=== PATIENT | male | born 1965 | race Caucasian/White ===

== ENCOUNTER → 2019-08-01 08:44 | Outpatient (CLI) | payer BC, OTHER, SELFPAY ==
--- NOTE | ~2019-08-01 | MR_ITS ---
EXAMINATION: MR thoracic spine wo con DATE: 08/01/2019 09:21 INDICATION: Thoracic back pain. TECHNIQUE: Magnetic resonance imaging (MRI) of the thoracic spine was performed without intravenous c ontrast. Sagittal localizer T1-weighted FSE of the cervical spine was obtained. Thoracic spine sequen brittney included sagittal T2-weighted FSE, sagittal T1-weighted FSE, sagittal T2-weighted FS FSE, and axi al T2-weighted FSE. COMPARISON: None FINDINGS: Bone alignment is normal. There are Schmorl's nodes from T7-T8 through T11-T12. There is mi ld chronic anterior wedging of T11 vertebral body. There is mildly decreased disc height at T5-T6 and T11-T12. At T2-T3, there is a right central protrusion with mild central canal stenosis. At T3-T4, t here is a left central protrusion with mild central canal stenosis. At T4-T5, there is a left central protrusion with mild central canal stenosis. At T5-T6, the disc is bulging with mild central canal s tenosis. At T6-T7, there is a left central protrusion with mild central canal stenosis. At T8-T9, the re is a left central extrusion with mild central canal stenosis. At T9-T10, there is a right central protrusion with mild central canal stenosis. There is multilevel facet joint osteoarthritis, moderate on the left from T2-T3 through T4-T5. There is multilevel mild neural foraminal stenosis bilaterally . The spinal cord signal intensity is normal. IMPRESSION: 1. Mild thoracic spondylosis. Reviewed, dictated and finalized at location A. CONDITIONING SPECIALIST
== END ==
PROVIDERS: PCP Internal Medicine
DX: M47.894 Other spondylosis, thoracic region (principal)
CPT/HCPCS: 72146

== ENCOUNTER 2023-02-27 13:03 | Outpatient (CLI) | payer OTHER, SELFPAY ==
--- NOTE | ~2023-02-27 | CT_ITS ---
EXAMINATION:CT diagnostic chest wo con DATE: 02/27/2023 13:37 INDICATION: Asbestosis exposure. TECHNIQUE: Computed tomography (CT) of the chest was performed without intravenous contrast. Automate d exposure control and iterative reconstruction technique were employed. The dose-length product (DLP ) was 223.72 mGy-cm. COMPARISON: None. FINDINGS: There is mild scarring at the lung apices. No pleural effusion. The heart size is normal. N o pericardial effusion. There is severe cervical spondylosis and mild thoracic spondylosis. IMPRESSION: 1. Mild scarring at the lung apices. Reviewed, dictated and finalized at location A.
== END 2023-02-27 13:04 | disposition home or self-care (01) ==
PROVIDERS: PCP Internal Medicine; Visit Provider Internal Medicine
DX: Z77.090 Contact with and (suspected) exposure to asbestos (principal)
CPT/HCPCS: 71250

== ENCOUNTER 2024-06-21 23:24 | Emergency (ER) | payer MEDICARE, OTHER, SELFPAY ==
[2024-06-21 23:28] VITALS: BP 172/96; PULSE 74; RESP 18; TEMP 36.3; O2SAT 99
--- NOTE | 2024-06-22 00:08 | ED.FALL ---
HPI - Fall General Chief Complaint: Fall Stated Complaint: fall Time Seen by Provider: 06/21/24 23:55 Source: patient Mode of arrival: ambulatory Limitations: no limitations History of Present Illness HPI Narrative: This is a 58-year-old male who presents to the ED for chief complaint of a fall that occurred this evening when leaving a wedding. Patient reports history of MS and has chronic gait instability with this. States that he stumbled on the gravel and fell face 1st. Reports laceration and swelling to the left superior eyebrow region but no LOC. Denies numbness, weakness, vision change, dizziness or any further sites of pain or injury. Does not take blood thinners. States tetanus is up-to-date Review of Systems Review of Systems: All systems as dictated in [facility] Social History Social History Smoking status: Never smoker Alcohol intake: never Exam Narrative: GENERAL: Well-appearing, well-nourished, and in no acute distress. HEAD: Normocephalic, atraumatic. EYES: PERRLA and EOMI. ENT: Nares clear, no rhinorrhea or epistaxis. Mucous membranes moist. Oropharynx without tonsillar hypertrophy exudate or other lesions. NECK: Supple. No adenopathy or masses. CHEST: No respiratory distress. Clear to auscultation. No wheezes rales or rhonchi HEART: Regular rate and rhythm. No murmur heard. Normal peripheral pulses. ABDOMEN: Soft, nontender, nondistended, normal active bowel sounds. MSK: Normal range of motion. No edema. SKIN: 1.5 cm laceration to the left superior eyebrow region. Bleeding controlled on arrival. NEURO: Alert and oriented x4. No focal deficits. PSYCH: Normal mood and affect. Course Vital Signs Vital signs: Vital Signs Temperature 97.3 F L 06/21/24 23:28 Pulse Rate 74 06/21/24 23:28 Respiratory Rate 18 06/21/24 23:28 Blood Pressure 172/96 H 06/21/24 23:28 Pulse Oximetry 99 06/21/24 23:28 Oxygen Delivery Room Air 06/21/24 23:28 Temperature 97.3 F L 06/21/24 23:28 Pulse Rate 74 06/21/24 23:28 Respiratory Rate 18 06/21/24 23:28 Blood Pressure 172/96 H 12/28/24 23:28 Pulse Oximetry 99 06/21/24 23:28 Oxygen Delivery Room Air 06/21/24 23:28 Procedures Laceration Laceration 1: Date: 06/22/24 Time: 00:23 Site: face Side (If applicable): left Size (cm): 1.5 Description: linear Depth: simple, single layer Local Anesthetic: none Pre-repair: wound explored, irrigated extensively and deep structures intact ====== Skin Level ====== Skin layer closed with: dermabond and steri strips Number of sutures: 2 ====== Subcutaneous Layer ====== ====== Muscle Layer ====== ====== Tendon Layer ====== MDM - Fall MDM Narrative Medical decision making narrative: This is a 58-year-old male who presents to the ED for chief complaint of laceration to the head with head injury today. Vitals show mildly elevated blood pressure but otherwise normal. Patient is requesting to avoid sutures today. The wound was well cleansed and irrigated here. His tetanus is up-to-date. Closed primarily with Steri-Strips and Dermabond. Patient will be discharged in stable condition. Supportive measures discussed and return precautions given. Patient is understanding and agreeable with plan for discharge with PCP follow-up. Discharge Plan Discharge Clinical Impression: Laceration of head Patient Disposition: Home, Self-Care Condition: Stable Instructions: Antibiotic Form, Laceration (ED) Additional Instructions: Keep wound clean and dry. Do not soak, take baths, or swim until wound is completely healed. If any signs of infection such as redness, swelling, increasing pain, drainage of purulent discharge, streaks up your extremity develop, seek medical attention immediately. Patient Language: Colombian Follow-up/Referrals: Kristie,Mick Camargo MD [Primary Care Provider] - Time of Disposition: 00:12
[2024-06-22 01:04] VITALS: BP 167/84; PULSE 71; RESP 16; TEMP 36.7; O2SAT 99
--- OUTSIDE RECORDS SUMMARY | 2024-06-29 00:10 | XMS_ITS | Encounter Summary ---
Author Organization [facility] Address [address] [place] [address]. [place], [place] [id number] [place] [id number] Care Team Providers Care Shearer Screen Measurer And Trimmer Name Role Phone Mick Flowers MD Primary Care Provider [phone] Reason for Referral * Imaging (Routine) - Closed Specialty Diagnoses / Procedures Referred By Christy elizabeth Referred To Contact RADIOLOGY Diagnoses Benign essential hypertension Mixed hyperlipidemia Procedures USV CAROTID DUPLEX JEFFERY USV CAROTID DUPLEX JEFFERY USV CAROTID DUPLEX JEFFERY Mick Flowers MD [address] [place] [id number] Phone: tel: fax: Referral ID Status Reason Start Date Expiration Date Visits Re quested Visits Authorized [id number] Closed 09/04/2023 09/03/2024 1 1 Reason for Visit * Imaging (Routine) - Closed Specialty Diagnoses / Procedures Referred By Contac glenn Referred To Contact RADIOLOGY Diagnoses Benign essential hypertension Mixed hyperlipidemia Procedures USV CAROTID DUPLEX JEFFERY USV CAROTID DUPLEX JEFFERY USV CAROTID DUPLEX JEFFERY Mick Flowers MD [address] [place] [id number] Phone: tel: fax: Referral ID Status Reason Start Date Expiration Date Visits Re quested Visits Authorized [id number] Closed 09/04/2023 09/03/2024 1 1 Encounter Details Date Type Department Care Team (Latest Contact Info) Description 09/18/2023 3:25 PM CDT - 09/18/2023 11:59 PM CDT Hospital Encounter [facility] [address] Mick Flowers MD [address] [place] [address] Discharge Disposition: Home or Self Care (Routine Discharge) Social History Tobacco Use Types Packs/Day Years Used Date Smoking Tobacco: Never Smokeless Tobacco: Never Alcohol Use Standard Drinks/Week Comments Yes 0 (1 standard drink = 0.6 oz pur e alcohol) couple drinks on the weeknd AUDIT-C Answer Date Recorded Frequency of Alcohol Consumption 4 or more times a week 10/07/2018 Average Number of Drinks 3 or 4 019 Frequency of Binge Drinking Weekly 09/23 PHQ-2 Answer Date Recorded Patient Health Questionnaire-2 Score 0 09/04/2023 Sex and Gender Information Value Date Recorded Sex Assigned at Male 10/07/2018 11:33 AM CDT Legal Sex Male 9:27 PM CDT Gender Identity Male 10/07/2018 11:33 AM CDT Sexual Orientation Straight 10/07/2018 11 :33 AM CDT documented as of this encounter Medications at Time of Discharge Alprostadil, Vasodilator, (EDEX) 20 MCG KitIndications:Erec tile dysfunction, unspecified erectile dysfunction type 1 mL by Intracavernosal route as needed. 10-30 minutes prior to intercourse 30 kit 1 3 famotidine (PEPCID) 20 MG tabletIndications:G astroesophageal reflux disease, unspecified whether esophagitis present Take 1 tablet (20 mg total) by mouth 2 (two) times daily. 180 tablet 3 3 hydroCHLOROthiazide (HYDRODIURIL) 25 MG tabletIndications:B enign essential hypertension take 1 tablet every morning 90 tablet 3 4 hyoscyamine 0.125 MG SL tablet DISSOLVE 1 TABLET UNDER THE TONGUE EVERY 6 HOURS NEEDED 1 Insulin Syringe-Needle U-100 (INSULIN SYRINGE .5CC/28G) 28G X 1/2 0.5 ML MiscIndications:Ere ctile dysfunction, unspecified erectile dysfunction type 1 Units by Other route as needed. 100 each 3 OnabotulinumtoxinA (BOTOX IJ)Indications:Over active Bladder Inject as directed every 6 (six) months. Indications: Overactive Bladder urea (CARMOL) 40 % CreamIndications:Ec zema APPLY AND RUB IN A THIN FILM TO AFFECTED AREA(S) DAILY. 198.4 g 5 3 ALPRAZolam (XANAX) 0.5 MG tabletIndications:A nxiety TAKE 1 TABLET THREE TIMES A DAY NEEDED 60 tablet 4 10/05/19 24 amitriptyline (ELAVIL) 25 MG tabletIndications:T horacic spondylosis Take 1 tablet (25 mg total) by mouth 2 (two) times a day. 180 tablet 3 3 11/12/19 24 atorvastatin (LIPITOR) 40 MG tabletIndications:M ixed hyperlipidemia Take 1 tablet (40 mg total) by mouth nightly at bedtime. 90 tablet 3 3 10/15/19 24 felodipine ER (PLENDIL) 5 MG 24 hr tabletIndications:B enign essential hypertension Take 2 tablets (10 mg total) by mouth daily. 180 tablet 3 3 11/05/19 24 potassium chloride CR (K-TAB) 20 MEQ tabletIndications:E susan Take 1 tablet (20 mEq total) by mouth daily. 90 tablet 3 3 10/05/19 24 valsartan (DIOVAN) 320 MG tabletIndications:B enign essential hypertension TAKE 1 TABLET(320 MG) BY MOUTH DAILY 90 tablet 3 3 11/12/19 24 documented as of this encounter Progress Notes * Mick Flowers MD - 09/18/2023 4:00 PM CDT Minimal narrowing, not clinically significant. No further testing necessary. documented in this encounter Plan of Treatment Upcoming Encounters Date Type Department Care Team (Late st Contact Info) Description 09/09/2024 10:00 AM CDT Office Visit [facility] [address] [phone] Mick Flowers MD [address] [place] [address] documented as of this encounter Procedures Procedure Name Priority Date/Time Associated Diagnosis Comments USV CAROTID DUPLEX JEFFERY Routine 09/18/2023 3:47 PM CDT Benign essential hypertension Mixed hyperlipidemia documented in this encounter Results * USV CAROTID DUPLEX JEFFERY (09/18/2023 3:47 PM CDT) Anatomical Region Laterality Modality Neck Vascular Ultraso und 09/18/2023 3:32 PM CDT Narrative 09/18/2023 4:06 PM CDT ?CAROTID ARTERY DUPLEX IMAGING ? VASCULAR LAB Pat.Name: ??MARITA EMERY ?Pat.ID: ?[id number] ? St.Date: ?? 09/18/2023 ? Exam Time: 3:32:00 PM ? Study Type:KAMAR VS Duplex Carotid BIDOB ??Age: ??1965,57Y ? Sex: ? M ? Sonogrphr: KADE Aponte ? Pat. Stat.:Outpatient ? History / Clinical:HTN; PMH- colon CA, HLD, no prior Procedures: Vega scale, Color Doppler imaging, Doppler Spectral Analysis Race: ?W ? ++++++++++++++++++++++++++++++++++++ SUMMARY: ++++++++++++++++++++++++++++++++++++ Lovely ICA Stenosis Criteria: ?? >50% = PSV >160 and/or Ratio 2.0-4.0; ? >70% = PSV >325 and/or Ratio >4.0; ? >80% = PSV >325 with EDV >140 ? (for CCA, ECA, Subc: ?? >50% = PSV >200, Ratio >2.0; ?? for Vert: ??>50% = PSV >150, Ratio >2.2) ? STENT Criteria: ??>50% = PSV >220 and/or Ratio >2.7; ? >80% = PSV >340 and/or Ratio >4.1 Brachial waveforms are symmetrical bilaterally, with triphasic flow. The right subclavian artery is not assessed. ??The left subclavian artery is not assessed. Right side: ??The right bifurcation-internal carotid artery has minor, heterogeneous plaque. ??Internal carotid maximum velocity is 84 cm/s, with a ratio of 0.988 . ??The common carotid artery has no plaque present. ??The external carotid artery has no plaque proximally. Vertebral artery flow is antegrade. ??No defined ulceration noted. Left side: ??The left bifurcation-internal carotid artery has mild, heterogeneous plaque. ??Internal carotid maximum velocity is 72 cm/s , with a ratio of 0.935 . ??The common carotid artery has no plaque present. ??The external carotid artery has minor plaque proximally. Vertebral artery flow is antegrade. ??No defined ulceration noted. CONCLUSION: The right internal carotid shows 1-49% stenosis. ??Right vertebral artery is antegrade. ?? No evidence of ulceration. The left internal carotid shows 1-49% stenosis. ??Left vertebral artery is antegrade. ?? No evidence of ulceration. Recommend follow up PRN, at physician discretion.. ?? ++++++++++++++++++++++++++++++++++++ MEASUREMENTS: ++++++++++++++++++++++++++++++++++++ ?DOPPLER Right Prox CCA ?? Prox CCA PSV ? 101 cm/s ? Right Dist CCA ?? Dist CCA PSV ?85 cm/s ? Right Prox ICA ?? Prox ICA PSV ?84 cm/s ? Right Mid ICA ?? Mid ICA PSV ? 76 cm/s ? Right Dist ICA ?? Dist ICA PSV ?62 cm/s ? Right Prox ECA ?? Prox ECA PSV ?71 cm/s ? Right Vertebral ?? Vertebral PSV ? 34 cm/s ? Right ICA/CCA RATIO ?? ICA/CCA RATIO P 0.988 ? Left Prox CCA ?? Prox CCA PSV ? 114 cm/s ? Left Dist CCA ?? Dist CCA PSV ?77 cm/s ? Left Prox ICA ?? Prox ICA PSV ?51 cm/s ? Left Mid ICA ?? Mid ICA PSV ? 72 cm/s ? Left Dist ICA ?? Dist ICA PSV ?56 cm/s ? Left Prox ECA ?? Prox ECA PSV ?52 cm/s ? Left Vertebral ?? Vertebral PSV ? 52 cm/s ? Left ICA/CCA RATIO ?? ICA/CCA RATIO P 0.935 ? <Electronic Signature> 09/18/2023 04:06 PM Cole Panda M.D. Procedure Note Cole Panda MD - 09/18/2023 CAROTID ARTERY DUPLEX IMAGING VASCULAR LAB Pat.Name: MARITA EMERY Pat.ID: [id number] .Date: 09/18/2023 Exam Time: 3:32:00 PM Study Type:KAMAR VS Duplex Carotid BIDOB Age: 3 1965,57Y Sex: M Sonogrphr: KADE Aponte Pat. Stat.:Outpatient History / Clinical:HTN; PMH- colon CA, HLD, no prior Procedures: Vega scale, Color Doppler imaging, Doppler Spectral Analysis Race: W ++++++++++++++++++++++++++++++++++++ SUMMARY: ++++++++++++++++++++++++++++++++++++ Lovely ICA Stenosis Criteria: >50% = PSV >160 and/or Ratio 2.0-4.0; >70% = PSV >325 and/or Ratio >4.0; >80% = PSV >325 with EDV >140 (for CCA, ECA, Subc: >50% = PSV >200, Ratio >2.0; for Vert: >50% = PSV >150, Ratio >2.2) STENT Criteria: >50% = PSV >220 and/or Ratio >2.7; >80% = PSV >340 and/or Ratio >4.1 Brachial waveforms are symmetrical bilaterally, with triphasic flow. The right subclavian artery is not assessed. The left subclavian artery is not assessed. Right side: The right bifurcation-internal carotid artery has minor, heterogeneous plaque. Internal carotid maximum velocity is 84 cm/s, with a ratio of 0.988 . The common carotid artery has no plaque present. The external carotid artery has no plaque proximally. Vertebral artery flow is antegrade. No defined ulceration noted. Left side: The left bifurcation-internal carotid artery has mild, heterogeneous plaque. Internal carotid maximum velocity is 72 cm/s , with a ratio of 0.935 . The common carotid artery has no plaque present. The external carotid artery has minor plaque proximally. Vertebral artery flow is antegrade. No defined ulceration noted. CONCLUSION: The right internal carotid shows 1-49% stenosis. Right vertebral artery is antegrade. No evidence of ulceration. The left internal carotid shows 1-49% stenosis. Left vertebral artery is antegrade. No evidence of ulceration. Recommend follow up PRN, at physician discretion.. ++++++++++++++++++++++++++++++++++++ MEASUREMENTS: ++++++++++++++++++++++++++++++++++++ DOPPLER Right Prox CCA Prox CCA PSV 101 cm/s Right Dist CCA Dist CCA PSV 85 cm/s Right Prox ICA Prox ICA PSV 84 cm/s Right Mid ICA Mid ICA PSV 76 cm/s Right Dist ICA Dist ICA PSV 62 cm/s Right Prox ECA Prox ECA PSV 71 cm/s Right Vertebral Vertebral PSV 34 cm/s Right ICA/CCA RATIO ICA/CCA RATIO P 0.988 Left Prox CCA Prox CCA PSV 114 cm/s Left Dist CCA Dist CCA PSV 77 cm/s Left Prox ICA Prox ICA PSV 51 cm/s Left Mid ICA Mid ICA PSV 72 cm/s Left Dist ICA Dist ICA PSV 56 cm/s Left Prox ECA Prox ECA PSV 52 cm/s Left Vertebral Vertebral PSV 52 cm/s Left ICA/CCA RATIO ICA/CCA RATIO P 0.935 <Electronic Signature> 09/18/2023 04:06 PM Cole Panda, M.D. Mick Flowers MD VAS Final Result documented in this encounter Visit Diagnoses Diagnosis Benign essential hypertension Essential hypertension, benign Mixed hyperlipidemia documented in this encounter Additional Health Concerns Assessment Noted Time PHQ-9 Depression Total Score: 0 04/28/20 21 11:07 AM CDT documented as of this encounter Care Teams Shearer Screen Measurer And Trimmer Relationship Specialty Start Date End Date Mick Flowers MD [address] [place] [address] PCP - General 10/15/14 documented as of this encounter
--- OUTSIDE RECORDS SUMMARY | 2024-06-29 00:10 | XMS_ITS | Encounter Summary ---
Author Organization [facility] Address [address] [place] [address]. [place], [place] [address] [place] [address] Care Team Providers Care Paid Search Specialist Name Role Phone Mick Flowers MD Primary Care Provider [phone] Reason for Referral * Imaging (Routine) - Closed Specialty Diagnoses / Procedures Referred By Contac t Referred To Contact RADIOLOGY Diagnoses Healthcare maintenance Procedures CT HEART DIAG CALCIUM SCORE Mick Flowers MD [address] [place] [address] Phone: tel: fax: Referral ID Status Reason Start Date Expiration Date Visits Re quested Visits Authorized [id number] Closed 04/25/2023 05/25/2024 1 1 R FOAM RUBBER Reason for Visit * Imaging (Routine) - Closed Specialty Diagnoses / Procedures Referred By Contac t Referred To Contact RADIOLOGY Diagnoses Healthcare maintenance Procedures CT HEART DIAG CALCIUM SCORE Mick Flowers MD [address] [place] [address] Phone: tel: fax: Referral ID Status Reason Start Date Expiration Date Visits Re quested Visits Authorized [id number] Closed 04/25/2023 05/25/2024 1 1 Encounter Details Date Type Department Care Team (Latest Contact Info) Description 05/30/2023 9:57 AM CURER FOAM RUBBER - 05/30/2023 11:59 PM CURER FOAM RUBBER Hospital Encounter [place] [address] [place] [address] Mick Flowers MD [address] [place] [address] Discharge Disposition: Home or Self Care (Routine [...] Date Recorded Patient Health Questionnaire-2 Score 0 08/29/2022 Sex and Gender Information Value Date Recorded [...] (two) times daily. 180 tablet 3 3 hyoscyamine 0.125 MG SL tablet DISSOLVE 1 [...] THREE TIMES A DAY NEEDED 60 tablet 3 06/11/20 23 amitriptyline (ELAVIL) 25 MG tabletIndications:T horacic spondylosis [...] daily. 180 tablet 3 3 11/05/19 24 hydroCHLOROthiazide (HYDRODIURIL) 25 MG tabletIndications:B enign essential hypertension Take 1 tablet (25 mg total) by mouth every morning. 90 tablet 3 3 09/13/19 24 potassium chloride CR (K-TAB) 20 MEQ tabletIndications:E susan Take 1 tablet (20 mEq total) by mouth daily. 90 tablet 3 3 10/05/19 24 valsartan (DIOVAN) 320 MG tabletIndications:B enign essential hypertension TAKE 1 TABLET(320 MG) BY MOUTH DAILY 90 tablet 3 3 11/12/19 24 documented as of this encounter Progress Notes * Mick Flowers MD - 05/30/2023 10:[address] shows minimal coronary calcifications. Recommend low fat diet and regular exercise. R FOAM RUBBER documented in this encounter Plan of Treatment Upcoming Encounters Date Type Department Care Team (Late st Contact Info) Description 09/09/2024 10:00 AM CDT Office Visit [facility] Medical Group Family & Internal Medicine - [address] [address] Mick Flowers MD [address] [place] [address] documented as of this encounter Procedures Procedure Name Priority Date/Time Associated Diagnosis Comments CT HEART DIAG CALCIUM SCORE Routine 05/30/2023 10:09 AM CURER FOAM RUBBER Healthcare maintenance documented in this encounter Results * CT HEART DIAG CALCIUM SCORE (05/30/2023 10:09 AM CURER FOAM RUBBER) Anatomical Region Laterality Modality Computed Tomogra phy 05/30/2023 3:39 PM CURER FOAM RUBBER Impressions 05/30/2023 3:40 PM CURER FOAM RUBBER =====IMPRESSION:===== Total Score: 7.5 Minimal plaque, low risk, unlikely probability of significant CAD. Ordered By: MICK FLOWERS Interpreted By: Alex Kirby MD, 05/30/2023 3:39 PM Narrative 05/30/2023 3:40 PM CURER FOAM RUBBER EXAMINATION: Multislice Helical CT Coronary Calcium Scoring EXAM DATE/TIME: 05/30/2023 3:20 PM REASON FOR EXAM: ??Screening for heart disease ?? COMPARISON: None TECHNIQUE: ??Multislice helical CT images of the proximal coronary arteries with a computer generated calcification score. A dose lowering technique was used for this procedure, which may include, but is not limited to, dose reduction technique, automated exposure control, iterative reconstruction, ALARA (As Low As Reasonably Achievable), or Image Gently techniques. Results: Left main: 0 ?LAD: 2.9 Circumflex: 0 ? Right coronary: 4.6 ?? Total Score: 7.5 ? Comments: There is no mediastinal adenopathy, and there are no pulmonary nodules in the visualized portions of the chest. Calcium score guidelines: Total Score* Calcium Plaque [place] ??*Risk ?*Probability of significant CAD 0 ?No Plaque ?Very Low ? Very unlikely 1-10 ?Minimal Plaque ? Low ?Unlikely 11-100 ?Mild Plaque ?Moderate ? Low likelihood of significant ? stenosis <50% ? 101-400 ? Moderate Plaque ?Moderately High ?Moderate likelihood of ? significant stenosis (>50%) Over 400 ?Extensive Plaque ? High ?High likelihood of ?significant stenosis (>50%) The amount of coronary artery calcification correlates with the severity of coronary atherosclerosis and the probability of future significant event. Calcification is not site specific for stenosis and does not identify non-calcified atherosclerotic plaque, but rather indicates the extent of atherosclerosis in the coronary arteries overall. The score may be used as an indicator for risk factor modification or additional cardiac testing. Significant change in calcium score over time may be indicative of subsequent disease development or useful as a benchmark to assess preventative programs. Procedure Note Alex Kirby MD - 05/30/2023 EXAMINATION: Multislice Helical CT Coronary Calcium Scoring EXAM DATE/TIME: 05/30/2023 3:20 PM REASON FOR EXAM: Screening for heart disease COMPARISON: None TECHNIQUE: Multislice helical CT images of the proximal coronary arterieswith a computer generated calcification score. A dose lowering techniquewas used for this procedure, which may include, but is not limited to,dose reduction technique, automated exposure control, iterativereconstruction, ALARA (As Low As Reasonably Achievable), or Image Gentlytechniques. Results: Left main: 0 LAD: 2.9 Circumflex: 0 Right coronary: 4.6 Total Score: 7.5 Comments: There is no mediastinal adenopathy, and there are no pulmonarynodules in the visualized portions of the chest. Calcium score guidelines: Total Score* Calcium Plaque [place] *Risk *Probability ofsignificant CAD 0 No Plaque Very LowVery unlikely 1-10 Minimal Plaque LowUnlikely 11-100 Mild Plaque ModerateLow likelihood of significant stenosis <50% 101-400 Moderate Plaque Moderately HighModerate likelihood of significant stenosis (>50%) Over 400 Extensive Plaque HighHigh likelihood of significant stenosis (>50%) The amount of coronary artery calcification correlates with the severityof coronary atherosclerosis and the probability of future significantevent. Calcification is not site specific for stenosis and does not identify non- calcifiedatherosclerotic plaque, but rather indicates the extent of atherosclerosisin the coronary arteries overall. The score may be used as an indicator for risk factor modification oradditional cardiac testing. Significant change in calcium score over timemay be indicative of subsequent disease development or useful as a benchmark to assess preventativeprograms. =====IMPRESSION:===== Total Score: 7.5 Minimal plaque, low risk, unlikely probability ofsignificant CAD. Ordered By: MICK FLOWERS Interpreted By: Alex Kirby MD, 05/30/2023 3:39 PM us Mick Flowers MD CT Final Result documented in this encounter Visit Diagnoses Diagnosis Healthcare maintenance Routine general medical examination at a health care facility documented in this encounter Additional Health Concerns Assessment Noted Time PHQ-9 Depression Total Score: 0 04/28/20 21 11:07 AM CDT documented as of this encounter Care Teams Paid Search Specialist Relationship Specialty Start Date End Date Mick Flowers MD [address] [place] [address] PCP - General 10/15/14 documented as of this encounter
--- OUTSIDE RECORDS SUMMARY | 2024-06-29 00:10 | XMS_ITS | Encounter Summary ---
Author Organization [facility] Address [address] [place] [address]. [place], [place] [address] [place] [address] Care Team Providers Care Online Activist Name Role Phone Mick Flowers MD Primary Care Provider [phone] Encounter Details Date Type Department Care Team (Latest Contact Info) Description 09/04/2023 Travel Social History Tobacco Use Types Packs/Day Years [...] AM CDT documented as of this encounter Plan of Treatment Upcoming Encounters Date Type Department Care Team (Late st Contact Info) Description 09/09/2024 10:00 AM CDT Office Visit [facility] Medical Group Family & Internal Medicine - [address] [phone] Mick Flowers MD [address] [place] [address] [phone] documented as of this encounter Visit Diagnoses Not on filedocumented in this encounter Additional Health Concerns Assessment Noted Time PHQ-9 Depression Total Score: 0 04/28/20 21 11:07 AM CDT documented as of this encounter Care Teams Online Activist Relationship Specialty Start Date End Date Mick Flowers MD [address] [place] [address] PCP - General 10/15/14 documented as of this encounter
--- OUTSIDE RECORDS SUMMARY | 2024-06-29 00:10 | XMS_ITS | Encounter Summary ---
Author Organization [facility] Address [address] [place] [address]. [place], [place] [address] [place] [address] Care Team Providers Care Community Development Specialist Name Role Phone Mick Flowers MD Primary Care Provider [phone] Reason for Visit * Reason Onset Date Comments Radiology Results 03/16/2023 Encounter Details Date Type Department Care Team (Late st Contact Info) Description 03/16/2023 Telephone [facility] Medical Group Family & Internal Medicine [facility] [address] [place] [address] Mick Flowers MD [address] [place] [address] [phone] Radiology Results Social History Tobacco Use Types Packs/Day Years [...] AM CDT documented as of this encounter Progress Notes * Gela Solo MA - 03/21/2023 8:52 AM CDT Patient informed and v/u of information. * Mick Flowers MD - 03/16/2023 10:15 AM CDT Uncertain as to the etiology of the lung scarring. Asbestos typically will cause scarring in the bases of the lungs, this is in the apices (top). Asbestos also causes pleural plaques, which is not inthe lungs. * Gela Solo MA - 03/16/2023 8:34 AM CDT Patient informed and v/u of information. He saw the report and is wondering what would be the causeof the scarring in his lungs. He has never been a smoker. * Gela Solo MA - 03/16/2023 8:31 AM CDT Date of Service: 02/27/2023 Location: [facility] Procedure: CT diagnostic chest wo con Indication: Asbestosis exposure Impression: 1. Mild scarring at the lung apices. Provider recommendation: No evidence of asbestosis. documented in this encounter Plan of Treatment Upcoming Encounters Date Type Department Care Team (Late st Contact Info) Description 09/09/2024 10:00 AM CDT Office Visit [facility] Medical Group Family & Internal Medicine - [place] [address] [place] [phone] Mick Flowers MD [facility] [place] [address] documented as of this encounter Visit Diagnoses Not on filedocumented in this encounter Additional Health Concerns Assessment Noted Time PHQ-9 Depression Total Score: 0 04/28/20 21 11:07 AM CDT documented as of this encounter Care Teams Community Development Specialist Relationship Specialty Start Date End Date Mick Flowers MD [address] [place] [address] PCP - General 10/15/14 documented as of this encounter
--- OUTSIDE RECORDS SUMMARY | 2024-06-29 00:10 | XMS_ITS | Encounter Summary ---
Author Organization [facility] Address [address] [place] [address]. [place], [place] [address] [place] [address] Care Team Providers Care Bee Breeder Name Role Phone Mick Flowers MD Primary Care Provider [phone] Reason for Visit * Reason Onset Date Comments Results 06/06/2023 Encounter Details Date Type Department Care Team (Late st Contact Info) Description 06/06/2023 Telephone [facility] Medical Group Family & Internal Medicine [place] [phone] [place] [address] Mick Flowers MD [address] [place] [address] [phone] Results Social History Tobacco Use Types Packs/Day [...] as of this encounter Progress Notes * Josi Hassan MA - 06/06/2023 9:09 AM CST Patient informed and voiced understanding tn ER WORKER * Josi Hassan MA - 06/06/2023 9:08 AM CST ----- Message from Mick Flowers MD sent at 06/04/2023 9:47 PM FILTER WORKER ----- CT shows minimal coronary calcifications. Recommend low fat diet and regular exercise. ER WORKER documented in this encounter Plan of Treatment Upcoming Encounters Date Type Department Care Team (Late st Contact Info) Description 09/09/2024 10:00 AM CDT Office Visit [facility] Medical Group Family & Internal Medicine [address] [address] Mick Flowers MD [address] [place] [address] documented as of this encounter Visit Diagnoses Not on filedocumented in this encounter Additional Health Concerns Assessment Noted Time PHQ-9 Depression Total Score: 0 04/28/20 21 11:07 AM CDT documented as of this encounter Care Teams Bee Breeder Relationship Specialty Start Date End Date Mick Flowers MD [address] [place] [address] PCP - General 10/15/14 documented as of this encounter
--- OUTSIDE RECORDS SUMMARY | 2024-06-29 00:10 | XMS_ITS | Encounter Summary ---
Author Organization [facility] Address [address] [place] [address]. [place], [place] [address] [place] [address] Care Team Providers Care Distance Education Coordinator Name Role Phone Mick Flowers MD Primary Care Provider [phone] Reason for Visit * Reason Onset Date Comments Other 11/06/2022 Encounter Details Date Type Department Care Team (Late st Contact Info) Description 11/06/2022 Telephone [facility] Medical Group Family & Internal Medicine [place] [phone] [place] [address] Mick Flowers MD [address] [place] [address] [phone] Other Social History Tobacco Use Types Packs/Day Years [...] Progress Notes * Gela Solo MA - 11/24/2022 9:37 AM CDT LM informing patient Dr. Flowers protion is complete. * Mick Flowers MD - 11/23/2022 5:29 PM CDT My portion is now done. * Susan Muhammad - 11/23/2022 10:52 AM CDT Pt. Called about paperwork needs at ETA. Please call * Gela Solo MA - 11/13/2022 1:29 PM CDT Patient informed and v/u of information. Patient is concerned that he is now out of his medication,this MA recommended patient continue to by from dispensary until his paperwork is finalized. Patient asking that he be called when this is done. * Gela Solo MA - 11/13/2022 12:34 PM CDT This MA left voicemail for patient to return call to office 11/13/[address] Flowers already, this will need to wait until he come back because no other providers can approve this. * Zenia Meyers - 11/13/2022 8:49 AM CDT He is calling again about his paperwork for the marijuana, he needs this sent in. It expires today.Please give him a call and let him know. * Salina Menchaca - 11/06/2022 11:45 AM CDT Patient is needing to renew his medical marijuana. Asking if we can send over a renewal to the state so that he can renew his. documented in this encounter Plan of Treatment Upcoming Encounters Date Type Department Care Team (Late st Contact Info) Description 09/09/2024 10:00 AM CDT Office Visit [facility] Medical Group Family & Internal Medicine - [address] [phone] Mick Flowers MD [address] [place] [address] documented as of this encounter Visit Diagnoses Not on filedocumented in this encounter Additional Health Concerns Assessment Noted Time PHQ-9 Depression Total Score: 0 04/28/20 21 11:07 AM CDT documented as of this encounter Care Teams Distance Education Coordinator Relationship Specialty Start Date End Date Mick Flowers MD [address] [place] [address] PCP - General 10/15/14 documented as of this encounter
--- OUTSIDE RECORDS SUMMARY | 2024-06-29 00:10 | XMS_ITS | Encounter Summary ---
Author Organization [facility] Address [address] [place] [address]. [place], [place] [address] [place] [address] Care Team Providers Care Commercial Instructor Supervisor Name Role Phone Mick Flowers MD Primary Care Provider [phone] Encounter Details Date Type Department Care Team (Latest Contact Info) Description 08/29/2022 Travel Social History Tobacco Use Types Packs/Day [...] Orientation Straight 10/07/2018 11 :33 AM CDT COVID-19 Exposure Response Date Recorded In the last 10 days, have yo u been in contact with someone who was confirmed or suspected to have Coronavirus/COVID-19? No / Unsure 08/29/2022 10:21 AM SALES APPRENTICE documented as of this encounter Plan of Treatment Upcoming Encounters Date Type Department Care Team (Late st Contact Info) Description 09/09/2024 10:00 AM CDT Office Visit [facility] Medical Group Family & Internal Medicine [address] [phone] Mick Flowers MD [address] [place] [address] documented as of this encounter Visit Diagnoses Not on filedocumented in this encounter Additional Health Concerns Assessment Noted Time PHQ-9 Depression Total Score: 0 04/28/20 21 11:07 AM CDT documented as of this encounter Care Teams Commercial Instructor Supervisor Relationship Specialty Start Date End Date Mick Flowers MD [address] [place] [address] PCP - General 10/15/14 documented as of this encounter
--- OUTSIDE RECORDS SUMMARY | 2024-06-29 00:10 | XMS_ITS | Encounter Summary ---
Author Organization [facility] Address [address] [place] [address]. [place], [place] [address] [place] [address] Care Team Providers Care Car Hostler Name Role Phone Mick Flowers MD Primary Care Provider [phone] Reason for Visit * Reason Onset Date Comments Radiology Results 09/19/2023 Carotid artery duplex Encounter Details Date Type Department Care Team (Late st Contact Info) Description 09/19/2023 Telephone [facility] Medical Group Family & Internal Medicine [place] [phone] [place] [address] Mick Flowers MD [facility] [place], [place] [phone] Radiology Results (Carotid artery duplex) Social History Tobacco Use Types Packs/Day Years [...] Progress Notes * Gela Solo MA - 09/19/2023 3:14 PM CDT Patient informed and v/u of results. Patient has no questions or concerns at this time. * Gela Solo MA - 09/19/2023 3:13 PM CDT ----- Message from Mick Flowers MD sent at 09/18/2023 10:05 PM CDT ----- Minimal narrowing, not clinically significant. No further testing necessary. documented in this encounter Plan of Treatment Upcoming Encounters Date Type Department Care Team (Late st Contact Info) Description 09/09/2024 10:00 AM CDT Office Visit [facility] Medical Group Family & Internal Medicine [address] [address] Mick Flowers MD [address] [place] [address] documented as of this encounter Visit Diagnoses Not on filedocumented in this encounter Additional Health Concerns Assessment Noted Time PHQ-9 Depression Total Score: 0 04/28/20 21 11:07 AM CDT documented as of this encounter Care Teams Car Hostler Relationship Specialty Start Date End Date Mick Flowers MD [address] [place] [address] PCP - General 10/15/14 documented as of this encounter
--- OUTSIDE RECORDS SUMMARY | 2024-06-29 00:10 | XMS_ITS | Encounter Summary ---
Author Organization [facility] Address [address] [place] [address]. [place], [place] [address] [place] [address] Care Team Providers Care Hedge Fund Accountant Name Role Phone Mick Flowers MD Primary Care Provider [phone] Encounter Details Date Type Department Care Team (Latest Contact Info) Description 03/28/2022 Travel Social History Tobacco Use Types Packs/Day Years Used Date Smoking Tobacco: Never Smokeless Tobacco: Never Alcohol Use Standard Drinks/Week Comments Yes 0 (1 standard drink = 0.6 oz pur e alcohol) [place] 4 oz every night AUDIT-C Answer Date Recorded Frequency of Alcohol Consumption 4 or more times a week 10/07/2018 Average Number of Drinks 3 or 4 019 Frequency of Binge Drinking Weekly 09/23 PHQ-2 Answer Date Recorded PHQ-2 Score - If the patient scores above 3, please move on to questions 3-9 0 10/06/2021 Sex and Gender Information Value Date Recorded [...] suspected to have Coronavirus/COVID-19? No / Unsure 03/28/2022 9:51 AM CDT documented as of this encounter Plan of Treatment Upcoming Encounters Date Type Department Care Team (Late st Contact Info) Description 09/09/2024 10:00 AM CDT Office Visit [facility] Medical Group Family & Internal Medicine [address] [address] Mick Flowers MD [address] [place] [address] documented as of this encounter Visit Diagnoses Not on filedocumented in this encounter Additional Health Concerns Assessment Noted Time PHQ-9 Depression Total Score: 0 04/28/20 21 11:07 AM CDT documented as of this encounter Care Teams Hedge Fund Accountant Relationship Specialty Start Date End Date Mick Flowers MD [address] [place] [address] PCP - General 10/15/14 documented as of this encounter
--- OUTSIDE RECORDS SUMMARY | 2024-06-29 00:10 | XMS_ITS | Encounter Summary ---
Author Organization [facility] Address [address] [place] [address]. [place], [place] [address] [place] [address] Care Team Providers Care Insurance Loss Control Surveyor Name Role Phone Mick Flowers MD Primary Care Provider [phone] Reason for Visit * Reason Onset Date Comments Blood Pressure 07/19/2022 Encounter Details Date Type Department Care Team (Late st Contact Info) Description 07/19/2022 Telephone [facility] Medical Group Family & Internal Medicine [facility] [address] [place] [address] Mick Flowers MD [facility] [place], [place] [phone] Blood Pressure Social History Tobacco Use Types Packs/Day Years Used Date Smoking Tobacco: Never Smokeless Tobacco: Never Alcohol Use Standard Drinks/Week Comments Yes 0 (1 standard drink = 0.6 oz pur e alcohol) [place] 4 oz every night AUDIT-C Answer Date [...] Progress Notes * Gela Solo MA - 07/19/2022 3:37 PM CST Received a note from patient c/o elevated BP. Per Dr. Flowers, increase Valsartan to 320mg daily.Make F/u appt in 1 month. Patient f/u of instruction. New rx sent to pharmacy. ORT SERVICES REP documented in this encounter Plan of Treatment Upcoming Encounters Date Type Department Care Team (Late st Contact Info) Description 09/09/2024 10:00 AM CDT Office Visit [facility] Medical Group Family & Internal Medicine [address] [phone] Mick Flowers MD [address] [place] [address] documented as of this encounter Visit Diagnoses Diagnosis Benign essential hypertension- Primary Essential hypertension, benign documented in this encounter Additional Health Concerns Assessment Noted Time PHQ-9 Depression Total Score: 0 04/28/20 21 11:07 AM CDT documented as of this encounter Care Teams Insurance Loss Control Surveyor Relationship Specialty Start Date End Date Mick Flowers MD [address] [place] [address] PCP - General 10/15/14 documented as of this encounter
--- OUTSIDE RECORDS SUMMARY | 2024-06-29 00:10 | XMS_ITS | Encounter Summary ---
Author Organization [facility] Address [address] [place] [address]. [place], [place] [address] [place] [address] Care Team Providers Care Ranch Hand Livestock Name Role Phone Mick Flowers MD Primary Care Provider [phone] Reason for Visit * Reason Comments CT (SCAN) Encounter Details Date Type Department Care Team (Latest Contact Info) Description 02/27/2023 Scan [facility] HEALTH INFO SRVCS Scanned, Doc Med Group CT (SCAN) Social History Tobacco Use Types Packs/Day Years [...] Description 09/09/2024 10:00 AM CDT Office Visit [facility] Medical Group Family & Internal Medicine [address] [phone] Mick Flowers MD [address] [place] [address] documented as of this encounter Procedures Procedure Name Priority Date/Time Associated Diagnosis Comments CT GENERIC 02/27/2023 documented in this encounter Results * CT GENERIC (02/27/2023) Anatomical Region Laterality Modality Other 02/27/2023 us Doc Med Group Scanned SCANNING Final Resu lt documented in this encounter Visit Diagnoses Not on filedocumented in this encounter Additional Health Concerns Assessment Noted Time PHQ-9 Depression Total Score: 0 04/28/20 21 11:07 AM CDT documented as of this encounter Care Teams Ranch Hand Livestock Relationship Specialty Start Date End Date Mick Flowers MD [address] [place] [address] PCP - General 10/15/14 documented as of this encounter
--- OUTSIDE RECORDS SUMMARY | 2024-06-29 00:10 | XMS_ITS | Encounter Summary ---
Author Organization [facility] Address [address] [place] [address]. [place], [place] [address] [place] [address] Care Team Providers Care Banquet Prep Cook Name Role Phone Mick Flowers MD Primary Care Provider [phone] Encounter Details Date Type Department Care Team (Latest Contact Info) Description 06/11/2024 Scan HEALTH INFO SRVCS Scanned, Doc Med Group Social History Tobacco Use Types Packs/Day Years [...] 09/09/2024 10:00 AM CDT Office Visit [facility] Medical Group Family & Internal Medicine [address] [phone] Mick Flowers MD [address] [place] [address] [phone] documented as of this encounter Visit Diagnoses Not on filedocumented in this encounter Additional Health Concerns Assessment Noted Time PHQ-9 Depression Total Score: 0 04/28/20 21 11:07 AM CDT documented as of this encounter Care Teams Banquet Prep Cook Relationship Specialty Start Date End Date Mick Flowers MD [address] [place] [address] PCP - General 10/15/14 documented as of this encounter
--- OUTSIDE RECORDS SUMMARY | 2024-06-29 00:10 | XMS_ITS | Encounter Summary ---
Author Organization [facility] Address [address] [place] [address]. [place], [place] [address] [place] [address] Care Team Providers Care Nuclear Logging Engineer Name Role Phone Mick Flowers MD Primary Care Provider [phone] Reason for Visit * Reason Onset Date Comments Results 05/23/2023 Encounter Details Date Type Department Care Team (Late st Contact Info) Description 05/23/2023 Telephone [facility] Medical Group Family & Internal Medicine [phone] [place] [address] Mick Flowers MD [address] [place] [address] [phone] Results Social History Tobacco Use Types Packs/Day [...] as of this encounter Progress Notes * Kanchan Zuñiga MA - 05/23/2023 10:47 AM CST Autospritet message sent 05/23/23 WEB USER INTERFACE DEVELOPER * Kanchan Zuñiga MA - 05/23/2023 10:46 AM CST ----- Message from Mick Flowers MD sent at 05/23/2023 7:18 AM JAVA WEB USER INTERFACE DEVELOPER ----- Labs are good. WEB USER INTERFACE DEVELOPER documented in this encounter Plan of Treatment Upcoming Encounters Date Type Department Care Team (Late st Contact Info) Description 09/09/2024 10:00 AM CDT Office Visit [facility] Medical Group Family & Internal Medicine [address] [phone] Mick Flowers MD [address] [place] [address] documented as of this encounter Visit Diagnoses Not on filedocumented in this encounter Additional Health Concerns Assessment Noted Time PHQ-9 Depression Total Score: 0 04/28/20 21 11:07 AM CDT documented as of this encounter Care Teams Nuclear Logging Engineer Relationship Specialty Start Date End Date Mick Flowers MD [address] [place] [address] PCP - General 10/15/14 documented as of this encounter
--- OUTSIDE RECORDS SUMMARY | 2024-06-29 00:10 | XMS_ITS | Encounter Summary ---
Author Organization [facility] Address [address] [place] [address]. [place], [place] [address] [place] [address] Care Team Providers Care Maintenance Scheduler Name Role Phone Mick Flowers MD Primary Care Provider [phone] Encounter Details Date Type Department Care Team (Latest Contact Info) Description 05/30/2023 Travel Social History Tobacco Use Types Packs/Day [...] Description 09/09/2024 10:00 AM CDT Office Visit [facility] Medical Group Family & Internal Medicine - [address] [phone] Mick Flowers MD [address] [place] [address] [phone] documented as of this encounter Visit Diagnoses Not on filedocumented in this encounter Additional Health Concerns Assessment Noted Time PHQ-9 Depression Total Score: 0 04/28/20 21 11:07 AM CDT documented as of this encounter Care Teams Maintenance Scheduler Relationship Specialty Start Date End Date Mick Flowers MD [address] [place] [address] PCP - General 10/15/14 documented as of this encounter
--- OUTSIDE RECORDS SUMMARY | 2024-06-29 00:10 | XMS_ITS | Encounter Summary ---
Author Organization [facility] Address [address] [place] [address]. [place], [place] [address] [place] [address] Care Team Providers Care Director Integrated Name Role Phone Mick Flowers MD Primary Care Provider [phone] Reason for Visit * Reason Onset Date Comments Blood Pressure 03/27/2022 Encounter Details Date Type Department Care Team (Late st Contact Info) Description 03/27/2022 Telephone [facility] Medical Group Family & Internal Medicine [facility] [address] [place] [address] Mick Flowers MD [address] [place] [address] [phone] Blood Pressure Social History Tobacco Use Types Packs/Day Years Used Date Smoking Tobacco: Never Smokeless Tobacco: Never Alcohol Use Standard Drinks/Week Comments Yes 0 (1 standard drink = 0.6 oz pur e alcohol) [place] 4 oz every night AUDIT-C Answer Date [...] as of this encounter Progress Notes * Lexii Parikh RN - 03/27/2022 2:58 PM CDT Patient notified and agreeable. Patient will monitor BP daily. He will call the office if BP does not improve. Patient is also wondering if he should go back on Atorvastatin? Patient has noticed his cholesterolgradually going back up since changing to Simvastatin 6 months ago. Please advise LL-03/27/22 * Mick Flowers MD - 03/27/2022 1:51 PM CDT Increase Felodipine ER to 10mg daily * Lexii Parikh RN - 03/27/2022 8:44 AM CDT Patient called in stating that his BP has been in the 165/102 for the past few days. Patient statedhe also has noticed increased swelling in his feet and ankles. Patient denies any SOB, chest pain, or headaches. Patient is currently on Losartan 100 mg HCTZ 25 mg, and Felodipine ER 5 mg. Patient is wonder if he needs to increase his medication or change medication? Please advise DOMITILA03/27/22 documented in this encounter Plan of Treatment Upcoming Encounters Date Type Department Care Team (Late st Contact Info) Description 09/09/2024 10:00 AM CDT Office Visit [facility] Medical Group Family & Internal Medicine - [address] [phone] Mick Flowers MD [address] [place] [address] [phone] documented as of this encounter Visit Diagnoses Diagnosis Benign essential hypertension- Primary Essential hypertension, benign documented in this encounter Additional Health Concerns Assessment Noted Time PHQ-9 Depression Total Score: 0 04/28/20 21 11:07 AM CDT documented as of this encounter Care Teams Director Integrated Relationship Specialty Start Date End Date Mick Flowers MD [address] [place] [address] PCP - General 10/15/14 documented as of this encounter
--- OUTSIDE RECORDS SUMMARY | 2024-06-29 00:10 | XMS_ITS | Encounter Summary ---
Author Name [facility] Organization [facility] Address [address] [place] [address] Support Name Relationship Address Phone JESSICAAMELIA WEBER Veronica Next of Kin [address] [place] [address] AMELIA BORRERO Emergency Contact [address] [place] [address] Selected Encounter This section includes the information on record at [place] for the Encounter. Date/Time Encounter Type Encounter Description Reason Pro vider Source Dec 31, 2023 05:28 PM Outpatient Encounter ADMIN PAT ACTIVTIES (MASNONCT) [facility] Encounter Template Text not used by [facility] Encounter Notes: All associated encounter notes This section contains the clinical notes associated to the Encounter. Date/Time Encounter Note(s) Provider Source Dec 31, 2023 05:28 PM ADMINISTRATIVE NOT E: LOCAL TITLE: SCHEDULING NOTE [facility] STANDARD TITLE: ADMINISTRATIVE NOTE DATE OF NOTE: DEC 31, 2023@17:28 ENTRY DATE: DEC 31, 2023@17:28:11 AUTHOR: [facility] COSIGNER: URGENCY: STATUS: COMPLETED ADDITIONAL RESULTS FROM SCHEDULING ATTEMPTS: declined/refused-going to private provider outside [place] [facility] /rashard/ [facility] AMSA Signed: 12/31/2023 17:28 [facility]
--- OUTSIDE RECORDS SUMMARY | 2024-06-29 00:10 | XMS_ITS | Clinical Summary ---
Author Organization [facility] Address [address] [place] [address]. [place] [address] [place] [address] Care Team Providers Care Chemist Enzymes Name Role Phone Mick Flowers MD Primary Care Provider [phone] Allergies No known active allergies Medications Onabotulinumtoxi nA (BOTOX IJ)Indications:O veractive Bladder Inject as directed every 6 (six) months. Indications: Overactive Bladder Active hyoscyamine 0.125 MG SL tablet DISSOLVE 1 TABLET UNDER THE TONGUE EVERY 6 HOURS NEEDED 021 Active Alprostadil, Vasodilator, (EDEX) 20 MCG KitIndications:E rectile dysfunction, unspecified erectile dysfunction type 1 mL by Intracavernosal route as needed. 10-30 minutes prior to intercourse 30 kit 1 023 Active Insulin Syringe-Needle U-100 (INSULIN SYRINGE .5CC/28G) 28G X 1/2 0.5 ML MiscIndications: Erectile dysfunction, unspecified erectile dysfunction type 1 Units by Other route as needed. 100 each 023 Active famotidine (PEPCID) 20 MG tabletIndication s:Gastroesophage al reflux disease, unspecified whether esophagitis present Take 1 tablet (20 mg total) by mouth 2 (two) times daily. 180 tablet 3 023 Active Additional Information Patient taking differently:20 mg Oral2 times daily PRN, Reported on 09/04/2023 urea (CARMOL) 40 % CreamIndications :Eczema APPLY AND RUB IN A THIN FILM TO AFFECTED AREA(S) DAILY. 198.4 g 5 023 Active hydroCHLOROthiaz martha (HYDRODIURIL) 25 MG tabletIndication s:Benign essential hypertension take 1 tablet every morning 90 tablet 3 024 Active potassium chloride CR (K-TAB) 20 MEQ tabletIndication s:Edema take 1 tablet daily 90 tablet 3 024 Active atorvastatin (LIPITOR) 40 MG tabletIndication s:Mixed hyperlipidemia TAKE 1 TABLET NIGHTLY AT BEDTIME 90 tablet 3 024 Active felodipine ER (PLENDIL) 5 MG 24 hr tabletIndication s:Benign essential hypertension TAKE 2 TABLETS DAILY 180 tablet 3 024 Active valsartan (DIOVAN) 320 MG tabletIndication s:Benign essential hypertension take 1 tablet daily 90 tablet 3 024 Active amitriptyline (ELAVIL) 25 MG tabletIndication s:Thoracic spondylosis take 1 tablet twice a day 180 tablet 3 024 Active ALPRAZolam (XANAX) 0.25 MG tabletIndication s:Anxiety TAKE 1 TABLET THREE TIMES A DAY NEEDED 90 tablet 024 Active ALPRAZolam (XANAX) 0.25 MG tabletIndication s:Anxiety TAKE 1 TABLET THREE TIMES A DAY NEEDED 90 tablet 024 2023 Discontinued Active Problems Problem Noted Date Diagnosed Date Vitamin D deficiency 02/16/2021 Gastroesophageal reflux dise ase, unspecified whether esophagitis present 10/04/2020 Overview (10/04/2020): Added automatically from request for surgery [id number] Lower abdominal pain 10/04/2020 Overview (10/04/2020): Added automatically from request for surgery [id number] Change in bowel habit 10/04/2020 Overview (10/04/2020): Added automatically from request for surgery [id number] Diarrhea 10/04/2020 Overview (10/04/2020): Added automatically from request for surgery [id number] Thoracic spondylosis 08/15/2019 OAB (overactive bladder) 07/31/2018 Overview (10/07/2018): Overview: Added automatically from request for surgery [id number] Neurogenic bladder 02/13/2018 Overview (10/07/2018): Overview: Added automatically from request for surgery [id number] Edema 01/14/2018 Erectile dysfunction 09/08/2016 Malignant tumor of colon ([facility]) 09/07 Primary insomnia 08/24/2015 Eczema 08/05/2015 Urethral stricture 01/26/2014 Self-catheterizes urinary bladder 12/12/2013 Abnormal gait 12/16/2012 Multiple sclerosis ([facility]) 12/16/2012 Anxiety 10/03/2012 Benign essential hypertension 10/03/2012 Hyperlipidemia 06/26/2012 Encounters Date Type Department Care Team Description 06/20/2024 Telephone [facility] [address] [address] Mick Flowers MD Referral Request 06/17/[address] [address] Mick Flowers MD Lab Order 06/11/2024 Scan Art Loft INFO SRVCS Scanned, Doc Med Group from Last 3 Months Immunizations Name Administration Dates Next Due Afluria 36 MONTHS+ (Prefille d Syringe IIV4) 04/02/2019 Flucelvax 6 Months+ (Prefill ed Syringe) 03/26/2020 Influenza (Generic) 06/01/2017,04/16/2013 Influenza Adult (Generic) 03/12/2023,,04/04/2021, 018,04/02/2018,05/31/2017,03/26/2016,12/2014,03/31/2015 PFIZER COVID-19 (12+) MRNA, LNP-S, PF, BOGDAN-SUCROSE, 30 MCG/0.3 ML (COMIRNATY) 03/12/2023 PFIZER COVID-19 (HEART CAP), MRNA, LNP-S, PF, 30 MCG/0.3 ML BOGDAN-SUCROSE, IM 01/17/2022 PFIZER COVID-19 (ORIGINAL FORMULATION, PURPLE CAP) mRNA, LNP-S, PF, 30 MCG/0.3 ML DOSE 04/04/2021,09/27/2020,09/06/2020 PFIZER COVID-19 BIVALENT (12 +) mRNA, LNP-S, PF, 30 MCG/0.3 ML DOSE 08/31/2022 Shingrix 10/31/2022,08/31/2022 Tdap (Adacel) 08/29/2022 Zoster (Zostavax) 71006 Unt/0.65Ml 07/11/2017 Family History Medical History Relation Comments Cancer Father Hypertension Father Cancer Mother Relation Status Comments Father Mother Social History Tobacco Use Types Packs/Day Years Used Date Smoking Tobacco: Never Smokeless Tobacco: Never Tobacco Cessation:Counseling Given: Not Answered Alcohol Use Standard Drinks/Week Comments Yes 0 [...] Orientation Straight 10/07/2018 11 :33 AM CDT Last Filed Vital Signs Vital Sign Reading Time Taken Comments Blood Pressure 156/94 09/04/2023 10:45 AM CDT Pulse 64 09/04/2023 10:45 AM CDT Temperature 36.6 ??C (97.9 ??F) 09/04/2023 10:45 AM C DT Respiratory Rate 12 09/04/2023 10:45 AM CDT Oxygen Saturation 98% 09/04/2023 10:45 AM CDT Inhaled Oxygen Concentration - - Weight 80.7 kg (178 lb) 09/04/2023 10:45 AM CDT Height 177.8 cm (5' 10 ) 09/04/2023 10:45 AM CDT Body Mass Index 25.54 09/04/2023 10:45 AM CDT Plan of Treatment Upcoming Encounters Date Type Department Care Team (Late st Contact Info) Description 09/09/2024 10:00 AM CDT Office Visit [facility] Medical Group Family & Internal Medicine - [address] [phone] Mick Flowers MD [address] [place] [address] Health Maintenance Due Date Last Done Comments Hepatitis C 1983 Annual Physical 08/30/2023 08/29/2022, 09/23, 04/28/2021 COVID-19 Vaccine ( season) 2024 03/12/2023, 08/31/2022, 01/17/2022, Additional history exists Influenza Adult (#1) 2024 03/12/2023, 04/10/2022, 04/04/2021, Additional history exists DTaP, Tdap and Td Vaccines (2 - Td or Tdap) 08/29/2032 08/29/2022 Colorectal Cancer Screening Colonoscopy (10 Years) Discontinued 11/08/2020, 11/08/2020, 09/19/2011 Zoster Vaccines Completed 10/31/2022, 02/2023, 07/11/2017 Meningococcal Vaccine Aged Out No maribel dilma eligible based on patient's age to complete this topic Pneumococcal Vaccine: Pediatrics (0 to 5 Years) and At-Risk Patients (6 to 64 Years) Aged Out No longer eligible based on patient's age to complete this topic RSV Immunizations Under 20 Months Aged Out No longer eligible based on patient's age to complete this topic Procedures Procedure Name Priority Date/Time Associated Diagnosis Comments COLONOSCOPY Routine 11/08/2020 10:16 AM CDT from Last 3 Months or Most Recently Relevant to Health Maintenance Results * Colonoscopy (09/19/2011 12:00 AM CDT) 09/19/2011 09/19/2011 Narrative [facility] TO EPIC CONVERSION - 09/19/2011 12:00 AM CDT Documented hx of procedure Procedure Note Melanie Riddle MD - 04/28/2018 Documented hx of procedure Generic Conversion Md [facility] PROCEDURE ORDERABLES Final Result [facility] TO EPIC CONVERSION from Last 3 Months or Most Recently Relevant to Health Maintenance Insurance [employer] MEDICARE Advance Directives Documents on File Type Date Recorded Patient Stunner Expl anation Legal Documents 10/17/2018 Care Teams Chemist Enzymes Relationship Specialty Start Date End Date Mick Flowers MD [address] [place] [address] PCP - General 10/15/14
--- OUTSIDE RECORDS SUMMARY | 2024-06-29 00:10 | XMS_ITS | Encounter Summary ---
Author Organization [facility] Address [address] [place] [address]. [place], [place] [phone] [place] [address] Care Team Providers Care Preparation Plant Supervisor Name Role Phone Mick Flowers MD Primary Care Provider [phone] Reason for Visit * Reason Onset Date Comments Refill Request 10/04/2022 Encounter Details Date Type Department Care Team (Late st Contact Info) Description 10/04/2022 Telephone [facility] Medical Group Family & Internal Medicine [facility] [address] [place] [address] Mick Flowers MD [facility] [place] [address] Refill Request Social History Tobacco Use Types Packs/Day Years [...] of this encounter Progress Notes * Gela Ashley MA - 10/04/2022 3:15 PM CDTAddended by: GELA ASHLEY on: 10/04/2022 03:15 PM Modules accepted: Orders * Gela Ashley MA - 10/04/2022 2:38 PM CDT Refill request received from Pharmacy Last visit with MICK FLOWERS in [facility]ILY [facility] was on: 08/29/2022 in [facility] Future Appointments Date Time Provider Department Center 09/04/2023 10:00 AM Mick Flowers MD [id number] documented in this encounter Plan of Treatment Upcoming Encounters Date Type Department Care Team (Late st Contact Info) Description 09/09/2024 10:00 AM CDT Office Visit [facility] Medical Group Family & Internal Medicine [address] [address] Mick Flowers MD [address] [place] [address] documented as of this encounter Visit Diagnoses Diagnosis Benign essential hypertension Essential hypertension, benign Mixed hyperlipidemia Edema Thoracic spondylosis Thoracic spondylosis without myelopathy Gastroesophageal reflux disease, unspecified whether esophagitis present documented in this encounter Additional Health Concerns Assessment Noted Time PHQ-9 Depression Total Score: 0 04/28/20 21 11:07 AM CDT documented as of this encounter Care Teams Preparation Plant Supervisor Relationship Specialty Start Date End Date Mick Flowers MD [address] [place] [address] PCP - General 10/15/14 documented as of this encounter
--- OUTSIDE RECORDS SUMMARY | 2024-06-29 00:10 | XMS_ITS | Encounter Summary ---
Author Organization [facility] Address [address] [place] [address]. [place], [place] [address] [place] [address] Care Team Providers Care Water Quality Control Engineer Name Role Phone Mick Flowers MD Primary Care Provider [phone] Reason for Visit * Reason Onset Date Comments Results 04/03/2022 Encounter Details Date Type Department Care Team (Late st Contact Info) Description 04/03/2022 Telephone [facility] Medical Group Family & Internal Medicine [phone] [place] [address] Mick Flowers MD [address] [place] [address] [phone] Results Social History Tobacco Use Types Packs/Day Years Used Date Smoking Tobacco: Never Smokeless Tobacco: Never Alcohol Use Standard Drinks/Week Comments Yes 0 (1 standard drink = 0.6 oz pur e alcohol) [place] 4 oz every night AUDIT-C Answer Date [...] Progress Notes * Gela Solo MA - 04/05/2022 12:28 PM CDT Patient informed and v/u. He is agreeable to switch, new rx sent to pharmacy for previous dose. Patient notes he had no issues with this medication last time he had taken it. * Mick Flowers MD - 04/04/2022 5:28 PM CDT His cholesterol seemed to be under better control when he was taking atorvastatin, would likely be better to switch back. * Kanchan Zuñiga MA - 04/03/2022 2:07 PM CDT Patient is on simvastatin and is asking if he should go back on atorvastatin? * Kanchan Zuñiga MA - 04/03/2022 2:07 PM CDT ----- Message from Mick Flowers MD sent at 04/02/2022 7:52 PM CDT ----- Cholesterol is slightly elevated, diet and exercise Rx. Other labs are good. documented in this encounter Plan of Treatment Upcoming Encounters Date Type Department Care Team (Late st Contact Info) Description 09/09/2024 10:00 AM CDT Office Visit [facility] Medical Group Family & Internal Medicine - [phone] [place] [phone] Mick Flowers MD [facility] [place] [place] [address] documented as of this encounter Visit Diagnoses Diagnosis Mixed hyperlipidemia documented in this encounter Additional Health Concerns Assessment Noted Time PHQ-9 Depression Total Score: 0 04/28/20 21 11:07 AM CDT documented as of this encounter Care Teams Water Quality Control Engineer Relationship Specialty Start Date End Date Mick Flowers MD [address] [place] [address] PCP - General 10/15/14 documented as of this encounter
--- OUTSIDE RECORDS SUMMARY | 2024-06-29 00:10 | XMS_ITS | Encounter Summary ---
Author Organization [facility] Address [address] [place] [address]. [place], [place] [address] [place] [address] Care Team Providers Care Spring Salvage Worker Name Role Phone Mick Flowers MD Primary Care Provider [phone] Reason for Visit * Reason Onset Date Comments Med Change Request 01/25/2024 Encounter Details Date Type Department Care Team (Late st Contact Info) Description 01/25/2024 Telephone [facility] Family & Internal Medicine [facility] [address] [place] [address] Mick Flowers MD [address] [place], [place] [phone] Med Change Request Social History Tobacco Use Types Packs/Day [...] Progress Notes * Lexii Parikh RN - 01/28/2024 4:56 PM CDT RX pend back to PCP to fill. LL-01/28/24 * Mick Flowers MD - 01/28/2024 12:56 PM CDT Okay to change alprazolam to 0.25mg tid prn * Gela Solo MA - 01/25/2024 1:05 PM CDT Patient dropped off a letter that states the following: Timolo, I am prescribed Alprazolam 0.5mg tablets for sleep, and have been at this dosage for several years.I have been experimenting with an increase of dosage for better quality of sleep. Can I please havea new prescription , 0.25mg tablets, 3 times daily, totaling 0.75mg daily. I can then space out during my sleep cycle, taking each pill 3 hours apart. It can be sent to [facility] in [place] [address]. Thanks, Doc Emery [phone] 01/25/2024 1:08 PM documented in this encounter Plan of Treatment Upcoming Encounters Date Type Department Care Team (Late st Contact Info) Description 09/09/2024 10:00 AM CDT Office Visit [facility] Family & Internal Medicine - [address] [address] Mick Flowers MD [address] [place] [address] documented as of this encounter Visit Diagnoses Diagnosis Anxiety Anxiety state, unspecified documented in this encounter Additional Health Concerns Assessment Noted Time PHQ-9 Depression Total Score: 0 04/28/20 21 11:07 AM CDT documented as of this encounter Care Teams Spring Salvage Worker Relationship Specialty Start Date End Date Mick Flowers MD [address] [place] [id number] PCP - General 10/15/14 documented as of this encounter
--- OUTSIDE RECORDS SUMMARY | 2024-06-29 00:10 | XMS_ITS | Encounter Summary ---
Author Organization [facility] Address [address] [place] [address]. [place], [place] [address] [place] [address] Care Team Providers Care Pure Culture Operator Name Role Phone Mick Flowers MD Primary Care Provider [phone] Reason for Visit * Reason Onset Date Comments Record Request 11/14/2023 Encounter Details Date Type Department Care Team (Late st Contact Info) Description 11/14/2023 Telephone [facility] Family & Internal Medicine [facility] [address] [place] [address] Mick Flowers MD [facility] [place], [place] [phone] Record Request Social History Tobacco Use Types Packs/Day [...] Progress Notes * Gela Solo MA - 11/14/2023 8:31 AM CDT Lab results faxed, no EKG available on file. * Gela Solo MA - 11/14/2023 7:48 AM CDT [facility]or: [facility] Date of request: 11/06/2023 Requested records: EKG and most recent labs Reason for request: continuation of care documented in this encounter Plan of Treatment Upcoming Encounters Date Type Department Care Team (Late st Contact Info) Description 09/09/2024 10:00 AM CDT Office Visit [facility] Family & Internal Medicine [address] [address] Mick Flowers MD [address] [place] [address] documented as of this encounter Visit Diagnoses Not on filedocumented in this encounter Additional Health Concerns Assessment Noted Time PHQ-9 Depression Total Score: 0 04/28/20 21 11:07 AM CDT documented as of this encounter Care Teams Pure Culture Operator Relationship Specialty Start Date End Date Mick Flowers MD [address] [place] [address] PCP - General 10/15/14 documented as of this encounter
--- OUTSIDE RECORDS SUMMARY | 2024-06-29 00:10 | XMS_ITS | Encounter Summary ---
Author Organization [facility] Address [address] [place] [address]. [place], [place] [address] [place] [address] Care Team Providers Care Mailroom Supervisor Name Role Phone Mick Flowers MD Primary Care Provider Reason for Visit * Reason Onset Date Comments Orders 04/13/2023 Encounter Details Date Type Department Care Team (Late st Contact Info) Description 04/13/2023 Telephone [facility] Family & Internal Medicine [place] [address] [place] [phone] Mick Flowers MD [address] [place] [phone] Orders Social History Tobacco Use Types Packs/Day Years [...] Progress Notes * Gela Solo MA - 04/19/2023 12:17 PM CDT This NIM[facility] left voicemail for patient informing him scan is ordered. Can be scheduled at [facility]. * Di Dent - 04/16/2023 11:55 AM CDT Doc returned your call. * Gela Solo MA - 04/16/2023 11:41 AM CDT This NIMCO left voicemail for patient to return call to office 04/16/23 * Mick Flowers MD - 04/16/2023 8:41 [address] CDT Okay for CT cardiac calcium score * Di Dent - 04/13/2023 12:03 PM CDT Doc called in, his Becka just had a calcium score test done and it was $99. He is wanting to have the same test ordered. documented in this encounter Plan of Treatment Upcoming Encounters Date Type Department Care Team (Late st Contact Info) Description 09/09/2024 10:00 AM CDT Office Visit [facility] Family & Internal Medicine - [place] [address] [place] [address] Mick Flowers MD [facility] [place] [address] documented as of this encounter Visit Diagnoses Not on filedocumented in this encounter Additional Health Concerns Assessment Noted Time PHQ-9 Depression Total Score: 0 04/28/20 21 11:07 AM CDT documented as of this encounter Care Teams Mailroom Supervisor Relationship Specialty Start Date End Date Mick Flowers MD [address] [place] [address] PCP - General 10/15/14 documented as of this encounter
--- OUTSIDE RECORDS SUMMARY | 2024-06-29 00:10 | XMS_ITS | Encounter Summary ---
Author Organization [facility] Address [address] [place] [address]. [place], [place] [address] [place] [address] Care Team Providers Care Gold Letterer Name Role Phone Mick Flowers MD Primary Care Provider Reason for Visit * Reason Onset Date Comments Refill Request 05/16/2022 Encounter Details Date Type Department Care Team (Late st Contact Info) Description 05/16/2022 Telephone [facility] Family & Internal Medicine [facility] [address] [place] [address] Mick Flowers MD [facility] [place], [place] [phone] Refill Request Social History Tobacco Use Types Packs/Day Years Used Date Smoking Tobacco: Never Smokeless Tobacco: Never Alcohol Use Standard Drinks/Week Comments Yes 0 (1 standard drink = 0.6 oz pur e alcohol) [place] 4 oz every night AUDIT-C Answer Date [...] Progress Notes * Kanchan Zuñiga MA - 05/16/2022 2:09 PM CST Refill request received from Pharmacy , patient is asking if PCP will take over rx . He takes this for IBS Last visit with MICK FLOWERS in [facility] was on: 10/06/2021 in [facility] Future Appointments Date Time Provider Department Center 10/09/2022 10:00 AM Mick Flowers MD [id number] - [place], [place] - [address] [facility] [address] [facility]IV[facility] - [place], [place] - [address] [place] [address] [facility] [address] [address] [facility] - [place], [place] - [address] [facility] [address] Current Outpatient Medications: ??? ALPRAZolam (XANAX) 0.5 MG tablet, TAKE 1 TABLET(0.5 MG) BY MOUTH THREE TIMES DAILY NEEDED, Disp: 60 tablet, Rfl: 0 ??? Alprostadil, Vasodilator, (EDEX) 20 MCG Kit, 1 mL by Intracavernosal route as needed. 10-30 minutes prior to intercourse, Disp: 30 kit, Rfl: 1 ??? atorvastatin (LIPITOR) 40 MG tablet, Take 1 tablet (40 mg total) by mouth nightly at bedtime., Disp: 90 tablet, Rfl: 3 ??? baclofen 10 MG tablet, Take 10 mg by mouth 3 (three) times daily. Indications: Multiple Sclerosis, Disp: , Rfl: ??? famotidine (PEPCID) 20 MG tablet, Take 1 tablet (20 mg total) by mouth 2 (two) times daily., Disp: 180 tablet, Rfl: 1 ??? felodipine ER (PLENDIL) 5 MG 24 hr tablet, Take 2 tablets (10 mg total) by mouth daily., Disp: 30 tablet, Rfl: 3 ??? HYDROCHLOROTHIAZIDE 25 MG tablet, TAKE 1 TABLET(25 MG) BY MOUTH EVERY MORNING, Disp: 90 tablet,Rfl: 3 ??? hyoscyamine 0.125 MG SL tablet, DISSOLVE 1 TABLET UNDER THE TONGUE EVERY 6 HOURS NEEDED, Disp: , Rfl: ??? INSULIN SYRINGE .5CC/28G (B-D INS SYR MICROFINE .5CC/28G) 28G X 1/2 0.5 ML Misc, , Disp: , Rfl: ??? LOSARTAN 100 MG tablet, TAKE 1 TABLET(100 MG) BY MOUTH DAILY, Disp: 90 tablet, Rfl: 3 ??? MILK THISTLE OR, , Disp: , Rfl: ??? omeprazole EC 20 MG tablet, Take 1 tablet (20 mg total) by mouth daily., Disp: 30 tablet, Rfl: 1 ??? OnabotulinumtoxinA (BOTOX IJ), Inject as directed every 6 (six) months. Indications: OveractiveBladder, Disp: , Rfl: ??? POTASSIUM CHLORIDE CR 20 MEQ Tab CR tablet, TAKE 1 TABLET BY MOUTH DAILY, Disp: 90 tablet, Rfl:3 ??? probiotic capsule, Take 1 capsule by mouth daily., Disp: , Rfl: ??? urea 40 % Cream, APPLY AND RUB IN A THIN FILM TO AFFECTED AREA(S) DAILY., Disp: 198.4 g, Rfl: 5 ??? vitamin D3, cholecalciferol, (VITAMIN D-3) 10 MCG (400 UNIT) tablet, Take 400 Units by mouth daily., Disp: , Rfl: GER FRONT documented in this encounter Plan of Treatment Upcoming Encounters Date Type Department Care Team (Late st Contact Info) Description 09/09/2024 10:00 AM CDT Office Visit [facility] Family & Internal Medicine [address] [address] Mick Flowers MD [address] [place] [address] [phone] documented as of this encounter Visit Diagnoses Diagnosis Thoracic spondylosis- Primary Thoracic spondylosis without myelopathy documented in this encounter Additional Health Concerns Assessment Noted Time PHQ-9 Depression Total Score: 0 04/28/20 21 11:07 AM CDT documented as of this encounter Care Teams Gold Letterer Relationship Specialty Start Date End Date Mick Flowers MD [address] [place] [address] PCP - General 10/15/14 documented as of this encounter
--- OUTSIDE RECORDS SUMMARY | 2024-06-29 00:10 | XMS_ITS | Encounter Summary ---
Author Organization [facility] Address [address] [place] [address]. [place], [place] [address] [place] [address] Care Team Providers Care Admitting Clerk Name Role Phone Mick Flowers MD Primary Care Provider Encounter Details Date Type Department Care Team (Latest Contact Info) Description 01/22/2024 Scan HEALTH INFO SRVCS Scanned, Doc Med [...] Description 09/09/2024 10:00 AM CDT Office Visit [facility] Family & Internal Medicine [address] [address] Mick Flowers MD [address] [place] [address] [phone] documented as of this encounter Visit Diagnoses Not on filedocumented in this encounter Additional Health Concerns Assessment Noted Time PHQ-9 Depression Total Score: 0 04/28/20 21 11:07 AM CDT documented as of this encounter Care Teams Admitting Clerk Relationship Specialty Start Date End Date Mick Flowers MD [address] [place] [address] PCP - General 10/15/14 documented as of this encounter
--- OUTSIDE RECORDS SUMMARY | 2024-06-29 00:10 | XMS_ITS | Encounter Summary ---
Author Organization [facility] Address [address] [place] [address]. [place], [place] [address] [place] [address] Care Team Providers Care Muffler Hand Name Role Phone Mick Flowers MD Primary Care Provider [phone] Reason for Visit * Reason Onset Date Comments Refill Request 08/30/2022 Encounter Details Date Type Department Care Team (Late st Contact Info) Description 08/30/2022 Telephone [facility] Family & Internal Medicine [facility] [address] [place] [address] Mick Flowers MD [facility] [place] [place] [address] Refill Request Social History Tobacco Use Types [...] Coronavirus/COVID-19? No / Unsure 08/29/2022 10:21 AM WAITER/WAITRESS COUNTER documented as of this encounter Progress Notes * Salina Menchaca - 08/30/2022 10:59 AM CST These were originally sent over to [facility] pt states that it is to be sent to [facility]. Please call pt when these are sent over so he can activate it. ER/WAITRESS COUNTER documented in this encounter Plan of Treatment Upcoming Encounters Date Type Department Care Team (Late st Contact Info) Description 09/09/2024 10:00 AM CDT Office Visit [facility] Family & Internal Medicine - [address] [address] Mick Flowers MD [address] [place] [address] documented as of this encounter Visit Diagnoses Diagnosis Erectile dysfunction, unspecified erectile dysfunction type documented in this encounter Additional Health Concerns Assessment Noted Time PHQ-9 Depression Total Score: 0 04/28/20 21 11:07 AM CDT documented as of this encounter Care Teams Muffler Hand Relationship Specialty Start Date End Date Mick Flowers MD [address] [place] [address] PCP - General 10/15/14 documented as of this encounter
--- OUTSIDE RECORDS SUMMARY | 2024-06-29 00:10 | XMS_ITS | Encounter Summary ---
Author Organization [facility] Address [address] [place] [address]. [place], [place] [address] [place] [address] Care Team Providers Care Clinical Laboratory Aides Teacher Name Role Phone Mick Flowers MD Primary Care Provider [phone] Reason for Visit * Reason Onset Date Comments Orders 07/31/2022 Encounter Details Date Type Department Care Team (Late st Contact Info) Description 07/31/2022 Telephone [facility] Family & Internal Medicine [facility] [address] [place] [address] Mick Flowers MD [facility] [place], [place] [phone] Orders Social History Tobacco Use Types Packs/Day Years Used Date Smoking Tobacco: Never Smokeless Tobacco: Never Alcohol Use Standard Drinks/Week Comments Yes 0 (1 standard drink = 0.6 oz pur e alcohol) [place] 4 oz every night AUDIT-C Answer Date [...] Progress Notes * Mick Flowers MD - 08/24/2022 12:04 PM CST Labs review, will review with the patient at his next appointment. Future Appointments 08/29/2022 10:40 AM Mick Flowers MD [facility] STANT UNIT FORESTER * Kanchan Zuñiga MA - 08/04/2022 2:19 PM CST Orders placed and faxed as requested STANT UNIT FORESTER * Mick Flowesr MD - 07/31/2022 12:52 PM CST 6 month lipid labs. STANT UNIT FORESTER * Kanchan Zuñiga MA - 07/31/2022 11:18 AM CST Patient is asking for labs to be ordered prior to 08/29/22 appointment No labs in chart as of yet, most labs were done 02/2022. Patient would like sent to [facility] in [place]. Cb#[phone] STANT UNIT FORESTER documented in this encounter Plan of Treatment Upcoming Encounters Date Type Department Care Team (Late st Contact Info) Description 09/09/2024 10:00 AM CDT Office Visit [facility] Family & Internal Medicine - [place] [address] [place] [address] Mick Flowers MD [address] [place] [address] documented as of this encounter Procedures Procedure Name Priority Date/Time Associated Diagnosis Comments COMPREHENSIVE METABOLIC PANEL Routine 08/23/2022 9:19 AM ASSISTANT UNIT FORESTER Mixed hyperlipidemia LIPID PANEL Routine 08/23/2022 9:19 AM ASSISTANT UNIT FORESTER Mixed hyperlipidemia CK (CPK) Routine 08/23/2022 9:19 AM ASSISTANT UNIT FORESTER Mixed hyperlipidemia documented in this encounter Results * (ABNORMAL) LIPID PANEL (08/23/2022 9:19 AM ASSISTANT UNIT FORESTER) CHOLESTEROL 201(H) <200 mg/dL [facility] HDL 94 > OR = 40 mg/dL [facility] TRIGLYCERIDES 79 <150 mg/dL [facility] LDL (CALCULATED) 90 mg/dL (calc) [facility] Comment: Reference range: <100 Desirable range <100 mg/dL for primary prevention; ?? <70 mg/dL for patients with CHD or diabetic patients with > or = 2 CHD risk factors. LDL-C is now calculated using the Mary Kay calculation, which is a validated novel method providing better accuracy than the Friedewald equation in the estimation of LDL-C. Sergey SOTO et al. MAKENZIE. 2013;310(19): 3431-3874 (http://education.Giggzo/faq/YNB740) CHOL/HDL RATIO 2.1 <5.0 (calc) [facility] NON HDL CHOLESTEROL 107 <130 mg/dL (calc) [facility] Comment: For patients with diabetes plus 1 major ASCVD risk factor, treating to a non-HDL-C goal of <100 mg/dL (LDL-C of <70 mg/dL) is considered a therapeutic option. 08/23/2022 9:19 AM ASSISTANT UNIT FORESTER 08/23/2022 9:19 AM ASSISTANT UNIT FORESTER Narrative [facility]DERS - 08/24/2022 1:45 AM ASSISTANT UNIT FORESTER FASTING:YES FASTING: YES Resulting Agency Comment Performing Organization Information: ?Site ID: [id number] ?Name: Israel Denney ?Address: [address] [phone] ?Director: Vianney Arciniega MD us Mick Flowers MD LABORATORY Final Result [facility] ORDERS [facility] [address] [address] [id number], * CK (CPK) (08/23/2022 9:19 AM ASSISTANT UNIT FORESTER) TOTAL CK 128 44 - 196 U/L [facility] 08/23/2022 9:19 AM ASSISTANT UNIT FORESTER 08/23/2022 9:19 AM ASSISTANT UNIT FORESTER Narrative [facility] - 08/24/2022 1:45 AM ASSISTANT UNIT FORESTER FASTING:YES FASTING: YES Resulting Agency Comment Performing Organization Information: ?Site ID: [place] ?Name: Israel Denney ?Address: [address] [place] [address] ?Director: Vianney Arciniega MD Mick Flowers MD LABORATORY Final Result [facility] [address] [place] [address], * COMPREHENSIVE METABOLIC PANEL (08/23/2022 9:19 AM ASSISTANT UNIT FORESTER) Pathologist [facility] GLUCOSE 94 65 - 99 mg/dL [facility] Comment: ? Fasting reference interval BUN 10 7 - 25 mg/dL [facility] CREATININE S/P/B 0.80 0.70 - 1.30 mg/dL [facility] GFR ESTIMATE 103 > OR = 60 mL/min/1 .73m2 [facility] Comment: The eGFR is based on the CKD-EPI 2020 equation. To calculate the new eGFR from a previous Creatinine or Cystatin C result, go to https://www.kidney.org/professionals/ kdoqi/gfr%5Fcalculator BUN CREATININE RATIO NOT APPLICABLE 6 - 22 (calc) [facility] SODIUM S/P/B 137 135 - 146 mmol/L [facility] POTASSIUM S/P/B 4.5 3.5 - 5.3 mmol/L [facility] CHLORIDE S/P/B 101 98 - 110 mmol/L [facility] CO2 30 20 - 32 mmol/L [facility] CALCIUM S/P/B 9.9 8.6 - 10.3 mg/dL [facility] TOTAL PROTEIN S/P/B 6.9 6.1 - 8.1 g/dL [facility] ALBUMIN S/P/B 4.6 3.6 - 5.1 g/dL [facility] GLOBULIN 2.3 1.9 - 3.7 g/dL (calc) [facility] ALBUMIN/GLOBULI N RATIO 2.0 1.0 - 2.5 (calc) [facility] BILIRUBIN TOTAL S/P/B 0.6 0.2 - 1.2 mg/dL [facility] ALKALINE PHOSPHATASE S/P/B 106 35 - 144 U/L [facility] AST 21 10 - 35 U/L [employer] [facility] ALT 24 9 - 46 U/L [employer] [facility] 08/23/2022 9:19 AM ASSISTANT UNIT FORESTER 08/23/2022 9:19 AM ASSISTANT UNIT FORESTER Narrative [facility] - [facility] ORDERS - 08/24/2022 1:45 AM ASSISTANT UNIT FORESTER FASTING:YES FASTING: YES Resulting Agency Comment Performing Organization Information: ?Site ID: [place] ?Name: [facility] ?Address: [address] [place] [phone] ?Director: Vianney Arciniega MD us Mick Flowers MD LABORATORY Final Result [facility] [id number] [place] [address] documented in this encounter Visit Diagnoses Diagnosis Mixed hyperlipidemia- Primary documented in this encounter Additional Health Concerns Assessment Noted Time PHQ-9 Depression Total Score: 0 04/28/20 21 11:07 AM CDT documented as of this encounter Care Teams Clinical Laboratory Aides Teacher Relationship Specialty Start Date End Date Mick Flowers MD [address] [place] [address] PCP - General 10/15/14 documented as of this encounter
--- OUTSIDE RECORDS SUMMARY | 2024-06-29 00:10 | XMS_ITS | Encounter Summary ---
Author Organization [facility] Address [address] [place] [address]. [place], [place] [address] [place] [address] Care Team Providers Care Railroad Signal Operator Name Role Phone Mick Flowers MD Primary Care Provider [phone] Reason for Referral * Consultation (Routine) - Closed Specialty Diagnoses / Procedures Referred By Contac t Referred To Contact NEUROLOGY Diagnoses Multiple sclerosis ([facility]/HCC [facility]) Procedures OFFICE/OUTPATIENT NEW LOW MDM 30-44 MINUTES OFFICE/OUTPT VISIT,NEW,LEVL IV OFFICE/OUTPT VISIT,NEW,LEVL V OFFICE/OUTPT VISIT,EST,LEVL III OFFICE/OUTPT VISIT,EST,LEVL IV OFFICE/OUTPT VISIT,EST,LEVL V Mick Flowers MD [address] [place] [address] Phone: tel: fax: Cherry Minor MD [address] [facility]ULT[facility]LE SCLEROSIS, [address] [address] Phone: tel: fax: Referral ID Status Reason Start Date Expiration Date V isits Requested Visits Authorized [id number] Closed Specialty Services 05/24/2023 05/24/[address] HAMMER OPERATOR Reason for Visit * Reason Onset Date Comments Referral 05/24/2023 Encounter Details Date Type Department Care Team (Late st Contact Info) Description 05/24/[address] [facility] Family & Internal Medicine [address] [phone] Mick Flowers MD [address] [place] [address] Referral Social History Tobacco Use Types Packs/Day Years [...] Progress Notes * Kanchan Zuñiga MA - 05/24/2023 1:05 PM CST Referral placed 05/24/23 CT HAMMER OPERATOR * Anjana Saucedo - 05/24/2023 12:34 PM CST [facility] requesting a referral. Is this a new consult:Yes. Dr's name: Dr. Cherry Minor Specialty: Neurology Reason for referral (diagnosis): Diagnosis code unknown Appointment: 06/05/23 Last office visit at this office: Last visit with MICK FLOWERS in FAMILY PRACTICE was on: 08/29/2022 in [facility] Future appointment scheduled: Future Appointments Date Time Provider Department Center 05/30/2023 10:[address] [facility] 09/04/2023 10:00 AM Mick Flowers MD [id number] HAMMER OPERATOR documented in this encounter Plan of Treatment Upcoming Encounters Date Type Department Care Team (Late st Contact Info) Description 09/09/2024 10:00 AM CDT Office Visit [facility] Family & Internal Medicine [address] [phone] Mick Flowers MD [facility] [place] [address] Scheduled Referrals Name Type Priority Associated Diagnoses Orde r Schedule Ambulatory referral to Neurology (OTHER) Referral Routine Multiple sclerosis ([facility]) Ordered: 05/24/2023 documented as of this encounter Visit Diagnoses Diagnosis Multiple sclerosis ([facility])- Primary Multiple sclerosis documented in this encounter Additional Health Concerns Assessment Noted Time PHQ-9 Depression Total Score: 0 04/28/20 21 11:07 AM CDT documented as of this encounter Care Teams Railroad Signal Operator Relationship Specialty Start Date End Date Mick Flowers MD [address] [place] [address] PCP - General 10/15/14 documented as of this encounter
--- OUTSIDE RECORDS SUMMARY | 2024-06-29 00:10 | XMS_ITS | Encounter Summary ---
Author Organization [facility] Address [address] [place] [address]. [place], [place] [address] [place] [address] Care Team Providers Care Ui Developer Designer Name Role Phone Mick Flowers MD Primary Care Provider [phone] Encounter Details Date Type Department Care Team (Latest Contact Info) Description 08/31/2022 Scan HEALTH INFO SRVCS Scanned, Doc Med [...] Coronavirus/COVID-19? No / Unsure 08/29/2022 10:21 AM INSECTICIDE MAKER documented as of this encounter Plan of Treatment Upcoming Encounters Date Type Department Care Team (Late st Contact Info) Description 09/09/2024 10:00 AM CDT Office Visit [facility] Family & Internal Medicine [address] [phone] Mick Flowers MD [address] [place] [address] documented as of this encounter Visit Diagnoses Not on filedocumented in this encounter Additional Health Concerns Assessment Noted Time PHQ-9 Depression Total Score: 0 04/28/20 21 11:07 AM CDT documented as of this encounter Care Teams Ui Developer Designer Relationship Specialty Start Date End Date Mick Flowers MD [address] [place] [address] PCP - General 10/15/14 documented as of this encounter
--- OUTSIDE RECORDS SUMMARY | 2024-06-29 00:10 | XMS_ITS | Encounter Summary ---
Author Organization [facility] Address [address] [place] [address]. [place] [address] [place] [address] Care Team Providers Care Boot Repairer Name Role Phone Mick Flowers MD Primary Care Provider [phone] Reason for Referral * Imaging (Routine) - Closed Specialty Diagnoses / Procedures Referred By Contac t Referred To Contact RADIOLOGY Diagnoses Benign essential hypertension Mixed hyperlipidemia Procedures USV CAROTID DUPLEX JEFFERY USV CAROTID DUPLEX JEFFERY USV CAROTID DUPLEX JEFFERY Mick Flowers MD [address] [place] [address] Phone: tel: fax: Referral ID Status Reason Start Date Expiration Date Visits Re quested Visits Authorized [id number] Closed 09/04/2023 09/03/2024 1 1 Reason for Visit * Reason Comments Follow Up Anxiety Prescribed alprazola m Hypertension Hyperlipidemia Multiple Sclerosis Insomnia NOS Lab Order Patient requesting a lab order for routine blood work to go to [email or web address] Encounter Details Date Type Department Care Team (Late st Contact Info) Description 09/04/2023 10:00 AM CDT Office Visit [facility] Family & Internal Medicine [facility] [address] [place] [phone] Mick Flowers MD [address] [place], [place] [phone] Follow Up; Anxiety (Prescribed alprazolam); Hypertension; Hyperlipidemia; Multiple Sclerosis; Insomnia NOS; Lab Order (Patient requesting a lab order for routine blood work to go to [email or web address]) Social History Tobacco Use Types Packs/Day Years [...] AM CDT documented as of this encounter Last Filed Vital Signs Vital Sign Reading [...] Mass Index 25.54 09/04/2023 10:45 AM CDT documented in this encounter Progress Notes * Mick Flowers MD - 09/04/2023 10:00 AM CDT Images from the original note were not included. Office Progress Note Reason for Visit: Follow Up, Anxiety (Prescribed alprazolam), Hypertension, Hyperlipidemia, Multiple Sclerosis, Insomnia NOS, and Lab Order (Patient requesting a lab order for routine blood work to go to [email or web address]) History of Present Illness: He is here today for routine follow-up. Hypertension: Well-controlled on current medications. He does check his blood pressure at home andtypically runs 130s over 80s most of the time he will occasionally have a diastolic blood pressure in the 90s. He denies chest pain, shortness of breath, headaches, lightheadedness or dizziness. Hyperlipidemia: Doing well with current medication. Compliant with medication without medication side effects. Denies muscle aches or joint pains from medications Multiple sclerosis: Patient is following with neurology on a regular basis. They are trying to switch him over to Biolog[employer] but he is resistant to do this due to the decrease in immunity and increased cancer risk. He has a strong family history of multiple different cancers and wants to avoid this if possible. GERD: Well-controlled on current medications. Patient is compliant with his medication without medication side effects. He denies dysphagia. Vitamin D deficiency: He is compliant with vitamin D supplementation without medication side effects. He denies signs or symptoms of vitamin D deficiency. Anxiety: Doing well with as needed issues of medications. No recent panic attacks. No sleep disturbance ROS: Review of Systems All other systems reviewed and are negative. Medications: Current Outpatient Medications on File Prior to Visit Medication Sig ALPRAZolam (XANAX) 0.5 MG tablet TAKE 1 TABLET THREE TIMES A DAY NEEDED Alprostadil, Vasodilator, (EDEX) 20 MCG Kit 1 mL by Intracavernosal route as needed. 10-30 minutes prior to intercourse amitriptyline (ELAVIL) 25 MG tablet Take 1 tablet (25 mg total) by mouth 2 (two) times a day. atorvastatin (LIPITOR) 40 MG tablet Take 1 tablet (40 mg total) by mouth nightly at bedtime. famotidine (PEPCID) 20 MG tablet Take 1 tablet (20 mg total) by mouth 2 (two) times daily. (Patienttaking differently: Take 1 tablet (20 mg total) by mouth 2 (two) times daily as needed.) felodipine ER (PLENDIL) 5 MG 24 hr tablet Take 2 tablets (10 mg total) by mouth daily. hydroCHLOROthiazide (HYDRODIURIL) 25 MG tablet Take 1 tablet (25 mg total) by mouth every morning. hyoscyamine 0.125 MG SL tablet DISSOLVE 1 TABLET UNDER THE TONGUE EVERY 6 HOURS NEEDED OnabotulinumtoxinA (BOTOX IJ) Inject as directed every 6 (six) months. Indications: Overactive Bladder potassium chloride CR (K-TAB) 20 MEQ tablet Take 1 tablet (20 mEq total) by mouth daily. urea (CARMOL) 40 % Cream APPLY AND RUB IN A THIN FILM TO AFFECTED AREA(S) DAILY. valsartan (DIOVAN) 320 MG tablet TAKE 1 TABLET(320 MG) BY MOUTH DAILY Insulin Syringe-Needle U-100 (INSULIN SYRINGE .5CC/28G) 28G X 1/2 0.5 ML Misc 1 Units by Other route as needed. No current facility-administered medications on file prior to visit. Allergies: No Known Allergies Medical History: Past Medical History: Diagnosis Date Anxiety Erectile dysfunction Herpes zoster Hyperlipidemia Hypertension Multiple sclerosis (CMS/HCC HHS/HCC) S/P Botox injection in bladder every 6 months Surgical History: Past Surgical History: Procedure Laterality Date BLADDER SURGERY COLONOSCOPY 2010 normal per pt COLONOSCOPY N/A 11/08/2020 COLONOSCOPY WITH descending colon polypectomy via cold snare performed by Kilo Myers MD at [facility] Social History: Social History Socioeconomic History Marital status: Tobacco Use Smoking status: Never Smokeless tobacco: Never Vaping Use Vaping Use: Never used Substance and Sexual Activity Alcohol use: Yes Comment: couple drinks on the weeknd Drug use: Yes Frequency: 7.0 times per week Types: Marijuana Comment: marijuana edibles for sleep; medical marijuana Sexual activity: Yes Partners: Female Family History: Family History Problem Relation Name Age of Onset Cancer Mother Hypertension Father Cancer Father PE: Physical Exam Vitals and nursing note reviewed. Constitutional: Appearance: Normal appearance. He is well-developed. HENT: Head: Normocephalic and atraumatic. Eyes: Extraocular Movements: Extraocular movements intact. Conjunctiva/sclera: Conjunctivae normal. Pupils: Pupils are equal, round, and reactive to light. Neck: Vascular: Normal carotid pulses. No carotid bruit. Cardiovascular: Rate and Rhythm: Normal rate and regular rhythm. Heart sounds: Normal heart sounds. No murmur heard. No friction rub. No gallop. Pulmonary: Effort: Pulmonary effort is normal. No respiratory distress. Breath sounds: Normal breath sounds. No wheezing. Skin: General: Skin is warm and dry. Neurological: Mental Status: He is alert and oriented to person, place, and time. Psychiatric: Behavior: Behavior normal. Judgment: Judgment normal. Filed Vitals: 09/04/23 1045 BP: (!) 156/94 Pulse: 64 Resp: 12 Temp: 97.9 ??F (36.6 ??C) TempSrc: Skin SpO2: 98% Weight: 80.7 kg (178 lb) Height: 1.778 m (5' 10 ) Diagnoses/Impression: 1. Benign essential hypertension Chronic LIPID PANEL COMPREHENSIVE METABOLIC PANEL CK (CPK) USV CAROTID DUPLEX JEFFERY CANCELED: USV CAROTID DUPLEX JEFFERY 2. Mixed hyperlipidemia Chronic LIPID PANEL COMPREHENSIVE METABOLIC PANEL CK (CPK) USV CAROTID DUPLEX JEFFERY CANCELED: USV CAROTID DUPLEX JEFFERY 3. Multiple sclerosis (CMS/HCC HHS/HCC) Chronic 4. Gastroesophageal reflux disease, unspecified whether esophagitis present 5. Vitamin D deficiency 6. Anxiety Chronic Recommendations and Plan: 1. Benign essential hypertension Well controlled, continue with present management. - LIPID PANEL; Future - COMPREHENSIVE METABOLIC PANEL; Future - CK (CPK); Future - LIPID PANEL - COMPREHENSIVE METABOLIC PANEL - CK (CPK) - USV CAROTID DUPLEX JEFFERY; Future - USV CAROTID DUPLEX JEFFERY 2. Mixed hyperlipidemia Doing well, continue with current medications. - LIPID PANEL; Future - COMPREHENSIVE METABOLIC PANEL; Future - CK (CPK); Future - LIPID PANEL - COMPREHENSIVE METABOLIC PANEL - CK (CPK) - USV CAROTID DUPLEX JEFFERY; Future - USV CAROTID DUPLEX JEFFERY 3. Multiple sclerosis (CMS/HCC HHS/HCC) Management as per neurology. 4. Gastroesophageal reflux disease, unspecified whether esophagitis present Well controlled, continue with present management. 5. Vitamin D deficiency Doing well, continue with Vitamin D supplementation. 6. Anxiety Doing well, continue with current treatment. Follow up in 6 months. Orders Placed This Encounter LIPID PANEL COMPREHENSIVE METABOLIC PANEL CK (CPK) USV CAROTID DUPLEX JEFFERY PCP: MICK FLOWERS MD 09/04/2023 * Mick Flowers MD - 09/04/2023 10:00 AM CDT Labs are good. documented in this encounter Plan of Treatment Upcoming Encounters Date Type Department Care Team (Late st Contact Info) Description 09/09/2024 10:00 AM CDT Office Visit [facility] Family & Internal Medicine [address] [phone] Mick Flowers MD [address] [place] [phone] documented as of this encounter Procedures Procedure Name Priority Date/Time Associated Diagnosis Comments COMPREHENSIVE METABOLIC PANEL Routine 12/18/2023 8:59 AM CDT Benign essential hypertension Mixed hyperlipidemia LIPID PANEL Routine 12/18/2023 8:59 AM CDT Benign essential hypertension Mixed hyperlipidemia CK (CPK) Routine 12/18/2023 8:59 AM CDT Benign essential hypertension Mixed hyperlipidemia documented in this encounter Results * CK (CPK) (12/18/2023 8:59 AM CDT) TOTAL CK 127 44 - 196 U/L [facility] 12/18/2023 8:59 AM CDT 12/18/2023 8:59 AM CDT Narrative [facility] - 12/19/2023 6:20 AM CDT FASTING:YES FASTING: YES Resulting Agency Comment Performing Organization Information: ?Site ID: [id number] ?Name: Israel Denney ?Address: [address] [place] [address] ?Director: Vianney Arciniega MD us Mick Flowers MD LABORATORY Final Result [facility] [address] [place], [place] [address]RUST * COMPREHENSIVE METABOLIC PANEL (12/18/2023 8:59 AM CDT) GLUCOSE 87 65 - 99 mg/dL [facility] Comment: ? Fasting reference interval BUN 14 7 - 25 mg/dL [facility] CREATININE S/P/B 0.72 0.70 - 1.30 mg/dL [facility] GFR ESTIMATE 105 > OR = 60 mL/min/1. 73m2 [facility] BUN CREATININE RATIO SEE NOTE: (calc) [facility] Comment: ?? Not Reported: BUN and Creatinine are within ?? reference range. ? SODIUM S/P/B 136 135 - 146 mmol/L [facility] POTASSIUM S/P/B 4.2 3.5 - 5.3 mmol/L [facility] CHLORIDE S/P/B 102 98 - 110 mmol/L [facility] CO2 23 20 - 32 mmol/L [facility] CALCIUM S/P/B 9.4 8.6 - 10.3 mg/dL [facility] TOTAL PROTEIN S/P/B 6.3 6.1 - 8.1 g/dL [facility] ALBUMIN S/P/B 4.1 3.6 - 5.1 g/dL [facility] GLOBULIN 2.2 1.9 - 3.7 g/dL (calc) [facility] ALBUMIN/GLOBULI N RATIO 1.9 1.0 - 2.5 (calc) [facility] BILIRUBIN TOTAL S/P/B 0.6 0.2 - 1.2 mg/dL [facility] ALKALINE PHOSPHATASE S/P/B 103 35 - 144 U/L [facility] AST 25 10 - 35 U/L [facility] ALT 32 9 - 46 U/L [facility] 12/18/2023 8:59 AM CDT 12/18/2023 8:59 AM CDT Narrative [facility] - 12/19/2023 6:20 AM CDT FASTING:YES FASTING: YES Resulting Agency Comment Performing Organization Information: ?Site ID: [id number] ?Name: [employer] ?Address: [address] [facility] [place] [address] ?Director: Vianney Arciniega MD us Mick Flowers MD LABORATORY Final Result [facility] [address] [place] [address], * LIPID PANEL (12/18/2023 8:59 AM CDT) CHOLESTEROL 185 <200 mg/dL [facility] HDL 77 > OR = 40 mg/dL [facility] TRIGLYCERIDES 99 <150 mg/dL [facility] LDL (CALCULATED) 89 mg/dL (calc) [facility] Comment: Reference range: <100 Desirable range <100 mg/dL for primary prevention; ?? <70 mg/dL for patients with CHD or diabetic patients with > or = 2 CHD risk factors. LDL-C is now calculated using the [employer] calculation, which is a validated novel method providing better accuracy than the Friedewald equation in the estimation of LDL-C. Sergey SS et al. MAKENZIE. 2013;310(19): 9276-9967 (http://education.InfoHubble/faq/FYR876) CHOL/HDL RATIO 2.4 <5.0 (calc) [facility] NON HDL CHOLESTEROL 108 <130 mg/dL (calc) [facility] Comment: For patients with diabetes plus 1 major ASCVD risk factor, treating to a non-HDL-C goal of <100 mg/dL (LDL-C of <70 mg/dL) is considered a therapeutic option. 12/18/2023 8:59 AM CDT 12/18/2023 8:59 AM CDT Narrative [facility] - 12/19/2023 6:20 AM CDT FASTING:YES FASTING: YES Resulting Agency Comment Performing Organization Information: ?Site ID: [place] ?Name: [email or web address] ?Address: [address] [address] ?Director: Vianney Arciniega MD Mick Flowers MD LABORATORY Final Result [facility] [address] [address], * USV CAROTID DUPLEX JEFFERY (09/18/2023 3:47 PM CDT) Anatomical Region Laterality Modality Neck Vascular Ultraso und 09/18/2023 3:32 PM CDT Narrative 09/18/2023 4:06 PM CDT ?CAROTID ARTERY DUPLEX IMAGING ? VASCULAR LAB Pat.Name: ??MARITA EMERY ?Pat.ID: ?[id number] ? St.Date: ?? 09/18/2023 ? Exam Time: 3:32:00 PM ? Study Type:KAMAR VS Duplex Carotid BIDOB ??Age: ??1965,57Y ? Sex: ? M ? Sonogrphr: Shin Mckeon, RVS ? Pat. Stat.:Outpatient ? History / Clinical:HTN; [...] IMAGING VASCULAR LAB Pat.Name: MARITA EMERY Pat.ID: [id number] .Date: 09/18/2023 Exam Time: 3:32:00 PM Study [...] 0.935 <Electronic Signature> 09/18/2023 04:06 PM Cole Panda M.D. Mick Flowers MD VAS Final Result documented in this encounter Visit Diagnoses Diagnosis Benign essential hypertension- Primary Essential hypertension, benign Mixed hyperlipidemia Multiple sclerosis (CMS/HCC [facility]/HCC) Multiple sclerosis Gastroesophageal reflux disease, unspecified whether esophagitis present Vitamin D deficiency Unspecified vitamin D deficiency Anxiety Anxiety state, unspecified Benign essential hypertension Essential hypertension, benign Mixed hyperlipidemia documented in this encounter Additional Health Concerns Assessment Noted Time PHQ-9 Depression Total Score: 0 04/28/20 21 11:07 AM CDT documented as of this encounter Care Teams Boot Repairer Relationship Specialty Start Date End Date Mick Flowers MD [address] [place] [address] PCP - General 10/15/14 documented as of this encounter
--- OUTSIDE RECORDS SUMMARY | 2024-06-29 00:10 | XMS_ITS | Encounter Summary ---
Author Organization [facility] Address [address] [place] [address]. [place], [place] [address] [place] [address] Care Team Providers Care Hand Spinner Name Role Phone Mick Flowers MD Primary Care Provider [phone] Reason for Visit * Reason Onset Date Comments Referral Request 06/20/2024 Encounter Details Date Type Department Care Team (Late st Contact Info) Description 06/20/2024 Telephone [facility] Family & Internal Medicine [facility] [address] [place] [address] Mick Flowers MD [address] [place], [place] [phone] Referral Request Social History Tobacco Use Types Packs/Day [...] Progress Notes * Mick Flowers MD - 06/20/2024 11:08 AM CST He needs to start with our office and start workup. If needed we can refer to pulmonary. CH THERAPIST EARLY INTERVENTION * Gela Solo MA - 06/20/2024 10:40 AM CST Okay for referral to collection development librarian? Received fax from patient stating the following: Hello, I have been having some phlegm develop in my lungs over the last year, requiring me to attempt to clear more than ever before. I just want to get checked out. I am looking to go to [facility]. Thanks, Doc Emery [phone] CH THERAPIST EARLY INTERVENTION documented in this encounter Plan of Treatment Upcoming Encounters Date Type Department Care Team (Late st Contact Info) Description 09/09/2024 10:00 AM CDT Office Visit [facility] Family & Internal Medicine [address] [phone] Mick Flowers MD [address] [place] [address] documented as of this encounter Visit Diagnoses Not on filedocumented in this encounter Additional Health Concerns Assessment Noted Time PHQ-9 Depression Total Score: 0 04/28/20 21 11:07 AM CDT documented as of this encounter Care Teams Hand Spinner Relationship Specialty Start Date End Date Mick Flowers MD [address] [place] [address] PCP - General 10/15/14 documented as of this encounter
--- OUTSIDE RECORDS SUMMARY | 2024-06-29 00:10 | XMS_ITS | Encounter Summary ---
Author Organization [facility] Address [address] [place] [address]. [place], [place] [id number] [place] [address] Care Team Providers Care Talent Acquisition Director Name Role Phone Mick Flowers MD Primary Care Provider [phone] Reason for Visit * Reason Onset Date Comments Lab Order 05/08/2023 Patient is reque sting routine lab work to be done that he does every 6 months. Wanting to go to [facility] on [address] PETERSON#: [phone] Encounter Details Date Type Department Care Team (Late st Contact Info) Description 05/08/2023 Telephone [facility] Family & Internal Medicine [address] [phone] Mick Flowers MD [address] [place] [address] Lab Order (Patient is requesting routine lab work to be done that he does every 6 months. Wanting to go to [facility] on [address] PETERSON#: [phone]) Social History Tobacco Use Types Packs/Day Years [...] Progress Notes * Mick Flowers MD - 05/23/2023 7:18 AM CST Labs are good. COLOR TESTER * Romulo Kang MA - 05/14/2023 9:59 AM CSTAddended by: ROMULO KANG on: 05/14/2023 09:59 AM Modules accepted: Orders COLOR TESTER * Romulo Kang MA - 05/14/2023 9:59 AM CST Orders placed, patient notified and v/u COLOR TESTER * Mick Flowers MD - 05/10/2023 1:41 PM CST Yearly lipid labs with PSA COLOR TESTER * RT FranklinR - 05/08/2023 8:48 AM CST Patient is requesting routine lab work to be done that he does every 6 months. Wanting to go to [facility] on [address] CB#: [phone] COLOR TESTER documented in this encounter Plan of Treatment Upcoming Encounters Date Type Department Care Team (Late st Contact Info) Description 09/09/2024 10:00 AM CDT Office Visit [facility] Family & Internal Medicine - [address] [phone] Mick Flowers MD [address] [place] [address] Scheduled Orders Name Type Priority Associated Diagnoses Orde r Schedule URINALYSIS WI REFLEX TO CULTURE Lab Routine Vitamin D deficiency Mixed hyperlipidemia Benign essential hypertension Self-catheterizes urinary bladder Multiple sclerosis (CMS/HCC HHS/HCC) Expected: 05/14/2023, Expires: 05/14/2024 documented as of this encounter Procedures Procedure Name Priority Date/Time Associated Diagnosis Comments CBC W/AUTO DIFF Routine 05/21/2023 9:37 AM DRY COLOR TESTER Vitamin D deficiency Mixed hyperlipidemia Benign essential hypertension Self-catheterizes urinary bladder Multiple sclerosis (CMS/HCC HHS/HCC) VITAMIN D, 25 OH TOTAL Routine 9:37 AM DRY COLOR TESTER Vitamin D deficiency Mixed hyperlipidemia Benign essential hypertension Self-catheterizes urinary bladder Multiple sclerosis (CMS/HCC HHS/HCC) PROSTATE SPECIFIC ANTIGEN,SCREENING Routine 05/21/2023 9:37 AM DRY COLOR TESTER Encounter for prostate cancer screening COMPREHENSIVE METABOLIC PANEL Routine 05/21/2023 9:37 AM DRY COLOR TESTER Vitamin D deficiency Mixed hyperlipidemia Benign essential hypertension Self-catheterizes urinary bladder Multiple sclerosis (CMS/HCC HHS/HCC) LIPID PANEL Routine 05/21/2023 9:37 AM DRY COLOR TESTER Vitamin D deficiency Mixed hyperlipidemia Benign essential hypertension Self-catheterizes urinary bladder Multiple sclerosis (CMS/HCC HHS/HCC) CK (CPK) Routine 05/21/2023 9:37 AM DRY COLOR TESTER Vitamin D deficiency Mixed hyperlipidemia Benign essential hypertension Self-catheterizes urinary bladder Multiple sclerosis (CMS/HCC HHS/HCC) documented in this encounter Results * LIPID PANEL (05/21/2023 9:37 AM DRY COLOR TESTER) CHOLESTEROL 179 <200 mg/dL [facility] HDL 69 > OR = 40 mg/dL [facility] TRIGLYCERIDES 107 <150 mg/dL [facility] LDL (CALCULATED) 90 mg/dL (calc) [facility] Comment: Reference range: <100 Desirable range <100 mg/dL for primary prevention; ?? <70 mg/dL for patients with CHD or diabetic patients with > or = 2 CHD risk factors. LDL-C is now calculated using the [employer] calculation, which is a validated novel method providing better accuracy than the Friedewald equation in the estimation of LDL-C. Sergey SOTO et al. MAKENZIE. 2013;310(19): 0979-6835 (http://education.MyTrade/faq/GTF940) CHOL/HDL RATIO 2.6 <5.0 (calc) [facility] [employer] [facility] NON HDL CHOLESTEROL 110 <130 mg/dL (calc) [facility] Comment: For patients with diabetes plus 1 major ASCVD risk factor, treating to a non-HDL-C goal of <100 mg/dL (LDL-C of <70 mg/dL) is considered a therapeutic option. 05/21/2023 9:37 AM DRY COLOR TESTER 05/21/2023 9:37 AM DRY COLOR TESTER Narrative [facility] - [facility] - 05/22/2023 8:00 AM DRY COLOR TESTER FASTING:YES FASTING: YES Resulting Agency Comment Performing Organization Information: ?Site ID: [place] ?Name: [facility] ?Address: [address] [place] [address] ?Director: Vianney Arciniega MD Mick Flowers MD LABORATORY Final Result [facility] [address] [facility] [place] [address], * PROSTATE SPECIFIC ANTIGEN,SCREENING (05/21/2023 9:37 AM DRY COLOR TESTER) Pathologist [facility] [place] PSA TOTAL 1.28 < OR = 2.50 ng/mL [employer] [facility] Comment: The total PSA value from this assay system is standardized against the WHO standard. The test result will be approximately 20% lower when compared to the equimolar-standardized total PSA ([place]). Comparison of serial PSA results should be interpreted with this fact in mind. This test was performed using the Siemens chemiluminescent method. Values obtained from different assay methods cannot be used interchangeably. PSA levels, regardless of value, should not be interpreted as absolute evidence of the presence or absence of disease. 05/21/2023 9:37 AM DRY COLOR TESTER 05/21/2023 9:37 AM DRY COLOR TESTER Narrative [facility] - 05/22/2023 8:00 AM DRY COLOR TESTER FASTING:YES FASTING: YES Resulting Agency Comment Performing Organization Information: ?Site ID: [place] ?Name: [facility] ?Address: [address] [place] [address] ?Director: Vianney Arciniega MD us Mick Flowers MD LABORATORY Final Result [facility] [employer] [facility] [address] [place] [address], * VITAMIN D, 25 OH ([facility] ONLY) (05/21/2023 9:37 AM DRY COLOR TESTER) VITAMIN D 25 HYDROXY TOTAL S/P/B 34 30 - 100 ng/mL [facility] Comment: Vitamin D Status ? 25-OH Vitamin D: Deficiency: ?<20 ng/mL Insufficiency: ? 20 - 29 ng/mL Optimal: ? > or = 30 ng/mL For 25-OH Vitamin D testing on patients on D2-supplementation and patients for whom quantitation of D2 and D3 fractions is required, the [facility]() 25-OH VIT D, (D2,D3), LC/MS/MS is recommended: order code 22898 (patients >2yrs). See Note 1 Note 1 For additional information, please refer to http://education.DecisionDesk.ChannelEyes/faq/GDQ746 (This link is being provided for informational/ educational purposes only.) 05/21/2023 9:37 AM DRY COLOR TESTER 05/21/2023 9:37 AM DRY COLOR TESTER Narrative [facility] - 05/22/2023 8:00 AM DRY COLOR TESTER FASTING:YES FASTING: YES Resulting Agency Comment Performing Organization Information: ?Site ID: [place] ?Name: [facility] ?Address: [facility] [place] [address] ?Director: Vianney Arciniega MD Mick Flowers MD LABORATORY Final Result Performing Organization Address City/[facility]/ZIP Co de Phone Number [facility] [address] [place] [address], [place] * CK (CPK) (05/21/2023 9:37 AM DRY COLOR TESTER) TOTAL CK 104 44 - 196 U/L [facility] [employer] [facility] 05/21/2023 9:37 AM DRY COLOR TESTER 05/21/2023 9:37 AM DRY COLOR TESTER Narrative [facility] - 05/22/2023 8:00 AM DRY COLOR TESTER FASTING:YES FASTING: YES Resulting Agency Comment Performing Organization Information: ?Site ID: [place] ?Name: [employer] [facility] [place] ?Address: [facility] [place] [address] ?Director: Vianney Arciniega MD Mick Flowers MD LABORATORY Final Result Performing Organization Address City/[facility]/ZIP Co de Phone Number [facility] [employer] [facility] [address] [place], [place] [address] [place] [address] * COMPREHENSIVE METABOLIC PANEL (05/21/2023 9:37 AM DRY COLOR TESTER) GLUCOSE 93 65 - 99 mg/dL [facility] Comment: ? Fasting reference interval BUN 14 7 - 25 mg/dL [facility] CREATININE S/P/B 0.81 0.70 - 1.30 mg/dL [facility] GFR ESTIMATE 102 > OR = 60 mL/min/1. 73m2 [facility] BUN CREATININE RATIO SEE NOTE: (calc) [facility] Comment: ?? Not Reported: BUN and Creatinine are within ?? reference range. ? SODIUM S/P/B 138 135 - 146 mmol/L [facility] POTASSIUM S/P/B 4.4 3.5 - 5.3 mmol/L [facility] CHLORIDE S/P/B 103 98 - 110 mmol/L [facility] [employer] [facility] CO2 27 20 - 32 mmol/L [facility] [employer] ASYA CALCIUM S/P/B 9.4 8.6 - 10.3 mg/dL [facility] TOTAL PROTEIN S/P/B 6.4 6.1 - 8.1 g/dL [facility] ALBUMIN S/P/B 4.3 3.6 - 5.1 g/dL [facility] GLOBULIN 2.1 1.9 - 3.7 g/dL (calc) [facility] ALBUMIN/GLOBULI N RATIO 2.0 1.0 - 2.5 (calc) [facility] [employer] [facility] BILIRUBIN TOTAL S/P/B 0.5 0.2 - 1.2 mg/dL [facility] [employer] [facility] ALKALINE PHOSPHATASE S/P/B 98 35 - 144 U/L [facility] AST 19 10 - 35 U/L [facility] [employer] ALT 21 9 - 46 U/L [facility] [facility] 05/21/2023 9:37 AM DRY COLOR TESTER 05/21/2023 9:37 AM DRY COLOR TESTER Narrative [facility] - [facility] - 05/22/2023 8:00 AM DRY COLOR TESTER FASTING:YES FASTING: YES Resulting Agency Comment Performing Organization Information: ?Site ID: [place] ?Name: [employer] [place] ?Address: [address] [place] [address] ?Director: Vianney Arciniega MD us Mick Flowers MD LABORATORY Final Result [facility] [address] [place] [address], * CBC W/AUTO DIFF (05/21/2023 9:37 AM DRY COLOR TESTER) WBC 3.9 3.8 - 10.8 Thousand/u L [facility] RBC 4.72 4.20 - 5.80 Million/uL [facility] HGB 14.7 13.2 - 17.1 g/dL [facility] [facility] HCT 42.1 38.5 - 50.0 % [facility] ASYA MCV 89.2 80.0 - 100.0 fL [facility] MCH 31.1 27.0 - 33.0 pg [facility] MCHC 34.9 32.0 - 36.0 g/dL [facility] RDW 12.0 11.0 - 15.0 % [facility] ASYA PLT 178 140 - 400 Thousand/u L [facility] [facility] MPV 11.2 7.5 - 12.5 fL [facility] [facility]YA ABS. NEUTROPHILS 1,841 1,500 - 7,800 cells/uL [facility] [facility] ABS. LYMPHOCYTES 1,279 850 - 3,900 cells/uL [facility] [facility] ABS. MONOCYTES 390 200 - 950 cells/uL [facility] [employer] [facility] ABS. EOSINOPHILS 359 15 - 500 cells/uL [facility] [employer] [facility] ABS. BASOPHILS 31 0 - 200 cells/uL [facility] SEG NEUTROPHILS 47.2 % [facility] LYMPHOCYTES 32.8 % [facility] [facility] MONOCYTES 10.0 % [facility] [facility] EOSINOPHILS 9.2 % [facility] [facility] BASOPHILS 0.8 % [employer] [facility] 05/21/2023 9:37 AM DRY COLOR TESTER 05/21/2023 9:37 AM DRY COLOR TESTER Narrative [facility] - 05/22/2023 8:00 AM DRY COLOR TESTER FASTING:YES FASTING: YES Resulting Agency Comment Performing Organization Information: ?Site ID: [place] ?Name: [employer] ?Address: [address] [place] [address] ?Director: Vianney Arciniega MD us Mick Flowers MD LABORATORY Final Result [facility] [address] [place], [place] [address] documented in this encounter Visit Diagnoses Diagnosis Vitamin D deficiency- Primary Unspecified vitamin D deficiency Mixed hyperlipidemia Benign essential hypertension Essential hypertension, benign Self-catheterizes urinary bladder Other specified conditions influencing health status Multiple sclerosis (CMS/HCC HHS/HCC) Multiple sclerosis Encounter for prostate cancer screening Special screening for malignant neoplasm of prostate documented in this encounter Additional Health Concerns Assessment Noted Time PHQ-9 Depression Total Score: 0 04/28/20 21 11:07 AM CDT documented as of this encounter Care Teams Talent Acquisition Director Relationship Specialty Start Date End Date Mick Flowers MD [address] [place] [address] PCP - General 10/15/14 documented as of this encounter
--- OUTSIDE RECORDS SUMMARY | 2024-06-29 00:10 | XMS_ITS | Encounter Summary ---
Author Organization [facility] Address [address] [place] [address]. [place], [place] [address] [place] [address] Care Team Providers Care Healthcare Facility Administrator Name Role Phone Mick Flowers MD Primary Care Provider [phone] Reason for Visit * Reason Onset Date Comments Question 06/01/2022 Encounter Details Date Type Department Care Team (Late st Contact Info) Description 06/01/2022 Telephone [facility] Family & Internal Medicine [facility] [address] [place] [address] [facility] [place], [place] [id number] Question Social History Tobacco Use Types Packs/Day Years Used Date Smoking Tobacco: Never Smokeless Tobacco: Never Alcohol Use Standard Drinks/Week Comments Yes 0 (1 standard drink = 0.6 oz pur e alcohol) [employer] 4 oz every night AUDIT-C Answer Date [...] Progress Notes * Lexii Parikh RN - 06/05/2022 4:34 PM CST Patient notified and RX sent over. Patient verbalized understanding. Opportunity given for all questions to be answered, no further needs voiced at this time. LL-06/05/22 RVISOR DRYING * Mick Flowers MD - 06/05/2022 2:52 PM CST Change losartan to Valsartan 160mg daily, continue to monitor blood pressure. RVISOR DRYING * Salina Menchaca - 06/01/2022 1:33 PM CST Patient states that he had dropped off a paper last week with his BP medications and is wanting to know if you are wanting to change any of it. RVISOR DRYING documented in this encounter Plan of Treatment Upcoming Encounters Date Type Department Care Team (Late st Contact Info) Description 09/09/2024 10:00 AM CDT Office Visit [facility] Group Family & Internal Medicine - [address] [phone] Mick Flowers MD [address] [place] [address] documented as of this encounter Visit Diagnoses Diagnosis Benign essential hypertension- Primary Essential hypertension, benign documented in this encounter Additional Health Concerns Assessment Noted Time PHQ-9 Depression Total Score: 0 04/28/20 21 11:07 AM CDT documented as of this encounter Care Teams Healthcare Facility Administrator Relationship Specialty Start Date End Date Mick Flowers MD [address] [place] [address] PCP - General 10/15/14 documented as of this encounter
--- OUTSIDE RECORDS SUMMARY | 2024-06-29 00:10 | XMS_ITS | Encounter Summary ---
Author Organization [facility] Address [address] [place] [address]. [place], [place] [address] [place] [address] Care Team Providers Care Key Operator Name Role Phone Mick Flowers MD Primary Care Provider [phone] Encounter Details Date Type Department Care Team (Latest Contact Info) Description 07/19/2022 Scan HEALTH INFO SRVCS Scanned, Doc Med Group Social History Tobacco Use Types Packs/Day Years Used Date Smoking Tobacco: Never Smokeless Tobacco: Never Alcohol Use Standard Drinks/Week Comments Yes 0 (1 standard drink = 0.6 oz pur e alcohol) [place] 4 oz every night AUDIT-C Answer Date [...] H[facility]PITAL Medical [facility] Family & Internal Medicine [address] [phone] Mick Flowers MD [address] [place] [address] documented as of this encounter Visit Diagnoses Not on filedocumented in this encounter Additional Health Concerns Assessment Noted Time PHQ-9 Depression Total Score: 0 04/28/20 21 11:07 AM CDT documented as of this encounter Care Teams Key Operator Relationship Specialty Start Date End Date Mick Flowers MD [address] [place] [address] PCP - General 10/15/14 documented as of this encounter
--- OUTSIDE RECORDS SUMMARY | 2024-06-29 00:10 | XMS_ITS | Continuity of Care Document ---
Author Name [facility] Organization [facility] Care Team Providers Care Roto Gravure Press Operator Name Role Phone [facility] Unavailable Unavailable Problems Combined list of problems from Department of Defense and Veterans Affairs facilities. It does not include entries that were removed or entered in error. Problem Status Onset Date Problem Type Date of Resolution Comme nts Source Need For Vaccination Against Influenza Active Condition [facility] Medications Combined list of outpatient medications from Department of Defense and Veterans Affairs facilities.Medications provided include 1) outpatient medications from the last 15 months, and 2) patient-reported medications. Medication Details Route Status Patient Instructions Prescription Expires Prescription Number Last Dispense Date Ordering Provider Order Date Order Qty Source ALPRAZOLAM (ALPRAZOLAM ), 0.5MG, TABLET, ORAL, SANDOZ, 100 ea. BOTTLE Active [id number] 2023 60 Pharmac y Data Transac tion Service Facilit y ALPRAZOLAM (ALPRAZOLAM ), 0.5MG, TABLET, ORAL, SANDOZ, 100 ea. BOTTLE Active [id number] 4 2023 60 Pharmac y Data Transac tion Service Facilit y ALPRAZOLAM (ALPRAZOLAM ), 0.5MG, TABLET, ORAL, SANDOZ, 100 ea. BOTTLE Active [id number] 4 2023 60 Pharmac y Data Transac tion Service Facilit y ALPRAZOLAM (ALPRAZOLAM ), 0.5MG, TABLET, ORAL, SANDOZ, 100 ea. BOTTLE Active [id number] 3 2023 60 Pharmac y Data Transac tion Service Facilit y alprostadil 20 mcg injectable kit INJECT 20MCG INTO THE INTRACAV ERNOSAL SPACE 10 TO 30 MINUTES PRIOR TO INTERCOU RSE NEEDED, # 3 EA, 2 total refill(s ), Acute Complet ed 08/29/2023 3.0 Ambulat ory Pharmac y AMITRIPTYLI NE HCL (amitriptyl ine HCl), 25 MG, TABLET, ORAL, [employer] 1000 ea. BOTTLE Active [id number] 2023 180 Pharmac y Data Transac tion Service Facilit y ATORVASTATI N CALCIUM (atorvastat in calcium), 40 MG, TABLET, ORAL, [employer], 1000 ea. BOTTLE Active [id number] 4 2023 90 Pharmac y Data Transac tion Service Facilit y FELODIPINE ER (felodipine ), 5 MG, TAB ER 24H, ORAL, [employer] 500 ea. BOTTLE Active [id number] 4 2023 180 Pharmac y Data Transac tion Service Facilit y HYDROCHLORO THIAZIDE (hydrochlor othiazide), 25 MG, TABLET, ORAL, [employer] 1000 ea. BOTTLE Active [id number] 4 2023 90 Pharmac y Data Transac tion Service Facilit y HYDROCHLORO THIAZIDE (hydrochlor othiazide), 25 MG, TABLET, ORAL, [employer] 1000 ea. BOTTLE Active [id number] 4 2023 90 Pharmac y Data Transac tion Service Facilit y POTASSIUM CHLORIDE (potassium chloride), 20 MEQ, TABLET ER, ORAL, ADVAGEN PHARMA, 500 ea. BOTTLE Active [id number] 2023 90 Pharmac y Data Transac tion Service Facilit y SULFAMETHOX AZOLE-TRIME THOPRIM (SULFAMETHO XAZOLE/TRIM ETHOPRIM), 800-160MG, TABLET, ORAL, [employer], 500 ea. BOTTLE Active [id number] 2023 6 Pharmac y Data Transac tion Service Facilit y VALSARTAN (valsartan) , 320 MG, TABLET, ORAL, AVKARE, 90 ea. BOTTLE Active [id number] 2023 90 Pharmac y Data Transac tion Service Facilit y Immunizations Combined list of available immunizations from the Department of Defense and Veterans Affairs facilities. Immunization Series Date Given Administered By Site Reaction Lot Number CVX Code Drug Mine Car Repairer Status Comments Source influenza, injectable, quadrivalent- pf 2020 150 sanofi pasteur complet ed influenza , injectabl e, quadrival ent-pf 04/04/21 Given Ambulat ory Pharmac y influenza, injectable, quadrivalent, preservative free 2020 ZORAIDA, () Not Given influenza , injectabl e, quadrival ent, preservat godfrey free DoD influenza, injectable, quadrivalent- pf 2017 150 Seqirus complet ed influenza , injectabl e, quadrival ent-pf 04/03/18 Given Ambulat ory Pharmac y zoster vaccine live 2017 121 Merck & Company Inc complet ed zoster vaccine live 07/12/17 Given Ambulat ory Pharmac y influenza, seasonal, injectable-pf 2013 140 CSL Behring complet ed influenza , seasonal, injectabl e-pf 03/25/14 Given Ambulat ory Pharmac y influenza, seasonal, injectable 2011 141 Novartis Pharmaceutica ls complet ed influenza , seasonal, injectabl e 04/18/12 Given Ambulat ory Pharmac y influenza virus vaccine,split 2004 zzLef t Arm [id number] 15 sanofi pasteur complet ed influenza virus vaccine,s plit 05/30/05 Given Ambulat ory Pharmac y influenza virus vaccine,split 2004 [id number] 15 sanofi pasteur complet ed influenza virus vaccine,s plit 05/30/05 Given Ambulat ory Pharmac y influenza virus vaccine, split virus (incl. purified surface antigen)-reti red CODE 1 2004 Unknown, Provider [id number] 15 Sanofi Pasteur ([facility]) complet ed influenza virus vaccine, split virus (incl. purified surface antigen)- retired CODE DoD influenza virus vaccine,split 2003 zzLef t Arm [id number] 15 sanofi pasteur complet ed influenza virus vaccine,s plit 06/01/04 Given Ambulat ory Pharmac y influenza virus vaccine,split 2003 [id number] 15 sanofi pasteur complet ed influenza virus vaccine,s plit 06/01/04 Given Ambulat ory Pharmac y influenza virus vaccine, split virus (incl. purified surface antigen)-reti red CODE 1 2003 Unknown, Provider [id number] 15 Sanofi Pasteur ([facility]) complet ed influenza virus vaccine, split virus (incl. purified surface antigen)- retired CODE DoD influenza virus vaccine, whole virus 2002 TRANSCR IBED 16 complet ed influenza virus vaccine, whole virus 04/09/03 Given Ambulat ory Pharmac y influenza virus vaccine, whole virus 1 2002 Unknown, Provider 16 Transcribed (TRS) complet ed influenza virus vaccine, whole virus DoD influenza virus vaccine, whole virus 2001 TRANSCR IBED 16 complet ed influenza virus vaccine, whole virus 04/16/02 Given Ambulat ory Pharmac y influenza virus vaccine, whole virus 1 2001 Unknown, Provider 16 Transcribed (TRS) complet ed influenza virus vaccine, whole virus DoD influenza virus vaccine, whole virus 1998 [id number] 16 [employer] complet ed influenza virus vaccine, whole virus 05/09/99 Given Ambulat ory Pharmac y influenza virus vaccine, whole virus 1998 [id number] 16 [employer] complet ed influenza virus vaccine, whole virus 05/09/99 Given Ambulat ory Pharmac y influenza virus vaccine, whole virus 1 1998 Unknown, Provider [id number] 16 [employer] (CON) complet ed influenza virus vaccine, whole virus DoD Vital Signs Combined list of inpatient and outpatient Vital Signs from Department of Defense and Veterans Affairs, ranging from 12 months to all on record, depending upon the facility. Vital Sign Value Date Comments Source No data available for this section Ambulatory Pharmacy Encounters Combined list of: 1) Encounters from Department of Veterans Affairs facilities going back up to thelast 18 months. 2) Encounters from the Department of Defense facilities going back up to 280 months. Location Location Details Encounter Type Encounter Number Reason For Visit Attending Provider ADM Date DC Date Status Disposition Source [address] [place] [address] [place] [facility]Fam tanya Practice Non-GME I1) OUTPATIENT [id number] flu shot HECTOR HONG 05/30 Released w/o Limitations [address] [place] [address] [place] [facility])(F amily Practic e Non-GME FHI1) [facility] Outpatient Encounter [id number] 1 12/30 [facility] Procedures Combined list of: 1) Procedures from Department of Veterans Affairs facilities going back up to thelast 18 months, not all VA non-surgical procedures are included; 2) All procedures from the Department of Defense facilities. Procedure Procedure Type Code Date Perfomer Comments Sourc e Influenza Split Virus Vaccine 0.5mL Dosage Intramuscular [address] [facility] No data available for this section Ambulato ry Pharmacy Social History Combined list of available smoking, tobacco, and other social history from Department of Defense and Veterans Affairs facilities. Social History Type Response Date Comment [facility] isabel This section is an empty social history section. DoD Assessment and Plan Combined list of future care activities from Department of Defense and Veterans Affairs facilities (e.g., assessment and plan notes, appointments, orders, and referrals). Additional future care activities may be listed in the Plan of Care section. Result Assessment and Plan Date Source Assessment and Plan No data available for this section 06/29/2024 Ambulatory Pharmacy Functional Status Combined list of recent functional and cognitive assessments recorded at Department of Defense and Veterans Affairs ([place]VA Functional [place] Measurement (FIM) Scale: 1 = Total Assistance (Subject = 0% +), 2 = Maximal Assistance (Subject = 25% +), 3 = Moderate Assistance (Subject = 50% +), 4 = Minimal Assistance (Subject = 75% +), 5 = Supervision, 6 = Modified [place] (Device), 7 = Complete [place] (Timely, Safely). Assessment Date/Time Source Assessment Type Assessment Skill Assessment Score Assessment Details No data available for this section
--- OUTSIDE RECORDS SUMMARY | 2024-06-29 00:10 | XMS_ITS | Encounter Summary ---
Author Organization [facility] Address [address] [place] [address]. [place], [place] [address] [place] [id number] Care Team Providers Care Hog Feeder Name Role Phone Mick Flowers MD Primary Care Provider [phone] Encounter Details Date Type Department Care Team (Latest Contact Info) Description 09/18/2023 Travel Social History Tobacco Use Types Packs/Day [...] 10:00 AM CDT Office Visit [facility] Family & Internal Medicine - [address] [phone] Mick Flowers MD [address] [place] [address] [phone] documented as of this encounter Visit Diagnoses Not on filedocumented in this encounter Additional Health Concerns Assessment Noted Time PHQ-9 Depression Total Score: 0 04/28/20 21 11:07 AM CDT documented as of this encounter Care Teams Hog Feeder Relationship Specialty Start Date End Date Mick Flowers MD [address] [place] [address] PCP - General 10/15/14 documented as of this encounter
--- OUTSIDE RECORDS SUMMARY | 2024-06-29 00:10 | XMS_ITS | Encounter Summary ---
Author Organization [facility] Address [address] [place] [address]. [place], [place] [id number] [place] [address] Care Team Providers Care Stonework Supervisor Name Role Phone Mick Flowers MD Primary Care Provider [phone] Reason for Visit * Reason Comments Physical Encounter Details Date Type Department Care Team ([facility] st Contact Info) Description 08/29/2022 10:40 AM NEWSPAPER DISTRIBUTOR SUPERVISOR Office Visit [facility] Family & Internal Medicine [address] [phone] Mick Flowers MD [address] [place] [phone] Physical Social History Tobacco Use Types Packs/Day Years [...] Coronavirus/COVID-19? No / Unsure 08/29/2022 10:21 AM NEWSPAPER DISTRIBUTOR SUPERVISOR documented as of this encounter Last Filed Vital Signs Vital Sign Reading Time Taken Comments Blood Pressure 110/78 08/29/2022 11:10 AM NEWSPAPER DISTRIBUTOR SUPERVISOR Pulse 68 08/29/2022 11:10 AM NEWSPAPER DISTRIBUTOR SUPERVISOR Temperature 35.9 ??C (96.7 ??F) 08/29/2022 11:[address] Respiratory Rate 18 08/29/2022 11:10 AM NEWSPAPER DISTRIBUTOR SUPERVISOR Oxygen Saturation 98% 08/29/2022 11:10 AM NEWSPAPER DISTRIBUTOR SUPERVISOR Inhaled Oxygen Concentration - - Weight 81.2 kg (179 lb 1.6 oz) 08/29/2022 11:10 AM NEWSPAPER DISTRIBUTOR SUPERVISOR Height 177.8 cm (5' 10 ) 08/29/2022 11:10 AM NEWSPAPER DISTRIBUTOR SUPERVISOR Body Mass Index 25.7 08/29/2022 11:10 AM NEWSPAPER DISTRIBUTOR SUPERVISOR documented in this encounter Progress Notes * Mick Flowers MD - 08/29/2022 10:40 AM CST The patient is being seen for a health maintenance evaluation. The last health maintenance exam wasone year ago. General Health: fair Dental Health: Sees dentist regularly, Brushes regularly and Flosses regularly Vision Health: Wears glasses and Last eye exam < 1 year ago Hearing Health: No hearing problems Immunizations Needed: Tdap and Shingrix Weight: Normal BMI Physical Activity: Excersises regularly Sexual Activity: Social History Substance and Sexual Activity Sexual Activity Yes ??? Partners: Female Prostate Cancer Screening: No family history of prostate cancer Testicular Cancer Screening: Monthly self testicular exam Colorectal Cancer Screening: Colonoscopy last done: 11/08/2021 and Colonoscopy every 10 years Metabolic Screening: Glucose screen: Last done: 08/23/2022, Lipid Profile: Last done: 08/23/2022 and Thyroid Function Test: Last done: 03/17/2022 Health Risks Cardiovascular Risk Factors: None General Health Risks: none Safety Elements Used: Seat belts, Safe driving habits, Sunscreen, Smoke detector, Carbon monoxide detector, Bathroom grab bars and Fall prevention measures Review of Systems Constitutional: Negative for malaise/fatigue and weight loss. HENT: Negative for congestion, ear pain, hearing loss and tinnitus. Eyes: Negative for blurred vision. Respiratory: Negative for cough, shortness of breath and wheezing. Cardiovascular: Negative for chest pain, palpitations, claudication, leg swelling and PND. Gastrointestinal: Negative for abdominal pain, heartburn and vomiting. Genitourinary: Negative for dysuria and frequency. Musculoskeletal: Negative for back pain, joint pain and myalgias. Skin: Negative for itching and rash. Neurological: Positive for focal weakness. Negative for weakness and headaches. Psychiatric/Behavioral: Negative for depression. The patient does not have insomnia. Patient Active Problem List Diagnosis ??? Abnormal gait ??? Anxiety ??? Benign essential hypertension ??? Eczema ??? Edema ??? Erectile dysfunction ??? Hyperlipidemia ??? Malignant tumor of colon (CMS/HCC) ??? Multiple sclerosis (CMS/HCC) ??? Neurogenic bladder ??? OAB (overactive bladder) ??? Primary insomnia ??? Self-catheterizes urinary bladder ??? Urethral stricture ??? Thoracic spondylosis ??? Gastroesophageal reflux disease, unspecified whether esophagitis present ??? Lower abdominal pain ??? Change in bowel habit ??? Diarrhea ??? Vitamin D deficiency Past Medical History: Diagnosis Date ??? Anxiety ??? Erectile dysfunction ??? Herpes zoster ??? Hyperlipidemia ??? Hypertension ??? Multiple sclerosis (CMS/HCC) ??? S/P Botox injection in bladder every 6 months Past Surgical History: Procedure Laterality Date ??? BLADDER SURGERY ??? COLONOSCOPY 2010 normal per pt ??? COLONOSCOPY N/A 11/08/2020 COLONOSCOPY WITH descending colon polypectomy via cold snare performed by Kilo Myers MD at [facility] Family History Problem Relation Name Age of Onset ??? Cancer Mother ??? Hypertension Father ??? Cancer Father Social History Socioeconomic History ??? Marital status: Spouse name: Not on file ??? Number of children: Not on file ??? Years of education: Not on file ??? Highest education level: Not on file Occupational History ??? Not on file Tobacco Use ??? Smoking status: Never ??? Smokeless tobacco: Never Vaping Use ??? Vaping Use: Never used Substance and Sexual Activity ??? Alcohol use: Yes Comment: couple drinks on the weeknd ??? Drug use: Yes Frequency: 4.0 times per week Types: Marijuana Comment: marijuana edibles for sleep ??? Sexual activity: Yes Partners: Female Other Topics Concern ??? Not on file Social History Narrative ??? Not on file Social Determinants of Health Financial Resource Strain: Not on file Food Insecurity: Not on file Transportation Needs: Not on file Physical Activity: Not on file Stress: Not on file Social Connections: Not on file Intimate Partner Violence: Not on file Housing Stability: Not on file Immunization History Administered Date(s) Administered ??? Afluria 36 MONTHS+ (Prefilled Syringe IIV4) 04/02/2019 ??? Flucelvax 6 Months+ (Prefilled Syringe) 03/26/2020 ??? Influenza 04/16/2013, 06/01/2017 ??? Influenza Adult (Generic) 03/31/2015, 03/31/2015, 03/26/2016, 05/31/2017, 04/02/2018, 04/03/2018, 04/04/2021, 04/10/2022 ??? PFIZER COVID-19 (HEART CAP), MRNA, LNP-S, PF, 30 MCG/0.3 ML BOGDAN-SUCROSE, IM 01/17/2022 ??? PFIZER COVID-19 (ORIGINAL FORMULATION, PURPLE CAP), MRNA, LNP-S, PF, 30 MCG/0.3 ML DOSE 09/06/2020, 09/27/2020, 04/04/2021 ??? Zoster (Zostavax) [address]2238 Unt/0.65Ml 07/11/2017 Current Outpatient Medications Medication Sig Dispense Refill ??? ALPRAZolam (XANAX) 0.5 MG tablet TAKE 1 TABLET(0.5 MG) BY MOUTH THREE TIMES DAILY NEEDED 60 tablet 0 ??? Alprostadil, Vasodilator, (EDEX) 20 MCG Kit 1 mL by Intracavernosal route as needed. 10-30 minutes prior to intercourse 30 kit 1 ??? amitriptyline (ELAVIL) 25 MG tablet Take 1 tablet (25 mg total) by mouth 2 (two) times a day. 180 tablet 1 ??? atorvastatin (LIPITOR) 40 MG tablet Take 1 tablet (40 mg total) by mouth nightly at bedtime. 90tablet 3 ??? famotidine (PEPCID) 20 MG tablet Take 1 tablet (20 mg total) by mouth 2 (two) times daily. 180 tablet 1 ??? felodipine ER (PLENDIL) 5 MG 24 hr tablet Take 2 tablets (10 mg total) by mouth daily. 60 tablet 3 ??? HYDROCHLOROTHIAZIDE 25 MG tablet TAKE 1 TABLET(25 MG) BY MOUTH EVERY MORNING 90 tablet 3 ??? hyoscyamine 0.125 MG SL tablet DISSOLVE 1 TABLET UNDER THE TONGUE EVERY 6 HOURS NEEDED ??? Insulin Syringe-Needle U-100 (INSULIN SYRINGE .5CC/28G) 28G X 1/2 0.5 ML Misc ??? OnabotulinumtoxinA (BOTOX IJ) Inject as directed every 6 (six) months. Indications: Overactive Bladder ??? potassium chloride CR 20 MEQ Tab CR tablet TAKE 1 TABLET BY MOUTH DAILY 90 tablet 3 ??? valsartan (DIOVAN) 320 MG tablet TAKE 1 TABLET(320 MG) BY MOUTH DAILY 90 tablet 0 ??? urea 40 % Cream APPLY AND RUB IN A THIN FILM TO AFFECTED AREA(S) DAILY. 198.4 g 5 No current facility-administered medications for this visit. Current Outpatient Medications on File Prior to Visit Medication Sig ??? ALPRAZolam (XANAX) 0.5 MG tablet TAKE 1 TABLET(0.5 MG) BY MOUTH THREE TIMES DAILY NEEDED ??? Alprostadil, Vasodilator, (EDEX) 20 MCG Kit 1 mL by Intracavernosal route as needed. 10-30 minutes prior to intercourse ??? amitriptyline (ELAVIL) 25 MG tablet Take 1 tablet (25 mg total) by mouth 2 (two) times a day. ??? atorvastatin (LIPITOR) 40 MG tablet Take 1 tablet (40 mg total) by mouth nightly at bedtime. ??? famotidine (PEPCID) 20 MG tablet Take 1 tablet (20 mg total) by mouth 2 (two) times daily. ??? felodipine ER (PLENDIL) 5 MG 24 hr tablet Take 2 tablets (10 mg total) by mouth daily. ??? HYDROCHLOROTHIAZIDE 25 MG tablet TAKE 1 TABLET(25 MG) BY MOUTH EVERY MORNING ??? hyoscyamine 0.125 MG SL tablet DISSOLVE 1 TABLET UNDER THE TONGUE EVERY 6 HOURS NEEDED ??? Insulin Syringe-Needle U-100 (INSULIN SYRINGE .5CC/28G) 28G X 1/2 0.5 ML Misc ??? OnabotulinumtoxinA (BOTOX IJ) Inject as directed every 6 (six) months. Indications: Overactive Bladder ??? potassium chloride CR 20 MEQ Tab CR tablet TAKE 1 TABLET BY MOUTH DAILY ??? valsartan (DIOVAN) 320 MG tablet TAKE 1 TABLET(320 MG) BY MOUTH DAILY ??? urea 40 % Cream APPLY AND RUB IN A THIN FILM TO AFFECTED AREA(S) DAILY. No current facility-administered medications on file prior to visit. No Known Allergies Objective: Vitals: 08/29/22 1110 BP: 110/78 Pulse: 68 Resp: 18 Temp: 96.7 ??F (35.9 ??C) SpO2: 98% Physical Exam Procedures Assessment: Patient Active Problem List Diagnosis ??? Abnormal gait ??? Anxiety ??? Benign essential hypertension ??? Eczema ??? Edema ??? Erectile dysfunction ??? Hyperlipidemia ??? Malignant tumor of colon (CMS/HCC) ??? Multiple sclerosis (CMS/HCC) ??? Neurogenic bladder ??? OAB (overactive bladder) ??? Primary insomnia ??? Self-catheterizes urinary bladder ??? Urethral stricture ??? Thoracic spondylosis ??? Gastroesophageal reflux disease, unspecified whether esophagitis present ??? Lower abdominal pain ??? Change in bowel habit ??? Diarrhea ??? Vitamin D deficiency Plan: Doc was seen today for physical. Diagnoses and all orders for this visit: Erectile dysfunction, unspecified erectile dysfunction type The following orders have not been finalized: - Alprostadil, Vasodilator, (EDEX) 20 MCG Kit Other orders The following orders have not been finalized: - Insulin Syringe-Needle U-100 (INSULIN SYRINGE .5CC/28G) 28G X 1/2 0.5 ML Misc Discussion/Summary: MICK FLOWERS MD PAPER DISTRIBUTOR SUPERVISOR documented in this encounter Plan of Treatment Upcoming Encounters Date Type Department Care Team (Late st Contact Info) Description 09/09/2024 10:00 AM CDT Office Visit [facility] Family & Internal Medicine [address] [phone] Mick Flowers MD [address] [place] [address] documented as of this encounter Visit Diagnoses Diagnosis Need for grraurafmp-ffgasho-hegylwdzh (Tdap) vaccine- Primary Need for prophylactic vaccination with combined tcmdijywxm-zicsbbr-wbhbhlckb (DTP) vaccine Erectile dysfunction, unspecified erectile dysfunction type documented in this encounter Additional Health Concerns Assessment Noted Time PHQ-9 Depression Total Score: 0 04/28/20 21 11:07 AM CDT documented as of this encounter Care Teams Stonework Supervisor Relationship Specialty Start Date End Date Mick Flowers MD [address] [place] [address] PCP - General 10/15/14 documented as of this encounter
--- OUTSIDE RECORDS SUMMARY | 2024-06-29 00:10 | XMS_ITS | Encounter Summary ---
Author Organization [facility] Address [address] [place] [address]. [place], [place] [address] [place] [phone] Care Team Providers Care Food And Beverage Controller Name Role Phone Mick Flowers MD Primary Care Provider [phone] Reason for Visit * Reason Onset Date Comments Lab Results 01/08/2024 Encounter Details Date Type Department Care Team (Late st Contact Info) Description 01/08/2024 Telephone [facility] Family & Internal Medicine [facility] [address] [place] [address] Mick Flowers MD [address] [place] [address] [phone] Lab Results Social History Tobacco Use Types Packs/Day [...] Progress Notes * Josi Hassan MA - 01/08/2024 8:27 AM CDT Patient informed tn * Josi Hassan MA - 01/08/2024 8:26 AM CDT ----- Message from Dr. Mick Flowers sent at 01/06/2024 3:49 PM CDT ----- Labs are good. documented in this encounter Plan of Treatment Upcoming Encounters Date Type Department Care Team (Late st Contact Info) Description 09/09/2024 10:00 AM CDT Office Visit [facility] Family & Internal Medicine [address] [phone] Mick Flowers MD [address] [place] [phone] documented as of this encounter Visit Diagnoses Not on filedocumented in this encounter Additional Health Concerns Assessment Noted Time PHQ-9 Depression Total Score: 0 04/28/20 21 11:07 AM CDT documented as of this encounter Care Teams Food And Beverage Controller Relationship Specialty Start Date End Date Mick Flowers MD [address] [place] [address] PCP - General 10/15/14 documented as of this encounter
--- OUTSIDE RECORDS SUMMARY | 2024-06-29 00:10 | XMS_ITS | Encounter Summary ---
Author Organization [facility] Address [address] [place] [address]. [place], [place] [address] [place] [address] Care Team Providers Care Cutting Department Supervisor Name Role Phone Mick Flowers MD Primary Care Provider [phone] Reason for Visit * Reason Comments Allied Health Visit BP check Encounter Details Date Type Department Care Team (Latest Contact Info) Description 03/28/2022 10:20 AM CDT Allied Health/Nurse Visit [facility] Family & Internal Medicine [address] [address] Mick Flowers MD [address] [place] [address] [phone] Allied Health Visit (BP check) Social History Tobacco Use Types Packs/Day Years Used Date Smoking Tobacco: Never Smokeless Tobacco: Never Alcohol Use Standard Drinks/Week Comments Yes 0 (1 standard drink = 0.6 oz pur e alcohol) [place] 4 oz every night AUDIT-C Answer Date [...] Progress Notes * Gela Solo MA - 03/28/2022 10:20 AM CDT Patient presented to office to check the accuracy of his at home BP monitor. Home Monitor BP 151/108 Manual BP 142/94 Patient reports monitor is old, he received this monitor after his father . Patient was recommended to buy a new monitor. documented in this encounter Plan of Treatment Upcoming Encounters Date Type Department Care Team (Late st Contact Info) Description 09/09/2024 10:00 AM CDT Office Visit [facility] Family & Internal Medicine [address] [address] Mick Flowers MD [address] [place] [address] documented as of this encounter Visit Diagnoses Diagnosis Hypertension- Primary Unspecified essential hypertension documented in this encounter Additional Health Concerns Assessment Noted Time PHQ-9 Depression Total Score: 0 04/28/20 21 11:07 AM CDT documented as of this encounter Care Teams Cutting Department Supervisor Relationship Specialty Start Date End Date Mick Flowers MD [address] [place] [address] PCP - General 10/15/14 documented as of this encounter
--- OUTSIDE RECORDS SUMMARY | 2024-06-29 00:10 | XMS_ITS | Encounter Summary ---
Author Organization [facility] Address [address] [place] [address]. [place], [place] [address] [place] [address] Care Team Providers Care Vp Analytics Name Role Phone Mick Flowers MD Primary Care Provider [phone] Reason for Referral * Consultation (Routine) - Authorized Specialty Diagnoses / Procedures Referred By Contac t Referred To Contact HEART & VASCULAR CARE Diagnoses Benign essential hypertension Procedures OFFICE/OUTPATIENT NEW LOW MDM 30-44 MINUTES OFFICE/OUTPT VISIT,NEW,LEVL IV OFFICE/OUTPT VISIT,NEW,LEVL V OFFICE/OUTPT VISIT,EST,LEVL III OFFICE/OUTPT VISIT,EST,LEVL IV OFFICE/OUTPT VISIT,EST,LEVL V Mick Flowers MD [address] [place] [address] Phone: tel: fax: Georgia Yee MD [address] [facility] [address] [place] [address] Phone: tel: fax: Referral ID Status Reason Start Date Expiration Date Visits Requested Visits Authorized [id number] Authorized Specialty Services 02/28/2024 02/26/2025 99 99 Reason for Visit * Reason Onset Date Comments Referral Request 02/22/2024 Encounter Details Date Type Department Care Team (Late st Contact Info) Description 02/22/2024 Telephone [facility] Family & Internal Medicine [facility] [address] [place] [address] Mick Flowers MD [address] [place] [address] Referral Request Social History Tobacco Use Types [...] Progress Notes * Gela Solo MA - 02/27/2024 2:09 PM CDT Referral ordered. 02/27/2024 2:09 PM * Mick Flowers MD - 02/24/2024 10:59 PM CDT Okay for referral. * Gela Solo MA - 02/22/2024 12:09 PM CDT The patient called for a referral to the following physician: Is this a new consult:Yes. 's name: Georgia SCHROEDER [id number] Specialty: Cardiology Reason for referral (diagnosis): I10 Appointment: 03/05/2024 Last office visit at this office: Last visit with MICK FLOWERS in FAMILY PRACTICE was on: 09/04/2023 in [facility] Future appointment scheduled: Future Appointments Date Time Provider Department Center 09/09/2024 10:00 AM Mick Flowers MD [id number] documented in this encounter Plan of Treatment Upcoming Encounters Date Type Department Care Team (Late st Contact Info) Description 09/09/2024 10:00 AM CDT Office Visit [facility] Medical Group Family & Internal Medicine [address] [address] Mick Flowers MD [address] [place] [address] Scheduled Referrals Name Type Priority Associated Diagnoses Orde r Schedule Ambulatory referral to Cardiology, Adult (OTHER) Referral Routine Benign essential hypertension Ordered: 02/27/2024 documented as of this encounter Visit Diagnoses Diagnosis Benign essential hypertension- Primary Essential hypertension, benign documented in this encounter Additional Health Concerns Assessment Noted Time PHQ-9 Depression Total Score: 0 04/28/20 21 11:07 AM CDT documented as of this encounter Care Teams Vp Analytics Relationship Specialty Start Date End Date Mick Flowers MD [address] [place] [address] PCP - General 10/15/14 documented as of this encounter
--- OUTSIDE RECORDS SUMMARY | 2024-06-29 00:10 | XMS_ITS | Encounter Summary ---
Author Organization [facility] Address [address] [place] [address]. [place], [place] [address] [place] [address] Care Team Providers Care Mineralogy Teacher Name Role Phone Mick Flowers MD Primary Care Provider [phone] Encounter Details Date Type Department Care Team (Latest Contact Info) Description 10/31/2022 Scan HEALTH INFO SRVCS Scanned, Doc Med [...] Description 09/09/2024 10:00 AM CDT Office Visit [facility] Family & Internal Medicine [address] [phone] Mick Flowers MD [address] [place] [address] [phone] documented as of this encounter Visit Diagnoses Not on filedocumented in this encounter Additional Health Concerns Assessment Noted Time PHQ-9 Depression Total Score: 0 04/28/20 21 11:07 AM CDT documented as of this encounter Care Teams Mineralogy Teacher Relationship Specialty Start Date End Date Mick Flowers MD [address] [place] [address] PCP - General 10/15/14 documented as of this encounter
--- OUTSIDE RECORDS SUMMARY | 2024-06-29 00:10 | XMS_ITS | Encounter Summary ---
Author Organization [facility] Address [address] [place] [address]. [place], [place] [address] [place] [address] Care Team Providers Care Inhalation Therapist Name Role Phone Mick Flowers MD Primary Care Provider [phone] Encounter Details Date Type Department Care Team (Latest Contact Info) Description 05/22/2022 Scan HEALTH INFO SRVCS Scanned, Doc Med Group Social History Tobacco Use Types Packs/Day Years Used Date Smoking Tobacco: Never Smokeless Tobacco: Never Alcohol Use Standard Drinks/Week Comments Yes 0 (1 standard drink = 0.6 oz pur e alcohol) [place] 4 oz every night AUDIT-C Answer Date [...] Office Visit [facility] Medical [facility] Family & Internal Medicine [address] [address] Mick Flowers MD [address] [place] [address] documented as of this encounter Visit Diagnoses Not on filedocumented in this encounter Additional Health Concerns Assessment Noted Time PHQ-9 Depression Total Score: 0 04/28/20 21 11:07 AM CDT documented as of this encounter Care Teams Inhalation Therapist Relationship Specialty Start Date End Date Mick Flowers MD [address] [place] [address] PCP - General 10/15/14 documented as of this encounter
--- OUTSIDE RECORDS SUMMARY | 2024-06-29 00:10 | XMS_ITS | Encounter Summary ---
Author Organization [facility] Address [address] [place] [address]. [place], [place] [address] [place] [address] Care Team Providers Care Location And Measurement Technician Name Role Phone Mick Flowers MD Primary Care Provider [phone] Reason for Visit * Reason Onset Date Comments Lab Order 06/17/2024 Encounter Details Date Type Department Care Team (Late st Contact Info) Description 06/17/2024 Telephone [facility] Family & Internal Medicine [facility] [address] [place] [address] Mick Flowers MD [address] [place] [address] [phone] Lab Order Social History Tobacco Use Types Packs/Day Years [...] Progress Notes * Gela Solo MA - 06/19/2024 1:53 PM CST Left detailed message that lab order was faxed to [email or web address] [place]. UCT ENGINEER * Mick Flowers MD - 06/19/2024 12:30 PM CST Annual lipid labs with psa UCT ENGINEER * Valentine Saez - 06/17/2024 8:55 AM CST Patient is requesting a full panel of labs to be sent to [email or web address] [place] . Please call patient once these are sent. UCT ENGINEER documented in this encounter Plan of Treatment Upcoming Encounters Date Type Department Care Team (Late st Contact Info) Description 09/09/2024 10:00 AM CDT Office Visit [facility] Group Family & Internal Medicine - [place] [address] [place] [address] Mick Flowers MD [address] [place] [address] Scheduled Orders Name Type Priority Associated Diagnoses Orde r Schedule CBC W/DIFF AUTOMATED Lab Routine Benign essential hypertension Mixed hyperlipidemia Expected: 06/19/2024, Expires: 06/19/2025 LIPID PANEL Lab Routine Benign essential hypertension Mixed hyperlipidemia Expected: 06/19/2024, Expires: 06/19/2025 TSH W/REFLEX Lab Routine Benign essential hypertension Mixed hyperlipidemia Expected: 06/19/2024, Expires: 06/19/2025 PROSTATE SPECIFIC ANTIGEN,SCREENING Lab Routine Screening PSA (prostate specific antigen) Expected: 06/19/2024, Expires: 06/19/2025 VITAMIN D, 25 OH Lab Routine Vitamin D deficiency Expected: 06/19/2024, Expires: 06/19/2025 URIC ACID BLOOD Lab Routine Benign essential hypertension Mixed hyperlipidemia Expected: 06/19/2024, Expires: 06/19/2025 COMPREHENSIVE METABOLIC PANEL Lab Routine Benign essential hypertension Mixed hyperlipidemia Expected: 06/19/2024, Expires: 06/19/2025 URINALYSIS Lab Routine Benign essential hypertension Self-catheterizes urinary bladder Expected: 06/19/2024, Expires: 06/19/2025 documented as of this encounter Visit Diagnoses Diagnosis Screening PSA (prostate specific antigen)- Primary Special screening for malignant neoplasm of prostate Benign essential hypertension Essential hypertension, benign Mixed hyperlipidemia Vitamin D deficiency Unspecified vitamin D deficiency Self-catheterizes urinary bladder Other specified conditions influencing health status documented in this encounter Additional Health Concerns Assessment Noted Time PHQ-9 Depression Total Score: 0 04/28/20 21 11:07 AM CDT documented as of this encounter Care Teams Location And Measurement Technician Relationship Specialty Start Date End Date Mick Flowers MD [address] [place] [address] PCP - General 10/15/14 documented as of this encounter
--- OUTSIDE RECORDS SUMMARY | 2024-06-29 00:10 | XMS_ITS | Encounter Summary ---
Author Organization [facility] Address [address] [place] [address]. [place], [place] [address] [place] [address] Care Team Providers Care Exhauster Name Role Phone Mick Flowers MD Primary Care Provider [phone] Reason for Referral * Imaging (Routine) - Closed Specialty Diagnoses / Procedures Referred By Contac t Referred To Contact RADIOLOGY Diagnoses Asbestos exposure Procedures CT CHEST WO CON Mick Flowers MD [address] [place] [address] Phone: tel: fax: [address] [address] Phone: tel: fax: Referral ID Status Reason Start Date Expiration Date Visits Re quested Visits Authorized [id number] Closed 01/30/2023 01/31/2024 1 1 Reason for Visit * Reason Onset Date Comments Referral 01/09/2023 Encounter Details Date Type Department Care Team (Late st Contact Info) Description 01/09/2023 Telephone [facility] Medical Group Family & Internal Medicine - [place] [address] [place] [address] Mick Flowers MD [address] [place] [address] Referral Social History Tobacco Use Types Packs/Day [...] Progress Notes * Gela Ashley MA - 01/30/2023 3:12 PM CDTAddended by: GELA ASHLEY on: 01/30/2023 03:12 PM Modules accepted: Orders * Gela Ashley MA - 01/30/2023 3:12 PM CDT Order faxed to [facility] at [phone]. Patient informed and v/u, he will call to schedule if not contacted by [facility]. * Anjana Saucedo - 01/30/2023 9:15 AM CDT Pt called back and stated okay to leave detailed message if not available. Also stated he would like referral sent to [facility] * Kanchan Zuñiga MA - 01/26/2023 4:16 PM CDT Lmtc 01/26/23 * Mick Flowers MD - 01/25/2023 2:32 PM CDT We can order a CT of his lungs without contrast OR [facility]. * Anjana Saucedo - 01/23/2023 8:43 AM CDT Pt called in and stated that he is retired and cannot contact old employer to get taken care of. 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 Please advise. * Valentine Saez - 01/09/2023 9:46 AM CDT Patient brought in an Asbestos notification of exposure from the and was requesting a screening test. I scanned his paperwork in . [phone] documented in this encounter Plan of Treatment Upcoming Encounters Date Type Department Care Team (Late st Contact Info) Description 09/09/2024 10:00 AM CDT Office Visit [facility] Medical Group Family & Internal Medicine [address] [phone] Mick Flowers MD [address] [place] [address] Scheduled Orders Name Type Priority Associated Diagnoses Orde r Schedule CT CHEST WO CON CT Routine Asbestos exposure Expected: 01/30/2023, Expires: 01/31/2024 documented as of this encounter Visit Diagnoses Diagnosis Asbestos exposure- Primary Personal history of contact with and (suspected) exposure to asbestos documented in this encounter Additional Health Concerns Assessment Noted Time PHQ-9 Depression Total Score: 0 04/28/20 21 11:07 AM CDT documented as of this encounter Care Teams Exhauster Relationship Specialty Start Date End Date Mick Flowers MD [address] [place] [address] PCP - General 10/15/14 documented as of this encounter
--- OUTSIDE RECORDS SUMMARY | 2024-06-29 00:10 | XMS_ITS | Encounter Summary ---
Author Organization [facility] Address [address] [place] [address]. [place], [place] [address] [place] [address] Care Team Providers Care Preschool Assistant Teacher Name Role Phone Mick Flowers MD Primary Care Provider [phone] Reason for Visit * Reason Onset Date Comments Medication 06/13/2022 Encounter Details Date Type Department Care Team (Late st Contact Info) Description 06/13/[address] [facility] Family & Internal Medicine [place] [address] [place] [address] Mick Flowers MD [address] [place] [address] [phone] Medication Social History Tobacco Use Types Packs/Day Years Used Date Smoking Tobacco: Never Smokeless Tobacco: Never Alcohol Use Standard Drinks/Week Comments Yes 0 (1 standard drink = 0.6 oz pur e alcohol) [place] 4 oz every night AUDIT-C Answer Date [...] Progress Notes * Gela Solo MA - 06/13/2022 2:15 PM CST Rx sent to pharmacy GER CLINICAL APPLICATIONS * Mick Flowers MD - 06/13/2022 1:24 PM CST Okay to change. GER CLINICAL APPLICATIONS * Salina Menchaca - 06/13/2022 10:05 AM CST Patient states on his Feldipine 10 Mg, he is wanting to go back to the 5MG twice a day. He states that when he takes the 1 10 MG his ankles swell up. Patient is asking for a 3 month supply. He did not bean picker the 10 Mg script that we just sent in. GER CLINICAL APPLICATIONS documented in this encounter Plan of Treatment Upcoming Encounters Date Type Department Care Team (Late st Contact Info) Description 09/09/2024 10:00 AM CDT Office Visit [facility] Family & Internal Medicine [address] [phone] Mick Flowers MD [address] [place] [address] documented as of this encounter Visit Diagnoses Diagnosis Benign essential hypertension Essential hypertension, benign documented in this encounter Additional Health Concerns Assessment Noted Time PHQ-9 Depression Total Score: 0 04/28/20 21 11:07 AM CDT documented as of this encounter Care Teams Preschool Assistant Teacher Relationship Specialty Start Date End Date Mick Flowers MD [address] [place] [address] PCP - General 10/15/14 documented as of this encounter
--- OUTSIDE RECORDS SUMMARY | 2024-06-29 00:10 | XMS_ITS | Encounter Summary ---
Author Organization [facility] Address [address] [place] [address]. [place], [place] [address] [place] [address] Care Team Providers Care Cloth Dyeing Range Tender Name Role Phone Mick Flowers MD Primary Care Provider [phone] Encounter Details Date Type Department Care Team (Latest Contact Info) Description 03/12/2023 Scan HEALTH INFO SRVCS Scanned, Doc Med [...] Description 09/09/2024 10:00 AM CDT Office Visit [facility] Medical Group Family & Internal Medicine [address] [address] Mick Flowers MD [address] [place] [address] [phone] documented as of this encounter Visit Diagnoses Not on filedocumented in this encounter Additional Health Concerns Assessment Noted Time PHQ-9 Depression Total Score: 0 04/28/20 21 11:07 AM CDT documented as of this encounter Care Teams Cloth Dyeing Range Tender Relationship Specialty Start Date End Date Mick Flowers MD [address] [place] [address] PCP - General 10/15/14 documented as of this encounter
--- OUTSIDE RECORDS SUMMARY | 2024-06-29 00:11 | XMS_ITS | Encounter Summary ---
Author Organization [facility] Address [address] [place] [address]. [place], [place] [address] [place] [address] Care Team Providers Care Interventional Radiology Technologist Name Role Phone Mick Flowers MD Primary Care Provider [phone] Reason for Visit * Reason Onset Date Comments Pre Appt Labs 04/11/2021 Encounter Details Date Type Department Care Team (Late st Contact Info) Description 04/11/2021 Telephone [facility] Family & Internal Medicine [facility] [address] [place] [address] Mick Flowers MD [facility] [place], [place] [id number] Pre Appt Labs Social History Tobacco Use Types Packs/Day Years Used Date Smoking Tobacco: Never Smokeless Tobacco: Never Alcohol Use Standard Drinks/Week Comments Yes 0 (1 standard drink = 0.6 oz pur e alcohol) [place] 4 oz every night AUDIT-C Answer Date Recorded Frequency of Alcohol Consumption 4 or more times a week 10/07/2018 Average Number of Drinks 3 or 4 019 Frequency of Binge Drinking Weekly 09/23 PHQ-2 Answer Date Recorded PHQ-2 Score 0 10/13/2019 Sex and Gender Information Value Date Recorded Sex Assigned at Male 10/07/2018 11:33 AM CDT Legal Sex Male 9:27 PM CDT Gender Identity Male 10/07/2018 11:33 AM CDT Sexual Orientation Straight 10/07/2018 11 :33 AM CDT documented as of this encounter Progress Notes * Gela Solo MA - 04/15/2021 1:56 PM CDT Lab order faxed. Patient informed and v/u. * Mick Flowers MD - 04/11/2021 11:28 AM CDT 6 month lipid labs. * Adeola Ascencio - 04/11/2021 9:14 AM CDT Patient called in asking for lab orders before his upcoming appointment. He would like a call back whenever we fax them to [facility] [place]. documented in this encounter Plan of Treatment Upcoming Encounters Date Type Department Care Team (Late st Contact Info) Description 09/09/2024 10:00 AM CDT Office Visit [facility] Family & Internal Medicine - [address] [address] Mick Flowers MD [address] [place] [address] documented as of this encounter Procedures Procedure Name Priority Date/Time Associated Diagnosis Comments COMPREHENSIVE METABOLIC PANEL Routine 04/18/2021 9:11 AM CDT Benign essential hypertension Mixed hyperlipidemia LIPID PANEL Routine 04/18/2021 9:11 AM CDT Benign essential hypertension Mixed hyperlipidemia CK (CPK) Routine 04/18/2021 9:11 AM CDT Benign essential hypertension Mixed hyperlipidemia documented in this encounter Results * CK (CPK) (04/18/2021 9:11 AM CDT) TOTAL CK 125 44 - 196 U/L [facility] 04/18/2021 9:11 AM CDT 04/18/2021 9:11 AM CDT Narrative [facility] - 04/19/2021 3:23 AM CDT FASTING:YES FASTING: YES us Mick Flowers MD LABORATORY Final Result [facility] [address] [place], [place] [address] * COMPREHENSIVE METABOLIC PANEL (04/18/2021 9:11 AM CDT) [facility] GLUCOSE 94 65 - 99 mg/dL [facility] Comment: ? Fasting reference interval BUN 14 7 - 25 mg/dL [facility] CREATININE S/P/B 0.94 0.70 - 1.33 mg/dL [facility] Comment: For patients >49 years of age, the reference limit for Creatinine is approximately 13% higher for people identified as -Burmese. EGFR NON-AFR. AMER. 90 > OR = 60 mL/min/1 .73m2 [facility] EGFR AFR. AMER. 105 > OR = 60 mL/min/1 .73m2 [facility] BUN CREATININE RATIO NOT APPLICABLE 6 - 22 (calc) [facility] SODIUM S/P/B 140 135 - 146 mmol/L [facility] POTASSIUM S/P/B 4.3 3.5 - 5.3 mmol/L [facility] CHLORIDE S/P/B 104 98 - 110 mmol/L [facility] CO2 28 20 - 32 mmol/L [facility] CALCIUM S/P/B 10.0 8.6 - 10.3 mg/dL [facility] TOTAL PROTEIN S/P/B 6.6 6.1 - 8.1 g/dL [facility] ALBUMIN S/P/B 4.5 3.6 - 5.1 g/dL [facility] GLOBULIN 2.1 1.9 - 3.7 g/dL (calc) [facility] ALBUMIN/GLOBULIN RATIO 2.1 1.0 - 2.5 (calc) [facility] BILIRUBIN TOTAL S/P/B 0.6 0.2 - 1.2 mg/dL [facility] ALKALINE PHOSPHATASE S/P/B 113 35 - 144 U/L [facility] AST 20 10 - 35 U/L [facility] ALT 30 9 - 46 U/L [facility] 04/18/2021 9:11 AM CDT 04/18/2021 9:11 AM CDT Narrative [facility] - 04/19/2021 3:23 AM CDT FASTING:YES FASTING: YES us Mick Flowers MD LABORATORY Final Result [facility] [address] [facility] [place] [address] * LIPID PANEL (04/18/2021 9:11 AM CDT) CHOLESTEROL 187 <200 mg/dL [facility] HDL 75 > OR = 40 mg/dL [facility] TRIGLYCERIDES 88 <150 mg/dL [facility] LDL (CALCULATED) 94 mg/dL (calc) [facility] Comment: Reference range: <100 Desirable range <100 mg/dL for primary prevention; ?? <70 mg/dL for patients with CHD or diabetic patients with > or = 2 CHD risk factors. LDL-C is now calculated using the Sergey-Noemi calculation, which is a validated novel method providing better accuracy than the Friedewald equation in the estimation of LDL-C. Sergey SOTO et al. MAKENZIE. 2013;310(19): 3218-9569 (http://education.Air Intelligence/faq/WZW465) CHOL/HDL RATIO 2.5 <5.0 (calc) [facility] NON HDL CHOLESTEROL 112 <130 mg/dL (calc) [facility] Comment: For patients with diabetes plus 1 major ASCVD risk factor, treating to a non-HDL-C goal of <100 mg/dL (LDL-C of <70 mg/dL) is considered a therapeutic option. 04/18/2021 9:11 AM CDT 04/18/2021 9:11 AM CDT Narrative [facility] - 04/19/2021 3:23 AM CDT FASTING:YES FASTING: YES us Mick Flowers MD LABORATORY Final Result [facility] [address] [place] [address] documented in this encounter Visit Diagnoses Diagnosis Benign essential hypertension- Primary Essential hypertension, benign Mixed hyperlipidemia documented in this encounter Care Teams Interventional Radiology Technologist Relationship Specialty Start Date End Date Mick Flowers MD [address] [place] [address] PCP - General 10/15/14 documented as of this encounter
--- OUTSIDE RECORDS SUMMARY | 2024-06-29 00:11 | XMS_ITS | Encounter Summary ---
Author Organization [facility] Address [address] [place] [address]. [place], [place] [address] [place] [address] Care Team Providers Care Social Worker School Name Role Phone Mick Flowers MD Primary Care Provider [phone] Reason for Visit * Reason Onset Date Comments Lab Results 09/09/2020 Encounter Details Date Type Department Care Team (Late st Contact Info) Description 09/09/2020 Telephone [facility] Family & Internal Medicine [facility] [address] [place] [address] Mick Flowers MD [address] [place] [id number] Lab Results Social History Tobacco Use Types Packs/Day Years Used Date Smoking Tobacco: Never Smokeless Tobacco: Never Alcohol Use Standard Drinks/Week Comments Yes 0 (1 standard drink = 0.6 oz pur e alcohol) AUDIT-C Answer Date Recorded Frequency of Alcohol [...] Progress Notes * Josi Hassan MA - 09/09/2020 12:13 PM CDT Patient contacted and informed of results tn * Josi Hassan MA - 09/09/2020 12:13 PM CDT ----- Message from Mick Flowers MD sent at 09/09/2020 9:51 AM CDT ----- Cholesterol improved will follow documented in this encounter Plan of Treatment Upcoming Encounters Date Type Department Care Team (Late st Contact Info) Description 09/09/2024 10:00 AM CDT Office Visit [facility] Family & Internal Medicine [address] [address] Mick Flowers MD [address] [place] [address] documented as of this encounter Visit Diagnoses Not on filedocumented in this encounter Care Teams Social Worker School Relationship Specialty Start Date End Date Mick Flowers MD [address] [place] [address] PCP - General 10/15/14 documented as of this encounter
--- OUTSIDE RECORDS SUMMARY | 2024-06-29 00:11 | XMS_ITS | Encounter Summary ---
Author Organization [facility] Address [address] [place] [address]. [place], [place] [address] [place] [address] Care Team Providers Care Health Officer Name Role Phone Mick Flowers MD Primary Care Provider [phone] Reason for Visit * Reason Onset Date Comments Forms 09/12/2021 Encounter Details Date Type Department Care Team (Late st Contact Info) Description 09/12/2021 Telephone [facility] Family & Internal Medicine [place] [address] [place] [address] Mick Flowers MD [facility] [place], [place] [phone] Forms Social History Tobacco Use Types Packs/Day Years Used Date Smoking Tobacco: Never Smokeless Tobacco: Never Alcohol Use Standard Drinks/Week Comments Yes 0 (1 standard drink = 0.6 oz pur e alcohol) [place] 4 oz every night AUDIT-C Answer Date Recorded Frequency of Alcohol Consumption 4 or more times a week 10/07/2018 Average Number of Drinks 3 or 4 019 Frequency of Binge Drinking Weekly 09/23 PHQ-2 Answer Date Recorded PHQ-2 Score - If the patient scores above 3, please move on to questions 3-9 0 04/28/2021 Sex and Gender Information Value Date Recorded Sex Assigned at Male 10/07/2018 11:33 AM CDT Legal Sex Male 9:27 PM CDT Gender Identity Male 10/07/2018 11:33 AM CDT Sexual Orientation Straight 10/07/2018 11 :33 AM CDT documented as of this encounter Progress Notes * Josi Hassan MA - 09/13/2021 3:39 PM CDT Patient informed and appt scheduled. tn * Mick Flowers MD - 09/13/2021 2:09 PM CDT Will need to have an appointment to do this, required by the state * Veronica Joiner - 09/12/2021 11:12 AM CDT Patient needing medical marijuana form updated. He has had it for 3 years and it needs renewed. Do we do that online? Or is there a physical form still documented in this encounter Plan of Treatment Upcoming Encounters Date Type Department Care Team (Late st Contact Info) Description 09/09/2024 10:00 AM CDT Office Visit [facility] Family & Internal Medicine [address] [address] Mick Flowers MD [address] [place] [address] documented as of this encounter Visit Diagnoses Not on filedocumented in this encounter Additional Health Concerns Assessment Noted Time PHQ-9 Depression Total Score: 0 04/28/20 21 11:07 AM CDT documented as of this encounter Care Teams Health Officer Relationship Specialty Start Date End Date Mick Flowers MD [address] [place] [address] PCP - General 10/15/14 documented as of this encounter
--- OUTSIDE RECORDS SUMMARY | 2024-06-29 00:11 | XMS_ITS | Encounter Summary ---
Author Organization [facility] Address [address] [place] [address]. [place], [place] [address] [place] [address] Care Team Providers Care Spreader Name Role Phone Mick Flowers MD Primary Care Provider [phone] Encounter Details Date Type Department Care Team (Latest Contact Info) Description 10/06/2021 Travel Social History Tobacco Use Types Packs/Day Years Used Date Smoking Tobacco: Never Smokeless Tobacco: Never Alcohol Use Standard Drinks/Week Comments Yes 0 (1 standard drink = 0.6 oz pur e alcohol) [place] 4 oz every night AUDIT-C Answer Date [...] suspected to have Coronavirus/COVID-19? No / Unsure 10/06/2021 1:47 PM CDT documented as of this encounter Plan of Treatment Upcoming Encounters Date Type Department Care Team (Late st Contact Info) Description 09/09/2024 10:00 AM CDT Office Visit [facility] Group Family & Internal Medicine [address] [address] Mick Flowers MD [address] [place] [address] documented as of this encounter Visit Diagnoses Not on filedocumented in this encounter Additional Health Concerns Assessment Noted Time PHQ-9 Depression Total Score: 0 04/28/20 21 11:07 AM CDT documented as of this encounter Care Teams Spreader Relationship Specialty Start Date End Date Mick Flowers MD [address] [place] [address] PCP - General 10/15/14 documented as of this encounter
--- OUTSIDE RECORDS SUMMARY | 2024-06-29 00:11 | XMS_ITS | Encounter Summary ---
Author Organization [facility] Address [address] [place] [address]. [place], [place] [address] [place] [address] Care Team Providers Care Coordinate Measuring Equipment Operator Name Role Phone Mick Flowers MD Primary Care Provider [phone] Encounter Details Date Type Department Care Team (Latest Contact Info) Description 04/04/2021 Scan HEALTH INFO SRV[facility] Scanned, Documents Social History Tobacco Use Types Packs/Day Years Used Date Smoking Tobacco: Never Smokeless Tobacco: Never Alcohol Use Standard Drinks/Week Comments Yes 0 (1 standard drink = 0.6 oz pur e alcohol) [place] 4 oz every night AUDIT-C Answer [...] Description 09/09/2024 10:00 AM CDT Office Visit [facility] Family & Internal Medicine - [address] [address] Mick Flowers MD [address] [place] [address] documented as of this encounter Visit Diagnoses Not on filedocumented in this encounter Care Teams Coordinate Measuring Equipment Operator Relationship Specialty Start Date End Date Mick Flowers MD [address] [place] [address] PCP - General 10/15/14 documented as of this encounter
--- OUTSIDE RECORDS SUMMARY | 2024-06-29 00:11 | XMS_ITS | Encounter Summary ---
Author Organization [facility] Address [address] [place] [address]. [place], [place] [address] [place] [address] Care Team Providers Care Automotive Instructor Name Role Phone Mick Flowers MD Primary Care Provider [phone] Encounter Details Date Type Department Care Team (Latest Contact Info) Description 11/02/2020 Travel Social History Tobacco Use Types Packs/Day Years Used Date Smoking Tobacco: Never Smokeless Tobacco: Never Alcohol Use Standard Drinks/Week Comments Yes 0 (1 standard drink = 0.6 oz pur e alcohol) [place] 4 oz every night AUDIT-C Answer Date [...] Exposure Response Date Recorded In the last month, have you been in contact with someone who was confirmed or suspected to have Coronavirus / COVID-19? No / Unsure 11/02/2020 8:40 AM CDT documented as of this encounter Plan of Treatment Upcoming Encounters Date Type Department Care Team (Late st Contact Info) Description 09/09/2024 10:00 AM CDT Office Visit [facility] Group Family & Internal Medicine - [address] [address] Mick Flowers MD [address] [place] [address] documented as of this encounter Visit Diagnoses Not on filedocumented in this encounter Care Teams Automotive Instructor Relationship Specialty Start Date End Date Mick Flowers MD [address] [place] [address] PCP - General 10/15/14 documented as of this encounter
--- OUTSIDE RECORDS SUMMARY | 2024-06-29 00:11 | XMS_ITS | Encounter Summary ---
Author Organization [facility] Address [address] [place] [address]. [place], [place] [address] [place] [address] Care Team Providers Care Diesel Engine Mechanic Apprentice Name Role Phone Mick Flowers MD Primary Care Provider [phone] Reason for Referral * Surgical (Routine) - Closed Specialty Diagnoses / Procedures Referred By Contac t Referred To Contact Diagnoses Gastroesophageal reflux disease, unspecified whether esophagitis present Lower abdominal pain Change in bowel habit Diarrhea Procedures Case request operating room: EGD, COLONOSCOPY Kilo Myers MD [address] [place] [address] Phone: tel: fax: Referral ID Status Reason Start Date Expiration Date Visits Re quested Visits Authorized [id number] Closed 10/04/2020 11/03/2021 1 1 Encounter Details Date Type Department Care Team (Late st Contact Info) Description 10/04/2020 Orders Only [facility] Group Multispecialty Care - [address] [place] [address] Kilo Myers MD [address] [place] [address] [place] [address] Social History Tobacco Use Types Packs/Day Years [...] have Coronavirus / COVID-19? No / Unsure 09/29/2020 8:26 AM CDT documented as of this encounter Plan of Treatment Upcoming Encounters Date Type Department Care Team (Late st Contact Info) Description 09/09/2024 10:00 AM CDT Office Visit [facility] Group Family & Internal Medicine [address] [address] Mick Flowers MD [address] [place] [address] Scheduled Orders Name Type Priority Associated Diagnoses Orde r Schedule Case request operating room: EGD, COLONOSCOPY Case Request Routine Gastroesophageal reflux disease, unspecified whether esophagitis present Lower abdominal pain Change in bowel habit Diarrhea Ordered: 10/04/2020 documented as of this encounter Visit Diagnoses Diagnosis Gastroesophageal reflux disease, unspecified whether esophagitis present- Primary Lower abdominal pain Abdominal pain, other specified site Change in bowel habit Diarrhea documented in this encounter Care Teams Diesel Engine Mechanic Apprentice Relationship Specialty Start Date End Date Mick Flowers MD [address] [place] [address] PCP - General 10/15/14 documented as of this encounter
--- OUTSIDE RECORDS SUMMARY | 2024-06-29 00:11 | XMS_ITS | Encounter Summary ---
Author Organization [facility] Address [address] [place] [address]. [id number] [place] [address] Care Team Providers Care Trading Assistant Name Role Phone Mick Flowers MD Primary Care Provider [phone] Encounter Details Date Type Department Care Team (Latest Contact Info) Description 11/05/2020 11:15 AM CDT - 11/05/2020 11:59 PM CDT Hospital Encounter [facility] [place] [address] Kilo Myers MD [address] [address] Discharge Disposition: Home or Self Care (Routine Discharge) Social History Tobacco Use Types Packs/Day Years Used Date Smoking Tobacco: Never Smokeless Tobacco: Never Alcohol Use Standard Drinks/Week Comments Yes 0 (1 standard drink = 0.6 oz pur e alcohol) [place] 4 oz every night AUDIT-C Answer Date [...] this encounter Medications at Time of Discharge OnabotulinumtoxinA (BOTOX IJ)Indications:Over active Bladder Inject as directed every 6 (six) months. Indications: Overactive Bladder ALPRAZolam 0.5 MG tabletIndications:A nxiety TAKE 1 TABLET(0.5 MG) BY MOUTH THREE TIMES DAILY NEEDED 60 tablet 3 0 12/16/19 21 Alprostadil, Vasodilator, (EDEX) 20 MCG KitIndications:Erec tile dysfunction, unspecified erectile dysfunction type 1 mL by Intracavernosal route as needed. 10-30 minutes prior to intercourse 30 kit 1 07/19/19 22 atorvastatin 40 MG tabletIndications:M ixed hyperlipidemia Take 1 tablet (40 mg total) by mouth nightly at bedtime. 90 tablet 3 1 06/20/20 21 baclofen 10 MG tabletIndications:M ultiple Sclerosis Take 10 mg by mouth 3 (three) times daily. Indications: Multiple Sclerosis 08/30/19 23 felodipine ER 5 MG 24 hr tabletIndications:H ypertension Take 1 tablet (5 mg total) by mouth daily. 90 tablet 3 0 04/20/20 21 HYDROCHLOROTHIAZIDE 25 MG tabletIndications:B enign essential hypertension TAKE 1 TABLET(25 MG) BY MOUTH EVERY MORNING 90 tablet 3 0 11/25/19 21 Insulin Syringe-Needle U-100 (INSULIN SYRINGE .5CC/28G) 28G X 1/2 0.5 ML Misc 5 08/30/19 23 LOSARTAN 100 MG tabletIndications:B enign essential hypertension TAKE 1 TABLET(100 MG) BY MOUTH DAILY 90 tablet 3 0 03/24/20 21 MILK THISTLE OR 08/30/19 23 Na sulfate-K sulfate-Mg sulfate (SUPREP BOWEL PREP KIT) 17.5-3.13-1.6 GM/177ML SolutionIndications :Lower abdominal pain,Change in bowel habit Take 177 mLs by mouth every 12 (twelve) hours. Take as directed by instruction sheet. 354 mL 1 11/24/19 21 omeprazole EC 20 MG tabletIndications:G astroesophageal reflux disease, unspecified whether esophagitis present Take 1 tablet (20 mg total) by mouth daily. 30 tablet 1 1 11/24/19 21 potassium chloride CR 20 MEQ Tab CR tabletIndications:E susan Take 1 tablet by mouth daily. 90 tablet 3 1 06/22/20 21 probiotic capsule Take 1 capsule by mouth daily. 08/30/19 23 urea 40 % CreamIndications:Ec zema APPLY AND RUB IN A THIN FILM TO AFFECTED AREA(S) DAILY. 198.4 g 5 1 05/04/20 23 vitamin D3, cholecalciferol, 10 MCG (400 UNIT) tablet Take 400 Units by mouth daily. 08/30/19 23 documented as of this encounter Plan of Treatment Upcoming Encounters Date Type Department Care Team (Late st Contact Info) Description 09/09/2024 10:00 AM CDT Office Visit [facility] Family & Internal Medicine [address] [address] Mick Flowers MD [address] [place] [address] documented as of this encounter Procedures Procedure Name Priority Date/Time Associated Diagnosis Comments CORONAVIRUS (COVID 19) Routine 11/05/2020 9:20 AM CDT GERD (gastroesophageal reflux disease) Diarrhea documented in this encounter Results * PRE-SURGICAL/PRE-PROCEDURE CORONAVIRUS (COVID 19) (11/05/2020 9:20 AM CDT) CORONAVIRUS SARS COV 2 PCR (RESP) NOT DETECTED NOT DETECTED 11/06/2020 5:30 PM CDT [facility] [employer] [facility] Comment: A Not Detected (negative) test result for this test means that SARS-CoV-2 RNA was not present in the specimen above the limit of detection. A negative result does not rule out the possibility of COVID-19 and should not be used as the sole basis for treatment or patient management decisions. ??If COVID-19 is still suspected, based on exposure history together with other clinical findings, re-testing should be considered in consultation with public health authorities. Laboratory test results should always be considered in the context of clinical observations and epidemiological data in making a final diagnosis and patient management decisions. This patient specimen was tested using an FDA EUA pooling method. Patient specimens with low viral loads may not be detected in sample pools due to the decreased sensitivity of pooled testing. ?? Please review the Fact Sheets and FDA authorized labeling available for health care providers and patients using the following websites: [email or web address]/home/Covid-19/HCP/NAAT/fact-sheet2 [email or web address]://[email or web address]/home/Covid-19/Patients/NAAT/ fact-sheet2 This test has been authorized by the FDA under an Emergency Use Authorization (EUA) for use by authorized laboratories. Due to the current public health emergency, [facility] is receiving a high volume of samples from a wide variety of swabs and media for COVID-19 testing. In order to serve patients during this public health crisis, samples from appropriate clinical sources are being tested. Negative test results derived from specimens received in non-commercially manufactured viral collection and transport media, or in media and sample collection kits not yet authorized by FDA for COVID-19 testing should be cautiously evaluated and the patient potentially subjected to extra precautions such as additional clinical monitoring, including collection of an additional specimen. Methodology: ??Nucleic Acid Amplification Test (NAAT) includes RT-PCR or TMA Additional information about COVID-19 can be found at the [facility] website: [email or web address]. Test performed at [facility] [address] ??[id number] Director: JELLY MAYERS DO,MPH FIRST TEST NO 11/05/2020 11:28 AM T [facility] EMPLOYED IN HEALTHCARE NO 11/05/2020 11:28 AM T [facility] SYMPTOMATIC DEFINED BY CDC NO 11/05/2020 11:28 AM T [facility] DATE OF SYMPTOM ONSET =FASTING UNKNOWN 11/05/2020 12:31 PM T [facility] HOSPITALIZATION STATUS NO 11/05/2020 11:28 AM CDT [facility] PATIENT IN ICU NO 11/05/2020 11:28 AM CDT [facility] RESIDENT OF CONGREGATE CARE NO 11/05/2020 11:28 AM CDT [facility] NO 11/05/2020 12:31 PM CDT [facility] PATIENT'S RACE WHITE OR 11/05/2020 11:28 AM CDT [facility] ETHNICITY NONHISPANIC 11/05/2020 11:28 AM CDT [facility] SOURCE (QST) NASOPHARYNGEAL SWAB 11/05/2020 11:28 AM CDT [facility] NASOPHARYNGEAL SWAB / Unknown 11/05/2020 9:20 AM CDT us Kilo Myers MD MICROBIOLOGY - GENERAL ORDERABLE S Final Result Performing Organization Address [facility] Co de Phone Number [facility] [address] [place] [address], [employer] [address] documented in this encounter Visit Diagnoses Diagnosis GERD (gastroesophageal reflux disease) Esophageal reflux Diarrhea documented in this encounter Additional Health Concerns Infection Onset Date Last Indicated Resolved Time COVID-19 Rule Out 11/05/2020 11/05/2020 11/06/2020 5:30 PM CDT documented as of this encounter Care Teams Trading Assistant Relationship Specialty Start Date End Date Mick Flowers MD [address] [place] [address] PCP - General 10/15/14 documented as of this encounter
--- OUTSIDE RECORDS SUMMARY | 2024-06-29 00:11 | XMS_ITS | Encounter Summary ---
Author Organization [facility] Address [address] [place] [address]. [place], [place] [address] [place] [address] Care Team Providers Care Water Treatment Plant Engineer Name Role Phone Mick Flowers MD Primary Care Provider [phone] Encounter Details Date Type Department Care Team (Latest Contact Info) Description 11/03/2021 Scan HEALTH INFO SRVCS Scanned, Documents Social History Tobacco Use Types Packs/Day Years Used Date Smoking Tobacco: Never Smokeless Tobacco: Never Alcohol Use Standard Drinks/Week Comments Yes 0 (1 standard drink = 0.6 oz pur e alcohol) [place] 4 oz every night AUDIT-C Answer Date [...] Description 09/09/2024 10:00 AM CDT Office Visit [facility] Family & Internal Medicine [address] [address] Mick Flowers MD [address] [place] [address] documented as of this encounter Visit Diagnoses Not on filedocumented in this encounter Additional Health Concerns Assessment Noted Time PHQ-9 Depression Total Score: 0 04/28/20 21 11:07 AM CDT documented as of this encounter Care Teams Water Treatment Plant Engineer Relationship Specialty Start Date End Date Mick Flowers MD [address] [place] [address] PCP - General 10/15/14 documented as of this encounter
--- OUTSIDE RECORDS SUMMARY | 2024-06-29 00:11 | XMS_ITS | Encounter Summary ---
Author Organization [facility] Address [address] [place] [address]. [place], [place] [id number] [place] [address] Care Team Providers Care Procurement Manager Name Role Phone Mick Flowers MD Primary Care Provider [phone] Reason for Visit * Reason Onset Date Comments Question 10/18/2020 Encounter Details Date Type Department Care Team (Late st Contact Info) Description 10/18/2020 Telephone [facility] Multispecialty Care - [facility] [address] [facility], [address] [place] [address] Lindsay Bess NP [address] [facility] [address] [place] [address] Question Social History Tobacco Use Types Packs/Day [...] as of this encounter Progress Notes * Estela Mcgill - 10/19/2020 3:58 PM CDT Spoke with patient message given. * Lindsay Bess NP - 10/18/2020 9:58 AM CDT That will be fine to use in combination if he is going to be out. Please let him know to contact clinic for any questions. Thanks. * Estela Mcgill - 10/18/2020 8:55 AM CDT Spoke with patient to reschedule his phone visit he said he doesn't need to reschedule it. Prilosecseems to be working, he just want to know if he can incorporate taking with the Prilosec Imodium onthe days that he know that he's going to be out? documented in this encounter Plan of Treatment Upcoming Encounters Date Type Department Care Team (Late st Contact Info) Description 09/09/2024 10:00 AM CDT Office Visit [facility] Family & Internal Medicine - [place] [address] [place] [address] Mick Flowers MD [facility] [place] [address] documented as of this encounter Visit Diagnoses Not on filedocumented in this encounter Care Teams Procurement Manager Relationship Specialty Start Date End Date Mick Flowers MD [address] [place] [address] PCP - General 10/15/14 documented as of this encounter
--- OUTSIDE RECORDS SUMMARY | 2024-06-29 00:11 | XMS_ITS | Encounter Summary ---
Author Organization [facility] Address [address] [place] [address]. [place] [address] [place] [address] Care Team Providers Care Supervisor Bleach Plant Name Role Phone Mick Flowers MD Primary Care Provider [phone] Encounter Details Date Type Department Care Team (Late st Contact Info) Description 11/23/2020 Orders Only [facility] Multispecialty Care - [facility] [address] [facility], [address] [place] [id number] Lindsay Bess NP 3 [facility] [address] [place], [place] [id number] Social History Tobacco Use Types Packs/Day Years Used Date Smoking Tobacco: Never Smokeless Tobacco: Never Alcohol Use Standard Drinks/Week Comments Yes 0 (1 standard drink = 0.6 oz pur e alcohol) [place] 4 oz every night AUDIT-C Answer Date [...] have Coronavirus / COVID-19? No / Unsure 11/08/2020 10:12 AM CDT documented as of this encounter Plan of Treatment Upcoming Encounters Date Type Department Care Team (Late st Contact Info) Description 09/09/2024 10:00 AM CDT Office Visit [facility] Family & Internal Medicine [address] [address] Mick Flowers MD [address] [place] [address] documented as of this encounter Visit Diagnoses Diagnosis Gastroesophageal reflux disease, unspecified whether esophagitis present documented in this encounter Care Teams Supervisor Bleach Plant Relationship Specialty Start Date End Date Mick Flowers MD [address] [place] [address] PCP - General 10/15/14 documented as of this encounter
--- OUTSIDE RECORDS SUMMARY | 2024-06-29 00:11 | XMS_ITS | Encounter Summary ---
Author Organization [facility] Address [address] [place] [address]. [place], [place] [address] [place] [id number] Care Team Providers Care Contact Manager Name Role Phone Mick Flowers MD Primary Care Provider [phone] Reason for Visit * Reason Comments Physical Encounter Details Date Type Department Care Team (Late st Contact Info) Description 10/06/2021 2:00 PM CDT Office Visit [facility] Family & Internal Medicine [address] [phone] Mick Flowers MD [address] [place] [phone] Physical Social History Tobacco Use Types Packs/Day Years Used Date Smoking Tobacco: Never Smokeless Tobacco: Never Tobacco Cessation:Counseling Given: No Alcohol Use Standard Drinks/Week Comments Yes 0 (1 standard drink = 0.6 oz pur e alcohol) [place] 4 oz every night AUDIT-C Answer Date [...] PM CDT documented as of this encounter Last Filed Vital Signs Vital Sign Reading Time Taken Comments Blood Pressure 122/80 10/06/2021 1:57 PM CDT Pulse 74 10/06/2021 1:57 PM CDT Temperature 36.8 ??C (98.3 ??F) 10/06/2021 1:57 PM CD T Respiratory Rate 16 10/06/2021 1:57 PM CDT Oxygen Saturation 97% 10/06/2021 1:57 PM CDT Inhaled Oxygen Concentration - - Weight 83 kg (183 lb) 10/06/2021 1:57 PM CDT Height 177.8 cm (5' 10 ) 10/06/2021 1:57 PM CDT Body Mass Index 26.26 10/06/2021 1:57 PM CDT documented in this encounter Progress Notes * Mick Flowers MD - 10/06/2021 2:00 PM CDT The patient is being seen for a health maintenance evaluation. The last health maintenance exam was1 year ago. General Health: fair Dental Health: Sees dentist regularly, Brushes regularly and Flosses regularly Vision Health: Wears glasses and Last eye exam < 1 year ago Hearing Health: No hearing problems Immunizations Needed: up to date Weight: Normal BMI Physical Activity: Excersises regularly Sexual Activity: Social History Substance and Sexual Activity Sexual Activity Yes ??? Partners: Female Prostate Cancer Screening: No family history of prostate cancer Testicular Cancer Screening: Monthly self testicular exam Colorectal Cancer Screening: Colonoscopy last done: 11/08/20 Metabolic Screening: Glucose screen: Last done: 08/31/21, Lipid Profile: Last done: 08/31/21 and Thyroid Function Test: Last done: 08/31/21 Health Risks Cardiovascular Risk Factors: None General Health Risks: none Safety Elements Used: Seat belts, Safe driving habits, Sunscreen, Smoke detector and Carbon monoxide detector Review of Systems Constitutional: Negative for malaise/fatigue [...] Skin: Negative for itching and rash. Neurological: Negative for weakness and headaches. Psychiatric/Behavioral: Negative [...] snare performed by Kilo Myers MD at [facility] Family History Problem Relation Name Age of Onset ??? Cancer Mother ??? Hypertension Father ??? Cancer Father Social History Socioeconomic History ??? Marital status: Spouse name: Not on file ??? Number of children: Not on file ??? Years of education: Not on file ??? Highest education level: Not on file Occupational History ??? Not on file Tobacco Use ??? Smoking status: Never Smoker ??? Smokeless tobacco: Never Used Vaping Use ??? Vaping Use: Never used Substance and Sexual Activity ??? Alcohol use: Yes Comment: [place] 4 oz every night ??? Drug use: Yes Frequency: 4.0 times per week Types: Marijuana Comment: marijuana edibles ??? Sexual activity: Yes Partners: Female Other Topics Concern ??? Not on file Social History Narrative ??? Not on file Social Determinants of Health Financial Resource Strain: Not on file Food Insecurity: Not on file Transportation Needs: Not on file Physical Activity: Not on file Stress: Not on file Social Connections: Not on file Intimate Partner Violence: Not on file Immunization History Administered Date(s) Administered ??? Afluria 36 MONTHS+ (Prefilled Syringe IIV4) 04/02/2019 ? ? Flucelvax Adult - >Age4 (Prefilled Syringe) 03/26/2020 ??? Influenza 04/16/2013, 06/01/2017 ??? Influenza Adult (Generic) 03/31/2015, 03/31/2015, 03/26/2016, 05/31/2017, 04/02/2018, 04/03/2018, 04/04/2021 ??? PFIZER COVID-19 (ORIGINAL FORMULATION, PURPLE CAP), MRNA, LNP-S, PF, 30 MCG/0.3 ML DOSE 09/06/2020, 09/27/2020, 04/04/2021 ??? Zoster (Zostavax) 68416 Unt/0.65Ml 07/11/2017 Current Outpatient Medications Medication Sig Dispense Refill ??? ALPRAZOLAM 0.5 MG tablet TAKE 1 TABLET(0.5 MG) BY MOUTH THREE TIMES DAILY NEEDED 60 tablet 0 ??? Alprostadil, Vasodilator, (EDEX) 20 MCG Kit 1 mL by Intracavernosal route as needed. 10-30 minutes prior to intercourse 30 kit 1 ??? ATORVASTATIN 40 MG tablet TAKE 1 TABLET(40 MG) BY MOUTH EVERY NIGHT AT BEDTIME 90 tablet 3 ??? FAMOTIDINE 20 MG tablet TAKE 1 TABLET(20 MG) BY MOUTH TWICE DAILY 60 tablet 1 ??? FELODIPINE ER 5 MG 24 hr tablet TAKE 1 TABLET(5 MG) BY MOUTH DAILY 90 tablet 3 ??? HYDROCHLOROTHIAZIDE 25 MG tablet TAKE 1 TABLET(25 MG) BY MOUTH EVERY MORNING 90 tablet 3 ??? LOSARTAN 100 MG tablet TAKE 1 TABLET(100 MG) BY MOUTH DAILY 90 tablet 3 ??? omeprazole EC 20 MG tablet Take 1 tablet (20 mg total) by mouth daily. 30 tablet 1 ??? OnabotulinumtoxinA (BOTOX IJ) Inject as directed every 6 (six) months. Indications: Overactive Bladder ??? POTASSIUM CHLORIDE CR 20 MEQ Tab CR tablet TAKE 1 TABLET BY MOUTH DAILY 90 tablet 3 ??? baclofen 10 MG tablet Take 10 mg by mouth 3 (three) times daily. Indications: Multiple Sclerosis ??? hyoscyamine 0.125 MG SL tablet DISSOLVE 1 TABLET UNDER THE TONGUE EVERY 6 HOURS NEEDED ??? INSULIN SYRINGE .5CC/28G (B-D INS SYR MICROFINE .5CC/28G) 28G X 1/2 0.5 ML Misc ??? MILK THISTLE OR ??? probiotic capsule Take 1 capsule by mouth daily. ??? simvastatin 40 MG tablet ??? urea 40 % Cream APPLY AND RUB IN A THIN FILM TO AFFECTED AREA(S) DAILY. 198.4 g 5 ??? vitamin D3, cholecalciferol, (VITAMIN D-3) 10 MCG (400 UNIT) tablet Take 400 Units by mouth daily. No current facility-administered medications for this visit. Current Outpatient Medications on File Prior to Visit Medication Sig ??? ALPRAZOLAM 0.5 MG tablet TAKE 1 TABLET(0.5 MG) BY MOUTH THREE TIMES DAILY NEEDED ??? Alprostadil, Vasodilator, (EDEX) 20 MCG Kit 1 mL by Intracavernosal route as needed. 10-30 minutes prior to intercourse ??? ATORVASTATIN 40 MG tablet TAKE 1 TABLET(40 MG) BY MOUTH EVERY NIGHT AT BEDTIME ??? FAMOTIDINE 20 MG tablet TAKE 1 TABLET(20 MG) BY MOUTH TWICE DAILY ??? FELODIPINE ER 5 MG 24 hr tablet TAKE 1 TABLET(5 MG) BY MOUTH DAILY ??? HYDROCHLOROTHIAZIDE 25 MG tablet TAKE 1 TABLET(25 MG) BY MOUTH EVERY MORNING ??? LOSARTAN 100 MG tablet TAKE 1 TABLET(100 MG) BY MOUTH DAILY ??? omeprazole EC 20 MG tablet Take 1 tablet (20 mg total) by mouth daily. ??? OnabotulinumtoxinA (BOTOX IJ) Inject as directed every 6 (six) months. Indications: Overactive Bladder ??? POTASSIUM CHLORIDE CR 20 MEQ Tab CR tablet TAKE 1 TABLET BY MOUTH DAILY ??? baclofen 10 MG tablet Take 10 mg by mouth 3 (three) times daily. Indications: Multiple Sclerosis ??? hyoscyamine 0.125 MG SL tablet DISSOLVE 1 TABLET UNDER THE TONGUE EVERY 6 HOURS NEEDED ??? INSULIN SYRINGE .5CC/28G (B-D INS SYR MICROFINE .5CC/28G) 28G X 1/2 0.5 ML Misc ??? MILK THISTLE OR ??? probiotic capsule Take 1 capsule by mouth daily. ??? simvastatin 40 MG tablet ??? urea 40 % Cream APPLY AND RUB IN A THIN FILM TO AFFECTED AREA(S) DAILY. ??? vitamin D3, cholecalciferol, (VITAMIN D-3) 10 MCG (400 UNIT) tablet Take 400 Units by mouth daily. No current facility-administered medications on file prior to visit. No Known Allergies Objective: Vitals: 10/06/21 1357 BP: 122/80 Pulse: 74 Resp: 16 Temp: 98.3 ??F (36.8 ??C) SpO2: 97% Physical Exam HENT: Head: Normocephalic and atraumatic. Right Ear: External ear normal. Left Ear: External ear normal. Nose: Nose normal. Eyes: Conjunctiva/sclera: Conjunctivae normal. Pupils: Pupils are equal, round, and reactive to light. Cardiovascular: Rate and Rhythm: Normal rate and regular rhythm. Heart sounds: Normal heart sounds. Pulmonary: Effort: Pulmonary effort is normal. Breath sounds: Normal breath sounds. Abdominal: General: Bowel sounds are normal. Palpations: Abdomen is soft. Musculoskeletal: General: Normal range of motion. Cervical back: Normal range of motion and neck supple. Skin: General: Skin is warm and dry. Neurological: Mental Status: He is alert and oriented to person, place, and time. Cranial Nerves: Cranial nerves are intact. Sensory: Sensation is intact. Gait: Gait abnormal. Psychiatric: Mood and Affect: Mood and affect normal. No visits with results within 1 Month(s) from this visit. Latest known visit with results is: Office Visit on 04/28/2021 Component Date Value Ref Range Status ??? WBC 08/31/2021 3.9 3.8 - 10.8 Thousand/uL Final ??? RBC 08/31/2021 4.96 4.20 - 5.80 Million/uL Final ??? HGB 08/31/2021 15.1 13.2 - 17.1 g/dL Final ??? HCT 08/31/2021 44.6 38.5 - 50.0 % Final ??? MCV 08/31/2021 89.9 80.0 - 100.0 fL Final ??? MCH 08/31/2021 30.4 27.0 - 33.0 pg Final ??? MCHC 08/31/2021 33.9 32.0 - 36.0 g/dL Final ??? RDW 08/31/2021 12.6 11.0 - 15.0 % Final ??? PLT 08/31/2021 220 140 - 400 Thousand/uL Final ??? MPV 08/31/2021 10.9 7.5 - 12.5 fL Final ??? ABS. NEUTROPHILS 08/31/2021 2,040 1,500 - 7,800 cells/uL Final ??? ABS. LYMPHOCYTES 08/31/2021 1,205 850 - 3,900 cells/uL Final ??? ABS. MONOCYTES 08/31/2021 394 200 - 950 cells/uL Final ??? ABS. EOSINOPHILS 08/31/2021 242 15 - 500 cells/uL Final ??? ABS. BASOPHILS 08/31/2021 20 0 - 200 cells/uL Final ??? SEG NEUTROPHILS 08/31/2021 52.3 % Final ??? LYMPHOCYTES 08/31/2021 30.9 % Final ??? MONOCYTES 08/31/2021 10.1 % Final ??? EOSINOPHILS 08/31/2021 6.2 % Final ??? BASOPHILS 08/31/2021 0.5 % Final ? ? CHOLESTEROL 08/31/2021 199 <200 mg/dL Final ? ? HDL 08/31/2021 66 > OR = 40 mg/dL Final ? ? TRIGLYCERIDE 08/31/2021 134 <150 mg/dL Final ??? LDL (CALCULATED) 08/31/2021 108* mg/dL (calc) Final Comment: Reference range: <100 Desirable range <100 mg/dL for primary prevention; <70 mg/dL for patients with CHD or diabetic patients with > or = 2 CHD risk factors. LDL-C is now calculated using the [employer] calculation, which is a validated novel method providing better accuracy than the Friedewald equation in the estimation of LDL-C. Sergey SOTO et al. MAKENZIE. 2013;310(19): 2123-0155 (http://education.Captual/faq/AMO556) ? ? CHOL/HDL RATIO 08/31/2021 3.0 <5.0 (calc) Final ? ? NON HDL CHOLESTEROL 08/31/2021 133* <130 mg/dL (calc) Final Comment: For patients with diabetes plus 1 major ASCVD risk factor, treating to a non-HDL-C goal of <100 mg/dL (LDL-C of <70 mg/dL) is considered a therapeutic option. ??? GLUCOSE 08/31/2021 95 65 - 99 mg/dL Final Comment: Fasting reference interval ??? BUN 08/31/2021 13 7 - 25 mg/dL Final ??? CREATININE S/P/B 08/31/2021 0.85 0.70 - 1.33 mg/dL Final Comment: For patients >49 years of age, the reference limit for Creatinine is approximately 13% higher for people identified as -Syrian. ? ? eGFR Non-Afr. Amer. 08/31/2021 97 > OR = 60 mL/min/1.73m2 Final ? ? eGFR Afr. Amer. 08/31/2021 113 > OR = 60 mL/min/1.73m2 Final ??? BUN CREATININE RATIO 08/31/2021 NOT APPLICABLE 6 - 22 (calc) Final ??? SODIUM 08/31/2021 137 135 - 146 mmol/L Final ??? POTASSIUM 08/31/2021 4.9 3.5 - 5.3 mmol/L Final ??? CHLORIDE S/P/B 08/31/2021 101 98 - 110 mmol/L Final ??? CO2 08/31/2021 32 20 - 32 mmol/L Final ??? CALCIUM 08/31/2021 10.2 8.6 - 10.3 mg/dL Final ??? TOTAL PROTEIN S/P/B 08/31/2021 7.0 6.1 - 8.1 g/dL Final ??? ALBUMIN S/P/B 08/31/2021 4.6 3.6 - 5.1 g/dL Final ??? GLOBULIN 08/31/2021 2.4 1.9 - 3.7 g/dL (calc) Final ??? ALBUMIN GLOBULIN RATIO 08/31/2021 1.9 1.0 - 2.5 (calc) Final ??? BILIRUBIN TOTAL S/P/B 08/31/2021 0.7 0.2 - 1.2 mg/dL Final ??? ALKALINE PHOSPHATASE S/P/B 08/31/2021 103 35 - 144 U/L Final ??? AST 08/31/2021 19 10 - 35 U/L Final ??? ALT 08/31/2021 30 9 - 46 U/L Final ??? CK,TOTAL 08/31/2021 100 44 - 196 U/L Final ? ? PSA Total 08/31/2021 1.53 < OR = 2.50 ng/mL Final Comment: The total PSA value from this assay system is standardized against the WHO standard. The test result will be approximately 20% lower when compared to the equimolar-standardized total PSA (Penny Megan). Comparison of serial PSA results should be interpreted with this fact in mind. This test was performed using the Siemens chemiluminescent method. Values obtained from different assay methods cannot be used interchangeably. PSA levels, regardless of value, should not be interpreted as absolute evidence of the presence or absence of disease. ??? COLOR (U) 08/31/2021 YELLOW YELLOW Final ??? APPEARANCE 08/31/2021 CLEAR CLEAR Final ??? Specific [place] (U) 08/31/2021 1.008 1.001 - 1.035 Final ??? PH, (U) 08/31/2021 7.0 5.0 - 8.0 Final ??? URINE GLUCOSE 08/31/2021 NEGATIVE NEGATIVE Final ??? BILIRUBIN (U) 08/31/2021 NEGATIVE NEGATIVE Final ??? KETONE 08/31/2021 NEGATIVE NEGATIVE Final ??? BLOOD 08/31/2021 TRACE* NEGATIVE Final ??? PROTEIN (U) 08/31/2021 NEGATIVE NEGATIVE Final ??? NITRITES 08/31/2021 NEGATIVE NEGATIVE Final ??? LEUKOCYTE ESTERASE 08/31/2021 1+* NEGATIVE Final ? ? WBC/HPF 08/31/2021 10-20* < OR = 5 /HPF Final ? ? RBC/HPF 08/31/2021 NONE SEEN < OR = 2 /HPF Final ? ? SQUAMOUS EPITHELIAL CELLS, URINE 08/31/2021 NONE SEEN < OR = 5 /HPF Final ??? BACTERIA (URINE) 08/31/2021 NONE SEEN NONE SEEN /HPF Final ??? HYALINE CASTS 08/31/2021 NONE SEEN NONE SEEN /LPF Final ??? REFLEX URINE CULTURE: 08/31/2021 Final CULTURE INDICATED - RESULTS TO FOLLOW ??? Culture Result: 08/31/2021 Final Comment: CULTURE, URINE, ROUTINE Micro Number: [id number] Test Status: Final Specimen Source: Urine Specimen Quality: Adequate Result: Mixed genital padmini isolated. These superficial bacteria are not indicative of a urinary tract infection. No further organism identification is warranted on this specimen. If clinically indicated, recollect clean-catch, mid-stream urine and transfer immediately to Urine Culture Transport Tube. ? ? VITAMIN D 25 HYDROXY TOTAL S/P/B 08/31/2021 43.0 >29.9 ng/mL Final Comment: Vitamin D, 25-Hydroxy reports concentrations of two common forms, 25-OHD2 and 25-OHD3. 25-OHD3 indicates both endogenous production and supplementation. 25-OHD2 is an indicator of exogenous sources, such as diet or supplementation. Therapy is based on measurement of Total 25-OHD, with levels <20 ng/mL indicative of Vitamin D deficiency, while levels between 20 ng/mL and 30 ng/mL suggest insufficiency. Optimal levels are >=30 ng/mL. Vitamin-D is fat-soluble and therefore inadvertent or intentional ingestion of excessively high amounts could be toxic. Studies in children and adults suggest blood levels would need to exceed 150 ng/mL before there is any concern. Harleen MF, Bessy NC, Magaly INGRAM, et al. Evaluation, treatment, and prevention of vitamin D deficiency: an Endocrine Society clinical practice guideline. J Clin Endocrinol Metab. 2011;96(7):1911-30.This test is performed by a Liquid Chromatography-Tandem Mass Spectrometry (LC-MS/MS) method. This test was de veloped and its performance characteristics determined by the [employer] It has not been cleared or approved by the U.S. FDA. The [employer] is regulated under Clinical Laboratory Improvement Amendments (CLIA) as qualified to perform high-complexity testing. This test is used for clinical purposes. It should not be regarded as investigational or for research. Vitamin D, 25-Hydroxy reports concentrations of two common forms, 25-OHD2 and 25-OHD3. 25-OHD3 indicates both endogenous production and supplementation. 25-OHD2 is an indicator of exogenous sources, such as diet or supplementation. Therapy is based on measurement of Total 25-OHD, with levels <20 ng/mL indicative of Vitamin D deficiency, while levels between 20 ng/mL and 30 ng/mL suggest insufficiency. Optimal levels are > or = 30 ng/mL. Vitamin D is fat-soluble and therefore inadvertent or intentional ingestion of excessively high amounts could be toxic. Studies in children and a dults suggest blood levels would need to exceed 150 ng/mL before there is any concern. Harleen MF, Bessy NC, Magaly INGRAM, et al., Evaluation, treatment, and prevention of vitamin D deficiency: an Endocrine Society clinical practice guideline. J Clin. Endocrinol. Metab. 2011;96(7):1911-30. ??? VITAMIN D 25 HYDROXY D3 S/P/B 08/31/2021 41.8 ng/mL Final Comment: This test was developed and its analytical performance characteristics have been determined by [employer]. It has not been cleared or approved by the FDA. This assay has been validated pursuant to the CLIA regulations and is used for clinical purposes. ??? VITAMIN D 25 HYDROXY D2 S/P/B 08/31/2021 1.2 ng/mL Final Comment: This test was developed and its analytical performance characteristics have been determined by [employer]. It has not been cleared or approved by the FDA. This assay has been validated pursuant to the CLIA regulations and is used for clinical purposes. ] Assessment: Patient Active Problem List Diagnosis ??? [...] Diagnoses and all orders for this visit: Routine general medical examination at a health care facility Discussion/Summary: Reviewed labs with patient. Changed from atorvastatin to simvastatin by neurology due to MS - scheduled for labs in a few weeks. Medical Marijuana card renewed online Follow up for yearly physical exam. MICK FLOWERS MD documented in this encounter Plan of Treatment Upcoming Encounters Date Type Department Care Team (Late st Contact Info) Description 09/09/2024 10:00 AM CDT Office Visit [facility] Family & Internal Medicine - [place] [id number] [place] [phone] Mick Flowers MD [address] [place] [id number] documented as of this encounter Visit Diagnoses Diagnosis Routine general medical examination at a health care facility- Primary documented in this encounter Additional Health Concerns Assessment Noted Time PHQ-9 Depression Total Score: 0 04/28/20 21 11:07 AM CDT documented as of this encounter Care Teams Contact Manager Relationship Specialty Start Date End Date Mick Flowers MD [address] [place] [address] PCP - General 10/15/14 documented as of this encounter
--- OUTSIDE RECORDS SUMMARY | 2024-06-29 00:11 | XMS_ITS | Encounter Summary ---
Author Organization [facility] Address [address] [place] [address]. [place], [place] [address] [place] [address] Care Team Providers Care Beef Breaker Name Role Phone Mick Flowers MD Primary Care Provider [phone] Reason for Visit * Reason Onset Date Comments Orders 03/06/2022 Encounter Details Date Type Department Care Team (Late st Contact Info) Description 03/06/[address] [facility] Family & Internal Medicine [facility] [address] [place] [phone] Mick Flowers MD [facility] [place], [place] [phone] Orders Social History Tobacco Use Types Packs/Day Years Used Date Smoking Tobacco: Never Smokeless Tobacco: Never Alcohol Use Standard Drinks/Week Comments Yes 0 (1 standard drink = 0.6 oz pur e alcohol) [place] 4 oz every night AUDIT-C Answer Date [...] Progress Notes * Mick Flowers MD - 04/02/2022 7:52 PM CDT Cholesterol is slightly elevated, diet and exercise Rx. Other labs are good. * Gela Ashley MA - 03/06/2022 3:04 PM CDTAddended by: GELA ASHLEY on: 03/06/2022 03:04 PM Modules accepted: Orders * Gela Ashley MA - 03/06/2022 3:03 PM CDT Left message informing patient lab order mailed to patient's residents. 03/06/22 * Mick Flowers MD - 03/06/2022 12:25 PM CDT Annual lipid labs with PSA * Kanchan Zuñiga MA - 03/06/2022 8:54 AM CDT Patient would like yearly labs to be done [facility] [place] Cb# [phone] documented in this encounter Plan of Treatment Upcoming Encounters Date Type Department Care Team (Late st Contact Info) Description 09/09/2024 10:00 AM CDT Office Visit [facility] - [place] [address] [place] [phone] Mick Flowers MD [facility] [place] [address] documented as of this encounter Procedures Procedure Name Priority Date/Time Associated Diagnosis Comments URINALYSIS WI REFLEX TO CULTURE Routine 03/17/2022 8:58 AM CDT TSH W/REFLEX Routine 03/17/2022 8:58 AM CDT Benign essential hypertension PROSTATE SPECIFIC ANTIGEN,SCREENING Routine 03/17/2022 8:58 AM CDT Encounter for prostate cancer screening COMPREHENSIVE METABOLIC PANEL Routine 03/17/2022 8:58 AM CDT Benign essential hypertension Mixed hyperlipidemia Multiple sclerosis (CMS/HCC HHS/HCC) LIPID PANEL Routine 03/17/2022 8:58 AM CDT Mixed hyperlipidemia CBC W/DIFF AUTOMATED Routine 03/17/2022 8:58 AM CDT Benign essential hypertension Anxiety Multiple sclerosis (CMS/HCC HHS/HCC) VITAMIN D, 25 OH Routine 03/17/2022 8:58 AM CDT URIC ACID BLOOD Routine 03/17/2022 8:58 AM CDT Benign essential hypertension Mixed hyperlipidemia documented in this encounter Results * VITAMIN D, 25 OH (03/17/2022 8:58 AM CDT) VITAMIN D 25 HYDROXY TOTAL S/P/B 51.0 >29.9 ng/mL [facility] Comment: Vitamin D, 25-Hydroxy reports concentrations of [...] there is any concern. Harleen MF, Bessy DUNBAR, Magaly INGRAM et al. Evaluation, treatment, and prevention of vitamin D deficiency: an Endocrine Society clinical practice guideline. J Clin Endocrinol Metab. 2011;96(7):1911-30.This test is performed by a Liquid Chromatography-Tandem Mass Spectrometry (LC-MS/MS) method. This test was developed and its performance characteristics determined by the [employer]. It has not been cleared or approved by the U.S. FDA. The [employer]. is regulated under Clinical Laboratory Improvement Amendments [...] ng/mL before there is any concern. Harleen GUERRA, Bessy DUNBAR, Magaly INGRAM, et al., Evaluation, treatment, and prevention of vitamin D deficiency: an Endocrine Society clinical practice guideline. J Clin. Endocrinol. Metab. 2011;96(7):1911-30. VITAMIN D 25 HYDROXY D3 S/P/B 49.8 ng/mL [employer]. Comment: This test was developed and its analytical performance characteristics have been determined by [employer]. It has not been cleared or approved by the FDA. This assay has been validated pursuant to the CLIA regulations and is used for clinical purposes. VITAMIN D 25 HYDROXY D2 S/P/B 1.2 ng/mL [employer]. Comment: This test was developed and its analytical performance characteristics have been determined by [employer]. It has not been cleared or approved by the FDA. This assay has been validated pursuant to the CLIA regulations and is used for clinical purposes. 03/17/2022 8:58 AM CDT 03/17/2022 9:00 AM CDT Narrative [facility] - 03/24/2022 8:13 AM CDT FASTING:YES FASTING: YES Mick Flowers MD LABORATORY Final Result [facility] [employer] [address] [place] [address] * (ABNORMAL) URINALYSIS WI REFLEX TO CULTURE (03/17/2022 8:58 AM CDT) COLOR (U) YELLOW YELLOW [facility] APPEARANCE SEMEN CLEAR CLEAR [facility] SPECIFIC GRAVITY (U) 1.017 1.001 - 1.035 [facility] PH (U) 6.5 5.0 - 8.0 [facility] URINE GLUCOSE NEGATIVE NEGATIVE [facility] BILIRUBIN (U) NEGATIVE NEGATIVE [facility] KETONE (U) NEGATIVE NEGATIVE [facility] BLOOD (U) TRACE(A) NEGATIVE [facility] PROTEIN (U) NEGATIVE NEGATIVE [facility] NITRITES NEGATIVE NEGATIVE [facility] LEUKOCYTES (U) TRACE(A) NEGATIVE [facility] WBC/HPF 0-5 < OR = 5 /HPF [facility] RBC/HPF NONE SEEN < OR = 2 /HPF [facility] SQUAMOUS EPITHELIAL (U) 0-5 < OR = 5 /HPF [facility] BACTERIA (U) NONE SEEN NONE SEEN /HPF [facility] HYALINE CASTS NONE SEEN NONE SEEN /LPF [facility] REFLEX URINE CULTURE: [facility] Comment:CULTURE INDICATED - RESULTS TO FOLLOW CULTURE RESULT [facility] Comment: ??CULTURE, URINE, ROUTINE ?Micro Number: ?[id number] ??Test Status: ? Final ??Specimen Source: ?? Urine ??Specimen Quality: ??Adequate ??Result: ?Mixed genital padmini isolated. These superficial ? bacteria are not indicative of a urinary tract ? infection. No further organism identification is ? warranted on this specimen. If clinically ? indicated, recollect clean-catch, mid-stream ? urine and transfer immediately to Urine Culture ? Transport Tube. 03/17/2022 8:58 AM CDT 03/17/2022 9:00 AM CDT Narrative [facility] - 03/24/2022 8:13 AM CDT FASTING:YES FASTING: YES Mick Flowers MD URINE ORDERABLES Final Result Performing Organization Address City/State/[facility] Co de Phone Number [facility] [address] [place] [address] * COMPREHENSIVE METABOLIC PANEL (03/17/2022 8:58 AM CDT) GLUCOSE 81 65 - 99 mg/dL [facility] Comment: ? Fasting reference interval BUN 17 7 - 25 mg/dL [facility] CREATININE S/P/B 0.81 0.70 - 1.30 mg/dL [facility] GFR ESTIMATE 103 > OR = 60 mL/min/1. 73m2 [facility] Comment: The eGFR is based on the CKD-EPI 2020 equation. To calculate the new eGFR from a previous Creatinine or Cystatin C result, go to https://www.kidney.org/professionals/ kdoqi/gfr%5Fcalculator BUN CREATININE RATIO NOT APPLICABLE 6 - 22 (calc) [facility] SODIUM S/P/B 139 135 - 146 mmol/L [facility] POTASSIUM S/P/B 4.2 3.5 - 5.3 mmol/L [facility] CHLORIDE S/P/B 102 98 - 110 mmol/L [facility] CO2 30 20 - 32 mmol/L [facility] CALCIUM S/P/B 10.0 8.6 - 10.3 mg/dL [facility] TOTAL PROTEIN S/P/B 7.1 6.1 - 8.1 g/dL [facility] ALBUMIN S/P/B 4.6 3.6 - 5.1 g/dL [facility] GLOBULIN 2.5 1.9 - 3.7 g/dL (calc) [facility] ALBUMIN/GLOBULI N RATIO 1.8 1.0 - 2.5 (calc) [facility] BILIRUBIN TOTAL S/P/B 0.6 0.2 - 1.2 mg/dL [facility] ALKALINE PHOSPHATASE S/P/B 103 35 - 144 U/L [facility] AST 22 10 - 35 U/L [facility] ALT 21 9 - 46 U/L [facility] 03/17/2022 8:58 AM CDT 03/17/2022 9:00 AM CDT Narrative [facility] - 03/24/2022 8:13 AM CDT FASTING:YES FASTING: YES Mick Flowers MD LABORATORY Final Result [facility] [place] [address] [place] [address] * URIC ACID BLOOD (03/17/2022 8:58 AM CDT) URIC ACID 5.9 4.0 - 8.0 mg/dL [facility] Comment: Therapeutic target for gout patients: <6.0 mg/dL ?? 03/17/2022 8:58 AM CDT 03/17/2022 9:00 AM CDT Narrative [facility] - 03/24/2022 8:13 AM CDT FASTING:YES FASTING: YES Mick Flowers MD LABORATORY Final Result [facility] [address] [facility] [place] [address] * PROSTATE SPECIFIC ANTIGEN,SCREENING (03/17/2022 8:58 AM CDT) PSA TOTAL 1.27 < OR = 2.50 ng/mL [facility] Comment: The total PSA value from this [...] of the presence or absence of disease. 03/17/2022 8:58 AM CDT 03/17/2022 9:00 AM CDT Narrative [facility] - 03/24/2022 8:13 AM CDT FASTING:YES FASTING: YES Mick Flowers MD LABORATORY Final Result Performing Organization Address [facility] Co de Phone Number [facility] [address] [place] [address] * TSH W/REFLEX (03/17/2022 8:58 AM CDT) TSH 3.29 0.40 - 4.50 mIU/L [facility] 03/17/2022 8:5 8 AM CDT 03/17/2022 9:00 AM CDT Narrative [facility] - 03/24/2022 8:13 AM CDT FASTING:YES FASTING: YES Mick Flowers MD LABORATORY Final Result Performing Organization Address City/[facility]/ZIP Co de Phone Number [facility] [address] [place] [address] * (ABNORMAL) LIPID PANEL (03/17/2022 8:58 AM CDT) CHOLESTEROL 206(H) <200 mg/dL [facility] HDL 78 > OR = 40 mg/dL [facility] TRIGLYCERIDES 110 <150 mg/dL [facility] LDL (CALCULATED) 107(H) mg/dL (calc) [facility] Comment: Reference [...] LDL-C. Sergey SOTO et al. MAKENZIE. 2013;310(19): 0543-2109 (http://education.[employer] Records/faq/EBA570) CHOL/HDL RATIO 2.6 <5.0 (calc) [facility] NON HDL CHOLESTEROL 128 <130 mg/dL (calc) [facility] Comment: For patients with diabetes plus 1 major ASCVD risk factor, treating to a non-HDL-C goal of <100 mg/dL (LDL-C of <70 mg/dL) is considered a therapeutic option. 03/17/2022 8:58 AM CDT 03/17/2022 9:00 AM CDT Narrative [facility] - 03/24/2022 8:13 AM CDT FASTING:YES FASTING: YES us Mick Flowers MD LABORATORY Final Result [facility] [address] [address] [phone] * CBC W/DIFF AUTOMATED (03/17/2022 8:58 AM CDT) WBC 3.9 3.8 - 10.8 Thousand/u L [facility] RBC 4.72 4.20 - 5.80 Million/uL [facility] HGB 15.0 13.2 - 17.1 g/dL [facility] HCT 44.2 38.5 - 50.0 % [facility] MCV 93.6 80.0 - 100.0 fL [facility] MCH 31.8 27.0 - 33.0 pg [facility] MCHC 33.9 32.0 - 36.0 g/dL [facility] RDW 12.3 11.0 - 15.0 % [facility] PLT 205 140 - 400 Thousand/u L [facility] MPV 11.0 7.5 - 12.5 fL [facility] ABS. NEUTROPHILS 1,884 1,500 - 7,800 cells/uL [facility] ABS. LYMPHOCYTES 1,303 850 - 3,900 cells/uL [facility] ABS. MONOCYTES 452 200 - 950 cells/uL [facility] ABS. EOSINOPHILS 230 15 - 500 cells/uL [facility] ABS. BASOPHILS 31 0 - 200 cells/uL [facility] SEG NEUTROPHILS 48.3 % [facility] LYMPHOCYTES 33.4 % [facility] MONOCYTES 11.6 % [facility] EOSINOPHILS 5.9 % [facility] BASOPHILS 0.8 % [facility] 03/17/2022 8:58 AM CDT 03/17/2022 9:00 AM CDT Narrative [facility] - 03/24/2022 8:13 AM CDT FASTING:YES FASTING: YES Mick Flowers MD LABORATORY Final Result [facility] [address] [address] [phone] documented in this encounter Visit Diagnoses Diagnosis Screening cholesterol level- Primary Screening for lipoid disorders Encounter for prostate cancer screening Special screening for malignant neoplasm of prostate Benign essential hypertension Essential hypertension, benign Anxiety Anxiety state, unspecified Mixed hyperlipidemia Multiple sclerosis (CMS/HCC HHS/HCC) Multiple sclerosis Vitamin D deficiency Unspecified vitamin D deficiency documented in this encounter Additional Health Concerns Assessment Noted Time PHQ-9 Depression Total Score: 0 04/28/20 21 11:07 AM CDT documented as of this encounter Care Teams Beef Breaker Relationship Specialty Start Date End Date Mick Flowers MD [address] [place] [address] PCP - General 10/15/14 documented as of this encounter
--- OUTSIDE RECORDS SUMMARY | 2024-06-29 00:11 | XMS_ITS | Encounter Summary ---
Author Organization [facility] Address [address] [place] [address]. [place], [place] [address] [place] [address] Care Team Providers Care Furniture Delivery Driver Name Role Phone Mick Flowers MD Primary Care Provider Encounter Details Date Type Department Care Team (Latest Contact Info) Description 09/29/2020 Travel Social History Tobacco Use Types Packs/Day [...] [facility] Family & Internal Medicine [address] [phone] Mick Flowers MD [address] [place] [address] documented as of this encounter Visit Diagnoses Not on filedocumented in this encounter Care Teams Furniture Delivery Driver Relationship Specialty Start Date End Date Mick Flowers MD [address] [place] [address] PCP - General 10/15/14 documented as of this encounter
--- OUTSIDE RECORDS SUMMARY | 2024-06-29 00:11 | XMS_ITS | Encounter Summary ---
Author Organization [facility] Address [address] [place] [address]. [place], [place] [id number] [place] [id number] Care Team Providers Care Analysis Or Research Safety Inspector Name Role Phone Mick Flowers MD Primary Care Provider [phone] Reason for Visit * Auth/Cert Specialty Diagnoses / Procedures Referred By Contac t Referred To Contact Diagnoses Gastroesophageal reflux disease, unspecified whether esophagitis present Lower abdominal pain Change in bowel habit Diarrhea GERD, change in bowel habits, diarrhea abdominal pain Procedures UPPER GI ENDOSCOPY,DIAGNOSIS COLONOSCOPY,DIAGNOSTIC EGD COLONOSCOPY Referral ID Status Reason Start Date Expiration Date Visits Re quested Visits Authorized [id number] 1 1 Encounter Details Date Type Department Care Team (Late st Contact Info) Description 11/08/2020 10:40 AM CDT - 11/08/2020 11:00 AM CDT Surgery [facility] [address] Patricia Myers MD [address] [address] EGD WITH gastric polypectomies via cold snare Surgery Details Date/Time Status Location OR Service Patient Class Case Class Case Type Trauma Case? 11/08/2020 10:40 AM Posted [facility] - Elective No Panel 1 Procedure LRB Anes Op Region Wound Class Comments EGD WITH gastric polypectomies via cold snare N/A General Clean Contaminated gastric polyps COLONOSCOPY WITH descending colon polypectomy via cold snare N/A General Clean Contaminated descending colon polyp Surgeon Surgeon Role Service Panel Patricia Myers MD Primary Gastroenterology 1 Special Needs Self caths due to MS documented in this encounter Social History Tobacco Use Types Packs/Day Years Used Date Smoking Tobacco: Never Smokeless Tobacco: Never Alcohol Use Standard Drinks/Week Comments Yes 0 (1 standard drink = 0.6 oz pur e alcohol) Edgar 4 oz every night AUDIT-C Answer Date [...] Sign Reading Time Taken Comments Blood Pressure - - Pulse - - Temperature - - Respiratory Rate - - Oxygen Saturation - - Inhaled Oxygen Concentration - - Weight 81.6 kg (180 lb) 11/02/2020 8:39 AM CDT Height - - Body Mass Index 25.83 09/29/2020 8:51 AM CDT documented in this encounter Discharge Instructions * Discharge Instructions* Nikky Lott RN - 11/08/2020 2:16 PM CDT Images from the original note were not included. Patient Education General Anesthesia Discharge Instructions About this topic You may need general anesthesia if you need to be asleep during a procedure. Your doctor will use drugs to block the signals that go from your nerves to your brain. Doctors give general anesthesia during a surgery or procedure to: ?? Allow you to sleep ?? Help your body be still ?? Relax your muscles ?? Help you to relax and be pain free ?? Keep you from remembering the surgery ?? Let the doctor manage your airway, breathing, and blood flow The doctor or nurse political consultant gives general anesthesia by a shot into your vein. Sometimes, you may breathe in a gas through a mask placed over your face. What care is needed at home? ?? Ask your doctor what you need to do when you go home. Make sure you ask questions if you do not understand what the doctor says. ?? Your doctor may give you drugs to prevent or treat an upset stomach from the anesthetic. Take them as ordered. ?? If your throat is sore, suck on ice chips or popsicles to ease throat pain. ?? Put 2 to 3 pillows under your head and back when you lie down to help you breathe easier. ?? For the first 24 to 48 hours: ? Do not operate heavy or dangerous machinery. ? Do not make major decisions or sign important papers. You may not be able to think clearly. ? Avoid beer, wine, or mixed drinks. ?? You are at a higher risk of falling for at least 24 hours after general anesthesia. ? Take extra care when you get up. ? Do not change positions quickly. ? Do not hardy when you need to go to the bathroom or to answer the phone. ? Ask for help if you feel unsteady when you try to walk. ? Wear shoes with non-slip soles and low heels. What follow-up care is needed? ?? Your doctor may ask you to come back to the office to check on your progress. Be sure to keep these visits. ?? If you have stitches that do not dissolve or ranjit, you will need to have them removed. Your doctor will want to do this in 1 to 2 weeks. If the doctor used skin glue, the glue will fall off on its own. What drugs may be needed? The doctor may order drugs to: ?? Help with pain ?? Treat an upset stomach or throwing up Will physical activity be limited? ?? You will not be allowed to drive right away after the procedure. Ask a family member or a friendto drive you home. ?? Avoid trying to get out of bed without help until you are sure of your balance. ?? You may have to limit your activity. Talk to your doctor about if you need to limit how much youlift or limit exercise after your procedure. What changes to diet are needed? Start with a light diet when you are fully awake. This includes things that are easy to swallow like soups, pudding, jello, toast, and eggs. Slowly progress to your normal diet. What problems could happen? ?? Low blood pressure ?? Breathing problems ?? Upset stomach or throwing up ?? Dizziness ?? Blood clots ?? Infection When do I need to call the doctor? ?? Trouble breathing ?? Upset stomach or throwing up more than 3 times in the next 2 days ?? Dizziness Teach Back: Helping You Understand The Teach Back Method helps you understand the information we are giving you. After you talk with the staff, tell them in your own words what you learned. This helps to make sure the staff has described each thing clearly. It also helps to explain things that may have been confusing. Before going home, make sure you can do these: ?? I can tell you about my procedure. ?? I can tell you if I need to follow up with my doctor. ?? I can tell you what is good for me to eat and drink the next day. ?? I can tell you what I would do if I have trouble breathing, an upset stomach, or dizziness. Where can I learn more? [employer] [place] [employer] https://www.nigms.nih.gov/education/pages/factsheet_Anesthesia.aspx NHS Choices http://www.nhs.uk/conditions/Anaesthetic-general/Pages/Definition.aspx Last Reviewed Date 2019-10-15 Consumer Information Use and Disclaimer This information is not specific medical advice and does not replace information you receive from your health care provider. This is only a brief summary of general information. It does NOT include all information about conditions, illnesses, injuries, tests, procedures, treatments, therapies, discharge instructions or life-style choices that may apply to you. You must talk with your health care provider for complete information about your health and treatment options. This information should not be used to decide whether or not to accept your health care provider???s advice, instructions or recommendations. Only your health care provider has the knowledge and training to provide advice that is right for you. Copyright Copyright ?? 2020 [employer]. and its affiliates and/or licensors. All rights reserved. Patient Education Upper GI Endoscopy Discharge Instructions About this topic This procedure is done to view your upper gastrointestinal (GI) tract. This includes your throat and food pipe (esophagus). It also includes your stomach and the first part of the small bowel. Some people have this test for problems like coughing or throwing up blood. Other people may be having badbelly pain or blood in their stool. You may be having trouble swallowing or problems with acid reflux. Doctors often use this test to look for problems like: ?? Ulcers ?? Cancer or tumor growths ?? Internal bleeding ?? Swelling ?? Inflammation ?? Bryant's esophagus ?? Gastroesophageal reflux disease or GERD ?? Swallowing problems What care is needed at home? ?? Ask your doctor what you need to do when you go home. Make sure you ask questions if you do not understand what the doctor says. This way you will know what you need to do. ?? Your throat may feel sore. Your belly may also feel bloated. Your doctor may give you drugs to help with pain. ?? Talk to your doctor about when it is safe for you to go back to eating your normal diet and taking your drugs. You can drink fluid once the numbing drugs in your throat wear off. What follow-up care is needed? ?? Your doctor may ask you to make visits to the office to check on your progress. Be sure to keep these visits. ?? The results of this test may help your doctor understand what kind of problem you have with yourupper GI tract. Together you can make a plan for more care. What drugs may be needed? The doctor may order drugs to: ?? Help with pain ?? Decrease the acid in your stomach Will physical activity be limited? You may need to limit your activity for the rest of the day. After that, you will likely be able togo back to your normal activities. What changes to diet are needed? Soft foods like pudding or soups may be easier to eat at first. Ask your doctor if you need to makeany changes to your diet. What problems could happen? ?? Painful swallowing ?? Upset stomach ?? Injury to food pipe ?? Throwing up ?? Tear in the esophagus When do I need to call the doctor? ?? Signs of infection. These include a fever of 100.4??F (38??C) or higher, chills. ?? Very bad belly pain ?? Throwing up blood ?? Your belly is hard and swollen ?? Trouble swallowing or breathing ?? Upset stomach and throwing up ?? Bloody or black tarry stools ?? Cough, shortness of breath, or chest pain ?? A crunching feeling under the skin in your neck ?? You are not feeling better in 2 to 3 days or you are feeling worse Teach Back: Helping You Understand The Teach Back Method helps you understand the information we are giving you. After you talk with the staff, tell them in your own words what you learned. This helps to make sure the staff has described each thing clearly. It also helps to explain things that may have been confusing. Before going home, make sure you can do these: ?? I can tell you about my procedure. ?? I can tell you what changes I need to make with my diet or drugs. ?? I can tell you what I will do if I have very bad belly pain, throwing up blood, or my belly is hard and swollen. Where can I learn more? [place] [employer] https://www.gastro.org/practice-guidance/ho-iyxauwq-ufohux/topic/elqqq-qo-frulqd [facility] International Foundation for Gastrointestinal Disorders https://www.iffgd.org/tests-diagnosis/gnwxu-xa-jjozxklgq.html National [place] of Diabetes and Digestive and Kidney Diseases https://www.niddk.nih.gov/health-information/diagnostic-tests/lkesn-tr-xzyydddwl Last Reviewed Date 2019-04-28 Consumer Information Use and Disclaimer This information is not specific medical advice and does not replace information you receive from your health care provider. This is only a brief summary of general information. It does NOT include all information about conditions, illnesses, injuries, tests, procedures, treatments, therapies, discharge instructions or life-style choices that may apply to you. You must talk with your health care provider for complete information about your health and treatment options. This information should not be used to decide whether or not to accept your health care provider???s advice, instructions or recommendations. Only your health care provider has the knowledge and training to provide advice that is right for you. Copyright Copyright ?? 2020 [employer]. and its affiliates and/or licensors. All rights reserved. Patient Education Colonoscopy Discharge Instructions About this topic Colonoscopy is done so your doctor can see the inside of your large intestines, also called your colon, and your rectum. It uses a lighted tube called a scope, which has a tiny camera that can be moved through the large intestine. This may be done to: ?? Screen for colon cancer or polyps ?? Look for the source of rectal bleeding ?? Find the cause of changes in your bowel movement ?? Find the cause of belly or rectal pain ?? Check results from other tests ?? Check your response to treatment for other diseases What care is needed at home? ?? Ask your doctor what you need to do when you go home. Make sure you ask questions if you do not understand what the doctor says. This way you will know what you need to do. ?? Rest. Do not drive the rest of the day. Do not sign any important papers or make any important decisions for the next 24 hours. ?? You may feel groggy. Take extra care when moving about. ?? You may have gas or mild cramping. This is normal. ?? A small amount of bleeding may happen during the first few days after your procedure. ?? Start back on your normal diet unless you need some changes in your diet. What follow-up care is needed? ?? Your doctor will talk to you about your test results. Your doctor may ask you to make visits to the office to check on your progress. Be sure to keep these visits. ?? Ask your doctor when you need to have another colonoscopy. The amount of time between tests is based on what was found during this test. People with no polyps may be able to wait 10 years to have another colonoscopy. Other people may need to have this test repeated in 1 year because of the kind of polyps that were found in their colon. Ask your doctor when you need to come back. What drugs may be needed? Ask your doctor what drugs you will need to take. Take your drugs as told by your doctor. Will physical activity be limited? Physical activities may be limited for a short time. Rest after the procedure. You may go back to your normal activities within a day or so. What changes to diet are needed? ?? Drink 6 to 8 glasses of water each day. ?? Eat food rich in fiber like fresh fruits and vegetables. What problems could happen? ?? Tear inside your colon ?? Bleeding can happen up to a few days afterwards When do I need to call the doctor? ?? Fever of 100.4??F (38??C) or higher, chills ?? Bleeding during bowel movements (1 teaspoon (5 mL) or more) or maroon stool ?? Throwing up more than 3 times in the next 48 hours ?? Feeling dizzy ?? Feeling weak ?? Belly pain that is getting worse ?? Not able to have a bowel movement for more than 2 days ?? Hard swollen belly Teach Back: Helping You Understand The Teach Back Method helps you understand the information we are giving you. The idea is simple. After talking with the staff, tell them in your own words what you were just told. This helps to makesure the staff has covered each thing clearly. It also helps to explain things that may have been abit confusing. Before going home, make sure you are able to do these: ?? I can tell you about my procedure. ?? I can tell you what signs are normal after my procedure. ?? I can tell you what I will do if I throw up more than 3 times in the next 48 hours or I have more belly pain. Where can I learn more? [place] [employer] https://www.cancer.org/cancer/eudcq-cajuwp-badekw/tvtlzusej-tmfoovevf-fkgfneg/sc djullzj-zzrau-ctch.html [place] [employer] Clinical Oncology https://www.cancer.net/lmddigbpfy-auvbfm-farl/diagnosing-cancer/msmjd-kth-zgqbsu ures/colonoscopy National Digestive Diseases Information Clearinghouse http://digestive.niddk.nih.gov/ddiseases/pubs/colonoscopy/ Last Reviewed Date 2018-09-03 Consumer Information Use and Disclaimer This information is not specific medical advice and does not replace information you receive from your health care provider. This is only a brief summary of general information. It does NOT include all information about conditions, illnesses, injuries, tests, procedures, treatments, therapies, discharge instructions or life-style choices that may apply to you. You must talk with your health care provider for complete information about your health and treatment options. This information should not be used to decide whether or not to accept your health care provider???s advice, instructions or recommendations. Only your health care provider has the knowledge and training to provide advice that is right for you. Copyright Copyright ?? 2020 [employer]. and its affiliates and/or licensors. All rights reserved. documented in this encounter Medications at Time of Discharge [...] MORNING 90 tablet 3 0 11/25/19 21 hyoscyamine (LEVSIN/SL) 0.125 MG SL TabIndications:Irri table bowel syndrome with diarrhea Place 1 tablet (0.125 mg total) under the tongue every 6 (six) hours as needed. 120 tablet 6 1 01/08/20 21 Insulin Syringe-Needle U-100 (INSULIN SYRINGE .5CC/28G) [...] 08/30/19 23 documented as of this encounter Progress Notes * Patricia Myers MD - 11/08/2020 2:44 PM CDT Your gastric polyps are benign. Colon polyp is benign. Repeat EGD and colon in 5 years documented in this encounter H&P Notes * Patricia Myers MD - 11/08/2020 1:04 PM CDT GASTROENTEROLOGY H&P 11/08/2020 1:04 PM Reason for Consult: GERD, pain, change in bowel habits History of Present Illness: Marita Emery is a 55-year-old GERD, pain, change in bowel habits. Patient Active Problem List Diagnosis ??? Abnormal [...] ??? Change in bowel habit ??? Diarrhea Past Medical History: Diagnosis Date ??? Anxiety ??? Erectile dysfunction ??? Herpes zoster ??? Hyperlipidemia ??? Hypertension ??? Multiple sclerosis (CMS/HCC) ??? S/P Botox injection in bladder every 6 months Past Surgical History: Procedure Laterality Date ??? BLADDER SURGERY ??? COLONOSCOPY 2011 normal per pt Family History Problem Relation Name Age of [...] Never Smoker ??? Smokeless tobacco: Never Used Substance and Sexual Activity ??? Alcohol use: Yes Comment: Edgar 4 oz every night ??? Drug use: Yes Frequency: 4.0 times per week Types: Marijuana ??? Sexual activity: Yes Partners: Female Other Topics Concern ??? Not on file Social History Narrative ??? Not on file Social Determinants of Health Financial Resource Strain: ??? Difficulty of Paying Living Expenses: Food Insecurity: ??? Worried About Running Out of Food in the Last Year: ??? Ran Out of Food in the Last Year: Transportation Needs: ??? Lack of Transportation (Medical): ??? Lack of Transportation (Non-Medical): Physical Activity: ??? Days of Exercise per Week: ??? Minutes of Exercise per Session: Stress: ??? Feeling of Stress : Social Connections: ??? Frequency of Communication with Friends and Family: ??? Frequency of Social Gatherings with Friends and Family: ??? Attends [employer] Services: ??? Active Member of Clubs or Organizations: ??? Attends Club or Organization Meetings: ??? Marital Status: Intimate Partner Violence: ??? Fear of Current or Ex-Partner: ??? Emotionally Abused: ??? Physically Abused: ??? Sexually Abused: No Known Allergies PHYSICAL EXAM: Filed Vitals: 11/02/20 0839 11/08/20 1123 BP: (!) 179/94 Pulse: 60 Resp: 16 Temp: 97.4 ??F (36.3 ??C) TempSrc: Temporal SpO2: 98% Weight: 81.6 kg (180 lb) Wt Readings from Last 3 Encounters: 11/02/20 81.6 kg (180 lb) 09/29/20 83.3 kg (183 lb 9.6 oz) 04/12/20 82.1 kg (181 lb) General: pleasant, no distress Lungs: clear to auscultation bilaterally Heart: regular rate and rhythm, normal s1-s2 Abdomen: soft, non-tender, non-distended, bowel sounds normal, no palpable masses Neuro: Alert, oriented, cooperative Labs: No results for input(s): WBC, HGB, MCV, PLT, INR in the last 168 hours. No results for input(s): NA, K, CL, CO2, BUN in the last 168 hours. Invalid input(s): CREATININE No results for input(s): AST, ALT, ALB in the last 168 hours. Invalid input(s): ALKPHOS, TBILI ? Assessment and Plan: GERD, pain, change in bowel habits. Plan, EGD and colonoscopy The procedural risks, benefits, alternatives were discussed fully with the patient, including the risks of complications of bleeding, infection, bowel injury or perforation, anesthesia related risks but not limited to the above. Post complication remedies could include hospitalization, antibiotics,surgery or even the remote possibility of . The patient verbalized understanding of the risks and wishes to proceed. Thank you for this consult. Please do not hesitate to contact us with further questions. PATRICIA MYERS MD Voice recognition software utilized documented in this encounter Nursing Notes * Alcira Monsivais RN - 11/08/2020 10:15 AM CDT Patient has been able to isolate post Covid nasal swab. Per instructions * Gisele Ochoa RN - 11/02/2020 8:48 AM CDT Discussed details of COVID testing with patient. Verbal consent given for testing. documented in this encounter OR Notes * Op Note - Patricia Myers MD - 11/08/2020 1:48 PM CDT [facility] OpNote EGD WITH gastric polypectomies via cold snare, COLONOSCOPY WITH descending colon polypectomy via cold snare Procedure Note Marita Emery 11/08/2020 1040 Procedure(s) (LRB): EGD WITH gastric polypectomies via cold snare (N/A) COLONOSCOPY WITH descending colon polypectomy via cold snare (N/A) Surgeon(s): Patricia Myers MD Staff: Pre / Post-Op Nurse: Kanchan Harper RN traffic safety administrator: Denise Farris CNA Anesthesia: General Anesthesiologist: Meek Kilpatrick MD HIGH SCHOOL MUSIC TEACHER: Candice Gotti CRNA Pre-Op Diagnosis: GERD, change in bowel habits, diarrhea abdominal pain Post-Op Diagnosis: Small gastric polyps removed. Descending colon polyp removed. Procedure Description: Informed consent was obtained earlier. Patient was brought to the OR and placed in supine lateral decubitus position and sedated under MAC anesthesia. EGD with a snare. GIF 190 gastroscope was lubricated inserted into the hypopharynx and advanced by direct technique. Upper middle distal esophagus looked normal. Stomach distended well. Retroflexed views of the cardia fundus angularis revealed several small polyps. Using cold snare multiple small polyps were removed and retrieved. Antrum looked normal. First second part of duodenum looked normal.Scope withdrawn. Colonoscopy was snare. PCF 190 colonoscope was lubricated inserted into the rectum and advanced to the cecum. Bowel prep was excellent. Cecum identified by the ileocecal valve and the appendiceal orifice. Terminal ileum is intubated found to be normal. Cecum normal ascending colon transverse colon looked normal. In the descending colon there was a 6 mm polyp that was cold snared and removed completely. Descending colon sigmoid colon rectum looked normal. Retroflexion at the anal verge revealed mild hemorrhoids. Findings: Multiple gastric polyps removed. Descending colon polyp removed by snare. Rest examination was negative. Plan: Check the pathology. Continue PPI medication for now. Complications: None Estimated Blood Loss: * No values recorded between 11/08/2020 1:12 PM and 11/08/2020 1:48 PM * Specimens: Order Name Source Comment Collection Info Order Time PATHOLOGY GASTRIC BIOPSY Collected By: Patricia Myers MD 11/08/2020 1:47 PM Release to patient System release Voice recognition software utilized. PATRICIA MYERS MD Date: 11/08/2020 Time: 1:48 PM Voice recognition software utilized. documented in this encounter Plan of Treatment Upcoming Encounters Date Type Department Care Team (Late st Contact Info) Description 09/09/2024 10:00 AM CDT Office Visit [facility] [address] [phone] Mick Flowers MD [address] [place] [phone] documented as of this encounter Procedures Procedure Name Priority Date/Time Associated Diagnosis Comments COLSC FLX W/RMVL OF TUMOR POLYP LESION SNARE TQ 11/08/2020 1:05 PM CDT Gastroesophageal reflux disease, unspecified whether esophagitis present Lower abdominal pain Change in bowel habit Diarrhea Special Needs Self caths due to MS UP GI ENDOSCOPY,REMV TUMOR,SNARE 11/08/2020 1:05 PM CDT Gastroesophageal reflux disease, unspecified whether esophagitis present Lower abdominal pain Change in bowel habit Diarrhea Special Needs Self caths due to MS COLONOSCOPY Routine 11/08/2020 10:16 AM CDT EGD Routine 11/08/2020 10:16 AM CDT PATHOLOGY Routine 11/08/2020 12:00 AM CDT documented in this encounter Results * Pathology (11/08/2020 12:00 AM CDT) COPATH REPORT ?[facility] [facility] ? [facility]. ? [place], [place] ??[address] ? [id number] ? Department of Pathology ? Pathology Report ? SURGICAL FINAL REPORT Patient Name: MARITA EMERY ? : 1965 (Age: 55) ?Location: [facility] Gender: M ?Collected Date: 11/08/2020 Med Rec #: [id number] ?Date Received: 11/08/2020 Date Reported: 11/09/2020 Provider: PATRICIA MYERS MD ?MICK FLOWERS MD Specimen(s) A: Polyps, gastric B: Polyp, descending colon Final Pathologic Diagnosis A. ??GASTRIC POLYPS, BIOPSY: ? - FUNDIC GLAND POLYPS ? - NO H. PYLORI ORGANISMS (IHC) B. ??DESCENDING COLON POLYP, BIOPSY: ? - TUBULAR ADENOMA, NO HIGH GRADE DYSPLASIA Electronically Signed Out ? PATRICK HOLGUIN Pathologist [facility]: Microscopic Description: Sections of the gastric polyps (A) show oxyntic mucosa with focally dilated glands compatible with fundic gland polyps. Immunostain for H. pylori is negative. ?? Sections of the descending colon polyp (B) show fragments of colonic mucosa with focally crowded glands lined by pseudostratified columnar epithelium with increased mitoses and decreased mucin production. ??There is no high grade dysplasia. Immunohistochemical stain (IHC) controls perform as expected. These tests were developed and the performance characteristics determined by [place], [place], [place], [employer] [place], [place] and/or [employer], [place], [place]. ??They have not been cleared or approved by the US Food and Drug Administration (FDA). ??The FDA has determined that such clearance or approval is not necessary. ??These tests are used for clinical purposes. ??Prognostic and predictive testing should be interpreted in the context of additional and/or histopathological findings. ?? Clinical History GERD, change in bowel habits, diarrhea abdominal pain Gross Description Received are two formalin-filled container labeled with the patient's name (Marita Emery), (1965). A. ??Additionally labeled gastric polyp , collection time 11/08/2020 at 1321. The specimen consists of multiple pink-price soft tissues admixed with hemorrhage, ranging from 0.2 cm up to 0.4 cm. ??The specimen is submitted in toto in cassette A1. B. ??Additionally labeled descending colon polyp , collection time 11/08/2020 at 1341. ??The specimen consists of a single yellow-price soft tissue admixed with probable vegetative material, up to 0.3 cm in greatest dimension. ??The specimen is submitted in toto in cassette B1. ?? : Billing Fee Code(s): 79969(2), [address] [facility] Tissue specimen (specimen) GASTRIC BIOPSY SPECIMEN / Unknown 11/08/2020 1:21 PM CDT Tissue specimen (specimen) COLON STRUCTURE / Unknown 11/08/2020 1:41 PM CDT us Patricia Myers MD PATHOLOGY/CYTOLOGY ORDERABLES Fi nal Result [facility] [address] [place] [address], [place] [phone] documented in this encounter Visit Diagnoses Diagnosis Gastroesophageal reflux disease, unspecified whether esophagitis present Lower abdominal pain Abdominal pain, other specified site Change in bowel habit Diarrhea Gastroesophageal reflux disease, unspecified whether esophagitis present Lower abdominal pain Abdominal pain, other specified site Change in bowel habit Diarrhea documented in this encounter Admitting Diagnoses Diagnosis Gastroesophageal reflux disease, unspecified whether esophagitis present Lower abdominal pain Abdominal pain, other specified site Change in bowel habit Diarrhea documented in this encounter Administered Medications Inactive Administered Medications - up to 3 most recent administrations Medication Order MAR Action Action Date Dose Rate Site lactated ringers infusion at 10 mL/hr, Intravenous, Continuous, Starting on Sun11/08/20 at 1115, Until Sun11/08/20 at 1644, Infuse at TKO rate, Pre-Op Rate/Dose Change 11/08/2020 1:50 PM CDT 800 mL/hr New Bag 11/08/2020 11:29 AM CDT 10 mL/hr documented in this encounter Active and Recently Administered Medications Times are shown in CDT. Continuous Medication Order 11/06/2020 11/07/2020 11/08/2020 lactated ringers infusion at 10 mL/hr, Intravenous, Continuous, Starting on Sun11/08/20 at 1115, Until Sun11/08/20 at 1644, Infuse at TKO rate, Pre-Op 1129 (New Bag - Prov ider: Alcira Monsivais RN)1350 (Rate/Dose Change - Provider: Candice Gotti CRNA) documented in this encounter Care Teams Analysis Or Research Safety Inspector Relationship Specialty Start Date End Date Mick Flowers MD [address] [place] [address] PCP - General 10/15/14 documented as of this encounter
--- OUTSIDE RECORDS SUMMARY | 2024-06-29 00:11 | XMS_ITS | Encounter Summary ---
Author Organization [facility] Address [address] [place] [address]. [place] [address] [place] [address] Care Team Providers Care Parole Officer Name Role Phone Mick Flowers MD Primary Care Provider [phone] Reason for Visit * Auth/Cert Specialty Diagnoses / Procedures Referred By Contac t Referred To Contact Diagnoses Gastroesophageal reflux disease, unspecified whether esophagitis present Lower abdominal pain Change in bowel habit Diarrhea GERD, change in bowel habits, diarrhea abdominal pain Procedures UPPER GI ENDOSCOPY,DIAGNOSIS COLONOSCOPY,DIAGNOSTIC EGD COLONOSCOPY Referral ID Status Reason Start Date Expiration Date Visits Re quested Visits Authorized [id number] 1 1 Encounter Details Date Type Department Care Team (Late st Contact Info) Description 11/08/2020 1:12 PM CDT Anesthesia Event [facility] Endo/[place] [address] Meek Kilpatrick MD [address] [place] [id number] Anesthesia Record Procedure Summary Procedure Name Responsible Anesthesiologist Anesthesia Start Time Anesthesia Stop Time EGD WITH gastric polypectomies via cold snare Meek Kilpatrick MD 11/08/20 1312 11/08/20 1352 Events Date Time Event Comment 11/08/2020 1149 1149 AN Anesthesia Prepped 1259 AN PATIENT INTAKE REPRESENTATIVE Prepped 1309 An Start Data 1309 Nasal Cannula Applied 1312 An Start Patient ID and consent checked and patient reassessed. 1316 An Induction The patient was reevaluated immediately before moderate or deep sedation use and before anesthesia induction. 1318 Anesthesia Ready 1345 An Emergence 1347 Nasal Cannula Removed 1351 an stop data 1352 Post Anesthetic Care Handoff I completed my handoff to the receiving nurse during which we: 1. Identified the patient 2. Identified the responsible provider 3. Reviewed the pertinent medical history 4. Discussed the surgical course 5. Reviewed intra-op anesthesia management and issues during anesthesia 6. Set expectations for post-procedure period 7. Allowed opportunity for questions and acknowledgement of understanding. 1352 An Stop Meds Name Total propofol (DIPRIVAN) 200 mg/20 mL injecti on 450 mg lactated ringers infusion 0 mL * Agents Name O2 N2O Air Ancillary O2 * Blood No blood administrations on file. Lines, Drains, and Airways Type Details Placement Removal Peripheral IV Placement Date: 10/23 01/12; Placement Time: 1128; Placed Outside of This Facility?: No; Size: 20 G; Orientation: Right; Location: Hand; Site Prep: Chlorhexidine; Local Anesthetic: None; Inserted By: Wilma RODRIGUES; Insertion attempts: 1; Ultrasound-guided Placement?: No; Patient Tolerance: Tolerated well; Removal Date: 11/08/20; Removal Time: 1413 11/08/20 1128 by Alcira Monsivais RN 11/08/20 1413 by Nikky Lott RN documented in this encounter Social History Tobacco Use Types Packs/Day Years Used Date Smoking Tobacco: Never Smokeless Tobacco: Never Alcohol Use Standard Drinks/Week Comments Yes 0 (1 standard drink = 0.6 oz pur e alcohol) [place] 4 oz every night AUDIT-C Answer Date [...] AM CDT documented as of this encounter OR Notes * Anesthesia Postprocedure Evaluation - Meek Kilpatrick MD - 11/08/2020 2:33 PM CDT Anesthesia Post-op Note Doc A Holten Procedure(s): EGD WITH gastric polypectomies via cold snare (N/A ) COLONOSCOPY WITH descending colon polypectomy via cold snare (N/A ) Anesthesia type: general Vitals: 11/08/20 1428 BP: 139/83 Vitals: 11/08/20 1428 Pulse: 55 Vitals: 11/08/20 1428 Resp: 18 Vitals: 11/08/20 1357 Temp: 35.6 ??C Vitals: 11/08/20 1428 SpO2: 100% Patient Location: Phase II/Outpatient Level of Consciousness: awake Pain Management: adequate analgesia Airway Patency: patent Respiratory Status: acceptable Cardiovascular Status: acceptable Post-Op Nausea: none Postoperative Hydration: euvolemic No complications documented. * Anesthesia Postprocedure Evaluation - Meek Kilpatrick MD - 11/08/2020 2:00 PM CDT Anesthesia Post-op Note Doc A Holten Procedure(s): EGD WITH gastric polypectomies via cold snare (N/A ) COLONOSCOPY WITH descending colon polypectomy via cold snare (N/A ) Anesthesia type: general Vitals: 11/08/20 1428 BP: 139/83 Vitals: 11/08/20 1428 Pulse: 55 Vitals: 11/08/20 1428 Resp: 18 Vitals: 11/08/20 1357 Temp: 35.6 ??C Vitals: 11/08/20 1428 SpO2: 100% Patient Location: Other (Endoscopy) Level of Consciousness: awake Pain Management: adequate analgesia Airway Patency: patent Respiratory Status: acceptable Cardiovascular Status: acceptable Post-Op Nausea: none Postoperative Hydration: euvolemic No complications documented. * Anesthesia Preprocedure Evaluation - Meek Kilpatrick MD - 11/08/2020 10:54 AM CDT Anesthesia ROS/MED History Reviewed: Patient summary , ECG, Family history anesthesia, Anesthesia history , Medications , Labs , Images/Studies , Unchecked boxes are not applicable Pre-Anesthetic State: alert, awake and responds appropriately no history of anesthetic complications Pulmonary Cardiovascular (+) hypertension, hyperlipidemia Neuro/Psych Comments: MS GI/Hepatic/Renal (+) GERD Endo/Other GENERAL COMMENTS No Known Allergies Past Medical History: No date: Anxiety No date: Erectile dysfunction No date: Herpes zoster No date: Hyperlipidemia No date: Hypertension No date: Multiple sclerosis (CMS/HCC) No date: S/P Botox injection Comment: in bladder every 6 months Past Surgical History: No date: BLADDER SURGERY 2011: COLONOSCOPY Comment: normal per pt Physical Evaluation Airway Mallampati: II TM Distance: >3 FB Neck ROM: normal Dental No notable dental history Pulmonary Pulmonary exam normal Breath sounds clear to auscultation Cardiovascular Rhythm: regular Rate: normal Cardiovascular exam normal Other findings: Blood pressure (!) 179/94, pulse 60, temperature 36.3 ??C, temperature source Temporal, resp. rate 16, weight 81.6 kg (180 lb), SpO2 98 %. No results for input(s): WBC, RBC, HGB, HCT, PLT, NA, K, CL, CO2, AGAP, BUN, CR, BUNCREATININ, GFRNON, GFR, GLU, CA in the last 72 hours. Anesthesia Plan ASA 2 Intravenous Induction Anesthesia type: general Discussed potential risks of General Anesthesia including but not limited to corneal abrasion, visual impairment or visual loss, mouth injury, dental damage, sore throat, hoarseness, esophageal injury, awareness under anesthesia, nerve injury due to positioning, aspiration, pneumonia, stroke, cardiac event, adverse drug reactions and . Tiva anesthetic planned and discussed. Possible GA as needed. Informed Consent Anesthetic plan and risks discussed with patient of whom consent was obtained. . documented in this encounter Plan of Treatment Upcoming Encounters Date Type Department Care Team (Late st Contact Info) Description 09/09/2024 10:00 AM CDT Office Visit [facility] Medical [facility] Family & Internal Medicine [address] [address] Mick Flowers MD [address] [place] [address] documented as of this encounter Visit Diagnoses Not on filedocumented in this encounter Administered Medications Inactive Administered Medications - up to 3 most recent administrations Medication Order MAR Action Action Date Dose Rate Site lactated ringers infusion at 10 mL/hr, Intravenous, Continuous, Starting on Sun11/08/20 at 1115, Until Sun11/08/20 at 1644, Infuse at TKO rate, Pre-Op Rate/Dose Change 11/08/2020 1:50 PM CDT 800 mL/hr New Bag 11/08/2020 11:29 AM CDT 10 mL/hr propofol (DIPRIVAN) IV bolus Intravenous, PRN, Starting on Sun11/08/20 at 1315, Until Sun11/08/20 at 1352, Anesthesia Intra-Op Given 11/08/2020 1:39 PM CDT 50 mg Given 11/08/2020 1:36 PM CDT 50 mg Given 11/08/2020 1:31 PM CDT 50 mg documented in this encounter Care Teams Parole Officer Relationship Specialty Start Date End Date Mick Flowers MD [address] [place] [address] PCP - General 10/15/14 documented as of this encounter
--- OUTSIDE RECORDS SUMMARY | 2024-06-29 00:11 | XMS_ITS | Encounter Summary ---
Author Organization [facility] Address [address] [place] [address]. [place], [place] [address] [place] [address] Care Team Providers Care Health Support Specialist Name Role Phone Mick Flowers MD Primary Care Provider [phone] Reason for Visit * Reason Comments Follow Up procedure follow up/ GERD * Consultation/Treatment (Routine) - Closed Specialty Diagnoses / Procedures Referred By Contac t Referred To Contact GASTROENTEROLOGY Diagnoses stomach issues Procedures Mick Flowers MD [address] [place] [address] Phone: tel: fax: [facility] [address] [facility], [address] [place] [address] Phone: tel: fax: Referral ID Status Reason Start Date Expiration Date Visits Re quested Visits Authorized [id number] Closed 09/29/2020 12/26/2021 100 100 Encounter Details Date Type Department Care Team (Latest Contact Info) Description 11/24/2020 9:40 AM CDT [facility]ult [facility] [address] [facility] [place] [address] Lindsay Bess NP [address] [facility] [address] [place] [address] Follow Up (procedure follow up/GERD) Social History Tobacco Use Types Packs/Day Years Used Date Smoking Tobacco: Never Smokeless Tobacco: Never Alcohol Use Standard Drinks/Week Comments Yes 0 (1 standard drink = 0.6 oz pur e alcohol) [place] 4 oz every night AUDIT-C Answer Date [...] as of this encounter Progress Notes * Lindsay Bess NP - 11/24/2020 9:40 AM CDT I had a brief patient communication by Telephone for procedure follow up. I responded to the patient by Telephone with the following recommendations repeat EGD and colonoscopy in 5 years due polyps in stomach and descending colon. Dr. Myers would like pt to remain on PPI therapy for now. Patient is doing very well with his acid reflux symptoms and has not had ability 1/month while using the omeprazole. We will continue using omeprazole approximately 4 more weeks I have also added famotidine 20 mgtwice daily that he can transition over to and hopefully eventually just use on an as-needed basis.I did talk extensively to patient about the medication. Renewed script for 2 more months on 11/23/2020. Prior to communication, I educated patient on insurance cost-sharing and obtained verbal consent.Total Time Spent in Minutes: 15 from [phone] 11/08/2020 EGD and colonoscopy per Dr. Kilo Myers Findings: Multiple gastric polyps removed. Descending colon 6mm polyp removed by snare. Mild internal hemorrhoids Rest examination was negative. ? Plan: Check the pathology. Continue PPI medication for now. Final Pathologic Diagnosis A. ??GASTRIC POLYPS, BIOPSY: ?- FUNDIC GLAND POLYPS ?- NO H. PYLORI ORGANISMS (IHC) B. ??DESCENDING COLON POLYP, BIOPSY: ?- TUBULAR ADENOMA, NO HIGH GRADE DYSPLASIA Notes less than once every 3 weeks he has acid reflux. About once a week he has diarrhea, using levsin when in public and has been helpful. Patient does stress the desire to get off the acid reducingmedication if possible. We did talk about how to safely transition and to watch for symptom return.Patient declines any follow-up visit at this time but will call for any ongoing questions or concern s. documented in this encounter Plan of Treatment Upcoming Encounters Date Type Department Care Team (Late st Contact Info) Description 09/09/2024 10:00 AM CDT Office Visit [facility] Family & Internal Medicine - [address] [address] Mick Flowers MD [address] [place] [address] documented as of this encounter Visit Diagnoses Diagnosis Gastroesophageal reflux disease, unspecified whether esophagitis present- Primary documented in this encounter Care Teams Health Support Specialist Relationship Specialty Start Date End Date Mick Flowers MD [address] [place] [address] PCP - General 10/15/14 documented as of this encounter
--- OUTSIDE RECORDS SUMMARY | 2024-06-29 00:11 | XMS_ITS | Encounter Summary ---
Author Organization [facility] Address [address] [place] [address]. [place] [address] [place] [address] Care Team Providers Care Manager Air Name Role Phone Mick Flowers MD Primary Care Provider [phone] Encounter Details Date Type Department Care Team (Late st Contact Info) Description 11/08/2020 Medication Management [facility] Medical [facility] Multispecialty Care - [facility] [address] [facility] [address] [place] [phone] Kilo Myers MD 3 [facility] [place] [address] [place], [place] [phone] Social History Tobacco Use Types Packs/Day Years Used Date Smoking Tobacco: Never Smokeless Tobacco: Never Alcohol Use Standard Drinks/Week Comments Yes 0 (1 standard drink = 0.6 oz pur e alcohol) [place] 4 oz every night AUDIT-C Answer Date [...] CENTER Medical [facility] Family & Internal Medicine [address] [address] Mick Flowers MD [address] [place] [address] documented as of this encounter Visit Diagnoses Diagnosis Irritable bowel syndrome with diarrhea- Primary Irritable bowel syndrome documented in this encounter Care Teams Manager Air Relationship Specialty Start Date End Date Mick Flowers MD [address] [place] [address] PCP - General 10/15/14 documented as of this encounter
--- OUTSIDE RECORDS SUMMARY | 2024-06-29 00:11 | XMS_ITS | Encounter Summary ---
Author Organization [facility] Address [address] [place] [address]. [place], [place] [phone] [place] [address] Care Team Providers Care Fibrous Plasterer Name Role Phone Mick Flowers MD Primary Care Provider [phone] Encounter Details Date Type Department Care Team (Late st Contact Info) Description 11/02/2020 Prep for Procedure [facility] [place], [place] [phone] Kilo Myers MD [address] [phone] Social History Tobacco Use Types Packs/Day Years Used Date Smoking Tobacco: Never Smokeless Tobacco: Never Alcohol Use Standard Drinks/Week Comments Yes 0 (1 standard drink = 0.6 oz pur e alcohol) [place] 4 oz every night AUDIT-C Answer Date [...] CENTER Medical Group Family & Internal Medicine [address] [address] Mick Flowers MD [address] [place] [address] documented as of this encounter Results * PRE-SURGICAL/PRE-PROCEDURE CORONAVIRUS (COVID 19) (11/05/2020 9:20 AM CDT) CORONAVIRUS SARS COV 2 PCR (RESP) NOT DETECTED NOT DETECTED 11/06/2020 5:30 PM CDT [facility] Comment: A Not Detected (negative) test result [...] providers and patients using the following websites: https://www.[employer].com/home/Covid-19/HCP/NAAT/fact-sheet2 https://www.[employer]/home/Covid-19/Patients/NAAT/ fact-sheet2 This test has been authorized by the FDA under an Emergency Use Authorization (EUA) for use by authorized laboratories. Due to the current public health emergency, [facility] is receiving a high volume of samples [...] about COVID-19 can be found at the [facility] website: www.[employer]/Covid19. Test performed at [facility] [address] ??[phone] Director: JELLY MAYERS DO,MPH FIRST TEST NO 11/05/2020 11:28 AM CDT [facility] EMPLOYED IN HEALTHCARE NO 11/05/2020 11:28 AM CDT [facility] SYMPTOMATIC DEFINED BY CDC NO 11/05/2020 11:28 AM CDT [facility] DATE OF SYMPTOM ONSET =FASTING UNKNOWN 11/05/2020 12:31 PM CDT [facility] HOSPITALIZATION STATUS NO 11/05/2020 11:28 AM CDT [facility] PATIENT IN ICU NO 11/05/2020 11:28 AM CDT [facility] RESIDENT OF [facility] NO 11/05/2020 11:28 AM CDT [facility] NO 11/05/2020 12:31 PM CDT [facility] PATIENT'S RACE WHITE OR 11/05/2020 11:28 AM CDT [facility] ETHNICITY NONHISPANIC 11/05/2020 11:28 AM CDT [facility] SOURCE (QST) NASOPHARYNGEAL SWAB 11/05/2020 11:28 AM CDT [facility] NASOPHARYNGEAL SWAB / Unknown 11/05/2020 9:20 AM CDT us Kilo Myers MD MICROBIOLOGY - GENERAL ORDERABLE S Final Result [facility] [address] [place] [address], [facility] [address] [place] [address], documented in this encounter Visit Diagnoses Diagnosis GERD (gastroesophageal reflux disease)- Primary Esophageal reflux Diarrhea documented in this encounter Additional Health Concerns Infection Onset Date Last Indicated Resolved Time COVID-19 Rule Out 11/05/2020 11/05/2020 11/06/2020 5:30 PM CDT documented as of this encounter Care Teams Fibrous Plasterer Relationship Specialty Start Date End Date Mick Flowers MD [address] [place] [address] PCP - General 10/15/14 documented as of this encounter
--- OUTSIDE RECORDS SUMMARY | 2024-06-29 00:11 | XMS_ITS | Encounter Summary ---
Author Organization [facility] Address [address] [place] [address]. [place], [place] [address] [place] [address] Care Team Providers Care Teacher Cclc Name Role Phone Mick Flowers MD Primary Care Provider [phone] Encounter Details Date Type Department Care Team (Latest Contact Info) Description 04/28/2021 Travel Social History Tobacco Use Types Packs/Day Years Used Date Smoking Tobacco: Never Smokeless Tobacco: Never Alcohol Use Standard Drinks/Week Comments Yes 0 (1 standard drink = 0.6 oz pur e alcohol) [place] 4 oz every night AUDIT-C Answer Date [...] have Coronavirus / COVID-19? No / Unsure 04/28/2021 10:20 AM CDT documented as of this encounter Plan of Treatment Upcoming Encounters Date Type Department Care Team (Late st Contact Info) Description 09/09/2024 10:00 AM CDT Office Visit [facility] Medical Group Family & Internal Medicine [address] [address] Mick Flowers MD [address] [place] [address] documented as of this encounter Visit Diagnoses Not on filedocumented in this encounter Additional Health Concerns Assessment Noted Time PHQ-9 Depression Total Score: 0 04/28/20 21 11:07 AM CDT documented as of this encounter Care Teams Teacher Cclc Relationship Specialty Start Date End Date Mick Flowers MD [address] [place] [address] PCP - General 10/15/14 documented as of this encounter
--- OUTSIDE RECORDS SUMMARY | 2024-06-29 00:11 | XMS_ITS | Encounter Summary ---
Author Organization [facility] Address [address] [place] [address]. [place], [place] [address] [place] [address] Care Team Providers Care Automotive Teacher Name Role Phone Mick Flowers MD Primary Care Provider [phone] Reason for Visit * Reason Onset Date Comments Appointment Request 10/19/2020 Encounter Details Date Type Department Care Team (Late st Contact Info) Description 10/19/2020 Telephone [facility] - [facility] [address] [facility], [address] [place] [address] Lindsay Bess NP [address] [facility] [address] [place] [address] Appointment Request Social History Tobacco Use Types Packs/Day [...] Progress Notes * Estela Mcgill - 10/19/2020 3:59 PM CDT Spoke with patient message given. * Rafia Walker - 10/19/2020 3:49 PM CDT Patient had his appointment with Lindsay cancelled on 10/18/20. He is wanting to speak with the officeabout rescheduling. I saw where he has an appt. in November however he is requesting to speak with the office. Patient call back number [phone]. documented in this encounter Plan of Treatment Upcoming Encounters Date Type Department Care Team (Late st Contact Info) Description 09/09/2024 10:00 AM CDT Office Visit [facility] Family & Internal Medicine - [address] [phone] Mick Flowers MD [address] [place] [address] documented as of this encounter Visit Diagnoses Not on filedocumented in this encounter Care Teams Automotive Teacher Relationship Specialty Start Date End Date Mick Flowers MD [address] [place] [address] PCP - General 10/15/14 documented as of this encounter
--- OUTSIDE RECORDS SUMMARY | 2024-06-29 00:11 | XMS_ITS | Encounter Summary ---
Author Organization [facility] Address [address] [place] [address]. [place], [place] [address] [place] [address] Care Team Providers Care Laborer Landscape Name Role Phone Mick Flowers MD Primary Care Provider [phone] Reason for Visit * Reason Onset Date Comments Results 09/08/2021 Encounter Details Date Type Department Care Team (Late st Contact Info) Description 09/08/[address] [facility] Family & Internal Medicine [place] [id number] [place] [address] Mick Flowers MD [facility] [place], [place] [id number] Results Social History Tobacco Use Types Packs/Day Years Used Date Smoking Tobacco: Never Smokeless Tobacco: Never Alcohol Use Standard Drinks/Week Comments Yes 0 (1 standard drink = 0.6 oz pur e alcohol) [place] 4 oz every night AUDIT-C Answer Date [...] as of this encounter Progress Notes * Maddi Mackenzie MA - 09/08/2021 2:40 PM CDT Pt notified and v/u to this. BB 09/08/2021 * Maddi Mackenzie MA - 09/08/2021 2:39 PM CDT ----- Message from Mick Flowers MD sent at 09/08/2021 1:14 PM CDT ----- LDL is slightly elevated, diet and exercise Rx. Other labs are good. documented in this encounter Plan of Treatment Upcoming Encounters Date Type Department Care Team (Late st Contact Info) Description 09/09/2024 10:00 AM CDT Office Visit [facility] Family & Internal Medicine - [address] [address] Mick Flowers MD [address] [place] [address] documented as of this encounter Visit Diagnoses Not on filedocumented in this encounter Additional Health Concerns Assessment Noted Time PHQ-9 Depression Total Score: 0 04/28/20 21 11:07 AM CDT documented as of this encounter Care Teams Laborer Landscape Relationship Specialty Start Date End Date Mick Flowers MD [address] [place] [address] PCP - General 10/15/14 documented as of this encounter
--- OUTSIDE RECORDS SUMMARY | 2024-06-29 00:11 | XMS_ITS | Encounter Summary ---
Author Organization [facility] Address [address] [place] [address]. [place], [place] [address] [place] [address] Care Team Providers Care Remelt Operator Name Role Phone Mick Flowers MD Primary Care Provider [phone] Encounter Details Date Type Department Care Team (Latest Contact Info) Description 02/17/2021 Scan HEALTH INFO SRVCS Scanned, Documents Social History Tobacco Use Types Packs/Day Years Used Date Smoking Tobacco: Never Smokeless Tobacco: Never Alcohol Use Standard Drinks/Week Comments Yes 0 (1 standard drink = 0.6 oz pur e alcohol) [place] 4 oz every night AUDIT-C Answer Date [...] Description 09/09/2024 10:00 AM CDT Office Visit [facility] Family & Internal Medicine - [address] [phone] Mick Flowers MD [address] [place] [address] documented as of this encounter Visit Diagnoses Not on filedocumented in this encounter Care Teams Remelt Operator Relationship Specialty Start Date End Date Mick Flowers MD [address] [place] [address] PCP - General 10/15/14 documented as of this encounter
--- OUTSIDE RECORDS SUMMARY | 2024-06-29 00:11 | XMS_ITS | Encounter Summary ---
Author Organization [facility] Address [address] [place] [address]. [place], [place] [address] [place] [address] Care Team Providers Care Chassis Inspector Name Role Phone Mick Flowers MD Primary Care Provider [phone] Reason for Visit * Reason Onset Date Comments Reschedule 10/18/2020 Encounter Details Date Type Department Care Team (Late st Contact Info) Description 10/18/2020 Telephone [facility] Family & Internal Medicine [facility] [address] [place] [address] Mick Flowers MD [facility] [place], [place] [id number] Reschedule Social History Tobacco Use Types Packs/Day Years [...] as of this encounter Progress Notes * Rosina Yu MA - 10/18/2020 8:40 AM CDT Telephoned pt. To rescheduled appointment, do to provider emergency and had to leave. Pt. States doesn't want to be rescheduled would like for a nurse to contact him to discuss medication. documented in this encounter Plan of Treatment Upcoming Encounters Date Type Department Care Team (Late st Contact Info) Description 09/09/2024 10:00 AM CDT Office Visit [facility] Family & Internal Medicine - [address] [phone] Mick Flowers MD [address] [place] [address] documented as of this encounter Visit Diagnoses Not on filedocumented in this encounter Care Teams Chassis Inspector Relationship Specialty Start Date End Date Mick Flowers MD [address] [place] [address] PCP - General 10/15/14 documented as of this encounter
--- OUTSIDE RECORDS SUMMARY | 2024-06-29 00:11 | XMS_ITS | Encounter Summary ---
Author Organization [facility] Address [address] [place] [address]. [place], [place] [address] [place] [address] Care Team Providers Care Director Pharmacy Services Name Role Phone Mick Flowers MD Primary Care Provider [phone] Encounter Details Date Type Department Care Team (Latest Contact Info) Description 11/04/2020 Scan HEALTH INFO SRVCS Scanned, Documents Social History Tobacco Use Types Packs/Day Years Used Date Smoking Tobacco: Never Smokeless Tobacco: Never Alcohol Use Standard Drinks/Week Comments Yes 0 (1 standard drink = 0.6 oz pur e alcohol) [place] 4 oz every night AUDIT-C Answer Date [...] Description 09/09/2024 10:00 AM CDT Office Visit [facility] Family & Internal Medicine [address] [phone] Mick Flowers MD [address] [place] [address] documented as of this encounter Visit Diagnoses Not on filedocumented in this encounter Additional Health Concerns Infection Onset Date Last Indicated Resolved Time COVID-19 Rule Out 11/05/2020 11/05/2020 11/06/2020 5:30 PM CDT documented as of this encounter Care Teams Director Pharmacy Services Relationship Specialty Start Date End Date Mick Flowers MD [address] [place] [address] PCP - General 10/15/14 documented as of this encounter
--- OUTSIDE RECORDS SUMMARY | 2024-06-29 00:11 | XMS_ITS | Encounter Summary ---
Author Organization [facility] Address [address] [place] [address]. [place], [place] [address] [place] [address] Care Team Providers Care Research Chief Engineer Name Role Phone Mick Flowers MD Primary Care Provider [phone] Reason for Visit * Reason Onset Date Comments Results 11/11/2020 Encounter Details Date Type Department Care Team (Late st Contact Info) Description 11/11/2020 Telephone [facility] Multispecialty Care - [facility] [address] [facility], [address] [place] [address] Kilo Myers MD 3 [facility] [address] [place] [address] Results Social History Tobacco Use Types Packs/Day Years Used Date Smoking Tobacco: Never Smokeless Tobacco: Never Alcohol Use Standard Drinks/Week Comments Yes 0 (1 standard drink = 0.6 oz pur e alcohol) [place] 4 oz every night AUDIT-C Answer Date [...] as of this encounter Progress Notes * Wilma Kim - 11/11/2020 10:06 AM CDT Pt returned call, transferred to Rosalee * Rosalee Valadez MA - 11/11/2020 9:48 AM CDT LVM for patient to relay ----- Message from Kilo Myers MD sent at 11/11/2020 9:07 AM CDT ----- Your gastric polyps are benign. Colon polyp is benign. Repeat EGD and colon in 5 years documented in this encounter Plan of Treatment Upcoming Encounters Date Type Department Care Team (Late st Contact Info) Description 09/09/2024 10:00 AM CDT Office Visit [facility] Family & Internal Medicine [address] [phone] Mick Flowers MD [address] [place] [address] documented as of this encounter Visit Diagnoses Not on filedocumented in this encounter Care Teams Research Chief Engineer Relationship Specialty Start Date End Date Mick Flowers MD [address] [place] [address] PCP - General 10/15/14 documented as of this encounter
--- OUTSIDE RECORDS SUMMARY | 2024-06-29 00:11 | XMS_ITS | Encounter Summary ---
Author Organization [facility] Address [address] [place] [address]. [place], [place] [id number] [place] [id number] Care Team Providers Care Front End Software Developer Name Role Phone Mick Flowers MD Primary Care Provider Reason for Visit * Reason Comments Physical Encounter Details Date Type Department Care Team (Late st Contact Info) Description 04/28/2021 10:40 AM CDT Office Visit [facility] Family & Internal Medicine [address] [phone] Mick Flowers MD [address] [place] [phone] Physical Social History Tobacco Use Types Packs/Day Years Used Date Smoking Tobacco: Never Smokeless Tobacco: Never Alcohol Use Standard Drinks/Week Comments Yes 0 (1 standard drink = 0.6 oz pur e alcohol) Waldo 4 oz every night AUDIT-C Answer Date [...] Sign Reading Time Taken Comments Blood Pressure 120/88 04/28/2021 11:07 AM CDT Pulse 60 04/28/2021 11:07 AM CDT Temperature 36.3 ??C (97.4 ??F) 04/28/2021 11:07 AM C DT Respiratory Rate 16 04/28/2021 11:07 AM CDT Oxygen Saturation 98% 04/28/2021 11:07 AM CDT Inhaled Oxygen Concentration - - Weight 83.7 kg (184 lb 9.6 oz) 04/28/2021 11:07 AM CDT Height 177.8 cm (5' 10 ) 04/28/2021 11:07 AM CDT Body Mass Index 26.49 04/28/2021 11:07 AM CDT documented in this encounter Progress Notes * Mick Flowers MD - 04/28/2021 10:40 AM CDT The patient is being seen for a health maintenance evaluation. The last health maintenance exam was1 year ago. General Health: good Dental Health: Sees dentist regularly, Brushes regularly and Flosses regularly Vision Health: Wears glasses and Last eye exam > 1 year ago Hearing Health: No hearing problems Immunizations Needed: up to date Weight: Normal BMI Physical Activity: Excersises regularly Sexual Activity: Social History Substance and Sexual Activity Sexual Activity Yes ??? Partners: Female Prostate Cancer Screening: No family history of prostate cancer Testicular Cancer Screening: Monthly self testicular exam Colorectal Cancer Screening: Colonoscopy last done: 11/08/20 Metabolic Screening: Glucose screen: Last done: , Lipid Profile: Last done: 04/18/21 and Thyroid Function Test: Last done: 04/18/21 HCV Screening: Health Risks Cardiovascular Risk Factors: Hypertension General Health Risks: none Safety Elements Used: [...] SURGERY ??? COLONOSCOPY 2011 normal per pt ??? COLONOSCOPY N/A 11/08/2020 COLONOSCOPY WITH descending colon polypectomy via cold snare performed by Kilo Myers MD at [facility] Family History Problem Relation Name Age of [...] Sexual Activity ??? Alcohol use: Yes Comment: Waldo 4 oz every night ??? Drug use: [...] Gatherings with Friends and Family: ??? Attends Anabaptist Services: ??? Active Member of Clubs or Organizations: ??? Attends Club or Organization Meetings: ??? Marital Status: Intimate Partner Violence: ??? Fear of Current or Ex-Partner: ??? Emotionally Abused: ??? Physically Abused: ??? Sexually Abused: Immunization History Administered Date(s) Administered ??? Afluria 36 MONTHS+ (Prefilled Syringe IIV4) 04/02/2019 ? ? Flucelvax Adult - >Age4 (Prefilled Syringe) 03/26/2020 ??? Influenza 04/16/2013, 06/01/2017 ??? Influenza Adult (Generic) 03/31/2015, 03/31/2015, 03/26/2016, 05/31/2017, 04/02/2018, 04/03/2018, 04/04/2021 ??? PFIZER COVID-19, MRNA, LNP-S, PF, 30 MCG/0.3 ML DOSE 09/06/2020, 09/27/2020, 04/04/2021 ??? Zoster (Zostavax) 23229 Unt/0.65Ml 07/11/2017 Current Outpatient Medications Medication Sig Dispense Refill ??? ALPRAZOLAM 0.5 MG tablet TAKE 1 TABLET(0.5 MG) BY MOUTH THREE TIMES DAILY NEEDED 60 tablet 0 ??? Alprostadil, Vasodilator, (EDEX) 20 MCG Kit 1 mL by Intracavernosal route as needed. 10-30 minutes prior to intercourse 30 kit 0 ??? atorvastatin 40 MG tablet Take 1 tablet (40 mg total) by mouth nightly at bedtime. 90 tablet 3 ??? baclofen 10 MG tablet Take 10 mg by mouth 3 (three) times daily. Indications: Multiple Sclerosis ??? FAMOTIDINE 20 MG tablet TAKE 1 [...] 28G X 1/2 0.5 ML Misc ??? LOSARTAN 100 MG tablet TAKE 1 TABLET(100 MG) BY MOUTH DAILY 90 tablet 0 ??? MILK THISTLE OR ??? omeprazole EC 20 MG tablet Take 1 tablet (20 mg total) by mouth daily. 30 tablet 1 ??? OnabotulinumtoxinA (BOTOX IJ) Inject as directed every 6 (six) months. Indications: Overactive Bladder ??? potassium chloride CR 20 MEQ Tab CR tablet Take 1 tablet by mouth daily. 90 tablet 3 ??? probiotic capsule Take 1 capsule by mouth daily. ??? urea 40 % Cream APPLY AND [...] needed. 10-30 minutes prior to intercourse ??? atorvastatin 40 MG tablet Take 1 tablet (40 mg total) by mouth nightly at bedtime. ??? baclofen 10 MG tablet Take 10 mg by mouth 3 (three) times daily. Indications: Multiple Sclerosis ??? FAMOTIDINE 20 MG tablet TAKE 1 [...] 28G X 1/2 0.5 ML Misc ??? LOSARTAN 100 MG tablet TAKE 1 TABLET(100 MG) BY MOUTH DAILY ??? MILK THISTLE OR ??? omeprazole EC 20 MG tablet Take 1 tablet (20 mg total) by mouth daily. ??? OnabotulinumtoxinA (BOTOX IJ) Inject as directed every 6 (six) months. Indications: Overactive Bladder ??? potassium chloride CR 20 MEQ Tab CR tablet Take 1 tablet by mouth daily. ??? probiotic capsule Take 1 capsule by mouth daily. ??? urea 40 % Cream APPLY AND RUB IN A THIN FILM TO AFFECTED AREA(S) DAILY. ??? vitamin D3, cholecalciferol, (VITAMIN D-3) 10 MCG (400 UNIT) tablet Take 400 Units by mouth daily. No current facility-administered medications on file prior to visit. No Known Allergies Objective: Vitals: 04/28/21 1107 BP: 120/88 Pulse: 60 Resp: 16 Temp: 97.4 ??F (36.3 ??C) SpO2: 98% Physical Exam Constitutional: He is oriented to person, place, and time and well-developed, well-nourished, and in no distress. HENT: Head: Normocephalic and atraumatic. Right Ear: External ear normal. Left Ear: External ear normal. Nose: Nose normal. Mouth/Throat: Oropharynx is clear and moist. Eyes: Pupils are equal, round, and reactive to light. Conjunctivae and EOM are normal. Cardiovascular: Normal rate, regular rhythm, normal heart sounds and intact distal pulses. Pulmonary/Chest: Effort normal and breath sounds normal. Abdominal: Soft. Bowel sounds are normal. Musculoskeletal: General: Normal range of motion. Cervical back: Normal range of motion and neck supple. Neurological: He is alert and oriented to person, place, and time. Gait normal. Skin: Skin is warm and dry. Psychiatric: Mood and affect normal. Assessment: Patient Active Problem List Diagnosis ??? [...] visit: Routine [facility] at a [facility] Benign essential hypertension - Cancel: CBC W/DIFF AUTOMATED; Future - Cancel: LIPID PANEL; Future - Cancel: TSH W/REFLEX; Future - Cancel: URINALYSIS WI REFLEX TO CULTURE; Future - Cancel: URIC ACID BLOOD; Future - Cancel: COMPREHENSIVE METABOLIC PANEL; Future - CBC W/DIFF AUTOMATED - LIPID PANEL - TSH W/REFLEX - URINALYSIS WI REFLEX TO CULTURE - URIC ACID BLOOD - COMPREHENSIVE METABOLIC PANEL - CBC W/DIFF AUTOMATED; Future - LIPID PANEL; Future - VITAMIN D, 25 OH; Future - URINALYSIS WI REFLEX TO CULTURE; Future - COMPREHENSIVE METABOLIC PANEL; Future - CK (CPK); Future - CBC W/DIFF AUTOMATED - LIPID PANEL - VITAMIN D, 25 OH - URINALYSIS WI REFLEX TO CULTURE - COMPREHENSIVE METABOLIC PANEL - CK (CPK) Mixed hyperlipidemia - Cancel: CBC W/DIFF AUTOMATED; Future - Cancel: LIPID PANEL; Future - Cancel: TSH W/REFLEX; Future - Cancel: URINALYSIS WI REFLEX TO CULTURE; Future - Cancel: URIC ACID BLOOD; Future - Cancel: COMPREHENSIVE METABOLIC PANEL; Future - CBC W/DIFF AUTOMATED - LIPID PANEL - TSH W/REFLEX - URINALYSIS WI REFLEX TO CULTURE - URIC ACID BLOOD - COMPREHENSIVE METABOLIC PANEL - CBC W/DIFF AUTOMATED; Future - LIPID PANEL; Future - VITAMIN D, 25 OH; Future - URINALYSIS WI REFLEX TO CULTURE; Future - COMPREHENSIVE METABOLIC PANEL; Future - CK (CPK); Future - CBC W/DIFF AUTOMATED - LIPID PANEL - VITAMIN D, 25 OH - URINALYSIS WI REFLEX TO CULTURE - COMPREHENSIVE METABOLIC PANEL - CK (CPK) Vitamin D deficiency - Cancel: VITAMIN D, 25 OH; Future - VITAMIN D, 25 OH - VITAMIN D, 25 OH; Future - VITAMIN D, 25 OH Screening for prostate cancer - Cancel: PROSTATE SPECIFIC ANTIGEN,SCREENING; Future - Cancel: PROSTATE SPECIFIC ANTIGEN,SCREENING - PROSTATE SPECIFIC ANTIGEN,SCREENING; Future - PROSTATE SPECIFIC ANTIGEN,SCREENING Discussion/Summary: Doing well overall Limiti alcohol intake to 1-2 drinks/day Continue with regular exercise Follow up in 6 months. MICK FLOWERS MD * Mick Flowers MD - 04/28/2021 10:40 AM CDT LDL is slightly elevated, diet and exercise Rx. Other labs are good. documented in this encounter Plan of Treatment Upcoming Encounters Date Type Department Care Team (Late st Contact Info) Description 09/09/2024 10:00 AM CDT Office Visit [facility] Family & Internal Medicine - [address] [phone] Mick Flowers MD [address] [place] [phone] documented as of this encounter Procedures Procedure Name Priority Date/Time Associated Diagnosis Comments URINALYSIS WI REFLEX TO CULTURE Routine 08/31/2021 9:25 AM WHOLESALE BUYER PROSTATE SPECIFIC ANTIGEN,SCREENING Routine 08/31/2021 9:25 AM WHOLESALE BUYER Screening for prostate cancer COMPREHENSIVE METABOLIC PANEL Routine 08/31/2021 9:25 AM WHOLESALE BUYER Benign essential hypertension Mixed hyperlipidemia LIPID PANEL Routine 08/31/2021 9:25 AM WHOLESALE BUYER Benign essential hypertension Mixed hyperlipidemia CBC W/DIFF AUTOMATED Routine 08/31/2021 9:25 AM WHOLESALE BUYER Benign essential hypertension Mixed hyperlipidemia VITAMIN D, 25 OH Routine 08/31/2021 9:25 AM WHOLESALE BUYER CK (CPK) Routine 08/31/2021 9:25 AM WHOLESALE BUYER Benign essential hypertension Mixed hyperlipidemia documented in this encounter Results * VITAMIN D, 25 OH (08/31/2021 9:25 AM WHOLESALE BUYER) VITAMIN D 25 HYDROXY TOTAL S/P/B 43.0 >29.9 ng/mL [facility]. Comment: Vitamin D, 25-Hydroxy reports concentrations of [...] any concern. Harleen MF, Bessy DUNBAR, Magaly INRGAM, et al. Evaluation, treatment, and prevention of vitamin D deficiency: an Endocrine Society clinical practice guideline. J Clin Endocrinol Metab. 2011;96(7):1911-30.This test is performed by a Liquid Chromatography-Tandem Mass Spectrometry (LC-MS/MS) method. This test was developed and its performance characteristics determined by the [id number]. It has not been cleared or approved by the U.S. FDA. The [facility] [id number]. is regulated under Clinical Laboratory Improvement Amendments [...] any concern. Harleen MF, Bessy DUNBAR, Magaly INGRAM, et al., Evaluation, treatment, and prevention of vitamin D deficiency: an Endocrine Society clinical practice guideline. J Clin. Endocrinol. Metab. 2011;96(7):1911-30. VITAMIN D 25 HYDROXY D3 S/P/B 41.8 ng/mL [facility]. Comment: This test was developed and its analytical performance characteristics have been determined by [facility]. It has not been cleared or approved by the FDA. This assay has been validated pursuant to the CLIA regulations and is used for clinical purposes. VITAMIN D 25 HYDROXY D2 S/P/B 1.2 ng/mL [facility]. Comment: This test was developed and its analytical performance characteristics have been determined by [facility]. It has not been cleared or approved by the FDA. This assay has been validated pursuant to the CLIA regulations and is used for clinical purposes. 08/31/2021 9:25 AM WHOLESALE BUYER 08/31/2021 9:27 AM WHOLESALE BUYER Narrative [facility] - 09/04/2021 12:38 PM CDT FASTING:YES FASTING: YES Mick Flowers MD LABORATORY Final Result [facility] [address] [facility] [address] [place] [address] * (ABNORMAL) URINALYSIS WI REFLEX TO CULTURE (08/31/2021 9:25 AM WHOLESALE BUYER) COLOR (U) YELLOW YELLOW [facility] APPEARANCE SEMEN CLEAR CLEAR [facility] SPECIFIC GRAVITY (U) 1.008 1.001 - 1.035 [facility] PH (U) 7.0 5.0 - 8.0 [facility] URINE GLUCOSE NEGATIVE NEGATIVE [facility] BILIRUBIN (U) NEGATIVE NEGATIVE [facility] KETONE (U) NEGATIVE NEGATIVE [facility] BLOOD (U) TRACE(A) NEGATIVE [facility] PROTEIN (U) NEGATIVE NEGATIVE [facility] NITRITES NEGATIVE NEGATIVE [facility] LEUKOCYTES (U) 1+(A) NEGATIVE [facility] WBC/HPF 10-20(A) < OR = 5 /HPF [facility] RBC/HPF NONE SEEN < OR = 2 /HPF [facility] SQUAMOUS EPITHELIAL (U) NONE SEEN < OR = 5 /HPF [facility] BACTERIA (U) NONE SEEN NONE SEEN /HPF [facility] HYALINE CASTS NONE SEEN NONE SEEN /LPF [facility] REFLEX URINE CULTURE: [facility] Comment:CULTURE INDICATED - RESULTS TO FOLLOW CULTURE RESULT [facility] Comment: ??CULTURE, URINE, ROUTINE ?Micro Number: ?[id number] ??Test Status: ? Final ??Specimen Source: ?? Urine ??Specimen Quality: ??Adequate ??Result: ?Mixed genital padmini isolated. These superficial ? bacteria are not indicative of a urinary tract ? infection. No further organism identification is ? warranted on this specimen. If clinically ? indicated, recollect clean-catch, mid-stream ? urine and transfer immediately to Urine Culture ? Transport Tube. 08/31/2021 9:25 AM WHOLESALE BUYER 08/31/2021 9:27 AM WHOLESALE BUYER Narrative [facility] - 09/04/2021 12:38 PM CDT FASTING:YES FASTING: YES us Mick Flowers MD URINE ORDERABLES Final Result [facility] [address] [place] [address] * PROSTATE SPECIFIC ANTIGEN,SCREENING (08/31/2021 9:25 AM WHOLESALE BUYER) PSA TOTAL 1.53 < OR = 2.50 ng/mL [facility] Comment: The total PSA value from this assay system is standardized against the WHO standard. The test result will be approximately 20% lower when compared to the equimolar-standardized total PSA ([place]). Comparison of serial PSA results should be interpreted with this fact in mind. This test was performed using the Siemens chemiluminescent method. Values obtained from different assay methods cannot be used interchangeably. PSA levels, regardless of value, should not be interpreted as absolute evidence of the presence or absence of disease. 08/31/2021 9:25 AM WHOLESALE BUYER 08/31/2021 9:27 AM WHOLESALE BUYER Narrative [facility] - 09/04/2021 12:38 PM CDT FASTING:YES FASTING: YES Mick Flowers MD LABORATORY Final Result Performing Organization Address [facility] Co de Phone Number [facility] [address] [place] [address] * CK (CPK) (08/31/2021 9:25 AM WHOLESALE BUYER) Pathologist [facility] TOTAL CK 100 44 - 196 U/L [facility] 08/31/2021 9:25 AM WHOLESALE BUYER 08/31/2021 9:27 AM WHOLESALE BUYER Narrative [facility] - 09/04/2021 12:38 PM CDT FASTING:YES FASTING: YES Mick Flowers MD LABORATORY Final Result Performing Organization Address [facility] Co de Phone Number [facility] [address] [place] [address] * COMPREHENSIVE METABOLIC PANEL (08/31/2021 9:25 AM WHOLESALE BUYER) GLUCOSE 95 65 - 99 mg/dL [facility] [place] Comment: ? Fasting reference interval BUN 13 7 - 25 mg/dL [facility] [place] CREATININE S/P/B 0.85 0.70 - 1.33 mg/dL [facility] [place] Comment: For patients >49 years of age, the reference limit for Creatinine is approximately 13% higher for people identified as -Prydeinig. EGFR NON-AFR. AMER. 97 > OR = 60 mL/min/1 .73m2 [facility] [place] EGFR AFR. AMER. 113 > OR = 60 mL/min/1 .73m2 [facility] [place] BUN CREATININE RATIO NOT APPLICABLE 6 - 22 (calc) [facility] [place] SODIUM S/P/B 137 135 - 146 mmol/L [facility] [place] POTASSIUM S/P/B 4.9 3.5 - 5.3 mmol/L [facility] [place] CHLORIDE S/P/B 101 98 - 110 mmol/L [facility] [place] CO2 32 20 - 32 mmol/L [facility] [place] CALCIUM S/P/B 10.2 8.6 - 10.3 mg/dL [facility] [place] TOTAL PROTEIN S/P/B 7.0 6.1 - 8.1 g/dL [facility] [place] ALBUMIN S/P/B 4.6 3.6 - 5.1 g/dL [facility] [place] GLOBULIN 2.4 1.9 - 3.7 g/dL (calc) [facility] [place] ALBUMIN/GLOBULIN RATIO 1.9 1.0 - 2.5 (calc) [facility] [place] BILIRUBIN TOTAL S/P/B 0.7 0.2 - 1.2 mg/dL [facility] [place] ALKALINE PHOSPHATASE S/P/B 103 35 - 144 U/L [facility] [place] AST 19 10 - 35 U/L [facility] [place] ALT 30 9 - 46 U/L [facility] [place] 08/31/2021 9:25 AM WHOLESALE BUYER 08/31/2021 9:27 AM WHOLESALE BUYER Narrative [facility] - 09/04/2021 12:38 PM CDT FASTING:YES FASTING: YES Mick Flowers MD LABORATORY Final Result [facility] [facility] [address] [address] [phone] * (ABNORMAL) LIPID PANEL (08/31/2021 9:25 AM WHOLESALE BUYER) CHOLESTEROL 199 <200 mg/dL [facility] HDL 66 > OR = 40 mg/dL [facility] TRIGLYCERIDES 134 <150 mg/dL [facility] LDL (CALCULATED) 108(H) mg/dL (calc) [facility] Comment: Reference [...] LDL-C. Sergey SOTO et al. MAKENZIE. 2013;310(19): 7462-4870 (http://education.Tech Cocktail/faq/OJZ501) CHOL/HDL RATIO 3.0 <5.0 (calc) [facility] NON HDL CHOLESTEROL 133(H) <130 mg/dL (calc) [facility] Comment: For patients with diabetes plus 1 major ASCVD risk factor, treating to a non-HDL-C goal of <100 mg/dL (LDL-C of <70 mg/dL) is considered a therapeutic option. 08/31/2021 9:25 AM WHOLESALE BUYER 08/31/2021 9:27 AM WHOLESALE BUYER Narrative [facility] - 09/04/2021 12:38 PM CDT FASTING:YES FASTING: YES Mick Flowers MD LABORATORY Final Result [facility] [facility] [address] [address] [phone] * CBC W/DIFF AUTOMATED (08/31/2021 9:25 AM WHOLESALE BUYER) Pathologist [facility] WBC 3.9 3.8 - 10.8 Thousand/u L [facility] RBC 4.96 4.20 - 5.80 Million/uL [facility] HGB 15.1 13.2 - 17.1 g/dL [facility] HCT 44.6 38.5 - 50.0 % [facility] MCV 89.9 80.0 - 100.0 fL [facility] MCH 30.4 27.0 - 33.0 pg [facility] MCHC 33.9 32.0 - 36.0 g/dL [facility] RDW 12.6 11.0 - 15.0 % [facility] PLT 220 140 - 400 Thousand/u L [facility] MPV 10.9 7.5 - 12.5 fL [facility] ABS. NEUTROPHILS 2,040 1,500 - 7,800 cells/uL [facility] ABS. LYMPHOCYTES 1,205 850 - 3,900 cells/uL [facility] ABS. MONOCYTES 394 200 - 950 cells/uL [facility] ABS. EOSINOPHILS 242 15 - 500 cells/uL [facility] ABS. BASOPHILS 20 0 - 200 cells/uL [facility] SEG NEUTROPHILS 52.3 % [facility] LYMPHOCYTES 30.9 % [facility] MONOCYTES 10.1 % [facility] EOSINOPHILS 6.2 % [facility] BASOPHILS 0.5 % [facility] 08/31/2021 9:25 AM WHOLESALE BUYER 08/31/2021 9:27 AM WHOLESALE BUYER Narrative [facility] - 09/04/2021 12:38 PM CDT FASTING:YES FASTING: YES Mick Flowers MD LABORATORY Final Result [facility] [facility] [address] [place] [phone] documented in this encounter Visit Diagnoses Diagnosis Routine general medical examination at a health care facility- Primary Benign essential hypertension Essential hypertension, benign Mixed hyperlipidemia Vitamin D deficiency Unspecified vitamin D deficiency Screening for prostate cancer Special screening for malignant neoplasm of prostate documented in this encounter Additional Health Concerns Assessment Noted Time PHQ-9 Depression Total Score: 0 04/28/20 21 11:07 AM CDT documented as of this encounter Care Teams Front End Software Developer Relationship Specialty Start Date End Date Mick Flowers MD [address] [place] [address] PCP - General 10/15/14 documented as of this encounter
--- OUTSIDE RECORDS SUMMARY | 2024-06-29 00:11 | XMS_ITS | Encounter Summary ---
Author Organization [facility] System Address [address] [place] [address]. [place], [place] [id number] [place] [address] Care Team Providers Care Compensation Coordinator Name Role Phone Jose Flowers MD Primary Care Provider Reason for Visit * Reason Comments Abdominal Pain pt is here for stoma ch pain/bloating, last colonoscopy about 10 years ago-normal per pt and had a negative cologuard 2016 GERD pt takes prilosec wh en needed Constipation and diarrhea on and off * Consultation/Treatment (Routine) - Closed Specialty Diagnoses / Procedures Referred By Contac t Referred To Contact GASTROENTEROLOGY Diagnoses stomach issues Procedures Jose Flowers MD [address] [place] [address] Phone: tel: fax: [facility] - [address], [address] [place] [address] Phone: tel: fax: Referral ID Status Reason Start Date Expiration Date Visits Re quested Visits Authorized [id number] Closed 09/29/2020 12/26/2021 100 100 Encounter Details Date Type Department Care Team (Latest Contact Info) Description 09/29/2020 9:00 AM CDT [facility] [address], [address] [place] [address] Lindsay Bess NP [address] [place] [address] [address] [place] [address] Abdominal Pain (pt is here for stomach pain/bloating, last colonoscopy about 10 years ago-normal per pt and had a negative cologuard 2016); GERD (pt takes prilosec when needed); Constipation (and diarrhea on and off) Social History Tobacco Use Types Packs/Day Years [...] Sign Reading Time Taken Comments Blood Pressure 134/78 09/29/2020 8:51 AM CDT Pulse 74 09/29/2020 8:51 AM CDT Temperature 36.7 ??C (98 ??F) 09/29/2020 8:51 AM CDT Respiratory Rate 18 09/29/2020 8:51 AM CDT Oxygen Saturation 97% 09/29/2020 8:51 AM CDT Inhaled Oxygen Concentration - - Weight 83.3 kg (183 lb 9.6 oz) 09/29/2020 8:51 A M CDT Height 177.8 cm (5' 10 ) 09/29/2020 8:51 AM CDT Body Mass Index 26.34 09/29/2020 8:51 AM CDT documented in this encounter Progress Notes * Lindsay Bess NP - 09/29/2020 9:00 AM CDT Images from the original note were not included. Gastroenterology Initial Visit Reason for Visit: Abdominal Pain (pt is here for stomach pain/bloating, last colonoscopy about 10 years ago-normal per pt and had a negative cologuard 2016), GERD (pt takes prilosec when needed), and Constipation (anddiarrhea on and off) History of Present Illness: Doc Emery is a 55-year-old male being seen in clinic for referral by JOSE FLOWERS MD for stomach issues. Notes MS diagnosed 31 years ago and take no medication for this and has been stable except slight increase in his noted lesions in brain. He does on demand self cath every day. History of constipation but has changed in past few months. Soreness in intestine area especiallyin lower abdomen. Tried IBgard and made it worse. Started probiotics a month ago and unsure if it helps. Severe gut pain with diarrhea which relieves pain following first meal of day. Some gut pain daily. No diarrhea in 1 week however. Now impacting travel. Explosive diarrhea once a week on averagelately. Alternates between constipation or diarrhea, no hematochezia or melena. No weight loss. Prilosec 10 mg PRN using 1-2 times per week for dyspepsia. No nausea, vomiting, dysphagia, + lower abdominal pain, random heart burn or acid reflux. Appropriate appetite. No pain or symptoms at night. Prior abdominal surgeries: none. No EGDs in the past. Cologuard more than 3 years ago and negative.Colonoscopy more than 10 yrs ago and was normal per pt recall. No prior h/o hepatitis, no prior tattoos, no prior blood transfusions, no drug use, + 7 bourbons drinks per week ETOH use, and + marijuana gummies 10mg nightly a week smoking for spasticity from MS and sleep x 6 mos. No family history of GI/Colon Cancer. NSAID/Blood thinner use: None ROS: Review of Systems Constitutional: Negative for chills, fever and malaise/fatigue. Negative for decreased appetite HENT: Negative for sore throat. Eyes: Glasses and contacts Respiratory: Negative for shortness of breath. Cardiovascular: Negative for chest pain and leg swelling. Gastrointestinal: Refer to HPI. Musculoskeletal: Negative for joint pain. Neurological: Positive for focal weakness (Rt leg drag due to MS). Multiple sclerosis x 31 yrs and does not take medication at this time. Symptoms stable for 31 year.Lesions in brain increased. Last MRI 2 yrs ago. Endo/Heme/Allergies: Does not bruise/bleed easily. Psychiatric/Behavioral: Negative for depression. The patient is not nervous/anxious. Medications: Current Outpatient Medications: ??? ALPRAZolam 0.5 MG tablet, TAKE 1 TABLET(0.5 MG) BY MOUTH THREE TIMES DAILY NEEDED, Disp: 60 tablet, Rfl: 3 ??? Alprostadil, Vasodilator, (EDEX) 20 MCG Kit, 1 mL by Intracavernosal route as needed. 10-30 minutes prior to intercourse, Disp: 30 kit, Rfl: 0 ??? atorvastatin 40 MG tablet, Take 1 tablet (40 mg total) by mouth nightly at bedtime., Disp: 90 tablet, Rfl: 3 ??? baclofen 10 MG tablet, Take 10 mg by mouth 3 (three) times daily. Indications: Multiple Sclerosis, Disp: , Rfl: ??? felodipine ER 5 MG 24 hr tablet, Take 1 tablet (5 mg total) by mouth daily., Disp: 90 tablet, Rfl: 3 ??? HYDROCHLOROTHIAZIDE 25 MG tablet, TAKE 1 TABLET(25 MG) BY MOUTH EVERY MORNING, Disp: 90 tablet,Rfl: 3 ??? INSULIN SYRINGE .5CC/28G (B-D INS SYR MICROFINE .5CC/28G) 28G X 1/2 0.5 ML Misc, , Disp: , Rfl: ??? LOSARTAN 100 MG tablet, TAKE 1 TABLET(100 MG) BY MOUTH DAILY, Disp: 90 tablet, Rfl: 3 ??? MILK THISTLE OR, , Disp: , Rfl: ??? Na sulfate-K sulfate-Mg sulfate (SUPREP BOWEL PREP KIT) 17.5-3.13-1.6 GM/177ML Solution, Take 177 mLs by mouth every 12 (twelve) hours. Take as directed by instruction sheet., Disp: 354 mL, Rfl: 0 ??? OnabotulinumtoxinA (BOTOX IJ), Inject as directed every 6 (six) months. Indications: OveractiveBladder, Disp: , Rfl: ??? potassium chloride CR 20 MEQ Tab CR tablet, Take 1 tablet by mouth daily., Disp: 90 tablet, Rfl: 3 ??? probiotic capsule, Take 1 capsule by mouth daily., Disp: , Rfl: ??? urea 40 % Cream, APPLY AND RUB IN A THIN FILM TO AFFECTED AREA(S) DAILY., Disp: 198.4 g, Rfl: 5 ??? vitamin D3, cholecalciferol, (VITAMIN D-3) 10 MCG (400 UNIT) tablet, Take 400 Units by mouth daily., Disp: , Rfl: ??? omeprazole EC 20 MG tablet, Take 1 tablet (20 mg total) by mouth daily., Disp: 30 tablet, Rfl: 1 Allergies: No Known Allergies Medical History: Past Medical History: Diagnosis Date ??? Anxiety ??? Erectile dysfunction ??? Herpes zoster ??? Hyperlipidemia ??? Hypertension ??? Multiple sclerosis (CMS/HCC) ??? S/P Botox injection in bladder every 6 months Surgical History: Past Surgical History: Procedure Laterality Date ??? BLADDER SURGERY ??? COLONOSCOPY 2011 normal per pt Social History: Social History Tobacco Use ??? Smoking status: Never Smoker ??? Smokeless tobacco: Never Used Substance Use Topics ??? Alcohol use: Yes Frequency: 4 or more times a week Drinks per session: 3 or 4 Binge frequency: Weekly ??? Drug use: Yes Frequency: 4.0 times per week Types: Marijuana Family History: Family History Problem Relation Name Age of Onset ??? Cancer Mother ??? Hypertension Father ??? Cancer Father PE: Filed Vitals: 09/29/20 0851 BP: 134/78 Pulse: 74 Resp: 18 Temp: 98 ??F (36.7 ??C) TempSrc: Temporal SpO2: 97% Weight: 83.3 kg (183 lb 9.6 oz) Height: 5' 10 (1.778 m) Physical Exam Constitutional: General: He is not in acute distress. Appearance: Normal appearance. He is well-developed. He is not ill-appearing. Eyes: Comments: Wears glasses Cardiovascular: Rate and Rhythm: Normal rate and regular rhythm. Pulmonary: Effort: Pulmonary effort is normal. Breath sounds: Normal breath sounds. Abdominal: General: Abdomen is flat. Bowel sounds are normal. There is no distension. Palpations: Abdomen is soft. There is no mass. Tenderness: There is abdominal tenderness (LLQ pain with deep palpation). There is no guarding or rebound. Hernia: No hernia is present. Musculoskeletal: Right lower leg: No edema. Left lower leg: No edema. Skin: General: Skin is warm and dry. Neurological: General: No focal deficit present. Mental Status: He is alert and oriented to person, place, and time. Psychiatric: Mood and Affect: Mood normal. Behavior: Behavior normal. Labs Reviewed: Lab Results Component Value Date WBC 3.9 08/23/2020 RBC 4.88 08/23/2020 HGB 15.6 08/23/2020 HCT 44.5 08/23/2020 RDW 13.0 08/23/2020 PLT 216 08/23/2020 NA 138 08/23/2020 K 4.1 08/23/2020 CL 103 08/23/2020 AGAP 13 08/07/2013 GLU 88 08/23/2020 BUN 8 08/23/2020 CR 0.79 08/23/2020 GFRNON 101 08/23/2020 GFR 117 08/23/2020 CA 9.8 08/23/2020 ALB 4.8 08/23/2020 ALT 33 08/23/2020 AST 21 08/23/2020 ALKP 95 08/23/2020 Endoscopic Results Reviewed: Colonoscopy about 10 plus years ago and pt recalls negative Diagnoses/Impression: Gastroesophageal reflux disease, unspecified whether esophagitis present (primary encounter diagnosis) Lower abdominal pain Change in bowel habit 1. GERD: with heartburn, dyspepsia, pt has used prilosec 20 mg PRN 2 times a week and did help withdyspepsia. Will have pt use daily for 1-2 mos and see if this will relieve upper and fecal urgency if acid triggering event. If no improvement may consider famotidine at night as most of symptoms arein morning. 2. Change in bowel habit: pt notes he has been having more diarrhea explosive post prandially with first meal of day in the last few mos. Lower abdominal pain prior to defecation then is resolved. Possible IBS or acid induced urgency and pain. History of constipation prior to this for many years. Discussed dicyclomine as an option for urgency but will wait and see the prilosec is beneficial first. May continue probiotics if pt feels is helpful. 3. Comorbid Conditions: Multiple sclerosis, hyperlipidemia, hypertension, anxiety, erectile dysfunction, insomni Recommendations and Plan: ?? Schedule diagnostic EGD and colonoscopy due to change in bowel habits, lower abdominal pain, GERD ?? Self caths due to MS ?? It is recommended to consume 20-35 grams of fiber per day and at least 64 ounces/2 liters of water per day. ?? All questions answered ?? Telephone follow up in 2 weeks to see how prilosec is doing for GERD and fecal urgency. If no improvement may add famotidine at HS and/or dicyclomine PRN. ?? More recommendations to follow endoscopic evaluation ?? 1 week post EGD and Colonoscopy result follow up visit. Orders placed this encounter: Orders Placed This Encounter ??? MILK THISTLE OR ??? vitamin D3, cholecalciferol, (VITAMIN D-3) 10 MCG (400 UNIT) tablet ??? probiotic capsule ??? DISCONTD: omeprazole EC 20 MG tablet ??? omeprazole EC 20 MG tablet ??? Na sulfate-K sulfate-Mg sulfate (SUPREP BOWEL PREP KIT) 17.5-3.13-1.6 GM/177ML Solution Risks/Benefits/Options: Patient presented with risks (can include but are not limited to: discomfort, missing lesions, allergic or adverse reaction to the sedation, perforation of the bowel or upper GI tract which may require hospitalization and surgery, bleeding, infection, aspiration), benefits, and alternatives to the procedure(s) and are in agreement to proceed as planned. Lindsay Bess NP 09/29/2020 documented in this encounter Plan of Treatment Upcoming Encounters Date Type Department Care Team (Late st Contact Info) Description 09/09/2024 10:00 AM CDT Office Visit [facility] Family & Internal Medicine - [place] [address] [place] [phone] Jose Flowers MD [address] [place] [address] documented as of this encounter Visit Diagnoses Diagnosis Gastroesophageal reflux disease, unspecified whether esophagitis present- Primary Lower abdominal pain Abdominal pain, other specified site Change in bowel habit documented in this encounter Care Teams Compensation Coordinator Relationship Specialty Start Date End Date Jose Flowers MD [address] [place] [address] PCP - General 10/15/14 documented as of this encounter
--- OUTSIDE RECORDS SUMMARY | 2024-06-29 00:11 | XMS_ITS | Encounter Summary ---
Author Organization [facility] Address [address] [place] [address]. [place], [place] [address] [place] [address] Care Team Providers Care Director Compensation Name Role Phone Mick Flowers MD Primary Care Provider [phone] Encounter Details Date Type Department Care Team (Latest Contact Info) Description 11/08/2020 Travel Social History Tobacco Use Types Packs/Day Years Used Date Smoking Tobacco: Never Smokeless Tobacco: Never Alcohol Use Standard Drinks/Week Comments Yes 0 (1 standard drink = 0.6 oz pur e alcohol) [place] 4 oz every night AUDIT-C Answer Date [...] Description 09/09/2024 10:00 AM CDT Office Visit [facility] Family & Internal Medicine - [address] [address] Mick Flowers MD [address] [place] [address] documented as of this encounter Visit Diagnoses Not on filedocumented in this encounter Care Teams Director Compensation Relationship Specialty Start Date End Date Mick Flowers MD [address] [place] [address] PCP - General 10/15/14 documented as of this encounter
--- OUTSIDE RECORDS SUMMARY | 2024-06-29 00:11 | XMS_ITS | Encounter Summary ---
Author Organization [facility] Address [address] [place] [address]. [place], [place] [address] [place] [address] Care Team Providers Care Photographic Technician Name Role Phone Mick Flowers MD Primary Care Provider [phone] Encounter Details Date Type Department Care Team (Latest Contact Info) Description 04/04/2021 Scan HEALTH INFO SRVCS Scanned, Documents Social History Tobacco Use Types Packs/Day Years Used Date Smoking Tobacco: Never Smokeless Tobacco: Never Alcohol Use Standard Drinks/Week Comments Yes 0 (1 standard drink = 0.6 oz pur e alcohol) [place] 4 oz every night AUDIT-C Answer Date [...] [facility] - [address] [address] Mick Flowers MD [address] [place] [address] documented as of this encounter Visit Diagnoses Not on filedocumented in this encounter Care Teams Photographic Technician Relationship Specialty Start Date End Date Mick Flowers MD [address] [place] [address] PCP - General 10/15/14 documented as of this encounter
--- OUTSIDE RECORDS SUMMARY | 2024-06-29 00:11 | XMS_ITS | Encounter Summary ---
Author Organization [facility] Address [address] [place] [address]. [place], [place] [address] [place] [address] Care Team Providers Care Primary Care Md Name Role Phone Mick Flowers MD Primary Care Provider [phone] Reason for Visit * Auth/Cert Specialty Diagnoses / Procedures Referred By Christy t Referred To Contact Diagnoses Gastroesophageal reflux disease, unspecified whether esophagitis present Lower abdominal pain Change in bowel habit Diarrhea GERD, change in bowel habits, diarrhea abdominal pain Procedures UPPER GI ENDOSCOPY,DIAGNOSIS COLONOSCOPY,DIAGNOSTIC EGD COLONOSCOPY Referral ID Status Reason Start Date Expiration Date Visits Re quested Visits Authorized [id number] 1 1 Encounter Details Date Type Department Care Team (Latest Contact Info) Description 11/08/2020 9:24 AM CDT - 11/08/2020 2:44 PM [facility] Hospital Encounter [facility] [place] [address] Patricia Myers MD [address] [address] Discharge Disposition: Home or Self Care (Routine Discharge) Social History Tobacco Use Types Packs/Day Years Used Date Smoking Tobacco: Never Smokeless Tobacco: Never Alcohol Use Standard Drinks/Week Comments Yes 0 (1 standard drink = 0.6 oz pur e alcohol) [place] 4 oz every night AUDIT-C Answer Date [...] Sign Reading Time Taken Comments Blood Pressure 139/83 11/08/2020 2:28 PM CDT Pulse 55 11/08/2020 2:28 PM CDT Temperature 35.6 ??C (96.1 ??F) 11/08/2020 1:57 PM CD T Respiratory Rate 18 11/08/2020 2:28 PM CDT Oxygen Saturation 100% 11/08/2020 2:28 PM CDT Inhaled Oxygen Concentration - - Weight 81.6 [...] and blood flow The doctor or nurse ground support agent gives general anesthesia by a shot into [...] dizziness. Where can I learn more? National [employer] of General Medical Sciences https://www.nigms.nih.gov/education/pages/factsheet_Anesthesia.aspx NHS Choices [...] right for you. Copyright Copyright ?? 2020 [employer]. and its affiliates and/or licensors. All rights [...] and swollen. Where can I learn more? [place] [employer] Association https://www.gastro.org/practice-guidance/sw-evgzuuf-ejqydb/topic/tfeic-du-yudgzq op International Foundation for Gastrointestinal Disorders https://www.iffgd.org/tests-diagnosis/suoiv-wg-rmyjcrrva.html National [place] of Diabetes and Digestive and Kidney Diseases https://www.niddk.nih.gov/health-information/diagnostic-tests/nyhbw-rq-lewrhiaxn Last Reviewed Date 2019-04-28 Consumer Information Use [...] right for you. Copyright Copyright ?? 2020 [employer]. and its affiliates and/or licensors. All rights [...] belly pain. Where can I learn more? [place] [employer] Society https://www.cancer.org/cancer/wcmht-abpyvz-lxmnzy/ixokpxcwv-azhuqbzyb-bxdykis/sc hfvgkpd-rbkzx-lhmx.html [place] Society of Clinical Oncology https://www.cancer.net/vlzcnfgjlu-jusytm-jwhm/diagnosing-cancer/xnkwu-sim-jvmmvm ures/colonoscopy National Digestive Diseases Information Clearinghouse http://digestive.niddk.nih.gov/ddiseases/pubs/colonoscopy/ [...] right for you. Copyright Copyright ?? 2020 [employer]. and its affiliates and/or licensors. All rights [...] SYRINGE .5CC/28G) 28G X 1/2 0.5 ML [facility] 5 08/30/19 23 LOSARTAN 100 MG tabletIndications:B [...] Sexual Activity ??? Alcohol use: Yes Comment: [place] 4 oz every night ??? Drug use: [...] Gatherings with Friends and Family: ??? Attends Druze Services: ??? Active Member of Clubs or [...] Pre / Post-Op Nurse: Kanchan Harper RN assembler hydraulic backhoe: Denise Farris CNA Anesthesia: General Anesthesiologist: Meek Kilpatrick MD MANAGER OF PROGRAM: Candice Gotti CRNA Pre-Op Diagnosis: GERD, change [...] 10:00 AM CDT Office Visit [facility] Family & Internal Medicine [facility] [address] [place] [address] Mick Flowers MD [address] [place] [address] documented as of this encounter Procedures Procedure [...] Pathology (11/08/2020 12:00 AM CDT) COPATH REPORT ?[facility] ? [address] [facility]. ? [place], [place] ??[address] ? [phone] ? Department of Pathology ? Pathology Report ? SURGICAL FINAL REPORT Patient Name: MARITA EMERY ? : 1965 (Age: 55) ?Location: [facility] Gender: M ?Collected Date: 11/08/2020 Med Rec #: [id number] ?Date Received: 11/08/2020 Date Reported: 11/09/2020 Provider: PATRICIA MYERS MD ?MICK FLOWERS MD Specimen(s) A: Polyps, gastric B: Polyp, descending colon Final Pathologic Diagnosis A. ??GASTRIC POLYPS, BIOPSY: ? - FUNDIC GLAND POLYPS ? - NO H. PYLORI ORGANISMS (IHC) B. ??DESCENDING COLON POLYP, BIOPSY: ? - TUBULAR ADENOMA, NO HIGH GRADE DYSPLASIA Electronically Signed Out ? PATRICK HOLGUIN Pathologist [facility]: Microscopic Description: Sections of the gastric polyps [...] developed and the performance characteristics determined by [employer], [place], [place], [place], [employer] [place], [place] and/or [employer], [place], [place]. ??They have not been cleared [...] cassette B1. ?? : Billing Fee Code(s): 14952(2), 17574 [facility] Tissue specimen (specimen) GASTRIC BIOPSY SPECIMEN / Unknown 11/08/2020 1:21 PM CDT Tissue specimen (specimen) COLON STRUCTURE / Unknown 11/08/2020 1:41 PM CDT us Patricia Myers MD PATHOLOGY/CYTOLOGY ORDERABLES Fi nal Result [facility] [address] [place] [address], documented in this encounter Visit Diagnoses Diagnosis [...] CRNA) documented in this encounter Care Teams Primary Care Md Relationship Specialty Start Date End Date Mick Flowers MD [address] [place] [address] PCP - General 10/15/14 documented as of this encounter
--- OUTSIDE RECORDS SUMMARY | 2024-06-29 00:12 | XMS_ITS | Encounter Summary ---
Author Organization [facility] Address [address] [place] [address]. [place], [place] [phone] [place] [address] Care Team Providers Care Chemistry Teacher Name Role Phone Mick Flowers MD Primary Care Provider [phone] Reason for Visit * Reason Onset Date Comments Lab Order 08/26/2018 Encounter Details Date Type Department Care Team (Late st Contact Info) Description 08/26/2018 Telephone [facility] Family & Internal Medicine [facility] [address] [place] [address] Mick Flowers MD [address] [place], [place] [id number] Lab Order Social History Tobacco Use Types Packs/Day Years Used Date Smoking Tobacco: Never Sex and Gender Information Value Date Recorded Sex Assigned at Male 10/07/2018 11:33 AM CDT Legal Sex Male 9:27 PM CDT Gender Identity Male 10/07/2018 11:33 AM CDT Sexual Orientation Straight 10/07/2018 11 :33 AM CDT documented as of this encounter Progress Notes * Belia Quijano RN - 08/27/2018 10:27 AM CST Labs printed [employer] * Mick Flowers MD - 08/26/2018 4:43 PM CST Yearly male PE labs with PSA [employer] * Kanchan Zuñiga MA - 08/26/2018 1:48 PM CST What would you like ordered? [employer] [facility] * Veronica Joiner - 08/26/2018 12:44 PM CST Pt would like routine labs ordered for his appt on 10/07. He would like them mailed to him so he cango to quest [facility] documented in this encounter Plan of Treatment Upcoming Encounters Date Type Department Care Team (Late st Contact Info) Description 09/09/2024 10:00 AM CDT Office Visit [facility] Family & Internal Medicine - [address] [phone] Mick Flowers MD [address] [place] [address] documented as of this encounter Visit Diagnoses Diagnosis Healthcare maintenance- Primary Routine general medical examination at a health care facility documented in this encounter Care Teams Chemistry Teacher Relationship Specialty Start Date End Date Mick Flowers MD [address] [place] [address] PCP - General 10/15/14 documented as of this encounter
--- OUTSIDE RECORDS SUMMARY | 2024-06-29 00:12 | XMS_ITS | Encounter Summary ---
Author Organization [facility] Address [address] [place] [address]. [place], [place] [address] [place] [address] Care Team Providers Care Events Traffic Controller Name Role Phone Mick Flowers MD Primary Care Provider [phone] Reason for Visit * Reason Onset Date Comments Lab Results 08/30/2020 Encounter Details Date Type Department Care Team (Late st Contact Info) Description 08/30/2020 Telephone [facility] Family & Internal Medicine [facility] [address] [place] [address] Mick Flowers MD [address] [place], [place] [id number] Lab Results Social History Tobacco Use Types [...] Progress Notes * Mick Flowers MD - 09/09/2020 9:51 AM CDT Cholesterol improved will follow * Josi Hassan MA - 09/01/2020 3:02 PM CST Patient contacted and states he spoke with his insurance company and they said to code as routine preventative. Order done and faxed to [facility] [place] RN * Mick Flowers MD - 09/01/2020 1:27 PM CST Okay to recheck lipids fasting RN * Gela Solo MA - 08/30/2020 8:25 AM CST Patient was calling into office, he saw lab results on [place]. He notes that cholesterol is elevated, patient reports being up late celebrating the night before past midnight and also forgot he needed to fast for labs and drank coffee with creamer and sugar. Patient is wondering if he can repeat the labs and prep properly for them and disregard these level. # [phone] (Patient aware Dr. Flowers out of office until Sunday) RN documented in this encounter Plan of Treatment Upcoming Encounters Date Type Department Care Team (Late st Contact Info) Description 09/09/2024 10:00 AM CDT Office Visit [facility] Family & Internal Medicine - [place] [address] [place] [address] Mick Flowers MD [address] [place] [address] documented as of this encounter Procedures Procedure Name Priority Date/Time Associated Diagnosis Comments LIPID PANEL Routine 09/08/2020 8:37 AM CDT Screening cholesterol level documented in this encounter Results * (ABNORMAL) LIPID PANEL (09/08/2020 8:37 AM CDT) CHOLESTEROL 185 <200 mg/dL [facility] HDL 61 > OR = 40 mg/dL [facility] TRIGLYCERIDES 127 <150 mg/dL [facility] LDL (CALCULATED) 102(H) mg/dL (calc) [facility] Comment: Reference [...] LDL-C. Sergey SS et al. MAKENZIE. 2013;310(19): 4615-6040 (http://education.[employer]/faq/ZTO899) CHOL/HDL RATIO 3.0 <5.0 (calc) [facility] NON HDL CHOLESTEROL 124 <130 mg/dL (calc) [facility] Comment: For patients with diabetes plus 1 major ASCVD risk factor, treating to a non-HDL-C goal of <100 mg/dL (LDL-C of <70 mg/dL) is considered a therapeutic option. 09/08/2020 8:37 AM CDT 09/08/2020 8:38 AM CDT Narrative [facility] - 09/09/2020 2:23 AM CDT FASTING:YES FASTING: YES us Mick Flowers MD LABORATORY Final Result [facility] [address] [place] [id number] documented in this encounter Visit Diagnoses Diagnosis Screening cholesterol level- Primary Screening for lipoid disorders documented in this encounter Care Teams Events Traffic Controller Relationship Specialty Start Date End Date Mick Flowers MD [address] [place] [address] PCP - General 10/15/14 documented as of this encounter
--- OUTSIDE RECORDS SUMMARY | 2024-06-29 00:12 | XMS_ITS | Encounter Summary ---
Author Organization [facility] Address [address] [address]. [place], [place] [address] [place] [address] Care Team Providers Care Clinical Services Assistant Name Role Phone Mick Flowers MD Primary Care Provider [phone] Encounter Details Date Type Department Care Team (Latest Contact Info) Description 11/26/2017 Abstract [facility] , Generic ConversionMD Social History Tobacco Use Types Packs/Day Years Used Date Smoking Tobacco: Never Sex and Gender Information Value Date Recorded Sex Assigned at Male 10/07/2018 11:33 AM CDT Legal Sex Male 9:27 PM CDT Gender Identity Male 10/07/2018 11:33 AM CDT Sexual Orientation Straight 10/07/2018 11 :33 AM CDT documented as of this encounter Progress Notes * Generic Conversion MD Denise - 11/26/2017 9:18 AM CDT Message Recorded as Task Date: 11/23/2017 03:44 PM, Created By: System Task Name: Rx Renew Request Assigned To: [facility] Team Kristie Regarding Patient: Marita Emery, Status: In Progress Comment: System - 23 Nov 2017 3:44 PM PHARMACY: [facility] PATIENT: MARITA EMERY MEDICATION: ALPRAZOLAM 0.5MG TABLETS Simona Gutierres - 25 Nov 2017 1:36 PM TASK REASSIGNED: Previously Assigned To Simona Gutierres Jenee - 26 Nov 2017 9:17 AM TASK IN PROGRESS Abbie Medina - 26 Nov 2017 9:20 AM TASK EDITED rx called to pharmacy Plan 1. ALPRAZolam 0.5 MG Oral Tablet; TAKE 1 TABLET BY MOUTH THREE TIMES DAILY NEEDED Rx By: Mick Flowers; Dispense: 10 Days ; #:30 Tablet; Refill: 0; For: Anxiety; KYLE = N; Call Rx;Msg to Pharmacy: [phone]; Last Updated By: Abbie Medina; 11/26/2017 9:20:19 AM Signatures Electronically signed by : Abbie Medina, ; Nov 26 2017 9:20AM SAFETY MANAGER (Author) documented in this encounter Plan of Treatment Upcoming Encounters Date Type Department Care Team (Late st Contact Info) Description 09/09/2024 10:00 AM CDT Office Visit [facility] Family & Internal Medicine [address] [phone] Mick Flowers MD [address] [place] [address] documented as of this encounter Visit Diagnoses Not on filedocumented in this encounter Care Teams Clinical Services Assistant Relationship Specialty Start Date End Date Mick Flowers MD [address] [place] [address] PCP - General 10/15/14 documented as of this encounter
--- OUTSIDE RECORDS SUMMARY | 2024-06-29 00:12 | XMS_ITS | Encounter Summary ---
Author Organization [facility] Address [address] [place] [address]. [place], [place] [address] [place] [address] Care Team Providers Care Copy Reader Name Role Phone Mick Flowers MD Primary Care Provider [phone] Reason for Visit * Reason Comments Lab (SCAN) Encounter Details Date Type Department Care Team (Latest Contact Info) Description 03/15/2020 Scan [facility] Scanned, Documents Lab (SCAN) Social History Tobacco Use Types Packs/Day [...] have Coronavirus / COVID-19? No / Unsure 04/12/2020 11:01 AM CDT documented as of this encounter Plan of Treatment Upcoming Encounters Date Type Department Care Team ( Contact Info) Description 09/09/2024 10:00 AM CDT Office Visit [facility] Family & Internal Medicine [address] [address] Mick Flowers MD [address] [place] [address] documented as of this encounter Procedures Procedure Name Priority Date/Time Associated Diagnosis Comments OUTSIDE LAB (SCAN ORDER) 03/15/2020 OUTSIDE LAB (SCAN ORDER) 03/15/2020 documented in this encounter Results * OUTSIDE LAB (SCAN) (03/15/2020) 03/15/2020 Narrative 03/15/2020 Ordered by an unspecified provider. us Documents Scanned SCANNING Final Result * OUTSIDE LAB (SCAN) (03/15/2020) 03/15/2020 Narrative 03/15/2020 Ordered by an unspecified provider. us Documents Scanned SCANNING Final Result documented in this encounter Visit Diagnoses Not on filedocumented in this encounter Care Teams Copy Reader Relationship Specialty Start Date End Date Mick Flowers MD [address] [place] [address] PCP - General 10/15/14 documented as of this encounter
--- OUTSIDE RECORDS SUMMARY | 2024-06-29 00:12 | XMS_ITS | Encounter Summary ---
Author Organization [facility] Address [address] [place] [address]. [place], [place] [address] [place] [address] Care Team Providers Care Plant And Equipment Worker Name Role Phone Mick Flowers MD Primary Care Provider [phone] Reason for Visit * Reason Onset Date Comments Results 09/11/2018 Encounter Details Date Type Department Care Team (Late st Contact Info) Description 09/11/2018 Telephone [facility] Family & Internal Medicine [facility] [address] [place] [address] Mick Flowers MD [address] [place], [place] [phone] Results Social History Tobacco Use Types Packs/Day Years Used Date Smoking Tobacco: Never Sex and Gender Information Value Date Recorded Sex Assigned at Male 10/07/2018 11:33 AM CDT Legal Sex Male 9:27 PM CDT Gender Identity Male 10/07/2018 11:33 AM CDT Sexual Orientation Straight 10/07/2018 11 :33 AM CDT documented as of this encounter Progress Notes * Kanchan Zuñiga MA - 09/11/2018 8:43 AM CDT Patient notified -sjs * Kanchan Zuñiga MA - 09/11/2018 8:43 AM CDT ----- Message from Mick Flowers MD sent at 09/10/2018 8:52 PM CDT ----- PSA is good. documented in this encounter Plan of Treatment Upcoming Encounters Date Type Department Care Team (Late st Contact Info) Description 09/09/2024 10:00 AM CDT Office Visit [facility] Family & Internal Medicine - [address] [phone] Mick Flowers MD [address] [place] [address] documented as of this encounter Visit Diagnoses Not on filedocumented in this encounter Care Teams Plant And Equipment Worker Relationship Specialty Start Date End Date Mick Flowers MD [address] [place] [address] PCP - General 10/15/14 documented as of this encounter
--- OUTSIDE RECORDS SUMMARY | 2024-06-29 00:12 | XMS_ITS | Encounter Summary ---
Author Organization [facility] Address [address] [place] [address]. [place], [place] [address] [place] [address] Care Team Providers Care Chart Clerk Name Role Phone Mick Flowers MD Primary Care Provider [phone] Encounter Details Date Type Department Care Team (Latest Contact Info) Description 04/23/2018 Abstract [facility] , Generic ConversionMD Social History [...] Notes * Generic Conversion MD Denise - 04/23/2018 1:17 PM CDT Message Recorded as Task Date: 04/23/2018 10:39 AM, Created By: Abbie Medina Task Name: Medical Complaint Callback Assigned To: [facility] Team Kristie Regarding Patient: Doc Emery, Status: In Progress Comment: Abbie Medina 23 Apr 2018 10:39 AM TASK CREATED Talia requesting refill of alprazolam 0.5mg. Ok to refill^2 See RX request Mick Flowers - 23 Apr 2018 11:53 AM TASK REASSIGNED: Previously Assigned To Mick Flowers for refill. Abbie Medina 23 Apr 2018 12:32 PM TASK IN PROGRESS Abbie Medina 23 Apr 2018 1:19 PM TASK EDITED rx called into pharmacy Plan 1. ALPRAZolam 0.5 MG Oral Tablet; TAKE 1 TABLET BY MOUTH THREE TIMES DAILY NEEDED Rx By: Mick Flowers; Dispense: 10 Days ; #:30 Tablet; Refill: 0; For: Anxiety; KYLE = N; Call Rx;Msg to Pharmacy: [phone]; Last Updated By: Abbie Medina; 04/23/2018 1:19:19 PM Signatures Electronically signed by : Abbie Medina, ; Apr 23 2018 1:19PM CHICK SEXER (Author) K SEXER documented in this encounter Plan of Treatment Upcoming Encounters Date Type Department Care Team (Late st Contact Info) Description 09/09/2024 10:00 AM CDT Office Visit [facility] Family & Internal Medicine - [address] [phone] Mick Flowers MD [address] [place] [address] documented as of this encounter Visit Diagnoses Not on filedocumented in this encounter Care Teams Chart Clerk Relationship Specialty Start Date End Date Mick Flowers MD [address] [place] [address] PCP - General 10/15/14 documented as of this encounter
--- OUTSIDE RECORDS SUMMARY | 2024-06-29 00:12 | XMS_ITS | Encounter Summary ---
Author Organization [facility] Address [address] [place] [address]. [place], [place] [address] [place] [address] Care Team Providers Care Vial Gauger Name Role Phone Mick Flowers MD Primary Care Provider [phone] Reason for Visit * Reason Comments Follow Up Anxiety Hypertension Hyperlipidemia Multiple Sclerosis Encounter Details Date Type Department Care Team (Late st Contact Info) Description 04/12/2020 11:20 AM CDT Office Visit [facility] Family & Internal Medicine [address] [address] Mick Flowers MD [address] [place] [phone] Follow Up; Anxiety; Hypertension; Hyperlipidemia; Multiple Sclerosis Social History Tobacco Use Types Packs/Day Years [...] Sign Reading Time Taken Comments Blood Pressure 134/88 04/12/2020 12:10 PM CDT Pulse 61 04/12/2020 12:10 PM CDT Temperature 36.6 ??C (97.9 ??F) 04/12/2020 12:10 PM C DT Respiratory Rate 16 04/12/2020 12:10 PM CDT Oxygen Saturation 98% 04/12/2020 12:10 PM CDT Inhaled Oxygen Concentration - - Weight 82.1 kg (181 lb) 04/12/2020 12:10 PM CDT Height 177.8 cm (5' 10 ) 04/12/2020 12:10 PM CDT Body Mass Index 25.97 04/12/2020 12:10 PM CDT documented in this encounter Progress Notes * Mick Flowers MD - 04/12/2020 11:20 AM CDT Images from the original note were not included. Office Progress Note Reason for Visit: Follow Up, Anxiety, Hypertension, Hyperlipidemia, and Multiple Sclerosis History of Present Illness: He is here today for routine follow-up. Hypertension: Well-controlled on current medications. He is compliant his medication medication side effects. He denies chest pain, shortness of breath, headaches, lightheadedness or dizziness. Hyperlipidemia: Well-controlled on current medications. He is compliant with medication applicationand side effects. He denies muscle aches or joint pains from his medications. Anxiety: Doing well with as needed usage of alprazolam. He denies recent panic attacks. He denies sleep disturbance from anxiety. Insomnia: Doing well with as needed usage of alprazolam at night. He has had some episodes of diarrhea that occur maybe once every few weeks. He states that this usually occurs 15 to 20 minutes after eating a meal and he will have the sudden urge to have a bowel movement will go and have loose stools fairly violently. He states that afterwards he feels back to normal and does not have diarrhea throughout the whole day. He has tried to relate this to a certain type of food but has not been able to relate to this. He denies blood in his stool he denies mucus inhis stool. He is having right ear pain. He states that a few weeks ago it was painful to use a Q-tip in his ear since then he has has decreased significantly but he still has some pain in the ear canal. He has not noticed any decrease in hearing. No drainage from the ear is not noted. ROS: Review of Systems Constitutional: Negative for malaise/fatigue [...] depression. The patient does not have insomnia. Medications: Current Outpatient Medications on File Prior [...] (three) times daily. Indications: Multiple Sclerosis ??? felodipine ER 5 MG 24 hr tablet Take 1 tablet (5 mg total) by mouth daily. ??? HYDROCHLOROTHIAZIDE 25 MG tablet TAKE 1 TABLET(25 MG) BY MOUTH EVERY MORNING ??? LOSARTAN 100 MG tablet TAKE 1 TABLET(100 MG) BY MOUTH DAILY ??? OnabotulinumtoxinA (BOTOX IJ) Inject as directed every 6 (six) months. Indications: Overactive Bladder ??? POTASSIUM CHLORIDE CR 20 MEQ Tab CR tablet TAKE 1 TABLET BY MOUTH DAILY ??? urea 40 % Cream Apply daily as directed to areas of eczema ??? INSULIN SYRINGE .5CC/28G (B-D INS SYR MICROFINE .5CC/28G) 28G X 1/2 0.5 ML Misc No current facility-administered medications on file prior to visit. Allergies: No Known Allergies Medical History: Past Medical History: Diagnosis Date ??? Herpes zoster ??? S/P Botox injection in bladder every 6 months Surgical History: Past Surgical History: Procedure Laterality Date ??? BLADDER SURGERY ??? COLONOSCOPY Social History: Social History Socioeconomic History ??? Marital status: Spouse name: Not on file ??? Number of children: Not on file ??? Years of education: Not on file ??? Highest education level: Not on file Occupational History ??? Not on file Social Needs ??? Financial resource strain: Not on file ??? Food insecurity Worry: Not on file Inability: Not on file ??? Transportation needs Medical: Not on file Non-medical: Not on file Tobacco Use ??? Smoking status: Never Smoker ??? Smokeless tobacco: Never Used Substance and Sexual Activity ??? Alcohol use: Yes Frequency: 4 or more times a week Drinks per session: 3 or 4 Binge frequency: Weekly ??? Drug use: Yes Frequency: 4.0 times per week Types: Marijuana ??? Sexual activity: Yes Partners: Female Lifestyle ??? Physical activity Days per week: Not on file Minutes per session: Not on file ??? Stress: Not on file Relationships ??? Social connections Talks on phone: Not on file Gets together: Not on file Attends uatsdin service: Not on file Active member of club or organization: Not on file Attends meetings of clubs or organizations: Not on file Relationship status: Not on file ??? Intimate partner violence Fear of current or ex partner: Not on file Emotionally abused: Not on file Physically abused: Not on file Forced sexual activity: Not on file Other Topics Concern ??? Not on file Social History Narrative ??? Not on file Family History: Family History Problem Relation Name Age of Onset ??? Cancer Mother ??? Hypertension Father ??? Cancer Father PE: Physical Exam Constitutional: He is oriented to person, place, and time. He appears well- developed and well-nourished. HENT: Head: Normocephalic and atraumatic. Right Ear: Hearing, tympanic membrane, external ear and ear canal normal. Left Ear: Hearing, tympanic membrane, external ear and ear canal normal. Mouth/Throat: Oropharynx is clear and moist. Eyes: Pupils are equal, round, and reactive to light. Conjunctivae and EOM are normal. Neck: Normal range of motion. Neck supple. No thyromegaly present. Cardiovascular: Normal rate, regular rhythm and normal heart sounds. Exam reveals no gallop and no friction rub. No murmur heard. Pulmonary/Chest: Effort normal and breath sounds normal. No respiratory distress. He has no wheezes. He has no rales. Abdominal: Soft. Bowel sounds are normal. He exhibits no distension and no mass. There is no abdominal tenderness. There is no rebound and no guarding. Musculoskeletal: Normal range of motion. General: No deformity or edema. Lymphadenopathy: He has no cervical adenopathy. Neurological: He is alert and oriented to person, place, and time. He has normal reflexes. No cranial nerve deficit. He exhibits normal muscle tone. Coordination and gait normal. Skin: Skin is warm and dry. No rash noted. Psychiatric: He has a normal mood and affect. His behavior is normal. Judgment normal. Nursing note and vitals reviewed. Filed Vitals: 04/12/20 1210 BP: 134/88 Pulse: 61 Resp: 16 Temp: 97.9 ??F (36.6 ??C) TempSrc: Skin SpO2: 98% Weight: 82.1 kg (181 lb) Height: 5' 10 (1.778 m) Diagnoses/Impression: 1. Benign essential hypertension Chronic 2. Mixed hyperlipidemia Chronic 3. Multiple sclerosis (CMS/HCC) Chronic 4. Primary insomnia 5. Anxiety Chronic Recommendations and Plan: 1. Benign essential hypertension Well-controlled on current medications we will continue with same. 2. Mixed hyperlipidemia Labs reviewed and doing well with current medications. 3. Multiple sclerosis (CMS/HCC) Doing well at this time. Patient does follow with neurology on a regular basis. 4. Primary insomnia Stable. 5. Anxiety Well-controlled with as needed usage of alprazolam. Orders Placed This Encounter ??? baclofen 10 MG tablet ??? OnabotulinumtoxinA (BOTOX IJ) Cannot display discharge medications since this is not an admission. PCP: MICK FLOWERS MD 04/12/2020 documented in this encounter Plan of Treatment Upcoming Encounters Date Type Department Care Team (Late st Contact Info) Description 09/09/2024 10:00 AM CDT Office Visit [facility] Family & Internal Medicine [address] [place] [address] Mick Flowers MD [address] [place] [address] documented as of this encounter Visit Diagnoses Diagnosis Benign essential hypertension- Primary Essential hypertension, benign Mixed hyperlipidemia Multiple sclerosis (CMS/HCC HHS/HCC) Multiple sclerosis Primary insomnia Persistent disorder of initiating or maintaining sleep Anxiety Anxiety state, unspecified documented in this encounter Care Teams Vial Gauger Relationship Specialty Start Date End Date Mick Flowers MD [address] [place] [address] PCP - General 10/15/14 documented as of this encounter
--- OUTSIDE RECORDS SUMMARY | 2024-06-29 00:12 | XMS_ITS | Encounter Summary ---
Author Organization [facility] Address [address] [place] [address]. [place], [place] [address] [place] [address] Care Team Providers Care Health Center Associate Name Role Phone Mick Flowers MD Primary Care Provider [phone] Encounter Details Date Type Department Care Team (Latest Contact Info) Description 08/29/2019 Scan HEALTH INFO SRVCS Scanned, Documents Social [...] PHQ-2 Answer Date Recorded PHQ-2 Score 0 10/07/2018 Sex and Gender Information Value Date Recorded Sex Assigned at Male 10/07/2018 11:33 AM CDT Legal Sex Male 9:27 PM CDT Gender Identity Male 10/07/2018 11:33 AM CDT Sexual Orientation Straight 10/07/2018 11 :33 AM CDT documented as of this encounter Plan of Treatment Upcoming Encounters Date Type Department Care Team (Late st Contact Info) Description 09/09/2024 10:00 AM CDT Office Visit [facility] Family & Internal Medicine - [address] [phone] Mick Flowers MD [address] [place] [address] documented as of this encounter Visit Diagnoses Not on filedocumented in this encounter Care Teams Health Center Associate Relationship Specialty Start Date End Date Mick Flowers MD [address] [place] [address] PCP - General 10/15/14 documented as of this encounter
--- OUTSIDE RECORDS SUMMARY | 2024-06-29 00:12 | XMS_ITS | Encounter Summary ---
Author Organization [facility] Address [address] [place] [address]. [place], [place] [address] [place] [address] Care Team Providers Care Ham Passer Name Role Phone Mick Flowers MD Primary Care Provider [phone] Encounter Details Date Type Department Care Team (Latest Contact Info) Description 10/30/2017 Abstract [facility] Medical [facility] Social History Tobacco Use Types Packs/Day Years Used Date Smoking Tobacco: Never Sex and Gender Information Value Date Recorded Sex Assigned at Male 10/07/2018 11:33 AM CDT Legal Sex Male 9:27 PM CDT Gender Identity Male 10/07/2018 11:33 AM CDT Sexual Orientation Straight 10/07/2018 11 :33 AM CDT documented as of this encounter Progress Notes * Mick Flowers MD - 10/30/2017 10:15 AM CDT Message Recorded as Task Date: 10/29/2017 05:02 PM, Created By: Layla Carrillo Task Name: Follow Up Assigned To: [facility] Team Kristie Regarding Patient: Doc Emery, Status: In Progress Comment: Layla aCrrillo - 29 Oct 2017 5:02 PM TASK CREATED Urea cream is a restricted item that [facility] not order okay for alternative? If not will have to be sent to different pharmacy. Mick Flowers - 30 Oct 2017 9:42 AM TASK REASSIGNED: Previously Assigned To Mick Flowers We can try eucrissa and see if that helps, I believe that he uses it for eczema. Abbie Medina - 30 Oct 2017 10:13 AM TASK IN PROGRESS Abbie Medina - 30 Oct 2017 10:17 AM TASK EDITED rx sent to [place] [facility]. pt informed Plan 1. Urea 40 % External Cream; APPLY AND RUB IN A THIN FILM TO AFFECTED AREA(S) DAILY Rx By: Mick Flowers; Dispense: 30 Days ; #:170 Gram; Refill: 5; For: Eczema; KYLE = N; Sent To: [facility]; Last Updated By: Abbie Medina; 10/30/2017 10:17:05 AM Signatures Electronically signed by : Abbie Medina, ; Oct 30 2017 10:17AM DEPUTY SHERIFF BUILDING GUARD (Author) documented in this encounter Plan of Treatment Upcoming Encounters Date Type Department Care Team (Late st Contact Info) Description 09/09/2024 10:00 AM CDT Office Visit [facility] Medical Group Family & Internal Medicine - [address] [address] Mick Flowers MD [address] [place] [address] documented as of this encounter Visit Diagnoses Not on filedocumented in this encounter Care Teams Ham Passer Relationship Specialty Start Date End Date Mick Flowers MD [address] [place] [address] PCP - General 10/15/14 documented as of this encounter
--- OUTSIDE RECORDS SUMMARY | 2024-06-29 00:12 | XMS_ITS | Encounter Summary ---
Author Organization [facility] Address [address] [place] [address]. [place], [place] [address] [place] [address] Care Team Providers Care District Scout Executive Name Role Phone Mick Flowers MD Primary Care Provider [phone] Encounter Details Date Type Department Care Team (Latest Contact Info) Description 04/12/2020 Travel Social History Tobacco Use Types Packs/Day [...] [facility] Family [facility] Internal Medicine [address] [address] Mick Flowers MD [address] [place] [address] documented as of this encounter Visit Diagnoses Not on filedocumented in this encounter Care Teams District Scout Executive Relationship Specialty Start Date End Date Mick Flowers MD [address] [place] [address] PCP - General 10/15/14 documented as of this encounter
--- OUTSIDE RECORDS SUMMARY | 2024-06-29 00:12 | XMS_ITS | Encounter Summary ---
Author Organization [facility] Address [address] [place] [address]. [place], [place] [address] [place] [address] Care Team Providers Care Lapper Name Role Phone Mick Flowers MD Primary Care Provider [phone] Reason for Visit * Reason Onset Date Comments Blood Pressure 10/18/2018 BP reading f/u Encounter Details Date Type Department Care Team (Late st Contact Info) Description 10/18/2018 Telephone [facility] Medical Group Family & Internal Medicine [address] [place] [address] Mick Flowers MD [address] [place], [place] [phone] Blood Pressure (BP reading f/u) Social History Tobacco Use Types Packs/Day Years [...] Progress Notes * Gela Solo MA - 10/18/2018 10:[address] flowers received patient BP log. Patient informed to continue checking BP, dr. flowers noted that it might take 4 weeks to get the full effect of HCTZ. He also noted that AM is when BP is thehighest and nothing to be alarmed about. Patient V/U and he did note that he takes his evening pills a little earlier than 12 hours from first dose and is going to try to take it closer to 12 hours hopefully to help with the morning readings. documented in this encounter Plan of Treatment Upcoming Encounters Date Type Department Care Team (Late st Contact Info) Description 09/09/2024 10:00 AM CDT Office Visit [facility] Medical Group Family & Internal Medicine [address] [address] Mick Flowers MD [address] [place] [address] documented as of this encounter Visit Diagnoses Not on filedocumented in this encounter Care Teams Lapper Relationship Specialty Start Date End Date Mick Flowers MD [address] [place] [address] PCP - General 10/15/14 documented as of this encounter
--- OUTSIDE RECORDS SUMMARY | 2024-06-29 00:12 | XMS_ITS | Encounter Summary ---
Author Organization [facility] Address [address] [place] [address]. [place], [place] [address] [place] [address] Care Team Providers Care Photocomposing Keyboard Operator Name Role Phone Mikc Flowers MD Primary Care Provider [phone] Encounter Details Date Type Department Care Team (Latest Contact Info) Description 10/13/2019 Travel Social History Tobacco Use Types Packs/Day [...] have Coronavirus / COVID-19? No / Unsure 10/13/2019 10:33 AM CDT documented as of this encounter Plan of Treatment Upcoming Encounters Date Type Department Care Team (Late st Contact Info) Description 09/09/2024 10:00 AM CDT Office Visit [facility] Medical Group Family & Internal Medicine [address] [phone] Mick Flowers MD [address] [place] [address] documented as of this encounter Visit Diagnoses Not on filedocumented in this encounter Care Teams Photocomposing Keyboard Operator Relationship Specialty Start Date End Date Mick Flowers MD [address] [place] [address] PCP - General 10/15/14 documented as of this encounter
--- OUTSIDE RECORDS SUMMARY | 2024-06-29 00:12 | XMS_ITS | Encounter Summary ---
Author Organization [facility] Address [address] [place] [address]. [place], [place] [address] [place] [address] Care Team Providers Care Carbon Sequestration Plant Manager Name Role Phone Mick Flowers MD Primary Care Provider [phone] Encounter Details Date Type Department Care Team (Latest Contact Info) Description 01/25/2018 Abstract [facility] Social History Tobacco Use Types [...] [facility] Family [facility] Internal Medicine [address] [address] Mick Flowers MD [address] [place] [address] documented as of this encounter Visit Diagnoses Not on filedocumented in this encounter Care Teams Carbon Sequestration Plant Manager Relationship Specialty Start Date End Date Mick Flowers MD [address] [place] [address] PCP - General 10/15/14 documented as of this encounter
--- OUTSIDE RECORDS SUMMARY | 2024-06-29 00:12 | XMS_ITS | Encounter Summary ---
Author Organization [facility] Address [address] [place] [address]. [place], [place] [address] [place] [address] Care Team Providers Care Infant Toddler Lead Teacher Name Role Phone Mick Flowers MD Primary Care Provider [phone] Reason for Visit * Reason Onset Date Comments Results 09/09/2018 Encounter Details Date Type Department Care Team (Late st Contact Info) Description 09/09/2018 Telephone [facility] Family & Internal Medicine [facility] [address] [place] [address] Mick Flowers MD [address] [place], [place] [phone] Results Social History Tobacco Use Types Packs/Day Years Used Date Smoking Tobacco: Never Sex and Gender Information Value Date Recorded Sex Assigned at Male 10/07/2018 11:33 AM CDT Legal Sex Male 9:27 PM CDT Gender Identity Male 10/07/2018 11:33 AM CDT Sexual Orientation Straight 10/07/2018 11 :33 AM CDT documented as of this encounter Progress Notes * Kanchan Zuñiga MA - 09/09/2018 5:08 PM CDT Patient notified-sjs * Kanchan Zuñiga MA - 09/09/2018 5:08 PM CDT ----- Message from Mick Flowers MD sent at 09/09/2018 2:30 PM CDT ----- Labs are reviewed and are normal. PSA is normal also, it is in a separate report for some reason. documented in this encounter Plan of Treatment Upcoming Encounters Date Type Department Care Team (Late st Contact Info) Description 09/09/2024 10:00 AM CDT Office Visit [facility] Family & Internal Medicine - [address] [address] Mick Flowers MD [address] [place] [address] documented as of this encounter Visit Diagnoses Not on filedocumented in this encounter Care Teams Infant Toddler Lead Teacher Relationship Specialty Start Date End Date Mick Flowers MD [address] [place] [address] PCP - General 10/15/14 documented as of this encounter
--- OUTSIDE RECORDS SUMMARY | 2024-06-29 00:12 | XMS_ITS | Encounter Summary ---
Author Organization [facility] Address [address] [place] [address]. [place], [place] [address] [place] [address] Care Team Providers Care Warp Dresser Name Role Phone Mick Flowers MD Primary Care Provider [phone] Reason for Visit * Reason Comments MRI (SCAN) Encounter Details Date Type Department Care Team (Latest Contact Info) Description 08/01/2019 Scan [facility] Scanned, Documents MRI (SCAN) Social History Tobacco Use Types Packs/Day [...] [facility] Family & Internal Medicine [address] [address] Mick Flowers MD [address] [place] [address] documented as of this encounter Procedures Procedure Name Priority Date/Time Associated Diagnosis Comments MRI GENERIC Routine 08/01/2019 documented in this encounter Results * MRI (08/01/2019) Anatomical Region Laterality Modality Other us Documents Scanned SCANNING Edited Result - Final documented in this encounter Visit Diagnoses Not on filedocumented in this encounter Care Teams Warp Dresser Relationship Specialty Start Date End Date Mick Flowers MD [address] [place] [address] PCP - General 10/15/14 documented as of this encounter
--- OUTSIDE RECORDS SUMMARY | 2024-06-29 00:12 | XMS_ITS | Encounter Summary ---
Author Organization [facility] Address [address] [place] [address]. [place], [place] [address] [place] [address] Care Team Providers Care Optical Design Engineer Name Role Phone Mick Flowers MD Primary Care Provider [phone] Reason for Visit * Reason Onset Date Comments Lab Results 05/23/2019 From 05/16/2019 Encounter Details Date Type Department Care Team (Late st Contact Info) Description 05/23/2019 Telephone [facility] Medical Group Family & Internal Medicine [address] [place] [address] Mick Flowers MD [facility] [place], [place] [phone] Lab Results (From 05/16/2019) Social History Tobacco Use Types Packs/Day Years [...] Progress Notes * Belia Quijano RN - 05/26/2019 2:22 PM CSTAddended by: BELIA QUIJANO on: 05/26/2019 02:22 PM Modules accepted: Orders AULIC ROCK DRILL OPERATOR * Belia Quijano RN - 05/26/2019 2:22 PM CST Spoke to patient; verbalized understanding. rx sent. AULIC ROCK DRILL OPERATOR * Mick Flowers MD - 05/26/2019 9:32 AM CST Appreciate the honesty! Would increase atorvastatin to 40mg daily AULIC ROCK DRILL OPERATOR * Gela Solo MA - 05/23/2019 10:35 AM CST Patient called back in, he does work out 4 times a week, but does not plan to change his diet. He is wondering you would be interested in increasing his atorvastatin dose AULIC ROCK DRILL OPERATOR * Gela Solo MA - 05/23/2019 8:45 AM CST Patient informed, and v/u AULIC ROCK DRILL OPERATOR * Gela Solo MA - 05/23/2019 8:36 AM CST ----- Message from Mick Flowers MD sent at 05/21/2019 3:53 PM HYDRAULIC ROCK DRILL OPERATOR ----- Cholesterol is slightly elevated, diet and exercise Rx. Other labs are good. AULIC ROCK DRILL OPERATOR documented in this encounter Plan of Treatment Upcoming Encounters Date Type Department Care Team (Late st Contact Info) Description 09/09/2024 10:00 AM CDT Office Visit [facility] Group Family & Internal Medicine - [address] [address] Mick Flowers MD [address] [place] [address] documented as of this encounter Visit Diagnoses Diagnosis Mixed hyperlipidemia- Primary Erectile dysfunction, unspecified erectile dysfunction type documented in this encounter Care Teams Optical Design Engineer Relationship Specialty Start Date End Date Mick Flowers MD [address] [place] [address] PCP - General 10/15/14 documented as of this encounter
--- OUTSIDE RECORDS SUMMARY | 2024-06-29 00:12 | XMS_ITS | Encounter Summary ---
Author Organization [facility] Address [address] [place] [address]. [place], [place] [address] [place] [address] Care Team Providers Care Director Public Policy Name Role Phone Mick Flowers MD Primary Care Provider [phone] Encounter Details Date Type Department Care Team (Late st Contact Info) Description 09/03/2018 Orders Only [facility] Family & Internal [address] [phone] Mick Flowers MD [address] [place] [address] [phone] Social History Tobacco Use Types Packs/Day Years Used Date Smoking Tobacco: Never Sex and Gender Information Value Date Recorded Sex Assigned at Male 10/07/2018 11:33 AM CDT Legal Sex Male 9:27 PM CDT Gender Identity Male 10/07/2018 11:33 AM CDT Sexual Orientation Straight 10/07/2018 11 :33 AM CDT documented as of this encounter Progress Notes * Mick Flowers MD - 09/10/2018 8:52 PM CDT PSA is good. documented in this encounter Plan of Treatment Upcoming Encounters Date Type Department Care Team (Late st Contact Info) Description 09/09/2024 10:00 AM CDT Office Visit [facility] Family & Internal [address] [address] Mick Flowers MD [address] [place] [address] documented as of this encounter Procedures Procedure Name Priority Date/Time Associated Diagnosis Comments PSA, TOTAL AND FREE Routine 09/03/2018 7 :43 AM CDT documented in this encounter Results * (ABNORMAL) PSA, TOTAL AND FREE (09/03/2018 7:43 AM CDT) PSA TOTAL 1.1 < OR = 4.0 ng/mL [facility] PSA Free 0.2 ng/mL [facility] PSA % Free 18(L) >25 % (calc) [facility] Comment: PSA(ng/mL) ?Free PSA(%) ? Estimated(x) Probability ? of Cancer(as%) 0-2.5 ?(*) ? Approx. 1 2.6-4.0(1) ? 0-27(2) ? 24(3) 4.1-10(4) ?0-10 ?56 ? 11-15 ? 28 ? 16-20 ? 20 ? 21-25 ? 16 ? >or =26 ? 8 >10(+) ? N/A ?>50 References:(1)Stella belcher al.:Urology 60: 469-474 (2002) ? (2)Stella belcher al.:J.Urol 168: 922-925 (2002) ?Free PSA(%) ?? Sensitivity(%) ??Specificity(%) ?< or = 25 ?85 ?19 ?< or = 30 ?93 ? 9 ? (3)Stella et al.:MAKENZIE 277: 9737-2458 (1996) ? (4)Vivianona et al.:MAKENZIE 279: 0359-0676 (1997) (x)These estimates vary with age, ethnicity, family ?? history and YOUSIF results. (*)The diagnostic usefulness of % Free PSA has not been ?? established in patients with total PSA below 2.6 ng/mL (+)In men with PSA above 10 ng/mL, prostate cancer risk is ?? determined by total PSA alone. The Total PSA value from this assay system is standardized against the equimolar PSA standard. The test result will be approximately 20% higher when compared to the WHO-standardized Total PSA (Siemens assay). Comparison of serial PSA results should be interpreted with this fact in mind. PSA was performed using the Penny Megan Immunoassay method. Values obtained from different assay methods cannot be used interchangeably. PSA levels, regardless of value, should not be interpreted as absolute evidence of the presence or absence of disease. 09/03/2018 7:43 AM CDT 09/05/2018 1:19 AM CDT Narrative [facility] - 09/05/2018 4:38 PM CDT FASTING:YES FASTING: YES Resulting Agency Comment Performing Organization Information: ?Site ID: [id number] ?Name: [facility] ?Address: [address] [address] ?Director: Momo Bates D.O., MPH Mick Flowers MD LABORATORY Final Result [facility] documented in this encounter Visit Diagnoses Not on filedocumented in this encounter Care Teams Director Public Policy Relationship Specialty Start Date End Date Mick Flowers MD [address] [place] [address] PCP - General 10/15/14 documented as of this encounter
--- OUTSIDE RECORDS SUMMARY | 2024-06-29 00:12 | XMS_ITS | Encounter Summary ---
Author Organization [facility] Address [address] [place] [address]. [place], [place] [address] [place] [address] Care Team Providers Care Revenue Cycle Consultant Name Role Phone Mick Flowers MD Primary Care Provider [phone] Reason for Visit * Reason Onset Date Comments Appointment Request 08/16/2020 Encounter Details Date Type Department Care Team (Late st Contact Info) Description 08/16/2020 Telephone [facility] Medical Group Multispecialty Care - [facility] [address] [facility], [address] [place] [address] Lindsay Bess NP [address] [facility] [place] [address] [place] [address] Appointment Request Social History Tobacco Use Types [...] as of this encounter Progress Notes * Nighat Rivers - 08/16/2020 9:24 AM CST Pt called in as a self referral. Pt stated that he has had stomach issues for over a year. Pt stated that he has not had any test or labs except for annual physical labs. Pt have BCBS PPO and tricarefor life. Pt's appt is 09/21 ETICS COUNTER MANAGER documented in this encounter Plan of Treatment Upcoming Encounters Date Type Department Care Team (Late st Contact Info) Description 09/09/2024 10:00 AM CDT Office Visit [facility] Medical Group Family & Internal Medicine - [address] [phone] Mick Flowers MD [address] [place] [address] documented as of this encounter Visit Diagnoses Not on filedocumented in this encounter Care Teams Revenue Cycle Consultant Relationship Specialty Start Date End Date Mick Flowers MD [address] [place] [address] PCP - General 10/15/14 documented as of this encounter
--- OUTSIDE RECORDS SUMMARY | 2024-06-29 00:12 | XMS_ITS | Encounter Summary ---
Author Organization [facility] Address [address] [place] [address]. [place], [place] [address] [place] [address] Care Team Providers Care Power Systems Engineer Name Role Phone Mick Flowers MD Primary Care Provider [phone] Encounter Details Date Type Department Care Team (Latest Contact Info) Description 02/14/2018 Abstract [facility] Mick Flowers MD [address] [place] [address] Social History Tobacco Use Types Packs/Day Years Used Date Smoking Tobacco: Never Sex and Gender Information Value Date Recorded Sex Assigned at Male 10/07/2018 11:33 AM CDT Legal Sex Male 9:27 PM CDT Gender Identity Male 10/07/2018 11:33 AM CDT Sexual Orientation Straight 10/07/2018 11 :33 AM CDT documented as of this encounter Progress Notes * Generic Conversion MD Denise - 02/14/2018 1:44 PM CDT Message Recorded as Task Date: 02/14/2018 10:44 AM, Created By: Umu Marcano Task Name: Medical Complaint Callback Assigned To: [facility] Team Kristie Regarding Patient: Doc Emery, Status: In Progress Comment: Umu Marcano - 14 Feb 2018 10:44 AM TASK CREATED Medicine Refill Request: Said these medications seem to be working well for him. Requesting 90 day with refills. Furosemide 20 mg Potassium Chloride ER 20 MEQ Pharmacy: [facility]# [phone] Simona Gutierres - 14 Feb 2018 11:41 AM TASK REASSIGNED: Previously Assigned To Mick Flowers Can refill for 90 days Abbie Medina - 14 Feb 2018 1:44 PM TASK IN PROGRESS Abbie Medina - 14 Feb 2018 1:45 PM TASK EDITED rx sent to pharmacy Plan 1. Furosemide 20 MG Oral Tablet; TAKE 1 TABLET EVERY MORNING Rx By: Mick Flowers; Dispense: 90 Days ; #:90 Tablet; Refill: 0; For: Edema; KYLE = N; Sent To: [facility] [id number]; Last Updated By: Abbie Medina; 02/14/2018 1:45:43 PM 2. Potassium Chloride ER 20 MEQ Oral Tablet Extended Release; TAKE ONE TABLET BY MOUTH DAILY Rx By: Mick Flowers; Dispense: 90 Days ; #:90 Tablet; Refill: 0; For: Edema; KYLE = N; Sent To: [facility]; Last Updated By: Abbie Medina; 02/14/2018 1:45:44 PM Signatures Electronically signed by : Abbie Medina, ; Feb 14 2018 1:46PM BOILER SHOP SUPERVISOR (Author) documented in this encounter Plan of Treatment Upcoming Encounters Date Type Department Care Team (Late st Contact Info) Description 09/09/2024 10:00 AM CDT Office Visit [facility] Medical Group Family & Internal Medicine [address] [address] Mick Flowers MD [address] [place] [address] documented as of this encounter Visit Diagnoses Not on filedocumented in this encounter Care Teams Power Systems Engineer Relationship Specialty Start Date End Date Mick Flowers MD [address] [place] [address] PCP - General 10/15/14 documented as of this encounter
--- OUTSIDE RECORDS SUMMARY | 2024-06-29 00:12 | XMS_ITS | Encounter Summary ---
Author Organization [facility] Address [address] [place] [address]. [place], [place] [phone] [place] [address] Care Team Providers Care Chart Picker Name Role Phone Mick Flowers MD Primary Care Provider [phone] Encounter Details Date Type Department Care Team (Latest Contact Info) Description 11/11/2017 Abstract [facility] Medical Group Social History Tobacco Use Types Packs/Day Years Used Date Smoking Tobacco: Never Sex and Gender Information Value Date Recorded Sex Assigned at Male 10/07/2018 11:33 AM CDT Legal Sex Male 9:27 PM CDT Gender Identity Male 10/07/2018 11:33 AM CDT Sexual Orientation Straight 10/07/2018 11 :33 AM CDT documented as of this encounter Progress Notes * Mick Flowers MD - 11/11/2017 9:32 PM CDT Message HgA1C is normal. I spoke to pt about his results and he v/u --osman Verified Results QU-HEMOGLOBIN A1C 496 [id number] 09:58AM Mick Flowers Test Name Result Flag Reference HEMOGLOBIN A1c 5.3 <5.7 UNITS: % of total Hgb For the purpose of screening for the presence of diabetes: <5.7% Consistent with the absence of diabetes 5.7-6.4% Consistent with increased risk for diabetes (prediabetes) > or =6.5% Consistent with diabetes This assay result is consistent with a decreased risk of diabetes. Currently, no consensus exists regarding use of hemoglobin A1c for diagnosis of diabetes in children. According to [place] [employer] (ADA) guidelines, hemoglobin A1c <7.0% represents optimal control in non- diabetic patients. Different metrics may apply to specific patient populations. Standards of Medical Care in Diabetes(ADA). Test Performed at: [facility] [address] [place] [address] JELLY MAYERS DO,MPH Signatures Electronically signed by : Osman Solis MA; Nov 12 2017 10:41AM BUOY TENDER (Author) documented in this encounter Plan of Treatment Upcoming Encounters Date Type Department Care Team (Late st Contact Info) Description 09/09/2024 10:00 AM CDT Office Visit [facility] Medical Group Family & Internal Medicine - [address] [phone] Mick Flowers MD [address] [place] [place] [address] documented as of this encounter Visit Diagnoses Not on filedocumented in this encounter Care Teams Chart Picker Relationship Specialty Start Date End Date Mick Flowers MD [address] [place] [address] PCP - General 10/15/14 documented as of this encounter
--- OUTSIDE RECORDS SUMMARY | 2024-06-29 00:12 | XMS_ITS | Encounter Summary ---
Author Organization [facility] Address [address] [place] [address]. [place], [place] [phone] [place] [address] Care Team Providers Care Hospice Home Care Coordinator Name Role Phone Mick Flowers MD Primary Care Provider [phone] Encounter Details Date Type Department Care Team (Latest Contact Info) Description 07/04/2019 Scan [facility] Scanned, Documents Social [...] Medical Group Family & Internal Medicine - [address] [phone] Mick Flowers MD [address] [place] [phone] documented as of this encounter Visit Diagnoses Not on filedocumented in this encounter Care Teams Hospice Home Care Coordinator Relationship Specialty Start Date End Date Mick Flowers MD [address] [place] [address] PCP - General 10/15/14 documented as of this encounter
--- OUTSIDE RECORDS SUMMARY | 2024-06-29 00:12 | XMS_ITS | Encounter Summary ---
Author Organization [facility] Address [address] [place] [address]. [place], [place] [phone] [place] [address] Care Team Providers Care Ball Rolling Machine Operator Name Role Phone Mick Flowers MD Primary Care Provider [phone] Encounter Details Date Type Department Care Team (Late st Contact Info) Description 01/14/2018 Abstract [facility] Medical Group Family & Internal Medicine [address] [phone] Mick Flowers MD [address] [place] [address] Social History Tobacco Use Types Packs/Day Years [...] Sign Reading Time Taken Comments Blood Pressure 124/79 01/14/2018 12:11 PM CDT Pulse 68 01/14/2018 12:11 PM CDT Temperature - - Respiratory Rate - - Oxygen Saturation - - Inhaled Oxygen Concentration - - Weight 81.6 kg (180 lb) 01/14/2018 12:11 PM CDT Height 180.3 cm (5' 11 ) 01/14/2018 12:11 PM CDT Body Mass Index 25.1 01/14/2018 12:11 PM CDT documented in this encounter Progress Notes * Mick Flowers MD - 01/14/2018 11:40 AM CDT Reason For Visit Acute Visit Chief Complaint Patient c/o B/L ankle swelling for 1-2- months History of Present Illness He has noticed that over the last 2 months, he has had some swelling in his ankles in the afternoonand evening. He prior to this did not have any problems. He has not had any changes in his medications. His and his daughter, who is a nurse, are concerned about and had him come in to be checked. He denies any dyspnea on exertion, chest pain. He does work out on a regular basis and does cardio for half an hour to an hour most days and has not noticed any change in his stamina or breathing. He does say that the swelling in his legs goes by the morning or if he sits down in the evening and props his feet up, the swelling decreases. PHQ-9 Depression Questionnaire: Over the past 2 weeks, how often have you been bothered by the following problems? 1.) Little interest or pleasure in doing things? Not at all. 2.) Feeling down, depressed or hopeless? Not at all. 3.) Trouble falling asleep or sleeping too much? Not at all. 4.) Feeling tired or having little energy? Not at all. 5.) Poor appetite or overeating? Not at all. 6.) Feeling bad about yourself, or that you are a failure, or have let yourself or your family down? Not at all. 7.) Trouble concentrating on things, such as reading a newspaper or watching television? Not at all. 8.) Moving or speaking so slowly that other people could have noticed, or the opposite, moving or speaking faster than usual? Not at all. 9.) Thoughts that you would be off or of hurting yourself in some way? Not at all. TOTAL SCORE: 0. Review of Systems Constitutional: Normal. ENT: normal. Cardiovascular: Normal. Respiratory: Normal. Gastrointestinal: Normal. Genitourinary: Normal. Integumentary: Normal. Musculoskeletal: Normal. Neurological: Normal. Psychiatric: Normal.. Active Problems 1. Anxiety (300.00) (F41.9) 2. Benign essential hypertension (401.1) (I10) 3. Colon cancer (153.9) (C18.9) 4. Eczema (692.9) (L30.9) 5. Elevated fasting glucose (790.21) (R73.01) 6. Erectile dysfunction (607.84) (N52.9) 7. Hyperlipidemia (272.4) (E78.5) 8. Multiple sclerosis (340) (G35) 9. Screening for prostate cancer (V76.44) (Z12.5) 10. Self-catheterizes urinary bladder (V49.89) (Z78.9) Past Medical History 1. History of herpes zoster (V12.09) (Z86.19) Surgical History 1. History of Bladder Surgery 2. History of Colonoscopy Family History Mother 1. Family history of Cancer Father 2. Family history of Benign Essential Hypertension 3. Family history of Cancer Family History 4. Family history of Cancer Social History ?? Never a smoker Current Meds 1. ALPRAZolam 0.5 MG Oral Tablet; TAKE 1 TABLET BY MOUTH THREE TIMES DAILY NEEDED; Therapy: 03Oct2012 to (Evaluate:78Ghs3403) Requested for: 20Dec2017; Last Rx:20Dec2017 Ordered 2. Ampyra 10 MG Oral Tablet Extended Release 12 Hour; Therapy: 73Jnz1012 to Recorded 3. Atorvastatin Calcium 20 MG Oral Tablet; TAKE 1 TABLET DAILY (NEED APPOINTMENT); Therapy: 26Jun2012 to (Last Rx:17Sep2017) Requested for: 17Sep2017 Ordered 4. BD Insulin Syringe MicroFine 28G X 1/2 0.5 ML; USE DIRECTED; Therapy: 22Apr2015 to (Evaluate:19Pfx1201) Requested for: 22Apr2015; Last Rx:22Apr2015 Ordered 5. Edex 20 MCG Intracavernosal Kit; INJECT 1 ML CAVERNOSAL 10-30 MINUTES PRIOR TO INTERCOURSE; Therapy: 87Kzk8171 to (Last Rx:13Sep2017) Requested for: 13Sep2017 Ordered 6. Felodipine ER 5 MG Oral Tablet Extended Release 24 Hour; Take 1 tablet daily; Therapy: 28Liy2114 to (Last Rx:06Sep2017) Requested for: 06Sep2017 Ordered 7. HydroCHLOROthiazide 25 MG Oral Tablet; TAKE 1 TABLET BY MOUTH DAILY DIRECTED; Therapy: 28Jun2015 to (Evaluate:99Kzg6024) Requested for: 13Sep2017; Last Rx:13Sep2017 Ordered 8. Losartan Potassium 100 MG Oral Tablet; TAKE 1 TABLET EVERY DAY (NEED APPOINTMENT FOR REFILLS); Therapy: 79Jvx3728 to (Last Rx:26Nov2017) Requested for: 26Nov2017 Ordered 9. Urea 40 % External Cream; APPLY AND RUB IN A THIN FILM TO AFFECTED AREA(S) DAILY; Therapy: 08Sdb9446 to (Evaluate:28Apr2018) Requested for: 43Joa1638; Last Rx:81Lrq0826 Ordered Allergies 1. No Known Drug Allergies Immunizations Influenza --- Series1: 16-Apr-2013; Series2: 31-Mar-2015; Series3: 01-Jun-2017 Zoster --- Series1: 12-Jul-2017 Vitals Recorded: 14Jan2018 12:11PM Heart Rate 68 Respiration 16 Systolic 124 Diastolic 79 O2 Saturation 98 Height 5 ft 11 in Weight 180 lb BMI Calculated 25.11 BSA Calculated 2.02 Physical Exam Constitutional General appearance: No acute distress, well appearing and well nourished. Pulmonary Auscultation of lungs: Clear to auscultation. Lungs are clear.. Cardiovascular Palpation of heart: Normal PMI, no thrills. Auscultation of heart: Normal rate and rhythm, normal S1 and S2, without murmurs. Examination of extremities for edema and/or varicosities: Normal. No edema.. Assessment 1. Benign essential hypertension (401.1) (I10) 2. Edema (782.3) (R60.9) Plan Benign essential hypertension, Edema 1. QU-CBC ( INCLUDES DIFF/PLT ) ( REFL ) [id number]; Status:Hold For - Manual Activation; Requested for:14Jan2018; Perform:[facility]; Due:13Feb2018;Ordered; For:Benign essential hypertension, Edema; Ordered By:Mick Flowers; 2. QU-COMPREHENSIVE METABOLIC PANEL [id number]; Status:Hold For - Manual Activation; Requested for:14Jan2018; Perform:[facility]; Due:69Rpo2560;Ordered; For:Benign essential hypertension, Edema; Ordered By:Mick Flowers; 3. US ECHO 2D W/ M-MODE COMPLETE; Status:Active; Requested for:14Jan2018; Perform:[facility]; Due:13Feb2018; Last Updated By:Terri Young; 01/14/2018 2:42:17 PM;Ordered; For:Benign essential hypertension, Edema; Ordered By:Mick Flowers; see referral flowsheet sent to [facility] because [facility] does not do Echo's there Or [facility] if not available there please [facility] please We discussed that swelling can be from multiple factors. One of his medications, felodipine, may cause this. Also if he is taking in more sodium than normal and he states that his diet is poor and also not drinking enough fluids. I have asked him to watch his sodium intake and increase his oral fluids to see if this has any bearing on his symptoms. Signatures Electronically signed by : Mick Flowers M.D.; Jan 17 2018 1:01AM HOUSEKEEPING/LAUNDRY (Author) documented in this encounter Plan of Treatment Upcoming Encounters Date Type Department Care Team (Late st Contact Info) Description 09/09/2024 10:00 AM CDT Office Visit [facility] Medical Group Family & Internal Medicine - [address] [phone] Mick Flowers MD [facility] [place] [address] documented as of this encounter Visit Diagnoses Not on filedocumented in this encounter Care Teams Ball Rolling Machine Operator Relationship Specialty Start Date End Date Mick Flowers MD [address] [place] [address] PCP - General 10/15/14 documented as of this encounter
--- OUTSIDE RECORDS SUMMARY | 2024-06-29 00:12 | XMS_ITS | Encounter Summary ---
Author Organization [facility] Address [address] [place] [address]. [place], [place] [phone] [place] [address] Care Team Providers Care Colorist Name Role Phone Mick Flowers MD Primary Care Provider [phone] Encounter Details Date Type Department Care Team (Latest Contact Info) Description 11/09/2017 Abstract [facility] Mick Flowers MD [facility] [place] [address] Social History Tobacco Use Types Packs/Day Years [...] Description 09/09/2024 10:00 AM CDT Office Visit [facility] Family & Internal Medicine [address] [place] [phone] Mick Flowers MD [address] [place] [address] documented as of this encounter Procedures Procedure Name Priority Date/Time Associated Diagnosis Comments HEMOGLOBIN, GLYCOSYLATED Routine 11/09/2017 9:58 AM CDT documented in this encounter Results * HEMOGLOBIN, GLYCOSYLATED (11/09/2017 9:58 AM CDT) HGB A1C 5.3 <5.7 [facility] T O EPIC CONVERSION Comment: Result Comment: UNITS: % of total Hgb For the purpose of screening for the presence of diabetes: <5.7% ? Consistent with the absence of diabetes 5.7-6.4% ?Consistent with increased risk for diabetes ?(prediabetes) > or =6.5% ??Consistent with diabetes This assay result is consistent with a decreased risk of diabetes. Currently, no consensus exists regarding use of hemoglobin A1c for diagnosis of diabetes in children. According to [place] [employer] (ADA) guidelines, hemoglobin A1c <7.0% represents optimal control in non- diabetic patients. Different metrics may apply to specific patient populations. Standards of Medical Care in Diabetes(ADA). ?? Test Performed at: [facility] [address] [place], [place] ??[address] ? JELLY MAYERS DO,MPH 11/09/2017 9:58 AM CDT 11/09/2017 9:58 AM CDT Narrative [facility] TO EPIC CONVERSION - 11/10/2017 12:00 AM CDT Result Communication: Call patient with results Mick Flowers MD LABORATORY Final Result [facility] TO EPIC CONVERSION documented in this encounter Visit Diagnoses Not on filedocumented in this encounter Care Teams Colorist Relationship Specialty Start Date End Date Mick Flowers MD [address] [place] [address] PCP - General 10/15/14 documented as of this encounter
--- OUTSIDE RECORDS SUMMARY | 2024-06-29 00:12 | XMS_ITS | Encounter Summary ---
Author Organization [facility] Address [address] [place] [address]. [place], [place] [address] [place] [address] Care Team Providers Care Manager Creative Name Role Phone Mick Flowers MD Primary Care Provider [phone] Encounter Details Date Type Department Care Team (Latest Contact Info) Description 04/30/2018 Scan [facility] Medical Group , Melanie Carroll MD Social History Tobacco Use Types Packs/Day Years [...] HOSPITAL Medical Group Family & Internal Medicine [address] [phone] Mick Flowers MD [address] [place] [address] documented as of this encounter Visit Diagnoses Not on filedocumented in this encounter Care Teams Manager Creative Relationship Specialty Start Date End Date Mick Flowers MD [address] [place] [address] PCP - General 10/15/14 documented as of this encounter
--- OUTSIDE RECORDS SUMMARY | 2024-06-29 00:12 | XMS_ITS | Encounter Summary ---
Author Organization [facility] Address [address] [place] [address]. [place], [place] [phone] [place] [address] Care Team Providers Care Tip Finisher Name Role Phone Mick Flowers MD Primary Care Provider [phone] Encounter Details Date Type Department Care Team (Latest Contact Info) Description 12/04/2017 Abstract [facility] Medical Group Social History Tobacco [...] Description 09/09/2024 10:00 AM CDT Office Visit [facility] Medical Group Family & Internal Medicine [address] [phone] Mick Flowers MD [address] [place] [address] documented as of this encounter Visit Diagnoses Not on filedocumented in this encounter Care Teams Tip Finisher Relationship Specialty Start Date End Date Mick Flowers MD [address] [place] [address] PCP - General 10/15/14 documented as of this encounter
--- OUTSIDE RECORDS SUMMARY | 2024-06-29 00:12 | XMS_ITS | Encounter Summary ---
Author Organization [facility] Address [address] [place] [address]. [place], [place] [address] [place] [address] Care Team Providers Care Cut Off Man Name Role Phone Mick Flowers MD Primary Care Provider [phone] Reason for Visit * Reason Onset Date Comments Pre Appt Labs 08/10/2020 Encounter Details Date Type Department Care Team (Late st Contact Info) Description 08/10/2020 Telephone [facility] Family & Internal Medicine [facility] [address] [place] [address] Mick Flowers MD [address] [place], [place] [phone] Pre Appt Labs Social History Tobacco Use [...] Progress Notes * Mick Flowers MD - 09/01/2020 1:29 PM CST Cholesterol slightly elevated, repeat fasting. Other labs are good. OUTFITTING SUPERVISOR * Kanchan Zuñiga MA - 08/10/2020 12:58 PM CST Orders entered and mailed 08/10/20 OUTFITTING SUPERVISOR * Mick Flowers MD - 08/10/2020 11:09 AM CST Annual lipid labs with PSA OUTFITTING SUPERVISOR * Adeola Ascencio - 08/10/2020 10:47 AM CST Patient is asking if he needs to have labs before his annual physical in March. He goes to [facility],but would like his lab orders mailed to him. He would also like to make sure his liver is checked out on these labs. OUTFITTING SUPERVISOR documented in this encounter Plan of Treatment Upcoming Encounters Date Type Department Care Team (Late st Contact Info) Description 09/09/2024 10:00 AM CDT Office Visit [facility] Family & Internal Medicine [address] [phone] Mick Flowers MD [address] [place] [address] documented as of this encounter Procedures Procedure Name Priority Date/Time Associated Diagnosis Comments URINALYSIS, AUTO, COMPLETE Routine 09/08/2020 8:39 AM CDT Encounter for prostate cancer screening Multiple sclerosis (CMS/HCC HHS/HCC) Benign essential hypertension Mixed hyperlipidemia Malignant tumor of colon (CMS/HCC HHS/HCC) Anxiety LIPID PANEL WITH DIRECT LDL Routine 08/23/2020 10:19 AM BOAT OUTFITTING SUPERVISOR Encounter for prostate cancer screening Multiple sclerosis (CMS/HCC HHS/HCC) Benign essential hypertension Mixed hyperlipidemia Malignant tumor of colon (CMS/HCC HHS/HCC) Anxiety TSH W/REFLEX Routine 08/23/2020 10:19 AM BOAT OUTFITTING SUPERVISOR Encounter for prostate cancer screening Multiple sclerosis (CMS/HCC HHS/HCC) Benign essential hypertension Mixed hyperlipidemia Malignant tumor of colon (CMS/HCC HHS/HCC) Anxiety CBC W/AUTO DIFF Routine 08/23/2020 10:19 AM BOAT OUTFITTING SUPERVISOR Encounter for prostate cancer screening Multiple sclerosis (CMS/HCC HHS/HCC) Benign essential hypertension Mixed hyperlipidemia Malignant tumor of colon (CMS/HCC HHS/HCC) Anxiety PROSTATE SPECIFIC ANTIGEN,SCREENING Routine 08/23/2020 10:19 AM BOAT OUTFITTING SUPERVISOR Encounter for prostate cancer screening COMPREHENSIVE METABOLIC PANEL Routine 08/23/2020 10:19 AM BOAT OUTFITTING SUPERVISOR Encounter for prostate cancer screening Multiple sclerosis (CMS/HCC HHS/HCC) Benign essential hypertension Mixed hyperlipidemia Malignant tumor of colon (CMS/HCC HHS/HCC) Anxiety VITAMIN D 1,25 DIHYDROXY Routine 08/23/2020 10:19 AM BOAT OUTFITTING SUPERVISOR Encounter for prostate cancer screening Multiple sclerosis (CMS/HCC HHS/HCC) Benign essential hypertension Mixed hyperlipidemia Malignant tumor of colon (CMS/HCC HHS/HCC) Anxiety documented in this encounter Results * URINALYSIS, AUTO, COMPLETE (09/08/2020 8:39 AM CDT) COLOR (U) YELLOW YELLOW [facility] APPEARANCE SEMEN CLEAR CLEAR [facility] SPECIFIC GRAVITY (U) 1.011 1.001 - 1.035 [facility] PH (U) 6.5 5.0 - 8.0 [facility] URINE GLUCOSE NEGATIVE NEGATIVE [facility] BILIRUBIN (U) NEGATIVE NEGATIVE [facility] KETONE (U) NEGATIVE NEGATIVE [facility] BLOOD (U) NEGATIVE NEGATIVE [facility] PROTEIN (U) NEGATIVE NEGATIVE [facility] NITRITES NEGATIVE NEGATIVE [facility] LEUKOCYTES (U) NEGATIVE NEGATIVE [facility] WBC/HPF 0-5 < OR = 5 /HPF [facility] RBC/HPF NONE SEEN < OR = 2 /HPF [facility] SQUAMOUS EPITHELIAL (U) NONE SEEN < OR = 5 /HPF [facility] BACTERIA (U) NONE SEEN NONE SEEN /HPF [facility] HYALINE CASTS NONE SEEN NONE SEEN /LPF [facility] URINE SPECIMEN OBTAINED BY CLEAN CATCH PROCEDURE / Unknown 09/08/2020 8:39 AM CDT 09/08/2020 8:40 AM CDT Narrative [facility] - 09/09/2020 2:25 AM CDT SPLIT 08/23/2020 FROM [id number] Mick Flowers MD URINE ORDERABLES Final Result Performing Organization Address City/[facility]/ZIP Co de Phone Number [facility] [address] [place] [address] * PROSTATE SPECIFIC ANTIGEN,SCREENING (08/23/2020 10:19 AM BOAT OUTFITTING SUPERVISOR) PSA TOTAL 1.0 < OR = 2.5 ng/mL [facility] Comment: The total PSA value from this assay system is standardized against the WHO standard. The test result will be approximately 20% lower when compared to the equimolar-standardized total PSA (Penny [place]on). Comparison of serial PSA results should be interpreted with this fact in mind. This test was performed using the Siemens chemiluminescent method. Values obtained from different assay methods cannot be used interchangeably. PSA levels, regardless of value, should not be interpreted as absolute evidence of the presence or absence of disease. 08/23/2020 10:1 9 AM BOAT OUTFITTING SUPERVISOR 08/23/2020 10:20 AM BOAT OUTFITTING SUPERVISOR Narrative [facility] - 08/27/2020 2:36 PM BOAT OUTFITTING SUPERVISOR FASTING:YES PATIENT UNABLE TO VOID; ADVISED TO RETURN FOR COLLECTION. FASTING: YES Mick Flowers MD LABORATORY Final Result Performing Organization Address City/[facility]/ZIP Co de Phone Number [facility] [address] [place] [address] * TSH W/REFLEX (08/23/2020 10:19 AM BOAT OUTFITTING SUPERVISOR) TSH 2.33 0.40 - 4.50 mIU/L [facility] 08/23/2020 10:1 9 AM BOAT OUTFITTING SUPERVISOR 08/23/2020 10:20 AM BOAT OUTFITTING SUPERVISOR Narrative [facility] - 08/27/2020 2:36 PM BOAT OUTFITTING SUPERVISOR FASTING:YES PATIENT UNABLE TO VOID; ADVISED TO RETURN FOR COLLECTION. FASTING: YES Mick Flowers MD LABORATORY Final Result [facility] YOL[facility] [address] [place] [phone] * VITAMIN D 1,25 DIHYDROXY (08/23/2020 10:19 AM BOAT OUTFITTING SUPERVISOR) VITAMIN D 1 25 DIHYDROXY S/P/B 55 18 - 72 pg/mL [facility] Comment:See Note 1 VITAMIN D3 1 25 DIHYDROXY S/P/B 55 pg/mL [facility] Comment:See Note 1 VITAMIN D2 1 25 DIHYDROXY S/P/B <8 pg/mL [facility] Comment: Vitamin D3, 1,25(OH)2 indicates both endogenous production and supplementation. Vitamin D2, 1,25(OH)2 is an indicator of exogenous sources, such as diet or supplementation. Interpretation and therapy are based on measurement of Vitamin D, 1,25 (OH)2, Total. See Note 1 See Note 2 Note 1 This test was developed and its analytical performance characteristics have been determined by [facility]. It has not been cleared or approved by the FDA. This assay has been validated pursuant to the CLIA regulations and is used for clinical purposes. Note 2 For additional information, please refer to http://education.Upshot/faq/XTE312 (This link is being provided for informational/ educational purposes only.) 08/23/2020 10:1 9 AM BOAT OUTFITTING SUPERVISOR 08/23/2020 10:20 AM BOAT OUTFITTING SUPERVISOR Narrative [facility] - 08/27/2020 2:36 PM BOAT OUTFITTING SUPERVISOR FASTING:YES PATIENT UNABLE TO VOID; ADVISED TO RETURN FOR COLLECTION. FASTING: YES Mick Flowers MD LABORATORY Final Result [facility] [address] [place] [address] * (ABNORMAL) LIPID PANEL WITH DIRECT LDL (08/23/2020 10:19 AM BOAT OUTFITTING SUPERVISOR) CHOLESTEROL 213(H) <200 mg/dL [facility] HDL 73 > OR = 40 mg/dL [facility] TRIGLYCERIDES 161(H) <150 mg/dL [facility] LDL (CALCULATED) 112(H) mg/dL (calc) [facility] Comment: Reference [...] LDL-C. Sergey SS et al. MAKENZIE. 2013;310(19): 5558-6173 (http://education.Upshot/faq/WQE926) CHOL/HDL RATIO 2.9 <5.0 (calc) [facility] NON HDL CHOLESTEROL 140(H) <130 mg/dL (calc) [facility] Comment: For patients with diabetes plus 1 major ASCVD risk factor, treating to a non-HDL-C goal of <100 mg/dL (LDL-C of <70 mg/dL) is considered a therapeutic option. 08/23/2020 10:1 9 AM BOAT OUTFITTING SUPERVISOR 08/23/2020 10:20 AM BOAT OUTFITTING SUPERVISOR Narrative [facility] - 08/27/2020 2:36 PM BOAT OUTFITTING SUPERVISOR FASTING:YES PATIENT UNABLE TO VOID; ADVISED TO RETURN FOR COLLECTION. FASTING: YES Mick Flowers MD LABORATORY Final Result [facility] [address] [facility] [place], [place] [address] * COMPREHENSIVE METABOLIC PANEL (08/23/2020 10:19 AM BOAT OUTFITTING SUPERVISOR) [facility] GLUCOSE 88 65 - 99 mg/dL [facility] Comment: ? Fasting reference interval BUN 8 7 - 25 mg/dL [facility] CREATININE S/P/B 0.79 0.70 - 1.33 mg/dL [facility] Comment: For patients >49 years of age, the reference limit for Creatinine is approximately 13% higher for people identified as -Vietnamese. EGFR NON-AFR. AMER. 101 > OR = 60 mL/min/1 .73m2 [facility] EGFR AFR. AMER. 117 > OR = 60 mL/min/1 .73m2 [facility] BUN CREATININE RATIO NOT APPLICABLE 6 - 22 (calc) [facility] SODIUM S/P/B 138 135 - 146 mmol/L [facility] POTASSIUM S/P/B 4.1 3.5 - 5.3 mmol/L [facility] CHLORIDE S/P/B 103 98 - 110 mmol/L [facility] CO2 23 20 - 32 mmol/L [facility] CALCIUM S/P/B 9.8 8.6 - 10.3 mg/dL [facility] TOTAL PROTEIN S/P/B 7.0 6.1 - 8.1 g/dL [facility] ALBUMIN S/P/B 4.8 3.6 - 5.1 g/dL [facility] GLOBULIN 2.2 1.9 - 3.7 g/dL (calc) [facility] ALBUMIN/GLOBULIN RATIO 2.2 1.0 - 2.5 (calc) [facility] BILIRUBIN TOTAL S/P/B 0.5 0.2 - 1.2 mg/dL [facility] ALKALINE PHOSPHATASE S/P/B 95 35 - 144 U/L [facility] AST 21 10 - 35 U/L [facility] ALT 33 9 - 46 U/L [facility] 08/23/2020 10:1 9 AM BOAT OUTFITTING SUPERVISOR 08/23/2020 10:20 AM BOAT OUTFITTING SUPERVISOR Narrative [facility] - 08/27/2020 2:36 PM BOAT OUTFITTING SUPERVISOR FASTING:YES PATIENT UNABLE TO VOID; ADVISED TO RETURN FOR COLLECTION. FASTING: YES us Mick Flowers MD LABORATORY Final Result [facility] [address] [place] [phone] * CBC W/AUTO DIFF (08/23/2020 10:19 AM BOAT OUTFITTING SUPERVISOR) WBC 3.9 3.8 - 10.8 Thousand/u L [facility] RBC 4.88 4.20 - 5.80 Million/uL [facility] HGB 15.6 13.2 - 17.1 g/dL [facility] HCT 44.5 38.5 - 50.0 % [facility] MCV 91.2 80.0 - 100.0 fL [facility] MCH 32.0 27.0 - 33.0 pg [facility] MCHC 35.1 32.0 - 36.0 g/dL [facility] RDW 13.0 11.0 - 15.0 % [facility] PLT 216 140 - 400 Thousand/u L [facility] MPV 10.9 7.5 - 12.5 fL [facility] ABS. NEUTROPHILS 2,223 1,500 - 7,800 cells/uL [facility] ABS. LYMPHOCYTES 1,100 850 - 3,900 cells/uL [facility] ABS. MONOCYTES 394 200 - 950 cells/uL [facility] ABS. EOSINOPHILS 152 15 - 500 cells/uL [facility] ABS. BASOPHILS 31 0 - 200 cells/uL [facility] SEG NEUTROPHILS 57 % [facility] LYMPHOCYTES 28.2 % [facility] MONOCYTES 10.1 % [facility] EOSINOPHILS 3.9 % [facility] BASOPHILS 0.8 % [facility] 08/23/2020 10:1 9 AM BOAT OUTFITTING SUPERVISOR 08/23/2020 10:20 AM BOAT OUTFITTING SUPERVISOR Narrative [facility] - 08/27/2020 2:36 PM BOAT OUTFITTING SUPERVISOR FASTING:YES PATIENT UNABLE TO VOID; ADVISED TO RETURN FOR COLLECTION. FASTING: YES Mick Flowers MD LABORATORY Final Result [facility] [address] [place] [address] documented in this encounter Visit Diagnoses Diagnosis Encounter for prostate cancer screening- Primary Special screening for malignant neoplasm of prostate Multiple sclerosis (CMS/HCC HHS/HCC) Multiple sclerosis Benign essential hypertension Essential hypertension, benign Mixed hyperlipidemia Malignant tumor of colon (CMS/HCC HHS/HCC) Malignant neoplasm of colon, unspecified site Anxiety Anxiety state, unspecified documented in this encounter Care Teams Cut Off Man Relationship Specialty Start Date End Date Mick Flowers MD [address] [place] [address] PCP - General 10/15/14 documented as of this encounter
--- OUTSIDE RECORDS SUMMARY | 2024-06-29 00:12 | XMS_ITS | Encounter Summary ---
Author Organization [facility] Address [address] [place] [address]. [place], [place] [address] [place] [address] Care Team Providers Care Monorail Helper Name Role Phone Mick Flowers MD Primary Care Provider [phone] Reason for Visit * Reason Onset Date Comments Refill Request 04/09/2019 Encounter Details Date Type Department Care Team (Late st Contact Info) Description 04/09/2019 Telephone [facility] Family & Internal Medicine [facility] [address] [place] [address] Mick Flowers MD [facility] [place] [address] Refill Request Social History Tobacco Use Types [...] Progress Notes * Kanchan Zuñiga MA - 04/09/2019 11:40 AM CDT The patient is calling for a refill on:losartan and atorvastatin Last visit with MICK FLOWERS in FAMILY PRACTICE was on: 10/07/2018 in [facility] No future appointments. [id number] - [place], [place] - [address] [facility] [phone] [facility] - [place], [place] - [address] [place], [place] [address] [facility] [address] Current Outpatient Medications: ??? ALPRAZOLAM 0.5 MG tablet, TAKE 1 TABLET(0.5 MG) BY MOUTH THREE TIMES DAILY NEEDED, Disp: 60 tablet, Rfl: 0 ??? Alprostadil, Vasodilator, (EDEX) 20 MCG Kit, 1 mL by Intracavernosal route. 10-30 minutes priorto intercourse, Disp: , Rfl: ??? atorvastatin 20 MG tablet, Take 1 tablet (20 mg total) by mouth nightly at bedtime., Disp: 90 tablet, Rfl: 3 ??? Dalfampridine (AMPYRA) 10 MG TABLET SR 12 HR, Take 10 mg by mouth 2 (two) times daily., Disp: ,Rfl: ??? felodipine ER 5 MG 24 hr tablet, Take 1 tablet (5 mg total) by mouth daily., Disp: 90 tablet, Rfl: 3 ??? hydrochlorothiazide 25 MG tablet, Take 1 tablet (25 mg total) by mouth every morning., Disp: 90tablet, Rfl: 3 ??? INSULIN SYRINGE .5CC/28G (B-D INS SYR MICROFINE .5CC/28G) 28G X 1/2 0.5 ML Misc, , Disp: , Rfl: ??? losartan 100 MG tablet, Take 1 tablet (100 mg total) by mouth daily., Disp: 90 tablet, Rfl: 3 ??? potassium chloride CR 20 MEQ Tab CR tablet, Take 1 tablet by mouth daily., Disp: 90 tablet, Rfl: 1 ??? urea 40 % Cream, Apply topically daily., Disp: , Rfl: documented in this encounter Plan of Treatment Upcoming Encounters Date Type Department Care Team (Late st Contact Info) Description 09/09/2024 10:00 AM CDT Office Visit [facility] Family & Internal Medicine - [address] [address] Mick Flowers MD [address] [place] [address] documented as of this encounter Visit Diagnoses Diagnosis Benign essential hypertension Essential hypertension, benign Hyperlipidemia Other and unspecified hyperlipidemia documented in this encounter Care Teams Monorail Helper Relationship Specialty Start Date End Date Mick Flowers MD [address] [place] [address] PCP - General 10/15/14 documented as of this encounter
--- OUTSIDE RECORDS SUMMARY | 2024-06-29 00:12 | XMS_ITS | Encounter Summary ---
Author Organization [facility] Address [address] [place] [address]. [place], [place] [address] [place] [address] Care Team Providers Care Multimedia Production Assistant Name Role Phone Mick Flowers MD Primary Care Provider [phone] Encounter Details Date Type Department Care Team (Latest Contact Info) Description 01/17/2018 Abstract [facility] Mick Flowers MD [facility] [place] [address] Social History Tobacco Use Types Packs/Day Years [...] Description 09/09/2024 10:00 AM CDT Office Visit [facility] Family & Internal Medicine [facility] [address] [place] [address] Mick Flowers MD [facility] [place] [address] documented as of this encounter Procedures Procedure Name Priority Date/Time Associated Diagnosis Comments COMPREHENSIVE METABOLIC PANEL Routine 01/17/2018 8:31 AM CDT CBC W/DIFF AUTOMATED Routine 01/17/2018 8:31 AM CDT documented in this encounter Results * CBC W/DIFF AUTOMATED (01/17/2018 8:31 AM CDT) Pathologist [facility] WBC 4.3 3.8 - 10.8 [facility] Comment:Result Comment: UNIT S: Thousand/uL Red Blood Cell Count 4.80 4.20 - 5.80 Million/uL [facility] HGB 15.1 13.2 - 17.1 g/dL [facility] HCT 43.5 38.5 - 50.0 % [facility] MCV 90.6 80.0 - 100.0 fL [facility] MCH (QHPE) 31.5 27.0 - 33.0 pg [facility] MCHC 34.7 32.0 - 36.0 g/dL [facility] RDW (QHPE) 12.9 11.0 - 15.0 % [facility] PLT 213 140 - 400 [facility] CONVERSION Comment:Result Comment: UNIT S: Thousand/uL MPV 10.8 7.5 - 12.5 fL [facility] ABS. NEUTROPHILS 2120 1500 - 7800 cells/uL [facility] ABS. LYMPHOCYTES 1376 850 - 3900 cells/uL [facility] ABS. MONOCYTES 378 200 - 950 cells/uL [facility] ABS. EOSINOPHILS 387 15 - 500 cells/uL [facility] ABS. BASOPHILS 39 0 - 200 cells/uL [facility] SEG NEUTROPHILS 49.3 % [facility] LYMPHOCYTES 32.0 % [facility] MONOCYTES 8.8 % [facility] EP[facility] CONVERSION EOSINOPHILS 9.0 % [facility] BASOPHILS 0.9 % [facility] CON[facility] Comment: Result Comment: Test Performed at: [facility] [address] [place], [place] ??[phone] ? JELLY MAYERS DO,MPH 01/17/2018 8:31 AM CDT 01/17/2018 8:31 AM CDT Narrative [facility] - 01/18/2018 3:00 AM CDT Result Communication: Call patient with results Simona H Nenita APNP LABORATORY Final Resul t [facility] * (ABNORMAL) COMPREHENSIVE METABOLIC PANEL (01/17/2018 8:31 AM CDT) [facility] GLUCOSE 127(H) 65 - 99 mg/dL [facility] Comment: Result Comment: ? Fasting reference interval For someone without known diabetes, a glucose value >125 mg/dL indicates that they may have diabetes and this should be confirmed with a follow-up test. BUN 15 7 - 25 mg/dL [facility] CREATININE S/P/B 0.82 0.70 - 1.33 mg/dL [facility] Comment: Result Comment: For patients >49 years of age, the reference limit for Creatinine is approximately 13% higher for people identified as -Nicaraguan. EGFR NON-AFR. AMER. 101 > OR = 60 [facility] Comment:Result Comment: UNIT S: mL/min/1.73m2 EGFR AFR. AMER. 117 > OR = 60 [facility] Comment:Result Comment: UNIT S: mL/min/1.73m2 BUN CREATININE RATIO NOT APPLICABLE 6 - 22 (calc) [facility] SODIUM S/P/B 137 135 - 146 mmol/L [facility] POTASSIUM S/P/B 4.2 3.5 - 5.3 mmol/L [facility] CHLORIDE S/P/B 101 98 - 110 mmol/L [facility] CO2 26 20 - 31 mmol/L [facility] CALCIUM S/P/B 9.7 8.6 - 10.3 mg/dL [facility] PROTEIN 6.7 6.1 - 8.1 g/dL [facility] ALBUMIN S/P/B 4.5 3.6 - 5.1 g/dL [facility] GLOBULIN 2.2 1.9 - 3.7 [facility] Comment:Result Comment: UNIT S: g/dL (calc) ALBUMIN/GLOBULIN RATIO 2.0 1.0 - 2.5 (calc) [facility] BILIRUBIN TOTAL (FLUID) 0.6 0.2 - 1.2 mg/dL [facility] ALK PHOS 96 40 - 115 U/L [facility] AST 25 10 - 35 U/L [facility] ALT 29 9 - 46 U/L [facility] Comment: Result Comment: Test Performed at: [facility] [address] ??[phone] ? JELLY MAYERS DO,MPH 01/17/2018 8:31 AM CDT 01/17/2018 8:31 AM CDT Narrative [facility] - 01/18/2018 3:00 AM CDT Result Communication: Call patient with results us [facility]AT[facility] Final Resul t [facility] documented in this encounter Visit Diagnoses Not on filedocumented in this encounter Care Teams Multimedia Production Assistant Relationship Specialty Start Date End Date Mick Flowers MD [address] [place] [address] PCP - General 10/15/14 documented as of this encounter
--- OUTSIDE RECORDS SUMMARY | 2024-06-29 00:12 | XMS_ITS | Encounter Summary ---
Author Organization [facility] Address [address] [place] [address]. [place], [place] [address] [place] [address] Care Team Providers Care Education Instructor Name Role Phone Mick Flowers MD Primary Care Provider [phone] Encounter Details Date Type Department Care Team (Latest Contact Info) Description 10/18/2018 Scan HEALTH INFO SRVCS Scanned, Documents Social [...] Group Family & Internal Medicine - [address] [phone] Mick Flowers MD [address] [place] [phone] documented as of this encounter Visit Diagnoses Not on filedocumented in this encounter Care Teams Education Instructor Relationship Specialty Start Date End Date Mick Flowers MD [address] [place] [address] PCP - General 10/15/14 documented as of this encounter
--- OUTSIDE RECORDS SUMMARY | 2024-06-29 00:12 | XMS_ITS | Encounter Summary ---
Author Organization [facility] Address [address] [place] [address]. [place], [place] [address] [place] [address] Care Team Providers Care Dipper And Baker Name Role Phone Mick Flowers MD Primary Care Provider [phone] Reason for Visit * Reason Comments Report (SCAN) Encounter Details Date Type Department Care Team (Latest Contact Info) Description 10/08/2018 Scan HEALTH INFO SRVCS Scanned, Documents Report (SCAN) Social History Tobacco Use Types Packs/Day [...] Medical Group Family & Internal Medicine [address] [phone] Mick Flowers MD [address] [place] [address] documented as of this encounter Visit Diagnoses Not on filedocumented in this encounter Care Teams Dipper And Baker Relationship Specialty Start Date End Date Mick Flowers MD [address] [place] [address] PCP - General 10/15/14 documented as of this encounter
--- OUTSIDE RECORDS SUMMARY | 2024-06-29 00:12 | XMS_ITS | Encounter Summary ---
Author Organization [facility] Address [address] [place] [address]. [place], [place] [address] [place] [address] Care Team Providers Care Window Trimmer Apprentice Name Role Phone Mick Flowers MD Primary Care Provider [phone] Reason for Visit * Reason Onset Date Comments Orders 05/01/2019 Encounter Details Date Type Department Care Team (Late st Contact Info) Description 05/01/2019 Telephone [facility] Family & Internal Medicine [facility] [address] [place] [address] Mick Flowers MD [address] [place] [address] Orders Social History Tobacco Use Types Packs/Day [...] Progress Notes * Mick Flowers MD - 05/21/2019 3:53 PM CST Cholesterol is slightly elevated, diet and exercise Rx. Other labs are good. MATIC BUFFING WHEEL FORMER * Josi Hassan MA - 05/01/2019 4:23 PM CST Orders done and mailed to patient. MATIC BUFFING WHEEL FORMER * Mick Flowers MD - 05/01/2019 4:19 PM CST 6 month lipids. MATIC BUFFING WHEEL FORMER * Kanchan Zuñiga MA - 05/01/2019 9:10 AM CST Patient is requesting labs to be ordered , what would you like ordered? Please mail orders to patients address on file. MATIC BUFFING WHEEL FORMER documented in this encounter Plan of Treatment Upcoming Encounters Date Type Department Care Team (Late st Contact Info) Description 09/09/2024 10:00 AM CDT Office Visit [facility] Medical [facility] Family & Internal Medicine - [place] [address] [place] [phone] Mick Flowers MD [address] [place] [address] documented as of this encounter Procedures Procedure Name Priority Date/Time Associated Diagnosis Comments COMPREHENSIVE METABOLIC PANEL Routine 05/16/2019 8:33 AM AUTOMATIC BUFFING WHEEL FORMER Benign essential hypertension Mixed hyperlipidemia LIPID PANEL Routine 05/16/2019 8:33 AM AUTOMATIC BU[employer]ING WHE[employer] FORMER Benign essential hypertension Mixed hyperlipidemia CK (CPK) Routine 05/16/2019 8:33 AM AUTOMATIC BU[employer]ING WHE[employer] FORMER Benign essential hypertension Mixed hyperlipidemia documented in this encounter Results * CK (CPK) (05/16/2019 8:33 AM AUTOMATIC BUFFING WHEEL FORMER) TOTAL CK 178 44 - 196 U/L [facility] 05/16/2019 8:33 AM AUTOMATIC BU[employer]ING WHEEL FORMER 05/16/2019 8:34 AM AUTOMATIC BU[employer]ING WHEEL FORMER Narrative [facility] - 05/17/2019 5:45 AM AUTOMATIC BUFFING WHEEL FORMER FASTING:YES FASTING: YES Resulting Agency Comment Performing Organization Information: ?Site ID: [id number] ?Name: Bharathi Denney ?Address: [facility] [place] [address] ?Director: Momo Bates D.O., MPH Mick Flowers MD LABORATORY Final Result [facility] * COMPREHENSIVE METABOLIC PANEL (05/16/2019 8:33 AM AUTOMATIC BUFFING WHEEL FORMER) [facility] GLUCOSE 92 65 - 99 mg/dL [facility] Comment: ? Fasting reference interval BUN 13 7 - 25 mg/dL [facility] CREATININE S/P/B 0.89 0.70 - 1.33 mg/dL [facility] Comment: For patients >49 years of age, the reference limit for Creatinine is approximately 13% higher for people identified as -[place]. EGFR NON-AFR. AMER. 97 > OR = 60 mL/min/1 .73m2 [facility] EGFR AFR. AMER. 112 > OR = 60 mL/min/1 .73m2 [facility] BUN CREATININE RATIO NOT APPLICABLE (calc) [facility] SODIUM S/P/B 138 135 - 146 mmol/L [facility] POTASSIUM S/P/B 4.3 3.5 - 5.3 mmol/L [facility] CHLORIDE S/P/B 101 98 - 110 mmol/L [facility] CO2 28 20 - 32 mmol/L [facility] CALCIUM S/P/B 9.7 8.6 - 10.3 mg/dL [facility] TOTAL PROTEIN S/P/B 6.7 6.1 - 8.1 g/dL [facility] ALBUMIN S/P/B 4.4 3.6 - 5.1 g/dL [facility] GLOBULIN 2.3 1.9 - 3.7 g/dL (calc) [facility] ALBUMIN/GLOBULIN RATIO 1.9 1.0 - 2.5 (calc) [facility] BILIRUBIN TOTAL (FLUID) 0.6 0.2 - 1.2 mg/dL [facility] ALK PHOS 99 40 - 115 U/L [facility] AST 25 10 - 35 U/L [facility] ALT 32 9 - 46 U/L [facility] 05/16/2019 8:33 AM AUTOMAT[employer] BU[employer] WHE[employer] FORMER 05/16/2019 8:34 AM AUTOMATIC BUFFING WHEEL FORMER Narrative [facility] - 05/17/2019 5:45 AM AUTOMATIC BU[employer]ING WHEEL FORMER FASTING:YES FASTING: YES Resulting Agency Comment Performing Organization Information: ?Site ID: [place] ?Name: Bharathi Denney ?Address: [address] [place] [address] ?Director: Momo Bates D.O., MPH Mick Flowers MD LABORATORY Final Result [facility] * (ABNORMAL) LIPID PANEL (05/16/2019 8:33 AM AUTOMATIC BUFFING WHEEL FORMER) CHOLESTEROL 210(H) <200 mg/dL [facility] HDL 63 >40 mg/dL [facility] TRIGLYCERIDES 74 <150 mg/dL [facility] LDL (CALCULATED) 130(H) mg/dL (calc) [facility] Comment: Reference range: <100 Desirable range <100 mg/dL for primary prevention; ?? <70 mg/dL for patients with CHD or diabetic patients with > or = 2 CHD risk factors. LDL-C is now calculated using the [employer] calculation, which is a validated novel method providing better accuracy than the Friedewald equation in the estimation of LDL-C. Sergey SS et al. MAKENZIE. 2013;310(19): 6670-8773 (http://education.[employer] Edge/faq/YWQ521) CHOL/HDL RATIO 3.3 <5.0 (calc) [facility] NON HDL CHOLESTEROL 147(H) <130 mg/dL (calc) [facility] Comment: For patients with diabetes plus 1 major ASCVD risk factor, treating to a non-HDL-C goal of <100 mg/dL (LDL-C of <70 mg/dL) is considered a therapeutic option. 05/16/2019 8:33 AM AUTOMATIC BUFFING WHEEL FORMER 05/16/2019 8:34 AM AUTOMATIC BUFFING WHEEL FORMER Narrative [facility] - 05/17/2019 5:45 AM AUTOMATIC BU[employer]ING WHEEL FORMER FASTING:YES FASTING: YES Resulting Agency Comment Performing Organization Information: ?Site ID: [place] ?Name: Bharathi Denney ?Address: [address] [place] [address] ?Director: Momo Bates D.O., MPH us Mick Flowers MD LABORATORY Final Result [facility] documented in this encounter Visit Diagnoses Diagnosis Benign essential hypertension- Primary Essential hypertension, benign Mixed hyperlipidemia documented in this encounter Care Teams Window Trimmer Apprentice Relationship Specialty Start Date End Date Mick Flowers MD [address] [place] [address] PCP - General 10/15/14 documented as of this encounter
--- OUTSIDE RECORDS SUMMARY | 2024-06-29 00:12 | XMS_ITS | Encounter Summary ---
Author Organization [facility] Address [facility]. [place], [place] [address] [place] [address] Care Team Providers Care Typing Section Chief Name Role Phone Mick Flowers MD Primary Care Provider [phone] Reason for Visit * Reason Comments Acid Reflux burning feeling in c hest after eating, increased recently within the last few weeks Follow Up Multiple Sclerosis Hypertension BP does seem to be f luctuating at home. Patient also notes medication was changed d/t swelling in anles and the change in meds don't seem to control his BP as well as before Erectile Dysfunction Eczema Hyperlipidemia Anxiety Edema Encounter Details Date Type Department Care Team (Late st Contact Info) Description 10/07/2018 10:40 AM CDT Office Visit [facility] Family & Internal Medicine - [address] [phone] Mick Flowers MD [address] [place] [address] Acid Reflux (burning feeling in chest after eating, increased recently within the last few weeks); Follow Up; Multiple Sclerosis; Hypertension (BP does seem to be fluctuating at home. Patient also notes medication was changed d/t swelling in anles and the change in meds don't seem to control his BP as well as before); Erectile Dysfunction; Eczema; Hyperlipidemia; Anxiety; Edema Social History Tobacco Use Types Packs/Day Years [...] Sign Reading Time Taken Comments Blood Pressure 133/97 10/07/2018 11:34 AM CDT Pulse 60 10/07/2018 11:34 AM CDT Temperature - - Respiratory Rate 12 10/07/2018 11:34 AM CDT Oxygen Saturation 99% 10/07/2018 11:34 AM CDT Inhaled Oxygen Concentration - - Weight 81.9 kg (180 lb 9.6 oz) 10/07/2018 11:34 AM CDT Height 180.3 cm (5' 11 ) 10/07/2018 11:34 AM CDT Body Mass Index 25.19 10/07/2018 11:34 AM CDT documented in this encounter Patient Instructions * Patient Instructions* Mick Flowers MD - 10/07/2018 10:40 AM CDT Stop FUROSEMIDE and start on Hydrochlorothiazide 25mg daily. Check blood pressure daily for 3-4 weeks to make sure blood pressure is getting controlled. Call if BP is >130/>90. documented in this encounter Progress Notes * Mick Flowers MD - 10/07/2018 10:40 AM CDT Images from the original note were not included. Office Progress Note Reason for Visit: Acid Reflux (burning feeling in chest after eating, increased recently within the last few weeks); Follow Up; Multiple Sclerosis; Hypertension (BP does seem to be fluctuating at home. Patient also notes medication was changed d/t swelling in anles and the change in meds don't seem to control his BPas well as before); Erectile Dysfunction; Eczema; Hyperlipidemia; Anxiety; and Edema History of Present Illness: He is here today for routine follow-up. Hypertension: Patient is compliant with his medications without medication side effects. He has been checking his blood pressure regularly and has noticed that his blood pressure has been high. He stopped hydrochlorothiazide and change Lasix due to increased lower extremity edema but he feels that this has not done much for his edema which he has only when he stands for long periods of time and his blood pressure has met. He is wondering if we should switch back to the other diuretic or maybe switch to a different medication. He denies chest pain, shortness of breath or headaches. Denies lightheadedness or dizziness. Upper lipidemia: Well-controlled on current medications. Patient is compliant with his medications without medication side effects. He denies muscle aches or joint pains. Anxiety: Well-controlled with current as needed medications. Patient denies panic attacks. Erectile dysfunction: Patient uses 80 medications on a as needed basis and is well controlled with this. Multiple sclerosis: Patient is doing well has not had any flares. He is following with neurology willy regular basis. He has had no medication changes for quite some time . ROS: Review of Systems Constitutional: Negative for [...] Prior to Visit Medication Sig ??? ALPRAZolam 0.5 MG tablet Take 1 tablet (0.5 mg total) by mouth 3 (three) times daily as needed. ??? Alprostadil, Vasodilator, (EDEX) 20 MCG Kit 1 mL by Intracavernosal route. 10-30 minutes prior to intercourse ??? ATORVASTATIN 20 MG tablet TAKE 1 TABLET DAILY (NEED APPOINTMENT) (Patient taking differently: TAKE 1 TABLET DAILY) ??? Dalfampridine (AMPYRA) 10 MG TABLET SR 12 HR Take 10 mg by mouth 2 (two) times daily. ??? felodipine ER 5 MG 24 hr tablet Take 1 tablet (5 mg total) by mouth daily. ??? INSULIN SYRINGE .5CC/28G (B-D INS SYR MICROFINE .5CC/28G) 28G X 1/2 0.5 ML Misc ??? losartan 100 MG tablet Take 1 tablet by mouth daily. ??? potassium chloride CR 20 MEQ Tab CR tablet TK 1 T PO D ??? urea 40 % Cream Apply topically daily. No current facility-administered medications on file [...] resource strain: Not on file ??? Food insecurity: Worry: Not on file Inability: Not on file ??? Transportation needs: Medical: Not on file Non-medical: Not on file Tobacco Use ??? Smoking status: Never Smoker ??? Smokeless tobacco: Never Used Substance and Sexual Activity ??? Alcohol use: Yes Frequency: 4 or more times a week Drinks per session: 3 or 4 Binge frequency: Weekly ??? Drug use: No ??? Sexual activity: Yes Partners: Female Lifestyle ??? Physical activity: Days per week: Not on file Minutes per session: Not on file ??? Stress: Not on file Relationships ??? Social connections: Talks on phone: Not on file Gets together: Not on file Attends latter-day service: Not on file Active member of club or organization: Not on file Attends meetings of clubs or organizations: Not on file Relationship status: Not on file ??? Intimate partner violence: Fear of current or ex partner: Not [...] ear normal. Left Ear: External ear normal. Mouth/Throat: Oropharynx is clear and moist. Eyes: Conjunctivae and EOM are normal. Pupils are equal, round, and reactive to light. Cardiovascular: Normal rate, regular rhythm and normal heart sounds. Exam reveals no gallop and no friction rub. No murmur heard. Pulmonary/Chest: Effort normal and breath sounds normal. No respiratory distress. He has no wheezes. He has no rales. Abdominal: Soft. Bowel sounds are normal. He exhibits no distension and no mass. There is no tenderness. There is no rebound and no guarding. Musculoskeletal: Normal range of motion. He exhibits no edema or deformity. Neurological: He is alert and oriented to person, place, and time. He has normal reflexes. No cranial nerve deficit. He exhibits normal muscle tone. Coordination and gait normal. Skin: Skin is warm and dry. No rash noted. Psychiatric: He has a normal mood and affect. Judgment normal. Nursing note and vitals reviewed. Filed Vitals: 10/07/18 1134 BP: (!) 133/97 Pulse: 60 Resp: 12 SpO2: 99% Weight: 81.9 kg (180 lb 9.6 oz) Height: 5' 11 (1.803 m) Diagnoses/Impression: 1. Benign essential hypertension hydrochlorothiazide 25 MG tablet Chronic 2. Mixed hyperlipidemia Chronic 3. Anxiety Chronic 4. Erectile dysfunction, unspecified erectile dysfunction type Chronic 5. Multiple sclerosis (CMS/HCC) Chronic 6. Neurogenic bladder Recommendations and Plan: 1. Benign essential hypertension Blood pressure has been elevated, stop furosemide and start on HCTZ to see if this will control hisedema and get better control of his blood pressure. - hydrochlorothiazide 25 MG tablet; Take 1 tablet (25 mg total) by mouth every morning. Dispense: 90 tablet; Refill: 3 2. Mixed hyperlipidemia Well controlled on current medications 3. Anxiety Stable on current medications 4. Erectile dysfunction, unspecified erectile dysfunction type Stable. 5. Multiple sclerosis (CMS/HCC) Well controlled on current medications 6. Neurogenic bladder Stable. Orders Placed This Encounter ??? Dalfampridine (AMPYRA) 10 MG TABLET SR 12 HR ??? INSULIN SYRINGE .5CC/28G (B-D INS SYR MICROFINE .5CC/28G) 28G X 1/2 0.5 ML Misc ??? Alprostadil, Vasodilator, (EDEX) 20 MCG Kit ??? DISCONTD: furosemide 20 MG tablet ??? losartan 100 MG tablet ??? potassium chloride CR 20 MEQ Tab CR tablet ??? urea 40 % Cream ??? hydrochlorothiazide 25 MG tablet Cannot display discharge medications since this is not an admission. PCP: MICK FLOWERS MD 10/08/2018 documented in this encounter Plan of Treatment Upcoming Encounters Date Type Department Care Team (Late st Contact Info) Description 09/09/2024 10:00 AM CDT Office Visit [facility] Medical Group Family & Internal Medicine [address] [phone] Mick Flowers MD [address] [place] [address] documented as of this encounter Visit Diagnoses Diagnosis Benign essential hypertension- Primary Essential hypertension, benign Mixed hyperlipidemia Anxiety Anxiety state, unspecified Erectile dysfunction, unspecified erectile dysfunction type Multiple sclerosis ([facility]) Multiple sclerosis Neurogenic bladder Neurogenic bladder, NOS documented in this encounter Care Teams Typing Section Chief Relationship Specialty Start Date End Date Mick Flowers MD [address] [place] [address] PCP - General 10/15/14 documented as of this encounter
--- OUTSIDE RECORDS SUMMARY | 2024-06-29 00:12 | XMS_ITS | Encounter Summary ---
Author Organization [facility] Address [address] [place] [address]. [place], [place] [address] [place] [address] Care Team Providers Care Optical Instrument Specialist Name Role Phone Mick Flowers MD Primary Care Provider [phone] Reason for Visit * Reason Onset Date Comments Refill Request 04/11/2019 Encounter Details Date Type Department Care Team (Late st Contact Info) Description 04/11/2019 Telephone [facility] Family & Internal Medicine [facility] [address] [place] [address] Mick Flowers MD [facility] [place] [address] Refill Request Social History Tobacco Use Types [...] Progress Notes * Kanchan Zuñiga MA - 04/11/2019 10:55 AM CDT The patient is calling for a refill on:Felodipine Last visit with MICK FLOWERS in FAMILY PRACTICE was on: 10/07/2018 in [facility] No future appointments. [id number] - [place], [place] - [address] [facility] [address] [facility] - [place], [place] - [address] [place] [address] [address] [facility] [address] Current Outpatient Medications: ??? ALPRAZOLAM 0.5 MG [...] [facility] Family & Internal Medicine - [address] [phone] Mick Flowers MD [address] [place] [address] documented as of this encounter Visit Diagnoses Diagnosis Hypertension Unspecified essential hypertension documented in this encounter Care Teams Optical Instrument Specialist Relationship Specialty Start Date End Date Mick Flowers MD [address] [place] [address] PCP - General 10/15/14 documented as of this encounter
--- OUTSIDE RECORDS SUMMARY | 2024-06-29 00:12 | XMS_ITS | Encounter Summary ---
Author Organization [facility] Address [address] [place] [address]. [place], [place] [address] [place] [address] Care Team Providers Care Commodity Buyer Name Role Phone Mick Flowers MD Primary Care Provider [phone] Encounter Details Date Type Department Care Team (Latest Contact Info) Description 10/13/2019 Scan HEALTH INFO SRVCS Scanned, Documents Social [...] Medical Group Family & Internal Medicine - [address] [phone] Mick Flowers MD [address] [place] [address] documented as of this encounter Visit Diagnoses Not on filedocumented in this encounter Care Teams Commodity Buyer Relationship Specialty Start Date End Date Mick Flowers MD [address] [place] [address] PCP - General 10/15/14 documented as of this encounter
--- OUTSIDE RECORDS SUMMARY | 2024-06-29 00:12 | XMS_ITS | Encounter Summary ---
Author Organization [facility] Address [address] [place] [address]. [place], [place] [address] [place] [address] Care Team Providers Care Welt Rougher Name Role Phone Mick Flowers MD Primary Care Provider Reason for Visit * Reason Onset Date Comments Billing Issue 08/11/2019 Encounter Details Date Type Department Care Team (Late st Contact Info) Description 08/11/2019 Telephone [facility] Family & Internal Medicine [facility] [address] [place] [phone] Mick Flowers MD [facility] [place] [address] Billing Issue Social History Tobacco Use Types Packs/Day Years [...] as of this encounter Progress Notes * Liban Harris - 08/11/2019 2:16 PM CST Pt dropped [facility] bill off at [place] location for review. It appears patient is being charged full amount for the 25-OH Vitamin D-3 lab with a DOS of 09/03/2018. After speaking to Dr. Flowers I contacted [facility] and requested a dx code for MS be added onto this lab. This is an appropriate code to add and should show the test is medically necessary. The pt should call [facility] and let them know he is working on getting the coding corrected so they donot send his bill to collections before it is processed through the patient's insurance again. I amunable to put a hold on the bill since it is an outside organization. [employer] documented in this encounter Plan of Treatment Upcoming Encounters Date Type Department Care Team (Late st Contact Info) Description 09/09/2024 10:00 AM CDT Office Visit [facility] Group Family & Internal Medicine - [address] [phone] Mick Flowers MD [address] [place] [address] documented as of this encounter Visit Diagnoses Not on filedocumented in this encounter Care Teams Welt Rougher Relationship Specialty Start Date End Date Mick Flowers MD [address] [place] [address] PCP - General 10/15/14 documented as of this encounter
--- OUTSIDE RECORDS SUMMARY | 2024-06-29 00:12 | XMS_ITS | Encounter Summary ---
Author Organization [facility] Address [address] [place] [address]. [place], [place] [address] [place] [address] Care Team Providers Care Security Researcher Name Role Phone Mick Flowers MD Primary Care Provider [phone] Encounter Details Date Type Department Care Team (Late st Contact Info) Description 09/03/2018 Orders Only [facility] [address] [phone] Mick Flowers MD [address] [place] [address] [phone] Social History Tobacco Use Types Packs/Day Years Used Date Smoking Tobacco: Never Sex and Gender Information Value Date Recorded Sex Assigned at Male 10/07/2018 11:33 AM CDT Legal Sex Male 9:27 PM CDT Gender Identity Male 10/07/2018 11:33 AM CDT Sexual Orientation Straight 10/07/2018 11 :33 AM CDT documented as of this encounter Progress Notes * Mick Flowers MD - 09/09/2018 2:30 PM CDT Labs are reviewed and are normal. PSA is normal also, it is in a separate report for some reason. documented in this encounter Plan of Treatment Upcoming Encounters Date Type Department Care Team (Late st Contact Info) Description 09/09/2024 10:00 AM CDT Office Visit [facility] [address] [phone] Mick Flowers MD [address] [place] [address] documented as of this encounter Procedures Procedure Name Priority Date/Time Associated Diagnosis Comments URINALYSIS COMPLETE W/RFX TO CULTURE Routine 09/03/2018 7:43 AM CDT TSH W/REFLEX Routine 09/03/2018 7:43 AM CDT VITAMIN D, 25 OH TOTAL Routine 9 7:43 AM CDT COMPREHENSIVE METABOLIC PANEL Routine 09/03/2018 7:43 AM CDT LIPID PANEL Routine 09/03/2018 7:43 AM CDT CBC W/DIFF AUTOMATED Routine 09/03/2018 7:43 AM CDT URIC ACID BLOOD Routine 09/03/2018 7:43 AM CDT documented in this encounter Results * VITAMIN D, 25 OH (09/03/2018 7:43 AM CDT) VITAMIN D 25 HYDROXY TOTAL S/P/B 45 30 - 100 ng/mL [facility] Comment: Vitamin D Status ? 25-OH Vitamin D: Deficiency: ?<20 ng/mL Insufficiency: ? 20 - 29 ng/mL Optimal: ? > or = 30 ng/mL For 25-OH Vitamin D testing on patients on D2-supplementation and patients for whom quantitation of D2 and D3 fractions is required, the QuestAssureD(TM) 25-OH VIT D, (D2,D3), LC/MS/MS is recommended: order code 48962 (patients >2yrs). For more information on this test, go to: http://education.Yulex.12Return/faq/TGQ586 (This link is being provided for informational/educational purposes only.) 09/03/2018 7:43 AM CDT 09/05/2018 12:04 AM CDT Narrative [facility] - 09/05/2018 7:45 AM CDT FASTING:YES FASTING: YES Resulting Agency Comment Performing Organization Information: ?Site ID: [place] ?Name: [facility] ?Address: [address] [place] [address] [place] [address] ?Director: Momo Bates D.O. MPH Mick Flowers MD LABORATORY Final Result Performing Organization Address City/[facility] Co de Phone Number [facility] * TSH W/REFLEX (09/03/2018 7:43 AM CDT) TSH 4.26 0.40 - 4.50 mIU/L [facility] 09/03/2018 7:43 AM CDT 09/05/2018 12:04 AM CDT Narrative [facility] - 09/05/2018 7:45 AM CDT FASTING:YES FASTING: YES Resulting Agency Comment Performing Organization Information: ?Site ID: PA ?Name: [facility] ?Address: [address] [place] [address] [place] [address] ?Director: oMmo Bates D.O. MPH Mick Flowers MD LABORATORY Final Result Performing Organization Address [facility]/ZIP Co de Phone Number [facility] * CBC W/DIFF AUTOMATED (09/03/2018 7:43 AM CDT) WBC 4.3 3.8 - 10.8 Thousand/u L [facility] RBC 5.14 4.20 - 5.80 Million/uL [facility] HGB 15.9 13.2 - 17.1 g/dL [facility] HCT 47.5 38.5 - 50.0 % [facility] MCV 92.4 80.0 - 100.0 fL [facility] MCH (QHPE) 30.9 27.0 - 33.0 pg [facility] MCHC 33.5 32.0 - 36.0 g/dL [facility] RDW (QHPE) 13.0 11.0 - 15.0 % [facility] PLT 212 140 - 400 Thousand/u L [facility] MPV 11.3 7.5 - 12.5 fL [facility] ABS. NEUTROPHILS 2,060 1,500 - 7,800 cells/uL [facility] ABS. LYMPHOCYTES 1,488 850 - 3,900 cells/uL [facility] ABS. MONOCYTES 447 200 - 950 cells/uL [facility] ABS. EOSINOPHILS 267 15 - 500 cells/uL [facility] ABS. BASOPHILS 39 0 - 200 cells/uL [facility] SEG NEUTROPHILS 47.9 % [facility] LYMPHOCYTES 34.6 % [facility] MONOCYTES 10.4 % [facility] EOSINOPHILS 6.2 % [facility] BASOPHILS 0.9 % [facility] 09/03/2018 7:43 AM CDT 09/05/2018 12:04 AM CDT Narrative [facility] - 09/05/2018 7:45 AM CDT FASTING:YES FASTING: YES Resulting Agency Comment Performing Organization Information: ?Site ID: PA ?Name: [facility] ?Address: [address] [place] [phone] ?Director: Momo Bates D.O., MPH us Mick Flowers MD LABORATORY Final Result [facility] * URINALYSIS COMPLETE W/RFX TO CULTURE (09/03/2018 7:43 AM CDT) COLOR (U) YELLOW YELLOW [facility] APPEARANCE SEMEN CLEAR CLEAR [facility] SPECIFIC GRAVITY (U) 1.015 1.001 - 1.035 [facility] PH (U) 6.5 5.0 - 8.0 [facility] URINE GLUCOSE NEGATIVE NEGATIVE [facility] BILIRUBIN (U) NEGATIVE NEGATIVE [facility] KETONE (U) NEGATIVE NEGATIVE [facility] BLOOD (U) NEGATIVE NEGATIVE [facility] PROTEIN (U) NEGATIVE NEGATIVE [facility] NITRITES NEGATIVE NEGATIVE [facility] LEUKOCYTES (U) NEGATIVE NEGATIVE [facility] WBC NONE SEEN < OR = 5 /HPF [facility] RBC/HPF NONE SEEN < OR = 2 /HPF [facility] POLYVALENT BONITA NONE SEEN < OR = 5 /HPF [facility] BACTERIA (U) NONE SEEN NONE SEEN /HPF [facility] HYALINE CASTS NONE SEEN NONE SEEN /LPF [facility] REFLEX URINE CULTURE: NO CULTURE INDICATED [facility] 09/03/2018 7:43 AM CDT 09/05/2018 12:04 AM CDT Narrative [facility] - 09/05/2018 7:45 AM CDT FASTING:YES FASTING: YES Resulting Agency Comment Performing Organization Information: ?Site ID: [place] ?Name: [facility] ?Address: [address] [place], [place] [address] [address] ?Director: Momo Bates D.O., MPH Mick Flowers MD URINE ORDERABLES Final Result [facility] * COMPREHENSIVE METABOLIC PANEL (09/03/2018 7:43 AM CDT) GLUCOSE 99 65 - 99 mg/dL [facility] Comment: ? Fasting reference interval BUN 16 7 - 25 mg/dL [facility] CREATININE S/P/B 0.85 0.70 - 1.33 mg/dL [facility] Comment: For patients >49 years of age, the reference limit for Creatinine is approximately 13% higher for people identified as -Cymro. EGFR NON-AFR. AMER. 99 > OR = 60 mL/min/1 .73m2 [facility] EGFR AFR. AMER. 115 > OR = 60 mL/min/1 .73m2 [facility] BUN CREATININE RATIO NOT APPLICABLE 6 - 22 (calc) [facility] SODIUM S/P/B 139 135 - 146 mmol/L [facility] POTASSIUM S/P/B 4.3 3.5 - 5.3 mmol/L [facility] CHLORIDE S/P/B 106 98 - 110 mmol/L [facility] CO2 23 20 - 32 mmol/L [facility] CALCIUM S/P/B 9.6 8.6 - 10.3 mg/dL [facility] TOTAL PROTEIN S/P/B 6.8 6.1 - 8.1 g/dL [facility] ALBUMIN S/P/B 4.4 3.6 - 5.1 g/dL [facility] GLOBULIN 2.4 1.9 - 3.7 g/dL (calc) [facility] ALBUMIN/GLOBULIN RATIO 1.8 1.0 - 2.5 (calc) [facility] BILIRUBIN TOTAL (FLUID) 0.6 0.2 - 1.2 mg/dL [facility] ALK PHOS 112 40 - 115 U/L [facility] AST 25 10 - 35 U/L [facility] ALT 41 9 - 46 U/L [facility] 09/03/2018 7:43 AM CDT 09/05/2018 12:04 AM CDT Narrative [facility] - 09/05/2018 7:45 AM CDT FASTING:YES FASTING: YES Resulting Agency Comment Performing Organization Information: ?Site ID: [place] ?Name: [facility] ?[facility] [address] [facility] [place] [address] ?Director: Momo Bates D.O., MPH Mick Flowers MD LABORATORY Final Result [facility] * URIC ACID BLOOD (09/03/2018 7:43 AM CDT) URIC ACID 6.0 4.0 - 8.0 mg/dL [facility] Comment: Therapeutic target for gout patients: <6.0 mg/dL ?? 09/03/2018 7:43 AM CDT 09/05/2018 12:04 AM CDT Narrative [facility] - 09/05/2018 7:45 AM CDT FASTING:YES FASTING: YES Resulting Agency Comment Performing Organization Information: ?Site ID: [place] ?Name: [facility] ?Address: [address] [place] [phone] ?Director: Momo Bates D.O., MPH us Mick Flowers MD LABORATORY Final Result [facility] * (ABNORMAL) LIPID PANEL (09/03/2018 7:43 AM CDT) CHOLESTEROL 193 <200 mg/dL [facility] HDL 62 >40 mg/dL [facility] TRIGLYCERIDES 122 <150 mg/dL [facility] LDL (CALCULATED) 108(H) mg/dL (calc) [facility] Comment: Reference range: <100 Desirable range <100 mg/dL for primary prevention; ?? <70 mg/dL for patients with CHD or diabetic patients with > or = 2 CHD risk factors. LDL-C is now calculated using the Sergey-Franklin calculation, which is a validated novel method providing better accuracy than the Friedewald equation in the estimation of LDL-C. Sergey SOTO et al. MAKENZIE. 2013;310(19): 7965-2941 (http://education.KustomNote/faq/ILI679) CHOL/HDL RATIO 3.1 <5.0 (calc) [facility] NON HDL CHOLESTEROL 131(H) <130 mg/dL (calc) [facility] Comment: For patients with diabetes plus 1 major ASCVD risk factor, treating to a non-HDL-C goal of <100 mg/dL (LDL-C of <70 mg/dL) is considered a therapeutic option. 09/03/2018 7:43 AM CDT 09/05/2018 12:04 AM CDT Narrative [facility] - 09/05/2018 7:45 AM CDT FASTING:YES FASTING: YES Resulting Agency Comment Performing Organization Information: ?Site ID: PA ?Name: [facility] ?Address: [address] [place] [phone] ?Director: Momo Bates D.O., MPH Mick Flowers MD LABORATORY Final Result [facility] documented in this encounter Visit Diagnoses Not on filedocumented in this encounter Care Teams Security Researcher Relationship Specialty Start Date End Date Mick Flowers MD [address] [place] [address] PCP - General 10/15/14 documented as of this encounter
--- OUTSIDE RECORDS SUMMARY | 2024-06-29 00:12 | XMS_ITS | Encounter Summary ---
Author Organization [facility] Address [address] [place] [address]. [place], [place] [address] [place] [address] Care Team Providers Care Souvenir And Novelty Maker Name Role Phone Mick Flowers MD Primary Care Provider [phone] Encounter Details Date Type Department Care Team (Latest Contact Info) Description 10/18/2017 Abstract [facility] Mick Flowers MD [address] [place] [address] Social History Tobacco Use Types Packs/Day Years Used Date Smoking Tobacco: Never Sex and Gender Information Value Date Recorded Sex Assigned at Male 10/07/2018 11:33 AM CDT Legal Sex Male 9:27 PM CDT Gender Identity Male 10/07/2018 11:33 AM CDT Sexual Orientation Straight 10/07/2018 11 :33 AM CDT documented as of this encounter Progress Notes * Generic Conversion MD Denise - 10/18/2017 3:20 PM CDT Message Recorded as Task Date: 10/25/2017 02:40 PM, Created By: Umu Marcano Task Name: Medical Complaint Callback Assigned To: [facility] Kristie Regarding Patient: Doc Emery, Status: In Progress Comment: Umu Marcano - 25 Oct 2017 2:40 PM TASK CREATED Patient called concerned about his recent lab results and it showing for the last couple of times high on the Glucose test. He wants to know what pre- diabetic things he should do? # [phone] Mick Flowers - 25 Oct 2017 4:42 PM TASK REASSIGNED: Previously Assigned To Mick Flowers We can check a HgA1C to see what the average is for the past 90 days. Abbie Medina - 26 Oct 2017 8:25 AM TASK IN PROGRESS AdamAbbie - 26 Oct 2017 8:26 AM TASK EDITED [facility] Gela Solo - 26 Oct 2017 12:11 PM TASK EDITED Patient informed, lab order mailed to patient. Plan 1. ALPRAZolam 0.5 MG Oral Tablet; TAKE 1 TABLET BY MOUTH THREE TIMES DAILY NEEDED Rx By: Simona Gutierres; Dispense: 10 Days ; #:30 Tablet; Refill: 0; For: Anxiety; KYLE = N; Verified Transmission to [facility] [id number]; Msg to Pharmacy: [phone] 2. QU-HEMOGLOBIN A1C 496; Status:Hold For - Manual Activation; Requested for:[id number]; Perform:[facility]; Due:25Nov2017;Ordered; For:Elevated fasting glucose; Ordered By:Mick Flowers; Signatures Electronically signed by : Gela Solo, ; Oct 26 2017 12:12PM TRAIN CLERK (Author) documented in this encounter Plan of Treatment Upcoming Encounters Date Type Department Care Team (Late st Contact Info) Description 09/09/2024 10:00 AM CDT Office Visit [facility] Family & Internal Medicine [address] [phone] Mick Flowers MD [address] [place] [address] documented as of this encounter Visit Diagnoses Not on filedocumented in this encounter Care Teams Souvenir And Novelty Maker Relationship Specialty Start Date End Date Mick Flowers MD [address] [place] [address] PCP - General 10/15/14 documented as of this encounter
--- OUTSIDE RECORDS SUMMARY | 2024-06-29 00:12 | XMS_ITS | Encounter Summary ---
Author Organization [facility] Address [address] [place] [address]. [place], [place] [address] [place] [address] Care Team Providers Care Technician Assistant Name Role Phone Mick Flowers MD Primary Care Provider [phone] Reason for Visit * Reason Comments Follow Up Anxiety Hypertension Hyperlipidemia Multiple Sclerosis Patient would like t o talk about getting medical marijuana card Encounter Details Date Type Department Care Team (Late st Contact Info) Description 10/13/2019 10:40 AM CDT Office Visit [facility] Family & Internal Medicine [address] [phone] Mick Flowers MD [address] [place] [address] [phone] Follow Up; Anxiety; Hypertension; Hyperlipidemia; Multiple Sclerosis (Patient would like to talk about getting medical marijuana card) Social History Tobacco Use Types Packs/Day Years [...] Sign Reading Time Taken Comments Blood Pressure 128/84 10/13/2019 11:27 AM CDT Pulse 71 10/13/2019 10:39 AM CDT Temperature 35.7 ??C (96.3 ??F) 10/13/2019 10:39 AM C DT Respiratory Rate 18 10/13/2019 10:39 AM CDT Oxygen Saturation 98% 10/13/2019 10:39 AM CDT Inhaled Oxygen Concentration - - Weight 81.6 kg (180 lb) 10/13/2019 10:39 AM CDT Height 177.8 cm (5' 10 ) 10/13/2019 10:39 AM CDT Body Mass Index 25.83 10/13/2019 10:39 AM CDT documented in this encounter Progress Notes * Mick Flowers MD - 10/13/2019 10:40 AM CDT Images from the original note were not included. Office Progress Note Reason for Visit: Follow Up; Anxiety; Hypertension; Hyperlipidemia; and Multiple Sclerosis (Patient would like to talk about getting medical marijuana card) History of Present Illness: He is here today for routine follow-up. Hypertension: He has noticed that his blood pressure has been elevated at times in the morning but other times it seems to be well controlled. He has noticed that after he exercises he tends to have a regular pressure. He is compliant with medication medication side effects. He denies chest pain, shortness of breath, headaches, lightheadedness or dizziness. Multiple sclerosis: Patient states that his symptoms have been stable. He does have some spasticitywhich has been common for him. He did try some marijuana refused Gummies which did help with his spasticity. He would like to get a medical marijuana card if that is something he would qualify for byhis condition. Hyperlipidemia: Well-controlled on current medications. Patient is compliant with medication no medication side effects. He denies muscle aches joint pains from his medications. Anxiety: Doing well on current medications. He denies panic attacks. Insomnia: Doing well with current medications. Erectile dysfunction stable at this time. ROS: Review of Systems Constitutional: Negative for [...] for itching and rash. Neurological: Positive for weakness. Negative for sensory change, speech change and headaches. Psychiatric/Behavioral: Negative for depression. The [...] total) by mouth nightly at bedtime. ??? felodipine ER 5 MG 24 hr tablet Take 1 tablet (5 mg total) by mouth daily. ??? hydroCHLOROthiazide 25 MG tablet Take 1 tablet (25 mg total) by mouth every morning. Patient must be seen for further refills ??? losartan 100 MG tablet Take 1 tablet (100 mg total) by mouth daily. ??? POTASSIUM CHLORIDE CR 20 MEQ Tab CR tablet TAKE 1 TABLET BY MOUTH DAILY ??? urea 40 % Cream Apply topically daily. ??? INSULIN SYRINGE .5CC/28G (B-D INS [...] file Gets together: Not on file Attends tenriism service: Not on file Active member of [...] EOM are normal. Cardiovascular: Normal rate, regular rhythm and normal [...] Nursing note and vitals reviewed. Filed Vitals: 10/13/19 1039 10/13/19 1127 BP: (!) 144/100 128/84 Pulse: 71 Resp: 18 Temp: 96.3 ??F (35.7 ??C) TempSrc: Oral SpO2: 98% Weight: 81.6 kg (180 lb) Height: 5' 10 (1.778 m) Diagnoses/Impression: 1. Benign essential hypertension Chronic 2. Multiple sclerosis (CMS/HCC) Chronic 3. Mixed hyperlipidemia Chronic 4. Anxiety Chronic 5. Primary insomnia 6. Erectile dysfunction, unspecified erectile dysfunction type Chronic Recommendations and Plan: 1. Benign essential hypertension Well controlled, continue with current medications. 2. Multiple sclerosis (CMS/HCC) Doing well on current medications Medical marijuana paperwork was filled out for patient for spasticity. 3. Mixed hyperlipidemia Well controlled on current medication. 4. Anxiety Stable 5. Primary insomnia Stable 6. Erectile dysfunction, unspecified erectile dysfunction type Stable No orders of the defined types were placed in this encounter. Cannot display discharge medications since this is not an admission. PCP: MICK FLOWERS MD 10/13/2019 documented in this encounter Plan of Treatment Upcoming Encounters Date Type Department Care Team (Late st Contact Info) Description 09/09/2024 10:00 AM CDT Office Visit [facility] Family & Internal Medicine - [place] [id number] [place] [address] Mick Flowers MD [address] [place] [address] documented as of this encounter Visit Diagnoses Diagnosis Benign essential hypertension- Primary Essential hypertension, benign Multiple sclerosis (CMS/HCC HHS/HCC) Multiple sclerosis Mixed hyperlipidemia Anxiety Anxiety state, unspecified Primary insomnia Persistent disorder of initiating or maintaining sleep Erectile dysfunction, unspecified erectile dysfunction type documented in this encounter Care Teams Technician Assistant Relationship Specialty Start Date End Date Mick Flowers MD [address] [place] [address] PCP - General 10/15/14 documented as of this encounter
--- OUTSIDE RECORDS SUMMARY | 2024-06-29 00:12 | XMS_ITS | Encounter Summary ---
Author Organization [facility] Address [address] [place] [address]. [place], [place] [address] [place] [address] Care Team Providers Care Human Resources Executive Assistant Name Role Phone Mick Flowers MD Primary Care Provider [phone] Encounter Details Date Type Department Care Team (Latest Contact Info) Description 01/18/2018 Abstract [facility] , Generic ConversionMD Social History [...] Notes * Generic Conversion MD Denise - 01/18/2018 2:02 PM CDT Message Recorded as Task Date: 01/18/2018 12:53 PM, Created By: Simona Gutierres Task Name: Call Patient with results Assigned To: [facility] Nurse Team Regarding Patient: Doc Emery, Status: In Progress Comment: Simona Gutierres - 18 Jan 2018 12:53 PM Patient Let pt know other than his glucose being high, his labs were stable. Debby Solis 18 Jan 2018 1:59 PM TASK REASSIGNED: Previously Assigned To Simona Gutierres Natalie 18 Jan 2018 1:59 PM TASK REASSIGNED: Previously Assigned To [facility] Nurse Team Abbie Medina 18 Jan 2018 2:00 PM TASK IN PROGRESS Abbie Medina 18 Jan 2018 2:01 PM TASK EDITED pt informed with understanding voiced Signatures Electronically signed by : Abbie Medina, ; Jan 18 2018 2:02PM ENVELOPE FOLDER (Author) * MAXIM Ruiz - 01/18/2018 12:52 PM CDT Message Let pt know other than his glucose being high, his labs were stable. Verified Results QU-COMPREHENSIVE METABOLIC PANEL [id number] 08:31AM Simona Gutierres Test Name Result Flag Reference GLUCOSE 127 mg/dL H 65-99 Fasting reference interval For someone without known diabetes, a glucose value >125 mg/dL indicates that they may have diabetes and this should be confirmed with a follow-up test. UREA NITROGEN (BUN) 15 mg/dL 7-25 CREATININE 0.82 mg/dL 0.70-1.33 For patients >49 years of age, the reference limit for Creatinine is approximately 13% higher for people identified as -Syrian. eGFR NON-AFR. NAMIBIAN 101 > OR = 60 UNITS: mL/min/1.73m2 eGFR 117 > OR = 60 UNITS: mL/min/1.73m2 BUN/CREATININE RATIO 6-22 NOT APPLICABLE (calc) SODIUM 137 mmol/L 135-146 POTASSIUM 4.2 mmol/L 3.5-5.3 CHLORIDE 101 mmol/L 98-110 CARBON DIOXIDE 26 mmol/L 20-31 CALCIUM 9.7 mg/dL 8.6-10.3 PROTEIN, TOTAL 6.7 g/dL 6.1-8.1 ALBUMIN 4.5 g/dL 3.6-5.1 GLOBULIN 2.2 1.9-3.7 UNITS: g/dL (calc) ALBUMIN/GLOBULIN RATIO 2.0 (calc) 1.0-2.5 BILIRUBIN, TOTAL 0.6 mg/dL 0.2-1.2 ALKALINE PHOSPHATASE 96 U/L 40-115 AST 25 U/L 10-35 ALT 29 U/L 9-46 Test Performed at: [facility] [address] [place] [address] JELLY MAYERS DO,MPH QU-CBC ( INCLUDES DIFF/PLT ) ( REFL ) [id number] 08:31AM Simona Gutierres Test Name Result Flag Reference WHITE BLOOD CELL COUNT 4.3 3.8-10.8 UNITS: Thousand/uL RED BLOOD CELL COUNT 4.80 Million/uL 4.20-5.80 HEMOGLOBIN 15.1 g/dL 13.2-17.1 HEMATOCRIT 43.5 % 38.5-50.0 MCV 90.6 fL 80.0-100.0 MCH 31.5 pg 27.0-33.0 MCHC 34.7 g/dL 32.0-36.0 RDW 12.9 % 11.0-15.0 PLATELET COUNT 213 140-400 UNITS: Thousand/uL MPV 10.8 fL 7.5-12.5 ABSOLUTE NEUTROPHILS 2120 cells/uL 1970-7862 ABSOLUTE LYMPHOCYTES 1376 cells/uL 850-3900 ABSOLUTE MONOCYTES 378 cells/uL 200-950 ABSOLUTE EOSINOPHILS 387 cells/uL 15-500 ABSOLUTE BASOPHILS 39 cells/uL 0-200 NEUTROPHILS 49.3 % LYMPHOCYTES 32.0 % MONOCYTES 8.8 % EOSINOPHILS 9.0 % BASOPHILS 0.9 % Test Performed at: [facility] [address] [place] [address] JELLY MAYERS DO,MPH documented in this encounter Plan of Treatment Upcoming Encounters Date Type Department Care Team (Late st Contact Info) Description 09/09/2024 10:00 AM CDT Office Visit [facility] Family & Internal Medicine [address] [phone] Mick Flowers MD [address] [place] [address] documented as of this encounter Visit Diagnoses Not on filedocumented in this encounter Care Teams Human Resources Executive Assistant Relationship Specialty Start Date End Date Mick Flowers MD [address] [place] [address] PCP - General 10/15/14 documented as of this encounter
--- OUTSIDE RECORDS SUMMARY | 2024-06-29 00:12 | XMS_ITS | Encounter Summary ---
Author Organization [facility] Address [address] [place] [address]. [place], [place] [address] [place] [address] Care Team Providers Care Financial Services Associate Name Role Phone Mick Flowers MD Primary Care Provider [phone] Encounter Details Date Type Department Care Team (Latest Contact Info) Description 12/24/2017 Abstract [facility] Social History Tobacco Use Types [...] COUNTY [facility] Family & Internal Medicine [address] [phone] Mick Flowers MD [address] [place] [address] documented as of this encounter Visit Diagnoses Not on filedocumented in this encounter Care Teams Financial Services Associate Relationship Specialty Start Date End Date Mick Flowers MD [address] [place] [address] PCP - General 10/15/14 documented as of this encounter
--- OUTSIDE RECORDS SUMMARY | 2024-06-29 00:12 | XMS_ITS | Encounter Summary ---
Author Organization [facility] Address [address] [place] [address]. [place], [place] [address] [place] [address] Care Team Providers Care Snow Maker Name Role Phone Mick Flowers MD Primary Care Provider [phone] Reason for Visit * Reason Onset Date Comments Refill Request 04/03/2019 Encounter Details Date Type Department Care Team (Late st Contact Info) Description 04/03/2019 Telephone [facility] Family & Internal Medicine [facility] [address] [place] [address] Mcik Flowers MD [facility] [place] [address] Refill Request Social History Tobacco Use Types [...] Progress Notes * Kanchan Zuñiga MA - 04/03/2019 3:06 PM CDT The patient is calling for a refill on:atorvastatin and losartan Last visit with MICK FLOWERS in FAMILY PRACTICE was on: 10/07/2018 in [facility] No future appointments. [id number] - [place], [place] - [address] [facility] [address] [facility] - [place], [place] - [address] [place], [place] [address] [facility] [address] Current Outpatient Medications: ??? ALPRAZOLAM 0.5 MG [...] Medical Group Family & Internal Medicine - [address] [address] Mick Flowers MD [address] [place] [address] documented as of this encounter Visit Diagnoses Diagnosis Benign essential hypertension Essential hypertension, benign Hyperlipidemia Other and unspecified hyperlipidemia documented in this encounter Care Teams Snow Maker Relationship Specialty Start Date End Date Mick Flowers MD [address] [place] [address] PCP - General 10/15/14 documented as of this encounter
--- OUTSIDE RECORDS SUMMARY | 2024-06-29 00:13 | XMS_ITS | Encounter Summary ---
Author Organization [facility] Address [address] [place] [address]. [place], [place] [address] [place] [address] Care Team Providers Care Supervisor Cook Room Name Role Phone Mick Flowers MD Primary Care Provider [phone] Encounter Details Date Type Department Care Team (Latest Contact Info) Description 08/28/2016 Abstract [facility] Social History Tobacco Use Types Packs/Day Years Used Date Smoking Tobacco: Never Sex and Gender Information Value Date Recorded Sex Assigned at Male 10/07/2018 11:33 AM CDT Legal Sex Male 9:27 PM CDT Gender Identity Male 10/07/2018 11:33 AM CDT Sexual Orientation Straight 10/07/2018 11 :33 AM CDT documented as of this encounter Progress Notes * Melanie Carroll Md, MD - 08/28/2016 2:32 PM CST Message Recorded as Task Date: 08/24/2016 08:34 AM, Created By: Wilma Pedersen Task Name: Medical Complaint Callback Assigned To: [facility] Team Kristie Regarding Patient: Doc Emery, Status: Active Comment: Wilma Pedersen - 24 Aug 2016 8:34 AM TASK CREATED Caller: Self; Medical Complaint; pt called and said [facility] sent over prior auth request on edex 20mcg for pt. I see no record of that, but jasoneens stated it is need and they will send over request. please obtain prior auth and resend. pharmacy as listed. Message: Appeal sent to [facility] Signatures Electronically signed by : Shraddha Wheeler R.N.; Aug 28 2016 2:33PM IT TELECOM TECHNICIAN (Author) documented in this encounter Plan of Treatment Upcoming Encounters Date Type Department Care Team (Late st Contact Info) Description 09/09/2024 10:00 AM CDT Office Visit [facility] Family & Internal Medicine - [address] [address] Mick Flowers MD [address] [place] [address] documented as of this encounter Visit Diagnoses Not on filedocumented in this encounter Care Teams Supervisor Cook Room Relationship Specialty Start Date End Date Mick Flowers MD [address] [place] [address] PCP - General 10/15/14 documented as of this encounter
--- OUTSIDE RECORDS SUMMARY | 2024-06-29 00:13 | XMS_ITS | Encounter Summary ---
Author Organization [facility] Address [address] [place] [address]. [place], [place] [address] [place] [address] Care Team Providers Care Bush Hog Operator Name Role Phone Mick Flowers MD Primary Care Provider [phone] Encounter Details Date Type Department Care Team (Latest Contact Info) Description 04/17/2017 Abstract [facility] Group Social History Tobacco [...] Notes * Generic Conversion MD Denise - 04/17/2017 8:29 AM CDT Message Labs are good. Pt updated by mail-[facility] Verified Results QU-LIPID PANEL [id number] 08:33AM Mick Flowers Test Name Result Flag Reference CHOLESTEROL, TOTAL 180 mg/dL <200 HDL CHOLESTEROL 67 mg/dL >40 TRIGLYCERIDES 120 mg/dL <150 LDL-CHOLESTEROL 91 UNITS: mg/dL (calc) Reference range: <100 Desirable range <100 mg/dL for patients with CHD or diabetes and <70 mg/dL for diabetic patients with known heart disease. LDL-C is now calculated using the [employer] Kay calculation, which is a validated novel method providing better accuracy than the Friedewald equation in the estimation of LDL-C. Sergey SOTO et al. MAKENZIE. 2013;310(19): 0911-1473 (http://education.PanAtlanta.Wigix/faq/XOP092) CHOL/HDLC RATIO 2.7 (calc) <5.0 NON HDL CHOLESTEROL 113 <130 UNITS: mg/dL (calc) For patients with diabetes plus 1 major ASCVD risk factor, treating to a non-HDL-C goal of <100 mg/dL (LDL-C of <70 mg/dL) is considered a therapeutic option. Test Performed at: [facility] [address] [place] [address] JELLY MAYERS DO,MPH QU-COMPREHENSIVE METABOLIC PANEL [id number] 16Apr2017 08:33AM Mick Flowers Test Name Result Flag Reference GLUCOSE 109 mg/dL H 65-99 Fasting reference interval For someone without known diabetes, a glucose value between 100 and 125 mg/dL is consistent with prediabetes and should be confirmed with a follow-up test. UREA NITROGEN (BUN) 12 mg/dL 7-25 CREATININE 0.85 mg/dL 0.70-1.33 For patients >49 years of age, the reference limit for Creatinine is approximately 13% higher for people identified as -Cook Islander. eGFR NON-AFR. MALTESE 100 > OR = 60 UNITS: mL/min/1.73m2 eGFR 116 > OR = 60 UNITS: mL/min/1.73m2 BUN/CREATININE RATIO 6-22 NOT APPLICABLE (calc) SODIUM 137 mmol/L 135-146 POTASSIUM 4.4 mmol/L 3.5-5.3 CHLORIDE 103 mmol/L 98-110 CARBON DIOXIDE 28 mmol/L 20-31 CALCIUM 9.9 mg/dL 8.6-10.3 PROTEIN, TOTAL 6.9 g/dL 6.1-8.1 ALBUMIN 4.6 g/dL 3.6-5.1 GLOBULIN 2.3 1.9-3.7 UNITS: g/dL (calc) ALBUMIN/GLOBULIN RATIO 2.0 (calc) 1.0-2.5 BILIRUBIN, TOTAL 0.7 mg/dL 0.2-1.2 ALKALINE PHOSPHATASE 111 U/L 40-115 AST 22 U/L 10-35 ALT 26 U/L 9-46 Test Performed at: [facility] [address] [place] [address] JELLY MAYERS DO,MPH QU-CREATINE KINASE, TOTAL 374 16Apr2017 08:33AM Mick Flowers Test Name Result Flag Reference CREATINE KINASE, TOTAL 155 U/L 44-196 REPORT COMMENT: FASTING:YES AN UPDATE OR CORRECTION HAS BEEN MADE TO NAME Test Performed at: [facility] [address] [address] [place] [address] JELLY MAYERS DO,MPH Signatures Electronically signed by : Shraddha Wheeler R.N.; Apr 17 2017 9:02AM MATERIALS AND PROCESSES MANAGER (Author) documented in this encounter Plan of Treatment Upcoming Encounters Date Type Department Care Team (Late st Contact Info) Description 09/09/2024 10:00 AM CDT Office Visit [facility] Family & Internal Medicine [address] [address] Mick Flowers MD [address] [place] [address] documented as of this encounter Visit Diagnoses Not on filedocumented in this encounter Care Teams Bush Hog Operator Relationship Specialty Start Date End Date Mick Flowers MD [address] [place] [address] PCP - General 10/15/14 documented as of this encounter
--- OUTSIDE RECORDS SUMMARY | 2024-06-29 00:13 | XMS_ITS | Encounter Summary ---
Author Organization [facility] Address [address] [place] [address]. [place], [place] [address] [place] [address] Care Team Providers Care Location Worker Name Role Phone Mick Flowers MD Primary Care Provider Encounter Details Date Type Department Care Team (Latest Contact Info) Description 08/15/2016 Abstract [facility] Medical Group Social History Tobacco Use [...] Notes * Generic Conversion MD Denise - 08/15/2016 2:41 PM CST Message Recorded as Task Date: 08/15/2016 08:23 AM, Created By: Shraddha Wheeler Task Name: Medical Complaint Callback Assigned To: [facility] Team Kristie Regarding Patient: Doc Emery, Status: Active Comment: Shraddha Wheeler - 15 Aug 2016 8:23 AM TASK CREATED Pt wants us to try to get his Edex 20mcg approved through insurance, appeals and all - like we did that time. Okay with you? Talia Carcamo [facility]#[phone] Mick Flowers - 15 Aug 2016 10:15 AM TASK REASSIGNED: Previously Assigned To Mick Flowers Message: rx sent , awaiting p/a info-sjs Plan 1. Edex 20 MCG Intracavernosal Kit; INJECT 1 ML CAVERNOSAL 10-30 MINUTES PRIOR TO INTERCOURSE Rx By: Mick Flowers; Dispense: 30 Days ; #:1 X 1 Kit Box; Refill: 5; For: Multiple sclerosis; KYLE = N; Verified Transmission to [facility] [id number]; Last Updated By: Justus Constantino; 08/15/2016 2:43:41 PM Formulary Override Reason: Drug not appropriate now, review in future Signatures Electronically signed by : Kanchan Zuñiga MA; Aug 16 2016 7:19AM COLOR MATCHER (Author) documented in this encounter Plan of Treatment Upcoming Encounters Date Type Department Care Team (Late st Contact Info) Description 09/09/2024 10:00 AM CDT Office Visit [facility] Medical Group Family & Internal Medicine [address] [address] Mick Flowers MD [address] [place] [address] documented as of this encounter Visit Diagnoses Not on filedocumented in this encounter Care Teams Location Worker Relationship Specialty Start Date End Date Mick Flowers MD [address] [place] [address] PCP - General 10/15/14 documented as of this encounter
--- OUTSIDE RECORDS SUMMARY | 2024-06-29 00:13 | XMS_ITS | Encounter Summary ---
Author Organization [facility] Address [address] [place] [address]. [place], [place] [address] [place] [address] Care Team Providers Care Supervisor Pole Yard Name Role Phone Mick Flowers MD Primary Care Provider [phone] Encounter Details Date Type Department Care Team (Latest Contact Info) Description 09/25/2017 Abstract [facility] Mick Flowers MD [facility] [place] [address] Social History Tobacco Use Types Packs/Day Years [...] 10:00 AM CDT Office Visit [facility] Family & Internal Medicine [facility] [address] [place] [address] Mick Flowers MD [address] [place] [address] documented as of this encounter Procedures Procedure Name Priority Date/Time Associated Diagnosis Comments LIPID PANEL WITH DIRECT LDL Routine 09/25/2017 8:03 AM CDT URINALYSIS COMPLETE W/RFX TO CULTURE Routine 09/25/2017 8:03 AM CDT TSH W/REFLEX Routine 09/25/2017 8:03 AM CDT PROSTATE SPECIFIC ANTIGEN,TOTAL Routine 09/25/2017 8:03 AM CDT COMPREHENSIVE METABOLIC PANEL Routine 09/25/2017 8:03 AM CDT CBC W/DIFF AUTOMATED Routine 09/25/2017 8:03 AM CDT CK (CPK) Routine 09/25/2017 8:03 AM CDT documented in this encounter Results * CBC W/DIFF AUTOMATED (09/25/2017 8:03 AM CDT) WBC 4.2 3.8 - 10.8 [facility] TO EPIC CONVERSION Comment:Result Comment: UNIT S: Thousand/uL Red Blood Cell Count 5.09 4.20 - 5.80 Million/uL [facility] TO EPIC CONVERSION HGB 15.6 13.2 - 17.1 g/dL [facility] TO EPIC CONVERSION HCT 45.1 38.5 - 50.0 % [facility] TO EPIC CONVERSION MCV 88.6 80.0 - 100.0 fL [facility] TO EPIC CONVERSION MCH (QHPE) 30.6 27.0 - 33.0 pg [facility] TO EPIC CONVERSION MCHC 34.6 32.0 - 36.0 g/dL [facility] TO EPIC CONVERSION RDW (QHPE) 13.1 11.0 - 15.0 % [facility] TO EPIC CONVERSION PLT 216 140 - 400 [facility] T O EPIC CONVERSION Comment:Result Comment: UNIT S: Thousand/uL MPV 11.1 7.5 - 12.5 fL [facility] TO EPIC CONVERSION ABS. NEUTROPHILS 2012 1500 - 7800 cells/uL [facility] TO EPIC CONVERSION ABS. LYMPHOCYTES 1457 850 - 3900 cells/uL [facility] TO EPIC CONVERSION ABS. MONOCYTES 395 200 - 950 cells/uL [facility] TO EPIC CONVERSION ABS. EOSINOPHILS 298 15 - 500 cells/uL [facility] TO EPIC CONVERSION ABS. BASOPHILS 38 0 - 200 cells/uL [facility] TO EPIC CONVERSION SEG NEUTROPHILS 47.9 % [facility] ROUP TO EPIC CONVERSION LYMPHOCYTES 34.7 % [facility] TO EPIC CONVERSION MONOCYTES 9.4 % [facility] T O EPIC CONVERSION EOSINOPHILS 7.1 % [facility] TO EPIC CONVERSION BASOPHILS 0.9 % [facility] T O EPIC CONVERSION Comment: Result Comment: Test Performed at: [facility] [address] [place], [place] ??[phone] ? JELLY MAYERS DO,MPH 09/25/2017 8:03 AM CDT 09/25/2017 8:03 AM CDT Narrative [facility] TO EPIC CONVERSION - 09/26/2017 3:00 AM CDT Result Communication: Call patient with results us Mick Flowers MD LABORATORY Final Result [facility] TO EPIC CONVERSION * (ABNORMAL) COMPREHENSIVE METABOLIC PANEL (09/25/2017 8:03 AM CDT) GLUCOSE 109(H) 65 - 99 mg/dL [facility] TO EPIC CONVERSION Comment: Result Comment: ? Fasting reference interval For someone without known diabetes, a glucose value between 100 and 125 mg/dL is consistent with prediabetes and should be confirmed with a follow-up test. BUN 16 7 - 25 mg/dL [facility] TO EPIC CONVERSION CREATININE S/P/B 0.90 0.70 - 1.33 mg/dL [facility] TO EPIC CONVERSION Comment: Result Comment: For patients >49 years of age, the reference limit for Creatinine is approximately 13% higher for people identified as -Russian. EGFR NON-AFR. AMER. 97 > OR = 60 [facility] TO EPIC CONVERSION Comment:Result Comment: UNIT S: mL/min/1.73m2 EGFR AFR. AMER. 113 > OR = 60 [facility] TO EPIC CONVERSION Comment:Result Comment: UNIT S: mL/min/1.73m2 BUN CREATININE RATIO NOT APPLICABLE 6 - 22 (calc) [facility] TO EPIC CONVERSION SODIUM S/P/B 140 135 - 146 mmol/L [facility] TO EPIC CONVERSION POTASSIUM S/P/B 4.1 3.5 - 5.3 mmol/L [facility] TO EPIC CONVERSION CHLORIDE S/P/B 105 98 - 110 mmol/L [facility] TO EPIC CONVERSION CO2 27 20 - 31 mmol/L [facility] TO EPIC CONVERSION CALCIUM S/P/B 9.9 8.6 - 10.3 mg/dL [facility] TO EPIC CONVERSION PROTEIN 7.0 6.1 - 8.1 g/dL [facility] TO EPIC CONVERSION ALBUMIN S/P/B 4.4 3.6 - 5.1 g/dL [facility] TO EPIC CONVERSION GLOBULIN 2.6 1.9 - 3.7 [facility] TO EPIC CONVERSION Comment:Result Comment: UNIT S: g/dL (calc) ALBUMIN/GLOBULIN RATIO 1.7 1.0 - 2.5 (calc) [facility] TO EPIC CONVERSION BILIRUBIN TOTAL (FLUID) 0.5 0.2 - 1.2 mg/dL [facility] TO EPIC CONVERSION ALK PHOS 98 40 - 115 U/L [facility] TO EPIC CONVERSION AST 27 10 - 35 U/L [facility] TO EPIC CONVERSION ALT 34 9 - 46 U/L [facility] TO EPIC CONVERSION Comment: Result Comment: Test Performed at: [facility] [address] [place] [address] ??[phone] ? JELLY MAYERS DO,MPH 09/25/2017 8:03 AM CDT 09/25/2017 8:03 AM CDT Narrative [facility] TO EPIC CONVERSION - 09/26/2017 3:00 AM CDT Result Communication: Call patient with results Mick Flowers MD LABORATORY Final Result [facility] TO EPIC CONVERSION * URINALYSIS COMPLETE W/RFX TO CULTURE (09/25/2017 8:03 AM CDT) COLOR (U) YELLOW YELLOW [facility] T O EPIC CONVERSION APPEARANCE SEMEN CLEAR CLEAR [facility] TO EPIC CONVERSION SPECIFIC GRAVITY (U) 1.018 1.001 - 1.035 [facility] TO EPIC CONVERSION PH (U) 7.0 5.0 - 8.0 [facility] T O EPIC CONVERSION URINE GLUCOSE NEGATIVE NEGATIVE [facility] UP TO EPIC CONVERSION BILIRUBIN (U) NEGATIVE NEGATIVE [facility] UP TO EPIC CONVERSION KETONE (U) NEGATIVE NEGATIVE [facility] TO EPIC CONVERSION OCCULT BLOOD FECAL NEGATIVE NEGATIVE [facility] TO EPIC CONVERSION PROTEIN (U) NEGATIVE NEGATIVE [facility] TO EPIC CONVERSION NITRITES NEGATIVE NEGATIVE [facility] T O EPIC CONVERSION LEUKOCYTES (U) NEGATIVE NEGATIVE [facility] OUP TO EPIC CONVERSION RBC/HPF NONE SEEN < OR = 2 /HPF [facility] TO EPIC CONVERSION SQUAMOUS EPITHELIALS NONE SEEN < OR = 5 /HPF [facility] TO EPIC CONVERSION HYALINE CASTS NONE SEEN NONE SEEN /LPF [facility] TO EPIC CONVERSION Comment: Result Comment: Test Performed at: [facility] [address] [place], [place] ??[phone] ? JELLY MAYERS DO,MPH WBC NONE SEEN < OR = 5 /HPF [facility] TO EPIC CONVERSION ORGANISM NONE SEEN NONE SEEN /HPF [facility] TO EPIC CONVERSION REFLEX URINE CULTURE: NO CULTURE INDICATED [facility] TO EPIC CONVERSION Comment: Result Comment: Test Performed at: [facility] [id number] [place] [address] ??[phone] ? JELLY MAYERS DO,MPH 09/25/2017 8:03 AM CDT 09/25/2017 8:03 AM CDT Narrative [facility] TO EPIC CONVERSION - 09/26/2017 3:00 AM CDT Result Communication: Call patient with results Mick Flowers MD URINE ORDERABLES Final Result [facility] TO EPIC CONVERSION * (ABNORMAL) LIPID PANEL WITH DIRECT LDL (09/25/2017 8:03 AM CDT) CHOLESTEROL 197 <200 mg/dL [facility] TO EPIC CONVERSION HDL 77 >40 mg/dL [facility] T O EPIC CONVERSION TRIGLYCERIDES 59 <150 mg/dL [facility] TO EPIC CONVERSION LDL (CALCULATED) 106(H) [facility] TO EPIC CONVERSION Comment: Result Comment: UNITS: mg/dL (calc) Reference range: <100 Desirable range <100 mg/dL for patients with CHD or diabetes and <70 mg/dL for diabetic patients with known heart disease. LDL-C is now calculated using the Sergey-Noemi calculation, which is a validated novel method providing better accuracy than the Friedewald equation in the estimation of LDL-C. Sergey SOTO et al. MAKENZIE. 2013;310(19): 3219-9825 (http://education.Financuba/faq/FBS022) CHOL/HDL RATIO 2.6 <5.0 (calc) [facility] TO EPIC CONVERSION NON HDL CHOLESTEROL 120 <130 [facility] TO EPIC CONVERSION Comment: Result Comment: UNITS: mg/dL (calc) For patients with diabetes plus 1 major ASCVD risk factor, treating to a non-HDL-C goal of <100 mg/dL (LDL-C of <70 mg/dL) is considered a therapeutic option. Test Performed at: [facility] [address] [place] [address] ??[phone] ? JELLY MAYERS DO,MPH 09/25/2017 8:03 AM CDT 09/25/2017 8:03 AM CDT Narrative [facility] TO EPIC CONVERSION - 09/26/2017 3:00 AM CDT Result Communication: Call patient with results Mick Flowers MD LABORATORY Final Result Performing Organization Address [facility] de Phone Number [facility] TO EPIC CONVERSION * (ABNORMAL) CK (CPK) (09/25/2017 8:03 AM CDT) TOTAL CK 245(H) 44 - 196 U/L [facility] TO EPIC CONVERSION Comment: Result Comment: Test Performed at: [facility] [address] ??[phone] ? JELLY MAYERS DO,MPH 09/25/2017 8:03 AM CDT 09/25/2017 8:03 AM CDT Narrative [facility] TO EPIC CONVERSION - 09/26/2017 3:00 AM CDT Result Communication: Call patient with results Mick Flowers MD LABORATORY Final Result Performing Organization Address [facility] de Phone Number [facility] TO EPIC CONVERSION * TSH W/REFLEX (SNS) (09/25/2017 8:03 AM CDT) TSH 3.12 0.40 - 4.50 mIU/L [facility] TO EPIC CONVERSION Comment: Result Comment: ?? REPORT COMMENT: FASTING:YES Test Performed at: [facility] [address] [place] [address] ??[phone] ? JELLY MAYERS DO,MPH 09/25/2017 8:03 AM CDT 09/25/2017 8:03 AM CDT Narrative [facility] TO EPIC CONVERSION - 09/26/2017 3:00 AM CDT Result Communication: Call patient with results Mick Flowers MD LABORATORY Final Result Performing Organization Address City/[facility]/ZIP Co de Phone Number [facility] TO EPIC CONVERSION * PROSTATE SPECIFIC ANTIGEN,TOTAL (09/25/2017 8:03 AM CDT) PSA 1.1 < OR = 4.0 ng/mL [facility] TO EPIC CONVERSION Comment: Result Comment: The total PSA value from this [...] of the presence or absence of disease. Test Performed at: [facility] [address] ??[phone] ? JELLY MAYERS DO,MPH 09/25/2017 8:03 AM CDT 09/25/2017 8:03 AM CDT Narrative [facility] TO EPIC CONVERSION - 09/26/2017 3:00 AM CDT Result Communication: Call patient with results Mick Flowers MD LABORATORY Final Result Performing Organization Address [facility] Co de Phone Number [facility] TO EPIC CONVERSION documented in this encounter Visit Diagnoses Not on filedocumented in this encounter Care Teams Supervisor Pole Yard Relationship Specialty Start Date End Date Mick Flowers MD [address] [place] [address] PCP - General 10/15/14 documented as of this encounter
--- OUTSIDE RECORDS SUMMARY | 2024-06-29 00:13 | XMS_ITS | Encounter Summary ---
Author Organization [facility] Address [address] [place] [address]. [place], [place] [address] [place] [address] Care Team Providers Care Orange Peel Operator Name Role Phone Mick Flowers MD Primary Care Provider [phone] Encounter Details Date Type Department Care Team (Latest Contact Info) Description 04/16/2017 Abstract [facility] Mick Flowers MD [address] [place] [address] Social History Tobacco Use Types Packs/Day Years [...] Description 09/09/2024 10:00 AM CDT Office Visit [facility] Family & Internal Medicine [facility] [address] [place] [address] Mick Flowers MD [address] [place] [address] documented as of this encounter Procedures Procedure Name Priority Date/Time Associated Diagnosis Comments COMPREHENSIVE METABOLIC PANEL Routine 04/16/2017 8:33 AM CDT LIPID PANEL Routine 04/16/2017 8:33 AM CDT CK (CPK) Routine 04/16/2017 8:33 AM CDT documented in this encounter Results * CK (CPK) (04/16/2017 8:33 AM CDT) TOTAL CK 155 44 - 196 U/L [facility] TO EPIC CONVERSION Comment: Result Comment: ?? REPORT COMMENT: FASTING:YES AN UPDATE OR CORRECTION HAS BEEN MADE TO NAME Test Performed at: [facility] ??[phone] ? JELLY MAYERS DO,MPH 04/16/2017 8:33 AM CDT 04/16/2017 8:33 AM CDT Narrative [facility] TO EPIC CONVERSION - 04/16/2017 8:34 AM CDT Result Communication: Call patient with results Mick Flowers MD LABORATORY Final Result [facility] TO EPIC CONVERSION * (ABNORMAL) COMPREHENSIVE METABOLIC PANEL (04/16/2017 8:33 AM CDT) GLUCOSE 109(H) 65 - 99 mg/dL [facility] TO EPIC CONVERSION Comment: Result Comment: ? Fasting reference interval For someone without known diabetes, a glucose value between 100 and 125 mg/dL is consistent with prediabetes and should be confirmed with a follow-up test. BUN 12 7 - 25 mg/dL [facility] TO EPIC CONVERSION CREATININE S/P/B 0.85 0.70 - 1.33 mg/dL [facility] TO EPIC CONVERSION Comment: Result Comment: For patients >49 years of age, the reference limit for Creatinine is approximately 13% higher for people identified as -[place]enezuelan. EGFR NON-AFR. AMER. 100 > OR = 60 [facility] TO EPIC CONVERSION Comment:Result Comment: UNIT S: mL/min/1.73m2 EGFR AFR. AMER. 116 > OR = 60 [facility] TO EPIC CONVERSION Comment:Result Comment: UNIT S: mL/min/1.73m2 BUN CREATININE RATIO NOT APPLICABLE 6 - 22 (calc) [facility] TO EPIC CONVERSION SODIUM S/P/B 137 135 - 146 mmol/L [facility] TO EPIC CONVERSION POTASSIUM S/P/B 4.4 3.5 - 5.3 mmol/L [facility] TO EPIC CONVERSION CHLORIDE S/P/B 103 98 - 110 mmol/L [facility] TO EPIC CONVERSION CO2 28 20 - 31 mmol/L [facility] TO EPIC CONVERSION CALCIUM S/P/B 9.9 8.6 - 10.3 mg/dL [facility] TO EPIC CONVERSION PROTEIN 6.9 6.1 - 8.1 g/dL [facility] TO EPIC CONVERSION ALBUMIN S/P/B 4.6 3.6 - 5.1 g/dL [facility] TO EPIC CONVERSION GLOBULIN 2.3 1.9 - 3.7 [facility] TO EPIC CONVERSION Comment:Result Comment: UNIT S: g/dL (calc) ALBUMIN/GLOBULIN RATIO 2.0 1.0 - 2.5 (calc) [facility] TO EPIC CONVERSION BILIRUBIN TOTAL (FLUID) 0.7 0.2 - 1.2 mg/dL [facility] TO EPIC CONVERSION ALK PHOS 111 40 - 115 U/L [facility] TO EPIC CONVERSION AST 22 10 - 35 U/L [facility] TO EPIC CONVERSION ALT 26 9 - 46 U/L [facility] TO EPIC CONVERSION Comment: Result Comment: Test Performed at: [facility] ??[phone] ? JELLY MAYERS DO,MPH 04/16/2017 8:33 AM CDT 04/16/2017 8:33 AM CDT Narrative [facility] TO EPIC CONVERSION - 04/16/2017 8:34 AM CDT Result Communication: Call patient with results Mick Flowers MD LABORATORY Final Result [facility] TO EPIC CONVERSION * LIPID PANEL (04/16/2017 8:33 AM CDT) CHOLESTEROL 180 <200 mg/dL [facility] P TO EPIC CONVERSION HDL 67 >40 mg/dL [facility] T O EPIC CONVERSION TRIGLYCERIDES 120 <150 mg/dL [facility] OUP TO EPIC CONVERSION LDL (CALCULATED) 91 [facility] TO EPIC CONVERSION Comment: Result [...] LDL-C. Sergey SS et al. MAKENZIE. 2013;310(19): 7861-9898 (http://education.MineralRightsWorldwide.com/faq/EOY556) CHOL/HDL RATIO 2.7 <5.0 (calc) [facility] TO EPIC CONVERSION NON HDL CHOLESTEROL 113 <130 [facility] TO EPIC CONVERSION Comment: Result Comment: UNITS: mg/dL (calc) For patients with diabetes plus 1 major ASCVD risk factor, treating to a non-HDL-C goal of <100 mg/dL (LDL-C of <70 mg/dL) is considered a therapeutic option. Test Performed at: [facility] [address] [place] [address] ??[phone] ? JELLY MAYERS DO,MPH 04/16/2017 8:33 AM CDT 04/16/2017 8:33 AM CDT Narrative [facility] TO EPIC CONVERSION - 04/16/2017 8:34 AM CDT Result Communication: Call patient with results Mick Flowers MD LABORATORY Final Result [facility] TO EPIC CONVERSION documented in this encounter Visit Diagnoses Not on filedocumented in this encounter Care Teams Orange Peel Operator Relationship Specialty Start Date End Date Mick Flowers MD [address] [place] [address] PCP - General 10/15/14 documented as of this encounter
--- OUTSIDE RECORDS SUMMARY | 2024-06-29 00:13 | XMS_ITS | Encounter Summary ---
Author Organization [facility] Address [address] [place] [address]. [place], [place] [address] [place] [address] Care Team Providers Care Activities Concierge Name Role Phone Mick Flowers MD Primary Care Provider [phone] Encounter Details Date Type Department Care Team (Latest Contact Info) Description 04/10/2017 Abstract [facility] Social History Tobacco Use Types Packs/Day Years Used Date Smoking Tobacco: Never Sex and Gender Information Value Date Recorded Sex Assigned at Male 10/07/2018 11:33 AM CDT Legal Sex Male 9:27 PM CDT Gender Identity Male 10/07/2018 11:33 AM CDT Sexual Orientation Straight 10/07/2018 11 :33 AM CDT documented as of this encounter Progress Notes * Mick Flowers MD - 04/10/2017 2:45 PM CDT Plan 1. Compr Metabolic Prof ( CMP ); Status:Hold For - Manual Activation; Requested for:10Apr2017; [facility]; Due:10May2017; Last Updated By:Josi Hassan; 04/10/2017 2:46:20 PM;Ordered; For:Benign essential hypertension, Hyperlipidemia, Multiple sclerosis; Ordered By:Mick Flowers; 2. Creatine Kinase ( CK ) ( CPK ); Status:Hold For - Manual Activation; Requested for:10Apr2017; [facility]; Due:10May2017; Last Updated By:Josi Hassan; 04/10/2017 2:46:20 PM;Ordered; For:Benign essential hypertension, Hyperlipidemia, Multiple sclerosis; Ordered By:Mick Flowers; 3. Lipid Profile; Status:Hold For - Manual Activation; Requested for:10Apr2017; [facility]; Due:10May2017; Last Updated By:Josi Hassan; 04/10/2017 2:46:20 PM;Ordered; For:Benign essential hypertension, Hyperlipidemia, Multiple sclerosis; Ordered By:Mick Flowers; Signatures Electronically signed by : Josi Hassan, ; Apr 10 2017 2:47PM SEE WHEELER (Author) documented in this encounter Plan of Treatment Upcoming Encounters Date Type Department Care Team (Late st Contact Info) Description 09/09/2024 10:00 AM CDT Office Visit [facility] Family & Internal Medicine [address] [address] Mick Flowers MD [address] [place] [address] documented as of this encounter Visit Diagnoses Not on filedocumented in this encounter Care Teams Activities Concierge Relationship Specialty Start Date End Date Mick Flowers MD [address] [place] [address] PCP - General 10/15/14 documented as of this encounter
--- OUTSIDE RECORDS SUMMARY | 2024-06-29 00:13 | XMS_ITS | Encounter Summary ---
Author Organization [facility] Address [address] [place] [address]. [place], [place] [address] [place] [address] Care Team Providers Care Agency Director Name Role Phone Mick Flowers MD Primary Care Provider [phone] Encounter Details Date Type Department Care Team (Latest Contact Info) Description 09/27/2017 Abstract [facility] Progress Notes * Mick Flowers MD - 09/27/2017 8:12 AM CDT Signatures Electronically signed by : Josi Hassan, ; Sep 27 2017 8:13AM HOTBED TRANSFER OPERATOR (Author) documented in this encounter Plan of Treatment Upcoming Encounters Date Type Department Care Team (Late st Contact Info) Description 09/09/2024 10:00 AM CDT Office Visit [facility] Family & Internal Medicine - [place] [address] [place] [phone] Mick Flowers MD [address] [place] [address] documented as of this encounter Visit Diagnoses Not on filedocumented in this encounter Care Teams Agency Director Relationship Specialty Start Date End Date Mick Flowers MD [address] [place] [address] PCP - General 10/15/14 documented as of this encounter
--- OUTSIDE RECORDS SUMMARY | 2024-06-29 00:13 | XMS_ITS | Encounter Summary ---
Author Organization [facility] Address [address] [place] [address]. [place], [place] [address] [place] [address] Care Team Providers Care Beauty Advisor Name Role Phone Mick Flowers MD Primary Care Provider [phone] Encounter Details Date Type Department Care Team (Latest Contact Info) Description 06/01/2017 Abstract [facility] Social History Tobacco Use Types [...] 09/09/2024 10:00 AM CDT Office Visit [facility] Family & Internal Medicine [address] [address] Mick Flowers MD [address] [place] [address] documented as of this encounter Visit Diagnoses Not on filedocumented in this encounter Care Teams Beauty Advisor Relationship Specialty Start Date End Date Mick Flowers MD [address] [place] [address] PCP - General 10/15/14 documented as of this encounter
--- OUTSIDE RECORDS SUMMARY | 2024-06-29 00:13 | XMS_ITS | Encounter Summary ---
Author Organization [facility] Address [address] [place] [address]. [place] [address] [place] [address] Care Team Providers Care Rand Butting Machine Operator Name Role Phone Mick Flowers MD Primary Care Provider [phone] Encounter Details Date Type Department Care Team (Latest Contact Info) Description 09/14/2016 Abstract [facility] Mick Flowers MD [facility] [place] [address] Social History Tobacco Use Types Packs/Day Years [...] Description 09/09/2024 10:00 AM CDT Office Visit [facility] Family & Internal Medicine [facility] [address] [place] [address] Mick Flowers MD [address] [place] [address] documented as of this encounter Procedures Procedure Name Priority Date/Time Associated Diagnosis Comments URINALYSIS COMPLETE W/RFX TO CULTURE Routine 09/14/2016 7:48 AM CDT TSH W/REFLEX Routine 09/14/2016 7:48 AM CDT PROSTATE SPECIFIC ANTIGEN,TOTAL Routine 09/14/2016 7:48 AM CDT COMPREHENSIVE METABOLIC PANEL Routine 09/14/2016 7:48 AM CDT LIPID PANEL Routine 09/14/2016 7:48 AM CDT CBC W/DIFF AUTOMATED Routine 09/14/2016 7:48 AM CDT VITAMIN D, 25 OH Routine 09/14/2016 7:48 AM CDT URIC ACID BLOOD Routine 09/14/2016 7:48 AM CDT documented in this encounter Results * COMPREHENSIVE METABOLIC PANEL (09/14/2016 7:48 AM CDT) [facility] GLUCOSE 99 65 - 99 mg/dL [facility] TO EPIC CONVERSION Comment: Result Comment: ? Fasting reference interval BUN 14 7 - 25 mg/dL [facility] TO EPIC CONVERSION CREATININE S/P/B 0.88 0.70 - 1.33 mg/dL [facility] TO EPIC CONVERSION Comment: Result Comment: For patients >49 years of age, the reference limit for Creatinine is approximately 13% higher for people identified as -Taiwanese. EGFR NON-AFR. AMER. 99 > OR = 60 [facility] TO EPIC CONVERSION Comment:Result Comment: UNIT S: mL/min/1.73m2 EGFR AFR. AMER. 115 > OR = 60 [facility] TO EPIC CONVERSION Comment:Result Comment: UNIT S: mL/min/1.73m2 BUN CREATININE RATIO NOT APPLICABLE 6 - 22 (calc) [facility] TO EPIC CONVERSION SODIUM S/P/B 138 135 - 146 mmol/L [facility] TO EPIC CONVERSION POTASSIUM S/P/B 4.3 3.5 - 5.3 mmol/L [facility] TO EPIC CONVERSION CHLORIDE S/P/B 103 98 - 110 mmol/L [facility] TO EPIC CONVERSION CO2 27 20 - 31 mmol/L [facility] TO EPIC CONVERSION CALCIUM S/P/B 9.8 8.6 - 10.3 mg/dL [facility] TO EPIC CONVERSION PROTEIN 6.6 6.1 - 8.1 g/dL [facility] TO EPIC CONVERSION ALBUMIN S/P/B 4.5 3.6 - 5.1 g/dL [facility] TO EPIC CONVERSION GLOBULIN 2.1 1.9 - 3.7 [facility] TO EPIC CONVERSION Comment:Result Comment: UNIT S: g/dL (calc) ALBUMIN/GLOBULIN RATIO 2.1 1.0 - 2.5 (calc) [facility] TO EPIC CONVERSION BILIRUBIN TOTAL (FLUID) 0.6 0.2 - 1.2 mg/dL [facility] TO EPIC CONVERSION ALK PHOS 99 40 - 115 U/L [facility] TO EPIC CONVERSION AST 24 10 - 35 U/L [facility] TO EPIC CONVERSION ALT 36 9 - 46 U/L [facility] TO EPIC CONVERSION Comment: Result Comment: Test Performed at: [facility] [address] [place] [address] ??[phone] ? JELLY MAYERS DO,MPH 09/14/2016 7:48 AM CDT 09/14/2016 7:48 AM CDT Narrative [facility] TO EPIC CONVERSION - 09/14/2016 7:52 AM CDT Result Communication: Call patient with results Mick Flowers MD LABORATORY Final Result [facility] TO EPIC CONVERSION * VITAMIN D, 25 OH (09/14/2016 7:48 AM CDT) VITAMIN D 25 HYDROXY TOTAL S/P/B 42 30 - 100 ng/mL [facility] TO EPIC CONVERSION Comment: Result Comment: Vitamin D Status ? 25-OH Vitamin D: Deficiency: ?<20 ng/mL Insufficiency: ? 20 - 29 ng/mL Optimal: ? > or = 30 ng/mL For 25-OH Vitamin D testing on patients on D2-supplementation and patients for whom quantitation of D2 and D3 fractions is required, the [employer]ureD(TM) 25-OH VIT D, (D2,D3), LC/MS/MS is recommended: order code 39887 (patients >2yrs). For more information on this test, go to: http://education.MyNextRun/faq/VSN248 (This link is being provided for informational/educational purposes only.) Test Performed at: [facility] [employer] [address] [place] [address] ??[phone] ? JELLY MAYERS DO,MPH 09/14/2016 7:48 AM CDT 09/14/2016 7:48 AM CDT Narrative [facility] TO EPIC CONVERSION - 09/14/2016 7:52 AM CDT Result Communication: Call patient with results Mick Flowers MD LABORATORY Final Result Performing Organization Address [facility] Co de Phone Number [facility] TO EPIC CONVERSION * URIC ACID BLOOD (09/14/2016 7:48 AM CDT) URIC ACID 5.7 4.0 - 8.0 mg/dL [facility] TO EPIC CONVERSION Comment: Result Comment: Therapeutic target for gout patients: <6.0 mg/dL ?? Test Performed at: [facility] [employer] ??[phone] ? JELLY MAYERS DO,MPH 09/14/2016 7:48 AM CDT 09/14/2016 7:48 AM CDT Narrative [facility] TO EPIC CONVERSION - 09/14/2016 7:52 AM CDT Result Communication: Call patient with results Mick Flowers MD LABORATORY Final Result Performing Organization Address [facility] de Phone Number [facility] TO EPIC CONVERSION * PROSTATE SPECIFIC ANTIGEN,TOTAL (09/14/2016 7:48 AM CDT) PSA 0.8 < OR = 4.0 ng/mL [facility] TO EPIC CONVERSION Comment: Result Comment: ?? This test was performed using the Siemens chemiluminescent method. Values obtained from different assay methods cannot be used interchangeably. PSA levels, regardless of value, should not be interpreted as absolute evidence of the presence or absence of disease. Test Performed at: [facility] [address] [place] [address] ??[phone] ? JELLY MAYERS DO,MPH 09/14/2016 7:48 AM CDT 09/14/2016 7:48 AM CDT Narrative [facility] TO EPIC CONVERSION - 09/14/2016 7:52 AM CDT Result Communication: Call patient with results Mick Flowers MD LABORATORY Final Result Performing Organization Address [facility] Co de Phone Number [facility] TO EPIC CONVERSION * TSH W/REFLEX (SNS) (09/14/2016 7:48 AM CDT) TSH 3.71 0.40 - 4.50 mIU/L [facility] TO EPIC CONVERSION Comment: Result Comment: Test Performed at: [facility] [address] [place], [place] ??[phone] ? JELLY MAYERS DO,MPH 09/14/2016 7:48 AM CDT 09/14/2016 7:48 AM CDT Narrative [facility] TO EPIC CONVERSION - 09/14/2016 7:52 AM CDT Result Communication: Call patient with results Mick Flowers MD LABORATORY Final Result Performing Organization Address [facility] Phone Number [facility] TO EPIC CONVERSION * (ABNORMAL) URINALYSIS COMPLETE W/RFX TO CULTURE (09/14/2016 7:48 AM CDT) REFLEX URINE CULTURE: CULTURE INDICATED - RESULTS TO FOLLOW [facility] TO EPIC CONVERSION Comment: Result Comment: Test Performed at: [facility] [address] [place], [place] ??[phone] ? JELLY MAYERS DO,MPH COLOR (U) YELLOW YELLOW [facility] T O EPIC CONVERSION APPEARANCE SEMEN CLEAR CLEAR [facility] TO EPIC CONVERSION SPECIFIC GRAVITY (U) 1.023 1.001 - 1.035 [facility] TO EPIC CONVERSION PH (U) 6.5 5.0 - 8.0 [facility] T O EPIC CONVERSION URINE GLUCOSE NEGATIVE NEGATIVE [facility] UP TO EPIC CONVERSION BILIRUBIN (U) NEGATIVE NEGATIVE [facility] UP TO EPIC CONVERSION KETONE (U) NEGATIVE NEGATIVE [facility] TO EPIC CONVERSION OCCULT BLOOD FECAL NEGATIVE NEGATIVE [facility] TO EPIC CONVERSION PROTEIN (U) NEGATIVE NEGATIVE [facility] TO EPIC CONVERSION NITRITES NEGATIVE NEGATIVE [facility] T O EPIC CONVERSION LEUKOCYTES (U) 1+(A) NEGATIVE [facility] OUP TO EPIC CONVERSION RBC/HPF NONE SEEN < OR = 2 /HPF [facility] TO EPIC CONVERSION SQUAMOUS EPITHELIALS 0-5 < OR = 5 /HPF [facility] TO EPIC CONVERSION HYALINE CASTS NONE SEEN NONE SEEN /LPF [facility] TO EPIC CONVERSION Comment: Result Comment: Test Performed at: [facility] [address] ??[phone] ? JELLY MAYERS DO,MPH WBC 10-20(A) < OR = 5 /HPF [facility] TO EPIC CONVERSION ORGANISM MODERATE(A) NONE SEEN /HPF [facility] TO EPIC CONVERSION CULTURE RESULT SEE NOTE [facility] OUP TO EPIC CONVERSION Comment: Result Comment: ?CULTURE, URINE, ROUTINE ?MICRO NUMBER: ?[id number] ??TEST STATUS: ? FINAL ??SPECIMEN SOURCE: ?? URINE ??SPECIMEN QUALITY: ??ADEQUATE ??RESULT: ?Three or more organisms present, each greater ? than 10,000 cu/mL. May represent normal padmini ? contamination from external genitalia. No further ? testing is required. REPORT COMMENT: FASTING:YES Test Performed at: [facility] [address] ??[phone] ? JELLY MAYERS DO,MPH 09/14/2016 7:48 AM CDT 09/14/2016 7:48 AM CDT Narrative [facility] TO EPIC CONVERSION - 09/14/2016 7:52 AM CDT Result Communication: Call patient with results Mick Flowers MD URINE ORDERABLES Final Result [facility] TO EPIC CONVERSION * LIPID PANEL (09/14/2016 7:48 AM CDT) CHOLESTEROL 179 125 - 200 mg/dL [facility] TO EPIC CONVERSION HDL 63 > OR = 40 mg/dL [facility] TO EPIC CONVERSION TRIGLYCERIDES 88 <150 mg/dL [facility] OUP TO EPIC CONVERSION LDL (CALCULATED) 98 <130 [facility] TO EPIC CONVERSION Comment: Result Comment: UNITS: mg/dL (calc) Desirable range <100 mg/dL for patients with CHD or diabetes and <70 mg/dL for diabetic patients with known heart disease. CHOL/HDL RATIO 2.8 < OR = 5.0 (calc) [facility] TO EPIC CONVERSION NON HDL CHOLESTEROL 116 [facility] TO EPIC CONVERSION Comment: Result Comment: UNITS: mg/dL (calc) Target for non-HDL cholesterol is 30 mg/dL higher than LDL cholesterol target. Test Performed at: [facility] [address] [place], [place] ??[phone] ? JELLY MAYERS DO,MPH 09/14/2016 7:48 AM CDT 09/14/2016 7:48 AM CDT Narrative [facility] TO EPIC CONVERSION - 09/14/2016 7:52 AM CDT Result Communication: Call patient with results Mick Flowers MD LABORATORY Final Result [facility] TO EPIC CONVERSION * CBC W/DIFF AUTOMATED (09/14/2016 7:48 AM CDT) Pathologist [facility] WBC 4.1 3.8 - 10.8 [facility] TO EPIC CONVERSION Comment:Result Comment: UNIT S: Thousand/uL Red Blood Cell Count 4.91 4.20 - 5.80 Million/uL [facility] TO EPIC CONVERSION HGB 15.0 13.2 - 17.1 g/dL [facility] TO EPIC CONVERSION HCT 44.5 38.5 - 50.0 % [facility] TO EPIC CONVERSION MCV 90.5 80.0 - 100.0 fL [facility] TO EPIC CONVERSION MCH (QHPE) 30.6 27.0 - 33.0 pg [facility] TO EPIC CONVERSION MCHC 33.8 32.0 - 36.0 g/dL [facility] TO EPIC CONVERSION RDW (QHPE) 13.5 11.0 - 15.0 % [facility] TO EPIC CONVERSION PLT 205 140 - 400 [facility] T O EPIC CONVERSION Comment:Result Comment: UNIT S: Thousand/uL MPV 9.4 7.5 - 12.5 fL [facility] TO EPIC CONVERSION ABS. NEUTROPHILS 2419 1500 - 7800 cells/uL [facility] TO EPIC CONVERSION ABS. LYMPHOCYTES 1160 850 - 3900 cells/uL [facility] TO EPIC CONVERSION ABS. MONOCYTES 267 200 - 950 cells/uL [facility] TO EPIC CONVERSION ABS. EOSINOPHILS 238 15 - 500 cells/uL [facility] TO EPIC CONVERSION ABS. BASOPHILS 16 0 - 200 cells/uL [facility] TO EPIC CONVERSION SEG NEUTROPHILS 59.0 % MED[facility] ROUP TO EPIC CONVERSION LYMPHOCYTES 28.3 % [facility] TO EPIC CONVERSION MONOCYTES 6.5 % [facility] T O EPIC CONVERSION EOSINOPHILS 5.8 % [facility] TO EPIC CONVERSION BASOPHILS 0.4 % [facility] T O EPIC CONVERSION Comment: Result Comment: Test Performed at: [facility] [address] ??[phone] ? JELLY MAYERS DO,MPH 09/14/2016 7:48 AM CDT 09/14/2016 7:48 AM CDT Narrative [facility] TO EPIC CONVERSION - 09/14/2016 7:52 AM CDT Result Communication: Call patient with results Mick Flowers MD LABORATORY Final Result [facility] TO EPIC CONVERSION documented in this encounter Visit Diagnoses Not on filedocumented in this encounter Care Teams Rand Butting Machine Operator Relationship Specialty Start Date End Date Mick Flowers MD [address] [place] [address] PCP - General 10/15/14 documented as of this encounter
--- OUTSIDE RECORDS SUMMARY | 2024-06-29 00:13 | XMS_ITS | Encounter Summary ---
Author Organization [facility] Address [address] [place] [address]. [place], [place] [address] [place] [address] Care Team Providers Care Sparmaker Name Role Phone Mick Flowers MD Primary Care Provider [phone] Encounter Details Date Type Department Care Team (Latest Contact Info) Description 06/12/2016 Abstract [facility] Medical Group Social History Tobacco Use [...] HOSPITAL Medical Group Family & Internal Medicine [address] [address] Mick Flowers MD [address] [place] [address] documented as of this encounter Visit Diagnoses Not on filedocumented in this encounter Care Teams Sparmaker Relationship Specialty Start Date End Date Mick Flowers MD [address] [place] [address] PCP - General 10/15/14 documented as of this encounter
--- OUTSIDE RECORDS SUMMARY | 2024-06-29 00:13 | XMS_ITS | Encounter Summary ---
Author Organization [facility] Address [address] [place] [address]. [place], [place] [address] [place] [address] Care Team Providers Care Pmo Project Manager Name Role Phone Mick Flowers MD Primary Care Provider [phone] Encounter Details Date Type Department Care Team (Latest Contact Info) Description 09/08/2015 Abstract [facility] Medical Group Mick Flowers MD [facility] [place] [address] Social History Tobacco Use Types Packs/Day Years [...] Office Visit [facility] Medical [facility] Family & Internal Medicine [facility] [address] [place] [address] Mick Flowers MD [address] [place] [address] documented as of this encounter Visit Diagnoses Not on filedocumented in this encounter Care Teams Pmo Project Manager Relationship Specialty Start Date End Date Mick Flowers MD [address] [place] [address] PCP - General 10/15/14 documented as of this encounter
--- OUTSIDE RECORDS SUMMARY | 2024-06-29 00:13 | XMS_ITS | Encounter Summary ---
Author Organization [facility] Address [address] [place] [address]. [place], [place] [address] [place] [address] Care Team Providers Care Paper Bag Maker Name Role Phone Mick Flowers MD Primary Care Provider [phone] Encounter Details Date Type Department Care Team (Latest Contact Info) Description 09/26/2017 Abstract [facility] Medical Group Social History Tobacco Use Types Packs/Day Years Used Date Smoking Tobacco: Never Sex and Gender Information Value Date Recorded Sex Assigned at Male 10/07/2018 11:33 AM CDT Legal Sex Male 9:27 PM CDT Gender Identity Male 10/07/2018 11:33 AM CDT Sexual Orientation Straight 10/07/2018 11 :33 AM CDT documented as of this encounter Progress Notes * Mick Flowers MD - 09/26/2017 10:00 AM CDT Message Labs are good. Verified Results QU-LIPID PANEL WITH REFLEX TO DIRECT LDL [id number] 08:03AM Mick Flowers Test Name Result Flag Reference CHOLESTEROL, TOTAL 197 mg/dL <200 HDL CHOLESTEROL 77 mg/dL >40 TRIGLYCERIDES 59 mg/dL <150 LDL-CHOLESTEROL 106 H UNITS: mg/dL (calc) Reference range: <100 Desirable range <100 mg/dL for patients with CHD or diabetes and <70 mg/dL for diabetic patients with known heart disease. LDL-C is now calculated using the [employer] calculation, which is a validated novel method providing better accuracy than the Friedewald equation in the estimation of LDL-C. Sergey SOTO et al. MAKENZIE. 2013;310(19): 9972-7012 (http://education.[employer].MedStartr/faq/ARF166) CHOL/HDLC RATIO 2.6 (calc) <5.0 NON HDL CHOLESTEROL 120 <130 UNITS: mg/dL (calc) For patients with diabetes plus 1 major ASCVD risk factor, treating to a non-HDL-C goal of <100 mg/dL (LDL-C of <70 mg/dL) is considered a therapeutic option. Test Performed at: [facility] [address] [place] [address] JELLY MAYERS DO,MPH QU-COMPREHENSIVE METABOLIC PANEL [id number] 25Sep2017 08:03AM Mick Flowers Test Name Result Flag Reference GLUCOSE 109 mg/dL H 65-99 Fasting reference interval For someone without known diabetes, a glucose value between 100 and 125 mg/dL is consistent with prediabetes and should be confirmed with a follow-up test. UREA NITROGEN (BUN) 16 mg/dL 7-25 CREATININE 0.90 mg/dL 0.70-1.33 For patients >49 years of age, the reference limit for Creatinine is approximately 13% higher for people identified as -Surinamese. eGFR NON-AFR. BURKINAN 97 > OR = 60 UNITS: mL/min/1.73m2 eGFR 113 > OR = 60 UNITS: mL/min/1.73m2 BUN/CREATININE RATIO 6-22 NOT APPLICABLE (calc) SODIUM 140 mmol/L 135-146 POTASSIUM 4.1 mmol/L 3.5-5.3 CHLORIDE 105 mmol/L 98-110 CARBON DIOXIDE 27 mmol/L 20-31 CALCIUM 9.9 mg/dL 8.6-10.3 PROTEIN, TOTAL 7.0 g/dL 6.1-8.1 ALBUMIN 4.4 g/dL 3.6-5.1 GLOBULIN 2.6 1.9-3.7 UNITS: g/dL (calc) ALBUMIN/GLOBULIN RATIO 1.7 (calc) 1.0-2.5 BILIRUBIN, TOTAL 0.5 mg/dL 0.2-1.2 ALKALINE PHOSPHATASE 98 U/L 40-115 AST 27 U/L 10-35 ALT 34 U/L 9-46 Test Performed at: [facility] [address] [place] [address] JELLY MAYERS DO,MPH QU-CREATINE KINASE, TOTAL 374 25Sep2017 08:03AM Mick Flowers Test Name Result Flag Reference CREATINE KINASE, TOTAL 245 U/L H 44-196 Test Performed at: [facility] [address] JELLY MAYERS DO,MPH QU-URINALYSIS, COMPLETE W/REFLEX TO CULTURE 3020 25Sep2017 08:03AM Mick Flowers Test Name Result Flag Reference COLOR YELLOW YELLOW APPEARANCE CLEAR CLEAR SPECIFIC GRAVITY 1.018 1.001-1.035 PH 7.0 5.0-8.0 GLUCOSE NEGATIVE NEGATIVE BILIRUBIN NEGATIVE NEGATIVE KETONES NEGATIVE NEGATIVE OCCULT BLOOD NEGATIVE NEGATIVE PROTEIN NEGATIVE NEGATIVE NITRITE NEGATIVE NEGATIVE LEUKOCYTE ESTERASE NEGATIVE NEGATIVE RBC NONE SEEN /HPF < OR = 2 SQUAMOUS EPITHELIAL CELLS NONE SEEN /HPF < OR = 5 HYALINE CAST NONE SEEN /LPF NONE SEEN Test Performed at: [facility] [address] [address] JELLY MAYERS DO,MPH WBC NONE SEEN /HPF < OR = 5 BACTERIA NONE SEEN /HPF NONE SEEN REFLEXIVE URINE CULTURE NO CULTURE INDICATED Test Performed at: [facility] [address] [address] JELLY MAYERS DO,MPH QU-CBC ( INCLUDES DIFF/PLT ) [id number] 25Sep2017 08:03AM Mick Flowers Test Name Result Flag Reference WHITE BLOOD CELL COUNT 4.2 3.8-10.8 UNITS: Thousand/uL RED BLOOD CELL COUNT 5.09 Million/uL 4.20-5.80 HEMOGLOBIN 15.6 g/dL 13.2-17.1 HEMATOCRIT 45.1 % 38.5-50.0 MCV 88.6 fL 80.0-100.0 MCH 30.6 pg 27.0-33.0 MCHC 34.6 g/dL 32.0-36.0 RDW 13.1 % 11.0-15.0 PLATELET COUNT 216 140-400 UNITS: Thousand/uL MPV 11.1 fL 7.5-12.5 ABSOLUTE NEUTROPHILS 2012 cells/uL 7532-8331 ABSOLUTE LYMPHOCYTES 1457 cells/uL 850-3900 ABSOLUTE MONOCYTES 395 cells/uL 200-950 ABSOLUTE EOSINOPHILS 298 cells/uL 15-500 ABSOLUTE BASOPHILS 38 cells/uL 0-200 NEUTROPHILS 47.9 % LYMPHOCYTES 34.7 % MONOCYTES 9.4 % EOSINOPHILS 7.1 % BASOPHILS 0.9 % Test Performed at: [facility] [address] JELLY MAYERS DO,MPH QU-PSA, TOTAL 5363 25Sep2017 08:03AM Mick Flowers Test Name Result Flag Reference PSA, TOTAL 1.1 ng/mL < OR = 4.0 The total PSA value from this assay system is standardized against the WHO standard. The test result will be approximately 20% lower when compared to the equimolar-standardized total PSA ([place]). Comparison of serial PSA results should be interpreted with this fact in mind. This test was performed using the Siemens chemiluminescent method. Values obtained from different assay methods cannot be used interchangeably. PSA levels, regardless of value, should not be interpreted as absolute evidence of the presence or absence of disease. Test Performed at: [facility] [address] [place] [address] JELLY MAYERS DO,MPH QU-TSH W/REFLEX TO FT4 70784 25Sep2017 08:03AM Mick Flowers Test Name Result Flag Reference TSH W/REFLEX TO FT4 3.12 mIU/L 0.40-4.50 REPORT COMMENT: FASTING:YES Test Performed at: [facility] [address] [place] [address], [place] [address] JELLY MAYERS DO,MPH documented in this encounter Plan of Treatment Upcoming Encounters Date Type Department Care Team (Late st Contact Info) Description 09/09/2024 10:00 AM CDT Office Visit [facility] Medical Group Family & Internal Medicine - [address] [address] Mick Flowers MD [address] [place] [address] documented as of this encounter Visit Diagnoses Not on filedocumented in this encounter Care Teams Paper Bag Maker Relationship Specialty Start Date End Date Mick Flowers MD [address] [place] [address] PCP - General 10/15/14 documented as of this encounter
--- OUTSIDE RECORDS SUMMARY | 2024-06-29 00:13 | XMS_ITS | Encounter Summary ---
Author Organization [facility] Address [address] [place] [address]. [place], [place] [address] [place] [address] Care Team Providers Care Data Science And Iot Manager Name Role Phone Mick Flowers MD Primary Care Provider [phone] Encounter Details Date Type Department Care Team (Latest Contact Info) Description 08/24/2016 Abstract [facility] Medical Group Social History Tobacco Use Types Packs/Day Years Used Date Smoking Tobacco: Never Sex and Gender Information Value Date Recorded Sex Assigned at Male 10/07/2018 11:33 AM CDT Legal Sex Male 9:27 PM CDT Gender Identity Male 10/07/2018 11:33 AM CDT Sexual Orientation Straight 10/07/2018 11 :33 AM CDT documented as of this encounter Miscellaneous Notes * Letter - Melanie Carroll Md, MD - 08/24/2016 2:58 PM CST Date: Aug 24, 2016 THIS IS A REQUEST FOR AN ADMINISTRATIVE APPEAL Grievances and Appeals Department, Patient Doc Emery is under my care for multiple sclerosis, which requires the use of Edex Kit. Mr. Emery has been using this medication for many years and is doing very well on the medication forerectile dysfunction due to his multiple sclersosis. It is my professional. opinion that Mr Yuly lopez continue taking this medication. For questions or concerns I can be reached at [phone]. Sincerely, Mick Flowers M.D. Electronically signed by:Kanchan Zuñiga MA Aug 24 2016 3:06PM FIRE INFORMATION OFFICER Author documented in this encounter Plan of Treatment Upcoming Encounters Date Type Department Care Team (Late st Contact Info) Description 09/09/2024 10:00 AM CDT Office Visit [facility] Medical Group Family & Internal Medicine [address] [address] Mick Flowers MD [address] [place] [address] documented as of this encounter Visit Diagnoses Not on filedocumented in this encounter Care Teams Data Science And Iot Manager Relationship Specialty Start Date End Date Mick Flowers MD [address] [place] [address] PCP - General 10/15/14 documented as of this encounter
--- OUTSIDE RECORDS SUMMARY | 2024-06-29 00:13 | XMS_ITS | Encounter Summary ---
Author Organization [facility] Address [address] [place] [address]. [place], [place] [address] [place] [address] Care Team Providers Care Corporate Sales Trainer Name Role Phone Mick Flowers MD Primary Care Provider [phone] Encounter Details Date Type Department Care Team (Latest Contact Info) Description 11/30/2016 Abstract [facility] Medical Group Social History Tobacco Use Types Packs/Day Years Used Date Smoking Tobacco: Never Sex and Gender Information Value Date Recorded Sex Assigned at Male 10/07/2018 11:33 AM CDT Legal Sex Male 9:27 PM CDT Gender Identity Male 10/07/2018 11:33 AM CDT Sexual Orientation Straight 10/07/2018 11 :33 AM CDT documented as of this encounter Progress Notes * Mick Flowers MD - 11/30/2016 3:53 PM CDT Message Recorded as Task Date: 11/30/2016 10:22 AM, Created By: Umu Marcano Task Name: Medical Complaint Callback Assigned To: [facility] [place] Kristie Regarding Patient: Doc Emery, Status: In Progress Comment: Umu Marcano - 30 Nov 2016 10:22 AM TASK CREATED Caller: Self; Medical Complaint; Patient is requesting to have his prescription set up as a 90 day refill instead of 30 day. Edex 20 mcg He wants to have his sent to [facility] [phone] He would like a call back to know what is able to happen for this request. [phone] Shraddha Wheeler - 30 Nov 2016 3:53 PM TASK IN PROGRESS Message: Pt updated - rx to [facility] Plan 1. Edex 20 MCG Intracavernosal Kit; INJECT 1 ML CAVERNOSAL 10-30 MINUTES PRIOR TO INTERCOURSE Rx By: Mick Flowers; Dispense: 90 Days ; #:12 X 1 Kit Box; Refill: 0; For: Multiple sclerosis; KYLE = N; Sent To: [facility]; Last Updated By: Shraddha Wheeler; 08/15/2016 2:43:41 PM Formulary Override Reason: Drug not appropriate now, review in future Signatures Electronically signed by : Shraddha Wheeler, R.NChristy; Nov 30 2016 3:56PM SUBMARINE WORKER (Author) documented in this encounter Plan of Treatment Upcoming Encounters Date Type Department Care Team (Late st Contact Info) Description 09/09/2024 10:00 AM CDT Office Visit [facility] Medical Group Family & Internal Medicine [address] [address] Mick Flowers MD [address] [place] [address] documented as of this encounter Visit Diagnoses Not on filedocumented in this encounter Care Teams Corporate Sales Trainer Relationship Specialty Start Date End Date Mick Flowers MD [address] [place] [address] PCP - General 10/15/14 documented as of this encounter
--- OUTSIDE RECORDS SUMMARY | 2024-06-29 00:13 | XMS_ITS | Encounter Summary ---
Author Organization [facility] Address [address] [place] [address]. [place], [place] [address] [place] [address] Care Team Providers Care Mold Sander Name Role Phone Mick Flowers MD Primary Care Provider [phone] Encounter Details Date Type Department Care Team (Latest Contact Info) Description 04/02/2017 Abstract [facility] Medical Group Social History Tobacco Use [...] HOSPITAL Medical Group Family & Internal Medicine [address] [address] Mick Flowers MD [address] [place] [address] documented as of this encounter Visit Diagnoses Not on filedocumented in this encounter Care Teams Mold Sander Relationship Specialty Start Date End Date Mick Flowers MD [address] [place] [address] PCP - General 10/15/14 documented as of this encounter
--- OUTSIDE RECORDS SUMMARY | 2024-06-29 00:13 | XMS_ITS | Encounter Summary ---
Author Organization [facility] Address [address] [place] [address]. [place], [place] [address] [place] [address] Care Team Providers Care Program Project Manager Name Role Phone Mick Flowers MD Primary Care Provider [phone] Encounter Details Date Type Department Care Team (Latest Contact Info) Description 09/22/2016 Abstract [facility] Medical Group Social History Tobacco [...] Description 09/09/2024 10:00 AM CDT Office Visit [facility] Medical Group Family & Internal Medicine [address] [phone] Mick Flowers MD [address] [place] [address] documented as of this encounter Visit Diagnoses Not on filedocumented in this encounter Care Teams Program Project Manager Relationship Specialty Start Date End Date Mick Flowers MD [address] [place] [address] PCP - General 10/15/14 documented as of this encounter
--- OUTSIDE RECORDS SUMMARY | 2024-06-29 00:13 | XMS_ITS | Encounter Summary ---
Author Organization [facility] Address [address] [place] [address]. [place], [place] [address] [place] [address] Care Team Providers Care Cloth Bleaching Range Back Tender Name Role Phone Mick Flowers MD Primary Care Provider [phone] Encounter Details Date Type Department Care Team (Latest Contact Info) Description 10/22/2015 Abstract [facility] Medical Group Social History Tobacco [...] Description 09/09/2024 10:00 AM CDT Office Visit [facility] Medical Group Family & Internal Medicine [address] [address] Mick Flowers MD [address] [place] [address] documented as of this encounter Visit Diagnoses Not on filedocumented in this encounter Care Teams Cloth Bleaching Range Back Tender Relationship Specialty Start Date End Date Mick Flowers MD [address] [place] [address] PCP - General 10/15/14 documented as of this encounter
--- OUTSIDE RECORDS SUMMARY | 2024-06-29 00:13 | XMS_ITS | Encounter Summary ---
Author Organization [facility] Address [address] [place] [address]. [place], [place] [address] [place] [address] Care Team Providers Care Dials Inspector Name Role Phone Mick Flowers MD Primary Care Provider [phone] Encounter Details Date Type Department Care Team (Latest Contact Info) Description 06/28/2017 Abstract [facility] Medical Group Social History Tobacco Use [...] Notes * Generic Conversion MD Denise - 06/28/2017 12:58 PM CST Message Recorded as Task Date: 06/28/2017 10:47 AM, Created By: Umu Marcano Task Name: Medical Complaint Callback Assigned To: [facility] [place] [place]ie Regarding Patient: Doc Emery, Status: In Progress Comment: Umu Marcano - 28 Jun 2017 10:47 AM TASK CREATED Pt requesting if he can get Shingles Shot during his appointment 09/13/17 @ 10am #[phone] Mick Flowers - 28 Jun 2017 11:14 AM TASK REASSIGNED: Previously Assigned To Mick Flowers Okay shingle vaccine, but we do not do these in the office. Shraddha Wheeler - 28 Jun 2017 12:58 PM TASK IN PROGRESS Message: Pt updated-[facility] Signatures Electronically signed by : Shraddha Wheeler, R.N.; Jun 28 2017 12:59PM SMOKE JUMPER SUPERVISOR (Author) documented in this encounter Plan of Treatment Upcoming Encounters Date Type Department Care Team (Late st Contact Info) Description 09/09/2024 10:00 AM CDT Office Visit [facility] Medical Group Family & Internal Medicine [address] [address] Mick Flowers MD [address] [place] [address] documented as of this encounter Visit Diagnoses Not on filedocumented in this encounter Care Teams Dials Inspector Relationship Specialty Start Date End Date Mick Flowers MD [address] [place] [address] PCP - General 10/15/14 documented as of this encounter
--- OUTSIDE RECORDS SUMMARY | 2024-06-29 00:13 | XMS_ITS | Encounter Summary ---
Author Organization [facility] Address [address] [place] [address]. [place], [place] [address] [place] [address] Care Team Providers Care Rug Cleaner Name Role Phone Mick Flowers MD Primary Care Provider [phone] Encounter Details Date Type Department Care Team (Latest Contact Info) Description 08/24/2015 Abstract [facility] Medical Group [...] this encounter Miscellaneous Notes * Letter - Generic Conversion MD Denise - 08/24/2015 12:00 AM CST This legacy Allscripts note was not finalized in Allscripts. It had a status of Unsigned on 03/22/2018 September 03, 2015 THIS IS A REQUEST FOR AN ADMINISTRATIVE APPEAL Lonnie Tse and Appeals Department, Doc Emery patient is under my care for multiple sclerosis, which requires the use of Edex kit. has been using this medication for many years and is doing very well on the medication for erectile dysfunction due to his multiple sclerosis. It is my professional opinion that Mr. Emery should continue taking this medication. For questions or concerns I can be reached at [phone] Sincerely, Mick Flowers M.D. documented in this encounter Plan of Treatment Upcoming Encounters Date Type Department Care Team (Late st Contact Info) Description 09/09/2024 10:00 AM CDT Office Visit [facility] Medical Group Family & Internal Medicine - [address] [phone] Mick Flowers MD [address] [place] [address] documented as of this encounter Visit Diagnoses Not on filedocumented in this encounter Care Teams Rug Cleaner Relationship Specialty Start Date End Date Mick Flowers MD [address] [place] [address] PCP - General 10/15/14 documented as of this encounter
--- OUTSIDE RECORDS SUMMARY | 2024-06-29 00:13 | XMS_ITS | Encounter Summary ---
Author Organization [facility] Address [address] [place] [address]. [place], [place] [address] [place] [address] Care Team Providers Care Enterprise Software Developer Name Role Phone Mick Flowers MD Primary Care Provider [phone] Encounter Details Date Type Department Care Team (Late st Contact Info) Description 09/13/2017 Abstract [facility] Medical Group Family & Internal Medicine [address] [phone] Mick Flowers MD [address] [place] [address] Social History Tobacco Use Types Packs/Day Years [...] Sign Reading Time Taken Comments Blood Pressure 120/80 09/13/2017 10:42 AM CDT Pulse 59 09/13/2017 10:42 AM CDT Temperature - - Respiratory Rate - - Oxygen Saturation - - Inhaled Oxygen Concentration - - Weight 82.1 kg (181 lb) 09/13/2017 10:42 AM CDT Height 180.3 cm (5' 11 ) 09/13/2017 10:42 AM CDT Body Mass Index 25.24 09/13/2017 10:42 AM CDT documented in this encounter Progress Notes * Mick Flowers MD - 09/13/2017 10:00 AM CDT Reason For Visit Reason For Visit: Chronic Recheck Visit Chief Complaint Patient is here for a yearly check up History of Present Illness HM, Adult Male: The patient is being seen for a health maintenance evaluation. The last health maintenance visit was 1 year(s) ago. General Health: Lifestyle:. He consumes a diverse and healthy diet. . He does not have any weight concerns. . He exercises regularly. . He does not use tobacco. . He consumes alcohol. . He denies drug use.. Reproductive health:. the patient is sexually active.. Screening: cancer screening reviewed and updated.. metabolic screening reviewed and updated.. risk screening reviewed and updated.. Review of Systems Constitutional: negative. Head and Face: negative. Eyes: negative. ENT: negative. Cardiovascular: negative. Respiratory: negative. Gastrointestinal: negative. Genitourinary: negative. Musculoskeletal: negative. Neurological: negative. Psychiatric: negative. Endocrine: negative. Hematologic and Lymphatic: negative. Active Problems 1. Anxiety (300.00) (F41.9) 2. Benign essential hypertension (401.1) (I10) 3. Colon cancer (153.9) (C18.9) 4. Eczema (692.9) (L30.9) 5. Erectile dysfunction (607.84) (N52.9) 6. Hyperlipidemia (272.4) (E78.5) 7. Multiple sclerosis (340) (G35) 8. Screening for prostate cancer (V76.44) (Z12.5) 9. Self-catheterizes urinary bladder (V49.89) (Z78.9) Past Medical History ?? History of herpes zoster (V12.09) (Z86.19) Surgical History ?? History of Bladder Surgery ?? History of Colonoscopy Family History Mother ?? Family history of Cancer Father ?? Family history of Benign Essential Hypertension ?? Family history of Cancer Family History ?? Family history of Cancer Social History ?? Never a smoker Current Meds 1. ALPRAZolam 0.5 MG Oral Tablet; TAKE 1 TABLET BY MOUTH THREE TIMES DAILY NEEDED; Therapy: 30Efu7968 to (Evaluate:31Aug2017) Requested for: [id number]; Last Rx:[id number] Ordered Rx By: Mick Flowers; Dispense: 10 Days ; #:30 Tablet; Refill: 0; For: Anxiety; KYLE = N; [facility]; Msg to Pharmacy: [phone] 2. Ampyra 10 MG Oral Tablet Extended Release 12 Hour; Therapy: 20Vmv6802 to Recorded Rx By: SAHARA WEBB; Dispense: 30 Days ; #:60; Refill: 0; KYLE = N; Record; Last Updated By: Debby Solis; 08/05/2015 11:21:48 AM 3. Atorvastatin Calcium 20 MG Oral Tablet; Take 1 tablet daily; Therapy: 26Jun2012 to (Last Rx:[id number]) Requested for: 56Dih5499 Ordered Rx By: Mick Flowers; Dispense: 0 Days ; #:90 Tablet; Refill: 0; For: Hyperlipidemia; KYLE = N; Verified Transmission to [facility]; Msg to Pharmacy: patient needs appointment; Last Updated By: Fear Hunters; 06/19/2017 10:54:52 AM 4. BD Insulin Syringe MicroFine 28G X 1/2 0.5 ML; USE DIRECTED; Therapy: 22Apr2015 to (Evaluate:75Dlk0036) Requested for: 22Apr2015; Last Rx:22Apr2015 Ordered Rx By: Mick Flowers; Dispense: 30 Days ; #:100 EA; Refill: 1; For: Multiple sclerosis; KYLE = N; Verified Transmission to [id number]; Last Updated By: Fear Hunters; 04/22/2015 1:26:06 PM 5. Edex 20 MCG Intracavernosal Kit; INJECT 1 ML CAVERNOSAL 10-30 MINUTES PRIOR TO INTERCOURSE; Therapy: 03Oct2012 to (Evaluate:84Kap5528) Requested for: 26Mar2017; Last Rx:26Mar2017 Ordered Rx By: Mick Flowers; Dispense: 90 Days ; #:12 X 1 Kit Box; Refill: 0; For: Multiple sclerosis; KYLE = N; Verified Transmission to [facility]; Last Updated By: Fear Hunters; 09/13/2017 11:13:41 AM 6. Felodipine ER 5 MG Oral Tablet Extended Release 24 Hour; Take 1 tablet daily; Therapy: 03Oct2012 to (Last Rx:06Sep2017) Requested for: 06Sep2017 Ordered Rx By: Mick Flowers; Dispense: 0 Days ; #:90 Tablet; Refill: 3; For: Benign essential hypertension; KYLE = N; Verified Transmission to [facility]; Last Updated By: [employer]; 09/06/2017 3:48:21 PM 7. HydroCHLOROthiazide 25 MG Oral Tablet; TAKE 1 TABLET DAILY DIRECTED; Therapy: 28Jun2015 to (Evaluate:02Sep2017) Requested for: 07Sep2016; Last Rx:07Sep2016 Ordered Rx By: Mick Flowers; Dispense: 90 Days ; #:90 Tablet; Refill: 3; For: Benign essential hypertension; KYLE = N; [email or web address]; Last Updated By: Dougie Sterecycle; 09/13/2017 10:47:04 AM 8. Losartan Potassium 100 MG Oral Tablet; TAKE 1 TABLET EVERY DAY (NEED APPOINTMENT FOR REFILLS); Therapy: 63Odi2209 to (Last Rx:27Aug2017) Requested for: 27Aug2017 Ordered Rx By: Mick Flowers; Dispense: 0 Days ; #:90 Tablet; Refill: 0; For: Benign essential hypertension; KYLE = N; Verified Transmission to [facility]; Last Updated By: Fear Hunters; 08/27/2017 3:17:38 PM 9. Urea 40 % External Cream; APPLY AND RUB IN A THIN FILM TO AFFECTED AREA(S) DAILY; Therapy: 89Tnv3159 to (Evaluate:25Aug2015) Requested for: 86Sjv7406; Last Rx:[id number] Ordered Rx By: Mick Flowers; Dispense: 0 Days ; #:1 X 198 GM Bottle; Refill: 5; For: Eczema; KYLE = N; Verified Transmission to [facility]; Last Updated By: Fear Hunters; 08/05/2015 11:39:58 AM Allergies 1. No Known Drug Allergies Recorded By: Adore Quijano; 10/03/2012 9:32:22 AM Immunizations 1 2 3 Influenza 16-Apr-2013 Zoster 12-Jul-2017 Vitals Recorded: 13Sep2017 10:42AM Heart Rate 59 Respiration 14 Systolic 120 Diastolic 80 O2 Saturation 98 Height 5 ft 11 in Weight 181 lb BMI Calculated 25.24 BSA Calculated 2.02 Physical Exam Constitutional General appearance: No acute distress, well appearing and well nourished. Eyes Conjunctiva and lids: No swelling, erythema, or discharge. Pupils and irises: Equal, round and reactive to light. Ears, Nose, Mouth, and Throat External inspection of ears and nose: Normal. Otoscopic examination: Tympanic membrane translucent with normal light reflex. Canals patent without erythema. Oropharynx: Normal with no erythema, edema, exudate or lesions. Pulmonary Respiratory effort: No increased work of breathing or signs of respiratory distress. Auscultation of lungs: Clear to auscultation. Cardiovascular Palpation of heart: Normal PMI, no thrills. Auscultation of heart: Normal rate and rhythm, normal S1 and S2, without murmurs. Examination of extremities for edema and/or varicosities: Normal. Musculoskeletal Gait and station: Normal. Neurologic Cranial nerves: Cranial nerves 2-12 intact. Psychiatric Mood and affect: Normal. Assessment 1. Encounter for preventive health examination (V70.0) (Z00.00) Plan Anxiety ?? ALPRAZolam 0.5 MG Oral Tablet; TAKE 1 TABLET BY MOUTH THREE TIMES DAILY NEEDED Rx By: Mick Flowers; Dispense: 10 Days ; #:30 Tablet; Refill: 0; For: Anxiety; KYLE = N; Call Rx;Last Updated By: Gela Solo; 09/13/2017 11:13:16 AM Benign essential hypertension ?? HydroCHLOROthiazide 25 MG Oral Tablet; TAKE 1 TABLET BY MOUTH DAILY DIRECTED Rx By: Mick Flowers; Dispense: 30 Days ; #:90 Tablet; Refill: 3; For: Benign essential hypertension; KYLE = N; Verified Transmission to [facility]872; Last Updated By: [employer]ieInMage Systems; 09/13/2017 10:47:04 AM Benign essential hypertension, Health Maintenance, Hyperlipidemia ?? QU-CBC ( INCLUDES DIFF/PLT ) 6399; Status:Hold For - Manual Activation; Requested for:13Sep2017; Perform:[facility]; Due:13Oct2017;Ordered; For:Benign essential hypertension, Health Maintenance, Hyperlipidemia; Ordered By:Mick Flowers; ?? QU-COMPREHENSIVE METABOLIC PANEL 81871; Status:Hold For - Manual Activation; Requested for:13Sep2017; Perform:[facility]; Due:13Oct2017;Ordered; For:Benign essential hypertension, Health Maintenance, Hyperlipidemia; Ordered By:Mick Flowers; ?? QU-CREATINE KINASE, TOTAL 374; Status:Hold For - Manual Activation; Requested for:13Sep2017; Perform:[facility]; Due:13Oct2017;Ordered; For:Benign essential hypertension, Health Maintenance, Hyperlipidemia; Ordered By:Mick Flowers; ?? QU-LIPID PANEL WITH DIRECT LDL 04150; Status:Hold For - Manual Activation; Requested for:13Sep2017; Perform:[facility]; Due:13Oct2017;Ordered; For:Benign essential hypertension, Health Maintenance, Hyperlipidemia; Ordered By:Mick Flowers; ?? QU-PSA, TOTAL 5363; Status:Hold For - Manual Activation; Requested for:13Sep2017; Perform:[facility]; Due:13Oct2017;Ordered; For:Benign essential hypertension, Health Maintenance, Hyperlipidemia; Ordered By:Mick Flowers; ?? QU-TSH W/REFLEX TO FT4 63710; Status:Hold For - Manual Activation; Requested for:13Sep2017; Perform:[facility]; Due:13Oct2017;Ordered; For:Benign essential hypertension, Health Maintenance, Hyperlipidemia; Ordered By:Mick Flowers; ?? QU-URINALYSIS, COMPLETE W/REFLEX TO CULTURE 3020; Status:Hold For - Manual Activation; Requested for:13Sep2017; Perform:[facility]; Due:13Oct2017;Ordered; For:Benign essential hypertension, Health Maintenance, Hyperlipidemia; Ordered By:Mick Flowers; Signatures Electronically signed by : Mick Flowers M.D.; Sep 13 2017 11:27AM PROMOTION SPECIALIST (Author) documented in this encounter Plan of Treatment Upcoming Encounters Date Type Department Care Team (Late st Contact Info) Description 09/09/2024 10:00 AM CDT Office Visit [facility] Medical Group Family & Internal Medicine - [address] [address] Mick Flowers MD [address] [place] [address] documented as of this encounter Visit Diagnoses Not on filedocumented in this encounter Care Teams Enterprise Software Developer Relationship Specialty Start Date End Date Mick Flowers MD [address] [place] [address] PCP - General 10/15/14 documented as of this encounter
--- OUTSIDE RECORDS SUMMARY | 2024-06-29 00:13 | XMS_ITS | Encounter Summary ---
Author Organization [facility] Address [address] [place] [address]. [place], [place] [address] [place] [address] Care Team Providers Care Health Care Consultant Name Role Phone Mick Flowers MD Primary Care Provider Encounter Details Date Type Department Care Team (Latest Contact Info) Description 12/30/2015 Abstract [facility] Medical Group , Generic Conversion, Social History Tobacco Use Types Packs/Day Years Used Date Smoking Tobacco: Never Sex and Gender Information Value Date Recorded Sex Assigned at Male 10/07/2018 11:33 AM CDT Legal Sex Male 9:27 PM CDT Gender Identity Male 10/07/2018 11:33 AM CDT Sexual Orientation Straight 10/07/2018 11 :33 AM CDT documented as of this encounter Progress Notes * Generic Conversion MD Denise - 12/30/2015 3:25 PM CDT Message Recorded as Task Date: 12/30/2015 09:11 AM, Created By: Glory Saucedo Task Name: Renew Medication Assigned To: [facility] Kristie Regarding Patient: Doc Emery, Status: Active Comment: Glory Saucedo - 30 Dec 2015 9:11 AM TASK CREATED Caller: Self; Renew Medication; Pt asking for paper rx for EDEX 20 mcg to take to another pharmacy. His insurance company keeps trying to change it to [employer]. [place] take [place] electronically, asking for the most that can be rx'd at a time to keep him from having to go up there often. Message: Printed, at , Pt updated-[facility] Signatures Electronically signed by : Shraddha Wheeler R.N.; Dec 30 2015 3:26PM LEAD SYSTEMS ARCHITECT (Author) documented in this encounter Plan of Treatment Upcoming Encounters Date Type Department Care Team (Late st Contact Info) Description 09/09/2024 10:00 AM CDT Office Visit [facility] Medical Group Family & Internal Medicine - [address] [address] Mick Flowers MD [address] [place] [address] documented as of this encounter Visit Diagnoses Not on filedocumented in this encounter Care Teams Health Care Consultant Relationship Specialty Start Date End Date Mick Flowers MD [address] [place] [address] PCP - General 10/15/14 documented as of this encounter
--- OUTSIDE RECORDS SUMMARY | 2024-06-29 00:13 | XMS_ITS | Encounter Summary ---
Author Organization [facility] Address [address] [place] [address]. [place], [place] [address] [place] [address] Care Team Providers Care Film Rental Clerk Name Role Phone Mick Flowers MD Primary Care Provider [phone] Encounter Details Date Type Department Care Team (Latest Contact Info) Description 09/29/2015 Abstract [facility] Medical Group Social History Tobacco Use [...] 09/09/2024 10:00 AM CDT Office Visit [facility] Medical Group Family & Internal Medicine [address] [phone] Mick Flowers MD [address] [place] [address] documented as of this encounter Visit Diagnoses Not on filedocumented in this encounter Care Teams Film Rental Clerk Relationship Specialty Start Date End Date Mick Flowers MD [address] [place] [address] PCP - General 10/15/14 documented as of this encounter
--- OUTSIDE RECORDS SUMMARY | 2024-06-29 00:13 | XMS_ITS | Encounter Summary ---
Author Organization [facility] Address [address] [place] [address]. [place], [place] [address] [place] [address] Care Team Providers Care Compensation Specialist Name Role Phone Mick Flowers MD Primary Care Provider [phone] Encounter Details Date Type Department Care Team (Latest Contact Info) Description 10/10/2016 Abstract [facility] Social History Tobacco Use Types [...] Description 09/09/2024 10:00 AM CDT Office Visit [facility] Family & Internal Medicine [address] [phone] Mick Flowers MD [address] [place] [address] documented as of this encounter Visit Diagnoses Not on filedocumented in this encounter Care Teams Compensation Specialist Relationship Specialty Start Date End Date Mick Flowers MD [address] [place] [address] PCP - General 10/15/14 documented as of this encounter
--- OUTSIDE RECORDS SUMMARY | 2024-06-29 00:13 | XMS_ITS | Encounter Summary ---
Author Organization [facility] Address [address] [place] [address]. [place], [place] [address] [place] [address] Care Team Providers Care Electro Mechanical Designer Name Role Phone Mick Flowers MD Primary Care Provider [phone] Encounter Details Date Type Department Care Team (Latest Contact Info) Description 05/30/2017 Abstract [facility] Social History Tobacco Use [...] Notes * Generic Conversion MD Denise - 05/30/2017 7:20 AM CST Message Recorded as Task Date: 09/26/2016 09:03 AM, Created By: Wilma Pedersen Task Name: Medical Complaint Callback Assigned To: Shraddha Wheeler Regarding Patient: Doc Emery, Status: Active Comment: Wilma Pedersen - 26 Sep 2016 9:03 AM TASK CREATED Caller: Self; Medical Complaint; pt call back stated that Birdie was checking on approvial for a rx. The appeal was put in a month ago. Debby Solis - 26 Sep 2016 5:33 PM TASK REASSIGNED: Previously Assigned To [facility] Team Amberly Laboy - 03 Oct 2016 2:15 PM TASK EDITED Pt called back to check on appeal for Edex. Said it's been well over a month and would like to hearsomething [phone] Vidhi Hazel - 10 Oct 2016 1:05 PM TASK EDITED Left voicemail for patient regarding status of request. Birdie sent an additional appeal this morning to the Medical Benefits division since the Pharm division denied the original appeal. [id number] Message: done-medina Signatures Electronically signed by : Shraddha Wheeler R.N.; May 30 2017 7:23AM BRANCH OFFICE ADMINISTRATOR (Author) documented in this encounter Plan of Treatment Upcoming Encounters Date Type Department Care Team (Late st Contact Info) Description 09/09/2024 10:00 AM CDT Office Visit [facility] Family & Internal Medicine - [address] [phone] Mick Flowers MD [address] [place] [address] documented as of this encounter Visit Diagnoses Not on filedocumented in this encounter Care Teams Electro Mechanical Designer Relationship Specialty Start Date End Date Mick Flowers MD [address] [place] [address] PCP - General 10/15/14 documented as of this encounter
--- OUTSIDE RECORDS SUMMARY | 2024-06-29 00:13 | XMS_ITS | Encounter Summary ---
Author Organization [facility] Address [address] [place] [address]. [place], [place] [address] [place] [address] Care Team Providers Care Recreation Coordinator Name Role Phone Mick Flowers MD Primary Care Provider Encounter Details Date Type Department Care Team (Late st Contact Info) Description 09/07/2016 Abstract [facility] Medical Group Family & Internal Medicine [address] [phone] Mick Flowers MD [address] [place] [address] Social History Tobacco Use Types Packs/Day Years [...] Reading Time Taken Comments Blood Pressure 120/80 09/07/2016 11:06 AM CDT Pulse 63 09/07/2016 11:06 AM CDT Temperature - - Respiratory Rate - - Oxygen Saturation - - Inhaled Oxygen Concentration - - Weight 83 kg (183 lb) 09/07/2016 11:06 AM CDT Height 180.3 cm (5' 11 ) 09/07/2016 11:06 AM CDT Body Mass Index 25.52 09/07/2016 11:06 AM CDT documented in this encounter Progress Notes * Mick Flowers MD - 09/07/2016 10:15 AM CDT Reason For Visit Chronic Recheck Visit Chief Complaint Patient is following up HTN and Hyperlipidemia History of Present Illness PHQ-9 Depression Questionnaire: Over the past 2 [...] way? Not at all. TOTAL SCORE: 0. REALM SF: Date: 09/07/16 Examiner: WILL Grade Completed: Reading Level: 12+ Can Pronounce: Menopause, Antibiotics, Exercise, Jaundice, Rectal, Anemia, Behavior Unable to Pronounce: Hyperlipidemia (Follow-Up): The patient states his hyperlipidemia has been under good control sincethe last visit. Comorbid Illnesses: hypertension. He has no significant interval events. Symptoms: The patient is currently asymptomatic. Associated symptoms include no focal neurologic deficits and no memory loss. Medications: the patient is adherent with his medication regimen. He denies medication side effects. The patient is doing well with his hyperlipidemia goals. Hypertension (Follow-Up): The patient presents for follow-up of primary hypertension. The patient states he has been doing well with his blood pressure control since the last visit. He has no comorbid illnesses. He has no significant interval events. Symptoms: The patient is currently asymptomatic. Home monitoring: The patient checks his blood pressure regularly. Blood pressure control has been good. Medications: the patient is adherent with his medication regimen. He denies medication side effects. Disease Management: the patient is doing well with his blood pressure goals. Multiple Sclerosis (Follow-Up): The patient is being seen for follow-up of multiple sclerosis. The patient reports doing well. He has had no significant interval events. Associated symptoms: urinary retention. The patient is not currently on medication for this problem. Disease management: the patient is doing well with his goals. Erectile Disorder: The patient is being seen for follow-up of erectile disorder. Symptoms: erectile dysfunction. Associated Symptoms: he currently has no accompanying symptoms. Active Problems 1. Anxiety (300.00) (F41.9) 2. Benign essential hypertension (401.1) (I10) 3. Eczema (692.9) (L30.9) 4. Hyperlipidemia (272.4) (E78.5) 5. Multiple sclerosis (340) (G35) 6. Screening for prostate cancer (V76.44) (Z12.5) 7. Self-catheterizes urinary bladder (V49.89) (Z78.9) Past Medical History 1. History of herpes zoster (V12.09) (Z86.19) Surgical History 1. History of Bladder Surgery 2. History of Colonoscopy Family History 1. Family history of Cancer 2. Family history of Benign Essential Hypertension 3. Family history of Cancer 4. Family history of Cancer Social History ?? Never a smoker Current Meds 1. ALPRAZolam 0.5 MG Oral Tablet; TAKE 1 TABLET BY MOUTH THREE TIMES DAILY NEEDED; Therapy: 03Oct2012 to (Evaluate:18Jul2016) Requested for: 63Sid5051; Last Rx:[id number] Ordered 2. Ampyra 10 MG Oral Tablet Extended Release 12 Hour; Therapy: 42Mqp2177 to Recorded 3. Atorvastatin Calcium 20 MG Oral Tablet; Take 1 tablet daily; Therapy: 26Jun2012 to (Last Rx:[id number]) Requested for: 71Fex4048 Ordered 4. BD Insulin Syringe MicroFine 28G X 1/2 0.5 ML Miscellaneous; USE DIRECTED; Therapy: 22Apr2015 to (Evaluate:10Jxx2225) Requested for: 22Apr2015; Last Rx:[id number] Ordered 5. Edex 20 MCG Intracavernosal Kit; INJECT 1 ML CAVERNOSAL 10-30 MINUTES PRIOR TO INTERCOURSE; Therapy: 17Xxg7957 to (Evaluate:18Bgy6319) Requested for: 58Luy6766; Last Rx:[id number] Ordered 6. Felodipine ER 5 MG Oral Tablet Extended Release 24 Hour; Take 1 tablet daily; Therapy: 66Ofm5319 to (Last Rx:[id number]) Requested for: 67Sdp3112 Ordered 7. HydroCHLOROthiazide 25 MG Oral Tablet; TAKE 1 TABLET DAILY DIRECTED; Therapy: 28Jun2015 to (Evaluate:24Aug2016) Requested for: 05Sep2016; Last Rx:[id number]; Status: ACTIVE - Renewal Denied Ordered 8. Losartan Potassium 100 MG Oral Tablet; TAKE 1 TABLET EVERY DAY (NEED APPOINTMENT FOR REFILLS); Therapy: 32Juy4027 to (Last Rx:31Aug2016) Requested for: 31Aug2016 Ordered 9. Urea 40 % External Cream; APPLY AND RUB IN A THIN FILM TO AFFECTED AREA(S) DAILY; Therapy: 01Gav2587 to (Evaluate:25Aug2015) Requested for: 43Mcd7576; Last Rx:62Pzv1950 Ordered Allergies 1. No Known Drug Allergies Vitals Recorded: 07Sep2016 11:06AM Heart Rate 63 Respiration 16 Systolic 120 Diastolic 80 O2 Saturation 98 Height 5 ft 11 in Weight 183 lb BMI Calculated 25.52 BSA Calculated 2.03 Physical Exam Constitutional General appearance: No acute [...] of extremities for edema and/or varicosities: Normal. Abdomen Abdomen: Non-tender, no masses. Liver and spleen: No hepatomegaly or splenomegaly. Lymphatic Palpation of lymph nodes in neck: No lymphadenopathy. Musculoskeletal Gait and station: Normal. Neurologic Cranial nerves: Cranial nerves 2-12 intact. Psychiatric Mood and affect: Normal. Assessment 1. Benign essential hypertension (401.1) (I10) 2. Hyperlipidemia (272.4) (E78.5) 3. Erectile dysfunction (607.84) (N52.9) 4. Multiple sclerosis (340) (G35) Plan Anxiety, Benign essential hypertension, Health Maintenance, Hyperlipidemia, Multiple sclerosis, Screening for prostate cancer 1. CBC W Differential; Status:Hold For - Manual Activation; Requested for:07Sep2016; Perform:[facility]; Due:07Oct2016; Last Updated By:Gela Solo; 09/07/2016 11:25:15 AM;Ordered; For:Anxiety, Benign essential hypertension, Health Maintenance, Hyperlipidemia, Multiple sclerosis, Screening for prostate cancer; Ordered By:Mick Flowers; 2. Compr Metabolic Prof ( CMP ); Status:Hold For - Manual Activation; Requested for:07Sep2016; Perform:[facility]; Due:07Oct2016; Last Updated By:Gela Solo; 09/07/2016 11:25:15 AM;Ordered; For:Anxiety, Benign essential hypertension, Health Maintenance, Hyperlipidemia, Multiple sclerosis, Screening for prostate cancer; Ordered By:Mick Flowers; 3. Lipid Profile; Status:Hold For - Manual Activation; Requested for:07Sep2016; Perform:[facility]; Due:07Oct2016; Last Updated By:Gela Solo; 09/07/2016 11:25:15 AM;Ordered; For:Anxiety, Benign essential hypertension, Health Maintenance, Hyperlipidemia, Multiple sclerosis, Screening for prostate cancer; Ordered By:Mick Flowers; 4. Prostate Specif Ag ( PSA ) Scrn; Status:Hold For - Manual Activation; Requested for:07Sep2016; Perform:[facility]; Due:05Tqc3153; Last Updated By:Gela Solo; 09/07/2016 11:25:15 AM;Ordered; For:Anxiety, Benign essential hypertension, Health Maintenance, Hyperlipidemia, Multiple sclerosis, Screening for prostate cancer; Ordered By:Mick Flowers; 5. TSH W Reflex Free T4; Status:Hold For - Manual Activation; Requested for:07Sep2016; Perform:[facility]; Due:07Oct2016; Last Updated By:Gela Solo; 09/07/2016 11:25:15 AM;Ordered; For:Anxiety, Benign essential hypertension, Health Maintenance, Hyperlipidemia, Multiple sclerosis, Screening for prostate cancer; Ordered By:Mick Flowers; 6. Uric Acid; Status:Hold For - Manual Activation; Requested for:07Sep2016; Perform:[facility]; Due:07Oct2016; Last Updated By:Gela Solo; 09/07/2016 11:25:15 AM;Ordered; For:Anxiety, Benign essential hypertension, Health Maintenance, Hyperlipidemia, Multiple sclerosis, Screening for prostate cancer; Ordered By:Mick Flowers; 7. Urinalysis ( UA ) Culture If Ind; Status:Hold For - Manual Activation; Requested for:07Sep2016; Perform:[facility]; Due:07Oct2016; Last Updated By:Gela Solo; 09/07/2016 11:25:15 AM;Ordered; For:Anxiety, Benign essential hypertension, Health Maintenance, Hyperlipidemia, Multiple sclerosis, Screening for prostate cancer; Ordered By:Mick Flowers; Source: : Clean Catch 8. Vitamin D 25 - Hydroxy; Status:Hold For - Manual Activation; Requested for:07Sep2016; [facility]; Due:07Oct2016; Last Updated By:Gela Solo; 09/07/2016 11:25:15 AM;Ordered; For:Anxiety, Benign essential hypertension, Health Maintenance, Hyperlipidemia, Multiple sclerosis, Screening for prostate cancer; Ordered By:Mick Flowers; Benign essential hypertension 9. HydroCHLOROthiazide 25 MG Oral Tablet; TAKE 1 TABLET DAILY DIRECTED Rx By: Mick Flowers; Dispense: 90 Days ; #:90 Tablet; Refill: 3; For: Benign essential hypertension; KYLE = N; Verified Transmission to [facility] [address]; Last Updated By: Justus Constantino; 09/07/2016 11:09:31 AM Schedule COLONOSCOPY Outpatient Follow-up Status: Need Information - Financial Authorization Requested for: 07Sep2016 Ordered; For: Colon cancer; Ordered By: Mick Flowers Performed: Due: 21Sep2016; Last Updated By: Gela Solo; 09/07/2016 4:12:09 PM An[facility] cologuard Signatures Electronically signed by : Mick Flowers M.D.; Sep 08 2016 4:47PM RETAIL SALES REPRESENTATIVE (Author) documented in this encounter Plan of Treatment Upcoming Encounters Date Type Department Care Team (Late st Contact Info) Description 09/09/2024 10:00 AM CDT Office Visit [facility] Family & Internal Medicine - [address] [phone] Mick Flowers MD [address] [place] [address] documented as of this encounter Visit Diagnoses Not on filedocumented in this encounter Care Teams Recreation Coordinator Relationship Specialty Start Date End Date Mick Flowers MD [address] [place] [address] PCP - General 10/15/14 documented as of this encounter
--- OUTSIDE RECORDS SUMMARY | 2024-06-29 00:13 | XMS_ITS | Encounter Summary ---
Author Organization [facility] Address [address] [place] [address]. [place], [place] [address] [place] [address] Care Team Providers Care Asparagus Cutter Name Role Phone Mick Flowers MD Primary Care Provider [phone] Encounter Details Date Type Department Care Team (Latest Contact Info) Description 10/05/2015 Abstract [facility] Group Social History Tobacco [...] Description 09/09/2024 10:00 AM CDT Office Visit [facility] Family & Internal Medicine [address] [phone] Mick Flowers MD [address] [place] [address] documented as of this encounter Visit Diagnoses Not on filedocumented in this encounter Care Teams Asparagus Cutter Relationship Specialty Start Date End Date Mick Flowers MD [address] [place] [address] PCP - General 10/15/14 documented as of this encounter
--- OUTSIDE RECORDS SUMMARY | 2024-06-29 00:13 | XMS_ITS | Encounter Summary ---
Author Organization [facility] Address [address] [place] [address]. [place], [place] [address] [place] [address] Care Team Providers Care Terminal Gauger Supervisor Name Role Phone Mick Flowers MD Primary Care Provider [phone] Encounter Details Date Type Department Care Team (Latest Contact Info) Description 11/06/2016 Abstract [facility] Medical Group Social History Tobacco Use [...] Medical Group Family & Internal Medicine [address] [phone] Mick Flowers MD [address] [place] [address] documented as of this encounter Visit Diagnoses Not on filedocumented in this encounter Care Teams Terminal Gauger Supervisor Relationship Specialty Start Date End Date Mick Flowers MD [address] [place] [address] PCP - General 10/15/14 documented as of this encounter
--- OUTSIDE RECORDS SUMMARY | 2024-06-29 00:13 | XMS_ITS | Encounter Summary ---
Author Organization [facility] Address [address] [place] [address]. [place], [place] [address] [place] [address] Care Team Providers Care Crane Helper Name Role Phone Mick Flowers MD Primary Care Provider [phone] Encounter Details Date Type Department Care Team (Latest Contact Info) Description 08/12/2015 Abstract [facility] Medical Group Social History Tobacco Use Types Packs/Day Years Used Date Smoking Tobacco: Never Sex and Gender Information Value Date Recorded Sex Assigned at Male 10/07/2018 11:33 AM CDT Legal Sex Male 9:27 PM CDT Gender Identity Male 10/07/2018 11:33 AM CDT Sexual Orientation Straight 10/07/2018 11 :33 AM CDT documented as of this encounter Progress Notes * Mick Flowers MD - 08/12/2015 3:01 PM CST Verified Results QU-LIPID PANEL WITH REFLEX TO DIRECT LDL [id number] 08:00AM Mick Flowers Test Name Result Flag Reference CHOLESTEROL, TOTAL 194 mg/dL 125-200 HDL CHOLESTEROL 67 mg/dL > OR = 40 TRIGLYCERIDES 147 mg/dL <150 LDL-CHOLESTEROL 98 <130 UNITS: mg/dL (calc) Desirable range <100 mg/dL for patients with CHD or diabetes and <70 mg/dL for diabetic patients with known heart disease. CHOL/HDLC RATIO 2.9 (calc) < OR = 5.0 NON HDL CHOLESTEROL 127 UNITS: mg/dL (calc) Target for non-HDL cholesterol is 30 mg/dL higher than LDL cholesterol target. Test Performed at: [facility] [address] [address] JELLY MAYERS DO,MPH QU-COMPREHENSIVE METABOLIC PANEL 81482 [id number] 08:00AM Mick Flowers Test Name Result Flag Reference GLUCOSE 109 mg/dL H 65-99 Fasting reference interval UREA NITROGEN (BUN) 17 mg/dL 7-25 CREATININE 0.86 mg/dL 0.70-1.33 For patients >49 years of age, the reference limit for Creatinine is approximately 13% higher for people identified as -Citizen Of [place]. eGFR NON-AFR. ANGUILLAN 101 > OR = 60 UNITS: mL/min/1.73m2 eGFR 117 > OR = 60 UNITS: mL/min/1.73m2 BUN/CREATININE RATIO 6-22 NOT APPLICABLE (calc) SODIUM 140 mmol/L 135-146 POTASSIUM 4.0 mmol/L 3.5-5.3 CHLORIDE 102 mmol/L 98-110 CARBON DIOXIDE 26 mmol/L 19-30 CALCIUM 10.1 mg/dL 8.6-10.3 PROTEIN, TOTAL 7.1 g/dL 6.1-8.1 ALBUMIN 4.6 g/dL 3.6-5.1 GLOBULIN 2.5 1.9-3.7 UNITS: g/dL (calc) ALBUMIN/GLOBULIN RATIO 1.8 (calc) 1.0-2.5 BILIRUBIN, TOTAL 0.6 mg/dL 0.2-1.2 ALKALINE PHOSPHATASE 122 U/L H 40-115 AST 25 U/L 10-35 ALT 37 U/L 9-46 Test Performed at: [facility] [address] [place] [address] JELLY MAYERS DO,MPH QU-URINALYSIS, COMPLETE W/REFLEX TO CULTURE 3020 [id number] 08:00AM Mick Flowers Test Name Result Flag Reference COLOR YELLOW YELLOW APPEARANCE CLEAR CLEAR SPECIFIC GRAVITY 1.020 1.001-1.035 PH 6.5 5.0-8.0 GLUCOSE NEGATIVE NEGATIVE BILIRUBIN NEGATIVE NEGATIVE KETONES NEGATIVE NEGATIVE OCCULT BLOOD NEGATIVE NEGATIVE PROTEIN NEGATIVE NEGATIVE NITRITE POSITIVE A NEGATIVE LEUKOCYTE ESTERASE 1+ A NEGATIVE WBC 0-5 /HPF < OR = 5 RBC 0-2 /HPF < OR = 2 SQUAMOUS EPITHELIAL CELLS 0-5 /HPF < OR = 5 BACTERIA FEW /HPF A NONE SEEN HYALINE CAST NONE SEEN /LPF NONE SEEN Test Performed at: [facility] [address] [place] [address] JELLY MAYERS DO,MPH REFLEXIVE URINE CULTURE CULTURE INDICATED - RESULTS TO FOLLOW Test Performed at: [facility] [address] JELLY MAYERS DO,MPH QU-CBC ( INCLUDES DIFF/PLT ) [id number] 10Aug2015 08:00AM Mick Flowers Test Name Result Flag Reference WHITE BLOOD CELL COUNT 4.8 3.8-10.8 UNITS: Thousand/uL RED BLOOD CELL COUNT 5.24 Million/uL 4.20-5.80 HEMOGLOBIN 15.7 g/dL 13.2-17.1 HEMATOCRIT 48.3 % 38.5-50.0 MCV 92.1 fL 80.0-100.0 MCH 29.9 pg 27.0-33.0 MCHC 32.5 g/dL 32.0-36.0 RDW 13.4 % 11.0-15.0 PLATELET COUNT 199 140-400 UNITS: Thousand/uL MPV 9.3 fL 7.5-11.5 ABSOLUTE NEUTROPHILS 2635 cells/uL 4433-5038 ABSOLUTE LYMPHOCYTES 1296 cells/uL 850-3900 ABSOLUTE MONOCYTES 355 cells/uL 200-950 ABSOLUTE EOSINOPHILS 490 cells/uL 15-500 ABSOLUTE BASOPHILS 24 cells/uL 0-200 NEUTROPHILS 54.9 % LYMPHOCYTES 27.0 % MONOCYTES 7.4 % EOSINOPHILS 10.2 % BASOPHILS 0.5 % Test Performed at: [facility] [address] JELLY MAYERS DO,MPH QU-TSH W/REFLEX TO FT4 [id number] 10Aug2015 08:00AM Mick Flowers Test Name Result Flag Reference TSH W/REFLEX TO FT4 3.32 mIU/L 0.40-4.50 Test Performed at: [facility] [address] JELLY MAYERS DO,MPH QU-PSA ( FREE AND TOTAL ) [id number] 10Aug2015 08:00AM Mick Flowers Test Name Result Flag Reference TOTAL PSA 1.1 ng/mL < OR = 4.0 FREE PSA 0.2 ng/mL % FREE PSA 18 % (calc) L >25 PSA(ng/mL) Free PSA(%) Estimated(x) Probability of Cancer(as%) 0-2.5 (*) Approx. 1 2.6-4.0(1) 0-27(2) 24(3) 4.1-10(4) 0-10 56 11-15 28 16-20 20 21-25 16 >or =26 8 >10(+) N/A >50 References:(1)Stella et al.:Urology 60: 469-474 (2001) (2)Stella et al.:J.Urol 168: 922-925 (2001) Free PSA(%) Sensitivity(%) Specificity(%) < or = 25 85 19 < or = 30 93 9 (3)Catalona et al.:MAKENZIE 277: 7453-6348 (1996) (4)Catalona et al.:MAKENZIE 279: 6994-1849 (1997) (x)These estimates vary with age, ethnicity, family history and YOUSIF results. (*)The diagnostic usefulness of % Free PSA has not been established in patients with total PSA below 2.6 ng/mL (+)In men with PSA above 10 ng/mL, prostate cancer risk is determined by total PSA alone. PSA was performed using the Penny Megan Immunoassay method. Values obtained from different assay methods cannot be used interchangeably. PSA levels, regardless of value, should not be interpreted as absolute evidence of the presence or absence of disease. Test Performed at: [place] [address] JELLY MAYERS DO,MPH QU-CULTURE, URINE, ROUTINE 395 [id number] 08:00AM Mick Flowers Test Name Result Flag Reference CULTURE, URINE, ROUTINE SEE NOTE CULTURE, URINE, ROUTINE MICRO NUMBER: [id number] TEST STATUS: FINAL SPECIMEN SOURCE: URINE SPECIMEN QUALITY: ADEQUATE RESULT: Multiple organisms present, each less than 10,000 CFU/mL. These organisms, commonly found on external and internal genitalia, are considered to be colonizers. No further testing performed. REPORT COMMENT: FASTING:YES Test Performed at: [facility] [address] [place] [address] JELLY MAYERS DO,MPH Signatures Electronically signed by : Debby Solis MA; Aug 12 2015 3:45PM STAFF FIELD ENGINEER (Author) documented in this encounter Plan of Treatment Upcoming Encounters Date Type Department Care Team (Late st Contact Info) Description 09/09/2024 10:00 AM CDT Office Visit [facility] Group Family & Internal Medicine - [address] [address] Mick Flowers MD [address] [place] [address] documented as of this encounter Visit Diagnoses Not on filedocumented in this encounter Care Teams Crane Helper Relationship Specialty Start Date End Date Mick Flowers MD [address] [place] [address] PCP - General 10/15/14 documented as of this encounter
--- OUTSIDE RECORDS SUMMARY | 2024-06-29 00:13 | XMS_ITS | Encounter Summary ---
Author Organization [facility] Address [address] [place] [address]. [place], [place] [address] [place] [address] Care Team Providers Care Advertising Account Executive Name Role Phone Mick Flowers MD Primary Care Provider [phone] Encounter Details Date Type Department Care Team (Latest Contact Info) Description 11/17/2015 Abstract [facility] Medical Group Social History Tobacco Use [...] HOSPITAL Medical Group Family & Internal Medicine [address] [address] Mick Flowers MD [address] [place] [address] documented as of this encounter Visit Diagnoses Not on filedocumented in this encounter Care Teams Advertising Account Executive Relationship Specialty Start Date End Date Mick Flowers MD [address] [place] [address] PCP - General 10/15/14 documented as of this encounter
--- OUTSIDE RECORDS SUMMARY | 2024-06-29 00:13 | XMS_ITS | Encounter Summary ---
Author Organization [facility] Address [address] [place] [address]. [place], [place] [address] [place] [address] Care Team Providers Care Shade Bander Name Role Phone Mick Flowers MD Primary Care Provider Encounter Details Date Type Department Care Team (Latest Contact Info) Description 09/27/2016 Abstract [facility] Medical Group [...] CENTER Medical Group Family & Internal Medicine [address] [address] Mick Flowers MD [address] [place] [address] documented as of this encounter Visit Diagnoses Not on filedocumented in this encounter Care Teams Shade Bander Relationship Specialty Start Date End Date Mick Flowers MD [address] [place] [address] PCP - General 10/15/14 documented as of this encounter
--- OUTSIDE RECORDS SUMMARY | 2024-06-29 00:13 | XMS_ITS | Encounter Summary ---
Author Organization [facility] Address [address] [place] [address]. [place], [place] [address] [place] [address] Care Team Providers Care Vessel Scrapper Name Role Phone Mick Flowers MD Primary Care Provider [phone] Encounter Details Date Type Department Care Team (Latest Contact Info) Description 09/17/2016 Abstract [facility] Medical Group Social History Tobacco Use Types Packs/Day Years Used Date Smoking Tobacco: Never Sex and Gender Information Value Date Recorded Sex Assigned at Male 10/07/2018 11:33 AM CDT Legal Sex Male 9:27 PM CDT Gender Identity Male 10/07/2018 11:33 AM CDT Sexual Orientation Straight 10/07/2018 11 :33 AM CDT documented as of this encounter Progress Notes * Mick Flowers MD - 09/17/2016 9:25 PM CDT Message Labs are good. Pt updated by mail-[facility] Verified Results QU-LIPID PANEL [id number] 14Sep2016 07:48AM Mick Flowers Test Name Result Flag Reference CHOLESTEROL, TOTAL 179 mg/dL 125-200 HDL CHOLESTEROL 63 mg/dL > OR = 40 TRIGLYCERIDES 88 mg/dL <150 LDL-CHOLESTEROL 98 <130 UNITS: mg/dL (calc) Desirable range <100 mg/dL for patients with CHD or diabetes and <70 mg/dL for diabetic patients with known heart disease. CHOL/HDLC RATIO 2.8 (calc) < OR = 5.0 NON HDL CHOLESTEROL 116 UNITS: mg/dL (calc) Target for non-HDL cholesterol is 30 mg/dL higher than LDL cholesterol target. Test Performed at: [facility] [facility] [address] [address] [facility] [address] JELLY MAYERS DO,MPH QU-URIC ACID 905 14Sep2016 07:48AM Mick Flowers Test Name Result Flag Reference URIC ACID 5.7 mg/dL 4.0-8.0 Therapeutic target for gout patients: <6.0 mg/dL Test Performed at: [facility] [address] [place] [address] JELLY MAYERS DO,MPH QU-COMPREHENSIVE METABOLIC PANEL 12301 14Sep2016 07:48AM Mick Flowers Test Name Result Flag Reference GLUCOSE 99 mg/dL 65-99 Fasting reference interval UREA NITROGEN (BUN) 14 mg/dL 7-25 CREATININE 0.88 mg/dL 0.70-1.33 For patients >49 years of age, the reference limit for Creatinine is approximately 13% higher for people identified as -Ivorian. eGFR NON-AFR. YEMENI 99 > OR = 60 UNITS: mL/min/1.73m2 eGFR 115 > OR = 60 UNITS: mL/min/1.73m2 BUN/CREATININE RATIO 6-22 NOT APPLICABLE (calc) SODIUM 138 mmol/L 135-146 POTASSIUM 4.3 mmol/L 3.5-5.3 CHLORIDE 103 mmol/L 98-110 CARBON DIOXIDE 27 mmol/L 20-31 CALCIUM 9.8 mg/dL 8.6-10.3 PROTEIN, TOTAL 6.6 g/dL 6.1-8.1 ALBUMIN 4.5 g/dL 3.6-5.1 GLOBULIN 2.1 1.9-3.7 UNITS: g/dL (calc) ALBUMIN/GLOBULIN RATIO 2.1 (calc) 1.0-2.5 BILIRUBIN, TOTAL 0.6 mg/dL 0.2-1.2 ALKALINE PHOSPHATASE 99 U/L 40-115 AST 24 U/L 10-35 ALT 36 U/L 9-46 Test Performed at: [facility] [address] [place] [address] JELLY MAYERS DO,MPH QU-URINALYSIS, COMPLETE W/REFLEX TO CULTURE 3020 14Sep2016 07:48AM Mick Flowers Test Name Result Flag Reference COLOR YELLOW YELLOW APPEARANCE CLEAR CLEAR SPECIFIC GRAVITY 1.023 1.001-1.035 PH 6.5 5.0-8.0 GLUCOSE NEGATIVE NEGATIVE BILIRUBIN NEGATIVE NEGATIVE KETONES NEGATIVE NEGATIVE OCCULT BLOOD NEGATIVE NEGATIVE PROTEIN NEGATIVE NEGATIVE NITRITE NEGATIVE NEGATIVE LEUKOCYTE ESTERASE 1+ A NEGATIVE WBC 10-20 /HPF A < OR = 5 RBC NONE SEEN /HPF < OR = 2 SQUAMOUS EPITHELIAL CELLS 0-5 /HPF < OR = 5 BACTERIA MODERATE /HPF A NONE SEEN HYALINE CAST NONE SEEN /LPF NONE SEEN Test Performed at: [facility] [address] JELLY MAYERS DO,MPH REFLEXIVE URINE CULTURE CULTURE INDICATED - RESULTS TO FOLLOW Test Performed at: [facility] [address] [address] JELLY MAYERS DO,MPH CULTURE, URINE, ROUTINE SEE NOTE CULTURE, URINE, ROUTINE MICRO NUMBER: [id number] TEST STATUS: FINAL SPECIMEN SOURCE: URINE SPECIMEN QUALITY: ADEQUATE RESULT: Three or more organisms present, each greater than 10,000 cu/mL. May represent normal padmini contamination from external genitalia. No further testing is required. REPORT COMMENT: FASTING:YES Test Performed at: [facility] [address] [address] JELLY MAYERS DO,MPH QU-CBC ( INCLUDES DIFF/PLT ) [id number] 14Sep2016 07:48AM Mick Flowers Test Name Result Flag Reference WHITE BLOOD CELL COUNT 4.1 3.8-10.8 UNITS: Thousand/uL RED BLOOD CELL COUNT 4.91 Million/uL 4.20-5.80 HEMOGLOBIN 15.0 g/dL 13.2-17.1 HEMATOCRIT 44.5 % 38.5-50.0 MCV 90.5 fL 80.0-100.0 MCH 30.6 pg 27.0-33.0 MCHC 33.8 g/dL 32.0-36.0 RDW 13.5 % 11.0-15.0 PLATELET COUNT 205 140-400 UNITS: Thousand/uL MPV 9.4 fL 7.5-12.5 ABSOLUTE NEUTROPHILS 2419 cells/uL 7202-9696 ABSOLUTE LYMPHOCYTES 1160 cells/uL 850-3900 ABSOLUTE MONOCYTES 267 cells/uL 200-950 ABSOLUTE EOSINOPHILS 238 cells/uL 15-500 ABSOLUTE BASOPHILS 16 cells/uL 0-200 NEUTROPHILS 59.0 % LYMPHOCYTES 28.3 % MONOCYTES 6.5 % EOSINOPHILS 5.8 % BASOPHILS 0.4 % Test Performed at: [facility] [address] JELLY MAYERS DO,MPH QU-PSA, TOTAL 5363 14Sep2016 07:48AM Mick Flowers Test Name Result Flag Reference PSA, TOTAL 0.8 ng/mL < OR = 4.0 This test was performed using the Siemens chemiluminescent method. Values obtained from different assay methods cannot be used interchangeably. PSA levels, regardless of value, should not be interpreted as absolute evidence of the presence or absence of disease. Test Performed at: [facility] [address] JELLY MAYERS DO,MPH QU-TSH W/REFLEX TO FT4 [id number] 14Sep2016 07:48AM Mick Flowers Test Name Result Flag Reference TSH W/REFLEX TO FT4 3.71 mIU/L 0.40-4.50 Test Performed at: [facility] [address] JELLY MAYERS DO,MPH QU-VITAMIN D, 25-HYDROXY, LC/MS/MS 10030 14Sep2016 07:48AM Mick Flowers Test Name Result Flag Reference VITAMIN D,25-OH, TOTAL, IA 42 ng/mL 30-100 Vitamin D Status 25-OH Vitamin D: Deficiency: <20 ng/mL Insufficiency: 20 - 29 ng/mL Optimal: > or = 30 ng/mL For 25-OH Vitamin D testing on patients on D2-supplementation and patients for whom quantitation of D2 and D3 fractions is required, the QuestAssureD(TM) 25-OH VIT D, (D2,D3), LC/MS/MS is recommended: order code 69604 (patients >2yrs). For more information on this test, go to: http://education.MuleSoft.Treato/faq/JIK739 (This link is being provided for informational/educational purposes only.) Test Performed at: [facility] [address] [place] [address] JELLY MAYERS DO,MPH Signatures Electronically signed by : Shraddha Wheeler R.N.; Sep 18 2016 1:34PM SAFETY AND SECURITY OFFICER (Author) documented in this encounter Plan of Treatment Upcoming Encounters Date Type Department Care Team (Late st Contact Info) Description 09/09/2024 10:00 AM CDT Office Visit [facility] Medical Group Family & Internal Medicine - [address] [phone] Mick Flowers MD [address] [place] [address] documented as of this encounter Visit Diagnoses Not on filedocumented in this encounter Care Teams Vessel Scrapper Relationship Specialty Start Date End Date Mick Flowers MD [address] [place] [address] PCP - General 10/15/14 documented as of this encounter
--- OUTSIDE RECORDS SUMMARY | 2024-06-29 00:13 | XMS_ITS | Encounter Summary ---
Author Organization [facility] Address [address] [place] [address]. [place], [place] [address] [place] [address] Care Team Providers Care Tariff Inspector Name Role Phone Mick Flowers MD Primary Care Provider [phone] Encounter Details Date Type Department Care Team (Latest Contact Info) Description 09/18/2016 Abstract [facility] Medical Group Social History Tobacco Use [...] Description 09/09/2024 10:00 AM CDT Office Visit [facility] Medical Group Family & Internal Medicine [address] [phone] Mick Flowers MD [address] [place] [address] documented as of this encounter Visit Diagnoses Not on filedocumented in this encounter Care Teams Tariff Inspector Relationship Specialty Start Date End Date Mick Flowers MD [address] [place] [address] PCP - General 10/15/14 documented as of this encounter
--- OUTSIDE RECORDS SUMMARY | 2024-06-29 00:14 | XMS_ITS | Encounter Summary ---
Author Organization [facility] Address [address] [place] [address]. [place], [place] [address] [place] [address] Care Team Providers Care Integration Software Developer Name Role Phone Mick Flowers MD Primary Care Provider [phone] Encounter Details Date Type Department Care Team (Late st Contact Info) Description 12/23/2014 [facility] [address] [place] [phone] , Melanie Carroll MD Social History Tobacco [...] 09/09/2024 10:00 AM CDT Office Visit [facility] Medical Group Family & Internal Medicine [address] [place] [address] Mick Flowers MD [address] [place] [address] documented as of this encounter Visit Diagnoses Not on filedocumented in this encounter Care Teams Integration Software Developer Relationship Specialty Start Date End Date Mick Flowers MD [address] [place] [address] PCP - General 10/15/14 documented as of this encounter
--- OUTSIDE RECORDS SUMMARY | 2024-06-29 00:14 | XMS_ITS | Encounter Summary ---
Author Organization [facility] Address [address] [place] [address]. [place], [place] [address] [place] [address] Care Team Providers Care Volleyball Assembler Name Role Phone Mick Flowers MD Primary Care Provider [phone] Mick Flowers MD Primary Care Provider [phone] Encounter Details Date Type Department Care Team (Late st Contact Info) Description 08/07/[address] [facility] [place] [address] Mick Flowers MD [address] [place] [address] Social History Tobacco Use Types Packs/Day Years Used Date Smoking Tobacco: Never Assessed Sex and Gender Information Value Date Recorded Sex Assigned at Male 10/07/2018 11:33 AM CDT Legal Sex Male 9:27 PM CDT Gender Identity Male 10/07/2018 11:33 AM CDT Sexual Orientation Straight 10/07/2018 11 :33 AM CDT documented as of this encounter Plan of Treatment Upcoming Encounters Date Type Department Care Team (Late st Contact Info) Description 09/09/2024 10:00 AM CDT Office Visit [facility] Medical Group Family & Internal Medicine - [address] [phone] [place] [address] [place] [address] documented as of this encounter Visit Diagnoses Diagnosis Benign essential hypertension Essential hypertension, benign documented in this encounter Care Teams Volleyball Assembler Relationship Specialty Start Date End Date Mick Flowers MD [address] [place] [address] PCP - General 10/15/14 Mick Flowers MD [address] [place] [address] PCP - General 08/07/13 10/14/14 documented as of this encounter
--- OUTSIDE RECORDS SUMMARY | 2024-06-29 00:14 | XMS_ITS | Encounter Summary ---
Author Organization [facility] Address [address] [place] [address]. [place], [place] [address] [place] [address] Care Team Providers Care Car Servicer Name Role Phone Mick Flowers MD Primary Care Provider [phone] Mick Flowers MD Primary Care Provider [phone] Encounter Details Date Type Department Care Team (Late st Contact Info) Description 05/20/2014 Abstract [facility] Medical Group Family & Internal Medicine [address] [place] [address] Mick Flowers MD [address] [place] [address] Social History Tobacco Use Types Packs/Day Years [...] Sign Reading Time Taken Comments Blood Pressure 151/100 05/20/2014 8:53 AM GREEN END DEPARTMENT SUPERVISOR Pulse 75 05/20/2014 8:53 AM GREEN END DEPARTMENT SUPERVISOR Temperature - - Respiratory Rate - - Oxygen Saturation - - Inhaled Oxygen Concentration - - Weight 78 kg (172 lb) 05/20/2014 8:53 AM GREEN END DEPARTMENT SUPERVISOR Height 180.3 cm (5' 11 ) 05/20/2014 8:53 AM GREEN END DEPARTMENT SUPERVISOR Body Mass Index 23.99 05/20/2014 8:53 AM GREEN END DEPARTMENT SUPERVISOR documented in this encounter Progress Notes * Mick Flowers MD - 05/20/2014 9:00 AM CST Reason For Visit Reason For Visit: Acute Visit Chief Complaint Chief Complaint Free Text: C/o bumps on lower back x 2-3 days, pt states his lower back feels numb.Pt also has a rash on his right lower abd. History of Present Illness Herpes Zoster (Brief): The patient is being seen for an initial evaluation of herpes zoster. Symptoms: rash and lesion crusting, but no dermatomal pain, no skin tingling, no localized itching, no vesicular lesion(s) and no lesion drainage. The patient is currently experiencing symptoms. Associated symptoms: no fever, no chills, no myalgias, no headache, no eye redness, no photophobia, no decreased visual acuity, no hearing loss, no tinnitus and no vertigo. The patient is not currently being treated for this problem. (He had shingles when he was a teenager. He feels that the area that the rashis in is numb, he does not have any pain) Review of Systems Focused-Male: Constitutional: Normal. ENT: normal. Cardiovascular: Normal. Respiratory: Normal. Gastrointestinal: Normal. Genitourinary: Normal. Integumentary: skin lesion and skin rash, but no itching. Musculoskeletal: Normal. Psychiatric: Normal. Active Problems 1. Anxiety (300.00) (F41.9) 2. Benign essential hypertension (401.1) (I10) 3. Hyperlipidemia (272.4) (E78.5) 4. Multiple sclerosis (340) (G35) 5. Screening for prostate cancer (V76.44) (Z12.5) 6. Self-catheterizes urinary bladder (V49.89) (Z78.9) Surgical History 1. History of Bladder Surgery Family History Mother 1. Family history of Cancer Father 2. Family history of Benign Essential Hypertension 3. Family history of Cancer Family History 4. Family history of Cancer Social History ?? Never a smoker Current Meds 1. ALPRAZolam 0.5 MG Oral Tablet; Take 1 tablet 3 times daily as needed; Therapy: 65Adl7381 to (Evaluate:63Buf8577) Requested for: 66Tke6354; Last Rx:[id number] Ordered 2. Atorvastatin Calcium 20 MG Oral Tablet (Lipitor); TAKE 1 TABLET BY MOUTH EVERY DAY; Therapy: 26Jun2012 to (Last Rx:24Apr2014) Requested for: 24Apr2014 Ordered 3. Edex 20 MCG Intracavernosal Kit; INJECT 1 ML CAVERNOSAL 10-30 MINUTES PRIOR TO INTERCOURSE; Therapy: 03Oct2012 to (Evaluate:24May2014) Requested for: 24Apr2014; Last Rx:[id number] Ordered 4. Felodipine ER 5 MG Oral Tablet Extended Release 24 Hour; TAKE 1 TABLET ONCE DAILY; Therapy: 03Oct2012 to (Evaluate:41Bul4815) Requested for: 26Aug2013; Last Rx:26Aug2013 Ordered 5. Insulin Syringe 28G X 1/2 0.5 ML Miscellaneous; USE DIRECTED; Therapy: 03Oct2012 to (Last Rx:[id number]) Ordered 6. Losartan Potassium 50 MG Oral Tablet; Take 1 tablet daily as directed; Therapy: 03Oct2012 to (Last Rx:[id number]) Requested for: 16Iho4526 Ordered Allergies 1. No Known Drug Allergies Vitals Vital Signs [Data Includes: Current Encounter] Recorded by : Debby Solis at 20May2014 08:53AM Heart Rate 75 Respiration 16 Systolic 151 Diastolic 100 Height 5 ft 11 in Weight 172 lb BMI Calculated 23.99 BSA Calculated 1.98 Physical Exam Constitutional General appearance: No acute distress, well appearing and well nourished. Skin Skin and subcutaneous tissue: Abnormal. Raised erythematous rash with central scabbing, no pustulesare noted, no drainage is noted. Neurologic Sensation: No sensory loss. Psychiatric Mood and affect: Normal. Assessment 1. Herpes zoster (053.9) (B02.9) Plan 1. You may continue or resume your normal level of activity. Status: Complete Done: 20May2014 09:18AM Ordered; For: Herpes zoster; Ordered By: Mick Flowers 2. Call if: The pain seems worse. Status: Complete Done: 20May2014 09:18AM Ordered; For: Herpes zoster; Ordered By: Mick Flowers Signatures Electronically signed by : Mick Flowers M.D.; May 20 2014 9:18AM GREEN END DEPARTMENT SUPERVISOR (Author) documented in this encounter Plan of Treatment Upcoming Encounters Date Type Department Care Team (Late st Contact Info) Description 09/09/2024 10:00 AM CDT Office Visit [facility] Medical Group Family & Internal Medicine - [address] [phone] Mick Flowers MD [address] [place] [address] documented as of this encounter Visit Diagnoses Not on filedocumented in this encounter Care Teams Car Servicer Relationship Specialty Start Date End Date Mick Flowers MD [address] [place] [address] PCP - General 10/15/14 Mick Flowers MD [address] [place] [address] PCP - General 08/07/13 10/14/14 documented as of this encounter
--- OUTSIDE RECORDS SUMMARY | 2024-06-29 00:14 | XMS_ITS | Encounter Summary ---
Author Organization [facility] Address [address] [place] [address]. [place], [place] [address] [place] [address] Care Team Providers Care Educational Psychology Professor Name Role Phone Mick Flowers MD Primary Care Provider [phone] Encounter Details Date Type Department Care Team (Latest Contact Info) Description 08/10/2015 Abstract [facility] Mick Flowers MD [facility] [place] [address] Social History Tobacco Use Types Packs/Day Years [...] Description 09/09/2024 10:00 AM CDT Office Visit [facility] Family & Internal Medicine [facility] [address] [place] [address] Mick Flowers MD [address] [place] [address] documented as of this encounter Procedures Procedure Name Priority Date/Time Associated Diagnosis Comments LIPID PANEL WITH DIRECT LDL Routine 08/10/2015 8:00 AM FINISHING PAN OPERATOR URINALYSIS COMPLETE W/RFX TO CULTURE Routine 08/10/2015 8:00 AM FINISHING PAN OPERATOR TSH W/REFLEX Routine 08/10/2015 8:00 AM FINISHING PAN OPERATOR URINE BACTERIA CULTURE Routine 6 8:00 AM FINISHING PAN OPERATOR COMPREHENSIVE METABOLIC PANEL Routine 08/10/2015 8:00 AM FINISHING PAN OPERATOR PSA, TOTAL AND FREE Routine 08/10/2015 8 :00 AM FINISHING PAN OPERATOR CBC W/DIFF AUTOMATED Routine 08/10/2015 8:00 AM FINISHING PAN OPERATOR documented in this encounter Results * CBC W/DIFF AUTOMATED (08/10/2015 8:00 AM FINISHING PAN OPERATOR) WBC 4.8 3.8 - 10.8 [facility] TO EPIC CONVERSION Comment:Result Comment: UNIT S: Thousand/uL Red Blood Cell Count 5.24 4.20 - 5.80 Million/uL [facility] TO EPIC CONVERSION HGB 15.7 13.2 - 17.1 g/dL [facility] TO EPIC CONVERSION HCT 48.3 38.5 - 50.0 % [facility] TO EPIC CONVERSION MCV 92.1 80.0 - 100.0 fL [facility] TO EPIC CONVERSION MCH (QHPE) 29.9 27.0 - 33.0 pg [facility] TO EPIC CONVERSION MCHC 32.5 32.0 - 36.0 g/dL [facility] TO EPIC CONVERSION RDW (QHPE) 13.4 11.0 - 15.0 % [facility] TO EPIC CONVERSION PLT 199 140 - 400 [facility] T O EPIC CONVERSION Comment:Result Comment: UNIT S: Thousand/uL MPV 9.3 7.5 - 11.5 fL [facility] TO EPIC CONVERSION ABS. NEUTROPHILS 2635 1500 - 7800 cells/uL [facility] TO EPIC CONVERSION ABS. LYMPHOCYTES 1296 850 - 3900 cells/uL [facility] TO EPIC CONVERSION ABS. MONOCYTES 355 200 - 950 cells/uL [facility] TO EPIC CONVERSION ABS. EOSINOPHILS 490 15 - 500 cells/uL [facility] TO EPIC CONVERSION ABS. BASOPHILS 24 0 - 200 cells/uL [facility] TO EPIC CONVERSION SEG NEUTROPHILS 54.9 % [facility] ROUP TO EPIC CONVERSION LYMPHOCYTES 27.0 % [facility] TO EPIC CONVERSION MONOCYTES 7.4 % [facility] T O EPIC CONVERSION EOSINOPHILS 10.2 % [facility] TO EPIC CONVERSION BASOPHILS 0.5 % [facility] T O EPIC CONVERSION Comment: Result Comment: Test Performed at: [facility] [address] [place], [place] ??[phone] ? JELLY MAYERS DO,MPH 08/10/2015 8:00 AM FINISHING PAN OPERATOR 08/10/2015 8:00 AM FINISHING PAN OPERATOR Narrative [facility] TO EPIC CONVERSION - 08/10/2015 8:01 AM FINISHING PAN OPERATOR Result Communication: Call patient with results Mick Flowers MD LABORATORY Final Result [facility] TO EPIC CONVERSION * (ABNORMAL) COMPREHENSIVE METABOLIC PANEL (08/10/2015 8:00 AM FINISHING PAN OPERATOR) GLUCOSE 109(H) 65 - 99 mg/dL [facility] TO EPIC CONVERSION Comment: Result Comment: ? Fasting reference interval BUN 17 7 - 25 mg/dL [facility] TO EPIC CONVERSION CREATININE S/P/B 0.86 0.70 - 1.33 mg/dL [facility] TO EPIC CONVERSION Comment: Result Comment: For patients >49 years of age, the reference limit for Creatinine is approximately 13% higher for people identified as -Polish. EGFR NON-AFR. AMER. 101 > OR = 60 [facility] TO EPIC CONVERSION Comment:Result Comment: UNIT S: mL/min/1.73m2 EGFR AFR. AMER. 117 > OR = 60 [facility] TO EPIC CONVERSION Comment:Result Comment: UNIT S: mL/min/1.73m2 BUN CREATININE RATIO NOT APPLICABLE 6 - 22 (calc) [facility] TO EPIC CONVERSION SODIUM S/P/B 140 135 - 146 mmol/L [facility] TO EPIC CONVERSION POTASSIUM S/P/B 4.0 3.5 - 5.3 mmol/L [facility] TO EPIC CONVERSION CHLORIDE S/P/B 102 98 - 110 mmol/L [facility] TO EPIC CONVERSION CO2 26 19 - 30 mmol/L [facility] TO EPIC CONVERSION CALCIUM S/P/B 10.1 8.6 - 10.3 mg/dL [facility] TO EPIC CONVERSION PROTEIN 7.1 6.1 - 8.1 g/dL [facility] TO EPIC CONVERSION ALBUMIN S/P/B 4.6 3.6 - 5.1 g/dL [facility] TO EPIC CONVERSION GLOBULIN 2.5 1.9 - 3.7 [facility] TO EPIC CONVERSION Comment:Result Comment: UNIT S: g/dL (calc) ALBUMIN/GLOBULIN RATIO 1.8 1.0 - 2.5 (calc) [facility] TO EPIC CONVERSION BILIRUBIN TOTAL (FLUID) 0.6 0.2 - 1.2 mg/dL [facility] TO EPIC CONVERSION ALK PHOS 122(H) 40 - 115 U/L [facility] TO EPIC CONVERSION AST 25 10 - 35 U/L [facility] TO EPIC CONVERSION ALT 37 9 - 46 U/L [facility] TO EPIC CONVERSION Comment: Result Comment: Test Performed at: [facility] [place], [place] ??[phone] ? JELLY MAYERS DO,MPH 08/10/2015 8:00 AM FINISHING PAN OPERATOR 08/10/2015 8:00 AM FINISHING PAN OPERATOR Narrative [facility] TO EPIC CONVERSION - 08/10/2015 8:01 AM FINISHING PAN OPERATOR Result Communication: Call patient with results Mick Flowers MD LABORATORY Final Result [facility] TO EPIC CONVERSION * CULTURE URINE (08/10/2015 8:00 AM FINISHING PAN OPERATOR) CULTURE RESULT SEE NOTE [facility] OUP TO EPIC CONVERSION Comment: Result Comment: ?CULTURE, URINE, ROUTINE ?MICRO NUMBER: ?[id number] ??TEST STATUS: ? FINAL ??SPECIMEN SOURCE: ?? URINE ??SPECIMEN QUALITY: ??ADEQUATE ??RESULT: ?Multiple organisms present, each less than 10,000 ? CFU/mL. These organisms, commonly found on ? external and internal genitalia, are considered ? to be colonizers. No further testing performed. REPORT COMMENT: FASTING:YES Test Performed at: [facility] [place], [place] ??[phone] ? JELLY MAYERS DO,MPH 08/10/2015 8:00 AM FINISHING PAN OPERATOR 08/10/2015 8:00 AM FINISHING PAN OPERATOR Narrative [facility] TO EPIC CONVERSION - 08/10/2015 8:01 AM FINISHING PAN OPERATOR Result Communication: Call patient with results Mick Flowers MD MICROBIOLOGY - GENERAL ORDERAB LES Final Result Performing Organization Address City/[facility]/ZIP Co de Phone Number [facility] TO EPIC CONVERSION * LIPID PANEL WITH DIRECT LDL (08/10/2015 8:00 AM FINISHING PAN OPERATOR) CHOLESTEROL 194 125 - 200 mg/dL [facility] TO EPIC CONVERSION HDL 67 > OR = 40 mg/dL [facility] TO EPIC CONVERSION TRIGLYCERIDES 147 <150 mg/dL [facility] OUP TO EPIC CONVERSION LDL (CALCULATED) 98 <130 [facility] TO EPIC CONVERSION Comment: Result Comment: UNITS: mg/dL (calc) Desirable range <100 mg/dL for patients with CHD or diabetes and <70 mg/dL for diabetic patients with known heart disease. CHOL/HDL RATIO 2.9 < OR = 5.0 (calc) [facility] TO EPIC CONVERSION NON HDL CHOLESTEROL 127 [facility] TO EPIC CONVERSION Comment: Result Comment: UNITS: mg/dL (calc) Target for non-HDL cholesterol is 30 mg/dL higher than LDL cholesterol target. Test Performed at: [facility] [address] [place] ??[phone] ? JELLY MAYERS DO,MPH 08/10/2015 8:00 AM FINISHING PAN OPERATOR 08/10/2015 8:00 AM FINISHING PAN OPERATOR Narrative [facility] TO EPIC CONVERSION - 08/10/2015 8:01 AM FINISHING PAN OPERATOR Result Communication: Call patient with results Mick Flowers MD LABORATORY Final Result Performing Organization Address City/[facility]/ZIP Co de Phone Number [facility] TO EPIC CONVERSION * (ABNORMAL) PSA, TOTAL AND FREE (08/10/2015 8:00 AM FINISHING PAN OPERATOR) PSA TOTAL 1.1 < OR = 4.0 ng/mL [facility] TO EPIC CONVERSION PSA Free 0.2 ng/mL [facility] T O EPIC CONVERSION PSA % Free 18(L) >25 % (calc) [facility] TO EPIC CONVERSION Comment: Result Comment: ?? PSA(ng/mL) ?Free PSA(%) ? Estimated(x) Probability ? of Cancer(as%) 0-2.5 ?(*) ? Approx. 1 2.6-4.0(1) ? 0-27(2) ? 24(3) 4.1-10(4) ?0-10 ?56 ? 11-15 ? 28 ? 16-20 ? 20 ? 21-25 ? 16 ? >or =26 ? 8 >10(+) ? N/A ?>50 References:(1)Darrick:Urology 60: 469-474 (2002) ? (2)Prakash.:J.Urol 168: 922-925 (2002) ?Free PSA(%) ?? Sensitivity(%) ??Specificity(%) ?< or = 25 ?85 ?19 ?< or = 30 ?93 ? 9 ? (3)Stella et al.:MAKENZIE 277: 9087-7264 (1996) ? (4)Catalona et al.:MAKENZIE 279: 8905-1273 (1997) (x)These estimates vary with age, ethnicity, family ?? history and YOUSIF results. (*)The diagnostic usefulness of % Free PSA has not been ?? established in patients with total PSA below 2.6 ng/mL (+)In men with PSA above 10 ng/mL, prostate cancer risk is ?? determined by total PSA alone. PSA was performed using the [place] Immunoassay method. Values obtained from different assay methods cannot be used interchangeably. PSA levels, regardless of value, should not be interpreted as absolute evidence of the presence or absence of disease. Test Performed at: [facility] [place] ??[phone] ? JELLY MAYERS DO,MPH 08/10/2015 8:00 AM FINISHING PAN OPERATOR 08/10/2015 8:00 AM FINISHING PAN OPERATOR Narrative [facility] - 08/10/2015 8:01 AM FINISHING PAN OPERATOR Result Communication: Call patient with results us Mick Flowers MD LABORATORY Final Result [facility] CONVERSION * (ABNORMAL) URINALYSIS COMPLETE W/RFX TO CULTURE (08/10/2015 8:00 AM FINISHING PAN OPERATOR) REFLEX URINE CULTURE: CULTURE INDICATED - RESULTS TO FOLLOW [facility] CONVERSION Comment: Result Comment: Test Performed at: [facility] [place] ??[phone] ? JELLY MAYERS DO,MPH COLOR (U) YELLOW YELLOW [facility] T O EPIC CONVERSION APPEARANCE SEMEN CLEAR CLEAR [facility] TO EPIC CONVERSION SPECIFIC GRAVITY (U) 1.020 1.001 - 1.035 [facility] TO EPIC CONVERSION PH (U) 6.5 5.0 - 8.0 [facility] T O EPIC CONVERSION URINE GLUCOSE NEGATIVE NEGATIVE [facility] UP TO EPIC CONVERSION BILIRUBIN (U) NEGATIVE NEGATIVE [facility] UP TO EPIC CONVERSION KETONE (U) NEGATIVE NEGATIVE [facility] TO [facility]IC CONVERSION OCCULT BLOOD FECAL NEGATIVE NEGATIVE [facility] TO [facility] CONVERSION PROTEIN (U) NEGATIVE NEGATIVE [facility] TO [facility]IC CONVERSION NITRITES POSITIVE(A) NEGATIVE [facility] TO [facility] CONVERSION LEUKOCYTES (U) 1+(A) NEGATIVE [facility] OUP TO EPIC CONVERSION RBC/HPF 0-2 < OR = 2 /HPF [facility] TO [facility]IC CONVERSION SQUAMOUS EPITHELIALS 0-5 < OR = 5 /HPF [facility] TO EPIC CONVERSION HYALINE CASTS NONE SEEN NONE SEEN /LPF [facility] TO EPIC CONVERSION Comment: Result Comment: Test Performed at: [facility] [place] ??[phone] ? JELLY MAYERS DO,MPH WBC 0-5 < OR = 5 /HPF [facility] TO EPIC CONVERSION ORGANISM FEW(A) NONE SEEN /HPF [facility] TO EPIC CONVERSION 08/10/2015 8:00 AM FINISHING PAN OPERATOR 08/10/2015 8:00 AM FINISHING PAN OPERATOR Narrative [facility] TO EPIC CONVERSION - 08/10/2015 8:01 AM FINISHING PAN OPERATOR Result Communication: Call patient with results Mick Flowers MD URINE ORDERABLES Final Result [facility] TO EPIC CONVERSION * TSH W/REFLEX (SNS) (08/10/2015 8:00 AM FINISHING PAN OPERATOR) TSH 3.32 0.40 - 4.50 mIU/L [facility] TO EPIC CONVERSION Comment: Result Comment: Test Performed at: [facility] [address] [place], [place] ??[phone] ? JELLY MAYERS DO,MPH 08/10/2015 8:00 AM FINISHING PAN OPERATOR 08/10/2015 8:00 AM FINISHING PAN OPERATOR Narrative [facility] TO EPIC CONVERSION - 08/10/2015 8:01 AM FINISHING PAN OPERATOR Result Communication: Call patient with results Mick Flowers MD LABORATORY Final Result [facility] TO EPIC CONVERSION documented in this encounter Visit Diagnoses Not on filedocumented in this encounter Care Teams Educational Psychology Professor Relationship Specialty Start Date End Date Mick Flowers MD [address] [place] [address] PCP - General 10/15/14 documented as of this encounter
--- OUTSIDE RECORDS SUMMARY | 2024-06-29 00:14 | XMS_ITS | Encounter Summary ---
Author Organization [facility] Address [address] [place] [address]. [place], [place] [address] [place] [address] Care Team Providers Care Beauty Parlor Cleaner Name Role Phone Mick Flowers MD Primary Care Provider [phone] Encounter Details Date Type Department Care Team (Late st Contact Info) Description 08/05/2015 Abstract [facility] Family & Internal Medicine [address] [phone] Mick Flowers MD [address] [place] [address] Social History Tobacco Use Types Packs/Day Years [...] Sign Reading Time Taken Comments Blood Pressure 139/94 08/05/2015 11:21 AM CHROME POLISHER Pulse 59 08/05/2015 11:21 AM CHROME POLISHER Temperature - - Respiratory Rate - - Oxygen Saturation - - Inhaled Oxygen Concentration - - Weight 80.7 kg (178 lb) 08/05/2015 11:21 AM CHROME POLISHER Height 180.3 cm (5' 11 ) 08/05/2015 11:21 AM CHROME POLISHER Body Mass Index 24.83 08/05/2015 11:21 AM CHROME POLISHER documented in this encounter Progress Notes * Generic Conversion MD Denise - 08/05/2015 2:58 PM CST Message Recorded as Task Date: 08/05/2015 12:18 PM, Created By: Glory Saucedo Task Name: Medical Complaint Callback Assigned To: [facility] [place] Regarding Patient: Doc Emery, Status: Active Comment: Glroy Saucedo - 05 Aug 2015 12:18 PM TASK CREATED Medical Complaint Pt calling and stated he believes his most recent colonoscopy was on 09/19/2011 at [facility]. Mick Flowers - 05 Aug 2015 12:21 PM TASK REASSIGNED: Previously Assigned To Mick Flowers Noted, can we please put this in the chart. Message: Noted. Signatures Electronically signed by : Shraddha Wheeler R.N.; Aug 05 2015 2:59PM CHROME POLISHER (Author) * Mick Flowers MD - 08/05/2015 11:15 AM CST Reason For Visit Chronic Recheck Visit Chief Complaint General check up MS, Anxiety, HTN and Hyperlipidemia. Pt would like our office to take over his Rx for Urea Cream. History of Present Illness Multiple Sclerosis (Follow-Up): The patient is being seen for follow-up of multiple sclerosis. The patient reports doing well. Anxiety Disorder (Follow-Up): The patient is being seen for follow-up of anxiety. The patient reports doing well. He has no comorbid illnesses. He has had no significant interval events. Interval symptoms: improved anxiety. Medications: the patient is adherent to his medication regimen, but he denies medication side effects. Disease management: the patient is doing well with his goals. Hyperlipidemia (Follow-Up): The patient states his hyperlipidemia [...] is currently asymptomatic. Associated symptoms include no headache, no focal neurologic deficits and no memory loss. Home monitoring: The patient checks his blood pressure regularly. Blood pressure control has been good. Medications: the patient is adherent with his medication regimen. He denies medication side effects. Disease Management: the patient is doing well with his blood pressure goals. Review of Systems Constitutional, Eyes, ENT, Cardiovascular, Respiratory, Gastrointestinal, Genitourinary, Musculoskeletal, Integumentary, Neurological, Psychiatric, Endocrine and Hematologic review of systems normal except as noted. Active Problems 1. Anxiety (300.00) (F41.9) 2. Benign essential hypertension (401.1) (I10) 3. Hyperlipidemia (272.4) (E78.5) 4. Multiple sclerosis (340) (G35) 5. Screening for prostate cancer (V76.44) (Z12.5) 6. Self-catheterizes urinary bladder (V49.89) (Z78.9) Past Medical History 1. History of herpes zoster (V12.09) (Z86.19) Surgical History 1. History of Bladder Surgery Family History 1. Family history of Cancer 2. Family history of Benign Essential Hypertension 3. Family history of Cancer 4. Family history of Cancer Social History ?? Never a smoker Current Meds 1. ALPRAZolam 0.5 MG Oral Tablet; TAKE 1 TABLET 3 TIMES A DAY NEEDED; Therapy: 03Oct2012 to (Evaluate:24Jul2015) Requested for: 14Jul2015; Last Rx:14Jul2015 Ordered 2. Ampyra 10 MG Oral Tablet Extended Release 12 Hour; Therapy: 14Lle1355 to Recorded 3. Atorvastatin Calcium 20 MG Oral Tablet; TAKE 1 TABLET BY MOUTH EVERY DAY; Therapy: 26Jun2012 to (Last Rx:09Sep2014) Requested for: 27Jul2015; Status: ACTIVE - Renewal Denied Ordered 4. BD Insulin Syringe MicroFine 28G X 1/2 0.5 ML Miscellaneous; USE DIRECTED; Therapy: 22Apr2015 to (Evaluate:[id number]) Requested for: 22Apr2015; Last Rx:22Apr2015 Ordered 5. Edex 20 MCG Intracavernosal Kit; INJECT 1 ML CAVERNOSAL 10-30 MINUTES PRIOR TO INTERCOURSE; Therapy: 03Oct2012 to (Evaluate:[id number]) Requested for: 22Apr2015; Last Rx:22Apr2015 Ordered 6. Felodipine ER 5 MG Oral Tablet Extended Release 24 Hour; TAKE 1 TABLET DAILY (WILL NEED APPOINTMENT FOR REFILLS); Therapy: 03Oct2012 to (Last Rx:12Jul2015) Requested for: 12Jul2015 Ordered 7. Hydrochlorothiazide 25 MG Oral Tablet; TAKE 1 TABLET DAILY DIRECTED; Therapy: 28Jun2015 to (Evaluate:27Aug2015) Requested for: 28Jun2015; Last Rx:28Jun2015 Ordered 8. Losartan Potassium 100 MG Oral Tablet; TAKE 1 TABLET EVERY DAY; Therapy: 03Oct2012 to (Last Rx:30Jun2015) Requested for: 30Jun2015 Ordered 9. Urea 40 % External Cream; Therapy: [id number] to Recorded Allergies 1. No Known Drug Allergies Vitals Recorded: 95Fyw0915 11:21AM Heart Rate 59 Respiration 16 Systolic 139 Diastolic 94 O2 Saturation 99 Height 5 ft 11 in Weight 178 lb BMI Calculated 24.83 BSA Calculated 2.01 Physical Exam Constitutional General appearance: No acute [...] Liver and spleen: No hepatomegaly or splenomegaly. Musculoskeletal Gait and station: Normal. Neurologic Cranial nerves: Cranial nerves 2-12 intact. Psychiatric Mood and affect: Normal. Assessment 1. Benign essential hypertension (401.1) (I10) 2. Hyperlipidemia (272.4) (E78.5) 3. Multiple sclerosis (340) (G35) 4. Anxiety (300.00) (F41.9) 5. Eczema (692.9) (L30.9) Plan Anxiety 1. ALPRAZolam 0.5 MG Oral Tablet; TAKE 1 TABLET 3 TIMES A DAY NEEDED Rx By: Mick Flowers; Dispense: 10 Days ; #:30 Tablet; Refill: 5; For: Anxiety; KYLE = N; Print Rx; Last Updated By: Debby Solis; 08/05/2015 11:23:51 AM Anxiety, Benign essential hypertension, Eczema, Hyperlipidemia, Multiple sclerosis, Self-catheterizes urinary bladder 2. QU-CBC ( INCLUDES DIFF/PLT ) 6399; Status:Active; Requested for:05Aug2015; Perform:[facility]; Due:04Sep2015; Last Updated By:Debby Solis; 08/05/2015 11:43:17 AM;Ordered; For:Anxiety, Benign essential hypertension, Eczema, Hyperlipidemia, Multiple sclerosis, Self-catheterizes urinary bladder; Ordered By:Mick Flowers; 3. QU-COMPREHENSIVE METABOLIC PANEL 54399; Status:Active; Requested for:05Aug2015; Perform:[facility]; Due:04Sep2015; Last Updated By:Debby Solis; 08/05/2015 11:43:17 AM;Ordered; For:Anxiety, Benign essential hypertension, Eczema, Hyperlipidemia, Multiple sclerosis, Self-catheterizes urinary bladder; Ordered By:Mick Flowers; 4. QU-LIPID PANEL WITH REFLEX TO DIRECT LDL 94273; Status:Active; Requested for:05Aug2015; Perform:[facility]; Due:04Sep2015; Last Updated By:Debby Solis; 08/05/2015 11:43:17 AM;Ordered; For:Anxiety, Benign essential hypertension, Eczema, Hyperlipidemia, Multiple sclerosis, Self-catheterizes urinary bladder; Ordered By:Mick Flowers; 5. QU-PSA ( FREE AND TOTAL ) 28583; Status:Active; Requested for:05Aug2015; Perform:[facility]; Due:04Sep2015; Last Updated By:Debby Solis; 08/05/2015 11:43:17 AM;Ordered; For:Anxiety, Benign essential hypertension, Eczema, Hyperlipidemia, Multiple sclerosis, Self-catheterizes urinary bladder; Ordered By:Mick Flowers; 6. QU-TSH W/REFLEX TO FT4 28429; Status:Active; Requested for:[id number]; Perform:[facility]; Due:04Sep2015; Last Updated By:Debby Solis; 08/05/2015 11:43:17 AM;Ordered; For:Anxiety, Benign essential hypertension, Eczema, Hyperlipidemia, Multiple sclerosis, Self-catheterizes urinary bladder; Ordered By:Mick Flowers; 7. QU-URINALYSIS, COMPLETE W/REFLEX TO CULTURE 3020; Status:Active; Requested for:05Aug2015; Perform:[facility]; Due:04Sep2015; Last Updated By:Debby Solis; 08/05/2015 11:43:17 AM;Ordered; For:Anxiety, Benign essential hypertension, Eczema, Hyperlipidemia, Multiple sclerosis, Self-catheterizes urinary bladder; Ordered By:Mick Flowers; 8. Follow-up visit in 1 year Outpatient Follow-up Status: Complete Done: 05Aug2015 Ordered; For: Anxiety, Benign essential hypertension, Eczema, Hyperlipidemia, Multiple sclerosis, Self-catheterizes urinary bladder; Ordered By: Mick Flowers Performed: Due: [id number]; Last Updated By: Nenita Cheung; 08/05/2015 11:44:42 AM Benign essential hypertension 9. Hydrochlorothiazide 25 MG Oral Tablet; TAKE 1 TABLET DAILY DIRECTED Rx By: Mick Flowers; Dispense: 90 Days ; #:90 Tablet; Refill: 1; For: Benign essential hypertension; KYLE = N; Verified Transmission to [facility] #2510; Last Updated By: [facility]; 08/05/2015 11:24:16 AM Eczema 10. Urea 40 % External Cream; APPLY AND RUB IN A THIN FILM TO AFFECTED AREA(S) DAILY Rx By: Mick Flowers; Dispense: 0 Days ; #:1 X 198 GM Bottle; Refill: 5; For: Eczema; KYLE = N; Verified Transmission to [facility] #25[facility]; Last Updated By: [employer]; 08/05/2015 11:39:58 AM Multiple sclerosis 11. Edex 20 MCG Intracavernosal Kit; INJECT 1 ML CAVERNOSAL 10-30 MINUTES PRIOR TO INTERCOURSE Rx By: Mick Flowers; Dispense: 30 Days ; #:1 X 1 Kit Box; Refill: 5; For: Multiple sclerosis; KYLE = N; Verified Transmission to [facility] #2510; Last Updated By: [employer]; 08/05/2015 11:24:17 AM Formulary Override Reason: Drug not appropriate now, review in future Signatures Electronically signed by : Mick Flowers M.D.; Aug 05 2015 2:36PM CHROME POLISHER (Author) documented in this encounter Plan of Treatment Upcoming Encounters Date Type Department Care Team (Late st Contact Info) Description 09/09/2024 10:00 AM CDT Office Visit [facility] Group Family & Internal Medicine - [address] [phone] Mick Flowers MD [address] [place] [id number] documented as of this encounter Procedures Procedure Name Priority Date/Time Associated Diagnosis Comments COLONOSCOPY Routine 09/19/2011 12:00 AM CDT documented in this encounter Results * Colonoscopy (09/19/2011 12:00 AM CDT) 09/19/2011 09/19/2011 Narrative [facility] TO EPIC CONVERSION - 09/19/2011 12:00 AM CDT Documented hx of procedure Procedure Note Melanie Riddle MD - 04/28/2018 Documented hx of procedure us Generic Conversion Md [facility] PROCEDURE ORDERABLES Final Result [facility] TO EPIC CONVERSION documented in this encounter Visit Diagnoses Not on filedocumented in this encounter Care Teams Beauty Parlor Cleaner Relationship Specialty Start Date End Date Mick Flowers MD [address] [place] [address] PCP - General 10/15/14 documented as of this encounter
--- OUTSIDE RECORDS SUMMARY | 2024-06-29 00:14 | XMS_ITS | Encounter Summary ---
Author Organization [facility] Address [address] [place] [address]. [place], [place] [id number] [place] [address] Care Team Providers Care Area Development Manager Name Role Phone Mick Flowers MD Primary Care Provider Encounter Details Date Type Department Care Team (Latest Contact Info) Description 06/04/2015 Abstract [facility] Social History Tobacco Use Types [...] 09/09/2024 10:00 AM CDT Office Visit [facility] Family & Internal Medicine [address] [phone] Mick Flowers MD [address] [place] [address] documented as of this encounter Visit Diagnoses Not on filedocumented in this encounter Care Teams Area Development Manager Relationship Specialty Start Date End Date Mick Flowers MD [address] [place] [address] PCP - General 10/15/14 documented as of this encounter
--- OUTSIDE RECORDS SUMMARY | 2024-06-29 00:14 | XMS_ITS | Encounter Summary ---
Author Organization [facility] Address [address] [place] [address]. [place], [place] [address] [place] [address] Care Team Providers Care Hull Builder Name Role Phone Mick Flowers MD Primary Care Provider [phone] Mick Flowers MD Primary Care Provider [phone] Encounter Details Date Type Department Care Team (Latest Contact Info) Description 06/26/2012 Abstract [facility] Medical Group Social History Tobacco Use [...] Notes * Generic Conversion MD Denise - 06/26/2012 12:40 PM CST Message Recorded as Task Date: 06/26/2012 09:05 AM, Created By: Austin Chicas Task Name: Med Renewal Request Assigned To: [facility] [place] Kristie Regarding Patient: Doc Emery, Status: Active Comment: Austin Chicas - 26 Jun 2012 9:05 AM TASK CREATED currently on crestor, lossartan, and felodipine...wanting to know if you can review his meds and change something. he is having excessive gas. [phone] [address] [place] Mick Flowers - 26 Jun 2012 12:35 PM TASK REASSIGNED: Previously Assigned To Mick Flowers Change crestor to lipitor 20mg qday Plan 1. Atorvastatin Calcium 20 MG Oral Tablet; TAKE 1 TABLET DAILY DIRECTED; Therapy: to (Evaluate:[id number]); Last Rx:[id number] Signatures Electronically signed by : Adore Quijano, ; Jun 26 2012 12:41PM (Author) TIC TILE LAYER documented in this encounter Plan of Treatment Upcoming Encounters Date Type Department Care Team (Late st Contact Info) Description 09/09/2024 10:00 AM CDT Office Visit [facility] Medical Group Family & Internal Medicine [address] [address] Mick Flowers MD [address] [place] [address] documented as of this encounter Visit Diagnoses Not on filedocumented in this encounter Care Teams Hull Builder Relationship Specialty Start Date End Date Mick Flowers MD [address] [place] [address] PCP - General 10/15/14 Mick Flowers MD [address] [place] [address] PCP - General 08/07/13 10/14/14 documented as of this encounter
--- OUTSIDE RECORDS SUMMARY | 2024-06-29 00:14 | XMS_ITS | Encounter Summary ---
Author Organization [facility] Address [address] [place] [address]. [place], [place] [address] [place] [address] Care Team Providers Care Utility Systems Repairer Operator Name Role Phone Mick Flowers MD Primary Care Provider [phone] Mick Flowers MD Primary Care Provider [phone] Encounter Details Date Type Department Care Team (Latest Contact Info) Description 07/10/2014 Abstract [facility] Medical Group Social History [...] Notes * Generic Conversion MD Denise - 07/10/2014 8:19 AM CST Message Recorded as Task Date: 07/10/2014 08:04 AM, Created By: Glory Saucedo Task Name: Medical Complaint Callback Assigned To: [facility] [place] Donna Regarding Patient: Doc Emery, Status: Active Comment: Glory Saucedo - 10 Jul 2014 8:04 AM TASK CREATED Caller: Self; Medical Complaint; pt has been taking both b/p meds in morning and b/p is getting higher in evenings with symptoms of it being high, should he take one in am and other in pm? should Dr. Flowers be the one to address.Pt did make appt with him to discuss although it is not until 07/20 Dawson Thompson - 10 Jul 2014 8:12 AM TASK REASSIGNED: Previously Assigned To Dawson Thompson The first step would be taking the medicines at different times. This may or may not work as those medicines are technically supposed to last for 24 hours anyway. If splitting the medicines does not work, the dosages will need to be adjusted. Message: Pt notified to try taking medications at different times. Pt agreed, Signatures Electronically signed by : Valentine Angel, ; Jul 10 2014 8:20AM DEVULCANIZER HEAD (Author) documented in this encounter Plan of Treatment Upcoming Encounters Date Type Department Care Team (Late st Contact Info) Description 09/09/2024 10:00 AM CDT Office Visit [facility] Medical Group Family & Internal Medicine - [address] [address] Mick Flowers MD [address] [place] [address] documented as of this encounter Visit Diagnoses Not on filedocumented in this encounter Care Teams Utility Systems Repairer Operator Relationship Specialty Start Date End Date Mick Flowers MD [address] [place] [address] PCP - General 10/15/14 Mick Flowers MD [address] [place] [address] PCP - General 08/07/13 10/14/14 documented as of this encounter
--- OUTSIDE RECORDS SUMMARY | 2024-06-29 00:14 | XMS_ITS | Encounter Summary ---
Author Organization [facility] Address [address] [place] [address]. [place], [place] [address] [place] [address] Care Team Providers Care Director Of Resource Development Name Role Phone Mick Flowers MD Primary Care Provider [phone] Encounter Details Date Type Department Care Team (Latest Contact Info) Description 07/01/2015 Abstract [facility] Medical Group Social History Tobacco Use [...] Medical Group Family & Internal Medicine [address] [address] Mick Flowers MD [address] [place] [address] documented as of this encounter Visit Diagnoses Not on filedocumented in this encounter Care Teams Director Of Resource Development Relationship Specialty Start Date End Date Mick Flowers MD [address] [place] [address] PCP - General 10/15/14 documented as of this encounter
--- OUTSIDE RECORDS SUMMARY | 2024-06-29 00:14 | XMS_ITS | Encounter Summary ---
Author Organization [facility] Address [address] [place] [address]. [place], [place] [address] [place] [address] Care Team Providers Care Cytogenetic Technologist Name Role Phone Mick Flowers MD Primary Care Provider Encounter Details Date Type Department Care Team (Late st Contact Info) Description 12/21/2014 Abstract [facility] [address] [place] [address] , Melanie Carroll MD Social History [...] Medical Group Family & Internal Medicine - [place] [address] [place] [address] Mick Flowers MD [facility] [place] [address] documented as of this encounter Procedures Procedure Name Priority Date/Time Associated Diagnosis Comments COMPREHENSIVE METABOLIC PANEL Routine 12/21/2014 12:00 AM CDT documented in this encounter Results * COMPREHENSIVE METABOLIC PANEL (12/21/2014 12:00 AM CDT) SODIUM S/P/B 138 135 - 146 meq/l [facility] TO EPIC CONVERSION POTASSIUM S/P/B 4.2 3.5 - 5.3 meq/l [facility] TO EPIC CONVERSION CHLORIDE S/P/B 102 95 - 108 meq/l [facility] TO EPIC CONVERSION CO2 26 17 - 31 meq/l [facility] TO EPIC CONVERSION GLUCOSE 82 70 - 125 mg/dl [facility] TO EPIC CONVERSION BUN 15 7 - 25 mg/dl [facility] TO EPIC CONVERSION CREATININE S/P/B 0.84 0.5 - 1.4 mg/dl [facility] TO EPIC CONVERSION CALCIUM S/P/B 9.7 8.5 - 10.3 mg/dl [facility] TO EPIC CONVERSION EGFR NON-AFR. AMER. 102 >60 ml/min/1.7 3 sq.m [facility] TO EPIC CONVERSION 12/21/2014 12/21/2014 Narrative [facility] TO EPIC CONVERSION - 12/22/2014 7:19 AM CDT Reviewed by KARL Dec 22 2014 ??7:19:42:000AM us Generic Conversion Md [facility] Final R esult [facility] TO EPIC CONVERSION documented in this encounter Visit Diagnoses Not on filedocumented in this encounter Care Teams Cytogenetic Technologist Relationship Specialty Start Date End Date Mick Flowers MD [address] [place] [address] PCP - General 10/15/14 documented as of this encounter
--- OUTSIDE RECORDS SUMMARY | 2024-06-29 00:14 | XMS_ITS | Encounter Summary ---
Author Organization [facility] Address [address] [place] [address]. [place], [place] [address] [place] [address] Care Team Providers Care Wire Temperer Name Role Phone Mick Flowers MD Primary Care Provider [phone] Mick Flowers MD Primary Care Provider [phone] Encounter Details Date Type Department Care Team (Late st Contact Info) Description 12/19/2013 Abstract [facility] [address] [place] [address] , Melanie Carroll MD Social [...] Medical Group Family & Internal Medicine - [address] [address] Mick Flowers MD [address] [place] [address] documented as of this encounter Procedures Procedure Name Priority Date/Time Associated Diagnosis Comments LIVER PROFILE Routine 12/19/2013 12:00 AM CDT LIPID PANEL Routine 12/19/2013 12:00 AM CDT THYROID PANEL Routine 12/19/2013 12:00 AM CDT documented in this encounter Results * LIPID PANEL (12/19/2013 12:00 AM CDT) TRIGLYCERIDES 73 0 - 150 mg/dl [facility] TO EPIC CONVERSION CHOLESTEROL 159 0 - 200 mg/dl [facility] TO EPIC CONVERSION HDL 65 40 - 59 mg/dl [facility] TO EPIC CONVERSION LDL CONVERSION 78 0 - 100 mg/dl [facility] TO EPIC CONVERSION NON HDL CHOLESTEROL 94 0 - 130 mg/dL [facility] TO EPIC CONVERSION 12/19/2013 12/19/2013 us Generic Conversion Md [facility] Final R [employer] Performing Organization Address [facility]/ZIP Co de Phone Number [facility] TO EPIC CONVERSION * THYROID PANEL (12/19/2013 12:00 AM CDT) TSH 3.16 0.4 - 5.5 micro IU/ml [facility] TO EPIC CONVERSION 12/19/2013 12/19/2013 us Generic Conversion Md [facility] Final R [employer] [facility] TO EPIC CONVERSION * LIVER PROFILE (12/19/2013 12:00 AM CDT) ALT 24 0 - 48 u/l [facility] TO EPIC CONVERSION AST 22 0 - 42 u/l [facility] TO EPIC CONVERSION GLOBULIN 2.2 2.3 - 3.6 g/dL [facility] TO EPIC CONVERSION 12/19/2013 12/19/2013 us Generic Conversion Md [facility] Final R esult [facility] TO EPIC CONVERSION documented in this encounter Visit Diagnoses Not on filedocumented in this encounter Care Teams Wire Temperer Relationship Specialty Start Date End Date Mick Flowers MD [address] [place] [address] PCP - General 10/15/14 Mick Flowers MD [address] [place] [address] PCP - General 08/07/13 10/14/14 documented as of this encounter
--- OUTSIDE RECORDS SUMMARY | 2024-06-29 00:14 | XMS_ITS | Encounter Summary ---
Author Organization [facility] Address [address] [place] [address]. [place], [place] [address] [place] [address] Care Team Providers Care Turn Sewer Name Role Phone Mick Flowers MD Primary Care Provider [phone] Mick Flowers MD Primary Care Provider [phone] Encounter Details Date Type Department Care Team (Latest Contact Info) Description 09/18/[address] [facility] Social History Tobacco Use Types [...] [facility] Family [facility] Internal Medicine [address] [place] [address] Mick Flowers MD [address] [place] [address] documented as of this encounter Visit Diagnoses Not on filedocumented in this encounter Care Teams Turn Sewer Relationship Specialty Start Date End Date Mick Flowers MD [address] [place] [address] PCP - General 10/15/14 Mick Flowers MD [address] [place] [address] PCP - General 08/07/13 10/14/14 documented as of this encounter
--- OUTSIDE RECORDS SUMMARY | 2024-06-29 00:14 | XMS_ITS | Encounter Summary ---
Author Organization [facility] Address [address] [place] [address]. [place], [place] [address] [place] [address] Care Team Providers Care Secretary Administrative Assistant Name Role Phone Mick Flowers MD Primary Care Provider [phone] Mick Flowers MD Primary Care Provider [phone] Encounter Details Date Type Department Care Team (Latest Contact Info) Description 12/19/[address] [facility] Mick Flowers MD [address] [place] [address] Social History Tobacco Use Types Packs/Day Years [...] [facility] Family & Internal Medicine [facility] [address] [place] [address] Mick Flowers MD [address] [place] [address] documented as of this encounter Procedures Procedure Name Priority Date/Time Associated Diagnosis Comments COMPREHENSIVE METABOLIC PANEL Routine 12/19/2013 7:45 AM CDT LIPID PANEL Routine 12/19/2013 7:45 AM CDT PSA, TOTAL AND FREE Routine 12/19/2013 7 :45 AM CDT THYROID STIM HORMONE TSH Routine 12/19/2013 7:45 AM CDT documented in this encounter Results * LIPID PANEL (12/19/2013 7:45 AM CDT) CHOLESTEROL 159 125 - 200 mg/dL [facility] TO EPIC CONVERSION HDL 65 > OR = 40 mg/dL [facility] TO EPIC CONVERSION TRIGLYCERIDES 73 <150 mg/dL [facility] OUP TO EPIC CONVERSION LDL (CALCULATED) 79 <130 [facility] TO EPIC CONVERSION Comment: Result Comment: UNITS: mg/dL (calc) Desirable range <100 mg/dL for patients with CHD or diabetes and <70 mg/dL for diabetic patients with known heart disease. CHOL/HDL RATIO 2.4 < OR = 5.0 (calc) [facility] TO EPIC CONVERSION NON HDL CHOLESTEROL 94 [facility] TO EPIC CONVERSION Comment: Result Comment: UNITS: mg/dL (calc) Target for non-HDL cholesterol is 30 mg/dL higher than LDL cholesterol target. Test Performed at: [facility] [place], [place] ??[phone] ? JELLY MAYERS DO,MPH 12/19/2013 7:45 AM CDT 12/19/2013 7:45 AM CDT Narrative [facility] TO EPIC CONVERSION - 12/22/2013 12:20 PM CDT Result Communication: Call patient with results Mick Flowers MD LABORATORY Final Result [facility] TO EPIC CONVERSION * THYROID STIM HORMONE, TSH (12/19/2013 7:45 AM CDT) TSH 3.16 0.40 - 4.50 mIU/L [facility] TO EPIC CONVERSION Comment: Result Comment: Test Performed at: [facility] [place], [place] ??[phone] ? JELLY MAYERS DO,MPH 12/19/2013 7:45 AM CDT 12/19/2013 7:45 AM CDT Narrative [facility] TO EPIC CONVERSION - 12/22/2013 12:21 PM CDT Result Communication: Call patient with results us Mick Flowers MD LABORATORY Final Result [facility] TO EPIC CONVERSION * (ABNORMAL) PSA, TOTAL AND FREE (12/19/2013 7:45 AM CDT) PSA TOTAL 0.8 < OR = 4.0 ng/mL [facility] TO EPIC CONVERSION PSA Free 0.1 ng/mL [facility] T O EPIC CONVERSION PSA % Free 13(L) >25 % (calc) [facility] TO EPIC CONVERSION Comment: Result Comment: ?? PSA(ng/mL) ?Free PSA(%) ? Estimated(x) Probability ? of Cancer(as%) 0-2.5 ?(*) ? Approx. 1 2.6-4.0(1) ? 0-27(2) ? 24(3) 4.1-10(4) ?0-10 ?56 ? 11-15 ? 28 ? 16-20 ? 20 ? 21-25 ? 16 ? >or =26 ? 8 >10(+) ? N/A ?>50 References:(1)Prakash.:Urology 60: 469-474 (2002) ? (2)Stella belcher al.:J.Urol 168: 922-925 (2002) ?Free PSA(%) ?? Sensitivity(%) ??Specificity(%) ?< or = 25 ?85 ?19 ?< or = 30 ?93 ? 9 ? (3)Stella et al.:MAKENZIE 277: 0946-9579 (1996) ? (4)Stella et al.:MAKENZIE 279: 8378-9546 (1997) (x)These estimates vary with age, ethnicity, family ?? and YOUSIF results. (*)The diagnostic usefulness of [...] of the presence or absence of disease. REPORT COMMENT: FASTING Test Performed at: [facility] [address] [place], [place] ??[phone] ? JELLY MAYERS DO,MPH 12/19/2013 7:45 AM CDT 12/19/2013 7:45 AM CDT Narrative [facility] TO EPIC CONVERSION - 12/22/2013 12:21 PM CDT Result Communication: Call patient with results Mick Flowers MD LABORATORY Final Result [facility] TO EPIC CONVERSION * COMPREHENSIVE METABOLIC PANEL (12/19/2013 7:45 AM CDT) [facility] GLUCOSE 94 65 - 99 mg/dL [facility] TO EPIC CONVERSION Comment: Result Comment: ? Fasting reference interval BUN 20 7 - 25 mg/dL [facility] TO EPIC CONVERSION CREATININE S/P/B 0.91 0.60 - 1.35 mg/dL [facility] TO EPIC CONVERSION EGFR NON-AFR. AMER. 99 > OR = 60 [facility] TO EPIC CONVERSION Comment:Result Comment: UNIT S: mL/min/1.73m2 EGFR AFR. AMER. 114 > OR = 60 MEDG ROUP TO EPIC CONVERSION Comment:Result Comment: UNIT S: mL/min/1.73m2 BUN CREATININE RATIO NOT APPLICABLE 6 - 22 (calc) [facility] TO EPIC CONVERSION SODIUM S/P/B 142 135 - 146 mmol/L [facility] TO EPIC CONVERSION POTASSIUM S/P/B 4.2 3.5 - 5.3 mmol/L [facility] TO EPIC CONVERSION CHLORIDE S/P/B 107 98 - 110 mmol/L [facility] TO EPIC CONVERSION CO2 24 19 - 30 mmol/L [facility] TO EPIC CONVERSION CALCIUM S/P/B 9.5 8.6 - 10.3 mg/dL [facility] TO EPIC CONVERSION PROTEIN 6.4 6.1 - 8.1 g/dL [facility] TO EPIC CONVERSION ALBUMIN S/P/B 4.2 3.6 - 5.1 g/dL [facility] TO EPIC CONVERSION GLOBULIN 2.2 1.9 - 3.7 [facility] T O EPIC CONVERSION Comment:Result Comment: UNIT S: g/dL (calc) ALBUMIN/GLOBULI N RATIO 1.9 1.0 - 2.5 (calc) [facility] TO EPIC CONVERSION BILIRUBIN TOTAL (FLUID) 0.6 0.2 - 1.2 mg/dL [facility] TO EPIC CONVERSION ALK PHOS 107 40 - 115 U/L [facility] TO EPIC CONVERSION AST 22 10 - 40 U/L [facility] TO EPIC CONVERSION ALT 24 9 - 46 U/L [facility] TO EPIC CONVERSION Comment: Result Comment: Test Performed at: [facility] [address] ??[phone] ? JELLY MAYERS DO,MPH 12/19/2013 7:45 AM CDT 12/19/2013 7:45 AM CDT Narrative [facility] TO EPIC CONVERSION - 12/22/2013 12:21 PM CDT Result Communication: Call patient with results Mick Flowers MD LABORATORY Final Result [facility] TO EPIC CONVERSION documented in this encounter Visit Diagnoses Not on filedocumented in this encounter Care Teams Secretary Administrative Assistant Relationship Specialty Start Date End Date Mick Flowers MD [address] [place] [address] PCP - General 10/15/14 Mick Flowers MD [address] [place] [address] PCP - General 08/07/13 10/14/14 documented as of this encounter
--- OUTSIDE RECORDS SUMMARY | 2024-06-29 00:14 | XMS_ITS | Encounter Summary ---
Author Organization [facility] Address [address] [place] [address]. [place], [place] [address] [place] [address] Care Team Providers Care Manager Water Name Role Phone Mick Flowers MD Primary Care Provider [phone] Encounter Details Date Type Department Care Team (Late st Contact Info) Description 11/18/2014 Abstract [facility] AT [address] [address] , Melanie Carroll MD Social History Tobacco [...] Description 09/09/2024 10:00 AM CDT Office Visit [facility] Medical Group Family & Internal Medicine [address] [place] [address] Mick Flowers MD [address] [place] [address] documented as of this encounter Visit Diagnoses Not on filedocumented in this encounter Care Teams Manager Water Relationship Specialty Start Date End Date Mick Flowers MD [address] [place] [address] PCP - General 10/15/14 documented as of this encounter
--- OUTSIDE RECORDS SUMMARY | 2024-06-29 00:14 | XMS_ITS | Encounter Summary ---
Author Organization [facility] Address [address] [place] [address]. [place], [place] [address] [place] [address] Care Team Providers Care Wellness Rn Name Role Phone Mick Flowers MD Primary Care Provider [phone] Mick Flowers MD Primary Care Provider [phone] Encounter Details Date Type Department Care Team (Latest Contact Info) Description 08/26/2014 Abstract [facility] Medical Group Social History Tobacco [...] Progress Notes * Mick Flowers MD - 08/26/2014 12:53 PM CST Message Recorded as Task Date: 08/26/2014 08:57 AM, Created By: Debby Solis Task Name: Medical Complaint Callback Assigned To: [facility] Team Kristie Regarding Patient: Doc Emery, Status: Active Comment: Debby Solis - 26 Aug 2014 8:57 AM TASK CREATED pts blood pressure has been running low during the day and high at night..he takes both the losartan 100mg and felodopine er 5mg in the morning..he wants to know if the medication should be adjusted??? cb#: [phone] Mick Flowers - 26 Aug 2014 11:49 AM TASK REASSIGNED: Previously Assigned To Mick Flowers would change the timing, take one in the AM and one in the evening. Adore Quijano - 26 Aug 2014 12:52 PM TASK EDITED lmtc Message: pt notified- kh Signatures Electronically signed by : Adore Quijano, ; Aug 26 2014 12:53PM SUSTAINABLE LANDSCAPE ARCHITECT (Author) documented in this encounter Plan of Treatment Upcoming Encounters Date Type Department Care Team (Late st Contact Info) Description 09/09/2024 10:00 AM CDT Office Visit [facility] Medical Group Family & Internal Medicine - [address] [address] Mick Flowers MD [address] [place] [address] documented as of this encounter Visit Diagnoses Not on filedocumented in this encounter Care Teams Wellness Rn Relationship Specialty Start Date End Date Mick Flowers MD [address] [place] [address] PCP - General 10/15/14 Mick Flowers MD [address] [place] [address] PCP - General 08/07/13 10/14/14 documented as of this encounter
--- OUTSIDE RECORDS SUMMARY | 2024-06-29 00:14 | XMS_ITS | Encounter Summary ---
Author Organization [facility] Address [address] [place] [address]. [place], [place] [address] [place] [address] Care Team Providers Care Cane Weigher Name Role Phone Mick Flowers MD Primary Care Provider [phone] Encounter Details Date Type Department Care Team (Latest Contact Info) Description 05/24/2015 Abstract [facility] Mick Flowers MD [facility] [place] [address] Social History Tobacco Use Types Packs/Day Years [...] Description 09/09/2024 10:00 AM CDT Office Visit [facility] Family & Internal Medicine [facility] [address] [place] [address] Mick Flowers MD [facility] [place] [address] documented as of this encounter Procedures Procedure Name Priority Date/Time Associated Diagnosis Comments HEPATIC FUNCTION PANEL Routine 05/24/2015 3:24 PM STRUCTURAL TECHNICIAN documented in this encounter Results * HEPATIC FUNCTION PANEL (05/24/2015 3:24 PM STRUCTURAL TECHNICIAN) PROTEIN 6.9 6.1 - 8.1 g/dL [facility] TO EPIC CONVERSION ALBUMIN S/P/B 4.7 3.6 - 5.1 g/dL [facility] TO EPIC CONVERSION GLOBULIN 2.2 1.9 - 3.7 [facility] T O EPIC CONVERSION Comment:Result Comment: UNIT S: g/dL (calc) ALBUMIN/GLOBULIN RATIO 2.1 1.0 - 2.5 (calc) [facility] TO EPIC CONVERSION BILIRUBIN TOTAL (FLUID) 0.5 0.2 - 1.2 mg/dL [facility] TO EPIC CONVERSION BILIRUBIN DIRECT S/P/B 0.1 < OR = 0.2 mg/dL [facility] TO EPIC CONVERSION BILIRUBIN INDIRECT S/P/B 0.4 0.2 - 1.2 [facility] TO EPIC CONVERSION Comment:Result Comment: UNIT S: mg/dL (calc) ALK PHOS 111 40 - 115 U/L [facility] TO EPIC CONVERSION AST 28 10 - 35 U/L [facility] TO EPIC CONVERSION ALT 42 9 - 46 U/L [facility] TO EPIC CONVERSION Comment: Result Comment: Test Performed at: [employer] [address] ??[phone] ? JELLY MAYERS DO,MPH 05/24/2015 3:24 PM STRUCTURAL TECHNICIAN 05/24/2015 3:24 PM STRUCTURAL TECHNICIAN Narrative [facility] TO EPIC CONVERSION - 05/24/2015 3:25 PM STRUCTURAL TECHNICIAN Result Communication: Call patient with results Mick Flowers MD LABORATORY Final Result Performing Organization Address City/State/[facility] Co de Phone Number [facility] TO EPIC CONVERSION documented in this encounter Visit Diagnoses Not on filedocumented in this encounter Care Teams Cane Weigher Relationship Specialty Start Date End Date Mick Flowers MD [address] [place] [address] PCP - General 10/15/14 documented as of this encounter
--- OUTSIDE RECORDS SUMMARY | 2024-06-29 00:14 | XMS_ITS | Encounter Summary ---
Author Organization [facility] Address [address] [place] [address]. [place], [place] [address] [place] [address] Care Team Providers Care Consultant Rn Name Role Phone Mick Flowers MD Primary Care Provider [phone] Mick Flowers MD Primary Care Provider [phone] Encounter Details Date Type Department Care Team (Latest Contact Info) Description 02/04/2014 Abstract [facility] [...] [facility] Family & Internal Medicine [address] [place] [address] Mick Flowers MD [address] [place] [address] documented as of this encounter Visit Diagnoses Not on filedocumented in this encounter Care Teams Consultant Rn Relationship Specialty Start Date End Date Mick Flowers MD [address] [place] [address] PCP - General 10/15/14 Mick Flowers MD [address] [place] [address] PCP - General 08/07/13 10/14/14 documented as of this encounter
--- OUTSIDE RECORDS SUMMARY | 2024-06-29 00:14 | XMS_ITS | Encounter Summary ---
Author Organization [facility] Address [address] [place] [address]. [place], [place] [address] [place] [address] Care Team Providers Care Sleeve Setter Name Role Phone Mick Flowers MD Primary Care Provider [phone] Mick Flowers MD Primary Care Provider [phone] Encounter Details Date Type Department Care Team (Latest Contact Info) Description 09/27/2012 Abstract [facility] Social History Tobacco [...] Description 09/09/2024 10:00 AM CDT Office Visit [facility] Family & Internal Medicine [place] [place] [address] Mick Flowers MD [address] [place] [address] documented as of this encounter Visit Diagnoses Not on filedocumented in this encounter Care Teams Sleeve Setter Relationship Specialty Start Date End Date Mick Flowers MD [address] [place] [address] PCP - General 10/15/14 Mick Flowers MD [address] [place] [address] PCP - General 08/07/13 10/14/14 documented as of this encounter
--- OUTSIDE RECORDS SUMMARY | 2024-06-29 00:14 | XMS_ITS | Encounter Summary ---
Author Organization [facility] Address [address] [place] [address]. [place], [place] [address] [place] [address] Care Team Providers Care Paralegals Name Role Phone Mick Flowers MD Primary Care Provider [phone] Mick Flowers MD Primary Care Provider [phone] Encounter Details Date Type Department Care Team (Late st Contact Info) Description 10/12/2014 [facility] AT [address] [address] Melanie Walker MD Social History Tobacco Use Types Packs/Day [...] Description 09/09/2024 10:00 AM CDT Office Visit [facility] Medical Group Family & Internal Medicine - [address] [address] Mick Flowers MD [address] [place] [address] documented as of this encounter Visit Diagnoses Not on filedocumented in this encounter Care Teams Paralegals Relationship Specialty Start Date End Date Mick Flowers MD [address] [place] [address] PCP - General 10/15/14 Mick Flowers MD [address] [place] [address] PCP - General 08/07/13 10/14/14 documented as of this encounter
--- OUTSIDE RECORDS SUMMARY | 2024-06-29 00:14 | XMS_ITS | Encounter Summary ---
Author Organization [facility] Address [address] [place] [address]. [place], [place] [address] [place] [address] Care Team Providers Care Reel Man Name Role Phone Mick Flowers MD Primary Care Provider [phone] Encounter Details Date Type Department Care Team (Latest Contact Info) Description 05/25/2015 Abstract [facility] Social History Tobacco Use Types Packs/Day Years Used Date Smoking Tobacco: Never Sex and Gender Information Value Date Recorded Sex Assigned at Male 10/07/2018 11:33 AM CDT Legal Sex Male 9:27 PM CDT Gender Identity Male 10/07/2018 11:33 AM CDT Sexual Orientation Straight 10/07/2018 11 :33 AM CDT documented as of this encounter Progress Notes * Mick Flowers MD - 05/25/2015 9:30 AM CST Message Labs are normal. LETTER MAILED NOTIFYING PT--NK Verified Results QU-HEPATIC FUNCTION PANEL [id number] 03:24PM Mick Flowers Test Name Result Flag Reference PROTEIN, TOTAL 6.9 g/dL 6.1-8.1 ALBUMIN 4.7 g/dL 3.6-5.1 GLOBULIN 2.2 1.9-3.7 UNITS: g/dL (calc) ALBUMIN/GLOBULIN RATIO 2.1 (calc) 1.0-2.5 BILIRUBIN, TOTAL 0.5 mg/dL 0.2-1.2 BILIRUBIN, DIRECT 0.1 mg/dL < OR = 0.2 BILIRUBIN, INDIRECT 0.4 0.2-1.2 UNITS: mg/dL (calc) ALKALINE PHOSPHATASE 111 U/L 40-115 AST 28 U/L 10-35 ALT 42 U/L 9-46 Test Performed at: [facility] [address] [address] [place] [address] JELLY MAYERS DO,MPH Signatures Electronically signed by : Debby Solis, ; May 25 2015 11:38AM AUTO ENGINE MECHANIC (Author) documented in this encounter Plan of Treatment Upcoming Encounters Date Type Department Care Team (Late st Contact Info) Description 09/09/2024 10:00 AM CDT Office Visit [facility] Medical Group Family & Internal Medicine - [address] [address] Mick Flowers MD [address] [place] [address] documented as of this encounter Visit Diagnoses Not on filedocumented in this encounter Care Teams Reel Man Relationship Specialty Start Date End Date Mick Flowers MD [address] [place] [address] PCP - General 10/15/14 documented as of this encounter
--- OUTSIDE RECORDS SUMMARY | 2024-06-29 00:14 | XMS_ITS | Encounter Summary ---
Author Organization [facility] Address [address] [place] [address]. [place], [place] [address] [place] [address] Care Team Providers Care Geophysical Prospecting Surveyor Name Role Phone Mick Flowers MD Primary Care Provider [phone] Encounter Details Date Type Department Care Team (Late st Contact Info) Description 12/23/2014 Abstract [facility] [address] [place] [address] , Melanie Carroll MD Social History Tobacco [...] Description 09/09/2024 10:00 AM CDT Office Visit [facility] Medical Group Family & Internal Medicine [address] [place] [address] Mick Flowers MD [address] [place] [address] documented as of this encounter Visit Diagnoses Not on filedocumented in this encounter Care Teams Geophysical Prospecting Surveyor Relationship Specialty Start Date End Date Mick Flowers MD [address] [place] [address] PCP - General 10/15/14 documented as of this encounter
--- OUTSIDE RECORDS SUMMARY | 2024-06-29 00:14 | XMS_ITS | Encounter Summary ---
Author Organization [facility] Address [address] [place] [address]. [place], [place] [address] [place] [address] Care Team Providers Care Cuff Turner Name Role Phone Mick Flowers MD Primary Care Provider [phone] Encounter Details Date Type Department Care Team (Latest Contact Info) Description 05/24/2015 Abstract [facility] Medical Group Social History Tobacco [...] Notes * Generic Conversion MD Denise - 05/24/2015 1:44 PM CST Message Recorded as Task Date: 05/24/2015 08:32 AM, Created By: Nenita Cheung Task Name: Medical Complaint Callback Assigned To: [facility] Team Kristie Regarding Patient: Doc Emery, Status: Active Comment: Nenita Cheung - 24 May 2015 8:32 AM TASK CREATED Caller: Self; Medical Complaint; is asking if you would order lfts. is concerned with liver function due to meds he is taking and recent alcohol consumption. Mick Whitaker - 24 May 2015 12:57 PM TASK REASSIGNED: Previously Assigned To Mick Flowers for LFTs Message: pt notified, order faxed to [facility] Plan 1. QU-HEPATIC FUNCTION PANEL [id number]; Status:Active; Requested for:24May2015; Perform:[facility]; Due:[id number];Ordered; For:Hyperlipidemia, Multiple sclerosis; Ordered By:Mick Flowers; Signatures Electronically signed by : Adore Quijano, ; May 24 2015 1:45PM IMMIGRATION LAWYER (Author) documented in this encounter Plan of Treatment Upcoming Encounters Date Type Department Care Team (Late st Contact Info) Description 09/09/2024 10:00 AM CDT Office Visit [facility] Medical Group Family & Internal Medicine [address] [address] Mick Flowers MD [address] [place] [address] documented as of this encounter Visit Diagnoses Not on filedocumented in this encounter Care Teams Cuff Turner Relationship Specialty Start Date End Date Mick Flowers MD [address] [place] [address] PCP - General 10/15/14 documented as of this encounter
--- OUTSIDE RECORDS SUMMARY | 2024-06-29 00:14 | XMS_ITS | Encounter Summary ---
Author Organization [facility] Address [address] [place] [address]. [place], [place] [address] [place] [address] Care Team Providers Care Supervisor Inspection Name Role Phone Mick Flowers MD Primary Care Provider [phone] Encounter Details Date Type Department Care Team (Latest Contact Info) Description 10/15/2014 Abstract [facility] Medical [facility] , Generic Carly, Social History Tobacco Use Types Packs/Day Years Used Date Smoking Tobacco: Never Sex and Gender Information Value Date Recorded Sex Assigned at Male 10/07/2018 11:33 AM CDT Legal Sex Male 9:27 PM CDT Gender Identity Male 10/07/2018 11:33 AM CDT Sexual Orientation Straight 10/07/2018 11 :33 AM CDT documented as of this encounter Procedure Notes * Mick Flowers MD - 10/15/2014 6:10 PM CDT [place] [address] Patient: MARITA EMERY Med Rec#: [id number] Birthdate: 1965 Admit/Svce Date: 10/15/2014 Disch Date: Attending Md: DAVE CORDERO MD CHART DOCUMENT Echocardiography Report Pat.Name: MARITA EMERY Pat.ID: [id number] .Date: 10/15/2014 Refer.MD: ELI Exam Time: 8:52:00 AM Study Type:ECHO WITH CARDIAC DOPPLER COMP Height: 70in Weight: 177.63lb BSA: 1.99 m2 Age: 3 1965,49Y Sex: MALE BP: 140/80 HR: 67 bpm Sonogrphr: Flora Erwin [facility] Pat. Stat.:Outpatient Reason for Study:HTN, Murmur Procedures:2D, M-mode, Doppler, Color Flow Race: C SUMMARY: Estimated left ventricular ejection fraction is 65-70%. Left ventricular diastolic function is normal. Inferior vena cava shows >50% collapse with respiration consistent with normal right atrial pressure. Mild tricuspid regurgitation. Right ventricular systolic pressure is 30 mmHg. FINDINGS: LV: The left ventricular size is normal. Estimated left ventricular ejection fraction is 65-70%. Normal wall thickness. Left ventricular diastolic function is normal. RV: The right ventricle size is normal. The right ventricular function is normal. IVS: Intraventricular septum is normal. LA: The left atrial size is normal. RA: Right atrial size is normal. IAS: Atrial septum appears intact. DIMA: No evidence of pericardial effusion. AO: Normal aortic root. SVn: Inferior vena cava shows >50% collapse with respiration consistent with normal right atrial pressure. AV: The aortic valve is trileaflet. No evidence of aortic valve stenosis. No evidence of aortic valve regurgitation. MV: Structurally normal mitral valve. No evidence of mitral regurgitation. No evidence of mitral stenosis. PV: No evidence of pulmonic valve stenosis. No evidence of pulmonic regurgitation. TV: Mild tricuspid regurgitation. Right ventricular systolic pressure is 30mmHg. No evidence of tricuspid valve stenosis. MEASUREMENTS: DOPPLER LVOT LVOTmnPG 3 mmHg LVOTpkPG 5 mmHg LVOT TVI 23.1 cm LVOT SV 66 ml Index 33.2 ml/m LVOTpkVel 115 cm/s (70-110)* Pulmonary Veins PVn A Dur 106 msec PVnpkVels 67.6 cm/s PVnpkVeld 52.3 cm/s PVnVs/Vd 1.3 AV Forward Flow AV mnPG 6 mmHg AV pkPG 10 mmHg AV TVI 32.5 cm Area (TVI) 2.02 cm2 (3-5)* Index 1.02 cm /m AV pkVel 157 cm/s (100-170) Area (Michael) 2.08 cm2 (3-5)* MV Forward Flow MV pkE 80 cm/s (60-130) MV E/A 1.2 MV pkA 69.1 cm/s MV DeTm 229 msec PV Forward Flow PV AC 104 msec PV pkPG 6 mmHg PV pkVel 121 cm/s (60-90) * TV Regurg Flow TV pkVel 264 cm/s (30-70)* TV pkPG 28 mmHg TV Forward Flow TV pkE 52.7 cm/s Lat E' Lat e 11.8 cm/s Lat E/E' Lat E/e 6.8 Med E' Med e 9.46 cm/s Med E/E' Med E/e 8.5 PV Antegrade Flow Acceleration Sl 1167 cm/s2 RA VOLUME Atrial Villalta 46 mm Atrial Villalta 14.3 cm2 Atrial Villalta 36.4 ml RV DIM BASAL Distance 38 mm RV DIM LENGTH Distance 70 mm RV DIM MID Distance 28 mm 2D Left Ventricle LngAxd 6.44 cm LVESV BP 30 ml LngAxd 7.13 cm LVIDd 5.55 cm (3.6-5.2)* LV EDV 83 ml LVIDs 3.32 cm (2.3-3.9) LV EDV 97 ml LV EF 60 % LVEDV BP 94 ml LV EF 74 % LngAxs 5.05 cm LV EF BP 68 % LngAxs 5.48 cm LV SV 50 ml LV ESV 33 ml LV SV 72 ml LV ESV 25 ml LV SV BP 64 ml LVPW LVPWd 1.08 cm Ventricular Septum IVSd 1.13 cm Left Atrium LA VOLBP 52 ml Index 26.1 ml/m LVOT LVOT 1.9 cm LVOTArea 2.84 cm2 Ratios IVS LA Biplane LAVol I BP 26.1 ml/m2 MMODE Ratios LA/Ao 1.21 (0.87-1.1)* Aorta Ao Rt 3.3 cm (2-3.7) Aortic Valve AV sep 2.5 cm (1.5-2.6) Left Atrium LAIDs 4 cm Signed 10/15/2014 06:07 PM Dave Cordero M.D. cc: Flex UREÑA M.D. documented in this encounter Plan of Treatment Upcoming Encounters Date Type Department Care Team (Late st Contact Info) Description 09/09/2024 10:00 AM CDT Office Visit [facility] Medical Group Family & Internal Medicine [address] [address] Mick Flowers MD [address] [place] [address] documented as of this encounter Visit Diagnoses Not on filedocumented in this encounter Care Teams Supervisor Inspection Relationship Specialty Start Date End Date Mick Flowers MD [address] [place] [address] PCP - General 10/15/14 documented as of this encounter
--- OUTSIDE RECORDS SUMMARY | 2024-06-29 00:14 | XMS_ITS | Encounter Summary ---
Author Organization [facility] Address [address] [place] [address]. [place], [place] [address] [place] [address] Care Team Providers Care Behavioral School Counselors Name Role Phone Mick Flowers MD Primary Care Provider [phone] Encounter Details Date Type Department Care Team (Late st Contact Info) Description 10/15/2014 Abstract [facility] AT [address] [address] , Melanie Carroll MD Social History Tobacco [...] Medical Group Family & Internal Medicine - [place] [address] [place] [address] Mick Flowers MD [facility] [place] [address] documented as of this encounter Procedures Procedure Name Priority Date/Time Associated Diagnosis Comments EXTERNAL EJECTION FRACTION Routine 10/15/2014 12:00 AM CDT documented in this encounter Results * EXTERNAL EJECTION FRACTION (10/15/2014 12:00 AM CDT) EJECTION FRACTION 65-70 [facility] Comment: Estimated left ventricular ejection fraction is 65-70%. Left ventricular diastolic function is normal. Inferior vena cava shows >50% collapse with respiration consistentwith normal right atrial pressure. Mild tricuspid regurgitation. Right ventricular systolic pressure is 30 mmHg. Anatomical Region Laterality Modality Other 10/15/2014 10/15/2014 Narrative 10/15/2014 12:00 AM CDT Echo with Cardiac Doppler, Dave Cordero us Generic Conversion Md RIDDLE OTHER Final R esult documented in this encounter Visit Diagnoses Not on filedocumented in this encounter Care Teams Behavioral School Counselors Relationship Specialty Start Date End Date Mick Flowers MD [address] [place] [address] PCP - General 10/15/14 documented as of this encounter
--- OUTSIDE RECORDS SUMMARY | 2024-06-29 00:14 | XMS_ITS | Encounter Summary ---
Author Organization [facility] Address [address] [place] [address]. [place], [place] [address] [place] [address] Care Team Providers Care Drafter Apprentice Name Role Phone Mick Flowers MD Primary Care Provider [phone] Mick Flowers MD Primary Care Provider [phone] Encounter Details Date Type Department Care Team (Latest Contact Info) Description 08/16/2012 Abstract [facility] Medical Group Social [...] Notes * Generic Conversion MD Denise - 08/16/2012 10:00 AM CST Message Recorded as Task Date: 08/15/2012 12:11 PM, Created By: Jing Macias Task Name: Follow Up Assigned To: [facility] [place] Kristie Regarding Patient: Doc Emery, Status: Active Comment: Jing Macias - 15 Aug 2012 12:11 PM TASK CREATED Caller: Self; General Medical Question; Pt on Lipitor for 2 mths now and wondering when/if he should be getting labs done to check if its working for him or not. If labs needed fax order to his work @ [phone] Mick Flowers - 15 Aug 2012 3:17 PM TASK REASSIGNED: Previously Assigned To Mick Flowers Check Lipids, LFT, CPK after 3 months on meds. Message: left message on answering machine, order faxed to number Plan 1. CK - Creatine Kinase Requested for: 13Sep2012 2. Lipid Profile Requested for: 13Sep2012 3. LIVER (Hepatic Profile) Requested for: 13Sep2012 Signatures Electronically signed by : Adore Quijano, ; Aug 16 2012 10:03AM (Author) INSPECTOR documented in this encounter Plan of Treatment Upcoming Encounters Date Type Department Care Team (Late st Contact Info) Description 09/09/2024 10:00 AM CDT Office Visit [facility] Medical Group Family & Internal Medicine - [address] [address] Mick Flowers MD [address] [place] [address] documented as of this encounter Visit Diagnoses Not on filedocumented in this encounter Care Teams Drafter Apprentice Relationship Specialty Start Date End Date Mick Flowers MD [address] [place] [address] PCP - General 10/15/14 Mick Flowers MD [address] [place] [address] PCP - General 08/07/13 10/14/14 documented as of this encounter
--- OUTSIDE RECORDS SUMMARY | 2024-06-29 00:14 | XMS_ITS | Encounter Summary ---
Author Organization [facility] Address [address] [place] [address]. [place], [place] [address] [place] [address] Care Team Providers Care Vendor Specialist Name Role Phone Mick Flowers MD Primary Care Provider [phone] Encounter Details Date Type Department Care Team (Late st Contact Info) Description 10/15/2014 [facility] [address] [place] [address] , Melanie Carroll MD Social [...] 09/09/2024 10:00 AM CDT Office Visit [facility] Medical Group Family & Internal Medicine [address] [address] [place] [address] Mick Flowers MD [address] [place] [address] documented as of this encounter Visit Diagnoses Not on filedocumented in this encounter Care Teams Vendor Specialist Relationship Specialty Start Date End Date Mick Flowers MD [address] [place] [address] PCP - General 10/15/14 documented as of this encounter
--- OUTSIDE RECORDS SUMMARY | 2024-06-29 00:14 | XMS_ITS | Encounter Summary ---
Author Organization [facility] Address [address] [place] [address]. [place], [place] [address] [place] [address] Care Team Providers Care Order Entry Clerk Name Role Phone Mick Flowers MD Primary Care Provider [phone] Mick Flowers MD Primary Care Provider [phone] Encounter Details Date Type Department Care Team (Latest Contact Info) Description 09/19/2011 Abstract [facility] Medical Group [...] CENTER Medical Group Family & Internal Medicine [place] [address] [place] [address] Mick Flowers MD [address] [place] [address] documented as of this encounter Visit Diagnoses Not on filedocumented in this encounter Care Teams Order Entry Clerk Relationship Specialty Start Date End Date Mick Flowers MD [address] [place] [address] PCP - General 10/15/14 Mick Flowers MD [address] [place] [address] PCP - General 08/07/13 10/14/14 documented as of this encounter
--- OUTSIDE RECORDS SUMMARY | 2024-06-29 00:14 | XMS_ITS | Encounter Summary ---
Author Organization [facility] Address [address] [place] [address]. [place], [place] [address] [place] [address] Care Team Providers Care Fill Plant Operator Name Role Phone Mick Flowers MD Primary Care Provider [phone] Encounter Details Date Type Department Care Team (Latest Contact Info) Description 11/18/2014 Abstract [facility] Medical Group Social History Tobacco Use [...] Description 09/09/2024 10:00 AM CDT Office Visit [facility] Medical Group Family & Internal Medicine [address] [address] Mick Flowers MD [address] [place] [address] documented as of this encounter Visit Diagnoses Not on filedocumented in this encounter Care Teams Fill Plant Operator Relationship Specialty Start Date End Date Mick Flowers MD [address] [place] [address] PCP - General 10/15/14 documented as of this encounter
--- OUTSIDE RECORDS SUMMARY | 2024-06-29 00:14 | XMS_ITS | Encounter Summary ---
Author Organization [facility] Address [address] [place] [address]. [place], [place] [address] [place] [address] Care Team Providers Care Bond Broker Name Role Phone Mick Flowers MD Primary Care Provider [phone] Mick Flowers MD Primary Care Provider [phone] Encounter Details Date Type Department Care Team (Latest Contact Info) Description 08/18/2014 Abstract [facility] Medical Group Social History Tobacco Use [...] HOSPITAL Medical Group Family & Internal Medicine [address] [place] [address] Mick Flowers MD [address] [place] [address] documented as of this encounter Visit Diagnoses Not on filedocumented in this encounter Care Teams Bond Broker Relationship Specialty Start Date End Date Mick Flowers MD [address] [place] [address] PCP - General 10/15/14 Mick Flowers MD [address] [place] [address] PCP - General 08/07/13 10/14/14 documented as of this encounter
--- OUTSIDE RECORDS SUMMARY | 2024-06-29 00:14 | XMS_ITS | Encounter Summary ---
Author Organization [facility] Address [address] [place] [address]. [place], [place] [address] [place] [address] Care Team Providers Care Master Rigger Name Role Phone Mick Flowers MD Primary Care Provider [phone] Mick Flowers MD Primary Care Provider [phone] Encounter Details Date Type Department Care Team (Latest Contact Info) Description 09/22/2014 Abstract [facility] Medical Group Social History Tobacco [...] HOSPITAL Medical Group Family & Internal Medicine [place] [address] [place] [address] Mick Flowers MD [address] [place] [address] documented as of this encounter Visit Diagnoses Not on filedocumented in this encounter Care Teams Master Rigger Relationship Specialty Start Date End Date Mick Flowers MD [address] [place] [address] PCP - General 10/15/14 Mick Flowers MD [address] [place] [address] PCP - General 08/07/13 10/14/14 documented as of this encounter
--- OUTSIDE RECORDS SUMMARY | 2024-06-29 00:14 | XMS_ITS | Encounter Summary ---
Author Organization [facility] Address [address] [place] [address]. [place], [place] [address] [place] [address] Care Team Providers Care Stucco Worker Name Role Phone Mick Flowers MD Primary Care Provider [phone] Mick Flowers MD Primary Care Provider [phone] Encounter Details Date Type Department Care Team (Latest Contact Info) Description 12/23/2013 Abstract [facility] Social [...] Progress Notes * Mick Flowers MD - 12/23/2013 10:05 PM CDT Message Labs are normal letter mailed notifying patient- Verified Results QU-LIPID PANEL [id number] 07:45AM Mick Flowers Test Name Result Flag Reference CHOLESTEROL, TOTAL 159 mg/dL 125-200 HDL CHOLESTEROL 65 mg/dL > OR = 40 TRIGLYCERIDES 73 mg/dL <150 LDL-CHOLESTEROL 79 <130 UNITS: mg/dL (calc) Desirable range <100 mg/dL for patients with CHD or diabetes and <70 mg/dL for diabetic patients with known heart disease. CHOL/HDLC RATIO 2.4 (calc) < OR = 5.0 NON HDL CHOLESTEROL 94 UNITS: mg/dL (calc) Target for non-HDL cholesterol is 30 mg/dL higher than LDL cholesterol target. Test Performed at: [facility] [address] JELLY MAYERS DO,MPH QU-COMPREHENSIVE METABOLIC PANEL [id number] 19Dec2013 07:45AM Mick Flowers Test Name Result Flag Reference GLUCOSE 94 mg/dL 65-99 Fasting reference interval UREA NITROGEN (BUN) 20 mg/dL 7-25 CREATININE 0.91 mg/dL 0.60-1.35 eGFR NON-AFR. LEBANESE 99 > OR = 60 UNITS: mL/min/1.73m2 eGFR 114 > OR = 60 UNITS: mL/min/1.73m2 BUN/CREATININE RATIO 6-22 NOT APPLICABLE (calc) SODIUM 142 mmol/L 135-146 POTASSIUM 4.2 mmol/L 3.5-5.3 CHLORIDE 107 mmol/L 98-110 CARBON DIOXIDE 24 mmol/L 19-30 CALCIUM 9.5 mg/dL 8.6-10.3 PROTEIN, TOTAL 6.4 g/dL 6.1-8.1 ALBUMIN 4.2 g/dL 3.6-5.1 GLOBULIN 2.2 1.9-3.7 UNITS: g/dL (calc) ALBUMIN/GLOBULIN RATIO 1.9 (calc) 1.0-2.5 BILIRUBIN, TOTAL 0.6 mg/dL 0.2-1.2 ALKALINE PHOSPHATASE 107 U/L 40-115 AST 22 U/L 10-40 ALT 24 U/L 9-46 Test Performed at: [facility] [address] [address] JELLY MAYERS DO,MPH QU-TSH 899 19Dec2013 07:45AM Mick Flowers Test Name Result Flag Reference TSH 3.16 mIU/L 0.40-4.50 Test Performed at: [facility] [address] JELLY MAYERS DO,MPH QU-PSA ( FREE AND TOTAL ) [address] 19Dec2013 07:45Mick Arenas Test Name Result Flag Reference TOTAL PSA 0.8 ng/mL < OR = 4.0 FREE PSA 0.1 ng/mL % FREE PSA 13 % (calc) L >25 PSA(ng/mL) Free PSA(%) Estimated(x) Probability of Cancer(as%) 0-2.5 (*) Approx. 1 2.6-4.0(1) 0-27(2) 24(3) 4.1-10(4) 0-10 56 11-15 28 16-20 20 21-25 16 >or =26 8 >10(+) N/A >50 References:(1)Stella et al.:Urology 60: 469-474 (2001) (2)Stella et al.:J.Urol 168: 922-925 (2001) Free PSA(%) Sensitivity(%) Specificity(%) < or = 25 85 19 < or = 30 93 9 (3)Vivianona et al.:MAKENZIE 277: 4699-4681 (1996) (4)Catalona et al.:MAKENZIE 279: 6653-4055 (1997) (x)These estimates vary with age, ethnicity, family and YOUSIF results. (*)The diagnostic usefulness of [...] disease. REPORT COMMENT: FASTING Test Performed at: [facility] [address] [place] [address] JELLY MAYERS DO,MPH Signatures Electronically signed by : Adore Quijano, ; Dec 24 2013 7:19AM LABOR RELATIONS SUPERVISOR (Author) documented in this encounter Plan of Treatment Upcoming Encounters Date Type Department Care Team (Late st Contact Info) Description 09/09/2024 10:00 AM CDT Office Visit [facility] Family & Internal Medicine - [place] [address] [place] [address] Mick Flowers MD [facility] [place] [address] documented as of this encounter Visit Diagnoses Not on filedocumented in this encounter Care Teams Stucco Worker Relationship Specialty Start Date End Date Mick Flowers MD [address] [place] [address] PCP - General 10/15/14 Mick Flowers MD [address] [place] [address] PCP - General 08/07/13 10/14/14 documented as of this encounter
--- OUTSIDE RECORDS SUMMARY | 2024-06-29 00:14 | XMS_ITS | Encounter Summary ---
Author Organization [facility] Address [address] [place] [address]. [place], [place] [address] [place] [address] Care Team Providers Care Ripsaw Grader Name Role Phone Mick Flowers MD Primary Care Provider [phone] Mick Flowers MD Primary Care Provider [phone] Encounter Details Date Type Department Care Team (Late st Contact Info) Description 08/05/2013 Abstract [facility] Family & Internal Medicine [place] [id number] [place] [address] Mick Flowers MD [address] [place] [address] Social History Tobacco Use Types Packs/Day Years [...] Sign Reading Time Taken Comments Blood Pressure 122/82 08/05/2013 9:21 AM DATE PITTER Pulse 69 08/05/2013 8:48 AM DATE PITTER Temperature - - Respiratory Rate - - Oxygen Saturation - - Inhaled Oxygen Concentration - - Weight 80.7 kg (178 lb) 08/05/2013 8:48 AM DATE PITTER Height 180.3 cm (5' 11 ) 08/05/2013 8:48 AM DATE PITTER Body Mass Index 24.83 08/05/2013 8:48 AM DATE PITTER documented in this encounter Progress Notes * Mick Flowers MD - 08/05/2013 8:45 AM CST Reason For Visit Reason For Visit: Acute Visit Chief Complaint Chief Complaint Free Text: c/o bp has been bouncing all around, running high on machine History of Present Illness Hypertension (Follow-Up): The patient presents for follow-up [...] Blood pressure control has been good. Medications: The patient is adherent with his medication regimen. He denies medication side effects. Disease Management: The patient is doing well with his blood pressure goals. Review of Systems Focused-Male: Constitutional: Normal. ENT: normal. Cardiovascular: Normal. Respiratory: Normal. Gastrointestinal: Normal. Genitourinary: Normal. Integumentary: Normal. Musculoskeletal: Normal. Neurological: Normal. Psychiatric: Normal. Active Problems 1. Anxiety (300.00) (F41.9) 2. Benign essential hypertension (401.1) (I10) 3. Hyperlipidemia (272.4) (E78.5) Surgical History 1. History of Bladder Surgery Family History 1. Family history of Cancer 2. Family history of Benign Essential Hypertension 3. Family history of Cancer 4. Family history of Cancer Social History ?? Never a smoker Current Meds 1. ALPRAZolam 0.5 MG Oral Tablet; TAKE 1 TABLET 3 TIMES DAILY NEEDED; Therapy: 03Oct2012 to (Evaluate:05Jul2013); Last Rx:[id number] Ordered 2. Atorvastatin Calcium 20 MG Oral Tablet (Lipitor); TAKE 1 TABLET DAILY DIRECTED; Therapy: 26Jun2012 to (Evaluate:28Sep2013) Requested for: [id number]; Last Rx:[id number] Ordered 3. Edex 20 MCG Intracavernosal Kit; Inject 1ml cavernosal 10-30 min prior to intercourse; Therapy: 03Oct2012 to (Last Rx:[id number]) Ordered 4. Felodipine ER 5 MG Oral Tablet Extended Release 24 Hour; TAKE 1 TABLET ONCE DAILY; Therapy: 03Oct2012 to (Evaluate:28Sep2013); Last Rx:[id number] Ordered 5. Insulin Syringe 28G X 1/2 0.5 ML Miscellaneous; USE DIRECTED; Therapy: 59Rkk6089 to (Last Rx:[id number]) Ordered 6. Losartan Potassium 50 MG Oral Tablet; TAKE 1 TABLET DAILY DIRECTED; Therapy: 86Cgl7755 to (Evaluate:28Sep2013); Last Rx:[id number] Ordered Allergies 1. No Known Drug Allergies Vitals Vital Signs [Data Includes: Current Encounter] Recorded by : Mick Flowers at 05Aug2013 09:21AM Recorded by : Adore Quijano at 05Aug2013 08:48AM Heart Rate 69 Respiration 16 Blood Pressure 82 mm Hg 122 mm Hg 83 mm Hg 134 mm Hg Height 5 ft 11 in Weight 178 lb BMI Calculated 24.83 kg/m2 BSA Calculated 2.01 m2 Physical Exam Constitutional General appearance: No acute distress, well appearing and well nourished. Pulmonary Respiratory effort: No increased work of breathing or signs of respiratory distress. Auscultation of lungs: Clear to auscultation. Cardiovascular Palpation of heart: Normal PMI, no thrills. Auscultation of heart: Normal rate and rhythm, normal S1 and S2, without murmurs. Examination of extremities for edema and/or varicosities: Normal. Psychiatric Mood and affect: Normal. Assessment 1. Benign essential hypertension (401.1) (I10) Plan 1. Take your blood pressure twice a day. Record the numbers and bring them with you to your appointments. Status: Complete Done: 05Aug2013 09:25AM Ordered; For: Benign essential hypertension; Ordered By: Mick Flowers 2. CBC W Differential Status: Hold For - Manual Activation Requested for: 05Aug2013 Perform: [facility] Due: [id number]; Ordered; For: Benign essential hypertension,Hyperlipidemia; Ordered By: Mick Flowers 3. Compr Metabolic Prof ( CMP ) Status: Hold For - Manual Activation Requested for: 05Aug2013 Perform: [facility] Due: [id number]; Ordered; For: Benign essential hypertension,Hyperlipidemia; Ordered By: Mick Flowers 4. Creatine Kinase ( CK ) ( CPK ) Status: Hold For - Manual Activation Requested for: 05Aug2013 Perform: [facility] Due: [id number]; Ordered; For: Benign essential hypertension,Hyperlipidemia; Ordered By: Mick Flowers 5. Lipid Profile Status: Hold For - Manual Activation Requested for: 05Aug2013 Perform: [facility] Due: [id number]; Ordered; For: Benign essential hypertension,Hyperlipidemia; Ordered By: Mick Flowers 6. TSH W Reflex Free T4 Status: Hold For - Manual Activation Requested for: 05Aug2013 Perform: [facility] Due: [id number]; Ordered; For: Benign essential hypertension,Hyperlipidemia; Ordered By: Mick Flowers 7. Urinalysis ( UA ) Culture If Ind Status: Hold For - Manual Activation Requested for: 05Aug2013 Perform: [facility] Due: [id number]; Ordered; For: Benign essential hypertension,Hyperlipidemia; Ordered By: Mick Flowers 8. Vitamin D 25 - Hydroxy Status: Hold For - Manual Activation Requested for: 05Aug2013 Perform: [facility] Due: [id number]; Ordered; For: Benign essential hypertension,Hyperlipidemia; Ordered By: Mick Flowers Signatures Electronically signed by : Mick Flowers M.D.; Aug 05 2013 9:26AM DATE PITTER (Author) PITTER documented in this encounter Plan of Treatment Upcoming Encounters Date Type Department Care Team (Late st Contact Info) Description 09/09/2024 10:00 AM CDT Office Visit [facility] Group Family & Internal Medicine - [place] [address] [place] [address] Mick Flowers MD [address] [place] [address] documented as of this encounter Procedures Procedure Name Priority Date/Time Associated Diagnosis Comments URINALYSIS WI REFLEX TO CULTURE Routine 08/07/2013 8:30 AM DATE PITTER TSH W/REFLEX Routine 08/07/2013 8:20 AM DATE PITTER COMPREHENSIVE METABOLIC PANEL Routine 08/07/2013 8:20 AM DATE PITTER LIPID PANEL Routine 08/07/2013 8:20 AM DATE PITTER CBC W/DIFF AUTOMATED Routine 08/07/2013 8:20 AM DATE PITTER VITAMIN D, 25 OH Routine 08/07/2013 8:20 AM DATE PITTER CK (CPK) Routine 08/07/2013 8:20 AM DATE PITTER documented in this encounter Results * URINALYSIS WI REFLEX TO CULTURE (08/07/2013 8:30 AM DATE PITTER) SPECIMEN TYPE URINE, CATHETERIZED [facility] TO EPIC CONVERSION COLOR (U) YELLOW [facility] T O EPIC CONVERSION TRANSPARENCY CLEAR [facility] P TO EPIC CONVERSION SPECIFIC GRAVITY (U) 1.016 1.001 - 1.03 [facility] TO EPIC CONVERSION U PH 7.0 5.0 - 9.0 [facility] TO EPIC CONVERSION LEUKOCYTES (U) NEG NEG [facility] OUP TO EPIC CONVERSION NITRITES NEG NEG [facility] T O EPIC CONVERSION PROTEIN (U) NEG <30 MG/DL [facility] TO EPIC CONVERSION GLUCOSE NEG NEG MG/DL [facility] TO EPIC CONVERSION KETONES MG/DL (U) NEG NEG MG/DL [facility] TO EPIC CONVERSION UROBILINOGEN NEG NEG MG/DL [facility] TO EPIC CONVERSION BILIRUBIN (U) NEG NEG MG/DL [facility] TO EPIC CONVERSION BLOOD (U) NEG NEG [facility] T O EPIC CONVERSION REFLEX URINE CULTURE: CULTURE IS NOT INDICATED [facility] TO EPIC CONVERSION SQUAMOUS EPITHELIALS MODERATE /LPF [facility] TO EPIC CONVERSION RBC/HPF <1 <6 /HPF [facility] T O EPIC CONVERSION WBC 1 <6 /HPF [facility] T O EPIC CONVERSION MUCUS FEW /LPF [facility] T O EPIC CONVERSION 08/07/2013 8:30 AM DATE PITTER 08/07/2013 8:30 AM DATE PITTER Narrative [facility] TO EPIC CONVERSION - 08/07/2013 9:18 PM DATE PITTER Result Communication: No patient communication needed at this time Mick Flowers MD URINE ORDERABLES Final Result [facility] TO EPIC CONVERSION * COMPREHENSIVE METABOLIC PANEL (08/07/2013 8:20 AM DATE PITTER) SODIUM S/P/B 137 136 - 145 mmol/L [facility] TO EPIC CONVERSION POTASSIUM S/P/B 4.3 3.5 - 5.1 mmol/L [facility] TO EPIC CONVERSION CHLORIDE S/P/B 100 98 - 107 mmol/L [facility] TO EPIC CONVERSION CO2 28 22 - 29 mmol/L [facility] TO EPIC CONVERSION ANION GAP 13 8 - 20 [facility] T O EPIC CONVERSION BUN 14 8 - 23 mg/dL [facility] TO EPIC CONVERSION CREATININE S/P/B 0.77 0.70 - 1.20 mg/dL [facility] TO EPIC CONVERSION GFR ESTIMATE >60 >60 mL/min/1 .73m'2 [facility] TO EPIC CONVERSION EGFR AFR. AMER. >60 NOTE: eGFR is not calculated for patients <18 years of age. This is an estimated GFR (CKD EPI) and should not be used for calculating drug doses. >60 mL/min/1 .73m'2 [facility] TO EPIC CONVERSION GLUCOSE 91 70 - 99 mg/dL [facility] TO EPIC CONVERSION CALCIUM S/P/B 10.0 8.6 - 10.2 mg/dL [facility] TO EPIC CONVERSION BILIRUBIN TOTAL S/P/B 0.5 0.2 - 1.2 mg/dL [facility] TO EPIC CONVERSION AST 23 0 - 40 IU/L [facility] TO EPIC CONVERSION ALT 31 0 - 41 IU/L [facility] TO EPIC CONVERSION ALKALINE PHOSPHATASE S/P/B 114 40 - 129 IU/L [facility] TO EPIC CONVERSION TOTAL PROTEIN S/P/B 7.0 6.4 - 8.3 g/dL [facility] TO EPIC CONVERSION ALBUMIN S/P/B 4.6 3.5 - 5.2 g/dL [facility] TO EPIC CONVERSION GLOBULIN 2.4 2.3 - 3.6 g/dL [facility] TO EPIC CONVERSION A/G RATIO 1.9 1.0 - 2.0 [facility] TO EPIC CONVERSION 08/07/2013 8:20 AM DATE PITTER 08/07/2013 8:20 AM DATE PITTER Narrative [facility] TO EPIC CONVERSION - 08/07/2013 9:30 PM DATE PITTER Result Communication: No patient communication needed at this time Mick Flowers MD LABORATORY Final Result [facility] TO EPIC CONVERSION * TSH W/REFLEX (SNS) (08/07/2013 8:20 AM DATE PITTER) TSH 3.22 0.27 - 4.20 mIU/mL [facility] TO EPIC CONVERSION Comment:Result Comment: FREE T4 NOT INDICATED 08/07/2013 8:20 AM DATE PITTER 08/07/2013 8:20 AM DATE PITTER Narrative [facility] TO EPIC CONVERSION - 08/07/2013 9:30 PM DATE PITTER Result Communication: No patient communication needed at this time Mick Flowers MD LABORATORY Final Result Performing Organization Address City/[facility]/ZIP Co de Phone Number [facility] TO EPIC CONVERSION * (ABNORMAL) CBC W/DIFF AUTOMATED (08/07/2013 8:20 AM DATE PITTER) WBC 4.0(L) 4.8 - 10.8 X10'3/uL [facility] TO EPIC CONVERSION RBC 5.11 4.70 - 6.10 X10'6/uL [facility] TO EPIC CONVERSION HGB 15.6 14.0 - 18.0 g/dL [facility] TO EPIC CONVERSION HCT 46.8 42.0 - 52.0 % [facility] TO EPIC CONVERSION MCV 91.5 80.0 - 94.0 fL [facility] TO EPIC CONVERSION MCH 30.6 27.0 - 31.0 pg [facility] TO EPIC CONVERSION MCHC 33.4 32.0 - 36.0 g/dL [facility] TO EPIC CONVERSION RDW 13.3 11.5 - 14.5 % [facility] TO EPIC CONVERSION PLT 194 130 - 400 X10'3/uL [facility] TO EPIC CONVERSION GLUCOSE 9.5 7.0 - 10.4 fL [facility] TO EPIC CONVERSION BASOPHILS % 0.6 0.0 - 1.0 % [facility] TO EPIC CONVERSION EOSINOPHILS % 6.1(H) 1.0 - 3.0 % [facility] TO EPIC CONVERSION NEUTROPHILS % 50.9 43.0 - 65.0 % [facility] TO EPIC CONVERSION LYMPHOCYTES % 33.0 20.0 - 46.0 % [facility] TO EPIC CONVERSION MONOCYTES % 9.4 5.0 - 12.0 % [facility] TO EPIC CONVERSION DIFFERENTIAL TYPE AUTOMATED [facility] TO EPIC CONVERSION 08/07/2013 8:20 AM DATE PITTER 08/07/2013 8:20 AM DATE PITTER Narrative [facility] TO EPIC CONVERSION - 08/07/2013 9:00 PM DATE PITTER Result Communication: No patient communication needed at this time Mick Flowers MD LABORATORY Final Result [facility] TO EPIC CONVERSION * LIPID PANEL (08/07/2013 8:20 AM DATE PITTER) CHOLESTEROL 173 <200 mg/dL [facility] TO EPIC CONVERSION TRIGLYCERIDES 108 <150 mg/dL [facility] TO EPIC CONVERSION HDL 73 >59 mg/dL [facility] TO EPIC CONVERSION LDL (CALCULATED) 78 <100 mg/dL [facility] TO EPIC CONVERSION NON HDL CHOLESTEROL 100 <130 mg/dL [facility] TO EPIC CONVERSION Comment: Result Comment: NOTE: WHEN THE TRIGLYCERIDES ARE >200 mg/dL, NON HDL C IS A SECONDARY TARGET OF THERAPY, WITH A GOAL 30 mg/dL HIGHER THAN THE IDENTIFIED LDL C GOAL. CHOL/HDL RATIO 2.4 0.0 - 4.5 [facility] TO EPIC CONVERSION VLDL CHOLESTEROL (LMP) 22 5 - 55 mg/dL [facility] TO EPIC CONVERSION LIPID INTERPRETATION NIH CONCENSUS REPORT RECOMMENDATI ONS: ?ADULT ?CHILD ??LOW RISK: ?CHOLESTERO L ? <200 ? <170 ?TRIGLYCERI DE ?<150 ?--- ?HDL ? >=60 ?--- ?LDL ? <100 ? <110 ?BORDERLINE : ?CHOLESTERO L ? 200-239 ?? 170-199 ?TRIGLYCERI DE ?150-199 ? --- ?HDL ?40-59 ?--- ?LDL ? 100-159 ?? 110-129 ?HIGH RISK: ?CHOLESTERO L ? >=240 ?>=200 ?TRIGLYCERI DE ?>=200 ? --- ?HDL ?<40 ?--- ?LDL ? >=160 ?>=130 [facility] TO EPIC CONVERSION 08/07/2013 8:20 AM DATE PITTER 08/07/2013 8:20 AM DATE PITTER Narrative [facility] TO EPIC CONVERSION - 08/07/2013 9:30 PM DATE PITTER Result Communication: No patient communication needed at this time Mick Flowers MD LABORATORY Final Result Performing Organization Address [facility] de Phone Number [facility] TO EPIC CONVERSION * CK (CPK) (08/07/2013 8:20 AM DATE PITTER) Pathologist [facility] CPK 182 39 - 308 IU/L [facility] TO EPIC CONVERSION 08/07/2013 8:20 AM DATE PITTER 08/07/2013 8:20 AM DATE PITTER Narrative [facility] TO EPIC CONVERSION - 08/07/2013 9:30 PM DATE PITTER Result Communication: No patient communication needed at this time Mick Flowers MD LABORATORY Final Result Performing Organization Address [facility] de Phone Number [facility] TO EPIC CONVERSION * VITAMIN D, 25 OH (08/07/2013 8:20 AM DATE PITTER) VITAMIN D 25 HYDROXY S/P/B 50 30 - 100 NG/ML [facility] TO EPIC CONVERSION Comment: Result Comment: ?? SUPPLEMENTING WITH VITAMIN D2 MAY RESULT IN FALSELY LOW RESULTS, CLINICAL CORRELATION NEEDED. ? INTERPRETATION ? DEFICIENT ??<20 ?INSUFFICIENT 20-30 ?SUFFICIENT 30-100 POTENTIAL INTOXICATION ??>100 ? TESTING PERFORMED AT [facility], A MEMBER OF THE [facility]. 08/07/2013 8:20 AM DATE PITTER 08/07/2013 8:20 AM DATE PITTER Narrative [facility] TO EPIC CONVERSION - 08/08/2013 6:20 PM DATE PITTER Result Communication: No patient communication needed at this time Mick Flowers MD LABORATORY Final Result [facility] TO EPIC CONVERSION documented in this encounter Visit Diagnoses Not on filedocumented in this encounter Care Teams Ripsaw Grader Relationship Specialty Start Date End Date Mick Flowers MD [address] [place] [address] PCP - General 10/15/14 Mick Flowers MD [address] [place] [address] PCP - General 08/07/13 10/14/14 documented as of this encounter
--- OUTSIDE RECORDS SUMMARY | 2024-06-29 00:14 | XMS_ITS | Encounter Summary ---
Author Organization [facility] Address [address] [place] [address]. [place], [place] [address] [place] [address] Care Team Providers Care Tin Recovery Worker Name Role Phone Mick Flowers MD Primary Care Provider [phone] Encounter Details Date Type Department Care Team (Late st Contact Info) Description 11/20/2014 Abstract [facility] [address] [place] [address] , Melanie Carroll MD Social History Tobacco [...] Sign Reading Time Taken Comments Blood Pressure 140/78 11/20/2014 1:49 PM CDT Pulse 77 11/20/2014 1:48 PM CDT Temperature - - Respiratory Rate - - Oxygen Saturation - - Inhaled Oxygen Concentration - - Weight 80.3 kg (177 lb) 11/20/2014 1:48 PM CDT Height 177.8 cm (5' 10 ) 11/20/2014 1:48 PM CDT Body Mass Index 25.4 11/20/2014 1:48 PM CDT documented in this encounter Plan of Treatment Upcoming Encounters Date Type Department Care Team (Late st Contact Info) Description 09/09/2024 10:00 AM CDT Office Visit [facility] Medical Group Family & Internal Medicine [address] [address] Mick Flowers MD [address] [place] [address] documented as of this encounter Visit Diagnoses Not on filedocumented in this encounter Care Teams Tin Recovery Worker Relationship Specialty Start Date End Date Mick Flowers MD [address] [place] [address] PCP - General 10/15/14 documented as of this encounter
--- OUTSIDE RECORDS SUMMARY | 2024-06-29 00:14 | XMS_ITS | Encounter Summary ---
Author Organization [facility] Address [address] [place] [address]. [place], [place] [address] [place] [address] Care Team Providers Care Passenger Car Upholsterer Apprentice Name Role Phone Mick Flowers MD Primary Care Provider [phone] Mick Flowers MD Primary Care Provider [phone] Encounter Details Date Type Department Care Team (Latest Contact Info) Description 01/22/2013 Abstract [facility] Medical Group Social History Tobacco Use [...] 10:00 AM CDT Office Visit [facility] Medical Group Family & Internal Medicine [place] [address] [place] [address] Mick Flowers MD [address] [place] [address] documented as of this encounter Visit Diagnoses Not on filedocumented in this encounter Care Teams Passenger Car Upholsterer Apprentice Relationship Specialty Start Date End Date Mick Flowers MD [address] [place] [address] PCP - General 10/15/14 Mick Flowers MD [address] [place] [address] PCP - General 08/07/13 10/14/14 documented as of this encounter
--- OUTSIDE RECORDS SUMMARY | 2024-06-29 00:14 | XMS_ITS | Encounter Summary ---
Author Organization [facility] Address [address] [place] [address]. [place], [place] [address] [place] [address] Care Team Providers Care Kettle Cook Name Role Phone Mick Flowers MD Primary Care Provider [phone] Mick Flowers MD Primary Care Provider [phone] Encounter Details Date Type Department Care Team (Late st Contact Info) Description 10/12/2014 [facility] [address] [place] [address] Melanie Walker MD Social History Tobacco Use [...] Medical Group Family & Internal Medicine - [address] [address] Mick Flowers MD [address] [place] [address] documented as of this encounter Visit Diagnoses Not on filedocumented in this encounter Care Teams Kettle Cook Relationship Specialty Start Date End Date Mick Flowers MD [address] [place] [address] PCP - General 10/15/14 Mick Flowers MD [address] [place] [address] PCP - General 08/07/13 10/14/14 documented as of this encounter
--- OUTSIDE RECORDS SUMMARY | 2024-06-29 00:14 | XMS_ITS | Encounter Summary ---
Author Organization [facility] Address [address] [place] [address]. [place], [place] [address] [place] [address] Care Team Providers Care Livestock Laborer Name Role Phone Mick Flowers MD Primary Care Provider [phone] Mick Flowers MD Primary Care Provider [phone] Encounter Details Date Type Department Care Team (Late st Contact Info) Description 07/20/2014 Abstract [facility] Group Family & Internal Medicine [address] [place] [address] Mick Flowers MD [address] [place] [address] Social History Tobacco Use Types Packs/Day Years [...] Sign Reading Time Taken Comments Blood Pressure 147/93 07/20/2014 8:35 AM LAND DEVELOPER Pulse 65 07/20/2014 8:35 AM LAND DEVELOPER Temperature - - Respiratory Rate - - Oxygen Saturation - - Inhaled Oxygen Concentration - - Weight 80.3 kg (177 lb) 07/20/2014 8:35 AM LAND DEVELOPER Height 180.3 cm (5' 11 ) 07/20/2014 8:35 AM LAND DEVELOPER Body Mass Index 24.69 07/20/2014 8:35 AM LAND DEVELOPER documented in this encounter Progress Notes * Mick Flowers MD - 07/20/2014 9:00 AM CST Reason For Visit Chronic Recheck Visit Chief Complaint Pt is here for follow up on blood pressure. Over the last week has checked daily and has been elevated. History of Present Illness The patient presents for follow-up of primary hypertension. The patient states he has been doing well with his blood pressure control since the last visit. Interval Events: He has been checking his blood pressure multiple times a day and he has noticed that his blood pressure is well controlled in the morning but in the afternoon and evening his blood pressure is elevated. He feels that he is able to notice when his blood pressure is elevated. Symptoms: Denies impaired vision, denies dyspnea, denies chest pain, denies intermittent leg claudication and denies lower extremity edema. Associated symptoms include no headache and no memory loss. Home monitoring: The patient checks his blood pressure regularly. Blood pressure control has been poor. Medications: The patient is adherent with his medication regimen. He denies medication side effects. Disease Management: The patient is doing well with his blood pressure goals. Review of Systems Constitutional: Normal. ENT: normal. Cardiovascular: Normal. Respiratory: Normal. Gastrointestinal: Normal. Genitourinary: Normal. Integumentary: Normal. Musculoskeletal: Normal. Neurological: Normal. Psychiatric: Normal. Active Problems 1. Anxiety (300.00) (F41.9) 2. Benign essential hypertension (401.1) (I10) 3. Herpes zoster (053.9) (B02.9) 4. Hyperlipidemia (272.4) (E78.5) 5. Multiple sclerosis (340) (G35) 6. Screening for prostate cancer (V76.44) (Z12.5) 7. Self-catheterizes urinary bladder (V49.89) (Z78.9) Surgical History 1. History of Bladder Surgery Family History Mother 1. Family history of Cancer Father 2. Family history of Benign Essential Hypertension 3. Family history of Cancer Family History 4. Family history of Cancer Social History ?? Never a smoker Current Meds 1. ALPRAZolam 0.5 MG Oral Tablet; TAKE 1 TABLET BY MOUTH 3 TIMES A DAY NEEDED; Therapy: 72Kex0786 to (Evaluate:04Lty4609) Requested for: 30Jun2014; Last Rx:30Jun2014 Ordered 2. Atorvastatin Calcium 20 MG Oral Tablet (Lipitor); TAKE 1 TABLET BY MOUTH EVERY DAY; Therapy: 26Jun2012 to (Last Rx:24Apr2014) Requested for: 24Apr2014 Ordered 3. Edex 20 MCG Intracavernosal Kit; INJECT 1 ML CAVERNOSAL 10-30 MINUTES PRIOR TO INTERCOURSE; Therapy: 03Oct2012 to (Evaluate:24May2014) Requested for: 24Apr2014; Last Rx:24Apr2014 Ordered 4. Felodipine ER 5 MG Oral Tablet Extended Release 24 Hour; Take 1 tablet daily; Therapy: 03Oct2012 to (Last Rx:29Jun2014) Requested for: 29Jun2014 Ordered 5. Insulin Syringe 28G X 1/2 0.5 ML Miscellaneous; USE DIRECTED; Therapy: 03Oct2012 to (Last Rx:03Oct2012) Ordered 6. Losartan Potassium 50 MG Oral Tablet; Take 1 tablet daily as directed; Therapy: 03Oct2012 to (Last Rx:64Mhb4190) Requested for: 33Fiu9240 Ordered Allergies 1. No Known Drug Allergies Immunizations Influenza --- Series1: 16Apr2013 Vitals Recorded by : Zuleyma Perez at 20Jul2014 08:35AM Heart Rate 65 Respiration 16 Systolic 147 Diastolic 93 O2 Saturation 100 Height 5 ft 11 in Weight 177 lb BMI Calculated 24.69 BSA Calculated 2 Physical Exam Constitutional General appearance: No acute distress, well appearing and well nourished. Pulmonary Respiratory effort: No increased work of breathing or signs of respiratory distress. Auscultation of lungs: Clear to auscultation. Cardiovascular Palpation of heart: Normal PMI, no thrills. Auscultation of heart: Normal rate and rhythm, normal S1 and S2, without murmurs. Examination of extremities for edema and/or varicosities: Normal. Assessment 1. Benign essential hypertension (401.1) (I10) Plan Benign essential hypertension 1. Changed: From Losartan Potassium 50 MG Oral Tablet Take 1 tablet daily as directed To Losartan Potassium 100 MG Oral Tablet TAKE 1 TABLET BY MOUTH EVERY DAY Rx By: Mick Flowers; Dispense: 90 Days ; #:90 Tablet; Refill: 3; For: Benign essential hypertension; KYLE = N; Record 2. Take your blood pressure twice a day. Record the numbers and bring them with you to your appointments. Status: Complete Done: 20Jul2014 09:14AM Ordered; For: Benign essential hypertension; Ordered By: Mick Flowers 3. Call if: Your blood pressure is frequently higher than 140/90. Status: Complete Done: 20Jul2014 09:14AM Ordered; For: Benign essential hypertension; Ordered By: Mick Flowers 4. Follow-up visit in 3 months Outpatient Follow-up Status: Complete Done: 20Jul2014 Ordered; For: Benign essential hypertension; Ordered By: Mick Flowers Performed: Due: 89Vwf8154;Last Updated By: Glory Saucedo; 07/20/2014 9:12:55 AM Signatures Electronically signed by : Mick Flowers M.D.; Jul 20 2014 9:15AM LAND DEVELOPER (Author) documented in this encounter Plan of Treatment Upcoming Encounters Date Type Department Care Team (Late st Contact Info) Description 09/09/2024 10:00 AM CDT Office Visit [facility] Medical Group Family & Internal Medicine - [address] [address] Mick Flowers MD [address] [place] [address] documented as of this encounter Visit Diagnoses Not on filedocumented in this encounter Care Teams Livestock Laborer Relationship Specialty Start Date End Date Mick Flowers MD [address] [place] [address] PCP - General 10/15/14 Mick Flowers MD [address] [place] [address] PCP - General 08/07/13 10/14/14 documented as of this encounter
--- OUTSIDE RECORDS SUMMARY | 2024-06-29 00:14 | XMS_ITS | Encounter Summary ---
Author Organization [facility] Address [address] [place] [address]. [place], [place] [address] [place] [address] Care Team Providers Care Summer Counselor Name Role Phone Mick Flowers MD Primary Care Provider [phone] Encounter Details Date Type Department Care Team (Late st Contact Info) Description 03/31/2015 Abstract [facility] Medical Group Family & Internal Medicine [address] [phone] Mick Flowers MD [address] [place] [address] Social History Tobacco Use Types Packs/Day Years Used Date Smoking Tobacco: Never Sex and Gender Information Value Date Recorded Sex Assigned at Male 10/07/2018 11:33 AM CDT Legal Sex Male 9:27 PM CDT Gender Identity Male 10/07/2018 11:33 AM CDT Sexual Orientation Straight 10/07/2018 11 :33 AM CDT documented as of this encounter Progress Notes * Generic Conversion MD Denise - 03/31/2015 11:15 AM CDT Reason For Visit Nurse Visit: Injection Chief Complaint Patient is here for a flu shot. Active Problems 1. Anxiety (300.00) (F41.9) 2. Benign essential hypertension (401.1) (I10) 3. Herpes zoster (053.9) (B02.9) 4. Hyperlipidemia (272.4) (E78.5) 5. Multiple sclerosis (340) (G35) 6. Screening for prostate cancer (V76.44) (Z12.5) 7. Self-catheterizes urinary bladder (V49.89) (Z78.9) Current Meds 1. ALPRAZolam 0.5 MG Oral Tablet; TAKE 1 TABLET 3 TIMES A XENIA; Therapy: 30Kaa2266 to (Evaluate:02Feb2015) Requested for: 90Dyd5304; Last Rx:82Ksj2414 Ordered 2. Atorvastatin Calcium 20 MG Oral Tablet; TAKE 1 TABLET BY MOUTH EVERY DAY; Therapy: 26Jun2012 to (Last Rx:09Sep2014) Requested for: 09Sep2014 Ordered 3. Edex 20 MCG Intracavernosal Kit; INJECT 1 ML CAVERNOSAL 10-30 MINUTES PRIOR TO INTERCOURSE; Therapy: 15Dpz4533 to (Evaluate:24May2014) Requested for: 24Apr2014; Last Rx:42Puk5095 Ordered 4. Felodipine ER 5 MG Oral Tablet Extended Release 24 Hour; Take 1 tablet daily; Therapy: 40Xfr7713 to (Last Rx:38Xbv4455) Requested for: 80Kro3903 Ordered 5. Insulin Syringe 28G X 1/2 0.5 ML Miscellaneous; USE DIRECTED; Therapy: 63Jgt2831 to (Last Rx:48Amd7832) Ordered 6. Losartan Potassium 100 MG Oral Tablet; TAKE 1 TABLET BY MOUTH EVERY DAY; Therapy: 24Dcf6630 to (Evaluate:08Nrg9249) Requested for: 37Qro2139; Last Rx:96Zsb0517 Ordered Allergies 1. No Known Drug Allergies Plan 1. Fluarix Quadrivalent 0.5 ML Intramuscular Suspension For: Health Maintenance; Ordered By:Mick Flowers; Effective Date:31Mar2015; Administered by: Debby Solis: 03/31/2015 11:28:00 AM; Last Updated By: Debby Solis; 03/31/2015 11:28:30 AM no s/s of adverse reaction Signatures Electronically signed by : Debby Solis, ; Mar 31 2015 11:28AM HUMAN RESOURCES ASSOCIATE (Author) documented in this encounter Plan of Treatment Upcoming Encounters Date Type Department Care Team (Late st Contact Info) Description 09/09/2024 10:00 AM CDT Office Visit [facility] Medical Group Family & Internal Medicine [address] [address] Mick Flowers MD [address] [place] [address] documented as of this encounter Visit Diagnoses Not on filedocumented in this encounter Care Teams Summer Counselor Relationship Specialty Start Date End Date Mick Flowers MD [address] [place] [address] PCP - General 10/15/14 documented as of this encounter
--- OUTSIDE RECORDS SUMMARY | 2024-06-29 00:14 | XMS_ITS | Encounter Summary ---
Author Organization [facility] Address [address] [place] [address]. [place], [place] [address] [place] [address] Care Team Providers Care Vaccine Key Customer Leader Name Role Phone Mick Flowers MD Primary Care Provider [phone] Mick Flowers MD Primary Care Provider [phone] Encounter Details Date Type Department Care Team (Latest Contact Info) Description 10/12/2014 Abstract [facility] Medical [facility] Social History Tobacco [...] CENTER Medical Group Family & Internal Medicine [address] [place] [address] Mick Flowers MD [address] [place] [address] documented as of this encounter Visit Diagnoses Not on filedocumented in this encounter Care Teams Vaccine Key Customer Leader Relationship Specialty Start Date End Date Mick Flwoers MD [address] [place] [address] PCP - General 10/15/14 Mick Flowers MD [address] [place] [address] PCP - General 08/07/13 10/14/14 documented as of this encounter
--- OUTSIDE RECORDS SUMMARY | 2024-06-29 00:14 | XMS_ITS | Encounter Summary ---
Author Organization [facility] Address [address] [place] [address]. [place], [place] [address] [place] [address] Care Team Providers Care Vehicle Monitor Technician Name Role Phone Mick Flowers MD Primary Care Provider [phone] Mick Flowers MD Primary Care Provider [phone] Encounter Details Date Type Department Care Team (Latest Contact Info) Description 12/18/2012 Abstract [facility] Medical Group [...] HOSPITAL Medical Group Family & Internal Medicine [address] [place] [address] Mick Flowers MD [address] [place] [address] documented as of this encounter Visit Diagnoses Not on filedocumented in this encounter Care Teams Vehicle Monitor Technician Relationship Specialty Start Date End Date Mick Flowers MD [address] [place] [address] PCP - General 10/15/14 Mick Flowers MD [address] [place] [address] PCP - General 08/07/13 10/14/14 documented as of this encounter
--- OUTSIDE RECORDS SUMMARY | 2024-06-29 00:14 | XMS_ITS | Encounter Summary ---
Author Organization [facility] Address [address] [place] [address]. [place], [place] [address] [place] [address] Care Team Providers Care Neon Sign Servicer Name Role Phone Mick Flowers MD Primary Care Provider [phone] Mick Flowers MD Primary Care Provider [phone] Encounter Details Date Type Department Care Team (Latest Contact Info) Description 12/12/2013 Abstract [facility] Medical Group Social History [...] Notes * Generic Conversion MD Denise - 12/12/2013 2:37 PM CDT Message Recorded as Task Date: 12/11/2013 09:18 AM, Created By: Vanita Manzanares Task Name: Medical Complaint Callback Assigned To: [facility] Kristie Regarding Patient: Doc Emery, Status: Active Comment: Vanita Manzanares - 11 Dec 2013 9:18 AM TASK CREATED Caller: Self; Medical Complaint; pt would like orders for labwork including PSA,liver and kidney Mick Flowers - 12 Dec 2013 2:11 PM TASK REASSIGNED: Previously Assigned To Mick Flowers CMP, Lipids, TSH, PSA Plan 1. QU-COMPREHENSIVE METABOLIC PANEL 01888 Status: Active Requested for: 12Dec2013 2. QU-LIPID PANEL 7600 Status: Active Requested for: 12Dec2013 3. QU-TSH 899 Status: Active Requested for: 12Dec2013 4. QU-PSA ( FREE AND TOTAL ) 94096 Status: Active Requested for: 12Dec2013 Signatures Electronically signed by : Austin Perea, ; Dec 12 2013 2:40PM DIRECTOR OF CULTURE (Author) documented in this encounter Plan of Treatment Upcoming Encounters Date Type Department Care Team (Late st Contact Info) Description 09/09/2024 10:00 AM CDT Office Visit [facility] Medical Group Family & Internal Medicine - [address] [address] Mick Flowers MD [address] [place] [address] documented as of this encounter Visit Diagnoses Not on filedocumented in this encounter Care Teams Neon Sign Servicer Relationship Specialty Start Date End Date Mick Flowers MD [address] [place] [address] PCP - General 10/15/14 Mick Flowers MD [address] [place] [address] PCP - General 08/07/13 10/14/14 documented as of this encounter
--- OUTSIDE RECORDS SUMMARY | 2024-06-29 00:14 | XMS_ITS | Encounter Summary ---
Author Organization [facility] Address [address] [place] [address]. [place], [place] [address] [place] [address] Care Team Providers Care Chief Technician Name Role Phone Mick Flowers MD Primary Care Provider [phone] Mick Flowers MD Primary Care Provider [phone] Encounter Details Date Type Department Care Team (Latest Contact Info) Description 09/21/2014 Abstract [facility] Medical Group Social History Tobacco Use [...] Notes * Generic Conversion MD Denise - 09/21/2014 3:41 PM CDT Message Recorded as Task Date: 09/18/2014 08:54 AM, Created By: Carroll Mcduffie Task Name: Medical Complaint Callback Assigned To: [facility] Kristie Regarding Patient: Doc Emery, Status: In Progress Comment: Carroll Mcduffie - 18 Sep 2014 8:54 AM TASK CREATED Caller: Self; Medical Complaint; Patient called asking for a referral to a duplicator punch set up operator. Says he is experiencing elevated blood pressure, feels jittery and strange. Says he is taking BP meds and is staggering them as directed, but it is not working. Mick Flowers - 21 Sep 2014 12:27 PM TASK REASSIGNED: Previously Assigned To Mick Flowers Refer to [facility] Debby Solis - 21 Sep 2014 3:41 PM TASK IN PROGRESS Message: pt notified, referral faxed-nk Signatures Electronically signed by : Debby Solis, ; Sep 21 2014 3:41PM MAKE UP ARTIST (Author) documented in this encounter Plan of Treatment Upcoming Encounters Date Type Department Care Team (Late st Contact Info) Description 09/09/2024 10:00 AM CDT Office Visit [facility] Medical Group Family & Internal Medicine - [address] [address] Mick Flowers MD [address] [place] [address] documented as of this encounter Visit Diagnoses Not on filedocumented in this encounter Care Teams Chief Technician Relationship Specialty Start Date End Date Mick Flowers MD [address] [place] [address] PCP - General 10/15/14 Mick Flowers MD [address] [place] [address] PCP - General 08/07/13 10/14/14 documented as of this encounter
--- OUTSIDE RECORDS SUMMARY | 2024-06-29 00:14 | XMS_ITS | Encounter Summary ---
Author Organization [facility] Address [address] [place] [address]. [place], [place] [address] [place] [address] Care Team Providers Care Gastroenterology Manager Name Role Phone Mick Flowers MD Primary Care Provider [phone] Mick Flowers MD Primary Care Provider [phone] Encounter Details Date Type Department Care Team (Latest Contact Info) Description 09/08/2013 Abstract [facility] Medical Group Social History Tobacco [...] CENTER Medical Group Family & Internal Medicine [address] [place] [address] Mick Flowers MD [address] [place] [address] documented as of this encounter Visit Diagnoses Not on filedocumented in this encounter Care Teams Gastroenterology Manager Relationship Specialty Start Date End Date Mick Flowers MD [address] [place] [address] PCP - General 10/15/14 Mick Flowers MD [address] [place] [address] PCP - General 08/07/13 10/14/14 documented as of this encounter
--- OUTSIDE RECORDS SUMMARY | 2024-06-29 00:14 | XMS_ITS | Encounter Summary ---
Author Organization [facility] Address [address] [place] [address]. [place], [place] [address] [place] [address] Care Team Providers Care Journalism Instructor Name Role Phone Mick Flowers MD Primary Care Provider [phone] Encounter Details Date Type Department Care Team (Late st Contact Info) Description 10/15/2014 Abstract [facility] [place], [place] [id number] Dave Cordero MD [facility]. [address] [place], [place] [id number] Social History Tobacco Use Types Packs/Day Years [...] [facility] Family & Internal Medicine [address] [address] Mick Flowers MD [address] [place] [address] documented as of this encounter Visit Diagnoses Diagnosis Essential hypertension Unspecified essential hypertension documented in this encounter Care Teams Journalism Instructor Relationship Specialty Start Date End Date Mick Flowers MD [address] [place] [address] PCP - General 10/15/14 documented as of this encounter
--- OUTSIDE RECORDS SUMMARY | 2024-06-29 00:14 | XMS_ITS | Encounter Summary ---
Author Organization [facility] Address [address] [place] [address]. [place], [place] [address] [place] [address] Care Team Providers Care Manager Cosmetics Name Role Phone Mick Flowers MD Primary Care Provider [phone] Encounter Details Date Type Department Care Team (Latest Contact Info) Description 12/04/2014 Abstract [facility] [...] [facility] Medical [facility] Family & Internal Medicine [address] [address] Mick Flowers MD [address] [place] [address] documented as of this encounter Visit Diagnoses Not on filedocumented in this encounter Care Teams Manager Cosmetics Relationship Specialty Start Date End Date Mick Flowers MD [address] [place] [address] PCP - General 10/15/14 documented as of this encounter
--- OUTSIDE RECORDS SUMMARY | 2024-06-29 00:14 | XMS_ITS | Encounter Summary ---
Author Organization [facility] Address [address] [place] [address]. [place], [place] [address] [place] [address] Care Team Providers Care Vice President Network Development Name Role Phone Mick Flowers MD Primary Care Provider [phone] Mick Flowers MD Primary Care Provider [phone] Encounter Details Date Type Department Care Team (Latest Contact Info) Description 11/26/2013 Abstract [facility] Mick Flowers MD [address] [place] [address] Social History Tobacco Use Types Packs/Day Years [...] [facility] Family & Internal Medicine [facility] [address] [place] [address] [place] [address] [place] [address] documented as of this encounter Visit Diagnoses Not on filedocumented in this encounter Care Teams Vice President Network Development Relationship Specialty Start Date End Date Mick Flowers MD [address] [place], [place] [address] PCP - General 10/15/14 Mick Flowers MD [address] [facility] [place] [address] PCP - General 08/07/13 10/14/14 documented as of this encounter
--- OUTSIDE RECORDS SUMMARY | 2024-06-29 00:14 | XMS_ITS | Encounter Summary ---
Author Organization [facility] Address [address] [place] [address]. [place], [place] [address] [place] [address] Care Team Providers Care Hris Administrator Name Role Phone Mick Flowers MD Primary Care Provider [phone] Encounter Details Date Type Department Care Team (Late st Contact Info) Description 11/18/2014 [facility] [address] [place] [phone] , Melanie Carroll MD Social History [...] Description 09/09/2024 10:00 AM CDT Office Visit [facility] Medical Group Family & Internal Medicine [address] [place] [address] Mick Flowers MD [address] [place] [address] documented as of this encounter Visit Diagnoses Not on filedocumented in this encounter Care Teams Hris Administrator Relationship Specialty Start Date End Date Mick Flowers MD [address] [place] [address] PCP - General 10/15/14 documented as of this encounter
--- OUTSIDE RECORDS SUMMARY | 2024-06-29 00:14 | XMS_ITS | Encounter Summary ---
Author Organization [facility] Address [address] [place] [address]. [place], [place] [address] [place] [address] Care Team Providers Care Supervisor Kennel Name Role Phone Mick Flowers MD Primary Care Provider [phone] Mick Flowers MD Primary Care Provider [phone] Encounter Details Date Type Department Care Team (Late st Contact Info) Description 10/03/2012 Abstract [facility] Medical Group Family & Internal Medicine [facility] [address] [place] [address] Mick Flowers MD [address] [place] [address] Social History Tobacco Use Types Packs/Day Years [...] Sign Reading Time Taken Comments Blood Pressure 137/85 10/03/2012 9:32 AM CDT Pulse 61 10/03/2012 9:32 AM CDT Temperature - - Respiratory Rate - - Oxygen Saturation - - Inhaled Oxygen Concentration - - Weight 81.2 kg (179 lb) 10/03/2012 9:32 AM CDT Height 180.3 cm (5' 11 ) 10/03/2012 9:32 AM CDT Body Mass Index 24.97 10/03/2012 9:32 AM CDT documented in this encounter Progress Notes * Mick Flowers MD - 10/03/2012 9:00 AM CDT Reason For Visit Reason For Visit: Chronic Recheck Visit Chief Complaint Chief Complaint Free Text: f/u htn, hyperlipidemia, anxiety- hasn't been here for awhile c/o wants you to take over rxing edex instead of going back to urology History of Present Illness HPI Free Text: Has MS but has not had any problems from this. Does not follow with Neuro. Has not had any problems. Hypertension (Follow-Up): The patient presents for follow-up of primary hypertension. The patient states he has been doing well with his blood pressure control since the last visit. He has no comorbid illnesses. He has no significant interval events. Symptoms: The patient is currently asymptomatic. Home monitoring: The patient checks his blood pressure sporadically. Blood pressure control has been good. Medications: The patient is adherent with his medication regimen. He denies medication side effects. Disease Management: The patient is doing well with his blood pressure goals. Hyperlipidemia (Follow-Up): The patient states his hyperlipidemia has been under good control sincethe last visit. Comorbid Illnesses: hypertension. He has no significant interval events. Symptoms: The patient is currently asymptomatic. Associated symptoms include no focal neurologic deficits and no memory loss. Medications: The patient is adherent with his medication regimen. He denies medication side effects. The patient is doing well with his hyperlipidemia goals. The patient's LDL goal is <100 mg/dL. Review of Systems Focused-Male: Constitutional: Normal. ENT: normal. Cardiovascular: Normal. Respiratory: Normal. Gastrointestinal: Normal. Genitourinary: Normal. Integumentary: Normal. Musculoskeletal: Normal. Neurological: Normal. Psychiatric: Normal. Active Problems 1. Anxiety 300.00 2. Benign Essential Hypertension 401.1 3. Hyperlipidemia 272.4 Surgical History 1. History of Bladder Surgery Family History 1. Paternal history of Benign Essential Hypertension 2. Paternal history of Cancer 3. Maternal history of Cancer 4. Family history of Cancer Social History ?? Never A Smoker Allergies 1. No Known Drug Allergies Vitals Vital Signs [Data Includes: Current Encounter] [id number] 09:32AM Heart Rate 61 Respiration 16 Systolic 137 Diastolic 85 BMI Calculated 25.06 BSA Calculated 2.01 Height 5 ft 11 in Weight 179 lb Physical Exam Constitutional General appearance: No acute distress, well appearing and well nourished. Eyes Conjunctiva and lids: No swelling, erythema, or discharge. Pupils and irises: Equal, round and reactive to light. Ears, Nose, Mouth, and Throat External inspection of ears and nose: Normal. Otoscopic examination: Tympanic membrance translucent with normal light reflex. Canals patent [...] No lymphadenopathy. Musculoskeletal Gait and station: Normal. Skin Skin and subcutaneous tissue: Normal without rashes or lesions. Neurologic Cranial nerves: Cranial nerves 2-12 intact. Psychiatric Orientation to person, place and time: Normal. Mood and affect: Normal. Assessment 1. Benign Essential Hypertension 401.1 2. Hyperlipidemia 272.4 3. Anxiety 300.00 Plan 1. ALPRAZolam 0.5 MG Oral Tablet; TAKE 1 TABLET 3 TIMES DAILY NEEDED; Therapy: 73Ryr2644 to (Evaluate:12Nov2012); Last Rx:[id number] Ordered; For: Anxiety (300.00); Rx By: Mick Flowers; Dispense: 10 Days ; #:30 Tablet; Refill: 3; Print Rx; Last Updated By: Adore Quijano 2. Felodipine ER 5 MG Oral Tablet Extended Release 24 Hour; TAKE 1 TABLET ONCE DAILY; Therapy: 05Vus2020 to (Evaluate:28Sep2013); Last Rx:[id number] Ordered; For: Benign Essential Hypertension (401.1); Rx By: Mick Flowers; Dispense: 90 Days ; #:90 Tablet Extended Release 24 Hour; Refill: 3; Transmitted To: [facility]; Last Updated By: Adore Quijano 3. Losartan Potassium 50 MG Oral Tablet; TAKE 1 TABLET DAILY DIRECTED; Therapy: 99Euv4333 to (Evaluate:28Sep2013); Last Rx:[id number] Ordered; For: Benign Essential Hypertension (401.1); Rx By: Mick Flowers; Dispense: 90 Days ; #:90 Tablet; Refill: 3; Transmitted To: [facility]; Last Updated By: Adore Quijano 4. Atorvastatin Calcium 20 MG Oral Tablet; TAKE 1 TABLET DAILY DIRECTED; Therapy: 26Jun2012 to (Evaluate:28Sep2013) Requested for: 20Svx7030; Last Rx:[id number] Ordered; For: Hyperlipidemia (272.4); Rx By: Mick Flowers; Dispense: 90 Days ; #:90 Tablet; Refill: 3; Transmitted To: [facility]; Last Updated By: Adore Quijano 5. Follow-up visit in 1 year Outpatient Follow-up Done: [id number] Ordered; For: Hyperlipidemia (272.4), Benign Essential Hypertension (401.1); Ordered By: Mick Flowers Performed: Due: 13Oct2012; Last Updated By: Jing Macias 6. CBC with Diff Requested for: [id number] Ordered; For: Hyperlipidemia (272.4), Benign Essential Hypertension (401.1); Ordered By: Mick Flowers Perform: Other Lab Due: 13Oct2013 7. CMP (Comprehensive Metabolic Profile) Requested for: [id number] Ordered; For: Hyperlipidemia (272.4), Benign Essential Hypertension (401.1); Ordered By: Mick Flowers Perform: Other Lab Due: 13Oct2013 8. Lipid Profile Requested for: [id number] Ordered; For: Hyperlipidemia (272.4), Benign Essential Hypertension (401.1); Ordered By: Mick Flowers Perform: Other Lab Due: 13Oct2013 9. TSH (Thyroid Stim Hormone) Requested for: [id number] Ordered; For: Hyperlipidemia (272.4), Benign Essential Hypertension (401.1); Ordered By: Mick Flowers Perform: Other Lab Due: 13Oct2013 10. Urinalysis ( UA ) Culture If Ind Requested for: [id number] Ordered; For: Hyperlipidemia (272.4), Benign Essential Hypertension (401.1); Ordered By: Mick Flowers Perform: Other Lab Due: 10Oct2013 11. Edex 20 MCG Intracavernosal Kit; Inject 1ml cavernosal 10-30 min prior to intercourse; Therapy: 82Hwu3731 to (Last Rx:[id number]) Ordered; For: PSH: Bladder Surgery; Rx By: Mick Flowers; Dispense: 0 Days ; #:12 X 1 EA Box; Refill: 3; Print Rx; Last Updated By: Adore Quijano 12. Insulin Syringe 28G X 1/2 0.5 ML Miscellaneous; USE DIRECTED; Therapy: 37Laz6166 to (Last Rx:[id number]) Ordered; For: PSH: Bladder Surgery; Rx By: Mick Flowers; Dispense: 0 Days ; #:1 X 100 EA Box; Refill: 0; Print Rx; Last Updated By: Adore Quijano Signatures Electronically signed by : Mick Flowers M.D.; Oct 03 2012 10:06AM (Author) TH AND SAFETY REPRESENTATIVE documented in this encounter Plan of Treatment Upcoming Encounters Date Type Department Care Team (Late st Contact Info) Description 09/09/2024 10:00 AM CDT Office Visit [facility] Family & Internal Medicine - [address] [address] Mick Flowers MD [address] [place] [address] documented as of this encounter Visit Diagnoses Not on filedocumented in this encounter Care Teams Supervisor Kennel Relationship Specialty Start Date End Date Mick Flowers MD [address] [place] [address] PCP - General 10/15/14 Mick Flowers MD [address] [place] [address] PCP - General 08/07/13 10/14/14 documented as of this encounter
--- OUTSIDE RECORDS SUMMARY | 2024-06-29 00:14 | XMS_ITS | Encounter Summary ---
Author Organization [facility] Address [address] [place] [address]. [place], [place] [address] [place] [address] Care Team Providers Care Clean Room Operator Name Role Phone Mick Flowers MD Primary Care Provider [phone] Mick Flowers MD Primary Care Provider [phone] Encounter Details Date Type Department Care Team (Latest Contact Info) Description 08/04/2013 Abstract [facility] Medical Group Social History Tobacco Use Types [...] Notes * Generic Conversion MD Denise - 08/04/2013 2:19 PM CST Message Recorded as Task Date: 08/04/2013 11:06 AM, Created By: Jing Macias Task Name: Medical Complaint Callback Assigned To: [facility] [place] Team Kristie Regarding Patient: Doc mEery, Status: Active Comment: Jing Macias - 04 Aug 2013 11:06 AM TASK CREATED Caller: Self; Medical Complaint; Pt has been having high BP readings 160's/100 and doesnt' know if meter is accurate. Doesn't reallyknow if feeling any different. Is on Atorvastatin, losartan, felodipine, ampyra 10mg and Alprazalam. Wondering if OV needed or review his meds? Call pt. Mick Flowers - 04 Aug 2013 1:43 PM TASK REASSIGNED: Previously Assigned To Mick Flowers Should have OV Message: pt notified, ov sched for tomorrow am Signatures Electronically signed by : Adore Quijano, ; Aug 04 2013 2:20PM DOCUMENT DESIGN SPECIALIST (Author) MENT DESIGN SPECIALIST documented in this encounter Plan of Treatment Upcoming Encounters Date Type Department Care Team (Late st Contact Info) Description 09/09/2024 10:00 AM CDT Office Visit [facility] Medical Group Family & Internal Medicine [address] [address] Mick Flowers MD [address] [place] [address] documented as of this encounter Visit Diagnoses Not on filedocumented in this encounter Care Teams Clean Room Operator Relationship Specialty Start Date End Date Mick Flowers MD [address] [place] [address] PCP - General 10/15/14 Mick Flowers MD [address] [place] [address] PCP - General 08/07/13 10/14/14 documented as of this encounter
--- OUTSIDE RECORDS SUMMARY | 2024-06-29 00:15 | XMS_ITS | Encounter Summary ---
Author Organization [facility] Address [address] [place] [address]. [place], [place] [address] [place] [address] Care Team Providers Care Supervisor Webbing Name Role Phone Mick Flowers MD Primary Care Provider [phone] Mick Flowers MD Primary Care Provider [phone] Encounter Details Date Type Department Care Team (Late st Contact Info) Description 09/19/[address] [facility] [place] [address] Mick Flowers MD [address] [place] [address] Social History Tobacco Use Types Packs/Day Years [...] Description 09/09/2024 10:00 AM CDT Office Visit [facility] Medical Group Family & Internal Medicine - [address] [phone] [place] [address] [place] [address] documented as of this encounter Visit Diagnoses Diagnosis Essential hypertension Unspecified essential hypertension documented in this encounter Care Teams Supervisor Webbing Relationship Specialty Start Date End Date Mick Flowers MD [address] [place] [address] PCP - General 10/15/14 Mick Flowers MD [address] [place] [address] PCP - General 08/07/13 10/14/14 documented as of this encounter
--- OUTSIDE RECORDS SUMMARY | 2024-06-29 00:15 | XMS_ITS | Encounter Summary ---
Author Organization [facility] Address [address] [place] [address]. [place], [place] [address] [place] [address] Care Team Providers Care Heater Mechanic Name Role Phone Mick Flowers MD Primary Care Provider [phone] Mick Flowers MD Primary Care Provider [phone] Encounter Details Date Type Department Care Team (Latest Contact Info) Description 09/18/2011 Abstract [facility] Medical Group Social History Tobacco [...] Description 09/09/2024 10:00 AM CDT Office Visit [facility] Medical Group Family & Internal Medicine [address] [place] [address] Mick Flowers MD [address] [place] [address] documented as of this encounter Visit Diagnoses Not on filedocumented in this encounter Care Teams Heater Mechanic Relationship Specialty Start Date End Date Mick Flowers MD [address] [place] [address] PCP - General 10/15/14 Mick Flowers MD [address] [place] [address] PCP - General 08/07/13 10/14/14 documented as of this encounter
--- OUTSIDE RECORDS SUMMARY | 2024-06-29 00:26 | XMS_ITS | Encounter Summary ---
Author Organization [facility] Address [address] [place] [address] Phone Care Team Providers Care Electrical Lineman Name Role Phone Mick Flowers MD Primary Care Provider [phone] Encounter Details Date Type Department Care Team (Late st Contact Info) Description 06/03/2024 Telephone [facility] Advanced Medicine [facility]) - [facility] Urology [address] [facility] [address] [facility] 11th [place] [address] [place] [address] Mic Miranda Social History Tobacco Use Types Packs/Day Years Used Date Smoking Tobacco: Never Passive Smoke Exposure: Past Smokeless Tobacco: Never Alcohol Use Standard Drinks/Week Comments Yes 0 (1 standard drink = 0.6 oz pur e alcohol) SOCIAL AUDIT-C Answer Date Recorded Q1: How often do you have a drink containing alc ohol? 2-4 times a month 06/04/2024 Q2: How many drinks containi ng alcohol do you have on a typical day when you are drinking? 1 or 2 06/04/2024 Q3: How often do you have si x or more drinks on one occasion? Never 06/04/2024 Personal Safety Answer Date Recorded Have you ever been in or are you currently in a harmful physical or emotional relationship or is someone making you feel afraid or unsafe? 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 Please call the patient to advise. Patient Provider: Dr. Lopez Medical/Surgical Information: Outcome/Plan: DRY ROOM WORKER documented in this encounter Plan of Treatment Not on file documented as of this encounter Visit Diagnoses Not on filedocumented in this encounter Care Teams Electrical Lineman Relationship Specialty Start Date End Date Mick Flowers MD PCP - General 05/14/17 documented as of this encounter
--- OUTSIDE RECORDS SUMMARY | 2024-06-29 00:26 | XMS_ITS | Encounter Summary ---
Author Organization [facility] Address [address] [place] [address] Phone Care Team Providers Care Hose Operator Name Role Phone Mick Flowers MD Primary Care Provider [phone] Reason for Visit * Reason Onset Date Comments Call Back 03/14/2024 Encounter Details Date Type Department Care Team (Late st Contact Info) Description 03/14/2024 Telephone [facility] Cardiology [address] [facility] Advanced Medicine 8th [place] [address] [place] [address] Georgia Yee MD [address] [facility] [address] [place], [place] [id number] Call Back Social History Tobacco Use Types Packs/Day Years Used Date Smoking Tobacco: Never Smokeless Tobacco: Never Alcohol Use Standard Drinks/Week Comments Yes 0 (1 standard drink = 0.6 oz pur e alcohol) SOCIAL AUDIT-C Answer Date Recorded Q1: How often do you have a drink containing alc ohol? 2-3 times a week 11/28/2023 Q2: How many drinks containi ng alcohol do you have on a typical day when you are drinking? 1 or 2 11/28/2023 Q3: How often do you have si x or more drinks on one occasion? Never 11/28/2023 Personal Safety Answer Date Recorded Have you ever been in or are you currently in a harmful physical or emotional relationship or is someone making you feel afraid or unsafe? 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 * Telephone Encounter - Yeimi Staton - 03/14/2024 1:24 PM CDT Joselito Msg to nurse Pt calling to let you know he is on vacation and will call back later next week when he returns. documented in this encounter Plan of Treatment Not on file documented as of this encounter Visit Diagnoses Not on filedocumented in this encounter Care Teams Hose Operator Relationship Specialty Start Date End Date Mick Flowers MD PCP - General 05/14/17 documented as of this encounter
--- OUTSIDE RECORDS SUMMARY | 2024-06-29 00:26 | XMS_ITS | Encounter Summary ---
Author Organization [facility] Healthcare Address [address] [place] [address] Care Team Providers Care Hvac Sheet Metal Installer Helper Name Role Phone Mick Flowers MD Primary Care Provider [phone] Encounter Details Date Type Department Care Team (Latest Contact Info) Description 11/07/2023 12:30 PM CDT - 11/07/2023 11:59 PM CDT Hospital Encounter [facility] Rad[facility] [address] [place] [address] Discharge Disposition: Discharge to home or self care Social History Tobacco Use Types Packs/Day Years Used Date Smoking Tobacco: Never Smokeless Tobacco: Never Alcohol Use Standard Drinks/Week Comments Yes 0 (1 standard drink = 0.6 oz pur e alcohol) SOCIAL AUDIT-C Answer Date Recorded Q1: How often do you have a drink containing alc ohol? 2-4 times a month 06/06/2023 Q2: How many drinks containi ng alcohol do you have on a typical day when you are drinking? 1 or 2 06/06/2023 Q3: How often do you have si x or more drinks on one occasion? Never 06/06/2023 Personal Safety Answer Date Recorded Have you ever been in or are you currently in a harmful physical or emotional relationship or is someone making you feel afraid or unsafe? 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 on file Not on file documented as of this encounter Medications at Time of Discharge ALPRAZolam (XANAX) 0.25 mg tabletIndication s:sleep Take 3 tablets (0.75 mg total) by mouth nightly as needed for sleep 08/26/2022 alprostadiL (Edex) 40 mcg injection 20 mcg by intracavity route as needed for erectile dysfunction 10 kit 6 02/23/2023 atorvastatin (LIPITOR) 40 mg tabletIndication s:hyperlipidemia Take 1 tablet (40 mg total) by mouth nightly 04/05/2022 BD Insulin Syringe Ultra-Fine 0.5 mL 30 gauge x 1/2 syringe 08/30/2022 famotidine (PEPCID) 20 mg tabletIndication s:Dyspepsia,Hear tburn Take 1 tablet (20 mg total) by mouth 2 (two) times a day as needed for indigestion or heartburn 10/06/2021 felodipine (PLENDIL) 5 mg 24 hr tabletIndication s:hypertension Take 1 tablet (5 mg total) by mouth 2 (two) times a day 07/19/2007 hydroCHLOROthiaz martha (HYDRODIURIL) 25 mg tabletIndication s:hypertension Take 1 tablet (25 mg total) by mouth every morning multivitamin tabletIndication s:Vitamin Deficiency Prevention Take 1 tablet by mouth daily before breakfast valsartan (DIOVAN) 320 mg tabletIndication s:hypertension Take 1 tablet (320 mg total) by mouth nightly 07/19/2022 amitriptyline (ELAVIL) 25 mg tabletIndication s:abdominal pain Take 2 tablets (50 mg total) by mouth nightly 60 tablet 2 05/16/2022 4 POTASSIUM CHLORIDE ER 20 mEq CR tabletIndication s:supplement Take 1 tablet (20 mEq total) by mouth every morning 5 04/23/2018 4 documented as of this encounter Discharge Disposition Disposition Code Departure Means Destination Discharge to home or self care documented in this encounter Plan of Treatment Not on file documented as of this encounter Procedures Procedure Name Priority Date/Time Associated Diagnosis Comments US TRANSFER OF OUTSIDE FILMS Routine 11/07/2023 12:30 PM CDT documented in this encounter Results * US Outside Reference (11/07/2023 12:30 PM CDT) Impressions [facility] - 11/07/2023 12:30 PM CDT These images are for Reference purposes only and have not been reviewed by [facility] Radiology. ??There will be no report generated by a [facility] Radiologist. Narrative [facility] - 11/07/2023 12:30 PM CDT EXAMINATION: ??Images For Reference Purposes Only us Georgia Yee MD IMG US PROCEDURES Final Resul t [facility] documented in this encounter Visit Diagnoses Not on filedocumented in this encounter Care Teams Hvac Sheet Metal Installer Helper Relationship Specialty Start Date End Date Mick Flowers MD PCP - General 05/14/17 documented as of this encounter
--- OUTSIDE RECORDS SUMMARY | 2024-06-29 00:26 | XMS_ITS | Clinical Summary ---
Author Organization [facility] Address [address] [place] [address] Care Team Providers Care Traction Power Engineer Name Role Phone Mick Flowers MD Primary Care Provider [phone] Allergies No known active allergies Medications felodipine (PLENDIL) 5 mg 24 hr tabletIndicati ons:hypertensi on Take 1 tablet (5 mg total) by mouth 2 (two) times a day 07/19/19 08 Active hydroCHLOROthi azide (HYDRODIURIL) 25 mg tabletIndicati ons:hypertensi on Take 1 tablet (25 mg total) by mouth every morning Active famotidine (PEPCID) 20 mg tabletIndicati ons:Dyspepsia, Heartburn Take 1 tablet (20 mg total) by mouth 2 (two) times a day as needed for indigestion or heartburn 10/07/19 22 Active atorvastatin (LIPITOR) 40 mg tabletIndicati ons:hyperlipid emia Take 1 tablet (40 mg total) by mouth nightly 04/05/20 22 Active valsartan (DIOVAN) 320 mg tabletIndicati ons:hypertensi on Take 1 tablet (320 mg total) by mouth nightly 07/19/19 23 Active BD Insulin Syringe Ultra-Fine 0.5 mL 30 gauge x /2 syringe 08/31/19 23 Active ALPRAZolam (XANAX) 0.25 mg tabletIndicati ons:sleep Take 3 tablets (0.75 mg total) by mouth nightly as needed for sleep 08/27/19 23 Active alprostadiL (Edex) 40 mcg injection 20 mcg by intracavity route as needed for erectile dysfunction 10 kit 6 02/24/20 23 Active Additional Information Patient taking differently:20 mcg intracavity As needed, erectile dysfunction,Indications: Erectile Dysfunction, Informant: Self, Reported on 06/04/2024 multivitamin tabletIndicati ons:Vitamin Deficiency Prevention Take 1 tablet by mouth daily before breakfast Active doxazosin (CARDURA) 2 mg tablet Take 1 tablet (2 mg total) by mouth nightly 90 tablet 3 06/12/20 24 Active doxazosin (CARDURA) 2 mg tablet Take 1 tablet (2 mg total) by mouth nightly 30 tablet 11 05/26/20 24 024 Discontinued Active Problems Problem Noted Date Diagnosed Date Resistant hypertension 03/05/2024 Renovascular hypertension 03/05/2024 Medication management 11/11/2022 Urge urinary incontinence 02/13/2022 Overview (02/13/2022): Added automatically from request for surgery [id number] Abnormal MRI 02/16/2021 Vitamin D deficiency 02/16/2021 Bowel incontinence 12/14/2020 Cardiovascular risk factor 12/14/2020 Change in bowel habit 10/04/2020 Overview (12/11/2023): Added automatically from request for surgery [id number] Diarrhea 10/04/2020 Overview (12/11/2023): Added automatically from request for surgery [id number] Gastroesophageal reflux disease 10/04/2020 Overview (12/11/2023): Added automatically from request for surgery [id number] Lower abdominal pain 10/04/2020 Overview (12/11/2023): Added automatically from request for surgery [id number] Thoracic spondylosis 08/15/2019 OAB (overactive bladder) 07/31/2018 Overview (07/31/2018): Added automatically from request for surgery [id number] Neurogenic bladder 02/13/2018 Overview (12/09/2023): Overview: Added automatically from request for surgery [id number] >>OVERVIEW FOR NEUROGENIC BLADDER DISORDER WRITTEN ON 07/01/2018 10:03 AM BY JACOBO DELEON MA Added automatically from request for surgery [id number] Edema 01/14/2018 Erectile dysfunction 09/08/2016 Malignant tumor of colon (CMS/HCC) 09/07/2016 Carpal tunnel syndrome of right wrist 06/12/2016 Elbow pain 06/12/2016 Primary insomnia 08/24/2015 Eczema 08/05/2015 Penile discharge 03/11/2014 Urinary tract infection 02/18/2014 Urethral stricture 01/26/2014 Abnormality of gait and mobility 12/16/2012 High risk medication use 12/16/2012 Hypercholesterolemia 12/16/2012 Multiple sclerosis 12/16/2012 Anxiety 10/03/2012 Benign essential hypertension 10/03/2012 Hyperlipidemia 06/26/2012 Encounters Date Type Department Care Team Description 06/04/2024 12:10 PM RECORD LABEL INTERN Anesthesia Event [facility] Operating Room [address] [address] [id number] Cole Edmondson MD Thomas, Karen D., JEFFRY 06/04/2024 11:30 AM RECORD LABEL INTERN - 06/04/2024 12:45 PM RECORD LABEL INTERN Surgery [facility] Operating Room 11670 [address] [id number] Marquis Lopez MD INJECTION BOTOX 300 UNITS 06/04/2024 9:29 AM RECORD LABEL INTERN - 06/04/2024 1:44 PM RECORD LABEL INTERN Hospital Encounter [facility] Operating Room 63307 [address] [id number] Marquis Lopez MD Neurogenic bladder (Primary Dx); Urge urinary incontinence Discharge Disposition: Discharge to home or self care 06/03/2024 Telephone [facility] ([facility]) - [facility] Urology [address] [facility] 11th [place] [address] [place] [address] Mic Miranda 04/09/2024 Telephone [facility] Cardiology [facility] Advanced Medicine [address]th [place] [address] [place] [address] Georgia Yee MD BP log 04/04/2024 Orders Only [address] [facility] [address] [place] [address] [place] [address] Georgia Yee MD 04/02/[address] [place] [address] [place] [address] Georgia Yee MD Labwork f/u ; Test Results (Renal US) from Last 3 Months Immunizations Name Administration Dates Next Due COVID-19 mRNA ([employer]) 0.3 m L (30 mcg) vaccine (12 years and up) 03/12/2023 Influenza, Quadrivalent, Emily l Culture-based MDCK, Preservative Free, Antibiotic Free, Intramuscular 04/10/2022,03/26/2020 Influenza, Quadrivalent, Spl it, Intramuscular 04/02/2019 Influenza, Quadrivalent, Spl it, Preservative Free, Intramuscular 04/03/2018,04/02/2018,03/26/2016,03/31 Influenza, Split 05/30/2005,06/01/2004 Influenza, Trivalent, Cell Culture-based MDCK, Preservative Free, Antibiotic Free, Intramuscular 03/26/2020 Influenza, Trivalent, IM (MDV) 04/04/2021,2016,04/18/2012 Influenza, Trivalent, Preser vative Free, Intramuscular 03/25/2014 Influenza, Unspecified 03/12/2023,2017,06/01/2017,04/16 Influenza, Whole 04/09/2003,04/16/2002, 9 Oscar SARS-CoV-2 Monovalent Vaccination (12+ Yrs) PURPLE 09/27/2020,09/06/2020 Tdap 08/29/2022 ZOSTER LIVE 07/12/2017,07/11/2017 ZOSTER Recombinant 10/31/2022,08/31/2022 Surgical History Surgery Date Site/Laterality Comments CYSTOSCOPY 06/25/2022 - 06/24/2023 with botox injection; receives every 6 months FACET BLOCK LUMBAR SACRAL 1 LEVEL LEFT 09/12/2019 Left SHOULDER ARTHROSCOPY unknown Left COLONOSCOPY 11/08/2020 FACET BLOCK LUMBAR SACRAL 1 LEVEL LEFT 05/04/2020 Left FACET BLOCK LUMBAR SACRAL 1 LEVEL LEFT 11/10/2021 Bilateral FACET BLOCK LUMBAR SACRAL 1 LEVEL LEFT 07/04/2022 Bilateral FL FLUORO GUIDED LUMBAR PUNCTURE 12/12/2022 Right US ABDOMEN COMPLETE W LIVER DOPPLER (C) 10/30/2023 Right US ABDOMEN COMPLETE W LIVER DOPPLER (C) 02/13/2024 Right ESOPHAGOGASTRODUODENOSCOPY 11/08/2020 Medical History Medical History Date Comments Multiple sclerosis (HCC) Multipl e Sclerosis Hypertension Hypertension Hyperlipidemia Covid-19 positive test Neurogenic bladder Gastroesophageal reflux disease 10/04/2020 Family History Medical History Relation Name Comments Alcohol abuse Father Cancer Father Hypertension Father Cancer Mother Melanoma Mother Family history of malignant melanoma - (Added by TW Conv) Hypertension Other 2 Family history of Hypertension; Anesthesia problems Neg Hx Malig Hypertension Neg Hx Malig Hyperthermia Neg Hx Pseudochol deficiency Neg Hx Relation Name Status Comments Father Mother Other 1 Other 2 Social History Tobacco Use Types Packs/Day Years Used Date Smoking Tobacco: Never Passive Smoke Exposure: Past Smokeless Tobacco: Never Tobacco Cessation:Counseling Given: Not [...] on file Legal Sex Male 3:12 AM RECORD LABEL INTERN Gender Identity Not on file Sexual Orientation Not on file 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 on file Not on file Obstetrics History Last Filed Vital Signs Vital Sign Reading Time Taken Comments Blood Pressure 140/91 06/04/2024 1:15 PM RECORD LABEL INTERN Pulse 81 06/04/2024 1:15 PM RECORD LABEL INTERN Temperature 36.2 ??C (97.2 ??F) 06/04/2024 1 2:46 PM RECORD LABEL INTERN Respiratory Rate 16 06/04/2024 1:15 PM RECORD LABEL INTERN Oxygen Saturation 98% 06/04/2024 1:15 PM RECORD LABEL INTERN Inhaled Oxygen Concentration - - Weight 80.6 kg (177 lb 12.8 oz) 06/04/2024 9:34 AM RECORD LABEL INTERN Height 177.8 cm (5' 10 ) 06/04/2024 9:34 AM RECORD LABEL INTERN Body Mass Index 25.51 06/04/2024 9:34 AM RECORD LABEL INTERN Plan of Treatment Health Maintenance Due Date Last Done Comments Colon Cancer Screening-Colonoscopy 1964 Depression Screening 1964 Hepatitis C Screening 1964 Prostate Cancer Screening-PSA 1964 Hepatitis B Screening 1982 Regular Well Visit/Exam 18-64 1982 Covid-19 Vaccine ( season) 2024 03/12/2023, 08/31/2022, 01/17/2022, Additional history exists Influenza Vaccine (#1) 2024 , 04/10/2022, 04/04/2021, Additional history exists DTaP/Tdap/Td Vaccine (2 - Td or Tdap) 08/29/2032 08/29/2022 Zoster Vaccine Completed 10/31/2022, 030 02/2023, 07/12/2017, Additional history exists Pneumococcal vaccine <65 Aged Out No longer eligible based on patient's age to complete this topic Procedures Procedure Name Priority Date/Time Associated Diagnosis Comments MO AN PROCEDURE PLACEHOLDER Routine 06/04/2024 12:33 PM RECORD LABEL INTERN MO AN ELECTIVE SUPRAGLOTTIC AIRWAY Routine 06/04/2024 12:33 PM RECORD LABEL INTERN CYSTOSCOPY 06/04/2024 12:10 PM RECORD LABEL INTERN Neurogenic bladder OAB (overactive bladder) Urge urinary incontinence Special Needs 200 UNITS OF BOTOX TO BE MIXED WITH 20 CC NORMAL SALINE IN OR; CHERELLE NEEDLE FOR INJECTION INJECTION BOTOX 06/04/2024 12:10 PM RECORD LABEL INTERN Neurogenic bladder OAB (overactive bladder) Urge urinary incontinence Special Needs 200 UNITS OF BOTOX TO BE MIXED WITH 20 CC NORMAL SALINE IN OR; CHERELLE NEEDLE FOR INJECTION POC ISTAT Routine 06/04/2024 9:56 AM RECORD LABEL INTERN URINE CULTURE Routine 05/20/2024 11:37 AM RECORD LABEL INTERN Urge urinary incontinence BASIC METABOLIC PANEL Routine 04/03/2024 11:54 AM CDT High risk medication use Benign essential hypertension from Last 3 Months Results * MO AN ELECTIVE SUPRAGLOTTIC AIRWAY, MO AN PROCEDURE PLACEHOLDER (06/04/2024 12:33 PM RECORD LABEL INTERN) Narrative Jagjit Goldman CRNA - 06/04/2024 12:33 PM RECORD LABEL INTERN Jagjit Goldman CRNA ? 06/04/2024 12:33 PM Airway Patient location: OR Urgency: elective Indications for airway management: anesthesia Difficult airway: no Staff: Supervising provider: Cole Edmondson MD Placed by: ROOF CEMENT AND PAINT MAKER HELPER: Jagjit Goldman CRNA Airway prep: Preoxygenated: yes Patient position: sniffing Mask difficulty assessment: 0 - not attempted Spontaneous ventilation during airway: absent Sedation level during airway: GA Final airway details: Final airway type: supraglottic airway Final supraglottic airway: IGel SGA size: 4 Number of attempts: 1 Ventilation between attempts: none us Cole Edmondson MD ANESTHESIA ORDERABLES Fin al Result * POC ISTAT (06/04/2024 9:56 AM RECORD LABEL INTERN) [facility] K POC 4.1 3.3 - 4.9 mmol/L Comment: Interpretive Data This method is not able to assess for hemolysis, which may falsely increase potassium concentrations. If further testing is needed to evaluate this result, consider in-laboratory plasma potassium. Current Interpretive Data was last revised on 2022. POC Device Number [id number] [facility] POC Performer [id number] [place] [facility] Blood 06/04/2024 9:56 AM RECORD LABEL INTERN 06/04/2024 9:56 AM RECORD LABEL INTERN us Marquis Lopez MD LAB BLOOD ORDERABLES Final Res ult Performing Organization Address [facility] [address]/[facility] de Phone Number [facility] [address] [facility] Department [place] [address] * Urine culture Urine, clean voided (05/20/2024 11:37 AM RECORD LABEL INTERN) Urine culture [facility] Comment: ??CULTURE, URINE, ROUTINE ?Micro Number: ?[id number] ??Test Status: ? Final ??Specimen Source: ?? Urine, catheter ??Specimen Quality: ??Adequate ??Result: ?No Growth Urine, clean voided 05/20/2024 11:37 AM RECORD LABEL INTERN 05/20/2024 11:38 AM RECORD LABEL INTERN Marquis Lopez MD LAB MICROBIOLOGY - GENERAL ORD ERABLES Final Result Performing Organization Address [facility] [address]/[facility] de Phone Number [facility] [address] [place] [address] * (ABNORMAL) Basic metabolic panel (04/03/2024 11:54 AM CDT) Glucose 109(H) 65 - 99 mg/dL [facility] Comment: ? Fasting reference interval For someone without known diabetes, a glucose value between 100 and 125 mg/dL is consistent with prediabetes and should be confirmed with a follow-up test. BUN 19 7 - 25 mg/dL [facility] Creatinine 0.92 0.70 - 1.30 mg/dL [facility] eGFR 96 > OR = 60 mL/min/1.7 3m2 [facility] BUN/creat ratio SEE NOTE: 6 - 22 (calc) [facility] Comment: ?? Not Reported: BUN and Creatinine are within ?? reference range. ? Sodium 131(L) 135 - 146 mmol/L [facility] Potassium, pl 4.3 3.5 - 5.3 mmol/L [facility] Chloride 98 98 - 110 mmol/L [facility] CO2 22 20 - 32 mmol/L [facility] Calcium 9.9 8.6 - 10.3 mg/dL [facility] Blood 04/03/2024 11:5 4 AM CDT 04/03/2024 11:55 AM CDT us Georgia Yee MD LAB BLOOD ORDERABLES Final Re sult [facility] [address] [address] from Last 3 Months Insurance [facility] CLAIMS ANTHEM ACCESS CHOICE Member Subscriber Plan / Payer ( fective 2018-Present) Name:Doc Emery Relation to Subscriber:Self Name:Doc Emery Payer ID:[id number] (NAIC) Type:[facility] [facility] Address: [address] [place] [id number] [employer]ER[employer] GENERIC FOR LIFE MEDICARE MEDICARE FOR LIFE Care Teams Traction Power Engineer Relationship Specialty Start Date End Date Mick Flowers MD PCP - General 05/14/17
--- OUTSIDE RECORDS SUMMARY | 2024-06-29 00:26 | XMS_ITS | Encounter Summary ---
Author Organization [facility] Healthcare Address [address] [place] [address] Care Team Providers Care [employer] Name Role Phone Mick Flowers MD Primary Care Provider [phone] Reason for Visit * Auth/Cert (Routine) Specialty Diagnoses / Procedures Referred By Contac t Referred To Contact Diagnoses Neurogenic bladder OAB (overactive bladder) Urge urinary incontinence Neurogenic bladder [N31.9] Procedures VA CYSTOURETHROSCOPY INJ CHEMODENERVATION BLADDER VA CYSTOURETHROSCOPY INJECTION BOTOX 300 UNITS CYSTOSCOPY Referral ID Status Reason Start Date Expiration Date Visits Re quested Visits Authorized [id number] 1 1 Encounter Details Date Type Department Care Team (Late st Contact Info) Description 06/04/2024 12:10 PM WOODWIND REEDS CUTTER Anesthesia Event [facility] Operating Room [address] [place] [address] Cole Edmondson MD [address] [facility] [address] [place] [address] Vi Marcano, HEAD OF DRAMA [address] [facility] [id number] [place] [address] Anesthesia Record Procedure Summary Procedure Name Responsible Anesthesiologist Anesthesia Start Time Anesthesia Stop Time INJECTION BOTOX 300 UNITS (Bladder) Cole Edmondson MD 06/04/24 1210 06/04/24 1250 Events Date Time Event Comment 06/04/2024 0934 In Preop 1020 1210 In Room 1210 An Start 1210 An Start Data 1211 AN Equip Check 1218 An Induction The patient was reevaluated immediately before moderate or deep sedation use and before anesthesia induction. 1220 An LMA 1223 Anesthesia Ready 1227 Proc Start 1237 Proc Fin 1242 Airway Removed 1245 an stop data 1245 Out of Room 1250 Handoff to RN I completed my handoff to the receiving nurse during which we: 1. Patient identified 2. Responsible provider identified 3. Pertinent medical history reviewed 4. Procedure type and surgical course discussed 5. Intraoperative anesthetic management and any significant issues discussed 6. Expectations and concerns for postop period discussed 7. Questions solicited from receiving nurse 8. Patient disposition at the time of handoff: PACU 1250 An Stop Meds Name Total midazolam 2 mg/2 mL 2 mg Lidocaine IV 1% 50 mg propofol 200 mg ondansetron PF 4 mg dexamethasone 4 mg/mL 8 mg ceFAZolin (ANCEF) 1 gram/10 mL in steril e water (premix) 2,000 mg 2,000 mg famotidine (PEPCID) injection 20 mg 20 m g glycopyrrolate 400 mcg sodium chloride 0.9% infusion 1,000 mL * Agents Name O2% N2O O2 N2O Air Sevoflurane Inspired Sevoflurane * Blood No blood administrations on file. Lines, Drains, and Airways Type Details Placement Removal Wound 06/04/24; Non-incision; Penis 06/04/24 0000 by Rocío Rivera RN Peripheral IV Placement Date: 06/04/24; Placement Time: 0956; Catheter Size: 20 G; Orientation: Right; Location: Forearm; Site Prep: Alcohol; Insertion Attempts: 1; Patient Tolerance: Tolerated well; Removal Date: 06/04/24; Removal Time: 1335; Removal Reason: Discharge 06/04/24 0956 by Shraddha Whittaker RN 06/04/24 1335 by Michelle Awad RN Supraglottic Airway Placement Date: 06/04/24; Placement Time: 1233 (created via procedure documentation); Mask Ventilation: 0; Size: 4; Insertion Attempts: 1; Removal Date: 06/04/24; Removal Time: 1242 06/04/24 1233 by Jagjit Goldman CRNA 06/04/24 1242 by Jagjit Goldman CRNA documented in this encounter Social History Tobacco [...] on file Legal Sex Male 3:12 AM WOODWIND REEDS CUTTER Gender Identity Not on file Sexual Orientation Not on file 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 on file Not on file documented as of this encounter OR Notes * Anesthesia Postprocedure Evaluation - Cole Edmondson MD - 06/04/2024 2:00 PM CST Patient: Doc Emery Procedure Summary Date: 06/04/24 Room / Location: [facility] OPERATING ROOM 02 / [facility]PERATING ROOM Anesthesia Start: 1210 Anesthesia Stop: 1250 Procedures: INJECTION BOTOX 300 UNITS (Bladder) CYSTOSCOPY Diagnosis: Neurogenic bladder OAB (overactive bladder) Urge urinary incontinence (Neurogenic bladder [N31.9]) Surgeons: Marquis Lopez MD Responsible Provider: Cole Edmondson MD Anesthesia Type: general ASA Status: 2 Anesthesia Type: general Last vitals BP 140/91 Pulse 81 Temp 36.2 ??C (97.2 ??F) (Temporal) Resp 16 SpO2 98% Anesthesia Post Evaluation Patient location during evaluation: PACU Patient participation: complete - patient participated Level of consciousness: fully awake Pain management: adequate Airway patency: adequate Evidence of recall: no Cardiovascular status: acceptable Respiratory status: acceptable Hydration status: acceptable Pt is: normothermic Nausea/Vomiting status: none No notable events documented. WIND REEDS CUTTER * Anesthesia Procedure Notes - Jagjit Goldman CRNA - 06/04/2024 12:33 PM CSTAssociated Order(s): Airway Airway Patient location: OR Urgency: elective Indications for airway management: anesthesia Difficult airway: no Staff: Supervising provider: Cole Edmondson MD Placed by: STREET DEPARTMENT DISPATCHER: Jagjit Goldman CRNA Airway prep: Preoxygenated: yes Patient position: sniffing Mask difficulty assessment: 0 - not attempted Spontaneous ventilation during airway: absent Sedation level during airway: GA Final airway details: Final airway type: supraglottic airway Final supraglottic airway: IGel SGA size: 4 Number of attempts: 1 Ventilation between attempts: none WIND REEDS CUTTER * Anesthesia Preprocedure Evaluation - Cole Edmondson MD - 05/28/2024 1:53 PM CST Images from the original note were not included. [facility] Planning Preoperative Evaluation Record Evaluation type/location: TPAP from [facility] Planned procedure site: [facility] OR Date: 05/28/24 Anesthesia Evaluation NOTE: This note represents a preoperative evaluation initiated via telephone interview. NO PHYSICALEXAM was performed at the time of initial assessment. A physical exam may be added to this note anddocumented below. Doc Emery is a 58 y.o. male INJECTION BOTOX 300 UNITS (Bladder) CYSTOSCOPY Pre-Op Diagnosis Codes: * Neurogenic bladder [N31.9] * OAB (overactive bladder) [N32.81] * Urge urinary incontinence [N39.41] HISTORY HPI Doc Emery is a 58 y.o. male who is being evaluated prior to undergoing injection botox and cystoscopy for neurogenic bladder/OAB/urge urinary incontinence. PMH includes multiple sclerosis. HTN, HLD, GERD Past Medical History Information obtained from: patient and chart. Information obtained during: Telephone Visit NOTE: This note represents a preoperative evaluation initiated via virtual (video or telephone) interview. NO PHYSICAL EXAM was performed at the time of initial assessment. A physical exam may be added to this note and documented below. Neurological + Psychiatric history - anxiety + Neuromuscular disease (age 24 diagnosis. RLE weakness, visual changes, neurogenic bladder) - multiple sclerosis. Pertinent negatives: CVA/stroke; TIA; dementia/mild cognitive impairment and carotid artery stent Comments: [facility] Sclerosis clinic Cardiovascular + Hypertension (States BP has been bettr controlled since seeing Dr. Georgia Yee) Hypertension year diagnosed: 1984. Typical systolic BP - 120 Typical diastolic BP - 80 + Hyperlipidemia (on statin) Pertinent negatives: CAD ; MD ; CABG ; valvular heart disease; atrial fibrillation; pacemaker/ICD; DVT/PE; negative for CHF; drug-eluting stent(s) and bare metal stent(s) Comments: Follows with Dr. Ho for HTN Respiratory Pertinent negatives: COPD; sleep apnea (ROSALINDA); pulmonary hypertension; no O2 use outside the hospital and non-smoker Hepatic / Heme Pertinent negatives: liver disease and history of anemia Gastrointestinal + GERD - PRN medication use only. Symptoms weekly but < daily. Renal / Pertinent negatives: renal disease and dialysis Comments: Neurogenic bladder-intermittent catheterization 2-4 times daily prn OAB Endocrine / Other + Infectious disease (Hx of UTIs, COVID-19 positive test 05/28/2020) - UTI. + Eye disorder (2/2 Multiple sclerosis) Pertinent negatives: diabetes mellitus; thyroid disease; cancer history; rheumatological disease; transplanted organ and pancreatitis Functional Capacity Functional capacity: 4-6 METs Comments: Lift weights 3x a week cardio 2x a week I.e. stairs for 1/2 hour- 1 ho ur five days per week Denies SOB/CP climbing 2 flights of steps Review of Systems + muscle weakness (RLE, chronic) + vision loss (wears corrective lenses) Pertinent negatives: productive cough; wheezing; SOB; recent cold/flu; fever; chest pain; palpitations; orthopnea; PND; previous transfusion; melena/hematochezia; easy bruising; bleeding problems; syncope; dizziness; numbness/tingling; nausea; dysphagia; diarrhea; abdominal pain and no unexpected weight change Comments: Denies symptoms of UTI PAT Summary and Plans Cardiac risk classification of planned procedure: low cardiac risk. Preoperative assessment status: complete. Additional comments: Doc Emery is a 58 y.o. male who is being evaluated prior to undergoing a low cardiac risk surgery. Revised Cardiac Risk Index factors are (none) for a total RCRI of 0 out of6. Functional capacity is 4-6 METs. Obstructive sleep apnea (ROSALINDA) screening status is STOP-BANG incomplete at 3-4 suggesting MODERATE risk for ROSALINDA. Neck circumference pending. May need ROSALINDA order set initiated if Co2 >27. This assessment was performed via telephone. Therefore the physical exam has been deferred to the day of surgery team. The patient was provided with preoperative instructions for their medications. Patient instructions were provided by telephone and electronically sent via [employer]. Patient verbalized understanding of instructions. Blood bank needs for day of procedure: No type and screen needed Pending labs/tests include: None TPAP complete Preoperative evaluation performed by Vi Marcano NP on 05/28/24 at 1:54 PM . Patient Active Problem List Diagnosis Date Noted Resistant hypertension 03/05/2024 Renovascular hypertension 03/05/2024 Medication management 11/11/2022 Urge urinary incontinence 02/13/2022 Abnormal MRI 02/16/2021 Vitamin D deficiency 02/16/2021 Bowel incontinence 12/14/2020 Cardiovascular risk factor 12/14/2020 Change in bowel habit 10/04/2020 Diarrhea 10/04/2020 Gastroesophageal reflux disease 10/04/2020 Lower abdominal pain 10/04/2020 Thoracic spondylosis 08/15/2019 OAB (overactive bladder) 07/31/2018 Neurogenic bladder 02/13/2018 Edema 01/14/2018 Erectile dysfunction 09/08/2016 Malignant tumor of colon (CMS/HCC) (HCC) 09/07/2016 Carpal tunnel syndrome of right wrist 06/12/2016 Elbow pain 06/12/2016 Primary insomnia 08/24/2015 Eczema 08/05/2015 Penile discharge 03/11/2014 Urinary tract infection 02/18/2014 Urethral stricture 01/26/2014 Abnormality of gait and mobility 12/16/2012 High risk medication use 12/16/2012 Hypercholesterolemia 12/16/2012 Multiple sclerosis (HCC) 12/16/2012 Anxiety 10/03/2012 Benign essential hypertension 10/03/2012 Hyperlipidemia 06/26/2012 Past Medical History: Diagnosis Date COVID-19 positive test 05/28/2020 Gastroesophageal reflux disease 10/04/2020 Hyperlipidemia Hypertension Hypertension Multiple sclerosis (HCC) Multiple Sclerosis Neurogenic bladder Past Surgical History: Procedure Laterality Date COLONOSCOPY 11/08/2020 CYSTOSCOPY 2022 with botox injection; receives every 6 months ESOPHAGOGASTRODUODENOSCOPY 11/08/2020 FACET BLOCK LUMBAR SACRAL 1 LEVEL LEFT Left 09/12/2019 FACET BLOCK LUMBAR SACRAL 1 LEVEL LEFT Left 05/04/2020 FACET BLOCK LUMBAR SACRAL 1 LEVEL LEFT Bilateral 11/10/2021 FACET BLOCK LUMBAR SACRAL 1 LEVEL LEFT Bilateral 07/04/2022 FL FLUORO GUIDED LUMBAR PUNCTURE Right 12/12/2022 SHOULDER ARTHROSCOPY Left unknown US ABDOMEN COMPLETE W LIVER DOPPLER (C) Right 10/30/2023 US ABDOMEN COMPLETE W LIVER DOPPLER (C) Right 02/13/2024 No Known Allergies Med List Status: Nurse Complete Set By: Abbi Ortiz RN at 05/14/2024 1:21 PM Taking? Last Dose Start Date End Date Provider ALPRAZolam (XANAX) 0.25 mg tablet 05/13/2024 08/26/22 -- Bettie Batres MD alprostadiL (Edex) 40 mcg injection -- 02/23/23 -- Micah Roberts NP 20 mcg by intracavity route as needed for erectile dysfunction Patient taking differently: 20 mcg by intracavity route as needed for erectile dysfunction atorvastatin (LIPITOR) 40 mg tablet 05/13/2024 04/05/22 -- Bettie Batres MD BD Insulin Syringe Ultra-Fine 0.5 mL 30 gauge x 1/2 syringe -- 08/30/22 -- Bettie Batres MD doxazosin (CARDURA) 2 mg tablet -- 05/26/24 -- Georgia Yee MD Take 1 tablet (2 mg total) by mouth nightly Notes: Dose increased. famotidine (PEPCID) 20 mg tablet Past Week 10/06/21 -- Bettie Batres MD felodipine (PLENDIL) 5 mg 24 hr tablet 05/14/2024 07/19/07 -- Bettie Batres MD hydroCHLOROthiazide (HYDRODIURIL) 25 mg tablet 05/14/2024 -- -- Bettie Batres MD multivitamin tablet 05/14/2024 -- -- Bettie Batres MD valsartan (DIOVAN) 320 mg tablet 05/13/2024 07/19/22 -- Provider, MD Bettie No current facility-administered medications for this encounter. Current Outpatient Medications: ALPRAZolam (XANAX) 0.25 mg tablet alprostadiL (Edex) 40 mcg injection atorvastatin (LIPITOR) 40 mg tablet famotidine (PEPCID) 20 mg tablet felodipine (PLENDIL) 5 mg 24 hr tablet hydroCHLOROthiazide (HYDRODIURIL) 25 mg tablet multivitamin tablet valsartan (DIOVAN) 320 mg tablet BD Insulin Syringe Ultra-Fine 0.5 mL 30 gauge x 1/2 syringe doxazosin (CARDURA) 2 mg tablet Social History Tobacco Use Smoking Status Never Passive exposure: Past Smokeless Tobacco Never Alcohol Use: Not At Risk (05/14/2024) AUDIT-C Frequency of Alcohol Consumption: 2-3 times a week Average Number of Drinks: 1 or 2 Frequency of Binge Drinking: Never Substance and Sexual Activity Drug Use Yes Frequency: 5.0 times per week Types: Medical marijuana Comment: sundar ROBLERO Family History Problem Relation Age of Onset Melanoma Mother Family history of malignant melanoma - (Added by TW Conv) Cancer Mother Alcohol abuse Father Cancer Father Hypertension Father Hypertension Other Family history of Hypertension; Anesthesia problems Neg Hx Malig Hypertension Neg Hx Pseudochol deficiency Neg Hx Malig Hyperthermia Neg Hx There were no vitals filed for this visit. Relevant diagnostics: ECG(s): 03-05-24 Sinus bradycardia rate 59 bpm Echocardiogram(s): N/A Stress test(s): N/A Cardiac catheterization(s): N/A PFT(s): N/A Vascular studies: 08/2023 Carotids The right internal carotid shows 1-49% stenosis. Right vertebral artery is antegrade. No evidence of ulceration. The left internal carotid shows 1-49% stenosis. Left vertebral artery is antegrade. No evidence of ulceration. Other: N/A PT: No results found for requested labs within last 30 days. INR: No results found for requested labs within last 30 days. APTT: No results found for requested labs within last 30 days. Hgb A1C: No results found for requested labs within last 30 days. CBC RBC: No results found for requested labs within last 30 days. RDW: No results found for requested labs within last 30 days. MCHC: No results found for requested labs within last 30 days. MCH: No results found for requested labs within last 30 days. MCV: No results found for requested labs within last 30 days. Hct: No results found for requested labs within last 30 days. Hgb: No results found for requested labs within last 30 days. WBC: No results found for requested labs within last 30 days. MPV: No results found for requested labs within last 30 days. Platelets: No results found for requested labs within last 30 days. RDW CV: No results found for requested labs within last 30 days. RDW Sd: No results found for requested labs within last 30 days. BMP Glucose: No results found for requested labs within last 30 days. Calcium: No results found for requested labs within last 30 days. Sodium: No results found for requested labs within last 30 days. Potassium: No results found for requested labs within last 30 days. CO2: No results found for requested labs within last 30 days. Chloride: No results found for requested labs within last 30 days. BUN: No results found for requested labs within last 30 days. Creatinine: No results found for requested labs within last 30 days. Romain index score: 100 DOS Physical Exam Medical history, medications, and allergies reviewed. Attestation: This PAT evaluation Airway Exam: Mallampati: II Cardiovascular Exam: Rate: regular Rhythm: regular Negative for Murmur Pulmonary Exam: LCTA, bilat Anesthesia Plan ASA 2 My patient is approved for the Anesthesia Controlled Medication protocol when under care of a STREET DEPARTMENT DISPATCHER Planned anesthesia: General Induction: Induction: intravenous. Postoperative Plan: Postoperative administration opioids intended. No postoperative mechanical ventilation intended. Patient's planned disposition post procedure is Outpatient. Informed Consent: Discussed plan with STREET DEPARTMENT DISPATCHER. Anesthesia plan and risks discussed with patient and spouse. Consent and Attending signature: I and/or my designee have discussed the anesthesia plan, benefits, possible alternatives, parental presence at time of induction (if indicated), and clinically relevant risks that may include dental injury, unintentional awareness, and/or other complications. The patient and/or parent/legal guardian understand, and agree to proceed. All questions answered. WIND REEDS CUTTER WIND REEDS CUTTER documented in this encounter Plan of Treatment Not on file documented as of this encounter Procedures Procedure Name Priority Date/Time Associated Diagnosis Comments VA AN PROCEDURE PLACEHOLDER Routine 06/04/2024 12:33 PM WOODWIND REEDS CUTTER VA AN ELECTIVE SUPRAGLOTTIC AIRWAY Routine 06/04/2024 12:33 PM WOODWIND REEDS CUTTER documented in this encounter Results * VA AN ELECTIVE SUPRAGLOTTIC AIRWAY, VA AN PROCEDURE PLACEHOLDER (06/04/2024 12:33 PM WOODWIND REEDS CUTTER) Narrative Jagjit Goldman CRNA - 06/04/2024 12:33 PM WOODWIND REEDS CUTTER Jagjit Goldman CRNA ? 06/04/2024 12:33 PM Airway Patient location: OR Urgency: elective Indications for airway management: anesthesia Difficult airway: no Staff: Supervising provider: Cole Edmondson MD Placed by: STREET DEPARTMENT DISPATCHER: Jagjit Goldman CRNA Airway prep: Preoxygenated: yes Patient position: sniffing Mask difficulty assessment: 0 - not attempted Spontaneous ventilation during airway: absent Sedation level during airway: GA Final airway details: Final airway type: supraglottic airway Final supraglottic airway: IGel SGA size: 4 Number of attempts: 1 Ventilation between attempts: none Cole Edmondson MD ANESTHESIA ORDERABLES Fin al Result documented in this encounter Visit Diagnoses Not on filedocumented in this encounter Administered Medications Inactive Administered Medications - up to 3 most recent administrations Medication Order MAR Action Action Date Dose Rate Site ceFAZolin (ANCEF) 1 gram/10 mL in sterile water (premix) 2,000 mg 2,000 mg, intravenous, at 400 mL/hr, Administer over 3 Minutes, Once, On Sun06/04/24 at 1015, For 1 dose, Pre-Op, Administer within 60 minutes of incision., Indications: Prophylaxis, SurgicalIndications:Prophylaxis, Surgical Given 06/04/2024 12:21 PM WOODWIND REEDS CUTTER 2,000 mg dexAMETHasone (DECADRON) 4 mg/mL injection intravenous, Administer over 2 Minutes, As needed, Starting on Sun06/04/24 at 1223, Anesthesia Intra-op Given 06/04/2024 12:23 PM WOODWIND REEDS CUTTER 8 mg famotidine (PEPCID) injection 20 mg 20 mg, intravenous, Administer over 2 Minutes, Once as needed, heartburn, Medication to be administered by the anesthesia staff (Anesthesiologist or STREET DEPARTMENT DISPATCHER), Starting on Sun06/04/24 at 0934, For 1 dose, Pre-Op, Indications: Heartburn, Heartburn Prevention, gastroesophageal reflux disease, RefluxIndications:Heartburn,Heart burn Prevention,gastroesophageal reflux disease,Reflux Given 06/04/2024 12:10 PM WOODWIND REEDS CUTTER 20 mg glycopyrrolate (ROBINUL) injection intravenous, Administer over 1 Minutes, As needed, Starting on Sun06/04/24 at 1231, Anesthesia Intra-op Given 06/04/2024 12:34 PM WOODWIND REEDS CUTTER 200 mcg Given 06/04/2024 12:31 PM WOODWIND REEDS CUTTER 200 mcg lidocaine (PF) (XYLOCAINE) 10 mg/mL (1 %) preservative free injection intravenous, As needed, Starting on Sun06/04/24 at 1218, Anesthesia Intra-op Given 06/04/2024 12:18 PM WOODWIND REEDS CUTTER 50 mg midazolam (VERSED) 1 mg/mL injection intravenous, As needed, Starting on Sun06/04/24 at 1210, Anesthesia Intra-op Given 06/04/2024 12:10 PM WOODWIND REEDS CUTTER 2 mg ondansetron (ZOFRAN) injection intravenous, Administer over 2 Minutes, As needed, Starting on Sun06/04/24 at 1249, Anesthesia Intra-op Given 06/04/2024 12:49 PM WOODWIND REEDS CUTTER 4 mg propofoL (DIPRIVAN) 10 mg/mL IV intravenous, As needed, Starting on Sun06/04/24 at 1218, Anesthesia Intra-op Given 06/04/2024 12:18 PM WOODWIND REEDS CUTTER 200 m g sodium chloride 0.9% infusion 30 mL/hr, intravenous, Continuous, Starting on Sun06/04/24 at 1015, Pre-Op, Use 500 ml bag for End Stage Renal Disease patients. Restarted 06/04/2024 12:10 PM WOODWIND REEDS CUTTER New Bag 06/04/2024 9:56 AM WOODWIND REEDS CUTTER 30 mL/hr 30 mL/hr documented in this encounter Care Teams [employer] Relationship Specialty Start Date End Date Mick Flowers MD PCP - General 05/14/17 documented as of this encounter
--- OUTSIDE RECORDS SUMMARY | 2024-06-29 00:26 | XMS_ITS | Encounter Summary ---
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 [address] [facility]. [facility] [address], [address] If you have any financial questions please call [phone] (ONLY SHARE THIS IF PATIENT INQUIRES) If you need to cancel or reschedule your appointment please call [phone] Ask them the covid screening questions Have you had any respiratory symptoms including cough, shortness of breath/trouble breathing, fever, sudden loss of taste or smell, sore throat, or body aches? Yes [] No [x] Are you currently being tested for Covid-19? Yes [] No[x] Have you had any contact with a person known to be positive for Covid-19 or a person under investigation? Yes [] No [x] If the patient answers yes to any of the Covid -19 screening questions they need to be rescheduled for at least 14 days later. Inform patient that only 1 guest/visitor will be allowed into the clinic. If possible, come by themselves. Procedure Patients Are you on any blood thinners? Yes [] No [x] Are you currently on any antibiotics? Yes [] No [x] Have you had a fever in the last 7 days? Yes [] No [x] Are you diabetic? Yes [] No [x] In the last 2 weeks have you received any vaccinations including the COVID booster? Yes [] No [x] In the next 2 weeks do you plan on receiving any vaccinations including the COVID booster? Yes [] No [x] If the answer is yes to either question 5 or 6 then please connect the patient with the banquet coordinator at [phone]. If a direct number is requested by the patient please give them [phone]. documented in this encounter Plan of Treatment Not on file documented as of this encounter Visit Diagnoses Not on filedocumented in this encounter Care Teams Vp Treasurer Relationship Specialty Start Date End Date Mick Flowers MD PCP - General 05/14/17 documented as of this encounter
--- OUTSIDE RECORDS SUMMARY | 2024-06-29 00:26 | XMS_ITS | Referral Summary ---
Author Organization [facility] Address [address] [place] [address] Care Team Providers Care Receiving Checker Name Role Phone Mick Flowers MD Primary Care Provider [phone] Encounters Date Type Department Care Team Description 06/04/2024 11:30 AM SLD TEACHER - 06/04/2024 12:45 PM SLD TEACHER Surgery [facility] Operating Room [address] [address] [place] [address] Marquis Lopez MD INJECTION BOTOX 300 UNITS 06/04/2024 12:10 PM SLD TEACHER Anesthesia Event [facility] Operating Room [address] [place] [address] Cole Edmondson MD Thomas, Karen D., LIVER TRIMMER 06/04/2024 9:29 AM SLD TEACHER - 06/04/2024 1:44 PM SLD TEACHER Hospital Encounter [facility] Operating Room [address] [address] [place] [address] Marquis Lopez MD Neurogenic bladder (Primary Dx); Urge urinary incontinence Discharge Disposition: Discharge to home or self care 06/03/2024 Telephone [facility] Urology [address] 11th [place] [address] [place] [address] Mic Miranda 04/09/2024 Telephone [facility] Cardiology [address] [place] [address] [place] [address] Georgia Yee MD BP log 04/04/2024 Orders Only [facility] Cardiology [address]th [place] [address] [place] [phone] Georgia Yee MD 04/02/2024 Telephone [facility] Cardiology [address] [facility] [address] [place] [address] [place] [address] Georgia Yee MD Labwork f/u ; Test Results (Renal US) from Last 3 Months Allergies No known active allergies Medications felodipine [...] 0.5 mL 30 gauge x 1/2 syringe 08/31/19 23 Active ALPRAZolam (XANAX) 0.25 [...] (02/13/2022): Added automatically from request for surgery [id number] Abnormal MRI 02/16/2021 Vitamin D deficiency 02/16/2021 Bowel incontinence 12/14/2020 Cardiovascular risk factor 12/14/2020 Change in bowel habit 10/04/2020 Overview (12/11/2023): Added automatically from request for surgery [id number] Diarrhea 10/04/2020 Overview (12/11/2023): Added automatically from request for surgery [id number] Gastroesophageal reflux disease 10/04/2020 Overview (12/11/2023): Added automatically from request for surgery [id number] Lower abdominal pain 10/04/2020 Overview (12/11/2023): Added automatically from request for surgery [id number] Thoracic spondylosis 08/15/2019 OAB (overactive bladder) 07/31/2018 Overview (07/31/2018): Added automatically from request for surgery [id number] Neurogenic bladder 02/13/2018 Overview (12/09/2023): Overview: Added automatically from request for surgery [id number] >>OVERVIEW FOR NEUROGENIC BLADDER DISORDER WRITTEN ON 07/01/2018 10:03 AM BY JACOBO DELEON MA Added automatically from request for surgery [id number] Edema 01/14/2018 Erectile dysfunction 09/08/2016 Malignant tumor of colon (CMS/HCC) 09/07/2016 Carpal tunnel syndrome of right wrist 06/12/2016 Elbow pain 06/12/2016 Primary insomnia 08/24/2015 Eczema 08/05/2015 Penile discharge 03/11/2014 Urinary tract infection 02/18/2014 Urethral stricture 01/26/2014 Abnormality of gait and mobility 12/16/2012 High risk medication use 12/16/2012 Hypercholesterolemia 12/16/2012 Multiple sclerosis 12/16/2012 Anxiety 10/03/2012 Benign essential hypertension 10/03/2012 Hyperlipidemia 06/26/2012 Immunizations Name Administration Dates Next Due COVID-19 mRNA (Diabeto) 0.3 m L (30 mcg) vaccine (12 [...] Influenza, Unspecified 03/12/2023,2017,06/01/2017,04/16 Influenza, Whole 04/09/2003,04/16/2002, 9 Springr SARS-CoV-2 Monovalent Vaccination (12+ Yrs) PURPLE 09/27/2020,09/06/2020 Tdap 08/29/2022 ZOSTER LIVE 07/12/2017,07/11/2017 ZOSTER Recombinant 10/31/2022,08/31/2022 Social History Tobacco Use Types Packs/Day Years [...] on file Legal Sex Male 3:12 AM SLD TEACHER Gender Identity Not on file Sexual Orientation Not on file 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 on file Not on file Last Filed Vital Signs Vital Sign Reading Time Taken Comments Blood Pressure 140/91 06/04/2024 1:15 PM SLD TEACHER Pulse 81 06/04/2024 1:15 PM SLD TEACHER Temperature 36.2 ??C (97.2 ??F) 06/04/2024 1 2:46 PM SLD TEACHER Respiratory Rate 16 06/04/2024 1:15 PM SLD TEACHER Oxygen Saturation 98% 06/04/2024 1:15 PM SLD TEACHER Inhaled Oxygen Concentration - - Weight 80.6 kg (177 lb 12.8 oz) 06/04/2024 9:34 AM SLD TEACHER Height 177.8 cm (5' 10 ) 06/04/2024 9:34 AM SLD TEACHER Body Mass Index 25.51 06/04/2024 9:34 AM SLD TEACHER Plan of Treatment Not on file Procedures Procedure Name Priority Date/Time Associated Diagnosis Comments ID AN PROCEDURE PLACEHOLDER Routine 06/04/2024 12:33 PM SLD TEACHER ID AN ELECTIVE SUPRAGLOTTIC AIRWAY Routine 06/04/2024 12:33 PM SLD TEACHER CYSTOSCOPY 06/04/2024 12:10 PM SLD TEACHER Neurogenic bladder OAB (overactive bladder) Urge urinary incontinence Special Needs 200 UNITS OF BOTOX TO BE MIXED WITH 20 CC NORMAL SALINE IN OR; CHERELLE NEEDLE FOR INJECTION INJECTION BOTOX 06/04/2024 12:10 PM SLD TEACHER Neurogenic bladder OAB (overactive bladder) Urge urinary incontinence Special Needs 200 UNITS OF BOTOX TO BE MIXED WITH 20 CC NORMAL SALINE IN OR; CHERELLE NEEDLE FOR INJECTION POC ISTAT Routine 06/04/2024 9:56 AM SLD TEACHER URINE CULTURE Routine 05/20/2024 11:37 AM SLD TEACHER Urge urinary incontinence BASIC METABOLIC PANEL Routine 04/03/2024 11:54 AM CDT High risk medication use Benign essential hypertension from Last 3 Months Results * ID AN ELECTIVE SUPRAGLOTTIC AIRWAY, ID AN PROCEDURE PLACEHOLDER (06/04/2024 12:33 PM SLD TEACHER) Narrative Jagjit Goldman CRNA - 06/04/2024 12:33 PM SLD TEACHER Jagjit Goldman CRNA ? 06/04/2024 12:33 PM Airway Patient location: OR Urgency: elective Indications for airway management: anesthesia Difficult airway: no Staff: Supervising provider: Cole Edmondson MD Placed by: COLD TYPE ARTIST: Jagjit Goldman CRNA Airway prep: Preoxygenated: yes Patient position: sniffing Mask difficulty assessment: 0 - not attempted Spontaneous ventilation during airway: absent Sedation level during airway: GA Final airway details: Final airway type: supraglottic airway Final supraglottic airway: IGel SGA size: 4 Number of attempts: 1 Ventilation between attempts: none Cole Edmondson MD ANESTHESIA ORDERABLES [facility] al Result * POC ISTAT (06/04/2024 9:56 AM SLD TEACHER) [facility] K POC 4.1 3.3 - 4.9 mmol/L Comment: Interpretive Data This method is not able to assess for hemolysis, which may falsely increase potassium concentrations. If further testing is needed to evaluate this result, consider in-laboratory plasma potassium. Current Interpretive Data was last revised on 2022. POC Device Number [id number] [facility] POC Performer [id number] [facility] Blood 06/04/2024 9:56 AM SLD TEACHER 06/04/2024 9:56 AM SLD TEACHER Marquis Lopez MD LAB BLOOD ORDERABLES Final Res ult Performing Organization Address [facility] Co de Phone Number [facility] [address] [facility] [address] * Urine culture Urine, clean voided (05/20/2024 11:37 AM SLD TEACHER) [facility] Comment: ??CULTURE, URINE, ROUTINE ?Micro Number: ?[id number] ??Test Status: ? Final ??Specimen Source: ?? Urine, catheter ??Specimen Quality: ??Adequate ??Result: ?No Growth Urine, clean voided 05/20/2024 11:37 AM SLD TEACHER 05/20/2024 11:38 AM SLD TEACHER Marquis Lopez MD LAB MICROBIOLOGY - GENERAL ORD ERABLES Final Result Performing Organization Address [facility] de Phone Number [facility] [address] [place] [address] * (ABNORMAL) Basic metabolic panel (04/03/2024 11:54 [...] BLOOD ORDERABLES Final Re sult [facility] [id number] [phone] from Last 3 Months Insurance [facility] CLAIM[facility] ANTHEM ACCESS CHOICE COMMERCIAL GENERIC [place] MEDICARE MEDICARE FOR LIFE Care Teams Receiving Checker Relationship Specialty Start Date End Date Mick Flowers MD PCP - General 05/14/17
--- OUTSIDE RECORDS SUMMARY | 2024-06-29 00:26 | XMS_ITS | Encounter Summary ---
Author Organization [facility] Address [address] [place] [address] Phone Care Team Providers Care Film And Video Editor Name Role Phone Mick Flowers MD Primary Care Provider [phone] Reason for Visit * Reason Onset Date Comments BP log 04/09/2024 Encounter Details Date Type Department Care Team (Late st Contact Info) Description 04/09/2024 Telephone [facility] Cardiology [address] 8th [place] [address] [place] [address] Georgia Yee MD [address] [facility] [address] [place], [place] [id number] BP log Social History Tobacco Use Types Packs/Day Years [...] on file Legal 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 Yee spoke with pt. * Telephone Encounter - Georgia Yee MD - 04/18/2024 8:13 AM CDT Message sent to patient requesting phone conversation to discuss his questions and next steps. * Telephone Encounter - Lillie Winters RMA - 04/09/2024 10:22 AM CDT Spoke with patient. See 04/02/24 telephone encounter and pt message. Patient sent BP readings and then was told to stop spironolactone on 04/04/24. BP readings since stopping spironolactone: 04/04/24: AM: 143/94; PM: 146/100 04/05/24: AM: 145/101 04/06/24: AM: 138/91; PM: 136/84 04/07/24: AM: 140/100; PM: 144/90 04/08/24: PM: 136/87 04/09/24: AM: 137/99 Patient would like recs sent via [employer] instead of phone call. Patient would like to know his risk level of stroke with the hypertension? Patient would like to know the likely simmons of his vessels repairing themselves after some many years of having hypertension. * Telephone Encounter - Lenka Dsouza RN - 04/09/2024 9:44 AM CDT ----- Message from Nurse Lenka Valdes sent at 03/19/2024 10:22 AM CDT ----- BP readings. Started on 25 mg Spironolactone on 03/19/24 documented in this encounter Plan of Treatment Not on file documented as of this encounter Visit Diagnoses Not on filedocumented in this encounter Care Teams Film And Video Editor Relationship Specialty Start Date End Date Mick Flowers MD PCP - General 05/14/17 documented as of this encounter
--- OUTSIDE RECORDS SUMMARY | 2024-06-29 00:26 | XMS_ITS | Encounter Summary ---
Author Organization [facility] Address [address] [place] [address] Phone Care Team Providers Care Executive Advisor Name Role Phone Mick Flowers MD Primary Care Provider [phone] Encounter Details Date Type Department Care Team (Late st Contact Info) Description 03/05/2024 Orders Only [facility] Urology [address] [place] [address] Marquis Lopez MD 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 Final ??Specimen Source: ?? Urine, catheter ??Specimen Quality: ??Adequate ??Result: ?No Growth Urine, clean voided 05/20/2024 11:37 AM ART SPECIALIST 05/20/2024 11:38 AM ART SPECIALIST us Marquis Lopez MD LAB MICROBIOLOGY - GENERAL ORD ERABLES Final Result [facility] [address] [place] [address] documented in this encounter Visit Diagnoses Diagnosis Urge urinary incontinence- Primary Urge incontinence documented in this encounter Care Teams Executive Advisor Relationship Specialty Start Date End Date Mick Flowers MD PCP - General 05/14/17 documented as of this encounter
--- OUTSIDE RECORDS SUMMARY | 2024-06-29 00:26 | XMS_ITS ---
Author Organization [facility] Address [address] [place] [address] Care Team Providers Care Multi Mission Helicopter Aircrewman Name Role Phone Mick Flowers MD Primary Care Provider [phone] Active Problems Problem Noted Date Diagnosed Date Resistant hypertension 03/05/2024 Renovascular hypertension 03/05/2024 Medication management 11/11/2022 Urge urinary incontinence 02/13/2022 Overview (02/13/2022): Added automatically from request for surgery [id number] Abnormal MRI 02/16/2021 Vitamin D deficiency 02/16/2021 Bowel incontinence 12/14/2020 Cardiovascular risk factor 12/14/2020 Change in bowel habit 10/04/2020 Overview (12/11/2023): Added automatically from request for surgery [id number] Diarrhea 10/04/2020 Overview (12/11/2023): Added automatically from request for surgery [id number] Gastroesophageal reflux disease 10/04/2020 Overview (12/11/2023): Added automatically from request for surgery [id number] Lower abdominal pain 10/04/2020 Overview (12/11/2023): Added automatically from request for surgery [id number] Thoracic spondylosis 08/15/2019 OAB (overactive bladder) 07/31/2018 Overview (07/31/2018): Added automatically from request for surgery [id number] Neurogenic bladder 02/13/2018 Overview (12/09/2023): Overview: Added automatically from request for surgery [id number] >>OVERVIEW FOR NEUROGENIC BLADDER DISORDER WRITTEN ON 07/01/2018 10:03 AM BY JACOBO DELEON MA Added automatically from request for surgery [id number] Edema 01/14/2018 Erectile dysfunction 09/08/2016 Malignant tumor of colon (CMS/HCC) 09/07/2016 Carpal tunnel syndrome of right wrist 06/12/2016 Elbow pain 06/12/2016 Primary insomnia 08/24/2015 Eczema 08/05/2015 Penile discharge 03/11/2014 Urinary tract infection 02/18/2014 Urethral stricture 01/26/2014 Abnormality of gait and mobility 12/16/2012 High risk medication use 12/16/2012 Hypercholesterolemia 12/16/2012 Multiple sclerosis 12/16/2012 Anxiety 10/03/2012 Benign essential hypertension 10/03/2012 Hyperlipidemia 06/26/2012 Current Oncology Plans No current plan information found. Past Plans No past plan information found. Radiation Treatments * No radiation treatments are documented for this patient in [facility]. Treatments may have been administered in another system. Lifetime Dose Tracking * Chemical Lifetime Dose Automatic Entry Manual Entr y Fluoro Time 2.2 minutes 2.2 minutes 0 minutes Air kerma at the reference point (Ka,r) 10.18 mGy 1 0.18 mGy 0 mGy
--- OUTSIDE RECORDS SUMMARY | 2024-06-29 00:26 | XMS_ITS | Encounter Summary ---
Author Organization [facility] Address [address] [place] [address] Phone Care Team Providers Care Magnetic Tape Winder Name Role Phone Mick Flowers MD Primary Care Provider [phone] Encounter Details Date Type Department Care Team (Late st Contact Info) Description 03/13/2024 Telephone [facility] Cardiology [address] [facility] [facility] [address] 8th [place] [address] [place] [address] Georgia Yee MD [address] [facility] [facility] [address] [place] [address] Social History Tobacco Use Types Packs/Day Years [...] on file Legal 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 Lab orders in [facility] and medication was sent to [email or web address]. * Telephone Encounter - Vi Blanco - 03/14/2024 2:27 PM CDT Images from the original note were not included. Yeimi Staton 03/14/24 1:25 PM Note Joselito Msg to nurse Pt calling to let you know he is on vacation and will call back later next week when he returns. -Noted.-ks * Telephone Encounter - Lenka Dsouza RN - 03/13/2024 1:45 PM CDT Images from the original note were not included. Georgia Yee MD P [facility] Georgia Yee Clinical Pool Normal metanephrine levels. Although aldosterone level is at the upper limit of normal, the aldosterone to renin ratio is 2.5 which is not suggestive of primary hyperaldosteronism. Recommendations: Start spironolactone 25 mg, 1 tablet daily. Stop potassium supplement. Check BMP in 10-14 days after starting new med. Monitor BP twice daily and send readings in 2-3 weeks. Maintain hydration. Once readings and doses stabilize, will combine single tablets into combinations to decrease pill count. My Chart message was sent to the patient. I also called him and LMOR of his test results and told please call to discuss medication changes Dr. Yee wants him to make. documented in this encounter Plan of Treatment Not on file documented as of this encounter Visit Diagnoses Not on filedocumented in this encounter Care Teams Magnetic Tape Winder Relationship Specialty Start Date End Date Mick Flowers MD PCP - General 05/14/17 documented as of this encounter
--- OUTSIDE RECORDS SUMMARY | 2024-06-29 00:26 | XMS_ITS | Encounter Summary ---
Author Organization [facility] Address [address] [place] [address] Phone Care Team Providers Care Correctional Program Officer Name Role Phone Mick Flowers MD Primary Care Provider [phone] Reason for Referral * Diagnostic Imaging (Routine) - Closed Specialty Diagnoses / Procedures Referred By Christy elizabeth Referred To Contact Diagnoses Resistant hypertension Renovascular hypertension [place] [address] [place] [address] Phone: tel: fax: [address] [address] Referral ID Status Reason Start Date Expiration Date Visits Re quested Visits Authorized [id number] Closed 03/05/2024 04/04/2025 1 1 Reason for Visit * Consultation (Routine) - Authorized Specialty Diagnoses / Procedures Referred By Christy elizabeth Referred To Contact Cardiology Diagnoses Benign essential hypertension Mick Flowers MD [address] [place] [address] Phone: tel: fax: [facility] (All Locations) Referral ID Status Reason Start Date Expiration Date Visits Requested Visits Authorized [id number] Authorized Specialty Services Required 03/03/2024 04/02/2025 12 12 Encounter Details Date Type Department Care Team (Late st Contact Info) Description 03/05/2024 11:30 AM CDT Office Visit [facility] Cardiology [facility]ly [facility] [address]th [place] [address] [place] [address] Georgia Yee MD 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 on file Not on file documented as of this encounter Last Filed Vital Signs Vital Sign Reading Time Taken Comments Blood Pressure 142/87 03/05/2024 11:32 AM CDT Pulse 65 03/05/2024 11:32 AM CDT Temperature - - Respiratory Rate - - Oxygen Saturation 99% 03/05/2024 11:32 AM CDT Inhaled Oxygen Concentration - - Weight 78.6 kg (173 lb 3.2 oz) 03/05/2024 11:32 AM CDT Height 177.8 cm (5' 10 ) 03/05/2024 11:32 AM CDT Body Mass Index 24.85 03/05/2024 11:32 AM CDT documented in this encounter Patient Instructions * Patient Instructions* Georgia Yee MD - 03/05/2024 11:30 AM CDT Continue current medications for now Watch your sodium intake Stay active as you are doing with regular physical activity Schedule the ultrasound of your kidneys. Let us know if you have not heard anything by next week. We will contact you with your test results and any medication changes. Monitor your blood pressure at home. Your target BP is <130/80. Follow-up in 6 months. documented in this encounter Progress Notes * Georgia Yee MD - 03/05/2024 11:30 AM CDT Hypertension Clinic New Patient Visit Patient Name: Doc Emery : 1965 [place]: 03/05/2024 HISTORY OF PRESENT ILLNESS: 58M hx multiple sclerosis, HTN, HLD, GERD, who presents for management of HTN. Endorses compliance with valsartan 320mg, HCTZ 25mg daily, felodipine 5mg BID. Has been on this regimen for years. States that he has had HTN since he was 24 years old. BP at home is usually around 140s/90s. Endorses swollen ankles when standing for long periods of times, improved overnight. Exercises 1 hour per day, with cardio 40 minutes 3x weekly. Has been exercising more since he went on disability due to multiple sclerosis. BP has improved slightly since exercising more. Is not surehow long he will be able to keep up exercise as his multiple sclerosis progresses. PAST MEDICAL HISTORY: Active Ambulatory Problems Diagnosis Date Noted Abnormality of gait and mobility 12/16/2012 High risk medication use 12/16/2012 Hypercholesterolemia 12/16/2012 Primary insomnia 08/24/2015 Multiple sclerosis (HCC) 12/16/2012 Penile discharge 03/11/2014 Urethral stricture 01/26/2014 Urinary tract infection 02/18/2014 OAB (overactive bladder) 07/31/2018 Bowel incontinence 12/14/2020 Cardiovascular risk factor 12/14/2020 Abnormal MRI 02/16/2021 Vitamin D deficiency 02/16/2021 Anxiety 10/03/2012 Erectile dysfunction 09/08/2016 Neurogenic bladder 02/13/2018 Urge urinary incontinence 02/13/2022 Medication management 11/11/2022 Benign essential hypertension 10/03/2012 Carpal tunnel syndrome of right wrist 06/12/2016 Change in bowel habit 10/04/2020 Eczema 08/05/2015 Diarrhea 10/04/2020 Edema 01/14/2018 Gastroesophageal reflux disease 10/04/2020 Elbow pain 06/12/2016 Lower abdominal pain 10/04/2020 Malignant tumor of colon (CMS/HCC) (HCC) 09/07/2016 Thoracic spondylosis 08/15/2019 Hyperlipidemia 06/26/2012 Resolved Ambulatory Problems Diagnosis Date Noted No Resolved Ambulatory Problems Past Medical History: Diagnosis Date COVID-19 Hypertension PAST SURGICAL HISTORY: Past Surgical History: Procedure Laterality Date COLONOSCOPY 2020 CYSTOSCOPY 2022 with botox injection; receives every [...] COMPLETE W LIVER DOPPLER (C) Right 02/13/2024 Current Outpatient Medications Medication Sig Dispense Refill ALPRAZOLAM ORAL Take 0.75 mg by mouth nightly as needed for sleep alprostadiL (Edex) 40 mcg injection 20 mcg by intracavity route as needed for erectile dysfunction (Patient taking differently: 20 mcg by intracavity route as needed for erectile dysfunction) 10 kit 6 atorvastatin (LIPITOR) 40 mg tablet Take 1 tablet (40 mg total) by mouth nightly BD Insulin Syringe Ultra-Fine 0.5 mL 30 gauge x 1/2 syringe famotidine (PEPCID) 20 mg tablet Take 1 tablet (20 mg total) by mouth 2 (two) times a day as neededfor indigestion or heartburn felodipine (PLENDIL) 5 mg 24 hr tablet Take 1 tablet (5 mg total) by mouth 2 (two) times a day hydroCHLOROthiazide (HYDRODIURIL) 25 mg tablet Take 1 tablet (25 mg total) by mouth every morning multivitamin tablet Take 1 tablet by mouth daily before breakfast POTASSIUM CHLORIDE ER 20 mEq CR tablet Take 1 tablet (20 mEq total) by mouth every morning 5 valsartan (DIOVAN) 320 mg tablet Take 1 tablet (320 mg total) by mouth nightly No current facility-administered medications for this visit. No Known Allergies FAMILY HISTORY: Family History Problem Relation Age of Onset Melanoma Mother Family history of malignant melanoma - (Added by TW Conv) Cancer Mother Alcohol abuse Father Cancer Father Hypertension Father Hypertension Other Family history of Hypertension; Anesthesia problems Neg Hx Malig Hypertension Neg Hx Pseudochol deficiency Neg Hx Malig Hyperthermia Neg Hx SOCIAL HISTORY: Social History Tobacco Use Smoking status: Never Smokeless tobacco: Never Substance and Sexual Activity Drug use: Yes Frequency: 4.0 times per week Types: Medical marijuana Sexual activity: Defer Alcohol Use: Not At Risk (11/28/2023) AUDIT-C Frequency of Alcohol Consumption: 2-3 times a week Average Number of Drinks: 1 or 2 Frequency of Binge Drinking: Never REVIEW OF SYSTEMS: Negative as per HPI Objective Vitals: 03/05/24 1131 03/05/24 1132 BP: 148/93 142/87 BP Location: Left arm Right arm Patient Position: Sitting Sitting Pulse: 70 65 SpO2: 99% 99% Weight: 78.6 kg (173 lb 3.2 oz) 78.6 kg (173 lb 3.2 oz) Height: 177.8 cm (5' 10 ) 177.8 cm (5' 10 ) PHYSICAL EXAMINATION: GENERAL: NAD HEENT: Normocephalic, atraumatic. Pupils round and reactive to light. Extraocular movements intact.Fundi not visualized. No scleral icterus. Oral cavity, oropharynx not visualized. NECK: supple, no carotid bruits, no JVD LUNGS: Clear to auscultation bilaterally without wheezes or rales. HEART: Regular rate and rhythm. Normal S1, S2. No murmurs, gallops or rubs. ABDOMEN: Soft, nontender. No palpable masses. No audible bruits. EXTREMITIES: Without edema. Pulses 2+ and symmetrical. NEUROLOGICAL: Alert and oriented x3. Grossly nonfocal. LABORATORY/RADIOLOGY/DIAGNOSTIC REVIEW: Carotid Artery Duplex 08/2023 ++++++++++++++++++++++++++++++++++++ SUMMARY: ++++++++++++++++++++++++++++++++++++ Lovely ICA Stenosis Criteria: [...] Recommend follow up PRN, at physician discretion.. ASSESSMENT AND PLAN: Uncontrolled Resistance Hypertension - on 3 medications including potassium supplementation - will pursue evaluation for secondary HTN - aldosterone/renin, metanephrines, UA, renal Dopplers to assess for renovascular HTN - pending results, consider starting spironolatone - continue valsartan 320mg daily, HCTZ 25mg daily, felodipine 5mg BID - encourage low salt diet, exercise, BP log - follow-up in 6 months Antonio Nance MD Engineering Test Mechanic I have seen and examined the patient with the resident/fellow on 03/05/2024 and agree with the assessment and plan as indicated above. Georgia Yee MD credit associate Clinical Hypertension Specialist 03/05/2024 documented in this encounter Plan of Treatment Not on file documented as of this encounter Procedures Procedure Name Priority Date/Time Associated Diagnosis Comments ECG 12-LEAD Routine 03/05/2024 11:53 AM CDT Resistant hypertension documented in this encounter Results * US Renal Doppler (03/26/2024 2:28 PM CDT) Anatomical Region Laterality Modality Vascular N/A Ultrasound 03/26/2024 Narrative 04/01/2024 10:48 AM CDT [employer] Job ID: [id number] Am[employer]ion Document ID: [id number] Dictated date/time: [id number] RENAL ARTERY DOPPLER REASON FOR STUDY Hypertension. FINDINGS The renal arteries are patent bilaterally. The peak systolic velocity on the right is 134 cm/sec and on the left is 139 cm/sec. ??Renal aortic ratio is 1.3 on the right and 1.3 on the left. IMPRESSION Patent renal arteries bilaterally with no significant stenosis. Job ID/Internal Job ID: ??[id number] Georgia Yee MD [facility] [place] PROCEDURES Final Resul t * Metanephrines, fractionated free, blood (03/05/2024 12:59 PM CDT) Normetanephrines 0.51 <0.90 nmol/L [place] ref Lab Metanephrines <0.20 <0.50 nmol/L [facility] Comment: ADDITIONAL INFORMATION This test was developed and its performance characteristics determined by [facility] in a manner consistent with CLIA requirements. This test has not been cleared or approved by the U.S. Food and Drug Administration. Test Performed by: [facility] - [address] [address] Chef Teacher: Janeth Keating Ph.D.; CLIA# [id number] Blood 03/05/2024 12:5 9 PM CDT 03/05/2024 1:30 PM CDT Georgia Yee MD LAB BLOOD ORDERABLES Final Re sult [facility] [place] [address] [place] ref Lab * Renin activity (03/05/2024 12:59 PM CDT) Renin 8.0 ng/mL/H [facility] Comment: REFERENCE VALUE (Peripheral vein specimen) Na-deplete, upright: ??Mean: 5.9 ??Range: 2.9-10.8 Na-replete, upright: ??Mean: 1.0 ??Range: < or =0.6-3.0 ADDITIONAL INFORMATION Testing performed by Liquid Chromatography-Tandem Mass Spectrometry (LC-MS/MS). This test was developed and its performance characteristics determined by [facility] in a manner consistent with CLIA requirements. This test has not been cleared or approved by the U.S. Food and Drug Administration. Test Performed by: [place] [address] Chef Teacher: Janeth Keating Ph.D.; CLIA# [id number] Blood 03/05/2024 12:5 9 PM CDT 03/05/2024 1:24 PM CDT Georgia Yee MD LAB BLOOD ORDERABLES Final Re sult [place] [facility] [place] [place] [address] [facility] * Aldosterone (03/05/2024 12:59 PM CDT) Aldosterone 20 <=21 ng/dL [facility] Comment: ADDITIONAL INFORMATION Reference range for patients 11 years and older is based on upright A.M. collection from subjects without sodium restrictions. This test was developed and its performance characteristics determined by [facility] in a manner consistent with CLIA requirements. This test has not been cleared or approved by the U.S. Food and Drug Administration. Test Performed by: [facility] - [facility] [address] [place] [address] Chef Teacher: Janeth Keating Ph.D.; CLIA# [id number] Blood 03/05/2024 12:5 9 PM CDT 03/05/2024 1:28 PM CDT us Georgia Yee MD LAB BLOOD ORDERABLES Final Re sult [facility] One [facility] [place] [address] [place] ref Lab * ECG 12 lead (03/05/2024 11:53 AM CDT) us Georgia Yee MD ECG ORDERABLES Edited Result - Final documented in this encounter Visit Diagnoses Diagnosis Resistant hypertension- Primary Renovascular hypertension Secondary renovascular hypertension, unspecified Resistant hypertension Renovascular hypertension Secondary renovascular hypertension, unspecified documented in this encounter Discontinued Medications Medication Sig Discontinue Reason Start Date End Da te sulfamethoxazole-trimeth oprim (BACTRIM DS) 800-160 mg per tablet Therapy completed 11/21/2023 03/05/20 24 amitriptyline (ELAVIL) 25 mg tabletIndications:abdomi nal pain Take 2 tablets (50 mg total) by mouth nightly Therapy completed 05/16/2022 03/05/2024 documented as of this encounter Orders Outpatient Referral Count Last Ordered Date Fir st Ordered Date AMB REFERRAL TO CARDIOLOGY 1 03/05/2024 documented in this encounter Care Teams Correctional Program Officer Relationship Specialty Start Date End Date Mick Flowers MD PCP - General 05/14/17 documented as of this encounter
--- OUTSIDE RECORDS SUMMARY | 2024-06-29 00:26 | XMS_ITS | Encounter Summary ---
Author Organization [facility] Address [address] [place] [address] Phone Care Team Providers Care Longwall Foreman Name Role Phone Mick Flowers MD Primary Care Provider [phone] Reason for Referral * Diagnostic Imaging (Routine) - Closed Specialty Diagnoses / Procedures Referred By Contac t Referred To Contact Radiology Diagnoses Lumbar spondylosis Lumbar facet arthropathy Mechanical low back pain Procedures IR Facet Block Lumbar Sacral First Level Right Walter Rojas MD [address] [place] [address] Phone: tel: fax: [address] [address] Referral ID Status Reason Start Date Expiration Date Visits Re quested Visits Authorized [id number] Closed 01/02/2024 01/31/2025 1 1 Encounter Details Date Type Department Care Team (Late st Contact Info) Description 01/02/2024 Orders Only [facility] Orthopaedic Surgery [facility] Medical Office Building [address] [place] [address] Walter Rojas MD [address] [place] [address] Lumbar spondylosis; Lumbar facet arthropathy; Mechanical low back pain Social History Tobacco Use Types Packs/Day Years [...] on file Legal Sex Male 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 ??Please refer to the physician's procedure / OR operative note. us Walter Roajs MD IMG IR PROCEDURES Final Re sult [facility] documented in this encounter Visit Diagnoses Diagnosis Lumbar spondylosis Lumbosacral spondylosis without myelopathy Lumbar facet arthropathy Spondylosis of unspecified site without mention of myelopathy Mechanical low back pain Lumbago Lumbar spondylosis Lumbosacral spondylosis without myelopathy Lumbar facet arthropathy Spondylosis of unspecified site without mention of myelopathy Mechanical low back pain Lumbago documented in this encounter Care Teams Longwall Foreman Relationship Specialty Start Date End Date Mick Flowers MD PCP - General 05/14/17 documented as of this encounter
--- OUTSIDE RECORDS SUMMARY | 2024-06-29 00:26 | XMS_ITS | Encounter Summary ---
Author Organization [facility] Address [address] [place] [address] Phone Care Team Providers Care Collection Analyst Name Role Phone Mick Flowers MD Primary Care Provider [phone] Reason for Visit * Reason Onset Date Comments Labwork f/u 04/02/2024 Test Results 04/02/2024 Renal US Encounter Details Date Type Department Care Team (Late st Contact Info) Description 04/02/2024 Telephone [facility] Cardiology [address] [facility] 8th [place] [address] [place] [address] Georgia Yee MD [address] [facility] [address] [place], [place] [id number] Labwork f/u ; Test Results (Renal US) Social History Tobacco Use Types Packs/Day Years [...] on file 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 LMOM with results and information as noted. Encouraged to call with any questions. * Telephone Encounter - Georgia Yee MD - 04/03/2024 8:49 AM CDT Noted. Will await BP readings. US results returned previously - No SHIRA. * Telephone Encounter - Vi Blanco - 04/02/2024 11:50 AM CDT No results yet. Spoke with pt. He states he has been on the medication for about 10 days now. He will get the labwork done at [facility]. Confirmed the order was sent to [facility]. Pt states he plans to send in his BP log/spreadsheet next week on Sunday through [employer]. Per pt, the log seems to be showing his BP improving a couple hours after he takes his medication, but then it starts increasing again as the day goes on. Pt would like to obtain the results of the Renal US he had done last week on 03/26/24. Informed him I would update Dr. Yee of the above, we will watch for the labwork results and BP update. Reviewed I will f/u for the results of his Renal US and call him back once received. Verb understanding and agreeable. * Telephone Encounter - Lenka Dsouza RN - 04/02/2024 9:57 AM CDT ----- Message from Nurse Lenka J sent at 03/19/2024 10:23 AM CDT ----- BMP results. Started on Spironolactone on 03/19/24 documented in this encounter Plan of Treatment Not on file documented as of this encounter Visit Diagnoses Not on filedocumented in this encounter Care Teams Collection Analyst Relationship Specialty Start Date End Date Mick Flowers MD PCP - General 05/14/17 documented as of this encounter
--- OUTSIDE RECORDS SUMMARY | 2024-06-29 00:26 | XMS_ITS | Encounter Summary ---
Author Organization [facility] Address [address] [place] [address] Phone Care Team Providers Care Commercial Roofing Estimator Name Role Phone Mick Flowers MD Primary Care Provider [phone] Encounter Details Date Type Department Care Team (Late st Contact Info) Description 11/27/2023 Telephone [facility] Urology [address] [facility] Medical Office [address] [place] [address] Marquis Lopez MD [address] 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 Pt was unsure who called. Pt also had medication questions, provided pt with prescreening number to go over time and medications for surgery 11/28/23 documented in this encounter Plan of Treatment Not on file documented as of this encounter Visit Diagnoses Not on filedocumented in this encounter Care Teams Commercial Roofing Estimator Relationship Specialty Start Date End Date Mick Flowers MD PCP - General 05/14/17 documented as of this encounter
--- OUTSIDE RECORDS SUMMARY | 2024-06-29 00:26 | XMS_ITS | Encounter Summary ---
Author Organization [facility] Healthcare Address [address] [place] [address] Care Team Providers Care Spooling Supervisor Name Role Phone Mick Flowers MD Primary Care Provider [phone] Reason for Visit * Auth/Cert (Routine) Specialty Diagnoses / Procedures Referred By Contac t Referred To Contact Diagnoses Neurogenic bladder Urge urinary incontinence Neurogenic bladder [N31.9] Urge urinary incontinence [N39.41] Procedures VT CYSTOURETHROSCOPY INJ CHEMODENERVATION BLADDER VT CYSTOURETHROSCOPY INJECTION BOTOX 300 UNITS CYSTOSCOPY Referral ID Status Reason Start Date Expiration Date Visits Re quested Visits Authorized [id number] 1 1 Encounter Details Date Type Department Care Team (Late st Contact Info) Description 11/28/2023 2:58 PM CDT Anesthesia Event [facility] Operating Room [address] [place] [address] Johnny Cervantes MD [address] [address] [address] [address] [place] [address] Vi Marcano, DIETETICS TEACHER [address] [facility] [id number] [place] [address] Anesthesia Record Procedure Summary Procedure Name Responsible Anesthesiologist Anesthesia Start Time Anesthesia Stop Time INJECTION BOTOX 300 UNITS Johnny Cervantes MD 11/28/23 1458 11/28/23 1540 Events Date Time Event Comment 11/28/2023 1343 In Preop 1356 1437 AN Equip Check 1458 An Start 1500 In Room 1500 An Start Data 1505 Start Supplemental O2 1507 An Induction The patient was reevaluated immediately before moderate or deep sedation use and before anesthesia induction. 1509 Anesthesia Ready 1516 Proc Start 1526 Proc Fin 1530 an stop data 1534 Out of Room 1540 Handoff to RN I completed my handoff [...] disposition at the time of handoff: PACU 1540 An Stop Meds Name Total Lidocaine IV 1% 50 mg propofol 140 mg propofol 278.68 mg ceFAZolin (ANCEF) 1 gram/10 mL in steril e water (premix) 2,000 mg 2,000 mg midazolam 2 mg/2 mL 2 mg Lactated Ringer's (LR) infusion 700 mL * Agents Name O2 N2O Air Sevoflurane Inspired Sevoflurane * Blood No blood administrations on file. Lines, Drains, and Airways Type Details Placement Removal RETIRED Surgical Site 06/06/23; 1405; Penis; 05/27/24 (Retired LDA, Removed/Completed by [employer] with LDA Utility); 1213 (Retired LDA, Removed/Completed by [employer] with LDA Utility) 06/06/23 1405 by Brandy Barnett RN 05/27/24 1213 by Discharge Provider, Automatic RETIRED Surgical Site 10/30/23; 1508; Lower, Right; Back; 11/28/23; 1535 10/30/23 1508 by Lissette Lucas RN 11/28/23 1535 by Corrina Judd, LILIA RETIRED Surgical Site 11/28/23; 1516; Other (Comment); Bladder; 05/27/24 (Retired LDA, Removed/Completed by [employer] with LDA Utility); 1213 (Retired LDA, Removed/Completed by [employer] with LDA Utility) 11/28/23 1516 by Kimberly Conteh RN 05/27/24 1213 by Discharge Provider, Automatic documented in this encounter Social History Tobacco [...] on file 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 Gender Identity Not on file Sexual Orientation Not on file 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 on file Not on file documented as of this encounter OR Notes * Anesthesia Postprocedure Evaluation - Johnny Cervantes MD - 11/28/2023 3:48 PM CDT Patient: Doc Emery Procedure Summary Date: 11/28/23 Room / Location: [facility] OPERATING ROOM 02 / [facility] OPERATING ROOM Anesthesia Start: 1458 Anesthesia Stop: 1540 Procedures: INJECTION BOTOX 300 UNITS CYSTOSCOPY Diagnosis: Neurogenic bladder Urge urinary incontinence (Neurogenic bladder [N31.9]) (Urge urinary incontinence [N39.41]) Surgeons: Marquis Lopez MD Responsible Provider: Johnny Cervantes MD Anesthesia Type: general ASA Status: 2 Anesthesia Type: general Last vitals BP 130/84 Pulse 65 Temp 36.2 ??C (97.2 ??F) Resp 20 SpO2 97% Anesthesia Post Evaluation Patient location during evaluation: PACU Patient participation: complete - patient participated Level of consciousness: fully awake Pain management: satisfactory to patient Airway patency: adequate and patent Evidence of recall: no Cardiovascular status: acceptable and hemodynamically stable Respiratory status: acceptable and room air Hydration status: acceptable Pt is: normothermic Nausea/Vomiting status: none No notable events documented. * Anesthesia Preprocedure Evaluation - Adam Peguero MD - 11/22/2023 2:29 PM CDT Images from the original note were not included. [facility] Planning Preoperative Evaluation Record Evaluation type/location: TPAP from [facility] Planned procedure site: [facility] OR Date: 11/22/23 Anesthesia Evaluation NOTE: This note represents a preoperative evaluation initiated via telephone interview. NO PHYSICALEXAM was performed at the time of initial assessment. A physical exam may be added to this note anddocumented below. Doc Emery is a 58 y.o. male INJECTION BOTOX 300 UNITS CYSTOSCOPY Pre-Op Diagnosis Codes: * Neurogenic bladder [N31.9] * Urge urinary incontinence [N39.41] HISTORY HPI Doc Emery is a 58 y.o. male who is being evaluated prior to undergoing injection botox and cystoscopy for neurogenic bladder/urge urinary incontinence. PMH includes multiple sclerosis. HTN, HLD,GERD Past Medical History Information obtained from: patient and chart. Information obtained during: Telephone Visit NOTE: This note represents a preoperative evaluation initiated via virtual (video or telephone) interview. NO PHYSICAL EXAM was performed at the time of initial assessment. A physical exam may be added to this note and documented below. Neurological + Psychiatric history - anxiety + Neuromuscular disease (age 24 diagnos. RLE weakness, visual changes, neurogenic bladder) - multiple sclerosis. Pertinent negatives: CVA/stroke; TIA; dementia/mild cognitive impairment and carotid artery stent Comments: [facility] Multiple Sclerosis clinic [place] 10/2022 Cardiovascular + Hypertension (states his BP has been running high recently and has an apt with cardiology in a couple months to address) Hypertension year diagnosed: 1984. Typical systolic BP - 150 Typical diastolic BP - 95 + Hyperlipidemia (on statin) Pertinent negatives: CAD ; IL ; CABG ; valvular heart disease; atrial fibrillation; pacemaker/ICD; DVT/PE; negative for CHF; drug-eluting stent(s) and bare metal stent(s) Respiratory Pertinent negatives: COPD; sleep apnea (ROSALINDA); pulmonary hypertension; no O2 use outside the hospital and non-smoker Hepatic / Heme Pertinent negatives: liver disease and history of anemia Gastrointestinal + GERD - PRN medication use only. Symptoms < 1x/week. Renal / Pertinent negatives: renal disease and dialysis Comments: Neurogenic bladder-intermittent catheterization 2-4 times daily Endocrine / Other + Infectious disease (Hx of UTIs, COVID-19 positive test 05/28/2020) - UTI. + Eye disorder (2/2 Multiple sclerosis) Pertinent negatives: diabetes mellitus; thyroid disease; cancer history; rheumatological disease; transplanted organ and pancreatitis Functional Capacity Functional capacity: 4-6 METs Comments: Lift weights 3x a week cardio 2x a week I.e. stairs for 1/2 hour Denies SOB/CP climbing 2 flights of steps Review of Systems + pedal edema (from BP medication, relieved with elevation) + muscle weakness (RLE, chronic) + vision loss (wears corrective lenses) Pertinent negatives: productive cough; wheezing; SOB; recent cold/flu; fever; chest pain; palpitations; orthopnea; PND; previous transfusion; melena/hematochezia; easy bruising; bleeding problems; syncope; dizziness; numbness/tingling; nausea; dysphagia; diarrhea; abdominal pain and no unexpected weight change PAT Summary and Plans Cardiac risk classification [...] provided by telephone and electronically sent via [employer]. Patient verbalized understanding of instructions. Blood bank needs for day of procedure: No type and screen needed Pending labs/tests include: None TPAP complete Preoperative evaluation performed by Vi Marcano NP on 11/22/23 at 2:34 PM . Patient Active Problem List Diagnosis Date Noted Medication management 11/11/2022 Urge urinary incontinence 02/13/2022 Abnormal MRI 02/16/2021 Vitamin D deficiency 02/16/2021 Bowel incontinence 12/14/2020 Cardiovascular risk factor 12/14/2020 OAB (overactive bladder) 07/31/2018 Neurogenic bladder disorder 02/13/2018 Neurogenic bladder 02/13/2018 Erectile dysfunction 09/08/2016 Primary insomnia 08/24/2015 Penile discharge 03/11/2014 Urinary tract infection 02/18/2014 Urethral stricture 01/26/2014 Abnormality of gait and mobility 12/16/2012 High risk medication use 12/16/2012 Hypercholesterolemia 12/16/2012 Multiple sclerosis (HCC) 12/16/2012 Anxiety 10/03/2012 Past Medical History: Diagnosis Date COVID-19 positive test 05/28/2020 Hyperlipidemia Hypertension Hypertension Multiple sclerosis (HCC) Multiple [...] COMPLETE W LIVER DOPPLER (C) Right 10/30/2023 No Known Allergies Med List Status: Nurse Complete Set By: Gregory Kaplan RN at 11/15/2023 8:33 AM Taking? Last Dose Start Date End Date Provider ALPRAZolam (XANAX) 0.5 mg tablet 11/14/2023 08/26/22 -- Bettie Batres MD alprostadiL (Edex) 40 mcg injection -- 02/23/23 -- Micah Roberts NP 20 mcg by intracavity route as needed for erectile dysfunction Patient taking differently: 20 mcg by intracavity route as needed for erectile dysfunction amitriptyline (ELAVIL) 25 mg tablet 11/14/2023 05/16/22 -- Noam Leonard MD Take 2 tablets (50 mg total) by mouth nightly Patient taking differently: Take 2 tablets (50 mg total) by mouth nightly atorvastatin (LIPITOR) 40 mg tablet 11/14/2023 04/05/22 -- ProviderBettie MD BD Insulin Syringe Ultra-Fine 0.5 mL 30 gauge x 1/2 syringe -- 08/30/22 -- Bettie Batres MD famotidine (PEPCID) 20 mg tablet Past Month 10/06/21 -- Bettie Batres MD felodipine (PLENDIL) 5 mg 24 hr tablet 11/15/2023 07/19/07 -- Bettie Batres MD hydroCHLOROthiazide (HYDRODIURIL) 25 mg tablet 11/15/2023 -- -- Bettie Batres MD multivitamin tablet 11/15/2023 -- -- Bettie Batres MD POTASSIUM CHLORIDE ER 20 mEq CR tablet 11/15/2023 04/23/18 -- Bettie Batres MD sulfamethoxazole-trimethoprim (BACTRIM DS) 800-160 mg per tablet -- 11/21/23 11/24/23 Marquis Lopez MD Take 1 tablet by mouth 2 (two) times a day for 3 days valsartan (DIOVAN) 320 mg tablet 11/14/2023 07/19/22 -- Bettie Batres MD No current facility-administered medications for this encounter. Current Outpatient Medications: ALPRAZolam (XANAX) 0.5 mg tablet alprostadiL (Edex) 40 mcg injection amitriptyline (ELAVIL) 25 mg tablet atorvastatin (LIPITOR) 40 mg tablet famotidine (PEPCID) 20 mg tablet felodipine (PLENDIL) 5 mg 24 hr tablet hydroCHLOROthiazide (HYDRODIURIL) 25 mg tablet multivitamin tablet POTASSIUM CHLORIDE ER 20 mEq CR tablet valsartan (DIOVAN) 320 mg tablet BD Insulin Syringe Ultra-Fine 0.5 mL 30 gauge x 1/2 syringe sulfamethoxazole-trimethoprim (BACTRIM DS) 800-160 mg per tablet Social History Tobacco Use Smoking Status Never Smokeless Tobacco Never Alcohol Use: Not At Risk (11/15/2023) AUDIT-C Frequency of Alcohol Consumption: 2-3 times a week Average Number of Drinks: 1 or 2 Frequency of Binge Drinking: Never Substance and Sexual Activity Drug Use Yes Frequency: 4.0 times per week Types: Medical marijuana Family History Problem Relation Age of Onset Melanoma Mother Family history of malignant melanoma - (Added by TW Conv) Cancer Mother Alcohol abuse Father Cancer Father Hypertension Father Hypertension Other Family history of Hypertension; Anesthesia problems Neg Hx Malig Hypertension Neg Hx Pseudochol deficiency Neg Hx Malig Hyperthermia Neg Hx There were no vitals filed for this visit. Relevant diagnostics: ECG(s): N/A Echocardiogram(s): N/A Stress test(s): N/A Cardiac catheterization(s): N/A PFT(s): N/A Vascular studies: Carotid duplex 09-18-23 The right internal carotid shows 1-49% stenosis. [...] This PAT evaluation Airway Exam: Mallampati: II Cervical ROM: FROM Cardiovascular Exam: Rate: regular Rhythm: regular Pulmonary Exam: LCTA, bilat Anesthesia Plan ASA 2 My patient is approved for the Anesthesia Controlled Medication protocol when under care of a ENTERTAINMENT LAWYER Planned anesthesia: General Informed Consent: Anesthesia plan and risks discussed with patient. Consent and Attending signature: I and/or my designee have discussed the anesthesia plan, benefits, possible alternatives, parental presence at time of induction (if indicated), and clinically relevant risks that may include dental injury, unintentional awareness, and/or other complications. The patient and/or parent/legal guardian understand, and agree to proceed. All questions answered. documented in this encounter Plan of Treatment [...] mL/hr, Administer over 3 Minutes, Once, On Sun11/28/23 at 1415, For 1 dose, Pre-Op, Administer within 60 minutes of incision., Indications: Prophylaxis, SurgicalIndications:Prophylaxis, Surgical Given 11/28/2023 2:58 PM CDT 2,000 mg Lactated Ringer's (LR) infusion 30 mL/hr, intravenous, Continuous, Starting on Sun11/28/23 at 1415, For 4 hours, Pre-Op, Use a 500 ml bag for End Stage Renal Disease Patients. Discontinue if fluid still running once patient arrives to floor. Restarted 11/28/2023 3:26 PM CDT New Bag 11/28/2023 2:39 PM CDT 30 mL/hr lidocaine (PF) (XYLOCAINE) 10 mg/mL (1 %) preservative free injection intravenous, As needed, Starting on Sun11/28/23 at 1507, Anesthesia Intra-op Given 11/28/2023 3:07 PM CDT 50 mg midazolam (VERSED) 1 mg/mL injection intravenous, As needed, Starting on Sun11/28/23 at 1458, Anesthesia Intra-op Given 11/28/2023 2:58 PM CDT 2 mg propofoL (DIPRIVAN) 10 mg/mL IV intravenous, As needed, Starting on Sun11/28/23 at 1507, Anesthesia Intra-op Given 11/28/2023 3:12 PM CDT 60 mg Given 11/28/2023 3:07 PM CDT 80 mg propofoL (DIPRIVAN) 10 mg/mL IV intravenous, Continuous PRN, Starting on Sun11/28/23 at 1507, Anesthesia Intra-op Rate/Dose Change 11/28/2023 3:12 PM CDT 200 mcg/kg/min 94.2 mL/hr New Bag 11/28/2023 3:07 PM CDT 150 mcg/kg/min 70.65 mL/ hr documented in this encounter Care Teams Spooling Supervisor Relationship Specialty Start Date End Date Mick Flowers MD PCP - General 05/14/17 documented as of this encounter
--- OUTSIDE RECORDS SUMMARY | 2024-06-29 00:26 | XMS_ITS | Encounter Summary ---
Author Organization [facility] Address [address] [place] [address] Phone Care Team Providers Care Asset Protection Greeter Name Role Phone Mick Flowers MD Primary Care Provider Encounter Details Date Type Department Care Team (Late st Contact Info) Description 03/19/2024 Orders Only [facility] Cardiology [address] [facility] Advanced Medicine 8th [place] [address] [place] [phone] Georgia Yee MD [address] [facility] [address] [place] [address] Social History Tobacco Use Types Packs/Day Years [...] on file 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 Gender Identity Not on file Sexual Orientation Not on file 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 on file Not on file documented as of this encounter Ordered Prescriptions Prescription Sig Dispense Quantity Refills Last Filled Start Date End Date spironolactone (ALDACTONE) 25 mg tablet Take 1 tablet (25 mg total) by mouth daily 90 tablet 3 03/19/2024 04/04/2024 documented in this encounter Plan of Treatment Not on file documented as of this encounter Visit Diagnoses Not on filedocumented in this encounter Discontinued Medications Medication Sig Discontinue Reason Start Date End Da te spironolactone (ALDACTONE) 25 mg tablet Take 1 tablet (25 mg total) by mouth daily Reorder 03/19/2024 03/19/2024 documented as of this encounter Care Teams Asset Protection Greeter Relationship Specialty Start Date End Date Mick Flowers MD PCP - General 05/14/17 documented as of this encounter
--- OUTSIDE RECORDS SUMMARY | 2024-06-29 00:26 | XMS_ITS | Encounter Summary ---
Author Organization [facility] Address [address] [place] [address] Phone Care Team Providers Care [employer] Name Role Phone Mick Flowers MD Primary Care Provider [phone] Encounter Details Date Type Department Care Team (Late st Contact Info) Description 01/01/2024 Orders Only [facility] Orthopaedic Surgery [address] [facility] [address] [place] [address] Walter Rojas MD [address] [place] [address] Social History Tobacco Use Types Packs/Day Years [...] on file 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
--- OUTSIDE RECORDS SUMMARY | 2024-06-29 00:26 | XMS_ITS | Encounter Summary ---
Author Organization [facility] Healthcare Address [address] [place] [address] Care Team Providers Care Bull Float Finisher Name Role Phone Mick Flowers MD Primary Care Provider [phone] Reason for Visit * Auth/Cert (Routine) Specialty Diagnoses / Procedures Referred By Contac t Referred To Contact Diagnoses Neurogenic bladder OAB (overactive bladder) Urge urinary incontinence Neurogenic bladder [N31.9] Procedures MT CYSTOURETHROSCOPY INJ CHEMODENERVATION BLADDER MT CYSTOURETHROSCOPY INJECTION BOTOX 300 UNITS CYSTOSCOPY Referral ID Status Reason Start Date Expiration Date Visits Re quested Visits Authorized [id number] 1 1 Encounter Details Date Type Department Care Team (Late st Contact Info) Description 06/04/2024 9:29 AM HAND PROFILER - 06/04/2024 1:44 PM [facility] Hospital Encounter [facility] Operating Room [address] [place] [address] Marquis Lopez MD [address] [facility] [address] [place] [address] Neurogenic bladder (Primary Dx); Urge urinary incontinence [...] on file Legal Sex Male 3:12 AM HAND PROFILER Gender Identity Not on file Sexual Orientation Not on file 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 on file Not on file documented as of this encounter Last Filed Vital Signs Vital Sign Reading Time Taken Comments Blood Pressure 140/91 06/04/2024 1:15 PM HAND PROFILER Pulse 81 06/04/2024 1:15 PM HAND PROFILER Temperature 36.2 ??C (97.2 ??F) 06/04/2024 1 2:46 PM HAND PROFILER Respiratory Rate 16 06/04/2024 1:15 PM HAND PROFILER Oxygen Saturation 98% 06/04/2024 1:15 PM HAND PROFILER Inhaled Oxygen Concentration - - Weight 80.6 kg (177 lb 12.8 oz) 06/04/2024 9:34 AM HAND PROFILER Height 177.8 cm (5' 10 ) 06/04/2024 9:34 AM HAND PROFILER Body Mass Index 25.51 06/04/2024 9:34 AM HAND PROFILER documented in this encounter Discharge Instructions * Discharge Instructions* Michelle Awad RN - 06/04/2024 12:55 PM HAND PROFILER DISCHARGE INSTRUCTIONS: Expected side effects from stents: You see blood in your urine. Medicines: Take your home medicine as prescribed. You may also take [id number] acetaminophen as needed for pain. Other instructions: Drink lots of liquids to dilute the amount of blood in the urine. Expect to have some blood in the urine that turns the urine light pink or red. Drink plenty of fluids to dilute the amount of blood. Follow up: Follow up as needed with Dr Lopez. The scheduling office should call you. Please call [phone] ifyou do not hear from them within 3 days. Contact your healthcare provider or urologist if: You have a fever of 101.5 F or higher or chills. You have new or more blood in your urine. You have trouble starting to urinate, or have a very weak stream of urine when you urinate. You feel severe pain or pressure in your lower abdomen. Your urine looks cloudy, and smells bad. Seek care immediately or call 911 if: You urinate little or not at all. You have severe abdominal or back pain. You are dizzy or confused. You have uncontrollable nausea, and vomiting. Sunday through Sunday, 8 AM to 4:30 PM, call [phone] with questions. After 4:30 PM during the week, on weekends and holidays, call [phone] and ask to have the Urology Drying Machine Operator Physician paged for you. You have received anesthesia, therefore, for the next 24 hours and/or while taking narcotic pain medication; -Do NOT drive a vehicle -Do NOT drink alcohol -Do NOT make important personal or business decisions or sign legal documents. Examples of narcotic pain medication include Percocet, Oxycontin, Loretto, Hydrocodone, and Oxycodone. FAQs (frequently asked questions) about Surgical Site Infections What is a Surgical Site Infection (SSI)? A surgical site infection is and infection that occurs after surgery in the part of the body where the surgery took place. Most patients who have surgery do not develop an infection. However, infections develop in about 1 to 3 out of every 100 patients who have surgery. Some of the common symptoms fo a surgical site infection are: Redness and pain around the area where you had surgery Drainage of cloudy fluid from your surgical wound Fever Can SSIs be treated? Yes. Most surgical site infections can be treated with antibiotics. The antibiotic given to you depends on the bacteria (germs) causing the infection. Sometimes patients with SSIs causing the infection. Sometimes patients with SSIs also need another surgery to treat the infection. What are some of the things that hospitals are doing to prevent SSIs? To prevent SSIs, doctors, nurses, and other healthcare providers: Clean their hands and arms up to their elbows with an antiseptic agent just before the surgery. Clean their hands with soap and water or an alcohol-based hand rub before and after caring for eachpatient. May remove some of your hair immediately before your surgery using electric clippers if the hair isin the same area where the procedure will occur. They should not shave you with a razor. Wear special hair covers, masks, gowns, and gloves during surgery to keep the surgery area clean. Give you antibiotics before your surgery starts. In most cases, you should get antibiotics within 60 minutes before the surgery starts and the antibiotics should be stopped within 24 hours after surgery. Clean the skin at the site of your surgery with a special soap that kills germs. What can I do to help prevent SSIs? Before your surgery: Tell your doctor about other medical problems you may have. Health problems such as allergies, diabetes, and obesity could affect your surgery and your treatment. Quit smoking. Patients who smoke get more infections. Talk to your doctor about how you can quit before your surgery. Do not shave near where you will have surgery. Shaving with a razor can irritate your skin and makeit easier to develop an infection. At the time of your surgery: Speak up if someone tries to shave you with a razor before surgery. Ask why you need to be shaved and talk with your surgeon if you have any concerns. Ask if you will get antibiotics before surgery. After your surgery: Make sure that your healthcare providers clean their hands before examining you, either with soap and water or an alcohol-based hand rub. If you do not see you providers clean their hands, please ask them to do so. Family and friends who visit you should not touch the surgical wound or dressings. Family and friends should clean their hands with soap and water or an alcohol- based hand rub beforeand after visiting You. If you do not see them clean their hands, ask them to clean their hands. What do I need to do when I go home from the hospital? Before you go home, your doctor or nurse should explain everything you need to know about taking care of your wound. Make sure you understand how to care for your wound before you leave the hospital. Always clean your hands before and after caring for your wound. Before you go home, make sure you know who to contact if you have questions or problems after you get home. If you have any symptoms of an infection, such as a redness and pain at the surgery site, drainage,or fever, call your doctor immediately. If you have additional questions, please ask your doctor or nurse. Safety Tips for Preventing Falls at Home Falls happen at home for many reasons. Here are several things that are known to add to your risk of falling: Poor vision or hearing History of falls Use of an assistive device, such as a cane or walker Poor nutrition Certain medications Multiple medications Being older than 65 years of age Conditions in the home, such as slippery floors, loose rugs, cords on the floor If you answer ???yes?? to any of the following questions, please consider discussing your risk of falling with your primary care practitioner: Have you fallen in the last year? Do you feel unsteady when standing or walking? Do you have a fear of falling? If your primary care practitioner recommends physical therapy, we are available to assist: [facility]: [facility] [phone] [place] [phone] [facility] [phone] How are some things that you can do that will lower your risk for falls at home: Arrange furniture to prevent tripping or bumping into it. Keep a light on in the bedroom & bathroom to help you see at night. Have your doctor or pharmacist review your medications. Remove things that you can trip over like phone cords, rugs & footstools. Wear sturdy non-skid slippers or shoes with flat or low heels Use handrails when going up & down stairs. Take one step at a time. Begin a regular exercise program When getting up, sit on the edge of the bed/chair for a few minutes before standing. Sit & stand up slowly. Avoid tilting your head back. Watch out for sidewalks & curbs that are not even. Replace worn walker, cane & crutch tips. Disclaimer: This material provides general information only. It should not be used in place of the advice, instructions, or treatment given by your doctor or other health career developer. PROFILER PROFILER documented in this encounter Medications at Time [...] (320 mg total) by mouth nightly 07/19/2022 doxazosin (CARDURA) 2 mg tablet Take 1 tablet (2 mg total) by mouth nightly 30 tablet 11 05/26/2024 4 documented as of this encounter Discharge Disposition Disposition Code Departure Means Destination Comment s Discharge to home or self care documented in this encounter H&P Notes * Marquis Lopez MD - 06/04/2024 11:11 AM CST I have reviewed the H&P, examined the patient, and endorse the findings as written. Plan of Care : Based on the above findings, I consider Doc Emery to be an acceptable risk for : Procedure(s): INJECTION BOTOX 300 UNITS CYSTOSCOPY And all indicated procedures Physical examination: GENERAL: Patient is a healthy appearing who is well developed, well nourished in no acute distress. Eyes: Pupils equal, round. Sclera anicteric. Chest: Lungs clear to auscultation bilaterally. Heart: Regular rate and rhythm. Abdomen: Soft and non-tender, no masses, no hernia. No CVA tenderness. Skin: No rashes or lesions. Musculoskeletal: Normal strength. No edema. Neurologic: Alert, nonfocal. Psychiatric: Normal affect and mood, oriented x 3. PROFILER Source Note - Cole Edmondson MD - 05/28/2024 1:53 PM HAND PROFILER Images from the original note were not included. [facility] Preoperative [facility] Planning Preoperative Evaluation Record Evaluation type/location: TPAP from [facility] Planned procedure site: [facility] OR Date: 05/28/24 Anesthesia Evaluation NOTE: This [...] cognitive impairment and carotid artery stent Comments: [facility] Multiple Sclerosis clinic Cardiovascular + Hypertension (States BP has been bettr controlled since seeing Dr. Georgia Yee) Hypertension year diagnosed: 1984. Typical systolic BP - 120 Typical diastolic BP - 80 + Hyperlipidemia (on statin) Pertinent negatives: CAD ; NE ; CABG ; valvular heart disease; atrial [...] provided by telephone and electronically sent via makr. Patient verbalized understanding of instructions. Blood bank [...] (DIOVAN) 320 mg tablet 05/13/2024 07/19/22 -- Bettie Batres MD No current [...] times per week Types: Medical marijuana Comment: arnaudangel OSBALDO Family History Problem Relation Age of Onset [...] Medication protocol when under care of a LABORER WHARF Planned anesthesia: General Induction: Induction: intravenous. Postoperative Plan: Postoperative administration opioids intended. No postoperative mechanical ventilation intended. Patient's planned disposition post procedure is Outpatient. Informed Consent: Discussed plan with LABORER WHARF. Anesthesia plan and risks discussed with patient and spouse. Consent and Attending signature: I and/or my designee have discussed the anesthesia plan, benefits, possible alternatives, parental presence at time of induction (if indicated), and clinically relevant risks that may include dental injury, unintentional awareness, and/or other complications. The patient and/or parent/legal guardian understand, and agree to proceed. All questions answered. PROFILER PROFILER * Papo Munguia MD - 06/04/2024 9:40 AM CST I have reviewed the H&P, examined the patient, and endorse the findings as written. Plan of Care : Based on the above findings, I consider Doc Emery to be an acceptable risk for : Procedure(s): INJECTION BOTOX 300 UNITS CYSTOSCOPY WWP NAD Cosigned by Marquis Lopez MD at 06/06/2024 2:16 PM HAND PROFILER PROFILER PROFILER Associated attestation - Marquis Lopez MD - 06/06/2024 2:16 PM HAND PROFILER Source Note - Vi Marcano, JEFFRY - 05/28/2024 1:53 PM HAND PROFILER Images from the original note were not included. [facility] Planning Preoperative Evaluation Record Evaluation type/location: TPAP from [facility] Planned procedure site: [facility] OR Date: 05/28/24 Anesthesia Evaluation NOTE: This [...] cognitive impairment and carotid artery stent Comments: [facility] Multiple Sclerosis clinic Cardiovascular + Hypertension (States BP has been bettr controlled since seeing Dr. Georgia Yee) Hypertension year diagnosed: 1984. Typical systolic BP - 120 Typical diastolic BP - 80 + Hyperlipidemia (on statin) Pertinent negatives: CAD ; NE ; CABG ; valvular heart disease; atrial [...] provided by telephone and electronically sent via MyChart. Patient verbalized understanding of instructions. Blood bank [...] List Status: Nurse Complete Set By: Abbi rOtiz, RN at 05/14/2024 1:21 PM Taking? Last [...] (DIOVAN) 320 mg tablet 05/13/2024 07/19/22 -- Bettie Batres MD No current [...] times per week Types: Medical marijuana Comment: arnaudarturorashard ROBLERO Family History Problem Relation Age of [...] last 30 days. Romain index score: 100 PROFILER documented in this encounter Miscellaneous Notes * Perioperative Nursing Note - Michelle Awad RN - 06/04/2024 1:44 PM HAND PROFILER Pt discharged home via wheelchair. Patient and family were given discharge instructions and verbalized understanding of material and are comfortable going home. Patient self-cathed in bathroom and did not record amount but reported clear yellow urine PROFILER * Op Note - Marquis Lopez MD - 06/04/2024 11:30 AM CST Date of Surgery: 06/04/2024 Preoperative diagnosis: neurogenic bladder with detrusor overactivity and urgency urinary incontinence Post-operative diagnosis: neurogenic bladder with detrusor overactivity and urgency urinary incontinence Procedure: Cystoscopy, injection of 300 units of onabotulinumtoxinA (Botox) into the bladder Surgeon: Marquis Lopez MD Information Technology Assistant: Bethany Michael MD Anesthesia: General Complications: None Estimated blood loss: None Specimen: None Indication for surgery: Patient has neurogenic bladder with detrusor overactivity and urgency urinary incontinence, and is here for Botox injection into the bladder to treat urinary incontinence. I have discussed with patient in detail all risks, benefits and alternatives to the procedure. All questions were answered. The patient wishes to proceed with the procedure as planned. Risks discussed and included, but were not limited to, bleeding, urinary tract infection, incomplete bladder emptying,urinary retention, and need for CIC/medel. Patient is also aware that Botox may not completely makepatient completely dry and may fail in some patients. Also repeated injection is necessary to maintain efficacy. Patient consented to proceed with injection of the Botox. Surgery in details: Patient was identified in preop area and given IV antibiotics. Bilateral SCDs placed for DVT prophylaxis. Patient was placed in the lithotomy position. Patient was then prepped and draped in a standard surgical fashion. The rigid scope was advanced into the bladder. The urethra and the bladder mucosa looks normal. Next we diluted with 200 units of Botox in 20 cc of injectable normal saline, and we injected the Botox into the into the detrusor and submucosal area of the bladder in 0.5-1 cc aliquots. Botox was injected into the posterior bladder wall, the left and the right lateral bladder wall as well as the trigone of the bladder sparing the ureteral orifices bilaterally. All the Botox was injected inside the bladder. At the conclusion of the case there was no bleedinginside the bladder. The bladder was then empty out. Counts at the conclusion of the case: Correct Presence Statement: I, Dr. Marquis Lopez, was present throughout the surgery. PROFILER * Brief Op Note - Marquis Lopez MD - 06/04/2024 11:30 AM CST Operative Progress Note Surgical Team: Surgeons and Role: * Marquis Lopez MD - Primary * Bethany Michael MD - Resident - Assisting Anesthesiologist: Cole Edmondson MD LABORER WHARF: Jagjit Goldman CRNA Paper Sealer: Rocío Rivera RN; Kimberly Conteh RN Scrub: Kobi Vega ST; Charlene Mckenna ST DATE OF SURGERY : 06/04/2024 Preoperative Diagnosis: Pre-op Diagnosis * Neurogenic bladder [N31.9] * OAB (overactive bladder) [N32.81] * Urge urinary incontinence [N39.41] Postoperative Diagnosis: Post-op Diagnosis * Neurogenic bladder [N31.9] * OAB (overactive bladder) [N32.81] * Urge urinary incontinence [N39.41] Procedure(s): Procedure(s) (LRB): INJECTION BOTOX 300 UNITS (N/A) CYSTOSCOPY (N/A) Operative Findings: Normal bladder and urethra Estimated Blood Loss: No blood loss documented. Intraoperative Fluids: See anesthesia record for mls Specimens: No specimen collected in procedure Implants: Nothing was implanted during the procedure Blood/Blood Products Transfused: 0 mls Complications: None Condition on Discharge from the operating room was stable Marquis Lopez MD Date: 06/04/2024 Time: 6:07 PM TEACHING ATTESTATION : I was present and directly participated in the entire procedure (including opening and closing). PROFILER * Pre-Procedure Instructions - Vi Marcano, FORMULA ROOM WORKER - 05/28/2024 1:55 PM HAND PROFILER [facility] for Preoperative Assessment and Planning CPAP Clinic Location: [facility] The night before your surgery: * Do not eat anything after midnight the night before your procedure. The morning of your surgery: * You may have clear liquids on your surgery day. You must stop drinking two hours before you arrive to the surgery facility. Acceptable clear liquids include water, clear sports drinks, black coffee, tea, or clear soda. DO NOT drink any milk, creamer, or alcohol. * Your surgeon's office may have provided additional instructions or restrictions. Please follow those instructions. * You may brush your teeth and rinse your mouth out. * Do not wear jewelry, body piercings, makeup, hairpins, false eyelashes or contact lenses to the hospital. * Leave any valuables at home or with your family. Outpatient Surgery: * You must have a responsible adult drive you home and stay with you for 24 hours after your surgery * You cannot be alone at home or in a hotel * Please call your surgeon's office if you do not have someone to drive you home and/or stay with you after surgery * Please bring any items you may need to spend the night in the hospital. Sometimes patients need to be cared for in the hospital overnight. Instructions For Your Medications: Pre-Surgery Instructions: Medication Instructions ALPRAZolam (XANAX) 0.25 mg tablet Take on day of surgery if needed alprostadiL (Edex) 40 mcg injection Don't take on day of surgery atorvastatin (LIPITOR) 40 mg tablet Take the evening prior to surgery famotidine (PEPCID) 20 mg tablet Take morning of surgery felodipine (PLENDIL) 5 mg 24 hr tablet Take morning of surgery hydroCHLOROthiazide (HYDRODIURIL) 25 mg tablet Don't take on day of surgery multivitamin tablet Stop taking 1 week prior to surgery valsartan (DIOVAN) 320 mg tablet Don't take on day of surgery doxazosin (CARDURA) 2 mg tablet Take the evening prior to surgery General Instructions For Medications: * Stop all of these medications 5 days prior to your surgery: excedrin, motrin, advil, ibuprofen, aleve, naproxen, meloxicam, celebrex, celecoxib. For medications that you are instructed to take on the morning of surgery, take the medications with a few sips of water. Stop all of these medications 7-14 days prior to your surgery: Vitamin E, Herbal medicines, Diet Pills If you have pain, you may take tylenol (acetaminophen). Do not take more than 6 tablets or 3000 mg (3 g) within a 24 period. Call your surgeon and the CPAP clinic if any of the following happens before surgery: Any changes in your health You have a fever You have any signs of an infection (chest, urinary tract or tooth) You have been to the Emergency Room or were in the hospital You have started taking any new medications If laboratory testing was completed during your visit, we will only contact you regarding any results that require you to take additional action prior to your planned procedure. PROFILER * Perioperative Nursing Note - Abbi Ortiz RN - 05/14/2024 1:44 PM CST Center for Preoperative Assessment and Planning Perioperative Nursing Note Telephone Preoperative Evaluation ([facility]) - TELEPHONE ONLY, NO PHYSICAL EXAM Date: 05/14/24 This assessment was completed with the patient. Vitals: 05/14/24 1320 Weight: 79.4 kg (175 lb) Height: 177.8 cm (5' 10 ) CHEST CIRCUMFERENCE: n/a Social History Tobacco Use Smoking Status Never Passive exposure: Past Smokeless Tobacco Never Substance and Sexual Activity Drug Use Yes Frequency: 5.0 times per week Types: Medical marijuana Comment: gummies MJ Alcohol Use Q1: How often do you have a drink containing alcohol?: 2-3 times a week Q2: How many drinks containing alcohol do you have on a typical day when you are drinking?: 1 or 2 Q3: How often do you have six or more drinks on one occasion?: Never Outpatient Medications Marked as Taking for the 06/04/24 encounter (Hospital Encounter) Medication Sig Dispense Refill ALPRAZolam (XANAX) 0.25 mg tablet Take 3 tablets (0.75 mg total) by mouth nightly as needed for sleep alprostadiL (Edex) 40 mcg injection 20 mcg by intracavity route as needed for erectile dysfunction (Patient taking differently: 20 mcg by intracavity route as needed for erectile dysfunction) 10 kit 6 atorvastatin (LIPITOR) 40 mg tablet Take 1 tablet (40 mg total) by mouth nightly doxazosin (CARDURA) 2 mg tablet Take 1 tablet (2 mg total) by mouth nightly (Patient taking differently: Take 1 tablet (2 mg total) by mouth nightly) 30 tablet 11 famotidine (PEPCID) 20 mg tablet Take 1 [...] daily before breakfast valsartan (DIOVAN) 320 mg tablet Take 1 tablet (320 mg total) by mouth nightly Implants No active implants to display in this view. SKIN Piercings Remaining: No Wound (LDAs) Type of Wound (LDA): (pt denies) SCREENINGS Romain index score: 100 PATIENT CARE PLANNING Advance Directives (For Healthcare) Have you reviewed your Advance Directive and is it valid for this stay?: No Advance Directive: Patient has advance directive, copy not in chart Advance Directive not in Chart: Copy requested from family Information Provided on Healthcare Directives: No Communication/Quality Assurance Calibrator Needs Communication Barriers: Visual Communication Needs: Glasses Does caregiver's language differ from patient's?: No Assistive Devices/DME: Eyeglasses Discharge Planning Type of Residence: Private residence Living Arrangements: Spouse/significant other Support Systems: Spouse/significant other Assistance Needed: pt's will be with pt on DOS Patient expects to be discharged to: Private residence ELECTROMECHANICAL INSPECTOR NO ADDITIONAL COMMENTS/ FOLLOW UP PROFILER * Pre-Procedure Instructions - Abbi Ortiz RN - 05/14/2024 1:24 PM CST [facility] (CPAP) PRE-SURGICAL NURSING INSTRUCTIONS Telephone Assessment General Information Discussed with Patient: Surgery location provided to patient. Arrival time and surgical time will be provided to the patient by their surgeon. You should wear clothing that is clean, loose, comfortable and easy to get in and out of on the dayof surgery. You should remove nail coverings, artificial nails and nail palauan prior to the day of surgery. This is to lower your risk of infection and to allow the day of surgery team to monitor your oxygen levels. You should leave your valuables and any jewelry at home. No metal or piercings are allowed in the operating room. You should bring your insurance card, a photo ID (example: [employer] License) and a method of payment for any insurance copay, deductible or copay for discharge medications. You should bring a complete, up-to-date, list of all your medications on the day of surgery, including any over the counter medications or supplements you may take. Please note on your medication list, the last date & time you took each medication. The healthcare team, on the day of surgery, will ask for this information. You should bring your Advanced Directive and/or Living Will with you on the day of surgery if you have not verified a copy is already in your Epic Chart. If you are having surgery at [facility], please arrive on the day of surgery with the name and phone number of your local 24 hour pharmacy. Due to evening discharges, your routine pharmacy may be closed. In order to obtain your prescriptions that evening, your surgeon may need to send prescriptions to this pharmacy or have you take prescriptions to this pharmacy when you are discharged. Without this information, you may not be able to obtain your prescriptions that evening. A Guide for Patients Having Surgery: Your Pathway to Excellent Care OUR GOAL IS TO PROVIDE YOU WITH EXCELLENT CARE Use this guide to learn about what you can do before, during and after surgery to help your recovery. You are the most important person on your health care team. By becoming informed and involved, you can contribute to the success of your surgery. If your surgeon's directions are different than those in this guide, talk with your nurse or surgeon to confirm the information. It is important that you understand how to take care of yourself at home after surgery. Be sure to bring this guide with you on the day of surgery and take it home with you after surgery. Write down questions for your nurse or surgeon on the last page of this booklet. Important pages to be reviewed BEFORE surgery: Page 1: QR codes for Surgery Center maps Page 3: Types of Anesthesia Page 5: Tips for the day & night before surgery Page 6: When to stop eating BEFORE surgery and examples of clear liquids Page 7-10: Preventing Infection: Chlorhexidine Gluconate (CHG) Bathing Instructions You may access A Guide for Patients Having Surgery: Your Pathway to Excellent Care by the followinglink: [email or web address] How To Prepare Your Skin For Surgery Below is the Pre-Surgical Bathing Protocol you should follow for your surgery. If your surgeon provides you different bathing instructions, please follow your surgeon's orders. Normal Bathing Normal Bathing Protocol Bathe with your normal soap the night before and/or the morning of surgery. Wear clean clothes or pajamas to sleep in. After showering DO NOT put on deodorant, hair products, conditioners, lotions, creams, powders, Vaseline or any non-essential products. Remove nail coverings, artificial nails and nail palauan. Place clean linens on your bed the night before surgery. Shaving: You may shave your face, legs and underarms during your evening shower. Avoid shaving on the day of surgery. Travel/Exposure Screening: Travel Screening Have you traveled outside the [place] in the last 6 months?: No Exposure Screening Have you been exposed to anyone who is sick in the last 30 days?: No Have you been exposed to or tested positive for COVID-19 within the last 10 days?: No Infectious Disease Screening Are you having any of the following:: None As of 04/18/2022 any COVID TESTING required for surgery will be set up by your surgeon's office. Please reach out to your surgeon's office if you develop any COVID symptoms, test positive for COVID or are exposed to a COVID positive person. If you have questions, please call the CPAP Staff at [phone], Sunday-Sunday 8am-4:30pm. All patients should read the below section: Information on [facility] or [facility] ([facility]): Please view [email or web address] (Patient and Visitor Information) for parking, directions, lodging and more. For MyChart information, to activate account or password recovery, please go to [email or web address] or call [phone] (toll-free: [phone]), Sun- Sunday 8am-5pm. Information for Suicide Prevention: National Suicide Prevention Lifeline (2-959- 029-ABFQ (0029)) or call or text [employer] resources: [employer]org. Surgery Times: For patients having surgery @ [facility], if your surgeon's office has not notified you of your surgery time by 2pm THE BUSINESS DAY BEFORE your surgery, please call the surgery center at [phone] and ask for your surgeon's office Dr. Lopez. [facility] ([facility]) does not provide arrival times for theday of surgery or provide the duration of surgery. This information is provided by your surgeon's office or by the center where you are having surgery. We appreciate your understanding. PROFILER documented in this encounter Plan of Treatment Not on file documented as of this encounter Procedures Procedure Name Priority Date/Time Associated Diagnosis Comments CYSTOSCOPY 06/04/2024 12:10 PM HAND PROFILER Neurogenic bladder OAB (overactive bladder) Urge urinary incontinence Special Needs 200 UNITS OF BOTOX TO BE MIXED WITH 20 CC NORMAL SALINE IN OR; CHERELLE NEEDLE FOR INJECTION INJECTION BOTOX 06/04/2024 12:10 PM HAND PROFILER Neurogenic bladder OAB (overactive bladder) Urge urinary incontinence Special Needs 200 UNITS OF BOTOX TO BE MIXED WITH 20 CC NORMAL SALINE IN OR; CHERELLE NEEDLE FOR INJECTION POC ISTAT Routine 06/04/2024 9:56 AM HAND PROFILER documented in this encounter Results * POC ISTAT (06/04/2024 9:56 AM HAND PROFILER) [facility] K POC 4.1 3.3 - 4.9 mmol/L Comment: Interpretive Data This method is not able to assess for hemolysis, which may falsely increase potassium concentrations. If further testing is needed to evaluate this result, consider in-laboratory plasma potassium. Current Interpretive Data was last revised on 2022. POC Device Number [id number] [facility] POC Performer [id number] [place] [facility] Blood 06/04/2024 9:56 AM HAND PROFILER 06/04/2024 9:56 AM HAND PROFILER us Marquis Lopez MD LAB BLOOD ORDERABLES Final Res ult [place] [facility] [address] [facility] [address] documented in this encounter Visit Diagnoses Diagnosis Neurogenic bladder- Primary Neurogenic bladder, NOS Neurogenic bladder Neurogenic bladder, NOS Urge urinary incontinence Urge incontinence OAB (overactive bladder) Urge urinary incontinence Urge incontinence documented in this encounter Admitting Diagnoses Diagnosis Neurogenic bladder Neurogenic bladder, NOS OAB (overactive bladder) Urge urinary incontinence Urge incontinence documented in this encounter Administered Medications Inactive Administered Medications - up to 3 most recent administrations Medication Order MAR Action Action Date Dose Rate Site sodium chloride 0.9% infusion 30 mL/hr, intravenous, Continuous, Starting on Sun06/04/24 at 1015, Pre-Op, Use 500 ml bag for End Stage Renal Disease patients. Restarted 06/04/2024 12:10 PM HAND PROFILER New Bag 06/04/2024 9:56 AM HAND PROFILER 30 mL/hr 30 mL/hr documented in this encounter Active and Recently Administered Medications Times are shown in HAND PROFILER. Scheduled Medication Order 06/02/2024 06/03/2024 06/04/2024 ceFAZolin (ANCEF) 1 gram/10 mL in sterile water (premix) 2,000 mg (COMPLETED) 2,000 mg, intravenous, at 400 mL/hr, Administer over 3 Minutes, Once, On Sun06/04/24 at 1015, For 1 dose, Pre-Op, Administer within 60 minutes of incision., Indications: Prophylaxis, Surgical 1221 (Given - Provid er: Jagjit Goldman CRNA) Continuous Medication Order 06/02/2024 06/03/2024 06/04/2024 sodium chloride 0.9% infusion 30 mL/hr, intravenous, Continuous, Starting on Sun06/04/24 at 1015, Pre-Op, Use 500 ml bag for End Stage Renal Disease patients. 0956 (New Bag - Prov ider: Shraddha Whittaker RN)1209 (Paused - Provider: Jagjit Goldman CRNA - Comment: Switch to gravity)1210 (Restarted - Provider: Jagjit Goldman CRNA)1250 (Stopped - Provider: Jagjit Goldman CRNA) sodium chloride 0.9% infusion 125 mL/hr, intravenous, Continuous, Starting on Sun06/04/24 at 1315, Phase I, If patient arrives to PACU with LR, continue LR and switch to NS for subsequent bags. 1315 (Due) PRN Medication Order 06/02/2024 06/03/2024 06/04/2024 acetaminophen (TYLENOL) tablet 500 mg 500 mg, oral, Every 6 hours PRN, headaches, other, Breakthrough Pain and Supplement to other pain meds, Starting on Sun06/04/24 at 1242, For 2 doses, Phase I, When able to tolerate PO after consulting with Anesthesiologist. Do not administer if patient has already received Acetaminophen-containing medications in PACU., Indications: Pain diphenhydrAMINE (BENADRYL) 50 mg/mL injection 12.5 mg 12.5 mg, intravenous, Administer over 1 Minutes, Every 5 min PRN, itching, other, For Nausea, administer 25 mg IV., Starting on Sun06/04/24 at 1242, For 4 doses, Phase I, Max cumulative dose 50 mg., Indications: Itching famotidine (PEPCID) injection 20 mg (COMPLETED) 20 mg, intravenous, Administer over 2 Minutes, Once as needed, heartburn, Medication to be administered by the anesthesia staff (Anesthesiologist or LABORER WHARF), Starting on Sun06/04/24 at 0934, For 1 dose, Pre-Op, Indications: Heartburn, Heartburn Prevention, gastroesophageal reflux disease, Reflux 1210 (Given - Provid er: Jagjit Goldman, NAOMI) fentaNYL (SUBLIMAZE) preservative free injection 25 mcg 25 mcg, intravenous, Every 5 min PRN, 1st line for pain, Use Fentanyl as 1st line medication for extremely severe pain for outpatients, and follow with oral pain medication., Starting on Sun06/04/24 at 1242, For 4 doses, Phase I, Use as 1st line for outpatients, dose not to exceed 100 mics. If pain still extremely severe after 100 mics of Fentanyl, may proceed to Dilaudid after consulting with Anesthesiologist. If patient able to tolerate PO meds and pain improved after Fentanyl, proceed to Oral pain medication., Indications: Pain hydrALAZINE (APRESOLINE) injection 5 mg 5 mg, intravenous, Administer over 2 Minutes, Every 5 min PRN, high blood pressure, Starting on Sun06/04/24 at 1242, Phase I, Max cumulative dose 20 mg. Dose if systolic BP greater than 180 AND heart rate less than 70., Indications: hypertension HYDROcodone-acetaminophen (NORCO) 5-325 mg per tablet 1 tablet 1 tablet, oral, Every 20 min PRN, breakthrough pain, May use as 1st line pain medication if pain not extremely severe and patient able to tolerate PO meds. If unable to tolerate PO meds or outpatient complaining of extremely severe pain, start with Fentanyl and follow with Oral meds., Starting on Sun06/04/24 at 1242, For 2 doses, Phase I, May administer TWO pills together if pain moderate to severe and patient able to tolerate PO meds, after consulting with Anesthesiologist., Indications: Pain HYDROmorphone (DILAUDID) injection 0.2 mg 0.2 mg, intravenous, Administer over 2 Minutes, Every 5 min PRN, 2nd line for pain, Starting on Sun06/04/24 at 1242, Phase I, Use as 1st line pain medication for INpatients with pain score LESS than 6 out of 10. May use as first line medication for OUTpatients with extremely severe pain (7 out of 10 or above), history of opioid tolerance, or history of Chronic Pain with opioid tolerance, after consulting with Anesthesiologist. Inform anesthesiologist when dose reaches 2 mg for INpatients or 1 mg for OUTpatients. , Indications: Pain HYDROmorphone (DILAUDID) injection 0.4 mg 0.4 mg, intravenous, Administer over 2 Minutes, Every 10 min PRN, 3rd line for pain, Starting on Sun06/04/24 at 1242, Phase I, Use as first line pain medication for INpatients with pain score ABOVE 7 out of 10. Inform anesthesiologist when dose reaches 2 mg for INpatients. , Indications: Pain labetaloL (NORMODYNE,TRANDATE) injection 5 mg 5 mg, intravenous, Every 5 min PRN, high blood pressure, Starting on Sun06/04/24 at 1242, For 4 doses, Phase I, Max cumulative dose 20 mg. Dose if systolic blood pressure greater than 180 AND HR greater than 70. meperidine (DEMEROL) preservative free injection 12.5 mg 12.5 mg, intravenous, Administer over 5 Minutes, Every 10 min PRN, shivering, Starting on Sun06/04/24 at 1242, For 2 doses, Phase I, Max cumulative dose 25 mg., Indications: Shivering naloxone (NARCAN) 0.4 mg/mL injection 0.04-0.4 mg 0.04-0.4 mg, intravenous, Once as needed, other, excessive sedation/respiratory depression, Starting on Sun06/04/24 at 1242, For 1 dose, Phase I, Dilute 0.4 mg with 9 mL NS (final concentration 0.04 mg/mL). For respiratory depression (respiratory rate less than 6), administer 0.4 mg IVP over 30 seconds. For excessive sedation administer 0.04 mg (1 mL) every 1 minute until desired level of alertness. Consult with Anesthesiologist before administration. Administer 40 mics at a time. For IV, administer over 30 seconds., Indications: Opioid Toxicity onabotulinumtoxin A (BOTOX) injection (CANCELED) As needed, Starting on Sun06/04/24 at 1231, Intra-Op 1231 (Given - Provid er: Bethany Michael MD) ondansetron (ZOFRAN) injection 4 mg 4 mg, intravenous, Administer over 2 Minutes, Once as needed, nausea, vomiting, Starting on Sun06/04/24 at 1242, For 1 dose, Phase I, Proceed to prochlorperazine if ondansetron has been given within the last 6 hours. prochlorperazine (COMPAZINE) injection 5 mg 5 mg, intravenous, Administer over 2 Minutes, Once as needed, nausea, vomiting, Starting on Sun06/04/24 at 1242, For 2 doses, Phase I, If nausea/vomiting not relieved by ondansetron within 30 minutes or if ondansetron has been given within the last 6 hours. May repeat in 15 minutes of nausea not relieved. sodium chloride 0.9% irrigation (CANCELED) As needed, Starting on Sun06/04/24 at 1227, Intra-Op 1227 (Given - Provid er: Bethany Michael MD) sodium chloride bacteriostatic 0.9 % injection (CANCELED) As needed, Starting on Sun06/04/24 at 1231, Intra-Op 1231 (Given - Provid er: Bethany Michael MD - Comment: mixed with Botox) documented in this encounter Orders Medications Ordered That Julio Cesar ht Not Have Been Administered Count Last Ordered Date First Ordered Date acetaminophen (TYLENOL) tablet 500 mg 1 04/2024 ceFAZolin (ANCEF) 1 gram/10 mL in sterile water (premix) 2,000 mg 1 06/04/2024 diphenhydrAMINE (BENADRYL) 5 0 mg/mL injection 12.5 mg 1 06/04/2024 famotidine (PEPCID) injection 20 mg 1 06/04 fentaNYL (SUBLIMAZE) preserv ative free injection 25 mcg 1 06/04/2024 hydrALAZINE (APRESOLINE) injection 5 mg 1 1 08/05/2023 HYDROcodone-acetaminophen (N ORCO) 5-325 mg per tablet 1 tablet 1 06/04/2024 HYDROmorphone (DILAUDID) injection 0.2 mg 1 06/04/2024 HYDROmorphone (DILAUDID) injection 0.4 mg 1 06/04/2024 labetaloL (NORMODYNE,TRANDAT E) injection 5 mg 1 06/04/2024 lidocaine (PF) (XYLOCAINE) 1 0 mg/mL (1 %) preservative free injection 2-10 mg 1 06/04/2024 meperidine (DEMEROL) preserv ative free injection 12.5 mg 1 06/04/2024 naloxone (NARCAN) 0.4 mg/mL injection 0.04-0.4 mg 1 06/04/2024 onabotulinumtoxin A (BOTOX) injection 1 04/2024 ondansetron (ZOFRAN) injection 4 mg 1 06/04 prochlorperazine (COMPAZINE) injection 5 mg 1 06/04/2024 scopolamine patch 72 hour 1 patch 1 024 sodium chloride 0.9% flush 0.5-20 mL 1 05/25 sodium chloride 0.9% infusion 1 06/04/2024 sodium chloride 0.9% irrigation 1 sodium chloride bacteriostat ic 0.9 % injection 1 06/04/2024 Discharge Count Last Ordered Date First Orde red Date DISCHARGE PATIENT 1 06/04/2024 documented in this encounter Care Teams Bull Float Finisher Relationship Specialty Start Date End Date Mick Flowers MD PCP - General 05/14/17 documented as of this encounter
--- OUTSIDE RECORDS SUMMARY | 2024-06-29 00:26 | XMS_ITS | Encounter Summary ---
Author Organization [facility] Healthcare Address [address] [place] [address] Care Team Providers Care Electrical Calibrator Name Role Phone Mick Flowers MD Primary Care Provider [phone] Reason for Visit * Auth/Cert (Routine) Specialty Diagnoses / Procedures Referred By Contac t Referred To Contact Diagnoses Neurogenic bladder Urge urinary incontinence Neurogenic bladder [N31.9] Urge urinary incontinence [N39.41] Procedures PA CYSTOURETHROSCOPY INJ CHEMODENERVATION BLADDER PA CYSTOURETHROSCOPY INJECTION BOTOX 300 UNITS CYSTOSCOPY Referral ID Status Reason Start Date Expiration Date Visits Re quested Visits Authorized [id number] 1 1 Encounter Details Date Type Department Care Team (Late st Contact Info) Description 11/28/2023 3:47 PM CDT - 11/28/2023 5:02 PM CDT Surgery [facility] Operating Room [address] [place] [address] Marquis Lopez MD [address] [facility] [address] [place] [address] INJECTION BOTOX 300 UNITS Surgery Details Date/Time Status Location OR Service Patient Class Case Cl ass Case Type Trauma Case? 11/28/2023 3:47 PM Posted [facility] OPERATING ROOM OR 02 Urology Outpatient Elective Panel 1 Procedure LRB Anes Op Region Wound Class Comments INJECTION BOTOX 300 UNITS N/A General Class II - Clean Contaminated CYSTOSCOPY N/A General Class II - [place] an Contaminated Surgeon Surgeon Role Service Panel Marquis Lopez MD Primary Urology 1 Special Needs 300 UNITS OF BOTOX TO BE MIXED WITH 30 CC NORMAL SALINE IN OR; CHERELLE NEEDLE FOR INJECTION documented in this encounter Social History Tobacco [...] on file Legal Sex Male 3:12 AM [employer] Gender Identity Not on file Sexual Orientation Not on file 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 on file Not on file documented as of this encounter Last Filed Vital Signs Vital Sign Reading Time Taken Comments Blood Pressure 152/77 11/28/2023 3:55 PM CDT Pulse 63 11/28/2023 3:55 PM CDT Temperature 36.2 ??C (97.2 ??F) 11/28/2023 2:55 PM CD T Respiratory Rate 24 11/28/2023 3:55 PM CDT Oxygen Saturation 98% 11/28/2023 3:55 PM CDT Inhaled Oxygen Concentration - - Weight 78.5 kg (173 lb) 11/15/2023 8:30 AM CDT Height 177.8 cm (5' 10 ) 11/15/2023 8:30 AM CDT Body Mass Index 24.82 11/15/2023 8:30 AM CDT documented in this encounter Discharge Instructions * Discharge Instructions* Corrina Judd RN - 11/28/2023 3:49 PM CDT Discharge Instructions: Surgery performed: Cystoscopy, botox injection New medications: - Acetaminophen and ibuprofen as needed for pain, available [id number]; take this medication scheduled for the next 24-48 hours, then afterwards as needed. Diet: Concho diet: At first eat a bland diet; avoid foods that are high in fiber, have a lot of spices, or are high infat. You can begin slowly eating these foods when you are feeling better. Activity: - Light activity for 1-2 days after your procedure. - Do NOT drive or operate machinery if you are taking narcotic pain medicine. - You may take showers - Walking is encouraged. Climbing stairs is OK. Pain Control: - Start by applying ice packs or heating pads and using over the counter medications such as acetaminophen (Tylenol) or ibuprofen (Advil or Motrin) unless otherwise specified by your doctor. Follow up: If you have any questions or concerns, please call the urology office at . Future Appointments Date Time Provider Department Center 12/11/2023 11:00 AM Cherry Minor MD [facility] 03/05/2024 11:30 AM Georgia Yee MD [facility] Cardiology Contact your doctor if: - You have a fever higher than 101 F (38.3 C). - You have nausea, vomiting or diarrhea. - Your pain medicine is not helping your pain. - You feel dizzy, very tired or like you may faint. - You have very bloody urine (tomato juice appearance) - You have large blood clots in your urine (small amounts of blood-tinged urine and a few small clots are normal, especially after physical activity). Sunday through Sunday 8 AM to 5:00 PM: call [phone] and ask for a member of your doctor's team. For urgent matters after 5:00 PM during the week, or on weekends or holidays, call [phone] and ask to have the Urology Dcs Engineer Physician paged for you. You have received anesthesia, therefore, for the next 24 hours and/or while taking narcotic pain medication; -Do NOT drive a vehicle -Do NOT drink alcohol -Do NOT make important personal or business decisions or sign legal documents. Examples of narcotic pain medication include Percocet, Oxycontin, [place], Hydrocodone, and Oxycodone. FAQs (frequently asked questions) [...] physical therapy, we are available to assist: [facility] STAR: [facility] [phone] [place] [phone] [facility] [phone] How are some things that you can [...] given by your doctor or other health care support representative. documented in this encounter Medications at Time [...] Syringe Ultra-Fine 0.5 mL 30 gauge x / syringe 08/30/2022 famotidine (PEPCID) 20 mg tabletIndication [...] by mouth every morning 5 04/23/2018 4 sulfamethoxazole -trimethoprim (BACTRIM DS) 800-160 mg per tablet 11/21/2023 4 documented as of this encounter Discharge Disposition Disposition Code Departure Means Destination Comment s Discharge to home or self care documented in this encounter H&P Notes * Marquis Lopez MD - 11/28/2023 2:18 PM CDT I have reviewed the H&P, examined the [...] Normal affect and mood, oriented x 3. Source Note - Adam Peguero MD - 11/22/2023 2:29 PM CDT Images from the original note were not included. [facility] Preoperative Assessment [facility] Planning Preoperative Evaluation Record Evaluation type/location: TPAP from [facility] Planned procedure site: [facility] OR Date: 11/22/23 Anesthesia Evaluation NOTE: [...] cognitive impairment and carotid artery stent Comments: [facility] [place] 10/2022 Cardiovascular + Hypertension (states his BP has been running high recently and has an apt with cardiology in a couple months to address) Hypertension year diagnosed: 1984. Typical systolic BP - 150 Typical diastolic BP - 95 + Hyperlipidemia (on statin) Pertinent negatives: CAD ; PR ; CABG ; valvular heart disease; atrial [...] provided by telephone and electronically sent via [employer]. Patient verbalized understanding of instructions. Blood bank [...] 20 mEq CR tablet 11/15/2023 04/23/18 -- ProviderBettie MD sulfamethoxazole-trimethoprim (BACTRIM DS) 800-160 mg per tablet -- 11/21/23 11/24/23 Marquis Lopez MD Take 1 tablet by mouth 2 (two) times a day for 3 days valsartan (DIOVAN) 320 mg tablet 11/14/2023 07/19/22 -- ProviderBettie MD No current facility-administered medications for this [...] Medication protocol when under care of a RESEARCH PROFESSOR OF BIOSTATISTICS Planned anesthesia: General Informed Consent: Anesthesia plan [...] All questions answered. documented in this encounter Nursing Notes * Rafia Hammer RN - 11/27/2023 1:51 PM CDT Patient states understanding to arrive at [facility] at 1345 on 11/28/23. Patient states procedure time changed and it changes things at home. Patient instructed to call MD office with further concern. documented in this encounter Miscellaneous Notes * Perioperative Nursing Note - Corrina Judd RN - 11/28/2023 4:07 PM CDT Vss, no pain or nausea, discharge instructions given to pt and Unique, pt di self straight cathto ensure lack of excessive bleeding, anesthesia agrees with discharge, will follow up with urologyas needed. * Op Note - Marquis Lopez MD - 11/28/2023 3:47 PM CDT Date of Surgery: 11/28/2023 Preoperative diagnosis: neurogenic bladder with detrusor overactivity and urgency urinary incontinence Post-operative diagnosis: neurogenic bladder with detrusor overactivity and urgency urinary incontinence Procedure: Cystoscopy, injection of 300 units of onabotulinumtoxinA (Botox) into the bladder Surgeon: Marquis Lopez MD Specimen Accessioner: None is available Anesthesia: General Complications: None Estimated blood loss: [...] was advanced into the bladder. The urethra l ooks normal and has no stricture, but the urethra feels little tight going in with the rigid cystoscope. The bladder mucosa looks normal. Next we diluted with 300 units of Botox in 30 cc of injectable normal saline, and we [...] conclusion of the case there was no bleeding inside the bladder. The bladder was then empty out. Counts at the conclusion of the case: Correct Presence Statement: I, Dr. Marquis Lopez, was present throughout the surgery. * Brief Op Note - Marquis Lopez MD - 11/28/2023 3:47 PM CDT Operative Progress Note Surgical Team: Surgeons and Role: * Marquis Lopez MD - Primary Anesthesiologist: Johnny Cervantes MD RESEARCH PROFESSOR OF BIOSTATISTICS: Lexii Gallego CRNA Furniture Assembler: Kimberly Conteh RN Scrub: Charlene Mckenna [facility] Scrub: Windy Sanabria ST DATE OF SURGERY : 11/28/2023 Preoperative Diagnosis: Pre-op Diagnosis * Neurogenic bladder [N31.9] * Urge urinary incontinence [N39.41] Postoperative Diagnosis: Post-op Diagnosis * Neurogenic bladder [N31.9] * Urge urinary incontinence [N39.41] Procedure(s): Procedure(s) (LRB): INJECTION BOTOX 300 UNITS (N/A) CYSTOSCOPY (N/A) Operative Findings: Normal bladder Estimated Blood Loss: No blood loss documented. Intraoperative Fluids: See anesthesia record for mls Specimens: No specimen collected in procedure Implants: Nothing was implanted during the procedure Blood/Blood Products Transfused: 0 mls Complications: None Condition on Discharge from the operating room was stable Marquis Lopez MD Date: 11/30/2023 Time: 8:43 AM TEACHING ATTESTATION : There was no resident involved in the case * Pre-Procedure Instructions - Vi Marcano, MECHANICAL INSPECTOR - 11/22/2023 2:35 PM CDT [facility] Preoperative Assessment and Planning CPAP Clinic Location: [facility] The night before your surgery: * Do [...] rinse your mouth out. * Do not glue your dentures. * Do not wear jewelry, body piercings, [...] Medications: Pre-Surgery Instructions: Medication Instructions ALPRAZolam (XANAX) 0.5 mg tablet Take on day of surgery if needed alprostadiL (Edex) 40 mcg injection Don't take on day of surgery amitriptyline (ELAVIL) 25 mg tablet Take the evening prior to surgery atorvastatin (LIPITOR) 40 mg tablet Take the evening prior to surgery famotidine (PEPCID) 20 mg tablet Take morning of surgery felodipine (PLENDIL) 5 mg 24 hr tablet Take morning of surgery hydroCHLOROthiazide (HYDRODIURIL) 25 mg tablet Don't take on day of surgery multivitamin tablet Stop taking 1 week prior to surgery POTASSIUM CHLORIDE ER 20 mEq CR tablet Don't take on day of surgery valsartan (DIOVAN) 320 mg tablet Don't take the evening before surgery sulfamethoxazole-trimethoprim (BACTRIM DS) 800-160 mg per tablet As instructed General Instructions For Medications: * Stop all [...] You have started taking any new medications You have questions about a bowel prep or special diet before surgery You have symptoms of COVID-19 such as a new or worsening cough, shortness of breath, fever, body aches, loss of taste or smell, diarrhea or vomiting, or sore throat. You have a household contact with COVID-19. You test positive for COVID-19. * Perioperative Nursing Note - Gregory Kaplan RN - 11/15/2023 8:43 AM CDT Center for Preoperative Assessment and Planning Perioperative Nursing Note Telephone Preoperative Evaluation ([facility]) - TELEPHONE ONLY, NO PHYSICAL EXAM Date: 11/15/23 This assessment was completed with the patient. Vitals: 11/15/23 0830 Weight: 78.5 kg (173 lb) Height: 177.8 cm (5' 10 ) CHEST CIRCUMFERENCE: Social History Tobacco Use Smoking Status Never Smokeless Tobacco Never Substance and Sexual Activity Drug Use Yes Frequency: 4.0 times per week Types: Medical marijuana Alcohol Use Q1: How often do you have a drink containing alcohol?: 2-3 times a week Q2: How many drinks containing alcohol do you have on a typical day when you are drinking?: 1 or 2 Q3: How often do you have six or more drinks on one occasion?: Never Outpatient Medications Marked as Taking for the 11/28/23 encounter (Hospital Encounter) Medication Sig Dispense Refill ALPRAZolam (XANAX) 0.5 mg tablet Take 1 tablet (0.5 mg total) by mouth nightly as needed for sleep alprostadiL (Edex) 40 mcg injection 20 mcg by intracavity route as needed for erectile dysfunction (Patient taking differently: 20 mcg by intracavity route as needed for erectile dysfunction) 10 kit 6 amitriptyline (ELAVIL) 25 mg tablet Take 2 tablets (50 mg total) by mouth nightly (Patient taking differently: Take 2 tablets (50 mg total) by mouth nightly) 60 tablet 2 atorvastatin (LIPITOR) 40 mg tablet Take 1 tablet (40 mg total) by mouth nightly famotidine (PEPCID) 20 mg tablet Take 1 [...] No Wound (LDAs) Type of Wound (LDA): (none) SCREENINGS Romain index score: 100 NUTRITION PATIENT CARE PLANNING Advance Directives (For Healthcare) Have you reviewed your Advance Directive and is it valid for this stay?: Not applicable Advance Directive: Patient has advance directive, copy not in chart Advance Directive not in Chart: Copy requested from other (Comment) (patient) Communication/Pathology Technologist Needs Communication Needs: Glasses Does caregiver's language differ from patient's?: No Assistive Devices/DME: None Discharge Planning Type of Residence: Private residence Living Arrangements: Spouse/significant other Support Systems: Spouse/significant other Assistance Needed: Spouse to provide discharge transportation Patient expects to be discharged to:: Private residence CLINICAL LABORATORY SCIENCE PROFESSOR NO ADDITIONAL COMMENTS/ FOLLOW UP * Pre-Procedure Instructions - Gregory Kaplan RN - 11/15/2023 8:34 AM CDT [facility] FOR PREOPERATIVE ASSESSMENT AND PLANNING (CPAP) [...] remove nail coverings, artificial nails and nail mauritanian prior to the day of surgery. You should leave your valuables and any jewelry at home. No metal or piercings are allowed in the operating room. You should bring your insurance card, a photo ID (example: Overhead Crane Operator's License) and a method of payment for [...] Chart. If you are having surgery at [facility], please arrive on the day of [...] instructions, please follow your surgeon's orders. Normal Bathing: Bathe with regular soap the night before and/or day of surgery. Normal Bathing Protocol Bathe with your normal soap the night before and/or the morning of surgery. Wear clean clothes or pajamas to sleep in. After showering DO NOT put on deodorant, hair products, conditioners, lotions, creams, powders, Vaseline or any non-essential products. Remove nail coverings, artificial nails and nail mauritanian. Place clean linens on your bed the [...] questions, please call the CPAP Staff at [phone], Sunday-Sunday 8am-4:30pm. All patients should read the below section: COVID 19 Updates & Visitor Policy: Please access [email or web address] for the most updated information. Information on [facility]: Please view [email or web address] (Patient & Visitor Information) for additional details regarding Advanced Directive forms, AWARE, directions, parking information, lodging, Internet access, dining and more. Information on [facility] or [facility] [place] ([facility]): Please view [email or web address] (Patient and Visitor Information) for parking/directions and more. For MyChart information, to activate account or password recovery, please go to [email or web address] or call [phone] (toll-free: [phone]), Sun- Sunday 8am-5pm. Information for Suicide Prevention: National Suicide Prevention Lifeline (3-939- 452-XYFU (1641)) or call or text 719. Chat resources: [employer]ecent. Surgery Times: For patients having surgery @ [facility] or [facility] [place] ([facility]), if your surgeon's office has not notified you of your surgery time by NOON THE BUSINESS DAY BEFORE your surgery, please call [phone] and ask for your surgeon's office Dr. Lopez The Center for Preoperative Assessment & Planning ([facility]) does not provide arrival times for the day of surgery or provide the duration of surgery. This information is provided by your surgeon'soffice or by the center where you are having surgery. We appreciate your understanding. documented in this encounter Plan of Treatment Not on file documented as of this encounter Procedures Procedure Name Priority Date/Time Associated Diagnosis Comments CYSTOSCOPY 11/28/2023 3:00 PM CDT Neurogenic bladder Urge urinary incontinence Special Needs 300 UNITS OF BOTOX TO BE MIXED WITH 30 CC NORMAL SALINE IN OR; CHERELLE NEEDLE FOR INJECTION INJECTION BOTOX 11/28/2023 3:00 PM CDT Neurogenic bladder Urge urinary incontinence Special Needs 300 UNITS OF BOTOX TO BE MIXED WITH 30 CC NORMAL SALINE IN OR; CHERELLE NEEDLE FOR INJECTION POC ISTAT Routine 11/28/2023 2:45 PM CDT POC ISTAT Routine 11/28/2023 2:38 PM CDT documented in this encounter Results * POC ISTAT (11/28/2023 2:45 PM CDT) [facility] POC 3.8 3.3 - 4.9 mmol/L Comment: Interpretive Data This method is not able to assess for hemolysis, which may falsely increase potassium concentrations. If further testing is needed to evaluate this result, consider in-laboratory plasma potassium. Current Interpretive Data was last revised on 2022. POC Device Number [id number] [employer] POC Performer [id number] CERERIKA HAWKQuikey Blood 11/28/2023 2:45 PM CDT 11/28/2023 2:45 PM CDT Marquis Lopez MD LAB BLOOD ORDERABLES Final Res ult Performing Organization Address [facility] de Phone Number [facility] Neu IndustriesCH [address] [employer] [place] [address] * (ABNORMAL) POC ISTAT (11/28/2023 2:38 PM CDT) [facility] K POC 5.5(H) 3.3 - 4.9 mmol/L Comment: Interpretive Data This method is not able to assess for hemolysis, which may falsely increase potassium concentrations. If further testing is needed to evaluate this result, consider in-laboratory plasma potassium. Current Interpretive Data was last revised on 2022. POC Device Number [id number] [employer] POC Performer [id number] [place] BJW[facility] Blood 11/28/2023 2:38 PM CDT 11/28/2023 2:38 PM CDT Marquis Lopez MD LAB BLOOD ORDERABLES Final Res ult Performing Organization Address [facility] de Phone Number [place] HAWKCH [address] [facility] [employer] [address] documented in this encounter Visit Diagnoses Diagnosis Neurogenic bladder- Primary Neurogenic bladder, NOS Neurogenic bladder Neurogenic bladder, NOS Urge urinary incontinence Urge incontinence Urge urinary incontinence Urge incontinence Neurogenic bladder Neurogenic bladder, NOS Urge urinary incontinence Urge incontinence documented in this encounter Admitting Diagnoses Diagnosis Neurogenic bladder Neurogenic bladder, NOS Urge urinary incontinence Urge incontinence documented in this encounter Administered Medications Inactive Administered Medications - up to 3 most recent administrations Medication Order MAR Action Action Date Dose Rate Site Lactated Ringer's (LR) infusion 30 mL/hr, intravenous, Continuous, Starting on Sun11/28/23 at 1415, For 4 hours, Pre-Op, Use a 500 ml bag for End Stage Renal Disease Patients. Discontinue if fluid still running once patient arrives to floor. Restarted 11/28/2023 3:26 PM CDT New Bag 11/28/2023 2:39 PM CDT 30 mL/hr onabotulinumtoxin A (BOTOX) injection As needed, Starting on Sun11/28/23 at 1520, Intra-Op Given 11/28/2023 3:20 PM CDT 300 Units Surgical Site sodium chloride 0.9% irrigation As needed, Starting on Sun11/28/23 at 1521, Intra-Op Given 11/28/2023 3:21 PM CDT 3,000 mL Surgical Site sodium chloride bacteriostatic 0.9 % injection As needed, Starting on Sun11/28/23 at 1521, Intra-Op Given 11/28/2023 3:21 PM CDT 30 mL Surgical Site documented in this encounter Historical Medications * This list may reflect changes made after this encounter. multivitamin tabletIndication s:Vitamin Deficiency Prevention Take 1 tablet by mouth daily before breakfast added in this encounter Active and Recently Administered Medications Times are shown in CDT. Scheduled Medication Order 11/26/2023 11/27/2023 11/28/2023 ceFAZolin (ANCEF) 1 gram/10 mL in sterile water (premix) 2,000 mg (COMPLETED) 2,000 mg, intravenous, at 400 mL/hr, Administer over 3 Minutes, Once, On Sun11/28/23 at 1415, For 1 dose, Pre-Op, Administer within 60 minutes of incision., Indications: Prophylaxis, Surgical 1458 (Given - Provid er: Lexii Gallego CRNA) Continuous Medication Order 11/26/2023 11/27/2023 11/28/2023 Lactated Ringer's (LR) infusion 30 mL/hr, intravenous, Continuous, Starting on Sun11/28/23 at 1415, For 4 hours, Pre-Op, Use a 500 ml bag for End Stage Renal Disease Patients. Discontinue if fluid still running once patient arrives to floor. 1439 (New Bag - Prov ider: Johnny Cervantes MD - Comment: Started in pre-op by RN)1525 (Paused - Provider: Lexii Gallego CRNA - Comment: Switch to gravity)1526 (Restarted - Provider: Lexii Gallego CRNA)2012 (Due: Stopped) PRN Medication Order 11/26/2023 11/27/2023 11/28/2023 onabotulinumtoxin A (BOTOX) injection (CANCELED) As needed, Starting on Sun11/28/23 at 1520, Intra-Op 1520 (Given - Provid er: Marquis Lopez MD - Comment: Into the bladder) sodium chloride 0.9% irrigation (CANCELED) As needed, Starting on Sun11/28/23 at 1521, Intra-Op 1521 (Given - Provid er: Marquis Lopez MD) sodium chloride bacteriostatic 0.9 % injection (CANCELED) As needed, Starting on Sun11/28/23 at 1521, Intra-Op 1521 (Given - Provid er: Marquis Lopez MD - Comment: Mixed with botox) documented in this encounter Orders Medications Ordered That Julio Cesar ht Not Have Been Administered Count Last Ordered Date First Ordered Date ceFAZolin (ANCEF) 1 gram/10 mL in sterile water (premix) 2,000 mg 1 11/28/2023 famotidine (PEPCID) injection 20 mg 1 11/27 Lactated Ringer's (LR) infusion 1 lidocaine (PF) (XYLOCAINE) 1 0 mg/mL (1 %) preservative free injection 2-10 mg 1 11/28/2023 midazolam (VERSED) 1 mg/mL i njection - ADS Override Pull 1 11/28/2023 scopolamine patch 72 hour 1 patch 1 024 sodium chloride 0.9% flush 0.5-20 mL 1 10/2023 Discharge Count Last Ordered Date First Orde red Date DISCHARGE PATIENT 1 11/28/2023 documented in this encounter Care Teams Electrical Calibrator Relationship Specialty Start Date End Date Mick Flowers MD PCP - General 05/14/17 documented as of this encounter
--- OUTSIDE RECORDS SUMMARY | 2024-06-29 00:26 | XMS_ITS | Encounter Summary ---
Author Organization [facility] Healthcare Address [address] [place] [address] Care Team Providers Care Hydramatic Mechanic Name Role Phone Mick Flowers MD Primary Care Provider [phone] Reason for Visit * Auth/Cert (Routine) Specialty Diagnoses / Procedures Referred By Contac t Referred To Contact Diagnoses Neurogenic bladder OAB (overactive bladder) Urge urinary incontinence Neurogenic bladder [N31.9] Procedures NE CYSTOURETHROSCOPY INJ CHEMODENERVATION BLADDER NE CYSTOURETHROSCOPY INJECTION BOTOX 300 UNITS CYSTOSCOPY Referral ID Status Reason Start Date Expiration Date Visits Re quested Visits Authorized [id number] 1 1 Encounter Details Date Type Department Care Team (Late st Contact Info) Description 06/04/2024 11:30 AM DECISION SUPPORT MANAGER - 06/04/2024 12:45 PM DECISION SUPPORT MANAGER Surgery [facility] Operating Room [address] [place] [address] Marquis Lopez MD [address] [facility] [address] [place] [address] INJECTION BOTOX 300 UNITS Surgery Details Date/Time Status Location OR Service Patient Class Case Cl ass Case Type Trauma Case? 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 on file Not on file documented as of this encounter Last Filed Vital Signs Vital Sign Reading Time Taken Comments Blood Pressure 129/79 06/04/2024 12:05 PM DECISION SUPPORT MANAGER Pulse 61 06/04/2024 12:05 PM DECISION SUPPORT MANAGER Temperature 36 ??C (96.8 ??F) 06/04/2024 12: 05 PM DECISION SUPPORT MANAGER Respiratory Rate - - Oxygen Saturation 97% 06/04/2024 12: 05 PM DECISION SUPPORT MANAGER Inhaled Oxygen Concentration - - Weight 80.6 kg (177 lb 12.8 oz) 06/04/2024 9:34 AM DECISION SUPPORT MANAGER Height 177.8 cm (5' 10 ) 06/04/2024 9:34 AM DECISION SUPPORT MANAGER Body Mass Index 25.51 06/04/2024 9:34 AM DECISION SUPPORT MANAGER documented in this encounter Discharge Instructions * Discharge Instructions* Michelle Awad RN - 06/04/2024 12:55 PM DECISION SUPPORT MANAGER DISCHARGE INSTRUCTIONS: Expected side effects from stents: You see blood in your urine. Medicines: Take your home medicine as prescribed. You may also take yuwh-ymg-leulkek acetaminophen as needed for pain. Other instructions: Drink lots of liquids to dilute the amount of blood in the urine. Expect to have some blood in the urine that turns the urine light pink or red. Drink plenty of fluids to dilute the amount of blood. Follow up: Follow up as needed with Dr Lopez. The scheduling office should call you. Please call [phone] ifyou do not hear from them within [...] smells bad. Seek care immediately or call [phone] if: You urinate little or not at all. You have severe abdominal or back pain. You are dizzy or confused. You have uncontrollable nausea, and vomiting. Sunday through Sunday, 8 AM to 4:30 PM, call [phone] with questions. After 4:30 PM during the week, on weekends and holidays, call [phone] and ask to have the Urology Clinical Dermatologist Physician paged for you. You have received anesthesia, therefore, for the next 24 hours and/or while taking narcotic pain medication; -Do NOT drive a vehicle -Do NOT drink alcohol -Do NOT make important personal or business decisions or sign legal documents. Examples of narcotic pain medication include Percocet, Oxycontin, [place], Hydrocodone, and Oxycodone. FAQs (frequently asked questions) [...] physical therapy, we are available to assist: [facility] STAR: [facility] [phone] [place] [phone] [facility] [phone] How are some things that you can [...] by your doctor or other health career technology teacher. SION SUPPORT MANAGER SION SUPPORT MANAGER documented in this encounter Medications at Time [...] Normal affect and mood, oriented x 3. SION SUPPORT MANAGER Source Note - Cole Edmondson MD - 05/28/2024 1:53 PM DECISION SUPPORT MANAGER Images from the original note were not included. [facility] Preoperative Assessment and Planning Preoperative Evaluation Record Evaluation type/location: TPAP from [facility] Planned procedure site: [facility] OR Date: 05/28/24 Anesthesia Evaluation NOTE: [...] cognitive impairment and carotid artery stent Comments: [facility] Multiple Sclerosis clinic Cardiovascular + Hypertension (States BP has been bettr controlled since seeing Dr. Georgia Yee) Hypertension year diagnosed: 1984. Typical systolic BP - 120 Typical diastolic BP - 80 + Hyperlipidemia (on statin) Pertinent negatives: CAD ; OK ; CABG ; valvular heart disease; atrial [...] provided by telephone and electronically sent via [employer]. Patient verbalized understanding of instructions. Blood bank [...] Medication protocol when under care of a PROBATION SUPERVISOR Planned anesthesia: General Induction: Induction: intravenous. Postoperative Plan: Postoperative administration opioids intended. No postoperative mechanical ventilation intended. Patient's planned disposition post procedure is Outpatient. Informed Consent: Discussed plan with PROBATION SUPERVISOR. Anesthesia plan and risks discussed with patient and spouse. Consent and Attending signature: I and/or my designee have discussed the anesthesia plan, benefits, possible alternatives, parental presence at time of induction (if indicated), and clinically relevant risks that may include dental injury, unintentional awareness, and/or other complications. The patient and/or parent/legal guardian understand, and agree to proceed. All questions answered. SION SUPPORT MANAGER SION SUPPORT MANAGER * Papo Munguia MD - 06/04/2024 9:40 AM CST I have reviewed the H&P, examined the patient, and endorse the findings as written. Plan of Care : Based on the above findings, I consider Doc Emery to be an acceptable risk for : Procedure(s): INJECTION BOTOX 300 UNITS CYSTOSCOPY WWP NAD Cosigned by Marquis Lopez MD at 06/06/2024 2:16 PM DECISION SUPPORT MANAGER SION SUPPORT MANAGER SION SUPPORT MANAGER Associated attestation - Marquis Lopez MD - 06/06/2024 2:16 PM DECISION SUPPORT MANAGER Source Note - Vi Marcano, VASCULAR TECHNOLOGIST SONOGRAPHER - 05/28/2024 1:53 PM DECISION SUPPORT MANAGER Images from the original note were not included. [facility] Preoperative Assessment [facility] Planning Preoperative Evaluation Record Evaluation type/location: TPAP from [facility] Planned procedure site: [facility] OR Date: 05/28/24 Anesthesia Evaluation NOTE: [...] cognitive impairment and carotid artery stent Comments: [facility] Multiple Sclerosis clinic Cardiovascular + Hypertension (States BP has been bettr controlled since seeing Dr. Georgia Yee) Hypertension year diagnosed: 1984. Typical systolic BP - 120 Typical diastolic BP - 80 + Hyperlipidemia (on statin) Pertinent negatives: CAD ; OK ; CABG ; valvular heart disease; atrial [...] provided by telephone and electronically sent via [employer]. Patient verbalized understanding of instructions. Blood bank [...] (LIPITOR) 40 mg tablet 05/13/2024 04/05/22 -- ProviderBettie MD BD Insulin Syringe [...] last 30 days. Romain index score: 100 SION SUPPORT MANAGER documented in this encounter Miscellaneous Notes * Perioperative Nursing Note - Michelle Awad RN - 06/04/2024 1:44 PM DECISION SUPPORT MANAGER Pt discharged home via wheelchair. Patient and family were given discharge instructions and verbalized understanding of material and are comfortable going home. Patient self-cathed in bathroom and did not record amount but reported clear yellow urine SION SUPPORT MANAGER * Op Note - Marquis Lopez MD - 06/04/2024 11:30 AM CST Date of Surgery: 06/04/2024 Preoperative diagnosis: neurogenic bladder with detrusor overactivity and urgency urinary incontinence Post-operative diagnosis: neurogenic bladder with detrusor overactivity and urgency urinary incontinence Procedure: Cystoscopy, injection of 300 units of onabotulinumtoxinA (Botox) into the bladder Surgeon: Marquis Lopez MD Research Nurse: Bethany Michael MD Anesthesia: General Complications: None [...] Marquis Lopez, was present throughout the surgery. SION SUPPORT MANAGER * Brief Op Note - Marquis Lopez MD - 06/04/2024 11:30 AM CST Operative Progress Note Surgical Team: Surgeons and Role: * Marquis Lopez MD - Primary * Bethany Michael MD - Resident - Assisting Anesthesiologist: Cole Edmondson MD PROBATION SUPERVISOR: Jagjit Goldman CRNA Jewelry Department Supervisor: Rocío Rivera RN; Kimberly Conteh RN Scrub: [...] the entire procedure (including opening and closing). SION SUPPORT MANAGER * Pre-Procedure Instructions - Vi Marcano, VASCULAR TECHNOLOGIST SONOGRAPHER - 05/28/2024 1:55 PM DECISION SUPPORT MANAGER Center for Preoperative Assessment and Planning CPAP Clinic Location: [facility] The night before your surgery: * Do [...] additional action prior to your planned procedure. SION SUPPORT MANAGER * Perioperative Nursing Note - Abbi Ortiz RN - 05/14/2024 1:44 PM CST Center for Preoperative Assessment and Planning Perioperative Nursing Note Telephone Preoperative Evaluation ([facility]) - TELEPHONE ONLY, NO PHYSICAL EXAM [...] family Information Provided on Healthcare Directives: No Communication/Call Centre Supervisor Needs Communication Barriers: Visual Communication Needs: Glasses Does caregiver's language differ from patient's?: No Assistive Devices/DME: Eyeglasses Discharge Planning Type of Residence: Private residence Living Arrangements: Spouse/significant other Support Systems: Spouse/significant other Assistance Needed: pt's will be with pt on DOS Patient expects to be discharged to: Private residence E COMMERCE ARCHITECT NO ADDITIONAL COMMENTS/ FOLLOW UP SION SUPPORT MANAGER * Pre-Procedure Instructions - Abbi Ortiz RN [...] remove nail coverings, artificial nails and nail mexican prior to the day of surgery. This is to lower your risk of infection and to allow the day of surgery team to monitor your oxygen levels. You should leave your valuables and any jewelry at home. No metal or piercings are allowed in the operating room. You should bring your insurance card, a photo ID (example: Mathematics Faculty Member's License) and a method of payment for [...] Chart. If you are having surgery at [facility], please arrive on the day of surgery [...] Pathway to Excellent Care by the followinglink: [email or web address] How To Prepare Your Skin For Surgery [...] Remove nail coverings, artificial nails and nail mexican. Place clean linens on your bed the [...] questions, please call the CPAP Staff at [phone], Sunday-Sunday 8am-4:30pm. All patients should read the below section: Information on [facility] or [facility] ([facility]): Please view [email or web address] (Patient and Visitor Information) for parking, directions, lodging and more. For MyChart information, to activate account or password recovery, please go to [email or web address] or call [phone] (toll-free: [phone]), Sun- Sunday 8am-5pm. Information for Suicide Prevention: National Suicide Prevention Lifeline (6-186- 741-UUCR (0436)) or call or text 018. Chat resources: [employer]. Surgery Times: For patients having surgery @ [facility], if your surgeon's office has not notified you of your surgery time by 2pm THE BUSINESS DAY BEFORE your surgery, please call the surgery center at [phone] and ask for your surgeon's office Dr. Lopez. The Center for Preoperative Assessment & Planning ([facility]) does not provide arrival times for theday of surgery or provide the duration of surgery. This information is provided by your surgeon's office or by the center where you are having surgery. We appreciate your understanding. SION SUPPORT MANAGER documented in this encounter Plan of Treatment Not on file documented as of this encounter Procedures Procedure Name Priority Date/Time Associated Diagnosis Comments CYSTOSCOPY 06/04/2024 12:10 PM DECISION SUPPORT MANAGER Neurogenic bladder OAB (overactive bladder) Urge urinary incontinence Special Needs 200 UNITS OF BOTOX TO BE MIXED WITH 20 CC NORMAL SALINE IN OR; CHERELLE NEEDLE FOR INJECTION INJECTION BOTOX 06/04/2024 12:10 PM DECISION SUPPORT MANAGER Neurogenic bladder OAB (overactive bladder) Urge urinary incontinence Special Needs 200 UNITS OF BOTOX TO BE MIXED WITH 20 CC NORMAL SALINE IN OR; CHERELLE NEEDLE FOR INJECTION POC ISTAT Routine 06/04/2024 9:56 AM DECISION SUPPORT MANAGER documented in this encounter Results * POC ISTAT (06/04/2024 9:56 AM DECISION SUPPORT MANAGER) K POC 4.1 3.3 - 4.9 mmol/L Comment: Interpretive Data This method is not able to assess for hemolysis, which may falsely increase potassium concentrations. If further testing is needed to evaluate this result, consider in-laboratory plasma potassium. Current Interpretive Data was last revised on 2022. POC Device Number [id number] [place] [facility] POC Performer [id number] [place] [facility] Blood 06/04/2024 9:56 AM DECISION SUPPORT MANAGER 06/04/2024 9:56 AM DECISION SUPPORT MANAGER Marquis Lopez MD LAB BLOOD ORDERABLES Final Res ult [place] [facility] [address] [facility]. Department of Laboratories [place], [place] [id number] documented in this encounter Visit Diagnoses Diagnosis Neurogenic bladder- Primary Neurogenic bladder, NOS Neurogenic bladder Neurogenic bladder, NOS Urge urinary incontinence Urge incontinence OAB (overactive bladder) Urge urinary incontinence Urge incontinence Neurogenic bladder Neurogenic bladder, NOS OAB (overactive bladder) Urge urinary incontinence Urge incontinence documented in this encounter Admitting Diagnoses Diagnosis Neurogenic bladder Neurogenic bladder, NOS OAB (overactive bladder) Urge urinary incontinence Urge incontinence documented in this encounter Administered Medications Inactive Administered Medications - up to 3 most recent administrations Medication Order MAR Action Action Date Dose Rate Site onabotulinumtoxin A (BOTOX) injection As needed, Starting on Sun06/04/24 at 1231, Intra-Op Given 06/04/2024 12:31 PM DECISION SUPPORT MANAGER 300 Units Surgical Site sodium chloride 0.9% infusion 30 mL/hr, intravenous, Continuous, Starting on Sun06/04/24 at 1015, Pre-Op, Use 500 ml bag for End Stage Renal Disease patients. Restarted 06/04/2024 12:10 PM DECISION SUPPORT MANAGER New Bag 06/04/2024 9:56 AM DECISION SUPPORT MANAGER 30 mL/hr 30 mL/hr sodium chloride 0.9% irrigation As needed, Starting on Sun06/04/24 at 1227, Intra-Op Given 06/04/2024 12:27 PM DECISION SUPPORT MANAGER 3,000 mL Surgical Site sodium chloride bacteriostatic 0.9 % injection As needed, Starting on Sun06/04/24 at 1231, Intra-Op Given 06/04/2024 12:31 PM DECISION SUPPORT MANAGER 30 mL Surgical Site documented in this encounter Active and Recently Administered Medications Times are shown in DECISION SUPPORT MANAGER. Scheduled Medication Order 06/02/2024 06/03/2024 06/04/2024 ceFAZolin [...] administered by the anesthesia staff (Anesthesiologist or PROBATION SUPERVISOR), Starting on Sun06/04/24 at 0934, For 1 [...] 0.4 mg/mL injection 0.04-0.4 mg 1 06/04/2024 ondansetron (ZOFRAN) injection 4 mg 1 06/04 prochlorperazine (COMPAZINE) injection 5 mg 1 06/04/2024 scopolamine patch 72 hour 1 patch 1 024 sodium chloride 0.9% flush 0.5-20 mL 1 05/25 sodium chloride 0.9% infusion 1 06/04/2024 Discharge Count Last Ordered Date First Orde red Date DISCHARGE PATIENT 1 06/04/2024 documented in this encounter Care Teams Hydramatic Mechanic Relationship Specialty Start Date End Date Mick Flowers MD PCP - General 05/14/17 documented as of this encounter
--- OUTSIDE RECORDS SUMMARY | 2024-06-29 00:26 | XMS_ITS | Encounter Summary ---
Author Organization [facility] Healthcare Address [address] [place] [address] Care Team Providers Care Garment Parts Cutter Machine Name Role Phone Mick Flowers MD Primary Care Provider [phone] Encounter Details Date Type Department Care Team (Late st Contact Info) Description 03/05/2024 1:00 PM CDT Lab [facility] Advanced Medicine 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 on file Not on file documented as of this encounter Plan of Treatment Not on file documented as of this encounter Procedures Procedure Name Priority Date/Time Associated Diagnosis Comments METANEPHRINES, FRACTIONATED FREE, BLOOD Routine 03/05/2024 12:59 PM CDT Resistant hypertension RENIN ACTIVITY Routine 03/05/2024 12:59 PM CDT Resistant hypertension ALDOSTERONE Routine 03/05/2024 12:59 PM CDT Resistant hypertension documented in this encounter Results * Aldosterone (03/05/2024 12:59 PM CDT) Aldosterone 20 <=21 ng/dL [facility] ref Lab Comment: ADDITIONAL INFORMATION Reference range for patients 11 years and older is based on upright A.M. collection from subjects without sodium restrictions. This test was developed and its performance characteristics determined by [facility] in a manner consistent with CLIA requirements. This test has not been cleared or approved by the U.S. Food and Drug Administration. Test Performed by: [facility] - [facility] [address] [place] [address] Bunch Maker Hand: Janeth Keating Ph.D.; CLIA# [id number] Blood 03/05/2024 12:5 9 PM CDT 03/05/2024 1:28 PM CDT us Georgia Yee MD LAB BLOOD ORDERABLES Final Re sult [facility] Department [place] [address] [place] ref Lab * Renin activity (03/05/2024 12:59 PM CDT) Renin 8.0 ng/mL/H [facility] ref Lab Comment: REFERENCE VALUE (Peripheral vein specimen) Na-deplete, upright: ??Mean: 5.9 ??Range: 2.9-10.8 Na-replete, upright: ??Mean: 1.0 ??Range: < or =0.6-3.0 ADDITIONAL INFORMATION Testing performed by Liquid Chromatography-Tandem Mass Spectrometry (LC-MS/MS). This test was developed and its performance characteristics determined by [facility] in a manner consistent with CLIA requirements. This test has not been cleared or approved by the U.S. Food and Drug Administration. Test Performed by: [facility] [place] [address] Bunch Maker Hand: Janeth Keating Ph.D.; CLIA# [id number] Blood 03/05/2024 12:5 9 PM CDT 03/05/2024 1:24 PM CDT us Georgia Yee MD LAB BLOOD ORDERABLES Final Re sult [facility] [facility] [place] [address] [place] ref Lab * Metanephrines, fractionated free, blood (03/05/2024 12:59 PM CDT) Normetanephrines 0.51 <0.90 nmol/L [place] ref Lab Metanephrines <0.20 <0.50 nmol/L [place] [facility] Comment: ADDITIONAL INFORMATION This test was developed and its performance characteristics determined by [facility] in a manner consistent with CLIA requirements. This test has not been cleared or approved by the U.S. Food and Drug Administration. Test Performed by: [facility] - [address] [address] Bunch Maker Hand: Janeth Keating Ph.D.; CLIA# [id number] Blood 03/05/2024 12:5 9 PM CDT 03/05/2024 1:30 PM CDT us Georgia Yee MD LAB BLOOD ORDERABLES Final Re sult [facility] Department [place] [address] [place] ref Lab documented in this encounter Visit Diagnoses Diagnosis Resistant hypertension documented in this encounter Care Teams Garment Parts Cutter Machine Relationship Specialty Start Date End Date Mick Flowers MD PCP - General 05/14/17 documented as of this encounter
--- OUTSIDE RECORDS SUMMARY | 2024-06-29 00:26 | XMS_ITS | Encounter Summary ---
Author Organization [facility] Healthcare Address [address] [place] [address] Care Team Providers Care Hide Stretcher Hand Name Role Phone Mick Flowers MD Primary Care Provider [phone] Reason for Referral * Diagnostic Imaging (Routine) - Closed Specialty Diagnoses / Procedures Referred By Contac t Referred To Contact Radiology Diagnoses Lumbar spondylosis Lumbar facet arthropathy Mechanical low back pain Procedures IR Facet Block Lumbar Sacral First Level Right Walter Slaughter MD [address] [facility] [address] [place] [address] Phone: tel: fax: [address] [phone] Referral ID Status Reason Start Date Expiration Date Visits Re quested Visits Authorized [id number] Closed 01/02/2024 01/31/2025 1 1 Reason for Visit * Diagnostic Imaging (Routine) - Closed Specialty Diagnoses / Procedures Referred By Contac t Referred To Contact Radiology Diagnoses Lumbar spondylosis Lumbar facet arthropathy Mechanical low back pain Procedures IR Facet Block Lumbar Sacral First Level Right Walter Slaughter MD [address] [facility] [place] [address] [place] [address] Phone: tel: fax: [address] [phone] Referral ID Status Reason Start Date Expiration Date Visits Re quested Visits Authorized [id number] Closed 01/02/2024 01/31/2025 1 1 Encounter Details Date Type Department Care Team (Latest Contact Info) Description 02/13/2024 12:39 PM CDT - 02/13/2024 11:59 PM CDT Hospital Encounter [id number] Radiology [address] [facility] [address] [place] [id number] Walter Slaughter MD [address] [facility] [address] [place] [address] [place] [address] Lumbar spondylosis; Lumbar facet arthropathy; Mechanical low back pain Discharge Disposition: Discharge to home or self [...] on file 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 The numbing medicine usually lasts for 30- 45 minutes. During this time, your leg may feel weak and numb due to the effects of the numbing medicine. If this occurs, it is important to stay safe and do not stand or walk without assistance until the numbing medicine wears off. Do not drive for one hour after the inject Triamcinalone (steroid medicine for inflammation and pain). The steroid will start working within the next three to five days and can take up to two weeks for the full effect. When you get home: Resume your medicine including any blood thinner you held prior to the injection. Resume your normal diet For soreness, you may place an ice pack once an hour at the injection site for 15-20 minutes. You may shower. To prevent infection, do not take a bath, swim or sit in a Jacuzzi or hot tub for the next two days. Drink plenty of fluids to decrease a chance of a headache associated with steroids. You may resume your physical therapy appointments in 24 hours. Do not exercise for 24 hours, regular day-to-day activities are OK to perform. Diabetic patients: Steroid injections may lead to higher blood glucose (sugar) levels temporarily. Most commonly, the higher levels will return to normal within 1-3 days, though effects may last longer. Rises in blood glucose levels may be more significant in patients with poorly controlled type 2 diabetes (those with HbA1c levels greater than 7) and those with type I diabetes. Check fasting (qualitative researcher prior to first meal of the day) and post-prandial (following meals) blood glucose levels. Contact the physician who manages your diabetes if your blood sugar is significantly elevated (for example, over 100mg/dL higher than your pre- injection level) or if blood sugar levels remain significantly elevated 2 days after receiving the injection, to discuss whether a change in medication dosing is needed. For urgent concerns after hours, call our exchange at [phone]. For all other questions regarding the procedure, please call our office at [phone]. Pain Diary Please fill out the pain diary chart below and message via [employer] call or call the medical provider who requested the injection, Dr. Slaughter, in two weeks. By how much has your pain improved after your injection? NOT IMPROVED IMPROVED A LITTLE IMPROVED A LITTLE MORE IMPROVED A LOT NO PAIN Immediately? 0% 20% 50% 80% 100% 6 hours after? 0% 20% 50% 80% 100% 24 hours after? 0% 20% 50% 80% 100% 4 days after? 0% 20% 50% 80% 100% 1 week after? 0% 20% 50% 80% 100% 10 days after? 0% 20% 50% 80% 100% 2 weeks after? 0% 20% 50% 80% 100% documented in this encounter Medications at Time [...] Syringe Ultra-Fine 0.5 mL 30 gauge x 06/26 syringe 08/30/2022 famotidine (PEPCID) 20 mg tabletIndication [...] or self care documented in this encounter Progress Notes * Walter Slaughter MD - 02/13/2024 1:20 PM CDT Right L4-5 Facet Joint Injection [facility] Department of Orthopedic Surgery Division of Physical Medicine and Rehabilitation Patient name: Doc Emery Date of : 1965 Date of service: 02/13/2024 Doc Emery presents to the fluoroscopy suite for a fluoroscopically guided right L4-5 facet joint injection as part of conservative treatment for axial low back pain with lumbosacral facet arthropathy. After informed consent was obtained, the patient was positioned in the prone position on the fluoroscopy table. The right L4-5 facet joint was identified under fluoroscopic guidance. The area was prepped with chlorhexidine and draped in a sterile fashion. Using a 25 gauge 2 inch needle, 1-2 mL of 1% lidocaine was infused subcutaneously to anesthetize the region. Then, a 25 gauge 3.5 inch spinal needle was inserted into the facet joint under fluoroscopic guidance. Confirmation into the joint space was obtained with infusion of 0.25 mL of Omnipaque contrast which showed outline of the facet joint. Then a combination of 0.5 mL of 1% lidocaine and 20 mg of 40 mg/mL triamcinalone was infused. The patient tolerated the procedure without complications. Pre and post procedure blood pressurewere stable. The patient was given verbal as well as written follow-up instructions. At the time ofdischarge following today's procedure, the patient was able to ambulate at their pre-procedure level and denied ongoing nausea, vomiting, or dizziness. Prior to the start of the procedure, verbal verification by the procedure participant(s) confirmed (as applicable): correct patient identity; correct site/side marked and visible; agreement on the procedure to be done; correct patient positioning; an accurate signed procedure consent form, relevantimages and results correctly labeled and displayed; any safety precautions based on clinical history and/or medication use have been addressed. Fluoroscopic guidance used to right L4-5 facet joint injection. Confirmation of needle placement into the right L4-5 facet joint was obtained by injecting approximately 0.25 mL of Omnipaque contrast.There was no evidence of vascular uptake or subdural flow noted. I personally performed or was present for the entire procedure above. Walter Slaughter MD documented in this encounter Plan of Treatment Not on file documented as of this encounter Procedures Procedure Name Priority Date/Time Associated Diagnosis Comments FACET BLOCK LUMBAR/SACRAL 1 LEVEL RIGHT Schedule Routine, Read Routine (OP Routine) 02/13/2024 1:43 PM CDT Lumbar spondylosis Lumbar facet arthropathy Mechanical low back pain documented in this encounter Results * IR Facet Block Lumbar Sacral First Level Right (02/13/2024 1:43 PM CDT) Narrative [id number] - 02/13/2024 1:45 PM CDT The images from this study are not interpreted by Radiology. ??Please refer to the physician's procedure / OR operative note. us Walter Slaughter MD IMG IR PROCEDURES Final Re sult Performing Organization Address City/State/[facility] Co de Phone Number [email or web address] documented in this encounter Visit Diagnoses Diagnosis Lumbar spondylosis Lumbosacral spondylosis without myelopathy Lumbar facet arthropathy Spondylosis of unspecified site without mention of myelopathy Mechanical low back pain Lumbago documented in this encounter Administered Medications Inactive Administered Medications - up to 3 most recent administrations Medication Order MAR Action Action Date Dose Rate Site iohexoL (OMNIPAQUE) 300 mg iodine/mL injection solution As needed, Starting on Sun02/13/24 at 1303, Intra-Op Given 02/13/2024 1:03 PM CDT 1 mL lidocaine (PF) (XYLOCAINE) 10 mg/mL (1 %) preservative free injection As needed, Starting on Sun02/13/24 at 1303, Intra-Procedure (IR), Indications: Administration of Local AnesthesiaIndications:Administratio n of Local Anesthesia Given 02/13/2024 1:03 PM CDT 4 mg triamcinolone (KENALOG) 40 mg/mL injection As needed, Starting on Sun02/13/24 at 1303, Intra-Op Given 02/13/2024 1:03 PM CDT 40 mg documented in this encounter Care Teams Hide Stretcher Hand Relationship Specialty Start Date End Date Mick Flowers MD PCP - General 05/14/17 documented as of this encounter
--- OUTSIDE RECORDS SUMMARY | 2024-06-29 00:26 | XMS_ITS | Encounter Summary ---
Author Organization [facility] Address [address] [facility] [address] [place] [address] Phone Care Team Providers Care Gas Compressor Turbine Operator Name Role Phone Mick Flowers MD Primary Care Provider [phone] Reason for Visit * Consultation (Routine) - Closed Specialty Diagnoses / Procedures Referred By Contac t Referred To Contact Neurology Diagnoses Multiple sclerosis (HCC) Mick Flowers MD [address] [place] [address] Phone: tel: fax: [facility] (All Locations) Referral ID Status Reason Start Date Expiration Date V isits Requested Visits Authorized [id number] Closed Specialty Services Required 11/02/2023 12/01/2024 1 1 Encounter Details Date Type Department Care Team (Late st Contact Info) Description 12/11/2023 11:00 AM CDT Office Visit [facility] Multiple Sclerosis [address] [place] [address] [phone] Cherry Minor MD [address] [place] [address] Multiple sclerosis (HCC) (Primary Dx); Neurogenic bladder disorder; Neurogenic bladder; Abnormality of gait and mobility; Abnormal MRI Social History Tobacco Use Types Packs/Day Years Used Date Smoking Tobacco: Never Smokeless Tobacco: Never Tobacco Cessation:Counseling Given: Yes Alcohol Use Standard Drinks/Week Comments Yes 0 [...] on file 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 Gender Identity Not on file Sexual Orientation Not on file 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 on file Not on file documented as of this encounter Last Filed Vital Signs Vital Sign Reading Time Taken Comments Blood Pressure 114/77 12/11/2023 10:28 AM CDT Pulse 80 12/11/2023 10:28 AM CDT Temperature - - Respiratory Rate - - Oxygen Saturation - - Inhaled Oxygen Concentration - - Weight 77.9 kg (171 lb 12.8 oz) 024 10:28 AM CDT Height 177.8 cm (5' 10 ) 12/11/2023 10: 28 AM CDT Body Mass Index 24.65 12/11/2023 10:28 AM CDT documented in this encounter Patient Instructions * Patient Instructions* Cherry Minor MD - 12/11/2023 11:00 AM CDT Dear Marita, I still suggest you call the people at [facility]. Their study of umbilical stem cells looks intriguing. Clinicaltrials.gov Go to this website periodically and check the site. PI is Marcia Shelley. ID [id number] for the study. Your exam looked good. I will put into your chart that you have the amitriptyline on hold, and the sulfamethoxazole/trimethoprine also you are not taking. I will order MRIs again at next visit. In 9-12 months. Keep in touch. Sincerely, Cherry Minor MD documented in this encounter Progress Notes * Cherry Minor MD - 12/11/2023 11:00 AM CDT Time spent on 12-11-23 reviewing chart prior to visit: 6:47am - 6:58am (11min) Time spent during visit itself: 10:48am - 11:40am (52min) Time spent on 12-11-23 after visit orders/charting etc: 2:38pm - 2:41pm ( 3min) Total time on 12-11-23 by [facility] : 66 total minutes. Patient Name: MARITA EMERY Medical Record Number (MRN): [id number] Date of (): 1965 Encounter Date: 12/11/2023 Chief Complaint Marita Emery is a 58 y.o. male seen today for MS followup, medication and symptom management. Dr.Wei Yoon did exam and present all Pt was last seen on 06-05-23 by me. Some portions of this note were copied forward from our previous note dated 06-05-23, confirmed today at this visit and revised as appropriate. 12/11/2023 . Pt is on no DMT. I sent him a note about the [place] study of DUOC-01 umbilical derived stem cells in advance of this meeting. Never contacted them.He is interested in the outcome of the study. Cystoscopy done (Dr Keyla Lopez) on 11-28-23 for BOTOX injection. Pt reports that after Dec visit, lethargic after a family vacation. Has been going to gym. 1hr, + 15min daily. BL and weight are down. Doing cardio now. [employer], [facility]. Leg is gradually going downhill. Lumbar injection done recently for back pain - Helped. Done 3-4x every 6 mon/12mon. Results: Last Labs: 05-21-23: ALL WNL: Vit D, CK, CMP, CBC, UA, PSA Still this is Last MRI: 10-05-21: COMPARISON: 08/09/2007 (14 years prior) FINDINGS: BRAIN: On this MRI examination, there are approximately 10 of FLAIR/T9puddtostljte lesions. There are multiple foci of hyperintensity on FLAIR and T2-weighted images within the white matter compatible with demyelinating plaques of multiple sclerosis. This includes periventricular, callosal,cortical lesions. New Brain T2 Lesions: 4, T1 Hypointense Black Holes : 0 Enhancing Brain Lesions: 0 T2/FLAIR Hull of Disease: Mild, less than 10 typical lesions or 20 punctate lesions Parenchymal Volume Loss: Mild atrophy of the cerebellum, unchanged compared to 08/09/2007. Other Significant Findings: None The visualized portions of the optic nerves are normal. CERVICAL AND THORACIC SPINE: Diffuse patchy increased T2 signal throughout the cervical and thoracic spine, confirmed on the sagittal and axial sequences. On the prior examination dated 08/09/2007, there was a patchy increased signal of the spine on the sagittal sequence, with evaluation of the axial sequence was limited due totechnique. It is unclear if there has been progression in disease in the spine, coronary findings are due to differences in technique. Specifically, there is a lesion at the T3 level of the right aspect and a lesion at the T12 level where there is diffuse increase in signal. Enhancing Spine Lesions: None. The alignment of the cervical and thoracic spine is normal. Vertebral bodies demonstrate normal signal intensity on all sequences. The craniocervical junction is normal. Multilevel disc desiccation of the cervical spine. Multilevel degenerative disc and joint disease, most pronounced at C6-C7, progressed compared to the prior examination. No soft tissue abnormality is identified. Normal signal voids arepr esent in the vertebral arteries. IMPRESSION: Multiple intracranial and spinal white matter lesions compatible with multiple sclerosis. New T2 Lesions: 4 new lesions in the brain. Diffuse patchy increased T2 signal throughout the cervical and thoracic spine with discrete areas of increased signal at T3 and T12 levels. On the prior e xamination dated 08/09/2007, there was patchy increased signal of the cervical and thoracic spine onthe sagittal sequence, however evaluation of the axial sequence is limited due to technique, and thus it is unclear if there has been progression of disease in the spine or the findings are due to differences in technique. Enhancing Lesions: None. Other significant findings: Multilevel degenerativedisc and joint disease, most pronounced at C6-C7, progressed compared to the prior examination. Electronically signed by: Mayra Turner M.D., Ph.D. PRIOR Last MRI: LAST prior regular MRI was Jul 2007 in our system. It had about 5-7 mostly non-specific lesions. BRAIN only. No CELs.. No cord MRIs. There was one lesion in the anterior corpus callosum, and one left frontal juxtacortical lesion, but no infratentorial lesions and no cord MRIs at all. This is my examination of those images on my home laptop on 02-15-2020. HPI Interim: Progressively worsening rt leg weakness. He falls. BOTOX injections to bladder - has done it for 7 years and he gets it every 6 months - very beneficial. QUALITY of life much better. Last one 11-28-23 (Vivian) Patient is walking with a ski pole when out. Pt reports back and neck pain. He was getting back injections for pain. Does annual skin checks with termite control service representative. Here are the clinical scores and MRI measurements of PR09 (Mr Emery) in the [facility] longitudinal study. This patient belongs to the PPMS group. He was relatively stable in clinical performance, exceptfor the slow down of 25ftw on the last test. Lesion volume clearly increased over time. In addition, sanders matter R2t* also showed a decreasing trend over time. Label gender mssubtype edss tw25ft d9hpt nd9hpt pasat 3sec pasat 2sec Sdmt_ correct LesionVolume (Log) R2t*_Lesion R2*_Lesion NAWM_R2t* NAGM_R2t* NAWM_R2* NAGM_R2* PR09_V1 M PPMS 4.5 3.865 21.175 23.72 48 34 48 2.921 14.44 16.87 21.55 14.25 22.44 17.25 PR09_V2 M PPMS 4 3.545 21.81 25.75 42 44 51 2.700 13.49 16.38 21.27 13.66 22.39 17.41 PR09_V3 M PPMS 4.5 4.175 23.065 22.375 47 44 51 2.813 12.72 17.28 22.62 14.22 23.58 17.50 PR09_V4 M PPMS 4.5 4.15 21.735 23.565 57 50 49 3.088 13.02 15.97 21.46 14.63 22.43 17.67 PR09_V5 M PPMS 4 4.4 23.3 22.4 56 41 48 3.263 14.17 18.21 21.05 13.30 22.28 17.26 Neurological History: Mr. Emery is a former [place] worker in [employer] and has lived in [place] and [place], [place]. He is Rt handed. 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 He is on Ampyra 10 mg BID for gait; but no disease-modifying therapy. Has had MS since 1989 (age 24). First symptom was bladder related. Urgency and Frequency. No UTIs. No Family History of MS (3 children - adults). He reports that it took 6 months to figure out the diagnosis. Diagnosis: LP (abnormal), MRI. Diagnosis made when in [employer]. 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 MS for >25 years. In fact, pt states his first MS doctor was Dr Usman Rosenbaum. He was a former patient of Dr. Betzaida Warren. Pt reports only a slowly downhill course. He has had some slow downhill progression of worsening vision OD. Does have sexual dysfunction and uses EDEX for this. Followed by Dr. Juice Lopez for these issues (bladder & sexual dysfunction). No depression and denies cognitive problems or fatigue. Not excessive. Bowel problems developed [id number], with intermittent diarrhea and stool incontinence. No stool incontinence when having a normal BM. He had COVID-12 Jun 2020; it was a mild case and did well. Later, he was vaccinated with an mRNA vaccine. Added case to the COVIMS.org Registry. No Known Allergies Takes Xanax nightly for sleep (0.25mg at HS and 0.25 at 4am) Bladder BOTOX. Dr. Keyla Lopez. DEXA 11-22-2022: Bone mineral density is near the young adult normal mean with no increased risk forfracture. Current Outpatient Medications: ALPRAZolam (XANAX) 0.5 mg tablet, Take 1 tablet (0.5 mg total) by mouth nightly as needed for sleep, Disp: , Rfl: alprostadiL (Edex) 40 mcg injection, 20 mcg by intracavity route as needed for erectile dysfunction(Patient taking differently: 20 mcg by intracavity route as needed for erectile dysfunction), Disp:10 kit, Rfl: 6 amitriptyline (ELAVIL) 25 mg tablet, Take 2 tablets (50 mg total) by mouth nightly (Patient taking differently: Take 2 tablets (50 mg total) by mouth nightly), Disp: 60 tablet, Rfl: 2 atorvastatin (LIPITOR) 40 mg tablet, Take 1 tablet (40 mg total) by mouth nightly, Disp: , Rfl: BD Insulin Syringe Ultra-Fine 0.5 mL 30 gauge x 1/2 syringe, , Disp: , Rfl: famotidine (PEPCID) 20 mg tablet, Take 1 tablet (20 mg total) by mouth 2 (two) times a day as needed for indigestion or heartburn, Disp: , Rfl: felodipine (PLENDIL) 5 mg 24 hr tablet, Take 1 tablet (5 mg total) by mouth 2 (two) times a day, Disp: , Rfl: hydroCHLOROthiazide (HYDRODIURIL) 25 mg tablet, Take 1 tablet (25 mg total) by mouth every morning,Disp: , Rfl: multivitamin tablet, Take 1 tablet by mouth daily before breakfast, Disp: , Rfl: POTASSIUM CHLORIDE ER 20 mEq CR tablet, Take 1 tablet (20 mEq total) by mouth every morning, Disp: , Rfl: 5 sulfamethoxazole-trimethoprim (BACTRIM DS) 800-160 mg per tablet, , Disp: , Rfl: valsartan (DIOVAN) 320 mg tablet, Take 1 tablet (320 mg total) by mouth nightly, Disp: , Rfl: Patient Active Problem List Diagnosis Abnormality of gait and mobility High risk medication use Hypercholesterolemia Primary insomnia Multiple sclerosis (HCC) Penile discharge Urethral stricture Urinary tract infection OAB (overactive bladder) Bowel incontinence Cardiovascular risk factor Abnormal MRI Vitamin D deficiency Anxiety Erectile dysfunction Neurogenic bladder Urge urinary incontinence Medication management Benign essential hypertension Carpal tunnel syndrome of right wrist Change in bowel habit Eczema Diarrhea Edema Gastroesophageal reflux disease Elbow pain Lower abdominal pain Malignant tumor of colon (CMS/HCC) (HCC) Thoracic spondylosis Hyperlipidemia Past Medical History: Diagnosis Date COVID-19 positive [...] COMPLETE W LIVER DOPPLER (C) Right 10/30/2023 Family History Problem Relation Age of Onset Melanoma Mother Family history of malignant melanoma - (Added by TW Conv) Cancer Mother Alcohol abuse Father Cancer Father Hypertension Father Hypertension Other Family history of Hypertension; Anesthesia problems Neg Hx Malig Hypertension Neg Hx Pseudochol deficiency Neg Hx Malig Hyperthermia Neg Hx Patient reports No family history of MS but has + FamHx of malignant melanoma (mother) Social History Tobacco Use Smoking status: Never Smokeless tobacco: Never Substance and Sexual Activity Drug use: Yes Frequency: 4.0 times per week Types: Medical marijuana Sexual activity: Defer Alcohol Use: Not At Risk (11/28/2023) AUDIT-C Frequency of Alcohol Consumption: 2-3 times a week Average Number of Drinks: 1 or 2 Frequency of Binge Drinking: Never Vital Signs BP 114/77 (BP Location: Right arm, Patient Position: Sitting) Pulse 80 Ht 177.8 cm (5' 10 ) Wt 77.9 kg (171 lb 12.8 oz) BMI 24.65 kg/m?? Review of Systems A 12 point review of systems has been performed by the patient and has been reviewed with me duringthis visit. Unless checked yes , all other systems negative except per here, chief complaint or HPI. See scanned sheet. Frequent falls and near falls. Cramps legs. Anxiety. Trouble sleeping. MS Paths Results Flowsheet Row Office Visit from 06/05/2023 in [facility] Multiple Sclerosis with Cherry Minor MD Office Visit from 09/13/2021 in [facility] Multiple Sclerosis with AnneH. Minor MD MSPT 25FTW (Avg Time in Seconds) 8.17 seconds 6.45 seconds 25FTW Z-Score -2.85 -- SDMT 46 44 SDMT Z-Score -0.37 -- Handedness right right 9HPT Left Avg (in seconds) 27 seconds 22 seconds 9HPT Right Avg (in seconds) 29 seconds 22 seconds 9HPT Dominant Z-Score -1.38 -- 9HPT Non-Dom Z-Score -0.69 -- 2.5% Vision -- -- 100% Vision -- -- PDDS early_cane early_cane Relapses since last visit 0 2 PHYSICAL Mobility QOL 39 34 Fine Motor and ADL QOL 43 57 Fatigue QOL 49 44 Sleep QOL 56 49 MENTAL Mental QOL 56 51 Depression QOL 38 34 Anxiety QOL 52 38 Emotional Dyscontrol QOL -- -- Stigma QOL 37 44 Positive Affect/Well-being QOL -- -- SOCIAL Social Participation QOL 47 36 Social Satisfaction QOL 51 44 Employment Status disabled disabled Exam 12-11-23 (Dr Yoon performed with Dr Minor watching). General: MARITA EMERY is a well-developed, well-nourished male in no acute distress. The mood is normal. There is no pedal edema. Neurologic Mental Status: He is awake, alert and oriented. Speech is fluent and he follows commandswithout difficulties. He repeats well. Cranial Nerves: 20/20 OS, 20/63 OD. No glasses. OD APD (greyish OD): Red desat OD. Vision: No cranial nerve abnormalities apparent. Pupils are O.D./O.S.: 2/2 --> 1/1. VFFTC. Extraocular movements are full. There is no nystagmus.NIURKA is not present. No adductor lag. Facial sensation is intact to light touch. The face is symmetric. There is no dysarthria. Shoulder shrug is equal. Tongue movements are normal. hearing intact to finger rub. Palate elevates symmetrically. Motor Examination: Clinical Data Assistant intact bilat. atrophy RLE distallly. In UEs, tone is normal bilaterally. Nopronator drift of UEs. FFMs, intact LUE and slowed RUE. No orbiting (very subtle? RUE). 5/5 in UE's. Normal tone in Ues. LLE is 4+/5 psoas. and normal tone. Abnormal RLE: Slowed foot tapping RLE. LLE also slowed, but less. Has clear spastic catch right knee and hip right, and increased in right ankle and ?? left ankle. In the LEs, 3+/5 in the right psoas, and 4+/5 in the left psoas. Quadriceps RLE - 4+/5 on right , and 5/5 on left. Hamstrings 4-/5 on right and 5/5 on the left. 4-/5 anteroflexion of right ankle, but4++/5 on the left. His right foot dorsiflexes slower than left, and is 4-/5 on right, 5/5 Right foot dorsiflexion 4/5 and big toe dorsiflexion are now 4/5. Toe curling is 5/5 left, 4/5 right. 5/5 plantar on LLE, and 4/5 plantar flexion RLE. There is no postural tremor. Sensation: Vibration 6/6 right and left fingers, 5/8 toe vibration RLE. 6 /8 vibration in left big toe. Proprioception intact in bilat fingers. Proprioception in right toes impaired, left toes - intact proprioception. Coordination: Finger to nose is normal RUE, and LUE. Bhjx-tcmz-qvvs is normal bilat. Rhythmic toe tapping - normal left, abnormally slow RLE. Toe tapping slower RLE. Increased tone in the right Ambulation: The patient is able to walk without assist, but Gait is R HP with spasticity. Hops 0 times on right foot. Hops 10 times on left foot. He can do tandem multiple steps. Heel height equal bilat. Reflexes: Reflexes in UEs are 3+ and symmetrical throughout. DTRs: Symmetrical Ues DTRs, with normal tone in Ues. Slightly increased DTRs in the Ues, but no Hofmans either side. Asymmetry in the knees and at the ankles, where has more clonus on right and at knee. 3++ DTR rightknee. with right toes upgoing Left Is mute. Left knee is 3+, but less than Rt. Right ankle - 3+, left 1-2+, with reinforcement. No clonus today. Neurologic Exam 10-08-2018 (exam done by [facility]); Walk Aid: none General: MARITA EMERY is a well-developed, well-nourished male in no acute distress. The mood is normal. There is no pedal edema. Neurologic Mental Status: He is awake, alert and oriented. Speech is fluent and he follows commandswithout difficulties. Cranial Nerves: Vision: 20/20 O.D. 20/13 O.S. Wall Chart. There is no red desaturation Funduscopic - clearcut temporal pallor OD, not OS. No APD. Pupils are O.D./O.S.: 2/2 --> 1/1. Extraocular movements are full.There is no nystagmus. NIURKA is not present. Facial sensation is intact to light touch/temp. The faceis symmetric. There is no dysarthria. Shoulder shrug is equal. Tongue movements are normal. Motor Examination: In UEs, tone is normal bilaterall except in his right index finger extension is mildly weaker in RUE, but the APB and opponens are 5/5/ and equal to the left. In LEs, tone is not normal. Has clear spastic catch right knee, and increased in right ankle and left ankle. Strength is 5/5 throughout UE, In the LEs, I detect 4+++/5 in the right hamstrings as well. His right foot dorsiflexes slower than left, but is 5/5. LLE is 5/5 throughout. Toe flexion 4/5 on RLE. And5/5 on his left. There is no postural tremor. Sensation: There is no Lhermitte's. Vibratory sensation in the right great toe is moderately decreased. Vibratory sensation in the left great toe is mildly decreased. Romberg is negative. In fingers,normal vibration LUE and sl reduced RUE. Coordination: Finger to nose is normal. Rapid alternating movements are normal. Kuni-xhro-nifr is normal. Rhythmic toe tapping - normal. Ambulation: The patient is able to walk on his heels. The patient is able to walk on his toes. Tandem gait is normal; 10 steps. Hops 10x RLE, but less easily than LLE Hops 10 times on left foot. Reflexes: Reflexes in UEs are hyper throughout. + Pectoralis on th e right only, bilat Hoffmans. Today, asymmetry at knees and at the ankles, where has 4+ (Clonus) in right ankle, 3+ in left. In Kness, 4+ at bilat knees. Unequivocal right UPgoing toes, left mute. OCT - mild temporal thinning OD - on prior visits Assessment/Plan Diagnosis Plan 1. Multiple sclerosis (HCC) Ambulatory referral to Neurology 2. Neurogenic bladder disorder 3. Neurogenic bladder 4. Abnormality of gait and mobility 5. Abnormal MRI Assessment PPMS On no DMT. Exam and MRI suggest progression mild. He is risk averse. He could try glatiramer, given that in the PROMiSE trial men on GA with PPMS hadslower progression. But those data are weak I told him about the [facility] umbilical stem cells study. I suggested he consider calling them to find out more. Dex in past was well WNL. Plan See above under assessment, and below under Pt Instructions for plan Patient Instructions Dear Marita, I still suggest you call the people at [facility]. Their study of umbilical stem cells looks intriguing. Clinicaltrials.gov Go to this website periodically and check the site. PI is Marcia Shelley. ID [id number] for the study. Your exam looked good. I will put into your chart that you have the amitriptyline on hold, and the sulfamethoxazole/trimethoprine also you are not taking. I will order MRIs again at next visit. In 9-12 months. Keep in touch. Sincerely, Cherry Minor MD >50% of the time was spent counseling and/or coordinating care as per above note. Discussion and decision making was of high-complexity due to the patient's high risk condition, multiple co-morbidities, neuropsychological co-morbidities, cognitive problems, and/or multiple sites of involved disability. The recommended medications are potentially of high risk consequence in theirside effects. Cherry Minor MD Professor of Neurology [facility] Department of Neurology [facility] [employer] ; documented in this encounter Plan of Treatment Not on file documented as of this encounter Visit Diagnoses Diagnosis Multiple sclerosis (HCC)- Primary Multiple sclerosis Neurogenic bladder disorder Neurogenic bladder, NOS Neurogenic bladder Neurogenic bladder, NOS Abnormality of gait and mobility Abnormal MRI Other nonspecific (abnormal) findings on radiological and other examinations of body structure documented in this encounter Historical Medications * This list may reflect changes made after this encounter. Medication Sig Dispense Quantity Refills Last Filled Start D ate End Date sulfamethoxazole-trim ethoprim (BACTRIM DS) 800-160 mg per tablet 11/21/202304/2024 added in this encounter Orders Outpatient Referral Count Last Ordered Date Fir st Ordered Date AMB REFERRAL TO NEUROLOGY 1 12/11/2023 documented in this encounter Care Teams Gas Compressor Turbine Operator Relationship Specialty Start Date End Date Mick Flowers MD PCP - General 05/14/17 documented as of this encounter
--- OUTSIDE RECORDS SUMMARY | 2024-06-29 00:26 | XMS_ITS | Encounter Summary ---
Author Organization [facility] Address [address] [place] [address] Care Team Providers Care Pump Technician Name Role Phone Mick Flowers MD Primary Care Provider [phone] Reason for Referral * Diagnostic Imaging (Routine) - Closed Specialty Diagnoses / Procedures Referred By Christy elizabeth Referred To Contact Diagnoses Resistant hypertension Renovascular hypertension [place] [address] [place] [address] Phone: tel: fax: [address] [address] Referral ID Status Reason Start Date Expiration Date Visits Re quested Visits Authorized [id number] Closed 03/05/2024 04/04/2025 1 1 Reason for Visit * Diagnostic Imaging (Routine) - Closed Specialty Diagnoses / Procedures Referred By Christy elizabeth Referred To Contact Diagnoses Resistant hypertension Renovascular hypertension Procedures US Renal Doppler Georgia Yee MD [address] [address] Phone: tel: fax: [address] [address] Referral ID Status Reason Start Date Expiration Date Visits Re quested Visits Authorized [id number] Closed 03/05/2024 04/04/2025 1 1 Encounter Details Date Type Department Care Team (Latest Contact Info) Description 03/26/2024 1:32 PM CDT - 03/26/2024 11:59 PM CDT Hospital Encounter [facility] Vascular Lab [address] [place] [address] Resistant hypertension; Renovascular hypertension Discharge Disposition: Discharge to home or self [...] on file 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 Gender Identity Not on file Sexual Orientation [...] 0.5 mL 30 gauge x /2 syringe 08/30/2022 famotidine (PEPCID) 20 mg tabletIndication [...] (320 mg total) by mouth nightly 07/19/2022 spironolactone (ALDACTONE) 25 mg tablet Take 1 tablet (25 mg total) by mouth daily 90 tablet 3 03/19/2024 4 documented as of this encounter Discharge Disposition Disposition Code Departure Means Destination Discharge to home or self care documented in this encounter Plan of Treatment Not on file documented as of this encounter Procedures Procedure Name Priority Date/Time Associated Diagnosis Comments US RENAL DOPPLER Schedule Routine, Read Routine (OP Routine) 03/26/2024 2:28 PM CDT Resistant hypertension Renovascular hypertension documented in this encounter Results * US Renal Doppler (03/26/2024 2:28 PM CDT) Anatomical Region Laterality Modality Vascular N/A Ultrasound 03/26/2024 Narrative 04/01/2024 10:48 AM CDT Nodeable Job ID: [id number] Nodeable Document ID: [id number] Dictated date/time: [id number] RENAL ARTERY DOPPLER REASON FOR STUDY Hypertension. FINDINGS The renal arteries are patent bilaterally. The peak systolic velocity on the right is 134 cm/sec and on the left is 139 cm/sec. ??Renal aortic ratio is 1.3 on the right and 1.3 on the left. IMPRESSION Patent renal arteries bilaterally with no significant stenosis. Job ID/Internal Job ID: ??[id number] us [place] Yee MD [facility] [place] PROCEDURES Final Resul t documented in this encounter Visit Diagnoses Diagnosis Resistant hypertension Renovascular hypertension Secondary renovascular hypertension, unspecified documented in this encounter Care Teams Pump Technician Relationship Specialty Start Date End Date Mick Flowers MD PCP - General 05/14/17 documented as of this encounter
--- OUTSIDE RECORDS SUMMARY | 2024-06-29 00:26 | XMS_ITS | Encounter Summary ---
Author Organization [facility] Address [address] [place] [address] Care Team Providers Care Human Resources Support Specialist Name Role Phone Mick Flowers MD Primary Care Provider [phone] Reason for Visit * Auth/Cert (Routine) Specialty Diagnoses / Procedures Referred By Contac t Referred To Contact Diagnoses Neurogenic bladder Urge urinary incontinence Neurogenic bladder [N31.9] Urge urinary incontinence [N39.41] Procedures [place] CYSTOURETHROSCOPY INJ CHEMODENERVATION BLADDER [place] CYSTOURETHROSCOPY INJECTION BOTOX 300 UNITS CYSTOSCOPY Referral ID Status Reason Start Date Expiration Date Visits Re quested Visits Authorized [id number] 1 1 Encounter Details Date Type Department Care Team (Late st Contact Info) Description 11/28/2023 1:34 PM CDT - 11/28/2023 4:07 PM CDT Hospital Encounter [facility] Operating Room [id number] [place] [address] Marquis Lopez MD [address] [facility] [address] [place], [place] [id number] Neurogenic bladder (Primary Dx); Urge urinary incontinence [...] on file 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 Diet: Carbon diet: At first eat a bland diet; [...] . Future Appointments Date Time Provider Department [place] 12/11/2023 11:00 AM Cherry Minor MD MS [...] Sunday 8 AM to 5:00 PM: call [phone] and ask for a member of your doctor's team. For urgent matters after 5:00 PM during the week, or on weekends or holidays, call [phone] and ask to have the Urology Bell Spinner Sousaphones Physician paged for you. You have received anesthesia, therefore, for the next 24 hours and/or while taking narcotic pain medication; -Do NOT drive a vehicle -Do NOT drink alcohol -Do NOT make important personal or business decisions or sign legal documents. Examples of narcotic pain medication include Percocet, Oxycontin, [place], Hydrocodone, and Oxycodone. FAQs (frequently asked questions) [...] physical therapy, we are available to assist: [facility] STAR: [facility] [phone] [place] [phone] [facility] [phone] How are some things that you can [...] given by your doctor or other health anesthesiologist and critical care. documented in this encounter Medications at Time [...] Preoperative Evaluation Record Evaluation type/location: TPAP from [facility] Planned procedure site: [facility] OR Date: 11/22/23 Anesthesia Evaluation NOTE: [...] cognitive impairment and carotid artery stent Comments: [facility] Sclerosis clinic [place] 10/2022 Cardiovascular + Hypertension (states his BP has been running high recently and has an apt with cardiology in a couple months to address) Hypertension year diagnosed: 1984. Typical systolic BP - 150 Typical diastolic BP - 95 + Hyperlipidemia (on statin) Pertinent negatives: CAD ; KS ; CABG ; valvular heart disease; atrial [...] provided by telephone and electronically sent via [employer]. Patient verbalized understanding of instructions. Blood bank [...] (LIPITOR) 40 mg tablet 11/14/2023 04/05/22 -- Provider, MD Bettie BD Insulin Syringe Ultra-Fine 0.5 mL 30 [...] Medication protocol when under care of a PARTS COUNTER SALESPERSON Planned anesthesia: General Informed Consent: Anesthesia plan [...] in this encounter Nursing Notes * Rafia Hammer, RN - 11/27/2023 1:51 PM CDT Patient states understanding to arrive at [facility] at 1345 on 11/28/23. Patient states procedure [...] into the bladder Surgeon: Marquis Lopez MD Dental Appliance Repairer: None is available Anesthesia: General Complications: None [...] MD - Primary Anesthesiologist: Johnny Cervantes MD PARTS COUNTER SALESPERSON: Lexii Gallego CRNA Motorcoach Operator: Kimberly Conteh RN Scrub: Charlene Mckenna [facility] Scrub: Windy Sanabria ST DATE OF SURGERY [...] case * Pre-Procedure Instructions - Vi Marcano, REMOTE ENCODING OPERATIONS SUPERVISOR - 11/22/2023 2:35 PM CDT [facility] Planning CPAP Clinic Location: [facility] The night before your surgery: * Do [...] Planning Perioperative Nursing Note Telephone Preoperative Evaluation ([facility]) - TELEPHONE ONLY, NO PHYSICAL [...] Chart: Copy requested from other (Comment) (patient) Communication/Screw Machine Operator Single Spindle Needs Communication Needs: Glasses Does caregiver's language differ from patient's?: No Assistive Devices/DME: None Discharge Planning Type of Residence: Private residence Living Arrangements: Spouse/significant other Support Systems: Spouse/significant other Assistance Needed: Spouse to provide discharge transportation Patient expects to be discharged to:: Private residence SUEDING MACHINE OPERATOR NO ADDITIONAL COMMENTS/ FOLLOW UP * Pre-Procedure [...] remove nail coverings, artificial nails and nail greenlandic prior to the day of surgery. You should leave your valuables and any jewelry at home. No metal or piercings are allowed in the operating room. You should bring your insurance card, a photo ID (example: Fuse Assembler's License) and a method of payment for [...] Chart. If you are having surgery at [facility], please arrive on the day of surgery [...] Remove nail coverings, artificial nails and nail greenlandic. Place clean linens on your bed the [...] questions, please call the CPAP Staff at [phone], Sunday-Sunday 8am-4:30pm. All patients should read the below section: COVID 19 Updates & Visitor Policy: Please access [email or web address] for the most updated information. Information on [facility]: Please view [email or web address] (Patient & Visitor Information) for additional details regarding Advanced Directive forms, AWARE, directions, parking information, lodging, Internet access, dining and more. Information on [facility] or [facility] ([facility]): Please view [email or web address] (Patient and Visitor Information) for parking/directions and more. For MyChart information, to activate account or password recovery, please go to [email or web address] or call [phone] (toll-free: [phone]), Sun- Sunday 8am-5pm. Information for Suicide Prevention: National Suicide Prevention Lifeline (7-326- 281-HZZG (6511)) or call or text 178. [employer] resources: LicenseMetrics.Tinteo. Surgery Times: For patients having surgery @ [facility] or [facility] ([facility]), if your surgeon's office has not notified you of your surgery time by NOON THE BUSINESS DAY BEFORE your surgery, please call [phone] and ask for your surgeon's office Dr. Lopez The [facility] for Preoperative Assessment & Planning ([facility]) does not provide arrival times for the [...] * POC ISTAT (11/28/2023 2:45 PM CDT) [facility] K POC 3.8 3.3 - 4.9 mmol/L Comment: Interpretive Data This method is not able to assess for hemolysis, which may falsely increase potassium concentrations. If further testing is needed to evaluate this result, consider in-laboratory plasma potassium. Current Interpretive Data was last revised on 2022. POC Device Number [id number] [place] [employer] POC Performer [id number] [place] GONZALEZ Blood 11/28/2023 2:45 PM CDT 11/28/2023 2:45 PM CDT Marquis Lopez MD LAB BLOOD ORDERABLES Final Res ult Performing Organization Address [facility] de Phone Number [place] HAWKWCH [address] [employer] [place] [address] * (ABNORMAL) POC ISTAT (11/28/2023 2:38 PM CDT) [facility] K POC 5.5(H) 3.3 - 4.9 mmol/L Comment: Interpretive Data This method is not able to assess for hemolysis, which may falsely increase potassium concentrations. If further testing is needed to evaluate this result, consider in-laboratory plasma potassium. Current Interpretive Data was last revised on 2022. POC Device Number [id number] [employer] POC Performer [id number] [place] [facility] Blood 11/28/2023 2:38 PM CDT 11/28/2023 2:38 PM CDT Marquis Lopez MD LAB BLOOD ORDERABLES Final Res ult Performing Organization Address [facility] de Phone Number [facility] HAWKWCH [address] [employer] [place] [address] documented in this encounter Visit Diagnoses Diagnosis Neurogenic bladder- Primary Neurogenic bladder, NOS Neurogenic bladder Neurogenic bladder, NOS Urge urinary incontinence Urge incontinence Urge urinary incontinence Urge incontinence documented in [...] Bag 11/28/2023 2:39 PM CDT 30 mL/hr documented in this encounter Historical Medications * [...] njection - ADS Override Pull 1 11/28/2023 onabotulinumtoxin A (BOTOX) injection 1 10/2023 scopolamine patch 72 hour 1 patch 1 024 sodium chloride 0.9% flush 0.5-20 mL 1 10/2023 sodium chloride 0.9% irrigation 1 4 sodium chloride bacteriostat ic 0.9 % injection 1 11/28/2023 Discharge Count Last Ordered Date First Orde red Date DISCHARGE PATIENT 1 11/28/2023 documented in this encounter Care Teams Human Resources Support Specialist Relationship Specialty Start Date End Date Mick Flowers MD PCP - General 05/14/17 documented as of this encounter
--- OUTSIDE RECORDS SUMMARY | 2024-06-29 00:26 | XMS_ITS | Encounter Summary ---
Author Organization [facility] Address [address] [place] [address] Phone Care Team Providers Care Director Of Philanthropy Name Role Phone Mick Flowers MD Primary Care Provider [phone] Encounter Details Date Type Department Care Team (Late st Contact Info) Description 03/19/2024 Orders Only [facility] Cardiology [address] [facility] Advanced Medicine 8th [place] [address] [place] [address] Georgia Yee MD [address] [facility] [address] [place] [address] High risk medication use (Primary Dx); Benign essential hypertension Social History Tobacco Use Types Packs/Day [...] on file 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 Gender Identity Not on file Sexual Orientation Not on file 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 on file Not on file documented as of this encounter Ordered Prescriptions Prescription Sig Dispense Quantity Refills Last Filled Start Date End Date spironolactone (ALDACTONE) 25 mg tablet Take 1 tablet (25 mg total) by mouth daily 30 tablet 11 03/19/2024 03/19/2024 documented in this encounter Plan of Treatment Not on file documented as of this encounter Procedures Procedure Name Priority Date/Time Associated Diagnosis Comments BASIC METABOLIC PANEL Routine 04/03/2024 11:54 AM CDT High risk medication use Benign essential hypertension documented in this encounter Results * (ABNORMAL) Basic metabolic panel (04/03/2024 11:54 [...] LAB BLOOD ORDERABLES Final Re sult [facility] [employer] [address] [place] [address] documented in this encounter Visit Diagnoses Diagnosis High risk medication use- Primary Benign essential hypertension Essential hypertension, benign documented in this encounter Discontinued Medications Medication Sig Discontinue Reason Start Date End Da te POTASSIUM CHLORIDE ER 20 mEq CR tabletIndications:supple ment Take 1 tablet (20 mEq total) by mouth every morning Other 04/23/2018 03/19/2024 documented as of this encounter Care Teams Director Of Philanthropy Relationship Specialty Start Date End Date Mick Flowers MD PCP - General 05/14/17 documented as of this encounter
--- OUTSIDE RECORDS SUMMARY | 2024-06-29 00:26 | XMS_ITS | Encounter Summary ---
Author Organization [facility] Address [address] [place] [address] Phone Care Team Providers Care Real Estate Listing Consultant Name Role Phone Mick Flowers MD Primary Care Provider [phone] Encounter Details Date Type Department Care Team (Late st Contact Info) Description 04/04/[address] 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
--- OUTSIDE RECORDS SUMMARY | 2024-06-29 00:26 | XMS_ITS | Encounter Summary ---
Author Organization [facility] Address [address] [place] [address] Phone Care Team Providers Care Roll Dough Divider Name Role Phone Mick Flowers MD Primary Care Provider [phone] Encounter Details Date Type Department Care Team (Late st Contact Info) Description 11/21/2023 Orders Only [facility] Urology [address] [facility] [address] [place] [address] Marquis Lopez MD [address] [facility] [address] [place] [address] Urge urinary incontinence (Primary Dx) Social History Tobacco Use Types Packs/Day Years Used Date Smoking Tobacco: Never Smokeless Tobacco: Never Alcohol Use Standard Drinks/Week Comments Yes 0 (1 standard drink = 0.6 oz pur e alcohol) SOCIAL AUDIT-C Answer Date Recorded Q1: How often do you have a drink containing alc ohol? 2-3 times a week 11/15/2023 Q2: How many drinks containi ng alcohol do you have on a typical day when you are drinking? 1 or 2 11/15/2023 Q3: How often do you have si x or more drinks on one occasion? Never 11/15/2023 Personal Safety Answer Date Recorded Have you ever been in or are you currently in a harmful physical or emotional relationship or is someone making you feel afraid or unsafe? 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 on file Not on file documented as of this encounter Ordered Prescriptions Prescription Sig Dispense Quantity Refills Last Filled Start Date End Date sulfamethoxazole-t rimethoprim (BACTRIM DS) 800-160 mg per tabletIndications: Urge urinary incontinence Take 1 tablet by mouth 2 (two) times a day for 3 days 6 tablet 11/21/2023 11/24/2023 documented in this encounter Plan of Treatment Not on file documented as of this encounter Visit Diagnoses Diagnosis Urge urinary incontinence- Primary Urge incontinence documented in this encounter Care Teams Roll Dough Divider Relationship Specialty Start Date End Date Mick Flowers MD PCP - General 05/14/17 documented as of this encounter
--- OUTSIDE RECORDS SUMMARY | 2024-06-29 00:27 | XMS_ITS | Encounter Summary ---
Author Organization [facility] Healthcare Address [address] [place] [address] Care Team Providers Care Transportation Worker Name Role Phone Mick Flowers MD Primary Care Provider [phone] Reason for Referral * Diagnostic Imaging (Routine) - Closed Specialty Diagnoses / Procedures Referred By Contac t Referred To Contact Radiology Diagnoses Mechanical low back pain Procedures IR Facet Block Lumbar Sacral First Level Right Walter Slaughter MD [address] [address] Phone: tel: fax: [address] [phone] Referral ID Status Reason Start Date Expiration Date Visits Re quested Visits Authorized [id number] Closed 10/23/2023 11/21/2024 1 1 Reason for Visit * Diagnostic Imaging (Routine) - Closed Specialty Diagnoses / Procedures Referred By Contac t Referred To Contact Radiology Diagnoses Mechanical low back pain Procedures IR Facet Block Lumbar Sacral First Level Right Walter Slaughter MD [address] [facility] [address] [place] [address] Phone: tel: fax: [address] [phone] Referral ID Status Reason Start Date Expiration Date Visits Re quested Visits Authorized [id number] Closed 10/23/2023 11/21/2024 1 1 Encounter Details Date Type Department Care Team (Latest Contact Info) Description 10/30/2023 2:01 PM CDT - 10/30/2023 11:59 PM CDT Hospital Encounter [facility] [address] [place], [place] [id number] Walter Slaughter MD [address] [facility] [address] [place] [address] Mechanical low back pain Discharge Disposition: Discharge [...] on file 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 Gender Identity Not on file Sexual Orientation Not on file 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 Triamcinalone (steroid medicine for inflammation and pain). [...] those with type I diabetes. Check fasting (quality technician prior to first meal of the day) [...] concerns after hours, call our exchange at [phone]. For all other questions regarding the procedure, please call our office at [phone]. Pain Diary Please fill out the pain diary chart below and message via [employer] call or call the medical provider who [...] by mouth nightly 60 tablet 2 05/16/2022 POTASSIUM CHLORIDE ER 20 mEq CR tabletIndication s:supplement Take 1 tablet (20 mEq total) by mouth every morning 5 04/23/2018 09/25/202 4 documented as of this encounter Discharge Disposition Disposition Code Departure Means Destination Discharge to home or self care documented in this encounter Progress Notes * Walter Slaughter MD - 10/30/2023 2:40 PM CDT Right L4-5 Facet Joint Injection [facility] Department of Orthopedic Surgery Division of Physical Medicine and Rehabilitation Patient name: Doc Emery Date of : 1965 Date of service: 10/30/2023 Doc Emery presents to the fluoroscopy suite [...] the facet joint. Then a combination of 1 mL of 1% lidocaine and 40 mg of 40 mg/mL triamcinalone was infused. The patient tolerated the procedure without complications. Pre and post procedure blood pressure were stable. The patient was given verbal as well as written follow-up instructions. At the time of discharge following today's procedure, the patient was able [...] RIGHT Schedule Routine, Read Routine (OP Routine) 10/30/2023 3:19 PM CDT Mechanical low back pain documented in this encounter Results * IR Facet Block Lumbar Sacral First Level Right (10/30/2023 3:19 PM CDT) Narrative [facility] - 10/30/2023 3:20 PM CDT The images from this study are not interpreted by Radiology. ??Please refer to the physician's procedure / OR operative note. us Walter Slaughter MD IMG IR PROCEDURES Final Re sult [facility] documented in this encounter Visit Diagnoses Diagnosis Mechanical low back pain Lumbago documented in this encounter Administered Medications Inactive Administered Medications - up to 3 most recent administrations Medication Order MAR Action Action Date Dose Rate Site iohexoL (OMNIPAQUE) 300 mg iodine/mL injection solution As needed, Starting on Sun10/30/23 at 1514, Intra-Op Given 10/30/2023 3:14 PM CDT 0.5 mL lidocaine (PF) (XYLOCAINE) 10 mg/mL (1 %) preservative free injection As needed, Starting on Sun10/30/23 at 1518, Intra-Op Given 10/30/2023 3:18 PM CDT 6 mL triamcinolone (KENALOG) 40 mg/mL injection As needed, Starting on Sun10/30/23 at 1518, Intra-Op Given 10/30/2023 3:18 PM CDT 40 mg documented in this encounter Care Teams Transportation Worker Relationship Specialty Start Date End Date Mick Flowers MD PCP - General 05/14/17 documented as of this encounter
--- OUTSIDE RECORDS SUMMARY | 2024-06-29 00:27 | XMS_ITS | Encounter Summary ---
Author Organization [facility] Healthcare Address [address] [place] [address] Care Team Providers Care Outsole Rounder Name Role Phone Mick Flowers MD Primary Care Provider [phone] Reason for Visit * Auth/Cert (Routine) Specialty Diagnoses / Procedures Referred By Contac t Referred To Contact Diagnoses Neurogenic bladder OAB (overactive bladder) Urge urinary incontinence Neurogenic bladder [N31.9] OAB (overactive bladder) [N32.81] Urge urinary incontinence [N39.41] Procedures MI CYSTOURETHROSCOPY INJ CHEMODENERVATION BLADDER MI CYSTOURETHROSCOPY INJECTION BOTOX 300 UNITS CYSTOSCOPY Referral ID Status Reason Start Date Expiration Date Visits Re quested Visits Authorized [id number] 1 1 Encounter Details Date Type Department Care Team (Late st Contact Info) Description 12/13/2022 12:00 PM CDT - 12/13/2022 1:15 PM CDT Surgery [facility] Operating Room [address] [place] [address] Marquis Lopez MD [address] [facility] [address] [place] [address] INJECTION BOTOX 300 UNITS Surgery Details Date/Time Status Location OR Service Patient Class Case Cl ass Case Type Trauma Case? 12/13/2022 12:00 PM Posted [facility] OPERATING ROOM OR Urology Outpatient Elective Panel [...] often do you have a drink containing alcohol? 4 or more times a week 12/13/2022 Q2: How many drinks containi ng alcohol do you have on a typical day when you are drinking? 3 or 4 Q3: How often do you have si x or more drinks on one occasion? 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 on file Not on file documented as of this encounter Last Filed Vital Signs Vital Sign Reading Time Taken Comments Blood Pressure 119/75 12/13/2022 11:35 AM CDT Pulse 72 12/13/2022 11:35 AM CDT Temperature 36.3 ??C (97.3 ??F) 12/13/2022 11:35 AM C DT Respiratory Rate 18 12/13/2022 11:35 AM CDT Oxygen Saturation 99% 12/13/2022 11:35 AM CDT Inhaled Oxygen Concentration - - Weight 79.8 kg (176 lb) 11/14/2022 3:00 PM CDT Height 177.8 cm (5' 10 ) 11/14/2022 3:00 PM CDT Body Mass Index 25.25 11/14/2022 3:00 PM CDT documented in this encounter Discharge Instructions * Discharge Instructions* Ana Pettit RN - 12/13/2022 11:27 AM CDT You have received anesthesia, therefore, for the next 24 hours and/or while taking narcotic pain medication; -Do NOT drive a vehicle -Do NOT drink alcohol -Do NOT make important personal or business decisions or sign legal documents. Examples of narcotic pain medication include Percocet, Oxycontin, Billings, Hydrocodone, and Oxycodone. FAQs (frequently asked questions) [...] physical therapy, we are available to assist: [facility] STAR: [facility] [phone] [place] [phone] [facility] [phone] How are some things that you can [...] given by your doctor or other health hearing care practitioner. * Attachments The following attachments cannot be sent through Care Everywhere. * Phenazopyridine (By mouth) (Bulgarian) documented in this encounter Medications at Time of Discharge ALPRAZolam (XANAX) 0.25 mg tabletIndication s:sleep Take 3 tablets (0.75 mg total) by mouth nightly as needed for sleep 08/26/2022 atorvastatin (LIPITOR) 40 mg tabletIndication s:hyperlipidemia Take [...] (25 mg total) by mouth every morning valsartan (DIOVAN) 320 mg tabletIndication s:hypertension Take 1 tablet (320 mg total) by mouth nightly 07/19/2022 phenazopyridine (PYRIDIUM) 200 mg tablet Take 1 tablet (200 mg total) by mouth 3 (three) times a day as needed (pain or burning) for up to 10 days 20 tablet 12/13/2022 3 amitriptyline (ELAVIL) 25 mg tabletIndication s:abdominal pain Take 2 tablets (50 mg total) by mouth nightly 60 tablet 2 05/16/2022 4 EDEX 20 mcg injection 20 mcg by intracavity route as needed for erectile dysfunction 06/11/2019 3 POTASSIUM CHLORIDE ER 20 mEq CR tabletIndication s:supplement Take 1 tablet (20 mEq total) by mouth every morning 5 04/23/2018 4 documented as of this encounter Ordered Prescriptions Prescription Sig Dispense Quantity Refills Last Filled Start Date End Date phenazopyridine (PYRIDIUM) 200 mg tablet Take 1 tablet (200 mg total) by mouth 3 (three) times a day as needed (pain or burning) for up to 10 days 20 tablet 12/13/2022 12/23/2022 documented in this encounter Discharge Disposition Disposition Code Departure Means Destination Comment s Discharge to home or self care documented in this encounter H&P Notes * Marquis Lopez MD - 12/13/2022 9:46 AM CDT I have reviewed the H&P, examined the patient, and endorse the findings as written. Plan of Care : Based on the above findings, I consider Doc Emery to be an acceptable risk for : Procedure(s): INJECTION BOTOX 300 UNITS CYSTOSCOPY Physical examination: GENERAL: Patient is a healthy [...] mood, oriented x 3. Source Note - Flako Damon NP - 11/17/2022 10:36 AM CDT Images from the original note were not included. ,[facility] for Preoperative Assessment and Planning Preoperative Evaluation Record Evaluation type/location: TPAP from [facility] Planned procedure site: [facility] OR Date: 11/17/22 NOTE: This note represents a preoperative evaluation initiated via telephone interview. NO PHYSICALEXAM was performed at the time of initial assessment. A physical exam may be added to this note anddocumented below. Anesthesia Evaluation Doc Emery is a 57 y.o. male Procedure(s): INJECTION BOTOX 300 UNITS CYSTOSCOPY Pre-Op Diagnosis Codes: * Neurogenic bladder [N31.9] * OAB (overactive bladder) [N32.81] * Urge urinary incontinence [N39.41] HISTORY HPI Doc Emery is a 57 y/o male with multiple sclerosis, HTN, neurogenic bladder undergoing evaluation for bladder botox injection, cystoscopy Past Medical History Information obtained from: patient and chart. Neurological + Psychiatric history - anxiety + Neuromuscular disease (age 24 diagnos. RLE weakness, visual changes, neurogenic bladder) - multiple sclerosis. Pertinent negatives: CVA/stroke; TIA; dementia/mild cognitive impairment and carotid artery stent Comments: [facility] Multiple Sclerosis clinic [facility] 10/2022 Cardiovascular + Hypertension + Hyperlipidemia (on statin) Pertinent negatives: CAD (patient denies. noted in history items); PR ; CABG ; valvular heart disease; [...] / Pertinent negatives: renal disease and dialysis Musculoskeletal/Pain + Chronic pain - back pain. Endocrine / Other + Eye disorder (2/2 Multiple sclerosis) Pertinent negatives: diabetes mellitus; thyroid disease; cancer history; rheumatological disease; transplanted organ; infectious disease (Hx of UTIs) and pancreatitis Functional Capacity Functional capacity: 4-6 METs Comments: Lift weights 3x a week cardio 2x a week I.e. stairs for 1/2 hour Able to climb 1-2 flight of stairs or ambulate 2 blocks without dyspnea or chest pain Uses cane for longer distances Review of Systems + muscle weakness (RLE, chronic) + chronic pain + vision loss (glasses) Pertinent negatives: productive cough; wheezing; SOB; recent cold/flu; fever; chest pain; palpitations; orthopnea; PND; previous transfusion; bleeding problems; syncope and dizziness PAT Summary and Plans Cardiac risk classification of planned procedure: low cardiac risk. Preoperative assessment status: complete. Additional comments: NOTE: This note represents a preoperative evaluation initiated via telephone interview. NO PHYSICAL EXAM was performed at the time of initial assessment. A physical exam may be added to this note and documented below. Doc Emery is a 57 y.o. male who is being evaluated prior to undergoing a low cardiac risk surgery. Revised Cardiac Risk Index factors are (none) for a total RCRI of 0 out of 6. Functional capacity is 4-6 METs. Obstructive sleep [...] provided by telephone and electronically sent via [employer]. Patient verbalized understanding of instructions. Blood bank needs for day of procedure: No type and screen needed Pending labs/tests include: None TPAP Complete Preoperative evaluation performed by Flako Damon NP on 11/17/22 at 10:42 AM . Patient Active Problem List Diagnosis ??? Neurogenic bladder disorder ??? Abnormality of gait and mobility ??? High risk medication use ??? Hypercholesterolemia ??? Primary insomnia ??? Multiple sclerosis (HCC) ??? Penile discharge ??? Urethral stricture ??? Urinary tract infection ??? OAB (overactive bladder) ??? Bowel incontinence ??? Cardiovascular risk factor ??? Abnormal MRI ??? Vitamin D deficiency ??? Anxiety ??? Erectile dysfunction ??? Neurogenic bladder ??? Urge urinary incontinence ??? Medication management Past Medical History: Diagnosis Date ??? Coronary artery disease ??? Hyperlipidemia ??? Hypertension Hypertension ??? Multiple sclerosis (HCC) Multiple Sclerosis Past Surgical History: Procedure Laterality Date ??? COLONOSCOPY 2020 ??? CYSTOSCOPY 2021 with botox injection; receives every 6 months ??? FACET BLOCK LUMBAR SACRAL 1 LEVEL LEFT Left 09/12/2019 ??? FACET BLOCK LUMBAR SACRAL 1 LEVEL LEFT Left 05/04/2020 ??? FACET BLOCK LUMBAR SACRAL 1 LEVEL LEFT Bilateral 11/10/2021 ??? FACET BLOCK LUMBAR SACRAL 1 LEVEL LEFT Bilateral 07/04/2022 ??? SHOULDER ARTHROSCOPY Left unknown No Known Allergies Med List Status: Nurse Complete Set By: Gregory Kaplan RN at 11/14/2022 3:07 PM Taking? Last Dose Start Date End Date Provider ALPRAZolam (XANAX) 0.5 mg tablet 11/13/2022 08/26/22 -- Bettie Batres MD amitriptyline (ELAVIL) 25 mg tablet 11/14/2022 05/16/22 -- Noam Leonard MD Take 2 tablets (50 mg total) by mouth nightly Patient taking differently: Take 1 tablet (25 mg total) by mouth 2 (two) times a day atorvastatin (LIPITOR) 40 mg tablet 11/13/2022 04/05/22 -- Provider, MD Bettie BD Insulin Syringe Ultra-Fine 0.5 mL 30 gauge x 1/2 syringe -- 08/30/22 -- Bettie Batres MD EDEX 20 mcg injection -- 06/11/19 -- Bettie Batres MD famotidine (PEPCID) 20 mg tablet Past Week 10/06/21 -- Bettie Batres MD felodipine (PLENDIL) 5 mg 24 hr tablet 11/14/2022 07/19/07 -- Bettie Batres MD hydroCHLOROthiazide (HYDRODIURIL) 25 mg tablet 11/14/2022 -- -- Bettie Batres MD POTASSIUM CHLORIDE ER 20 mEq CR tablet 11/14/2022 04/23/18 -- Bettie Batres MD valsartan (DIOVAN) 320 mg tablet 11/13/2022 07/19/22 -- Bettie Batres MD No current facility-administered medications for this encounter. Current Outpatient Medications: ??? ALPRAZolam (XANAX) 0.5 mg tablet ??? amitriptyline (ELAVIL) 25 mg tablet ??? atorvastatin (LIPITOR) 40 mg tablet ??? EDEX 20 mcg injection ??? famotidine (PEPCID) 20 mg tablet ??? felodipine (PLENDIL) 5 mg 24 hr tablet ??? hydroCHLOROthiazide (HYDRODIURIL) 25 mg tablet ??? POTASSIUM CHLORIDE ER 20 mEq CR tablet ??? valsartan (DIOVAN) 320 mg tablet ??? BD Insulin Syringe Ultra-Fine 0.5 mL 30 gauge x 1/2 syringe Social History Tobacco Use Smoking Status Never Smokeless Tobacco Never Vaping Use ??? Vaping Use: Never used Alcohol Use: Heavy Drinker (11/14/2022) AUDIT-C ??? Frequency of Alcohol Consumption: 2-3 times a week ??? Average Number of Drinks: 3 or 4 ??? Frequency of Binge Drinking: Never Substance and Sexual Activity Drug Use Yes ??? Frequency: 4.0 times per week ??? Types: Marijuana Family History Problem Relation Age of Onset ??? Melanoma Mother Family history of malignant melanoma - (Added by TW Conv) ??? Cancer Mother ??? Alcohol abuse Father ??? Cancer Father ??? Hypertension Father ??? Hypertension Other Family history of Hypertension; ??? Anesthesia problems Neg Hx ??? Malig Hypertension Neg Hx ??? Pseudochol deficiency Neg Hx ??? Malig Hyperthermia Neg Hx Relevant diagnostics: ECG(s): N/A Echocardiogram(s): N/A Stress test(s): N/A Cardiac catheterization(s): N/A PFT(s): N/A Vascular studies: N/A Other: 10/05/21 Magnetic resonance imaging (MRI) of the brain and brainstem without and with contrast Magnetic resonance imaging (MRI) of the cervical and thoracic spine without and with contrast IMPRESSION: Multiple intracranial and spinal white matter lesions compatible with multiple sclerosis. New T2 Lesions: 4 new lesions in the brain. Diffuse patchy increased T2 signal throughout the cervical and thoracic spine with discrete areas of increased signal at T3 and T12 levels. On the prior examination dated 08/09/2007, there was patchy increased signal of the cervical and thoracic spine on the sagittal sequence, however evaluation of the axial sequence is limited due to technique, and thus it is unclear if there has been progression of disease in the spine or the findings are due to differences in technique. Enhancing Lesions: None Other significant findings: Multilevel degenerative disc and joint disease, most pronounced at C6-C7, progressed compared to the prior examination. There were no vitals filed for this visit. PT: No results found for requested labs [...] within last 30 days. Romain index score: 95 documented in this encounter Miscellaneous Notes * Op Note - Marquis Lopez MD - 12/13/2022 11:53 AM CDT Date of Surgery: 12/13/2022 Preoperative diagnosis: neurogenic bladder with detrusor overactivity and urgency urinary incontinence Post-operative diagnosis: neurogenic bladder with detrusor overactivity and urgency urinary incontinence Procedure: Cystoscopy, injection of 300 units of onabotulinumtoxinA (Botox) into the bladder Surgeon: Marquis Lopez MD Case Investigator: none is available Anesthesia: General Complications: None Estimated [...] diluted with 300 units of Botox in 20 cc of [...] Op Note - Marquis Lopez MD - 12/13/2022 11:53 AM CDT Operative Progress Note Surgical Team: Surgeon(s) and Role: * Marquis Lopez MD - Primary Anesthesiologist: Adam Dsouza MD CANDY DEPOSITING MACHINE OPERATOR: Fran Wood CRNA Cardiac Cath Tech: Momo Beasley RN Scrub: Charlene Mckenna ST DATE OF SURGERY : 12/13/2022 Preoperative Diagnosis: Pre-op Diagnosis * Neurogenic bladder [N31.9] * OAB (overactive bladder) [N32.81] * Urge urinary incontinence [N39.41] Postoperative Diagnosis: Post-op Diagnosis * Neurogenic bladder [N31.9] * OAB (overactive bladder) [N32.81] * Urge urinary incontinence [N39.41] Procedure(s): Procedure(s) (LRB): INJECTION BOTOX 300 UNITS (N/A) CYSTOSCOPY (N/A) Operative Findings: Normal cystoscopy Estimated Blood Loss: No blood loss documented. Intraoperative Fluids: See Anesthesia record for mls Specimens: No specimen collected in procedure Implants: Nothing was implanted during the procedure Blood/Blood Products Transfused: 0 mls Complications: None Condition on Discharge from the operating room was stable Marquis Lopez MD Date: 12/13/2022 Time: 1:00 PM TEACHING ATTESTATION : I was present and directly participated in the entire procedure (including opening and closing). * Pre-Procedure Instructions - Flako Damon NP - 11/17/2022 10:33 AM CDT Center for Preoperative Assessment and Planning CPAP Clinic Location: [facility] The night before your surgery: * Do not eat anything after midnight the night before your procedure. The morning of your surgery: * You may have clear liquids on your surgery day. You must stop drinking two hours before you arrive to the surgery facility. Acceptable clear liquids include water, clear sports drinks, black coffee, or clear soda. DO NOT drink any [...] Take on day of surgery if needed amitriptyline (ELAVIL) 25 mg tablet Take per usual schedule atorvastatin (LIPITOR) 40 mg tablet Take per usual schedule EDEX 20 mcg injection Don't take on day of surgery famotidine (PEPCID) 20 mg tablet Take per usual schedule felodipine (PLENDIL) 5 mg 24 hr tablet Take per usual schedule hydroCHLOROthiazide (HYDRODIURIL) 25 mg tablet Don't take on day of surgery POTASSIUM CHLORIDE ER 20 mEq CR tablet Don't take on day of surgery valsartan (DIOVAN) 320 mg tablet Don't take on day of surgery General Instructions For Medications: * Stop [...] COVID-19. * Perioperative Nursing Note - Gregory Kalpan RN - 11/14/2022 3:09 PM CDT Center for Preoperative Assessment and Planning Perioperative Nursing Note Telephone Preoperative Evaluation ([facility]) - TELEPHONE ONLY, NO PHYSICAL EXAM Date: 11/14/22 Vitals: 11/14/22 1500 Weight: 79.8 kg (176 lb) Height: 177.8 cm (5' 10 ) CHEST CIRCUMFERENCE: Social History Tobacco Use Smoking Status Never Smokeless Tobacco Never Vaping Use Vaping Use: Never used Substance and Sexual Activity Drug Use Yes Frequency: 4.0 times per week Types: Marijuana Alcohol Use Q1: How often do you have a drink containing alcohol?: 2-3 times a week Q2: How many drinks containing alcohol do you have on a typical day when you are drinking?: 3 or 4 Q3: How often do you have six or more drinks on one occasion?: Never Outpatient Medications Marked as Taking for the 12/13/22 encounter (Hospital Encounter) Medication Sig Dispense Refill ALPRAZolam (XANAX) 0.5 mg tablet Take 1 tablet (0.5 mg total) by mouth nightly as needed for sleep amitriptyline (ELAVIL) 25 mg tablet Take 2 tablets (50 mg total) by mouth nightly (Patient taking differently: Take 1 tablet (25 mg total) by mouth 2 (two) times a day) 60 tablet 2 atorvastatin (LIPITOR) 40 mg tablet Take 1 tablet (40 mg total) by mouth nightly EDEX 20 mcg injection 20 mcg by intracavity route as needed for erectile dysfunction famotidine (PEPCID) 20 mg tablet Take 1 tablet (20 mg total) by mouth 2 (two) times a day as neededfor indigestion felodipine (PLENDIL) 5 mg 24 hr tablet Take 1 tablet (5 mg total) by mouth 2 (two) times a day hydroCHLOROthiazide (HYDRODIURIL) 25 mg tablet Take 1 tablet (25 mg total) by mouth every morning POTASSIUM CHLORIDE ER 20 mEq CR tablet Take 1 tablet (20 mEq total) by mouth every morning 5 valsartan (DIOVAN) 320 mg tablet Take 1 tablet (320 mg total) by mouth nightly Implants No active implants to display in this view. SKIN Piercings Remaining: No Wound (LDAs) Type of Wound (LDA): (none) SCREENINGS Romain index score: 95 NUTRITION PATIENT CARE PLANNING Advance Directives (For Healthcare) Have you reviewed your Advance Directive and is it valid for this stay?: Not applicable Advance Directive: Patient has advance directive, copy not in chart Advance Directive not in Chart: (patient) Communication/Litigation Attorney Associate Needs Communication Needs: Glasses Does caregiver's language differ from patient's?: No Assistive Devices/DME: Eyeglasses Discharge Planning Type of Residence: Private residence Living Arrangements: Spouse/significant other Support Systems: Spouse/significant other Assistance Needed: Spouse to provide discharge transportation Patient expects to be discharged to:: Private residence 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 You should leave your valuables and any jewelry at home. No metal or piercings are allowed in the operating room. You should bring your insurance card, a photo ID (example: Automotive Production Worker's License) and a method of payment for [...] Chart. If you are having surgery at [facility], please arrive on the day of surgery [...] Pathway to Excellent Care by the followinglink: [email or web address] How To Prepare Your Skin For Surgery [...] Remove nail coverings, artificial nails and nail bulgarian. Place clean linens on your bed the [...] questions, please call the CPAP Staff at [phone], Sunday-Sunday 8am-4:30pm. All patients should read the below section: All visitors/patients are being asked to wear a clean face mask when entering the hospital. COVID 19 Updates & Visitor Policy: Please access [email or web address] for the most updated information. Information on [facility]: Please view [email or web address] (Patient & Visitor Information) for additional details regarding Advanced Directive forms, AWARE, directions, parking information, lodging, Internet access, dining and more. Information on [facility] or [facility] ([facility]): Please view [email or web address] (Patient and Visitor Information) for parking/directions and more. For MyChart information, to activate account or password recovery, please go to [email or web address] or call [phone] (toll-free: [phone]). Information for Suicide Prevention: National Suicide Prevention Lifeline (7-239- 784-MIAY (2815)). Surgery Times: For patients having surgery @ [facility], if your surgeon's office has not notified you of your surgery time by 2pm THE BUSINESS DAY BEFORE your surgery, please call the surgery center at [phone] and ask for your surgeon's office Dr. Lopez. documented in this encounter Plan of Treatment Not on file documented as of this encounter Procedures Procedure Name Priority Date/Time Associated Diagnosis Comments CYSTOSCOPY 12/13/2022 10:28 AM CDT Neurogenic bladder OAB (overactive bladder) Urge urinary incontinence Special Needs 300 UNITS OF BOTOX TO BE MIXED WITH 30 CC NORMAL SALINE IN OR; CHERELLE NEEDLE FOR INJECTION INJECTION BOTOX 12/13/2022 10:28 AM CDT Neurogenic bladder OAB (overactive bladder) Urge urinary incontinence Special Needs 300 UNITS OF BOTOX TO BE MIXED WITH 30 CC NORMAL SALINE IN OR; CHERELLE NEEDLE FOR INJECTION documented in this encounter Visit Diagnoses Diagnosis Neurogenic bladder Neurogenic bladder, NOS [...] infusion 30 mL/hr, intravenous, Continuous, Starting on Sun12/13/22 at 1030, For 4 hours, Pre-Op, Use a 500 ml bag for End Stage Renal Disease Patients. Discontinue if fluid still running once patient arrives to floor. Rate/Dose Verify 12/13/2022 10:24 AM CDT 30 mL/hr New Bag 12/13/2022 10:12 AM CDT 30 mL/hr 30 mL/hr onabotulinumtoxin A (BOTOX) injection As needed, Starting on Sun12/13/22 at 1046, Intra-Op Given 12/13/2022 10:46 AM CDT 300 Units sodium chloride 0.9% irrigation As needed, Starting on Sun12/13/22 at 1045, Intra-Op Given 12/13/2022 10:45 AM CDT 3,000 mL Surgical Site documented in this encounter Discontinued Medications Medication Sig Discontinue Reason Start Date End Da te losartan (COZAAR) 100 mg tabletIndications:hype rtension Take 1 tablet (100 mg total) by mouth every morning Error 11/14/2022 urea (CARMOL) 40 % creamIndications:Hyper keratosis Apply 1 application topically every morning Error 08/05/2020 11/14/2022 documented as of this encounter Active and Recently Administered Medications Times are shown in CDT. Scheduled Medication Order 12/11/2022 12/12/2022 12/13/2022 ceFAZolin (ANCEF) 1 gram/10 mL in sterile water (premix) 2,000 mg (COMPLETED) 2,000 mg, intravenous, at 400 mL/hr, Administer over 3 Minutes, Once, On Sun12/13/22 at 1030, For 1 dose, Pre-Op, Administer within 60 minutes of incision., Indications: Prophylaxis, Surgical 1034 (Given - Provid er: Fran Wood CRNA) Continuous Medication Order 12/11/2022 12/12/2022 12/13/2022 Lactated Ringer's (LR) infusion 30 mL/hr, intravenous, Continuous, Starting on Sun12/13/22 at 1030, For 4 hours, Pre-Op, Use a 500 ml bag for End Stage Renal Disease Patients. Discontinue if fluid still running once patient arrives to floor. 1012 (New Bag - Prov ider: Mary Kay Damon RN)1024 (Rate/Dose Verify - Provider: Fran Wood CRNA)1554 (Due: Stopped) Lactated Ringer's (LR) infusion 125 mL/hr, intravenous, Continuous, Starting on Sun12/13/22 at 1145, For 4 hours, Phase I, Discontinue upon discharge from PACU to the floor. 1145 (Due) PRN Medication Order 12/11/2022 12/12/2022 12/13/2022 acetaminophen (TYLENOL) tablet 500 mg 500 mg, oral, Every 6 hours PRN, headaches, other, Breakthrough Pain and Supplement to other pain meds, Starting on Sun12/13/22 at 1108, For 2 doses, Phase I, When able to tolerate PO after consulting with Anesthesiologist. Do not administer if patient has already received Acetaminophen-containing medications in PACU., Indications: Pain diphenhydrAMINE (BENADRYL) 50 mg/mL injection 12.5 mg 12.5 mg, intravenous, Administer over 1 Minutes, Every 5 min PRN, itching, other, For Nausea, administer 25 mg IV., Starting on Sun12/13/22 at 1108, For 4 doses, Phase I, Max cumulative dose 50 mg., Indications: Itching fentaNYL (SUBLIMAZE) preservative free injection 25 mcg 25 mcg, intravenous, Every 5 min PRN, 2nd line for pain, Use Fentanyl as 1st line medication for extremely severe pain for outpatients, and follow with oral pain medication., Starting on Sun12/13/22 at 1108, For 4 doses, Phase I, Use as [...] min PRN, high blood pressure, Starting on Sun12/13/22 at 1108, Phase I, Max cumulative dose 20 mg. Dose if systolic BP greater than 180 AND heart rate less than 70., Indications: hypertension HYDROcodone-acetaminophen (NORCO) 5-325 mg per tablet 1 tablet 1 tablet, oral, Every 20 min PRN, 3rd line for pain, breakthrough pain, May use as 1st line pain medication if pain not extremely severe and patient able to tolerate PO meds. If unable to tolerate PO meds or outpatient complaining of extremely severe pain, start with Fentanyl and follow with Oral meds., Starting on Sun12/13/22 at 1108, For 2 doses, Phase I, May administer TWO pills together if pain moderate to severe and patient able to tolerate PO meds, after consulting with Anesthesiologist., Indications: Pain HYDROmorphone (DILAUDID) injection 0.2 mg 0.2 mg, intravenous, Administer over 2 Minutes, Every 5 min PRN, 1st line for pain, Use as 1st line pain med for inpatients or for patients with extremely severe pain., Starting on Sun12/13/22 at 1108, Phase I, Use as first line pain medication for inpatients. May use as first line medication for outpatients with extremely severe pain, history of opioid tolerance, or history of Chronic Pain with opioid tolerance, after consulting with Anesthesiologist. Inform anesthesiologist when dose reaches 2 mg for inpatients or 1 mg for outpatients., Indications: Chronic Pain with Opioid Tolerance, Pain, Severe Pain with Opioid Tolerance labetaloL (NORMODYNE,TRANDATE) injection 5 mg 5 mg, intravenous, Every 5 min PRN, high blood pressure, Starting on Sun12/13/22 at 1108, For 4 doses, Phase I, Max cumulative dose 20 mg. Dose if systolic blood pressure greater than 180 AND HR greater than 70. meperidine (DEMEROL) preservative free injection 12.5 mg 12.5 mg, intravenous, Administer over 5 Minutes, Every 10 min PRN, shivering, Starting on Sun12/13/22 at 1108, For 2 doses, Phase I, Max cumulative dose 25 mg., Indications: Shivering naloxone (NARCAN) 0.4 mg/mL injection 0.04-0.4 mg 0.04-0.4 mg, intravenous, Once as needed, other, excessive sedation/respiratory depression, Starting on Sun12/13/22 at 1108, For 1 dose, Phase I, Dilute 0.4 [...] (BOTOX) injection (CANCELED) As needed, Starting on Sun12/13/22 at 1046, Intra-Op 1046 (Given - Provid er: Marquis Lopez MD) ondansetron (ZOFRAN) injection 4 mg 4 mg, intravenous, Administer over 2 Minutes, Once as needed, nausea, vomiting, Starting on Sun12/13/22 at 1108, For 1 dose, Phase I, Proceed to prochlorperazine if ondansetron has been given within the last 6 hours. prochlorperazine (COMPAZINE) injection 5 mg 5 mg, intravenous, Administer over 2 Minutes, Once as needed, nausea, vomiting, Starting on Sun12/13/22 at 1108, For 2 doses, Phase I, If nausea/vomiting not relieved by ondansetron within 30 minutes or if ondansetron has been given within the last 6 hours. May repeat in 15 minutes of nausea not relieved. sodium chloride 0.9% irrigation (CANCELED) As needed, Starting on Sun12/13/22 at 1045, Intra-Op 1045 (Given - Provid er: Marquis Lopez MD) documented in this encounter Orders Medications Ordered That Julio Cesar ht Not Have Been Administered Count Last Ordered Date First Ordered Date acetaminophen (TYLENOL) tablet 500 mg 1 ceFAZolin (ANCEF) 1 gram/10 mL in sterile water (premix) 2,000 mg 1 12/13/2022 diphenhydrAMINE (BENADRYL) 5 0 mg/mL injection 12.5 mg 1 12/13/2022 famotidine (PEPCID) injection 20 mg 1 12/13 fentaNYL (SUBLIMAZE) preserv ative free injection 25 mcg 1 12/13/2022 hydrALAZINE (APRESOLINE) injection 5 mg 1 0 12/13/2022 HYDROcodone-acetaminophen (N ORCO) 5-325 mg per tablet 1 tablet 1 12/13/2022 HYDROmorphone (DILAUDID) injection 0.2 mg 1 12/13/2022 labetaloL (NORMODYNE,TRANDAT E) injection 5 mg 1 12/13/2022 Lactated Ringer's (LR) infusion 1 lidocaine PF (XYLOCAINE) 10 mg/mL (1 %) preservative free injection 2-10 mg 1 12/13/2022 meperidine (DEMEROL) preserv ative free injection 12.5 mg 1 12/13/2022 naloxone (NARCAN) 0.4 mg/mL injection 0.04-0.4 mg 1 12/13/2022 ondansetron (ZOFRAN) injection 4 mg 1 12/13 prochlorperazine (COMPAZINE) injection 5 mg 1 12/13/2022 scopolamine patch 72 hour 1 patch 1 023 sodium chloride 0.9% flush 0.5-20 mL 1 11/24 Discharge Count Last Ordered Date First Orde red Date DISCHARGE PATIENT 1 12/13/2022 documented in this encounter Care Teams Outsole Rounder Relationship Specialty Start Date End Date Mick Flowers MD PCP - General 05/14/17 documented as of this encounter
--- OUTSIDE RECORDS SUMMARY | 2024-06-29 00:27 | XMS_ITS | Encounter Summary ---
Author Organization [facility] Address [address] [place] [address] Phone Care Team Providers Care Tuft Machine Operator Name Role Phone Mick Flowers MD Primary Care Provider [phone] Encounter Details Date Type Department Care Team (Late st Contact Info) Description 11/30/2022 Telephone [facility] Orthopaedic Surgery [address] [place] [address] 2nd [address] [place] [address] Salvador Rodriguez CMA Social History Tobacco Use Types Packs/Day Years Used Date Smoking Tobacco: Never Smokeless Tobacco: Never Alcohol Use Standard Drinks/Week Comments Yes 0 (1 standard drink = 0.6 oz pur e alcohol) SOCIAL AUDIT-C Answer Date Recorded Q1: How often do you have a drink containing alc ohol? 2-3 times a week 11/14/2022 Q2: How many drinks containi ng alcohol do you have on a typical day when you are drinking? 3 or 4 11/14/2022 Q3: How often do you have si x or more drinks on one occasion? 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 Walter Rojas Location: [facility] Orthopedics / [place], [address] [place] [address] Will you receive any vaccinations including the COVID booster 2 weeks prior to or 2 weeks after your scheduled procedure: No Allergic to x-ray contrast dye or local anesthetics: No Not Applicable Do you have a pacemaker or defibrillator? No Do you have cardiology clearance to obtain RFA? N/A Are you or plan on becoming prior to the scheduled procedure: N/A NSAIDS/Blood thinners: No Not Applicable Core Loader: Not Applicable Are you on oxygen or have a tracheostomy? (Patients on supplemental oxygen or with current tracheostomy cannot be scheduled at [facility]) No Diabetic: No Not Applicable Confirm patient's insurance: What is patient's BMI (Maximum BMI at [facility] is 45) 25.25 Provided Pre-Procedure Instructions including arrival time: Yes My Chart Patient encouraged to call with issues/concerns. documented in this encounter Plan of Treatment Not on file documented as of this encounter Visit Diagnoses Not on filedocumented in this encounter Care Teams Tuft Machine Operator Relationship Specialty Start Date End Date Mick Flowers MD PCP - General 05/14/17 documented as of this encounter
--- OUTSIDE RECORDS SUMMARY | 2024-06-29 00:27 | XMS_ITS | Encounter Summary ---
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
--- OUTSIDE RECORDS SUMMARY | 2024-06-29 00:27 | XMS_ITS | Encounter Summary ---
Author Organization [facility] Address [address] [place] [address] Phone Care Team Providers Care Diamond Sander Name Role Phone Mick Flowers MD Primary Care Provider Reason for Referral * Diagnostic Imaging (Routine) - Closed Specialty Diagnoses / Procedures Referred By Contac t Referred To Contact Radiology Diagnoses Mechanical low back pain Procedures IR Facet Block Lumbar Sacral First Level Right Walter Rojas MD [address] [place] [address] Phone: tel: fax: [address] [address] Referral ID Status Reason Start Date Expiration Date Visits Re quested Visits Authorized [id number] Closed 10/23/2023 11/21/2024 1 1 Reason for Visit * Reason Comments Pain Encounter Details Date Type Department Care Team (Late st Contact Info) Description 10/23/2023 10:15 AM CDT Office Visit [facility] Orthopaedic Surgery [address] [facility] [address] [place] [id number] Walter Rojas MD [address] [place] [address] Mechanical low back pain (Primary Dx); Lumbar facet arthropathy Social History Tobacco Use Types Packs/Day Years [...] making you feel afraid or unsafe? 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 Given the chronicity, severity of symptoms and previous reliefof pain with greater than 50% improvement for greater than 6 months, I recommend: Right L4/L5 intra-articular facet injection under fluoroscopy guidance. Continue independent exercise program. Fluoroscopically (X-ray) Guided Joint Injection Pre-Procedure Instructions Vaccinations and your Steroid Injection To ensure effectiveness of your COVID 19 vaccine, Covid 19 booster, Flu vaccine, and any other vaccine and to improve your ability to monitor potential side effects, you should speak with your provider if: You had a vaccine or booster in the last 2 weeks You plan to have the vaccine or booster You are immunocompromised Should you have any questions regarding your procedure, contact our office at [phone]. About the procedure: A mixture of a cortisone and local anesthetic (numbing medication) will be injected into the joint.The anesthetic typically numbs the area for 1-4 hours depending on the anesthetic used, and may provide some immediate relief. The cortisone medication usually takes 3-5 days to start to take effect and up to two weeks to get the full benefit. Should you have any questions regarding your procedure, contact our office at [phone]. Prior to the procedure: Allergies to x-ray contrast dye or local anesthetics: Alert our office if you have any history of allergies to local anesthetics (such as Novocain or lidocaine) or x-ray contrast dye. You do not need to stop medications (blood pressure meds, diabetes meds, etc.) prior to the procedure. On the day of the procedure: Please arrive 30 minutes prior to your injection time for registration. If you arrive more than 15 minutes past your scheduled injection time, your procedure may need to be rescheduled. After the procedure: You will be given written discharge instructions after your procedure. Resume your normal diet Avoid having a vaccination two weeks after the procedure as your immune response maybe quieted by the steroids. Avoid exercising for 24 hours. Stay out of a pool, bath or hot tub for two days after the procedure. Showers are OK. For soreness, you may place an ice pack once an hour at the injection site for 15-20 minutes. Drink plenty of fluids to flush the contrast dye out of your system. Resume your medicine including any blood thinner you held prior to the injection. Diabetic patients: Steroid injections, no matter what location, may lead to higher blood glucose (sugar) levels temporarily. Most commonly, the higher levels will return to normal within 1-3 days, though effects may last longer. Rises in blood glucose levels may be more significant in patients withpoorly controlled type 2 diabetes (those with HbA1c levels greater than 8) and those with type I diabetes. Therefore we ask that you follow the additional guidelines below: Check fasting (transmission superintendent prior to first meal of the day) and post-prandial (following meals) blood glucose levels 3 days prior to scheduled injection. Check fasting and post-prandial blood glucose levels for 7 days following your injection. If your blood glucose is greater than 200mg/dL on the day of the scheduled procedure, the proceduremay be rescheduled due to increased risk of complications, per physician's judgment. Contact the physician who manages your diabetes if your blood sugar is significantly elevated (for example, over 100mg/dL higher than your pre- injection level) or if blood sugar levels remain elevated 2 days after receiving the injection, to discuss whether a change in medication dosing is warranted. Procedure Billing: Our [facility] orthopedic specialists treat patients at [facility] facilities, whichmeans you may receive two separate bills. One bill is for the physician and the other is for the facility charges. If you have questions regarding a jewell estimation for the services or a recently received bill, please contact: [facility] [employer] Jewell Estimation: [phone] or toll free [phone] [facility] Patient Services: [phone] or toll free [phone] [facility] Patient Billing Services: [phone] or toll free [phone] documented in this encounter Progress Notes * Walter Rojas MD - 10/23/2023 10:15 AM CDT ESTABLISHED PATIENT VISIT INTERIM HISTORY: Doc Emery is a 58 y.o. male who presents to the office today for follow-up. Reports persistentright-sided low back pain. Symptoms are continuous to some extent, aggravated with rotation of the spine. Pain does not refer or radiate. He has been through physical therapy in the past which has not been specifically helpful. However he is engaged in an exercise program on a daily basis, independently. Past medical history and review of systems are otherwise without significant change from previous visit. PHYSICAL EXAM: On examination today, the patient is alert and appropriate, and in no apparent distress. Transfers sit to stand independently. Ambulates independently. Lumbar range of motion provokes typical pain sharply with right side bending greater than right rotation/extension. REVIEW OF X-RAYS/STUDIES: Lumbar spine MRI dated November 2022 is reviewed: Moderate bilateral L4-L5 facet arthropathy including mild effusion. There is L5/S1 degenerative disc change with protrusion causing relative right foraminal/lateral recess narrowing, right L5 nerve root contact IMPRESSION/DIAGNOSIS: Extension/rotation bias right-sided low back pain. He has a longstanding therapeutic, strength and conditioning program he does daily. L4/L5 intra- articular facet injection was previously helpful with greater than 50% relief for greater than 6 months at a time last provided over a year ago. Right L5 transforaminal injection was not helpful. The patient continues to have moderate to severe chronic low back pain, axial, that causes functional deficit. The patient has pain present for at least 3 months and has completed non invasive conservative measures including physical therapy. The patient does not have radiculopathy or neurogenic claudication.There is no non-facet pathology per clinical assessment or radiology studies that could explain thesource of the patient's pain. The patient continues to have pain with an BUSINESS OPERATIONS CONSULTANT of 3/10 and functionaldeficits (please see PROMIS score attached) 07/04/2019 09/12/2022 10/23/2023 PROMIS Pain Interference 38.7 59 61.5 Physical Function V2.0 55.2 40.1 35.5 Anxiety V1.0 32.9 40.9 36.6 Depression 34.2 34.2 34.2 TREATMENT PLAN: We discussed things in detail today. Given the chronicity, severity of symptoms and previous reliefof pain with greater than 50% improvement for greater than 6 months, I recommend: Right L4/L5 intra-articular facet injection under fluoroscopy guidance. Continue independent exercise program. The rational for all recommendations, as well as relevant risks, are discussed with the patient in detail. The patient expresses understanding, comfort and agreement with the plan, all questions are answered. No orders of the defined types were placed in this encounter. This note was dictated using [employer] software. This note was not read in detail; therefore, variances and inaccuracies may occur. Walter Dockery MD Professor Physical Medicine and Rehabilitation [facility] * PhoenixAdore LPN - 10/23/2023 10:15 AM CDT Procedure Pre-Screening Assessment Will you receive any vaccinations including the COVID booster 2 weeks prior to or 2 weeks after your scheduled procedure: No Allergic to x-ray contrast dye or local anesthetics: No Not Applicable Do you have a pacemaker or defibrillator? Unknown Do you have cardiology clearance to obtain RFA? N/A Are you or plan on becoming prior to the scheduled procedure: N/A NSAIDS/Blood thinners: No Not Applicable Faith Doctor: Not Applicable If patient requires an per diem interpreter, do let radiology scheduling ([phone]) know at the time of scheduling and they will schedule the per diem interpreter for patient Are you on oxygen or have a tracheostomy? (Patients on supplemental oxygen or with current tracheostomy cannot be scheduled at [facility]) No Diabetic: No Not Applicable Confirm patient's insurance: Yes What is patient's BMI (Maximum BMI at [facility] is 45) 25 Have you had conservative treatment for your pain? N/A Patient instructed to come with a bus van driver?: N/A Patient with commercial insurance or those with Medicare receiving Facet injection informed that ifprocedure is not approved by 3 pm the day prior, it will be rescheduled?: N/A Provided Pre-Procedure Instructions including arrival time: Yes My Chart Remind patient to submit pain diary after their injection: Yes Does the ordering provider's note have a disability scale? Yes, date 10/23/23 Disability scale must be in the chart for ALL Medicare Facet injection before they will be approved. Use .PROMISALL to pull in disability scale into the chart for [facility] ortho patients. Patient encouraged to call with issues/concerns. documented in this encounter Plan of Treatment Not on file documented as of this encounter Results * IR Facet Block Lumbar Sacral First Level Right (10/30/2023 3:19 PM CDT) Narrative [facility] - 10/30/2023 3:20 PM CDT The images from this study are not interpreted by Radiology. ??Please refer to the physician's procedure / OR operative note. Walter Rojas MD IMG IR PROCEDURES Final Re sult [facility] documented in this encounter Visit Diagnoses Diagnosis Mechanical low back pain- Primary Lumbago Lumbar facet arthropathy Spondylosis of unspecified site without mention of myelopathy Mechanical low back pain Lumbago documented in this encounter Care Teams Diamond Sander Relationship Specialty Start Date End Date Mick Flowers MD PCP - General 05/14/17 documented as of this encounter
--- OUTSIDE RECORDS SUMMARY | 2024-06-29 00:27 | XMS_ITS | Encounter Summary ---
Author Organization [facility] Healthcare Address [address] [place] [address] Care Team Providers Care District Captain Name Role Phone Mick Flowers MD Primary Care Provider [phone] Reason for Visit * Auth/Cert (Routine) Specialty Diagnoses / Procedures Referred By Contac t Referred To Contact Diagnoses Neurogenic bladder OAB (overactive bladder) Urge urinary incontinence Neurogenic bladder [N31.9] OAB (overactive bladder) [N32.81] Urge urinary incontinence [N39.41] Procedures HI CYSTOURETHROSCOPY INJ CHEMODENERVATION BLADDER HI CYSTOURETHROSCOPY INJECTION BOTOX 300 UNITS CYSTOSCOPY Referral ID Status Reason Start Date Expiration Date Visits Re quested Visits Authorized [id number] 1 1 Encounter Details Date Type Department Care Team (Late st Contact Info) Description 12/13/2022 9:42 AM CDT - 12/13/2022 11:53 AM CDT Hospital Encounter [facility] Operating Room [address] [place] [address] Marquis Lopez MD [address] 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 FAQs (frequently asked questions) [...] physical therapy, we are available to assist: [facility] STAR: [facility] [phone] [place] [phone] [facility] [phone] How are some things that you can [...] given by your doctor or other health managed care nurse. * Attachments The following attachments cannot be sent through Care Everywhere. * Phenazopyridine (By mouth) (South Sudanese) documented in this encounter Medications at Time [...] Preoperative Evaluation Record Evaluation type/location: TPAP from [facility] Planned procedure site: [facility] OR Date: 11/17/22 NOTE: This note represents [...] cognitive impairment and carotid artery stent Comments: [facility] Multiple Sclerosis clinic [facility] 10/2022 Cardiovascular + Hypertension + Hyperlipidemia (on statin) Pertinent negatives: CAD (patient denies. noted in history items); [place] ; CABG ; valvular heart disease; atrial [...] capacity is 4-6 METs. Obstructive sleep apnea (ROSALIDNA) screening status is STOP-BANG incomplete at 3-4 suggesting MODERATE risk for ROSALINDA. Neck circumference pending. May need ROSALINDA order set initiated if Co2 >27. This assessment was performed via telephone. Therefore the physical exam has been deferred to the day of surgery team. The patient was provided with preoperative instructions for their medications. Patient instructions were provided by telephone and electronically sent via [employer]. Patient verbalized understanding of instructions. Blood bank [...] (LIPITOR) 40 mg tablet 11/13/2022 04/05/22 -- Bettie Batres MD BD Insulin [...] into the bladder Surgeon: Marquis Lopez MD Day Spa Manager: none is available Anesthesia: General Complications: None [...] MD - Primary Anesthesiologist: Adam Dsouza MD HOUSING OFFICER: Fran Wood CRNA Merchandise For Resale Purchasing Agent: Momo Beasley RN Scrub: Charlene Mckenna ST [...] Preoperative Assessment and Planning CPAP Clinic Location: [facility] The night before your surgery: * [...] Nursing Note - Gregory Kaplan RN - 11/14/2022 3:09 PM CDT [facility] for Preoperative Assessment and Planning Perioperative Nursing Note Telephone Preoperative Evaluation ([facility]) - TELEPHONE ONLY, NO PHYSICAL EXAM [...] chart Advance Directive not in Chart: (patient) Communication/Washer Off Needs Communication Needs: Glasses Does caregiver's language differ from patient's?: No Assistive Devices/DME: Eyeglasses Discharge Planning Type of Residence: Private residence Living Arrangements: Spouse/significant other Support Systems: Spouse/significant other Assistance Needed: Spouse to provide discharge transportation Patient expects to be discharged to:: 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 You should leave your valuables and any jewelry at home. No metal or piercings are allowed in the operating room. You should bring your insurance card, a photo ID (example: Information Systems Manager's License) and a method of payment for [...] Chart. If you are having surgery at [facility], please arrive on the day [...] Remove nail coverings, artificial nails and nail guatemalan. Place clean linens on your bed the [...] questions, please call the CPAP Staff at [phone], Sunday-Sunday 8am-4:30pm. All patients should read the below section: All visitors/patients are being asked to wear a clean face mask when entering the hospital. COVID 19 Updates & Visitor Policy: Please access [email or web address] for the most updated information. Information on [facility]: Please view [email or web address] (Patient & Visitor Information) for additional details regarding Advanced Directive forms, AWARE, directions, parking information, lodging, Internet access, dining and more. Information on [facility] or [facility] ([facility]): Please view [email or web address] (Patient and Visitor Information) for parking/directions and more. For MyChart information, to activate account or password recovery, please go to [email or web address] or call [phone] (toll-free: [phone]). Information for Suicide Prevention: National Suicide Prevention Lifeline (2-587- 735-QKEA (0723)). Surgery Times: For patients having surgery @ [facility], if your surgeon's office has not notified you of your surgery time by 2pm THE BUSINESS DAY BEFORE your surgery, please call the surgery center at [phone] and ask for your surgeon's office Dr. [...] 10:12 AM CDT 30 mL/hr 30 mL/hr documented in this encounter Discontinued Medications Medication [...] 1 12/13/2022 Lactated Ringer's (LR) infusion 1 3 lidocaine PF (XYLOCAINE) 10 mg/mL (1 %) preservative free injection 2-10 mg 1 12/13/2022 meperidine (DEMEROL) preserv ative free injection 12.5 mg 1 12/13/2022 naloxone (NARCAN) 0.4 mg/mL injection 0.04-0.4 mg 1 12/13/2022 onabotulinumtoxin A (BOTOX) injection 1 ondansetron (ZOFRAN) injection 4 mg 1 12/13 prochlorperazine (COMPAZINE) injection 5 mg 1 12/13/2022 scopolamine patch 72 hour 1 patch 1 023 sodium chloride 0.9% flush 0.5-20 mL 1 11/24 sodium chloride 0.9% irrigation 1 3 Discharge Count Last Ordered Date First Orde red Date DISCHARGE PATIENT 1 12/13/2022 documented in this encounter Care Teams District Captain Relationship Specialty Start Date End Date Mick Flowers MD PCP - General 05/14/17 documented as of this encounter
--- OUTSIDE RECORDS SUMMARY | 2024-06-29 00:27 | XMS_ITS | Encounter Summary ---
Author Organization [facility] Address [address] [place] [address] Phone Care Team Providers Care Grouter Helper Name Role Phone Mick Flowers MD Primary Care Provider [phone] Encounter Details Date Type Department Care Team (Latest Contact Info) Description 05/30/2023 Orders Only [facility] Scanning, Provider Social History Tobacco Use Types Packs/Day Years Used Date Smoking Tobacco: Never Smokeless Tobacco: Never Alcohol Use Standard Drinks/Week Comments Yes 0 (1 standard drink = 0.6 oz pur e alcohol) SOCIAL AUDIT-C Answer Date Recorded Q1: How often do you have a drink containing alc ohol? 2-3 times a week 05/11/2023 Q2: How many drinks containi ng alcohol do you have on a typical day when you are drinking? 3 or 4 05/11/2023 Q3: How often do you have si x or more drinks on one occasion? 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 on file Not on file documented as of this encounter Plan of Treatment Not on file documented as of this encounter Procedures Procedure Name Priority Date/Time Associated Diagnosis Comments SCAN - RADIOLOGY/IMAGING 05/30/2023 documented in this encounter Results * SCAN - RADIOLOGY/IMAGING (05/30/2023) Anatomical Region Laterality Modality Other us Provider Scanning Final Result documented in this encounter Visit Diagnoses Not on filedocumented in this encounter Care Teams Grouter Helper Relationship Specialty Start Date End Date Mick Flowers MD PCP - General 05/14/17 documented as of this encounter
--- OUTSIDE RECORDS SUMMARY | 2024-06-29 00:27 | XMS_ITS | Encounter Summary ---
Author Organization [facility] Address [address] [place] [address] Phone Care Team Providers Care Nurse Practitioner Hospitalist Name Role Phone Mick Flowers MD Primary Care Provider [phone] Encounter Details Date Type Department Care Team (Late st Contact Info) Description 02/05/2023 Orders Only [facility] [address] [facility] [address] [place] [address] Marquis Lopez MD [address] [facility] [address] [place] [address] Urge urinary incontinence (Primary Dx) [...] on file 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 Gender Identity Not on file Sexual Orientation Not on file 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 Final ??Specimen Source: ?? Urine, catheter ??Specimen Quality: ??Adequate ??Result: ?No Growth Urine, bladder 05/21/2023 9: 39 AM POLISHING WHEEL SETTER 05/21/2023 9:39 AM POLISHING WHEEL SETTER us Marquis Lopez MD LAB MICROBIOLOGY - GENERAL ORD ERABLES Final Result [facility] [address] [place] [address] documented in this encounter Visit Diagnoses Diagnosis Urge urinary incontinence- Primary Urge incontinence documented in this encounter Care Teams Nurse Practitioner Hospitalist Relationship Specialty Start Date End Date Mick Flowers MD PCP - General 05/14/17 documented as of this encounter
--- OUTSIDE RECORDS SUMMARY | 2024-06-29 00:27 | XMS_ITS | Encounter Summary ---
Author Organization [facility] Address [address] [place] [address] Phone Care Team Providers Care Public Health Social Worker Name Role Phone Mick Flowers MD Primary Care Provider [phone] Encounter Details Date Type Department Care Team (Late st Contact Info) Description 08/30/2023 Orders Only [facility] [address] [facility] [address] [place] [address] Marquis Lopez MD [address] [facility] [address] [place] [address] Urge urinary incontinence (Primary Dx) [...] on file 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 Final ??Specimen Source: ?? Urine, catheter ??Specimen Quality: ??Adequate ??Result: ?Mixed genital padmini isolated. These superficial ? bacteria are not indicative of a urinary tract ? infection. No further organism identification is ? warranted on this specimen. If clinically ? indicated, recollect clean-catch, mid-stream ? urine and transfer immediately to Urine Culture ? Transport Tube. Urine, bladder 11/12/2023 9: 12 AM CDT 11/12/2023 9:12 AM CDT Marquis Lopez MD LAB MICROBIOLOGY - GENERAL ORD ERABLES Final Result [facility] [address] [place] [address] documented in this encounter Visit Diagnoses Diagnosis Urge urinary incontinence- Primary Urge incontinence documented in this encounter Care Teams Public Health Social Worker Relationship Specialty Start Date End Date Mick Flowers MD PCP - General 05/14/17 documented as of this encounter
--- OUTSIDE RECORDS SUMMARY | 2024-06-29 00:27 | XMS_ITS | Encounter Summary ---
Author Organization [facility] Healthcare Address [address] [place] [address] Care Team Providers Care Experimental Box Tester Name Role Phone Mick Flowers MD Primary Care Provider [phone] Reason for Visit * Auth/Cert (Routine) Specialty Diagnoses / Procedures Referred By Contac t Referred To Contact Diagnoses Neurogenic bladder OAB (overactive bladder) Urge urinary incontinence Neurogenic bladder [N31.9] OAB (overactive bladder) [N32.81] Urge urinary incontinence [N39.41] Procedures LA CYSTOURETHROSCOPY INJ CHEMODENERVATION BLADDER LA CYSTOURETHROSCOPY INJECTION BOTOX 300 UNITS CYSTOSCOPY Referral ID Status Reason Start Date Expiration Date Visits Re quested Visits Authorized [id number] 1 1 Encounter Details Date Type Department Care Team (Late st Contact Info) Description 06/06/2023 1:44 PM STOCK CLIPPER Anesthesia Event [facility] Operating Room [address] [place] [address] Adam Dsouza MD [address] [facility] [place] [address] Sapphire Devries NP [address] [facility] [id number] [place] [address] Anesthesia Record Procedure Summary Procedure Name Responsible Anesthesiologist Anesthesia Start Time Anesthesia Stop Time INJECTION BOTOX 300 UNITS Adam Dsouza MD 06/06/23 1344 06/06/23 1428 Events Date Time Event Comment 06/06/2023 1147 In Preop 1211 1344 In Room 1344 An Start 1348 AN Equip Check 1348 An Start Data 1349 An Induction The patient was reevaluated immediately before moderate or deep sedation use and before anesthesia induction. 1349 An LMA 1349 Anesthesia Ready 1401 Proc Start 1401 Incision Start 1409 Proc Fin 1417 Out of Room 1418 Airway Removed 1418 an stop data 1428 Handoff to RN I completed my handoff [...] Patient disposition at the time of handoff: No value filed. 1428 An Stop Meds Name Total ceFAZolin (ANCEF) 1 gram/10 mL in steril e water (premix) 2,000 mg 2,000 mg lidocaine PF (XYLOCAINE) 10 mg/mL (1 %) preservative free injection 2-10 mg 0 mL Lidocaine IV 1% 50 mg midazolam 2 mg/2 mL 2 mg propofol 200 mg ondansetron PF 4 mg Lactated Ringer's (LR) infusion 0 mL * Agents Name O2 N2O Air Sevoflurane Inspired Sevoflurane * Blood No blood administrations on file. Lines, Drains, and Airways Type Details Placement Removal Peripheral IV Placement Date: 06/06/23; Placement Time: 1230; Catheter Size: 20 G; Orientation: Anterior, Distal, Left; Location: Forearm; Removal Date: 06/06/23; Removal Time: 1452 06/06/23 1230 by Usman Alves RN 06/06/23 1452 by Jennifer Garber, LILIA Supraglottic Airway Placement Date: 06/06/23; Placement Time: 1354 (created via procedure documentation); Mask Ventilation: 0; Size: 5; Insertion Attempts: 1; Removal Date: 06/06/23; Removal Time: 1418 06/06/23 1354 by Trino Guidry CRNA 06/06/23 1418 by Trino Guidry CRNA RETIRED Surgical Site 06/06/23; 1405; Penis; 05/27/24 (Retired LDA, Removed/Completed by [facility] with LDA Utility); 1213 (Retired LDA, Removed/Completed by [facility] with LDA Utility) 06/06/23 1405 by Brandy [...] on file Legal Sex Male 3:12 AM STOCK CLIPPER Gender Identity Not on file Sexual Orientation Not on file 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 on file Not on file documented as of this encounter OR Notes * Anesthesia Postprocedure Evaluation - Adam Dsouza MD - 06/06/2023 2:47 PM CST Patient: Doc Emery Procedure Summary Date: 06/06/23 Room / Location: [facility] OPERATING ROOM 02 / [facility] OPERATING ROOM Anesthesia Start: 1344 Anesthesia Stop: 1428 Procedures: INJECTION BOTOX 300 UNITS CYSTOSCOPY Diagnosis: Neurogenic bladder OAB (overactive bladder) Urge urinary incontinence (Neurogenic bladder [N31.9]) (OAB (overactive bladder) [N32.81]) (Urge urinary incontinence [N39.41]) Surgeons: Marquis Lopez MD Responsible Provider: Adam Dsouza MD Anesthesia Type: general ASA Status: 2 Anesthesia Type: general Last vitals BP 139/84 Pulse 71 Temp (!) 35.9 ??C (96.6 ??F) Resp 10 SpO2 97% Anesthesia Post Evaluation Patient location during evaluation: PACU Patient participation: complete - patient participated Level of consciousness: fully awake Pain management: adequate Airway patency: adequate Evidence of recall: no Cardiovascular status: acceptable Respiratory status: acceptable and room air Hydration status: acceptable Pt is: normothermic Nausea/Vomiting status: none No notable events documented. K CLIPPER * Anesthesia Procedure Notes - Trino Guidry CRNA - 06/06/2023 1:54 PM CSTAssociated Order(s): Airway Airway Patient location: OR Urgency: elective Indications for airway management: anesthesia Difficult airway: no Airway prep: Preoxygenated: yes Patient position: sniffing Mask difficulty assessment: 0 - not attempted Spontaneous ventilation during airway: absent Sedation level during airway: GA Final airway details: Final airway type: supraglottic airway Final supraglottic airway: IGel SGA size: 5 Number of attempts: 1 Ventilation between attempts: none K CLIPPER * Anesthesia Preprocedure Evaluation - Adam Dsouza MD - 05/30/2023 10:42 AM CST Images from the original note were not included. [facility] Preoperative Evaluation Record Evaluation type/location: TPAP from [facility] Planned procedure site: [facility] OR Date: 05/30/23 Anesthesia Evaluation NOTE: This note represents a preoperative evaluation initiated via telephone interview. NO PHYSICALEXAM was performed at the time of initial assessment. A physical exam may be added to this note anddocumented below. oDc Emery is a 57 y.o. male Procedure(s): INJECTION BOTOX 300 UNITS CYSTOSCOPY Pre-Op Diagnosis Codes: * Neurogenic bladder [N31.9] * OAB (overactive bladder) [N32.81] * Urge urinary incontinence [N39.41] HISTORY HPI 57 yo male being evaluated prior to injection botox and cystoscopy for neurogenic bladder. PMH includes multiple sclerosis and HTN. Past Medical History Information obtained from: patient and chart. Neurological + Psychiatric history - anxiety + Neuromuscular disease (age 24 diagnos. RLE weakness, visual changes, neurogenic bladder) - multiple sclerosis. Pertinent negatives: CVA/stroke; TIA; dementia/mild cognitive impairment and carotid artery stent Comments: [facility] 10/2022 Cardiovascular + Hypertension (states his BP is currently well controlled) Hypertension year diagnosed: 1984. + Hyperlipidemia (on statin) Pertinent negatives: CAD ; [place] ; CABG ; valvular heart disease; [...] (Hx of UTIs, COVID-19 positive test 05/28/2020) + Eye disorder (2/2 Multiple sclerosis) Pertinent negatives: diabetes mellitus; thyroid disease; cancer history; rheumatological disease; transplanted organ and pancreatitis Functional Capacity Functional capacity: 4-6 METs Comments: Lift weights 3x a week cardio 2x a week I.e. stairs for 1/2 hour Review of Systems + pedal edema (from [...] complete. Additional comments: Doc Emery is a 57 y.o. male who is being evaluated prior to undergoing a low cardiac risk surgery. Revised Cardiac Risk Index factors are (none) for a total RCRI of 0 out of6. Functional capacity is 4-6 METs. Obstructive sleep apnea (ROSALINDA) screening status is not complete 2/2 TPAP. This assessment was performed via telephone. Therefore the physical exam has been deferred to the day of surgery team. The patient was provided with preoperative instructions for their medications. Patient instructions were provided by telephone and electronically sent via [employer]. Patient verbalized understanding of instructions. Blood bank needs for day of procedure: No type and screen needed Pending labs/tests include: None TPAP process complete. Preoperative evaluation performed by Sapphire Devries NP on 05/30/23 at 10:57 AM . Patient Active Problem List Diagnosis Date [...] PUNCTURE Right 12/12/2022 SHOULDER ARTHROSCOPY Left unknown No Known Allergies Med List Status: Nurse Complete Set By: Radha Anderson RN at 05/11/2023 10:02 AM Taking? Last Dose Start Date End Date Provider ALPRAZolam (XANAX) 0.5 mg tablet 05/10/2023 08/26/22 -- ProviderBettie MD alprostadiL (Edex) 40 mcg injection Unknown 02/23/23 -- Micah Roberts NP 20 mcg by intracavity route as needed for erectile dysfunction Patient taking differently: 20 mcg by intracavity route as needed for erectile dysfunction amitriptyline (ELAVIL) 25 mg tablet 05/10/2023 05/16/22 -- Noam Leonard MD Take 2 tablets (50 mg total) by mouth nightly Patient taking differently: Take 2 tablets (50 mg total) by mouth nightly atorvastatin (LIPITOR) 40 mg tablet 05/10/2023 04/05/22 -- Bettie Batres MD BD Insulin Syringe Ultra-Fine 0.5 mL 30 gauge x 1/2 syringe -- 08/30/22 -- Bettie Batres MD famotidine (PEPCID) 20 mg tablet Past Week 10/06/21 -- Bettie Batres MD felodipine (PLENDIL) 5 mg 24 hr tablet 05/11/2023 07/19/07 -- Bettie Batres MD hydroCHLOROthiazide (HYDRODIURIL) 25 mg tablet 05/11/2023 -- -- Bettie Batres MD POTASSIUM CHLORIDE ER 20 mEq CR tablet 05/11/2023 04/23/18 -- Bettie Batres MD valsartan (DIOVAN) 320 mg tablet 05/10/2023 07/19/22 -- Bettie Batres MD No current facility-administered medications for this encounter. Current Outpatient Medications: ALPRAZolam (XANAX) 0.5 mg tablet amitriptyline (ELAVIL) 25 mg tablet atorvastatin (LIPITOR) 40 mg tablet BD Insulin Syringe Ultra-Fine 0.5 mL 30 gauge x 1/2 syringe famotidine (PEPCID) 20 mg tablet felodipine (PLENDIL) 5 mg 24 hr tablet hydroCHLOROthiazide (HYDRODIURIL) 25 mg tablet POTASSIUM CHLORIDE ER 20 mEq CR tablet valsartan (DIOVAN) 320 mg tablet alprostadiL (Edex) 40 mcg injection Social History Tobacco Use Smoking Status Never Smokeless Tobacco Never Alcohol Use: Alcohol Misuse (05/11/2023) AUDIT-C Frequency of Alcohol Consumption: 2-3 times a week Average Number of Drinks: 3 or 4 Frequency of Binge Drinking: Never Substance and Sexual Activity Drug Use Yes Frequency: 4.0 times per week Types: Marijuana Family History Problem Relation Age of Onset Melanoma Mother Family history of malignant melanoma - (Added by TW Conv) Cancer Mother Alcohol abuse Father Cancer Father Hypertension Father Hypertension Other Family history of Hypertension; Anesthesia problems Neg Hx Malig Hypertension Neg Hx Pseudochol deficiency Neg Hx Malig Hyperthermia Neg Hx There were no vitals filed for this visit. Romain index score: 100 DOS Physical Exam Medical history, medications, and allergies reviewed. Attestation: This PAT evaluation 06/06/2023. Airway Exam: Mallampati: II Cervical ROM: FROM TM distance: 3 Cardiovascular Exam: Rate: regular Rhythm: regular Negative for Murmur Pulmonary Exam: LCTA, bilat Dental Exam: Appears intact Current state: Patient's current state is cooperative. Anesthesia Plan ASA 2 My patient is approved for the Anesthesia Controlled Medication protocol when under care of a NEON TUBE BENDER Planned anesthesia: General Induction: Induction: intravenous. Postoperative Plan: Postoperative administration opioids intended. Patient's planned disposition post procedure is Outpatient. Informed Consent: Discussed plan with NEON TUBE BENDER. Anesthesia plan and risks discussed with patient. Consent and Attending signature: I and/or my designee have discussed the anesthesia plan, benefits, possible alternatives, parental presence at time of induction (if indicated), and clinically relevant risks that may include dental injury, unintentional awareness, and/or other complications. The patient and/or parent/legal guardian understand, and agree to proceed. All questions answered. K CLIPPER K CLIPPER documented in this encounter Plan of Treatment Not on file documented as of this encounter Procedures Procedure Name Priority Date/Time Associated Diagnosis Comments LA AN PROCEDURE PLACEHOLDER Routine 06/06/2023 1:54 PM STOCK CLIPPER LA AN ELECTIVE SUPRAGLOTTIC AIRWAY Routine 06/06/2023 1:54 PM STOCK CLIPPER documented in this encounter Results * LA AN ELECTIVE SUPRAGLOTTIC AIRWAY, LA AN PROCEDURE PLACEHOLDER (06/06/2023 1:54 PM STOCK CLIPPER) Narrative Trino Guidry CRNA - 06/06/2023 1:54 PM STOCK CLIPPER Trino Guidry CRNA ? 06/06/2023 ??1:54 PM Airway Patient location: OR Urgency: elective Indications for airway management: anesthesia Difficult airway: no Airway prep: Preoxygenated: yes Patient position: sniffing Mask difficulty assessment: 0 - not attempted Spontaneous ventilation during airway: absent Sedation level during airway: GA Final airway details: Final airway type: supraglottic airway Final supraglottic airway: IGel SGA size: 5 Number of attempts: 1 Ventilation between attempts: none Adam Dsouza MD ANESTHESIA ORDERABLES Final Result documented in this encounter Visit Diagnoses Not on filedocumented in this encounter Administered Medications Inactive Administered Medications - up to 3 most recent administrations Medication Order MAR Action Action Date Dose Rate Site ceFAZolin (ANCEF) 1 gram/10 mL in sterile water (premix) 2,000 mg 2,000 mg, intravenous, at 400 mL/hr, Administer over 3 Minutes, Once, On Sun06/06/23 at 1245, For 1 dose, Pre-Op, Administer within 60 minutes of incision., Indications: Prophylaxis, SurgicalIndications:Proph ylaxis, Surgical Given 06/06/2023 1:44 PM STOCK CLIPPER 2,000 mg Lactated Ringer's (LR) infusion 30 mL/hr, intravenous, Continuous, Starting on Sun06/06/23 at 1245, For 4 hours, Pre-Op, Use a 500 ml bag for End Stage Renal Disease Patients. Discontinue if fluid still running once patient arrives to floor. Rate/Dose Verify 06/06/2023 1:44 PM STOCK CLIPPER 30 mL/hr New Bag 06/06/2023 12:24 PM STOCK CLIPPER 30 mL/hr 30 mL/hr lidocaine PF (XYLOCAINE) 10 mg/mL (1 %) preservative free injection intravenous, As needed, Starting on Sun06/06/23 at 1349, Anesthesia Intra-op Given 06/06/2023 1:49 PM STOCK CLIPPER 50 mg midazolam (VERSED) 1 mg/mL injection intravenous, As needed, Starting on Sun06/06/23 at 1344, Anesthesia Intra-op Given 06/06/2023 1:44 PM STOCK CLIPPER 2 mg ondansetron (ZOFRAN) injection intravenous, Administer over 2 Minutes, As needed, Starting on Sun06/06/23 at 1344, Anesthesia Intra-op Given 06/06/2023 1:44 PM STOCK CLIPPER 4 mg propofoL (DIPRIVAN) 10 mg/mL IV intravenous, As needed, Starting on Sun06/06/23 at 1349, Anesthesia Intra-op Given 06/06/2023 1:49 PM STOCK CLIPPER 200 mg documented in this encounter Care Teams Experimental Box Tester Relationship Specialty Start Date End Date Mick Flowers MD PCP - General 05/14/17 documented as of this encounter
--- OUTSIDE RECORDS SUMMARY | 2024-06-29 00:27 | XMS_ITS | Encounter Summary ---
Author Organization [facility] Healthcare Address [address] [place] [address] Care Team Providers Care Estimator And Drafter Supervisor Name Role Phone Mick Flowers MD Primary Care Provider [phone] Reason for Visit * Auth/Cert (Routine) Specialty Diagnoses / Procedures Referred By Contac t Referred To Contact Diagnoses Neurogenic bladder OAB (overactive bladder) Urge urinary incontinence Neurogenic bladder [N31.9] OAB (overactive bladder) [N32.81] Urge urinary incontinence [N39.41] Procedures PA CYSTOURETHROSCOPY INJ CHEMODENERVATION BLADDER PA CYSTOURETHROSCOPY INJECTION BOTOX 300 UNITS CYSTOSCOPY Referral ID Status Reason Start Date Expiration Date Visits Re quested Visits Authorized [id number] 1 1 Encounter Details Date Type Department Care Team (Late st Contact Info) Description 12/13/2022 10:24 AM CDT Anesthesia Event [facility] Operating Room [address] [place] [address] Adam Dsouza MD [address] [facility] MSC [id number] [place] [address] Kathy Harris NP [id number] [facility] MSC [id number] [place] [address] Anesthesia Record Procedure Summary Procedure Name Responsible Anesthesiologist Anesthesia Start Time Anesthesia Stop Time INJECTION BOTOX 300 UNITS (Bladder) Adam Dsouza MD 12/13/22 1024 12/13/22 1109 Events Date Time Event Comment 12/13/2022 0951 In Preop 1022 1024 An Start 1028 In Room 1028 An Start Data 1032 An Induction The patient was reevaluated immediately before moderate or deep sedation use and before anesthesia induction. 1033 An LMA 1034 Anesthesia Ready 1048 Proc Start 1101 Proc Fin 1102 Airway Removed 1103 an stop data 1104 Out of Room 1109 An Stop 1110 Handoff to RN I completed my handoff [...] the time of handoff: No value filed. Meds Name Total midazolam 2 mg/2 mL 2 mg fentaNYL PF 100 mcg lidocaine 2 % 50 mg propofol 200 mg ondansetron PF 4 mg ceFAZolin (ANCEF) 1 gram/10 mL in steril e water (premix) 2,000 mg 2,000 mg Lactated Ringer's (LR) infusion 0 mL * Agents Name O2 N2O Air Sevoflurane Inspired Sevoflurane * Blood No blood administrations on file. Lines, Drains, and Airways Type Details Placement Removal Peripheral IV Placement Date: 12/13/22; Placement Time: 1007; Catheter Size: 20 G; Orientation: Anterior, Left; Location: Forearm; Site Prep: Chlorhexidine; Inserted by: Lucio Lewis RN; Insertion Attempts: 1; Patient Tolerance: Tolerated well; Removal Date: 12/13/22; Removal Time: 1140 12/13/22 1007 by Mary Kay Damon RN 12/13/22 1140 by Ana Pettit RN Supraglottic Airway Placement Date: 12/13/22; Placement Time: 1036 (created via procedure documentation); Mask Ventilation: 0; Size: 5; Insertion Attempts: 1; Removal Date: 12/13/22; Removal Time: 1102 12/13/22 1036 by Fran Wood CRNA 12/13/22 1102 by Fran Wood CRNA documented in this encounter Social History [...] when you are drinking? 3 or 4 3 Q3: How often do you have si x or more drinks on one occasion? 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 on file Not on file documented as of this encounter OR Notes * Anesthesia Postprocedure Evaluation - Adam Dsouza MD - 12/13/2022 12:13 PM CDT Patient: Doc Emery Procedure Summary Date: 12/13/22 Room / Location: [facility]PERATING [facility]OM 02 / [facility] Anesthesia Start: 1024 Anesthesia Stop: 1109 Procedures: INJECTION BOTOX 300 UNITS (Bladder) CYSTOSCOPY Diagnosis: Neurogenic bladder OAB (overactive bladder) Urge urinary incontinence (Neurogenic bladder [N31.9]) (OAB (overactive bladder) [N32.81]) (Urge urinary incontinence [N39.41]) Surgeons: Marquis Lopez MD Responsible Provider: Adam Dsouza MD Anesthesia Type: general ASA Status: 2 Anesthesia Type: No value filed. 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 * Anesthesia Procedure Notes - Fran Wood CRNA - 12/13/2022 10:36 AM CDTAssociated Order(s): Airway Airway Patient location: OR Urgency: elective Indications for airway management: anesthesia Difficult airway: no Staff: Placed by: COMPREHENSIVE ADVISOR: Fran Wood CRNA Emergent airway documentation: Risks and benefits discussed: yes Consent obtained: yes Consent given by: patient Airway prep: Preoxygenated: yes Patient position: sniffing Mask difficulty assessment: 0 - not attempted Sedation level during airway: GA Final airway details: Final airway type: supraglottic airway Final supraglottic airway: IGel SGA size: 5 Number of attempts: 1 * Anesthesia Preprocedure Evaluation - Adam Dsouza MD - 11/17/2022 10:36 AM CDT Images from the original note were not included. ,[facility] Preoperative Evaluation Record Evaluation type/location: TPAP from [facility] Planned procedure site: [facility] OR Date: 11/17/22 NOTE: This note represents [...] cognitive impairment and carotid artery stent Comments: [facility] Multiple Sclerosis clinic [facility] 10/2022 Cardiovascular + Hypertension + Hyperlipidemia (on statin) Pertinent negatives: CAD (patient denies. noted in history items); OR ; CABG ; valvular heart disease; atrial [...] provided by telephone and electronically sent via Banno. Patient verbalized understanding of instructions. Blood bank needs for day of procedure: No type and screen needed Pending labs/tests include: None TPAP Complete Preoperative evaluation performed by Flako Damon NP on 11/17/22 at 10:42 AM . Patient Active Problem List Diagnosis Neurogenic bladder disorder Abnormality of gait and mobility High risk medication use Hypercholesterolemia Primary insomnia Multiple sclerosis (HCC) Penile discharge Urethral stricture Urinary tract infection OAB (overactive bladder) Bowel incontinence Cardiovascular risk factor Abnormal MRI Vitamin D deficiency Anxiety Erectile dysfunction Neurogenic bladder Urge urinary incontinence Medication management Past Medical History: Diagnosis Date Coronary artery disease Hyperlipidemia Hypertension Hypertension Multiple sclerosis (HCC) Multiple Sclerosis Past Surgical History: Procedure Laterality Date COLONOSCOPY 2020 CYSTOSCOPY 2021 with botox injection; receives every 6 months FACET BLOCK LUMBAR SACRAL 1 LEVEL LEFT Left 09/12/2019 FACET BLOCK LUMBAR SACRAL 1 LEVEL LEFT Left 05/04/2020 FACET BLOCK LUMBAR SACRAL 1 LEVEL LEFT Bilateral 11/10/2021 FACET BLOCK LUMBAR SACRAL 1 LEVEL LEFT Bilateral 07/04/2022 SHOULDER ARTHROSCOPY Left unknown No Known Allergies [...] 20 mEq CR tablet 11/14/2022 04/23/18 -- ProviderBettie MD valsartan (DIOVAN) 320 mg tablet 11/13/2022 07/19/22 -- ProviderBettie MD No current facility-administered medications for this encounter. Current Outpatient Medications: ALPRAZolam (XANAX) 0.5 mg tablet amitriptyline (ELAVIL) 25 mg tablet atorvastatin (LIPITOR) 40 mg tablet EDEX 20 mcg injection famotidine (PEPCID) 20 mg tablet felodipine (PLENDIL) 5 mg 24 hr tablet hydroCHLOROthiazide (HYDRODIURIL) 25 mg tablet POTASSIUM CHLORIDE ER 20 mEq CR tablet valsartan (DIOVAN) 320 mg tablet BD Insulin Syringe Ultra-Fine 0.5 mL 30 gauge x 1/2 syringe Social History Tobacco Use Smoking Status Never Smokeless Tobacco Never Vaping Use Vaping Use: Never used Alcohol Use: Heavy Drinker (11/14/2022) AUDIT-C Frequency of Alcohol Consumption: 2-3 times [...] deficiency Neg Hx Malig Hyperthermia Neg Hx Relevant diagnostics: ECG(s): [...] last 30 days. Romain index score: 95 DOS Physical Exam Medical history, medications, and allergies reviewed. Attestation: This PAT evaluation 12/13/2022. Airway Exam: Mallampati: II Cervical ROM: FROM TM distance: 3 Cardiovascular Exam: Rate: regular Rhythm: regular Pulmonary Exam: LCTA, bilat EENT Exam: trachea midline Dental Exam: Appears intact Current state: Patient's current state is cooperative. Anesthesia Plan ASA 2 My patient is approved for the Anesthesia Controlled Medication protocol when under care of a COMPREHENSIVE ADVISOR Planned anesthesia: General Team communication plan: LMA Induction: Induction: intravenous. Postoperative Plan: Postoperative administration opioids intended. Patient's planned disposition post procedure is Outpatient. Informed Consent: Discussed plan with COMPREHENSIVE ADVISOR. Anesthesia plan and risks discussed with patient. [...] Procedure Name Priority Date/Time Associated Diagnosis Comments PA AN PROCEDURE PLACEHOLDER Routine 12/13/2022 10:36 AM CDT PA AN ELECTIVE SUPRAGLOTTIC AIRWAY Routine 12/13/2022 10:36 AM CDT documented in this encounter Results * PA AN ELECTIVE SUPRAGLOTTIC AIRWAY, PA AN PROCEDURE PLACEHOLDER (12/13/2022 10:36 AM CDT) Narrative Fran Wood CRNA - 12/13/2022 10:36 AM CDT Fran Wood CRNA ? 12/13/2022 10:36 AM Airway Patient location: OR Urgency: elective Indications for airway management: anesthesia Difficult airway: no Staff: Placed by: COMPREHENSIVE ADVISOR: Fran Wood CRNA Emergent airway documentation: Risks and benefits discussed: yes Consent obtained: yes Consent given by: patient Airway prep: Preoxygenated: yes Patient position: sniffing Mask difficulty assessment: 0 - not attempted Sedation level during airway: GA Final airway details: Final airway type: supraglottic airway Final supraglottic airway: IGel SGA size: 5 Number of attempts: 1 Adam Dsouza MD ANESTHESIA ORDERABLES Final Result [...] within 60 minutes of incision., Indications: Prophylaxis, SurgicalIndications:Prophy laxis, Surgical Given 12/13/2022 10:34 AM CDT 2,000 mg fentaNYL (SUBLIMAZE) preservative free injection intravenous, As needed, Starting on Sun12/13/22 at 1024, Anesthesia Intra-op Given 12/13/2022 10:24 AM CDT 100 mcg Lactated Ringer's (LR) infusion 30 mL/hr, intravenous, Continuous, Starting on Sun12/13/22 at 1030, For 4 hours, Pre-Op, Use a 500 ml bag for End Stage Renal Disease Patients. Discontinue if fluid still running once patient arrives to floor. Rate/Dose Verify 12/13/2022 10:24 AM CDT 30 mL/hr New Bag 12/13/2022 10:12 AM CDT 30 mL/hr 30 mL/hr lidocaine (XYLOCAINE) 20 mg/mL (2 %) injection intravenous, As needed, Starting on Sun12/13/22 at 1032, Anesthesia Intra-op, Indications: Administration of Local AnesthesiaIndications:Administration of Local Anesthesia Given 12/13/2022 10:32 AM CDT 50 mg midazolam (VERSED) 1 mg/mL injection intravenous, As needed, Starting on Sun12/13/22 at 1024, Anesthesia Intra-op Given 12/13/2022 10:24 AM CDT 2 mg ondansetron (ZOFRAN) injection intravenous, Administer over 2 Minutes, As needed, Starting on Sun12/13/22 at 1038, Anesthesia Intra-op Given 12/13/2022 10:38 AM CDT 4 mg propofoL (DIPRIVAN) 10 mg/mL IV intravenous, As needed, Starting on Sun12/13/22 at 1032, Anesthesia Intra-op Given 12/13/2022 10:32 AM CDT 200 mg documented in this encounter Care Teams Estimator And Drafter Supervisor Relationship Specialty Start Date End Date Mick Flowers MD PCP - General 05/14/17 documented as of this encounter
--- OUTSIDE RECORDS SUMMARY | 2024-06-29 00:27 | XMS_ITS | Encounter Summary ---
Author Organization [facility] Healthcare Address [address] [place] [address] Care Team Providers Care Palliative Care Coordinator Name Role Phone Mick Flowers MD Primary Care Provider [phone] Reason for Visit * Auth/Cert (Routine) Specialty Diagnoses / Procedures Referred By Contac t Referred To Contact Diagnoses Neurogenic bladder OAB (overactive bladder) Urge urinary incontinence Neurogenic bladder [N31.9] OAB (overactive bladder) [N32.81] Urge urinary incontinence [N39.41] Procedures SC CYSTOURETHROSCOPY INJ CHEMODENERVATION BLADDER SC CYSTOURETHROSCOPY INJECTION BOTOX 300 UNITS CYSTOSCOPY Referral ID Status Reason Start Date Expiration Date Visits Re quested Visits Authorized [id number] 1 1 Encounter Details Date Type Department Care Team (Late st Contact Info) Description 06/06/2023 8:54 AM INSPECTOR OF DREDGING - 06/06/2023 3:01 PM [facility] Hospital Encounter [facility] Operating Room [id number] [place] [address] Marquis Lopez MD [address] [facility] [address] [place] [address] Neurogenic bladder (Primary Dx); Urge urinary incontinence [...] on file Legal Sex Male 3:12 AM INSPECTOR OF DREDGING Gender Identity Not on file Sexual Orientation Not on file 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 on file Not on file documented as of this encounter Last Filed Vital Signs Vital Sign Reading Time Taken Comments Blood Pressure 139/84 06/06/2023 2:40 PM INSPECTOR OF DREDGING Pulse 71 06/06/2023 2:40 PM INSPECTOR OF DREDGING Temperature 35.9 ??C (96.6 ??F) 06/06/2023 2:40 PM CS T Respiratory Rate 10 06/06/2023 2:40 PM INSPECTOR OF DREDGING Oxygen Saturation 97% 06/06/2023 2:40 PM INSPECTOR OF DREDGING Inhaled Oxygen Concentration - - Weight 79.8 kg (176 lb) 05/11/2023 10:00 AM INSPECTOR OF DREDGING Height 177.8 cm (5' 10 ) 05/11/2023 10:00 AM INSPECTOR OF DREDGING Body Mass Index 25.25 05/11/2023 10:00 AM INSPECTOR OF DREDGING documented in this encounter Discharge Instructions * Discharge Instructions* Jennifer Garber RN - 06/06/2023 1:16 PM INSPECTOR OF DREDGING Discharge Instructions: Surgery performed: cystoscopy and bladder botox injection Wound: None New medications: None Diet: Resume usual diet. Keep well hydrated. Activity: Activity as tolerated. Contact your doctor if: - Fever over 101.3F - Nausea/vomiting - unable to urinate You have received anesthesia, therefore, for the next 24 hours and/or while taking narcotic pain medication; -Do NOT drive a vehicle -Do NOT drink alcohol -Do NOT make important personal or business decisions or sign legal documents. Examples of narcotic pain medication include Percocet, Oxycontin, [place], Hydrocodone, and Oxycodone. FAQs (frequently asked questions) [...] physical therapy, we are available to assist: [facility] STAR: [facility] [phone] [place] [phone] [facility] [phone] How are some things that you can [...] given by your doctor or other health healthcare sales representative. ECTOR OF DREDGING ECTOR OF DREDGING documented in this encounter Medications at Time [...] H&P Notes * Marquis Lopez MD - 06/06/2023 10:06 AM CST I have reviewed the H&P, [...] Normal affect and mood, oriented x 3. ECTOR OF DREDGING Source Note - Sapphire Devries NP - 05/30/2023 10:42 AM INSPECTOR OF DREDGING Images from the original note were not included. [facility] Planning Preoperative Evaluation Record Evaluation type/location: TPAP from [facility] Planned procedure site: [facility] OR Date: 05/30/23 Anesthesia Evaluation NOTE: This note represents a preoperative evaluation initiated via telephone interview. NO PHYSICALEXAM was performed at the time of initial assessment. A physical exam may be added to this note anddocumented below. Doc Emery is a 57 y.o. [...] cognitive impairment and carotid artery stent Comments: [facility] Sclerosis clinic [place] 10/2022 Cardiovascular + Hypertension (states his BP is currently well controlled) Hypertension year diagnosed: 1984. + Hyperlipidemia (on statin) Pertinent negatives: CAD ; [place] ; CABG ; valvular heart disease; atrial [...] apnea (ROSALINDA) screening status is not complete 07/27 TPAP. This assessment was performed via telephone. Therefore the physical exam has been deferred to the day of surgery team. The patient was provided with preoperative instructions for their medications. Patient instructions were provided by telephone and electronically sent via [employer]. Patient verbalized understanding of instructions. Blood bank [...] (XANAX) 0.5 mg tablet 05/10/2023 08/26/22 -- Bettie Batres MD alprostadiL (Edex) 40 mcg injection Unknown [...] (LIPITOR) 40 mg tablet 05/10/2023 04/05/22 -- ProviderBettie MD BD Insulin Syringe [...] for this visit. Romain index score: 100 ECTOR OF DREDGING documented in this encounter Miscellaneous Notes * Perioperative Nursing Note - Jennifer Garber RN - 06/06/2023 2:52 PM CST Pt cleared for discharge by Dr. Dsouza. Went over discharge instructions with patient and . ECTOR OF DREDGING * Op Note - Marquis Lopez MD - 06/06/2023 2:01 PM CST Date of Surgery: 06/06/2023 Preoperative diagnosis: neurogenic bladder with detrusor overactivity and urgency urinary incontinence Post-operative diagnosis: neurogenic bladder with detrusor overactivity and urgency urinary incontinence Procedure: Cystoscopy, injection of 300 units of onabotulinumtoxinA (Botox) into the bladder Surgeon: Marquis Lopez MD Well Site Drilling Engineer: Papo Munguia MD Anesthesia: General Complications: None Estimated blood [...] Marquis Lopez, was present throughout the surgery. ECTOR OF DREDGING * Brief Op Note - Marquis Lopez MD - 06/06/2023 2:01 PM CST Operative Progress Note Surgical Team: Surgeon(s) and Role: * Marquis Lopez MD - Primary * MunguiaPapo MD - Resident - Assisting Anesthesiologist: Adam Dsouza MD GROUNDS MANAGER: Trino Guidry CRNA Brass Plater: Brandy Barnett RN Scrub: Charlene Mckenna ST DATE OF SURGERY : 06/06/2023 Preoperative Diagnosis: Pre-op Diagnosis * Neurogenic bladder [...] room was stable Marquis Lopez MD Date: 06/08/2023 Time: 11:49 AM TEACHING ATTESTATION : I was present and directly participated in the entire procedure (including opening and closing). ECTOR OF DREDGING * Pre-Procedure Instructions - Sapphire Devries NP - 05/30/2023 10:31 AM CST [facility] Planning CPAP Clinic Location: [facility] The night before your surgery: * [...] valuables at home or with your family. * If you have an implantable device with a remote, bring the remote with you on the day of surgery. Outpatient Surgery: * You must have a [...] (ELAVIL) 25 mg tablet Take per usual schedule. atorvastatin (LIPITOR) 40 mg tablet Take per usual schedule. BD Insulin Syringe Ultra-Fine 0.5 mL 30 gauge x 1/2 syringe Don't take on day of surgery famotidine (PEPCID) 20 mg tablet Take morning of surgery felodipine (PLENDIL) 5 mg 24 hr tablet Take morning of surgery hydroCHLOROthiazide (HYDRODIURIL) 25 mg tablet Don't take on day of surgery POTASSIUM CHLORIDE ER 20 mEq CR tablet Don't take on day of surgery valsartan (DIOVAN) 320 mg tablet Do NOT take the night before or morning of surgery alprostadiL (Edex) 40 mcg injection Don't take on day of surgery General [...] with COVID-19. You test positive for COVID-19. ECTOR OF DREDGING * Perioperative Nursing Note - Radha Anderson RN - 05/11/2023 10:07 AM CST [facility] for Preoperative Assessment and Planning Perioperative Nursing Note Telephone Preoperative Evaluation ([facility]) - TELEPHONE ONLY, NO PHYSICAL EXAM Date: 05/11/23 This assessment was completed with the patient. Vitals: 05/11/23 1000 Weight: 79.8 kg (176 lb) Height: 177.8 cm (5' 10 ) CHEST CIRCUMFERENCE: NA Social History Tobacco Use Smoking Status Never [...] Outpatient Medications Marked as Taking for the 06/06/23 encounter (Hospital Encounter) Medication Sig Dispense Refill [...] No Wound (LDAs) Type of Wound (LDA): (patient denies) SCREENINGS Romain index score: 100 NUTRITION PATIENT CARE PLANNING Advance Directives (For Healthcare) Have you reviewed your Advance Directive and is it valid for this stay?: No Advance Directive: Patient has advance directive, copy not in chart Advance Directive not in Chart: Copy requested from other (Comment) (patient) Communication/Linderman Operator Needs Communication Barriers: Visual Communication Needs: Glasses Assistive Devices/DME: Eyeglasses Discharge Planning Type of Residence: Private residence Living Arrangements: Spouse/significant other Support Systems: Spouse/significant other Patient expects to be discharged to:: Private residence DEHAIRING MACHINE TENDER NO ADDITIONAL COMMENTS/ FOLLOW UP ECTOR OF DREDGING * Pre-Procedure Instructions - Radha Anderson RN - 05/11/2023 10:06 AM CST [facility]ESS[facility] PLANNING [...] remove nail coverings, artificial nails and nail paraguayan prior to the day of surgery. You should leave your valuables and any jewelry at home. No metal or piercings are allowed in the operating room. You should bring your insurance card, a photo ID (example: Broadcast Designer's License) and a method of payment for [...] Chart. If you are having surgery at [facility], please arrive on the day of [...] Remove nail coverings, artificial nails and nail paraguayan. Place clean linens on your bed the [...] questions, please call the CPAP Staff at [phone], Sunday-Sunday 8am-4:30pm. All patients should read the below section: COVID 19 Updates & Visitor Policy: Please access [email or web address] for the most updated information. Information on [facility]: Please view [email or web address] (Patient & Visitor Information) for additional details regarding Advanced Directive forms, AWARE, directions, parking information, lodging, Internet access, dining and more. Information on [facility] or [facility] ([facility]): Please view [email or web address] (Patient and Visitor Information) for parking/directions and more. For MyChart information, to activate account or password recovery, please go to [email or web address] or call [phone] (toll-free: [phone]), Sun- Sunday 8am-5pm. Information for Suicide Prevention: National Suicide Prevention Lifeline (5-160- 234-ITXS (7812)). Surgery Times: For patients having surgery @ [facility], if your surgeon's office has not notified you of your surgery time by 2pm THE BUSINESS DAY BEFORE your surgery, please call the surgery center at [phone] and ask for your surgeon's office Dr Lopez. ECTOR OF DREDGING documented in this encounter Plan of Treatment Not on file documented as of this encounter Procedures Procedure Name Priority Date/Time Associated Diagnosis Comments CYSTOSCOPY 06/06/2023 1:44 PM INSPECTOR OF DREDGING Neurogenic bladder OAB (overactive bladder) Urge urinary incontinence Special Needs 300 UNITS OF BOTOX TO BE MIXED WITH 30 CC NORMAL SALINE IN OR; CHERELLE NEEDLE FOR INJECTION INJECTION BOTOX 06/06/2023 1:44 PM INSPECTOR OF DREDGING Neurogenic bladder OAB (overactive bladder) Urge urinary [...] to floor. Rate/Dose Verify 06/06/2023 1:44 PM INSPECTOR OF DREDGING 30 mL/hr New Bag 06/06/2023 12:24 PM INSPECTOR OF DREDGING 30 mL/hr 30 mL/hr documented in this encounter Active and Recently Administered Medications Times are shown in INSPECTOR OF DREDGING. Scheduled Medication Order 06/04/2023 06/05/2023 06/06/2023 ceFAZolin (ANCEF) 1 gram/10 mL in sterile water (premix) 2,000 mg (COMPLETED) 2,000 mg, intravenous, at 400 mL/hr, Administer over 3 Minutes, Once, On Sun06/06/23 at 1245, For 1 dose, Pre-Op, Administer within 60 minutes of incision., Indications: Prophylaxis, Surgical 1344 (Given - Provid er: Trino Guidry CRNA) Continuous Medication Order 06/04/2023 06/05/2023 06/06/2023 Lactated Ringer's (LR) infusion 30 mL/hr, intravenous, Continuous, Starting on Sun06/06/23 at 1245, For 4 hours, Pre-Op, Use a 500 ml bag for End Stage Renal Disease Patients. Discontinue if fluid still running once patient arrives to floor. 1224 (New Bag - Prov ider: Usman Alves RN)1344 (Rate/Dose Verify - Provider: Trino Guidry CRNA)1906 (Due: Stopped) Lactated Ringer's (LR) infusion 125 mL/hr, intravenous, Continuous, Starting on Sun06/06/23 at 1445, For 4 hours, Phase I, Discontinue upon discharge from PACU to the floor. 1445 (Due) PRN Medication Order 06/04/2023 06/05/2023 06/06/2023 acetaminophen (TYLENOL) tablet 500 mg 500 mg, oral, Every 6 hours PRN, headaches, other, Breakthrough Pain and Supplement to other pain meds, Starting on Sun06/06/23 at 1413, For 2 doses, Phase I, When able to tolerate PO after consulting with Anesthesiologist. Do not administer if patient has already received Acetaminophen-containing medications in PACU., Indications: Pain diphenhydrAMINE (BENADRYL) 50 mg/mL injection 12.5 mg 12.5 mg, intravenous, Administer over 1 Minutes, Every 5 min PRN, itching, other, For Nausea, administer 25 mg IV., Starting on Sun06/06/23 at 1413, For 4 doses, Phase I, Max cumulative dose 50 mg., Indications: Itching fentaNYL (SUBLIMAZE) preservative free injection 25 mcg 25 mcg, intravenous, Every 5 min PRN, 2nd line for pain, Use Fentanyl as 1st line medication for extremely severe pain for outpatients, and follow with oral pain medication., Starting on Sun06/06/23 at 1413, For 4 doses, Phase I, Use as [...] min PRN, high blood pressure, Starting on Sun06/06/23 at 1413, Phase I, Max cumulative dose 20 mg. [...] and follow with Oral meds., Starting on Sun06/06/23 at 1413, For 2 doses, Phase I, May administer [...] patients with extremely severe pain., Starting on Sun06/06/23 at 1413, Phase I, Use as first line pain medication for inpatients. May use as first line medication for outpatients with extremely severe pain (7 out of [...] min PRN, high blood pressure, Starting on Sun06/06/23 at 1413, For 4 doses, Phase I, Max cumulative dose 20 mg. Dose if systolic blood pressure greater than 180 AND HR greater than 70. meperidine (DEMEROL) preservative free injection 12.5 mg 12.5 mg, intravenous, Administer over 5 Minutes, Every 10 min PRN, shivering, Starting on Sun06/06/23 at 1413, For 2 doses, Phase I, Max cumulative dose 25 mg., Indications: Shivering naloxone (NARCAN) 0.4 mg/mL injection 0.04-0.4 mg 0.04-0.4 mg, intravenous, Once as needed, other, excessive sedation/respiratory depression, Starting on Sun06/06/23 at 1413, For 1 dose, Phase I, Dilute 0.4 [...] (BOTOX) injection (CANCELED) As needed, Starting on Sun06/06/23 at 1406, Intra-Op 1406 (Given - Provid er: Marquis Lopez MD - Comment: Mixed separately with 10 mL of injectable saline) ondansetron (ZOFRAN) injection 4 mg 4 mg, intravenous, Administer over 2 Minutes, Once as needed, nausea, vomiting, Starting on Sun06/06/23 at 1413, For 1 dose, Phase I, Proceed to prochlorperazine if ondansetron has been given within the last 6 hours. prochlorperazine (COMPAZINE) injection 5 mg 5 mg, intravenous, Administer over 2 Minutes, Once as needed, nausea, vomiting, Starting on Sun06/06/23 at 1413, For 2 doses, Phase I, If nausea/vomiting not relieved by ondansetron within 30 minutes or if ondansetron has been given within the last 6 hours. May repeat in 15 minutes of nausea not relieved. sodium chloride 0.9% irrigation (CANCELED) As needed, Starting on Sun06/06/23 at 1406, Intra-Op 1406 (Given - Provid er: Marquis Lopez MD) sodium chloride bacteriostatic 0.9 % injection (CANCELED) As needed, Starting on Sun06/06/23 at 1406, Intra-Op 1406 (Given - Provid er: Marquis Lopez MD - Comment: Mixed separately with 300 units of botox) documented in this encounter Orders Medications Ordered That Julio Cesar ht Not Have Been Administered Count Last Ordered Date First Ordered Date acetaminophen (TYLENOL) tablet 500 mg 1 ceFAZolin (ANCEF) 1 gram/10 mL in sterile water (premix) 2,000 mg 1 06/06/2023 diphenhydrAMINE (BENADRYL) 5 0 mg/mL injection 12.5 mg 1 06/06/2023 famotidine (PEPCID) injection 20 mg 1 06/06 fentaNYL (SUBLIMAZE) preserv ative free injection 25 mcg 1 06/06/2023 hydrALAZINE (APRESOLINE) injection 5 mg 1 1 08/07/2022 HYDROcodone-acetaminophen (N ORCO) 5-325 mg per tablet 1 tablet 1 06/06/2023 HYDROmorphone (DILAUDID) injection 0.2 mg 1 06/06/2023 labetaloL (NORMODYNE,TRANDAT E) injection 5 mg 1 06/06/2023 Lactated Ringer's (LR) infusion 1 lidocaine PF (XYLOCAINE) 10 mg/mL (1 %) preservative free injection 2-10 mg 1 06/06/2023 meperidine (DEMEROL) preserv ative free injection 12.5 mg 1 06/06/2023 naloxone (NARCAN) 0.4 mg/mL injection 0.04-0.4 mg 1 06/06/2023 onabotulinumtoxin A (BOTOX) injection 1 ondansetron (ZOFRAN) injection 4 mg 1 06/06 prochlorperazine (COMPAZINE) injection 5 mg 1 06/06/2023 scopolamine patch 72 hour 1 patch 1 023 sodium chloride 0.9% flush 0.5-20 mL 1 05/25 sodium chloride 0.9% irrigation 1 3 sodium chloride bacteriostat ic 0.9 % injection 1 06/06/2023 Discharge Count Last Ordered Date First Orde red Date DISCHARGE PATIENT 1 06/06/2023 documented in this encounter Care Teams Palliative Care Coordinator Relationship Specialty Start Date End Date Mick Flowers MD PCP - General 05/14/17 documented as of this encounter
--- OUTSIDE RECORDS SUMMARY | 2024-06-29 00:27 | XMS_ITS | Encounter Summary ---
Author Organization [facility] Address [address] [facility] [address] [place] [address] Phone Care Team Providers Care Hand Glove Cleaner Name Role Phone Mick Flowers MD Primary Care Provider [phone] Reason for Visit * Consultation (Routine) - Closed Specialty Diagnoses / Procedures Referred By Contac t Referred To Contact Neurology Diagnoses Multiple sclerosis (HCC) Mick Flowers MD [address] [place] [id number] Phone: tel: fax: [facility] (All Locations) Referral ID Status Reason Start Date Expiration Date V isits Requested Visits Authorized [id number] Closed Specialty Services Required 05/30/2023 06/28/2024 1 1 Encounter Details Date Type Department Care Team (Late st Contact Info) Description 06/05/2023 11:00 AM CONTRACT LOADER Office Visit 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 on file Not on file documented as of this encounter Last Filed Vital Signs Vital Sign Reading Time Taken Comments Blood Pressure 142/88 06/05/2023 10:22 AM CONTRACT LOADER Pulse 79 06/05/2023 10:22 AM CONTRACT LOADER Temperature - - Respiratory Rate - - Oxygen Saturation - - Inhaled Oxygen Concentration - - Weight 82.1 kg (181 lb) 06/05/2023 10:22 AM CONTRACT LOADER Height 177.8 cm (5' 10 ) 06/05/2023 10:22 AM CONTRACT LOADER Body Mass Index 25.97 06/05/2023 10:22 AM CONTRACT LOADER documented in this encounter Patient Instructions * Patient Instructions* Cherry Minor MD - 06/05/2023 11:00 AM CONTRACT LOADER Dear Mr Emery, It ws nice to see you today. I do see on your exam some rather subtle worsening. As you know, you are probably a candidate for two completely different studies outside of our site:One is a study only for PPMS subjects at [place] of umbilical cord stem cells and the other is a drug study at [facility]. The drug being studied at [facility] is pioglitazone. It is oral. Brand name is ACTOS. Your cervical spine disk and bony disease appear like it might eventually need surgery. I will gladly refer you to a minimally invasive spine surgeon. If you don't join the [facility] study where they will probably do MRIs, we should get another set of MRIshere for monitoring of any medications you may try. I recommend that we consider a medication, either ocrelizumab infusions (B cell depletion) or the [facility] (or [place]) study. Call me if you need me. If you don't go to [facility], let's plan to see you again as soon as you get Medicare. [facility]. RACT LOADER RACT LOADER RACT LOADER RACT LOADER RACT LOADER documented in this encounter Progress Notes * Cherry Minor MD - 06/05/2023 11:00 AM CST Time spent on 06/05/23 reviewing chart prior to visit: 7:54am - 8:02am (8min) Time spent during visit itself: 10:50 am - 11:49am (59min) Time spent on 06/05/23 after visit orders/charting etc: 5:0- 5:05pm ( 5min) Total time on 06-05-23 by [facility] : 72 total minutes. Patient Name: MARITA EMERY Medical Record Number (MRN): [id number] Date of (): 1965 Encounter Date: 06/05/2023 Chief Complaint Marita Emery is a 57 y.o. male seen today for MS followup, medication and symptom management. Here alone. Dr. Maddie Block Resident in room. Pt was last seen on 11-14-22 by me. Some portions of this note were copied forward from our previousnote dated 11-14-22, confirmed today at this visit and revised as appropriate. 06/05/2023 . Pt is on no DMT. I sent him a note about the [place] study of DUOC-01 umbilical derived stem cells in advance of this meeitng. Results: Last Labs: 05-21-23: ALL WNL: Vit D, CK, CMP, CBC, UA, PSA DEXA 11-22-2022: SUMMARY: Bone mineral density is near the young adult normal mean with no increasedrisk for fracture. Still this is Last MRI: 10-05-21: COMPARISON: 08/09/2007 (14 years prior) FINDINGS: BRAIN: On this MRI examination, there are approximately 10 of FLAIR/S0kcnajffpiugt lesions. There are multiple foci of hyperintensity on FLAIR and T2-weighted images within the white matter compatible with demyelinating plaques of multiple sclerosis. This includes periventricular, callosal,cortical lesions. New Brain T2 Lesions: 4, T1 Hypointense Black Holes : 0 Enhancing Brain Lesions: 0 T2/FLAIR [place] of Disease: Mild, less than 10 typical [...] to the prior examination. Electronically signed by: Mayar Turner M.D., Ph.D. HPI Interim: Dragging right leg. BOTOX injections to bladder - has done it for 7 years and he gets it every 6 months - very beneficial. QUALITY of life much better. Patient is walking with a ski pole when out. He has tripped at work, and now not working. Has had BP problems for long time. Pt reports back and neck pain. He was getting back injections for pain. Does annual skin checks with quill machine tender. [facility] saw him 12/14/2020 and wrote: Interim: I am seeing him in virtual visit today because of the following communication yesterday. Luan Minor, I have developed symptoms of IBS, diarrhea attacks, over the last year. I have been seen by a Gastro specialist, and they conducted an upper GI and colonoscopy, removed a few benign pollups, and prescribed some IBS meds. It seems to be mildly under control, but when I do have an attack, their is no controlling the urgency, I need to find a bathroom fast. Could this be another MS symptom, or just getting older and a more sensitive stomach? It's becoming something I have to manage along with the bladder. Thanks, Marita Emery [phone] Today 12-14-20 on this telemed visit, Mr Emery reports - in past year, has had UGI and colonoscopy for GI pain. Has had intermittent diarrhea. Polyps removed. Has been taking pepcid and prilosec, alternating (told by GI not to take prilosec (omeprazole) continually). When has an abdominal attack, has to get to bathroom or will have incontinence. This happens about once per week or so. This is when he has diarrhea. In between, he reports normally formed bowel movemments, which do not cause urgency or bowel incontinence. When he has these abdominal attacks with bowel incontinence/urgency, he has symptoms of discomfort. Back in 'old , could control his bowel sphincter when had diarrhea but now cannot. He cannot hold it in when has diarrhea. Yet, if he has a normal bowel movement, he can hold it in. Happens more after the first meal of the day, but food diary he did did not identify a particular food culprit. Notably, pt has other Sphincter related problems including ED, and has had urinary incontinence controlled with BOTOX injections. Last MRI: LAST regular MRI was Jul 2007 in our system. It had about 5-7 mostly non-specific lesions. BRAIN only. No CELs.. No cord MRIs. There was one lesion in the anterior corpus callosum, and one left frontal juxtacortical lesion, but no infratentorial lesions and no cord MRIs at all. This is myexamination of those images on my home laptop on 02-15-2020. Here are the clinical scores and MRI measurements of PRAlexsander (Mr Emery) in the [facility] longitudinal study. This patient belongs to the [...] Neurological History: Mr. Emery is a former [place] worker in [employer] and has lived in [place] and [place], [place]. He is Rt handed. Mr Emery [...] LP (abnormal), MRI. Diagnosis made when in [employer]. 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 MS [...] or fatigue. Not excessive. Bowel problems developed [id number], with intermittent diarrhea and stool incontinence. No stool incontinence when having a normal BM. He had COVID-12 Jun 2020; it was a mild case and did well. Later, he was vaccinated with an mRNA vaccine. Added case to the [employer] Registry. No Known Allergies Takes Xanax nightly for sleep (0.25mg at HS and 0.25 at 4am) Still gets bladder BOTOX. Dr. Keyla Lopez. Current Outpatient Medications: ALPRAZolam (XANAX) 0.5 mg [...] (two) times a day as needed for indigestion, Disp: , Rfl: felodipine (PLENDIL) 5 mg 24 hr tablet, Take 1 tablet (5 mg total) by mouth 2 (two) times a day, Disp: , Rfl: hydroCHLOROthiazide (HYDRODIURIL) 25 mg tablet, Take 1 tablet (25 mg total) by mouth every morning,Disp: , Rfl: POTASSIUM CHLORIDE ER 20 mEq CR tablet, Take 1 tablet (20 mEq total) by mouth every morning, Disp: , Rfl: 5 valsartan (DIOVAN) 320 mg tablet, Take 1 tablet (320 mg total) by mouth nightly, Disp: , Rfl: Patient Active Problem List Diagnosis Neurogenic bladder disorder Abnormality of gait and mobility High risk medication use Hypercholesterolemia Primary insomnia Multiple sclerosis (HCC) Penile discharge Urethral stricture Urinary tract infection OAB (overactive bladder) Bowel incontinence Cardiovascular risk factor Abnormal MRI Vitamin D deficiency Anxiety Erectile dysfunction Neurogenic bladder Urge urinary incontinence Medication management Past Medical History: Diagnosis Date COVID-19 positive [...] PUNCTURE Right 12/12/2022 SHOULDER ARTHROSCOPY Left unknown Family History Problem Relation Age of Onset Melanoma Mother Family history of malignant melanoma - (Added by TW Conv) Cancer Mother Alcohol abuse Father Cancer Father Hypertension Father Hypertension Other Family history of Hypertension; Anesthesia problems Neg Hx Malig Hypertension Neg Hx Pseudochol deficiency Neg Hx Malig Hyperthermia Neg Hx Patient reports NO family history of MS but has + FamHx of malignant melanoma (mother) Social History Tobacco Use Smoking status: Never Smokeless tobacco: Never Substance and Sexual Activity Drug use: Yes Frequency: 4.0 times per week Types: Marijuana Sexual activity: Defer Alcohol Use: Alcohol Misuse (05/11/2023) AUDIT-C Frequency of Alcohol Consumption: 2-3 times a week Average Number of Drinks: 3 or 4 Frequency of Binge Drinking: Never Vital Signs BP 142/88 (BP Location: Right arm, Patient Position: Sitting) Pulse 79 Ht 177.8 cm (5' 10 ) Wt 82.1 kg (181 lb) BMI 25.97 kg/m?? Review of Systems A 12 point review of systems has been performed by the patient and has been reviewed with me duringthis visit. Unless checked yes , all other systems negative except per here, chief complaint or HPI. See scanned sheet. Frequent falls and near falls. BP is an issue. Is on 3 different BP meds. MS Paths Results Flowsheet Row Office Visit from 06/05/[address] [facility] Multiple Sclerosis with Cherry Minor MD Office Visit from 09/13/[address] [facility] Multiple Sclerosis with AnneH. Minor [...] [phone] Employment Status disabled disabled Exam 06/05/23 by [facility] with Dr Maddie Block PGY4 doing part of exam. General: MARITA EMERY is a well-developed, well-nourished male in no acute distress. The mood is normal. There is no pedal edema. Neurologic Mental Status: He is awake, alert and oriented. Speech is fluent and he follows commandswithout difficulties. Cranial Nerves: 20/25 OS, 20/30 OD. No glasses. No APD. Red desat OD. Vision: No cranial nerve abnormalities apparent (pt had OD optic neuritis in past). There is no red desaturation.Pupils are O.D./O.S.: 2/2 --> 1/. VFFTC. Extraocular movements arefull. There is no nystagmus. NIURKA is not present. No adductor lag. Facial sensation is intact to light touch. The face is symmetric. There is no dysarthria. Shoulder shrug is equal. Tongue movements are normal. hearing intact to finger rub Palate elevates symmetrically. Motor Examination: No Lhermitte's In UEs, tone is normal bilaterally. No pronator drift of UEs. FFMs, intact LUE and slowed RUE. No orbiting. 5/5 in UE's. Normal tone in Ues. LLE is 5/5 and normal tone. RLE: Has clear spastic catch right knee and hip right, and increased in right ankle and ?? left ankle. In the LEs, 4-/5 in the right psoas, and 5/5 in the left psoas. Quadriceps RLE - 4+/5 on right , and 55 on left. Hamstrings 4/5 on right and 5/5 on the left. 4- /5 nateroflexion of right ankle, but 5/5 on the left. His right foot dorsiflexes slower than left, and is 4-/5 on right, 5/5 Right foot dorsiflexion 4/5 and big toe dorsiflexion are now 4/5. Toe curling is 5/5 left, 4+/5 right. 5/5 plantaron LLE, and 4+/5 plantar flexion RLE. There is no postural tremor. Sensation: There is no Lhermitte's. Vibratory sensation in the right great toe is mild-moderately decreased. Vibratory sensation in the left great toe is mildly decreased. Finger vibration normal left and right. Temp is same in the Ues, Romberg is negative, but strong sway. Toes, clearly upgoing bilaterally. Coordination: No UE rebound. Finger to nose is normal RUE, and LUE. Crdd-cctx-eche is normal bilat.Rhythmic toe tapping - normal left, abnormally slow RLE. Toe tapping slower RLE. Ambulation: The patient is able to walk without assist, but Gait is R HP with spasticity. Hops 0 times on right foot. Hops 10 times on left foot. He can do tandem multiple steps. Heel height equal bilt. Reflexes: Reflexes in UEs are 3+ and symmetrical throughout. Bilat Calderon's. DTRs: Asymmetry in the knees and at the ankles, where has more clonus on right and at knee. 3++ DTRright knee. with unequivocal right toes upgoing Left knee is 3+, but less than Rt. Right ankle - 3+, left 1-2+, with reinforcement. Neurologic Exam 10-08-2018 (exam done by [facility]); Walk Aid: none General: MARITA EMERY is [...] is normal. Rapid alternating movements are normal. [id number] is normal. Rhythmic toe tapping - normal. [...] temporal thinning OD - on prior visits Not done today. Assessment/Plan Diagnosis Plan 1. Multiple sclerosis (HCC) Ambulatory referral to Neurology 2. High risk medication use 3. Abnormality of gait and mobility Assessment PPMS On no DMT. Exam and MRI suggest progression. I think patient should strongly consider DMT at this point. He is risk averse. He could try glatiramer, given that in the PROMiSE trial men on GA with PPMS hadslower progression. But those data are weak I told him that Ocrevus probably superior, however, but no Jjpl-rv-rvsz in PPMS men has been done. He has +Fam Hx which concerns him for Ocrevus or any immunosuppressive agent. Dex ordered last visit was well WNL. I discussed [facility] trial of pioglitazone with him. He is interested to hear more. Plan See above under assessment, and below under Pt Instructions for plan Patient Instructions Dear Mr Emery, It ws nice to see you today. I do see on your exam some rather subtle worsening. As you know, you are probably a candidate for two completely different studies outside of our site:One is a study only for PPMS subjects at [place] of umbilical cord stem cells and the other is a drug study at [facility]. The drug being studied at [facility] is pioglitazone. It is oral. Brand name is ACTOS. Your cervical spine disk and bony disease appear like it might eventually need surgery. I will gladly refer you to a minimally invasive spine surgeon. If you don't join the [facility] study where they will probably do MRIs, we should get another set of MRIshere for monitoring of any medications you may try. I recommend that we consider a medication, either ocrelizumab infusions (B cell depletion) or the [facility] (or [place]) study. Call me if you need me. If you don't go to [facility], let's plan to see you again as soon as you get Medicare. [facility]. >50% of the time was spent counseling and/or coordinating care as per above note. Dr Maddie BlockPGY4 in room entire time. Discussion and decision making was of high-complexity due to the patient's high risk condition, multiple co-morbidities, neuropsychological co-morbidities, cognitive problems, and/or multiple sites of involved disability. The recommended medications are potentially of high risk consequence in theirside effects. Cherry Minor MD Professor of Neurology [facility] Department of Neurology [facility] ; RACT LOADER documented in this encounter Plan of Treatment Not on file documented as of this encounter Visit Diagnoses Diagnosis Multiple sclerosis (HCC)- Primary Multiple sclerosis High risk medication use Abnormality of gait and mobility documented in this encounter Orders Outpatient Referral Count Last Ordered Date Fir st Ordered Date AMB REFERRAL TO NEUROLOGY 1 06/05/2023 documented in this encounter Care Teams Hand Glove Cleaner Relationship Specialty Start Date End Date Mick Flowers MD PCP - General 05/14/17 documented as of this encounter
--- OUTSIDE RECORDS SUMMARY | 2024-06-29 00:27 | XMS_ITS | Encounter Summary ---
Author Organization [facility] Healthcare Address [address] [place] [address] Care Team Providers Care Youth Specialist Name Role Phone Mick Flowers MD Primary Care Provider [phone] Reason for Visit * Auth/Cert (Routine) Specialty Diagnoses / Procedures Referred By Contac t Referred To Contact Diagnoses Neurogenic bladder OAB (overactive bladder) Urge urinary incontinence Neurogenic bladder [N31.9] OAB (overactive bladder) [N32.81] Urge urinary incontinence [N39.41] Procedures GA CYSTOURETHROSCOPY INJ CHEMODENERVATION BLADDER GA CYSTOURETHROSCOPY INJECTION BOTOX 300 UNITS CYSTOSCOPY Referral ID Status Reason Start Date Expiration Date Visits Re quested Visits Authorized [id number] 1 1 Encounter Details Date Type Department Care Team (Late st Contact Info) Description 06/06/2023 1:51 PM PEDIATRIC DERMATOLOGIST - 06/06/2023 3:06 PM PEDIATRIC DERMATOLOGIST Surgery [facility] Operating Room [address] [place] [address] Marquis Lopez MD [address] [facility] [address] [place] [address] INJECTION BOTOX 300 UNITS Surgery Details Date/Time Status Location OR Service Patient Class Case Cl ass Case Type Trauma Case? 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 on file Not on file documented as of this encounter Last Filed Vital Signs Vital Sign Reading Time Taken Comments Blood Pressure 139/84 06/06/2023 2:40 PM PEDIATRIC DERMATOLOGIST Pulse 71 06/06/2023 2:40 PM PEDIATRIC DERMATOLOGIST Temperature 35.9 ??C (96.6 ??F) 06/06/2023 2:40 PM CS T Respiratory Rate 10 06/06/2023 2:40 PM PEDIATRIC DERMATOLOGIST Oxygen Saturation 97% 06/06/2023 2:40 PM PEDIATRIC DERMATOLOGIST Inhaled Oxygen Concentration - - Weight 79.8 kg (176 lb) 05/11/2023 10:00 AM PEDIATRIC DERMATOLOGIST Height 177.8 cm (5' 10 ) 05/11/2023 10:00 AM PEDIATRIC DERMATOLOGIST Body Mass Index 25.25 05/11/2023 10:00 AM PEDIATRIC DERMATOLOGIST documented in this encounter Discharge Instructions * Discharge Instructions* Jennifer Garber RN - 06/06/2023 1:16 PM PEDIATRIC DERMATOLOGIST Discharge Instructions: Surgery performed: cystoscopy and bladder [...] of narcotic pain medication include Percocet, Oxycontin, Corinne, Hydrocodone, and Oxycodone. FAQs (frequently asked questions) [...] physical therapy, we are available to assist: [facility]: [facility] [phone] [facility] [phone] [facility] [phone] How are some things that you can [...] given by your doctor or other health manager wound care. ATRIC DERMATOLOGIST ATRIC DERMATOLOGIST documented in this encounter Medications at Time [...] Normal affect and mood, oriented x 3. ATRIC DERMATOLOGIST Source Note - Sapphire Devries NP - 05/30/2023 10:42 AM PEDIATRIC DERMATOLOGIST Images from the original note were not included. [facility] for Preoperative Assessment and Planning Preoperative Evaluation Record Evaluation type/location: TPAP from [facility] [place] Planned procedure site: [facility] OR Date: 05/30/23 [...] cognitive impairment and carotid artery stent Comments: [facility] Sclerosis clinic [place] 10/2022 Cardiovascular + Hypertension (states his BP is currently well controlled) Hypertension year diagnosed: 1984. + Hyperlipidemia (on statin) Pertinent negatives: CAD ; MT ; CABG ; valvular heart disease; atrial [...] provided by telephone and electronically sent via [employer]. Patient verbalized understanding of instructions. Blood bank [...] (DIOVAN) 320 mg tablet 05/10/2023 07/19/22 -- Provider, MD Bettie No current [...] for this visit. Romain index score: 100 ATRIC DERMATOLOGIST documented in this encounter Miscellaneous Notes * Perioperative Nursing Note - Jennifer Garber RN - 06/06/2023 2:52 PM CST Pt cleared for discharge by Dr. Dsouza. Went over discharge instructions with patient and . ATRIC DERMATOLOGIST * Op Note - Marquis Lopez MD - 06/06/2023 2:01 PM CST Date of Surgery: 06/06/2023 Preoperative diagnosis: neurogenic bladder with detrusor overactivity and urgency urinary incontinence Post-operative diagnosis: neurogenic bladder with detrusor overactivity and urgency urinary incontinence Procedure: Cystoscopy, injection of 300 units of onabotulinumtoxinA (Botox) into the bladder Surgeon: Marquis Lopez MD Promotional Marketing Analyst: Papo Munguia MD Anesthesia: General Complications: None [...] Marquis Lopez, was present throughout the surgery. ATRIC DERMATOLOGIST * Brief Op Note - Marquis Lopez MD - 06/06/2023 2:01 PM CST Operative Progress Note Surgical Team: Surgeon(s) and Role: * Marquis Lopez MD - Primary * Papo Munguia MD - Resident - Assisting Anesthesiologist: Adam Dsouza MD FOOD CHECKERS [employer] CASHIERS SUPERVISOR: Trino Guidry CRNA Hospital Ward Clerk: Brandy Barnett RN Scrub: Charlene Mckenna ST [...] the entire procedure (including opening and closing). ATRIC DERMATOLOGIST * Pre-Procedure Instructions - Sapphire Devries NP - 05/30/2023 10:31 AM CST Center for Preoperative Assessment and Planning CPAP Clinic Location: [facility] The night before your surgery: * [...] with COVID-19. You test positive for COVID-19. ATRIC DERMATOLOGIST * Perioperative Nursing Note - Radha Anderson RN - 05/11/2023 10:07 AM CST [facility] for Preoperative Assessment and Planning Perioperative Nursing Note Telephone Preoperative Evaluation ([facility]) - TELEPHONE ONLY, NO PHYSICAL EXAM Date: [...] Chart: Copy requested from other (Comment) (patient) Communication/Sales Exec Needs Communication Barriers: Visual Communication Needs: Glasses Assistive Devices/DME: Eyeglasses Discharge Planning Type of Residence: Private residence Living Arrangements: Spouse/significant other Support Systems: Spouse/significant other Patient expects to be discharged to:: Private residence FINISHER PLATE NO ADDITIONAL COMMENTS/ FOLLOW UP ATRIC DERMATOLOGIST * Pre-Procedure Instructions - Radha Anderson RN [...] remove nail coverings, artificial nails and nail british virgin islander prior to the day of surgery. You should leave your valuables and any jewelry at home. No metal or piercings are allowed in the operating room. You should bring your insurance card, a photo ID (example: Rental Car Porter's License) and a method of payment for [...] Chart. If you are having surgery at [facility], please arrive on the day of surgery [...] Pathway to Excellent Care by the followinglink: [email or web address] How To Prepare Your Skin For Surgery [...] Remove nail coverings, artificial nails and nail brit[place] virgin islander. Place clean linens on your bed the [...] questions, please call the CPAP Staff at [phone], Sunday-Sunday 8am-4:30pm. All patients should read the below section: COVID 19 Updates & Visitor Policy: Please access [email or web address] for the most updated information. Information on [facility]: Please view [email or web address] (Patient & Visitor Information) for additional details regarding Advanced Directive forms, AWARE, directions, parking information, lodging, Internet access, dining and more. Information on [facility] or [facility] ([facility]): Please view [email or web address] (Patient and Visitor Information) for parking/directions and more. For MyChart information, to activate account or password recovery, please go to [email or web address] or call [phone] (toll-free: [phone]), Sun- Sunday 8am-5pm. Information for Suicide Prevention: National Suicide Prevention Lifeline (2-830- 698-IOLK (5086)). Surgery Times: For patients having surgery @ [facility], if your surgeon's office has not notified you of your surgery time by 2pm THE BUSINESS DAY BEFORE your surgery, please call the surgery center at [phone] and ask for your surgeon's office Dr Lopez. ATRIC DERMATOLOGIST documented in this encounter Plan of Treatment Not on file documented as of this encounter Procedures Procedure Name Priority Date/Time Associated Diagnosis Comments CYSTOSCOPY 06/06/2023 1:44 PM PEDIATRIC DERMATOLOGIST Neurogenic bladder OAB (overactive bladder) Urge urinary incontinence Special Needs 300 UNITS OF BOTOX TO BE MIXED WITH 30 CC NORMAL SALINE IN OR; CHERELLE NEEDLE FOR INJECTION INJECTION BOTOX 06/06/2023 1:44 PM PEDIATRIC DERMATOLOGIST Neurogenic bladder OAB (overactive bladder) Urge urinary [...] to floor. Rate/Dose Verify 06/06/2023 1:44 PM PEDIATRIC DERMATOLOGIST 30 mL/hr New Bag 06/06/2023 12:24 PM PEDIATRIC DERMATOLOGIST 30 mL/hr 30 mL/hr onabotulinumtoxin A (BOTOX) injection As needed, Starting on Sun06/06/23 at 1406, Intra-Op Given 06/06/2023 2:06 PM PEDIATRIC DERMATOLOGIST 300 Units Surgical Site sodium chloride 0.9% irrigation As needed, Starting on Sun06/06/23 at 1406, Intra-Op Given 06/06/2023 2:06 PM PEDIATRIC DERMATOLOGIST 3,000 mL Surgical Site sodium chloride bacteriostatic 0.9 % injection As needed, Starting on Sun06/06/23 at 1406, Intra-Op Given 06/06/2023 2:06 PM PEDIATRIC DERMATOLOGIST 30 mL Surgical Site documented in this encounter Active and Recently Administered Medications Times are shown in PEDIATRIC DERMATOLOGIST. Scheduled Medication Order 06/04/2023 06/05/2023 06/06/2023 ceFAZolin [...] Intra-Op 1406 (Given - Provid er: Marquis Lopze MD - Comment: Mixed separately with 10 [...] Intra-Op 1406 (Given - Provid er: Marquis oLpez MD) sodium chloride bacteriostatic 0.9 % injection [...] 06/06/2023 hydrALAZINE (APRESOLINE) injection 5 mg 1 08/07/2022 HYDROcodone-acetaminophen (N ORCO) 5-325 mg [...] 0.4 mg/mL injection 0.04-0.4 mg 1 06/06/2023 ondansetron (ZOFRAN) injection 4 mg 1 06/06 prochlorperazine (COMPAZINE) injection 5 mg 1 06/06/2023 scopolamine patch 72 hour 1 patch 1 023 sodium chloride 0.9% flush 0.5-20 mL 1 05/25 Discharge Count Last Ordered Date First Orde red Date DISCHARGE PATIENT 1 06/06/2023 documented in this encounter Care Teams Youth Specialist Relationship Specialty Start Date End Date Mick Flowers MD PCP - General 05/14/17 documented as of this encounter
--- OUTSIDE RECORDS SUMMARY | 2024-06-29 00:27 | XMS_ITS | Encounter Summary ---
Author Organization [facility] Address [address] [place] [address] Phone Care Team Providers Care Center Director Name Role Phone Mick Flowers MD Primary Care Provider [phone] Encounter Details Date Type Department Care Team (Late st Contact Info) Description 11/06/2023 Telephone [facility] Advanced Medicine 8th [place] [address] [place] [address] Anne Shepherd Social History Tobacco Use Types Packs/Day Years [...] on file 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 Gender Identity Not on file Sexual Orientation Not on file 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 [] [x] If 'Yes', Schedulefirst available with Cardio-Oncology If yes where were you treated? Have you ever seen a Director Acute in an office setting? [] [x] IF SCHEDULING PATIENT WITH SRIDEVI Have you had a baby in the last year or are you ? [] [] Have you had heart or blood pressure problems during a previous ? [] [] Dr. Georgia Yee Patients only: Are you a hemodialysis or peritoneal dialysis patient? (If yes then patient must be referred from another MD, DO NOT SCHEDULE) [] [x] Are you a machine ii coremaker? (If yes schedule in Sports Medicine clinic [] [x] Patient History Questions Yes No Where/When/Notes Have you EVER been hospitalized for ANY cardiac issue? [] [x] Have you ever had any cardiac testing, imaging, or procedures? (Testing - echo, EKG, stress) (Imaging - Cardiac MRI, CT or calcium scoring) (Procedure - Ablation, Cardioversion, CABG) [x] [] EKG - pcp maybe Calcium scoring - [place], [place] Stress test - several yrs ago Have you ever had a sleep study? [] [x] Do you have a device? If yes what type? (Pacemaker, Defibrillator, Implanted Loop Recorder) [] [x] If yes, where and when was device put in? Web Master? ([employer], [employer], [employer]) Appointment Date: 03/05/24 Provider: Joselito hills Location: [facility] [x] Confirm appt date, time, provider and location. [x] Advise pt to arrive 15- 20 min early. [x] Advise patient to bring medications/list, photo ID and insurance card [x] Advise of New PatientPacket being mailed to them. documented in this encounter Plan of Treatment Not on file documented as of this encounter Visit Diagnoses Not on filedocumented in this encounter Care Teams Center Director Relationship Specialty Start Date End Date Mick Flowers MD PCP - General 05/14/17 documented as of this encounter
--- OUTSIDE RECORDS SUMMARY | 2024-06-29 00:27 | XMS_ITS | Encounter Summary ---
Author Organization [facility] Address [address] [place] [address] Phone Care Team Providers Care Regional Business Development Manager Name Role Phone Mick Flowers MD Primary Care Provider [phone] Encounter Details Date Type Department Care Team (Late st Contact Info) Description 09/11/2023 Telephone [facility] Orthopaedic Surgery [address] [facility] [address] [place] [address] Walter Rojas MD [address] [place] [address] Social History Tobacco Use Types Packs/Day Years [...] on file Legal Sex Male 3:12 AM FACE BURLER Gender Identity Not on file Sexual Orientation Not on file 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 Last injection 12/16/22 Right L4 L5 TESI. Last RPV 09/12/22. He can be reached at [phone] documented in this encounter Plan of Treatment Not on file documented as of this encounter Visit Diagnoses Not on filedocumented in this encounter Care Teams Regional Business Development Manager Relationship Specialty Start Date End Date Mick Flowers MD PCP - General 05/14/17 documented as of this encounter
--- OUTSIDE RECORDS SUMMARY | 2024-06-29 00:27 | XMS_ITS | Encounter Summary ---
Author Organization [facility] [employer] [facility] Address [address] [place] [address] Phone Care Team Providers Care Metalizing Supervisor Name Role Phone Mick Flowers MD Primary Care Provider [phone] Encounter Details Date Type Department Care Team (Late st Contact Info) Description 12/11/2022 Orders Only [facility] Advanced Medicine ([facility] - [facility] Urology [address] [place] [address] [place] [address] Marquis Lopez MD [address] [facility] [address] [place] [address] Social History Tobacco Use Types Packs/Day Years [...] on file 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 Gender Identity Not on file Sexual Orientation Not on file 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 on file Not on file documented as of this encounter Plan of Treatment Not on file documented as of this encounter Procedures Procedure Name Priority Date/Time Associated Diagnosis Comments TOTAL TESTOSTERONE Routine 12/11/2022 9: 07 AM CDT documented in this encounter Results * Testosterone (12/11/2022 9:07 AM CDT) Testosterone 324 250 - 827 ng/dL [facility] 12/11/2022 9:07 AM CDT 12/11/2022 9:08 AM CDT us Marquis Lopez MD LAB BLOOD ORDERABLES Final Res ult [facility] [address] [place] [address] documented in this encounter Visit Diagnoses Not on filedocumented in this encounter Care Teams Metalizing Supervisor Relationship Specialty Start Date End Date Mick Flowers MD PCP - General 05/14/17 documented as of this encounter
--- OUTSIDE RECORDS SUMMARY | 2024-06-29 00:27 | XMS_ITS | Encounter Summary ---
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 Radiology. ??There will be no report generated by a [facility] Radiologist. Narrative [facility] - 11/07/2023 12:29 PM CDT EXAMINATION: ??Images For Reference Purposes Only us Georgia Yee MD IMG CT PROCEDURES Final Resul t [facility] documented in this encounter Visit Diagnoses Not on filedocumented in this encounter Care Teams Yacht Builder Relationship Specialty Start Date End Date Mick Flowers MD PCP - General 05/14/17 documented as of this encounter
--- OUTSIDE RECORDS SUMMARY | 2024-06-29 00:27 | XMS_ITS | Encounter Summary ---
Author Organization [facility] Address [address] [place] [address] Phone Care Team Providers Care Laborer Heading Name Role Phone Mick Flowers MD Primary Care Provider [phone] Encounter Details Date Type Department Care Team (Late st Contact Info) Description 09/11/2023 Orders Only 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
--- OUTSIDE RECORDS SUMMARY | 2024-06-29 00:27 | XMS_ITS | Encounter Summary ---
Author Organization [facility] Address [address] [place] [address] [place] [address] Phone Care Team Providers Care Structural Engineering Drafting Officer Name Role Phone Mick Flowers MD Primary Care Provider [phone] Reason for Visit * Reason Comments Follow-up * Consultation (Routine) - Closed Specialty Diagnoses / Procedures Referred By Conttanya t Referred To Contact Urology Diagnoses Urge urinary incontinence Mick Flowers MD [address] [place] [address] Phone: tel: fax: [facility] (All Locations) Referral ID Status Reason Start Date Expiration Date V isits Requested Visits Authorized [id number] Closed Specialty Services Required 01/11/2023 02/10/2024 1 1 Encounter Details Date Type Department Care Team (Late st Contact Info) Description 01/26/2023 9:40 AM CDT Office Visit [facility] ([facility] - [facility] Urology [address] [facility] 11th [place] [address] [place] [address] Micah Roberts NP [address] [facility] [place] [address] Erectile dysfunction due to diseases classified elsewhere (Primary Dx); Urge urinary incontinence; Neurogenic bladder Social History Tobacco Use Types Packs/Day Years [...] on file Legal 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 Gender Identity Not on file Sexual Orientation Not on file 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 y/o male with history of neurogenic bladder with detrusor overactivity and urge incontinence who underwent 300 units of intravesical Botox with Dr. Lopez on 12/13/2022. He continues to perform intermittent catheterization 2-4 times daily. Distant history of unsuccessful bladder augmentation in 1995. Failed sacral nerve stimulator in 1997. Testosterone on 12/11/22 -- I independently reviewed his testosterone and interpret this as being inthe normal range for his age. He currently uses 20 mcg of Edex erectile dysfunction. He has been using this for number of years. Unfortunately over the past 6 months or so he is not had as good results with this. He reports it helps him achieve about 75% of rigidity. He is interested in increasing the dosage or other treatment options. PHYSICAL EXAM: General: Healthy-appearing male in no acute distress ASSESSMENT/PLAN 57 y.o. y/o male with history of MS with neurogenic bladder and erectile dysfunction. He is not responding as well to 20 mcg of Edex. We discussed increasing his prescription to 40 mcg of Edex but having him only start with 30 mcg per injection. If that is ineffective then he can titrate up to 40. We did discuss the risk of priapism in the steps take should that occur. Plan for follow-up in 1 year. This note was generated by speech recognition software and may contain homophonic word substitutions or errors, please contact me for any questions. documented in this encounter Plan of Treatment Not on file documented as of this encounter Visit Diagnoses Diagnosis Erectile dysfunction due to diseases classified elsewhere- Primary Urge urinary incontinence Urge incontinence Neurogenic bladder Neurogenic bladder, NOS documented in this encounter Discontinued Medications Medication Sig Discontinue Reason Start Date End Da te EDEX 20 mcg injection 20 mcg by intracavity route as needed for erectile dysfunction 06/11/2019 01/26/2023 documented as of this encounter Orders Outpatient Referral Count Last Ordered Date Fir st Ordered Date AMB REFERRAL TO UROLOGY 1 01/26/2023 documented in this encounter Care Teams Structural Engineering Drafting Officer Relationship Specialty Start Date End Date Mick Flowers MD PCP - General 05/14/17 documented as of this encounter
--- OUTSIDE RECORDS SUMMARY | 2024-06-29 00:27 | XMS_ITS | Encounter Summary ---
Author Organization [facility] Address [address] [place] [address] Care Team Providers Care Command And Control Name Role Phone Mick Flowers MD Primary Care Provider [phone] Reason for Referral * Diagnostic Imaging (Routine) - Closed Specialty Diagnoses / Procedures Referred By Contac t Referred To Contact Radiology Diagnoses Lumbar spondylosis Procedures IR Transforaminal Epidural Injection Lumbar Sacral 1 Level Right Walter Slaughter MD [address] [facility] [place] [address] Phone: tel: fax: [address] [address] Referral ID Status Reason Start Date Expiration Date Visits Re quested Visits Authorized [id number] Closed 11/29/2022 12/29/2023 1 1 Reason for Visit * Diagnostic Imaging (Routine) - Closed Specialty Diagnoses / Procedures Referred By Contac t Referred To Contact Radiology Diagnoses Lumbar spondylosis Procedures IR Transforaminal Epidural Injection Lumbar Sacral 1 Level Right Walter Slaughter MD [address] [facility] [place] [address] Phone: tel: fax: [address] [address] Referral ID Status Reason Start Date Expiration Date Visits Re quested Visits Authorized [id number] Closed 11/29/2022 12/29/2023 1 1 Encounter Details Date Type Department Care Team (Latest Contact Info) Description 12/12/2022 2:14 PM CDT - 12/12/2022 11:59 PM CDT Hospital Encounter [facility] [id number] [place] [address] [id number] Walter Slaughter MD [address] [facility] [facility] [address] [place] [address] Lumbar spondylosis Discharge Disposition: Discharge to home or self [...] on file 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 Gender Identity Not on file Sexual Orientation Not on file 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 on file Not on file documented as of this encounter Last Filed Vital Signs Vital Sign Reading Time Taken Comments Blood Pressure 156/91 12/12/2022 3:45 PM CDT Pulse 69 12/12/2022 3:45 PM CDT Temperature - - Respiratory Rate 16 12/12/2022 3:45 PM CDT Oxygen Saturation 98% 12/12/2022 3:45 PM CDT Inhaled Oxygen Concentration - - Weight - - Height - - Body Mass Index - - documented in this encounter Discharge Instructions * Patient Instructions* Walter Slaughter MD - 12/12/2022 3:00 PM CDT Post Procedure Instructions You received an epidural steroid injection to your lumbar spine on the right side. Your injection included: Lidocaine (numbing medicine). The [...] drive for one hour after the injection. Dexamethasone (steroid medicine for inflammation and pain). The [...] those with type I diabetes. Check fasting (network solutions architect prior to first meal of the day) [...] concerns after hours, call our exchange at [phone]. For all other questions regarding the procedure, please call our office at [phone]. Pain Diary Please fill out the pain diary chart below and call or message via [employer] the medical provider whorequested the injection, Dr. Slaughter, in two weeks. By how much has your pain improved after your injection? Therapeutic Injection: NOT IMPROVED IMPROVED A LITTLE IMPROVED A [...] Progress Notes * Walter Slaughter MD - 12/12/2022 3:00 PM CDT Right L5-S1 Transforaminal Epidural Steroid Injection [facility] Department of Orthopedic Surgery Division of Physical Medicine and Rehabilitation Patient name: Doc Emery Date of : 1965 Date of service: 12/12/2022 Doc Emery presents to the fluoroscopy suite for a fluoroscopically guided right L5-S1 transforaminal epidural steroid injection for conservative treatment of lumbar radicular pain. After informed consent was obtained, the patient was positioned in the prone position on the fluoroscopy table. The area was prepped with chlorhexidine and draped in sterile fashion. Using a 25 gauge 2 inch needle, 1-2 mL of 1% lidocaine was infused subcutaneously to anesthetize the region. Then, a 25 gauge 3.5 inch spinal needle was advanced to the posterior superior transforaminal space and advanced into theepidural space under fluoroscopic guidance. Confirmation into the epidural space was obtained with i nfusion of 0.5 mL of Omnipaque contrast, which showed epidural flow as well as nerve sheath flow. Then a combination of 2 mL of 1% lidocaine and 20 mg of 10 mg/mL dexamethasone was infused. The patient tolerated the procedure without complications. Pre and post procedure blood pressure were stable.The patient was given verbal as well as written follow-up instructions. A pain diary was given to the patient with follow-up instructions. At the time of discharge [...] have been addressed. Fluoroscopic guidance used to assist right L5-S1 transforaminal epidural steroid injection. Confirmation of needle placement into the epidural space via the right L5-S1 neural foramen was obtained byinjecting approximately 0.5 mL of Omnipaque contrast. There was no evidence of vascular uptake or subdural flow noted. I personally performed or was present for the entire procedure above. Walter Slaughter MD documented in this encounter Plan of Treatment Not on file documented as of this encounter Procedures Procedure Name Priority Date/Time Associated Diagnosis Comments TRANSFORAMINAL EPIDURAL INJECTION LUMBAR SACRAL 1 LEVEL RIGHT Schedule Routine, Read Routine (OP Routine) 12/12/2022 3:38 PM CDT Lumbar spondylosis documented in this encounter Results * IR Transforaminal Epidural Injection Lumbar Sacral 1 Level Right (12/12/2022 3:38 PM CDT) Narrative [facility] - 12/12/2022 3:39 PM CDT The images from this study are not interpreted by Radiology. ??Please refer to the physician's procedure / OR operative note. us Walter Slaughter MD IMG IR PROCEDURES Final Re sult [facility] documented in this encounter Visit Diagnoses Diagnosis Lumbar spondylosis Lumbosacral spondylosis without myelopathy documented in this encounter Administered Medications Inactive Administered Medications - up to 3 most recent administrations Medication Order MAR Action Action Date Dose Rate Site dexAMETHasone (DECADRON) preservative free solution Administer over 2 Minutes, As needed, Starting on Sun12/12/22 at 1538, Intra-Op Given 12/12/2022 3:38 PM CDT 20 mg iohexoL (OMNIPAQUE) 300 mg iodine/mL injection solution As needed, Starting on Sun12/12/22 at 1538, Intra-Op Given 12/12/2022 3:38 PM CDT 0.5 mL lidocaine PF (XYLOCAINE) 10 mg/mL (1 %) preservative free injection As needed, Starting on 12/12/22 at 1538, Intra-Procedure (IR), Indications: Administration of Local AnesthesiaIndications:Administrati on of Local Anesthesia Given 12/12/2022 3:38 PM CDT 4 mL documented in this encounter Care Teams Command And Control Relationship Specialty Start Date End Date Mick Flowers MD PCP - General 05/14/17 documented as of this encounter
--- OUTSIDE RECORDS SUMMARY | 2024-06-29 00:28 | XMS_ITS | Encounter Summary ---
Author Organization [facility] Address [address] [place] [address] Phone Care Team Providers Care Human Service Specialist Name Role Phone Mick Flowers MD Primary Care Provider [phone] Reason for Referral * Diagnostic Imaging (Routine) - Closed Specialty Diagnoses / Procedures Referred By Contac t Referred To Contact Radiology Diagnoses Lumbar spondylosis Procedures IR Transforaminal Epidural Injection Lumbar Sacral 1 Level Right Walter Rojas MD [address] [facility] [address] [place] [address] Phone: tel: fax: [address] [address] Referral ID Status Reason Start Date Expiration Date Visits Re quested Visits Authorized [id number] Closed 11/29/2022 12/29/2023 1 1 Encounter Details Date Type Department Care Team (Late st Contact Info) Description 11/29/2022 Orders Only [facility] Orthopaedic Surgery [address] [facility] 2nd [address] [place] [address] Walter Rojas MD [address] [facility] [address] [place] [address] Lumbar spondylosis (Primary Dx) Social History Tobacco [...] on file 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 ??Please refer to the physician's procedure / OR operative note. us Walter Rojas MD IMG IR PROCEDURES Final Re sult Performing Organization Address City/State/[facility] Co de Phone Number [facility] documented in this encounter Visit Diagnoses Diagnosis Lumbar spondylosis- Primary Lumbosacral spondylosis without myelopathy Lumbar spondylosis Lumbosacral spondylosis without myelopathy documented in this encounter Care Teams Human Service Specialist Relationship Specialty Start Date End Date Mick Flowers MD PCP - General 05/14/17 documented as of this encounter
--- OUTSIDE RECORDS SUMMARY | 2024-06-29 00:28 | XMS_ITS | Encounter Summary ---
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 Dockery, Dr. Dockery will not be available on this day. documented in this encounter Plan of Treatment Not on file documented as of this encounter Visit Diagnoses Not on filedocumented in this encounter Care Teams Service Cleaner Relationship Specialty Start Date End Date Mick Flowers MD PCP - General 05/14/17 documented as of this encounter
--- OUTSIDE RECORDS SUMMARY | 2024-06-29 00:28 | XMS_ITS | Encounter Summary ---
Author Organization [facility] Address [address] [place] [address] Phone Care Team Providers Care Skull Splitter Name Role Phone Mick Flowers MD Primary Care Provider [phone] Encounter Details Date Type Department Care Team (Late st Contact Info) Description 09/04/2022 Orders Only [facility] Urology [address] [facility] [address] [place] [address] Marquis Lopez MD [address] [facility] [address] [place] [address] Urinary tract infection without hematuria, site unspecified (Primary Dx) Social History Tobacco Use Types Packs/Day Years Used Date Smoking Tobacco: Never Smokeless Tobacco: Never Alcohol Use Standard Drinks/Week Comments Yes 0 (1 standard drink = 0.6 oz pur e alcohol) SOCIAL AUDIT-C Answer Date Recorded Q1: How often do you have a drink containing alc ohol? 2-3 times a week 05/24/2022 Q2: How many drinks containi ng alcohol do you have on a typical day when you are drinking? 3 or 4 05/24/2022 Q3: How often do you have si x or more drinks on one occasion? 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 on file Not on file documented as of this encounter Ordered Prescriptions Prescription Sig Dispense Quantity Refills Last Filled Start Date End Date sulfamethoxazole-t rimethoprim (BACTRIM DS) 800-160 mg per tabletIndications: Urinary tract infection without hematuria, site unspecified Take 1 tablet by mouth 2 (two) times a day for 7 days 14 tablet 09/04/2022 09/11/2022 documented in this encounter Plan of Treatment Not on file documented as of this encounter Visit Diagnoses Diagnosis Urinary tract infection without hematuria, site unspecified- Primary documented in this encounter Care Teams Skull Splitter Relationship Specialty Start Date End Date Mick Flowers MD PCP - General 05/14/17 documented as of this encounter
--- OUTSIDE RECORDS SUMMARY | 2024-06-29 00:28 | XMS_ITS | Encounter Summary ---
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 Mailed paperwork to patient. ER ELECTRICAL documented in this encounter Plan of Treatment Not on file documented as of this encounter Visit Diagnoses Not on filedocumented in this encounter Care Teams Cardiac Technologist Relationship Specialty Start Date End Date Mick Flowers MD PCP - General 05/14/17 documented as of this encounter
--- OUTSIDE RECORDS SUMMARY | 2024-06-29 00:28 | XMS_ITS | Encounter Summary ---
Author Organization [facility] Address [address] [facility] [address] [place] [address] Phone Care Team Providers Care Construction Driver Name Role Phone Mick Flowers MD Primary Care Provider [phone] Encounter Details Date Type Department Care Team (Late st Contact Info) Description 05/10/2022 Telephone [facility] Multiple Sclerosis [address] [place] [address] Marcia Duran, RN Social History Tobacco Use Types Packs/Day Years Used Date Smoking Tobacco: Never Smokeless Tobacco: Never Alcohol Use Standard Drinks/Week Comments Yes 0 (1 standard drink = 0.6 oz pur e alcohol) SOCIAL AUDIT-C Answer Date Recorded Q1: How often do you have a drink containing alc ohol? 2-3 times a week 05/08/2022 Q2: How many drinks containi ng alcohol do you have on a typical day when you are drinking? 3 or 4 05/08/2022 Q3: How often do you have si x or more drinks on one occasion? 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 Contacted pt and verbalized and confirmed date for scan. Maycol ----- Message ----- From: Marcia Duran RN Sent: 05/09/2022 5:24 PM STEAMBOAT PILOT To: Maycol Marcano CMA, Maddie Gutierres Subject: RE: Schedule a dexa for him please - HIP and# Did you order this? It looks like a dexa scan was ordered but not the hip and spine? Let me know ifyou need help. marcia ----- Message ----- From: Maddie Gutierres Sent: 05/09/2022 3:38 PM STEAMBOAT PILOT To: Marcia Duran RN, Maycol Marcano CMA Subject: FW: Schedule a dexa for him please - HIP and# Can you guys help me set this up? Lety Perkins ----- Message ----- From: Cherry Minor MD Sent: 05/09/2022 11:22 AM STEAMBOAT PILOT To: Maddie Gutierres Subject: Schedule a dexa for him please - HIP and Spi# Thanks. I am worried about his bone density. Lety Carey MBOAT PILOT documented in this encounter Plan of Treatment Not on file documented as of this encounter Visit Diagnoses Not on filedocumented in this encounter Care Teams Construction Driver Relationship Specialty Start Date End Date Mick Flowers MD PCP - General 05/14/17 documented as of this encounter
--- OUTSIDE RECORDS SUMMARY | 2024-06-29 00:28 | XMS_ITS | Encounter Summary ---
Author Organization [facility] Address [address] [place] [address] Phone Care Team Providers Care Crayon Molding Machine Operator Name Role Phone Mick Flowers MD Primary Care Provider [phone] Reason for Visit * Reason Comments Health Maintenance * Diagnostic Imaging (Routine) - Closed Specialty Diagnoses / Procedures Referred By Christy elizabeth Referred To Contact Diagnoses Multiple sclerosis (HCC) Abnormality of gait and mobility Falls frequently Procedures Dexa Axial Skeleton Bone Density 1 or 2 Site Cherry Minor MD [address] [place] [address] Phone: tel: fax: [facility] (All Locations) Referral ID Status Reason Start Date Expiration Date Visits Re quested Visits Authorized [id number] Closed 11/14/2022 12/14/2023 1 1 Encounter Details Date Type Department Care Team (Latest Contact Info) Description 11/21/2022 11:10 AM CDT Clinical Support [facility] [address] [place] [address] Screening for osteoporosis (Primary Dx); Multiple sclerosis (HCC); Abnormality of gait and mobility; Falls frequently Social History Tobacco Use Types Packs/Day Years [...] on file 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 Gender Identity Not on file Sexual Orientation Not on file 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 on file Not on file documented as of this encounter Plan of Treatment Not on file documented as of this encounter Procedures Procedure Name Priority Date/Time Associated Diagnosis Comments DEXA AXIAL SKELETON BONE DENSITY 1 OR MORE SITES Schedule Routine, Read Routine (OP Routine) 11/22/2022 8:14 AM CDT Multiple sclerosis (HCC) Abnormality of gait and mobility Falls frequently documented in this encounter Results * Dexa Axial Skeleton Bone Density 1 or 2 Site (11/22/2022 8:14 AM CDT) Anatomical Region Laterality Modality Body N/A Radiographic Carla ging Narrative 11/22/2022 9:22 AM CDT Patient Name: Doc Emery Date of : 1965 Date of scan: 11/21/2022 Bone mineral density was performed on a [employer] Discovery Densitometer. ?? Based on machine cross-calibration and precision studies the least significant changes of this densitometer is 0.024 g/cm2 at the spine, 0.020 g/cm2 at the total proximal femur, and 0.014g/cm2 at the forearm. HISTORY: This is a 57 y.o. ?? male. He reports that he has never smoked. He has never used smokeless tobacco. . INDICATIONS: Screening for osteoporosis. FINDINGS: BONE MINERAL DENSITY OF THE LUMBAR SPINE Bone Mineral Density (BMD) of the lumbar spine was measured from L1-L4 and the average density was calculated to be 1.103 gm/cm2. This corresponds to a T-score (standard deviations from the mean of young adults) of 0.1. There is no previous study available for comparison. BONE MINERAL DENSITY OF THE PROXIMAL FEMUR Bone Mineral Density (BMD) of the left hip total was found to be 1.052 gm/cm2. This corresponds to a T-score standard deviations from the mean of young adults of 0.1. Femoral neck is 0.840 gm/cm2 with a T-score (standard deviations from the mean of young adults) of -0.7. There is no previous study available for comparison. SUMMARY: Bone mineral density is near the young adult normal mean with no increased risk for fracture. ADDITIONAL COMMENTS: Postmenopausal Women and Men Over 50: Diagnostic criteria: Osteoporosis: BMD at or below -2.5 T-score; Osteopenia (low bone mass): BMD between -1.0 and -2.5 T-score. If the patient has a history of a fragility fracture, a fracture that occurred with trauma equivalent to a fall from a standing position or less, then the diagnosis is osteoporosis regardless of bone density. The history and data sections of the bone mineral density scan were prepared by Cinda Valadez(R) CBDT ??who is accredited by the International Society of Clinical Densitometry. The overall patient assessment and scan interpretation were performed by Brendan Ha MD ??who is certified by the International Society of Clinical Densitometry. [id number] Cherry Minor MD IMG DXA PROCEDURES Final Result documented in this encounter Visit Diagnoses Diagnosis Screening for osteoporosis- Primary Special screening for osteoporosis Multiple sclerosis (HCC) Multiple sclerosis Abnormality of gait and mobility Falls frequently Personal history of fall documented in this encounter Care Teams Crayon Molding Machine Operator Relationship Specialty Start Date End Date Mick Flowers MD PCP - General 05/14/17 documented as of this encounter
--- OUTSIDE RECORDS SUMMARY | 2024-06-29 00:28 | XMS_ITS | Encounter Summary ---
Author Organization [facility] Address [address] [place] [address] Care Team Providers Care Tourist Escort Name Role Phone Mick Flowers MD Primary Care Provider [phone] Reason for Referral * Diagnostic Imaging (Routine) - Closed Specialty Diagnoses / Procedures Referred By Contac t Referred To Contact Radiology Diagnoses Lumbar facet joint pain Procedures IR Facet Block Lumbar Sacral First Level Bilateral Walter Slaughter MD [address] [address] Phone: tel: fax: [address] [phone] Referral ID Status Reason Start Date Expiration Date Visits Re quested Visits Authorized [id number] Closed 05/25/2022 06/24/2023 1 1 LE EBS CONSULTANT Reason for Visit * Diagnostic Imaging (Routine) - Closed Specialty Diagnoses / Procedures Referred By Contac t Referred To Contact Radiology Diagnoses Lumbar facet joint pain Procedures IR Facet Block Lumbar Sacral First Level Bilateral Walter Slaughter MD [address] [facility] [address] [place] [address] Phone: tel: fax: [address] [phone] Referral ID Status Reason Start Date Expiration Date Visits Re quested Visits Authorized [id number] Closed 05/25/2022 06/24/2023 1 1 Encounter Details Date Type Department Care Team (Latest Contact Info) Description 07/04/2022 12:53 PM ORACLE EBS CONSULTANT - 07/04/2022 11:59 PM ORACLE EBS CONSULTANT Hospital Encounter [facility] [address] [place], [place] [id number] Walter Slaughter MD [address] [facility] [address] [place] [address] Lumbar facet joint pain Discharge Disposition: Discharge to home or [...] on file Legal Sex Male 3:12 AM ORACLE EBS CONSULTANT Gender Identity Not on file Sexual Orientation Not on file 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 on file Not on file documented as of this encounter Last Filed Vital Signs Vital Sign Reading Time Taken Comments Blood Pressure 153/101 07/04/2022 2:15 PM ORACLE EBS CONSULTANT Pulse 72 07/04/2022 2:15 PM ORACLE EBS CONSULTANT Temperature - - Respiratory Rate 16 07/04/2022 2:15 PM ORACLE EBS CONSULTANT Oxygen Saturation 97% 07/04/2022 2:15 PM ORACLE EBS CONSULTANT Inhaled Oxygen Concentration - - Weight - - Height - - Body Mass Index - - documented in this encounter Discharge Instructions * Patient Instructions* Walter Slaughter MD - 07/04/2022 1:40 PM ORACLE EBS CONSULTANT Post Procedure Instructions You received a facet joint corticosteroid injection to your lumbar spine on both sides Your injection included: Lidocaine (numbing medicine). The [...] those with type I diabetes. Check fasting (manager golf prior to first meal of the day) [...] concerns after hours, call our exchange at [phone]. For all other questions regarding the procedure, please call our office at [phone]. Pain Diary Please fill out the pain diary chart below and call or message via [employer] the medical provider whorequested the injection, Dr. [...] weeks after? 0% 20% 50% 80% 100% LE EBS CONSULTANT documented in this encounter Medications at Time of Discharge atorvastatin (LIPITOR) 40 mg tabletIndication s:hyperlipidemia Take 1 tablet (40 mg total) by mouth nightly 04/05/2022 famotidine (PEPCID) 20 mg tabletIndication s:Dyspepsia,Hear tburn [...] (25 mg total) by mouth every morning ALPRAZolam (XANAX) 0.25 mg tabletIndication s:anxiety Take 1 tablet (0.25 mg total) by mouth nightly as needed for sleep 1 06/27/2018 3 amitriptyline (ELAVIL) 25 mg tabletIndication s:abdominal pain Take 2 tablets (50 mg total) by mouth nightly 60 tablet 2 05/16/2022 4 EDEX 20 mcg injection 20 mcg by intracavity route as needed for erectile dysfunction 06/11/2019 3 losartan (COZAAR) 100 mg tabletIndication s:hypertension Take 1 tablet (100 mg total) by mouth every morning 3 POTASSIUM CHLORIDE ER 20 mEq CR tabletIndication s:supplement Take 1 tablet (20 mEq total) by mouth every morning 5 04/23/2018 4 urea (CARMOL) 40 % creamIndications :Hyperkeratosis Apply 1 application topically every morning 08/05/2020 3 documented as of this encounter Discharge Disposition Disposition Code Departure Means Destination Discharge to home or self care documented in this encounter Progress Notes * Walter Slaughter MD - 07/04/2022 1:40 PM CST Bilateral L4-5 Facet Joint Injection [facility] Department of Orthopedic Surgery Division of Physical Medicine and Rehabilitation Patient name: Doc Emery Date of : 1965 Date of service: 07/04/2022 Doc Emery presents to the fluoroscopy suite for a fluoroscopically guided bilateral L4-5 facetjoint injection as part of conservative treatment for axial low back pain with lumbosacral facet arthropathy. After informed consent was obtained, the patient was positioned in the prone position on the fluoroscopy table. The L4-5 facet joint was identified under fluoroscopic guidance. The area wasprepped with chlorhexidine and draped in a sterile fashion. Using a 25 gauge 2 inch needle, 1-2 mL of 1% lidocaine was infused subcutaneously to anesthetize the region. Then, a 25 gauge 3.5 inch spinal needle was inserted into the facet joint under fluoroscopic guidance. Confirmation into the jointspace was obtained with infusion of 0.25 mL of Omnipaque contrast which showed outline of the facet joint. Then a combination of 0.5 mL of 1% lidocaine and 40 mg of 40 mg/mL triamcinalone was infused. The procedure was repeated on both the right and left side at the L4-5 level using the same technique. The patient tolerated the procedure without complications. [...] have been addressed. Fluoroscopic guidance used to bilateral L4-5 facet joint injection. Confirmation of needle placement into the bilateral L4-5 facet joint was obtained by injecting approximately 0.5 mL of Omnipaque contrast. There was no evidence of vascular uptake or subdural flow noted. I personally performed or was present for the entire procedure above. Walter Slaughter MD LE EBS CONSULTANT documented in this encounter Plan of Treatment Not on file documented as of this encounter Procedures Procedure Name Priority Date/Time Associated Diagnosis Comments IR FACET BLOCK LUMBAR SACRAL FIRST LEVEL BILATERAL Schedule Routine, Read Routine (OP Routine) 07/04/2022 2:02 PM ORACLE EBS CONSULTANT Lumbar facet joint pain documented in this encounter Results * IR Facet Block Lumbar Sacral First Level Bilateral (07/04/2022 2:02 PM ORACLE EBS CONSULTANT) Narrative [facility] - 07/04/2022 2:28 PM ORACLE EBS CONSULTANT The images from this study are not interpreted by Radiology. ??Please refer to the physician's procedure / OR operative note. us Walter Slaughter MD IMG IR PROCEDURES Final Re sult [facility] documented in this encounter Visit Diagnoses Diagnosis Lumbar facet joint pain documented in this encounter Administered Medications Inactive Administered Medications - up to 3 most recent administrations Medication Order MAR Action Action Date Dose Rate Site iohexoL (OMNIPAQUE) 300 mg iodine/mL injection solution As needed, Starting on Sun07/04/22 at 1426, Intra-Op Given 07/04/2022 2:26 PM ORACLE EBS CONSULTANT 1 mL lidocaine PF (XYLOCAINE) 10 mg/mL (1 %) preservative free injection As needed, Starting on Sun07/04/22 at 1426, Intra-Procedure (IR), Indications: Administration of Local AnesthesiaIndications:Admini stration of Local Anesthesia Given 07/04/2022 2:26 PM ORACLE EBS CONSULTANT 5 mL Other (Comment) triamcinolone (KENALOG) 40 mg/mL injection As needed, Starting on Sun07/04/22 at 1427, Intra-Op Given 07/04/2022 2:27 PM ORACLE EBS CONSULTANT 80 mg documented in this encounter Discontinued Medications Medication Sig Discontinue Reason Start Date End Da te predniSONE (DELTASONE) 10 mg tablet Take 3 twice daily for 4 days then take 2 twice daily for 3 days, then take 1 twice daily for 3 days. Therapy completed 05/22/2022 07/04/2022 documented as of this encounter Care Teams Tourist Escort Relationship Specialty Start Date End Date Mick Flowers MD PCP - General 05/14/17 documented as of this encounter
--- OUTSIDE RECORDS SUMMARY | 2024-06-29 00:28 | XMS_ITS | Encounter Summary ---
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
--- OUTSIDE RECORDS SUMMARY | 2024-06-29 00:28 | XMS_ITS | Encounter Summary ---
Author Organization [facility] Address [address] [place] [address] Phone Care Team Providers Care Site Administrator Name Role Phone Mick Flowers MD Primary Care Provider [phone] Reason for Referral * MRI/CAT/PET Scan (Routine) - Closed Specialty Diagnoses / Procedures Referred By Contac t Referred To Contact Radiology Diagnoses Mechanical low back pain Posterior pain of hip, right Procedures MRI Lumbar Spine WO Contrast Walter Rojas MD [address] [facility] [address] [place] [address] Phone: tel: fax: [address] [phone] Referral ID Status Reason Start Date Expiration Date Visits Re quested Visits Authorized [id number] Closed 09/12/2022 10/12/2023 1 1 Reason for Visit * Reason Comments Pain Pain Encounter Details Date Type Department Care Team (Late st Contact Info) Description 09/12/2022 8:45 AM CDT Office Visit [facility] Orthopaedic Surgery [address] [facility] 2[address] [place] [address] Walter Rojas MD [address] [facility] [address] [place] [address] Mechanical low back pain (Primary Dx); Posterior pain of hip, right; Lumbar spondylosis; Altered gait Social History Tobacco Use Types Packs/Day Years [...] on file 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 I recommend: Lumbar spine MRI. Pending review of MRI, we discussed repeating injection, consider transforaminal epidural approach. We discussed the potential role for additional physical therapy. We discussed considering a lift orthosis on the right. documented in this encounter Progress Notes * Walter Rojas MD - 09/12/2022 8:45 AM CDT ESTABLISHED PATIENT VISIT INTERIM HISTORY: Doc Emery is a 56 y.o. male who presents to the office today for follow-up. Primary concern isright posterolateral hip pain as well as right-sided low back pain. Most recent L4/L5 facet injections have been helpful in the left. Pain does not otherwise refer or radiate. He has chronically altered stance and gait mechanics due to multiple sclerosis. Past medical history and review of systems are otherwise without significant change from previous visit. PHYSICAL EXAM: On examination today, the patient is alert and appropriate, and in no apparent distress. He transfers pob-xj-gsagd independently. He ambulates with decreased swing and stance excursion, fluid in the on the right. Lumbar range of motion is provocative of pain minimally with flexion and extension. Supine hip ranges of motion do not provoke pain. There is no significant tenderness to palpation over the right sacral sulcus, back pain symptoms of chief complaint localize to the right L4-L5 paraspinal region (without local tenderness). Dural tension signs are absent. There is mild right posterior greater trochanter tenderness to palpation. REVIEW OF X-RAYS/STUDIES: Lumbar spine x-rays completed October 2021 are reviewed: Mild rotatory scoliosis, mild secondary pelvicobliquity, lower lumbar degenerative changes. IMPRESSION/DIAGNOSIS: Chronic/persistent mechanical low back/posterolateral hip pain. Historically he has responded very well to L4/L5 facet injections which have been less effective most recently 2 months ago. Altered stance/postural control and gait mechanics related to multiple sclerosis. Current symptoms may be in part radicular/nerve root related. TREATMENT PLAN: We discussed things in detail today. I recommend: Lumbar spine MRI. Pending review of MRI, we discussed repeating injection, consider transforaminal epidural approach. We discussed the potential role for additional physical therapy. We discussed considering a lift orthosis on the right. The rational for all recommendations, as well as relevant risks, are discussed with the patient in detail. The patient expresses understanding, comfort and agreement with the plan, all questions are answered. No orders of the defined types were placed in this encounter. This note was dictated using NGRAIN software. This note was not read in detail; therefore, variances and inaccuracies may occur. Walter Dockery MD Professor Physical Medicine and Rehabilitation [facility] documented in this encounter Plan of Treatment Not on file documented as of this encounter Results * MRI Lumbar Spine WO Contrast (11/23/2022 3:44 PM CDT) Anatomical Region Laterality Modality Spine N/A Magnetic Resonan ce 11/23/2022 4:45 PM CDT Narrative 11/23/2022 4:57 PM CDT EXAM DESCRIPTION: ?? MRI LUMBAR SPINE WO CONTRAST REASON FOR STUDY: Patient reports lower back pain x 3 years with cortisone injections x 3 years. No known injury. ??Hx MS x 30 years. ?? TECHNIQUE: ??Sagittal and Axial imaging includes T1, T2, STIR sequences. ? COMPARISON: ?? Lumbar spine MRI 09/09/2019 ??and lumbar radiographs 11/03/2021 FINDINGS: SEGMENTATION: ?? In keeping with the numbering nomenclature on the 09/09/2019 lumbar spine MRI, the lowest well-developed disc space is labeled L5-S1. ALIGNMENT: ?? Levocurvature centered at L3 seen on prior lumbar radiographs. ?? Trace retrolisthesis of L5 on L1. ??Otherwise normal AP lumbar alignment. VERTEBRAE: ?? Vertebral body heights are normal. ??Modic endplate degenerative changes at L5-S1. ??Marrow signal is otherwise within normal limits. DISC HEIGHT: ?? Moderate disc height loss and desiccation at L5-S1. ??Mild disc height loss at L4-L5. HARDWARE: ?? None in the spine. CORD/CAUDA: ?? Normal in size and signal intensity. ??Conus medullaris terminates at the L1-L2 level. LOWER THORACIC: ?? Incompletely imaged. No stenosis seen. INDIVIDUAL DISC LEVELS: L1-2: ?? No significant disc bulge. No significant spinal canal or neural foraminal stenosis. L2-3: ?? No significant disc bulge. No significant spinal canal or neural foraminal stenosis. L3-4: ?? No significant disc bulge. No significant spinal canal or neural foraminal stenosis. L4-5: ?? Minimal annular disc bulge asymmetric to the left. ??Fkvw-py-ossljupn facet arthropathy and ligamentum flavum hypertrophy, left greater than right. ?? No significant spinal canal or neural foraminal stenosis. L5-S1: ?? Diffuse disc bulge with ??small central disc protrusion and annular fissure. ??Mild facet arthropathy. ??No significant spinal canal stenosis. ??No significant left and ctpl-ct-xbhscaoi right neural foraminal stenosis with disc annulus slightly contacting the inferior margin of the exiting right L5 nerve root. ??Small area of edema in the right paraspinal soft tissues adjacent to the right facet. SACRUM: ?? Visualized upper sacrum intact. VISUALIZED UPPER ABDOMEN: ?? No significant abnormality. OTHER: ?? No other significant findings. IMPRESSION: Mild lumbar degenerative changes most advanced at L5-S1 with ksku-yv-bdsjezhy right neural foraminal stenosis. No significant spinal canal or neural foraminal stenosis. ?? No significant degenerative progression compared to 09/09/2019. THIS IS AN ELECTRONICALLY VERIFIED FINAL REPORT 11/23/2022 4:57 PM - Electronically signed by ??Sunil Gamble M.D. AG: EDWIN D: ??11/23/2022 4:57 PM T: ??11/23/2022 4:57 PM Report ID: [id number] Reading Location: ??[id number] Procedure Note Sunil Gamble MD - 11/23/2022 EXAM DESCRIPTION: MRI LUMBAR SPINE WO CONTRAST REASON FOR STUDY: Patient reports lower back pain x 3 years with cortisone injections x 3 years. No known injury. Hx MS x 30 years. TECHNIQUE: Sagittal and Axial imaging includes T1, T2, STIR sequences. COMPARISON: Lumbar spine MRI 09/09/2019 and lumbar iczjzysrofw42/12/2022 FINDINGS: SEGMENTATION: In keeping with the numbering nomenclature onthe 09/09/2019 lumbar spine MRI, the lowest well-developed disc space islabeled L5-S1. ALIGNMENT: Levocurvature centered at L3 seen on prior lumbarradiographs. Trace retrolisthesis of L5 on L1. Otherwise normal AP lumbar alignment. VERTEBRAE: Vertebral body heights are normal. Modic endplatedegenerative changes at L5-S1. Marrow signal is otherwise within normal limits. DISC HEIGHT: Moderate disc height loss and desiccation at L5-S1. Milddisc height loss at L4-L5. HARDWARE: None in the spine. CORD/CAUDA: Normal in size and signal intensity. Conus medullaris terminates at the L1-L2 level. LOWER THORACIC: Incompletely imaged. No stenosis seen. INDIVIDUAL DISC LEVELS: L1-2: No significant disc bulge. No significant spinal canal or neural foraminal stenosis. L2-3: No significant disc bulge. No significant spinal canal or neural foraminal stenosis. L3-4: No significant disc bulge. No significant spinal canal or neural foraminal stenosis. L4-5: Minimal annular disc bulge asymmetric to the left.Trog-sp-haxrlgdk facet arthropathy and ligamentum flavum hypertrophy, left greater thanright. No significant spinal canal or neural foraminal stenosis. L5-S1: Diffuse disc bulge with small central disc protrusion andannular fissure. Mild facet arthropathy. No significant spinal canal stenosis.No significant left and hijg-ug-fwtgvnnd right neural foraminal stenosis with disc annulus slightly contacting the inferior margin of the exiting rightL5 nerve root. Small area of edema in the right paraspinal soft tissuesadjacent to the right facet. SACRUM: Visualized upper sacrum intact. VISUALIZED UPPER ABDOMEN: No significant abnormality. OTHER: No other significant findings. IMPRESSION: Mild lumbar degenerative changes most advanced at L5-S1 dibpqiun-ff-qspbqbqm right neural foraminal stenosis. No significant spinal canal or neural foraminal stenosis. No significant degenerative progression compared to 09/09/2019. THIS IS AN ELECTRONICALLY VERIFIED FINAL REPORT 11/23/2022 4:57 PM - Electronically signed by Sunil Gamble M.D. AG: AG Report ID: [id number] Reading Location: [place] [address] Walter Rojas MD IMG MRI PROCEDURES Final R esult documented in this encounter Visit Diagnoses Diagnosis Mechanical low back pain- Primary Lumbago Posterior pain of hip, right Lumbar spondylosis Lumbosacral spondylosis without myelopathy Altered gait Abnormality of gait Mechanical low back pain Lumbago Posterior pain of hip, right documented in this encounter Discontinued Medications Medication Sig Discontinue Reason Start Date End Da te ALPRAZolam (XANAX) 0.25 mg tabletIndications:anxiet y Take 1 tablet (0.25 mg total) by mouth nightly as needed for sleep Alternate therapy 06/27/2018 09/12/2022 documented as of this encounter Historical Medications * This list may reflect changes made after this encounter. ALPRAZolam (XANAX) 0.25 mg tabletIndications :sleep Take 3 tablets (0.75 mg total) by mouth nightly as needed for sleep 08/26/2022 BD Insulin Syringe Ultra-Fine 0.5 mL 30 gauge x 1/2 syringe 08/30/2022 valsartan (DIOVAN) 320 mg tabletIndications :hypertension Take 1 tablet (320 mg total) by mouth nightly 07/19/2022 added in this encounter Care Teams Site Administrator Relationship Specialty Start Date End Date Mick Flowers MD PCP - General 05/14/17 documented as of this encounter
--- OUTSIDE RECORDS SUMMARY | 2024-06-29 00:28 | XMS_ITS | Encounter Summary ---
Author Organization [facility] Address [address] [place] [address] Phone Care Team Providers Care Tiler'S Assistant Name Role Phone Mick Flowers MD Primary Care Provider [phone] Reason for Referral * Diagnostic Imaging (Routine) - Closed Specialty Diagnoses / Procedures Referred By Contac t Referred To Contact Radiology Diagnoses Lumbar facet joint pain Procedures IR Facet Block Lumbar Sacral First Level Bilateral Walter Rojas MD [address] [facility] [address] [place] [address] Phone: tel: fax: [address] [address] Referral ID Status Reason Start Date Expiration Date Visits Re quested Visits Authorized [id number] Closed 05/25/2022 06/24/2023 1 1 POSTER Encounter Details Date Type Department Care Team (Late st Contact Info) Description 05/25/2022 Orders Only [facility] Orthopaedic Surgery [address] [place] [address] Medical Office Building [address] [place] [address] Walter Rojas MD [address] [facility] [address] [place] [address] Lumbar facet joint pain (Primary Dx) Social History Tobacco Use Types [...] on file Legal Sex Male 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 ??Please refer to the physician's procedure / OR operative note. us Walter Rojas MD IMG IR PROCEDURES Final Re sult [facility] documented in this encounter Visit Diagnoses Diagnosis Lumbar facet joint pain- Primary Lumbar facet joint pain documented in this encounter Care Teams Tiler'S Assistant Relationship Specialty Start Date End Date Mick Flowers MD PCP - General 05/14/17 documented as of this encounter
--- OUTSIDE RECORDS SUMMARY | 2024-06-29 00:28 | XMS_ITS | Encounter Summary ---
Author Organization [facility] Address [address] [place] [address] Phone Care Team Providers Care Novelty Worker Name Role Phone Mick Flowers MD Primary Care Provider [phone] Reason for Referral * Diagnostic Imaging (Routine) - Closed Specialty Diagnoses / Procedures Referred By Christy elizabeth Referred To Contact Diagnoses Multiple sclerosis (HCC) Abnormality of gait and mobility Falls frequently Procedures Dexa Axial Skeleton Bone Density 1 or 2 Site Cherry Minor MD [address] [place] [address] Phone: tel: fax: [facility] (All Locations) Referral ID Status Reason Start Date Expiration Date Visits Re quested Visits Authorized [id number] Closed 11/14/2022 12/14/2023 1 1 Reason for Visit * Consultation (Routine) - Closed Specialty Diagnoses / Procedures Referred By Christy elizabeth Referred To Contact Neurology Diagnoses Multiple sclerosis (HCC) Mick Flowers MD [address] [place] [address] Phone: tel: fax: [facility] (All Locations) Referral ID Status Reason Start Date Expiration Date V isits Requested Visits Authorized [id number] Closed Specialty Services Required 05/25/2022 06/24/2023 1 1 Encounter Details Date Type Department Care Team (Late st Contact Info) Description 11/14/2022 11:15 AM CDT Office Visit [facility] Sclerosis [address] [place] [address] Cherry Mionr MD [facility] [address] [facility] [address] [place] [address] Multiple sclerosis (HCC) (Primary Dx); Abnormality of gait and mobility; Abnormal MRI; Medication management; Falls frequently Social History Tobacco Use Types [...] on file Legal 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 Gender Identity Not on file Sexual Orientation Not on file 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 Emery, It was nice to see you. Your exam today shows, as you know, a weak right leg. You cannot hop on that leg. Your iliopsoas, hamstrings and more distal leg are weak, and weaker than an exam I did 4 years ago in Spring 2018. Your vibration is slightly reduced in your right toes, but this is old. I strongly recommend you consider a disease modifying therapy for Progressive MS. The two medications that may slow primary progressive MS are: Ocrevus (which is FDA approved for this) or Glatiramer Acetate (not FDA-approved, but in a study of primary progressive MS patients men who were given glatiramer acetate had slower progression, but women did not. It is therefore not FDA approved. The study was called ObserveIT. You may want to check with Dr. Lopez regarding checking blood testosterone level. I am not going to order MRIs now. 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 Stay up to date on all cancer screenings. Stay up to date on colonoscopy and skin checks. See you in 6 months. Sincerely, Cherry Minor MD documented in this encounter Progress Notes * Cherry Minor MD - 11/14/2022 11:15 AM CDT Time spent on 11/14/22 reviewing chart prior to visit: 7:57am am - 8: 15 (18min) Time spent during visit itself: 11:20am- 12:12pm ( 52min) Time spent on 11/14/22 after visit orders/charting etc: 12:12- 12: 19pm (6min) plus 1:22 - 1:27pm ( 5min) Total time on 11/14/22 by [facility] : 81 total minutes. Patient Name: MARITA EMERY Medical Record Number (MRN): [id number] Date of (): 1965 Encounter Date: 11/14/2022 Chief Complaint Marita Emery is a 57 y.o. male seen today for MS followup, medication and symptom management. Pt was last seen on 05/09/22 by me. Some portions of this note were copied forward from our previous note dated 05/09/22, confirmed today at this visit and revised as appropriate. 11/14/2022 . Pt is on no DMT Results: Last Labs: 08/23/22: An order by me from the Fall for DEXA was not ever done. HPI Interim: Right lower back, non-radiating pain, worsening over time. Will have a low back MRI done in about amonth. Hamstring on right is atrophied. Goes to gym. (3x /week). Strength in right leg is only about 50% of that in the left, it is just the hamstrings. He is not interested in PT for gait. Last MRI: 10-05-21: COMPARISON: 08/09/2007 (14 year prior) FINDINGS: BRAIN: On this MRI examination, there are approximately 10 of FLAIR/[id number] lesions. There are multiple foci of hyperintensity on FLAIR and T2-weighted images within the white matter compatible with demyelinating plaques of multiple sclerosis. This includes periventricular, callosal,cortical lesions. New Brain T2 Lesions: 4, T1 Hypointense Black Holes : 0 Enhancing Brain Lesions: 0 T2/FLAIR [place] of Disease: Mild, less than 10 typical [...] or the findings are due to differences intechnique. Enhancing Lesions: None. Other significant findings: Multilevel degenerative disc and joint disease, most pronounced at C6-C7, progressed compared to the prior examination. Electronically signed by: Mayra Turner M.D., Ph.D. HPI Interim: Patient is walking with a ski pole when out. He has tripped at work, and now not working. Has had BP problems, and lipid elevated. Not on simvastatin but on atorvastatin. He likes the bladder BOTOX but still self cathing. No UTIs. Still has bowel issues. Concerned about incontinence, but no issues in many months. [facility] saw him 12/14/2020 and wrote: Interim: I [...] to manage along with the bladder. Thanks, Mairta Emery [phone] Today 12-14-20 on this telemed visit, Mr [...] the clinical scores and MRI measurements of DOMINIQUE (Mr Emery) in the [facility] longitudinal study. This patient belongs to the [...] Neurological History: Mr. Emery is a former [place] worker in [employer] and has lived in [place], [place]. He is Rt handed. Mr Emery [...] LP (abnormal), MRI. Diagnosis made when in [place]. 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 MS [...] or fatigue. Not excessive. Bowel problems developed [id number], with intermittent diarrhea and stool incontinence. No [...] Outpatient Medications: ALPRAZolam (XANAX) 0.5 mg tablet, , Disp: , Rfl: amitriptyline (ELAVIL) 25 mg tablet, Take 2 tablets (50 mg total) by mouth nightly, Disp: 60 tablet, Rfl: 2 atorvastatin (LIPITOR) 40 mg tablet, Take 1 tablet (40 mg total) by mouth nightly, Disp: , Rfl: BD Insulin Syringe Ultra-Fine 0.5 mL 30 gauge x 1/2 syringe, , Disp: , Rfl: EDEX 20 mcg injection, 20 mcg by intracavity route as needed for erectile dysfunction, Disp: , Rfl: famotidine (PEPCID) 20 mg tablet, Take 1 tablet (20 mg total) by mouth as needed for indigestion, Disp: , Rfl: felodipine (PLENDIL) 5 mg 24 hr tablet, Take 1 tablet (5 mg total) by mouth 2 (two) times a day, Disp: , Rfl: hydroCHLOROthiazide (HYDRODIURIL) 25 mg tablet, Take 1 tablet (25 mg total) by mouth every morning,Disp: , Rfl: losartan (COZAAR) 100 mg tablet, Take 1 tablet (100 mg total) by mouth every morning, Disp: , Rfl: POTASSIUM CHLORIDE ER 20 mEq CR tablet, Take 1 tablet (20 mEq total) by mouth every morning, Disp: , Rfl: 5 urea (CARMOL) 40 % cream, Apply 1 application topically every morning, Disp: , Rfl: valsartan (DIOVAN) 320 mg tablet, , Disp: , Rfl: Patient Active Problem List [...] LEFT Bilateral 07/04/2022 SHOULDER ARTHROSCOPY Left unknown Family History Problem Relation Age of Onset Melanoma Mother Family history of malignant melanoma - (Added by TW Conv) Cancer Mother Alcohol abuse Father Cancer Father Hypertension Father Hypertension Other Family history of Hypertension; Anesthesia problems Neg Hx Patient reports NO family history of MS but has + FamHx of malignant melanoma (mother) Social History Tobacco Use Smoking status: Never Smokeless tobacco: Never Substance and Sexual Activity Drug use: Not Currently Types: Marijuana Sexual activity: Defer Alcohol Use: Heavy Drinker (05/24/2022) AUDIT-C Frequency of Alcohol Consumption: 2-3 times a week Average Number of Drinks: 3 or 4 Frequency of Binge Drinking: Never Vital Signs BP 134/91 (BP Location: Right arm, Patient Position: Sitting) Pulse 73 Ht 177.8 cm (5' 10 ) Wt 79.8 kg (176 lb) BMI 25.25 kg/m?? Review of Systems A 12 point review of systems has been performed by the patient and has been reviewed with me duringthis visit. Unless checked yes , all other systems negative except per here, chief complaint or HPI. See scanned sheet. Frequent falls and near falls. BP is an issue. Is on 3 different BP meds. Exam11/14/22 General: MARITA EMERY is a well-developed, well-nourished male in no acute distress. The mood is normal. There is no pedal edema. Neurologic Mental Status: He is awake, alert and oriented. Speech is fluent and he follows commandswithout difficulties. Cranial Nerves: 20/20-2 OS, 20/25 OD. No APD. Vision: No cranial nerve abnormalities apparent (though pt had OD optic neuritis in past). There [...] In UEs, tone is normal bilaterally. No drift of UEs. FFMs, intactbilat. 5/5 in Ues. LLE is 5/5 and normal tone. Has clear spastic catch right knee and hip right, and increased in right ankle and ?? left ankle. In the LEs, 4/5 in the right psoas, and 5/5 in the left psoas. Quadriceps RLE - 4/5 on right , and 55 on left. Hamstrings 4+/5 on right and 5/5 on the left. His right foot dorsiflexes slower than left, and is 4-/5 on right, 5/5 Right foot dorsiflexion 4/5 and big toe dorsiflexion are now 4/5. Toe curling is 5/5 left, 4+/5 right. 5/5 plantar on LLE, and 4+/5 plantar flexion RLE. There [...] to nose is normal RUE, and LUE. Ngef-uqmz-[id number] is normal bilat.Rhythmic toe tapping - normal left, abnormally slow RLE. Toe tapping slower RLE. Ambulation: The patient is able to walk without assist, but Gait is R HP with spasticity. Hops 0 times on right foot. Hops 10 times on left foot. He can do tandem multiple steps. Reflexes: Reflexes in UEs are 3+ and symmetrical throughout. Bilat Calderon's. DTRs: Asymmetry in the knees and at the ankles, where has more clonus on right and at knee. 3++ DTRright knee. with unequivocal right toes upgoing Left knee is 3+, but less than Rt. Right ankle - 3+, left 1-2+, with reinforcment. . Neurologic Exam 10-08-2018 (most recent F2F exam done by [facility]); Walk Aid: none General: MARITA EMERY [...] 5/5. LLE is 5/5 throughout. Toe flexion and toe extension is 5/5 bilat. There is no postural tremor. Sensation: There is no Lhermitte's. Vibratory sensation in the right great toe is mildly decreased.Vibratory sensation in the left great toe is mildly decreased. Romberg is negative. Coordination: Finger to nose is normal. Rapid alternating movements are normal. Xquj-glep-onfd is normal. Rhythmic toe tapping - normal. Ambulation: The patient is able to walk on his heels. The patient is able to walk on his toes. Tandem gait is normal; 10 steps. Hops 10x RLE, but less easily than LLE Hops 10 times on left foot. Reflexes: Reflexes in UEs are hyper throughout. Today, asymmetry at knees and at the ankles, where has 4+ (Clonus) in right ankle, 3+ in left. In K[place], 3++ at knees bilaterally with unequivocal right UPgoing toes, left mute. OCT - mild temporal thinning OD - on prior visits Not done today. MS Paths Results Flowsheet Row Office Visit from 09/13/2021 in [facility] Multiple Sclerosis with Cherry Minor MD MSPT 25FTW (Avg Time in Seconds) 6.45 seconds 25FTW Z-Score -- SDMT 44 SDMT Z-Score -- Handedness right 9HPT Left Avg (in seconds) 22 seconds 9HPT Right Avg (in seconds) 22 seconds 9HPT Dominant Z-Score -- 9HPT Non-Dom Z-Score -- 2.5% Vision -- 100% Vision -- PDDS early_cane Relapses since last visit 2 PHYSICAL Mobility QOL 34 Fine Motor and ADL QOL 57 Fatigue QOL 44 Sleep QOL 49 MENTAL Mental QOL 51 Depression QOL 34 Anxiety QOL 38 Emotional Dyscontrol QOL -- Stigma QOL 44 Positive Affect/Well-being QOL -- SOCIAL Social Participation QOL 36 Social Satisfaction QOL 44 Employment Status disabled Assessment/Plan Diagnosis Plan 1. Multiple sclerosis (HCC) Ambulatory referral to Neurology Dexa Axial Skeleton Bone Density 1 or 2 Site 2. Abnormality of gait and mobility Dexa Axial Skeleton Bone Density 1 or 2 Site 3. Abnormal MRI 4. Medication management 5. Falls frequently Dexa Axial Skeleton Bone Density 1 or 2 Site Assessment PPMS On no DMT. Exam and MRI suggest progression. I think patient should strongly consider DMT at this point. He is risk averse. He could try glatiramer, given that in the PROMiSE trial men on GA with PPMS hadslower progression. I told him that Ocrevus probably superior, however, but no Ydsw-xu-vtka in PPMS men has been done. He should do MS PATHS again at next visit to our [facility]. Dex ordered again. ED is getting worse. Might need testosterone blood test. Plan See above under assessment, and below under Pt Instructions for plan Patient Instructions Dear Mr. Emery, It was nice to see you. Your exam today shows, as you know, a weak right leg. You cannot hop on that leg. Your iliopsoas, hamstrings and more distal leg are weak, and weaker than an exam I did 4 years ago in Spring 2018. Your vibration is slightly reduced in your right toes, but this is old. I strongly recommend you consider a disease modifying therapy for Progressive MS. The two medications that may slow primary progressive MS are: Ocrevus (which is FDA approved for this) or Glatiramer Acetate (not FDA-approved, but in a study of primary progressive MS patients men who were given glatiramer acetate had slower progression, but women did not. It is therefore not FDA approved. The study was called PROMiS. You may want to check with Dr. Lopez regarding checking blood testosterone level. I am not going to order MRIs now. 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 Stay up to date on all cancer screenings. Stay up to date on colonoscopy and skin checks. See you in 6 months. Sincerely, Cherry Minor MD >50% of the time was spent counseling and/or coordinating care as per above note. Discussion and decision making was of high-complexity due to the patient's high risk condition, multiple co-morbidities, neuropsychological co-morbidities, cognitive problems, and/or multiple sites of involved disability. The recommended medications are potentially of high risk consequence in theirside effects. Cherry Minor MD Professor of Neurology [facility] Department of Neurology [facility] ; documented in this encounter Plan of Treatment Not on file documented as of this encounter Results * Dexa Axial Skeleton Bone Density 1 or 2 Site (11/22/2022 8:14 AM CDT) Anatomical Region Laterality Modality Body N/A Radiographic Carla ging Narrative 11/22/2022 9:22 AM CDT Patient Name: Marita Emery Date of : 1965 Date of scan: 11/21/2022 Bone mineral density was performed on a HoloCompute Discovery Densitometer. ?? Based on machine cross-calibration [...] mineral density scan were prepared by Cinda Valadez(David) JOHNNIE ??who is accredited by the International Society of Clinical Densitometry. The overall patient assessment and scan interpretation were performed by Brendan Ha MD ??who is certified by the International Society of Clinical Densitometry. [id number] Cherry Minor MD IMG DXA PROCEDURES Final Result documented in this encounter Visit Diagnoses Diagnosis Multiple sclerosis (HCC)- Primary Multiple sclerosis Abnormality of gait and mobility Abnormal MRI Other nonspecific (abnormal) findings on radiological and other examinations of body structure Medication management Falls frequently Personal history of fall Screening for osteoporosis- Primary Special screening for osteoporosis Multiple sclerosis (HCC) Multiple sclerosis Abnormality of gait and mobility Falls frequently Personal history of fall documented in this encounter Orders Outpatient Referral Count Last Ordered Date Fir st Ordered Date AMB REFERRAL TO NEUROLOGY 11/14/2022 documented in this encounter Care Teams Novelty Worker Relationship Specialty Start Date End Date Mick Flowers MD PCP - General 05/14/17 documented as of this encounter
--- OUTSIDE RECORDS SUMMARY | 2024-06-29 00:28 | XMS_ITS | Encounter Summary ---
Author Organization [facility] Healthcare Address [address] [place] [address] Care Team Providers Care Manager Trainee Name Role Phone Mick Flowers MD Primary Care Provider [phone] Reason for Visit * Auth/Cert Specialty Diagnoses / Procedures Referred By Contac t Referred To Contact Diagnoses Neurogenic bladder Urge urinary incontinence Neurogenic bladder [N31.9] Urge urinary incontinence [N39.41] Procedures NV CYSTOURETHROSCOPY INJ CHEMODENERVATION BLADDER NV CYSTOURETHROSCOPY INJECTION BOTOX 300 UNITS CYSTOSCOPY Referral ID Status Reason Start Date Expiration Date Visits Re quested Visits Authorized [id number] 1 1 Encounter Details Date Type Department Care Team (Late st Contact Info) Description 05/24/2022 8:25 AM MANAGER PLANT - 05/24/2022 1:13 PM MANAGER PLANT Hospital Encounter [facility] Operating Room [address] [place] [address] Marquis Lopez MD [address] [facility] [address] [place] [address] Discharge Disposition: Discharge to home or self [...] on file Legal Sex Male 3:12 AM MANAGER PLANT Gender Identity Not on file Sexual Orientation Not on file 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 on file Not on file documented as of this encounter Last Filed Vital Signs Vital Sign Reading Time Taken Comments Blood Pressure 126/71 05/24/2022 12:05 PM MANAGER PLANT Pulse 70 05/24/2022 12:05 PM MANAGER PLANT Temperature 35 ??C (95 ??F) 05/24/2022 12:05 PM MANAGER PLANT Respiratory Rate 16 05/24/2022 12:05 PM MANAGER PLANT Oxygen Saturation 100% 05/24/2022 12:05 PM MANAGER PLANT Inhaled Oxygen Concentration - - Weight 81.6 kg (180 lb) 05/08/2022 1:40 PM MANAGER PLANT Height 177.8 cm (5' 10 ) 05/08/2022 1:40 PM MANAGER PLANT Body Mass Index 25.83 05/08/2022 1:40 PM MANAGER PLANT documented in this encounter Discharge Instructions * Discharge Instructions* Terri Mike, LILIA - 05/24/2022 11:32 AM MANAGER PLANT DISCHARGE INSTRUCTIONS Call your doctor if: * You have a fever higher than 101.5 F (38.6 C). * You have nausea, vomiting or diarrhea. * Your pain medicine is not helping your pain. * You feel dizzy, very tired or like you may faint. (It is normal to feel somewhat tired for 1-2 weeks after surgery.) * You have large blood clots in your urine. Call your surgeon???s office during regular business hours if you have questions or concerns. If you need to speak to someone after regular hours or on weekends or holidays, call . Diet: You may resume your usual home diet. Activity: * Remember heavy strenuous lifting may cause some blood in your urine, this should stop within 24 hours. Call if you see clots in your urine or are unable to urinate * Do NOT drive or operate machinery if you are taking narcotic pain medicine. * You may take showers. * Take short frequent walks every day. Climbing stairs is OK. Special Instructions: Smoking increases wound healing time. Please refrain, or at least, reduce smoking for 4 weeks. If you would like a prescription for a nicotine patch, please contact your care provider who will be happy to help. Pain Control You should expect to have some pain after your procedure. This is a normal part of the recovery process. The pain is more tolerable for some patients and less tolerable for others. When you are in pain: - Start by applying ice packs or heating pads and using over the counter medications such as acetaminophen (Tylenol) or ibuprofen (Advil or Motrin) unless otherwise specified by your doctor. - If your pain is still uncontrolled, you may take a stronger, prescription medication that contains opioids. Take only as much of this medication as you need. - As you recover, your pain will decrease and you will need less pain medication. You should only take pain medication if you are in pain. - If you are no longer taking any of your opioid medication and have leftover pills, dispose of them by placing them in a plastic bag, adding dish soap, and throwing them in the trash. You have received anesthesia, therefore, for the next 24 hours and/or while taking narcotic pain medication; -Do NOT drive a vehicle -Do NOT drink alcohol -Do NOT make important personal or business decisions or sign legal documents. Examples of narcotic pain medication include Percocet, Oxycontin, Dufur, Hydrocodone, and Oxycodone. FAQs (frequently asked questions) [...] physical therapy, we are available to assist: [facility]: [facility] [phone] [place] [phone] [facility] [phone] How are some things that you can [...] given by your doctor or other health resident care manager. GER PLANT GER PLANT documented in this encounter Medications at Time [...] by mouth every morning 5 04/23/2018 4 predniSONE (DELTASONE) 10 mg tablet Take 3 twice daily for 4 days then take 2 twice daily for 3 days, then take 1 twice daily for 3 days. 42 tablet 05/22/2022 3 urea (CARMOL) 40 % creamIndications :Hyperkeratosis Apply 1 application topically every morning 08/05/2020 3 documented as of this encounter Discharge Disposition Disposition Code Departure Means Destination Discharge to home or self care documented in this encounter H&P Notes * Marquis Lopez MD - 05/24/2022 9:15 AM CST I have reviewed the H&P, examined the patient, and endorse the findings as written. Plan of Care : Based on the above findings, I consider Marita Borrero to be an acceptable risk for : [...] Normal affect and mood, oriented x 3. GER PLANT Source Note - Cherry Minor MD - 05/09/2022 11:00 AM MANAGER PLANT Time spent on 05/09/22 reviewing chart prior to visit: 3:25am - 3:40am (15min) Time spent during visit itself 11:10am - 1157am (47min) Time spent on 05/09/22 after visit orders/charting etc: 1255pm - 1257pm ( 2min) Total time on 05/09/22 by [facility]: 15 + 47 + 2 = 64 total by [facility] Patient Name: MARITA BORRERO Medical Record Number (MRN): [id number] Date of (): 1965 Encounter Date: 05/09/2022 Chief Complaint Marita Borrero is a 56 y.o. male seen today for MS followup, MS medication management & MS Symptom management. Pt was last seen on 09-13-21 by [facility]. Some portions of this note were copied forward from our previous note dated 09-13-21, confirmed today at this visit and revised as appropriate. 05/09/2022 . Pt is on no DMT. Patient is in MS PATHS, but did not have time today to participate in testing. Results: Last Labs: 11-09-21: OS: IgA - WNL. 10-10-21: CMP, CBC/d and CK all WNL. Last MRI: 10-05-21: COMPARISON: 08/09/2007 (14 year prior) FINDINGS: BRAIN: On this MRI examination, there are approximately 10 of FLAIR/E7kzsxillsskqy lesions. There are multiple foci of hyperintensity on FLAIR and T2-weighted images within the white matter compatible with demyelinating plaques of multiple sclerosis. This includes periventricular, callosal,cortical lesions. New Brain T2 Lesions: 4, T1 Hypointense Black Holes : 0 Enhancing Brain Lesions: 0 T2/FLAIR [place] of Disease: Mild, less than 10 typical [...] incontinence, but no issues in many months. [facility] saw him 12/14/2020 and wrote: Interim: [...] manage along with the bladder. Thanks, Marita Borrero [phone] Today 12-14-20 on this telemed visit, Mr Borrero reports - in past year, has had UGI and colonoscopy for GI pain. Has had intermittent diarrhea. Polyps removed. Has been taking pepcid and prilosec, alternating (told by GI not to take prilosec (omeprazole) continually). When has an abdominal attack, has to get to bathroom or will have incontinence. This happens aboutonce per week or so. This is when [...] scores and MRI measurements of DOMINIQUE (Mr Borrero) in the [facility] longitudinal study. This patient belongs to the [...] 21.05 13.30 22.28 17.26 Neurological History: Mr. Borrero is a former [place] worker in [employer] and has lived in [place] and [place], [place]. He is Rt handed. 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 He is on Ampyra 10 mg BID for gait; but no disease-modifying therapy. Has had MS since 1989 (age 24). First symptom was bladder related. Urgency and Frequency. No UTIs. No Family History of MS (3 children - adults). He reports that it took 6 months to figure out the diagnosis. Diagnosis: LP (abnormal), MRI. Diagnosis made when in [place]. 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 MS [...] or fatigue. Not excessive. Bowel problems developed [id number], with intermittent diarrhea and stool incontinence. No stool incontinence when having a normal BM. He had COVID-12 Jun 2020; it was a mild case and did well. Later, he was vaccinated with an mRNA vaccine. Added case to the [employer]OV[employer] Registry. No Known Allergies Current Outpatient Medications: ALPRAZolam (XANAX) 0.25 mg tablet, Take 1 tablet (0.25 mg total) by mouth nightly as needed for sleep, Disp: , Rfl: 1 amitriptyline (ELAVIL) 25 mg tablet, Take 2 tablets (50 mg total) by mouth nightly, Disp: 60 tablet, Rfl: 2 atorvastatin (LIPITOR) 40 mg tablet, Take 1 tablet (40 mg total) by mouth nightly, Disp: , Rfl: EDEX 20 mcg injection, [...] application topically every morning, Disp: , Rfl: Patient Active Problem List Diagnosis Neurogenic bladder disorder Abnormality of gait and mobility High risk medication use Hypercholesterolemia Primary insomnia Multiple sclerosis (CMS/HCC) (HCC) Penile discharge Urethral stricture Urinary tract infection OAB (overactive bladder) Bowel incontinence Cardiovascular risk factor Abnormal MRI Vitamin D deficiency Anxiety Erectile dysfunction Neurogenic bladder Urge urinary incontinence Past Medical History: Diagnosis Date Coronary artery disease Hyperlipidemia Hypertension Hypertension Multiple sclerosis (CMS/HCC) (HCC) Multiple Sclerosis Past Surgical History: Procedure Laterality Date COLONOSCOPY 2020 CYSTOSCOPY 2021 with botox injection; receives every 6 months FACET BLOCK LUMBAR SACRAL 1 LEVEL LEFT Left 09/12/2019 FACET BLOCK LUMBAR SACRAL 1 LEVEL LEFT Left 05/04/2020 FACET BLOCK LUMBAR SACRAL 1 LEVEL LEFT Bilateral 11/10/2021 SHOULDER ARTHROSCOPY Left unknown Family History Problem Relation Age of Onset Multiple sclerosis Other Family history of Multiple sclerosis; Hypertension Other Family history of Hypertension; Melanoma Mother Family history of malignant melanoma - (Added by TW Conv) Cancer Mother Alcohol abuse Father Cancer Father Hypertension Father Anesthesia problems Neg Hx Patient reports + family history of MS, but no other neurological diseases. Social History Tobacco Use Smoking status: Never Smokeless tobacco: Never Substance and Sexual Activity Drug use: Not Currently Types: Marijuana Sexual activity: Defer Alcohol Use: Heavy Drinker Frequency of Alcohol Consumption: 2-3 times a week Average Number of Drinks: 3 or 4 Frequency of Binge Drinking: Never Vital Signs BP (!) 145/102 (BP Location: Left arm, Patient Position: Sitting) Pulse 71 Temp 36.3 ??C (97.3 ??F) (Temporal) Ht 177.8 cm (5' 10 ) Wt 81.6 kg (180 lb) BMI 25.83 kg/m?? Review of Systems A 12 point review of systems has been performed by the patient and has been reviewed with me duringthis visit. Unless checked yes , all other systems negative except per here, chief complaint or HPI. See scanned sheet. Exam 05/09/22 (exam done by Dr Bateman with [facility] watching) He did not bring a walking aid. General: MARITA BORRERO is a well-developed, well-nourished male in no acute distress. The mood is normal. There is no pedal edema. Neurologic Mental Status: He is awake, alert and oriented. Speech is fluent and he follows commandswithout difficulties. Cranial Nerves: Vision: No cranial nerve abnormalities apparent (though pt had OD optic neuritis in past). 20/20 O.D. (more difficulty than left). 20/20 O.S. near card, no correction. (in past: Right temporal pallor OD) There is no red desaturation. No APD. Pupils are O.D./O.S.: 2/2 --> 1/. VFFTC. Extraocular movements are full. There is no nystagmus. NIURKA is not present. No adductor lag. Facial sensation is intact to light touch. The face is symmetric. There is no dysarthria. Shoulder shrug is equal. Tongue movements are normal. Motor Examination: No Lhermitte's In UEs, tone is normal bilaterally. No drift of UEs. FFMs, intactbilat. 5/5 in Ues. In LEs, tone is not normal. Has clear spastic catch right knee and hip right, and increased in right ankle and left ankle. Strength is 5/5 throughout UEs. In the LEs, we detect 4-/5 in the right psoas, and 4/5 in the left psoas.Quadriceps RLE - 4-/5 on right , and 4++/5 on left. Hamstrings 4++/5 on right and 5/5 on the left. as well. His right foot dorsiflexes slower than left, and is 4-/5 on right, 4+/5 Right foot dorsiflexion 4/5 and big toe dorsiflexion are now 4/5. Toe curling is 5/5 left, 4+/5 right. There is nopostural tremor. Sensation: There is no Lhermitte's. Vibratory sensation in the right great toe is mild-moderately decreased. Vibratory sensation in the left great toe is mild- moderately decreased. These seem worse than in 2019 exam. Vibration in the fingers are 7/8 on the left and 6/8 on the right. Temp is same inthe Ues, but bilat gets colder as moves up from palm. Pinprick: no gradient in the Ues. Romberg is negative. Intact proprioception in the right toes - and intact. left toes. Coordination: No UE rebound. Finger to nose is normal RUE, but fine intention tremor (consistently seen) LUE. Rapid alternating movements are normal in UEs. Zjlj-klao-cejy is normal bilat. Rhythmic toe tapping - normal left, abnormally slo RLE. Toe tapping slower RLE. Ambulation: The patient is able to walk on his heels, but not nearly as well with RLE. The patient is able to walk on his toes but not as well with RLE. Gait is R HP with spasticity. Hops 4-5 times on right foot (very unstable when he does hop and not far off ground. Hops 10 times on left foot. g. Cannot walk on tiptoes on his right, and heel walking hte right foot does not dorsifelx as much. Hisgait is narrow. He can do tandem multiple steps. Reflexes: Reflexes in UEs are 3+ and symmetrical throughout. Bilat Calderon's. DTRs: Asymmetry in the knees and at the ankles, where has more clonus on right and at knee. 4+ DTR right knee). with unequivocal right toes upgoing, but left is mute toes. Neurologic Exam 10-08-2018 (most recent F2F exam done by [facility]); Walk Aid: none General: MARITA BORRERO is a well-developed, well-nourished male in no [...] O.D./O.S.: 2/2 --> 1/1. Extraocular movements are full. There is no nystagmus. NIURKA is not present. Facial sensation is intact to light touch/temp. The face is symmetric. There is no [...] is normal. Rapid alternating movements are normal. Pzqo-nswj-asik is normal. Rhythmic toe tapping - normal. [...] temporal thinning OD - on prior visits Counseling and Education We discussed the pros/cons of using ocrelizumab or GA for PPMS in males with PPMS. Assessment/Plan Diagnosis Plan 1. Multiple sclerosis (CMS/HCC) ([facility]) Ambulatory referral to Neurology 2. Neurogenic bladder disorder 3. High risk medication use Assessment PPMS. Resistant to trying a DMT for PPMS. Consider for glatiramer acetate, based on the positive results in PROMiSE in the males only (vs placebo). Pt is unwilling to consider Ocrevus due to the ? Increase in cancer risk. Spasticity Neurogenic bladder. Plan See instructions below RTC 6 months/prn. Patient Instructions Dear Mr. Borrero: It was nice to see you today. Copaxone (glatiramer acetate) is the injectable drug that was used in the PROMiSE study many years ago (I think 2 decades ago!). It was an overall negative study. However, the males in the study of PPMS (what you have) did better (slower progression) than those on placebo. Please look it on Google and see what you think, about it. PLEASE let me know if you want me to try to get it for you. If you were to consider changing lipid medication, I would suggest simvastatin 80mg/day due to the Dontrell Lawler study in the [place] in progressive MS patient (called MS STAT Study) It was a small study, but positive. A larger study is underway to my knowledge. Please contact your primary doctor to refer you to a blood pressure centralized traffic control operator. I feel likeyou may need your medications to be revised. Check with your primary dr about doing Xrays of your hip. I have requested testing here for bone density - because unlikely that you have low bone density you could have it and it is treatable. Continue to get sufficient exercise. A few random notes from me: I am very glad that you are in MS PATHS- this is a good way to monitor some aspects of your exam (walking speed, used of hands, cognition and patient- reported scores) over time to help us make decisions for your care. If you are not registered in [employer] (a registry for people with MS), I strongly invite you to havea look at the website and consider joining this long-standing MS registry. The group of investigators who oversee this secure registry have learned quite a bit about MS patients and published numerous insightful studies deriving from this registry. I believe they are in need of new people to join. B eing involved in this basically means taking surveys twice yearly - so about 2 hrs of your time each year (note: I am asking you this at the request of those who run the registry). The website is: https://www.narcoms.org/ I encourage you to get all the appropriate COVID-19 boosters, as well as the FLU vaccine. I also urge you to continue to wear a well-fitting good quality mask when in crowds. Please stay up to date on all cancer screenings. These include colonoscopy, PSA and yearly skin survey by a barrel polisher inside. Keep in touch. Sincerely, Cherry Minor . >50% of the time was spent counseling and/or coordinating care as per above note. Resident Dr. Nik Majed in room entire time. Discussion and decision making was of high-complexity due to the patient's high risk condition, multiple co-morbidities, neuropsychological co-morbidities, cognitive problems, and/or multiple sites of involved disability. The recommended medications are potentially of high risk consequence in theirside effects. Cherry Minor MD Professor of Neurology [facility] Department of Neurology [facility] ; GER PLANT * Marquis Lopez MD - 05/24/2022 9:10 AM CST I have reviewed the H&P, examined the patient, and endorse the findings as written. Plan of Care : Based on the above findings, I consider Marita Borrero to be an acceptable risk for : [...] Normal affect and mood, oriented x 3. GER PLANT Source Note - Tika Wright NP - 05/09/2022 2:47 PM MANAGER PLANT Images from the original note were not included. [facility] for Preoperative Assessment and Planning Preoperative Evaluation Record Evaluation type/location: TPAP from [facility] Planned procedure site: [facility] OR Date: 05/09/22 NOTE: This note represents a preoperative evaluation initiated via telephone interview. NO PHYSICALEXAM was performed at the time of initial assessment. A physical exam may be added to this note anddocumented below. Anesthesia Evaluation Marita Borrero is a 56 y.o. male Procedure(s): INJECTION BOTOX 300 UNITS CYSTOSCOPY Pre-Op Diagnosis Codes: * Neurogenic bladder [N31.9] * Urge urinary incontinence [N39.41] HISTORY HPI Marita Borrero is a 56 y.o. male who is being evaluated prior to undergoing INJECTION BOTOX 300 UNITS INTO BLADDER CYSTOSCOPY for neurogenic bladder. Patient has neurogenic bladder secondary to multiple sclerosis and this procedure is performed periodically as symptoms warrant. Past Medical History Information obtained from: patient and chart. Neurological + Psychiatric history - anxiety + Neuromuscular disease (age 24 diagnosis; Followed by MS clinic - ongoing left leg weakness, visual changes, and neurogenic bladder) - multiple sclerosis. Pertinent negatives: seizures; CVA/stroke; TIA; CEA; ICA stenosis; dementia/mild cognitive impairment and carotid artery stent Cardiovascular + Hypertension Hypertension year diagnosed: 1999. + Hyperlipidemia (on statin) Pertinent negatives: [place] ; CABG ; systolic/diastolic dysfunction w/o CHF ; valvular heart disease; valve replacement; atrial fibrillation; arrhythmia; pacemaker/ICD; PVD; DVT/PE; negative for CHF; drug-eluting stent(s); bare metal stent(s); unknown stent(s) type and coronary angioplasty CAD: denies, noted in history items. Respiratory Pertinent negatives: COPD; asthma; sleep apnea (ROSALINDA); pulmonary hypertension; no O2 use outside thehospital and non-smoker Hepatic / Heme Pertinent negatives: liver disease and history of anemia Gastrointestinal + GERD - PRN medication use only. Symptoms < 1x/week. Pertinent negatives: hiatal hernia Renal / Pertinent negatives: renal disease and dialysis Musculoskeletal/Pain + Chronic pain (left L4-5 facet joint injection 08/2019 for midline low back pain with lumbosacral facet arthropathy) - back pain. Pertinent negatives: chronic opioid use; previous treatment for opioid use disorder; osteoarthritisand headaches Endocrine / Other + Infectious disease (h/o UTI, currently asymptomatic ) - UTI. + Eye disorder (unsure which eye is weaker due to MS) Pertinent negatives: diabetes mellitus; thyroid disease; obesity (BMI >30); cancer history; rheumatological disease; transplanted organ and pancreatitis Functional Capacity Functional capacity: 4-6 METs Comments: Weightlifting, walking, fishing, hiking - extremely active Able to climb more than 2 flights of stairs and walk greater than 4 level blocks without chest painor shortness of breath Review of Systems + muscle weakness (left leg weakness/drags 2/2 MS unchanged in the last year) + chronic pain (left L4-5 facet joint injection 08/2019 for midline low back pain with lumbosacral facet arthropathy) + vision loss (wears corrective lenses) Pertinent negatives: productive cough; wheezing; SOB; recent cold/flu; fever; chest pain; palpitations; orthopnea; pedal edema; PND; previous transfusion; melena/hematochezia; easy bruising; bleedingproblems; syncope and dizziness Comments: No covid exposures or symptoms. PAT Summary and Plans Cardiac risk classification of planned procedure: low cardiac risk. Preoperative assessment status: complete. Additional comments: Marita Borrero is a 56 y.o. male who is being evaluated prior to undergoing a low cardiac risk surgery. Revised Cardiac Risk Index factors are (none) for a total RCRI of 0 out of6. Functional capacity is 4-6 METs. NOTE: This note represents a preoperative evaluation initiated via telephone interview. NO PHYSICALEXAM was performed at the time of initial assessment. A physical exam may be added to this note anddocumented below. Obstructive sleep apnea (ROSALINDA) screening status is STOP-BANG incomplete but suspected to be 0-2 suggesting low risk for ROSALINDA. Neck circumference pending.. Blood bank needs for day of procedure: No type and screen needed Pending labs/tests include: None Patient instructions were provided via telephone and in writing sent via [email or web address]. Patient verbalized understanding of preoperative plan. Preoperative evaluation performed by Tika Wright NP on 05/09/22 at 2:57 PM . Patient Active Problem List Diagnosis ??? Neurogenic bladder disorder ??? Abnormality of gait and mobility ??? High risk medication use ??? Hypercholesterolemia ??? Primary insomnia ??? Multiple sclerosis (CMS/HCC) (HCC) ??? Penile discharge ??? Urethral stricture ??? Urinary tract infection ??? OAB (overactive bladder) ??? Bowel incontinence ??? Cardiovascular risk factor ??? Abnormal MRI ??? Vitamin D deficiency ??? Anxiety ??? Erectile dysfunction ??? Neurogenic bladder ??? Urge urinary incontinence Past Medical History: Diagnosis Date ??? Coronary artery disease ??? Hyperlipidemia ??? Hypertension Hypertension ??? Multiple sclerosis (CMS/HCC) (HCC) Multiple Sclerosis Past Surgical History: Procedure Laterality Date ??? COLONOSCOPY 2020 ??? CYSTOSCOPY 2021 with botox injection; receives every 6 months ??? FACET BLOCK LUMBAR SACRAL 1 LEVEL LEFT Left 09/12/2019 ??? FACET BLOCK LUMBAR SACRAL 1 LEVEL LEFT Left 05/04/2020 ??? FACET BLOCK LUMBAR SACRAL 1 LEVEL LEFT Bilateral 11/10/2021 ??? SHOULDER ARTHROSCOPY Left unknown No Known Allergies Med List Status: Nurse Complete Set By: Kanchan Casarez RN at 05/08/2022 1:38 PM Taking? Last Dose Start Date End Date Provider ALPRAZolam (XANAX) 0.25 mg tablet 05/07/2022 06/27/18 -- Bettie Batres MD amitriptyline (ELAVIL) 25 mg tablet 05/07/2022 02/24/22 -- Noam Leonard MD Take 2 tablets (50 mg total) by mouth nightly atorvastatin (LIPITOR) 40 mg tablet 05/07/2022 04/05/22 -- ProviderBettie MD EDEX 20 mcg injection Past Week 06/11/19 -- Bettie Batres MD famotidine (PEPCID) 20 mg tablet Past Week 10/06/21 -- Bettie Batres MD felodipine (PLENDIL) 5 mg 24 hr tablet 05/08/2022 07/19/07 -- Bettie Batres MD hydroCHLOROthiazide (HYDRODIURIL) 25 mg tablet 05/08/2022 -- -- Btetie Batres MD losartan (COZAAR) 100 mg tablet 05/08/2022 -- -- Bettie Batres MD POTASSIUM CHLORIDE ER 20 mEq CR tablet 05/08/2022 04/23/18 -- Bettie Batres MD urea (CARMOL) 40 % cream 05/08/2022 08/05/20 -- Bettie Batres MD No current facility-administered medications for this encounter. Current Outpatient Medications: ??? ALPRAZolam (XANAX) 0.25 mg tablet ??? amitriptyline (ELAVIL) 25 mg tablet ??? atorvastatin (LIPITOR) 40 mg tablet ??? EDEX 20 mcg injection ??? famotidine (PEPCID) 20 mg tablet ??? felodipine (PLENDIL) 5 mg 24 hr tablet ??? hydroCHLOROthiazide (HYDRODIURIL) 25 mg tablet ??? losartan (COZAAR) 100 mg tablet ??? POTASSIUM CHLORIDE ER 20 mEq CR tablet ??? urea (CARMOL) 40 % cream Social History Tobacco Use Smoking Status Never Smokeless Tobacco Never Alcohol Use: Heavy Drinker ??? Frequency of Alcohol Consumption: 2-3 times a week ??? Average Number of Drinks: 3 or 4 ??? Frequency of Binge Drinking: Never Substance and Sexual Activity Drug Use Not Currently ??? Types: Marijuana Family History Problem Relation Age of Onset ??? Multiple sclerosis Other Family history of Multiple sclerosis; ??? Hypertension Other Family history of Hypertension; ??? Melanoma Mother Family history of malignant melanoma - (Added by TW Conv) ??? Cancer Mother ??? Alcohol abuse Father ??? Cancer Father ??? Hypertension Father ??? Anesthesia problems Neg Hx There were no vitals filed for this visit. PT: No results found for requested labs within last 720 hours. INR: No results found for requested labs within last 720 hours. APTT: No results found for requested labs within last 720 hours. Hgb A1C: No results found for requested labs within last 720 hours. CBC RBC: No results found for requested labs within last 720 hours. RDW: No results found for requested labs within last 720 hours. MCHC: No results found for requested labs within last 720 hours. MCH: No results found for requested labs within last 720 hours. MCV: No results found for requested labs within last 720 hours. Hct: No results found for requested labs within last 720 hours. Hgb: No results found for requested labs within last 720 hours. WBC: No results found for requested labs within last 720 hours. MPV: No results found for requested labs within last 720 hours. Platelets: No results found for requested labs within last 720 hours. RDW CV: No results found for requested labs within last 720 hours. RDW Sd: No results found for requested labs within last 720 hours. BMP Glucose: No results found for requested labs within last 720 hours. Calcium: No results found for requested labs within last 720 hours. Sodium: No results found for requested labs within last 720 hours. Potassium: No results found for requested labs within last 720 hours. CO2: No results found for requested labs within last 720 hours. Chloride: No results found for requested labs within last 720 hours. BUN: No results found for requested labs within last 720 hours. Creatinine: No results found for requested labs within last 720 hours. Romain index score: 100 GER PLANT documented in this encounter Miscellaneous Notes * Perioperative Nursing Note - Debbie Maier RN - 05/24/2022 1:07 PM MANAGER PLANT Marita is fully conscious oriented. He was able to cath himself in his second trial. In his first trail of cathing himself blood was all over in the bathroom and Dr. Lopez was aware who only recommendedpressure of the meatus. Now there is no more blood dripping from his penis. Dr. Lopez was contacted who was ok for Marita to be discharged and that he can call him if anything came up. GER PLANT * Perioperative Nursing Note - Terri Mike RN - 05/24/2022 12:10 PM MANAGER PLANT Pt with bleeding from penis. Dr Lopez notified and states ok to cath self and dc home GER PLANT * Perioperative Nursing Note - Terri Mike RN - 05/24/2022 11:33 AM MANAGER PLANT NO SURGICAL WOUND TO VISUALIZE GER PLANT * Op Note - Marquis Lopez MD - 05/24/2022 11:15 AM CST Date of Surgery: 05/24/2022 Preoperative diagnosis: neurogenic bladder with detrusor overactivity and urgency urinary incontinence Post-operative diagnosis: neurogenic bladder with detrusor overactivity and urgency urinary incontinence Procedure: Cystoscopy, injection of 300 units of onabotulinumtoxinA (Botox) into the bladder Surgeon: Marquis Lopez MD Milled Lumber Grader: Papo Munguia MD Anesthesia: General Complications: None [...] rigid scope was advanced into the bladder. There is some mild meatal stenosis, however the cystoscope was able to go past it with gentle pressure without requiring formal dilation. The urethra and the bladder mucosa looks normal. Next we diluted with 300 units of Botox in 30 cc of injectable normal saline, and we injected the Botox into the into the detrusor and submucosal area of the bladder in 0.5-1 cc aliquots. Botox was injected into the posteriorbladder wall, the left and the right lateral [...] Marquis Lopez, was present throughout the surgery. GER PLANT * Brief Op Note - Marquis Lopez MD - 05/24/2022 11:15 AM CST Operative Progress Note Surgical Team: Surgeon(s) and Role: * Marquis Lopez MD - Primary * Laim Munguia MD - Resident - Assisting Anesthesiologist: Iam Bagley MD Diagnostics Tech: Momo Beasley RN Scrub: Russ Guidry ST DATE OF SURGERY : 05/24/2022 Preoperative Diagnosis: Pre-op Diagnosis * Neurogenic bladder [N31.9] * Urge urinary incontinence [N39.41] Postoperative Diagnosis: Post-op Diagnosis * Neurogenic bladder [N31.9] * Urge urinary incontinence [N39.41] Procedure(s): Procedure(s) (LRB): INJECTION BOTOX 300 UNITS (N/A) CYSTOSCOPY (N/A) Operative Findings: Normal bladder Estimated Blood Loss: No blood loss documented. Some meatal stenosis. Intraoperative Fluids: See Anesthesia record for mls Specimens: No specimen collected in procedure Implants: Nothing was implanted during the procedure Blood/Blood Products Transfused: 0 mls Complications: None Condition on Discharge from the operating room was stable Marquis Lopez MD Date: 05/24/2022 Time: 11:28 AM TEACHING ATTESTATION : I was present and directly participated in the entire procedure (including opening and closing). GER PLANT * Pre-Procedure Instructions - Tika Wright NP - 05/09/2022 2:51 PM CST [facility] Planning [facility] Clinic Location: [facility] The night before your surgery: * Do not eat anything after midnight the night before your procedure. and * Do not smoke or use tobacco products after midnight the night before surgery. It is best to stop smoking now to improve your health. The morning of your surgery: * You [...] with you on the day of surgery. * If you use home oxygen, bring your portable oxygen tank with you on the day of surgery * If you are going to be admitted after surgery at [facility], COVID testing may be performed on the day of surgery, even if you are up to date on your COVID-19 vaccine. * If having surgery at [facility], you may want to bring a credit card if you want to use our Mobile Pharmacy for your discharge medications. Mobile pharmacy is not available at [facility], [facility], or the [facility]. Outpatient Surgery: * You must have a [...] needed amitriptyline (ELAVIL) 25 mg tablet Take on day of surgery if needed atorvastatin (LIPITOR) 40 mg tablet Take morning of surgery EDEX 20 mcg injection Don't take on day of surgery famotidine (PEPCID) 20 mg tablet Take morning of surgery felodipine (PLENDIL) 5 mg 24 hr tablet Take morning of surgery hydroCHLOROthiazide (HYDRODIURIL) 25 mg tablet Don't take on day of surgery losartan (COZAAR) 100 mg tablet Don't take on day of surgery POTASSIUM CHLORIDE ER 20 mEq CR tablet Don't take on day of surgery urea (CARMOL) 40 % cream Don't take on day of surgery General [...] with COVID-19. You test positive for COVID-19. GER PLANT * Perioperative Nursing Note - Kanchan Casarez RN - 05/08/2022 1:42 PM CST [facility] for Preoperative Assessment [facility] Planning Perioperative Nursing Note Telephone Preoperative Evaluation ([facility]) - TELEPHONE ONLY, NO PHYSICAL EXAM Date: 05/08/22 Vitals: 05/08/22 1340 Weight: 81.6 kg (180 lb) Height: 177.8 cm (5' 10 ) Social History Tobacco Use Smoking Status Never Smokeless Tobacco Never Substance and Sexual Activity Drug Use Not Currently Types: Marijuana Alcohol Use Q1: How often do you have a drink containing alcohol?: 2-3 times a week Q2: How many drinks containing alcohol do you have on a typical day when you are drinking?: 3 or 4 Q3: How often do you have six or more drinks on one occasion?: Never Outpatient Medications Marked as Taking for the 05/24/22 encounter (Hospital Encounter) Medication Sig Dispense Refill ALPRAZolam (XANAX) 0.25 mg tablet Take 1 tablet (0.25 mg total) by mouth nightly as needed for sleep 1 amitriptyline (ELAVIL) 25 mg tablet Take 2 tablets (50 mg total) by mouth nightly 60 tablet 2 atorvastatin (LIPITOR) 40 mg tablet Take 1 tablet (40 mg total) by mouth nightly EDEX 20 mcg injection 20 mcg by intracavity route as needed for erectile dysfunction famotidine (PEPCID) 20 mg tablet Take 1 tablet (20 mg total) by mouth as needed for indigestion felodipine (PLENDIL) 5 mg 24 hr tablet Take 1 tablet (5 mg total) by mouth 2 (two) times a day hydroCHLOROthiazide (HYDRODIURIL) 25 mg tablet Take 1 tablet (25 mg total) by mouth every morning losartan (COZAAR) 100 mg tablet Take 1 tablet (100 mg total) by mouth every morning POTASSIUM CHLORIDE ER 20 mEq CR tablet Take 1 tablet (20 mEq total) by mouth every morning 5 urea (CARMOL) 40 % cream Apply 1 application topically every morning Implants No active implants to display in this view. SKIN Piercings Remaining: No Wound (LDAs) Type of Wound (LDA): (denies) SCREENINGS Romain index score: 100 PATIENT CARE PLANNING Advance Directives (For Healthcare) Have you reviewed your Advance Directive and is it valid for this stay?: Yes Advance Directive: Patient has advance directive, copy not in chart Advance Directive not in Chart: Copy requested from family Communication/Lung Splitter Needs Communication Needs: Glasses, Contacts Patient's Preferred Language: Dominican Assistive Devices/DME: Eyeglasses, Contacts Discharge Planning Type of Residence: Private residence Living Arrangements: Spouse/significant other Support Systems: Spouse/significant other Patient expects to be discharged to:: Private residence BENDER HELPER NO ADDITIONAL COMMENTS/ FOLLOW UP GER PLANT * Pre-Procedure Instructions - Kanchan Casarez RN - 05/08/2022 1:41 PM CST [facility] ([facility]) PRE-SURGICAL NURSING INSTRUCTIONS Telephone Assessment General Information Discussed with Patient: Surgery location provided to patient. Arrival time and surgical time will be provided to the patient by their surgeon. You should wear clothing that is clean, loose, comfortable and easy to get in and out of on the dayof surgery. You should leave your valuables and any jewelry at home. No metal or piercings are allowed in the operating room. You should bring your insurance card, a photo ID (example: Plastic Cutter's License) and a method of payment for any insurance copay, deductible or copay for discharge medications. You should bring a complete, up-to-date list of all your medications on the day of surgery, including any over the counter medications or supplements you may take. You should bring your Advanced Directive and/or Living Will with you on the day of surgery if you have not verified a copy is already in your Epic Chart. If you are having surgery at [facility], please arrive on the day of surgery [...] Pathway to Excellent [facility] by the followinglink: [email or web address] How To Prepare Your Skin For Surgery [...] creams, powders, Vaseline or any non-essential products. Place clean linens on your bed the night before surgery. Shaving: You may shave your face, legs and underarms during your evening shower. Avoid shaving on the day of surgery. Travel/Exp osure Screening: Travel Screening Have you traveled outside the [place] in the last 6 months?: No Exposure Screening Have you been exposed to anyone who is sick in the last 30 days?: No Have you been exposed to or tested positive for COVID-19 within the last 10 days?: No Have you tested positive for monkeypox within the last 28 days or are you waiting for a monkeypox test result?: No Infectious Disease Screening Are you having [...] questions, please call the CPAP Staff at [phone], Sunday-Sunday 8am-4:30pm. All patients should read the below section: All visitors/patients are being asked to wear a clean face mask when entering the hospital. COVID 19 Updates & Visitor Policy: Please access [email or web address] for the most updated information. Information on [facility]: Please view [email or web address] (Patient & Visitor Information) for additional details regarding Advanced Directive forms, AWARE, directions, parking information, lodging, Internet access, dining and more. Information on [facility] or [facility] ([facility]): Please view [email or web address] (Patient and Visitor Information) for parking/directions and more. For MyChart information, to activate account or password recovery, please go to [email or web address] or call [phone] (toll-free: [phone]). Information for Suicide Prevention: National Suicide Prevention Lifeline (5-058- 937-PCTA (1148)). Surgery Times: For patients having surgery @ [facility], [facility], [facility] or [facility] ([facility]), if your surgeon's office has not notified you of your surgery time by NOON THE BUSINESS DAY BEFORE your surgery, please call [phone] and ask for your surgeon's office. For patients having [facility] @ [facility], if your surgeon's office has not notified you of your surgery time by NOON THE BUSINESS DAY BEFORE your surgery, please call the surgery center [phone]. GER PLANT documented in this encounter Plan of Treatment Not on file documented as of this encounter Procedures Procedure Name Priority Date/Time Associated Diagnosis Comments CYSTOSCOPY 05/24/2022 10:45 AM MANAGER PLANT Neurogenic bladder Urge urinary incontinence Special Needs 300 UNITS OF BOTOX TO BE MIXED WITH 30 CC NORMAL SALINE IN OR; CHERELLE NEEDLE FOR INJECTION INJECTION BOTOX 05/24/2022 10:45 AM MANAGER PLANT Neurogenic bladder Urge urinary incontinence Special Needs 300 UNITS OF BOTOX TO BE MIXED WITH 30 CC NORMAL SALINE IN OR; CHERELLE NEEDLE FOR INJECTION POC ISTAT Routine 05/24/2022 8:53 AM MANAGER PLANT documented in this encounter Results * POC ISTAT (05/24/2022 8:53 AM MANAGER PLANT) K POC 3.7 3.3 - 4.9 mmol/L [place] [facility] Comment: Interpretive Data This method is not able to assess for hemolysis, which may falsely increase potassium concentrations. If further testing is needed to evaluate this result, consider in-laboratory plasma potassium. Current Interpretive Data was last revised on 2022. POC Device Number [id number] [facility] P[facility] Performer [id number] [place] [facility] Blood 05/24/2022 8:53 AM MANAGER PLANT 05/24/2022 8:53 AM MANAGER PLANT us Marquis Lopez MD LAB BLOOD ORDERABLES Final Res ult [place] [facility] [address] [facility]. Department [place] [address] documented in this encounter Visit Diagnoses Diagnosis Neurogenic bladder Neurogenic bladder, NOS Urge urinary incontinence Urge incontinence documented in this encounter Admitting Diagnoses Diagnosis Neurogenic bladder Neurogenic bladder, NOS Urge urinary incontinence Urge incontinence documented in this encounter Administered Medications Inactive Administered Medications - up to 3 most recent administrations Medication Order MAR Action Action Date Dose Rate Site dexAMETHasone (DECADRON) 4 mg/mL injection 8 mg 8 mg, intravenous, Administer over 2 Minutes, Once, On Sun05/24/22 at 1015, For 1 dose, Pre-Op Given 05/24/2022 9:45 AM MANAGER PLANT 8 mg fentaNYL (SUBLIMAZE) preservative free injection 50 mcg 50 mcg, intravenous, Every 5 min PRN, 1st line for pain, max 100 mcg, Starting on Sun05/24/22 at 0934, For 2 doses, Pre-Op Given 05/24/2022 9:45 AM MANAGER PLANT 50 mcg Lactated Ringer's (LR) infusion 30 mL/hr, intravenous, Continuous, Starting on Sun05/24/22 at 0900, For 4 hours, Pre-Op, Use a 500 ml bag for End Stage Renal Disease Patients. Discontinue if fluid still running once patient arrives to floor. Restarted 05/24/2022 10:53 AM MANAGER PLANT New Bag 05/24/2022 8:51 AM MANAGER PLANT 30 mL/hr 30 mL/hr documented in this encounter Discontinued Medications Medication Sig Discontinue Reason Start Date End Da te hyoscyamine (OSCIMIN) 0.125 mgIndications:Urinary Incontinence Take 1 tablet (0.125 mg total) by mouth as needed for cramping Therapy completed 05/08/2022 simvastatin (ZOCOR) 40 mg tablet Take 1 tablet (40 mg total) by mouth nightly Alternate therapy 09/26/2021 05/08/2022 documented as of this encounter Historical Medications * This list may reflect changes made after this encounter. atorvastatin (LIPITOR) 40 mg tabletIndications :hyperlipidemia Take 1 tablet (40 mg total) by mouth nightly 04/05/2022 added in this encounter Active and Recently Administered Medications Times are shown in MANAGER PLANT. Scheduled Medication Order 05/22/2022 05/23/2022 05/24/2022 dexAMETHasone (DECADRON) 4 mg/mL injection 8 mg (COMPLETED) 8 mg, intravenous, Administer over 2 Minutes, Once, On Sun05/24/22 at 1015, For 1 dose, Pre-Op 0945 (Given - Provid er: Leila Rashid RN) Continuous Medication Order 05/22/2022 05/23/2022 05/24/2022 Lactated Ringer's (LR) infusion 30 mL/hr, intravenous, Continuous, Starting on Sun05/24/22 at 0900, For 4 hours, Pre-Op, Use a 500 ml bag for End Stage Renal Disease Patients. Discontinue if fluid still running once patient arrives to floor. 0851 (New Bag - Prov ider: Leila Rashid RN)1052 (Paused - Provider: Iam Bagley MD - Comment: Switch to gravity)1053 (Restarted - Provider: Iam Bagley MD) Lactated Ringer's (LR) infusion 125 mL/hr, intravenous, Continuous, Starting on Sun05/24/22 at 1215, For 4 hours, Phase I, Discontinue upon discharge from PACU to the floor. 1133 (Continued from OR - Provider: Terri Mike RN) PRN Medication Order 05/22/2022 05/23/2022 05/24/2022 acetaminophen (TYLENOL) tablet 500 mg 500 mg, oral, Every 6 hours PRN, headaches, other, Breakthrough Pain and Supplement to other pain meds, Starting on Sun05/24/22 at 1133, For 2 doses, Phase I, When able to tolerate PO after consulting with Anesthesiologist. Do not administer if patient has already received Acetaminophen-containing medications in PACU., Indications: Pain diphenhydrAMINE (BENADRYL) injection 12.5 mg 12.5 mg, intravenous, Administer over 1 Minutes, Every 5 min PRN, itching, other, For Nausea, administer 25 mg IV., Starting on Sun05/24/22 at 1133, For 4 doses, Phase I, Max cumulative dose 50 mg., Indications: Itching fentaNYL (SUBLIMAZE) preservative free injection 25 mcg 25 mcg, intravenous, Every 5 min PRN, 2nd line for pain, Use Fentanyl as 1st line medication for extremely severe pain for outpatients, and follow with oral pain medication., Starting on Sun05/24/22 at 1133, For 4 doses, Phase I, Use as 1st line for outpatients, dose not to exceed 100 mics. If pain still extremely severe after 100 mics of Fentanyl, may proceed to Dilaudid after consulting with Anesthesiologist. If patient able to tolerate PO meds and pain improved after Fentanyl, proceed to Oral pain medication., Indications: Pain fentaNYL (SUBLIMAZE) preservative free injection 50 mcg (CANCELED) 50 mcg, intravenous, Every 5 min PRN, 1st line for pain, max 100 mcg, Starting on Sun05/24/22 at 0934, For 2 doses, Pre-Op 0945 (Given - Provid er: Leila Rashid RN) hydrALAZINE (APRESOLINE) injection 5 mg 5 mg, intravenous, Administer over 2 Minutes, Every 5 min PRN, high blood pressure, Starting on Sun05/24/22 at 1133, Phase I, Max cumulative dose 20 mg. [...] and follow with Oral meds., Starting on Sun05/24/22 at 1133, For 2 doses, Phase I, May administer [...] patients with extremely severe pain., Starting on Sun05/24/22 at 1133, Phase I, Use as first line pain [...] min PRN, high blood pressure, Starting on Sun05/24/22 at 1133, For 4 doses, Phase I, Max cumulative dose 20 mg. Dose if systolic blood pressure greater than 180 AND HR greater than 70. meperidine (DEMEROL) preservative free injection 12.5 mg 12.5 mg, intravenous, Administer over 5 Minutes, Every 10 min PRN, shivering, Starting on Sun05/24/22 at 1133, For 2 doses, Phase I, Max cumulative dose 25 mg., Indications: Shivering naloxone (NARCAN) 0.4 mg/mL injection 0.04-0.4 mg 0.04-0.4 mg, intravenous, Once as needed, other, excessive sedation/respiratory depression, Starting on Sun05/24/22 at 1133, For 1 dose, Phase I, Dilute 0.4 [...] (BOTOX) injection (CANCELED) As needed, Starting on Sun05/24/22 at 1110, Intra-Op 1110 (Given - Provid er: Marquis Lopez MD - Comment: Bladder) sodium chloride 0.9% irrigation (CANCELED) As needed, Starting on Sun05/24/22 at 1111, Intra-Op 1111 (Given - Provid er: Marquis Lopez MD) sodium chloride bacteriostatic 0.9 % injection (CANCELED) As needed, Starting on Sun05/24/22 at 1111, Intra-Op 1111 (Given - Provid er: Marquis Lopez MD - Comment: mixed with Botox) documented in this encounter Orders Medications Ordered That Julio Cesar ht Not Have Been Administered Count Last Ordered Date First Ordered Date acetaminophen (TYLENOL) tablet 500 mg 1 ceFAZolin (ANCEF) 1 gram/10 mL in sterile water (premix) 2,000 mg 1 05/24/2022 diphenhydrAMINE (BENADRYL) i njection 12.5 mg 1 05/24/2022 famotidine (PEPCID) injection 20 mg 1 05/24 fentaNYL (SUBLIMAZE) preserv ative free injection 25 mcg 1 05/24/2022 hydrALAZINE (APRESOLINE) injection 5 mg 1 1 07/24/2021 HYDROcodone-acetaminophen (N ORCO) 5-325 mg per tablet 1 tablet 1 05/24/2022 HYDROmorphone (DILAUDID) injection 0.2 mg 1 05/24/2022 labetaloL (NORMODYNE,TRANDAT E) injection 5 mg 1 05/24/2022 Lactated Ringer's (LR) infusion 1 meperidine (DEMEROL) preserv ative free injection 12.5 mg 1 05/24/2022 naloxone (NARCAN) 0.4 mg/mL injection 0.04-0.4 mg 1 05/24/2022 onabotulinumtoxin A (BOTOX) injection 1 scopolamine patch 72 hour 1 patch 1 022 sodium chloride 0.9% flush 0.5-20 mL 1 04/27 sodium chloride 0.9% irrigation 1 2 sodium chloride bacteriostat ic 0.9 % injection 1 05/24/2022 Discharge Count Last Ordered Date First Orde red Date DISCHARGE PATIENT 1 05/24/2022 documented in this encounter Care Teams Manager Trainee Relationship Specialty Start Date End Date Mick Flowers MD PCP - General 05/14/17 documented as of this encounter
--- OUTSIDE RECORDS SUMMARY | 2024-06-29 00:28 | XMS_ITS | Encounter Summary ---
Author Organization [facility] Healthcare Address [address] [place] [address] Care Team Providers Care Manager Medicare Marketing Name Role Phone Mick Flowers MD Primary Care Provider [phone] Reason for Visit * Auth/Cert Specialty Diagnoses / Procedures Referred By Contac t Referred To Contact Diagnoses Neurogenic bladder Urge urinary incontinence Neurogenic bladder [N31.9] Urge urinary incontinence [N39.41] Procedures NV CYSTOURETHROSCOPY INJ CHEMODENERVATION BLADDER NV CYSTOURETHROSCOPY INJECTION BOTOX 300 UNITS CYSTOSCOPY Referral ID Status Reason Start Date Expiration Date Visits Re quested Visits Authorized [id number] 1 1 Encounter Details Date Type Department Care Team (Late st Contact Info) Description 05/24/2022 11:15 AM VERTICAL BORING MILL OPERATOR - 05/24/2022 12:30 PM VERTICAL BORING MILL OPERATOR Surgery [facility] Operating Room [address] [place] [address] Marquis Lopez MD [address] [facility] [address] [place] [address] INJECTION BOTOX 300 UNITS Surgery Details Date/Time Status Location OR Service Patient Class Case Cl ass Case Type Trauma Case? 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 on file Not on file documented as of this encounter Last Filed Vital Signs Vital Sign Reading Time Taken Comments Blood Pressure 126/71 05/24/2022 12:05 PM VERTICAL BORING MILL OPERATOR Pulse 70 05/24/2022 12:05 PM VERTICAL BORING MILL OPERATOR Temperature 35 ??C (95 ??F) 05/24/2022 12:05 PM VERTICAL BORING MILL OPERATOR Respiratory Rate 16 05/24/2022 12:05 PM VERTICAL BORING MILL OPERATOR Oxygen Saturation 100% 05/24/2022 12:05 PM VERTICAL BORING MILL OPERATOR Inhaled Oxygen Concentration - - Weight 81.6 kg (180 lb) 05/08/2022 1:40 PM VERTICAL BORING MILL OPERATOR Height 177.8 cm (5' 10 ) 05/08/2022 1:40 PM VERTICAL BORING MILL OPERATOR Body Mass Index 25.83 05/08/2022 1:40 PM VERTICAL BORING MILL OPERATOR documented in this encounter Discharge Instructions * Discharge Instructions* Terri Mike, LILIA - 05/24/2022 11:32 AM VERTICAL BORING MILL OPERATOR DISCHARGE INSTRUCTIONS Call your doctor if: * [...] of narcotic pain medication include Percocet, Oxycontin, Rolfe, Hydrocodone, and Oxycodone. FAQs (frequently asked questions) [...] physical therapy, we are available to assist: [facility] STAR: [facility] [phone] [place] [phone] [facility] [phone] How are some things that you can [...] doctor or other health resident care manager. ICAL BORING MILL OPERATOR ICAL BORING MILL OPERATOR documented in this encounter Medications at Time [...] Normal affect and mood, oriented x 3. ICAL BORING MILL OPERATOR Source Note - Cherry Minor MD - 05/09/2022 11:00 AM VERTICAL BORING MILL OPERATOR Time spent on 05/09/22 reviewing chart prior to visit: 3:25am - 3:40am (15min) Time spent during visit itself 11:10am - 1157am (47min) Time spent on 05/09/22 after visit orders/charting etc: 1255pm - 1257pm ( 2min) Total time on 05/09/22 by [place]: 15 + 47 + 2 = 64 total by [place] Patient Name: MARITA BORRERO Medical Record Number (MRN): [id number] Date of (): 1965 Encounter Date: 05/09/2022 Chief Complaint Marita Borrero is a 56 y.o. male seen today for MS followup, MS medication management & MS Symptom management. Pt was last seen on 09-13-21 by [place]. Some portions of this note were copied [...] MRI examination, there are approximately 10 of FLAIR/E4ruolriucaatz lesions. There are multiple foci of hyperintensity on FLAIR and T2-weighted images within the white matter compatible with demyelinating plaques of multiple sclerosis. This includes periventricular, callosal,cortical lesions. New Brain T2 Lesions: 4, T1 Hypointense Black Holes : 0 Enhancing Brain Lesions: 0 T2/FLAIR [place] of Disease: Mild, less than 10 [...] incontinence, but no issues in many months. [place] saw him 12/14/2020 and wrote: Interim: I [...] along with the bladder. Thanks, Marita Borrero [phone] Today 12-14-20 on this telemed visit, Mr [...] of DOMINIQUE (Mr Borrero) in the [facility] longitudinal study. This patient belongs [...] Neurological History: Mr. Borrero is a former [place] worker in [facility] [employer] and has lived in [place] and [place], [place]. He is Rt handed. Mr Borrero [...] LP (abnormal), MRI. Diagnosis made when in [employer]. 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 MS [...] or fatigue. Not excessive. Bowel problems developed [id number], with intermittent diarrhea and stool incontinence. No [...] 05/09/22 (exam done by Dr Bateman with [place] watching) He did not bring a walking [...] APD. Pupils are O.D./O.S.: 2/2 --> 1/1. VFFTC. [...] Rapid alternating movements are normal in UEs. Zavh-qsrx-hiaz is normal bilat. Rhythmic toe tapping - [...] 10-08-2018 (most recent F2F exam done by [facility]); Walk Aid: none General: MARITA BORRERO is [...] is normal. Rapid alternating movements are normal. Cqmj-tnhr-mnnc is normal. Rhythmic toe tapping - normal. [...] Assessment/Plan Diagnosis Plan 1. Multiple sclerosis (CMS/HCC) ([facility]) Ambulatory referral to Neurology 2. Neurogenic bladder [...] to refer you to a blood pressure quality control microbiologist. I feel likeyou may need your medications [...] PSA and yearly skin survey by a occupational therapist home based. Keep in touch. Sincerely, Cherry Minor . >50% of the time was spent counseling and/or coordinating care as per above note. Resident Dr. Nik Bateman in room entire time. Discussion and decision making was of high-complexity due to the patient's high risk condition, multiple co-morbidities, neuropsychological co-morbidities, cognitive problems, and/or multiple sites of involved disability. The recommended medications are potentially of high risk consequence in theirside effects. Cherry Minor MD Professor of Neurology Usman Rosenbaum [facility] Department of Neurology [facility] ; ICAL BORING MILL OPERATOR * Marquis Lopez MD - 05/24/2022 9:10 [...] Normal affect and mood, oriented x 3. ICAL BORING MILL OPERATOR Source Note - Tika Wright NP - 05/09/2022 2:47 PM VERTICAL BORING MILL OPERATOR Images from the original note were not included. Center for Preoperative Assessment and Planning Preoperative Evaluation Record Evaluation type/location: TPAP from [facility] Planned procedure site: [facility] OR Date: 05/09/22 NOTE: This note represents [...] 1999. + Hyperlipidemia (on statin) Pertinent negatives: CT ; CABG ; systolic/diastolic dysfunction w/o CHF [...] Systems + muscle weakness (left leg weakness/drags 2/ MS unchanged in the last year) + [...] via telephone and in writing sent via paOnde. Patient verbalized understanding of preoperative plan. Preoperative [...] (LIPITOR) 40 mg tablet 05/07/2022 04/05/22 -- Bettie Batres MD EDEX 20 mcg injection Past Week 06/11/19 -- Bettie Batres MD famotidine (PEPCID) 20 mg tablet Past Week 10/06/21 -- Bettie Batres MD felodipine (PLENDIL) 5 mg 24 hr tablet 05/08/2022 07/19/07 -- Bettie Batres MD hydroCHLOROthiazide (HYDRODIURIL) 25 mg tablet 05/08/2022 -- -- Bettie Batres MD losartan (COZAAR) 100 mg tablet [...] last 720 hours. Romain index score: 100 ICAL BORING MILL OPERATOR documented in this encounter Miscellaneous Notes * Perioperative Nursing Note - Debbie Maier RN - 05/24/2022 1:07 PM VERTICAL BORING MILL OPERATOR Marita is fully conscious oriented. He was [...] can call him if anything came up. ICAL BORING MILL OPERATOR * Perioperative Nursing Note - Terri Mike, LILIA - 05/24/2022 12:10 PM VERTICAL BORING MILL OPERATOR Pt with bleeding from penis. Dr Lopez notified and states ok to cath self and dc home ICAL BORING MILL OPERATOR * Perioperative Nursing Note - Terri Mike, LILIA - 05/24/2022 11:33 AM VERTICAL BORING MILL OPERATOR NO SURGICAL WOUND TO VISUALIZE ICAL BORING MILL OPERATOR * Op Note - Marquis Lopez MD - 05/24/2022 11:15 AM CST Date of Surgery: 05/24/2022 Preoperative diagnosis: neurogenic bladder with detrusor overactivity and urgency urinary incontinence Post-operative diagnosis: neurogenic bladder with detrusor overactivity and urgency urinary incontinence Procedure: Cystoscopy, injection of 300 units of onabotulinumtoxinA (Botox) into the bladder Surgeon: Marquis Lopez MD Equipment Processer Storage: Papo Munguia MD Anesthesia: General Complications: None [...] Marquis Lopez, was present throughout the surgery. ICAL BORING MILL OPERATOR * Brief Op Note - Marquis Lopez MD - 05/24/2022 11:15 AM CST Operative Progress Note Surgical Team: Surgeon(s) and Role: * Marquis Lopez MD - Primary * MunguiaLiam MD - Resident - Assisting Anesthesiologist: Iam Bagley MD Hospital Attendant: Momo Beasley RN Scrub: Russ Guidry ST [...] the entire procedure (including opening and closing). ICAL BORING MILL OPERATOR * Pre-Procedure Instructions - Tika Wright NP - 05/09/2022 2:51 PM CST Center for Preoperative Assessment and Planning CPAP Clinic Location: [facility] The night before your surgery: * Do [...] going to be admitted after surgery at [facility], COVID testing may be performed on the day of surgery, even if you are up to date on your COVID-19 vaccine. * If having surgery at [facility], you may want to bring a credit card if you want to use our Mobile Pharmacy for your discharge medications. Mobile pharmacy is not available at [facility], the [facility], or [facility]. Outpatient Surgery: * You must have a [...] with COVID-19. You test positive for COVID-19. ICAL BORING MILL OPERATOR * Perioperative Nursing Note - Kanchan Casarez RN - 05/08/2022 1:42 PM CST Center for Preoperative Assessment and Planning Perioperative Nursing Note Telephone Preoperative Evaluation ([facility]) - TELEPHONE ONLY, NO PHYSICAL EXAM [...] not in Chart: Copy requested from family Communication/Welfare Centre Manager Needs Communication Needs: Glasses, Contacts Patient's Preferred Language: Bulgarian Assistive Devices/DME: Eyeglasses, Contacts Discharge Planning Type of Residence: Private residence Living Arrangements: Spouse/significant other Support Systems: Spouse/significant other Patient expects to be discharged to:: Private residence GRADING MACHINE FEEDER NO ADDITIONAL COMMENTS/ FOLLOW UP ICAL BORING MILL OPERATOR * Pre-Procedure Instructions - Kanchan Casarez RN [...] your insurance card, a photo ID (example: [place] Grinder Operator's License) and a method of payment [...] Chart. If you are having surgery at [facility], please arrive on the day of [...] Pathway to Excellent Care by the followinglink: [email or web address] How To Prepare Your [...] questions, please call the CPAP Staff at [phone], Sunday-Sunday 8am-4:30pm. All patients should read the below section: All visitors/patients are being asked to wear a clean face mask when entering the hospital. COVID 19 Updates & Visitor Policy: Please access [email or web address] for the most updated information. Information on [facility]: Please view [email or web address] (Patient & Visitor Information) for additional details regarding Advanced Directive forms, AWARE, directions, parking information, lodging, Internet access, dining and more. Information on [facility] or [facility] ([facility]): Please view [email or web address] (Patient and Visitor Information) for parking/directions and more. For MyChart information, to activate account or password recovery, please go to [email or web address] or call [phone] (toll-free: [phone]). Information for Suicide Prevention: National Suicide Prevention Lifeline (7-435- 061-TUCY (9596)). Surgery Times: For patients having surgery @ [facility], [facility], [facility] or [facility] ([facility]), if your surgeon's office has not notified you of your surgery time by NOON THE BUSINESS DAY BEFORE your surgery, please call [phone] and ask for your surgeon's office. For patients having surgery @ [facility], if your surgeon's office has not notified you of your surgery time by NOON THE BUSINESS DAY BEFORE your surgery, please call the surgery center [phone]. ICAL BORING MILL OPERATOR documented in this encounter Plan of Treatment Not on file documented as of this encounter Procedures Procedure Name Priority Date/Time Associated Diagnosis Comments CYSTOSCOPY 05/24/2022 10:45 AM VERTICAL BORING MILL OPERATOR Neurogenic bladder Urge urinary incontinence Special Needs 300 UNITS OF BOTOX TO BE MIXED WITH 30 CC NORMAL SALINE IN OR; CHERELLE NEEDLE FOR INJECTION INJECTION BOTOX 05/24/2022 10:45 AM VERTICAL BORING MILL OPERATOR Neurogenic bladder Urge urinary incontinence Special Needs 300 UNITS OF BOTOX TO BE MIXED WITH 30 CC NORMAL SALINE IN OR; CHERELLE NEEDLE FOR INJECTION POC ISTAT Routine 05/24/2022 8:53 AM VERTICAL BORING MILL OPERATOR documented in this encounter Results * POC ISTAT (05/24/2022 8:53 AM VERTICAL BORING MILL OPERATOR) [facility] K POC 3.7 3.3 - 4.9 mmol/L [place] [facility] Comment: Interpretive Data This method is not able to assess for hemolysis, which may falsely increase potassium concentrations. If further testing is needed to evaluate this result, consider in-laboratory plasma potassium. Current Interpretive Data was last revised on 2022. POC Device Number [id number] [place] [facility] POC Performer [id number] [place] [facility] Blood 05/24/2022 8:53 AM VERTICAL BORING MILL OPERATOR 05/24/2022 8:53 AM VERTICAL BORING MILL OPERATOR us Marquis Lopez MD LAB BLOOD ORDERABLES Final Res ult [place] [facility] [address] [facility]. Department [place] [address] documented in this encounter Visit Diagnoses Diagnosis Neurogenic bladder Neurogenic bladder, NOS Urge urinary incontinence Urge incontinence Neurogenic bladder [...] 1 dose, Pre-Op Given 05/24/2022 9:45 AM VERTICAL BORING MILL OPERATOR 8 mg fentaNYL (SUBLIMAZE) preservative free injection 50 mcg 50 mcg, intravenous, Every 5 min PRN, 1st line for pain, max 100 mcg, Starting on Sun05/24/22 at 0934, For 2 doses, Pre-Op Given 05/24/2022 9:45 AM VERTICAL BORING MILL OPERATOR 50 mcg Lactated Ringer's (LR) infusion 30 mL/hr, intravenous, Continuous, Starting on Sun05/24/22 at 0900, For 4 hours, Pre-Op, Use a 500 ml bag for End Stage Renal Disease Patients. Discontinue if fluid still running once patient arrives to floor. Restarted 05/24/2022 10:53 AM VERTICAL BORING MILL OPERATOR New Bag 05/24/2022 8:51 AM VERTICAL BORING MILL OPERATOR 30 mL/hr 30 mL/hr onabotulinumtoxin A (BOTOX) injection As needed, Starting on Sun05/24/22 at 1110, Intra-Op Given 05/24/2022 11:10 AM VERTICAL BORING MILL OPERATOR 300 Units sodium chloride 0.9% irrigation As needed, Starting on Sun05/24/22 at 1111, Intra-Op Given 05/24/2022 11:11 AM VERTICAL BORING MILL OPERATOR 1,000 mL Surgical Site sodium chloride bacteriostatic 0.9 % injection As needed, Starting on Sun05/24/22 at 1111, Intra-Op Given 05/24/2022 11:11 AM VERTICAL BORING MILL OPERATOR 30 mL documented in this encounter Discontinued Medications Medication [...] Recently Administered Medications Times are shown in VERTICAL BORING MILL OPERATOR. Scheduled Medication Order 05/22/2022 05/23/2022 05/24/2022 dexAMETHasone [...] 0.4 mg/mL injection 0.04-0.4 mg 1 05/24/2022 scopolamine patch 72 hour 1 patch 1 022 sodium chloride 0.9% flush 0.5-20 mL 1 04/27 Discharge Count Last Ordered Date First Orde red Date DISCHARGE PATIENT 1 05/24/2022 documented in this encounter Care Teams Manager Medicare Marketing Relationship Specialty Start Date End Date Mick Flowers MD PCP - General 05/14/17 documented as of this encounter
--- OUTSIDE RECORDS SUMMARY | 2024-06-29 00:28 | XMS_ITS | Encounter Summary ---
Author Organization [facility] Healthcare Address [address] [place] [address] Care Team Providers Care Social Media Editor Name Role Phone Mick Flowers MD Primary Care Provider [phone] Reason for Referral * MRI/CAT/PET Scan (Routine) - Closed Specialty Diagnoses / Procedures Referred By Contac t Referred To Contact Radiology Diagnoses Mechanical low back pain Posterior pain of hip, right Procedures MRI Lumbar Spine WO Contrast Walter Rojas MD [address] [facility] [address] [place] [address] Phone: tel: fax: [address] [phone] Referral ID Status Reason Start Date Expiration Date Visits Re quested Visits Authorized [id number] Closed 09/12/2022 10/12/2023 1 1 Reason for Visit * MRI/CAT/PET Scan (Routine) - Closed Specialty Diagnoses / Procedures Referred By Contac t Referred To Contact Radiology Diagnoses Mechanical low back pain Posterior pain of hip, right Procedures MRI Lumbar Spine WO Contrast Walter Rojas MD [address] [facility] [address] [place] [address] Phone: tel: fax: [address] [phone] Referral ID Status Reason Start Date Expiration Date Visits Re quested Visits Authorized [id number] Closed 09/12/2022 10/12/2023 1 1 Encounter Details Date Type Department Care Team (Latest Contact Info) Description 11/23/2022 2:41 PM CDT - 11/23/2022 11:59 PM CDT Hospital Encounter [address] [id number] Mechanical low back pain; Posterior pain of hip, right Discharge Disposition: Discharge to home or self [...] on file Legal Sex Male 3:12 AM RADIOTELEGRAPHIST Gender Identity Not on file Sexual Orientation [...] or self care documented in this encounter Miscellaneous Notes * Result Encounter Note - Walter Rojas MD - 11/23/2022 11:59 PM CDT MRI of the lumbar spine demonstrates a disc protrusion to the right at L5/S1 approximating the L5 nerve, correlating with symptoms most recently reevaluated. If symptoms have not improved or changed significantly from the time of last evaluation, a similar injection may be helpful, this time placing where the right L5 nerve exits the spine. Please update with any change in symptoms, and please share thoughts/questions regarding these results. Right L5 TESI if scheduling. * Result Encounter Note - Adore Garibay LPN - 11/23/2022 11:59 PM CDT LVM advising pt to return call if he would like to schedule recommended steroid injection with Dr. Dockery documented in this encounter Plan of Treatment Not on file documented as of this encounter Procedures Procedure Name Priority Date/Time Associated Diagnosis Comments MRI LUMBAR SPINE WO CONTRAST Schedule Routine, Read Routine (OP Routine) 11/23/2022 3:44 PM CDT Mechanical low back pain Posterior pain of hip, right documented in this encounter Results * MRI Lumbar Spine [...] annular disc bulge asymmetric to the left. ??Ckfx-pp-ihbywqce facet arthropathy and ligamentum flavum hypertrophy, left greater than right. ?? No significant spinal canal or neural foraminal stenosis. L5-S1: ?? Diffuse disc bulge with ??small central disc protrusion and annular fissure. ??Mild facet arthropathy. ??No significant spinal canal stenosis. ??No significant left and avrk-hc-lcustffb right neural foraminal stenosis with disc annulus slightly contacting the inferior margin of the exiting right L5 nerve root. ??Small area of edema in the right paraspinal soft tissues adjacent to the right facet. SACRUM: ?? Visualized upper sacrum intact. VISUALIZED UPPER ABDOMEN: ?? No significant abnormality. OTHER: ?? No other significant findings. IMPRESSION: Mild lumbar degenerative changes most advanced at L5-S1 with uzgc-sa-qzpbtdpa right neural foraminal stenosis. No significant spinal canal or neural foraminal stenosis. ?? No significant degenerative progression compared to 09/09/2019. THIS IS AN ELECTRONICALLY VERIFIED FINAL REPORT 11/23/2022 4:57 PM - Electronically signed by ??Sunil Gamble M.D. AG: AG D: ??11/23/2022 4:57 PM T: ??11/23/2022 4:57 PM Report ID: [id number] Reading Location: ??[id number] Procedure Note Sunil Gamble MD - 11/23/2022 EXAM DESCRIPTION: MRI LUMBAR SPINE WO CONTRAST REASON FOR STUDY: Patient reports lower back pain x 3 years with cortisone injections x 3 years. No known injury. Hx MS x 30 years. TECHNIQUE: Sagittal and Axial imaging includes T1, T2, STIR sequences. COMPARISON: Lumbar spine MRI 09/09/2019 and lumbar lqsrbxbmgut12/12/2022 FINDINGS: SEGMENTATION: In keeping with the numbering [...] Minimal annular disc bulge asymmetric to the left.Egkv-mv-brulxoxg facet arthropathy and ligamentum flavum hypertrophy, left greater thanright. No significant spinal canal or neural foraminal stenosis. L5-S1: Diffuse disc bulge with small central disc protrusion andannular fissure. Mild facet arthropathy. No significant spinal canal stenosis.No significant left and wzza-is-odczshwd right neural foraminal stenosis with disc annulus slightly contacting the inferior margin of the exiting rightL5 nerve root. Small area of edema in the right paraspinal soft tissuesadjacent to the right facet. SACRUM: Visualized upper sacrum intact. VISUALIZED UPPER ABDOMEN: No significant abnormality. OTHER: No other significant findings. IMPRESSION: Mild lumbar degenerative changes most advanced at L5-S1 oriamuui-ho-zwycqpli right neural foraminal stenosis. No significant spinal canal or neural foraminal stenosis. No significant degenerative progression compared to 09/09/2019. THIS IS AN ELECTRONICALLY VERIFIED FINAL REPORT 11/23/2022 4:57 PM - Electronically signed by Sunil Gamble M.D. AG: EDWIN Report ID: [id number] Reading Location: [id number] us Walter Rojas MD IMG MRI PROCEDURES Final R esult documented in this encounter Visit Diagnoses Diagnosis Mechanical low back pain Lumbago Posterior pain of hip, right documented in this encounter Care Teams Social Media Editor Relationship Specialty Start Date End Date Mick Flowers MD PCP - General 05/14/17 documented as of this encounter
--- OUTSIDE RECORDS SUMMARY | 2024-06-29 00:28 | XMS_ITS | Encounter Summary ---
Author Organization [facility] Address [address] [place] [address] Phone Care Team Providers Care Production Director Name Role Phone Mick Flowers MD Primary Care Provider [phone] Encounter Details Date Type Department Care Team (Late st Contact Info) Description 05/10/2022 Orders Only [facility] Multiple Sclerosis [address] [place] [address] [place] [address] Cherry Minor MD [address] [place] [address] Multiple sclerosis (CMS/HCC) (HCC) (Primary Dx) Social History Tobacco Use Types [...] on file Legal Sex Male 3:12 AM PIT BOSS Gender Identity Not on file Sexual Orientation Not on file 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
--- OUTSIDE RECORDS SUMMARY | 2024-06-29 00:28 | XMS_ITS | Encounter Summary ---
Author Organization [facility] Address [address] [place] [address] Phone Care Team Providers Care Spinner Open End Name Role Phone Mick Flowers MD Primary Care Provider [phone] Encounter Details Date Type Department Care Team (Late st Contact Info) Description 05/22/[address] 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 42 tablet 05/22/2022 07/04/2022 documented in this encounter Plan of Treatment Not on file documented as of this encounter Visit Diagnoses Not on filedocumented in this encounter Care Teams Spinner Open End Relationship Specialty Start Date End Date Mick Flowers MD PCP - General 05/14/17 documented as of this encounter
--- OUTSIDE RECORDS SUMMARY | 2024-06-29 00:28 | XMS_ITS | Encounter Summary ---
Author Organization [facility] [employer] Address [address] [place] [address] Phone Care Team Providers Care Spiral Machine Operator Name Role Phone Mick Flowers MD Primary Care Provider [phone] Encounter Details Date Type Department Care Team (Late st Contact Info) Description 11/30/2022 Orders Only [facility] Urology [address] [facility] Medical Office Building [address] [place] [address] Marquis Lopez MD [address] [facility] [address] [place] [address] Erectile dysfunction, unspecified erectile dysfunction type (Primary Dx) Social History Tobacco Use Types [...] on file Legal Sex Male 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 Gender Identity Not on file Sexual Orientation Not on file 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
--- OUTSIDE RECORDS SUMMARY | 2024-06-29 00:28 | XMS_ITS | Encounter Summary ---
Author Organization [facility] Address [address] [place] [address] Phone Care Team Providers Care Cabin Cleaning Supervisor Name Role Phone Mick Flowers MD Primary Care Provider [phone] Encounter Details Date Type Department Care Team (Late st Contact Info) Description 11/27/2022 Orders Only [facility] Advanced Medicine ([facility]) - [facility] Urology [address] [facility] 11th [place] [address] [place] [address] Marquis Lopez MD [address] [facility] [address] [place] [address] Social History Tobacco Use Types Packs/Day Years [...] file 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 Final ??Specimen Source: ?? Urine, catheter ??Specimen Quality: ??Adequate ??Result: ?Mixed genital padmini isolated. These superficial ? bacteria are not indicative of a urinary tract ? infection. No further organism identification is ? warranted on this specimen. If clinically ? indicated, recollect clean-catch, mid-stream ? urine and transfer immediately to Urine Culture ? Transport Tube. 11/27/2022 9:43 AM CDT 11/27/2022 9:45 AM CDT Marquis Lopez MD LAB MICROBIOLOGY - GENERAL ORD ERABLES Final Result [facility] [address] [place] [address] documented in this encounter Visit Diagnoses Not on filedocumented in this encounter Care Teams Cabin Cleaning Supervisor Relationship Specialty Start Date End Date Mick Flowers MD PCP - General 05/14/17 documented as of this encounter
--- OUTSIDE RECORDS SUMMARY | 2024-06-29 00:28 | XMS_ITS | Encounter Summary ---
Author Organization [facility] Address [address] [place] [address] Phone Care Team Providers Care Hook And Eye Attacher Name Role Phone Mick Flowers MD Primary Care Provider [phone] Encounter Details Date Type Department Care Team (Late st Contact Info) Description 05/09/2022 Orders Only [facility] Multiple Sclerosis [address] [place] [address] [place] [address] Cherry Minor MD [address] [place] [address] Multiple sclerosis (CMS/HCC) (HCC) (Primary Dx) Social [...] on file 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
--- OUTSIDE RECORDS SUMMARY | 2024-06-29 00:28 | XMS_ITS | Encounter Summary ---
Author Organization [facility] Address [address] [place] [address] Care Team Providers Care Silverware Supervisor Name Role Phone Mick Flowers MD Primary Care Provider [phone] Reason for Visit * Auth/Cert Specialty Diagnoses / Procedures Referred By Contac t Referred To Contact Diagnoses Neurogenic bladder Urge urinary incontinence Neurogenic bladder [N31.9] Urge urinary incontinence [N39.41] Procedures NH CYSTOURETHROSCOPY INJ CHEMODENERVATION BLADDER NH CYSTOURETHROSCOPY INJECTION BOTOX 300 UNITS CYSTOSCOPY Referral ID Status Reason Start Date Expiration Date Visits Re quested Visits Authorized [id number] 1 1 Encounter Details Date Type Department Care Team (Late st Contact Info) Description 05/24/2022 10:53 AM GENERAL 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 Anesthesia Event [facility] Operating Room [address] [place] [address] [place] [address] [place] [address] Tika Wright NP [address] [facility] [phone] [place] [address] Anesthesia Record Procedure Summary Procedure Name Responsible Anesthesiologist Anesthesia Start Time Anesthesia Stop Time INJECTION BOTOX 300 UNITS Iam Bagley MD 05/24/22 1053 05/24/22 1136 Events Date Time Event Comment 05/24/2022 0828 In Preop 0928 1028 AN Equip Check 1045 In Room 1053 An Start 1055 An Start Data 1059 An Induction The patient was reevaluated immediately before moderate or deep sedation use and before anesthesia induction. 1059 An LMA 1100 Anesthesia Ready 1106 Proc Start 1127 Proc Fin 1129 Airway Removed 1130 an stop data 1131 Out of Room 1135 Handoff to RN I completed my handoff [...] disposition at the time of handoff: PACU 1136 An Stop Meds Name Total Lidocaine IV 1% 50 mg propofol 200 mg ceFAZolin 2,000 mg Lactated Ringer's (LR) infusion 0 mL * Agents Name O2 N2O Air Sevoflurane Inspired Sevoflurane * Blood No blood administrations on file. Lines, Drains, and Airways Type Details Placement Removal RETIRED Surgical Site 05/06/18; 0753; Perineum; 07/04/22; 1357; Removal date unknown/not present on admission 05/06/18 0753 by Taya Peterson RN 07/04/22 1357 by Inga Mcgill, LILIA RETIRED Surgical Site 11/04/18; 0757; Pe nis; 07/04/22; 1357; Removal date unknown/not present on admission 11/04/18 0757 by Anjana Zaragoza 07/04/22 1357 by Inga Mcgill, LILIA RETIRED Wound 05/12/19; 1358; Othe r (Comment); Penis; 07/04/22; 1356; Removal date unknown/not present on admission 05/12/19 1358 by Beth Romero RN 07/04/22 1356 by Inga Mcgill, LILIA RETIRED Surgical Site 09/12/19; 1325; No ; Right, Lower; Back; injection site; 07/04/22; 1357; Removal date unknown/not present on admission 09/12/19 1325 by Naa Mahan RN 07/04/22 1357 by Inga Mcgill, LILIA RETIRED Surgical Site 05/04/20; 1445; No ; Left, Lower; Back; injection site; 07/04/22; 1357; Removal date unknown/not present on admission 05/04/20 1445 by Naa Mahan RN 07/04/22 1357 by Inga Mcgill RN RETIRED Surgical Site 06/13/21; 0808; No ; Penis; 12/12/22; 1529; Discharge 06/13/21 0808 by Vanita Garcia RN 12/12/22 1529 by Vanna Harris RN Oral/Nasal Airway Placement Date: 05/24/22; Removal Date: 05/24/22; Removal Time: 1138 05/24/22 0000 by Terri Mike RN 05/24/22 1138 by Terri Mike RN Peripheral IV Placement Date: 05/24/22; Placement Time: 0851; Catheter Size: 20 G; Orientation: Left; Location: Forearm; Removal Date: 05/24/22; Removal Time: 1306 05/24/22 0851 by Leila Rashid RN 05/24/22 1306 by Debbie Maier RN Supraglottic Airway Placement Date: 05/24/22; Placement Time: 1106 (created via procedure documentation); Mask Ventilation: 0; Size: 4; Insertion Attempts: 1; Removal Date: 05/24/22; Removal Time: 1129 05/24/22 1106 by Iam Bagley MD 05/24/22 1129 by Iam Bagley MD documented in this encounter Social History Tobacco [...] on file Legal Sex Male 3:12 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 Gender Identity Not on file Sexual Orientation Not on file 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 on file Not on file documented as of this encounter OR Notes * Anesthesia Postprocedure Evaluation - Iam Bagley MD - 05/24/2022 12:48 PM CST Patient: Doc Emery Procedure Summary Date: 05/24/22 Room / Location: [facility] 02 / [facility] Anesthesia Start: 1053 Anesthesia Stop: 1136 Procedures: INJECTION BOTOX 300 UNITS CYSTOSCOPY Diagnosis: Neurogenic bladder Urge urinary incontinence (Neurogenic bladder [N31.9]) (Urge urinary incontinence [N39.41]) Surgeons: Marquis Lopez MD Responsible Provider: Iam Bagley MD Anesthesia Type: general ASA Status: 3 Anesthesia Type: general Last vitals BP 126/71 Pulse 70 Temp (!) 35 ??C (95 ??F) Resp 16 SpO2 100% Anesthesia Post Evaluation Patient location during evaluation: PACU Patient participation: complete - patient participated Level of consciousness: fully awake Pain score: 0 Pain management: adequate Airway patency: adequate Evidence of recall: no Cardiovascular status: hemodynamically stable and acceptable Respiratory status: acceptable and room air Hydration status: acceptable Pt is: normothermic Nausea/Vomiting status: none No notable events documented. RAL 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 * Anesthesia Procedure Notes - Iam Bagley MD - 05/24/2022 11:05 AM CSTAssociated Order(s): Airway Airway Patient location: OR Urgency: elective Indications for airway management: anesthesia Difficult airway: no Staff: Supervising provider: Iam Bagley MD Placed by: Anesthesiologist: Iam Bagley MD Airway prep: Preoxygenated: yes Patient position: sniffing Mask difficulty assessment: 0 - not attempted Spontaneous ventilation during airway: absent Sedation level during airway: GA Final airway details: Final airway type: supraglottic airway Final supraglottic airway: IGel SGA size: 4 Number of attempts: 1 Ventilation between attempts: none RAL 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 * Anesthesia Preprocedure Evaluation - Iam Bagley MD - 05/09/2022 2:47 PM CST Images from the original note were not included. [facility] Preoperative Assessment and Planning Preoperative Evaluation Record Evaluation type/location: [facility] from [facility] Planned procedure site: [facility] OR Date: 05/09/22 NOTE: This note represents a preoperative evaluation initiated via telephone interview. NO PHYSICALEXAM was performed at the time of initial assessment. A physical exam may be added to this note anddocumented below. Anesthesia Evaluation Doc Emery is a 56 y.o. male Procedure(s): INJECTION BOTOX 300 UNITS CYSTOSCOPY Pre-Op Diagnosis Codes: * Neurogenic bladder [N31.9] * Urge urinary incontinence [N39.41] HISTORY HPI Doc Emery is a 56 y.o. male who is [...] 1999. + Hyperlipidemia (on statin) Pertinent negatives: AL ; CABG ; systolic/diastolic dysfunction w/o CHF [...] complete. Additional comments: Doc Emery is a 56 y.o. male who is [...] via telephone and in writing sent via [employer]. Patient verbalized understanding of preoperative plan. Preoperative [...] (ELAVIL) 25 mg tablet 05/07/2022 02/24/22 -- AishaNoam lechuga MD Take 2 tablets (50 mg total) [...] last 720 hours. Romain index score: 100 DOS Physical Exam Medical history, medications, and allergies reviewed. Attestation: This PAT evaluation Airway Exam: Mallampati: II Cervical ROM: FROM Cardiovascular Exam: Rate: regular Rhythm: regular Pulmonary Exam: LCTA, bilat Anesthesia Plan ASA 3 My patient is approved for the Anesthesia Controlled Medication protocol when under care of a FILTER TIP CATCHER Planned anesthesia: General Informed Consent: Anesthesia plan and risks discussed with patient. Consent and Attending signature: I and/or my designee have discussed the anesthesia plan, benefits, possible alternatives, parental presence at time of induction (if indicated), and clinically relevant risks that may include dental injury, unintentional awareness, and/or other complications. The patient and/or parent/legal guardian understand, and agree to proceed. All questions answered. RAL 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 RAL 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 documented in this encounter Plan of Treatment Not on file documented as of this encounter Procedures Procedure Name Priority Date/Time Associated Diagnosis Comments NH AN PROCEDURE PLACEHOLDER Routine 05/24/2022 11:05 AM GENERAL 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 NH AN ELECTIVE SUPRAGLOTTIC AIRWAY Routine 05/24/2022 11:05 AM GENERAL 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 documented in this encounter Results * NH AN ELECTIVE SUPRAGLOTTIC AIRWAY, NH AN PROCEDURE PLACEHOLDER (05/24/2022 11:05 AM GENERAL 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) Narrative Iam Bagley MD - 05/24/2022 11:05 AM GENERAL 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 Iam Bagley MD ? 05/24/2022 11:06 AM Airway Patient location: OR Urgency: elective Indications for airway management: anesthesia Difficult airway: no Staff: Supervising provider: Iam Bagley MD Placed by: Anesthesiologist: Iam Bagley MD Airway prep: Preoxygenated: yes Patient position: sniffing Mask difficulty assessment: 0 - not attempted Spontaneous ventilation during airway: absent Sedation level during airway: GA Final airway details: Final airway type: supraglottic airway Final supraglottic airway: IGel SGA size: 4 Number of attempts: 1 Ventilation between attempts: none Iam Bagley MD ANESTHESIA ORDERABLES Fin al Result documented in this encounter Visit Diagnoses Not on filedocumented in this encounter Administered Medications Inactive Administered Medications - up to 3 most recent administrations Medication Order MAR Action Action Date Dose Rate Site ceFAZolin (ANCEF) injection intravenous, Administer over 3 Minutes, As needed, Starting on Sun05/24/22 at 1054, Anesthesia Intra-op Given 05/24/2022 10:54 AM GENERAL 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 2,000 mg Lactated Ringer's (LR) infusion 30 mL/hr, intravenous, Continuous, Starting on Sun05/24/22 at 0900, For 4 hours, Pre-Op, Use a 500 ml bag for End Stage Renal Disease Patients. Discontinue if fluid still running once patient arrives to floor. Restarted 05/24/2022 10:53 AM GENERAL 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 New Bag 05/24/2022 8:51 AM GENERAL 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 30 mL/hr 30 mL/hr lidocaine PF (XYLOCAINE) 10 mg/mL (1 %) preservative free injection intravenous, As needed, Starting on Sun05/24/22 at 1059, Anesthesia Intra-op Given 05/24/2022 10:59 AM GENERAL 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 50 mg propofoL (DIPRIVAN) 10 mg/mL IV intravenous, As needed, Starting on Sun05/24/22 at 1059, Anesthesia Intra-op Given 05/24/2022 10:59 AM GENERAL 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 200 m g documented in this encounter Care Teams Silverware Supervisor Relationship Specialty Start Date End Date Mick Flowers MD PCP - General 05/14/17 documented as of this encounter
--- OUTSIDE RECORDS SUMMARY | 2024-06-29 00:28 | XMS_ITS | Encounter Summary ---
Author Organization [facility] Address [address] [place] [address] Phone Care Team Providers Care Home School Teacher Name Role Phone Mick Flowers MD Primary Care Provider [phone] Encounter Details Date Type Department Care Team (Late st Contact Info) Description 08/07/2022 Orders Only [facility] Urology [address] 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 Final ??Specimen Source: ?? Urine, catheter ??Specimen Quality: ??Adequate ??Result: ?Greater than 100,000 CFU/mL of Acinetobacter species ?Acinetobacter sp ?INT ?? RAFFY ?? AMP/SULBACTAM ?S ? <=2 ?? CEFEPIME ? S ? 2 ?? CEFTAZIDIME ?I ? 16 ?? CIPROFLOXACIN ?S ? <=0.25 ?? GENTAMICIN ? S ? <=1 ?? IMIPENEM ? S ? <=0.25 ?? LEVOFLOXACIN ? S ? 0.25 ?? PIP/TAZOBACTAM ? R ? >=128 ?? TOBRAMYCIN ? S ? <=1 ?? TRIMETHOPRIM/SULFA ? S ? <=20 S=Susceptible ??I=Intermediate ??R=Resistant ??* = Not Tested NR = Not Reported ??NN = See Therapy Comments Urine, bladder 08/23/2022 9: 17 AM MANAGER MEDIA 08/23/2022 9:18 AM MANAGER MEDIA Marquis Lopez MD LAB MICROBIOLOGY - GENERAL ORD ERABLES Final Result [facility] [address] [place] [address] documented in this encounter Visit Diagnoses Diagnosis Urinary tract infection without hematuria, site unspecified- Primary OAB (overactive bladder) Urge urinary incontinence Urge incontinence documented in this encounter Care Teams Home School Teacher Relationship Specialty Start Date End Date Mick Flowers MD PCP - General 05/14/17 documented as of this encounter
--- OUTSIDE RECORDS SUMMARY | 2024-06-29 00:29 | XMS_ITS | Encounter Summary ---
Author Organization [facility] Address [address] [facility] [address] [place] [address] Phone Care Team Providers Care Photoresist Printer Name Role Phone Mick Flowers MD Primary Care Provider [phone] Reason for Referral * MRI/CAT/PET Scan (Routine) - Closed Specialty Diagnoses / Procedures Referred By Contac t Referred To Contact Radiology Diagnoses Demyelinating disease of central nervous system (HCC) Multiple sclerosis (HCC) Encounter for medication monitoring Procedures MRI Thoracic Spine W Cherry Espinal MD [address] [place] [address] Phone: tel: fax: [address] [phone] Referral ID Status Reason Start Date Expiration Date Visits Re quested Visits Authorized [id number] Closed 09/16/2021 10/15/2021 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 * MRI/CAT/PET Scan (Routine) - Closed Specialty Diagnoses / Procedures Referred By Contac t Referred To Contact Radiology Diagnoses Demyelinating disease of central nervous system (HCC) Multiple sclerosis (HCC) Encounter for medication monitoring Procedures MRI Cervical Spine W Cherry Espinal MD [address] [place] [address] Phone: tel: fax: [address] [phone] Referral ID Status Reason Start Date Expiration Date Visits Re quested Visits Authorized [id number] Closed 09/16/2021 10/15/2021 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 * MRI/CAT/PET Scan (Routine) - Closed Specialty Diagnoses / Procedures Referred By Contac t Referred To Contact Radiology Diagnoses Demyelinating disease of central nervous system (HCC) Multiple sclerosis (HCC) Encounter for medication monitoring Procedures MRI Brain W WO Contrast Cherry Minor MD [address] [address] Phone: tel: fax: [address] [phone] Referral ID Status Reason Start Date Expiration Date Visits Re quested Visits Authorized [id number] Closed 09/16/2021 10/15/2021 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 Encounter Details Date Type Department Care Team (Late st Contact Info) Description 08/31/2021 Orders Only [facility] Multiple Sclerosis [address] [place] [address] Cherry Minor MD [address] [place] [address] Multiple sclerosis (CMS/HCC) (HCC) (Primary Dx); Demyelinating disease of central nervous system (HCC); Encounter for medication monitoring Social History Tobacco Use Types Packs/Day Years Used Date Smoking Tobacco: Never Smokeless Tobacco: Never Alcohol Use Standard Drinks/Week Comments Yes 0 (1 standard drink = 0.6 oz pur e alcohol) SOCIAL AUDIT-C Answer Date Recorded Q1: How often do you have a drink containing alc ohol? 2-4 times a month 06/13/2021 Q2: How many drinks containi ng alcohol do you have on a typical day when you are drinking? 1 or 2 06/13/2021 Q3: How often do you have si x or more drinks on one occasion? 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 Dictated by: Caleb Berg MD The radiology attending physician has personally reviewed this study, and had reviewed and/or edited this written report and agrees with it. Electronically signed by: Mayra Turner M.D., Ph.D. Narrative 10/05/2021 3:15 PM CDT EXAMINATION: Magnetic resonance imaging (MRI) of the brain and brainstem without and with contrast Magnetic resonance imaging (MRI) of the cervical and thoracic spine without and with contrast HISTORY: 56-year-old man with multiple sclerosis, with worsening symptoms, primarily gait instability. TECHNIQUE: Multiplanar multi-weighted MRI of the brain, brainstem, cervical, and thoracic spine was performed without and with intravenous contrast using the multiple sclerosis protocol. ?? Scanner: [facility] Field Strength: 3 T Contrast: Gadoterate Meglumine Contrast dose: 16.52 The post-contrast scan was performed approximately 5 minutes after IV contrast administration. COMPARISON: 08/09/2007 FINDINGS: BRAIN: On this MRI examination, there are approximately 10 of FLAIR/T2 hyperintense lesions. There are multiple foci of hyperintensity on FLAIR and T2-weighted images within the white matter compatible with demyelinating plaques of multiple sclerosis. This includes periventricular, callosal, cortical lesions. ?? New Brain T2 Lesions: 4 T1 Hypointense Black Holes : 0 Enhancing Brain Lesions: 0 T2/FLAIR Manlius of Disease: Mild, less than 10 typical lesions or 20 punctate lesions Parenchymal Volume Loss: Mild atrophy of the cerebellum, unchanged compared to 08/09/2007. Other Significant Findings: None The visualized portions of the optic nerves are normal. The scalp and calvarium are normal. The superior sagittal sinus demonstrates normal venous flow. The posterior fossa is unremarkable. The craniocervical junction is unremarkable. The pituitary and sella are normal. Diffusion weighted images reveal no hyperintensities to suggest acute cerebral infarction. The susceptibility weighted sequences reveal no evidence of acute or chronic hemorrhage. The ventricles are normal in size and position. The paranasal sinuses are normal. The visualized portions of the mastoids are unremarkable. The orbits appear normal. Normal flow voids are demonstrated in the carotid arteries and basilar artery. CERVICAL AND THORACIC SPINE: Diffuse patchy increased T2 signal throughout the cervical and thoracic spine, confirmed on the sagittal and axial sequences. On the prior examination dated 08/09/2007, there was a patchy increased signal of the spine on the sagittal sequence, with evaluation of the axial sequence was limited due to technique. It is unclear if there has been progression in disease in the spine, coronary findings are due to differences in technique. Specifically, there is a lesion at the T3 level of the right aspect and a lesion at the T12 level where there is diffuse increase in signal. Enhancing Spine Lesions: None The alignment of the cervical and thoracic spine is normal. Vertebral bodies demonstrate normal signal intensity on all sequences. The craniocervical junction is normal. Multilevel disc desiccation of the cervical spine. Multilevel degenerative disc and joint disease, most pronounced at C6-C7, progressed compared to the prior examination. No soft tissue abnormality is identified. Normal signal voids are present in the vertebral arteries. Procedure Note Mayra Turner MD PhD - 10/05/2021 EXAMINATION: Magnetic resonance imaging (MRI) of the brain and brainstem without and with contrast Magnetic resonance imaging (MRI) of the cervical and thoracic spine without and with contrast HISTORY: 56-year-old man with multiple sclerosis, with worsening symptoms, primarily gait instability. TECHNIQUE: Multiplanar multi-weighted MRI of the brain, brainstem, cervical, and thoracic spine was performed without and with intravenous contrast using the multiple sclerosis protocol. Scanner: [facility] Field Strength: 3 T Contrast: Gadoterate Meglumine Contrast dose: 16.52 The post-contrast scan was performed approximately 5 minutes after IV contrast administration. COMPARISON: 08/09/2007 FINDINGS: BRAIN: On this MRI examination, there are approximately 10 of FLAIR/T2 hyperintense lesions. There are multiple foci of hyperintensity on FLAIR and T2-weighted images within the white matter compatible with demyelinating plaques of multiple sclerosis. This includes periventricular, callosal, cortical lesions. New Brain T2 Lesions: 4 T1 Hypointense Black Holes : 0 Enhancing Brain Lesions: 0 T2/FLAIR Manlius of Disease: Mild, less than 10 typical lesions or 20 punctate lesions Parenchymal Volume Loss: Mild atrophy of the cerebellum, unchanged compared to 08/09/2007. Other Significant Findings: None The visualized portions of the optic nerves are normal. The scalp and calvarium are normal. The superior sagittal sinus demonstrates normal venous flow. The posterior fossa is unremarkable. The craniocervical junction is unremarkable. The pituitary and sella are normal. Diffusion weighted images reveal no hyperintensities to suggest acute cerebral infarction. The susceptibility weighted sequences reveal no evidence of acute or chronic hemorrhage. The ventricles are normal in size and position. The paranasal sinuses are normal. The visualized portions of the mastoids are unremarkable. The orbits appear normal. Normal flow voids are demonstrated in the carotid arteries and basilar artery. CERVICAL AND THORACIC SPINE: Diffuse patchy increased T2 signal throughout the cervical and thoracic spine, confirmed on the sagittal and axial sequences. On the prior examination dated 08/09/2007, there was a patchy increased signal of the spine on the sagittal sequence, with evaluation of the axial sequence was limited due to technique. It is unclear if there has been progression in disease in the spine, coronary findings are due to differences in technique. Specifically, there is a lesion at the T3 level of the right aspect and a lesion at the T12 level where there is diffuse increase in signal. Enhancing Spine Lesions: None The alignment of the cervical and thoracic spine is normal. Vertebral bodies demonstrate normal signal intensity on all sequences. The craniocervical junction is normal. Multilevel disc desiccation of the cervical spine. Multilevel degenerative disc and joint disease, most pronounced at C6-C7, progressed compared to the prior examination. No soft tissue abnormality is identified. Normal signal voids are present in the vertebral arteries. IMPRESSION: Multiple intracranial [...] C6-C7, progressed compared to the prior examination. Dictated by: Caleb Berg MD The radiology attending physician has personally reviewed this study, and had reviewed and/or edited this written report and agrees with it. Electronically signed by: Mayra Turner M.D., Ph.D. Cherry Minor MD IMG MRI PROCEDURES Final Result * MRI Cervical Spine W WO Contrast (10/05/2021 1:18 PM CDT) Anatomical Region Laterality Modality Spine N/A Magnetic Resonan ce 10/05/2021 2:48 PM CDT Impressions 10/05/2021 3:15 PM CDT Multiple intracranial and spinal white matter lesions [...] C6-C7, progressed compared to the prior examination. Dictated by: Caleb Berg MD The radiology attending physician has personally reviewed this study, and had reviewed and/or edited this written report and agrees with it. Electronically signed by: Mayra Turner M.D., Ph.D. Narrative 10/05/2021 3:15 PM CDT EXAMINATION: Magnetic resonance imaging (MRI) of the brain and brainstem without and with contrast Magnetic resonance imaging (MRI) of the cervical and thoracic spine without and with contrast HISTORY: 56-year-old man with multiple sclerosis, with worsening symptoms, primarily gait instability. TECHNIQUE: Multiplanar multi-weighted MRI of the brain, brainstem, cervical, and thoracic spine was performed without and with intravenous contrast using the multiple sclerosis protocol. ?? Scanner: [employer] Field Strength: 3 T Contrast: Gadoterate Meglumine Contrast dose: 16.52 The post-contrast scan was performed approximately 5 minutes after IV contrast administration. COMPARISON: 08/09/2007 FINDINGS: BRAIN: On this MRI examination, there are approximately 10 of FLAIR/T2 hyperintense lesions. There are multiple foci of hyperintensity on FLAIR and T2-weighted images within the white matter compatible with demyelinating plaques of multiple sclerosis. This includes periventricular, callosal, cortical lesions. ?? New Brain T2 Lesions: 4 T1 Hypointense Black Holes : 0 Enhancing Brain Lesions: 0 T2/FLAIR Manlius of Disease: Mild, less than 10 typical lesions or 20 punctate lesions Parenchymal Volume Loss: Mild atrophy of the cerebellum, unchanged compared to 08/09/2007. Other Significant Findings: None The visualized portions of the optic nerves are normal. The scalp and calvarium are normal. The superior sagittal sinus demonstrates normal venous flow. The posterior fossa is unremarkable. The craniocervical junction is unremarkable. The pituitary and sella are normal. Diffusion weighted images reveal no hyperintensities to suggest acute cerebral infarction. The susceptibility weighted sequences reveal no evidence of acute or chronic hemorrhage. The ventricles are normal in size and position. The paranasal sinuses are normal. The visualized portions of the mastoids are unremarkable. The orbits appear normal. Normal flow voids are demonstrated in the carotid arteries and basilar artery. CERVICAL AND THORACIC SPINE: Diffuse patchy increased T2 signal throughout the cervical and thoracic spine, confirmed on the sagittal and axial sequences. On the prior examination dated 08/09/2007, there was a patchy increased signal of the spine on the sagittal sequence, with evaluation of the axial sequence was limited due to technique. It is unclear if there has been progression in disease in the spine, coronary findings are due to differences in technique. Specifically, there is a lesion at the T3 level of the right aspect and a lesion at the T12 level where there is diffuse increase in signal. Enhancing Spine Lesions: None The alignment of the cervical and thoracic spine is normal. Vertebral bodies demonstrate normal signal intensity on all sequences. The craniocervical junction is normal. Multilevel disc desiccation of the cervical spine. Multilevel degenerative disc and joint disease, most pronounced at C6-C7, progressed compared to the prior examination. No soft tissue abnormality is identified. Normal signal voids are present in the vertebral arteries. Procedure Note Mayra Turner MD PhD - 10/05/2021 EXAMINATION: Magnetic resonance imaging (MRI) of the brain and brainstem without and with contrast Magnetic resonance imaging (MRI) of the cervical and thoracic spine without and with contrast HISTORY: 56-year-old man with multiple sclerosis, with worsening symptoms, primarily gait instability. TECHNIQUE: Multiplanar multi-weighted MRI of the brain, brainstem, cervical, and thoracic spine was performed without and with intravenous contrast using the multiple sclerosis protocol. Scanner: [facility] Field Strength: 3 T Contrast: Gadoterate Meglumine Contrast dose: 16.52 The post-contrast scan was performed approximately 5 minutes after IV contrast administration. COMPARISON: 08/09/2007 FINDINGS: BRAIN: On this MRI examination, there are approximately 10 of FLAIR/T2 hyperintense lesions. There are multiple foci of hyperintensity on FLAIR and T2-weighted images within the white matter compatible with demyelinating plaques of multiple sclerosis. This includes periventricular, callosal, cortical lesions. New Brain T2 Lesions: 4 T1 Hypointense Black Holes : 0 Enhancing Brain Lesions: 0 T2/FLAIR Manlius of Disease: Mild, less than 10 typical lesions or 20 punctate lesions Parenchymal Volume Loss: Mild atrophy of the cerebellum, unchanged compared to 08/09/2007. Other Significant Findings: None The visualized portions of the optic nerves are normal. The scalp and calvarium are normal. The superior sagittal sinus demonstrates normal venous flow. The posterior fossa is unremarkable. The craniocervical junction is unremarkable. The pituitary and sella are normal. Diffusion weighted images reveal no hyperintensities to suggest acute cerebral infarction. The susceptibility weighted sequences reveal no evidence of acute or chronic hemorrhage. The ventricles are normal in size and position. The paranasal sinuses are normal. The visualized portions of the mastoids are unremarkable. The orbits appear normal. Normal flow voids are demonstrated in the carotid arteries and basilar artery. CERVICAL AND THORACIC SPINE: Diffuse patchy increased T2 signal throughout the cervical and thoracic spine, confirmed on the sagittal and axial sequences. On the prior examination dated 08/09/2007, there was a patchy increased signal of the spine on the sagittal sequence, with evaluation of the axial sequence was limited due to technique. It is unclear if there has been progression in disease in the spine, coronary findings are due to differences in technique. Specifically, there is a lesion at the T3 level of the right aspect and a lesion at the T12 level where there is diffuse increase in signal. Enhancing Spine Lesions: None The alignment of the cervical and thoracic spine is normal. Vertebral bodies demonstrate normal signal intensity on all sequences. The craniocervical junction is normal. Multilevel disc desiccation of the cervical spine. Multilevel degenerative disc and joint disease, most pronounced at C6-C7, progressed compared to the prior examination. No soft tissue abnormality is identified. Normal signal voids are present in the vertebral arteries. IMPRESSION: Multiple intracranial [...] C6-C7, progressed compared to the prior examination. Dictated by: Caleb Berg MD The radiology attending physician has personally reviewed this study, and had reviewed and/or edited this written report and agrees with it. Electronically signed by: Mayra Turner M.D., Ph.D. Cherry Minor MD [facility] MRI PROCEDURES Final Result * MRI Brain W WO Contrast (10/05/2021 1:17 PM CDT) Anatomical Region Laterality Modality Head and Neck N/A Magnetic Resonan ce 10/05/2021 2:48 PM CDT Impressions 10/05/2021 3:15 PM CDT Multiple intracranial and spinal white matter lesions [...] C6-C7, progressed compared to the prior examination. Dictated by: Caleb Berg MD The radiology attending physician has personally reviewed this study, and had reviewed and/or edited this written report and agrees with it. Electronically signed by: Mayra Turner M.D., Ph.D. Narrative 10/05/2021 3:15 PM CDT EXAMINATION: Magnetic resonance imaging (MRI) of the brain and brainstem without and with contrast Magnetic resonance imaging (MRI) of the cervical and thoracic spine without and with contrast HISTORY: 56-year-old man with multiple sclerosis, with worsening symptoms, primarily gait instability. TECHNIQUE: Multiplanar multi-weighted MRI of the brain, brainstem, cervical, and thoracic spine was performed without and with intravenous contrast using the multiple sclerosis protocol. ?? Scanner: [facility] Field Strength: 3 T Contrast: Gadoterate Meglumine Contrast dose: 16.52 The post-contrast scan was performed approximately 5 minutes after IV contrast administration. COMPARISON: 08/09/2007 FINDINGS: BRAIN: On this MRI examination, there are approximately 10 of FLAIR/T2 hyperintense lesions. There are multiple foci of hyperintensity on FLAIR and T2-weighted images within the white matter compatible with demyelinating plaques of multiple sclerosis. This includes periventricular, callosal, cortical lesions. ?? New Brain T2 Lesions: 4 T1 Hypointense Black Holes : 0 Enhancing Brain Lesions: 0 T2/FLAIR Manlius of Disease: Mild, less than 10 typical lesions or 20 punctate lesions Parenchymal Volume Loss: Mild atrophy of the cerebellum, unchanged compared to 08/09/2007. Other Significant Findings: None The visualized portions of the optic nerves are normal. The scalp and calvarium are normal. The superior sagittal sinus demonstrates normal venous flow. The posterior fossa is unremarkable. The craniocervical junction is unremarkable. The pituitary and sella are normal. Diffusion weighted images reveal no hyperintensities to suggest acute cerebral infarction. The susceptibility weighted sequences reveal no evidence of acute or chronic hemorrhage. The ventricles are normal in size and position. The paranasal sinuses are normal. The visualized portions of the mastoids are unremarkable. The orbits appear normal. Normal flow voids are demonstrated in the carotid arteries and basilar artery. CERVICAL AND THORACIC SPINE: Diffuse patchy increased T2 signal throughout the cervical and thoracic spine, confirmed on the sagittal and axial sequences. On the prior examination dated 08/09/2007, there was a patchy increased signal of the spine on the sagittal sequence, with evaluation of the axial sequence was limited due to technique. It is unclear if there has been progression in disease in the spine, coronary findings are due to differences in technique. Specifically, there is a lesion at the T3 level of the right aspect and a lesion at the T12 level where there is diffuse increase in signal. Enhancing Spine Lesions: None The alignment of the cervical and thoracic spine is normal. Vertebral bodies demonstrate normal signal intensity on all sequences. The craniocervical junction is normal. Multilevel disc desiccation of the cervical spine. Multilevel degenerative disc and joint disease, most pronounced at C6-C7, progressed compared to the prior examination. No soft tissue abnormality is identified. Normal signal voids are present in the vertebral arteries. Procedure Note Mayra Turner MD PhD - 10/05/2021 EXAMINATION: Magnetic resonance imaging (MRI) of the brain and brainstem without and with contrast Magnetic resonance imaging (MRI) of the cervical and thoracic spine without and with contrast HISTORY: 56-year-old man with multiple sclerosis, with worsening symptoms, primarily gait instability. TECHNIQUE: Multiplanar multi-weighted MRI of the brain, brainstem, cervical, and thoracic spine was performed without and with intravenous contrast using the multiple sclerosis protocol. Scanner: [facility] Field Strength: 3 T Contrast: Gadoterate Meglumine Contrast dose: 16.52 The post-contrast scan was performed approximately 5 minutes after IV contrast administration. COMPARISON: 08/09/2007 FINDINGS: BRAIN: On this MRI examination, there are approximately 10 of FLAIR/T2 hyperintense lesions. There are multiple foci of hyperintensity on FLAIR and T2-weighted images within the white matter compatible with demyelinating plaques of multiple sclerosis. This includes periventricular, callosal, cortical lesions. New Brain T2 Lesions: 4 T1 Hypointense Black Holes : 0 Enhancing Brain Lesions: 0 T2/FLAIR Manlius of Disease: Mild, less than 10 typical lesions or 20 punctate lesions Parenchymal Volume Loss: Mild atrophy of the cerebellum, unchanged compared to 08/09/2007. Other Significant Findings: None The visualized portions of the optic nerves are normal. The scalp and calvarium are normal. The superior sagittal sinus demonstrates normal venous flow. The posterior fossa is unremarkable. The craniocervical junction is unremarkable. The pituitary and sella are normal. Diffusion weighted images reveal no hyperintensities to suggest acute cerebral infarction. The susceptibility weighted sequences reveal no evidence of acute or chronic hemorrhage. The ventricles are normal in size and position. The paranasal sinuses are normal. The visualized portions of the mastoids are unremarkable. The orbits appear normal. Normal flow voids are demonstrated in the carotid arteries and basilar artery. CERVICAL AND THORACIC SPINE: Diffuse patchy increased T2 signal throughout the cervical and thoracic spine, confirmed on the sagittal and axial sequences. On the prior examination dated 08/09/2007, there was a patchy increased signal of the spine on the sagittal sequence, with evaluation of the axial sequence was limited due to technique. It is unclear if there has been progression in disease in the spine, coronary findings are due to differences in technique. Specifically, there is a lesion at the T3 level of the right aspect and a lesion at the T12 level where there is diffuse increase in signal. Enhancing Spine Lesions: None The alignment of the cervical and thoracic spine is normal. Vertebral bodies demonstrate normal signal intensity on all sequences. The craniocervical junction is normal. Multilevel disc desiccation of the cervical spine. Multilevel degenerative disc and joint disease, most pronounced at C6-C7, progressed compared to the prior examination. No soft tissue abnormality is identified. Normal signal voids are present in the vertebral arteries. IMPRESSION: Multiple intracranial [...] C6-C7, progressed compared to the prior examination. Dictated by: Caleb Berg MD The radiology attending physician has personally reviewed this study, and had reviewed and/or edited this written report and agrees with it. Electronically signed by: Mayra Turner M.D., Ph.D. Cherry Minor MD IMG MRI PROCEDURES Final Result documented in this encounter Visit Diagnoses Diagnosis Multiple sclerosis (HCC)- Primary Multiple sclerosis Demyelinating disease of central nervous system (HCC) Unspecified demyelinating disease of central nervous system Encounter for medication monitoring Encounter for therapeutic drug monitoring Demyelinating disease of central nervous system (HCC) Unspecified demyelinating disease of central nervous system Multiple sclerosis (HCC) Multiple sclerosis Encounter for medication monitoring Encounter for therapeutic drug monitoring documented in this encounter Care Teams Photoresist Printer Relationship Specialty Start Date End Date Mick Flowers MD PCP - General 05/14/17 documented as of this encounter
--- OUTSIDE RECORDS SUMMARY | 2024-06-29 00:29 | XMS_ITS | Encounter Summary ---
Author Organization [facility] Address [address] [place] [address] Phone Care Team Providers Care Material Handler Floorperson Name Role Phone Mick Flowers MD Primary Care Provider Encounter Details Date Type Department Care Team (Late st Contact Info) Description 09/16/2021 Orders Only [facility] Urology [address] [facility] [address] [place] [address] Marquis Lopez MD [address] [facility] [address] [place] [address] Urinary tract infection without hematuria, site unspecified (Primary Dx); Neurogenic bladder Social History Tobacco Use Types [...] on file 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 Gender Identity Not on file Sexual Orientation Not on file 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 Final ??Specimen Source: ?? Urine, catheter ??Specimen Quality: ??Adequate ??Result: ?Mixed genital padmini isolated. These superficial ? bacteria are not indicative of a urinary tract ? infection. No further organism identification is ? warranted on this specimen. If clinically ? indicated, recollect clean-catch, mid-stream ? urine and transfer immediately to Urine Culture ? Transport Tube. Urine, bladder 11/08/2021 11/08/2021 9:37 AM CDT us Marquis Lopez MD LAB MICROBIOLOGY - GENERAL ORD ERABLES Final Result [facility] [address] [place] [address] documented in this encounter Visit Diagnoses Diagnosis Urinary tract infection without hematuria, site unspecified- Primary Neurogenic bladder Neurogenic bladder, NOS documented in this encounter Care Teams Material Handler Floorperson Relationship Specialty Start Date End Date Mick Flowers MD PCP - General 05/14/17 documented as of this encounter
--- OUTSIDE RECORDS SUMMARY | 2024-06-29 00:29 | XMS_ITS | Encounter Summary ---
Author Organization [facility] Address [address] [place] [address] Phone Care Team Providers Care Taxicab Dispatcher Name Role Phone Mick Flowers MD Primary Care Provider [phone] Encounter Details Date Type Department Care Team (Late st Contact Info) Description 09/27/2021 Telephone [facility] Russell Mcgill CPhT Social History Tobacco Use Types Packs/Day Years Used Date Smoking Tobacco: Never Smokeless Tobacco: Never Alcohol Use Standard Drinks/Week Comments Yes 0 (1 standard drink = 0.6 oz pur e alcohol) SOCIAL AUDIT-C Answer Date Recorded Q1: How often do you have a drink containing alc ohol? 2-3 times a week 11/23/2021 Q2: How many drinks containi ng alcohol do you have on a typical day when you are drinking? 1 or 2 11/23/2021 Q3: How often do you have si x or more drinks on one occasion? 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 Referral Required: NO Benefit exclusion: NO Authorization: [id number] Approval expiration date: 10/23/2021 - 10/22/2022 Comments: Benefits verified RTE @ [employer] website. BCBS . Coverage active effective 06/25/2021. ID# [id number]. 5000 Deductible (zero applied); 7150 Out of Pocket (169.59 applied); 90/10 Co-Insurance; No Copay; Referral required; Pre-Cert required @ [facility] . CPT 64405 no Pre-Cert required. S/W Mary Kay Avila @ [facility] . Pre-Cert faxed to . Pending case# [id number]. JL 09/27/2021 Benefits verified online @ [employer] website. [employer] . Coverage active effective 06/25/2020. ID# [id number]. [employer] secondary to BCBS. No Pre-Cert required. JL 09/27/2021 Fax received from [facility] scanned into [employer]. Pre-Cert J0585 Botox approved @ [facility]. Approval start dates 10/23/2021 - 10/22/2022. Auth# [id number]. [facility] . JL 09/28/2021 S/W Sol. Ponce @ [employer] . [employer] secondary to BCBS - no authorization required. 5000 Max Benefit for assistance with primary co-pay/co-insurance. Call ref# Malinda Ponce 09/28/2021. JL 09/28/2021 S/W Nixon Ponce @ [facility] . Facility changed to [facility]. J0585 BOTOX approved @ [facility]. Approval dates 10/23/2021 - 10/22/2022. Auth# [id number]. Call ref# Nixon Ponce 11/03/2021 Auth# [id number]. JL 11/03/2021 ----- Message from Terri Nicholas LPN sent at 09/02/2021 10:56 AM MECHATRONICS ENGINEER ----- Regarding: Pre-d for surgery Requesting Pre-Determination Benefits. ORDERING PROVIDER: Dr. Juice Lopez PROCEDURE DESCRIPTION: Botox 300 CPT CODE:65865 DIAGNOSIS CODE: N32.[address] OF SERVICE: OR -Clinic -OR -Other ADMIT STATUS:OP TENTATIVE DATE OF SERVICE: TBD OTHER: I sent over a request for approval on 08/29/2021 but he now has / [place]. It has been updated in his chart. documented in this encounter Plan of Treatment Not on file documented as of this encounter Visit Diagnoses Not on filedocumented in this encounter Care Teams Taxicab Dispatcher Relationship Specialty Start Date End Date Mick Flowers MD PCP - General 05/14/17 documented as of this encounter
--- OUTSIDE RECORDS SUMMARY | 2024-06-29 00:29 | XMS_ITS | Encounter Summary ---
Author Organization 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 [employer] [facility] . Coverage active effective 06/25/2020. ID# [id number]. 150 Deductible (133.65 applied); 3000 Out of Pocket (313 applied); No Co-Insurance; No Copay; Referral required; Pre-Cert required @ [facility] . Pre-D initiated J0585 BOTOX clinical uploaded @ [facility] website. [facility] . JL 03/13/2022 Online status check @ [facility] website. Pre-Cert BOTOX approved @ [facility]. 300 units x 4 visits. J0585; [id number]. Auth# [id number]. [facility] . JL 04/06/2022 ----- Message from Terri Nicholas LPN sent at 02/13/2022 3:49 PM CDT ----- Regarding: pre-d for surgery Requesting Pre-Determination Benefits. ORDERING PROVIDER: Dr Juice Lopez PROCEDURE DESCRIPTION: Botox 300 units CPT CODE: 38329 DIAGNOSIS CODE:N31.[address] OF SERVICE: OR -Clinic -OR -Other ADMIT STATUS:OP TENTATIVE DATE OF SERVICE: May 2022 OTHER: [employer] TECH documented in this encounter Plan of Treatment Not on file documented as of this encounter Visit Diagnoses Not on filedocumented in this encounter Care Teams Database Designer Relationship Specialty Start Date End Date Mick Flowers MD PCP - General 05/14/17 documented as of this encounter
--- OUTSIDE RECORDS SUMMARY | 2024-06-29 00:29 | XMS_ITS | Encounter Summary ---
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 He prefers somewhere near [facility] He is falling (a lot) and he appears to need a cane on our exam. Thanks cherry documented in this encounter Plan of Treatment Not on file documented as of this encounter Visit Diagnoses Not on filedocumented in this encounter Care Teams Constitutional Law Professor Relationship Specialty Start Date End Date Mick Flowers MD PCP - General 05/14/17 documented as of this encounter
--- OUTSIDE RECORDS SUMMARY | 2024-06-29 00:29 | XMS_ITS | Encounter Summary ---
Author Organization [facility] Address [address] [place] [address] Phone Care Team Providers Care Hazmat Technician Name Role Phone Mick Flowers MD Primary Care Provider [phone] Reason for Visit * Reason Onset Date Comments Forms 09/20/2021 Encounter Details Date Type Department Care Team (Late st Contact Info) Description 09/20/2021 Documentation [facility] Multiple Sclerosis [address] [place] [phone] Manuela Almanzar RMA Forms Social History Tobacco Use Types Packs/Day [...] on file 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 PROSPER Jacob documented in this encounter Plan of Treatment Not on file documented as of this encounter Visit Diagnoses Not on filedocumented in this encounter Care Teams Hazmat Technician Relationship Specialty Start Date End Date Mick Flowers MD PCP - General 05/14/17 documented as of this encounter
--- OUTSIDE RECORDS SUMMARY | 2024-06-29 00:29 | XMS_ITS | Encounter Summary ---
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
--- OUTSIDE RECORDS SUMMARY | 2024-06-29 00:29 | XMS_ITS | Encounter Summary ---
Author Organization [facility] Address [address] [place] [address] Phone Care Team Providers Care Obstetrical Anesthesiologist Name Role Phone Mick Flowers MD Primary Care Provider [phone] Encounter Details Date Type Department Care Team (Late st Contact Info) Description 2021 Orders Only [facility] Multiple Sclerosis [address] [place] [address] [place] [address] Cherry Minor MD [address] [place], [place] [id number] Multiple sclerosis (CMS/HCC) (HCC) (Primary Dx) Social [...] on file 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 Gender Identity Not on file Sexual Orientation Not on file 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 on file Not on file documented as of this encounter Plan of Treatment Not on file documented as of this encounter Procedures Procedure Name Priority Date/Time Associated Diagnosis Comments CBC WITH AUTO DIFFERENTIAL Routine 10/10/2021 9:25 AM CDT Multiple sclerosis (CMS/HCC) (HCC) CREATINE KINASE (CK), TOTAL Routine 10/10/2021 9:25 AM CDT Multiple sclerosis (CMS/HCC) (HCC) COMPREHENSIVE METABOLIC PANEL Routine 10/10/2021 9:25 AM CDT Multiple sclerosis (CMS/HCC) (HCC) documented in this encounter Results * Creatine kinase (CK), total (10/10/2021 9:25 AM CDT) CK 117 44 - 196 U/L [facility] Blood specimen (specimen) 10/10/2021 9:25 AM CDT 10/10/2021 9:25 AM CDT Narrative [facility] - 10/11/2021 2:58 AM CDT FASTING:YES FASTING: YES us Cherry Minor MD LAB BLOOD ORDERABLES Final Resu lt [facility] [address] [place] [address] * Comprehensive metabolic panel (10/10/2021 9:25 AM CDT) Glucose 88 65 - 99 mg/dL [facility] Comment: ? Fasting reference interval BUN 13 7 - 25 mg/dL [facility] Creatinine 0.86 0.70 - 1.33 mg/dL [facility] Comment: For patients >49 years of age, the reference limit for Creatinine is approximately 13% higher for people identified as -Swazi. eGFR NON-AFR. GHANAIAN 96 > OR = 60 mL/min/1 .73m2 [facility] EGFR 112 > OR = 60 mL/min/1 .73m2 [facility] BUN/creat ratio NOT APPLICABLE 6 - 22 (calc) [facility] Sodium 139 135 - 146 mmol/L [facility] Potassium, pl 4.3 3.5 - 5.3 mmol/L [facility] Chloride 102 98 - 110 mmol/L [facility] CO2 28 20 - 32 mmol/L [facility] Calcium 10.3 8.6 - 10.3 mg/dL [facility] Protein, sr 7.1 6.1 - 8.1 g/dL [facility] Albumin 4.7 3.6 - 5.1 g/dL [facility] GLOBULIN 2.4 1.9 - 3.7 g/dL (calc) [facility] Alb/glob ratio 2.0 1.0 - 2.5 (calc) [facility] Bilirubin, total 0.6 0.2 - 1.2 mg/dL [facility] Alk phos 105 35 - 144 U/L [facility] AST 22 10 - 35 U/L [facility] ALT (SGPT) 37 9 - 46 U/L [facility] Blood specimen (specimen) 10/10/2021 9:25 AM CDT 10/10/2021 9:25 AM CDT Narrative [facility] - 10/11/2021 2:58 AM CDT FASTING:YES FASTING: YES us Cherry Minor MD LAB BLOOD ORDERABLES Final Resu lt [facility] [address] [place] [address] * CBC with auto differential (10/10/2021 9:25 AM CDT) WBC 4.6 3.8 - 10.8 Thousand/u L [facility] RBC, POC 5.11 4.20 - 5.80 Million/uL [facility] Hgb 15.0 13.2 - 17.1 g/dL [facility] Hct 46.7 38.5 - 50.0 % [facility] MCV 91.4 80.0 - 100.0 fL [facility] MCH 29.4 27.0 - 33.0 pg [facility] MCHC 32.1 32.0 - 36.0 g/dL [facility] Rdw 13.1 11.0 - 15.0 % [facility] Platelets 198 140 - 400 Thousand/u L [facility] MPV 11.3 7.5 - 12.5 fL [facility] Neutrophils, abs 2,337 1,500 - 7,800 cells/uL [facility] Lymphocytes, abs 1,385 850 - 3,900 cells/uL [facility] Monocyte abs 437 200 - 950 cells/uL [facility] Eosinophils, abs 400 15 - 500 cells/uL [facility] Basophils, abs 41 0 - 200 cells/uL [facility] Neutrophils 50.8 % [facility] Lymphocyte pct 30.1 % [facility] Monocytes 9.5 % [facility] Eosinophils 8.7 % [facility] Basophils 0.9 % [facility] Blood specimen (specimen) 10/10/2021 9:25 AM CDT 10/10/2021 9:25 AM CDT Narrative [facility] - 10/11/2021 2:58 AM CDT FASTING:YES FASTING: YES us Cherry Minor MD LAB BLOOD ORDERABLES Final Resu lt [facility] [address] [place] [address] documented in this encounter Visit Diagnoses Diagnosis Multiple sclerosis (HCC)- Primary Multiple sclerosis documented in this encounter Care Teams Obstetrical Anesthesiologist Relationship Specialty Start Date End Date Mick Flowers MD PCP - General 05/14/17 documented as of this encounter
--- OUTSIDE RECORDS SUMMARY | 2024-06-29 00:29 | XMS_ITS | Encounter Summary ---
Author Organization [facility] Address [address] [place] [address] Phone Care Team Providers Care Lockstitch Front Edge Tape Sewer Name Role Phone Mick Flowers MD Primary Care Provider [phone] Encounter Details Date Type Department Care Team (Late st Contact Info) Description 10/31/2021 Orders Only [facility] Orthopedic [facility]) - [facility] [address] [place] [address] Walter Rojas MD [address] [place] [address] Lumbar spondylosis (Primary Dx); Mechanical low back pain Social History Tobacco [...] on file 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 Inquires about repeating the injection which he found helpful at that time. Recommend getting physical therapy started and scheduling follow up in the near future. Referral entered for physical therapy. documented in this encounter Plan of Treatment Not on file documented as of this encounter Visit Diagnoses Diagnosis Lumbar spondylosis- Primary Lumbosacral spondylosis without myelopathy Mechanical low back pain Lumbago documented in this encounter Care Teams Lockstitch Front Edge Tape Sewer Relationship Specialty Start Date End Date Mick Flowers MD PCP - General 05/14/17 documented as of this encounter
--- OUTSIDE RECORDS SUMMARY | 2024-06-29 00:29 | XMS_ITS | Encounter Summary ---
Author Organization [facility] Address [address] [place] [address] Phone Care Team Providers Care Ghost Writer Name Role Phone Mick Flowers MD Primary Care Provider [phone] Encounter Details Date Type Department Care Team (Late st Contact Info) Description 11/14/2021 Documentation [facility] Gastroenterology [facility] Advanced Medicine [address]th [place] [address] [place] [phone] Zuleyma Neely RN Social History Tobacco Use Types Packs/Day Years Used Date Smoking Tobacco: Never Smokeless Tobacco: Never Alcohol Use Standard Drinks/Week Comments Yes 0 (1 standard drink = 0.6 oz pur e alcohol) SOCIAL AUDIT-C Answer Date Recorded Q1: How often do you have a drink containing alc ohol? 2-3 times a week 11/08/2021 Q2: How many drinks containi ng alcohol do you have on a typical day when you are drinking? 1 or 2 11/08/2021 Q3: How often do you have si x or more drinks on one occasion? 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 Fecal zain protectin still pending. * Zuleyma Neely RN - 11/14/2021 10:40 AM CDT Per lab TTG IGA needs to be redrawn due to lab error. Message sent to MD to verify patient should have redrawn. Normal fecal calprotectin result received and sent for scanning into [employer]. documented in this encounter Plan of Treatment Not on file documented as of this encounter Visit Diagnoses Not on filedocumented in this encounter Care Teams Ghost Writer Relationship Specialty Start Date End Date Mick Flowers MD PCP - General 05/14/17 documented as of this encounter
--- OUTSIDE RECORDS SUMMARY | 2024-06-29 00:29 | XMS_ITS | Encounter Summary ---
Author Organization 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 Gender Identity Not on file Sexual Orientation Not on file 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 on file Not on file documented as of this encounter Ordered Prescriptions Prescription Sig Dispense Quantity Refills Last Filled Start Date End Date simvastatin (ZOCOR) 80 mg tablet Take 1 tablet (80 mg total) by mouth nightly 30 tablet 11 2021 2 documented in this encounter Plan of Treatment Not on file documented as of this encounter Visit Diagnoses Not on filedocumented in this encounter Discontinued Medications Medication Sig Discontinue Reason Start Date End Da te simvastatin (ZOCOR) 80 mg tablet Take 1 tablet (80 mg total) by mouth nightly Alternate therapy 09/13/2021 2021 simvastatin (ZOCOR) 40 mg tablet Take 1 tablet (40 mg total) by mouth nightly Alternate therapy 09/13/2021 2021 atorvastatin (LIPITOR) 20 mg tabletIndications:hyperl ipidemia Take 20 mg by mouth every morning Alternate therapy 2021 documented as of this encounter Care Teams Fruit Harvester Machine Operator Relationship Specialty Start Date End Date Mick Flowers MD PCP - General 05/14/17 documented as of this encounter
--- OUTSIDE RECORDS SUMMARY | 2024-06-29 00:29 | XMS_ITS | Encounter Summary ---
Author Organization [facility] Address [address] [place] [address] Phone Care Team Providers Care Belt Loop Machine Operator Name Role Phone Mick Flowers MD Primary Care Provider [phone] Encounter Details Date Type Department Care Team (Late st Contact Info) Description 10/05/2021 Documentation [facility] Multiple Sclerosis [address] [place] [address] [place] [id number] Cherry Minor MD [address] [place] [address] Social History Tobacco Use Types Packs/Day Years [...] on file 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
--- OUTSIDE RECORDS SUMMARY | 2024-06-29 00:29 | XMS_ITS | Encounter Summary ---
Author Organization [facility] Address [address] [place] [address] Care Team Providers Care Pattern Molder Name Role Phone Mick Flowers MD Primary Care Provider [phone] Reason for Referral * MRI/CAT/PET Scan (Routine) - Closed Specialty Diagnoses / Procedures Referred By Contac t Referred To Contact Radiology Diagnoses Demyelinating disease of central nervous system (HCC) Multiple sclerosis (HCC) Encounter for medication monitoring Procedures MRI Thoracic Spine W WO Contrast Cherry Minor MD [address] [address] Phone: tel: fax: [address] [phone] Referral ID Status Reason Start Date Expiration Date Visits Re quested Visits Authorized [id number] Closed 09/16/2021 10/15/2021 1 1 * MRI/CAT/PET Scan (Routine) - Closed Specialty Diagnoses / Procedures Referred By Contac t Referred To Contact Radiology Diagnoses Demyelinating disease of central nervous system (HCC) Multiple sclerosis (HCC) Encounter for medication monitoring Procedures MRI Cervical Spine W WO Cherry Starks MD [address] [address] Phone: tel: fax: [address] [phone] Referral ID Status Reason Start Date Expiration Date Visits Re quested Visits Authorized [id number] Closed 09/16/2021 10/15/2021 1 1 * MRI/CAT/PET Scan (Routine) - Closed Specialty Diagnoses / Procedures Referred By Christy t Referred To Contact Radiology Diagnoses Demyelinating disease of central nervous system (HCC) Multiple sclerosis (HCC) Encounter for medication monitoring Procedures MRI Brain W WO Contrast Cherry Minor MD [address] [place] [address] Phone: tel: fax: [address] [phone] Referral ID Status Reason Start Date Expiration Date Visits Re quested Visits Authorized [id number] Closed 09/16/2021 10/15/2021 1 1 Reason for Visit * MRI/CAT/PET Scan (Routine) - Closed Specialty Diagnoses / Procedures Referred By Contac t Referred To Contact Radiology Diagnoses Demyelinating disease of central nervous system (HCC) Multiple sclerosis (HCC) Encounter for medication monitoring Procedures MRI Brain W WO Contrast Cherry Minor MD [address] [place] [address] Phone: tel: fax: [address] [phone] Referral ID Status Reason Start Date Expiration Date Visits Re quested Visits Authorized [id number] Closed 09/16/2021 10/15/2021 1 1 Encounter Details Date Type Department Care Team (Latest Contact Info) Description 10/05/2021 11:30 AM CDT - 10/05/2021 11:59 PM CDT Hospital Encounter [facility] Radiology [address] [place] [id number] Cherry Minor MD [address] [place] [address] Demyelinating disease of central nervous system (HCC); Multiple sclerosis ([facility]/HCC) (HCC); Encounter for medication monitoring Discharge Disposition: Discharge to home or self [...] file 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 Gender Identity Not on file Sexual Orientation Not on file 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 on file Not on file documented as of this encounter Medications at Time of Discharge felodipine (PLENDIL) 5 mg 24 hr tabletIndication s:hypertension Take 1 tablet (5 mg total) by mouth 2 (two) times a day 07/19/2007 hydroCHLOROthiaz martha (HYDRODIURIL) 25 mg tabletIndication s:hypertension Take 1 tablet (25 mg total) by mouth every morning ALPRAZolam (XANAX) 0.25 mg tabletIndication s:anxiety Take 1 tablet (0.25 mg total) by mouth nightly as needed for sleep 1 06/27/2018 3 aspirin 81 mg enteric coated tabletIndication s:prevention of thrombosis Take 81 mg by mouth nightly 2 atorvastatin (LIPITOR) 40 mg tablet 09/17/2021 2 cholecalciferol (VITAMIN D-3) 1,000 unit Take 1,000 Units by mouth every morning 2 EDEX 20 mcg injection 20 mcg by intracavity route as needed for erectile dysfunction 06/11/2019 3 famotidine (PEPCID) 10 mg tabletIndication s:Dyspepsia Take 10 mg by mouth as needed 2 losartan (COZAAR) 100 mg tabletIndication s:hypertension Take 1 tablet (100 mg total) by mouth every morning 3 POTASSIUM CHLORIDE ER 20 mEq CR tabletIndication s:supplement Take 1 tablet (20 mEq total) by mouth every morning 5 04/23/2018 4 simvastatin (ZOCOR) 40 mg tablet Take 1 tablet (40 mg total) by mouth nightly 30 tablet 11 09/26/2021 2 urea (CARMOL) 40 % creamIndications :Hyperkeratosis Apply 1 application topically every morning 08/05/2020 3 documented as of this encounter Discharge Disposition Disposition Code Departure Means Destination Discharge to home or self care documented in this encounter Plan of Treatment Not on file documented as of this encounter Procedures Procedure Name Priority Date/Time Associated Diagnosis Comments MRI THORACIC SPINE W WO CONTRAST Schedule Routine, Read Routine (OP Routine) 10/05/2021 1:20 PM CDT Demyelinating disease of central nervous system (HCC) Multiple sclerosis (CMS/HCC) (HCC) Encounter for medication monitoring MRI CERVICAL SPINE W WO CONTRAST Schedule Routine, Read Routine (OP Routine) 10/05/2021 1:18 PM CDT Demyelinating disease of central nervous system (HCC) Multiple sclerosis (CMS/HCC) (HCC) Encounter for medication monitoring MRI BRAIN W WO CONTRAST Routine 10/05/2021 1:17 PM CDT Demyelinating disease of central nervous system (HCC) Multiple sclerosis (CMS/HCC) (HCC) Encounter for medication monitoring documented in this encounter Results * MRI Thoracic Spine [...] using the multiple sclerosis protocol. ?? Scanner: [facility] Field Strength: 3 T Contrast: Gadoterate [...] : 0 Enhancing Brain Lesions: 0 T2/FLAIR [place] of Disease: Mild, less than 10 typical [...] contrast using the multiple sclerosis protocol. Scanner: [facility] Field Strength: 3 T Contrast: Gadoterate Meglumine [...] : 0 Enhancing Brain Lesions: 0 T2/FLAIR [place] of Disease: Mild, less than 10 typical [...] Mayra Turner M.D., Ph.D. Cherry Minor MD IM MRI PROCEDURES Final Result * MRI Cervical [...] using the multiple sclerosis protocol. ?? Scanner: [facility] Field Strength: 3 T Contrast: Gadoterate [...] : 0 Enhancing Brain Lesions: 0 T2/FLAIR [place] of Disease: Mild, less than 10 typical [...] contrast using the multiple sclerosis protocol. Scanner: [facility] Field Strength: 3 T Contrast: Gadoterate Meglumine [...] : 0 Enhancing Brain Lesions: 0 T2/FLAIR [place] of Disease: Mild, less than 10 typical [...] IMG MRI PROCEDURES Final Result * MRI Brain [...] using the multiple sclerosis protocol. ?? Scanner: [facility] Field Strength: 3 T Contrast: Gadoterate [...] : 0 Enhancing Brain Lesions: 0 T2/FLAIR [place] of Disease: Mild, less than 10 typical [...] contrast using the multiple sclerosis protocol. Scanner: [facility] Field Strength: 3 T Contrast: Gadoterate [...] : 0 Enhancing Brain Lesions: 0 T2/FLAIR [place] of Disease: Mild, less than 10 typical [...] Mayra Turner M.D., Ph.D. Cherry Minor MD [facility] MRI PROCEDURES Final Result documented in this encounter Visit Diagnoses Diagnosis Demyelinating disease of central nervous system (HCC) Unspecified demyelinating disease of central nervous system Multiple sclerosis (HCC) Multiple sclerosis Encounter for medication monitoring Encounter for therapeutic drug monitoring documented in this encounter Administered Medications Inactive Administered Medications - up to 3 most recent administrations Medication Order MAR Action Action Date Dose Rate Site gadoterate meglumine 0.5 mmol/mL injection 17 mL 17 mL, intravenous, Once in imaging, contrast, Starting on Sun10/05/21 at 1140, For 1 dose Contrast Given 10/05/2021 1:09 PM CDT 17 mL Right Antecubital documented in this encounter Orders Medications Ordered That Julio Cesar ht Not Have Been Administered Count Last Ordered Date First Ordered Date gadoterate meglumine 0.5 mmo l/mL injection 17 mL 1 10/05/2021 documented in this encounter Care Teams Pattern Molder Relationship Specialty Start Date End Date Mick Flowers MD PCP - General 05/14/17 documented as of this encounter
--- OUTSIDE RECORDS SUMMARY | 2024-06-29 00:29 | XMS_ITS | Encounter Summary ---
Author Organization [facility] Address [address] [place] [address] Phone Care Team Providers Care Feed Project Engineer Name Role Phone Mick Flowers MD Primary Care Provider [phone] Encounter Details Date Type Department Care Team (Late st Contact Info) Description 09/13/2021 Telephone [facility] Multiple Sclerosis [address] [facility] [address] [place] [address] [place] [id number] Cherry Minor MD [address] [place], [place] [id number] Social History Tobacco Use Types Packs/Day Years [...] on file 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 Will fax over denial letter. 09/26 Called [facility] at [phone] to f/u on denial letter. 09/29 Called to f/u on denial. [employer] does not require a PA. Paid claim on 09/26/21 documented in this encounter Plan of Treatment Not on file documented as of this encounter Visit Diagnoses Not on filedocumented in this encounter Care Teams Feed Project Engineer Relationship Specialty Start Date End Date Mick Flowers MD PCP - General 05/14/17 documented as of this encounter
--- OUTSIDE RECORDS SUMMARY | 2024-06-29 00:29 | XMS_ITS | Encounter Summary ---
Author Organization [facility] Healthcare Address [address] [place] [address] Care Team Providers Care Hooker Machine Tender Name Role Phone Mick Flowers MD Primary Care Provider [phone] Reason for Visit * Auth/Cert Specialty Diagnoses / Procedures Referred By Contac t Referred To Contact Diagnoses Neurogenic bladder Neurogenic bladder [N31.9] Procedures [place] CYSTOURETHROSCOPY INJ CHEMODENERVATION BLADDER [place] CYSTOURETHROSCOPY INJECTION BOTOX 300 UNITS CYSTOSCOPY Referral ID Status Reason Start Date Expiration Date Visits Re quested Visits Authorized [id number] 1 1 Encounter Details Date Type Department Care Team (Late st Contact Info) Description 11/23/2021 11:15 AM CDT - 11/23/2021 12:30 PM CDT Surgery [facility] Operating Room [address] [place] [address] Marquis Lopez MD [address] [facility] [address] [place] [address] INJECTION BOTOX 300 UNITS Surgery Details Date/Time Status Location OR Service Patient Class Case Cl ass Case Type Trauma Case? 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 on file Not on file documented as of this encounter Last Filed Vital Signs Vital Sign Reading Time Taken Comments Blood Pressure 129/65 11/23/2021 12:30 PM CDT Pulse 60 11/23/2021 12:30 PM CDT Temperature 36 ??C (96.8 ??F) 11/23/2021 12:30 PM CDT Respiratory Rate 17 11/23/2021 12:30 PM CDT Oxygen Saturation 99% 11/23/2021 12:30 PM CDT Inhaled Oxygen Concentration - - Weight 80.7 kg (178 lb) 11/23/2021 9:06 AM CDT Height 177.8 cm (5' 10 ) 11/23/2021 9:06 AM CDT Body Mass Index 25.54 11/23/2021 9:06 AM CDT documented in this encounter Discharge Instructions * Discharge Instructions* Marc Rodriguez MD - 11/23/2021 11:00 AM CDT Discharge Instructions Diagnosis: Overactive Bladder Surgery performed: Cystoscopy, Bladder Botox Wound: None. You may see some blood in your urine as well as small clots. This is to be expected. New medications: You may take Tylenol or pyridium (AZO) as needed for pain. These medications are over the counter Diet: Resume usual diet. Keep well hydrated to flush any blood out of your urine. Activity: Activity as tolerated. Follow up: Future Appointments Date Time Provider Department Center 02/14/2022 9:00 AM Cherry Minor MD [facility] 07/03/2022 3:45 PM Noam Leonard MD GI [id number] [facility] Contact your doctor if: - Fever over 100.8F - Pain uncontrolled by prescribed medications - Nausea/vomiting - Persistent pain greater than 2 weeks - Unable to urinate Sunday through Sunday, 8 AM to 4:30 PM, call [phone] and ask for a member of your doctor's team. For urgent matters after 6:00 PM during the week, on weekends and holidays, call [phone] and ask to have the Urology Filling Technician Physician paged for you. documented in this encounter Medications at Time of Discharge famotidine (PEPCID) 20 mg tabletIndications: Dyspepsia,Heartbur n Take 1 tablet (20 mg total) by mouth 2 (two) times a day as needed for indigestion or heartburn 10/06/2021 felodipine (PLENDIL) 5 mg 24 hr tabletIndications: hypertension Take 1 tablet (5 mg total) by mouth 2 (two) times a day 07/19/2007 hydroCHLOROthiazid e (HYDRODIURIL) 25 mg tabletIndications: hypertension Take 1 tablet (25 mg total) by mouth every morning ALPRAZolam (XANAX) 0.25 mg tabletIndications: anxiety Take 1 tablet (0.25 mg total) by mouth nightly as needed for sleep 1 06/27/2018 3 amitriptyline (ELAVIL) 25 mg tabletIndications: abdominal pain Take 1 tablet (25 mg total) by mouth nightly 30 tablet 2 11/07/2021 2 amitriptyline (ELAVIL) 25 mg tabletIndications: abdominal pain Take 2 tablets (50 mg total) by mouth nightly 60 tablet 2 11/25/2021 2 EDEX 20 mcg injection 20 mcg by intracavity route as needed for erectile dysfunction 06/11/2019 3 hyoscyamine (OSCIMIN) 0.125 mgIndications:Urin seble Incontinence Take 1 tablet (0.125 mg total) by mouth as needed for cramping 2 losartan (COZAAR) 100 mg tabletIndications: hypertension Take 1 tablet (100 mg total) by mouth every morning 3 POTASSIUM CHLORIDE ER 20 mEq CR tabletIndications: supplement Take 1 tablet (20 mEq total) by mouth every morning 5 04/23/2018 4 simvastatin (ZOCOR) 40 mg tablet Take 1 tablet (40 mg total) by mouth nightly 30 tablet 11 09/26/2021 2 urea (CARMOL) 40 % creamIndications:H yperkeratosis Apply 1 application topically every morning 08/05/2020 3 documented as of this encounter Discharge Disposition Disposition Code Departure Means Destination Discharge to home or self care documented in this encounter H&P Notes * Marquis Lopez MD - 11/23/2021 8:59 AM CDT I have reviewed the H&P, [...] mood, oriented x 3. Source Note - Tika Wright NP - 11/11/2021 10:14 AM CDT Images from the original note were not included. [facility] for Preoperative Assessment and Planning Preoperative Evaluation Record Evaluation type/location: TPAP from [facility] Planned procedure site: [facility] OR Date: 11/11/21 NOTE: This note represents a preoperative evaluation initiated via telephone interview. NO PHYSICALEXAM was performed at the time of initial assessment. A physical exam may be added to this note anddocumented below. Anesthesia Evaluation Doc Emery is a 56 y.o. male Procedure(s): INJECTION BOTOX 300 UNITS CYSTOSCOPY Pre-Op Diagnosis Codes: * Neurogenic bladder [N31.9] HISTORY HPI Doc Emery is a 56 [...] anxiety + Neuromuscular disease (age 24 diagnosis; no longer followed by neurology - ongoing left leg weakness, visual changes, and neurogenic bladder) - multiple sclerosis. Pertinent negatives: seizures; CVA/stroke; TIA; CEA; ICA stenosis; dementia/mild cognitive impairment and carotid artery stent Cardiovascular + Hypertension (checks BP at home; unable to give typical reading but never over 150/90 or below 90/50) Hypertension year diagnosed: 1999. + Hyperlipidemia (on statin) Pertinent negatives: CAD (denies, noted in history items); [place] ; CABG ; systolic/diastolic dysfunction w/o CHF ; valvular heart disease; valve replacement; atrial fibrillation; arrhythmia; pacemaker/ICD; PVD; DVT/PE; negative for CHF; drug-eluting stent(s); bare metal stent(s); unknown stent(s) typeand coronary angioplasty Respiratory Pertinent negatives: COPD; asthma; sleep apnea (ROSALINDA); pulmonary hypertension; no O2 use outside thehospital and non-smoker Hepatic / Heme Pertinent negatives: liver disease; history of anemia; history of thrombocytopenia and history of Lexy positive Gastrointestinal Pertinent negatives: GERD and hiatal hernia Renal / Pertinent negatives: renal disease; dialysis and nephrolithiasis Musculoskeletal/Pain + Chronic pain (left L4-5 facet [...] organ and pancreatitis Functional Capacity Functional capacity: 6-10 METs Comments: Weightlifting, walking, fishing, hiking - extremely active Able to climb more than 2 flights of stairs and walk greater than 4 level blocks without chest painor shortness of breath Review of Systems + muscle weakness (left leg weakness/drags / MS unchanged in the last year) + chronic pain (left L4-5 facet joint injection 08/2019 for midline low back pain with lumbosacral facet arthropathy) + vision loss (wears corrective lenses) Pertinent negatives: productive cough; wheezing; SOB; recent cold/flu; fever; chest pain; palpitations; orthopnea; pedal edema; PND; previous transfusion; melena/hematochezia; easy bruising; bleedingproblems; syncope and dizziness PAT Summary and Plans [...] and screen needed Pending labs/tests include: None COVID PLAN: Patient's COVID19 status is: Unexposed. The patient currently has no concerning symptoms of COVID19. . Patient's COVID-19 vaccination status is Up to date with 3 mRNA vaccines. Documentation of vaccination status is available in the Epic Immunization tab. . Plan for pre-procedure COVID19 testing: Patient is asymptomatic and up to date with their COVID-19 vaccine. COVID-19 testing not indicated. . Patient instructions were provided via telephone and in writing sent via [employer]. Patient verbalized understanding of preoperative plan. TPAP Complete Preoperative evaluation performed by Tika Wright NP on 11/11/21 at 10:30 AM . Patient Active Problem List Diagnosis [...] Anxiety ??? Erectile dysfunction ??? Neurogenic bladder Past Medical History: Diagnosis Date ??? Coronary artery disease ??? Hyperlipidemia ??? Hypertension Hypertension ??? Multiple sclerosis (CMS/HCC) (HCC) Multiple Sclerosis Past Surgical History: Procedure Laterality Date ??? COLONOSCOPY 2020 ??? CYSTOSCOPY with botox injection; receives every 6 months ??? FACET BLOCK LUMBAR SACRAL 1 LEVEL LEFT Left 09/12/2019 ??? FACET BLOCK LUMBAR SACRAL 1 LEVEL LEFT Left 05/04/2020 ??? FACET BLOCK LUMBAR SACRAL 1 LEVEL LEFT Bilateral 11/10/2021 ??? SHOULDER ARTHROSCOPY Left unknown No Known Allergies Med List Status: Nurse Complete Set By: Inga Paul RN at 11/08/2021 4:46 PM Taking? Last Dose Start Date End Date Provider ALPRAZolam (XANAX) 0.25 mg tablet 11/07/2021 06/27/18 -- Bettie Batres MD amitriptyline (ELAVIL) 25 mg tablet 11/07/2021 11/07/21 02/05/22 Noam Leonard MD Take 1 tablet (25 mg total) by mouth nightly EDEX 20 mcg injection 11/08/2021 06/11/19 -- Bettie Batres MD famotidine (PEPCID) 20 mg tablet Past Week 10/06/21 -- Bettie Batres MD felodipine (PLENDIL) 5 mg 24 hr tablet 11/08/2021 07/19/07 -- Bettie Batres MD hydroCHLOROthiazide (HYDRODIURIL) 25 mg tablet 11/08/2021 -- -- Bettie Batres MD hyoscyamine (OSCIMIN) 0.125 mg Past Week -- -- Bettie Batres MD losartan (COZAAR) 100 mg tablet 11/08/2021 -- -- Bettie Batres MD POTASSIUM CHLORIDE ER 20 mEq CR tablet 11/08/2021 04/23/18 -- Bettie Batres MD simvastatin (ZOCOR) 40 mg tablet 11/07/2021 09/26/21 09/26/22 Cherry Minor MD Take 1 tablet (40 mg total) by mouth nightly Patient taking differently: Take 40 mg by mouth nightly urea (CARMOL) 40 % cream Past Week 08/05/20 -- Bettie Batres MD No current facility-administered medications for this encounter. Current Outpatient Medications: ??? ALPRAZolam (XANAX) 0.25 mg tablet ??? amitriptyline (ELAVIL) 25 mg tablet ??? EDEX 20 mcg injection ??? famotidine (PEPCID) 20 mg tablet ??? felodipine (PLENDIL) 5 mg 24 hr tablet ??? hydroCHLOROthiazide (HYDRODIURIL) 25 mg tablet ??? hyoscyamine (OSCIMIN) 0.125 mg ??? losartan (COZAAR) 100 mg tablet ??? POTASSIUM CHLORIDE ER 20 mEq CR tablet ??? simvastatin (ZOCOR) 40 mg tablet ??? urea (CARMOL) 40 % cream Social History Tobacco Use Smoking Status Never Smoker Smokeless Tobacco Never Used Substance and Sexual Activity Alcohol Use Yes Comment: SOCIAL Substance and Sexual Activity Drug Use Not Currently ??? Frequency: 2.0 times per week ??? Types: Marijuana Family History Problem Relation Age of Onset ??? Multiple sclerosis Other Family history of Multiple sclerosis; ??? Hypertension Other Family history of Hypertension; ??? Melanoma Mother Family history of malignant melanoma - (Added by ANTONIA Winslow) ??? Cancer Mother ??? Alcohol abuse Father [...] last 720 hours. Romain index score: 100 documented in this encounter Miscellaneous Notes * Op Note - Marquis Lopez MD - 11/23/2021 11:12 AM CDT Date of Surgery: 11/23/2021 Preoperative diagnosis: neurogenic bladder with detrusor overactivity and urgency urinary incontinence Post-operative diagnosis: neurogenic bladder with detrusor overactivity and urgency urinary incontinence Procedure: Cystoscopy, injection of 300 units of onabotulinumtoxinA (Botox) into the bladder Surgeon: Marquis Lopez MD Assistant Import Manager: Don Rodriguez MD Anesthesia: General Complications: None Estimated blood [...] and draped in a standard surgical fashion. We attempted to advanced a rigid cystoscope into the bladder. However, the entire anterior urethra was quite narrow, is not able to accommodate a 23 Maori rigid cysto sheath. We do not have a pediatric cystoscope or a smaller sheath cystoscope. Therefore decision was made to perform the Botox injections using a flexible cystoscope instead rigid. A flexible needle was used for injections. The needle was dialed to 4 mm depth for injections. The flexible scope was advanced into the bladder. The urethra and the bladder mucosa looks normal. Next we diluted with 300 units of Botox in 30 cc of injectable normal saline, and we injected the Botox into the into the detrusor and submucosal area of the bladder in 1 cc aliquots. Botox was injected into the posterior bladder wall, the left and the right lateral bladder wall as well as the trigone of the bladder sparing the ureteral orifices bilaterally. All the Botox was injected inside the bladder. At the conclusion of the case there was no bleeding inside the bladder. The bladder was thenempty out. For future Botox injections, will have to use a flexible cystoscope for this patient. Also, we can only do this patient at [facility] but not at [facility] or [facility] since we do have the flexible needle there. Counts at the conclusion of the case: Correct Presence Statement: I, Dr. Marquis Lopez, was present throughout the surgery. * Brief Op Note - Marquis Lopez MD - 11/23/2021 11:12 AM CDT Operative Progress Note Surgical Team: Surgeon(s) and Role: * Marquis Lopez MD - Primary * Marc Rodriguez MD - Resident - Assisting Anesthesiologist: Adam Peguero MD HUMAN SERVICES CASE MANAGER: Dee Sanon CRNA Assistant Restaurant General Manager: Ngozi Hilton RN Scrub Relief: Estela Billings RNFA Scrub: Lemuel Mauro ST DATE OF SURGERY : 11/23/2021 Preoperative Diagnosis: Pre-op Diagnosis * Neurogenic bladder [N31.9] Postoperative Diagnosis: Post-op Diagnosis * Neurogenic bladder [N31.9] Procedure(s): Procedure(s) (LRB): INJECTION BOTOX 300 UNITS (N/A) CYSTOSCOPY (N/A) Operative Findings: Tight anterior urethra, we have use a flexible cystoscope to perform the Botox injections using theflexible injectable needle. Estimated Blood Loss: No blood loss documented. Intraoperative Fluids: See anesthesia record for mls Specimens: No specimen collected in procedure Implants: Nothing was implanted during the procedure Blood/Blood Products Transfused: 0 mls Complications: None Condition on Discharge from the operating room was stable Marquis Lopez MD Date: 11/23/2021 Time: 3:14 PM TEACHING ATTESTATION : I was present and directly participated in the entire procedure (including opening and closing). * Pre-Procedure Instructions - Tika Wright NP - 11/11/2021 10:18 AM CDT Center for Preoperative Assessment and Planning CPAP Clinic Location: [facility] The night before your surgery: * Do [...] instructions or restrictions. Please follow those instructions. ?? * You may brush your teeth and [...] on the day of surgery. * If having surgery at [facility], you may want to bring a credit card if you want to use our Mobile Pharmacy for your discharge medications. Mobile pharmacy is not available at [facility], the [facility], or the [place] [facility]. Outpatient Surgery: * You must have a [...] For Your Medications: Pre-Surgery Instructions: Medication Instructions ??? ALPRAZolam (XANAX) 0.25 mg tablet Take on day of surgery if needed ??? amitriptyline (ELAVIL) 25 mg tablet Take morning of surgery ??? EDEX 20 mcg injection Don't take on day of surgery ??? famotidine (PEPCID) 20 mg tablet Take morning of surgery ??? felodipine (PLENDIL) 5 mg 24 hr tablet Take morning of surgery ??? hydroCHLOROthiazide (HYDRODIURIL) 25 mg tablet Don't take on day of surgery ??? hyoscyamine (OSCIMIN) 0.125 mg Don't take on day of surgery ??? losartan (COZAAR) 100 mg tablet Don't take on day of surgery ??? POTASSIUM CHLORIDE ER 20 mEq CR tablet Don't take on day of surgery ??? simvastatin (ZOCOR) 40 mg tablet Take morning of surgery ??? urea (CARMOL) 40 % cream Don't take on day of surgery General Instructions For Medications: ?? * Stop all of these medications 5 days prior to your surgery: excedrin, motrin, advil, ibuprofen, aleve, naproxen, meloxicam, celebrex, celecoxib.? For medications that you are instructed to take on the morning of surgery, take the medications with a few sips of water. ?? Stop all of these medications 7-14 days prior to your surgery: Vitamin E, Herbal medicines, DietPills ?? If you have pain, you may take tylenol (acetaminophen). Do not take more than 6 tablets or 3000 mg (3 g) within a 24 period. Call your surgeon and the CPAP clinic if any of the following happens before surgery: ?? Any changes in your health ?? You have a fever ?? You have any signs of an infection (chest, urinary tract or tooth) ?? You have been to the Emergency Room or were in the hospital ?? You have started taking any new medications ?? You have questions about a bowel prep or special diet before surgery ??? You have symptoms of COVID-19 such as a new or worsening cough, shortness of breath, fever, body aches, loss of taste or smell, diarrhea or vomiting, or sore throat. ??? You have a household contact with COVID-19. ??? You test positive for COVID-19. * Pre-Procedure Instructions - Inga Paul RN - 11/08/2021 4:51 PM CDT [facility] FOR PREOPERATIVE ASSESSMENT AND PLANNING ([facility]AP) PRE-SURGICAL NURSING INSTRUCTIONS Telephone Assessment General Information Discussed with Patient: 1. Surgery location provided to patient. 2. Arrival time and surgical time will be provided to the patient by their surgeon. 3. You should wear clothing that is clean, loose, comfortable and easy to get in and out of on the day of surgery. 4. You should leave your valuables and any jewelry at home. No metal or piercings are allowed in the operating room. 5. You should bring your insurance card, a photo ID (example: Crna's License) and a method of payment for any insurance copay, deductible or copay for discharge medications. 6. You should bring a complete, up-to-date list of all your medications on the day of surgery, including any over the counter medications or supplements you may take. 7. You should bring your Advanced Directive and/or Living Will with you on the day of surgery if you have not verified a copy is already in your Epic Chart. A Guide for Patients Having Surgery: Your [...] contribute to the success of your surgery. ??? If your surgeon's directions are different than those in this guide, talk with your nurse or surgeon to confirm the information. ??? It is important that you understand how to take care of yourself at home after surgery. ??? Be sure to bring this guide with you on the day of surgery and take it home with you after surgery. ??? Write down questions for your nurse or [...] Pathway to Excellent Care by the followinglink: [email or web address] How To Prepare Your Skin For Surgery Below is the Pre-Surgical Bathing Protocol you should follow for your surgery. If your surgeon provides you different bathing instructions, please follow your surgeon's orders. Normal Bathing: Bathe with regular soap the night before and/or day of surgery. Normal Bathing Protocol Bathe with your normal soap the night before and the morning of surgery. ??? Wear clean clothes or pajamas to sleep in. ??? After showering DO NOT put on deodorant, hair products, conditioners, lotions, creams, powders,Vaseline or any non-essential products. ??? Place clean linens on your bed the night before surgery. ??? Shaving: You may shave your face, legs and underarms during your evening shower. Avoid shaving on the day of surgery. COVID TESTING PLAN: Please note, the below is the Pre-Procedure COVID Testing Plan for the Center for Preoperative Assessment & Planning for Anesthesia. Surgeon's offices may require additional testing. If so, the surgeon's office will reach out to the patient to discuss further testing. Patient's COVID-19 vaccination status: Up to date with 3 mRNA vaccines. Documentation of vaccination status is available in the Epic Immunization tab. COVID Test Plan: COVID Test not indicated related to patient is up to date on COVID 19 vaccine(s) and booster, if eligible. All patients should read below section: All visitors/patients are being asked to wear a clean face mask when entering the hospital. COVID 19 Updates & Visitor Policy: Please access [email or web address] for the most updated information. Information on [facility]: Please view [email or web address] (Patient & Visitor Information) for additional details regarding Advanced Directive forms, AWARE, directions, parking information, lodging, Internet access, dining and more. Information on [facility]: Please view [email or web address] (Patient and Visitor Information) for parking/directions and more. For MyChart information, to activate account or password recovery, please go to [email or web address] or call [phone] (toll-free: [phone]). Information for Suicide Prevention: National Suicide Prevention Lifeline (9-930- 248-YWVI (5456)). Surgery Times: For patients having surgery @ [facility], [facility] or [facility], if your surgeon's office has not notified you of your surgery time by NOON THE BUSINESS DAY BEFORE your surgery, please call [phone] and ask for your surgeon'soffice. * Perioperative Nursing Note - Inga Paul RN - 11/08/2021 4:51 PM CDT Center for Preoperative Assessment and Planning Perioperative Nursing Note Telephone Preoperative Evaluation ([facility]) - TELEPHONE ONLY, NO PHYSICAL EXAM Date: 11/08/21 Vitals: 11/08/21 1645 Weight: 81.6 kg (180 lb) Height: 177.8 cm (5' 10 ) CHEST CIRCUMFERENCE:NA Social History Tobacco Use Smoking Status Never Smoker Smokeless Tobacco Never Used Substance and Sexual Activity Drug Use Not Currently ??? Frequency: 2.0 times per week ??? Types: Marijuana Alcohol Use Q1: How often do you have a drink containing alcohol?: 2-3 times a week Q2: How many drinks containing alcohol do you have on a typical day when you are drinking?: 1 or 2 Q3: How often do you have six or more drinks on one occasion?: Never Outpatient Medications Marked as Taking for the 11/23/21 encounter (Hospital Encounter) Medication Sig Dispense Refill ??? ALPRAZolam (XANAX) 0.25 mg tablet Take 0.25 mg by mouth nightly as needed for sleep 1 ??? amitriptyline (ELAVIL) 25 mg tablet Take 1 tablet (25 mg total) by mouth nightly 30 tablet 2 ??? EDEX 20 mcg injection 20 mcg by intracavity route as needed for erectile dysfunction ??? famotidine (PEPCID) 20 mg tablet Take 20 mg by mouth as needed for indigestion ??? felodipine (PLENDIL) 5 mg 24 hr tablet Take 5 mg by mouth every morning ??? hydroCHLOROthiazide (HYDRODIURIL) 25 mg tablet Take 25 mg by mouth every morning ??? hyoscyamine (OSCIMIN) 0.125 mg Take 0.125 mg by mouth as needed for cramping ??? losartan (COZAAR) 100 mg tablet Take 100 mg by mouth every morning ??? POTASSIUM CHLORIDE ER 20 mEq CR tablet Take 20 mEq by mouth every morning 5 ??? simvastatin (ZOCOR) 40 mg tablet Take 1 tablet (40 mg total) by mouth nightly (Patient taking differently: Take 40 mg by mouth nightly) 30 tablet 11 ??? urea (CARMOL) 40 % cream Apply 1 [...] not in Chart: Copy requested from family Communication/Consulting Networking Engineer Needs Communication Needs: Glasses Assistive Devices/DME: Eyeglasses Discharge Planning Type of Residence: Private residence Living Arrangements: Spouse/significant other Support Systems: Spouse/significant other, Family members, Friends/neighbors ( will be caring for him after procedure) Patient expects to be discharged to:: Private residence COVID Screening Covid-19 Screening In the last 10 days have you had any new or worsening cough, SOB, fever (>=100F), body aches, loss of taste or smell, diarrhea or vomiting, or sore throat?: No Have you had close contact with anyone with confirmed or suspected COVID-19 in the past 10 days?: No Do you live in or work in a congregate living facility (ex. assisted living/senior care facility, group home, usp)?: No Have you tested positive for COVID-19 within the last 10 days?: No Have you previously tested positive for COVID-19? Yes Have you had a COVID -19 exposure within the past 14 days? No Were both or all people exposed wearing masks (cloth, isolation, surgical or N95)? N/A TESTING PLAN-See Instructions for plan We recommend you Self-Isolate after COVID Testing: Stay at home, if possible until your surgery date. Maintain a 6 foot distance from other people (social distancing). Avoid touching your eyes, nose and mouth with unwashed hands. Wash your hands often with soap and water for at least 20 seconds. Use an alcohol- based hand pest locator that contains at least 60% alcohol if soap and water are not available. ADDITIONAL COMMENTS/ FOLLOW UP documented in this encounter Plan of Treatment Not on file documented as of this encounter Procedures Procedure Name Priority Date/Time Associated Diagnosis Comments CYSTOSCOPY 11/23/2021 10:58 AM CDT Neurogenic bladder Special Needs 3200 UNITS OF BOTOX TO BE MIXED WITH 30 CC NORMAL SALINE IN OR; CHERELLE NEEDLE FOR INJECTION INJECTION BOTOX 11/23/2021 10:58 AM CDT Neurogenic bladder Special Needs 3200 UNITS OF BOTOX TO BE MIXED WITH 30 CC NORMAL SALINE IN OR; CHERELLE NEEDLE FOR INJECTION documented in this encounter Visit Diagnoses Diagnosis Neurogenic bladder- Primary Neurogenic bladder, NOS Neurogenic bladder Neurogenic bladder, NOS documented in this encounter Admitting Diagnoses Diagnosis Neurogenic bladder Neurogenic bladder, NOS documented in this encounter Administered Medications Inactive Administered Medications - up to 3 most recent administrations Medication Order MAR Action Action Date Dose Rate Site Lactated Ringer's (LR) infusion 30 mL/hr, intravenous, Continuous, Starting on Sun11/23/21 at 0945, For 4 hours, Pre-Op, Use a 500 ml bag for End Stage Renal Disease Patients. Discontinue if fluid still running once patient arrives to floor. Rate/Dose Verify 11/23/2021 10:54 AM CDT 30 mL/hr New Bag 11/23/2021 9:39 AM CDT 30 mL/hr 30 mL/hr onabotulinumtoxin A (BOTOX) injection As needed, Starting on Sun11/23/21 at 1126, Intra-Op Given 11/23/2021 11:26 AM CDT 300 Units Surgical Site sodium chloride 0.9% irrigation As needed, Starting on Sun11/23/21 at 1126, Intra-Op Given 11/23/2021 11:26 AM CDT 3,000 mL Surgical Site sodium chloride bacteriostatic 0.9 % injection As needed, Starting on Sun11/23/21 at 1126, Intra-Op Given 11/23/2021 11:26 AM CDT 30 mL Surgical Site documented in this encounter Active and Recently Administered Medications Times are shown in CDT. Scheduled Medication Order 11/21/2021 11/22/2021 11/23/2021 ceFAZolin (ANCEF) 1 gram/10 mL in sterile water (premix) 2,000 mg (COMPLETED) 2,000 mg, intravenous, at 400 mL/hr, Administer over 3 Minutes, Once, On Sun11/23/21 at 0945, For 1 dose, Pre-Op, Administer within 60 minutes of incision., Indications: Prophylaxis, Surgical 1106 (Given - Provid er: Dee Sanon CRNA) Continuous Medication Order 11/21/2021 11/22/2021 11/23/2021 Lactated Ringer's (LR) infusion 30 mL/hr, intravenous, Continuous, Starting on Sun11/23/21 at 0945, For 4 hours, Pre-Op, Use a 500 ml bag for End Stage Renal Disease Patients. Discontinue if fluid still running once patient arrives to floor. 0939 (New Bag - Prov ider: Radha Lewis RN)1054 (Rate/Dose Verify - Provider: Dee Sanon CRNA)1202 (Due)1641 (Due: Stopped) Lactated Ringer's (LR) infusion 125 mL/hr, intravenous, Continuous, Starting on Sun11/23/21 at 1215, For 4 hours, Phase I, Discontinue upon discharge from PACU to the floor. 1215 (Due) PRN Medication Order 11/21/2021 11/22/2021 11/23/2021 acetaminophen (TYLENOL) tablet 500 mg 500 mg, oral, Every 6 hours PRN, headaches, other, Breakthrough Pain and Supplement to other pain meds, Starting on Sun11/23/21 at 1140, For 2 doses, Phase I, When able to tolerate PO after consulting with Anesthesiologist. Do not administer if patient has already received Acetaminophen-containing medications in PACU., Indications: Pain diphenhydrAMINE (BENADRYL) injection 12.5 mg 12.5 mg, intravenous, Administer over 1 Minutes, Every 5 min PRN, itching, other, For Nausea, administer 25 mg IV., Starting on Sun11/23/21 at 1140, For 4 doses, Phase I, Max cumulative dose 50 mg., Indications: Itching fentaNYL (SUBLIMAZE) preservative free injection 25 mcg 25 mcg, intravenous, Every 5 min PRN, 2nd line for pain, Use Fentanyl as 1st line medication for extremely severe pain for outpatients, and follow with oral pain medication., Starting on Sun11/23/21 at 1140, For 4 doses, Phase I, Use as [...] min PRN, high blood pressure, Starting on Sun11/23/21 at 1140, Phase I, Max cumulative dose 20 mg. [...] and follow with Oral meds., Starting on Sun11/23/21 at 1140, For 2 doses, Phase I, May administer [...] patients with extremely severe pain., Starting on Sun11/23/21 at 1140, Phase I, Use as first line pain [...] min PRN, high blood pressure, Starting on Sun11/23/21 at 1140, For 4 doses, Phase I, Max cumulative dose 20 mg. Dose if systolic blood pressure greater than 180 AND HR greater than 70. meperidine (DEMEROL) preservative free injection 12.5 mg 12.5 mg, intravenous, Administer over 5 Minutes, Every 10 min PRN, shivering, Starting on Sun11/23/21 at 1140, For 2 doses, Phase I, Max cumulative dose 25 mg., Indications: Shivering naloxone (NARCAN) 0.4 mg/mL injection 0.04-0.4 mg 0.04-0.4 mg, intravenous, Once as needed, other, excessive sedation/respiratory depression, Starting on Sun11/23/21 at 1140, For 1 dose, Phase I, Dilute 0.4 [...] (BOTOX) injection (CANCELED) As needed, Starting on Sun11/23/21 at 1126, Intra-Op 1126 (Given - Provid er: Marquis Lopez MD - Comment: injected into bladder) ondansetron (ZOFRAN) injection 4 mg 4 mg, intravenous, Administer over 2 Minutes, Once as needed, nausea, vomiting, Starting on Sun11/23/21 at 1140, For 1 dose, Phase I, Proceed to prochlorperazine if ondansetron has been given within the last 6 hours. prochlorperazine (COMPAZINE) injection 5 mg 5 mg, intravenous, Every 10 min PRN, nausea, vomiting, Check with Anesthesiologist before administring, and ask about IV versus IM., Starting on Sun11/23/21 at 1140, For 2 doses, Phase I, If nausea/vomiting not relieved by ondansetron within 30 minutes or if ondansetron has been given within the last 6 hours. sodium chloride 0.9% irrigation (CANCELED) As needed, Starting on Sun11/23/21 at 1126, Intra-Op 1126 (Given - Provid er: Marquis Lopez MD) sodium chloride bacteriostatic 0.9 % injection (CANCELED) As needed, Starting on Sun11/23/21 at 1126, Intra-Op 1126 (Given - Provid er: Marquis Lopez MD - Comment: mixed with botox) documented in this encounter Orders Medications Ordered That Julio Cesar ht Not Have Been Administered Count Last Ordered Date First Ordered Date acetaminophen (TYLENOL) tablet 500 mg 1 06/2021 ceFAZolin (ANCEF) 1 gram/10 mL in sterile water (premix) 2,000 mg 1 11/23/2021 diphenhydrAMINE (BENADRYL) i njection 12.5 mg 1 11/23/2021 famotidine (PEPCID) injection 20 mg 1 11/23 fentaNYL (SUBLIMAZE) preserv ative free injection 25 mcg 1 11/23/2021 hydrALAZINE (APRESOLINE) injection 5 mg 1 0 11/23/2021 HYDROcodone-acetaminophen (N ORCO) 5-325 mg per tablet 1 tablet 1 11/23/2021 HYDROmorphone (DILAUDID) injection 0.2 mg 1 11/23/2021 labetaloL (NORMODYNE,TRANDAT E) injection 5 mg 1 11/23/2021 Lactated Ringer's (LR) infusion 1 meperidine (DEMEROL) preserv ative free injection 12.5 mg 1 11/23/2021 naloxone (NARCAN) 0.4 mg/mL injection 0.04-0.4 mg 1 11/23/2021 ondansetron (ZOFRAN) injection 4 mg 1 11/23 prochlorperazine (COMPAZINE) injection 5 mg 1 11/23/2021 scopolamine patch 72 hour 1 patch 1 022 sodium chloride 0.9% flush 0.5-20 mL 1 06/2021 Discharge Count Last Ordered Date First Orde red Date DISCHARGE PATIENT 1 11/23/2021 documented in this encounter Care Teams Hooker Machine Tender Relationship Specialty Start Date End Date Mick Flowers MD PCP - General 05/14/17 documented as of this encounter
--- OUTSIDE RECORDS SUMMARY | 2024-06-29 00:29 | XMS_ITS | Encounter Summary ---
Author Organization [facility] Address [address] [place] [address] Phone Care Team Providers Care Administrative Hearing Officer Name Role Phone Mick Flowers MD Primary Care Provider [phone] Encounter Details Date Type Department Care Team (Late st Contact Info) Description 02/24/2022 Telephone [facility] Gastroenterology [facility] [address] [place] [address] [place] [address] Noam Leonard MD [address] [place] [address] Social History Tobacco Use Types [...] on file 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 Gender Identity Not on file Sexual Orientation Not on file 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 Refills sent. documented in this encounter Plan of Treatment Not on file documented as of this encounter Visit Diagnoses Diagnosis GERD without esophagitis- Primary Esophageal reflux documented in this encounter Discontinued Medications Medication Sig Discontinue Reason Start Date End Da te amitriptyline (ELAVIL) 25 mg tabletIndications:abdomi nal pain Take 2 tablets (50 mg total) by mouth nightly Reorder 11/25/2021 02/24/2022 documented as of this encounter Care Teams Administrative Hearing Officer Relationship Specialty Start Date End Date Mick Flowers MD PCP - General 05/14/17 documented as of this encounter
--- OUTSIDE RECORDS SUMMARY | 2024-06-29 00:29 | XMS_ITS | Encounter Summary ---
Author Organization [facility] Address [address] [place] [address] Phone Care Team Providers Care Tool Crib Lead Name Role Phone Mick Flowers MD Primary Care Provider [phone] Encounter Details Date Type Department Care Team (Late st Contact Info) Description 11/22/2021 Telephone [facility] Urology [address] [facility] 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 Patient did not see them on the portal. I read off the medications he could take according to the list on 11/11/2021 pre- procedure instructions. documented in this encounter Plan of Treatment Not on file documented as of this encounter Visit Diagnoses Not on filedocumented in this encounter Care Teams Tool Crib Lead Relationship Specialty Start Date End Date Mick Flowers MD PCP - General 05/14/17 documented as of this encounter
--- OUTSIDE RECORDS SUMMARY | 2024-06-29 00:29 | XMS_ITS | Encounter Summary ---
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 ICES MANAGER * Telephone Encounter - Batsheva Fuentes CMA - 09/02/2021 8:49 AM SERVICES MANAGER Pt wanted you to know his ins is correct in the system ICES MANAGER documented in this encounter Plan of Treatment Not on file documented as of this encounter Visit Diagnoses Not on filedocumented in this encounter Care Teams Hatchery Supervisor Relationship Specialty Start Date End Date Mick Flowers MD PCP - General 05/14/17 documented as of this encounter
--- OUTSIDE RECORDS SUMMARY | 2024-06-29 00:29 | XMS_ITS | Encounter Summary ---
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 LVM for patient asking that he provide lab information if willing to have TTG redrawn to complete work up. Noam Leonard MD [facility] Aisha Pool If he is ok with it, lets get it sent to make sure that is ruled out. * Addendum Note - Zuleyma Neely RN - 11/25/2021 9:51 AM CDTAddended by: ZULEYMA NEELY on: 11/25/2021 09:51 AM Modules accepted: Orders * Telephone Encounter - Zuleyma Neely RN - 11/25/2021 9:44 AM CDT Patient called back, states that he has seen improvement in his abdominal pain since starting amitriptyline 25mg two weeks ago. He would like to try increasing the dose to 50mg as previously discussed with Dr. Leonard and denies having any side effects. He states that he will need a new prescription for the increased dose, prescription sent. Message sent to update Dr. Leonard and find out if rep eating the TTG draw is needed. * Telephone Encounter - Zuleyma Neely RN - 11/25/2021 9:39 AM CDT Left second VM requesting call or mychart back from patient with update. * Telephone Encounter - Zuleyma Neely RN - 11/18/2021 3:31 PM CDT LVM requesting call back to discuss below. Regarding: FW: Follow up Fecal calprotectin was normal. Is the amitriptyline helping? If he is still having symptoms, would repeat the blood draw to just check the tissue transglutaminase. ----- Message ----- From: Keely Liu LPN Sent: 11/17/2021 2:44 PM CDT To: Noam Leonard MD Subject: Follow up ----- Message from Keely Liu LPN sent at 11/17/2021 2:44 PM CDT ----- ----- Message sent from Zuleyma Neely RN to Doc Emery at 11/17/2021 8:48 AM ----- Hermelindo Roach, I wanted to check in to see if you have been able to complete your stool testing for Dr. Leonard yet? documented in this encounter Plan of Treatment Not on file documented as of this encounter Visit Diagnoses Not on filedocumented in this encounter Discontinued Medications Medication Sig Discontinue Reason Start Date End Da te amitriptyline (ELAVIL) 25 mg tabletIndications:abdomi nal pain Take 1 tablet (25 mg total) by mouth nightly Reorder 11/07/2021 11/25/2021 documented as of this encounter Care Teams Bank Messenger Relationship Specialty Start Date End Date Mick Flowers MD PCP - General 05/14/17 documented as of this encounter
--- OUTSIDE RECORDS SUMMARY | 2024-06-29 00:29 | XMS_ITS | Encounter Summary ---
Author Organization [facility] Address [address] [place] [address] Phone Care Team Providers Care Radiology Asst Name Role Phone Mick Flowers MD Primary Care Provider [phone] Reason for Visit * Gastroenterology (Routine) - Closed Specialty Diagnoses / Procedures Referred By Contac t Referred To Contact Gastroenterology Diagnoses GERD without esophagitis Diarrhea, unspecified type Referral, Self [facility] (All Locations) Referral ID Status Reason Start Date Expiration Date V isits Requested Visits Authorized [id number] Closed Specialty Services Required 08/26/2021 09/25/2022 99 99 Encounter Details Date Type Department Care Team (Late st Contact Info) Description 11/07/2021 2:30 PM CDT Office Visit [facility] Gastroenterology [address] [facility] 2[address] [place] [address] Noam Leonard MD [address] [place], [place] [id number] GERD without esophagitis; Diarrhea, unspecified type Social History Tobacco Use Types Packs/Day Years [...] on file 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 Gender Identity Not on file Sexual Orientation Not on file 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 on file Not on file documented as of this encounter Last Filed Vital Signs Vital Sign Reading Time Taken Comments Blood Pressure 160/95 11/07/2021 2:23 PM CDT Pulse 60 11/07/2021 2:23 PM CDT Temperature 36.7 ??C (98 ??F) 11/07/2021 2:23 PM CDT Respiratory Rate - - Oxygen Saturation 98% 11/07/2021 2:23 PM CDT Inhaled Oxygen Concentration - - Weight 82.3 kg (181 lb 6.4 oz) 11/07/2021 2:23 P M CDT Height 177.8 cm (5' 10 ) 11/07/2021 2:23 PM CDT Body Mass Index 26.03 11/07/2021 2:23 PM CDT documented in this encounter Patient Instructions * Patient Instructions* Noam Leonard MD - 11/07/2021 3:11 PM CDT We will send a stool study to evaluate for inflammation of your colon. We will send blood sample to evaluate for celiac disease. We will start you on the a start at 25 mg. If you tolerate and are still having symptoms, can increase to 50 mg in 2-3 weeks and then do it again to 100 mg in another 2-3 weeks. You can use hyoscyamine on an as needed basis for campy pain. You can use one imodium for diarrhea prevention as needed. Continue Pepcid as needed. If you have any further issues or questions, please reach out to: Kanchan at [phone] or Johnson at [phone] Our Fax number is [phone] documented in this encounter Ordered Prescriptions Prescription Sig Dispense Quantity Refills Last Filled Start Date End Date amitriptyline (ELAVIL) 25 mg tabletIndications: abdominal pain Take 1 tablet (25 mg total) by mouth nightly 30 tablet 2 11/07/2021 2 documented in this encounter Progress Notes * Noam Leonard MD - 11/07/2021 2:30 PM CDT [facility] Gastroenterology (NEW PATIENT) Subjective NAME: Doc Emery : 1965 DOS: 11/07/2021 Referred here Primary Care Physician: Mick Flowers MD Consult requested by: Referral, Self Chief Complaint: Abdominal pain and diarrhea HPI Doc Emery, is a 56 y.o.male who presents for abdominal pain and diarrhea. The patient states this has been going on for a couple years. He states he will have attacks every 1 1-2 weeks. During these attacks he will have abdominal pain and loose stools. His issues occur primarily in the morningany states that in the evening he is generally symptom free. In general he has a bowel movement a day that is normal consistency. He denies any blood in his stool. He denies any unintentional weight loss. He will occasionally have heartburn. This occurs 1 to 2 times a week. This is alleviated with Pepcid. During these attacks he will have 3-4 bowel movements a day that are watery. He can have issues with soiling himself if he cannot get to a bathroom in time. During this time he will also have abdominal pain that is below his umbilicus in the middle. He does not identify any triggering affects. He states that the pain does not wake him from sleep. He does not have any issues eating dairy. There is no family history of celiac disease or inflammatory bowel disease. He was placed on hyoscyamine in the past and this did not seem to help. He has a history of multiple sclerosis and hypertension. He does receive bladder injections and asked to self catheterize himself. He is not on any medication for his multiple sclerosis. He is on medicines for hypertension and elevated cholesterol. He denies any drug allergies. He lives with his . He drinks socially on the weekend. He likes to drink bourbon and wine. He will have a couple drinks over the weekend. He denies any tobacco use. He does use medical marijuana. He uses edibles for sleep. He he uses this daily. He obtained it from a dispensary. He was recently placed on disability. 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 Prior to that he was in the [employer]. Records Reviewed: 11/08/2020 EGD WITH gastric polypectomies via cold snare (N/A) COLONOSCOPY WITH descending colon polypectomy via cold snare (N/A) Surgeon(s): Kilo Myers MD Staff: Pre / Post-Op Nurse: Kanchan Harper RN client service professional: Denise Farris CNA Anesthesia: General Anesthesiologist: eMek Kilpatrick MD ADMINISTRATION VICE PRESIDENT: Candice Gotti CRNA Pre-Op Diagnosis: GERD, change [...] Continue PPI medication for now. Complications: None Pathology: A. ??GASTRIC POLYPS, BIOPSY: ? - FUNDIC GLAND POLYPS ? - NO H. PYLORI ORGANISMS (IHC) B. ??DESCENDING COLON POLYP, BIOPSY: ? - TUBULAR ADENOMA, NO HIGH GRADE DYSPLASIA Past Medical History: Diagnosis Date ??? Coronary artery disease ??? Hyperlipidemia ??? Hypertension Hypertension ??? Multiple sclerosis (CMS/HCC) (HCC) Multiple Sclerosis Past Surgical History: Procedure Laterality Date ??? COLONOSCOPY 2020 ??? CYSTOSCOPY with botox injection; receives every 6 months ??? FACET BLOCK LUMBAR SACRAL 1 LEVEL LEFT Left 09/12/2019 ??? FACET BLOCK LUMBAR SACRAL 1 LEVEL LEFT Left 05/04/2020 ??? SHOULDER ARTHROSCOPY Left unknown Patient Active Problem List Diagnosis Date Noted ??? Abnormal MRI 02/16/2021 ??? Vitamin D deficiency 02/16/2021 ??? Bowel incontinence 12/14/2020 ??? Cardiovascular risk factor 12/14/2020 ??? OAB (overactive bladder) 07/31/2018 Overview Note: Added automatically from request for surgery [id number] ??? Neurogenic bladder disorder 02/13/2018 Overview Note: Added automatically from request for surgery [id number] ??? Neurogenic bladder 02/13/2018 Overview Note: Overview: Added automatically from request for surgery [id number] ??? Erectile dysfunction 09/08/2016 ??? Primary insomnia 08/24/2015 ??? Penile discharge 03/11/2014 ??? Urinary tract infection 02/18/2014 ??? Urethral stricture 01/26/2014 ??? Abnormality of gait and mobility 12/16/2012 ??? High risk medication use 12/16/2012 ??? Hypercholesterolemia 12/16/2012 ??? Multiple sclerosis (CMS/HCC) (HCC) 12/16/2012 ??? Anxiety 10/03/2012 Current Outpatient Medications Medication Sig Dispense Refill ??? ALPRAZolam (XANAX) 0.25 mg tablet Take 0.25 mg by mouth nightly as needed for sleep 1 ??? EDEX 20 mcg injection 20 mcg by intracavity route as needed for erectile dysfunction ??? famotidine (PEPCID) 20 mg tablet as needed ??? felodipine (PLENDIL) 5 mg 24 hr [...] total) by mouth nightly 30 tablet 11 ??? urea (CARMOL) 40 % cream Apply 1 application topically every morning ??? amitriptyline (ELAVIL) 25 mg tablet Take 1 tablet (25 mg total) by mouth nightly 30 tablet 2 No current facility-administered medications for this visit. Patient has no known allergies. Family History Problem Relation Age of Onset ??? Multiple sclerosis Other Family history of Multiple sclerosis; ??? Hypertension Other Family history of Hypertension; ??? Melanoma Mother Family history of malignant melanoma - (Added by TW Conv) ??? Cancer Mother ??? Alcohol abuse Father ??? Cancer Father ??? Hypertension Father ??? Anesthesia problems Neg Hx Social History Tobacco Use ??? Smoking status: Never Smoker ??? Smokeless tobacco: Never Used Vaping Use ??? Vaping Use: Never used Substance Use Topics ??? Alcohol use: Yes Comment: SOCIAL ??? Drug use: Yes Frequency: 2.0 times per week Types: Marijuana ROS Constitutional: Negative. HEENT: Negative for sore throat and trouble swallowing. Eyes: Negative. Respiratory: Negative. Cardiovascular: Negative. Gastrointestinal: See HPI Endocrine: Negative. Genitourinary: self catherization. Musculoskeletal: right leg drag secondary to MS. Skin: Negative. Allergic/Immunologic: Negative. Neurological: Negative. Hematological: Negative. Psychiatric/Behavioral: anxiety. Breast: Negative. All other systems negative. PHYSICAL EXAM: VITAL SIGNS: Vitals BP 160/95 Pulse 60 Temp 36.7 ??C (98 ??F) Ht 177.8 cm (5' 10 ) Wt 82.3 kg (181 lb 6.4 oz) SpO2 98% BMI 26.03 kg/m?? GENERAL: Well-appearing, in no acute distress. HEENT: Head: Normocephalic, Atraumatic EYES: Anicteric, no obvious defect in EOM NECK: Range of motion intact, no obvious thyromegaly. LUNGS: Respirations unlabored, normal respiratory effort, no grunting CARDIOVASCULAR: No obvious edema ABDOMEN: Flat appearing, patient denies palpable areas of tenderness, no grossly visible asymmetry RECTAL: deferred EXTREMITIES: No deformity nor cyanosis. SKIN: No rash or jaundice. NEUROLOGIC: Moves all extremities equally. Cranial Nerves grossly intact. PSYCHIATRIC: Alert and oriented X3, normal insight, memory. Results Labs Lab Results Component Value Date WBC 4.6 10/10/2021 HGB 15.0 10/10/2021 HCT 46.7 10/10/2021 MCV 91.4 10/10/2021 LABPLAT 198 10/10/2021 Lab Results Component Value Date GLUCOSE 88 10/10/2021 CALCIUM 10.3 10/10/2021 SODIUM 139 10/10/2021 POTASSIUM 4.3 10/10/2021 CO2 28 10/10/2021 CHLORIDE 102 10/10/2021 BUNSER 13 10/10/2021 CREATININE 0.86 10/10/2021 Lab Results Component Value Date ALT 37 10/10/2021 AST 22 10/10/2021 ALKPHOS 105 10/10/2021 BILITOT 0.6 10/10/2021 Assessment/Plan Mr. Emery is a 56-year-old man with history of MS who presents with abdominal pain and diarrhea. We will send a stool study to evaluate fecal calprotectin levels. We will also send blood sample toevaluate for celiac disease. If fecal calprotectin is elevated, we will repeat colonoscopy with biopsies. If blood tests suggest celiac disease, we will schedule him for a EGD with biopsies. We will start him on amitriptyline at 25 mg/night. If he tolerates and is still having symptoms, can increase to 50 mg in 2-3 weeks and then do it again to 100 mg in another 2-3 weeks. He can use hyoscyamine on an as needed basis for campy pain. He can use one imodium for diarrhea prevention as needed. He can continue Pepcid as needed. Orders Orders Placed This Encounter ??? Calprotectin, fecal ??? Tissue transglutaminase IgA (TGG-IgA Ab) ??? IgA ??? amitriptyline (ELAVIL) 25 mg tablet My total encounter time on 11/07/2021 was 45 minutes which was spent in the activities documented inthe note. This includes time spent prior to the visit and after the visit in direct care of the patient. This time does not include time spent in any separately reportable services. Noam Leonard MD, PhD food server Gastroenterology Division [facility] [address] [place] [address] Academic office [phone] This note was dictated using [employer] voice recognition software. Variances in spelling and vocabulary are possible and errors are unintentional. documented in this encounter Plan of Treatment Scheduled Orders Name Type Priority Associated Diagnoses Orde r Schedule Calprotectin, fecal Lab Routine Diarrhea, unspecified type Expected: 11/07/2021, Expires: 11/07/2022 Tissue transglutaminase IgA (TGG-IgA Ab) Lab Routine Diarrhea, unspecified type Expected: 11/14/2021, Expires: 11/07/2022 IgA Lab Routine Diarrhea, unspecified type Expected: 11/08/2021, Expires: 12/08/2021 documented as of this encounter Visit Diagnoses Diagnosis GERD without esophagitis Esophageal reflux Diarrhea, unspecified type documented in this encounter Discontinued Medications Medication Sig Discontinue Reason Start Date End Da te aspirin 81 mg enteric coated tabletIndications:preven tion of thrombosis Take 81 mg by mouth nightly Therapy completed 11/07/2021 cholecalciferol (VITAMIN D-3) 1,000 unit Take 1,000 Units by mouth every morning Therapy completed 11/07/2021 documented as of this encounter Historical Medications * This list may reflect changes made after this encounter. hyoscyamine (OSCIMIN) 0.125 mgIndications:Urin seble Incontinence Take 1 tablet (0.125 mg total) by mouth as needed for cramping 2 added in this encounter Orders Outpatient Referral Count Last Ordered Date Fir st Ordered Date AMB REFERRAL TO GASTROENTEROLOGY 1 11/08/19 22 documented in this encounter Care Teams Radiology Asst Relationship Specialty Start Date End Date Mick Flowers MD PCP - General 05/14/17 documented as of this encounter
--- OUTSIDE RECORDS SUMMARY | 2024-06-29 00:29 | XMS_ITS | Encounter Summary ---
Author Organization [facility] Address [address] [place] [address] Care Team Providers Care Oem Sales Manager Name Role Phone Mick Flowers MD Primary Care Provider [phone] Reason for Referral * Diagnostic Imaging (Routine) - Closed Specialty Diagnoses / Procedures Referred By Contac t Referred To Contact Radiology Diagnoses Lumbar facet joint pain Procedures IR Facet Block Lumbar Sacral First Level Bilateral Walter Slaughter MD [address] [address] Phone: tel: fax: [address] [address] Referral ID Status Reason Start Date Expiration Date Visits Re quested Visits Authorized [id number] Closed 11/03/2021 12/03/2022 1 1 Reason for Visit * Diagnostic Imaging (Routine) - Closed Specialty Diagnoses / Procedures Referred By Contac t Referred To Contact Radiology Diagnoses Lumbar facet joint pain Procedures IR Facet Block Lumbar Sacral First Level Bilateral Walter Slaughter MD [address] [facility] [address] [place] [address] Phone: tel: fax: [address] [address] Referral ID Status Reason Start Date Expiration Date Visits Re quested Visits Authorized [id number] Closed 11/03/2021 12/03/2022 1 1 Encounter Details Date Type Department Care Team (Latest Contact Info) Description 11/10/2021 1:51 PM CDT - 11/10/2021 11:59 PM CDT Hospital Encounter [id number] Radiology [address] [facility] [address] [place] [id number] Walter Slaughter MD [address] [facility] [address] [place] [address] Lumbar facet joint pain Discharge Disposition: Discharge [...] on file 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 Check fasting (safety admin assistant prior to first meal of the day) [...] concerns after hours, call our exchange at [phone]. For all other questions regarding the procedure, please call our office at [phone]. Pain Diary Please fill out the pain diary chart below and call or message via [employer] the medical provider whorequested the injection, Dr. [...] mouth nightly 30 tablet 2 11/07/2021 2 EDEX 20 mcg injection 20 mcg [...] Progress Notes * Walter Slaughter MD - 11/10/2021 2:20 PM CDT Bilateral L4-5 Facet Joint Injection [facility] Department of Orthopedic Surgery Division of Physical Medicine and Rehabilitation Patient name: Doc Emery Date of : 1965 Date of service: 11/10/2021 Doc Emery presents to the fluoroscopy suite for a fluoroscopically guided bilateral L4-5 facetjoint injection as part of conservative treatment for axial low back pain with lumbosacral facet arthropathy. After informed consent was obtained, the patient was positioned in the prone position on the fluoroscopy table. The left L4-5 facet joint was identified under fluoroscopic guidance. The area was prepped with chlorhexidine and draped in a sterile fashion. Using a 25 gauge 2 inch needle, 1-2 mL of 1% lidocaine was infused subcutaneously to anesthetize the region. Then, a 22 gauge 3.5 inchspinal needle was inserted into the facet joint under fluoroscopic guidance. Confirmation into the joint space was obtained with infusion of 0.2 mL of Omnipaque contrast which showed outline of the facet joint. Then a combination of 0.5 mL of 1% lidocaine and 20 mg of 40 mg/mL triamcinalone was infused. The entire procedure was also performed on the right. The patient tolerated the procedure without complications. [...] BILATERAL Schedule Routine, Read Routine (OP Routine) 11/10/2021 3:05 PM CDT Lumbar facet joint pain documented in this encounter Results * IR Facet Block Lumbar Sacral First Level Bilateral (11/10/2021 3:05 PM CDT) Narrative [facility] - 11/10/2021 3:05 PM CDT The images from this study are not interpreted by Radiology. ??Please refer to the physician's procedure / OR operative note. Walter Slaughter MD IMG IR PROCEDURES Final Re sult RAD[facility] documented in this encounter Visit Diagnoses Diagnosis Lumbar facet joint pain documented in this encounter Administered Medications Inactive Administered Medications - up to 3 most recent administrations Medication Order MAR Action Action Date Dose Rate Site iohexoL (OMNIPAQUE) 300 mg iodine/mL injection solution Code/trauma/sedation medication, Starting on Ruth 11/10/21 at 1426 Given 11/10/2021 2:26 PM CDT 2 mL lidocaine PF (XYLOCAINE) 10 mg/mL (1 %) preservative free injection Code/trauma/sedation medication, Starting on Ruth 11/10/21 at 1426, Intra-Procedure (IR), Indications: Administration of Local AnesthesiaIndications:Administratio n of Local Anesthesia Given 11/10/2021 2:26 PM CDT 3 mL triamcinolone (KENALOG) 40 mg/mL injection Code/trauma/sedation medication, Starting on Ruth 11/10/21 at 1433 Given 11/10/2021 2:33 PM CDT 80 mg documented in this encounter Care Teams Oem Sales Manager Relationship Specialty Start Date End Date Mick Flowers MD PCP - General 05/14/17 documented as of this encounter
--- OUTSIDE RECORDS SUMMARY | 2024-06-29 00:29 | XMS_ITS | Encounter Summary ---
Author Organization [facility] Address [address] [place] [address] Care Team Providers Care Front Office Agent Name Role Phone Mick Flowers MD Primary Care Provider [phone] Reason for Referral * Diagnostic Imaging (Routine) - Closed Specialty Diagnoses / Procedures Referred By Contac t Referred To Contact Diagnoses Lumbar facet joint pain Procedures X-ray lumbar spine complete 4+ views Walter Rojas MD [address] [address] Phone: tel: fax: [address] [address] Referral ID Status Reason Start Date Expiration Date Visits Re quested Visits Authorized [id number] Closed 11/03/2021 12/03/2022 1 1 Reason for Visit * Diagnostic Imaging (Routine) - Closed Specialty Diagnoses / Procedures Referred By Contac t Referred To Contact Diagnoses Lumbar facet joint pain Procedures X-ray lumbar spine complete 4+ views Walter Rojas MD [address] [facility] [address] [place] [address] Phone: tel: fax: [address] [address] Referral ID Status Reason Start Date Expiration Date Visits Re quested Visits Authorized [id number] Closed 11/03/2021 12/03/2022 1 1 Encounter Details Date Type Department Care Team (Latest Contact Info) Description 11/03/2021 12:23 PM CDT - 11/03/2021 11:59 PM CDT Hospital Encounter [id number] Radiology [address] [facility] [address] [place] [address] Chronic low back pain, unspecified back pain laterality, unspecified whether sciatica present Discharge Disposition: Discharge to home or self [...] on file Legal Sex Male 3:12 AM 2 YEAR [employer] Gender Identity Not on file Sexual Orientation Not on file 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 on file Not on file documented as of this encounter Medications at Time of Discharge famotidine (PEPCID) 20 mg tabletIndication s:Dyspepsia,Hear tburn [...] Take 81 mg by mouth nightly 2 cholecalciferol (VITAMIN D-3) 1,000 unit Take [...] Procedure Name Priority Date/Time Associated Diagnosis Comments XR SPINE LUMBAR COMPLETE 4 OR MORE VIEWS Schedule Routine, Read Routine (OP Routine) 11/03/2021 12:28 PM CDT Chronic low back pain, unspecified back pain laterality, unspecified whether sciatica present documented in this encounter Results * X-ray lumbar spine complete 4+ views (11/03/2021 12:28 PM CDT) Anatomical Region Laterality Modality Spine N/A Computed Radiogr aphy 11/03/2021 12:4 9 PM CDT Impressions 11/03/2021 12:49 PM CDT Unchanged degenerative disc and facet disease with mild dextroscoliosis. Electronically signed by: Phani Grant M.D. Narrative 11/03/2021 12:49 PM CDT XR SPINE LUMBAR 4 OR MORE VIEWS HISTORY: ??Low back pain. FINDINGS: ??4 views of lumbar spine are obtained and compared with 07/04/2019. There is unchanged mild dextroscoliosis of the lumbar spine. Sagittal alignment is normal. Vertebral body heights are preserved. There is no fracture. There is mild degenerative disc disease at L5-S1. There is mild facet osteoarthritis through the lumbar spine. There is normal lumbar motion on bending. Procedure Note Phani Grant MD - 11/03/2021 XR SPINE LUMBAR 4 OR MORE VIEWS HISTORY: Low back pain. FINDINGS: 4 views of lumbar spine are obtained and compared with 07/04/2019. There is unchanged mild dextroscoliosis of the lumbar spine. Sagittal alignment is normal. Vertebral body heights are preserved. There is no fracture. There is mild degenerative disc disease at L5-S1. There is mild facet osteoarthritis through the lumbar spine. There is normal lumbar motion on bending. IMPRESSION: Unchanged degenerative disc and facet disease with mild dextroscoliosis. Electronically signed by: Phani Grant M.D. Walter Rojas MD IMG XR PROCEDURES Final Re sult documented in this encounter Visit Diagnoses Diagnosis Chronic low back pain, unspecified back pain laterality, unspecified whether sciatica present documented in this encounter Care Teams Front Office Agent Relationship Specialty Start Date End Date Mick Flowers MD PCP - General 05/14/17 documented as of this encounter
--- OUTSIDE RECORDS SUMMARY | 2024-06-29 00:29 | XMS_ITS | Encounter Summary ---
Author Organization [facility] Address [address] [place] [address] Care Team Providers Care Media Services Coordinator Name Role Phone Mick Flowers MD Primary Care Provider [phone] Reason for Visit * Auth/Cert Specialty Diagnoses / Procedures Referred By Christy t Referred To Contact Diagnoses Neurogenic bladder Neurogenic bladder [N31.9] Procedures ID CYSTOURETHROSCOPY INJ CHEMODENERVATION BLADDER ID CYSTOURETHROSCOPY INJECTION BOTOX 300 UNITS CYSTOSCOPY Referral ID Status Reason Start Date Expiration Date Visits Re quested Visits Authorized [id number] 1 1 Encounter Details Date Type Department Care Team (Late st Contact Info) Description 11/23/2021 10:54 AM CDT Anesthesia Event [facility] Operating Room [address] [place] [address] Adam Peguero MD [address] [place] [address] Camille Hale NP [address] [facility] [phone] [place] [address] Anesthesia Record Procedure Summary Procedure Name Responsible Anesthesiologist Anesthesia Start Time Anesthesia Stop Time INJECTION BOTOX 300 UNITS (Face) Adam Peguero MD 11/23/21 1054 11/23/21 1145 Events Date Time Event Comment 11/23/2021 0901 In Preop 0954 AN Equip Check 1005 1054 An Start 1058 In Room 1058 An Start Data 1102 An Induction The patient was reevaluated immediately before moderate or deep sedation use and before anesthesia induction. 1103 An LMA 1105 Anesthesia Ready 1112 Proc Start 1112 Incision Start 1131 Proc Fin 1136 Airway Removed 1139 an stop data 1141 Out of Room 1145 Handoff to RN I completed my handoff [...] disposition at the time of handoff: PACU 1145 An Stop Meds Name Total midazolam 2 mg/2 mL 2 mg fentaNYL PF 100 mcg Lidocaine IV 1% 50 mg propofol 200 mg ondansetron PF 4 mg ketorolac 30 mg dexamethasone 4 mg/mL 4 mg ceFAZolin (ANCEF) 1 gram/10 mL [...] by Anjana Zaragoza 07/04/22 1357 by Inga Mcgill RN RETIRED Wound 05/12/19; 1358; Othe r (Comment); Penis; 07/04/22; 1356; Removal date unknown/not present on admission 05/12/19 1358 by Beth Romero RN 07/04/22 1356 by Inga Mcgill RN RETIRED Surgical Site 09/12/19; 1325; No ; [...] Vanna Harris RN Oral/Nasal Airway Placement Date: 11/23/21; Placement Time: (in palce on arrival to pacu); Non-Surgical Airway Device: Oral pharyngeal airway; Removal Date: 11/23/21; Removal Time: 1200 11/23/21 0000 by Wilma Hurtado RN 11/23/21 1200 by Wilma Hurtado RN Peripheral IV Placement Date: 11/23/21; Placement Time: 0938; Catheter Size: 20 G; Orientation: Anterior, Left; Location: Forearm; Site Prep: Chlorhexidine; Technique: Anatomical landmarks; Inserted by: Joshua; Insertion Attempts: 1; Patient Tolerance: Tolerated well; Removal Date: 11/23/21; Removal Time: 1230 11/23/21 0938 by Radha Lewis RN 11/23/21 1230 by Daylin Billings RN Supraglottic Airway Placement Date: 11/23/21; Placement Time: 1112 (created via procedure documentation); Mask Ventilation: 1; Size: 5; Insertion Attempts: 1; Removal Date: 11/23/21; Removal Time: 1136 11/23/21 1112 by Dee Sanon CRNA 11/23/21 1136 by Dee Sanon CRNA documented in this encounter Social History [...] on file 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 Gender Identity Not on file Sexual Orientation Not on file 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 on file Not on file documented as of this encounter OR Notes * Anesthesia Postprocedure Evaluation - Adam Peguero MD - 11/23/2021 1:34 PM CDT Patient: Doc Emery Procedure Summary Date: 11/23/21 Room / Location: [facility] 14 / [facility] Anesthesia Start: 1054 Anesthesia Stop: 1145 Procedures: INJECTION BOTOX 300 UNITS (N/A Face) CYSTOSCOPY (N/A Urethra) Diagnosis: Neurogenic bladder (Neurogenic bladder [N31.9]) Surgeons: Marquis Lopez MD Responsible Provider: Adam Peguero MD Anesthesia Type: general ASA Status: 2 Anesthesia Type: general Last vitals BP 129/65 Pulse 60 Temp 36 ??C (96.8 ??F) (Temporal) Resp 17 SpO2 99% Anesthesia Post Evaluation Patient location during evaluation: PACU Patient participation: complete - patient participated Level of consciousness: fully awake Pain score: 2 Pain management: adequate Airway patency: adequate Evidence of recall: no Cardiovascular status: hemodynamically stable Respiratory status: acceptable Hydration status: euvolemic Pt is: normothermic Nausea/Vomiting status: none No complications documented. * Anesthesia Procedure Notes - Dee Sanon CRNA - 11/23/2021 11:11 AM CDT Associated Order(s): Airway Airway Patient location: OR Urgency: elective Indications for airway management: anesthesia Difficult airway: no Staff: Placed by: COMMUNICATIONS CONSULTANT: Dee Sanon CRNA Emergent airway documentation: Risks and benefits discussed: yes Consent obtained: yes Consent given by: patient Airway prep: Preoxygenated: yes Patient position: sniffing MILS maintained throughout: yes Mask difficulty assessment: 1 - vent by mask Spontaneous ventilation during airway: absent Sedation level during airway: GA Final airway details: Final airway type: supraglottic airway Final supraglottic airway: IGel SGA size: 5 Number of attempts: 1 * Anesthesia Preprocedure Evaluation - Adam Peguero MD - 11/11/2021 10:14 AM CDT Images from the original note were not included. [facility] Preoperative Evaluation Record Evaluation type/location: TPAP from [facility] Planned procedure site: [facility] OR Date: 11/11/21 NOTE: This note represents [...] negatives: CAD (denies, noted in history items); SC ; CABG ; systolic/diastolic dysfunction w/o CHF [...] of vaccination status is available in the [facility] Immunization tab. . Plan for pre-procedure COVID19 testing: Patient is asymptomatic and up to date with their COVID-19 vaccine. COVID-19 testing not indicated. . Patient instructions were provided via telephone and in writing sent via [employer]. Patient verbalized understanding of preoperative plan. TPAP [...] Medication protocol when under care of a COMMUNICATIONS CONSULTANT Planned anesthesia: General Informed Consent: Anesthesia plan [...] Diagnosis Comments ID AN PROCEDURE PLACEHOLDER Routine 11/23/2021 11:11 AM CDT ID AN ELECTIVE SUPRAGLOTTIC AIRWAY Routine 11/23/2021 11:11 AM CDT documented in this encounter Results * ID AN ELECTIVE SUPRAGLOTTIC AIRWAY, ID AN PROCEDURE PLACEHOLDER (11/23/2021 11:11 AM CDT) Narrative Dee Sanon CRNA - 11/23/2021 11:11 AM CDT Dee Sanon CRNA ? 11/23/2021 11:12 AM Airway Patient location: OR Urgency: elective Indications for airway management: anesthesia Difficult airway: no Staff: Placed by: COMMUNICATIONS CONSULTANT: Dee Sanon CRNA Emergent airway documentation: Risks and benefits discussed: yes Consent obtained: yes Consent given by: patient Airway prep: Preoxygenated: yes Patient position: sniffing MILS maintained throughout: yes Mask difficulty assessment: 1 - vent by mask Spontaneous ventilation during airway: absent Sedation level during airway: GA Final airway details: Final airway type: supraglottic airway Final supraglottic airway: IGel SGA size: 5 Number of attempts: 1 us Adam Peguero MD ANESTHESIA ORDERABLES Fi nal Result documented in this encounter Visit Diagnoses [...] incision., Indications: Prophylaxis, SurgicalIndications:Prophy laxis, Surgical Given 11/23/2021 11:06 AM CDT 2,000 mg dexAMETHasone (DECADRON) 4 mg/mL injection intravenous, Administer over 2 Minutes, As needed, Starting on Sun11/23/21 at 1131, Anesthesia Intra-op Given 11/23/2021 11:31 AM CDT 4 mg fentaNYL (SUBLIMAZE) preservative free injection intravenous, As needed, Starting on Sun11/23/21 at 1102, Anesthesia Intra-op Given 11/23/2021 11:02 AM CDT 100 mcg ketorolac (TORADOL) 30 mg/mL (1 mL) injection intravenous, As needed, Starting on Sun11/23/21 at 1131, Anesthesia Intra-op Given 11/23/2021 11:31 AM CDT 30 mg Lactated Ringer's (LR) infusion 30 mL/hr, intravenous, Continuous, Starting on Sun11/23/21 at 0945, For 4 hours, Pre-Op, Use a 500 ml bag for End Stage Renal Disease Patients. Discontinue if fluid still running once patient arrives to floor. Rate/Dose Verify 11/23/2021 10:54 AM CDT 30 mL/hr New Bag 11/23/2021 9:39 AM CDT 30 mL/hr 30 mL/hr lidocaine PF (XYLOCAINE) 10 mg/mL (1 %) preservative free injection intravenous, As needed, Starting on Sun11/23/21 at 1102, Anesthesia Intra-op Given 11/23/2021 11:02 AM CDT 50 mg midazolam (VERSED) 1 mg/mL injection intravenous, As needed, Starting on Sun11/23/21 at 1054, Anesthesia Intra-op Given 11/23/2021 10:54 AM CDT 2 mg ondansetron (ZOFRAN) injection intravenous, Administer over 2 Minutes, As needed, Starting on Sun11/23/21 at 1131, Anesthesia Intra-op Given 11/23/2021 11:31 AM CDT 4 mg propofoL (DIPRIVAN) 10 mg/mL IV intravenous, As needed, Starting on Sun11/23/21 at 1102, Anesthesia Intra-op Given 11/23/2021 11:02 AM CDT 200 mg documented in this encounter Care Teams Media Services Coordinator Relationship Specialty Start Date End Date Mick Flowers MD PCP - General 05/14/17 documented as of this encounter
--- OUTSIDE RECORDS SUMMARY | 2024-06-29 00:29 | XMS_ITS | Encounter Summary ---
Author Organization [facility] Address [address] [place] [address] Phone Care Team Providers Care Media Center Director School Name Role Phone Mick Flowers MD Primary Care Provider [phone] Encounter Details Date Type Department Care Team (Late st Contact Info) Description 09/13/[address] 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
--- OUTSIDE RECORDS SUMMARY | 2024-06-29 00:29 | XMS_ITS | Encounter Summary ---
Author Organization [facility] Address [address] [place] [address] Phone Care Team Providers Care Transportation Department Supervisor Name Role Phone Mick Flowers MD Primary Care Provider Reason for Referral * Diagnostic Imaging (Routine) - Closed Specialty Diagnoses / Procedures Referred By Contac t Referred To Contact Diagnoses Lumbar facet joint pain Procedures X-ray lumbar spine complete 4+ views Walter Rojas MD [address] [facility] [address] [place] [address] Phone: tel: fax: [address] [phone] Referral ID Status Reason Start Date Expiration Date Visits Re quested Visits Authorized [id number] Closed 11/03/2021 12/03/2022 1 1 * Diagnostic Imaging (Routine) - Closed Specialty Diagnoses / Procedures Referred By Contac t Referred To Contact Radiology Diagnoses Lumbar facet joint pain Procedures IR Facet Block Lumbar Sacral First Level Bilateral Walter Rojas MD [address] [facility] [address] [place] [address] Phone: tel: fax: [address] [phone] Referral ID Status Reason Start Date Expiration Date Visits Re quested Visits Authorized [id number] Closed 11/03/2021 12/03/2022 1 1 Reason for Visit * Reason Comments Pain Encounter Details Date Type Department Care Team (Late st Contact Info) Description 11/03/2021 11:15 AM CDT Office Visit [facility] Orthopaedic Surgery [address] [facility] [address] [place] [id number] Walter Rojas MD [address] [place] [address] Lumbar facet joint pain (Primary Dx); Lumbar spondylosis Social History Tobacco Use Types Packs/Day Years [...] on file 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 male who presents to the office today for follow-up. He reports recurrent lumbar pain that does not refer or radiate. I last saw him for this approximately 2 years ago, provided L4-L5 facet injection. He reports this provided him relief of pain until recently when symptoms recurred. There was no specific injury, but reintroduction of golf aggravated symptoms that have not abated with rest. Pain is aching in nature, right greater than left, mild to moderate severity. He continues to do his therapeutic exercise program for the same diagnosis, as previously learned inphysical therapy. Function related to multiple sclerosis has been reasonably stable, though a gradual decline in ambulatory safety has caused him to need early shelter from work. Past medical history and review of systems are otherwise without significant change from previous visit. PHYSICAL EXAM: On examination today, the patient is alert and appropriate, and in no apparent distress. He transfers [id number] without difficulty. He ambulates independently. Lumbar range of motion provokes painwith extension, left and right rotation/extension. Dural tension signs are absent. Supine hip rangeof motion does not provoke pain. Symptoms of chief complaint localized to the right greater than left L4/L5 deep paraspinal region. There is no significant axial spine or bony posterior pelvic tenderness to palpation. REVIEW OF X-RAYS/STUDIES: Lumbar spine x-rays are ordered and visualized today: Stable mild multilevel degenerative changes, mild scoliosis compared to 2020 x-rays. Prior lumbar spine MRI is reviewed: Mild to moderate multilevel degenerative changes including moderate facet arthropathy at L4-5. IMPRESSION/DIAGNOSIS: Recurrent extension biased low back pain, previously responsive to L4/L5 facet injection under fluoroscopy guidance with 2 years of pain relief. He has a regular exercise program established through physical therapy, ongoing. He inquires about repeating facet injection which I think is reasonable. TREATMENT PLAN: We discussed things in detail today. I recommend: 1. Lumbar spine x-rays, four views before leaving today, we will provide him results and follow-up via patient portal. 2. Bilateral L4/L5 facet injections under fluoroscopy guidance. 3. Continue therapeutic exercises independently. 4. We discussed the potential role for additional formal physical therapy. The rational for all recommendations, as well as relevant risks, are discussed with the patient in detail. The patient expresses understanding, comfort and agreement with the plan, all questions are answered. No orders of the defined types were placed in this encounter. This note was dictated using uSamp software. This note was not read in detail; therefore, variances and inaccuracies may occur. Walter Dockery MD [facility] Orthopedics documented in this encounter Plan of [...] IMG IR PROCEDURES Final Re sult [id number] * X-ray lumbar spine complete 4+ views [...] Diagnosis Lumbar facet joint pain- Primary Lumbar spondylosis Lumbosacral spondylosis without myelopathy Chronic low back pain, unspecified back pain laterality, unspecified whether sciatica present Lumbar facet joint pain documented in this encounter Discontinued Medications Medication Sig Discontinue Reason Start Date End Da te famotidine (PEPCID) 10 mg tabletIndications:Dyspep grace Take 10 mg by mouth as needed Alternate therapy 11/03/2021 atorvastatin (LIPITOR) 40 mg tablet Alternate therapy 09/17/2021 11/03/2021 documented as of this encounter Historical Medications * This list may reflect changes made after this encounter. famotidine (PEPCID) 20 mg tabletIndication s:Dyspepsia,Hear tburn Take 1 tablet (20 mg total) by mouth 2 (two) times a day as needed for indigestion or heartburn 10/06/2021 atorvastatin (LIPITOR) 40 mg tablet 09/17/2021 2 added in this encounter Care Teams Transportation Department Supervisor Relationship Specialty Start Date End Date Mick Flowers MD PCP - General 05/14/17 documented as of this encounter
--- OUTSIDE RECORDS SUMMARY | 2024-06-29 00:29 | XMS_ITS | Encounter Summary ---
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
--- OUTSIDE RECORDS SUMMARY | 2024-06-29 00:29 | XMS_ITS | Encounter Summary ---
Author Organization [facility] Address [address] [place] [address] Phone Care Team Providers Care Flash Welding Machine Operator Name Role Phone Mick Flowers MD Primary Care Provider [phone] Encounter Details Date Type Department Care Team (Late st Contact Info) Description 04/28/2022 Orders Only [facility] Urology [address] [facility] [address] [place] [address] Marquis Lopez MD [address] [facility] [address] [place] [address] Urinary tract infection without hematuria, [...] on file 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 Gender Identity Not on file Sexual Orientation Not on file 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 Final ??Specimen Source: ?? Urine, catheter ??Specimen Quality: ??Adequate ??Result: ?Mixed genital padmini isolated. These superficial ? bacteria are not indicative of a urinary tract ? infection. No further organism identification is ? warranted on this specimen. If clinically ? indicated, recollect clean-catch, mid-stream ? urine and transfer immediately to Urine Culture ? Transport Tube. Urine, bladder 05/10/2022 8: 43 AM HVAC COMMERCIAL SALESPERSON 05/10/2022 8:44 AM HVAC COMMERCIAL SALESPERSON us Marquis Lopez MD LAB MICROBIOLOGY - GENERAL ORD ERABLES Final Result [facility] [address] [place] [address] documented in this encounter Visit Diagnoses Diagnosis Urinary tract infection without hematuria, site unspecified- Primary OAB (overactive bladder) Urge urinary incontinence Urge incontinence documented in this encounter Care Teams Flash Welding Machine Operator Relationship Specialty Start Date End Date Mcik Flowers MD PCP - General 05/14/17 documented as of this encounter
--- OUTSIDE RECORDS SUMMARY | 2024-06-29 00:29 | XMS_ITS | Encounter Summary ---
Author Organization [facility] Address [address] [facility] [address] [place] [address] Phone Care Team Providers Care Side Stitching Machine Operator Name Role Phone Mick Flowers MD Primary Care Provider [phone] Reason for Visit * Consultation (Routine) - Closed Specialty Diagnoses / Procedures Referred By Contac t Referred To Contact Neurology Diagnoses Multiple sclerosis (HCC) Mick Flowers MD [address] [place] [address] Phone: tel: fax: [facility] (All Locations) Referral ID Status Reason Start Date Expiration Date V isits Requested Visits Authorized [id number] Closed Specialty Services Required 01/12/2022 02/11/2023 1 1 Encounter Details Date Type Department Care Team (Late st Contact Info) Description 05/09/2022 11:00 AM IRONWORKER APPRENTICE Office Visit 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 on file Not on file documented as of this encounter Last Filed Vital Signs Vital Sign Reading Time Taken Comments Blood Pressure 145/102 05/09/2022 10:36 AM IRONWORKER APPRENTICE Pulse 71 05/09/2022 10:36 AM IRONWORKER APPRENTICE Temperature 36.3 ??C (97.3 ??F) 05/09/2022 10:[address] Respiratory Rate - - Oxygen Saturation - - Inhaled Oxygen Concentration - - Weight 81.6 kg (180 lb) 05/09/2022 10:36 AM IRONWORKER APPRENTICE Height 177.8 cm (5' 10 ) 05/09/2022 10:36 AM IRONWORKER APPRENTICE Body Mass Index 25.83 05/09/2022 10:36 AM IRONWORKER APPRENTICE documented in this encounter Patient Instructions * Patient Instructions* Cherry Minor MD - 05/09/2022 11:00 AM IRONWORKER APPRENTICE Dear Mr. Emery: It was nice to see you today. [...] to refer you to a blood pressure change control manager. I feel likeyou may need your medications [...] PSA and yearly skin survey by a educational aide. Keep in touch. Sincerely, Cherry Minor WORKER APPRENTICE WORKER APPRENTICE WORKER APPRENTICE WORKER APPRENTICE WORKER APPRENTICE WORKER APPRENTICE WORKER APPRENTICE documented in this encounter Progress Notes * Cherry Minor MD - 05/09/2022 11:00 AM CST Time spent on 05/09/22 reviewing chart prior to visit: 3:25am - 3:40am (15min) Time spent during visit itself 11:10am - 1157am (47min) Time spent on 05/09/22 after visit orders/charting etc: 1255pm - 1257pm ( 2min) Total time on 05/09/22 by [facility]: 15 + 47 + 2 = 64 total by [facility] Patient Name: MARITA EMERY Medical Record Number (MRN): [id number] Date of (): 1965 Encounter Date: 05/09/2022 Chief Complaint Marita Emery is a 56 y.o. male seen today for MS followup, MS medication management & MS Symptom management. Pt was last seen on 09-13-21 by [facility]. Some portions of this note were [...] MRI examination, there are approximately 10 of FLAIR/Z0ichdpjelwmtm lesions. There are multiple foci of hyperintensity on FLAIR and T2-weighted images within the white matter compatible with demyelinating plaques of multiple sclerosis. This includes periventricular, callosal,cortical lesions. New Brain T2 Lesions: 4, T1 Hypointense Black Holes : 0 Enhancing Brain Lesions: 0 T2/FLAIR [place] of Disease: Mild, less than 10 typical [...] incontinence, but no issues in many months. [facility] saw him 12/14/2020 and wrote: Interim: [...] along with the bladder. Thanks, Marita Emery [phone] Today 12-14-20 on this telemed visit, Mr [...] measurements of PR09 (Mr Emery) in the [facility] longitudinal study. This patient belongs to the [...] Neurological History: Mr. Emery is a former [place] worker in [facility] and has lived in [place], [place]. He is Rt handed. Mr Emery [...] LP (abnormal), MRI. Diagnosis made when in [employer]. 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 MS [...] or fatigue. Not excessive. Bowel problems developed [id number], with intermittent diarrhea and stool incontinence. No [...] 05/09/22 (exam done by Dr Bateman with [facility] watching) He did not bring a walking aid. General: MARITA EMERY is a well-developed, well-nourished [...] Rapid alternating movements are normal in UEs. Wzli-kujz-dtcl is normal bilat. Rhythmic toe tapping - [...] 10-08-2018 (most recent F2F exam done by [facility]); Walk Aid: none General: MARITA [...] is normal. Rapid alternating movements are normal. Fhgi-qasm-zpnk is normal. Rhythmic toe tapping - normal. [...] Assessment/Plan Diagnosis Plan 1. Multiple sclerosis (CMS/HCC) (HCC) Ambulatory referral to Neurology 2. Neurogenic [...] RTC 6 months/prn. Patient Instructions Dear Mr. Emery: It was nice to see you today. [...] to refer you to a blood pressure change control manager. I feel likeyou may need your medications [...] PSA and yearly skin survey by a educational aide. Keep in touch. Sincerely, Cherry Minor . [...] Minor MD Professor of Neurology [facility] Department of Neurology [facility] ; WORKER APPRENTICE documented in this encounter Plan of Treatment Not on file documented as of this encounter Visit Diagnoses Diagnosis Multiple sclerosis (HCC)- Primary Multiple sclerosis Neurogenic bladder disorder Neurogenic bladder, NOS High risk medication use documented in this encounter Orders Outpatient Referral Count Last Ordered Date st Ordered Date AMB REFERRAL TO NEUROLOGY 1 05/09/2022 documented in this encounter Care Teams Side Stitching Machine Operator Relationship Specialty Start Date End Date Mick Flowers MD PCP - General 05/14/17 documented as of this encounter
--- OUTSIDE RECORDS SUMMARY | 2024-06-29 00:29 | XMS_ITS | Encounter Summary ---
Author Organization [facility] Address [address] [facility] [address] [place] [address] Phone Care Team Providers Care Facility Maintenance Supervisor Name Role Phone Mick Flowers MD Primary Care Provider [phone] Reason for Visit * Reason Onset Date Comments MRI scheduling 09/02/2021 Encounter Details Date Type Department Care Team (Late st Contact Info) Description 09/02/2021 Telephone [facility] Multiple Sclerosis [address] [place] [phone] Manuela Almanzar RMA MRI scheduling Social History Tobacco Use Types Packs/Day Years [...] on file 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 PROSPER Jacob L HOUSEMAN documented in this encounter Plan of Treatment Not on file documented as of this encounter Visit Diagnoses Not on filedocumented in this encounter Care Teams Facility Maintenance Supervisor Relationship Specialty Start Date End Date Mick Flowers MD PCP - General 05/14/17 documented as of this encounter
--- OUTSIDE RECORDS SUMMARY | 2024-06-29 00:29 | XMS_ITS | Encounter Summary ---
Author Organization [facility] Address [address] [place] [address] Care Team Providers Care Atomic Fuel Assembler Name Role Phone Mick Flowers MD Primary Care Provider [phone] Reason for Visit * Auth/Cert Specialty Diagnoses / Procedures Referred By Christy t Referred To Contact Diagnoses Neurogenic bladder Neurogenic bladder [N31.9] Procedures [place] CYSTOURETHROSCOPY INJ CHEMODENERVATION BLADDER [place] CYSTOURETHROSCOPY INJECTION BOTOX 300 UNITS CYSTOSCOPY Referral ID Status Reason Start Date Expiration Date Visits Re quested Visits Authorized [id number] 1 1 Encounter Details Date Type Department Care Team (Late st Contact Info) Description 11/23/2021 8:54 AM CDT - 11/23/2021 12:41 PM CDT Hospital Encounter [facility] Operating Room [address] [place] [address] Marquis Lopez MD [address] [facility] [address] [place] [address] Discharge Disposition: Discharge to home or self [...] on file Legal Sex Male 3:12 AM IRS AGENT Gender Identity Not on file Sexual Orientation [...] 07/03/2022 3:45 PM Noam Leonard MD GI [id number] [facility]O Contact your doctor if: - Fever over 100.8F - Pain uncontrolled by prescribed medications - Nausea/vomiting - Persistent pain greater than 2 weeks - Unable to urinate Sunday through Sunday, 8 AM to 4:30 PM, call [phone] and ask for a member of your doctor's team. For urgent matters after 6:00 PM during the week, on weekends and holidays, call [phone] and ask to have the Urology [employer] Retail Service Merchandiser Physician paged for you. documented in this [...] TPAP from [facility] Planned procedure site: [facility] OR Date: 11/11/21 NOTE: This note [...] negatives: CAD (denies, noted in history items); VT ; CABG ; systolic/diastolic dysfunction w/o CHF [...] via telephone and in writing sent via INTTRA. Patient verbalized understanding of preoperative plan. TPAP [...] List Status: Nurse Complete Set By: Inga Paul, RN at 11/08/2021 4:46 PM Taking? Last [...] 40 % cream Past Week 08/05/20 -- Provider, MD Bettie No current facility-administered [...] into the bladder Surgeon: Marquis Lopez MD Accounts Payable Or Receivable Clerk: Don Rodriguez MD Anesthesia: General Complications: None [...] is not able to accommodate a 23 Nepali rigid cysto sheath. We do not have [...] we can only do this [facility] at [facility] but not at [facility] since we do have the flexible needle [...] Resident - Assisting Anesthesiologist: Adam Peguero MD SOUND RECORDING TECHNICIAN: Dee Sanon CRNA Custom Home Installer: Ngozi Hilton RN Scrub Relief: Estela Billings [...] Preoperative Assessment and Planning CPAP Clinic Location: [facility] The night before your surgery: * Do [...] of surgery. * If having surgery at [facility], you may want to bring a credit card if you want to use our Mobile Pharmacy for your discharge medications. Mobile pharmacy is not available at [facility], the [facility], or the [facility]. Outpatient Surgery: * You must have [...] your insurance card, a photo ID (example: Medical Biller's License) and a method of payment for [...] Pathway to Excellent Care by the followinglink: [email or web address] How To Prepare Your [...] for the most updated information. Information on [facility]: Please view [email or web address] (Patient & Visitor Information) for additional details regarding Advanced Directive forms, AWARE, directions, parking information, lodging, Internet access, dining and more. Information on [facility]: Please view [email or web address] (Patient and Visitor Information) for parking/directions and more. For MyChart information, to activate account or password recovery, please go to [email or web address] or call [phone] (toll-free: [phone]). Information for Suicide Prevention: National Suicide Prevention Lifeline (5-565- 416-XZOL (2706)). Surgery Times: For patients having surgery @ [facility], [facility] or [facility], if your surgeon's office has not notified you of your surgery time by NOON THE BUSINESS DAY BEFORE your surgery, please call [phone] and ask for your surgeon'soffice. * Perioperative [...] not in Chart: Copy requested from family Communication/Gluing Machine Operator Needs Communication Needs: Glasses Assistive Devices/DME: Eyeglasses [...] in a congregate living facility (ex. assisted living/longterm facility, long-term, fci)?: No Have you tested positive for COVID-19 [...] 20 seconds. Use an alcohol- based hand kennel attendant that contains at least 60% alcohol if [...] Diagnosis Neurogenic bladder- Primary Neurogenic bladder, NOS documented in this encounter [...] 9:39 AM CDT 30 mL/hr 30 mL/hr documented [...] 0.4 mg/mL injection 0.04-0.4 mg 1 11/23/2021 onabotulinumtoxin A (BOTOX) injection 1 06/2021 ondansetron (ZOFRAN) injection 4 mg 1 11/23 prochlorperazine (COMPAZINE) injection 5 mg 1 11/23/2021 scopolamine patch 72 hour 1 patch 1 022 sodium chloride 0.9% flush 0.5-20 mL 1 06/2021 sodium chloride 0.9% irrigation 1 2 sodium chloride bacteriostat ic 0.9 % injection 1 11/23/2021 Discharge Count Last Ordered Date First Orde red Date DISCHARGE PATIENT 1 11/23/2021 documented in this encounter Care Teams Atomic Fuel Assembler Relationship Specialty Start Date End Date Mick Flowers MD PCP - General 05/14/17 documented as of this encounter
--- OUTSIDE RECORDS SUMMARY | 2024-06-29 00:29 | XMS_ITS | Encounter Summary ---
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 Alpesh Lopez Medical/Surgical Information: Outcome/Plan: Rescheduled surgery from 05/31/2022 to 05/24/2022. Mailed paperwork. documented in this encounter Plan of Treatment Not on file documented as of this encounter Visit Diagnoses Not on filedocumented in this encounter Care Teams Administration Specialist Relationship Specialty Start Date End Date Mick Flowers MD PCP - General 05/14/17 documented as of this encounter
--- OUTSIDE RECORDS SUMMARY | 2024-06-29 00:29 | XMS_ITS | Encounter Summary ---
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 Remind Patients of our location. [address] 2. If you have any financial questions please call [phone] 3. If you need to cancel or reschedule your appointment please call [phone] 4. Ask them the covid screening questions a. Have you had any respiratory symptoms including cough, shortness of breath/trouble breathing, fever, sudden loss of taste or smell, sore throat, or body aches? Yes [] No [x] b. Are you currently being tested for Covid-19? Yes [] No[x] c. Have you had any contact with a person known to be positive for Covid-19 or a person under investigation? Yes [] No [x] 5. If the patient answers yes to any of the Covid -19 screening questions they need to be rescheduled for at least 14 days later. 6. Inform patient that only 1 guest/visitor will be allowed into the clinic. If possible, come by themselves. 7. Inform patient to wear a mask and any guest will also need a mask. Procedure Patients 1. Are you on any blood thinners? Yes [] No [x] 2. Are you currently on any antibiotics? Yes [] No [x] 3. Have you had a fever in the last 7 days? Yes [] No [x] 4. Are you diabetic? Yes [] No [x] 5. In the last 2 weeks have you received the COVID-19 vaccine? Yes [] No [x] 6. In the next 2 weeks do you plan on receiving the COVID-19 vaccine? Yes [] No [x] If the answer is yes to either question 5 or 6 then please connect the patient with Dayanna Ely, the services coordinator at [phone]. If a direct number is requested by the patient please give them [phone]. documented in this encounter Plan of Treatment Not on file documented as of this encounter Visit Diagnoses Not on filedocumented in this encounter Care Teams Aircraft Engine Specialist Relationship Specialty Start Date End Date Mick Flowers MD PCP - General 05/14/17 documented as of this encounter
--- OUTSIDE RECORDS SUMMARY | 2024-06-29 00:29 | XMS_ITS | Encounter Summary ---
Author Organization [facility] Address [address] [place] [address] Phone Care Team Providers Care Lunch Cook Name Role Phone Mick Flowers MD Primary Care Provider [phone] Encounter Details Date Type Department Care Team (Late st Contact Info) Description 09/09/2021 Telephone [facility] Surgery [address] [place] [address] Marquis Lopez MD [address] [facility] [address] [place] [address] Social History Tobacco Use Types Packs/Day Years [...] file Legal Sex Male 3:12 AM DIRECTOR OF ACCOUNTS RECEIVABLE Gender Identity Not on file Sexual Orientation Not on file 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 * Telephone Encounter - Maddi Juan EMT - 09/09/2021 11:56 AM CDT Pt called to follow up about insurance approval for botox injections. Please call pt back. documented in this encounter Plan of Treatment Not on file documented as of this encounter Visit Diagnoses Not on filedocumented in this encounter Care Teams Lunch Cook Relationship Specialty Start Date End Date Mick Flowers MD PCP - General 05/14/17 documented as of this encounter
--- OUTSIDE RECORDS SUMMARY | 2024-06-29 00:29 | XMS_ITS | Encounter Summary ---
Author Organization [facility] Address [address] [place] [address] Phone Care Team Providers Care Fire Prevention Chief Name Role Phone Mick Flowers MD Primary Care Provider [phone] Reason for Referral * Consultation (Routine) - Closed Specialty Diagnoses / Procedures Referred By Contac t Referred To Contact Neurology Diagnoses Multiple sclerosis (HCC) Cherry Minor MD [address] [place] [address] Phone: tel: fax: [facility] (All Locations) Referral ID Status Reason Start Date Expiration Date V isits Requested Visits Authorized [id number] Closed Specialty Services Required 09/02/2021 10/02/2022 1 1 Question Answer Please select the performing region: [facility] (All Locations) [167] # 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 * Consultation (Routine) - Closed Specialty Diagnoses / Procedures Referred By Contac t Referred To Contact Neurology Diagnoses Multiple sclerosis (HCC) Cherry Minor MD [address] [place] [address] Phone: tel: fax: [facility] (All Locations) Referral ID Status Reason Start Date Expiration Date V isits Requested Visits Authorized [id number] Closed Specialty Services Required 09/02/2021 10/02/2022 1 1 Encounter Details Date Type Department Care Team (Late st Contact Info) Description 09/13/2021 10:00 AM CDT Office Visit [facility] Multiple Sclerosis [address] [place] [address] Cherry Minor MD [facility] [address] [place] [address] Multiple sclerosis (CMS/HCC) (HCC) (Primary Dx); High risk medication use; Neurogenic bladder; Abnormality of gait and mobility Social History [...] on file 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 Gender Identity Not on file Sexual Orientation Not on file 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 on file Not on file documented as of this encounter Last Filed Vital Signs Vital Sign Reading Time Taken Comments Blood Pressure 142/89 09/13/2021 9:29 AM CDT Pulse 70 09/13/2021 9:29 AM CDT Temperature 36.7 ??C (98.1 ??F) 09/13/2021 9:29 AM CD T Respiratory Rate - - Oxygen Saturation - - Inhaled Oxygen Concentration - - Weight 82.6 kg (182 lb) 09/13/2021 9:29 AM CDT Height 177.8 cm (5' 10 ) 09/13/2021 9:29 AM CDT Body Mass Index 26.11 09/13/2021 9:29 AM CDT documented in this encounter Patient Instructions * Patient Instructions* Cherry Minor MD - 09/13/2021 10:00 AM CDT Dear Mr Emery, It was nice to see you today. Your exam was unfortunately worse than my last close exam in 2019, almost 3 years ago. You have some detectable weakness in your right hand, you are having falls, your gait is clearly worse. You cannot hop as well as in 2019. I will order PT for your gait to be donee at [facility]. Marcia or Dorita from my office may call you about this. If they don't, contact us. I think you need a cane for safety. 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 This is what I would recommend for you, if you choose. We discussed the pros/cons of the B-cell depleting monoclonal antibodies (Abs), including ocrelizumab (Ocrevus) These are IV infusions performed every 6 months at a certified infusion center. These monoclonal antibodies are very similar; ocrelizumab is fully humanized and rituximab is a chimeric mouse/human monoclonal Ab. Ocrelizumab has been approved for relapsing MS and for primary progressive MS since August 2016. Ocrelizumab reduced relapse rate by ~45% compared to high- dosed beta-interferons in relapsing MS patients. Ocrelizumab slowed progression by ~ 25% compared to placebo in primary progressive MS. We discussed common side effects which include, but are not limited to, infusion reactions and infections. Serious side effects including, but not limited to, infusion reactions, severe skin/mouth reactions, and infections including progressive multifocal leukoencephalopathy (PML). OUSMANE virus infection resulting in PML has been observed with anti-CD20 Abs in association with risk factors (e.g., immunocompromised patients, concurrent or prior immunosuppressant treatments), but is almost unheard ofin people on Ocrevus for MS and not otherwise immunosuppresssed. Infections seen at greater rates in those taking ocrelizumab included respiratory tract infections, herpetic infections including herpes zoster, herpes simplex, oral herpes, genital herpes, and other herpes virus infections. Infections were predominantly mild to moderate in severity. There may be an increase of malignancies associated with B cell depletion. Baseline screening for this medication includes CBC, liver function tests, Hepatitis B surface Ag, Hep B core antibody, and Hep C Ab, and include IgM, IgG, and other serum immunoglobulin levels, and immune competence panel. These can be done at [facility] near your home. I recommend (regardless) that you stay up-to-date on all CANCER screenings, such as colonoscopy, Dermatology Skin Survey, PSA and other screening. Because vaccination with live-attenuated or live vaccines is not recommended during treatment and after discontinuation until B-cell have repleted, patients should get any needed live virus vaccinations prior to the first dose of the B cell depleting drug. In addition, any other non-live vaccinations or boosters should be completed 4-6 weeks prior tofirst dose. Patients should do their best to avoid mosquito bites. Follow up blood work may include not only routine CBC and CMP every 6 -12 months, but also immune competence panel, quantitative immunoglobulins and JCV Index. Periodic Skin Surveys and cancer screens including mammograms are highly recommended. Patients on ocrelizumab or other B-cell depleting monoclonal Ab should see their prescribing neurologist or a surrogate every 6 months, and must alert the physician's office immediately if they develop any unusual or prolonged infections. Women of childbearing age should discuss any plans to become with their doctors before trying to conceiveif receiving B-cell depleting agents. We will not continue to prescribe these drugs for patients who are not compliant with required monitoring. A study in [place] by Dontrell Lawler used 80mg/day of simvastatin in progressive MS patients and showed slowed worsening in those on simvastatin vs placebo. That was a small study that thus far has not been corroborated, but a large phase 3 study is underway (no results yet0. For this reason, I recommend simvastatin over atorvastatin and at the dose used in the [place] study of 80mg/day. I have ordered 40mg/day simvastatin for you to take for 2 weeks, then go up to the 80mg size pill daily and let me know if you are having muscle aches or other problems. We will need to check your liver tests and CPK blood test after you've been on simvastatin for 4-6 weeks. This can be done at [facility] or at [facility] near your house. If you choose to initiate ocrevus, then several baseline labs need to be done as well and can be done at [facility]. I hope you do make this choice, as I can see (as you can) clear deterioration in your neuro exam. I would like to hear from you via portal within 2 weeks, or immediately after your MRIs. We'll decide when you should see us again at that point. Sincerely, Cherry Minor MD documented in this encounter Ordered Prescriptions Prescription Sig Dispense Quantity Refills Last Filled Start Date End Date simvastatin (ZOCOR) 80 mg tablet Take 1 tablet (80 mg total) by mouth nightly 30 tablet 11 09/13/2021 2 simvastatin (ZOCOR) 40 mg tablet Take 1 tablet (40 mg total) by mouth nightly 15 tablet 1 09/13/2021 2 documented in this encounter Progress Notes * Cherry Minor MD - 09/13/2021 10:00 AM CDT Time Cherry Minor spent on 09/13/21 reviewing chart prior to visit: 7:56am - 8:01am (5min) Time spent during visit itself (ROBERTO): 10:12 - 11: 13am ( 61min) Time spent on 09/13/21 after visit orders/charting etc: 11:13 - 11:38am ( 25min) TOTAL on 09/13/21 (ROBERTO) - 91 total minutes. Patient Name: MARITA EMERY Medical Record Number (MRN): [id number] Date of (): 1965 Encounter Date: 09/13/2021 Chief Complaint Marita Emery is a 55 y.o. male seen today for PPMS followup, medication management, symptom management. Pt was last seen on 02/17/2021 by Rafia Rich NP. At that time, he reported progressive worsening. She wrote: Interval History: A few concerns today 1. R leg weakness- may be more noticeable. Had a fall while working. This prompting the visit 2.Unsure if he should continue working- to discuss- accommodations, new/differnet job, disability, other options. 3. Fecal urgency and incontinence had worsened. Had a GI work up and takes med for IBS prn. Does not seem diet related. Long history of urinary issues and ED. Dr. Lopez manages- botox q 6 months, CISC 6+ times a day. Endex for ED. ?? Currently R leg dragging. R dorsiflexion and hip flexor weakness. No formal PT Goes to gym and does leg presses can do equal weight. Some weakness with hamstring. 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 His walking has declined, with dragging of the R foot. He uses a ski pole when walking long sets of stairs or walking > 100 yards. He has developed intermittent pain in his R hip. He had another fall this past Sunday. He has seen a physical therapist and continues to do home exercises. He is starting to discuss disability with his employer. His bladder symptoms are stable. He continues to receive q6 month botox injection for his long standing urinary symptoms. He is still struggling with fecal urgency and incontinence. He is scheduled to see GI at [facility] on 02/17/22. He has COVID-19 infection twice (once confirmed). I [facility]19[facility]21[facility] Last bout was with Omicron (presumed) in He has received 3 doses of the Pfizer vaccine. Results: Last Labs: 05/2021: COVID-neg. No CBC since 08/2020: WNL. 04/18/21: CMP - WNL, LIPID PANEL-WNL. 11/08/20: colonoscopy - polyp biopsy - benign. Last MRI: September 2021 pending [facility] last saw him 12/14/2020 and wrote: Interim: I [...] along with the bladder. Thanks, Marita Emery [phone] Today 12-14-20 on this telemed visit, Mr [...] had urinary incontinence controlled with BOTOX injections. Results: Last Labs: Lipid panel 08-23-2020 showed elevated LDL and elevated total cholesterol. I told him of this. Had COVID-19 05-28-2020 (See Swab +). Lasted 7 days (loss of taste, low grade fever). (I added to [facility] Registry)Had normal Vit D (55), normal TSH last labs. Last MRI: LAST regular MRI was Jul 2007 in our system. It had about 5-7 mostly non-specific lesions. BRAIN only. No CELs.. No cord MRIs. There was one lesion in the anterior corpus callosum,??and oneleft frontal juxtacortical lesion, but no infratentorial lesions and no cord MRIs at all. This is my examination of those images on my home laptop on 02-15-2020.?? Here??are??the clinical scores and MRI measurements of PR09 (Mr Emery) in the [facility] longitudinal study. This patient belongs to the PPMS group.??He was relatively stable in clinical performance, except for the slow down of 25ftw??on the last test. Lesion volume clearly increased over time. In addition, sanders matter R2t* also showed a decreasing trend over time. ?? Label gender mssubtype edss tw25ft d9hpt nd9hpt [...] Neurological History: Mr. Emery is a former [employer] worker in [employer] and has lived in [place]. He is Rt handed. Marita Emery has??PPMS. ??He is on Ampyra 10 mg BID for gait; but no disease- modifying therapy.?? Has had MS since 1989??(age 24).??First symptom was bladder related.?Urgency and Frequency. No UTIs. No Family History of MS??(3 children - college age).?? He reports that it took 6 months to figure out the diagnosis. Diagnosis: LP (abnormal), MRI. Diagnosis made when in [place]. 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 MS??for??>25 years. In fact, pt states his first MS doctor was Dr Usman Rosenbaum.??He??was a former patient of Dr. Betzaida Warren.?? Pt reports only a slowly downhill course. He has had some slow downhill progression of worsening vision OD.?? Has not ever taken baclofen or tizanidine.?Does have sexual dysfunction and uses EDEX for this. Followed by Dr. Juice Lopez for these issues (bladder &??sexual dysfunction). No depression and denies cognitive problems or fatigue. ??Not excessive. Bowel problems developed [id number], with intermittent diarrhea and stool incontinence. No stool incontinence when having a normal BM. He had COVID-12 Jun 2020; it was a mild case and did well. Later, he was vaccinated with an mRNA vaccine. Added case to the [email or web address] Registry. ? Some portions of this note were copied forward from our previous note dated 12/14/2020, confirmed today at this visit and revised as appropriate. 09/13/2021 . Pt is on NO DMT No Known Allergies Current Outpatient Medications: ??? ALPRAZolam (XANAX) 0.25 mg tablet, Take 0.25 mg by mouth nightly as needed for sleep , Disp: , Rfl: 1 ??? aspirin 81 mg enteric coated tablet, Take 81 mg by mouth nightly, Disp: , Rfl: ??? atorvastatin (LIPITOR) 20 mg tablet, Take 20 mg by mouth every morning , Disp: , Rfl: ??? cholecalciferol (VITAMIN D-3) 1,000 unit, Take 1,000 Units by mouth every morning, Disp: , Rfl: ??? EDEX 20 mcg injection, 20 mcg by intracavity route as needed for erectile dysfunction , Disp: ,Rfl: ??? famotidine (PEPCID) 10 mg tablet, Take 10 mg by mouth as needed , Disp: , Rfl: ??? felodipine (PLENDIL) 5 mg 24 hr tablet, Take 5 mg by mouth every morning , Disp: , Rfl: ??? hydroCHLOROthiazide (HYDRODIURIL) 25 mg tablet, Take 25 mg by mouth every morning , Disp: , Rfl: ??? losartan (COZAAR) 100 mg tablet, Take 100 mg by mouth every morning , Disp: , Rfl: ??? POTASSIUM CHLORIDE ER 20 mEq CR tablet, Take 20 mEq by mouth every morning , Disp: , Rfl: 5 ??? urea (CARMOL) 40 % cream, Apply 1 application topically every morning , Disp: , Rfl: ??? simvastatin (ZOCOR) 40 mg tablet, Take 1 tablet (40 mg total) by mouth nightly, Disp: 15 tablet, Rfl: 1 ??? simvastatin (ZOCOR) 80 mg tablet, Take 1 tablet (80 mg total) by mouth nightly, Disp: 30 tablet, Rfl: 11 Patient Active Problem List Diagnosis ??? Neurogenic [...] Left 05/04/2020 ??? SHOULDER ARTHROSCOPY Left unknown Family History Problem Relation Age of Onset ??? Multiple sclerosis Other Family history of Multiple sclerosis; ??? Hypertension Other Family history of Hypertension; ??? Melanoma Mother Family history of malignant melanoma - (Added by TW Conv) ??? Cancer Mother ??? Alcohol abuse Father ??? Cancer Father ??? Hypertension Father ??? Anesthesia problems Neg Hx Patient reports no family history of neurological diseases. Social History Tobacco Use ??? Smoking status: Never Smoker ??? Smokeless tobacco: Never Used Vaping Use ??? Vaping Use: Never used Substance Use Topics ??? Alcohol use: Yes Comment: SOCIAL ??? Drug use: Yes Frequency: 2.0 times per week Types: Marijuana Vital Signs BP 142/89 (BP Location: Right arm, Patient Position: Sitting) Pulse 70 Temp 36.7 ??C (98.1 ??F)(Temporal) Ht 177.8 cm (5' 10 ) Wt 82.6 kg (182 lb) BMI 26.11 kg/m?? Review of Systems A 12 point review of systems has been performed by the patient and has been reviewed with me duringthis visit. Unless checked yes , all other systems negative except per here, chief complaint or HPI. See scanned sheet. Exam 09/13/2021 General: ??MARITA ??GISSELL is a well-developed, well-nourished male in no acute distress. ??The moodis normal. ??There is no pedal edema. ? Neurologic Mental Status: ??He is awake, alert and oriented. ??Speech is fluent and he follows commands without difficulties. ?? Cranial Nerves: Vision: ??20/20 O.D (more difficulty than left). ??20/20 O.S. near card, no correction. Right temporal pallor OD. ??There is no red desaturation?? No APD. Pupils are O.D./O.S.: ??2/2 -->??1/1. ??Extraocular movements are full. ??There is no nystagmus. ?NIURKA is not present. Facial sensation is intact to light touch. ??The face is symmetric. ?There is no dysarthria. ??Shoulder shrug is equal. ??Tongue movements are normal. ?? Motor Examination: No Lhermitte's ??In UEs, tone is normal bilaterally. No drift of UEs. FFMs, intact bilat. ?? In LEs, tone is not normal. Has clear spastic catch right knee, and increased in right ankle and left ankle. ? Strength is 5/5 throughout UEs. In the LEs,??we detect 4+/5 in the right psoas, and hamstrings as well. His right foot dorsiflexes slower than left, and is no longer 5/5. Right foot dorsiflexion 4/5 and big toe dorsiflexion are now 4/5. 5/5 on the left.?There is no postural tremor. ?? Sensation: ??There is no Lhermitte's. Vibratory sensation in the right great toe is mild-moderatelydecreased. Vibratory sensation in the left great toe is mild- moderately decreased. These seem worsethan in 2019 exam.??Vibration in the fingers are 6-7/8 on the left and 6/8 on the right. Romberg isnegative. ?? Coordination: ??Finger to nose is normal RUE, but fine intention tremor (consistently seen) LUE. ??Rapid alternating movements are normal in UEs. Gqel-zjkp-ecul is normal. Rhythmic toe tapping - normal. ?No rebound of Ues. Toe tapping slower RLE. Ambulation: ?The patient is able to walk on his heels, but not nearly as well with RLE. ??The patient is able to walk on his toes but not as well with RLE. Gait is R HP.. Tandem gait is normal; 10 steps. ??Hops 4-5 times on right foot (very unstable when he does hop and not far off ground. ??Hops 10 times on left foot. ?Has more difficultyhopping on right leg. Reflexes: Reflexes in UEs are 3+ and symmetrical throughout. Asymmetry??in the knees and at the ankles, where has 4+ (Clonus - 1-2 beats) in right knee and right ankle, 2+ in left.??In Knees, 3++ at Left knees bilaterally??with 1-2 beats clonus right knee (so 4+ DTR right knee). with unequivocal right??and left UPgoing toes. Neurologic??Exam??10-08-2018 (most recent F2F exam done by [facility]); ??Walk Aid: ??none ?? General: ??MARITA ??GISSELL is a well-developed, well-nourished male in no acute distress. ??The moodis normal. ??There is no pedal edema. ? Neurologic Mental Status: ??He is awake, alert and oriented. ??Speech is fluent and he follows commands without difficulties. ?? Cranial Nerves: Vision: ??20/20 O.D. ??20/13 O.S. ??Wall Chart. ?There is no red desaturation??Funduscopic - clearcut temporal pallor OD, not OS. ??No APD. Pupils are O.D./O.S.: ??2/2 -->??/. ??Extraocular movements are full. ?There is no nystagmus. ?NIURKA is not present. Facial sensation is intact to light touch/temp. ??The face is symmetric. ?There is no dysarthria. ??Shoulder shrug is equal. ??Tongue movements are normal. ?? Motor Examination: ??In UEs, tone is normal bilaterall except in his right index finger extension is mildly weaker in RUE, but the APB and opponens are 5/5/ and equal to the left. ??In LEs, tone is not normal. Has clear spastic catch right knee, and increased in right ankle and left ankle. ? Strength is 5/5 throughout UE, In the LEs,??I detect 4+++/5 in the right hamstrings as well. His right foot dorsiflexes slower than left, but is 5/5. LLE is 5/5 throughout.?Toe flexion and toe extension is 5/5 bilat.?There is no postural tremor. ?? Sensation: ??There is no Lhermitte's. Vibratory sensation in the right great toe is mildly decreased. Vibratory sensation in the left great toe is mildly decreased. ??Romberg is negative. ?? Coordination: ??Finger to nose is normal. ??Rapid alternating movements are normal. ??Xnph-nymw-tpjh is normal. Rhythmic toe tapping - normal. ? Ambulation: ?The patient is able to walk on his heels. ??The patient is able to walk on his toes. Tandem gait is normal; 10 steps. ??Hops 10x RLE, but less easily than LLE ??Hops 10 times on left foot. ? Reflexes: Reflexes in UEs are hyper throughout. Today, asymmetry at knees and at the ankles, where has 4+ (Clonus) in right ankle, 3+ in left.??In [place], 3++ at knees bilaterally??with unequivocal right??UPgoing toes, left mute.?We did 25FTW today, and compared to 01-07-2018 when last seen in the study In , was 4.6 sec and 4.1 sec (no assistance). ??Today, was 4.07sec and 3.98 sec (no assist). So, no worsening. ?? OCT - mild temporal thinning OD?-??PRIOR visits (not 2021) ?? EDSS??on 02-17-2020: Still??: 4.0 based on bladder? Counseling and Education We discussed the pros/cons of the B-cell depleting monoclonal antibodies (Abs), including ocrelizumab (Ocrevus) and rituximab (Rituxan). These are IV infusions performed every 6 months at a [facility] center. These monoclonal antibodies are very similar; ocrelizumab is fully humanized and rituximab is a chimeric mouse/human monoclonal Ab. Ocrelizumab has been approved for relapsing MS and for primary progressive MS since August 2016. Ocrelizumab reduced relapse rate by ~45% compared to high- dosed beta-interferons in relapsing MS patients. Ocrelizumab slowed progression by ~ 25% compared to placebo in primary progressive MS. Rituximabis sometimes used off-label for patients with refractory MS activity. We discussed common side effects which include, but are not limited to, infusion reactions and infections. We discussed serious side effects including, but not limited to, infusion reactions, severe skin/mouth reactions, and infections including progressive multifocal leukoencephalopathy (PML). OUSMANE virus infection resulting in PML has been observed with anti-CD20 Abs in association with risk factors (e.g., immunocompromised patients, concurrent or prior immunosuppressant treatments). Infections seen at greater rates in those taking ocrelizumab included respiratory tract infections, herpetic infections including herpes zoster, herpes simplex, oral herpes, genital herpes, and other herpes virus infections. Infections were predominantly mild to moderate in severity. There may be an increase of malignancies associated with B cell depletion. Baseline screening for this medication includes CBC, liver function tests, Hepatitis B surface Ag, Hep B core antibody, and Hep C Ab, and often include IgM, IgG, and other serum immunoglobulin levels, and immune competence panel. Additional testing and screening, done at the discretion of the prescribing physician, may include JCV Index, Dermatology Skin Survey, mammogram and other screening. Because vaccination with live-attenuated or live vaccines is not recommended during treatment and afterdiscontinuation until B-cell have repleted, patients should get any needed live virus vaccinations prior to the first dose of the B cell depleting drug. In addition, any other non-live vaccinations or boosters should be done 6 weeks prior to first dose. Patients should do their best to avoid mosquito bites. Follow up blood work may include not only routine CBC and CMP every 6 -12 months, but also immune competence panel, quantitative immunoglobulins and JCV Index. Periodic Skin Surveys and cancer screens including mammograms are highly recommended. Patients on ocrelizumab or other B-cell depleting monoclonal Ab should see their prescribing neurologist or a surrogate every 6 months, and must alert the physician's office immediately if they develop any unusual or prolonged infections. Women of childbearing age should discuss any plans to become with their doctors before trying to conceiveif receiving B-cell depleting agents. We will not continue to prescribe these drugs for patients who are not compliant with required monitoring. Assessment/Plan Diagnosis Plan 1. Multiple sclerosis (CMS/HCC) (HCC) Ambulatory referral to Neurology Ambulatory referral to Neurology 2. High risk medication use 3. Neurogenic bladder 4. Abnormality of gait and mobility Assessment ?? PPMS, with clearcut progression over past 3 years. Am encouraging ocrelizumab ?? Neurogenic bladder (uses botox) ?? Neurogenic bowel - a larger problem for him. Plan PT, Change atorvastatin to eventually 80mg/day simvastatin, Strongly consider Ocrevus (needs baseline labs if decides). MRIs - pending. Has appt with [facility] GI specialist. Patient Instructions Dear Mr Emery, It was nice to see you today. Your exam was unfortunately worse than my last close exam in 2019, almost 3 years ago. You have some detectable weakness in your right hand, you are having falls, your gait is clearly worse. You cannot hop as well as in 2019. I will order PT for your gait to be donee at [facility]. Marcia or Dorita from my office may call you about this. If they don't, contact us. I think you need a cane for safety. 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 This is what I would recommend for you, if you choose. We discussed the pros/cons of the B-cell depleting monoclonal antibodies (Abs), including ocrelizumab (Ocrevus) These are IV infusions performed every 6 months at a certified infusion center. These monoclonal antibodies are very similar; ocrelizumab is fully humanized and rituximab is a chimeric mouse/human monoclonal Ab. Ocrelizumab has been approved for relapsing MS and for primary progressive MS since August 2016. Ocrelizumab reduced relapse rate by ~45% compared to high- dosed beta-interferons in relapsing MS patients. Ocrelizumab slowed progression by ~ 25% compared to placebo in primary progressive MS. We discussed common side effects which include, but are not limited to, infusion reactions and infections. Serious side effects including, but not limited to, infusion reactions, severe skin/mouth reactions, and infections including progressive multifocal leukoencephalopathy (PML). OUSMANE virus infection resulting in PML has been observed with anti-CD20 Abs in association with risk factors (e.g., immunocompromised patients, concurrent or prior immunosuppressant treatments), but is almost unheard ofin people on Ocrevus for MS and not otherwise immunosuppresssed. Infections seen at greater rates in those taking ocrelizumab included respiratory tract infections, herpetic infections including herpes zoster, herpes simplex, oral herpes, genital herpes, and other herpes virus infections. Infections were predominantly mild to moderate in severity. There may be an increase of malignancies associated with B cell depletion. Baseline screening for this medication includes CBC, liver function tests, Hepatitis B surface Ag, Hep B core antibody, and Hep C Ab, and include IgM, IgG, and other serum immunoglobulin levels, and immune competence panel. These can be done at [facility] near your home. I recommend (regardless) that you stay up-to-date on all CANCER screenings, such as colonoscopy, Dermatology Skin Survey, PSA and other screening. Because vaccination with live-attenuated or live vaccines is not recommended during treatment and after discontinuation until B-cell have repleted, patients should get any needed live virus vaccinations prior to the first dose of the B cell depleting drug. In addition, any other non-live vaccinations or boosters should be completed 4-6 weeks prior tofirst dose. Patients should do their best to avoid mosquito bites. Follow up blood work may include not only routine CBC and CMP every 6 -12 months, but also immune competence panel, quantitative immunoglobulins and JCV Index. Periodic Skin Surveys and cancer screens including mammograms are highly recommended. Patients on ocrelizumab or other B-cell depleting monoclonal Ab should see their prescribing neurologist or a surrogate every 6 months, and must alert the physician's office immediately if they develop any unusual or prolonged infections. Women of childbearing age should discuss any plans to become with their doctors before trying to conceiveif receiving B-cell depleting agents. We will not continue to prescribe these drugs for patients who are not compliant with required monitoring. A study in [place] by Dontrell Lawler used 80mg/day of simvastatin in progressive MS patients and showed slowed worsening in those on simvastatin vs placebo. That was a small study that thus far has not been corroborated, but a large phase 3 study is underway (no results yet0. For this reason, I recommend simvastatin over atorvastatin and at the dose used in the [place] study of 80mg/day. I have ordered 40mg/day simvastatin for you to take for 2 weeks, then go up to the 80mg size pill daily and let me know if you are having muscle aches or other problems. We will need to check your liver tests and CPK blood test after you've been on simvastatin for 4-6 weeks. This can be done at [facility] or at [facility] near your house. If you choose to initiate ocrevus, then several baseline labs need to be done as well and can be done at [facility]. I hope you do make this choice, as I can see (as you can) clear deterioration in your neuro exam. I would like to hear from you via portal within 2 weeks, or immediately after your MRIs. We'll decide when you should see us again at that point. Sincerely, Cherry Minor MD * . >50% of the time was spent counseling and/or coordinating care as per above note. Resident Dr. Faith Segundo. And Fellow Dr Sanchez in room entire time. Discussion and decision making was of high-complexity due to the patient's high risk condition, multiple co-morbidities, neuropsychological co-morbidities, cognitive problems, and/or multiple sites of involved disability. The recommended medications are potentially of high risk consequence in theirside effects. Cherry Minor MD Professor of Neurology [facility] ; documented in this encounter Plan of Treatment Scheduled Referrals Name Type Priority Associated Diagnoses Order Schedule Ambulatory referral to Neurology Outpatient Referral Routine Multiple sclerosis (CMS/HCC) (HCC) Expected: 09/16/2021 (Approximate), Expires: 09/02/2022 documented as of this encounter Visit Diagnoses Diagnosis Multiple sclerosis (HCC)- Primary Multiple sclerosis High risk medication use Neurogenic bladder Neurogenic bladder, NOS Abnormality of gait and mobility documented in this encounter Care Teams Fire Prevention Chief Relationship Specialty Start Date End Date Mick Flowers MD PCP - General 05/14/17 documented as of this encounter
--- OUTSIDE RECORDS SUMMARY | 2024-06-29 00:30 | XMS_ITS | Encounter Summary ---
Author Organization [facility] Healthcare Address [address] [place] [address] Care Team Providers Care Public Health Assistant Name Role Phone Mick Flowers MD Primary Care Provider [phone] Encounter Details Date Type Department Care Team (Late st Contact Info) Description 06/21/2020 2:30 PM MER[employer] AND ACQUISITIONS BANKER - 06/21/2020 3:45 PM [employer] AND ACQUISITIONS BANKER Surgery [facility] Operating Room [address] [place] [address] Marquis Kirby MD [address] [facility] [address] [place] [address] INJECTION BOTOX 300 UNITS, Fulguration of Bladder Surgery Details Date/Time Status Location OR Service Patient Class Case Cl ass Case Type Trauma Case? 06/21/2020 2:30 PM Posted [facility] OR POD 1 323 Urology Outpatient Elective Panel 1 Procedure LRB Anes Op Region Wound Class Comments INJECTION BOTOX 300 UNITS, Fulguration of Bladder N/A General Bladder Class I - Clean CYSTOSCOPY N/A General Urethra Class II - [place] an Contaminated Surgeon Surgeon Role Service Panel Marquis Kirby MD Primary Urology 1 Lexii Mcgill MD Resident - Assisting Urology 1 Special Needs 300 UNITS OF BOTOX TO BE MIXED WITH 30 CC NORMAL SALINE IN OR; CHERELLE NEEDLE FOR INJECTION documented in this encounter Social History Tobacco Use Types Packs/Day Years Used Date Smoking Tobacco: Never Smokeless Tobacco: Never Alcohol Use Standard Drinks/Week Comments Yes 0 (1 standard drink = 0.6 oz pur e alcohol) SOCIAL Sex and Gender Information Value Date Recorded Sex Assigned at Not on file Legal Sex Male 3:12 AM [employer] ACQUISITIONS BANKER Gender Identity Not on file Sexual Orientation Not on file 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 on file Not on file documented as of this encounter Last Filed Vital Signs Vital Sign Reading Time Taken Comments Blood Pressure 130/80 06/21/2020 3:30 PM [employer]ITION[employer] B[employer]ER Pulse 59 06/21/2020 3:30 PM [employer] ACQUISITIONS BANKER Temperature 36.2 ??C (97.2 ??F) 06/21/2020 3:04 PM CS T Respiratory Rate 15 06/21/2020 3:30 PM [employer] ACQUISITIONS BANKER Oxygen Saturation 98% 06/21/2020 3:30 PM MER[employer] ACQUISITIONS BANKER Inhaled Oxygen Concentration - - Weight 81.6 kg (180 lb) 05/26/2020 3:50 PM [employer] ACQUISITIONS BANKER Height 177.8 cm (5' 10 ) 05/26/2020 3:50 PM MER[employer]ERS AND ACQUISITIONS BANKER Body Mass Index 25.83 05/26/2020 3:50 PM MER[employer]ERS AND ACQUISITIONS BANKER documented in this encounter Discharge Instructions * Discharge Instructions* Lexii Mcgill MD - 06/21/2020 2:31 PM [employer] AND ACQUISITIONS BANKER DISCHARGE INSTRUCTIONS Call your doctor if: * [...] have large blood clots in your urine. - Sunday through Sunday, 8 AM to 5 PM, call [phone] and ask for a member of your doctor's team. - For emergencies after 5 PM during the week, on weekends and holidays, call [phone] and ask to have the Urology Ground Crewman Aircraft Support Physician paged for you. Diet: Return to previous diet. Activity * Do NOT drive or operate machinery if you are taking narcotic pain medicine. * You may take showers. * Take short frequent walks every day. Climbing stairs is OK. ADDITIONAL INSTRUCTIONS: Instructions following cystoscopy ??? Drink two 8-ounce glasses of water each hour for 2 hours ??? The following are potential complications from cystoscopy 1. Burning with urination- this is common, and occurs because the scope may have irritated the urethra. It typically improves within 24 hours, unless you had this symptom prior to the procedure. For relief, try a warm bath or holding a warm washcloth over the urethral opening. If you notice continued burning, you should call your urologist, as you could have developed an infection. Likely, you will need to drop off a urine sample at your doctor's office or the laboratory. 2. Blood in the urine- this is also very common and should clear up with fluid. If you are passing some small clots, you should also drink lots of fluids to clear it up. If it doesn't clear, if clotsworsen, or you are unable to urinate, you should call your doctor or come to the emergency room. 3. Difficulty urinating or inability to urinate- this may occur after the procedure, probably because the urethra is irritated. If you are unable to urinate you should come to the emergency room or the office because you will need a catheter placed. You can call your doctor's office to inform them,but you will be instructed to come in. 4. Fevers- on rare occasions you may get a urinary tract infection after the cystoscopy. Please call your doctor or come to the emergency room if you have fevers above 101 degrees. FOLLOW UP: Marquis Kirby MD will call you to arrange your next follow up visit. The clinic will call you to schedule a follow-up appointment. If you do not hear from them of if you have questions in the mean time, please call . Active issues requiring follow up: none Test results pending at discharge: None ERS AND ACQUISITIONS BANKER documented in this encounter Medications at Time [...] as needed for sleep 1 06/27/2018 3 atorvastatin (LIPITOR) 20 mg tabletIndication s:hyperlipidemia Take 20 mg by mouth every morning 2 baclofen (LIORESAL) 10 mg tablet TAKE 1 TABLET BY MOUTH IN THE EVENING FOR 2 TO 3 NIGHTS, THEN SLOWLY GO TO THREE TIMES DAILY TOLERATED 90 tablet 5 03/11/2020 1 cholecalciferol (VITAMIN D-3) 1,000 unit Take 1,000 [...] in this encounter H&P Notes * Marquis Kirby MD - 06/21/2020 12:28 PM CST I have reviewed the H&P, examined the patient, and endorse the findings as written. Plan of Care : Based on the above findings, I consider Doc Emery to be an acceptable risk for : Procedure(s): INJECTION BOTOX 300 UNITS CYSTOSCOPY Physical examination: GENERAL: Patient is a healthy appearing female who is well developed, well nourished in no acute distress. Eyes: Pupils equal, round. Sclera anicteric. Chest: Lungs clear to auscultation bilaterally. Heart: Regular rate and rhythm. Abdomen: Soft and non-tender, no masses, no hernia. No CVA tenderness. Skin: No rashes or lesions. Musculoskeletal: Normal strength. No edema. Neurologic: Alert, nonfocal. Psychiatric: Normal affect and mood, oriented x 3. ERS AND ACQUISITIONS BANKER Source Note - Ami Guadalupe NP - 05/27/2020 2:17 PM MER[employer]ERS AND ACQUISITIONS BANKER Images from the original note were not included. Center for Preoperative Assessment and Planning Preoperative Evaluation Record Evaluation type/location: TPAP from [facility] Planned procedure site: [facility] PVT OR (Pod 1) Date: 05/27/20 NOTE: This note represents a preoperative evaluation initiated via telephone interview. NO PHYSICALEXAM was performed at the time of initial assessment. A physical exam may be added to this note anddocumented below. Anesthesia Evaluation Doc Emery is a 54 y.o. male Procedure(s): INJECTION BOTOX 300 UNITS CYSTOSCOPY Pre-Op Diagnosis Codes: * Neurogenic bladder [N31.9] HISTORY HPI Doc Emery is a 53 y.o. male who is being evaluated prior [...] negatives: CAD (denies, noted in history items); [place] ; CABG ; systolic/diastolic dysfunction w/o CHF [...] headaches Endocrine / Other + Infectious disease (no UTI in the last year, currently asymptomatic ) - UTI. + Eye [...] chest pain; palpitations; orthopnea; pedal edema; PND; Sickle Cell disease/trait; previous transfusion; transfusion reaction; melena/hematochezia; easy bruising; bleeding problems; syncope; dizziness; numbness/tingling; hard of hearing; heartburn; nausea; dysphagia; diarrhea; dentures/partials; chipped/loose teeth; abdominal pain; diaphoresis and no unexpected weight change PAT Summary and Plans Cardiac risk classification of planned procedure: low cardiac risk. Preoperative assessment status: lab tests ordered. Additional comments: Doc Emery is a 54 y.o. male who is being evaluated prior to undergoing a low cardiac risk surgery. Revised Cardiac Risk Index factors are (none) for a total RCRI of 0 out of6. Functional capacity is 6-10 METs. PRELIMINARY Obstructive sleep apnea (ROSALINDA) screening status is STOP-Bang=4 suggesting moderate risk for ROSALINDA. Blood bank needs for day of procedure: No type and screen needed Patient with No known exposure to COVID19 and no concerning symptoms of COVID19. Plan for pre-procedure COVID19 testing: Telephone assessment performed. Request placed for pre-procedure COVID19 testing to be performed on 05/28. [facility] will contact patient to schedule testing, surgeon's office to follow results. [facility] reviewed from 03/15/20 and unremarkable Pending labs/tests include: none This assessment was performed via telephone. Therefore the physical exam has been deferred to the day of surgery team. The patient was provided with preoperative instructions for their medications. The patient was instructed to shower/bathe the night prior and the morning of the planned procedure using an antibacterial soap. Patient instructions were provided in writing sent via [employer]. Patient verbalized understanding ofpreoperative plan. Preoperative evaluation performed by Ami Guadalupe NP on 05/27/20 at 2:23 PM. TPAP assessment complete. . Patient Active Problem List Diagnosis ??? Neurogenic bladder ??? Abnormal gait ??? High risk medication use ??? Hypercholesterolemia ??? Primary insomnia ??? Multiple sclerosis (CMS/HCC) ??? Penile discharge ??? Urethral stricture ??? Urinary tract infection ??? OAB (overactive bladder) Past Medical History: Diagnosis Date ??? Coronary artery disease ??? Hypertension Hypertension ??? Multiple sclerosis (CMS/HCC) Multiple Sclerosis Past Surgical History: Procedure Laterality Date ??? COLONOSCOPY ??? CYSTOSCOPY with botox injection; receives every 6 months ??? FACET BLOCK LUMBAR SACRAL 1 LEVEL LEFT Left 09/12/2019 ??? FACET BLOCK LUMBAR SACRAL 1 LEVEL LEFT Left 05/04/2020 ??? SHOULDER ARTHROSCOPY Left No Known Allergies Med List Status: Nurse Complete Set By: Alexander Harris RN at 05/26/2020 3:50 PM Taking? Last Dose Start Date End Date Provider ALPRAZolam (XANAX) 0.25 mg tablet 05/25/2020 06/27/18 -- Bettie Batres MD atorvastatin (LIPITOR) 20 mg tablet 05/26/2020 -- -- Bettie Batres MD baclofen (LIORESAL) 10 mg tablet 05/26/2020 03/11/20 -- Cherry Minor MD TAKE 1 TABLET BY MOUTH IN THE EVENING FOR 2 TO 3 NIGHTS, THEN SLOWLY GO TO THREE TIMES DAILY TOLERATED Patient taking differently: Take 10 mg by mouth as needed cholecalciferol (VITAMIN D-3) 1,000 unit 05/26/2020 -- -- Bettie Batres MD EDEX 20 mcg injection Past Week 06/11/19 -- Bettie Batres MD felodipine (PLENDIL) 5 mg 24 hr tablet 05/26/2020 07/19/07 -- Bettie Batres MD hydroCHLOROthiazide (HYDRODIURIL) 25 mg tablet 05/26/2020 -- -- Bettie Batres MD losartan (COZAAR) 100 mg tablet 05/26/2020 -- -- Bettie Batres MD POTASSIUM CHLORIDE ER 20 mEq CR tablet 05/26/2020 04/23/18 -- Bettie Batres MD No current facility-administered medications for this encounter. Current Outpatient Medications: ??? ALPRAZolam (XANAX) 0.25 mg tablet ??? atorvastatin (LIPITOR) 20 mg tablet ??? baclofen (LIORESAL) 10 mg tablet ??? cholecalciferol (VITAMIN D-3) 1,000 unit ??? EDEX 20 mcg injection ??? felodipine (PLENDIL) 5 mg 24 hr tablet ??? hydroCHLOROthiazide (HYDRODIURIL) 25 mg tablet ??? losartan (COZAAR) 100 mg tablet ??? POTASSIUM CHLORIDE ER 20 mEq CR tablet Social History Tobacco Use Smoking Status Never Smoker Smokeless Tobacco Never Used Substance and Sexual Activity Alcohol Use Yes Comment: SOCIAL Substance and Sexual Activity Drug Use No Family History Problem Relation Age of Onset [...] within last 720 hours. Romain index score: 95 ERS AND ACQUISITIONS BANKER documented in this encounter Miscellaneous Notes * Op Note - Marquis Kirby MD - 06/21/2020 2:30 PM CST Date of Surgery: 06/21/2020 Preoperative diagnosis: Neurogenic bladder with detrusor overactivity and urge urinary incontinence Post-operative diagnosis: Neurogenic bladder with detrusor overactivity and urge urinary incontinence Procedure: Cystoscopy, injection of 300 units of onabotulinumtoxinA (Botox) into the bladder Surgeon: Marquis Kirby MD Estimator Binding: Lexii Mcgill MD Anesthesia: General Complications: None Estimated blood loss: None Specimen: None Indication for surgery: Patient has neurogenic bladder with detrusor overactivity, and urge urinaryincontiencne, and is here for Botox injection into the bladder to treat urinary incontinence. I havediscussed with patient in detail all risks, benefits and alternatives to the procedure. All questions were answered. The patient wishes to proceed with the procedure as planned. Risks discussed and included, but were not limited to, bleeding, urinary tract infection, incomplete bladder emptying, urinary retention, and need for CIC/medel. Patient is also aware that Botox may not completely make patient completely dry and may fail in some patients. Also repeated injection is necessary to maintainefficacy. Patient consented to proceed with injection of [...] case: Correct Presence Statement: I, Dr. Marquis Kirby, was present throughout the surgery. ERS AND ACQUISITIONS BANKER ERS AND ACQUISITIONS BANKER ERS AND ACQUISITIONS BANKER * Brief Op Note - Marquis Kibry MD - 06/21/2020 2:30 PM CST Operative Progress Note Surgical Team: Surgeon(s) and Role: * Marquis Kirby MD - Primary * Lexii Mcgill MD - Resident - Assisting Anesthesiologist: Jeet Dent Sr., MD PRODUCT SAFETY SPECIALIST: Rocío Tadeo CRNA Jig Bore Tool Maker: Gary Bernal RN Scrub: Taya Peterson RN DATE OF SURGERY : 06/21/2020 Preoperative Diagnosis: Pre-op Diagnosis * Neurogenic bladder [...] Discharge from the operating room was stable Juice Kirby MD Date: 06/21/2020 Time: 2:39 PM TEACHING ATTESTATION : I was present and directly participated in the entire procedure (including opening and closing). ERS AND ACQUISITIONS BANKER ERS AND ACQUISITIONS BANKER * Pre-Procedure Instructions - Ami Guadalupe NP - 05/27/2020 2:14 PM [employer] AND ACQUISITIONS BANKER Center for Preoperative Assessment and Planning CPAP Clinic Location: [facility] The night before your surgery: * Do not eat or drink anything after midnight. This includes candy, mint, gums, chewable antacids (TUMS, Rolaids) and cough drops * Do not smoke after midnight the night before surgery. It is best to stop smoking now to improve your health. The morning of your surgery: * You may brush your teeth and rinse your mouth out. * Do not wear jewelry, body piercings, makeup, hairpins, false eyelashes or contact lenses to the hospital. * Leave any valuables at home or with your family. You may want to bring a credit card if you want to use our Mobile Pharmacy for your discharge medications. Outpatient Surgery: * You must have a [...] on day of surgery if needed ??? atorvastatin (LIPITOR) 20 mg tablet Take morning of surgery ??? baclofen (LIORESAL) 10 mg tablet May take night before as usual ??? cholecalciferol (VITAMIN D-3) 1,000 unit Don't take on day of surgery ??? EDEX 20 mcg injection Don't take on day of surgery ??? felodipine (PLENDIL) 5 mg 24 hr tablet Take morning of surgery ??? hydroCHLOROthiazide (HYDRODIURIL) 25 mg tablet Don't take on day of surgery ??? losartan (COZAAR) 100 mg tablet Don't take on day of surgery ??? POTASSIUM CHLORIDE ER 20 mEq CR tablet Don't take on day of surgery General Instructions For Medications: ?? For medications that you are instructed to [...] bowel prep or special diet before surgery ERS AND ACQUISITIONS BANKER * Perioperative Nursing Note - Alexander Harris RN - 05/26/2020 3:57 PM MER[employer] AND ACQUISITIONS BANKER Center for Preoperative Assessment and Planning Perioperative Nursing Note Telephone Preoperative Evaluation ([facility]) - TELEPHONE ONLY, NO PHYSICAL EXAM Date: 05/26/20 Vitals: 05/26/20 1550 Weight: 81.6 kg (180 lb) Height: 177.8 cm (5' 10 ) CHEST CIRCUMFERENCE: Social History Tobacco Use Smoking Status Never Smoker Smokeless Tobacco Never Used Substance and Sexual Activity Alcohol Use Yes Comment: SOCIAL Substance and Sexual Activity Drug Use No Outpatient Medications Marked as Taking for the 05/31/20 encounter (Hospital Encounter) with Marquis Kirby MD Medication Sig Dispense Refill ??? ALPRAZolam (XANAX) 0.25 mg tablet Take 0.5 mg by mouth nightly as needed for sleep 1 ??? atorvastatin (LIPITOR) 20 mg tablet Take 20 mg by mouth every morning ??? baclofen (LIORESAL) 10 mg tablet TAKE 1 TABLET BY MOUTH IN THE EVENING FOR 2 TO 3 NIGHTS, THEN SLOWLY GO TO THREE TIMES DAILY TOLERATED (Patient taking differently: Take 10 mg by mouth as needed ) 90 tablet 5 ??? cholecalciferol (VITAMIN D-3) 1,000 unit Take 1,000 Units by mouth every morning ??? EDEX 20 mcg injection 20 mcg by intracavity route as needed ??? felodipine (PLENDIL) 5 mg 24 hr tablet Take 5 mg by mouth every morning ??? hydroCHLOROthiazide (HYDRODIURIL) 25 mg tablet Take 25 mg by mouth every morning ??? losartan (COZAAR) 100 mg tablet Take 100 mg by mouth every morning ??? POTASSIUM CHLORIDE ER 20 mEq CR tablet Take 20 mEq by mouth every morning 5 Implants No active implants to display in this view. SKIN Piercings Remaining: No Wound (LDAs) Type of Wound (LDA): (NONE) SCREENINGS Richardson Fall Risk Score (Retired): 15 Romain index score: 95 NUTRITION PATIENT CARE PLANNING Advance Directives (For Healthcare) Advance Directive: Patient has advance directive, copy not in chart Communication/Tax Appraiser Needs Communication Needs: None Assistive Devices/DME: Contacts, Eyeglasses Discharge Planning Type of Residence: Private residence Living Arrangements: Spouse/significant other Support Systems: Spouse/significant other Assistance Needed: WILL BE CARRY OUT CLERK AND SHELF STOCKER AND HELPER Patient expects to be discharged to:: Private residence COVID Screening Covid-19 Screening In the last 10 days have you had any new or worsening cough, SOB, fever (>=100F), body aches, loss of taste or smell, diarrhea or vomiting, or sore throat?: No Have you had close contact with anyone with confirmed or suspected COVID-19 in the past 3 weeks?: No Do you live in or work in a congregate living facility (ex. assisted living/detention facility, longterm, senior care)?: No Have you tested positive for COVID-19 within the last 14 days?: No Have you previously tested positive for COVID-19? No Have you had a COVID -19 exposure [...] 20 seconds. Use an alcohol- based hand clerk typist that contains at least 60% alcohol if soap and water are not available. ADDITIONAL COMMENTS/ FOLLOW UP ERS AND ACQUISITIONS BANKER * Pre-Procedure Instructions - Alexander Harris RN - 05/26/2020 3:46 PM MERGERS AND ACQUISITIONS BANKER PRE-SURGICAL INSTRUCTIONS ??? General Information ?? Surgery location provided to patient. ?? Arrival time and surgical time will be provided by your surgeon. ?? Wear something clean, loose, comfortable and easy to get in and out of. ?? Leave your valuables and any jewelry at home (No metal or piercings are allowed in the operatingroom) ?? Bring your insurance card, a photo ID (like a Milk Bottler's license) and a method of payment for any insurance copay, deductible, or copay for discharge medications. ?? Bring a complete, up to date list of all of your medications including any over the counter medications or supplements you may take. ? How To Prepare Your Skin For Surgery Antiseptic/antibacterial soap will decrease the amount of germs on your skin. It is important to minimize the risk of getting an infection by doing the following: ?? Change all the linens on the bed the night before surgery so you are sleeping on clean fresh sheets and pillowcases. ?? Shower the evening before and the morning of surgery with an antibacterial soap such as Dial or a surgical soap known as chlorhexidine (Hibiclens). You can purchase this soap at any pharmacy or department store or come by our CPAP clinic and we will give it to you free of charge. Do not use thissoap on your face or hair. ?? Wash your hair and face with your regular shampoo (no conditioners) and facial cleanser. ?? Take a shower using ?? cup (2 oz.) of antiseptic soap applied to a clean fresh washcloth. Scrub your entire body from the neck down. If you can't reach the surgical site, such as your back, have someone help you with your shower. Step out of the water and leave soap on your skin for 2 minutes prior to rinsing off. Rinse thoroughly and dry yourself off with a clean fresh dry towel. ?? Wear clean clothes or pajamas to sleep in and on morning of surgery. ?? Nothing extra on the skin or hair such as deodorant, makeup, hair products, lotions, powders, Vaseline, creams, or perfumes the evening before and the morning of surgery. ?? The morning of the surgery repeat the shower process with the remaining ?? cup (2 oz.) of surgical scrub using another fresh wash cloth and towel. ?? Do not shave the morning of surgery. ?? REMEMBER no deodorant, make-up, lotions, powders, creams, Vaseline, oils, conditioners or hair products the morning of the surgery. COVID TESTING PLAN COVID Test Request Placed in Epic to [facility]. Test to be performed on 05/28/20 [place] If you have COVID testing or should have COVID testing for your surgery/procedure, please read below section: If you need to reschedule your COVID test to a different location or if your surgery gets rescheduled, you MUST call [phone] Sunday-Sunday 8am-4:30pm to get your COVID testing rescheduled or your lab order will not be available at Testing Sites. COVID Testing is only valid for up to 96 hours prior to surgery date, unless otherwise specified. If you are unable to reach staff at the above phone number, please call the CPAP Staff at [phone]. This number cannot order a lab test, but can attempt to contact the above number/staff to assist you. We are available Sunday-Sunday 8am-4:30pm . We recommend you Self-Isolate after COVID Testing: Stay at home, if possible until your surgery date. Maintain a 6 foot distance from other people (social distancing). Avoid touching your eyes, nose and mouth with unwashed hands. Wash your hands often with soap and water for at least 20 seconds. Use an alcohol- based hand clerk typist that contains at least 60% alcohol if soap and water are not available. ALL Patients should read below section: All visitors/patients are being asked to wear a clean mask when entering the hospital. COVID 19 Updates & Visitor Policy: Please access [email or web address] for the most updated information. ??? For patients having [facility] @ [facility], if your surgeon's office has not notified you of your surgery time by NOON THE BUSINESS DAY BEFORE your surgery, please call [phone] and ask for your surgeon's office DR KIRBY ERS AND ACQUISITIONS BANKER documented in this encounter Plan of Treatment Not on file documented as of this encounter Procedures Procedure Name Priority Date/Time Associated Diagnosis Comments CYSTOSCOPY 06/21/2020 2:26 PM MERGERS AND ACQUISITIONS BANKER Neurogenic bladder Special Needs 300 UNITS OF BOTOX TO BE MIXED WITH 30 CC NORMAL SALINE IN OR; CHERELLE NEEDLE FOR INJECTION INJECTION BOTOX 06/21/2020 2:26 PM MERGERS AND ACQUISITIONS BANKER Neurogenic bladder Special Needs 300 UNITS OF BOTOX TO [...] MAR Action Action Date Dose Rate Site albuterol 2.5 mg/0.5 mL nebulizer solution 2.5 mg 2.5 mg, nebulization, Once as needed, wheezing, Starting on Sun06/21/20 at 1502, For 1 dose, Phase I, Notify Anesthesiologist. , Indications: Bronchospastic Pulmonary DiseaseIndications:Bronchospastic Pulmonary Disease fentaNYL (SUBLIMAZE) preservative free injection 50 mcg 50 mcg, intravenous, Once as needed, uncontrolled pain on PACU admission, Starting on Sun06/21/20 at 1502, For 1 dose, Phase I, Then proceed to PACU 1st line analgesic., Indications: PainIndications:Pain haloperidol (HALDOL) injection 1 mg 1 mg, intravenous, Once as needed, nausea, vomiting, Starting on Sun06/21/20 at 1502, For 2 doses, Phase I, Indications: Nausea and VomitingIndications:Nausea and Vomiting HYDROmorphone (DILAUDID) injection 0.5 mg 0.5 mg, intravenous, Administer over 2 Minutes, Every 10 min PRN, 1st line for pain, Starting on Sun06/21/20 at 1502, Phase I, Notify Anesthesiologist if total PACU dose reaches 4 mg and pain score 5/10 or more., Indications: PainIndications:Pain Lactated Ringer's (LR) infusion 30 mL/hr, intravenous, Continuous, Starting on Sun06/21/20 at 1430, Pre-Op New Bag 06/21/2020 2:29 PM [employer] B[employer] New Bag 06/21/2020 2:07 PM [employer] 30 mL/hr 30 mL/hr meperidine (DEMEROL) preservative free injection 12.5 mg 12.5 mg, intravenous, Every 10 min PRN, shivering, Starting on Sun06/21/20 at 1502, For 2 doses, Phase I, Max cumulative dose 25 mg., Indications: ShiveringIndications:Shivering naloxone (NARCAN) 0.4 mg/mL injection 0.04-0.4 mg 0.04-0.4 mg, intravenous, Once as needed, other, excessive sedation/respiratory depression, Starting on Sun06/21/20 at 1502, For 1 dose, Phase I, Dilute 0.4 mg with 9 mL NS (final concentration 0.04 mg/mL). For respiratory depression (respiratory rate less than 6), administer 0.4 mg IVP over 30 seconds. For excessive sedation administer 0.04 mg (1 mL) every 1 minute until desired level of alertness. For IV, administer over 30 seconds., Indications: Opioid ToxicityIndications:Opioid Toxicity onabotulinumtoxin A (botulinum toxin type A, BOTOX) 200 unit/20 mL in sodium chloride 0.9% As needed, Starting on Sun06/21/20 at 1449, Intra-Op Given 06/21/2020 2:53 PM [employer] 30 mL Given 06/21/2020 2:49 PM [employer] 30 mL sodium chloride 0.9 % irrigation As needed, Starting on Sun06/21/20 at 1413, Intra-Op Given 06/21/2020 2:13 PM [employer] 3,000 mL Surgical Site sodium chloride 0.9% flush 0.5-20 mL 0.5-20 mL, intra-catheter, As needed, line care, Starting on Sun06/21/20 at 1347, Pre-Op, Flush volume based on line type and size. Flush before and after each use. sterile water irrigation As needed, Starting on Sun06/21/20 at 1458, Intra-Op Given 06/21/2020 2:58 PM [employer] 3,000 mL Surgical Site documented in this encounter Active and Recently Administered Medications Times are shown in [employer]. Scheduled Medication Order 06/19/2020 06/20/2020 06/21/2020 ceFAZolin (ANCEF) 2,000 mg/20 mL in sterile water (premix) 2,000 mg 2,000 mg, intravenous, at 400 mL/hr, Administer over 3 Minutes, Once, On Sun06/21/20 at 1430, For 1 dose, Pre-Op, Administer within 60 minutes of incision., Indications: Prophylaxis, Surgical 1430 (Due) Continuous Medication Order 06/19/2020 06/20/2020 06/21/2020 Lactated Ringer's (LR) infusion 30 mL/hr, intravenous, Continuous, Starting on Sun06/21/20 at 1430, Pre-Op 1407 (New Bag - Prov ider: Omi Boateng RN)1429 (New Bag - Provider: Rocío Tadeo CRNA) PRN Medication Order 06/19/2020 06/20/2020 06/21/2020 albuterol 2.5 mg/0.5 mL nebulizer solution 2.5 mg 2.5 mg, nebulization, Once as needed, wheezing, Starting on Sun06/21/20 at 1502, For 1 dose, Phase I, Notify Anesthesiologist. , Indications: Bronchospastic Pulmonary Disease fentaNYL (SUBLIMAZE) preservative free injection 50 mcg 50 mcg, intravenous, Once as needed, uncontrolled pain on PACU admission, Starting on Sun06/21/20 at 1502, For 1 dose, Phase I, Then proceed to PACU 1st line analgesic., Indications: Pain haloperidol (HALDOL) injection 1 mg 1 mg, intravenous, Once as needed, nausea, vomiting, Starting on Sun06/21/20 at 1502, For 2 doses, Phase I, Indications: Nausea and Vomiting HYDROmorphone (DILAUDID) injection 0.5 mg 0.5 mg, intravenous, Administer over 2 Minutes, Every 10 min PRN, 1st line for pain, Starting on Sun06/21/20 at 1502, Phase I, Notify Anesthesiologist if total PACU dose reaches 4 mg and pain score 5/10 or more., Indications: Pain meperidine (DEMEROL) preservative free injection 12.5 mg 12.5 mg, intravenous, Every 10 min PRN, shivering, Starting on Sun06/21/20 at 1502, For 2 doses, Phase I, Max cumulative dose 25 mg., Indications: Shivering naloxone (NARCAN) 0.4 mg/mL injection 0.04-0.4 mg 0.04-0.4 mg, intravenous, Once as needed, other, excessive sedation/respiratory depression, Starting on Sun06/21/20 at 1502, For 1 dose, Phase I, Dilute 0.4 mg with 9 mL NS (final concentration 0.04 mg/mL). For respiratory depression (respiratory rate less than 6), administer 0.4 mg IVP over 30 seconds. For excessive sedation administer 0.04 mg (1 mL) every 1 minute until desired level of alertness. For IV, administer over 30 seconds., Indications: Opioid Toxicity onabotulinumtoxin A (botulinum toxin type A, BOTOX) 200 unit/20 mL in sodium chloride 0.9% (CANCELED) As needed, Starting on Sun06/21/20 at 1449, Intra-Op 1449 (Given - Provid er: Lexii Mcgill MD)1453 (Given - Provider: Lexii Mcgill MD) sodium chloride 0.9 % irrigation (CANCELED) As needed, Starting on Sun06/21/20 at 1413, Intra-Op 1413 (Given - Provid er: Lexii Mcgill MD) sodium chloride 0.9% flush 0.5-20 mL 0.5-20 mL, intra-catheter, As needed, line care, Starting on Sun06/21/20 at 1347, Pre-Op, Flush volume based on line type and size. Flush before and after each use. sterile water irrigation (CANCELED) As needed, Starting on 06/21/20 at 1458, Intra-Op 1458 (Given - Provid er: Lexii Mcgill MD) documented in this encounter Orders Medications Ordered That Julio Cesar ht Not Have Been Administered Count Last Ordered Date First Ordered Date albuterol 2.5 mg/0.5 mL nebu lizer solution 2.5 mg 1 06/21/2020 ceFAZolin (ANCEF) 2,000 mg/2 0 mL in sterile water (premix) 2,000 mg 1 06/21/2020 fentaNYL (SUBLIMAZE) preserv ative free injection 50 mcg 1 06/21/2020 haloperidol (HALDOL) injection 1 mg 1 06/21 HYDROmorphone (DILAUDID) injection 0.5 mg 1 06/21/2020 meperidine (DEMEROL) preserv ative free injection 12.5 mg 1 06/21/2020 naloxone (NARCAN) 0.4 mg/mL injection 0.04-0.4 mg 1 06/21/2020 sodium chloride 0.9% flush 0.5-20 mL 1 05/26 documented in this encounter Additional Health Concerns Infection Onset Date Last Indicated Resolved Time COVID: Recovered Comment:Added based on recent COVID infection. 06/11/2020 06/11/2020 10/09/2020 3:06 AM C DT documented as of this encounter Care Teams Public Health Assistant Relationship Specialty Start Date End Date Mick Flowers MD PCP - General 05/14/17 documented as of this encounter
--- OUTSIDE RECORDS SUMMARY | 2024-06-29 00:30 | XMS_ITS | Encounter Summary ---
Author Organization [facility] Address [address] [place] [address] Phone Care Team Providers Care Grab Jack Man Name Role Phone Mick Flowers MD Primary Care Provider [phone] Encounter Details Date Type Department Care Team (Late st Contact Info) Description 06/09/2020 Telephone [facility] [address] [place] [id number] Terri Nicholas LPN Social History Tobacco Use Types Packs/Day Years Used Date Smoking Tobacco: Never Smokeless Tobacco: Never Alcohol Use Standard Drinks/Week Comments Yes 0 (1 standard drink = 0.6 oz pur e alcohol) SOCIAL Sex and Gender Information Value Date Recorded Sex Assigned at Not on file 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 Lopez in the OR. TRUCK OPERATOR documented in this encounter Plan of Treatment Not on file documented as of this encounter Visit Diagnoses Not on filedocumented in this encounter Additional Health Concerns Infection Onset Date Last Indicated Resolved Time COVID19 05/28/2020 05/28/2020 06/11/2020 3:07 AM TANK TRUCK OPERATOR documented as of this encounter Care Teams Grab Jack Man Relationship Specialty Start Date End Date Mick Flowers MD PCP - General 05/14/17 documented as of this encounter
--- OUTSIDE RECORDS SUMMARY | 2024-06-29 00:30 | XMS_ITS | Encounter Summary ---
Author Organization [facility] Address [address] [place] [address] Phone Care Team Providers Care Timber Skidder Name Role Phone Mick Flowers MD Primary Care Provider [phone] Encounter Details Date Type Department Care Team (Late st Contact Info) Description 04/05/2021 Orders Only [facility] Multiple Sclerosis [address] [place] [address] [place] [address] Cherry Minor MD [address] [place] [address] Multiple sclerosis (CMS/HCC) (HCC); Abnormality of gait and mobility Social History Tobacco Use Types Packs/Day Years Used Date Smoking Tobacco: Never Smokeless Tobacco: Never Alcohol Use Standard Drinks/Week Comments Yes 0 (1 standard drink = 0.6 oz pur e alcohol) SOCIAL AUDIT-C Answer Date Recorded Q1: How often do you have a drink containing alc ohol? 2-3 times a week 12/06/2020 Q2: How many drinks containi ng alcohol do you have on a typical day when you are drinking? 7 to 9 12/06/2020 Q3: How often do you have si x or more drinks on one occasion? 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 on file Not on file documented as of this encounter Ordered Prescriptions Prescription Sig Dispense Quantity Refills Last Filled Start Date End Date Ampyra 10 mg tablet extended release 12 hrIndications:Mult iple sclerosis (HCC),Abnormality of gait and mobility Take 1 tablet (10 mg total) by mouth every 12 (twelve) hours 60 tablet 5 04/05/2021 06/07/2021 documented in this encounter Plan of Treatment Not on file documented as of this encounter Visit Diagnoses Diagnosis Multiple sclerosis (HCC) Multiple sclerosis Abnormality of gait and mobility documented in this encounter Discontinued Medications Medication Sig Discontinue Reason Start Date End Da te dalfampridine 10 mg tablet extended release 12 hrIndications:walking impairment due to multiple sclerosis Take 1 tablet (10 mg total) by mouth every 12 (twelve) hours 03/30/2021 04/05/2021 dalfampridine 10 mg tablet extended release 12 hrIndications:Multiple sclerosis (HCC),Abnormality of gait and mobility Take 1 tablet (10 mg total) by mouth every 12 (twelve) hours 03/28/2021 04/05/2021 documented as of this encounter Care Teams Timber Skidder Relationship Specialty Start Date End Date Mick Flowers MD PCP - General 05/14/17 documented as of this encounter
--- OUTSIDE RECORDS SUMMARY | 2024-06-29 00:30 | XMS_ITS | Encounter Summary ---
Author Organization [facility] Address [address] [place] [address] Phone Care Team Providers Care Junior Bookkeeper Name Role Phone Mick Flowers MD Primary Care Provider [phone] Reason for Referral * Consultation (Routine) - Closed Specialty Diagnoses / Procedures Referred By Christy t Referred To Contact Physical Therapy Diagnoses Multiple sclerosis (HCC) Abnormal MRI Vitamin D deficiency Abnormality of gait and mobility Neurogenic bladder disorder Incontinence of feces with fecal urgency Rafia Rich CNS [address] [place] [address] Phone: tel: fax: [facility] (All Locations) Referral ID Status Reason Start Date Expiration Date V isits Requested Visits Authorized [id number] Closed Specialty Services Required 02/17/2021 02/17/2022 24 1 Question Answer PTRFR PT Evaluate and Treat Reason for Visit pelvic floor PT Therapy options discussed with patient? Yes Location provided for therapy services is: Patient requested/Patient preferred Please select the performing region: [facility] (All Locations) [[id number]] Please select the performing department: [facility] # of visits: 24 Comments Kanchan Davis, bowel incontinence, Pelvic floor PT Reason for Visit * Reason Comments Follow-up Encounter Details Date Type Department Care Team (Late st Contact Info) Description 02/17/2021 9:30 AM CDT Office Visit [facility] Multiple Sclerosis [address] [place] [phone] Rafia Rich, VALVE REPAIRER RECLAMATION [address] [place] [address] Multiple sclerosis (CMS/HCC) (HCC) (Primary Dx); Abnormal MRI; Vitamin D deficiency; Abnormality of gait and mobility; Neurogenic bladder disorder; Incontinence of feces with fecal urgency Social History Tobacco Use Types Packs/Day Years [...] on file Legal 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 Gender Identity Not on file Sexual Orientation Not on file 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 on file Not on file documented as of this encounter Last Filed Vital Signs Vital Sign Reading Time Taken Comments Blood Pressure 138/92 02/17/2021 9:23 AM CDT Pulse 91 02/17/2021 9:23 AM CDT Temperature 36.2 ??C (97.2 ??F) 02/17/2021 9:23 AM CD T Respiratory Rate - - Oxygen Saturation - - Inhaled Oxygen Concentration - - Weight 81.2 kg (179 lb) 02/17/2021 9:23 AM CDT Height 177.8 cm (5' 10 ) 02/17/2021 9:23 AM CDT Body Mass Index 25.68 02/17/2021 9:23 AM CDT documented in this encounter Patient Instructions * Patient Instructions* Rafia Rich, UZAIR - 02/17/2021 9:30 AM CDT It was nice to meet you today. We covered a lot. 1. R leg and foot weakness: Continue to be extra cautious. Try a Foot-Up brace that you can get on line. Continue your exercises. Meet with PT for an evaluation and to see if they have other suggestions/exercises. At [facility]- MS trained. We may re-try ampyra in the future (generic now so a little easier to get). 2. Future job: Continue as you are now but be extra careful. Ask your boss if there are other options within your company. Consider training a new person to fill your role. Consider a more desk-like job with the proper training. If you need us to write for accommodations we will happily do this. I am hoping you may have some gains after PT. Don't leave the workplace with out reaching out to us.I would want you to meet with our team at the [facility] to explore all options. If we would get to the point in which you would consider applying for disability we would help you with this and the MS Society is also able to help. If you leave the work place it does not mean you would or could not work or do some other activity ( volunteer, etc). 3. Fecal urgency/incontinence: I want you to talk to your PCP and see if you could do a trial off of hydrochlorothiazide to see if it lessens the loose stool. He may want to substitute a different BPmedication. Don't stop this without talking to him. Secondly, try to add a fiber bar to your morning, something like benefiber to bulk up your stool. And lastly, meet with the pelvic floor PT for their/her assessment and suggestions. I also think you would benefit from PT and pelvic floor PT. I would ask that you come to [facility] as they are trained in MS. I did not find a pelvic floor PT near your home. I have placed the orders. I am glad you got your COVID vaccine. We recommend you get your booster and it is due 05/29/2021. See me by video in ~ 4 weeks to check on our progress, sooner if needed. See Dr. Minor as planned in May, me in November 2021, or sooner if needed. Please do not let your guard down in following CDC guidelines in light of the viral pandemic. To prevent the spread of SARS-CoV2, wash your hands often, sanitize commonly touched surfaces, use a maskwhen out covering your nose and mouth, avoid touching your face, and maintain social distancing. https://www.cdc.gov/coronavirus/2019-ncov/prepare/prevention.html Additionally, there are treatments for COVID should you test positive. The treatments are most effective early after infection. There are some criteria for treatment. Should you contract COVID pleaselet us know immediately. At this point in time, we are not aware of any greater risk from COVID-19 for people with MS than the general population. This is based on registry studies from [place] and around the world. The exception is that people in wheelchairs seem to be at higher risk for worse outcomes (hospitalization, ICU, ) from COVID-19 than people who are not. Otherwise, the same risks that apply to the general population apply to people with MS. That is, if you are older, male, have high blood pressure, diabetes, cardiovascular disease, or obesity you have a higher risk of worse outcome with COVID-19. Also, we are working with a limited amount of facts as to the safety of the vaccine(s) against SARS-CoV-2. The SARS-CoV-2 vaccinations appear to be safe and effective and we are not aware of any special risks that people with MS might have upon taking the vaccinations. Thus, we encourage you to have the SARS-CoV-2 vaccination when it is your ???turn?? as decided by the state and area where you live. The [facility] issued a consensus statement advising that people with MS should get the COVID-19 vaccine. https://www.nationalmssociety.org/ymakprykvqo-gkvxk-58-information/multiple-scle iftjp-qfk-sfdfgpxyhty/knreg-36-bfdgqtz-guidance#section-0 Additionally, there are treatments for COVID should you test positive. The treatments are most effective early after infection. There are some criteria for treatment. Should you contract COVID pleaselet us know immediately. [facility] Patient Information: Ampyra??? (dalfampridine) Dosinmg tablets taken every 12 hours. Do not divide, crush, chew, or dissolve tablets. If you miss a dose, skip it altogether; do not take a double dose. Approval: Approved by the FDA in 2009 to improve walking in adults with multiple sclerosis. About Ampyra: Ampyra is not a treatment to slow the MS disease process, and is often prescribed in combination with a MS disease modifying medication. It treats symptoms. Ampyra may significantly improve the mobility of patients who have MS. About 35-40% of patients respond to Ampyra. If you are going to experience a benefit with this medication, you should know quickly. If after taking the medication for a month, you have not noticed any improvement in your mobility, you should contact the doctor who prescribed it; they will likely tell you to stop the medication. Mccabe Findings from Clinical Trials: ??? Patients taking Ampyra walked significantly faster than patients taking a placebo in clinical trials Common Side Effects ??? Most patients have minimal or no side effects while taking this medication ??? Urinary tract infections, insomnia, dizziness, GI discomfort, or headache may be noted. In clinical trials, these occurred in 5-12% of patients taking Ampyra as compared to 3-8% of patients taking placebo. Uncommon Side Effects ??? Seizure o Seizures are rare, with an incidence of 0.4 to 0.6 seizures per 100 patient years of drug exposure o About half of patients with seizures on Ampyra had other seizure risk factors o Seizures are more likely if doses are taken too close together or if kidney function is impaired ??? Anaphylaxis, or severe allergic reaction Other Warnings for Ampyra ??? Ampyra is contraindicated in patients with poor kidney function ??? Ampyra is contraindicated in patients who have a history of seizures ??? Women of childbearing potential should not become on this medication Required Monitoring for Patients on Ampyra ??? Baseline: Bloodwork to check kidney function, timed 25 foot walk ??? Ongoing monitoring: Periodic bloodwork to check kidney function; timed 25 foot walks Call Your MS Doctor For: ??? Seizure ??? Serious allergic reaction Bog Cutter: [employer]-Sponsored Sites for Patient Information and/or Financial Assistance: Ampyra??? [facility] Patient Support Services [employer] References: 1. Goodman LORENZO et al. 2010. A phase 3 trial of oral extended release dalfampridine in multiple sclerosis. [facility] Neuro 68(4): 494-502. 2. Goodman LORENZO et al. 2009. Sustained release oral fampridine in multiple sclerosis: a randomized, double blind controlled trial. Lancet 373(8654):132-8. documented in this encounter Progress Notes * Rafia Rich CNS - 02/17/2021 9:30 AM CDT Patient Name: MARITA EMERY Medical Record Number (MRN): [id number] Date of (): 1965 Encounter Date: 02/17/2021 Chief Complaint Marita Emery is a 55 y.o..White male seen today for follow up of PPMS, disease and medication monitoring. HPI Today, Marita Emery is accompanied by self , if product safety expert they assisted in providing the intervalhistory and was in the exam room for the entire visit. He was last seen on TM 12/14/[address] Minor SHELBY: 01/2020 DMT: NA Last infusion (if applicable): Next infusion (if applicable): Last Labs: 08/2020 Last MRI: 2007- in MRI study MS History: Symptoms: 1989, age 24, bladder concerns Dx [address] Rosenbaum- MRI+, CSF+ Current DMT: None PPMS DMT Medication: Tolerating DMT well, no difficulties with insurance or copays. No side effects. Adherent. [] NA Patient disease assessment: [] Better; [] Same; [x] Worse Patient denies any new focal neurological symptoms suggestive of an interval relapse including focal weakness, focal numbness, double vision, or acute vision loss. Denies signs of progression. Infection, illness, hospitalization since last visit: [x] No, [] Yes [x] Following CDC guidelines, masking, distancing, handwashing, avoidance of touching face [x] COVID-19 illness 05/2020- mild, recovered, [facility] Minor [x] COVID-19 vaccination 09/06/2020, 09/27/2020, Pfizer, did okay with vaccine HPI Interval History: A few concerns today 1. [...] 6+ times a day. Endex for ED. Currently R leg dragging. R dorsiflexion and hip flexor weakness. No formal PT Goes to gym and does leg presses can do equal weight. Some weakness with hamstring. 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 Stopped running 15 year ago 1 month ago tripped down stairs, scrapes and bruising. Boss has some concerns. Ambulation: PDAS: [address] . [address] OF [address] SUPERVISOR . [] DNC= did not complete/or not given to patient. May be able to go a mile. Heat sensitivity. Aid: []None, [] does not use stairs, [x] Uses rails/bannister with stairs, [x] Uses puente, furniture, companions arm, []Single pronged cane,[]Quad cane, []Wheeled walker, []Manual Wheelchair, []PMD Falls: []None, [x] Falls, [] Near falls, [] Stumbles Last fall: Stairs at work 12/2020 Injury: [] no, [] yes UE Function: No weakness / tremors / incoordination. LE Function: R leg weakness. Tired ampyra in the past and unsure of its benefits. Sensation/Pain: No numbness / paresthesias / pain. Spasms: R leg stiffness. No leg / arm spasms. Cognition: No difficulties with memory / processing speed / word finding. Less sharp, may be age related. May need to read directions a few times. Unsure if he would be able to learn a new job. Mood: No depression / anxiety. Some anxiety- uncertain about job/future. Fatigue: No fatigue. Sleep: No trouble with sleep/ no sleep apnea/ not up more than 1-2 times a night/ easily falls backto sleep. Sleeping 7-8 hours per night. Broken sleep, bladder up. 1 time per night. Vision: No vision changes. Contacts and glasses. Past ON R. Brainstem: No vertigo / diplopia/ facial numbness. Bladder: Botox q 6 months, less urgency, less leaking. No nighttime leaking. CISC, 6-8 times day. With full bladder may have spontaneous void, but rare. Bowel Function: within last year stomach issues may have fecal urgency and fecal incontinence. IBS med as needed. Sexual Function: ED injection. Still helpful. ENDEX. l dryness/ Anorasmia/ ED. []Not sexually active, [] Not discussed today Family Planning/contraception: [] Menses is regular without excessive bleeding. Menopause:age [] Ablation, [] Hysterectomy, [] Hot Flashes/ other menopausal symptoms Contraception: Desire for more children: 24 yo daughter Annie RODRIGUES NICU 22 yo daughter in Grad school [employer]) 19 yo son at [employer] Diets/dietary restrictions:[x] nothing special, [] trying to eat healthy, [] limiting red meat, [] low carb, [] more fruit and vegetables,[] vegan, [] keto, [] mediterranean diet, [] ITF, [] Other Water intake per day: oz Caffeine intake per day: oz Other supplements/Vit. Vitamin D IU daily or [] 50,000 IU weekly or [] 20,000 IU weekly Social History Tobacco Use Smoking status: Never Smoker Smokeless tobacco: Never Used Interested in quitting: Yes [] Referred to PCP for smoking cessation: Yes [] Substance and Sexual Activity Alcohol Use Yes Comment: SOCIAL alcohol does not seem to make bladder or bowels worse. 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 Neurogenic bladder disorder ??? Abnormality of gait and mobility ??? High risk medication use ??? Hypercholesterolemia ??? Primary insomnia ??? Multiple sclerosis (CMS/HCC) (HCC) ??? Penile discharge ??? Urethral stricture ??? Urinary tract infection ??? OAB (overactive bladder) ??? Bowel incontinence ??? Cardiovascular risk factor ??? Abnormal MRI ??? Vitamin D deficiency Medications Current Outpatient Medications: ??? ALPRAZolam (XANAX) 0.25 mg tablet, Take 0.25 mg by mouth nightly as needed for sleep , Disp: , Rfl: 1 ??? atorvastatin (LIPITOR) 20 mg tablet, Take 20 mg by mouth every morning , Disp: , Rfl: ??? cholecalciferol (VITAMIN D-3) 1,000 unit, Take 1,000 Units by mouth every morning, Disp: , Rfl: ??? EDEX 20 mcg injection, 20 mcg by intracavity route as needed for erectile dysfunction , Disp: ,Rfl: ??? famotidine (PEPCID) 10 mg tablet, Take 10 mg by mouth 2 (two) times a day, Disp: , Rfl: ??? felodipine (PLENDIL) 5 mg 24 hr tablet, Take 5 mg by mouth every morning , Disp: , Rfl: ??? hydroCHLOROthiazide (HYDRODIURIL) 25 mg tablet, Take 25 mg by mouth every morning , Disp: , Rfl: ??? losartan (COZAAR) 100 mg tablet, Take 100 mg by mouth every morning , Disp: , Rfl: ??? omeprazole (PriLOSEC) 10 mg capsule, Take 10 mg by mouth daily, Disp: , Rfl: ??? phenazopyridine (PYRIDIUM) 100 mg tablet, Take 1 tablet (100 mg total) by mouth 3 (three) timesa day as needed for urinary pain, Disp: 10 tablet, Rfl: 0 ??? POTASSIUM CHLORIDE ER 20 mEq CR tablet, Take 20 mEq by mouth every morning , Disp: , Rfl: 5 Medical History Past Medical History: Diagnosis Date ??? Coronary artery disease ??? Hypertension Hypertension ??? Multiple sclerosis (CMS/HCC) (HCC) Multiple Sclerosis Vital Signs Vitals: 02/17/21 0923 BP: 138/92 BP Location: Right arm Patient Position: Sitting Pulse: 91 Temp: 36.2 ??C (97.2 ??F) TempSrc: Temporal Weight: 81.2 kg (179 lb) Height: 177.8 cm (5' 10 ) ROS, FH, SH ROS, Family History, Social History, Interval Medical History were reviewed and scanned as separatedocument. All other systems negative except as per HPI. Patient reports no new family history of neurologic diseases. Physical/Neuro Exam: X= Not examined or not applicable. GENERAL [x] Well-appearing/well-nourished Body mass index is 25.68 kg/m??. [] BMI follow-up includes: Nutrition counseling, exercise counseling, and education provided. [x] Normal mood: [x] No edema: [] Regular rate & rhythm, no murmur or gallop: [] Lungs clear to auscultation: [] No rashes/injection site rxns: [] Back with full ROM, no spasm, non-tender spine/SI/bursa: NEUROLOGIC (? section if items below are normal) deferred today as focus of visit was symptom management and counseling. [x] 0 Mentation Intact: [] 1 Subtle (no impairment, ? multi-tasking/word-finding): [] 2 Mild (decreased short-term memory, writes everything down, slow to process routine info): [] 3 Moderate (impacts job or relationship, frequently loses train of thought or frequent errors): [] 4 Demented (severe abnormalities, not safe to drive, may require assistance/supervision): [x] 0 No Fatigue: [] 1 Mild (no limitations): [] 2 Moderate (limits <50% activities, affects work or home): [] 3 Severe (limits >50% activities, cannot work, cannot care for home): CEREBRAL FS [x] 0: Normal [] 1: Subtle mentation or mild fatigue, any cat = 1 [] 2: Mild mentation or moderate fatigue, any cat =2 [] 3: Moderate mentation of severe fatigue, any cat = 3 [] 4: Demented, any cat = 4 [x] 0 No Bladder Urgency/Incontinence [] 1 Mild (urinates often or needs to hardy to bathroom, no impact on lifestyle) [] 2 Moderate (full bladder incontinence <=1/w, pad for leakage, impacts social function) [] 3 Severe (incontinent >1/w, concerned to leave house) [] 4 Loss of function (requires diapers, susceptible to skin breakdown) [x] 0 No Bladder Hesitancy or Retention [] 1 Mild (takes extra time to start, no impact on lifestyle) [] 2 Moderate (needs to push/strain, double voids, UTI>2/y) [] 3 Severe (requires intermittent catheter) [] 4 Loss of function (indwelling catheter) BLADDER FS [x] 0: Normal [] 1: Mild, any cat = 1 [] 2: Moderate, any cat =2 [] 3: Severe, any cat = 3 [] 4: Loss of function, any cat = 4 Visual Acuity [x] corrected, [] pinhole, [] not corrected 20 / OD, 20 / OS 20/ OU to [x] card; [] wall chart [] 0 No VF or Scotoma per report ???Are you aware of any blurred/grayed vision or blind spots in your central or peripheral vision? If so, does this impair your ability to drive, read, use a computer, etc?) [] 1 Patient aware but not functionally limiting [] 2 Functionally limiting VISION FS [x] 0: Normal, 20/20 or 20/25 with no ON hx [] 1: 20/25 w/ hx ON or VF/scotoma = 1 [] 2: 20/30 - 20/99 or VF/scotoma = 2 [] 3: 20/100 or worse, but better 20/50 or better [] 4: 20/100 or worse, and better eye 20/60 or worse [] Funduscopic normal discs/vessels: [] PERRL (R/L): / -> / [] No APD: [x] 0 EOMs full: [] 1 Subtle, patient unaware [] 2 Subtle/patient aware, or obvious/patient unaware [] 3 Obvious incomplete/complete paresis, patient aware [x] 0 No nystagmus: [] 1 Mild gaze-evoked nystagmus [] 2 Nystagmus at 30 degrees but not primary gaze [] 3 Nystagmus in primary gaze or oscillopsia [x] No NIURKA: [] Saccades normal: [x] 0 V1-3 intact to touch / pin: [] 1 Diminished/altered sensation, patient unaware [] 2 Diminished/altered sensation, patient aware [] 3 Active trigeminal neuralgia (>=1 attack in past 24 h) [x] 0 Face symmetric: [] 1 Subtle, patient unaware [] 2 Mild, patient aware [] 3 Incomplete/complete, failure to close eye or drooling [x] 0 No dysarthria: [] 1 Subtle, patient unaware [] 2 Detectable, patient aware [] 3 Moderate/severe, difficulty comprehending speech [x] Hearing intact bilaterally: [x] Palate elevates symmetrically: [x] Equal shoulder shrug: [x] Tongue movements normal: [x] 0 Other (i.e. dysphagia, hearing loss due to MS): [] 1 Subtle or patient unaware [] 2 Patient aware but not functionally limiting [] 3 Functionally limiting BRAINSTEM FS [x] 0: Normal [] 1: Subtle, any cat = 1 [] 2: Mild, any cat =2 [] 3: Moderate, any cat = 3 [x] 0 Finger and toe tapping normal or subtly slow: [] 1 Finger and toe tapping clearly slow RUE LUE RLE LLE 0 normal, 1 subtly slow, 2 mild slow, 3 mod slow, 4 severe slow [x] 0 EARLE normal: [x] 0 F->N normal: RUE LUE RLE LLE EARLE F-> N x x HKS x x 0 normal, 1 subtly ataxic, 2 mild, 3 moderate, 4 severe and nonfunctional [] 1 Subtle, no interference with function [] 2 Mild Unilateral, easily seen, minor interference [] 3 Moderate unilateral, clearly interferes with function, or mild bilateral [] 4 Severe/non-functional unilateral, or moderate bilateral [x] 0 BMRC is normal with 5/5 strength throughout- all are 5/5 unless noted otherwise. R L Delt Tricep Bicep Finger Flex Finger Ext Psoas Hams Quads Tib Ant Plant Flex [x] 0 No motor fatigability or reduced performance: [] 1 Abnormal BMRC or motor fatigability or reduced performance or 4 in 1 muscle in 1-2 limbs (can no longer go as far as they???d like, can no longer run if did previously) [] 2 Grade 4 in 2+ muscles in 1 limb [] 3 Grade 4 in 2+ muscles in 2+ limbs, or grade 3 in 1 limb [] 4 Grade 3 in 2+ limbs, or grade 0-2 in 1 limb [] 5 Grade 0-2 in 2+ limbs [x] 0 Hops 10x each foot (required if BMRC 5/5): [] 1 Hopping impaired, less than 10 either side __times on right foot; __times on left foot. [] 2 Hopping not possible [] X Limited by pain or size [] Can walk on heels/toes: [] No postural or action tremor: [x] Reflexes normal with downgoing toes: R L Bicep Brach Tricep Knee Ankle Toes 0 absent, 1 hypo, 2 normal, 3 hyper, 4 two-four contractions, 5 five+ contractions PYRAMIDAL FS [x] 0 Normal [] 1 Subtle, any cat = 1 [] 2 Minimal, any cat =2 [] 3 Mild, any cat = 3 [] 4 Moderate, any cat = 4 [] 5 Severe, any cat = 5 [x] 0 Touch / Pin normal: RUE LUE RLE LLE 0 normal, 1 diminished, 2 impaired, 3 absent [] 1 Diminished touch or pin, patient unaware [] 2 Diminished touch or pin, patient aware, 1-2 limbs [] 3 Diminished touch in 3-4 limbs or impaired discrimination for sharp/dull in 1-2 limbs [] 4 Unable to feel touch or pin, 1-2 limbs [x] 0 Vibration normal: R finger L finger R toe L toe R ankle L ankle Rydel Seiffer 64 Hz, Distal Joint. Normal UE>=7.0, LE>=6.0) [] 1 Mild 1-2 limbs, UE 4.0-6.5, LE 3.0- 5.5 [] 2 Moderate,1-2 limbs, UE 1-3.5, 1-2.5, or mild 3-4 limbs [] 3 Moderate 3 or more limbs, absent 1-2 limbs [] 4 Absent 3 or more limbs [x] 0 Romberg normal EO/EC: EO EC 0 normal, 1 subtle sway, 2 mild sway, 3 mod sway/fall, 4 severe fall [] 1 Subtle, Normal EO, mild sway EC [] 2 Mild/moderate, normal EO, unstable EC [] X Unstable EO, EO 3 or 4 [] Proprio: [] No spinal level: SENSORY FS [x] 0 Normal [] 1 Subtle, any cat = 1 [] 2 Mild, any cat =2 [] 3 Moderate, any cat = 3 [] 4 Severe, any cat = 4 See UE and LE coordination above between tapping and motor. [x] 0 Tandem 8 steps normal __; __steps. [] 1 Tandem impaired [] 2 Tandem not possible [x] 0 Gait and stance without ataxia: [] 1 Minimal, subtle impairment on turns, normal straight [] 2 Mild, obvious impairments on turns, subtle impairment straight [] 3 Moderate, obvious impairment with straight walking, or moderate sway with feet together/eyes open [] 4 Severe, unable to walk more than few steps unassisted CEREBELLAR FS [x] 0 Normal [] 1 Subtle, any cat = 1 [] 2 Mild, any cat =2 [] 3 Moderate, any cat = 3 [] 4 Severe, any cat = 4 sEDSS TOTAL: estimate 3.5-4. R foot drop, bladder. 0: all FS grade 0 1.0: one FS grade 1 1.5: more than one FS grade 1 2.0: one FS grade 2, others 0 or 1 2.5: two FS grade 2, others 0 or 1 3.0: one FS grade 3, others 0 or 1; also three /four FS grade 2, others 0 or 1 3.5: one FS grade 3; also one/two FS grade 2 and others 0 or 1; also two FS grade 3 and others 0 or1; also one FS grade 5 and others 0 or 1 4.0: ambulatory without aid 500 m; one FS grade 4 and others 0 or 1; also combinations of lesser grades exceeding limits of previous steps 4.5: ambulatory without aid 300 m; also one FS grade 4 and combination of lesser grades exceeding limits of previous steps 5.0: ambulatory without aid 200 m; also FS equivalents include at least one FS grade 5, or combinations of lesser grades exceeding previous steps 5.5: ambulatory without aid 100 m 6.0: unilateral assistance to walk at least 100 m 6.5: constant bilateral assistance required to walk at least 20 m 7.0: unable to walk 5 meters with aid; wheels self and transfers alone 7.5: unable to take more than a few steps; may need some help in transferring 8.0: restricted to bed or chair; retains many self-care functions; generally has effective use of arms 8.5: restricted to bed much of the day; has some effective use of arm(s); retains some self-care functions 9.0: bed patient; can communicate and eat 9.5: bed patient; unable to communicate effectively or eat/swallow Results Letter (Out) on 10/22/2020 Component Date Value Ref Range Status ??? Urine culture 12/06/2020 * Final Comment: CULTURE, URINE, ROUTINE Micro Number: [id number] Test Status: Final Specimen Source: URINE, CLEAN CATCH Specimen Quality: Adequate Result: 50,000-100,000 CFU/mL of Acinetobacter lwoffii 50,000-100,000 CFU/mL of Non-uropathogenic Gram positive organism May represent colonizers from external and internal genitalia. No further testing (including susceptibility) will be performed. A.lwoffii INT RAFFY AMP/SULBACTAM S <=2 CEFEPIME S 2 CEFTAZIDIME I 16 CIPROFLOXACIN S <=0.25 GENTAMICIN S <=1 IMIPENEM S <=0.25 LEVOFLOXACIN S <=0.12 PIP/TAZOBACTAM S 16 TOBRAMYCIN S <=1 T RIMETHOPRIM/SULFA S <=20 S=Susceptible I=Intermediate R=Resistant * = Not Tested NR = Not Reported NN = See Therapy Comments Orders Only on 06/15/2020 Component Date Value Ref Range Status ??? Urine culture 06/15/2020 Final Comment: CULTURE, URINE, ROUTINE Micro Number: [id number] Test Status: Final Specimen Source: URINE, CLEAN CATCH Specimen Quality: Adequate Result: Growth of mixed padmini was isolated, suggesting probable contamination. No further testing will be performed. If clinically indicated, recollection using a method to minimize contamination, with prompt transfer to Urine Culture Transport Tube, is recommended. Lab on 05/28/2020 Component Date Value Ref Range Status ??? COVID-19 RNA 05/28/2020 Detected* Final Comment: Interpretive Data Testing performed at [facility]. The 2019-Novel Coronavirus Assay (COVID-19) Real Time RT-PCR assay is for in vitro diagnostic use under FDA emergency use authorization only. Anegative RT-PCR result does not preclude infection with COVID-19 and should not be used as the sole basis for treatment or other patient management decisions. Additional sample types have been validated according to CLIA regulations. Current Interpretive Data was last revised on 2019. ??? First COVID-19 test? 05/28/2020 Unknown Final ??? Employeed in healthcare? 05/28/2020 No Final ??? status? 05/28/2020 No Final ??? Group care resident? 05/28/2020 No Final ??? Hospitalized? 05/28/2020 Unknown Final ??? Is patient in ICU? 05/28/2020 Unknown Final ??? Symptomatic as defined by CDC? 05/28/2020 No Final Orders Only on 05/17/2020 Component Date Value Ref Range Status ??? Urine culture 05/17/2020 SEE NOTE Final Comment: CULTURE, URINE, ROUTINE Micro Number: [id number] Test Status: Final Specimen Source: URINE, CLEAN CATCH Specimen Quality: Adequate Result: Growth of mixed padmini was isolated, suggesting probable contamination. No further testing will be performed. If clinically indicated, recollection using a method to minimize contamination, with prompt transfer to Urine Culture Transport Tube, is recommended. Your request to have a duplicate copy faxed has been acknowledged. Queued to: [id number] Results for orders placed during the hospital encounter of 09/09/19 MRI Lumbar Spine WO Contrast Narrative EXAMINATION: Magnetic resonance imaging (MRI) of the lumber spine without contrast. HISTORY: Low back pain. TECHNIQUE: Multiplanar multi-weighted MRI of the lumbar spine was performed without intravenous contrast using the standard lumbar spine protocol. COMPARISON: Radiographs 07/04/19. FINDINGS: Transitional S1 vertebral body. The alignment of the lumbar spine is normal; rotoscoliosis best seen on prior radiograph. Vertebral bodies demonstrate normal signal intensity on all sequences. There are no compression fractures. The conus medullaris terminates at the level of L1-L2. The distal spinal cord signal intensity is normal. There is mild disc desiccation at L4-L5 and L5-S1. There are no annular fissures identified. Limited views of the abdomen and pelvis show no soft tissue abnormality. The aorta is normal. L1-L2: The disc is normal in configuration. There is mild facet arthropathy. There is no neuroforaminal stenosis. There is no spinal canal stenosis. L2-L3: The disc is normal in configuration. There is mild facet arthropathy. There is no neuroforaminal stenosis. There is no spinal canal stenosis L3-L4: The disc is normal in configuration. There is mild facet arthropathy. There is no neuroforaminal stenosis. There is no spinal canal stenosis L4-L5: There is a mild disc bulge. There is moderate facet arthropathy. There is no neuroforaminal stenosis. There is no spinal canal stenosis L5-S1: There is a small disc bulge. There is mild facet arthropathy. There is no neuroforaminal stenosis. There is no spinal canal stenosis Impression Mild degenerative changes of the lumbar spine as described in detail above. Dictated by: Gerardo Prather M.D. The radiology attending physician has personally reviewed this study, and had reviewed and/or edited this written report and agrees with it. MRI Thoracic Spine WO Contrast [x] I have personally reviewed the labs. [x] I have personally reviewed the images. Diagnoses and MDM 1. Multiple sclerosis (CMS/HCC) (HCC) 2. Abnormal MRI 3. Vitamin D deficiency 4. Abnormality of gait and mobility 5. Neurogenic bladder disorder 6. Incontinence of feces with fecal urgency [x] Drug therapy requiring monitoring for adverse events or toxicity. [x] Patient has illness with exacerbation, progression, or side effects from treatment. [] I have discussed management or test interpretation with external HCP. Assessment Clinical phenotype: PPMS Interval Activity: [x] Not Active; [] Active; [] Possibly Active Interval Progression: [] Without Progression; [x] With Progression; [] Indeterminate Inflammatory Prospect: [] Low; [] Medium; [] High Exam Assessment: [x] Stable; [] Improved; [] Worse DMT Assessment: [] Adherent; [] Less-Adherent; [] Non-Adherent; [x] Tolerating Well; [] Not Tolerating; [x] Not Applicable Plan: See instructions, Discussed dalfampridine/Amprya. Discussed that this symptom management medication may help motor fatigue, smoothness of gait, and walking speed T25FW 5.9, 5.8 No history of seizures, Creatinine 0.79 08/2020 He will [x] continue vitamin D, [] restart Vit D, or [] not applicable for this visit/patient Orders Orders Placed This Encounter Procedures ??? Ambulatory referral order to Physical Therapy - ??? Ambulatory referral order to Physical Therapy - Patient Instructions It was nice to meet you today. We covered a lot. 1. R leg and foot weakness: Continue to be extra cautious. Try a Foot-Up brace that you can get on line. Continue your exercises. Meet with PT for an evaluation and to see if they have other suggestions/exercises. At [facility]- MS trained. We may re-try ampyra in the future (generic now so a little easier to get). 2. Future job: Continue as you are now but be extra careful. Ask your boss if there are other options within your company. Consider training a new person to fill your role. Consider a more desk-like job with the proper training. If you need us to write for accommodations we will happily do this. I am hoping you may have some gains after PT. Don't leave the workplace with out reaching out to us.I would want you to meet with our team at the [facility] to explore all options. If we would get to the point in which you would consider applying for disability we would help you with this and the MS Society is also able to help. If you leave the work place it does not mean you would or could not work or do some other activity ( volunteer, etc). 3. Fecal urgency/incontinence: I want you to talk to your PCP and see if you could do a trial off of hydrochlorothiazide to see if it lessens the loose stool. He may want to substitute a different BPmedication. Don't stop this without talking to him. Secondly, try to add a fiber bar to your morning, something like benefiber to bulk up your stool. And lastly, meet with the pelvic floor PT for their/her assessment and suggestions. I also think you would benefit from PT and pelvic floor PT. I would ask that you come to [facility] as they are trained in MS. I did not find a pelvic floor PT near your home. I have placed the orders. I am glad you got your COVID vaccine. We recommend you get your booster and it is due 05/29/2021. See me by video in ~ 4 weeks to check on our progress, sooner if needed. See Dr. Minor as planned in May, me in November 2021, or sooner if needed. Please do not let your guard down in following CDC guidelines in light of the viral pandemic. To prevent the spread of SARS-CoV2, wash your hands often, sanitize commonly touched surfaces, use a maskwhen out covering your nose and mouth, avoid touching your face, and maintain social distancing. https://www.cdc.gov/coronavirus/2019-ncov/prepare/prevention.html Additionally, there are treatments for COVID should you test positive. The treatments are most effective early after infection. There are some criteria for treatment. Should you contract COVID pleaselet us know immediately. At this point in time, we are not aware of any greater risk from COVID-19 for people with MS than the general population. This is based on registry studies from [place] and around the world. The exception is that people in wheelchairs seem to be at higher risk for worse outcomes (hospitalization, ICU, ) from COVID-19 than people who are not. Otherwise, the same risks that apply to the general population apply to people with MS. That is, if you are older, male, have high blood pressure, diabetes, cardiovascular disease, or obesity you have a higher risk of worse outcome with COVID-19. Also, we are working with a limited amount of facts as to the safety of the vaccine(s) against SARS-CoV-2. The SARS-CoV-2 vaccinations appear to be safe and effective and we are not aware of any special risks that people with MS might have upon taking the vaccinations. Thus, we encourage you to have the SARS-CoV-2 vaccination when it is your ???turn?? as decided by the state and area where you live. The [facility] issued a consensus statement advising that people with MS should get the COVID-19 vaccine. https://www.nationalmssociety.org/ocpsxkorqsn-uxytg-74-information/multiple-scle mpjbg-rnp-hxylvhpyjyc/awfue-12-scclacf-guidance#section-0 Additionally, there are treatments for COVID should you test positive. The treatments are most effective early after infection. There are some criteria for treatment. Should you contract COVID pleaselet us know immediately. [facility] Patient Information: Ampyra??? (dalfampridine) Dosinmg tablets taken every 12 hours. Do not divide, crush, chew, or dissolve tablets. If you miss a dose, skip it altogether; do not take a double dose. Approval: Approved by the FDA in 2009 to improve walking in adults with multiple sclerosis. About Ampyra: Ampyra is not a treatment to slow the MS disease process, and is often prescribed in combination with a MS disease modifying medication. It treats symptoms. Ampyra may significantly improve the mobility of patients who have MS. About 35-40% of patients respond to Ampyra. If you are going to experience a benefit with this medication, you should know quickly. If after taking the medication for a month, you have not noticed any improvement in your mobility, you should contact the doctor who prescribed it; they will likely tell you to stop the medication. Mccabe Findings from Clinical Trials: ??? Patients taking Ampyra walked significantly faster than patients taking a placebo in clinical trials Common Side Effects ??? Most patients have minimal or no side effects while taking this medication ??? Urinary tract infections, insomnia, dizziness, GI discomfort, or headache may be noted. In clinical trials, these occurred in 5-12% of patients taking Ampyra as compared to 3-8% of patients taking placebo. Uncommon Side Effects ??? Seizure o Seizures are rare, with an incidence of 0.4 to 0.6 seizures per 100 patient years of drug exposure o About half of patients with seizures on Ampyra had other seizure risk factors o Seizures are more likely if doses are taken too close together or if kidney function is impaired ??? Anaphylaxis, or severe allergic reaction Other Warnings for Ampyra ??? Ampyra is contraindicated in patients with poor kidney function ??? Ampyra is contraindicated in patients who have a history of seizures ??? Women of childbearing potential should not become on this medication Required Monitoring for Patients on Ampyra ??? Baseline: Bloodwork to check kidney function, timed 25 foot walk ??? Ongoing monitoring: Periodic bloodwork to check kidney function; timed 25 foot walks Call Your MS Doctor For: ??? Seizure ??? Serious allergic reaction Bog Cutter: [employer]-Sponsored Sites for Patient Information and/or Financial Assistance: [employer]??? Ampyra Patient Support Services [employer] References: 1. Goodman LORENZO et al. 2010. A phase 3 trial of oral extended release dalfampridine in multiple sclerosis. [facility] 68(4): 494-502. 2. Goodman LORENZO et al. 2009. Sustained release oral fampridine in multiple sclerosis: a randomized, double blind controlled trial. Lancet 373(3367):732-8. Future Appointments Date Time Provider Department Center 03/22/2021 1:00 PM Rafia Rich CNS MS [facility] 06/14/2021 2:00 PM Cherry Minor MD [facility] Counseling I think he had a [x]good, []fair, []poor, understanding of what we discussed today. This visit was conducted face to face. Strict CDC guidelines were followed to minimize the viral spread. My total encounter time on 02/17/2021 was 80 minutes which was spent in the activities documented inthe note. This includes time spent prior to the visit and after the visit in direct care of the patient. This time does not include time spent in any separately reportable services. Total time spend on encounter on the day of the visit: 5 precharting, 48 visit time, 37 post visit charting. Greater than 50% of any time I spent on the visit was spent in counseling and/or coordination of care as documented in the note. Visit time was spent discussing many of the issues relating to the diagnosis, symptoms and management of Multiple Sclerosis or similar demyelinating condition. Discussion and decision making was of high-complexity due to the patient's high risk condition, multiple co-morbidities, neuropsychological co-morbidities, cognitive problems, and/or multiple sites of involved disability. The recommended medications are potentially of high risk consequence in regard to their side effects. Some portions of this note may be copied and updated from previous notes. Thank you for allowing me to participate in the care of your patient. If you have any questions, feel free to contact me at [phone]. Sincerely, Rafia Rich APN, MSCN [facility] [phone] (phone) [phone] (fax) Cosigned by Cherry Minor MD at 02/18/2021 10:09 PM CDT documented in this encounter Plan of Treatment Scheduled Referrals Name Type Priority Associated Diagnoses Order Schedule Ambulatory referral order to Physical Therapy - Outpatient Referral Routine Multiple sclerosis (CMS/HCC) Abnormal MRI Vitamin D deficiency Abnormality of gait and mobility Neurogenic bladder disorder Incontinence of feces with fecal urgency Expected: 03/03/2021 (Approximate), Expires: 02/17/2022 documented as of this encounter Visit Diagnoses Diagnosis Multiple sclerosis (HCC)- Primary Multiple sclerosis Abnormal MRI Other nonspecific (abnormal) findings on radiological and other examinations of body structure Vitamin D deficiency Abnormality of gait and mobility Neurogenic bladder disorder Neurogenic bladder, NOS Incontinence of feces with fecal urgency documented in this encounter Care Teams Junior Bookkeeper Relationship Specialty Start Date End Date Mick Flowers MD PCP - General 05/14/17 documented as of this encounter
--- OUTSIDE RECORDS SUMMARY | 2024-06-29 00:30 | XMS_ITS | Encounter Summary ---
Author Organization [facility] Healthcare Address [address] [place] [address] Care Team Providers Care System Configuration Specialist Name Role Phone Mick Flowers MD Primary Care Provider [phone] Encounter Details Date Type Department Care Team (Late st Contact Info) Description 12/13/2020 5:31 AM CDT - 12/13/2020 8:37 AM CDT Hospital Encounter [facility] Operating Room [address] [place] [address] Marquis Lopez MD [address] [facility] [address] [place] [address] Discharge Disposition: Discharge to home or self [...] on file Legal Sex Male 3:12 AM [employer] Gender Identity Not on file Sexual Orientation Not on file 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 on file Not on file documented as of this encounter Last Filed Vital Signs Vital Sign Reading Time Taken Comments Blood Pressure 121/75 12/13/2020 8:30 AM CDT Pulse 68 12/13/2020 8:30 AM CDT Temperature 36 ??C (96.8 ??F) 12/13/2020 8:05 AM CDT Respiratory Rate 14 12/13/2020 8:30 AM CDT Oxygen Saturation 96% 12/13/2020 8:30 AM CDT Inhaled Oxygen Concentration - - Weight 81.6 kg (180 lb) 12/06/2020 1:55 PM CDT Height 180.3 cm (5' 11 ) 12/06/2020 1:55 PM CDT Body Mass Index 25.1 12/06/2020 1:55 PM CDT documented in this encounter Discharge Diagnoses Diagnosis Neuromuscular dysfunction of bladder, unspecified - NEUROMUSCULAR DYSFUNCTION OF BLADDER, UNSPECIFIED Anxiety disorder, unspecified - ANXIETY DISORDER, UNSPECIFIED Multiple sclerosis (HCC) - MULTIPLE SCLEROSIS Multiple sclerosis Essential (primary) hypertension - ESSENTIAL (PRIMARY) HYPERTENSION Unspecified essential hypertension Hyperlipidemia, unspecified - HYPERLIPIDEMIA, UNSPECIFIED Other chronic pain - OTHER CHRONIC PAIN Dorsalgia, unspecified - DORSALGIA, UNSPECIFIED Atherosclerotic heart disease of [place] coronary artery without angina pectoris - ATHEROSCLEROTIC HEART DISEASE OF [place] CORONARY ARTERY WITHOUT ANGINA PECTORIS Personal history of urinary (tract) infections - PERSONAL HISTORY OF URINARY (TRACT) INFECTIONS Other fdc (current) drug therapy - 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 You may see some blood in your urine as well as small clots. This is to be expected. You may resume your normal cathing schedule. New medications: You may take Tylenol or pyridium (AZO) as needed for pain. Diet: Resume usual diet. Keep well hydrated to flush any blood out of your urine. Activity: Activity as tolerated. Follow up: 6 months for your next Botox injections. Please call [phone] to schedule. Future Appointments Date Time Provider Department Center 02/08/2021 1:00 PM Cherry Minor MD [facility] Contact your doctor if: - Fever over 100.8F - Pain uncontrolled by prescribed medications - Nausea/vomiting - Persistent pain greater than 2 weeks - Unable to urinate Sunday through Sunday, 8 AM to 4:30 PM, call [phone] and ask for a member of your doctor's team. For urgent matters after 6:00 PM during the week, on weekends and holidays, call [phone] and ask to have the Urology Bid Manager Physician paged for you. We would like to guide you on the pathway to [facility] After Surgery - [place] Everyone recovers from surgery at a different rate. How quickly you recover depends on the type of surgery performed. It also depends on your age, overall health, and level of activity before surgery. Sedation: You have received sedation for your surgery or procedure. These medications can stay in your body for up to 24 hours. Common side effects are: ? Short term memory loss ? Feeling drowsy or sleepy ? Feeling light headed or dizzy ? Nausea ? Headache For your Safety: ? We recommend that you have a family member or friend stay with you for the first 24 hours after surgery. ? Do not drive or drink alcohol for the first 24 hours after surgery. ? Do not drive, use heavy machinery, or operate power tools while taking pain medication. This is because pain medicine can make you sleepy. ? Do not drink alcohol while taking pain medication. The combination may make you dizzy, decrease your function, or even be fatal. Remember: ? Don???t skip meals. If you do, you may feel dizzy, shaky, or anxious. ? Cut down on caffeine. Coffee and drinks with caffeine can make you feel nervous. Caffeine can also increase anxiety and sleep problems. It may take some time to start feeling like yourself. Be patient. ? You may feel tired for up to 4-6 weeks after surgery. ? Take all of your medicines as prescribed by your doctor. ? Germs are everywhere. Even healthy people can spread them. ? Clean your hands often with soap and water or alcohol hand rubs to protect you from germs that cause infections. Remind your friends and family to do the same. Things You May Experience: ? You may experience a decreased appetite for awhile. ? You may experience difficulty sleeping at night. If this remains a problem, tell your doctor. ? You may have problems with constipation. Add more fruits, vegetables, whole grains and liquid to your diet. If problems persist, tell your doctor. ? You may experience mood swings or feel sad. You may have good days and bad days for awhile. ? You may have some soreness, slight swelling, redness, and drainage around the incision. Some numbness around the incision is also normal. Activity: ? Stop any exercise - Stop any exercise if you have shortness of breath, dizziness, leg cramping, or chest pain. Notify your doctor if these symptoms don???t go away after resting. ? Walk as soon as you can - Walk at least one to two times a day. Start with short walks and plan to walk a little further each day. Increase your activity as you feel stronger. Walk at your own pace. Stop and rest if you get tired. ? Stairs - Unless your doctor tells you differently, you can use stairs. ? Go slow and rest if you get tired. Hold onto the hand rail for safety. ? Lifting - Ask your doctor how much you can lift and if you can bend. Do not lift, push or pull anything heavier than 10 to 15 pounds for 4 to 6 weeks unless your doctor says it is OK. This includescarrying children, groceries, luggage, mowing grass, and vacuuming. Don???t hold your breath duringany activity, especially when lifting anything or when using the rest room. ? Bathing - You can take showers when your doctor says it is OK. After showering, pat your incisionwith a towel (do not rub). Do not soak in a bath until your incisions are healed. Avoid hot water. ? Rest - You need a balance of rest and exercise for your recovery. Plan to rest between activities. Take short naps as needed. ? Dress - Wear comfortable, loose fitting clothes that do not put pressure on your incisions. Your clothes may feel tight for awhile due to some swelling after surgery. ? Driving - You can ride in a car at any time. Do not drive until your doctor says it is OK. If youare taking pain medicine, do not operate machines or drive a vehicle. If traveling, get out of yourcar every 2 hours and walk around for a few minutes. ? Visitors -Limit your visitors for the first couple of weeks. If you get tired, excuse yourself and lie down. ? Work - Ask your doctor when you can go back to work. Patients who have light duty jobs or desk jobs usually return to work within 2-3 weeks. It may take 4-6 weeks to return to work if you do more physical work. This is not a firm rule. ? Keeping Your Lungs Clear - You are at higher risk for lung infections after surgery if your activity is limited and you do not breathe deeply. Your risk of a lung infection is greater if you smoke. What you can do: Take deep breaths every 2 hours: ??? Sit upright in bed, on side of bed, or in chair. ??? Place both hands over your lower rib cage. ??? Take a slow, deep breath through your nose (your hands should be pushed out by your rib cage). ??? Hold your breath for a count of three. ??? Slowly exhale through mouth as if blowing out a candle (pursed lips). ??? Repeat 10 times every two hours while awake. Cough every 2 hours: ??? Take two slow, deep breaths as instructed above. ??? Inhale deeply a third time, and hold breath to count of three. ??? Cough fully 2-3 times in a row (without breathing in between coughs). ??? Cough deeply to clear any mucus - do not just clear your throat. ??? Cough 2-3 times every 2 hours while awake. Note: If your incision is in your chest or abdomen, use your hand, a pillow, blanket, or rolled towel to splint your incision during deep breathing and coughing. Press gently to decrease pain and reduce pulling on incision. Use Your Incentive Spirometer You may be given a hand-held device, called an incentive spirometer, to help you take deeper breaths. We will show you how to use it. Place your mouth around the mouthpiece. ??? Inhale slowly and deeply like pulling through a straw. ??? Breathe deep enough to make the ???float?? rise to the level marked on your incentive spirometer. ??? Try to hold your breath for 5-10 seconds. ??? Exhale and breathe normally between exercises. ??? Repeat breathing exercise as told, normally 10 times every 1-2 hours. ??? If your doctor wants you to use your incentive spirometer at home, keep it clean and do not share it with other family members. Do Not Smoke Smoking increases your chance of developing lung infections after surgery known as pneumonia. Smoking also hinders blood flow and can slow healing. In addition, smoking increases your risk for: ??? Cancer, stomach problems, cataracts, and skin wrinkling ??? Heart disease, high blood pressure, and stroke Are you ready to quit? If you were a smoker before surgery, now is a great time to make plans to quit. The benefits from quitting smoking start right away. ??? Your lungs begin to repair damage and circulation improves. ??? You cough less and breathe better. ??? Your energy level and focus improve. ??? You lower your risk of chronic disease and early . ??? Your senses of taste and smell improve. Your breath will be fresher. ??? You will save money by not buying cigarettes. ??? You will make the important people in your life proud of you. Talk to your nurse or doctor about how to stop smoking. They can give you information to get you onyour way to stop smoking forever. Helpful Hints for Nausea You will be given instructions about how to slowly progress from drinking liquids to resuming your normal diet. You may lose your appetite and eat less than normal until your system has fully recovered from the effects of your surgery and anesthesia. Hints When You Don???t Feel Like Eating: ??? Eat small meals throughout the day so your stomach won???t feel too full. ??? Limit liquids at mealtime to avoid over filling your stomach. ??? Sit upright while eating. Eat slowly and chew well. ??? Eat dry foods like toast, dry cereal, or crackers and chew your food well. ??? Avoid hot, spicy, or greasy foods ??? Avoid strong odors that can make nausea worse. ??? Try to relax. Breathe fresh air by an open window or go outside. Some medicines should be taken with or after eating food to avoid nausea. Always check the bottle for these directions or call your pharmacy. Constipation After surgery, constipation is a problem for many people. Pain medications, decreased activity and changes in your diet all interfere with your normal bowel pattern. What you can do to prevent constipation: ??? Drinking more water and other liquids. You should drink at least 6-8 cups of water each day plus other healthy liquids (unless your doctor says not to). ??? Certain juices, such as prune juice, may help decrease constipation. ??? Include plenty of fiber in your diet which will add bulk and softness to your bowel movements. Your diet should include fresh fruits and vegetables, whole grain breads and cereals, and beans. Fiber should be added to your diet slowly over time. ??? Exercising at least three times or more each week can also help. ??? Ask your doctor if the medications you are taking can cause constipation. ??? Talk to your doctor about whether you may need fiber supplements, stool softeners, or laxative medicines. ??? If your bowels have not moved more than 3 days after surgery, tell your doctor. Care of Your Incision When you go home, you may have a dressing or bandage over your incision to keep it clean and dry. You may also have stitches, ranjit, or steri-strips (strips of tape). ??? Once your doctor says it is OK, you may wash your incision. ??? Wash your hands before and after touching your incision. ??? Gently wash your incision with mild soap and warm water every day. ??? If you have steri-strips (strips of tape), wash over them with soap and warm water. Let the tapes fall off on their own. This usually happens within 10 days and if not, you can gently peel them off. ??? Avoid very hot water on your incision. ??? Do not soak in a bath/whirlpool, or swim until your incisions are healed. ??? Ask your doctor before applying lotions, creams or powders to your incision. ??? Avoid exposing your incision to the sun. Incisions can sunburn easily. Check your incision every day. Call your doctor if any of these signs are present: ??? Separation or increased bleeding from the incision. ??? Increase in warmth, swelling, redness, or tenderness around the incision. ??? Pus- thick, dark yellow drainage, or foul smelling drainage from the incision ??? A fever over 101 F (38 C) taken by mouth and/or if you have chills. Medicines Your doctor will give you prescriptions before you leave the hospital. It is important to have yourinsurance cards with you to help speed up filling your prescriptions. ??? Your pharmacist will give you Medication Information Sheets about each of your new medicines. Please ask if you have any questions. ??? Take your medicines exactly as your doctor prescribes. ??? Do not take other medicines, including [id number] medicines, vitamins, and dietary supplements without telling your doctor. ??? Keep a list in your wallet or purse of your current medications, doses and times to take them. All medication can cause side effects. If your medication causes any of the side effects below, call your doctor as soon as possible: ??? Excessive nausea, vomiting, diarrhea, constipation, or stomach pain Dizziness when standing ??? Confusion ??? Tingling in your hands and feet ??? Extremely slow or fast pulse ??? Unusual bruising, bleeding, or skin rash ??? Shortness of breath, difficulty breathing, or wheezing ??? Swelling of your face, lips, tongue or throat Pain Control After Surgery Pain is a normal part of the healing process. With less pain you can move around more easily and you can breathe deeper and cough stronger. With less pain, you can shorten healing time and return to your normal life more quickly. Pain Medication ??? You may be given a prescription for pain medicine to take at home. ??? Take your pain medication as ordered by your doctor. ??? Follow the suggestions in this booklet to prevent constipation. ??? Call your doctor for any new, increasing, or unrelieved pain. Things you can do to help ease your pain: ??? Change your position often. Get up and move around frequently. ??? Use heat or cold packs. ??? Use relaxation techniques - controlled breathing, music, guided imagery, etc. ??? Healing touch and light massage may be helpful. If You Have Problems at Home Go to your local Emergency Room or CALL 911 for: ??? Chest pain or sharp pain with a deep breath ??? Shortness of breath NOT relieved by rest ??? Heart rate which is newly fast and irregular ??? New or increased swelling in your calf or back of your thigh ??? Blood that appears when you vomit or cough Call your doctor???s office for: ??? A fever greater than 101 degrees F or 38 degrees C., and/or if you have chills. ??? Separation or increased bleeding from the incision. ??? Increase in warmth, swelling, redness, or tenderness around the incision. ??? Pus- thick, dark yellow drainage or foul smelling drainage from the incision. ??? Pain if it is not controlled. ??? New onset of nausea, vomiting or diarrhea. documented in this encounter Medications at Time of Discharge felodipine (PLENDIL) 5 mg 24 hr tabletIndications :hypertension Take 1 tablet (5 mg total) by mouth 2 (two) times a day 07/19/2007 hydroCHLOROthiazi de (HYDRODIURIL) 25 mg tabletIndications :hypertension Take 1 tablet (25 mg total) by mouth every morning sulfamethoxazole- trimethoprim (BACTRIM DS) 800-160 mg per tabletIndications :Urinary tract infection without hematuria, site unspecified Take 1 tablet by mouth 2 (two) times a day for 3 days 6 tablet 12/10/2020 1 ALPRAZolam (XANAX) 0.25 mg tabletIndications :anxiety Take 1 tablet (0.25 mg total) by mouth nightly as needed for sleep 06/27/2018 3 atorvastatin (LIPITOR) 20 mg tabletIndications :hyperlipidemia Take 20 mg by mouth every morning 2 cholecalciferol (VITAMIN D-3) 1,000 unit Take 1,000 Units by mouth every morning 2 EDEX 20 mcg injection 20 mcg by intracavity route as needed for erectile dysfunction 06/11/2019 3 losartan (COZAAR) 100 mg tabletIndications :hypertension Take 1 tablet (100 mg total) by mouth every morning 3 omeprazole OTC (PriLOSEC OTC) 20 mg EC tablet Take 20 mg by mouth daily 11/23/2020 1 phenazopyridine (PYRIDIUM) 100 mg tablet Take 1 tablet (100 mg total) by mouth 3 (three) times a day as needed for urinary pain 10 tablet 12/13/2020 1 POTASSIUM CHLORIDE ER 20 mEq CR tabletIndications :supplement Take 1 tablet (20 mEq total) by mouth every morning 5 04/23/2018 4 urea (CARMOL) 40 % creamIndications: Hyperkeratosis Apply 1 application topically every morning 08/05/2020 3 documented as of this encounter Ordered Prescriptions Prescription Sig Dispense Quantity Refills Last Filled Start Date End Date phenazopyridine (PYRIDIUM) 100 mg tablet Take 1 tablet (100 mg total) by mouth 3 (three) times a day as needed for urinary pain 10 tablet 12/13/2020 1 documented in this encounter Discharge Disposition Disposition Code Departure Means Destination Discharge to home or self care documented in this encounter H&P Notes * Marquis Lopez MD - 12/13/2020 7:12 AM CDT I have reviewed the H&P, [...] Musculoskeletal: Normal strength. No edema. Neurologic: Alert, oriented. Psychiatric: Normal affect and mood, oriented x 3. Source Note - Chau Nair MD - 12/08/2020 8:05 AM CDT Images from the original note were not included. [facility] for Preoperative Assessment and Planning Preoperative Evaluation Record Evaluation type/location: [facility]AP from [facility] Planned procedure site: [facility] PVT OR (Pod 1) Date: 12/08/20 NOTE: This note represents a preoperative evaluation initiated via telephone interview. NO PHYSICALEXAM was performed at the time of initial assessment. A physical exam may be added to this note anddocumented below. Anesthesia Evaluation Doc Emery is a 55 y.o. male Procedure(s): INJECTION BOTOX 300 UNITS CYSTOSCOPY Pre-Op Diagnosis Codes: * Neurogenic bladder [N31.9] HISTORY HPI Doc Emery is a 55 y.o. male who is being evaluated prior [...] negatives: CAD (denies, noted in history items); NH ; CABG ; systolic/diastolic dysfunction w/o CHF [...] complete. Additional comments: Doc Emery is a 55 y.o. male who is being evaluated prior to undergoing a low cardiac risk surgery. Revised Cardiac Risk Index factors are (none) for a total RCRI of 0 out of6. Functional capacity is 6-10 METs. PRELIMINARY Obstructive sleep apnea (ROSALINDA) screening status is STOP-Bang=3 suggesting moderate risk for ROSALINDA. Full ROSALINDA screening deferred until DOS due to TPAP. Blood bank needs for day of procedure: No type and screen needed Pending labs/tests include: no labs indicated This assessment was performed via telephone. Therefore the physical exam has been deferred to the day of surgery team. The patient was provided with preoperative instructions for their medications. The patient was instructed to shower/bathe the night prior and the morning of the planned procedure using an antibacterial soap. Patient instructions were provided in writing sent via [employer] mail. Patient verbalized understanding of preoperative plan. Patient's COVID19 status is: Unexposed. The patient currently has no concerning symptoms of COVID19. . Patient's COVID-19 vaccination status is Fully vaccinated. Documentation of vaccination status is available in the Epic Immunization tab. . Plan for pre-procedure COVID19 testing: Patient is fully vaccinated, asymptomatic, and not severely immunocompromised per the criteria in the [facility] Pre-Procedure COVID-19 Testing Update for Fully Vaccinated Patients. COVID-19 testing is not indicated. . Preoperative evaluation performed by Liat Barry NP on 12/08/20 at 11:18 AM. TPAP assessment complete . Patient Active Problem List Diagnosis ??? [...] Left 05/04/2020 ??? SHOULDER ARTHROSCOPY Left unknown No Known Allergies Med List Status: Nurse Complete Set By: Gregory Kaplan RN at 12/06/2020 2:01 PM Taking? Last Dose Start Date End Date Provider ALPRAZolam (XANAX) 0.25 mg tablet 12/05/2020 06/27/18 -- Bettie Batres MD atorvastatin (LIPITOR) 20 mg tablet 12/06/2020 -- -- Bettie Batres MD cholecalciferol (VITAMIN D-3) 1,000 unit 12/06/2020 -- -- Bettie Batres MD EDEX 20 mcg injection 06/11/19 -- Bettie Batres MD felodipine (PLENDIL) 5 mg 24 hr tablet 12/06/2020 07/19/07 -- Bettie Batres MD hydroCHLOROthiazide (HYDRODIURIL) 25 mg tablet 12/06/2020 -- -- Bettie Batres MD losartan (COZAAR) 100 mg tablet 12/06/2020 -- -- Bettie Batres MD POTASSIUM CHLORIDE ER 20 mEq CR tablet 12/06/2020 04/23/18 -- Provider, MD Bettie No current facility-administered medications for this encounter. Current Outpatient Medications: ??? ALPRAZolam (XANAX) 0.25 mg tablet ??? atorvastatin (LIPITOR) 20 mg tablet ??? cholecalciferol (VITAMIN D-3) 1,000 [...] SOCIAL Substance and Sexual Activity Drug Use Yes ??? Frequency: 2.0 times per week ??? [...] within last 720 hours. Romain index score: 90 DOS Physical Exam Medical history, medications, and allergies reviewed. Attestation: This PAT evaluation 12/13/2020. Airway Exam: Mallampati: II Cervical ROM: FROM Cardiovascular Exam: Rate: regular Rhythm: regular Negative for Murmur Pulmonary Exam: LCTA, bilat EENT Exam: trachea midline Dental Exam: Appears intact Skin Exam: Skin is warm and dry. Current state: Patient's current state is cooperative and interactive. Anesthesia Plan ASA 2 Planned anesthesia: General Team communication plan: LMA Induction: Induction: intravenous. Postoperative Plan: Postoperative administration opioids intended. No postoperative mechanical ventilation intended. Patient's planned disposition post procedure is Outpatient. Informed Consent: Discussed plan with attending, [employer]PERATOR [employer] and resident. Anesthesia plan and risks discussed with patient and spouse. Plan and Consent Comments: Discussed risks a/w general anesthesia, including risk of worsening multiple sclerosis symptoms perioperatively. Patient reports no flare-ups with prior procedures. Consent and Attending signature: I and/or my designee have discussed the anesthesia plan, benefits, possible alternatives, parental presence at time of induction (if indicated), and clinically relevant risks that may include dental injury, unintentional awareness, and/or other complications. The patient and/or parent/legal guardian understand, and agree to proceed. All questions answered. documented in this encounter Miscellaneous Notes * Op Note - Marquis Lopez MD - 12/13/2020 7:30 AM CDT Date of Surgery: 12/13/2020 Preoperative diagnosis: neurogenic bladder with detrusor overactivity Post-operative diagnosis: neurogenic bladder with detrusor overactivity Procedure: Cystoscopy, injection of 300 units of onabotulinumtoxinA (Botox) into the bladder Surgeon: Marquis Lopez MD Dishroom Attendant: Alesha Callahan MD Anesthesia: General Complications: None Estimated blood loss: None Specimen: None Indication for surgery: Patient has neurogenic bladder with detrusor overactivity, and is here for Botox injection into [...] scope was advanced into the bladder. The anterior urethra appears to be tight for the 21F rigid cystoscope. Therefore we did the procedure using a 19 Cymro rigid cystoscope. There is no specific urethral stricture, just that the caliber of the penile urethra is noted to be smaller this time. The urethra and the bladder mucosa looks normal. Next we diluted with 300 units of Botox in 30 cc of injectable normal saline, and we injected the Botox into the into the detrusor and submucosal areaof the bladder in 0.5-1 cc aliquots. Botox [...] Op Note - Marquis Lopez MD - 12/13/2020 7:30 AM CDT Operative Progress Note Surgical Team: Surgeon(s) and Role: * Marquis Lopez MD - Primary * Alesha Callahan MD - Resident - Assisting Anesthesiologist: Aranza Medina MD OPERATOR LIGHTS: Gretel Ruano CRNA [place] Machine Operator: Chau Nair MD Manager Therapy: Taya Peterson RN Scrub: Gary Bernal RN Orientee Manager Therapy: Michael Jurado DATE OF SURGERY : 12/13/2020 Preoperative Diagnosis: Pre-op Diagnosis * Neurogenic bladder [N31.9] Postoperative Diagnosis: Post-op Diagnosis * Neurogenic bladder [N31.9] Procedure(s): Procedure(s) (LRB): INJECTION BOTOX 300 UNITS (N/A) CYSTOSCOPY (N/A) Operative Findings: Tight anterior urethra without stricture Estimated Blood Loss: 2 mL Intraoperative Fluids: See anesthesia record for mls Specimens: No specimen collected in procedure Implants: Nothing was implanted during the procedure Blood/Blood Products Transfused: 0 mls Complications: None Condition on Discharge from the operating room was stable Juice Lopez MD Date: 12/14/2020 Time: 1:36 PM TEACHING ATTESTATION : I was present and directly participated in the entire procedure (including opening and closing). * Pre-Procedure Instructions - Liat Barry NP - 12/08/2020 8:06 AM CDT [facility] Location: [facility] The night before your surgery: * [...] of surgery. * If having surgery at [facility], you may want to bring a credit card if you want to use our Mobile Pharmacy for your discharge medications. Mobile pharmacy is not available at [facility], the Orthopedic Center, or the [facility]. Outpatient Surgery: * You must [...] mg tablet Take morning of surgery ??? cholecalciferol (VITAMIN D-3) 1,000 unit Don't [...] bowel prep or special diet before surgery * Perioperative Nursing Note - Gregory Kaplan RN - 12/06/2020 2:03 PM CDT [facility] Planning Perioperative Nursing Note Telephone Preoperative Evaluation ([facility]) - TELEPHONE ONLY, NO PHYSICAL EXAM Date: 12/06/20 Vitals: 12/06/20 1355 Weight: 81.6 kg (180 lb) Height: 180.3 cm (5' 11 ) CHEST CIRCUMFERENCE: Social History Tobacco Use Smoking Status Never Smoker Smokeless Tobacco Never Used Substance and Sexual Activity Drug Use Yes ??? Frequency: 2.0 times per week ??? Types: Marijuana Alcohol Use How often do you have a drink containing alcohol?: 2-3 times a week How many drinks containing alcohol do you have on a typical day when you are drinking?: 7 to 9 How often do you have six or more drinks on one occasion?: Weekly Outpatient Medications Marked as Taking for the 12/13/20 encounter (Hospital Encounter) Medication Sig Dispense Refill ??? ALPRAZolam (XANAX) 0.25 mg tablet Take 0.25 mg by mouth nightly as needed for sleep 1 ??? atorvastatin (LIPITOR) 20 mg tablet Take 20 mg by mouth every morning ??? cholecalciferol (VITAMIN D-3) 1,000 unit Take 1,000 Units by mouth every morning ??? EDEX 20 mcg injection 20 mcg by intracavity route as needed for erectile dysfunction ??? felodipine (PLENDIL) 5 mg 24 hr [...] Wound (LDA): (none) SCREENINGS Romain index score: 90 NUTRITION PATIENT CARE PLANNING Advance Directives (For Healthcare) Have you reviewed your Advance Directive and is it valid for this stay?: Not applicable Advance Directive: Patient does not have advance directive, Patient would like information, Information provided Information Provided on Healthcare Directives: Yes Communication/Instructor Warper Needs Communication Needs: Glasses Patient's Preferred Language: Bolivian Is an geography faculty member needed? : No Assistive Devices/DME: Eyeglasses Discharge Planning Type [...] confirmed or suspected COVID-19 in the past 2 weeks?: No Do you live in or work in a congregate living facility (ex. assisted living/nursing home facility, assisted, custodial)?: No Have you tested positive for COVID-19 within the last 14 days?: No Have you previously tested positive for COVID-19? YES Have you had a COVID -19 exposure [...] 20 seconds. Use an alcohol- based hand marketing manager health communications that contains at least 60% alcohol if soap and water are not available. ADDITIONAL COMMENTS/ FOLLOW UP * Pre-Procedure Instructions - Gregory Kaplan RN - 12/06/2020 2:03 PM CDT PRE-SURGICAL INSTRUCTIONS ??? General Information ?? Surgery [...] insurance card, a photo ID (like a [employer]'s license) and a method of payment for [...] hair products the morning of the surgery. ?? COVID TESTING PLAN COVID TEST not indicated related to COVID Vaccination status criteria met based on current [facility] Pre-Procedure COVID 19 Testing Update for Fully Vaccinated Patients. If you have COVID testing or should have COVID testing for your surgery/procedure, please read below section: If you need to reschedule your COVID test to a different location or if your surgery gets rescheduled, you MUST call [phone] Sunday-Sunday 8am-4:30pm to get your COVID testing rescheduled or your lab order will not be available at Testing Sites. COVID Testing is only valid for up to 96 hours prior to surgery date, unless otherwise specified. If you are unable to reach staff at the above phone number, please call the CPAP Staff at [phone]. This number cannot order a lab test, [...] 20 seconds. Use an alcohol- based hand marketing manager health communications that contains at least 60% alcohol if soap and water are not available. All patients should read below section: All visitors/patients are being asked to wear a clean mask when entering the hospital. COVID 19 Updates & Visitor Policy: Please access [email or web address] for the most updated information. Information on [facility]: Please view [email or web address] (Patient & Visitor Information) for additional details regarding Advanced Directive forms, AWARE, directions, parking information, lodging, Internet access, dining and more. Information on [facility]: Please view [email or web address] (Patient and Visitor Information) for parking/directions and more. For MyChart information, to activate account or password recovery, please go to [email or web address] or call [phone] (toll-free: [phone]). Surgery Times: For patients having surgery @ [facility] or [facility], if your surgeon's office has not notified you of your surgery time by NOON THE BUSINESS DAY BEFORE your surgery, please call [phone] and ask for your surgeon'soffice documented in this encounter Plan of Treatment Not on file documented as of this encounter Procedures Procedure Name Priority Date/Time Associated Diagnosis Comments CYSTOSCOPY 12/13/2020 7:28 AM CDT Neurogenic bladder Special Needs 300 UNITS OF BOTOX TO BE MIXED WITH 30 CC NORMAL SALINE IN OR; CHERELLE NEEDLE FOR INJECTION INJECTION BOTOX 12/13/2020 7:28 AM CDT Neurogenic bladder Special Needs 300 UNITS OF [...] MAR Action Action Date Dose Rate Site acetaminophen (TYLENOL) tablet 1,000 mg 1,000 mg, oral, Once, On Sun12/13/20 at 0630, For 1 dose, Pre-Op Given 12/13/2020 5:55 AM CDT 1,000 mg Lactated Ringer's (LR) infusion 30 mL/hr, intravenous, Continuous, Starting on Sun12/13/20 at 0630, Pre-Op Restarted 12/13/2020 8:00 AM CDT Rate/Dose Verify 12/13/2020 7:26 AM CDT 30 mL/h r New Bag 12/13/2020 5:55 AM CDT 30 mL/hr 30 mL/hr sodium chloride 0.9% flush 0.5-20 mL 0.5-20 mL, intra-catheter, As needed, line care, Starting on Sun12/13/20 at 0551, Pre-Op, Flush volume based on line type and size. Flush before and after each use. documented in this encounter Discontinued Medications Medication Sig Discontinue Reason Start Date End Da te baclofen (LIORESAL) 10 mg tablet TAKE 1 TABLET BY MOUTH IN THE EVENING FOR 2 TO 3 NIGHTS, THEN SLOWLY GO TO THREE TIMES DAILY TOLERATED Error 03/11/2020 12/06/2020 documented as of this encounter Active and Recently Administered Medications Times are shown in CDT. Scheduled Medication Order 12/11/2020 12/12/2020 12/13/2020 acetaminophen (TYLENOL) tablet 1,000 mg (COMPLETED) 1,000 mg, oral, Once, On Sun12/13/20 at 0630, For 1 dose, Pre-Op 0555 (Given - Provid er: Annabel Murry RN) ceFAZolin (ANCEF) 2,000 mg/20 mL in sterile water (premix) 2,000 mg (COMPLETED) 2,000 mg, intravenous, at 400 mL/hr, Administer over 3 Minutes, Once, On Sun12/13/20 at 0630, For 1 dose, Pre-Op, Administer within 60 minutes of incision., Indications: Prophylaxis, Surgical 0737 (Given - Provid er: Gretel Ruano CRNA) Continuous Medication Order 12/11/2020 12/12/2020 12/13/2020 Lactated Ringer's (LR) infusion 30 mL/hr, intravenous, Continuous, Starting on Sun12/13/20 at 0630, Pre-Op 0555 (New Bag - Prov ider: Annabel Murry RN)0726 (Rate/Dose Verify - Provider: Liat Barry NP)0759 (Paused - Provider: Gretel Ruano CRNA - Comment: Switch to gravity)0800 (Restarted - Provider: MARIELLA Garcia PRN Medication Order 12/11/2020 12/12/2020 12/13/2020 diphenhydrAMINE (BENADRYL) injection 12.5 mg 12.5 mg, intravenous, Administer over 1 Minutes, Every 15 min PRN, itching, Starting on Sun12/13/20 at 0814, For 2 doses, Phase I, Max cumulative dose 50 mg., Indications: Itching haloperidol (HALDOL) injection 1 mg 1 mg, intravenous, Once as needed, nausea, vomiting, Starting on Sun12/13/20 at 0814, For 1 dose, Phase I, If nausea/vomiting not relieved by prochlorperazine within 30 minutes. HYDROmorphone (DILAUDID) injection 0.2 mg 0.2 mg, intravenous, Administer over 2 Minutes, Every 10 min PRN, 1st line for pain, Starting on Sun12/13/20 at 0814, Phase I, Switch to 2nd line analgesic order if pain is uncontrolled or increasing after 2 doses. Notify Anesthesiologist if total PACU dose reaches 2 mg and pain score 5/10 or more., Indications: Pain HYDROmorphone (DILAUDID) injection 0.4 mg 0.4 mg, intravenous, Administer over 2 Minutes, Every 10 min PRN, 2nd line for pain, Starting on Sun12/13/20 at 0814, Phase I, May administer 10 mintes after 2nd dose of 1st line analgesic agent for uncontrolled or increasing pain. Revert to 1st line dose if POSS of 3. Notify Anesthesiologist if total PACU dose reaches 2 mg and pain score 5/10 or more., Indications: Pain naloxone (NARCAN) 0.4 mg/mL injection 0.04-0.4 mg 0.04-0.4 mg, intravenous, Once as needed, other, excessive sedation/respiratory depression, Starting on Sun12/13/20 at 0814, For 1 dose, Phase I, Dilute 0.4 [...] chloride 0.9% (CANCELED) As needed, Starting on Sun12/13/20 at 0756, Intra-Op 0756 (Given - Provid er: Marquis Lopez MD - Comment: [address] Lopez) oxyCODONE (ROXICODONE) tablet 5 mg 5 mg, oral, Once as needed, 1st line for pain, Starting on Sun12/13/20 at 0814, For 1 dose, Phase I, When able to tolerate PO., Indications: Pain prochlorperazine (COMPAZINE) injection 10 mg 10 mg, intravenous, Administer over 2 Minutes, Once as needed, nausea, vomiting, Starting on Sun12/13/20 at 0814, For 1 dose, Phase I, Proceed to haloperidol if no relief within 30 minutes. sodium chloride 0.9% flush 0.5-20 mL 0.5-20 mL, intra-catheter, As needed, line care, Starting on Sun12/13/20 at 0551, Pre-Op, Flush volume based on line type and size. Flush before and after each use. sodium chloride 0.9% irrigation (CANCELED) As needed, Starting on Sun12/13/20 at 0753, Intra-Op 0751 (Given - Provid er: Marquis Lopez MD - Comment: Irrigation hanging.)0753 (Given - Provider: Marquis Lopez MD - Comment: Irrigation on field.) documented in this encounter Orders Medications Ordered That Julio Cesar ht Not Have Been Administered Count Last Ordered Date First Ordered Date ceFAZolin (ANCEF) 2,000 mg/2 0 mL in sterile water (premix) 2,000 mg 1 12/13/2020 diphenhydrAMINE (BENADRYL) i njection 12.5 mg 1 12/13/2020 haloperidol (HALDOL) injection 1 mg 1 12/13 HYDROmorphone (DILAUDID) injection 0.2 mg 1 12/13/2020 HYDROmorphone (DILAUDID) injection 0.4 mg 1 12/13/2020 naloxone (NARCAN) 0.4 mg/mL injection 0.04-0.4 mg 1 12/13/2020 onabotulinumtoxin A (botulin um toxin type A, BOTOX) 200 unit/20 mL in sodium chloride 0.9% 1 12/13/2020 oxyCODONE (ROXICODONE) tablet 5 mg 1 2020 prochlorperazine (COMPAZINE) injection 10 mg 1 12/13/2020 sodium chloride 0.9% flush 0.5-20 mL 1 11/24 sodium chloride 0.9% irrigation 1 documented in this encounter Care Teams System Configuration Specialist Relationship Specialty Start Date End Date Mick Flowers MD PCP - General 05/14/17 documented as of this encounter
--- OUTSIDE RECORDS SUMMARY | 2024-06-29 00:30 | XMS_ITS | Encounter Summary ---
Author Organization [facility] Address [address] [place] [address] Phone Care Team Providers Care Home Hospice Aide Name Role Phone Mick Flowers MD Primary Care Provider [phone] Encounter Details Date Type Department Care Team (Late st Contact Info) Description 03/30/2021 Orders Only [facility] Multiple Sclerosis [address] [place] [address] Level [phone] Rafia Rich, TICKET SALES SUPERVISOR [phone] Multiple sclerosis (CMS/HCC) (HCC) (Primary Dx); Abnormality of gait and mobility Social History [...] on file Legal Sex Male 3:12 AM POND SCALER Gender Identity Not on file Sexual Orientation Not on file 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 on file Not on file documented as of this encounter Ordered Prescriptions Prescription Sig Dispense Quantity Refills Last Filled Start Date End Date dalfampridine 10 mg tablet extended release 12 hrIndications:walk ing impairment due to multiple sclerosis Take 1 tablet (10 mg total) by mouth every 12 (twelve) hours 60 tablet 5 03/30/2021 04/05/2021 documented in this encounter Plan of Treatment Not on file documented as of this encounter Visit Diagnoses Diagnosis Multiple sclerosis (HCC)- Primary Multiple sclerosis Abnormality of gait and mobility documented in this encounter Care Teams Home Hospice Aide Relationship Specialty Start Date End Date Mick Flowers MD PCP - General 05/14/17 documented as of this encounter
--- OUTSIDE RECORDS SUMMARY | 2024-06-29 00:30 | XMS_ITS | Encounter Summary ---
Author Organization [facility] Address [address] [place] [address] Phone Care Team Providers Care Custodial Manager Name Role Phone Mick Flowers MD Primary Care Provider [phone] Encounter Details Date Type Department Care Team (Late st Contact Info) Description 06/16/2020 Orders Only [facility] Urology [address] [place] [phone] Terri Nicholas LPN Social History Tobacco Use Types Packs/Day Years Used Date Smoking Tobacco: Never Smokeless Tobacco: Never Alcohol Use Standard Drinks/Week Comments Yes 0 (1 standard drink = 0.6 oz pur e alcohol) SOCIAL Sex and Gender Information Value Date Recorded Sex Assigned at Not on file Legal Sex Male 3:12 AM MANAGER COMMISSION Gender Identity Not on file Sexual Orientation [...] documented as of this encounter Care Teams Custodial Manager Relationship Specialty Start Date End Date Mick Flowers MD PCP - General 05/14/17 documented as of this encounter
--- OUTSIDE RECORDS SUMMARY | 2024-06-29 00:30 | XMS_ITS | Encounter Summary ---
Author Organization [facility] [employer] [facility] Address [address] [place] [address] Phone Care Team Providers Care Tent Finisher Name Role Phone Mick Flowers MD Primary Care Provider [phone] Encounter Details Date Type Department Care Team (Late st Contact Info) Description 12/10/[address] 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 Lopez sent an antibiotic to his pharmacy. He needs to start taking todayand finish before surgery on Sunday. * Telephone Encounter - Terri Nicholas LPN - 12/10/2020 2:02 PM CDT ----- Message from Marquis Lopez MD sent at 12/10/2020 12:39 PM CDT ----- Please call the patient regarding his abnormal result. Patient has positive culture, please treat with Bactrim DS 1 tablet po BID for 3 days now (unless allergic to it). H documented in this encounter Plan of Treatment Not on file documented as of this encounter Visit Diagnoses Not on filedocumented in this encounter Care Teams Tent Finisher Relationship Specialty Start Date End Date Mick Flowers MD PCP - General 05/14/17 documented as of this encounter
--- OUTSIDE RECORDS SUMMARY | 2024-06-29 00:30 | XMS_ITS | Encounter Summary ---
Author Organization [facility] Address [address] [place] [address] Care Team Providers Care Dental Therapist Name Role Phone Mick Flowers MD Primary Care Provider [phone] Encounter Details Date Type Department Care Team (Late st Contact Info) Description 06/08/2021 Orders Only [facility] Testing Site - [facility]. Building [address] [place] [address] [address] [place] [address] Pamella Kirby MD [address] [place] [address] Pre-operative laboratory examination (Primary Dx) Social History Tobacco Use Types Packs/Day Years Used Date Smoking Tobacco: Never Smokeless Tobacco: Never Alcohol Use Standard Drinks/Week Comments Yes 0 (1 standard drink = 0.6 oz pur e alcohol) SOCIAL AUDIT-C Answer Date Recorded Q1: How often do you have a drink containing alc ohol? 2-3 times a week 06/07/2021 Q2: How many drinks containi ng alcohol do you have on a typical day when you are drinking? 1 or 2 06/07/2021 Q3: How often do you have si x or more drinks on one occasion? 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 Class: Internal Referral Ordering User: Rizwan Bagley RN Auth Provider: PAMELLA KIRBY Provider: ?? Diagnosis: ?? Department: ?? Sched Instruct: ?? Comment: ?? Order Specific Questions Question Answer Comment Testing types: Pre-procedure ?? Date of Px/chemo/treatment/placement/transfer 06/13/2021 ?? Testing site patient will be sent to: [place], [place] ?? Date testing requested: 06/09/2021 ?? Testing: COVID-19 RNA ?? Does the patient currently work in a healthcare facility with direct patient contact? No ?? Is the patient a resident of a congregate care or living setting? No ?? Please select the performing region: [facility] TRANSFER MAN documented in this encounter Plan of Treatment Not on file documented as of this encounter Results * COVID-19 Coronavirus RNA Nasopharyngeal (06/09/2021 11:02 AM DRY TRANSFER MAN) COVID-19 RNA Not Detected [facility] Comment: Interpretive Data Synonyms for this test include: PCR and NAAT . ??Testing performed by the [facility] Molecular Infectious Disease Laboratory. The 2019-Novel Coronavirus Assay (COVID-19) Real Time RT-PCR assay is for in vitro diagnostic use under FDA emergency use authorization only. A negative RT-PCR result does not preclude infection with COVID-19 and should not be used as the sole basis for treatment or other patient management decisions. ??Additional sample types have been validated according to CLIA regulations. ?? Current Interpretive Data was last revised on July 29, 2020. First COVID-19 test? No [facility] Employeed in healthcare? Unknown [facility] Group care resident? No [facility] Hospitalized? Unknown [facility] Is patient in ICU? Unknown [facility] Symptomatic as defined by CDC? No [facility] Nasopharyngeal 06/09/2021 11 :02 AM DRY TRANSFER MAN 06/09/2021 5:13 PM DRY TRANSFER MAN Narrative [facility] - 06/10/2021 2:53 AM DRY TRANSFER MAN What is the reason for testing?->Screening prior to scheduled procedure or surgery (batch) us Pamella Kirby MD LAB MICROBIOLOGY - GENERAL ORD ERABLES Final Result [facility] [address] [facility] Department [place] [address] documented in this encounter Visit Diagnoses Diagnosis Pre-operative laboratory examination- Primary Pre-procedural laboratory examination Pre-operative laboratory examination Pre-procedural laboratory examination documented in this encounter Care Teams Dental Therapist Relationship Specialty Start Date End Date Mick Flowers MD PCP - General 05/14/17 documented as of this encounter
--- OUTSIDE RECORDS SUMMARY | 2024-06-29 00:30 | XMS_ITS | Encounter Summary ---
Author Organization [facility] Address [address] [place] [address] Phone Care Team Providers Care Door To Door Sales Representative Name Role Phone Mick Flowers MD Primary Care Provider [phone] Encounter Details Date Type Department Care Team (Late st Contact Info) Description 06/15/2020 Orders Only [facility] Urology [address] [place] [address] Marquis Lopez MD [address] [facility] [address] [place], [place] [id number] OAB (overactive bladder) (Primary Dx); Urinary tract infection without hematuria, site unspecified Social History Tobacco Use Types Packs/Day Years Used Date Smoking Tobacco: Never Smokeless Tobacco: Never Alcohol Use Standard Drinks/Week Comments Yes 0 (1 standard drink = 0.6 oz pur e alcohol) SOCIAL Sex and Gender Information Value Date Recorded Sex Assigned at Not on file Legal Sex Male 3:12 AM LOW HEEL BUILDER Gender Identity Not on file Sexual Orientation Not on file 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 HEEL BUILDER documented in this encounter Plan of Treatment Not on file documented as of this encounter Procedures Procedure Name Priority Date/Time Associated Diagnosis Comments URINE CULTURE Routine 06/15/2020 12:39 PM LOW HEEL BUILDER OAB (overactive bladder) Urinary tract infection without hematuria, site unspecified documented in this encounter Results * Urine culture Urine, bladder (06/15/2020 12:39 PM LOW HEEL BUILDER) Urine culture [employer] Comment: ??CULTURE, URINE, ROUTINE ?Micro Number: ?[id number] ??Test Status: ? Final ??Specimen Source: ?? URINE, CLEAN CATCH ??Specimen Quality: ??Adequate ??Result: ?Growth of mixed padmini was isolated, suggesting ? probable contamination. No further testing will ? be performed. If clinically indicated, ? recollection using a method to minimize ? contamination, with prompt transfer to Urine ? Culture Transport Tube, is recommended. Urine, bladder 06/15/2020 12 :39 PM LOW HEEL BUILDER 06/15/2020 12:41 PM LOW HEEL BUILDER us Marquis Lopez MD LAB MICROBIOLOGY - GENERAL ORD ERABLES Final Result [facility] [address] [place] [address] documented in this encounter Visit Diagnoses Diagnosis OAB (overactive bladder)- Primary Urinary tract infection without hematuria, site unspecified documented in this encounter Additional Health Concerns Infection Onset Date Last Indicated Resolved Time COVID: Recovered Comment:Added based on recent COVID infection. 06/11/2020 06/11/2020 10/09/2020 3:06 AM C DT documented as of this encounter Care Teams Door To Door Sales Representative Relationship Specialty Start Date End Date Malcharek, Mick, MD PCP - General 05/14/17 documented as of this encounter
--- OUTSIDE RECORDS SUMMARY | 2024-06-29 00:30 | XMS_ITS | Encounter Summary ---
Author Organization [facility] Healthcare Address [address] [place] [address] Care Team Providers Care Document Management Consultant Name Role Phone Mick Flowers MD Primary Care Provider [phone] Encounter Details Date Type Department Care Team (Late st Contact Info) Description 12/13/2020 7:30 AM CDT - 12/13/2020 8:35 AM CDT Surgery [facility] [address] [place] [address] Marquis Lopez MD [address] [facility] [address] [place] [address] INJECTION BOTOX 300 UNITS Surgery Details Date/Time Status Location OR Service Patient Class Case Cl ass Case Type Trauma Case? 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 Please call [phone] to schedule. Future Appointments Date Time Provider Department Center 02/08/2021 1:00 PM Cherry Minor MD [facility] Contact your doctor if: - Fever over 100.8F - Pain uncontrolled by prescribed medications - Nausea/vomiting - Persistent pain greater than 2 weeks - Unable to urinate Jay through Sunday, 8 AM to 4:30 PM, call [phone] and ask for a member of your doctor's team. For urgent matters after 6:00 PM during the week, on weekends and holidays, call [phone] and ask to have the Urology Steam Fitter Supervisor Physician paged for you. We would like [...] ??? Do not take other medicines, including knnw-obn-horkjiq medicines, vitamins, and dietary supplements without telling [...] 1 06/27/2018 3 atorvastatin (LIPITOR) 20 mg tabletIndications [...] Preoperative Evaluation Record Evaluation type/location: TPAP from [facility] Planned procedure site: [facility] PVT OR (Pod 1) Date: [...] negatives: CAD (denies, noted in history items); [place] ; CABG ; systolic/diastolic dysfunction w/o CHF [...] STOP-Bang=3 suggesting moderate risk for ROSALINDA. Full ROASLINDA screening deferred until DOS due to TPAP. [...] instructions were provided in writing sent via [employer] mail. Patient verbalized understanding of preoperative plan. Patient's COVID19 status is: Unexposed. The patient currently has no concerning symptoms of COVID19. . Patient's COVID-19 vaccination status is Fully vaccinated. Documentation of vaccination status is available in the Epic Immunization tab. . Plan for pre-procedure COVID19 testing: Patient is fully vaccinated, asymptomatic, and not severely immunocompromised per the criteria in the [facility] Pre-Procedure COVID-19 Testing Update for Fully Vaccinated Patients. COVID-19 testing is not indicated. . Preoperative evaluation performed by iLat Barry NP on 12/08/20 at 11:18 AM. [...] Outpatient. Informed Consent: Discussed plan with attending, LAYAWAY CLERK and resident. Anesthesia plan and risks discussed [...] into the bladder Surgeon: Marquis Lopez MD Second Facing Baster: Alesha Callahan MD Anesthesia: General Complications: None [...] we did the procedure using a 19 Surinamese rigid cystoscope. There is no specific urethral [...] Resident - Assisting Anesthesiologist: Aranza Medina MD LAYAWAY CLERK: Gretel Ruano CRNA Cvt Tech: Chau Nair MD Mobile Engineer: Taya Peterson RN Scrub: Gary Bernal RN Orientee Mobile Engineer: Michael Jurado DATE OF SURGERY : 12/13/2020 [...] and Planning CPAP Clinic Location: [facility] The night before your surgery: [...] of surgery. * If having surgery at [facility], you may want to bring a credit card if you want to use our Mobile Pharmacy for your discharge medications. Mobile pharmacy is not available at [facility], the [facility], or the [facility] for [facility]. Outpatient Surgery: * You must have a [...] Kaplan RN - 12/06/2020 2:03 PM CDT Meta for Preoperative Assessment and Planning Perioperative Nursing Note Telephone Preoperative Evaluation ([facility]) - TELEPHONE ONLY, NO PHYSICAL [...] provided Information Provided on Healthcare Directives: Yes Communication/Net Manager Needs Communication Needs: Glasses Patient's Preferred Language: [place] Is an gear hobber needed? : No Assistive Devices/DME: Eyeglasses Discharge [...] in a congregate living facility (ex. assisted living/care home facility, senior care, group home)?: No Have you tested positive for COVID-19 [...] 20 seconds. Use an alcohol- based hand manager of maintenance that contains at least 60% alcohol if [...] insurance card, a photo ID (like a Circulator's license) and a method of payment for [...] Vaccination status criteria met based on current [facility] Pre-Procedure COVID 19 Testing Update for Fully Vaccinated Patients. If you have COVID testing or should have COVID testing for your surgery/procedure, please read below section: If you need to reschedule your COVID test to a different location or if your surgery gets rescheduled, you MUST call [phone] Sunday-Sunday 8am-4:30pm to get your COVID testing rescheduled or your lab order will not be available at Testing Sites. COVID Testing is only valid for up to 96 hours prior to surgery date, unless otherwise specified. If you are unable to reach staff at the above phone number, please call the CPAP Staff at [phone]. This number cannot order a lab test, [...] 20 seconds. Use an alcohol- based hand manager of maintenance that contains at least 60% alcohol if soap and water are not available. All patients should read below section: All visitors/patients are being asked to wear a clean mask when entering the hospital. COVID 19 Updates & Visitor Policy: Please access [email or web address] for the most updated information. Information on [facility]: Please view [email or web address] (Patient & Visitor Information) for additional details regarding Advanced Directive forms, AWARE, directions, parking information, lodging, Internet access, dining and more. Information on [facility]: Please view [email or web address] (Patient and Visitor Information) for parking/directions and more. For MyChart information, to activate account or password recovery, please go to [email or web address] or call [phone] (toll-free: [phone]). Surgery Times: For patients having surgery @ [facility] or [facility], if your surgeon's office has not notified you of your surgery time by NOON THE BUSINESS DAY BEFORE your surgery, please call [phone] and ask for your surgeon'soffice documented in [...] 5:55 AM CDT 30 mL/hr 30 mL/hr onabotulinumtoxin A (botulinum toxin type A, BOTOX) 200 unit/20 mL in sodium chloride 0.9% As needed, Starting on Sun12/13/20 at 0756, Intra-Op Given 12/13/2020 7:56 AM CDT 30 mL sodium chloride 0.9% flush 0.5-20 mL 0.5-20 mL, intra-catheter, As needed, line care, Starting on Sun12/13/20 at 0551, Pre-Op, Flush volume based on line type and size. Flush before and after each use. sodium chloride 0.9% irrigation As needed, Starting on Sun12/13/20 at 0753, Intra-Op Given 12/13/2020 7:53 AM CDT 1,000 mL Other (Comment) Given 12/13/2020 7:51 AM CDT 3,000 mL Ot her (Comment) documented in this encounter Discontinued Medications Medication [...] Comment: Switch to gravity)0800 (Restarted - Provider: Gretel Ruano CRNA) PRN Medication Order 12/11/2020 12/12/2020 12/13/2020 diphenhydrAMINE [...] 0.4 mg/mL injection 0.04-0.4 mg 1 12/13/2020 oxyCODONE (ROXICODONE) tablet 5 mg 1 2020 prochlorperazine (COMPAZINE) injection 10 mg 1 12/13/2020 sodium chloride 0.9% flush 0.5-20 mL 1 11/24 documented in this encounter Care Teams Document Management Consultant Relationship Specialty Start Date End Date Mick Flowers MD PCP - General 05/14/17 documented as of this encounter
--- OUTSIDE RECORDS SUMMARY | 2024-06-29 00:30 | XMS_ITS | Encounter Summary ---
Author Organization [facility] Healthcare Address [address] [place] [address] Care Team Providers Care Wood Gouger Name Role Phone Mick Flowers MD Primary Care Provider [phone] Encounter Details Date Type Department Care Team (Late st Contact Info) Description 06/13/2021 7:28 AM BOSOM PRESSER Anesthesia Event [facility] Operating Room [address] [place] [id number] Hector Moser MD [address] [place] [address] Radha Leavitt NP [address] [facility] [id number] [place] [address] Anesthesia Record Procedure Summary Procedure Name Responsible Anesthesiologist Anesthesia Start Time Anesthesia Stop Time INJECTION BOTOX 300 UNITS (Bladder) Hector Moser MD 06/13/21 0728 06/13/21 0814 Events Date Time Event Comment 06/13/2021 0548 In Preop 0706 0728 An Start 0731 In Room 0732 An Start Data 0735 An Induction The patient was reevaluated immediately before moderate or deep sedation use and before anesthesia induction. 0742 An LMA 0743 Anesthesia Ready 0747 Proc Start 0807 Proc Fin 0807 Airway Removed 0807 an stop data 0809 Out of Room 0814 Handoff to RN I completed my handoff [...] disposition at the time of handoff: PACU 0814 An Stop Meds Name Total midazolam PF 2 mg lidocaine (cardiac) syringe 2 % 50 mg propofol 200 mg fentaNYL 100 mcg ondansetron PF (ZOFRAN) 2 mg/mL injectio n 4 mg ceFAZolin 2,000 mg ceFAZolin (ANCEF) 2,000 mg/20 mL in ster ile water (premix) 2,000 mg 0 mg famotidine 20 mg Lactated Ringer's (LR) infusion 500 mL * Agents Name O2% N2O O2 N2O Air Sevoflurane Inspired Sevoflurane * Blood No blood administrations on file. Lines, Drains, and Airways Type Details Placement Removal RETIRED Surgical Site 05/06/18; 0753; Perineum; 07/04/22; 1357; Removal date unknown/not present on admission 05/06/18 0753 by Taya Peterson RN 07/04/22 1357 by Inga Mcgill RN RETIRED Surgical Site 11/04/18; 0757; Pe nis; [...] by Inga Mcgill RN RETIRED Surgical Site 05/04/20; 1445; No ; Left, Lower; Back; injection site; 07/04/22; 1357; Removal date unknown/not present on admission 05/04/20 1445 by Naa Mahan RN 07/04/22 1357 by Inga Mcgill, LILIA Peripheral IV Placement Date: 06/13/21; Placement Time: 623; Catheter Size: 20 G; Orientation: Left, Posterior; Location: Hand; Site Prep: Chlorhexidine, Alcohol; Technique: Anatomical landmarks; Inserted by: RM; Removal Date: 06/13/21; Removal Time: 90106/13/21 0624 by Fe Rees RN 06/13/21 0902 by Shin Silva, LILIA Supraglottic Airway Placement Date: 06/13/21; Placement Time: 07 (created via procedure documentation); Mask Ventilation: 1; Size: 5; Insertion Attempts: 1; Removal Date: 06/13/21; Removal Time: 80606/13/21 0743 by Sonya Solorzano CRNA 06/13/21 0807 by Sonya Solorzano CRNA RETIRED Surgical Site 06/13/21; 0808; No ; Penis; 12/12/22; 1529; Discharge 06/13/21 0808 by Vanita Garcia RN 12/12/22 1529 by Vanna Harris RN documented in this encounter Social History [...] on file Legal Sex Male 3:12 AM BOSOM PRESSER Gender Identity Not on file Sexual Orientation Not on file 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 on file Not on file documented as of this encounter OR Notes * Anesthesia Postprocedure Evaluation - Hector Moser MD - 06/13/2021 8:33 AM CST Patient: Doc Emery Procedure Summary Date: 06/13/21 Room / Location: [facility] OR POD 1 ROOM 323 / [facility] OR POD 1 Anesthesia Start: 727 Anesthesia Stop: 813 Procedures: INJECTION BOTOX 300 UNITS (N/A Bladder) CYSTOSCOPY (N/A Urethra) Diagnosis: Neurogenic bladder OAB (overactive bladder) (Neurogenic bladder [N31.9]) (OAB (overactive bladder) [N32.81]) Surgeons: Marquis Lopez MD Responsible Provider: Hector Moser MD Anesthesia Type: MAC ASA Status: 3 Anesthesia Type: MAC Last vitals BP 135/91 Pulse 72 Temp (!) 35.6 ??C (96.08 ??F) Resp 13 SpO2 97% Anesthesia Post Evaluation Patient location during evaluation: PACU Patient participation: complete - patient participated Level of consciousness: fully awake Pain score: 0 Pain management: adequate Airway patency: adequate Evidence of recall: no Cardiovascular status: hemodynamically stable Respiratory status: room air Hydration status: euvolemic Pt is: normothermic Nausea/Vomiting status: none Comments: Patient is conscious, oriented maintaining vitals can be shifted from PACU. No complications documented. M PRESSER * Anesthesia Procedure Notes - Sonya Solorzano CRNA - 06/13/2021 7:42 AM CSTAssociated Order(s): Airway Airway Patient location: OR Urgency: elective Indications for airway management: anesthesia Difficult airway: no Staff: Supervising provider: Hector Moser MD Placed by: TURBO ELECTRIC OPERATOR: Sonya Solorzano CRNA Emergent airway documentation: Risks and benefits discussed: yes Consent obtained: yes Consent given by: patient Airway prep: Preoxygenated: yes Patient position: sniffing Mask difficulty assessment: 1 - vent by mask Sedation level during airway: GA Final airway details: Final airway type: supraglottic airway SGA size: 5 Number of attempts: 1 Ventilation between attempts: BVM M PRESSER * Anesthesia Preprocedure Evaluation - Hector Moser MD - 06/08/2021 9:28 AM CST Images from the original note were not included. [facility] Preoperative Evaluation Record Evaluation type/location: TPAP from [facility] Planned procedure site: [facility] PVT OR (Pod 1) Date: 06/08/21 NOTE: This note represents a preoperative evaluation initiated via telephone interview. NO PHYSICALEXAM was performed at the time of initial assessment. A physical exam may be added to this note anddocumented below. Anesthesia Evaluation Doc Emery is a 55 y.o. male Procedure(s): INJECTION BOTOX 300 UNITS CYSTOSCOPY Pre-Op Diagnosis Codes: * Neurogenic bladder [N31.9] * OAB (overactive bladder) [N32.81] HISTORY HPI Doc Emery is a 55 [...] negatives: CAD (denies, noted in history items); HI ; CABG ; systolic/diastolic dysfunction w/o CHF [...] tab. . Plan for pre-procedure COVID19 testing: Telephone assessment performed. Request placed for pre-procedure COVID19 testing to be performed on 06/09/21. [facility] will place the order for testing. Result to be reviewed by surgeon's office. . The patient is on aspirin therapy for primary prevention. The patient's perioperative cardiovascular risk is deemed low or is outweighed by bleeding risk. If time permits, we support stopping aspirin7 or more days prior to the procedure. The patient reports that such a plan is already in place. Please call the CPAP attending ([phone]) with any questions. TPAP assessment complete. Preoperative evaluation performed by Radha Leavitt NP on 06/08/21 at 9:29 AM. . Patient Active Problem List Diagnosis ??? Neurogenic bladder disorder ??? Abnormality of gait and mobility ??? High risk medication use ??? Hypercholesterolemia ??? Primary insomnia ??? Multiple sclerosis (CMS/HCC) (HCC) ??? Penile discharge ??? Urethral stricture ??? Urinary tract infection ??? OAB (overactive bladder) ??? Bowel incontinence ??? Cardiovascular risk factor ??? Abnormal MRI ??? Vitamin D deficiency Past Medical History: Diagnosis Date ??? Coronary [...] Med List Status: Nurse Complete Set By: Rizwan Bagley RN at 06/07/2021 5:28 PM Taking? Last Dose Start Date End Date Provider ALPRAZolam (XANAX) 0.25 mg tablet 06/06/2021 06/27/18 -- Bettie Batres MD aspirin 81 mg enteric coated tablet 06/07/2021 -- -- Bettie Batres MD atorvastatin (LIPITOR) 20 mg tablet 06/07/2021 -- -- Bettie Batres MD cholecalciferol (VITAMIN D-3) 1,000 unit 06/07/2021 -- -- Bettie Batres MD EDEX 20 mcg injection Unknown 06/11/19 -- Bettie Batres MD famotidine (PEPCID) 10 mg tablet Past Week -- -- Bettie Batres MD felodipine (PLENDIL) 5 mg 24 hr tablet 06/07/2021 07/19/07 -- Bettie Batres MD hydroCHLOROthiazide (HYDRODIURIL) 25 mg tablet 06/07/2021 -- -- Bettie Batres MD losartan (COZAAR) 100 mg tablet 06/07/2021 -- -- Bettie Batres MD omeprazole (PriLOSEC) 10 mg capsule Past Week -- -- Btetie Batres MD POTASSIUM CHLORIDE ER 20 mEq CR tablet 06/07/2021 04/23/18 -- Bettie Batres MD urea (CARMOL) 40 % cream 06/07/2021 08/05/20 -- Bettie Batres MD No current facility-administered medications for this encounter. Current Outpatient Medications: ??? ALPRAZolam (XANAX) 0.25 mg tablet ??? aspirin 81 mg enteric coated tablet ??? atorvastatin (LIPITOR) 20 mg tablet ??? cholecalciferol (VITAMIN D-3) 1,000 unit ??? famotidine (PEPCID) 10 mg tablet ??? felodipine (PLENDIL) 5 mg 24 hr tablet ??? hydroCHLOROthiazide (HYDRODIURIL) 25 mg tablet ??? losartan (COZAAR) 100 mg tablet ??? omeprazole (PriLOSEC) 10 mg capsule ??? POTASSIUM CHLORIDE ER 20 mEq CR tablet ??? urea (CARMOL) 40 % cream ??? EDEX 20 mcg injection Social History Tobacco Use Smoking [...] Hypertension Father ??? Anesthesia problems Neg Hx PAT Physical Exam Airway Exam: Mallampati: II There were no vitals filed for this [...] and allergies reviewed. Attestation: This PAT evaluation 06/13/2021. Airway Exam: Mallampati: II Cervical ROM: FROM TM distance: 3 Cardiovascular Exam: Rate: regular Rhythm: regular Pulmonary Exam: LCTA, bilat EENT Exam: trachea midline Dental Exam: Appears intact Skin Exam: Skin is warm. Turgor is normal. Current state: Patient's current state is cooperative. Anesthesia Plan ASA 3 My patient is approved for the Anesthesia Controlled Medication protocol when under care of a TURBO ELECTRIC OPERATOR Planned anesthesia: MAC Induction: Induction: intravenous. Postoperative Plan: Patient's planned disposition post procedure is Floor. Informed Consent: Discussed plan with TURBO ELECTRIC OPERATOR. Anesthesia plan and risks discussed with patient. Plan and Consent Comments: Explained to the patient that during anesthesia, we must keep your airway open and need to intubatethe trachea. This can result in injury to your teeth, dental work, tongue, lips, nose or throat. You may have a sore throat from the airway used during surgery Consent and Attending signature: I and/or my designee have discussed the anesthesia plan, benefits, possible alternatives, parental presence at time of induction (if indicated), and clinically relevant risks that may include dental injury, unintentional awareness, and/or other complications. The patient and/or parent/legal guardian understand, and agree to proceed. All questions answered. M PRESSER M PRESSER documented in this encounter Plan of Treatment Not on file documented as of this encounter Procedures Procedure Name Priority Date/Time Associated Diagnosis Comments DC AN PROCEDURE PLACEHOLDER Routine 06/13/2021 7:42 AM BOSOM PRESSER DC AN ELECTIVE SUPRAGLOTTIC AIRWAY Routine 06/13/2021 7:42 AM BOSOM PRESSER documented in this encounter Results * DC AN ELECTIVE SUPRAGLOTTIC AIRWAY, DC AN PROCEDURE PLACEHOLDER (06/13/2021 7:42 AM BOSOM PRESSER) Narrative Sonya Solorzano CRNA - 06/13/2021 7:42 AM BOSOM PRESSER Sonya Solorzano CRNA ? 06/13/2021 ??7:43 AM Airway Patient location: OR Urgency: elective Indications for airway management: anesthesia Difficult airway: no Staff: Supervising provider: Hector Moser MD Placed by: TURBO ELECTRIC OPERATOR: Sonya Solorzano CRNA Emergent airway documentation: Risks and benefits discussed: yes Consent obtained: yes Consent given by: patient Airway prep: Preoxygenated: yes Patient position: sniffing Mask difficulty assessment: 1 - vent by mask Sedation level during airway: GA Final airway details: Final airway type: supraglottic airway SGA size: 5 Number of attempts: 1 Ventilation between attempts: BVM us Hector Best Moser MD ANESTHESIA ORDERABLES Fi nal Result documented in this encounter Visit Diagnoses Not on filedocumented in this encounter Administered Medications Inactive Administered Medications - up to 3 most recent administrations Medication Order MAR Action Action Date Dose Rate Site ceFAZolin (ANCEF) injection intravenous, Administer over 3 Minutes, As needed, Starting on Sun06/13/21 at 0739, Anesthesia Intra-op Given 06/13/2021 7:39 AM BOSOM PRESSER 2,000 mg famotidine (PEPCID) injection intravenous, Administer over 2 Minutes, As needed, Starting on Sun06/13/21 at 0729, Anesthesia Intra-op Given 06/13/2021 7:29 AM BOSOM PRESSER 20 mg fentaNYL (SUBLIMAZE) preservative free injection intravenous, As needed, Starting on Sun06/13/21 at 0746, Anesthesia Intra-op Given 06/13/2021 7:52 AM BOSOM PRESSER 25 mcg Given 06/13/2021 7:46 AM BOSOM PRESSER 50 mcg Given 06/13/2021 7:41 AM BOSOM PRESSER 25 mcg Lactated Ringer's (LR) infusion 30 mL/hr, intravenous, Continuous, Starting on Sun06/13/21 at 0630, Pre-Op Rate/Dose Verify 06/13/2021 7:28 AM BOSOM PRESSER 30 mL/hr New Bag 06/13/2021 6:28 AM BOSOM PRESSER 30 mL/hr 30 mL/hr lidocaine (cardiac) (XYLOCAINE) preservative free injection intravenous, As needed, Starting on Sun06/13/21 at 0736, Anesthesia Intra-op, Indications: Ventricular ArrhythmiasIndications:Ventricular Arrhythmias Given 06/13/2021 7:36 AM BOSOM PRESSER 50 mg midazolam (VERSED) 1 mg/mL preservative free injection intravenous, Administer over 2 Minutes, As needed, Starting on Sun06/13/21 at 0730, Anesthesia Intra-op Given 06/13/2021 7:30 AM BOSOM PRESSER 2 mg ondansetron (ZOFRAN) injection intravenous, Administer over 2 Minutes, As needed, Starting on Sun06/13/21 at 0730, Anesthesia Intra-op Given 06/13/2021 7:30 AM BOSOM PRESSER 4 mg propofoL (DIPRIVAN) 10 mg/mL IV intravenous, As needed, Starting on Sun06/13/21 at 0737, Anesthesia Intra-op Given 06/13/2021 7:38 AM BOSOM PRESSER 100 mg Given 06/13/2021 7:37 AM BOSOM PRESSER 100 mg documented in this encounter Care Teams Wood Gouger Relationship Specialty Start Date End Date Mick Flowers MD PCP - General 05/14/17 documented as of this encounter
--- OUTSIDE RECORDS SUMMARY | 2024-06-29 00:30 | XMS_ITS | Encounter Summary ---
Author Organization [facility] Medical Group Address [address] [place] [address] Care Team Providers Care Import Customs Clearing Agent Name Role Phone Mick Flowers MD Primary Care Provider [phone] Encounter Details Date Type Department Care Team (Late st Contact Info) Description 10/22/[address] [facility] Testing Site - [address] [place] [address] Pamella Kirby MD [address] [facility] [address] [place] [address] Pre-operative laboratory examination (Primary Dx) Social History Tobacco Use Types Packs/Day Years Used Date Smoking Tobacco: Never Smokeless Tobacco: Never Alcohol Use Standard Drinks/Week Comments Yes 0 (1 standard drink = 0.6 oz pur e alcohol) SOCIAL Sex and Gender Information Value Date Recorded Sex Assigned at Not on file Legal Sex Male 3:12 AM ENVIRONMENTAL COMPLIANCE SPECIALIST Gender Identity Not on file Sexual Orientation Not on file 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 Class: Internal Referral Ordering User: Terri Nicholas LPN Auth Provider: PAMELLA KIRBY Provider: Pamella Kirby MD Diagnosis: Elective surgery Department: [place] [id number] Sched Instruct: ?? Comment: [facility] [address] [facility] [place], [address] 8:30 - 4:30 Order Specific Questions Question Answer Comment Testing types: Pre-procedure ?? Date of Px/chemo/treatment/placement/transfer 12/13/2020 ?? Testing site patient will be sent to: [facility] ?? Date testing requested: 12/10/2020 ?? (Optional) Patient requires saliva test due to: ? Testing: COVID-RNA ?? Does the patient currently work in a healthcare facility with direct patient contact? No ?? Is the patient a resident of a congregate care or living setting? No ?? Is the patient ? No ?? Please select the performing region: [facility] Medical Group documented in this encounter Plan of Treatment Not on file documented as of this encounter Visit Diagnoses Diagnosis Pre-operative laboratory examination- Primary Pre-procedural laboratory examination documented in this encounter Care Teams Import Customs Clearing Agent Relationship Specialty Start Date End Date Mick Flowers MD PCP - General 05/14/17 documented as of this encounter
--- OUTSIDE RECORDS SUMMARY | 2024-06-29 00:30 | XMS_ITS | Encounter Summary ---
Author Organization [facility] Healthcare Address [address] [place] [address] Care Team Providers Care Hub Inventory Specialist Name Role Phone Mick Flowers MD Primary Care Provider [phone] Encounter Details Date Type Department Care Team (Late st Contact Info) Description 12/13/2020 7:26 AM CDT Anesthesia Event [facility] Operating Room [address] [place] [id number] Aranza Medina MD [facility] [address] [place] [address] Liat Barry NP [address] [facility] [id number] [place] [address] Anesthesia Record Procedure Summary Procedure Name Responsible Anesthesiologist Anesthesia Start Time Anesthesia Stop Time INJECTION BOTOX 300 UNITS (Bladder) Aranza Medina MD 12/13/20 0726 12/13/20 0813 Events Date Time Event Comment 12/13/2020 0539 In Preop 0710 0726 An Start 0728 In Room 0728 An Start Data 0732 An Induction The patient was reevaluated immediately before moderate or deep sedation use and before anesthesia induction. 0734 An LMA 0736 Anesthesia Ready 0741 Proc Start 0805 Proc Fin 0805 Airway Removed 0806 an stop data 0807 Out of Room 0813 Handoff to RN I completed my handoff [...] disposition at the time of handoff: PACU 0813 An Stop Meds Name Total midazolam PF 2 mg lidocaine (cardiac) syringe 2 % 80 mg propofol 200 mg fentaNYL 50 mcg phenylephrine 100 mcg/mL 50 mcg ePHEDrine 5 mg ondansetron PF (ZOFRAN) 2 mg/mL injectio n 4 mg ceFAZolin (ANCEF) 2,000 mg/20 mL in ster ile water (premix) 2,000 mg 2,000 mg dexamethasone 4 mg/ml 4 mg famotidine 20 mg Lactated Ringer's (LR) infusion 500 mL * Agents Name O2% N2O O2 Air Sevoflurane Inspired Sevoflurane * Blood No blood administrations on file. Lines, Drains, and Airways Type Details Placement Removal RETIRED Surgical Site 05/06/18; 0753; Perineum; 07/04/22; 1357; Removal date unknown/not present on admission 05/06/18 0753 by aTya Peterson RN 07/04/22 1357 by Inga Mcgill, [...] RN 07/04/22 1357 by Inga Mcgill RN Peripheral IV Placement Date: 12/13/20; Placement Time: 06; Catheter Size: 20 G; Orientation: Left; Location: Hand; Technique: Anatomical landmarks; Insertion Attempts: 1; Patient Tolerance: Tolerated well; Removal Date: 12/13/20; Removal Time: 0832; Removal Reason: Per order 12/13/20 0610 by Annabel Murry RN 12/13/20 0832 by Fe Rees RN Supraglottic Airway Placement Date: 12/13/20; Placement Time: 0735 (created via procedure documentation); Mask Ventilation: 1; Size: 5; Insertion Attempts: 2; Comments: Attempted igel 4 - leak detected. Exchanged for Igel 5. 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 on file Not on file documented as of this encounter OR Notes * Anesthesia Postprocedure Evaluation - Aranza Medina MD - 12/13/2020 8:30 AM CDT Patient: Doc Emery Procedure Summary Date: 12/13/20 Room / Location: [facility] OR POD 1 ROOM 324 / [facility] OR POD 1 Anesthesia Start: 725 Anesthesia Stop: 812 Procedures: INJECTION BOTOX 300 UNITS (N/A Bladder) CYSTOSCOPY (N/A Urethra) Diagnosis: Neurogenic bladder (Neurogenic bladder [N31.9]) Surgeons: Marquis Lopez MD Responsible Provider: Aranza Medina MD Anesthesia Type: general ASA Status: 2 Anesthesia Type: general Last vitals BP 116/81 Pulse 65 Temp 36 ??C (96.8 ??F) Resp 10 SpO2 95% Anesthesia Post Evaluation Patient location during evaluation: PACU Patient participation: complete - patient participated Level of consciousness: follows simple commands and fully awake Pain score: 0 Pain management: adequate Airway patency: adequate Evidence of recall: no Cardiovascular status: acceptable and hemodynamically stable Respiratory status: acceptable and room air Hydration status: acceptable Pt is: normothermic Nausea/Vomiting status: none No complications documented. * Anesthesia Procedure Notes - Gretel Ruano CRNA - 12/13/2020 7:42 AM CDTAssociated Order(s): Airway Airway Patient location: OR Urgency: elective Date/time: 12/13/2020 7:35 AM Indications for airway management: anesthesia and airway protection Difficult airway: no Staff: Supervising provider: Aranza Medina MD Placed by: GRINDER BRAKE LINING: Gretel Ruano CRNA Emergent airway documentation: Risks and benefits discussed: yes Consent obtained: yes Consent given by: patient Airway prep: Preoxygenated: yes Patient position: sniffing MILS maintained throughout: yes Mask difficulty assessment: 1 - vent by mask Spontaneous ventilation during airway: absent Sedation level during airway: GA Final airway details: Final airway type: supraglottic airway Final supraglottic airway: IGel SGA size: 5 Number of attempts: 2 Additional comments: Attempted igel 4 - leak detected. Exchanged for Igel 5. Atraumatic intubation; dentition unchanged following intubation. * Anesthesia Preprocedure Evaluation - Aranza Medina MD - 12/08/2020 8:05 AM CDT Images from the original note were not included. Center for Preoperative Assessment and Planning Preoperative Evaluation Record Evaluation type/location: TPAP from [facility] Planned procedure site: [facility] PVT OR (Pod 1) Date: [...] severely immunocompromised per the criteria in the [facility] Pre-Procedure COVID-19 Testing Update for Fully Vaccinated [...] 20 mEq CR tablet 12/06/2020 04/23/18 -- Bettie Batres MD No current [...] Outpatient. Informed Consent: Discussed plan with attending, GRINDER BRAKE LINING and resident. Anesthesia plan and risks discussed [...] Diagnosis Comments DC AN PROCEDURE PLACEHOLDER Routine 12/13/2020 7:35 AM CDT DC AN ELECTIVE SUPRAGLOTTIC AIRWAY Routine 12/13/2020 7:35 AM CDT documented in this encounter Results * DC AN ELECTIVE SUPRAGLOTTIC AIRWAY, DC AN PROCEDURE PLACEHOLDER (12/13/2020 7:35 AM CDT) Narrative Gretel Ruano CRNA - 12/13/2020 7:35 AM CDT Gretel Ruano CRNA ? 12/13/2020 ??7:43 AM Airway Patient location: OR Urgency: elective Date/time: 12/13/2020 7:35 AM Indications for airway management: anesthesia and airway protection Difficult airway: no Staff: Supervising provider: Aranza Medina MD Placed by: GRINDER BRAKE LINING: Gretel Ruano CRNA Emergent airway documentation: Risks and benefits discussed: yes Consent obtained: yes Consent given by: patient Airway prep: Preoxygenated: yes Patient position: sniffing MILS maintained throughout: yes Mask difficulty assessment: 1 - vent by mask Spontaneous ventilation during airway: absent Sedation level during airway: GA Final airway details: Final airway type: supraglottic airway Final supraglottic airway: IGel SGA size: 5 Number of attempts: 2 Additional comments: Attempted igel 4 - leak detected. Exchanged for Igel 5. Atraumatic intubation; dentition unchanged following intubation. Aranza Medina MD ANESTHESIA ORDERABLES Final Result documented in this encounter Visit Diagnoses Not on filedocumented in this encounter Administered Medications Inactive Administered Medications - up to 3 most recent administrations Medication Order MAR Action Action Date Dose Rate Site ceFAZolin (ANCEF) 2,000 mg/20 mL in sterile water (premix) 2,000 mg 2,000 mg, intravenous, at 400 mL/hr, Administer over 3 Minutes, Once, On Sun12/13/20 at 0630, For 1 dose, Pre-Op, Administer within 60 minutes of incision., Indications: Prophylaxis, SurgicalIndications:Prophylaxis, Surgical Given 12/13/2020 7:37 AM CDT 2,000 mg dexAMETHasone (DECADRON) 4 mg/mL injection intravenous, Administer over 2 Minutes, As needed, Starting on Sun12/13/20 at 0739, Anesthesia Intra-op Given 12/13/2020 7:39 AM CDT 4 mg ePHEDrine injection intravenous, Administer over 5 Minutes, As needed, Starting on Sun12/13/20 at 0743, Anesthesia Intra-op Given 12/13/2020 7:43 AM CDT 5 mg famotidine (PEPCID) injection intravenous, Administer over 2 Minutes, As needed, Starting on Sun12/13/20 at 0739, Anesthesia Intra-op Given 12/13/2020 7:39 AM CDT 20 mg fentaNYL (SUBLIMAZE) preservative free injection intravenous, As needed, Starting on Sun12/13/20 at 0732, Anesthesia Intra-op Given 12/13/2020 7:32 AM CDT 50 mcg Lactated Ringer's (LR) infusion 30 mL/hr, intravenous, Continuous, Starting on Sun12/13/20 at 0630, Pre-Op Restarted 12/13/2020 8:00 AM CDT Rate/Dose Verify 12/13/2020 7:26 AM CDT 30 mL/h r New Bag 12/13/2020 5:55 AM CDT 30 mL/hr 30 mL/hr lidocaine (cardiac) (XYLOCAINE) preservative free injection intravenous, As needed, Starting on Sun12/13/20 at 0732, Anesthesia Intra-op, Indications: Ventricular ArrhythmiasIndications:Ventricular Arrhythmias Given 12/13/2020 7:32 AM CDT 80 mg midazolam (VERSED) 1 mg/mL preservative free injection intravenous, Administer over 2 Minutes, As needed, Starting on Sun12/13/20 at 0728, Anesthesia Intra-op Given 12/13/2020 7:28 AM CDT 2 mg ondansetron (ZOFRAN) injection intravenous, Administer over 2 Minutes, As needed, Starting on Sun12/13/20 at 0739, Anesthesia Intra-op Given 12/13/2020 7:39 AM CDT 4 mg phenylephrine (HOWIE-SYNEPHRINE) 1 mg/10 mL (100 mcg/mL) in sodium chloride 0.9% (premix) intravenous, As needed, Starting on Sun12/13/20 at 0732, Anesthesia Intra-op Given 12/13/2020 7:32 AM CDT 50 mcg propofoL (DIPRIVAN) 10 mg/mL IV intravenous, As needed, Starting on Sun12/13/20 at 0732, Anesthesia Intra-op Given 12/13/2020 7:32 AM CDT 200 mg documented in this encounter Care Teams Hub Inventory Specialist Relationship Specialty Start Date End Date Mick Flowers MD PCP - General 05/14/17 documented as of this encounter
--- OUTSIDE RECORDS SUMMARY | 2024-06-29 00:30 | XMS_ITS | Encounter Summary ---
Author Organization [facility] Address [address] [place] [address] Phone Care Team Providers Care Network Development Coordinator Name Role Phone Mick Flowers MD Primary Care Provider [phone] Encounter Details Date Type Department Care Team (Late st Contact Info) Description 10/19/2020 Telephone [facility] Russell cMgill CPhT Social History Tobacco Use Types Packs/Day Years Used Date Smoking Tobacco: Never Smokeless Tobacco: Never Alcohol Use Standard Drinks/Week Comments Yes 0 (1 standard drink = 0.6 oz pur e alcohol) SOCIAL Sex and Gender Information Value Date Recorded Sex Assigned at Not on file 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 Coverage active effective 06/25/2020. ID# [id number]. 1500 Deductible (met); 3000 Out of Pocket (zero applied); 80/20 Co-Insurance; No Co-Pay; No Referralrequired. [facility] Primary Insurance. CPT 58991 no Pre-Cert required. Pre-Cert required J0585 @ [employer] . Call ref# [id number]. S/W Shagufta Vazquez @ [employer] . Pre-Cert initiated J0585 clinical faxed to . Pending case# [id number]. Call ref# same as pending case#. JL 10/19/2020 S/W Taylor [place] @ [facility] . Coverage active effective 06/25/2020. ID# [id number]. [facility] plan secondary insurance to [facility]. No Pre-Cert/Pre-D required. Call ref# Taylor Thomas10/22/2020. JL 10/22/2020 Fax received from [facility] scanned into [employer]. Pre-Cert J0585 BOTOX approved @ [facility]. 300 units/5 visits. Approval dates 10/19/2020 - 10/18/2021. Auth# [id number]. CPT 04028 no Pre-Cert/Pre-D required. [facility] . Division notified. 10/22/2020 ----- Message from Terri Nicholas LPN sent at 10/15/2020 8:59 AM CDT ----- Regarding: Pre-D for surgery Requesting Pre-Determination Benefits. ORDERING PROVIDER: Dr. Juice Lopez PROCEDURE DESCRIPTION: Botox 300 Units CPT CODE:84698 DIAGNOSIS CODE:N31.2 PLACE OF SERVICE: OR -Clinic -OR -Other ADMIT STATUS: OP TENTATIVE DATE OF SERVICE: 10/28/2020 OTHER: documented in this encounter Plan of Treatment Not on file documented as of this encounter Visit Diagnoses Not on filedocumented in this encounter Care Teams Network Development Coordinator Relationship Specialty Start Date End Date Mick Flowers MD PCP - General 05/14/17 documented as of this encounter
--- OUTSIDE RECORDS SUMMARY | 2024-06-29 00:30 | XMS_ITS | Encounter Summary ---
Author Organization [facility] Address [address] [place] [address] Care Team Providers Care Face Burler Name Role Phone Mick Flowers MD Primary Care Provider [phone] Reason for Visit * Reason Onset Date Comments Covid-19 Home Monitoring 06/15/2020 Encounter Details Date Type Department Care Team (Late st Contact Info) Description 06/15/2020 Telephone [facility] Accountable Care Organization [address] [place] [address] Rosalee Pisano MA [address] [place] [address] [address] [facility] [address] [place] [address] Covid-19 Home Monitoring Social History Tobacco Use Types Packs/Day Years Used Date Smoking Tobacco: Never Smokeless Tobacco: Never Alcohol Use Standard Drinks/Week Comments Yes 0 (1 standard drink = 0.6 oz pur e alcohol) SOCIAL Sex and Gender Information Value Date Recorded Sex Assigned at Not on file 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 By saving a note using this template, the patient will drop off our home monitoring candidate reports for two weeks. If we still consider them to have an active case of COVID-19 at that time, we willreevaluate them for home monitoring. NT BABYSITTER documented in this encounter Plan of Treatment Not on file documented as of this encounter Visit Diagnoses Not on filedocumented in this encounter Additional Health Concerns Infection Onset Date Last Indicated Resolved Time COVID: Recovered Comment:Added based on recent COVID infection. 06/11/2020 06/11/2020 10/09/2020 3:06 AM C DT documented as of this encounter Care Teams Face Burler Relationship Specialty Start Date End Date Mick Flowers MD PCP - General 05/14/17 documented as of this encounter
--- OUTSIDE RECORDS SUMMARY | 2024-06-29 00:30 | XMS_ITS | Encounter Summary ---
Author Organization [facility] Healthcare Address [address] [place] [address] Care Team Providers Care Superintendent General Name Role Phone Mick Flowers MD Primary Care Provider [phone] Encounter Details Date Type Department Care Team (Late st Contact Info) Description 06/21/2020 2:24 PM HOOP PUNCHER Anesthesia Event [facility] Operating Room [address] [place] [id number] Jeet Dent Sr., MD [address] [facility] [address] [place] [address] Ngozi Wong DONOR SERVICES TEAM LEADER [address] [facility] [address] [place] [address] Anesthesia Record Procedure Summary Procedure Name Responsible Anesthesiologist Anesthesia Start Time Anesthesia Stop Time INJECTION BOTOX 300 UNITS, Fulguration of Bladder (Bladder) Jeet Dent Sr., MD 06/21/20 1424 06/21/20 1504 Events Date Time Event Comment 06/21/2020 1302 In Preop 1353 1424 An Start 1426 In Room 1427 An Start Data 1432 An Induction The patient was reevaluated immediately before moderate or deep sedation use and before anesthesia induction. 1432 Start Supplemental O2 1432 Anesthesia Ready 1437 Proc Start 1458 Proc Fin 1500 Out of Room 1504 Handoff to RN I completed my handoff [...] disposition at the time of handoff: PACU 1504 An Stop Meds Name Total midazolam PF 2 mg lidocaine 1 % PF 100 mg propofol 180 mg Lactated Ringer's (LR) infusion 0 mL * Agents Name O2% N2O O2 Sevoflurane Inspired Sevoflurane * Blood No blood [...] Inga Mcgill RN Peripheral IV Placement Date: 06/21/20; Placement Time: 1400; Removal Date: 06/21/20; Removal Time: 1542; Removal Reason: Per order 06/21/20 1400 by Omi Boateng RN 06/21/20 1542 by Lorena Awad RN documented in this encounter Social History Tobacco Use Types Packs/Day Years Used Date Smoking Tobacco: Never Smokeless Tobacco: Never Alcohol Use Standard Drinks/Week Comments Yes 0 (1 standard drink = 0.6 oz pur e alcohol) SOCIAL Sex and Gender Information Value Date Recorded Sex Assigned at Not on file 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 Gender Identity Not on file Sexual Orientation Not on file 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 on file Not on file documented as of this encounter OR Notes * Anesthesia Postprocedure Evaluation - Jeet Dent Sr., MD - 06/21/2020 3:27 PM CST Patient: Doc Emery Procedure Summary Date: 06/21/20 Room / Location: [facility] OR POD 1 ROOM 323 / [facility] OR POD 1 Anesthesia Start: 1424 Anesthesia Stop: 1504 Procedures: INJECTION BOTOX 300 UNITS, Fulguration of Bladder (N/A Bladder) CYSTOSCOPY (N/A Urethra) Diagnosis: Neurogenic bladder (Neurogenic bladder [N31.9]) Surgeons: Marquis Lopez MD Responsible Provider: Jeet Dent Sr., MD Anesthesia Type: MAC ASA Status: 2 Anesthesia Type: MAC Last vitals BP 120/78 Pulse 54 Temp 36.2 ??C (97.2 ??F) (Temporal) Resp 12 SpO2 94% Anesthesia Post Evaluation Patient location during evaluation: PACU Patient participation: complete - patient participated Level of consciousness: fully awake Pain score: 0 Pain management: satisfactory to patient Airway patency: adequate Evidence of recall: no Anesthetic complications: no Cardiovascular status: hemodynamically stable Respiratory status: room air Hydration status: euvolemic Pt is: normothermic Nausea/Vomiting status: none PUNCHER * Anesthesia Preprocedure Evaluation - Jeet Dent Sr., MD - 05/27/2020 2:17 PM CST Images from the original note were not included. Center for Preoperative Assessment and Planning Preoperative Evaluation Record Evaluation type/location: TPAP from [facility] Planned procedure site: [facility] PVT OR (Pod 1) Date: 05/27/20 NOTE: [...] negatives: CAD (denies, noted in history items); PR ; CABG ; systolic/diastolic dysfunction w/o CHF [...] COVID19 testing to be performed on 05/28. [facility] will contact patient to schedule testing, surgeon'soffice to follow results. CMP reviewed from 03/15/20 and unremarkable Pending labs/tests [...] instructions were provided in writing sent via [employer]. Patient verbalized understanding ofpreoperative plan. Preoperative evaluation [...] 0.25 mg tablet 05/25/2020 06/27/18 -- Bettie Baters MD atorvastatin (LIPITOR) 20 mg tablet 05/26/2020 [...] (HYDRODIURIL) 25 mg tablet 05/26/2020 -- -- ProviderBettie MD losartan (COZAAR) 100 mg tablet 05/26/2020 -- -- Bettie Batres MD POTASSIUM CHLORIDE ER 20 mEq CR tablet 05/26/2020 04/23/18 -- ProviderBettie MD No current facility-administered medications [...] last 720 hours. Romain index score: 95 DOS Physical Exam Medical history, medications, and allergies reviewed. Attestation: This PAT evaluation Airway Exam: Mallampati: II Cervical ROM: FROM TM distance: 3 Cardiovascular Exam: Rate: regular Rhythm: regular Pulmonary Exam: LCTA EENT Exam: trachea midline Dental Exam: Appears intact and caps Abdominal Exam: Abdomen is soft. Bowel sounds are present. Current state: Patient's current state is cooperative and interactive. Anesthesia Plan ASA 2 Planned anesthesia: MAC Postoperative Plan: No postoperative mechanical ventilation intended. Patient's planned disposition post procedure is Outpatient. No trial extubation planned. Informed Consent: Discussed plan with MOVER. Anesthesia plan and risks discussed with patient. Consent and Attending signature: I and/or my designee have discussed the anesthesia plan, benefits, possible alternatives, parental presence at time of induction (if indicated), and clinically relevant risks that may include dental injury, unintentional awareness, and/or other complications. The patient and/or parent/legal guardian understand, and agree to proceed. All questions answered. PUNCHER PUNCHER PUNCHER PUNCHER documented in this encounter Plan of Treatment Not on file documented as of this encounter Visit Diagnoses Not on filedocumented in this encounter Administered Medications Inactive Administered Medications - up to 3 most recent administrations Medication Order MAR Action Action Date Dose Rate Site Lactated Ringer's (LR) infusion 30 mL/hr, intravenous, Continuous, Starting on Sun06/21/20 at 1430, Pre-Op New Bag 06/21/2020 2:29 PM HOOP PUNCHER New Bag 06/21/2020 2:07 PM HOOP PUNCHER 30 mL/hr 30 mL/hr lidocaine PF (XYLOCAINE) 10 mg/mL (1 %) preservative free injection As needed, Starting on Sun06/21/20 at 1432, Anesthesia Intra-op Given 06/21/2020 2:32 PM HOOP PUNCHER 100 mg midazolam (VERSED) 1 mg/mL preservative free injection intravenous, Administer over 2 Minutes, As needed, Starting on Sun06/21/20 at 1424, Anesthesia Intra-op Given 06/21/2020 2:24 PM HOOP PUNCHER 2 mg propofoL (DIPRIVAN) IV intravenous, As needed, Starting on Sun06/21/20 at 1430, Anesthesia Intra-op Given 06/21/2020 2:44 PM HOOP PUNCHER 40 mg Given 06/21/2020 2:41 PM HOOP PUNCHER 40 mg Given 06/21/2020 2:30 PM HOOP PUNCHER 100 mg documented in this encounter Additional Health Concerns Infection Onset Date Last Indicated Resolved Time COVID: Recovered Comment:Added based on recent COVID infection. 06/11/2020 06/11/2020 10/09/2020 3:06 AM C DT documented as of this encounter Care Teams Superintendent General Relationship Specialty Start Date End Date Mick Flowers MD PCP - General 05/14/17 documented as of this encounter
--- OUTSIDE RECORDS SUMMARY | 2024-06-29 00:30 | XMS_ITS | Encounter Summary ---
Author Organization [facility] Address [address] [place] [address] Phone Care Team Providers Care Psychiatric Therapist Name Role Phone Mick Flowers MD Primary Care Provider [phone] Reason for Visit * Reason Comments PT Initial Eval PT Discharge Force Production Deficit * Consultation (Routine) - Closed Specialty Diagnoses / Procedures Referred By Christy t Referred To Contact Physical Therapy Diagnoses Multiple sclerosis (HCC) Abnormal MRI Vitamin D deficiency Abnormality of gait and mobility Neurogenic bladder disorder Incontinence of feces with fecal urgency Rafia Rich, STRATEGIC PROCUREMENT MANAGER [address] [place] [address] Phone: tel: fax: [facility] (All Locations) Referral ID Status Reason Start Date Expiration Date V isits Requested Visits Authorized [id number] Closed Specialty Services Required 02/17/2021 02/17/2022 24 1 Encounter Details Date Type Department Care Team (Late st Contact Info) Description 03/28/2021 10:00 AM CDT Therapy [facility] Physical Therapy [address] [place] [id number] Vanna Muñoz DPT [address] [facility] [address] [place] [address] Multiple sclerosis (CMS/HCC) (HCC) (Primary Dx); Abnormal MRI; Vitamin D deficiency; Abnormality of gait and mobility; Neurogenic bladder disorder; Incontinence of feces with fecal urgency; Right foot drop Social History Tobacco Use Types Packs/Day Years [...] on file Legal Sex Male 3:12 AM RN CALL CENTER Gender Identity Not on file Sexual Orientation Not on file 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 on file Not on file documented as of this encounter Last Filed Vital Signs Vital Sign Reading Time Taken Comments Blood Pressure 126/86 03/28/2021 10:56 AM CDT Pulse 74 03/28/2021 10:56 AM CDT Temperature - - Respiratory Rate - - Oxygen Saturation - - Inhaled Oxygen Concentration - - Weight - - Height - - Body Mass Index - - documented in this encounter Progress Notes * Vanna Muñoz, DPT - 03/28/2021 10:00 AM CDT Physical Therapy Initial Evaluation/Discharge Summary Date of Service: 03/28/2021 Referring Provider: Rafia Rich, STRATEGIC PROCUREMENT MANAGER [address] [place] [address] Doc Emery 1965 55 y.o. male ICD-9-CM ICD-10-CM 1. Multiple sclerosis (CMS/HCC) (HCC) 340 G35 Ambulatory referral order to Physical Therapy - 2. Abnormal MRI 793.99 R93.89 Ambulatory referral order to Physical Therapy - 3. Vitamin D deficiency 268.9 E55.9 Ambulatory referral order to Physical Therapy - 4. Abnormality of gait and mobility 781.2 R26.9 Ambulatory referral order to Physical Therapy - 5. Neurogenic bladder disorder 596.54 N31.9 Ambulatory referral order to Physical Therapy - 6. Incontinence of feces with fecal urgency 787.63 R15.9 Ambulatory referral order to Physical Therapy - R15.2 7. Right foot drop 736.79 M21.371 Chief Complaint PT Initial Eval; PT Discharge; Force Production Deficit Past Medical History: Diagnosis Date ??? Coronary [...] Left unknown Patient Active Problem List Diagnosis ??? Neurogenic bladder disorder ??? Abnormality of gait and mobility ??? High risk medication use ??? Hypercholesterolemia ??? Primary insomnia ??? Multiple sclerosis (CMS/HCC) (HCC) ??? Penile discharge ??? Urethral stricture ??? Urinary tract infection ??? OAB (overactive bladder) ??? Bowel incontinence ??? Cardiovascular risk factor ??? Abnormal MRI ??? Vitamin D deficiency Precautions: None Subjective History: The patient has PPMS dx in 1989 referred with a decline in his walking that began to decline in 1999. He's referred for a 1x/only visit for brace consultation for right foot drop. He used to be able to run/jog until 10 years ago and stopped 10 years ago. He walks indep without a device or bracing. He has some tripping which is worse when he is fatigued. He has heat sensitivity but does not currently use strategies to address this. He states that while he is here for brace consultation, he does not want to wear one. He notes that he is less steady when fatigued, when hiking, descending stairs or after he's been drinking (socally). He goes to the gym 4 days/week (cardio 1x/week and weights). He walks his dog 1 mile 3 days/week. He notes difficulty with descending stairs and equipment at work. He does not have a fitness tracking device that allows for tracking of his steps or his HR. Chief Complaint: Reduce falling and right foot drag Prior Level of Function: independent with all previous levels of function Patient's Goal(s): Reduce tripping and falls Approximate Date of MS Diagnosis/Onset: 1989 MS clinical phenotype: per PPMS Current DMT: Edex injections as needed Heat/humidity sensitivity? [x] Yes [] No Comments: just deals with it (no cooling vest/strategies Cold sensitivity? [] Yes [x] No Comments: Fatigue? [x] Yes [] No Comments: balance is worse when fatigued Pain: No Falls in last 6 months: 3 Fall direction: Forward due to right foot catching Near fall frequency: 1/month Balance worsens with: fatigue, uneven surfaces and ascending stairs Balance improves with: walking on level terrain Do you cough or choke around meal times? [] Yes [x] No Comments: Do you cough or choke on your own secretions? [] Yes [x] No Comments: Have you unintentionally lost weight recently? [] Yes [x] No Comments: Any recent pneumonia? [] Yes [x] No Comments: Discomfort with swallowing? [] Yes [x] No Comments: Difficulty physically speaking? [] Yes [x] No Comments: Difficulty getting the right words? [] Yes [x] No Comments: Difficulty understanding others? [] Yes [x] No Comments: Difficulty with reading or writing? [] Yes [x] No Comments: Difficulty communicating complex ideas? [] Yes [x] No Comments: Difficulty communicating at work/social relationships? 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 Living situation: Patient live with significant other/spouse in a Three Story Patient's home has the following to enter: [x] 0 Steps Pt's bedroom is located on the main level Pt's primary bathroom is located on the main level Current amount of caregiver support: none Objective Vitals: Vitals: 03/28/21 0946 03/28/21 1056 BP: 120/95 126/86 Pulse: 75 74 Cognition: A&O x4 Integument: reports no skin breakdown Lower Extremity Strength and Range of Motion: Left MMT Left PROM Right MMT Right PROM Comments Hip Flexion 5/5 4/5 Hip Extension 5/5 3+/5 Hip Abduction 5/5 3+/5 Hip Adduction 5/5 3+/5 Knee Extension 5/5 4/5 Knee Flexion 5/5 3+/5 Ankle DF 5/5 3/5 Ankle PF 5/ 4/5 Ankle Eversion / 4/5 Ankle Inversion 5/ 3/5 Tone: [x] Normal [] Hypotonicity [] hypertonicity Comments: Modified Dav Scale: Left Right Plantarflexors 0: no increase in tone 0: no increase in tone Quadriceps 0: no increase in tone 0: no increase in tone Hamstrings 0: no increase in tone 0: no increase in tone Adductors 0: no increase in tone 0: no increase in tone Coordination: [x] Intact [] Impaired Comments: Transfers: Assistance Comments Sit to stand independent No use of hands; good control Stand to sit independent Chair to mat independent Gait Analysis: ??? Gait on Level Surfaces: level of assistance - independent; device - no device; Pt demonstrates right foot slap. He was able to clear his foot without tripping. He does slow his gait to step over objects and has to flex more at his hip and knee to clear. ??? Gait on Stairs: level of assistance - independent; device - no device; Pt demonstrates reciprocal, ascending, reciprocal, descending. Prefers to look down Standardized Tests: 5 times sit to stand score: 8.06 seconds Mc Balance: Mc Balance Scale 1. Sitting to Standing: Able to stand without using hands and stabilize independently 2. Standing Unsupported: Able to stand safely for 2 minutes 3. Sitting with Back Unsupported but Feet Supported on Floor or on a Stool: Able to sit safely and securely for 2 minutes 4. Standing to Sitting: Sits safely with minimal use of hands 5. Transfers: Able to transfer safely with minor use of hands 6. Standing Unsupported with Eyes Closed: Able to stand 10 seconds safely 7. Standing Unsupported with Feet Together: Able to place feet together independently and stand 1 minute safely 8. Reach Forward with Outstretched Arm While Standing: Can reach forward confidently 25 cm (10 inches) 9. Keyseater Operator Object from Floor from a Standing Position: Able to greens picker slipper safely and easily 10. Turning to Look Behind Over Left and Right Shoulders While Standing: Looks behind from both sides and weight shifts well 11. Turn 360 Degrees: Able to turn 360 degrees safely in 4 seconds or less [address] Place Alternate Foot on Step or Stool While Standing Unsupported: Able to stand independently and safely and complete 8 steps in 20 seconds 13. Standing Unsupported One Foot in Front: Able to place foot tandem independently and hold 30 seconds 14. Standing on One Leg: Able to lift leg independently and hold greater than or equal to 3 seconds Mc Balance Score: 54 Functional Gait Assessment: Item Grade Gait level surface Instructions: Walk at your normal speed from here to the next kathleen (6 m [20 ft]). 3 - Normal: Etliw9n (20ft) in less than 5.5 sec, no AD, good speed, no evidence for imbalance, normal gait pattern, deviates no more than 15.24cm (6in) outside the 30.48cm (12in) walkway width. 2. Change gait speed Instructions: Begin walking at your normal pace (for1.5m[5ft]).When I tell you ???go,?? walk as fast as you can (for 1.5 m [5 ft]). When I tell you ???slow,?? walk as slowly as you can (for 1.5 m [5 ft]). 3 - Normal: Able to smoothly change walking speed without loss of balance or gait deviation.Shows a significant difference in walking speeds between normal, fast, and slow speeds. Deviates nomore than 15.24 cm (6 in) outside of the 30.48 cm (12 in) walkway width. 3. Gait with horizontal head turns Instructions: Walk from here to the next kathleen 6 m (20 ft) away. Begin walking at your normal pace. Keep walking straight; after 3 steps, turn your head to the right and keep walking straight while looking to the right. After 3 more steps, turn your head to the left and keep walking straight while looking left. Continue alternating looking right and left every 3 steps until you have completed 2 repetitions in each direction. Grading: Kathleen the highest category that applies. 3 - Normal: Performs head turns smoothly with no change in gait. Deviates no more than 15.24 cm (6 in) outside 30.48 cm (12 in) walkway width. 4. Gait with vertical head turns Instructions: Walk from here to the next kathleen (6m[20ft]). Begin walking at your normal pace. Keep walking straight; after 3 steps, tip your head up and keep walking straight while looking up. After 3 more steps, tip your head down, keep walking straight while looking down. Continue alternating looking up and down every 3 steps until you have completed 2 repetitions in each direction. 3 - Normal: Performs head turns with no change in gait. Deviates no more than 15.24 cm (6 in) outside 30.48 cm (12 in) walkway width. 5. Gait and pivot turn Instructions: Begin with walking at your normal pace. When I tell you, ???turn and stop,?? turn as quickly as you can to face the opposite direction and stop. 2 - Mild impairment: Pivot turns safely in 3 seconds and stops with no loss of balance, or pivot turns safely within 3 seconds and stops with mild imbalance, requires small steps to catch balance. 6. Step over obstacle Instructions: Begin walking at your normal speed. When you come to the shoe box, step over it, not around it, and keep walking. 2 - Mild impairment: Is able to step over one shoe box (11.43 cm (4.5 in) total height) without changing gait speed; no evidence of imbalance. 7. Gait with narrow base of support Instructions: Walk on the floor with arms folded across the chest, feet aligned heel to toe in tandem for a distance of 3.6m[12ft].The number of steps taken in a straight line are counted for a maximum of 10 steps. 3 - Normal: Is able to ambulate for 10 steps heel to toe with no staggering. 8. Gait with eyes closed Instructions: Walk at your normal speed from here to the next kathleen (6 m [20 ft]) with your eyes closed. 1 - Moderate impairment: Walks 6 m (20 ft), slow speed, abnormal gait pattern, evidence for imbalance, deviates 25.4-38.1 cm (10-15 in) outside 30.48 cm (12 in) walkway width. Requires more than 9 seconds to ambulate 6 m (20 ft). 9. Ambulating backwards Instructions: Walk backwards until I tell you to stop. 3 - Normal: Walks 6 m (20 ft), no assistive devices, good speed, no evidence for imbalance, normal gait pattern, deviates no more than 15.24 cm (6 in) outside 30.48 cm (12 in) walkway width. 10. Steps Walk up these stairs as you would at home (ie,usingtherail if necessary). At the top turn around and walk down. 3 - Normal: Alternating feet, no rail. Total Score 26/30 6 Minute Walk: Pre During 6 Minute Walk - During Distance Walked (feet): 1500 feet Post 6 Minute Walk - Post HR: 71 bpm BP: 151/95 6 Minute Walk - Post HR: 71 bpm BP: 151/95 10 Meter Walk Test total time and gait speed (with no AD): 1.21 m/s (comfortable); 1.54 m/sec (fast) Activities Specific Balance Scale (ABC): 85% CONSULTING TECHNICAL MANAGER-12: 39/60; 65% Interventions: Treatment Provided: Treatment Done Today HEP Exercise Response Therapeutic Exercise [x] [x] Added to HEP: 1. SLS (bilat) with and without partial squat 2. Single heel raise (bilat) -Continue gym ex and walking [] [] [] [] [] [] Therapeutic Activity [x] [] Reviewed cooling strategies (stay well hydrated, use cooling towel, cooling vest avoid excessiveexposure to direct sun on hot days) [] [] [] [] [] [] [] [] Neuro Re-ed [] [] [] [] [] [] [] [] Gait Training [] [] [x] [] Reviewed three bracing options and their pros/cons 1. In the shoe (WalkOn) 2. Attached to the ankle/shoe (pre-nicole; Flop-Stop style) 3. Bioness The patient stated he likely wouldn't use anything but if he pursued one, it would be option 2 Discussed that he could wear one when fatigued or with hiking/inclines if he did not wish to wear one second time worker -Discussed need for trekking pole on inclines/hiking to improve stability. [x] [] Education on tracking steps per day as measure of performance of activity in the home and/or community. Encouraged patient to track steps using fitness tracking watch. [] [] [] [] [] [] Education: HEP, blood pressure management and step/activity monitoring HEP: Single heel raises bilat; SLS and SLS with partial squat; continue with walking program; Assessment/Plan: Chief Complaint PT Initial Eval; PT Discharge; Force Production Deficit Patient is a 55 y.o. year old male referred to physical therapy with diagnosis of multiple sclerosis. He was referred for brace consultation for right foot drop. He openly stated that he was not interested in wearing a brace but may consider pre-nicole device that attached to ankle/shoe laces. He has a mild balance impairment (FGA) but he notes instability in the heat and when walking on inclines. Also reviewed cooling strategies and need for brace and trekking poles in higher risk environments. He stated he would consider this. While his scores on balance assessments indicate that he is not at risk for falling, he is more unsteady when fatigued or walking up inclines (and in the heat). He wascautioned to use bracing/trekking pole To address this. He does have right LE weakness t/o and would benefit from continued strengthening at gym and home as well as cardio ex and increased walking activity. The patient's chief complaint(s) includes the following: imbalance and weakness. Patient presents with the following impairments:decreased strength and decreased postural control and activity and participation limitations include: impaired walking stabilty. Outcome Measures: Date 03/28/21 5xSTS 8.06 sec Mc Balance Scale 54/56 10MWT 1.21 m/s (SS) 1.54 m/s (fast) No device 6MWT 1,500 ft No device ABC scale 85% CONSULTING TECHNICAL MANAGER-12 39/60 65% FGA 26/30 ??? 5xSTS: Norms for community dwelling adults 50-59 years is 7.1 seconds without upper extremity support.The patient completed assessment without upper extremity support. Therefore the patient scored about equal to age matched normative values. ? ? BBS: Cutoff scores for increased risk of falls among older adults is < 45/56 and a score of < 40/56 is almost 100% indicative of future falls. Norms for community dwelling older males aged 60-69 is 55/56.Therefore the patient scored about equal to age matched normative values. ??? 6MWT: Average gait endurance for adults aged 50-59 is 497 - 679 m (1630.6 - 2227.7 ft). Therefore the patient's score is about equal to scores of age- matched peers indicating about equal to average endurance. ? ? 10MWT: Based on comfortable gait speed, the patient ambulates at full community level (>0.8 m/s). The average gait speed for men age 50-59 is 1.43m/s. Therefore the patient scored worse than age matched normative values. ? ? FGA: For community dwelling older adults, a score of < 23/30 indicates an increased risk of falls and score of < 21/30 is predictive of unexplained falls in the next 6 months. The average score for community dwelling adults aged 50-59 is 28.4.The patient completed the FGA using no device.The highest score possible on the FGA when using an assistive device is 14/30. Therefore the patient scored worse than age matched normative values. ??? MFIS: Higher scores indicate greater impact of fatigue on a person's activities. The average score for individuals with multiple sclerosis is 33/84. Therefore the patient scored worse than peers. Movement System Diagnosis: Force Production Deficit - Good Prognosis: excellent Condition: [x] stable [] evolving [] unstable Comments: Level of complexity: low Patient consented to treatment and plan. Goals for PT were no set, as this was a 1x/only visit. Patient is d/c'd after this single visit, and he is agreeable to plan/discharge. Total time of session: 60 min Vanna Muñoz DPT documented in this encounter Plan of Treatment Not on file documented as of this encounter Visit Diagnoses Diagnosis Multiple sclerosis (HCC)- Primary Multiple sclerosis Abnormal MRI Other nonspecific (abnormal) findings on radiological and other examinations of body structure Vitamin D deficiency Abnormality of gait and mobility Neurogenic bladder disorder Neurogenic bladder, NOS Incontinence of feces with fecal urgency Right foot drop Other acquired deformity of ankle and foot documented in this encounter Orders Outpatient Referral Count Last Ordered Date Fir st Ordered Date AMB REFERRAL ORDER TO PHYSICAL THERAPY 1 documented in this encounter Care Teams Psychiatric Therapist Relationship Specialty Start Date End Date Mick Flowers MD PCP - General 05/14/17 documented as of this encounter
--- OUTSIDE RECORDS SUMMARY | 2024-06-29 00:30 | XMS_ITS | Encounter Summary ---
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 ??Testing performed by the [facility] Molecular Infectious Disease Laboratory. The 2019-Novel [...] July 29, 2020. First COVID-19 test? No [facility] Employeed in healthcare? Unknown [facility] Group care resident? No [facility] Hospitalized? Unknown [facility] Is patient in ICU? Unknown [facility] Symptomatic as defined by CDC? No [facility] Nasopharyngeal 06/09/2021 11 :02 AM DELIMBER OPERATOR 06/09/2021 5:13 PM DELIMBER OPERATOR [facility]ative [facility] - 06/10/2021 2:53 AM DELIMBER OPERATOR What is the reason for testing?->Screening prior to scheduled procedure or surgery (batch) Marquis Lopez MD LAB MICROBIOLOGY - GENERAL ORD ERABLES Final Result [facility] Department [place] [address] documented in this encounter Visit Diagnoses Diagnosis Pre-operative laboratory examination Pre-procedural laboratory examination documented in this encounter Care Teams Registered Nurse Step Down Relationship Specialty Start Date End Date Mick Flowers MD PCP - General 05/14/17 documented as of this encounter
--- OUTSIDE RECORDS SUMMARY | 2024-06-29 00:30 | XMS_ITS | Encounter Summary ---
Author Organization [facility] Address [address] [place] [address] Phone Care Team Providers Care Telegraph Inspector Name Role Phone Mick Flowers MD Primary Care Provider [phone] Encounter Details Date Type Department Care Team (Late st Contact Info) Description 08/13/2020 Telephone 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 Request was sent in to soon. Will start new case. DRAWER DRAWER documented in this encounter Plan of Treatment Not on file documented as of this encounter Visit Diagnoses Not on filedocumented in this encounter Additional Health Concerns Infection Onset Date Last Indicated Resolved Time COVID: Recovered Comment:Added based on recent COVID infection. 06/11/2020 06/11/2020 10/09/2020 3:06 AM C DT documented as of this encounter Care Teams Telegraph Inspector Relationship Specialty Start Date End Date Mick Flowers MD PCP - General 05/14/17 documented as of this encounter
--- OUTSIDE RECORDS SUMMARY | 2024-06-29 00:30 | XMS_ITS | Encounter Summary ---
Author Organization [facility] Healthcare Address [address] [place] [address] Care Team Providers Care Pediatric Occupational Therapist Name Role Phone Mick Flowers MD Primary Care Provider [phone] Encounter Details Date Type Department Care Team (Late st Contact Info) Description 06/21/2020 12:15 PM ONCOLOGY SPECIALIST - 06/21/2020 4:03 PM ONCOLOGY SPECIALIST Hospital Encounter [facility] Operating Room [address] [place] [id number] Marquis Kirby MD [address] [facility] [address] [place] [address] Discharge Disposition: Discharge to home or self care Social History Tobacco Use Types Packs/Day Years Used Date Smoking Tobacco: Never Smokeless Tobacco: Never Alcohol Use Standard Drinks/Week Comments Yes 0 (1 standard drink = 0.6 oz pur e alcohol) SOCIAL Sex and Gender Information Value Date Recorded Sex Assigned at Not on file Legal Sex Male 3:12 AM ONCOLOGY SPECIALIST Gender Identity Not on file Sexual Orientation Not on file 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 on file Not on file documented as of this encounter Last Filed Vital Signs Vital Sign Reading Time Taken Comments Blood Pressure 130/80 06/21/2020 3:30 PM ONCOLOGY SPECIALIST Pulse 59 06/21/2020 3:30 PM ONCOLOGY SPECIALIST Temperature 36.2 ??C (97.2 ??F) 06/21/2020 3:04 PM CS T Respiratory Rate 15 06/21/2020 3:30 PM ONCOLOGY SPECIALIST Oxygen Saturation 98% 06/21/2020 3:30 PM ONCOLOGY SPECIALIST Inhaled Oxygen Concentration - - Weight 81.6 kg (180 lb) 05/26/2020 3:50 PM ONCOLOGY SPECIALIST Height 177.8 cm (5' 10 ) 05/26/2020 3:50 PM ONCOLOGY SPECIALIST Body Mass Index 25.83 05/26/2020 3:50 PM ONCOLOGY SPECIALIST documented in this encounter Discharge Diagnoses Diagnosis Neuromuscular dysfunction of bladder, unspecified - NEUROMUSCULAR DYSFUNCTION OF BLADDER, UNSPECIFIED Urge incontinence - URGE INCONTINENCE Multiple sclerosis (HCC) - MULTIPLE SCLEROSIS Multiple sclerosis Anxiety disorder, unspecified - ANXIETY DISORDER, UNSPECIFIED Essential (primary) hypertension - ESSENTIAL (PRIMARY) HYPERTENSION Unspecified essential hypertension Hyperlipidemia, unspecified - HYPERLIPIDEMIA, UNSPECIFIED Other chronic pain - OTHER CHRONIC PAIN Atherosclerotic heart disease of [place] coronary artery without angina pectoris - ATHEROSCLEROTIC HEART DISEASE OF [place] CORONARY ARTERY WITHOUT ANGINA PECTORIS Family history of ischemic heart disease and other diseases of the circulatory system - FAMILY HISTORY OF ISCHEMIC HEART DISEASE AND OTHER DISEASES OF THE CIRCULATORY SYSTEM documented in this encounter Discharge Instructions * Discharge Instructions* Lexii Mcgill MD - 06/21/2020 2:31 PM ONCOLOGY SPECIALIST DISCHARGE INSTRUCTIONS Call your doctor if: * [...] Sunday, 8 AM to 5 PM, call [phone] and ask for a member of your doctor's team. - For emergencies after 5 PM during the week, on weekends and holidays, call [phone] and ask to have the Urology Operational Review Sergeant Physician paged for you. Diet: Return to [...] none Test results pending at discharge: None LOGY SPECIALIST documented in this encounter Medications at Time [...] Normal affect and mood, oriented x 3. LOGY SPECIALIST Source Note - Ami Guadalupe NP - 05/27/2020 2:17 PM ONCOLOGY SPECIALIST Images from the original note were not included. Center for Preoperative Assessment and Planning Preoperative Evaluation Record Evaluation type/location: TPAP from [facility] Planned procedure site: [facility] PVT OR (Pod 1) Date: 05/27/20 [...] negatives: CAD (denies, noted in history items); MS ; CABG ; systolic/diastolic dysfunction w/o CHF [...] COVID19 testing to be performed on 05/28. [facility] will contact patient to schedule testing, surgeon'soffice [...] instructions were provided in writing sent via Humans[employer]. Patient verbalized understanding ofpreoperative plan. Preoperative evaluation [...] last 720 hours. Romain index score: 95 LOGY SPECIALIST documented in this encounter Miscellaneous Notes * Op Note - Marquis Kirby MD - 06/21/2020 2:30 PM CST Date of Surgery: 06/21/2020 Preoperative diagnosis: Neurogenic bladder with detrusor overactivity and urge urinary incontinence Post-operative diagnosis: Neurogenic bladder with detrusor overactivity and urge urinary incontinence Procedure: Cystoscopy, injection of 300 units of onabotulinumtoxinA (Botox) into the bladder Surgeon: Marquis Kirby MD Mobile Application Development Lead: Lexii Mcgill MD Anesthesia: General Complications: None [...] units of Botox in 30 cc of injectablenormal saline, and we injected the Botox into the into the detrusor and submucosal area of the bladder in 0.5-1 cc aliquots. Botox was injected into the posterior bladder wall, the left and the rightlateral bladder wall as well as the trigone of the bladder sparing the ureteral orifices bilaterally. All the Botox was injected inside the bladder. At the conclusion of the case there was no bleeding inside the bladder. The bladder was then empty out. Counts at the conclusion of the case: Correct Presence Statement: I, Dr. Marquis Kirby, was present throughout the surgery. LOGY SPECIALIST LOGY SPECIALIST LOGY SPECIALIST * Brief Op Note - Marquis Kirby MD - 06/21/2020 2:30 PM CST Operative Progress Note Surgical Team: Surgeon(s) and Role: * Marquis Kirby MD - Primary * Lexii Mcgill MD - Resident - Assisting Anesthesiologist: Jeet Dent Sr., MD EMERGENCY CARE ATTENDANT: Rocío Tadeo CRNA Fitness And Wellness Manager: Gary Bernal RN Scrub: Taya Peterson RN [...] from the operating room was stable Juice Kirby, MD Date: 06/21/2020 Time: 2:39 PM TEACHING ATTESTATION : I was present and directly participated in the entire procedure (including opening and closing). LOGY SPECIALIST LOGY SPECIALIST * Pre-Procedure Instructions - Ami Guadalupe NP - 05/27/2020 2:14 PM ONCOLOGY SPECIALIST Center for Preoperative Assessment and Planning CPAP Clinic Location: [facility] The night before your surgery: [...] bowel prep or special diet before surgery LOGY SPECIALIST * Perioperative Nursing Note - Alexander Harris RN - 05/26/2020 3:57 PM ONCOLOGY SPECIALIST Center for Preoperative Assessment and Planning Perioperative Nursing Note Telephone Preoperative Evaluation ([facility]) - TELEPHONE ONLY, NO PHYSICAL EXAM [...] has advance directive, copy not in chart Communication/Alarm Installation Technician Needs Communication Needs: None Assistive Devices/DME: Contacts, Eyeglasses Discharge Planning Type of Residence: Private residence Living Arrangements: Spouse/significant other Support Systems: Spouse/significant other Assistance Needed: WILL BE RETENTION MANAGER AND HELPER Patient expects to be discharged [...] in a congregate living facility (ex. assisted living/prison facility, snf, intermediate)?: No Have you tested positive for COVID-19 [...] 20 seconds. Use an alcohol- based hand licensed staff mft that contains at least 60% alcohol if soap and water are not available. ADDITIONAL COMMENTS/ FOLLOW UP LOGY SPECIALIST * Pre-Procedure Instructions - Alexander Harris RN - 05/26/2020 3:46 PM ONCOLOGY SPECIALIST PRE-SURGICAL INSTRUCTIONS ??? General Information ?? Surgery [...] insurance card, a photo ID (like a Dowel Sticker Operator's license) and a method of payment for [...] COVID Test Request Placed in Epic to [facility]. Test to be performed on 05/28/20 [place] If you have COVID testing or should have COVID testing for your surgery/procedure, please read below section: If you need to reschedule your COVID test to a different location or if your surgery gets rescheduled, you MUST call [phone] Sunday-Sunday 8am-4:30pm to get your COVID testing rescheduled or your lab order will not be available at Testing Sites. COVID Testing is only valid for up to 96 hours prior to surgery date, unless otherwise specified. If you are unable to reach staff at the above phone number, please call the CPAP Staff at [phone]. This number cannot order a lab test, [...] 20 seconds. Use an alcohol- based hand licensed staff mft that contains at least 60% alcohol if soap and water are not available. ALL Patients should read below section: All visitors/patients are being asked to wear a clean mask when entering the hospital. COVID 19 Updates & Visitor Policy: Please access [email or web address] for the most updated information. ??? [facility], if your surgeon's office has not notified you of your surgery time by NOON THE BUSINESS DAY BEFORE your surgery, please call [phone] and ask for your surgeon's office DR KIRBY LOGY SPECIALIST documented in this encounter Plan of Treatment Not on file documented as of this encounter Procedures Procedure Name Priority Date/Time Associated Diagnosis Comments CYSTOSCOPY 06/21/2020 2:26 PM ONCOLOGY SPECIALIST Neurogenic bladder Special Needs 300 UNITS OF BOTOX TO BE MIXED WITH 30 CC NORMAL SALINE IN OR; CHERELLE NEEDLE FOR INJECTION INJECTION BOTOX 06/21/2020 2:26 PM ONCOLOGY SPECIALIST Neurogenic bladder Special Needs 300 UNITS OF [...] 1430, Pre-Op New Bag 06/21/2020 2:29 PM ONCOLOGY SPECIALIST New Bag 06/21/2020 2:07 PM ONCOLOGY SPECIALIST 30 mL/hr 30 mL/hr meperidine (DEMEROL) preservative [...] over 30 seconds., Indications: Opioid ToxicityIndications:Opioid Toxicity sodium chloride 0.9% flush 0.5-20 mL 0.5-20 mL, intra-catheter, As needed, line care, Starting on Sun06/21/20 at 1347, Pre-Op, Flush volume based on line type and size. Flush before and after each use. documented in this encounter Active and Recently Administered Medications Times are shown in ONCOLOGY SPECIALIST. Scheduled Medication Order 06/19/2020 06/20/2020 06/21/2020 ceFAZolin [...] water irrigation (CANCELED) As needed, Starting on Sun06/21/20 at 1458, Intra-Op 1458 (Given - Provid [...] 0.4 mg/mL injection 0.04-0.4 mg 1 06/21/2020 onabotulinumtoxin A (botulin um toxin type A, BOTOX) 200 unit/20 mL in sodium chloride 0.9% 1 06/21/2020 sodium chloride 0.9 % irrigation 1 06/21/20 20 sodium chloride 0.9% flush 0.5-20 mL 1 05/26 sterile water irrigation 1 06/21/2020 documented in this encounter Additional Health Concerns Infection Onset Date Last Indicated Resolved Time COVID: Recovered Comment:Added based on recent COVID infection. 06/11/2020 06/11/2020 10/09/2020 3:06 AM C DT documented as of this encounter Care Teams Pediatric Occupational Therapist Relationship Specialty Start Date End Date Mick Flowers MD PCP - General 05/14/17 documented as of this encounter
--- OUTSIDE RECORDS SUMMARY | 2024-06-29 00:30 | XMS_ITS | Encounter Summary ---
Author Organization [facility] Address [address] [place] [address] Phone Care Team Providers Care Carpenter'S Assistant Name Role Phone Mick Flowers MD Primary Care Provider [phone] Encounter Details Date Type Department Care Team (Late st Contact Info) Description 06/07/2020 Telephone [facility] ([facility] - [facility] Urology [address] [place] [address] [place] [address] Daylin Rodriguez Social History Tobacco Use Types Packs/Day Years Used Date Smoking Tobacco: Never Smokeless Tobacco: Never Alcohol Use Standard Drinks/Week Comments Yes 0 (1 standard drink = 0.6 oz pur e alcohol) SOCIAL Sex and Gender Information Value Date Recorded Sex Assigned at Not on file Legal Sex Male 3:12 AM WILDLIFE SCIENCE PROFESSOR Gender Identity Not on file Sexual Orientation Not on file 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 on file Not on file documented as of this encounter Miscellaneous Notes * Telephone Encounter - Daylin Rodriguez - 06/07/2020 11:00 AM CST PT called - please call him back to kedar Wong LIFE SCIENCE PROFESSOR documented in this encounter Plan of Treatment Not on file documented as of this encounter Visit Diagnoses Not on filedocumented in this encounter Additional Health Concerns Infection Onset Date Last Indicated Resolved Time COVID19 05/28/2020 05/28/2020 06/11/2020 3:07 AM WILDLIFE SCIENCE PROFESSOR documented as of this encounter Care Teams Carpenter'S Assistant Relationship Specialty Start Date End Date Mick Flowers MD PCP - General 05/14/17 documented as of this encounter
--- OUTSIDE RECORDS SUMMARY | 2024-06-29 00:30 | XMS_ITS | Encounter Summary ---
Author Organization [facility] Healthcare Address [address] [place] [address] Care Team Providers Care Assembler [employer] Name Role Phone Mick Flowers MD Primary Care Provider [phone] Encounter Details Date Type Department Care Team (Late st Contact Info) Description 06/13/2021 5:38 AM VOICE OVER ARTIST - 06/13/2021 9:03 AM VOICE OVER ARTIST Hospital Encounter [facility] Operating Room [address] [place] [id number] Marquis Lopez MD [address] [facility] [address] [place] [address] Discharge Disposition: Discharge to home or self [...] on file Legal Sex Male 3:12 AM VOICE OVER ARTIST Gender Identity Not on file Sexual Orientation Not on file 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 on file Not on file documented as of this encounter Last Filed Vital Signs Vital Sign Reading Time Taken Comments Blood Pressure 137/98 06/13/2021 8:40 AM VOICE OVER ARTIST Pulse 67 06/13/2021 8:50 AM VOICE OVER ARTIST Temperature 36.4 ??C (97.5 ??F) 06/13/2021 8:50 AM CS T Respiratory Rate 14 06/13/2021 8:50 AM VOICE OVER ARTIST Oxygen Saturation 98% 06/13/2021 8:50 AM VOICE OVER ARTIST Inhaled Oxygen Concentration - - Weight 81.6 kg (180 lb) 06/13/2021 6:31 AM VOICE OVER ARTIST Height 177.8 cm (5' 10 ) 06/13/2021 6:31 AM VOICE OVER ARTIST Body Mass Index 25.83 06/13/2021 6:31 AM VOICE OVER ARTIST documented in this encounter Discharge Diagnoses Diagnosis Neuromuscular dysfunction of bladder, unspecified - NEUROMUSCULAR DYSFUNCTION OF BLADDER, UNSPECIFIED Overactive bladder - OVERACTIVE BLADDER Hypertonicity of bladder Multiple sclerosis (HCC) - MULTIPLE SCLEROSIS Multiple sclerosis Atherosclerotic heart disease of [place] coronary artery without angina pectoris - ATHEROSCLEROTIC HEART DISEASE OF [place] CORONARY ARTERY WITHOUT ANGINA PECTORIS Essential (primary) hypertension - ESSENTIAL (PRIMARY) HYPERTENSION Unspecified essential hypertension Anxiety disorder, unspecified - ANXIETY DISORDER, UNSPECIFIED Hyperlipidemia, unspecified - HYPERLIPIDEMIA, UNSPECIFIED Other chronic pain - OTHER CHRONIC PAIN [facility] (current) use of aspirin - PENITENTIARY (CURRENT) USE OF ASPIRIN 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 - Docusate/miralax as needed for constipation, available over the counter Diet: [place] diet: At first eat a bland diet; [...] unless otherwise specified by your doctor. - As you recover, your pain will decrease and you will need less pain medication. You should only take pain medication if you are in pain. - If you are no longer taking any of your opioid medication and have leftover pills, dispose of them by placing them in a plastic bag, adding dish soap, and throwing them in the trash. Follow up: Follow up with your urologist as scheduled. To schedule an appointment, or if you have any questions or concerns, please call the urology office at . Future Appointments Date Time Provider Department Center 09/20/2021 1:00 PM Cherry Minor MD [facility] Contact your doctor if: - You have [...] Sunday 8 AM to 5:00 PM: call [phone] and ask for a member of your doctor's team. For urgent matters after 5:00 PM during the week, or on weekends or holidays, call [phone] and ask to have the Urology Phone Counselor Physician paged for you. E OVER ARTIST * Attachments The following attachments cannot be sent through Care Everywhere. * Cystoscopy (Discharge Care) ([place]) * [facility] PATHWAY TO EXCELLENT CARE AFTER SURGERY documented in this encounter Medications at Time [...] mg by mouth nightly 2 atorvastatin (LIPITOR) 20 mg tabletIndication s:hyperlipidemia Take [...] documented in this encounter H&P Notes * Donna Keys MD - 06/13/2021 7:08 AM CST I have reviewed the H&P, examined the patient, and endorse the findings as written. Appears healthy Non labored breathing Abdomen soft, non distended, appropriately tender. Plan of Care : Based on the above findings, I consider Doc A Yuly to be an acceptable risk for : Procedure(s): INJECTION BOTOX 300 UNITS CYSTOSCOPY Cosigned by Marquis Lopez MD at 06/13/2021 7:21 AM VOICE OVER ARTIST E OVER ARTIST E OVER ARTIST Associated attestation - Marquis Lopez MD - 06/13/2021 7:21 AM VOICE OVER ARTIST Source Note - Hector Moser MD - 06/08/2021 9:28 AM VOICE OVER ARTIST Images from the original note were not included. [facility] for Preoperative Assessment and Planning Preoperative Evaluation Record Evaluation type/location: TPAP from [facility] Planned procedure site: [facility] PVT OR (Pod 1) Date: 06/08/21 NOTE: [...] instructions were provided in writing sent via CMP.LYS mail. Patient verbalized understanding of preoperative plan. Patient's COVID19 status is: Unexposed. The patient currently has no concerning symptoms of COVID19. . Patient's COVID-19 vaccination status is Fully vaccinated. Documentation of vaccination status is available in the [employer] Immunization tab. . Plan for pre-procedure COVID19 testing: Telephone assessment performed. Request placed for pre-procedure COVID19 testing to be performed on 06/09/21. [facility] will place the order for testing. Result [...] in place. Please call the CPAP attending ([phone]) with any questions. TPAP assessment complete. Preoperative [...] 10 mg capsule Past Week -- -- Bettie Batres MD POTASSIUM CHLORIDE [...] Medication protocol when under care of a DIGITAL STRATEGIST SENIOR MANAGER Planned anesthesia: MAC Induction: Induction: intravenous. Postoperative Plan: Patient's planned disposition post procedure is Floor. Informed Consent: Discussed plan with DIGITAL STRATEGIST SENIOR MANAGER. Anesthesia plan and risks discussed with patient. [...] and agree to proceed. All questions answered. E OVER ARTIST E OVER ARTIST documented in this encounter Miscellaneous Notes * Perioperative Nursing Note - Shin Silva RN - 06/13/2021 9:00 AM CST Requested per urology for patient to void any amount prior to discharge. Not passed along that the patient has been straight cathing himself for 30 years. Patient straight cathed himself prior to discharge. E OVER ARTIST * Op Note - Marquis Lopez MD - 06/13/2021 7:30 AM CST Date of Surgery: 06/13/2021 Preoperative diagnosis: neurogenic bladder with detrusor overactivity Post-operative diagnosis: neurogenic bladder with detrusor overactivity Procedure: Cystoscopy, injection of 300 units of onabotulinumtoxinA (Botox) into the bladder Surgeon: Marquis Lopez MD Business Relationship Manager: Donna Burrell MD; Adore Garcia MD Anesthesia: General Complications: None Estimated blood [...] Marquis Lopez, was present throughout the surgery. E OVER ARTIST * Brief Op Note - Marquis Lopez MD - 06/13/2021 7:30 AM CST Operative Progress Note Surgical Team: Surgeon(s) and Role: * Marquis Lopez MD - Primary * Donna Keysai, MD - Resident - Assisting Anesthesiologist: Hector Moser MD DIGITAL STRATEGIST SENIOR MANAGER: Sonya Solorzano CRNA Car Sweeper: Vanita Garcia RN Scrub: Shantel Weaver RN DATE OF SURGERY : 06/13/2021 Preoperative Diagnosis: Pre-op Diagnosis * Neurogenic bladder [N31.9] * OAB (overactive bladder) [N32.81] Postoperative Diagnosis: Post-op Diagnosis * Neurogenic bladder [N31.9] * OAB (overactive bladder) [N32.81] Procedure(s): Procedure(s) (LRB): INJECTION BOTOX 300 UNITS (N/A) CYSTOSCOPY (N/A) Operative Findings: Normal bladder mucosa Estimated Blood Loss: No blood loss documented. Intraoperative Fluids: See Anesthesia record for mls Specimens: No specimen collected in procedure Implants: Nothing was implanted during the procedure Blood/Blood Products Transfused: 0 mls Complications: None Condition on Discharge from the operating room was stable Juice Lopez MD Date: 06/13/2021 Time: 7:52 AM TEACHING ATTESTATION : I was present and directly participated in the entire procedure (including opening and closing). E OVER ARTIST * Perioperative Nursing Note - Rizwan Bagley RN - 06/07/2021 5:41 PM VOICE OVER ARTIST [facility] for Preoperative Assessment and Planning Perioperative Nursing Note Telephone Preoperative Evaluation (BJ) - TELEPHONE ONLY, NO PHYSICAL EXAM Date: 06/07/21 Vitals: 06/07/21 1725 Weight: 79.4 kg (175 lb) Height: 177.8 [...] when you are drinking?: 1 or 2 How often do you have six or more drinks on one occasion?: Never Outpatient Medications Marked as Taking for the 06/13/21 encounter (Hospital Encounter) Medication Sig Dispense Refill ??? ALPRAZolam (XANAX) 0.25 mg tablet Take 0.25 mg by mouth nightly as needed for sleep 1 ??? aspirin 81 mg enteric coated tablet Take 81 mg by mouth nightly ??? atorvastatin (LIPITOR) 20 mg tablet Take 20 mg by mouth every morning ??? cholecalciferol (VITAMIN D-3) 1,000 unit Take 1,000 Units by mouth every morning ??? famotidine (PEPCID) 10 mg tablet Take 10 mg by mouth as needed ??? felodipine (PLENDIL) 5 mg 24 hr tablet Take 5 mg by mouth every morning ??? hydroCHLOROthiazide (HYDRODIURIL) 25 mg tablet Take 25 mg by mouth every morning ??? losartan (COZAAR) 100 mg tablet Take 100 mg by mouth every morning ??? omeprazole (PriLOSEC) 10 mg capsule Take 10 mg by mouth as needed ??? POTASSIUM CHLORIDE ER 20 mEq CR tablet Take 20 mEq by mouth every morning 5 ??? urea (CARMOL) 40 % cream Apply 1 application topically every morning ??? [DISCONTINUED] omeprazole OTC (PriLOSEC OTC) 20 mg EC tablet Take 20 mg by mouth daily Implants No active implants to display in this view. SKIN Piercings Remaining: No Wound (LDAs) Type of Wound (LDA): (denies) SCREENINGS Romain index score: 100 NUTRITION PATIENT CARE PLANNING Advance Directives (For Healthcare) Advance Directive: Patient has advance directive, copy not in chart Communication/[employer] Consultant Needs Communication Needs: Glasses Patient's Preferred Language: [place] Assistive Devices/DME: Eyeglasses Discharge Planning Type of Residence: Private residence Living Arrangements: Family members Support Systems: Family members Patient expects to be discharged to:: Private [...] in a congregate living facility (ex. assisted living/long-term facility, nursing home, group home)?: No Have you tested positive [...] 20 seconds. Use an alcohol- based hand bonding molder that contains at least 60% alcohol if soap and water are not available. ADDITIONAL COMMENTS/ FOLLOW UP E OVER ARTIST * Pre-Procedure Instructions - Rizwan Bagley RN - 06/07/2021 5:32 PM VOICE OVER ARTIST [facility]ENTER FOR PREOPERATIVE ASSESSMENT AND PLANNING (CPAP) [...] your insurance card, a photo ID (example: Floor Worker [place]'s License) and a method of payment for [...] copy is already in your Epic Chart. How To Prepare Your Skin For Surgery Below is the Pre-Surgical Bathing Protocol you should follow for your surgery. If your surgeon provides you different bathing instructions, please follow your surgeon's orders. 2 Day CHG Bathing Protocol (no nasal ointment) PREVENTING INFECTION (DECOLONIZATION): Decolonization is the use of a topical antiseptic soap and sometimes a nasal ointment to remove bacteria (germs) from the skin's surface. Antiseptic soap: Chlorhexidine gluconate or CHG (brand name: Hibiclens??) ??? Before surgery, your entire body must be thoroughly cleaned. CHG helps to reduce the bacteria on your skin. ??? You may be given one or more bottles of CHG or you may be asked to obtain from your preferred pharmacy. Be sure to ask your pharmacist if you need help finding this product. SHOWERING WITH ANTISEPTIC SOAP (CHG) What You Need For Each Shower ??? 60 mL (?? cup) of CHG ??? 2 clean washcloths CHG Bathing Instructions 1. First, shampoo and rinse your hair with your own shampoo (no conditioners). Do this so the antiseptic soap isn't washed off by your shampoo. 2. Wash face with warm water. 3. Turn off shower and stand away from the water. 4. Use 2 clean washcloths to apply the antiseptic soap to all areas as described below: Pour 30 mL (1/8 cup) of CHG on washcloth #1: Using washcloth- start at jawline and firmly massage the soap into the skin in a circular motion to clean neck, shoulders, chest, back, both armpits, arms, hands and abdomen. Finish with legs and feet. Pour 30 mL (1/8 cup) of CHG on washcloth #2: Using washcloth- firmly massage the soap into the skinin a circular motion to clean groin area, perineum and buttocks. (Do not use CHG on genital area.) Mccabe Points: ??? The CHG antiseptic soap will not bubble or lather very much. ??? If you get soap in your eyes, ears or mouth, rinse well with cool water. ??? When finished, leave the soap on your skin for 2 minutes before rinsing. ??? Dry off with a clean fresh towel. ??? Wear clean clothes or pajamas to sleep in. ??? After showering DO NOT put on deodorant, hair products or conditioners, lotions or creams, powders, Vaseline or any non-essential products. ??? If you cannot reach the surgical site, such as the back, please have someone help you. Shaving: ??? You may shave your face, legs and underarms during your evening shower before you apply the CHGantiseptic soap. Be careful not to cut or anabel your skin. ??? Avoid shaving on the day of surgery. Deodorant: ??? Patients following the 5-Day CHG protocol may apply deodorant on the days leading up to surgery, being sure, however, to avoid use on the evening before and day of surgery. All other products should be avoided for the full 5 days. 2-Day CHG Bathing Protocol The Evening Before Surgery: Take a shower with Antiseptic soap (CHG). Follow the steps for ???Showering with Antiseptic Soap (CHG)?? above. ??? Change all linens on your bed so you are sleeping in clean fresh sheets and pillowcases. ??? Remove nail coverings, artificial nails and nail ivorian. The Morning of Surgery: Take a shower with Antiseptic soap (CHG). Follow the steps for ???Showering with Antiseptic Soap (CHG)?? above. ??? Put clean clothes on after you shower. COVID TESTING PLAN: Please note, the below is the Pre-Procedure COVID Testing Plan for the Center for Preoperative Assessment & Planning for Anesthesia. Surgeon's offices may require additional testing. If so, the surgeon's office will reach out to the patient to discuss further testing. Patient's COVID-19 vaccination status: Patient states that they are fully COVID vaccinated and COVID vaccination information verified through [facility] Immunization Registry Database. COVID Test Plan: COVID Test Request Placed in Epic to [facility]. HOLIDAY hours may vary at testing site. Test aydee performed on 06/09/21 at [place] ([facility] [place] [address], M-F 8:30a-4:30p, Sat/Sun 8a-12:30p, Call once on [phone]. If you are going to a [facility] Testing Site for COVID testing, please arrive at least 30 minutes PRIOR to lab closing time. If you have COVID testing or should have COVID testing for your surgery/procedure, please read below section: If you need to reschedule your COVID test to a different location or if your surgery gets rescheduled, you MUST call [phone] Sunday-Sunday 8am-4:30pm to get your COVID testing rescheduled or your lab order will not be available at Testing Sites. COVID Testing is only valid for up to 96 hours prior to surgery date, unless otherwise specified. If you are unable to reach staff at the above phone number, please call the CPAP Staff at [phone]. This number cannot order a lab test, but can attempt to contact the above number/staff to assist you. CPAP Staff are available Sunday- Sunday 8am-5pm. We recommend you Self-Isolate after COVID Testing: Stay at home, if possible, until your surgery date. Maintain a 6-foot distance from other people (social distancing) and wear a face mask if you areable. Avoid touching your eyes, nose and mouth with unwashed hands. Wash your hands often with soapand water for at least 20 seconds. Use an alcohol-based hand bonding molder that contains at least 60% alcohol if soap and water are not available. These are general guidelines, but if have been told by aphysician that you should not perform any of the above, please follow physician's guidelines. All patients should read below section: All visitors/patients are being asked to wear a clean face mask when entering the hospital. COVID 19 Updates & Visitor Policy: Please access [email or web address] for the most updated information. Information on [facility]: Please view [email or web address] (Patient & Visitor Information) for additional details regarding Advanced Directive forms, AWARE, directions, parking information, lodging, Internet access, dining and more. Information on [facility]: Please view [email or web address] (Patient and Visitor Information) for parking/directions and more. For MyChart information, to activate account or password recovery, please go to [email or web address] or call [phone] (toll-free: [phone]). Information for Suicide Prevention: National Suicide Prevention Lifeline (1-786- 835-MTLN (8233)). Surgery Times: For patients having surgery @ [facility] or [facility], if your surgeon's office has not notified you of your surgery time by NOON THE BUSINESS DAY BEFORE your surgery, please call [phone] and ask for your surgeon'soffice Dr Lopez. E OVER ARTIST documented in this encounter Plan of Treatment Not on file documented as of this encounter Procedures Procedure Name Priority Date/Time Associated Diagnosis Comments CYSTOSCOPY 06/13/2021 7:31 AM VOICE OVER ARTIST Neurogenic bladder OAB (overactive bladder) Special Needs 300 UNITS OF BOTOX TO BE MIXED WITH 30 CC NORMAL SALINE IN OR; CHERELLE NEEDLE FOR INJECTION INJECTION BOTOX 06/13/2021 7:31 AM VOICE OVER ARTIST Neurogenic bladder OAB (overactive bladder) Special Needs 300 UNITS OF BOTOX TO BE MIXED WITH 30 CC NORMAL SALINE IN OR; CHERELLE NEEDLE FOR INJECTION documented in this encounter Visit Diagnoses Diagnosis Neurogenic bladder disorder Neurogenic bladder, NOS OAB (overactive bladder) documented in this encounter Admitting Diagnoses Diagnosis Neurogenic bladder disorder Neurogenic bladder, NOS OAB (overactive bladder) documented in this encounter Administered Medications Inactive Administered Medications - up to 3 most recent administrations Medication Order MAR Action Action Date Dose Rate Site acetaminophen (TYLENOL) tablet 1,000 mg 1,000 mg, oral, Once, On Sun06/13/21 at 0630, For 1 dose, Pre-Op, Indications: Pre-Emptive AnalgesiaIndications:Pre- Emptive Analgesia Given 06/13/2021 6:42 AM VOICE OVER ARTIST 1,000 mg Lactated Ringer's (LR) infusion 30 mL/hr, intravenous, Continuous, Starting on Sun06/13/21 at 0630, Pre-Op Lactated Ringer's (LR) infusion 30 mL/hr, intravenous, Continuous, Starting on Sun06/13/21 at 0630, Pre-Op Rate/Dose Verify 06/13/2021 7:28 AM VOICE OVER ARTIST 30 mL/hr New Bag 06/13/2021 6:28 AM VOICE OVER ARTIST 30 mL/hr 30 mL/hr sodium chloride 0.9% flush 0.5-20 mL 0.5-20 mL, intra-catheter, As needed, line care, Starting on Sun06/13/21 at 0554, Pre-Op, Flush volume based on line type and size. Flush before and after each use. documented in this encounter Discontinued Medications Medication Sig Discontinue Reason Start Date End Da te Ampyra 10 mg tablet extended release 12 hrIndications:Multiple sclerosis (HCC),Abnormality of gait and mobility Take 1 tablet (10 mg total) by mouth every 12 (twelve) hours Error 04/05/2021 06/07/2021 omeprazole OTC (PriLOSEC OTC) 20 mg EC tablet Take 20 mg by mouth daily Error 11/23/2020 06/07/2021 phenazopyridine (PYRIDIUM) 100 mg tablet Take 1 tablet (100 mg total) by mouth 3 (three) times a day as needed for urinary pain Error 12/13/2020 06/07/2021 omeprazole (PriLOSEC) 10 mg capsuleIndications:Treat ment of Non-Bleeding Gastric Disorder Take 10 mg by mouth as needed Therapy completed 06/13/2021 documented as of this encounter Historical Medications * This list may reflect changes made after this encounter. aspirin 81 mg enteric coated tabletIndication s:prevention of thrombosis Take 81 mg by mouth nightly 2 urea (CARMOL) 40 % creamIndications :Hyperkeratosis Apply 1 application topically every morning 08/05/2020 3 omeprazole OTC (PriLOSEC OTC) 20 mg EC tablet Take 20 mg by mouth daily 11/23/2020 1 added in this encounter Active and Recently Administered Medications Times are shown in VOICE OVER ARTIST. Scheduled Medication Order 06/11/2021 06/12/2021 06/13/2021 acetaminophen (TYLENOL) tablet 1,000 mg (COMPLETED) 1,000 mg, oral, Once, On Sun06/13/21 at 0630, For 1 dose, Pre-Op, Indications: Pre-Emptive Analgesia 0642 (Given - Provid er: Kacie Durham) ceFAZolin (ANCEF) 2,000 mg/20 mL in sterile water (premix) 2,000 mg 2,000 mg, intravenous, at 400 mL/hr, Administer over 3 Minutes, Once, On Sun06/13/21 at 0630, For 1 dose, Pre-Op, Administer within 60 minutes of incision., Indications: Prophylaxis, Surgical 0630 (Due) sodium chloride 0.9% flush 0.5-20 mL 0.5-20 mL, intra-catheter, Every 8 hours scheduled, First dose on Sun06/13/21 at 0630, Pre-Op, Flush volume based on line type and size. 0630 (Due) Continuous Medication Order 06/11/2021 06/12/2021 06/13/2021 Lactated Ringer's (LR) infusion 30 mL/hr, intravenous, Continuous, Starting on Sun06/13/21 at 0630, Pre-Op 0630 (Due) Lactated Ringer's (LR) infusion 30 mL/hr, intravenous, Continuous, Starting on Sun06/13/21 at 0630, Pre-Op 0628 (New Bag - Prov ider: Kacie Durham)0728 (Rate/Dose Verify - Provider: Sonya Solorzano CRNA)0802 (Anesthesia Volume Adjustment - Provider: Sonya Solorzano CRNA) PRN Medication Order 06/11/2021 06/12/2021 06/13/2021 onabotulinumtoxin A (botulinum toxin type A, BOTOX) 200 unit/20 mL in sodium chloride 0.9% (CANCELED) As needed, Starting on Sun06/13/21 at 0750, Intra-Op 0750 (Given - Provid er: Donna Burrell MD - Comment: 300 units/30ML in NS) sodium chloride 0.9% flush 0.5-20 mL 0.5-20 mL, intra-catheter, As needed, line care, Starting on Sun06/13/21 at 0554, Pre-Op, Flush volume based on line type and size. Flush before and after each use. sodium chloride 0.9% flush 0.5-20 mL 0.5-20 mL, intra-catheter, As needed, line care, Starting on Sun06/13/21 at 0554, Pre-Op, Flush volume based on line type and size. Flush before and after each use. sodium chloride 0.9% irrigation (CANCELED) As needed, Starting on Sun06/13/21 at 0740, Intra-Op 0740 (Given - Provid er: Donna Burrell MD)0745 (Given - Provider: Donna Burrell MD - Comment: irrigation on sterile field) documented in this encounter Orders Medications Ordered That Julio Cesar ht Not Have Been Administered Count Last Ordered Date First Ordered Date ceFAZolin (ANCEF) 2,000 mg/2 0 mL in sterile water (premix) 2,000 mg 1 06/13/2021 Lactated Ringer's (LR) infusion 1 1 onabotulinumtoxin A (botulin um toxin type A, BOTOX) 200 unit/20 mL in sodium chloride 0.9% 1 06/13/2021 sodium chloride 0.9% flush 0.5-20 mL 3 05/26 sodium chloride 0.9% irrigation 1 1 documented in this encounter Care Teams Assembler [employer]ches And Springs Relationship Specialty Start Date End Date Mick Flowers MD PCP - General 05/14/17 documented as of this encounter
--- OUTSIDE RECORDS SUMMARY | 2024-06-29 00:30 | XMS_ITS | Encounter Summary ---
Author Organization [facility] Address [address] [place] [address] Phone Care Team Providers Care Day Trader Name Role Phone Mick Flowers MD Primary Care Provider Encounter Details Date Type Department Care Team (Late st Contact Info) Description 03/22/2021 Orders Only [facility] [address] [facility] Medical Office Building [address] [place] [address] Marquis Lopez MD [address] [facility] [address] [place] [address] OAB (overactive bladder) (Primary Dx); Neurogenic bladder Social History Tobacco [...] on file Legal Sex Male 3:12 AM RESEARCH NURSE Gender Identity Not on file Sexual Orientation Not on file 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 Final ??Specimen Source: ?? Urine, catheter ??Specimen Quality: ??Adequate ??Result: ?Growth of mixed padmini was isolated, suggesting ? probable contamination. No further testing will ? be performed. If clinically indicated, ? recollection using a method to minimize ? contamination, with prompt transfer to Urine ? Culture Transport Tube, is recommended. Urine, in and out catheter 05/31/2021 10:03 AM RESEARCH NURSE 05/31/2021 10:04 AM RESEARCH NURSE us Marquis Lopez MD LAB MICROBIOLOGY - GENERAL ORD ERABLES Final Result [facility] [address] [place] [address] documented in this encounter Visit Diagnoses Diagnosis OAB (overactive bladder)- Primary Neurogenic bladder Neurogenic bladder, NOS documented in this encounter Care Teams Day Trader Relationship Specialty Start Date End Date Mick Flowers MD PCP - General 05/14/17 documented as of this encounter
--- OUTSIDE RECORDS SUMMARY | 2024-06-29 00:30 | XMS_ITS | Encounter Summary ---
Author Organization [facility] Address [address] [place] [address] Care Team Providers Care Fire Sprinkler Apparatus Inspector Name Role Phone Mick Flowers MD Primary Care Provider [phone] Encounter Details Date Type Department Care Team (Late st Contact Info) Description 06/13/2021 7:30 AM SENIOR REPORT DEVELOPER - 06/13/2021 8:35 AM [facility] Surgery [facility] Operating Room [address] [place] [id number] Marquis Lopez MD [address] [facility] [address] [place] [address] INJECTION BOTOX 300 UNITS Surgery Details Date/Time Status Location OR Service Patient Class Case Cl ass Case Type Trauma Case? 06/13/2021 7:30 AM Posted [facility] OR POD 1 323 Urology Outpatient Elective Panel 1 Procedure LRB Anes Op Region Wound Class Comments INJECTION BOTOX 300 UNITS N/A General Bladder Class II - Clean Contaminated CYSTOSCOPY N/A General Urethra Class II - [place] an Contaminated Surgeon Surgeon Role Service Panel Marquis Lopez MD Primary Urology 1 Donna Keys MD Resident - Assisting Urology 1 Shanta Garcia MD Resident - Assisting Minor Procedu res 1 Special Needs 300 UNITS OF BOTOX [...] file Legal Sex Male 3:12 AM SENIOR REPORT DEVELOPER Gender Identity Not on file Sexual Orientation Not on file 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 on file Not on file documented as of this encounter Last Filed Vital Signs Vital Sign Reading Time Taken Comments Blood Pressure 140/89 06/13/2021 8:30 AM SENIOR REPORT DEVELOPER Pulse 78 06/13/2021 8:30 AM SENIOR REPORT DEVELOPER Temperature 35.6 ??C (96.08 ??F) 06/13/2021 8:[address] Respiratory Rate 17 06/13/2021 8:30 AM SENIOR REPORT DEVELOPER Oxygen Saturation 96% 06/13/2021 8:30 AM SENIOR REPORT DEVELOPER Inhaled Oxygen Concentration - - Weight 81.6 kg (180 lb) 06/13/2021 6:31 AM SENIOR REPORT DEVELOPER Height 177.8 cm (5' 10 ) 06/13/2021 6:31 AM SENIOR REPORT DEVELOPER Body Mass Index 25.83 06/13/2021 6:31 AM SENIOR REPORT DEVELOPER documented in this encounter Discharge Instructions * Discharge Instructions* Claire Burrell, Donna Cheng MD - 06/13/2021 7:38 AM SENIOR REPORT DEVELOPER Discharge Instructions: Surgery performed: Cystoscopy, botox injection New medications: - Acetaminophen and ibuprofen as needed for pain, available [id number]; take this medication scheduled for the next 24-48 hours, then afterwards as needed. - Docusate/miralax as needed for constipation, available over the counter Diet: [place] diet: At first eat a bland diet; [...] 09/20/2021 1:00 PM Cherry Minor MD [place] [facility] Contact your doctor if: - You [...] Sunday 8 AM to 5:00 PM: call [phone] and ask for a member of your doctor's team. For urgent matters after 5:00 PM during the week, or on weekends or holidays, call [phone] and ask to have the Urology Pole Incisor Operator Physician paged for you. OR REPORT DEVELOPER * Attachments The following attachments cannot be sent through Care Everywhere. * Cystoscopy (Discharge Care) (Panamanian) * [facility] PATHWAY TO EXCELLENT CARE AFTER SURGERY documented [...] Marquis Lopez MD at 06/13/2021 7:21 AM SENIOR REPORT DEVELOPER OR REPORT DEVELOPER OR REPORT DEVELOPER Associated attestation - Marquis Lopez MD - 06/13/2021 7:21 AM SENIOR REPORT DEVELOPER Source Note - Hector Moser MD - 06/08/2021 9:28 AM SENIOR REPORT DEVELOPER Images from the original note were not included. [facility] Preoperative Evaluation Record Evaluation type/location: TPAP from [facility] Planned procedure site: [facility] PVT OR (Pod 1) Date: 06/08/21 [...] negatives: CAD (denies, noted in history items); [place] ; CABG ; systolic/diastolic dysfunction w/o CHF [...] of vaccination status is available in the Ordr.in Immunization tab. . Plan for pre-procedure COVID19 testing: Telephone assessment performed. Request placed for pre-procedure COVID19 testing to be performed on 06/09/21. [facility] will place the order for testing. Result [...] in place. Please call the CPAP attending ([phone]) with any questions. TPAP assessment complete. Preoperative [...] Medication protocol when under care of a FIRE SERVICES PLUMBER Planned anesthesia: MAC Induction: Induction: intravenous. Postoperative Plan: Patient's planned disposition post procedure is Floor. Informed Consent: Discussed plan with FIRE SERVICES PLUMBER. Anesthesia plan and risks discussed with patient. [...] and agree to proceed. All questions answered. OR REPORT DEVELOPER OR REPORT DEVELOPER documented in this encounter Miscellaneous Notes * Perioperative Nursing Note - Shin Silva RN - 06/13/2021 9:00 AM CST Requested per urology for patient to void any amount prior to discharge. Not passed along that the patient has been straight cathing himself for 30 years. Patient straight cathed himself prior to discharge. OR REPORT DEVELOPER * Op Note - Marquis Lopez MD - 06/13/2021 7:30 AM CST Date of Surgery: 06/13/2021 Preoperative diagnosis: neurogenic bladder with detrusor overactivity Post-operative diagnosis: neurogenic bladder with detrusor overactivity Procedure: Cystoscopy, injection of 300 units of onabotulinumtoxinA (Botox) into the bladder Surgeon: Marquis Lopez MD Tactical Debriefer: Donna Burrell MD; Adore Garcia MD Anesthesia: [...] Marquis Lopez, was present throughout the surgery. OR REPORT DEVELOPER * Brief Op Note - Marquis Lopez MD - 06/13/2021 7:30 AM CST Operative Progress Note Surgical Team: Surgeon(s) and Role: * Marquis Lopez MD - Primary * Donna Keys MD - Resident - Assisting Anesthesiologist: Hector Moser MD FIRE SERVICES PLUMBER: Sonya Solorzano CRNA Mental Health Nurse: Vanita Garcia RN Scrub: Shantel Weaver RN [...] the entire procedure (including opening and closing). OR REPORT DEVELOPER * Perioperative Nursing Note - Rizwan Bagley RN - 06/07/2021 5:41 PM SENIOR REPORT DEVELOPER [facility] Planning Perioperative Nursing Note Telephone Preoperative Evaluation ([facility]) - TELEPHONE ONLY, NO PHYSICAL EXAM [...] has advance directive, copy not in chart Communication/Natural Remedy Consultant Needs Communication Needs: Glasses Patient's Preferred Language: Panamanian Assistive Devices/DME: Eyeglasses Discharge Planning Type of [...] in a congregate living facility (ex. assisted living/retirement facility, senior care, penitentiary)?: No Have you tested positive for COVID-19 [...] 20 seconds. Use an alcohol- based hand toggle press operator that contains at least 60% alcohol if soap and water are not available. ADDITIONAL COMMENTS/ FOLLOW UP OR REPORT DEVELOPER * Pre-Procedure Instructions - Rizwan Bagley RN - 06/07/2021 5:32 PM SENIOR REPORT DEVELOPER [facility] PREOPERAT[facility] ASSESSMENT AND PLANNING (CPAP) [...] your insurance card, a photo ID (example: In School Suspension Coordinator's License) and a method of payment for [...] Remove nail coverings, artificial nails and nail malay. The Morning of Surgery: Take a shower [...] vaccinated and COVID vaccination information verified through [facility] Immunization Registry Database. COVID Test Plan: COVID Test Request Placed in Epic to [facility]. HOLIDAY hours may vary at testing site. Test aydee performed on 06/09/21 at [place] ([facility] [place] [address], M-F 8:30a-4:30p, Sat/Sun 8a-12:30p, Call once on [phone]. If you are going to a [facility] Testing Site for COVID testing, please arrive at least 30 minutes PRIOR to lab closing time. If you have COVID testing or should have COVID testing for your surgery/procedure, please read below section: If you need to reschedule your COVID test to a different location or if your surgery gets rescheduled, you MUST call [phone] Sunday-Sunday 8am-4:30pm to get your COVID testing rescheduled or your lab order will not be available at Testing Sites. COVID Testing is only valid for up to 96 hours prior to surgery date, unless otherwise specified. If you are unable to reach staff at the above phone number, please call the CPAP Staff at [phone]. This number cannot order a lab test, [...] least 20 seconds. Use an alcohol-based hand toggle press operator that contains at least 60% alcohol if [...] the most updated information. Information on [facility]: Please view [email or web address] (Patient & Visitor Information) for additional details regarding Advanced Directive forms, AWARE, directions, parking information, lodging, Internet access, dining and more. Information on [facility]: Please view [email or web address] (Patient and Visitor Information) for parking/directions and more. For MyChart information, to activate account or password recovery, please go to [email or web address] or call [phone] (toll-free: [phone]). Information for Suicide Prevention: National Suicide Prevention Lifeline (5-430- 512-QUHA (0494)). Surgery Times: For patients having surgery @ [facility], [facility] or [facility], if your surgeon's office has not notified you of your surgery time by NOON THE BUSINESS DAY BEFORE your surgery, please call [phone] and ask for your surgeon'soffice Dr Lopez. OR REPORT DEVELOPER documented in this encounter Plan of Treatment Not on file documented as of this encounter Procedures Procedure Name Priority Date/Time Associated Diagnosis Comments CYSTOSCOPY 06/13/2021 7:31 AM SENIOR REPORT DEVELOPER Neurogenic bladder OAB (overactive bladder) Special Needs 300 UNITS OF BOTOX TO BE MIXED WITH 30 CC NORMAL SALINE IN OR; CHERELLE NEEDLE FOR INJECTION INJECTION BOTOX 06/13/2021 7:31 AM SENIOR REPORT DEVELOPER Neurogenic bladder OAB (overactive bladder) Special Needs 300 UNITS OF BOTOX TO BE MIXED WITH 30 CC NORMAL SALINE IN OR; CHERELLE NEEDLE FOR INJECTION documented in this encounter Visit Diagnoses Diagnosis Neurogenic bladder disorder Neurogenic bladder, NOS OAB (overactive bladder) Neurogenic bladder Neurogenic bladder, NOS OAB (overactive bladder) documented [...] AnalgesiaIndications:Pre- Emptive Analgesia Given 06/13/2021 6:42 AM SENIOR REPORT DEVELOPER 1,000 mg Lactated Ringer's (LR) infusion 30 mL/hr, intravenous, Continuous, Starting on Sun06/13/21 at 0630, Pre-Op Lactated Ringer's (LR) infusion 30 mL/hr, intravenous, Continuous, Starting on Sun06/13/21 at 0630, Pre-Op Rate/Dose Verify 06/13/2021 7:28 AM SENIOR REPORT DEVELOPER 30 mL/hr New Bag 06/13/2021 6:28 AM SENIOR REPORT DEVELOPER 30 mL/hr 30 mL/hr onabotulinumtoxin A (botulinum toxin type A, BOTOX) 200 unit/20 mL in sodium chloride 0.9% As needed, Starting on 06/13/21 at 0750, Intra-Op Given 06/13/2021 7:50 AM SENIOR REPORT DEVELOPER 30 mL Surgical Site sodium chloride 0.9% flush 0.5-20 mL 0.5-20 mL, intra-catheter, As needed, line care, Starting on 06/13/21 at 0554, Pre-Op, Flush volume based on line type and size. Flush before and after each use. sodium chloride 0.9% irrigation As needed, Starting on 06/13/21 at 0740, Intra-Op Given 06/13/2021 7:45 AM SENIOR REPORT DEVELOPER 1,000 mL Other (Comment) Given 06/13/2021 7:40 AM SENIOR REPORT DEVELOPER 3,000 mL [facility] rgical Site documented in this encounter Discontinued Medications [...] Recently Administered Medications Times are shown in SENIOR REPORT DEVELOPER. Scheduled Medication Order 06/11/2021 06/12/2021 06/13/2021 acetaminophen [...] 1 06/13/2021 Lactated Ringer's (LR) infusion 1 sodium chloride 0.9% flush 0.5-20 mL 3 05/26 documented in this encounter Care Teams Fire Sprinkler Apparatus Inspector Relationship Specialty Start Date End Date Mick Flowers MD PCP - General 05/14/17 documented as of this encounter
--- OUTSIDE RECORDS SUMMARY | 2024-06-29 00:30 | XMS_ITS | Encounter Summary ---
Author Organization [facility] Address [address] [place] [address] Phone Care Team Providers Care Canceling Machine Operator Name Role Phone Mick Flowers MD Primary Care Provider [phone] Encounter Details Date Type Department Care Team (Late st Contact Info) Description 12/10/2020 Orders Only [facility] [address] [facility] Medical Office Building [address] [place] [address] Marquis Lopez MD [address] [facility] [address] [place] [address] Urinary tract infection without hematuria, [...] on file Legal Sex Male 3:12 AM SWEEPER DRIVER Gender Identity Not on file Sexual Orientation [...] day for 3 days 6 tablet 12/10/2020 12/10/2020 documented in this encounter Plan of Treatment Not on file documented as of this encounter Visit Diagnoses Diagnosis Urinary tract infection without hematuria, site unspecified- Primary documented in this encounter Care Teams Canceling Machine Operator Relationship Specialty Start Date End Date Mick Flowers MD PCP - General 05/14/17 documented as of this encounter
--- OUTSIDE RECORDS SUMMARY | 2024-06-29 00:30 | XMS_ITS | Encounter Summary ---
Author Organization [facility] Address [address] [place] [address] Phone Care Team Providers Care Clerical Warehouse Worker Name Role Phone Mick Flowers MD Primary Care Provider [phone] Encounter Details Date Type Department Care Team (Late st Contact Info) Description 03/28/2021 Orders Only [facility] Multiple Sclerosis [address] [place] [address] [place] [address] Rafia Rich, CABIN EQUIPMENT SUPERVISOR [address] [place] [address] Multiple sclerosis (CMS/HCC) (HCC) (Primary Dx); Abnormality [...] on file Legal Sex Male 3:12 AM OCCUPATIONAL MEDICINE OFFICER Gender Identity Not on file Sexual Orientation Not on file 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 on file Not on file documented as of this encounter Ordered Prescriptions Prescription Sig Dispense Quantity Refills Last Filled Start Date End Date dalfampridine 10 mg tablet extended release 12 hrIndications:Mult iple sclerosis (HCC),Abnormality of gait and mobility Take 1 tablet (10 mg total) by mouth every 12 (twelve) hours 60 tablet 1 03/28/2021 04/05/2021 documented in this encounter Plan of Treatment Not on file documented as of this encounter Visit Diagnoses Diagnosis Multiple sclerosis (HCC)- Primary Multiple sclerosis Abnormality of gait and mobility documented in this encounter Care Teams Clerical Warehouse Worker Relationship Specialty Start Date End Date Mick Flowers MD PCP - General 05/14/17 documented as of this encounter
--- OUTSIDE RECORDS SUMMARY | 2024-06-29 00:30 | XMS_ITS | Encounter Summary ---
Author Organization [facility] Address [address] [place] [address] Phone Care Team Providers Care Concrete Rubber Name Role Phone Mick Flowers MD Primary Care Provider [phone] Encounter Details Date Type Department Care Team (Late st Contact Info) Description 12/14/2020 2:45 PM CDT Telemedicine [facility] Multiple Sclerosis [address] [place] [phone] Cherry Minor MD [address] [place], [place] [id number] Multiple sclerosis (CMS/HCC) (Primary Dx); Incontinence of feces with fecal urgency; Cardiovascular risk factor Social History Tobacco Use Types Packs/Day Years [...] file Legal 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 As a recap, you are having intermittent diarrhea, of unknown cause, new in the past year or so. Youare unable to control your bowel sphincter when you have the diarrhea, and are at risk of bowel incontinence. This does not occur at time of non-diarrhea bowel movements. You have not identified any food that causes the diarrhea and have also undergone several GI tests that did not identify a cause. To your knowledge, no stool cultures for bad bacteria have been done, but I can understand that since this is not a continual diarrhea. You had COVID-19 but it was a mild case and you did well. Later, you were vaccinated against SARS-CoV-2 as well, with an mRNA vaccine. Nonetheless, due to your age over 55, and your condition (MS), I want you to be aware of the existence of the two monoclonal cocktails and one other EUA- approved monoclonal antibody for the treatmentof outpatients with + SARS-CoV-2 test and symptoms, within first 7-10 days of symptoms. These work remarkably well, and are available for anyone with risk factors for hospitalization, or worse, whichwould be you due to your age plus high blood pressure. Should you have symptoms of COVID-19 (even sore throat), please have yourself tested and report anypositive test to my office within 7-10 days of symptom onset, and we will attempt to get one of these treatments for you. I also recommended you take a 81mg (Baby) aspirin daily due to your cardiovascular risk factors of hyperlipidemia, an high blood pressure. I will ask Scheduling to change your next appointment with me to May-July some time, and hopefully in person so I can do a good neurological examination. I am here if you need me. Sincerely, Cherry Minor MD documented in this encounter Progress Notes * Cherry Minor MD - 12/14/2020 2:45 PM CDT This was a telemedicine visit with Marita Emery alone which took place via Real-time video connection (InTouch, Zoom or similar). During the visit, I was located in my clinic office in the [facility] in the [place], [place] and the patient was located at home in [place]. The sessionstarted at 244 and ended at 3:12pm. In addition to the time spent during the session with the patient, I spent 11 minutes preparing to see the patient, > 1/2 of the minutes counseling and educating the patient/family/caregiver, 0 minutes ordering medications, tests, or procedures, 1 minutes referring and communicating with other healthcare professional, 24 minutes documenting clinical information in the electronic or other health record, 0 minutes independently interpreting results and communicating the results to the patient/family/caregiver and 0 minutes on care coordination on the day of the visit. Total time spend on encounter on the day of the visit: 64 minutes. Pre-visit Chart review: 9:14am - 9:25am (11min) Visit itself: 2:44pm - 3:12pm ( 28min) After visit chartin:12pm - 3:37pm (25) Total: 11 + 28+ 25 = 64 total The patient has been informed that the visit may not be secure and acknowledged the information. It was explained to the patient they have the option of participating in a telephone or video visitduring the [address] emergency. After being given an opportunity to ask questions about and discuss this type of visit, the patient verbally consented to proceeding with the telephone / video visit. The patient understands that this service replaces an office visit and they may be billed and/or responsible for any applicable copayments. Greater than 50% of any time I spent on the call/video was spent in counseling and/or coordination of care as documented in the note. Patient Name: MARITA EMERY Medical Record Number (MRN): [id number] Date of (): 1965 Encounter Date: 12/14/2020 Chief Complaint Marita Emery is a 55 y.o. male seen today for PPMS and new issues, as well as DMT and Symptom management. Note: is named Cecilia - not honeycomb decapper today. Pt was last seen on 02-17-2020 in a virtual visit by me in a virtual visit. Some portions of this note were copied forward from our previous note dated *02-17-2020, confirmed today at this visit and revised as appropriate. 12/14/2020 . Pt is on no DMT. He states he is mainly stable. Interim: I am seeing him in virtual [...] along with the bladder. Thanks, Marita Emery [phone] Today 12-14-20 on this telemed visit, Mr [...] taste, low grade fever). (I added to [facility]) Had normal Vit D (55), normal TSH last [...] measurements of PRAlexsander (Mr Emery) in the [facility] longitudinal study. This patient belongs [...] Neurological History: Mr. Emery is a former [employer] worker in [employer] and has lived in [place] and [place],??[place]. He is Rt handed. 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 ??He is on Ampyra 10 mg BID for gait; but no disease- modifying therapy.?? Has had MS since 1989??(age 24). First symptom was bladder related.?? Urgency and Frequency. No UTIs. No Family History of MS??(3 children - college age). He reports that it took 6 months to figure out the diagnosis. Diagnosis: LP (abnormal), MRI. Diagnosis made when in [facility]. 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 MS??for??>25 years. In fact, pt states his first MS doctor was Dr Usman Rosenbaum.??He??was a former patient of Dr. Betzaida Warren.?? Pt reports only a slowly downhill course. He has had some slow downhill progression of worsening vision OD.?? Has not ever taken baclofen or tizanidine.? Does have sexual dysfunction and uses EDEX for this. Followed by Dr. Juice Lopez for these issues (bladder &??sexual dysfunction). No depression and denies cognitive problems or fatigue. Not excessive. Bowel problems developed [id number], with intermittent diarrhea and stool incontinence. No stool incontinence when having a normal BM. ?He had COVID-12 Jun 2020, but it was a mild case and did well. Later, he was vaccinated against SARS-CoV-2 as well, with an mRNA vaccine. Added case to the [email or web address] Registry. No Known Allergies Current Outpatient Medications: ??? famotidine (PEPCID) 10 mg tablet, Take 10 mg by mouth 2 (two) times a day, Disp: , Rfl: ??? omeprazole (PriLOSEC) 10 mg capsule, Take 10 mg by mouth daily, Disp: , Rfl: ??? ALPRAZolam (XANAX) 0.25 mg tablet, Take [...] for erectile dysfunction , Disp: ,Rfl: ??? felodipine (PLENDIL) 5 mg 24 hr tablet, Take 5 mg by mouth every morning , Disp: , Rfl: ??? hydroCHLOROthiazide (HYDRODIURIL) 25 mg tablet, Take 25 mg by mouth every morning , Disp: , Rfl: ??? losartan (COZAAR) 100 mg tablet, Take 100 mg by mouth every morning , Disp: , Rfl: ??? phenazopyridine (PYRIDIUM) 100 mg tablet, Take 1 tablet (100 mg total) by mouth 3 (three) timesa day as needed for urinary pain, Disp: 10 tablet, Rfl: 0 ??? POTASSIUM CHLORIDE ER 20 mEq CR tablet, Take 20 mEq by mouth every morning , Disp: , Rfl: 5 Patient Active Problem List Diagnosis ??? Neurogenic [...] times per week Types: Marijuana Vital Signs There were no vitals taken for this visit. Report s 130/90 recently at time of BOTOX . Review of Systems A 12 point review of systems has NOT been performed except per here, chief complaint or HPI. Exam 12-14-2020: Neurological Exam: Mental Status: Orientation was normal to time, place and self. Speech and Language are normal. Attention span and concentration normal. Fund of knowledge normal. Cranial Nerves: CN II VA: ND (video). CN III, IV, : Extraocular motility appeared intact. CN VII:Muscles of facial expression were strong and symmetric. CN VIII: Hearing was ND. Motor/Gait - patient reports taking 3-5 mile hikes frequencly ?? Neurologic Exam??10-08-2018 (most recent F2F visit and exam); Walk Aid: ??none ?? General: ??MARITA ??GISSELL is [...] OS. ??No APD. Pupils are O.D./O.S.: ??2/2 -->??1/1. ??Extraocular movements are full. ?There is no nystagmus. ?NIURKA is not present. Facial sensation is intact to light touch/temp. ??The face is symmetric. ?There is no dysarthria. ??Shoulder shrug is equal. ??Tongue movements are normal. ?? Motor Examination: ??In UEs, tone is normal bilaterally. ??In LEs, tone is not normal. Has clear spastic catch right knee, and increased in right ankle and left ankle. ? Strength is 5/5 throughout UEs. In the LEs, I detect 4++/5 in the right hamstrings as well. His [...] is normal. ??Rapid alternating movements are normal. ??Ztfm-fnon-qnsi is normal. Rhythmic toe tapping - normal. ? Ambulation: ?The patient is able to walk on his heels. ??The patient is able to walk on his toes. Tandem gait is normal; 10 steps. ??Hops 10 times on right foot. ??Hops 10 times on left foot. ?Has more difficulty per his report hopping on right leg. Reflexes: Reflexes in UEs are hyper throughout. Today, no asymmetry??except at the ankles, where has 4+_ (Clonus) in right ankle, 3+ in left.??In [place], 3++ at knees bilaterally??with unequivocal right??UPgoing toes, left mute.?We did 25FTW today, and compared to 01-07-2018 when last seen in the study In , was 4.6 sec and 4.1 sec (no assistance). ??Today, was 4.07sec and 3.98 sec (no assist). So, no worsening. ?? OCT - mild temporal thinning OD?- PRIOR visits (not 2019) ?? EDSS on 02-17-2020: Still : 4.0 based on bladder? Assessment/Plan No diagnosis found. Assessment ?? PPMS is probable subtype but very slow progression with long plateaus. Mostly problems with sphincter control. Began bladder, now probably bowel. ?? On no DMT. ?? Sphincter control issues: now including bowels as well as bladder, and with ED. I have informed Mr Emery that I do not believe the DIARRHEA is related to his MS, but the lack of ability to hold the diarrheal stool is likely related ?? COVID-19 in May 2020. Added to [facility] Registry on 12-15-2020y [facility]. Plan *see below Patient Instructions Dear Mr Emery, it was nice to see you today. As a recap, you are having intermittent diarrhea, of unknown cause, new in the past year or so. Youare unable to control your bowel sphincter when you have the diarrhea, and are at risk of bowel incontinence. This does not occur at time of non-diarrhea bowel movements. You have not identified any food that causes the diarrhea and have also undergone several GI tests that did not identify a cause. To your knowledge, no stool cultures for bad bacteria have been done, but I can understand that since this is not a continual diarrhea. You had COVID-19 but it was a mild case and you did well. Later, you were vaccinated against SARS-CoV-2 as well, with an mRNA vaccine. Nonetheless, due to your age over 55, and your condition (MS), I want you to be aware of the existence of the two monoclonal cocktails and one other EUA- approved monoclonal antibody for the treatmentof outpatients with + SARS-CoV-2 test and symptoms, within first 7-10 days of symptoms. These work remarkably well, and are available for anyone with risk factors for hospitalization, or worse, whichwould be you due to your age plus high blood pressure. Should you have symptoms of COVID-19 (even sore throat), please have yourself tested and report anypositive test to my office within 7-10 days of symptom onset, and we will attempt to get one of these treatments for you. I also recommended you take a 81mg (Baby) aspirin daily due to your cardiovascular risk factors of hyperlipidemia, an high blood pressure. I will ask Scheduling to change your next appointment with me to May-July some time, and hopefully in person so I can do a good neurological examination. I am here if you need me. Sincerely, Cherry Minor MD >50% of the [...] Minor MD Professor of Neurology Usman Rosenbaum [facility] Department of Neurology [facility] ; documented in this encounter Plan of Treatment Not on file documented as of this encounter Visit Diagnoses Diagnosis Multiple sclerosis (HCC)- Primary Multiple sclerosis Incontinence of feces with fecal urgency Cardiovascular risk factor documented in this encounter Historical Medications * This list may reflect changes made after this encounter. omeprazole (PriLOSEC) 10 mg capsuleIndication s:Treatment of Non-Bleeding Gastric Disorder Take 10 mg by mouth as needed 06/13/2021 famotidine (PEPCID) 10 mg tabletIndications :Dyspepsia Take 10 mg by mouth as needed 11/03/2021 added in this encounter Care Teams Concrete Rubber Relationship Specialty Start Date End Date Mick Flowers MD PCP - General 05/14/17 documented as of this encounter
--- OUTSIDE RECORDS SUMMARY | 2024-06-29 00:31 | XMS_ITS | Encounter Summary ---
Author Organization [facility] Healthcare Address [address] [place] [address] Care Team Providers Care Car Dumper Operator Name Role Phone Mick Flowers MD Primary Care Provider [phone] Encounter Details Date Type Department Care Team (Late st Contact Info) Description 11/20/2019 Orders Only [facility] HealthCare/ Physicians [address] [place], [place] [id number] Marquis Lopez MD [address] [facility] [address] [place], [place] [phone] Pre-op testing (Primary Dx) Social History Tobacco Use Types Packs/Day Years Used Date Smoking Tobacco: Never Smokeless Tobacco: Never Alcohol Use Standard Drinks/Week Comments Yes 21 (1 standard drink = 0.6 oz pu re alcohol) Sex and Gender Information Value Date Recorded Sex Assigned at Not on file 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 Order placed. Order and label printed for Location: [facility] documented in this encounter Miscellaneous Notes * Addendum Note - Ирина Romero - 11/20/2019 8:24 AM CDTAddended by: ИРИНА ROMERO on: 11/21/2019 01:48 PM Modules accepted: Orders documented in this encounter Plan of Treatment Not on file documented as of this encounter Results * COVID-19 Coronavirus RNA Nasopharyngeal (11/21/2019 9:46 AM CDT) COVID-19 RNA Not Detected [facility] Comment: Interpretive Data Testing performed at [facility]. The 2018-Novel Coronavirus Assay (COVID-19) Real Time RT-PCR assay [...] Interpretive Data was last revised on 2019. Nasopharyngeal 11/21/2019 9: 46 AM CDT 11/21/2019 2:[address] [facility] - 11/21/2019 10:58 PM CDT Is the patient experiencing any symptoms consistent with COVID (eg. Fever, cough, shortness of breath)?->No What is the reason for testing?->Screening prior to scheduled (>24 hr) surgery or procedure Marquis Lopez MD LAB MICROBIOLOGY - GENERAL ORD ERABLES Final Result [facility] Department [place] [address] documented in this encounter Visit Diagnoses Diagnosis Pre-op testing- Primary Unspecified pre-operative examination Pre-op testing Unspecified pre-operative examination documented in this encounter Care Teams Car Dumper Operator Relationship Specialty Start Date End Date Mick Flowers MD PCP - General 05/14/17 documented as of this encounter
--- OUTSIDE RECORDS SUMMARY | 2024-06-29 00:31 | XMS_ITS | Encounter Summary ---
Author Organization [facility] Address [address] [place] [address] Phone Care Team Providers Care School Superintendent Name Role Phone Mick Flowers MD Primary Care Provider [phone] Encounter Details Date Type Department Care Team (Late st Contact Info) Description 04/15/2020 Telephone [facility] Orthopaedic Surgery [address] [place] [address] Walter Rojas MD [address] [facility] [address] [place] [address] Social History Tobacco Use Types Packs/Day Years Used Date Smoking Tobacco: Never Smokeless Tobacco: Never Alcohol Use Standard Drinks/Week Comments Yes 21 (1 standard drink = 0.6 oz pu re alcohol) Sex and Gender Information Value Date Recorded Sex Assigned at Not on file 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 I have a pt that want to scan his INJ approval letter ? I was told by pre-arrival team aMryanne Alonzo that injwas Denied the patient states that he received a letter stating it was approved and he wants to email scan it to us. we can???t given out our emails so I was wondering if your team had one please andthank you * Telephone Encounter - Isaac Ortega B.A. - 04/16/2020 8:44 AM CDT Pt calling about INJ being denied. States received paperwork in the mail yesterday from insurance stating INJ was approved. Pt is at [phone] * Telephone Encounter - Marilyn Jimenez RMA - 04/15/2020 11:27 AM CDT I received a call from pre-arrival Maryanne Gaytan Stating INJ Dated 04/[address] Rojas Has Been Denied Reason Of Denial: It Was Not NOTED In pt Chart That he Did NOT Get Any relief From INJ that Was done In August Please Call For a Peer to peer [phone] Option 1 And JOSEI- TARIQ Westfall Former patient This info Was Submitted To Dr Rojas INJ May need to be Rescheduled until this has bben Done As Dr Rojas is In Clinic Today. Pt Will be Notified Either way. documented in this encounter Plan of Treatment Not on file documented as of this encounter Visit Diagnoses Not on filedocumented in this encounter Care Teams School Superintendent Relationship Specialty Start Date End Date Mick Flowers MD PCP - General 05/14/17 documented as of this encounter
--- OUTSIDE RECORDS SUMMARY | 2024-06-29 00:31 | XMS_ITS | Encounter Summary ---
Author Organization [facility] Address [address] [place] [address] Care Team Providers Care Horticultural Therapist Name Role Phone Mick Flowers MD Primary Care Provider [phone] Reason for Referral * Diagnostic Imaging (Routine) - Closed Specialty Diagnoses / Procedures Referred By Contac t Referred To Contact Radiology Diagnoses Midline low back pain, unspecified chronicity, unspecified whether sciatica present Arthropathy of lumbosacral facet joint Procedures IR Facet Block Lumbar Sacral First Level Left Walter Rojas MD [address] [address] Phone: tel: fax: [address] [phone] Referral ID Status Reason Start Date Expiration Date Visits Re quested Visits Authorized [id number] Closed 04/22/2020 05/05/2020 1 1 WORKER Reason for Visit * Diagnostic Imaging (Routine) - Closed Specialty Diagnoses / Procedures Referred By Contac t Referred To Contact Radiology Diagnoses Midline low back pain, unspecified chronicity, unspecified whether sciatica present Arthropathy of lumbosacral facet joint Procedures IR Facet Block Lumbar Sacral First Level Left Walter Rojas MD [address] [address] Phone: tel: fax: [address] [phone] Referral ID Status Reason Start Date Expiration Date Visits Re quested Visits Authorized [id number] Closed 04/22/2020 05/05/2020 1 1 Encounter Details Date Type Department Care Team (Latest Contact Info) Description 05/04/2020 1:33 PM PASS WORKER - 05/04/2020 11:59 PM PASS WORKER Hospital Encounter [facility] [address] [place] [address] Walter Rojas MD [address] [facility] [address] [address] [address] [place] [address] Lumbar spondylosis; Arthropathy of lumbosacral facet joint Discharge Disposition: Discharge to home or self care Social History Tobacco Use Types Packs/Day Years Used Date Smoking Tobacco: Never Smokeless Tobacco: Never Alcohol Use Standard Drinks/Week Comments Yes 21 (1 standard drink = 0.6 oz pu re alcohol) Sex and Gender Information Value Date Recorded Sex Assigned at Not on file Legal Sex Male 3:12 AM PASS WORKER Gender Identity Not on file Sexual Orientation Not on file 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 on file Not on file documented as of this encounter Last Filed Vital Signs Vital Sign Reading Time Taken Comments Blood Pressure 149/92 05/04/2020 2:42 PM PASS WORKER Pulse 66 05/04/2020 2:42 PM PASS WORKER Temperature - - Respiratory Rate 16 05/04/2020 1:45 PM PASS WORKER Oxygen Saturation 97% 05/04/2020 2:42 PM PASS WORKER Inhaled Oxygen Concentration - - Weight - - Height - - Body Mass Index - - documented in this encounter Discharge Instructions * Discharge Instructions* Naa Mahan RN - 05/04/2020 2:46 PM PASS WORKER Pain diary and discharge instructions reviewed, patient voiced understanding. WORKER documented in this encounter Medications at Time [...] in this encounter Progress Notes * Walter Dockery MD - 05/04/2020 2:00 PM CST Left L4-5 Facet Joint Injection [facility] Department of Orthopedic Surgery Division of Physical Medicine and Rehabilitation Patient name: Doc Emery Date of : 1965 Date of service: 05/04/2020 Doc Emery presents to the fluoroscopy suite for a fluoroscopically guided left L4-5 facet joint injection as part of conservative treatment for midline low back pain with lumbosacral facet arthropathy. After informed consent was obtained, the patient lay in the prone position on the fluoroscopy table. The left L4-5 facet joint was identified under fluoroscopic guidance. The area was prepped and draped in a sterile fashion. Using a 25 gauge 2 inch needle, 1-2 mL of 1% lidocaine was infused subcutaneously to anesthetize the region. Then, a 22 gauge 3.5 inch spinal needle was inserted into the mid portion of the facet joint under fluoroscopic guidance. Confirmation into the joint space was obtained with infusion of 0.25 mL of Omnipaque contrast which showed outline of the facet joint. Then a combination of 0.5 mL of 1% lidocaine and 40 mg of 40 mg/mL of Kenalog was infused. The patient tolerated the procedure without complications. Pre and post procedure blood pressure were stable. The patient was given verbal as well as written follow-up instructions. Prior to the start of the procedure, verbal verification by the procedure participant(s) confirmed (as applicable): correct patient identity; correct site/side marked and visible; agreement on the procedure to be done; correct patient positioning; an accurate procedure consent form, relevant imagesand results correctly labeled and displayed; any safety precautions based on clinical history and/or medication use have been addressed. Fluoroscopic guidance used to left L4-5 facet joint injection. Confirmation of needle placement into the left L4-5 facet joint was obtained by injecting approximately 0.25 mL of Omnipaque contrast. There was no evidence of vascular uptake or subdural flow noted. I personally performed or was present for the procedure above. Walter Rojas MD WORKER documented in this encounter Plan of Treatment Not on file documented as of this encounter Procedures Procedure Name Priority Date/Time Associated Diagnosis Comments FACET BLOCK LUMBAR/SACRAL 1 LEVEL LEFT Schedule Routine, Read Routine (OP Routine) 05/04/2020 2:36 PM PASS WORKER Lumbar spondylosis Arthropathy of lumbosacral facet joint documented in this encounter Results * IR Facet Block Lumbar Sacral First Level Left (05/04/2020 2:36 PM PASS WORKER) Narrative [facility] - 05/04/2020 2:38 PM PASS WORKER The images from this study are not interpreted by Radiology. ??Please refer to the physician's procedure / OR operative note. us Walter Rojas MD IMG IR PROCEDURES Final Re sult [facility] documented in this encounter Visit Diagnoses Diagnosis Lumbar spondylosis Lumbosacral spondylosis without myelopathy Arthropathy of lumbosacral facet joint documented in this encounter Administered Medications Inactive Administered Medications - up to 3 most recent administrations Medication Order MAR Action Action Date Dose Rate Site iohexoL (OMNIPAQUE) 300 mg iodine/mL injection solution Code/trauma/sedation medication, Starting on Sun05/04/20 at 1436 Given 05/04/2020 2:36 PM PASS WORKER 0.5 mL lidocaine PF (XYLOCAINE) 10 mg/mL (1 %) preservative free injection Code/trauma/sedation medication, Starting on Sun05/04/20 at 1436, Intra-Procedure (IR), Indications: Administration of Local AnesthesiaIndications:Administrati on of Local Anesthesia Given 05/04/2020 2:36 PM PASS WORKER 0.5 mL triamcinolone (KENALOG) 40 mg/mL injection Code/trauma/sedation medication, Starting on Sun05/04/20 at 1436 Given 05/04/2020 2:36 PM PASS WORKER 40 mg documented in this encounter Care Teams Horticultural Therapist Relationship Specialty Start Date End Date Mick Flowers MD PCP - General 05/14/17 documented as of this encounter
--- OUTSIDE RECORDS SUMMARY | 2024-06-29 00:31 | XMS_ITS | Encounter Summary ---
Author Organization [facility] Healthcare Address [address] [place] [address] Care Team Providers Care Lump Receiver Name Role Phone Mick Flowers MD Primary Care Provider [phone] Encounter Details Date Type Department Care Team (Late st Contact Info) Description 04/15/2020 Telephone [facility] [address] [place] [phone] Walter Rojas MD [address] [place] [address] Social History Tobacco Use Types Packs/Day Years Used Date Smoking Tobacco: Never Smokeless Tobacco: Never Alcohol Use Standard Drinks/Week Comments Yes 21 (1 standard drink = 0.6 oz pu re alcohol) Sex and Gender Information Value Date Recorded Sex Assigned at Not on file Legal Sex Male 3:12 AM PROCUREMENT SPECIALIST Gender Identity Not on file Sexual Orientation Not on file 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 Remind Patients of our location. [address] [facility] [facility] [address] 2. If patient needs to cancel or change appointment direct them to call [phone]. 3. Ask them the covid screening questions a. [...] person under investigation? Yes [] No [x] 4. If the patient answers yes to any of the Covid -19 screening questions they need to be rescheduled for at least 14 days later. 5. Inform patient that only 1 guest/visitor will be allowed into the clinic. If possible, come by themselves. 6. Inform patient to wear a mask and any guest will also need a mask. Procedure Patients 1. Are you on any blood thinners? Yes [] No [] 2. Are you currently on any antibiotics? Yes [] No [] 3. Have you had a fever in the last 7 days? Yes [] No [x] 4. Are you diabetic? Yes [] No [] 5. Do you have a marine engine driver? Yes [] No [] documented in this encounter Plan of Treatment Not on file documented as of this encounter Visit Diagnoses Not on filedocumented in this encounter Care Teams Lump Receiver Relationship Specialty Start Date End Date Mick Flowers MD PCP - General 05/14/17 documented as of this encounter
--- OUTSIDE RECORDS SUMMARY | 2024-06-29 00:31 | XMS_ITS | Encounter Summary ---
Author Organization [facility] Address [address] [place] [address] Phone Care Team Providers Care Nurses' Registry Director Name Role Phone Mick Flowers MD Primary Care Provider [phone] Encounter Details Date Type Department Care Team (Late st Contact Info) Description 04/15/2020 Telephone [facility] Orthopaedic Surgery [address] [place] [address] Medical Office Building [address] [place] [address] Dorothy Toussaint RMA Social History Tobacco Use Types Packs/Day Years Used Date Smoking Tobacco: Never Smokeless Tobacco: Never Alcohol Use Standard Drinks/Week Comments Yes 21 (1 standard drink = 0.6 oz pu re alcohol) Sex and Gender Information Value Date Recorded Sex Assigned at Not on file Legal Sex Male 3:12 AM AUTHORIZATION REPRESENTATIVE Gender Identity Not on file Sexual Orientation Not on file 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 Slaughter Would you like to do a [id number]? Or RPV to re-evaluate? Cancelled injection 04/16 documented in this encounter Plan of Treatment Not on file documented as of this encounter Visit Diagnoses Not on filedocumented in this encounter Care Teams Nurses' Registry Director Relationship Specialty Start Date End Date Mick Flowers MD PCP - General 05/14/17 documented as of this encounter
--- OUTSIDE RECORDS SUMMARY | 2024-06-29 00:31 | XMS_ITS | Encounter Summary ---
Author Organization [facility] Healthcare Address [address] [place] [address] Care Team Providers Care Sheet Metal Worker Helper Name Role Phone Mick Flowers MD Primary Care Provider [phone] Encounter Details Date Type Department Care Team (Late st Contact Info) Description 05/28/2020 11:25 AM BLENDER LABORER Lab [address] [address] Pre-procedure lab exam Social History Tobacco Use Types Packs/Day Years Used Date Smoking Tobacco: Never Smokeless Tobacco: Never Alcohol Use Standard Drinks/Week Comments Yes 0 (1 standard drink = 0.6 oz pur e alcohol) SOCIAL Sex and Gender Information Value Date Recorded Sex Assigned at Not on file Legal Sex Male 3:12 AM BLENDER LABORER Gender Identity Not on file Sexual Orientation Not on file 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 The 2018-Novel Coronavirus [...] Interpretive Data was last revised on 2019. First COVID-19 test? Unknown [employer] Employeed in healthcare? No [employer] status? [facility] Group care resident? No [facility] Hospitalized? Unknown [facility] Is patient in ICU? Unknown [facility] Symptomatic as defined by CDC? No [facility] Nasopharyngeal 05/28/2020 8: 40 AM BLENDER LABORER 05/28/2020 12:07 PM BLENDER LABORER Narrative [facility] - 05/29/2020 6:14 AM BLENDER LABORER What is the reason for testing?->Screening prior to scheduled procedure or surgery Marquis Lopez MD LAB MICROBIOLOGY - GENERAL ORD ERABLES Final Result [facility] Department [place] [address] documented in this encounter Visit Diagnoses Diagnosis Pre-procedure lab exam Pre-procedural laboratory examination documented in this encounter Care Teams Sheet Metal Worker Helper Relationship Specialty Start Date End Date Mick Flowers MD PCP - General 05/14/17 documented as of this encounter
--- OUTSIDE RECORDS SUMMARY | 2024-06-29 00:31 | XMS_ITS | Encounter Summary ---
Author Organization [facility] Address [address] [place] [address] Phone Care Team Providers Care Manager Games Name Role Phone Mick Flowers MD Primary Care Provider Encounter Details Date Type Department Care Team (Late st Contact Info) Description 05/24/2020 Orders Only [facility] Urology [address] [facility] Medical Office [address] [place] [address] Marquis Lopez MD [address] [facility] [address] [place], [place] [id number] Elective surgery (Primary Dx) Social History Tobacco Use Types Packs/Day Years Used Date Smoking Tobacco: Never Smokeless Tobacco: Never Alcohol Use Standard Drinks/Week Comments Yes 21 (1 standard drink = 0.6 oz pu re alcohol) Sex and Gender Information Value Date Recorded Sex Assigned at Not on file Legal Sex Male 3:12 AM MACHINE BUNCH MAKER Gender Identity Not on file Sexual Orientation Not on file 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 INE BUNCH MAKER documented in this encounter Plan of Treatment Not on file documented as of this encounter Visit Diagnoses Diagnosis Elective surgery- Primary documented in this encounter Care Teams Manager Games Relationship Specialty Start Date End Date Mick Flowers MD PCP - General 05/14/17 documented as of this encounter
--- OUTSIDE RECORDS SUMMARY | 2024-06-29 00:31 | XMS_ITS | Encounter Summary ---
Author Organization [facility] Healthcare Address [address] [place] [address] Care Team Providers Care Adjuster Electrical Contacts Name Role Phone Mick Flowers MD Primary Care Provider [phone] Encounter Details Date Type Department Care Team (Late st Contact Info) Description 11/24/2019 12:51 PM CDT - 11/24/2019 6:24 PM CDT Hospital Encounter [facility] Operating Room [address] [place] [id number] Marquis Kirby MD [address] [facility] [address] [place] [address] Discharge Disposition: Discharge to home or self care Social History Tobacco Use Types Packs/Day Years Used Date Smoking Tobacco: Never Smokeless Tobacco: Never Alcohol Use Standard Drinks/Week Comments Yes 21 (1 standard drink = 0.6 oz pu re alcohol) Sex and Gender Information Value Date Recorded Sex Assigned at Not on file 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 Gender Identity Not on file Sexual Orientation Not on file 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 on file Not on file documented as of this encounter Last Filed Vital Signs Vital Sign Reading Time Taken Comments Blood Pressure 121/82 11/24/2019 5:50 PM CDT Pulse 54 11/24/2019 6:01 PM CDT Temperature 36 ??C (96.8 ??F) 11/24/2019 5:35 PM CDT Respiratory Rate 12 11/24/2019 6:01 PM CDT Oxygen Saturation 95% 11/24/2019 6:01 PM CDT Inhaled Oxygen Concentration - - Weight 81.6 kg (180 lb) 11/19/2019 10:15 AM CDT Height 177.8 cm (5' 10 ) 11/19/2019 10:15 AM CDT Body Mass Index 25.83 11/19/2019 10:15 AM CDT documented in this encounter Discharge Diagnoses Diagnosis Neuromuscular dysfunction of bladder, unspecified - NEUROMUSCULAR DYSFUNCTION OF BLADDER, UNSPECIFIED Overactive bladder - OVERACTIVE BLADDER Hypertonicity of bladder Multiple sclerosis (HCC) - MULTIPLE SCLEROSIS Multiple sclerosis Essential (primary) hypertension - ESSENTIAL (PRIMARY) HYPERTENSION Unspecified essential hypertension Hyperlipidemia, unspecified - HYPERLIPIDEMIA, UNSPECIFIED Other intermediate (current) drug therapy - OTHER INCUBATOR TENDER (CURRENT) DRUG THERAPY Personal history of urinary (tract) infections - PERSONAL HISTORY OF URINARY (TRACT) INFECTIONS documented in this encounter Discharge Instructions * Discharge Instructions* Eleno Judd MD - 11/24/2019 3:47 PM CDT Discharge Instructions: Surgery performed: Botox injection Wound: - You may see some blood in your urine, this can be normal following the procedure. If you notice blood clots or your catheter stops putting out urine for greater than 2 hours, please call the urology office New medications: - Tylenol and ibuprofen as needed for pain Diet: Resume usual diet. Avoid raw or undercooked meats. Keep well hydrated. Activity: Activity as tolerated Follow up: Call the urology office to schedule at [phone]. Contact your doctor if: - Fever over 100.8 - Pain uncontrolled by prescribed medications - Nausea/vomiting - Blood clots (solid blood chunks) in urine - Difficulty voiding - Sunday through Sunday, 8 AM to 4:30 PM, call [phone] and ask for a member of your doctor's team. - After 4:30 PM during the week, on weekends and holidays, call [phone] and ask to have the Urology Day Guard Physician paged for you. * Attachments The following attachments cannot be sent through Care Everywhere. * [facility] PATHWAY TO EXCELLENT CARE AFTER [...] 20 mg by mouth every morning 2 biotin 1 mg capsule Take 1 Caplet by mouth every morning 0 cholecalciferol (VITAMIN D-3) 1,000 unit Take 1,000 [...] H&P Notes * Marquis Kirby MD - 11/24/2019 2:27 PM CDT I have reviewed the H&P, examined the patient, and endorse the findings as written. Plan of Care : Based on the above findings, I consider Doc Emery to be an acceptable risk for : Procedure(s): INJECTION BOTOX 300 UNITS CYSTOSCOPY Source Note - Maryanne Kline NP - 11/19/2019 10:37 AM CDT Images from the original note were not included. Center for Preoperative Assessment and Planning Preoperative Evaluation Record Evaluation type/location: TPAP from [facility] Planned procedure site: [facility] PVT OR (Pod 1) Date: 11/19/19 NOTE: This note represents a preoperative evaluation initiated via telephone interview. NO PHYSICALEXAM was performed at the time of initial assessment. A physical exam may be added to this note anddocumented below. Anesthesia Evaluation Doc Emery is a 54 y.o. male Procedure(s): INJECTION BOTOX 300 UNITS CYSTOSCOPY Pre-Op Diagnosis Codes: * Neurogenic bladder [N31.9] HISTORY HPI oDc Emery is a 53 y.o. male who [...] UTI in the last year, currently asymptomatic and culture neg 11/14/2019) - UTI. + Eye disorder (unsure which [...] out of6. Functional capacity is 6-10 METs. Obstructive sleep apnea (ROSALINDA) screening status is pending day of surgery neck circumference. Blood bank needs for day of procedure: No type and screen needed Pending labs/tests include: DOS BMP. Covid 19. Patient with No known exposure to COVID19 and no concerning symptoms of COVID19. Plan for pre-procedure COVID19 testing: Surgery date greater than 3 days from today. Pre-procedure COVID19 testing scheduled to be performed on 11/21/2019 at the [facility]. . 11/14/2019 CULTURE, URINE, ROUTINE ? Micro Number: ?[id number] ?? Test Status: ? Final ?? Specimen Source: ?? URINE ?? Specimen Quality: ??Adequate ?? Result: ?Multiple organisms present, each less than 10,000 ?CFU/mL. These organisms, commonly found on ?external and internal genitalia, are considered ?to be colonizers. No further testing performed. This assessment was performed via telephone. Therefore the physical exam has been deferred to the day of surgery team. The patient was provided with preoperative instructions for their medications. The patient was instructed to shower/bathe the night prior and the morning of the planned procedure using an antibacterial soap. Patient instructions were provided in writing sent via [employer] mail and telephone. Patient verbalized understanding of preoperative plan. patient is worried his surgery could be cancelled if he does not take his losartan and hctz the day of surgery. Patient has had no readings of BP over 150/90 and he is very physically active. We discussed the BP parameters that would delay/cancel a surgery, as well as why those meds are asked to be withheld. Patient was advised to take his felodipine the morning of surgery as usual. He verbalizes understanding and will continue to monitor his BP at home and call his PCP if there are any unusual readings. TPAP process complete. Preoperative evaluation performed by Maryanne Kline NP on 11/19/19 at 10:41 AM. . Patient Active Problem List Diagnosis [...] Past Surgical History: Procedure Laterality Date ??? CYSTOSCOPY with botox injection; receives every 6 months ??? FACET BLOCK LUMBAR SACRAL 1 LEVEL LEFT Left 09/12/2019 No Known Allergies Med List Status: Nurse Complete Set By: Alexander Harris RN at 11/19/2019 10:15 AM Taking? Last Dose Start Date End Date Provider ALPRAZolam (XANAX) 0.25 mg tablet 06/27/18 -- Historical Provider, atorvastatin (LIPITOR) 20 mg tablet -- -- Historical Provider, biotin 1 mg capsule -- -- Historical Provider, cholecalciferol (VITAMIN D-3) 1,000 unit -- -- Historical Provider, EDEX 20 mcg injection 06/11/19 -- Historical Provider, felodipine (PLENDIL) 5 mg 24 hr tablet 07/19/07 -- Historical Provider, hydroCHLOROthiazide (HYDRODIURIL) 25 mg tablet -- -- Historical Provider, losartan (COZAAR) 100 mg tablet -- -- Historical Provider, POTASSIUM CHLORIDE ER 20 mEq CR tablet 04/23/18 -- Historical Provider, No current facility-administered medications for this encounter. Current Outpatient Medications: ??? ALPRAZolam (XANAX) 0.25 mg tablet ??? atorvastatin (LIPITOR) 20 mg tablet ??? biotin 1 mg capsule ??? cholecalciferol (VITAMIN D-3) 1,000 unit ??? EDEX 20 mcg injection ??? felodipine (PLENDIL) 5 mg 24 hr tablet ??? hydroCHLOROthiazide (HYDRODIURIL) 25 mg tablet ??? losartan (COZAAR) 100 mg tablet ??? POTASSIUM CHLORIDE ER 20 mEq CR tablet Social History Tobacco Use Smoking Status Never Smoker Smokeless Tobacco Never Used Substance and Sexual Activity Alcohol Use Yes ??? Alcohol/week: 21.0 standard drinks ??? Types: 21 Glasses of wine per week Substance and Sexual Activity Drug Use No [...] for requested labs within last 720 hours. documented in this encounter Miscellaneous Notes * Perioperative Nursing Note - Madiha Turner RN - 11/24/2019 6:30 PM CDT Patient self-catheterized before discharge per home routine. Per MD, patient to call if he can't void 8 hrs after recovery. Patient IV removed. Discussed discharge instructions; no questions at this time. Instructed to call if any patient has questions. All patient belongings sent with patient/wifeupon discharge home. Escorted via wheelchair by RN. * Perioperative Nursing Note - Madiha Turner RN - 11/24/2019 5:41 PM CDT Per surgical MD (Agustin), pt does not need to void before discharge. Patient to call if he does not void within 8 hrs. * Op Note - Marquis Kirby MD - 11/24/2019 3:10 PM CDT Date of Surgery: November 24, 2019 Preoperative diagnosis: neurogenic bladder with detrusor overactivity Post-operative diagnosis: neurogenic bladder with detrusor overactivity Procedure: Cystoscopy, injection of 300 units of onabotulinumtoxinA (Botox) into the bladder Surgeon: Marquis Kirby MD Marine Engineering Teacher: Eleno Judd MD Anesthesia: General Complications: None Estimated blood loss: None Specimen: None Indication for surgery: Patient has neurogenic bladder with detrusor overactivity, and is here for Botox injection into the bladder to treat urinary incontinence. Patient uses 300 units of Botox intothe bladder, and typically lasts about 5 months or so. I have discussed with patient in detail [...] Marquis Kirby, was present throughout the surgery. * Brief Op Note - Marquis Kirby MD - 11/24/2019 3:10 PM CDT Operative Progress Note Surgical Team: Surgeon(s) and Role: * Marquis Kirby MD - Primary Anesthesiologist: Rodger Purvis MD POLICY ADVISER: Francine Goode CRNA * No surgical staff found * DATE OF SURGERY : 11/24/2019 Preoperative Diagnosis: Pre-op Diagnosis * Neurogenic bladder [N31.9] Postoperative Diagnosis: Post-op Diagnosis * Neurogenic bladder [N31.9] Procedure(s): Procedure(s) (LRB): INJECTION BOTOX 300 UNITS (N/A) CYSTOSCOPY (N/A) Operative Findings: Bladder mucosa looks normal Estimated Blood Loss: No blood loss documented. Intraoperative Fluids: See anesthesia record for mls Specimens: No specimen collected in procedure Implants: Nothing was implanted during the procedure Blood/Blood Products Transfused: 0 mls Complications: None Condition on Discharge from the operating room was stable Juice Kirby MD Date: 11/24/2019 Time: 4:48 PM TEACHING ATTESTATION : I was present and directly participated in the entire procedure (including opening and closing). * Pre-Procedure Instructions - Maryanne Kline NP - 11/19/2019 11:00 AM CDT [facility] Preoperative Assessment and Planning CPAP Clinic Location: [place] The night before your surgery: * Do not eat or drink anything after midnight. This includes candy, mint, gums, chewable antacids (TUMS, Rolaids) and cough drops The morning of your surgery: * You may brush your teeth and rinse your mouth out. * Do not wear jewelry, body piercings, makeup, hairpins, false eyelashes or contact lenses to the hospital. * Leave any valuables at home or with your family. You may want to bring a credit card if you want to use our Mobile Pharmacy for your discharge medications. If you have an implantable device with [...] ??? ALPRAZolam (XANAX) 0.25 mg tablet Take the night before surgery per usual schedule ??? atorvastatin (LIPITOR) 20 mg tablet Take morning of surgery ??? biotin 1 mg capsule Don't take on day of surgery ??? cholecalciferol (VITAMIN D-3) 1,000 [...] of surgery General Instructions For Medications: ?? If prescribed a non-steroidal anti-inflammatory such as Celebrex, Meloxicam, or Naproxen by yoursurgeon, take as prescribed prior to surgery and discontinue all other non-steroidal anti-inflammatory medications such as excedrin, motrin, advil, ibuprofen, naproxen, aleve, meloxicam, celebrex, and celecoxib 5 days prior to surgery ?? If undergoing a neurological or spine procedure, stop all of these medications 5 days prior to your surgery: excedrin, motrin, advil, ibuprofen, aleve, naproxen, meloxicam, celebrex, celecoxib. ?? Stop all of these medications 7-14 [...] before surgery * Perioperative Nursing Note - Alexander Harris RN - 11/19/2019 10:25 AM CDT Center for Preoperative Assessment and Planning Perioperative Nursing Note Telephone Preoperative Evaluation ([facility]) - TELEPHONE ONLY, NO PHYSICAL EXAM Date: 11/19/19 Vitals: 11/19/19 1015 Weight: 81.6 kg (180 lb) Height: 177.8 cm (5' 10 ) CHEST CIRCUMFERENCE: Social History Tobacco Use Smoking Status Never Smoker Smokeless Tobacco Never Used Substance and Sexual Activity Alcohol Use Yes ??? Alcohol/week: 21.0 standard drinks ??? Types: 21 Glasses of wine per week Substance and Sexual Activity Drug Use No Outpatient Medications Marked as Taking for the 11/24/19 encounter (Hospital Encounter) with Marquis Kirby MD Medication Sig Dispense Refill ??? ALPRAZolam (XANAX) 0.25 mg tablet Take 0.5 mg by mouth nightly as needed 1 ??? atorvastatin (LIPITOR) 20 mg tablet Take 20 mg by mouth every morning ??? biotin 1 mg capsule Take 1 Caplet by mouth every morning ??? cholecalciferol (VITAMIN [...] No Wound (LDAs) Type of Wound (LDA): (PATIENT DENIES) SCREENINGS Richardson Fall Risk Score (Retired): 15 Is someone currently physically or emotionally hurting you or your family?: Denies NUTRITION PATIENT CARE PLANNING Advance Directives (For Healthcare) Advance Directive: Patient has advance directive, copy not in chart Communication/Color Print Inspector Needs Communication Needs: None Assistive Devices/DME: Eyeglasses Discharge Planning Type of Residence: Private residence Living Arrangements: Spouse/significant other Support Systems: Spouse/significant other( WILL BE TIME STUDY STATISTICIAN AND HELPER) Patient expects to be discharged to:: Private residence ADDITIONAL COMMENTS/ FOLLOW UP SETUP TO DO COVID TEST ON 11/21/19 AT [facility] * Pre-Procedure Instructions - Alexander Harris RN - 11/19/2019 10:20 AM CDT PRE-SURGICAL INSTRUCTIONS ??? General Information ?? [...] insurance card, a photo ID (like a Senior Application Software Engineer's license) and a method of payment for [...] or department store or come by our [facility] clinic and we will give it to [...] have someone help you with your shower. Rinse thoroughly and dry yourself off with [...] hair products the morning of the surgery. ??? If your surgeon's office has not notified you of your surgery time by NOON THE DAY BEFORE your surgery, please call [phone] and ask for your surgeon's office DR KIRBY documented in this encounter Plan of Treatment Not on file documented as of this encounter Procedures Procedure Name Priority Date/Time Associated Diagnosis Comments CYSTOSCOPY 11/24/2019 4:59 PM CDT Neurogenic bladder Case Notes COVID Special Needs 200 UNITS OF BOTOX TO BE MIXED WITH 20 CC NORMAL SALINE IN OR; CHERELLE NEEDLE FOR INJECTION INJECTION BOTOX 11/24/2019 4:59 PM CDT Neurogenic bladder Case Notes COVID Special Needs 200 UNITS OF BOTOX TO BE MIXED WITH 20 CC NORMAL SALINE IN OR; CHERELLE NEEDLE FOR INJECTION BASIC METABOLIC PANEL STAT 11/24/2019 4:10 PM CDT documented in this encounter Results * Basic metabolic panel (11/24/2019 4:10 PM CDT) Sodium 137 135 - 145 mmol/L [facility] Potassium, pl 4.0 3.3 - 4.9 mmol/L [facility] Chloride 99 97 - 110 mmol/L [facility] CO2 26 22 - 32 mmol/L [facility] Anion gap 12 2 - 15 mmol/L [facility] BUN 12 8 - 25 mg/dL [facility] Creatinine 0.87 0.80 - 1.30 mg/dL [facility] Glucose 109 70 - 199 mg/dL [facility] Comment: Interpretive Data Fasting glucose >/= 126 mg/dl is diagnostic for diabetes. ?? Fasting is defined as no caloric intake for at least 8 hours. Fasting glucose between 100 mg/dl to 125 mg/dl is diagnostic of prediabetes. In a patient with classic symptoms of hyperglycemia or hyperglycemic crisis, a random glucose >/= 200 mg/dl is diagnostic for diabetes. In the absence of unequivocal hyperglycemia, results should be confirmed by repeat testing. The classification and Diagnosis of Diabetes Diabetes Care 2017;40 (Suppl. 1):S11. Current interpretive data was last revised 2017. Calcium 10.1 8.5 - 10.3 mg/dL [facility] Blood specimen (specimen) 11/24/2019 4:10 PM CDT 11/24/2019 4:31 PM CDT us Maryanne Kline NP LAB BLOOD ORDERABLES Final Re sult [facility] Department [place] [address] documented in this encounter Visit Diagnoses Diagnosis Neurogenic bladder- Primary Neurogenic bladder, NOS documented in this encounter Admitting Diagnoses Diagnosis Neurogenic bladder Neurogenic bladder, NOS documented in this encounter Administered Medications Inactive Administered Medications - up to 3 most recent administrations Medication Order MAR Action Action Date Dose Rate Site Lactated Ringer's (LR) infusion 30 mL/hr, intravenous, Continuous, Starting on Sun11/24/19 at 1645, Pre-Op New Bag 11/24/2019 4:20 PM CDT 30 mL/hr 30 mL/hr lidocaine PF (XYLOCAINE) 10 mg/mL (1 %) preservative free injection 2-10 mg 2-10 mg (0.2-1 mL), other, Once as needed, pain with IV placement, Starting on Sun11/24/19 at 1600, For 1 dose, Pre-Op, Administer volume needed to infiltrate IV site. sodium chloride 0.9% flush 0.5-20 mL 0.5-20 mL, intra-catheter, As needed, line care, Starting on Sun11/24/19 at 1601, Pre-Op, Flush volume based on line type and size. Flush before and after each use. documented in this encounter Historical Medications * This list may reflect changes made after this encounter. cholecalciferol (VITAMIN D-3) 1,000 unit Take 1,000 Units by mouth every morning 11/07/2021 biotin 1 mg capsule Take 1 Caplet by mouth every morning 02/17/2020 added in this encounter Active and Recently Administered Medications Times are shown in CDT. Continuous Medication Order 11/22/2019 11/23/2019 11/24/2019 Lactated Ringer's (LR) infusion (CANCELED) 30 mL/hr, intravenous, Continuous, Starting on Sun11/24/19 at 1645, Pre-Op 1620 (New Bag - Prov ider: Raven Elias RN)1720 (Stopped - Provider: Katya Bryant CRNA) PRN Medication Order 11/22/2019 11/23/2019 11/24/2019 fentaNYL (SUBLIMAZE) preservative free injection 50 mcg 50 mcg, intravenous, Once as needed, uncontrolled pain on PACU admission, Starting on Sun11/24/19 at 1744, For 1 dose, Phase I, Then proceed to PACU 1st line analgesic., Indications: Pain HYDROmorphone (DILAUDID) injection 0.2 mg 0.2 mg, intravenous, Administer over 2 Minutes, Every 10 min PRN, 1st line for pain, Starting on Sun11/24/19 at 1744, Phase I, Switch to 2nd line analgesic order if pain is uncontrolled or increasing after 2 doses. Notify Anesthesiologist if total PACU dose reaches 2 mg and pain score 5/10 or more., Indications: Pain HYDROmorphone (DILAUDID) injection 0.4 mg 0.4 mg, intravenous, Administer over 2 Minutes, Every 10 min PRN, 2nd line for pain, Starting on Sun11/24/19 at 1744, Phase I, May administer 10 mintes after 2nd dose of 1st line analgesic agent for uncontrolled or increasing pain. Revert to 1st line dose if POSS of 3. Notify Anesthesiologist if total PACU dose reaches 2 mg and pain score 5/10 or more., Indications: Pain lidocaine PF (XYLOCAINE) 10 mg/mL (1 %) preservative free injection 2-10 mg 2-10 mg (0.2-1 mL), other, Once as needed, pain with IV placement, Starting on Sun11/24/19 at 1600, For 1 dose, Pre-Op, Administer volume needed to infiltrate IV site. naloxone (NARCAN) 0.4 mg/mL injection 0.04-0.4 mg 0.04-0.4 mg, intravenous, Once as needed, other, excessive sedation/respiratory depression, Starting on Sun11/24/19 at 1744, For 1 dose, Phase I, Dilute 0.4 [...] chloride 0.9% (CANCELED) As needed, Starting on Sun11/24/19 at 1710, Intra-Op 1710 (Given - Provid er: Eleno Judd MD) ondansetron (ZOFRAN) injection 4 mg 4 mg, intravenous, Administer over 2 Minutes, Once as needed, nausea, vomiting, Starting on Sun11/24/19 at 1744, For 1 dose, Phase I, Proceed to prochlorperazine if ondansetron has been given within the last 6 hours. prochlorperazine (COMPAZINE) injection 10 mg 10 mg, intravenous, Administer over 2 Minutes, Once as needed, nausea, vomiting, Starting on Sun11/24/19 at 1744, For 1 dose, Phase I, If nausea/vomiting not relieved by ondansetron within 30 minutes or if ondansetron has been given within the last 6 hours. sodium chloride 0.9 % irrigation (CANCELED) As needed, Starting on Sun11/24/19 at 1707, Intra-Op 1707 (Given - Provid er: Eleno Judd MD)1710 (Given - Provider: Eleno Judd MD - Comment: ENDOSCOPIC IRRIGATION) sodium chloride 0.9% flush 0.5-20 mL 0.5-20 mL, intra-catheter, As needed, line care, Starting on Sun11/24/19 at 1601, Pre-Op, Flush volume based on line type and size. Flush before and after each use. documented in this encounter Orders Medications Ordered That Julio Cesar ht Not Have Been Administered Count Last Ordered Date First Ordered Date fentaNYL (SUBLIMAZE) preserv ative free injection 50 mcg 1 11/24/2019 HYDROmorphone (DILAUDID) injection 0.2 mg 1 11/24/2019 HYDROmorphone (DILAUDID) injection 0.4 mg 1 11/24/2019 lidocaine PF (XYLOCAINE) 10 mg/mL (1 %) preservative free injection 2-10 mg 1 11/24/2019 naloxone (NARCAN) 0.4 mg/mL injection 0.04-0.4 mg 1 11/24/2019 onabotulinumtoxin A (botulin um toxin type A, BOTOX) 200 unit/20 mL in sodium chloride 0.9% 1 11/24/2019 ondansetron (ZOFRAN) injection 4 mg 1 11/23 prochlorperazine (COMPAZINE) injection 10 mg 1 11/24/2019 sodium chloride 0.9 % irrigation 11/24/19 20 sodium chloride 0.9% flush 0.5-20 mL 06/2019 documented in this encounter Care Teams Adjuster Electrical Contacts Relationship Specialty Start Date End Date Mick Flowers MD PCP - General 05/14/17 documented as of this encounter
--- OUTSIDE RECORDS SUMMARY | 2024-06-29 00:31 | XMS_ITS | Encounter Summary ---
Author Organization [facility] Address [address] [place] [address] Phone Care Team Providers Care Water Pollution Control Inspector Name Role Phone Mick Flowers MD Primary Care Provider [phone] Encounter Details Date Type Department Care Team (Late st Contact Info) Description 02/20/2020 Telephone [facility] Scheduling [address] [place] [address] Kathy Baird CMA Social History Tobacco Use Types Packs/Day Years Used Date Smoking Tobacco: Never Smokeless Tobacco: Never Alcohol Use Standard Drinks/Week Comments Yes 21 (1 standard drink = 0.6 oz pu re alcohol) Sex and Gender Information Value Date Recorded Sex Assigned at Not on file 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 Gender Identity Not on file Sexual Orientation Not on file 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
--- OUTSIDE RECORDS SUMMARY | 2024-06-29 00:31 | XMS_ITS | Encounter Summary ---
Author Organization [facility] Address [address] [place] [address] Phone Care Team Providers Care Operations Specialists Name Role Phone Mick Flowers MD Primary Care Provider [phone] Reason for Referral * Diagnostic Imaging (Routine) - Closed Specialty Diagnoses / Procedures Referred By Contac t Referred To Contact Radiology Diagnoses Midline low back pain, unspecified chronicity, unspecified whether sciatica present Arthropathy of lumbosacral facet joint Procedures IR Facet Block Lumbar Sacral First Level Left Walter Rojas MD [address] [facility] [address] [place] [address] Phone: tel: fax: [facility] [address] [place] [address] Referral ID Status Reason Start Date Expiration Date Visits Re quested Visits Authorized [id number] Closed 04/22/2020 05/05/2020 1 1 Encounter Details Date Type Department Care Team (Late st Contact Info) Description 04/01/2020 Orders Only [facility] Orthopaedic Surgery [address] [place] [address] Walter Rojas MD [address] [facility] [address] [place] [address] Midline low back pain, unspecified chronicity, unspecified whether sciatica present (Primary Dx); Arthropathy of lumbosacral facet joint Social History Tobacco Use Types Packs/Day Years Used Date Smoking Tobacco: Never Smokeless Tobacco: Never Alcohol Use Standard Drinks/Week Comments Yes 21 (1 standard drink = 0.6 oz pu re alcohol) Sex and Gender Information Value Date Recorded Sex Assigned at Not on file Legal Sex Male 3:12 AM PATTERN GRADER CUTTER Gender Identity Not on file Sexual Orientation Not on file 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 ??Please refer to the physician's procedure / OR operative note. Walter Rojas MD IMG IR PROCEDURES Final Re sult Performing Organization Address City/State/[facility] Co de Phone Number [facility] documented in this encounter Visit Diagnoses Diagnosis Midline low back pain, unspecified chronicity, unspecified whether sciatica present- Primary Arthropathy of lumbosacral facet joint Lumbar spondylosis Lumbosacral spondylosis without myelopathy Arthropathy of lumbosacral facet joint documented in this encounter Care Teams Operations Specialists Relationship Specialty Start Date End Date Mick Flowers MD PCP - General 05/14/17 documented as of this encounter
--- OUTSIDE RECORDS SUMMARY | 2024-06-29 00:31 | XMS_ITS | Encounter Summary ---
Author Organization [facility] Address [address] [place] [address] Care Team Providers Care Roll Repairer Name Role Phone Mick Flowers MD Primary Care Provider [phone] Encounter Details Date Type Department Care Team (Late st Contact Info) Description 05/24/2020 Orders Only [facility] Testing Site - [address] [place] [id number] Marquis Lopez MD [address] [place] [address] Preop testing (Primary Dx) Social History Tobacco Use Types Packs/Day Years Used Date Smoking Tobacco: Never Smokeless Tobacco: Never Alcohol Use Standard Drinks/Week Comments Yes 21 (1 standard drink = 0.6 oz pu re alcohol) Sex and Gender Information Value Date Recorded Sex Assigned at Not on file Legal Sex Male 3:12 AM NEWSROOM INTERN Gender Identity Not on file Sexual Orientation Not on file 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 Date of Px/chemo/treatment/placement/transfer 05/31/2020 ?? Testing site patient will be sent to: [place], [place] ?? Date testing requested: 05/28/2020 ?? Testing: COVID-RNA ?? Does the patient currently work in a healthcare facility with direct patient contact? No ?? Is the patient a resident of a congregate care or living setting? No ?? Is the patient ? No ?? Please select the performing region: [facility] ROOM INTERN documented in this encounter Plan of Treatment Not on file documented as of this encounter Visit Diagnoses Diagnosis Preop testing- Primary Unspecified pre-operative examination documented in this encounter Care Teams Roll Repairer Relationship Specialty Start Date End Date Mick Flowers MD PCP - General 05/14/17 documented as of this encounter
--- OUTSIDE RECORDS SUMMARY | 2024-06-29 00:31 | XMS_ITS | Encounter Summary ---
Author Organization [facility] Address [address] [place] [address] Phone Care Team Providers Care Deputy Sheriff Name Role Phone Mick Flowers MD Primary Care Provider [phone] Encounter Details Date Type Department Care Team (Late st Contact Info) Description 05/17/2020 Orders Only [facility] Surgery [address] [place] [id number] Marquis Lopez MD [address] [facility] [address] [place] [address] Social History Tobacco Use Types Packs/Day Years Used Date Smoking Tobacco: Never Smokeless Tobacco: Never Alcohol Use Standard Drinks/Week Comments Yes 21 (1 standard drink = 0.6 oz pu re alcohol) Sex and Gender Information Value Date Recorded Sex Assigned at Not on file Legal Sex Male 3:12 AM CRUSHED STONE GRADER Gender Identity Not on file Sexual Orientation Not on file 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 Final ??Specimen Source: ?? URINE, CLEAN CATCH ??Specimen Quality: ??Adequate ??Result: ?Growth of mixed padmini was isolated, suggesting ? probable contamination. No further testing will ? be performed. If clinically indicated, ? recollection using a method to minimize ? contamination, with prompt transfer to Urine ? Culture Transport Tube, is recommended. ? Your request to have a duplicate copy faxed has been acknowledged. ?Queued to: ??[id number] 05/17/2020 1:40 PM CRUSHED STONE GRADER 05/17/2020 1:43 PM CRUSHED STONE GRADER us Marquis Lopez MD LAB MICROBIOLOGY - GENERAL ORD ERABLES Final Result Performing Organization Address City/State/[facility] Co de Phone Number [facility] [address] [place] [address] documented in this encounter Visit Diagnoses Not on filedocumented in this encounter Care Teams Deputy Sheriff Relationship Specialty Start Date End Date Mick Flowers MD PCP - General 05/14/17 documented as of this encounter
--- OUTSIDE RECORDS SUMMARY | 2024-06-29 00:31 | XMS_ITS | Encounter Summary ---
Author Organization [facility] Address [address] [place] [address] Phone Care Team Providers Care Concrete Smoother Name Role Phone Mick Flowers MD Primary Care Provider Encounter Details Date Type Department Care Team (Late st Contact Info) Description 02/17/2020 2:45 PM CDT Telemedicine [facility] Multiple Sclerosis [address] [place] [address] [phone] Cherry Minor MD [address] [place], [place] [id number] Multiple sclerosis (CMS/HCC) (Primary Dx); Neurogenic bladder; Abnormal gait; High risk medication use; meterman current use of diuretic Social History Tobacco Use Types Packs/Day Years Used Date Smoking Tobacco: Never Smokeless Tobacco: Never Alcohol Use Standard Drinks/Week Comments Yes 21 (1 standard drink = 0.6 oz pu re alcohol) Sex and Gender Information Value Date Recorded Sex Assigned at Not on file Legal Sex Male 3:12 AM FOREPART RASPER Gender Identity Not on file Sexual Orientation Not on file 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 on file Not on file documented as of this encounter Ordered Prescriptions Prescription Sig Dispense Quantity Refills Last Filled Start Date End Date baclofen (LIORESAL) 10 mg tabletIndications: Muscle Spasticity of Spinal Origin Take 1 tablet (10 mg total) by mouth 3 (three) times a day for 10 days 1 tab in evening for 2-3 nights, then slowly go to 3x/day as tolerated 30 tablet 02/17/2020 0 documented in this encounter Progress Notes * Cherry Minor MD - 02/17/2020 2:45 PM CDT This was a telemedicine visit with Marita Emery and Cecilia which took place via Real-time video connection (Ektron, Labfolderom or similar). During the visit, I was located at home office in the [facility] and the patient was located at home in [place]. The session started at 2:45pm and ended at 3:32pm. In addition to the time spent during the session with the patient, I spent 4 minutes preparing to see the patient, >1/2 the visit minutes counseling and educating the patient/family/caregiver, 8 minutes ordering medications, tests, or procedures, 0 minutes referring and communicating with other healthcare professional, 10 minutes documenting clinical information in the electronicor other health record, 0 minutes independently interpreting results and communicating the results to the patient/family/caregiver and 0 minutes on care coordination on the day of the visit. Total time spend on encounter on the day of the visit: 4+ 47+ 18 = 69 minutes. Review chart: 2:41- 2:45pm 2:45- 3:32pm - visit itself 3:32 to 3:50pm (18min) The patient has been informed that the visit may not be secure and acknowledged the information. It was explained to the patient they have the option of participating in a telephone or video visitduring the [address] emergency. After being given an opportunity [...] Name: MARITA EMERY Medical Record Number (MRN): [id number] Date of (): 1965 Encounter Date: 02/17/2020 Chief Complaint Marita Emery is a 54 y.o. male seen today for MS follow-up. He was in the [facility] longitudinal study. His Greer joined the video call. Pt was last seen on 10-08-18 by me. Some portions of this note were copied forward from our previousnote dated 10-08-18 and confirmed today at this visit and revised as appropriate. 02/17/2020 . Pt is on no DMT Results: Last Labs: No labs in our system. AFTER THE VISIT, I RECIVED LABS from 05/16/2019 OUTSIDE. CMP - WNL. In PARTICULAR, LFTS were normal, glucose 92, K+ 4.3 Last MRI: LAST regular MRI was Jul [...] measurements of DOMINIQUE (Mr Emery) in the [facility] longitudinal study. This patient belongs to the ppms group. He was relatively stable in clinical [...] 3.263 14.17 18.21 21.05 13.30 22.28 17.26 We went over the above data on the visit. I pointed out the two potential areas of concern - the dominant (right) hand slowed 9HPT (but still WNL), and the increasing lesion volume over time. Both are bolded in above table. HPI Interim: *Has noted two things:Trips easily going down stairs. Rt leg is the culprit. Has tripped badly twice. Walks for exercise, and rt leg drags after walking a couple of miles. He continues to self -cath, and he also gets BOTOX injections q 6months which he likes. He has stiff legs, per Cecilia. Both legs are stiff. He has not tried baclofen and is now interested in trying it. He has also not ever tried Zanaflex (Tizanidine). Has not had recent BW. We went through all his meds. I learned he is NOT taking the K+ supplement prescribed by his PCP. He continues to drink cocktails daily, and has used MJ gummies. Has noted numbness in median sides of both hands when biking and with his wrists over-flexed holding handle-bars. That is the only time he notes that to occur. Neurological History: Mr. Emery is a former [place] worker in [employer] and has lived in [place] and [place], [place]. He is Rt handed. 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 ??He is on Ampyra 10 mg BID for gait; but no disease- modifying therapy. Has had MS since 1989 (age 24). First symptom was bladder related. Urgency and Frequency. No UTIs. No Family History of MS (3 children - college age). He reports that it took 6 months to figure out the diagnosis. Diagnosis: LP (abnormal), MRI. Diagnosis made when in [place]. 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 MS for >25 years. In fact, pt states his first MS doctor was Dr Usman Rosenbaum. He was a former patient of Dr. Betzaida Warren. Pt reports only a slowly downhill course. He has had some slow downhill progression of worsening vision OD. Has not ever taken baclofen or tizanidine. ? Leg dragging got better since on Ampyra. However he stopped it and did not see a difference. He is in an MRI study; had an MRI done in 2014 and is scheduled for the next MRI 09/02/2015. ??The brain MRIs are done w/o contrast. ??He doesn't report any new findings. He now is on bladder botox, and does ISC multiple (~ 15x) X/day. No bowel issues. Does have sexual dysfunction and uses EDEX for this. Followed by Dr. Juice Lopez for these issues (bladder &??sexual dysfunction). No depression and denies cognitive problems or fatigue. Not excessive. ? No Known Allergies Current Outpatient Medications: ??? ALPRAZolam (XANAX) 0.25 mg tablet, Take 0.5 mg by mouth nightly as needed , Disp: , Rfl: 1 ??? atorvastatin (LIPITOR) 20 mg tablet, Take 20 mg by mouth every morning , Disp: , Rfl: ??? baclofen (LIORESAL) 10 mg tablet, Take 1 tablet (10 mg total) by mouth 3 (three) times a day for 10 days 1 tab in evening for 2-3 nights, then slowly go to 3x/day as tolerated, Disp: 30 tablet, Rfl: 0 ??? cholecalciferol (VITAMIN D-3) 1,000 unit, Take 1,000 Units by mouth every morning, Disp: , Rfl: ??? EDEX 20 mcg injection, 20 mcg by intracavity route as needed , Disp: , Rfl: ??? [...] SACRAL 1 LEVEL LEFT Left 09/12/2019 ??? SHOULDER ARTHROSCOPY Left Family History Problem Relation Age of Onset [...] Substance Use Topics ??? Alcohol use: Yes Alcohol/week: 21.0 standard drinks Types: 21 Glasses of wine per week ??? Drug use: No Vital Signs There were no vitals taken for this visit. Review of Systems A 12 point review of systems has NOT been performed except per here, chief complaint or HPI. Denieschest pain. Exam 02-17-2020: Neurological Exam: Mental Status: Orientation was normal to time, place and self. Speech and Language are normal. Attention span and concentration normal. Fund of knowledge normal. Cranial Nerves: CN II VA: ND (video). CN III, IV, : Extraocular motility was intact. No nystagmus. No NIURKA. CN V: Facial sensation intact to his touch. CN VII: Muscles of facial expression were strong and symmetric. CN VIII: Hearing was ND. CNXI: Trapezius normal and symmetrical. CN XII: Tongue protrudes midline. Motor: No involuntary movements. +/- RUE pronator drift. No orbiting. FFMs are excellent in RUE, and slower in LUE (but is RH). Individual muscle testing not done, but readily rises from chair, and when stands on tiptoes the right heel goes consistently HIGHER. Reflexes: ND - video. Coordination: Finger to nose normal. Heel to gomez normal. Tandem normal x multiple steps. Sensation: Intact to His light touch all 4. Romberg -negative. No sway. Gait: Normal station and gait. Tiptoe walk intact. Tandem walk normal for 6+ steps. Hops 10x on each leg. To me, they appear symmetrical but he says far easier with LLE than RLE. Other: Reverse Phalens sign - maybe positive per patient. Bilat. Neurologic Exam 10-08-2018; Walk Aid: ??none ?? General: ??MARITA ??GISSELL is a well-developed, well-nourished male in no acute distress. ??The moodis normal. ??There is no pedal edema. ? Neurologic Mental Status: ??He is awake, alert and oriented. ??Speech is fluent and he follows commands without difficulties. ?? Cranial Nerves: Vision: ??20/20 O.D. ??20/13 O.S. ??Wall Chart. ?There is no red desaturation Funduscopic - clearcut temporal pallor OD, not OS. No APD. Pupils are O.D./O.S.: ??2/2 -->??1/1. ??Extraocular movements are full. ?There is no nystagmus. ?NIURKA is not present. Facial sensation is intact to light touch/temp. ??The face is symmetric. ?There is no dysarthria. ??Shoulder shrug is equal. ?? Tongue movements are normal. ?? Motor Examination: ??In [...] 5/5 bilat. There is no postural tremor. ?? Sensation: ??There is no Lhermitte's. Vibratory sensation in the right great toe is mildly decreased. Vibratory sensation in the left great toe is mildly decreased. ??Romberg is negative. ?? Coordination: ??Finger to nose is normal. ??Rapid alternating movements are normal. ??Pvsj-limw-zkgh is normal. Rhythmic toe tapping - normal. [...] in UEs are hyper throughout. Today, no asymmetry except at the ankles, where has4+_ (Clonus) in right ankle, 3+ in left. In Kness, 3++ at knees bilaterally with unequivocal right UPgoing toes, left mute. We did 25FTW today, and compared to 01-07-2018 when last seen in the studyL In , was 4.6 sec and 4.1 sec (no assistance). Today, was 4.07sec and 3.98 sec (no assist). So, no worsening. ?? OCT - mild temporal thinning OD - PRIOR visits (not 2019) EDSS on 02-17-2020: Still : 4.0 based on bladder ?? Counseling and Education We discussed the pros/cons of the B-cell depleting monoclonal antibodies (Abs), including ocrelizumab (Ocrevus) for PPMS, and the pros/cons, including potential reduced responses to vaccines, and infections and also possible cancer risk increase. These are IV infusions performed every 6 months at a certified infusion center. These monoclonal antibodies are very similar; ocrelizumab is fully humanized monoclonal Ab. ?? Ocrelizumab has been approved for primary progressive MS since August 2016. We discussed that Ocrelizumab slowed progression by ~ 25% compared to placebo in primary progressive MS. Rituximab is sometimes used off-label, as well. We discussed pros/cons of trying the symptomatic agent baclofen for his stiff legs when walking. Hewill try it. We discussed COVID-19 precautions, and that he might have a worse than expected outcome due to his comorbidities of hypertension and hyperlipidemia, plus he is male. Assessment/Plan Diagnosis Plan 1. Multiple sclerosis (CMS/HCC) CBC with auto differential Comprehensive metabolic panel CBC with auto differential Comprehensive metabolic panel MRI MS Brain 3T Protocol W WO Contrast MRI Cervical Spine W WO Contrast 2. Neurogenic bladder 3. Abnormal gait MRI MS Brain 3T Protocol W WO Contrast MRI Cervical Spine W WO Contrast 4. High risk medication use 5. meterman current use of diuretic Comprehensive metabolic panel Comprehensive metabolic panel Assessment & Plan: Probable slow (very slow) downhill progression. No symptoms he mentioned today are new compared to my prior visits with him, but he feels slowly worsening. Spasticity of gait per patient and his (I could not see it when examining him via video, but their description sound correct). Has not tried baclofen so I will order it for him. [facility] on [address] in [place]. Possible median nerve impingement when he dorsiflexes his wrists when biking. Doesn't sound like any other time, per his report. Has not had a MRI in quite some time - will order this. He will discontinue the biotin I had suggested that he take, as the trial of high dosed biotin in progressive MS failed. There are no Patient Instructions on file for this visit. >50% of the time was spent counseling and/or coordinating care as per above note. Discussion and decision making was of high-complexity due to the patient's high risk condition, multiple co-morbidities, neuropsychological co-morbidities, cognitive problems, and/or multiple sites of involved disability. The recommended medications are potentially of high risk consequence in theirside effects. Cherry Minor MD Professor of Neurology [facility] Department of Neurology [facility] ; documented in this encounter Plan of Treatment Not on file documented as of this encounter Procedures Procedure Name Priority Date/Time Associated Diagnosis Comments CBC WITH AUTO DIFFERENTIAL Routine 03/15/2020 11:14 AM CDT Multiple sclerosis (CMS/HCC) COMPREHENSIVE METABOLIC PANEL Routine 03/15/2020 11:14 AM CDT Multiple sclerosis (CMS/HCC) meterman current use of diuretic documented in this encounter Results * Comprehensive metabolic panel (03/15/2020 11:14 AM CDT) Pathologist [facility] Glucose 97 65 - 99 mg/dL [facility] Comment: ? Fasting reference interval BUN 12 7 - 25 mg/dL [facility] Creatinine 0.73 0.70 - 1.33 mg/dL [facility] Comment: For patients >49 years of age, the reference limit for Creatinine is approximately 13% higher for people identified as -[place] Island[place]. eGFR NON-AFR. CITIZEN OF [place] 104 > OR = 60 mL/min/1 .73m2 [facility] EGFR 121 > OR = 60 mL/min/1 .73m2 [facility] BUN/creat ratio NOT APPLICABLE 6 - 22 (calc) [facility] Sodium 136 135 - 146 mmol/L [facility] Potassium, pl 4.2 3.5 - 5.3 mmol/L [facility] Chloride 100 98 - 110 mmol/L [facility] CO2 28 20 - 32 mmol/L [facility] Calcium 10.0 8.6 - 10.3 mg/dL [facility] Protein, sr 7.0 6.1 - 8.1 g/dL [facility] Albumin 4.5 3.6 - 5.1 g/dL [facility] GLOBULIN 2.5 1.9 - 3.7 g/dL (calc) [facility] Alb/glob ratio 1.8 1.0 - 2.5 (calc) [facility] Bilirubin, total 0.7 0.2 - 1.2 mg/dL [facility] Alk phos 102 35 - 144 U/L [facility] AST 25 10 - 35 U/L [facility] ALT (SGPT) 29 9 - 46 U/L [facility] Blood specimen (specimen) 03/15/2020 11:14 AM CDT 03/15/2020 11:15 AM CDT Cherry Minor MD LAB BLOOD ORDERABLES Final Resu lt Performing Organization Address City/[facility]/ZIP Co de Phone Number QUEST [facility] [address] [phone] * CBC with auto differential (03/15/2020 11:14 AM CDT) WBC 3.9 3.8 - 10.8 Thousand/u L [facility] RBC, POC 4.75 4.20 - 5.80 Million/uL [facility] Hgb 14.8 13.2 - 17.1 g/dL [facility] Hct 44.0 38.5 - 50.0 % [facility] MCV 92.6 80.0 - 100.0 fL [facility] MCH 31.2 27.0 - 33.0 pg [facility] MCHC 33.6 32.0 - 36.0 g/dL [facility] Rdw 12.8 11.0 - 15.0 % [facility] Platelets 201 140 - 400 Thousand/u L [facility] MPV 11.4 7.5 - 12.5 fL [facility] Neutrophils, abs 2,016 1,500 - 7,800 cells/uL [facility] Lymphocytes, abs 1,186 850 - 3,900 cells/uL [facility] Monocyte abs 441 200 - 950 cells/uL [facility] Eosinophils, abs 218 15 - 500 cells/uL [facility] Basophils, abs 39 0 - 200 cells/uL [facility] Neutrophils 51.7 % [facility] Lymphocyte pct 30.4 % [facility] Monocytes 11.3 % [facility] Eosinophils 5.6 % [facility] Basophils 1.0 % [facility] Blood specimen (specimen) 03/15/2020 11:14 AM CDT 03/15/2020 11:15 AM CDT us Cherry Minor MD LAB BLOOD ORDERABLES Final Resu lt Performing Organization Address City/[facility]/ZIP Co de Phone Number [facility] [address] [phone] documented in this encounter Visit Diagnoses Diagnosis Multiple sclerosis (HCC)- Primary Multiple sclerosis Neurogenic bladder Neurogenic bladder, NOS Abnormal gait Abnormality of gait High risk medication use USP current use of diuretic documented in this encounter Discontinued Medications Medication Sig Discontinue Reason Start Date End Da te biotin 1 mg capsule Take 1 Caplet by mouth every morning Therapy completed 02/17/2020 documented as of this encounter Care Teams Concrete Smoother Relationship Specialty Start Date End Date Mick Flowers MD PCP - General 05/14/17 documented as of this encounter
--- OUTSIDE RECORDS SUMMARY | 2024-06-29 00:31 | XMS_ITS | Encounter Summary ---
Author Organization [facility] Healthcare Address [address] [place] [address] Care Team Providers Care Guest Relations Manager Name Role Phone Mick Flowers MD Primary Care Provider [phone] Encounter Details Date Type Department Care Team (Late st Contact Info) Description 11/24/2019 3:10 PM CDT - 11/24/2019 4:25 PM CDT Surgery [facility] Operating Room [address] [place] [phone] Marquis Kirby MD [address] [facility] [address] [place] [address] INJECTION BOTOX 300 UNITS Surgery Details Date/Time Status Location OR Service Patient Class Case Cl ass Case Type Trauma Case? 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 Contact your doctor if: - Fever over 100.8 - Pain uncontrolled by prescribed medications - Nausea/vomiting - Blood clots (solid blood chunks) in urine - Difficulty voiding - Sunday through Sunday, 8 AM to 4:30 PM, call [phone] and ask for a member of your doctor's team. - After 4:30 PM during the week, on weekends and holidays, call [phone] and ask to have the Urology Periodicals Library Assistant Physician paged for you. * Attachments The following attachments cannot be sent through Care Everywhere. * [facility] PATHWAY TO EXCELLENT CARE AFTER SURGERY documented [...] Preoperative Evaluation Record Evaluation type/location: TPAP from [facility] Planned procedure site: [facility] PVT OR (Pod 1) Date: 11/19/19 NOTE: [...] negatives: CAD (denies, noted in history items); MA ; CABG ; systolic/diastolic dysfunction w/o CHF [...] scheduled to be performed on 11/21/2019 at [facility]. . 11/14/2019 CULTURE, URINE, ROUTINE ? Micro Number: ?[id number] ?? Test Status: ? Final ?? Specimen [...] instructions were provided in writing sent via [email or web address] mail and telephone. Patient verbalized understanding of [...] into the bladder Surgeon: Marquis Kirby MD Investor Relations Associate: Eleno Judd MD Anesthesia: General Complications: None [...] MD - Primary Anesthesiologist: Rodger Purvis MD HADOOP JAVA DEVELOPER: Francine Goode CRNA * No surgical staff [...] Preoperative Assessment and Planning CPAP Clinic Location: [facility] The night before your surgery: * [...] Planning Perioperative Nursing Note Telephone Preoperative Evaluation ([facility]) - TELEPHONE ONLY, NO PHYSICAL EXAM Date: [...] has advance directive, copy not in chart Communication/Portfolio Management Marketing Needs Communication Needs: None Assistive Devices/DME: Eyeglasses Discharge Planning Type of Residence: Private residence Living Arrangements: Spouse/significant other Support Systems: Spouse/significant other( WILL BE [employer]LEVARD GLASSWARE REPLACER AND HELPER) Patient expects to be discharged [...] insurance card, a photo ID (like a Expansion Joint Builder's license) and a method of payment for [...] or department store or come by our [facility] clinic and we will give it [...] THE DAY BEFORE your surgery, please call [phone] and ask for your surgeon's office DR [...] Basic metabolic panel (11/24/2019 4:10 PM CDT) [facility] Sodium 137 135 - 145 mmol/L [facility] Potassium, pl 4.0 3.3 - 4.9 mmol/L [facility] Chloride 99 97 - 110 mmol/L [facility] CO2 26 22 - 32 mmol/L [facility] Anion gap 12 2 - 15 mmol/L [facility] BUN 12 8 - 25 mg/dL [facility] Creatinine 0.87 0.80 - 1.30 mg/dL [facility] Glucose 109 70 - 199 mg/dL [facility] Comment: Interpretive Data Fasting glucose >/= 126 [...] 2017. Calcium 10.1 8.5 - 10.3 mg/dL [facility] Blood specimen (specimen) 11/24/2019 4:10 PM CDT 11/24/2019 4:31 PM CDT us Maryanne Kline NP LAB BLOOD ORDERABLES Final Re sult [facility] [place] [address] documented in this encounter Visit Diagnoses Diagnosis [...] Administer volume needed to infiltrate IV site. onabotulinumtoxin A (botulinum toxin type A, BOTOX) 200 unit/20 mL in sodium chloride 0.9% As needed, Starting on Sun11/24/19 at 1710, Intra-Op Given 11/24/2019 5:10 PM CDT 30 mL sodium chloride 0.9 % irrigation As needed, Starting on Sun11/24/19 at 1707, Intra-Op Given 11/24/2019 5:10 PM CDT 3,000 mL Surgical Site Given 11/24/2019 5:07 PM CDT 1,000 mL Lozano rgical Site sodium chloride 0.9% flush 0.5-20 mL [...] Intra-Op 1707 (Given - Provid er: Eleno Jdud MD)1710 (Given - Provider: Eleno Judd MD [...] 0.4 mg/mL injection 0.04-0.4 mg 1 11/24/2019 ondansetron (ZOFRAN) injection 4 mg 1 11/23 prochlorperazine (COMPAZINE) injection 10 mg 1 11/24/2019 sodium chloride 0.9% flush 0.5-20 mL 1 06/2019 documented in this encounter Care Teams Guest Relations Manager Relationship Specialty Start Date End Date Mick Flowers MD PCP - General 05/14/17 documented as of this encounter
--- OUTSIDE RECORDS SUMMARY | 2024-06-29 00:31 | XMS_ITS | Encounter Summary ---
Author Organization [facility] Healthcare Address [address] [place] [address] Care Team Providers Care Jammer Operator Name Role Phone Mick Flowers MD Primary Care Provider [phone] Encounter Details Date Type Department Care Team (Late st Contact Info) Description 11/24/2019 4:58 PM CDT Anesthesia Event [facility] Operating Room [address] [place] [id number] Rodger Purvis MD [address] [place] [address] Maryanne Kline NP [address] [facility] [phone] [place] [address] Anesthesia Record Procedure Summary Procedure Name Responsible Anesthesiologist Anesthesia Start Time Anesthesia Stop Time INJECTION BOTOX 300 UNITS (Face) Rodger Purvis MD 11/24/19 1658 11/24/19 1740 Events Date Time Event Comment 11/24/2019 1637 1658 An Start 1659 An Start Data 1659 In Room 1706 An Induction The patient was reevaluated immediately before moderate or deep sedation use and before anesthesia induction. 1707 An LMA 1708 Anesthesia Ready 1713 Proc Start 1719 Proc Fin 1733 Airway Removed 1733 an stop data 1734 Out of Room 1739 Handoff to RN I completed my handoff [...] disposition at the time of handoff: PACU 1740 An Stop Meds Name Total midazolam PF 2 mg lidocaine 1 % PF 100 mg fentaNYL 100 mcg propofol 200 mg ondansetron PF (ZOFRAN) 2 mg/mL injectio n 4 mg dexamethasone 4 mg/ml 8 mg famotidine PF 20 mg ceFAZolin 2,000 mg Lactated Ringer's (LR) infusion 200 mL * Agents Name O2% N2O O2 [...] Inga Mcgill RN Peripheral IV Placement Date: 11/24/19; Placement Time: 1600; Catheter Size: 20 G; Orientation: Left; Location: Antecubital; Site Prep: Chlorhexidine; Technique: Anatomical landmarks; Inserted by: Timothy Beauchamp RN; Insertion Attempts: 1; Patient Tolerance: Tolerated well; Removal Date: 11/24/19; Removal Time: 1809; Removal Reason: Discharge 11/24/19 1600 by Raven Elias RN 11/24/19 180 by Madiha Turner RN Supraglottic Airway Placement Date: 11/24/19; Placement Time: 1706 (created via procedure documentation); Mask Ventilation: 0; Size: 4; Insertion Attempts: 1; Removal Date: 11/24/19; Removal Time: 17311/24/19 170 by Francine Goode CRNA 11/24/19 173 by Katya Bryant CRNA documented in this encounter Social History Tobacco Use Types Packs/Day Years Used Date Smoking Tobacco: Never Smokeless Tobacco: Never Alcohol Use Standard Drinks/Week Comments Yes 21 (1 standard drink = 0.6 oz pu re alcohol) Sex and Gender Information Value Date Recorded Sex Assigned at Not on file 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 Gender Identity Not on file Sexual Orientation Not on file 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 on file Not on file documented as of this encounter OR Notes * Anesthesia Postprocedure Evaluation - Rodger Purvis MD - 11/24/2019 6:09 PM CDT Patient: Doc Emery Procedure Summary Date: 11/24/19 Room / Location: [facility] OR POD 1 ROOM 324 / [facility] OR POD 1 Anesthesia Start: 1658 Anesthesia Stop: 1740 Procedures: INJECTION BOTOX 300 UNITS (N/A Face) CYSTOSCOPY (N/A Urethra) Diagnosis: Neurogenic bladder (Neurogenic bladder [N31.9]) Surgeon: Marquis Lopez MD Responsible Provider: Rodger Purvis MD Anesthesia Type: general ASA Status: 2 Anesthesia Type: general Last vitals BP 121/82 Pulse 56 Temp 36 ??C (96.8 ??F) (Temporal) Resp 10 SpO2 96% Anesthesia Post Evaluation Patient location during evaluation: PACU Patient participation: complete - patient participated Level of consciousness: fully awake Pain score: 0 Pain management: adequate Airway patency: patent and adequate Evidence of recall: no Anesthetic complications: no Cardiovascular status: acceptable and hemodynamically stable Respiratory status: acceptable and room air Hydration status: acceptable Pt is: normothermic Nausea/Vomiting status: none Comments: BP 121/82 Pulse 56 Temp 36 ??C (96.8 ??F) (Temporal) Resp 10 Ht 177.8 cm (5' 10 ) Wt 81.6 kg (180 lb) SpO2 96% BMI 25.83 kg/m?? * Anesthesia Procedure Notes - Francine Goode CRNA - 11/24/2019 5:14 PM CDTAssociated Order(s): Airway Airway Patient location: OR Urgency: elective Date/time: 11/24/2019 5:07 PM Indications for airway management: anesthesia and airway protection Difficult airway: no Staff: Supervising provider: Rodger Purvis MD Placed by: SCRAP SHEAR OPERATOR: Katya Bryant CRNA Emergent airway documentation: Risks and benefits discussed: yes Consent obtained: yes Consent given by: patient Airway prep: Preoxygenated: yes Patient position: sniffing Mask difficulty assessment: 0 - not attempted Spontaneous ventilation during airway: absent Sedation level during airway: GA Final airway details: Final airway type: supraglottic airway Final supraglottic airway: IGel SGA size: 4 Number of attempts: 1 * Anesthesia Preprocedure Evaluation - Rodger Purvis MD - 11/19/2019 10:37 AM CDT Images from the original note were not included. [facility] Planning Preoperative Evaluation Record Evaluation type/location: TPAP from [facility] Planned procedure site: [facility] PVT OR (Pod 1) [...] negatives: CAD (denies, noted in history items); [place] ; CABG ; systolic/diastolic dysfunction w/o CHF [...] to be performed on 11/21/2019 at the [facility]. . 11/14/2019 CULTURE, URINE, ROUTINE ? Micro Number: ?[id number] ?? Test Status: ? Final ?? Specimen [...] instructions were provided in writing sent via [employer] mail and telephone. Patient verbalized understanding of [...] (LIPITOR) 20 mg tablet -- -- Historical ProviderMD biotin 1 mg capsule -- -- Historical [...] for requested labs within last 720 hours. DOS Physical Exam Medical history, medications, and allergies reviewed. Attestation: With today's edits, I endorse the findings of the anesthesia pre-evaluation assessment dated: 11/19/2019. Airway Exam: Mallampati: II Cervical ROM: FROM TM distance: 3.5 Cardiovascular Exam: Rate: regular Rhythm: regular Pulmonary Exam: LCTA, bilat EENT Exam: trachea midline Dental Exam: Appears intact Current state: Patient's current state is cooperative and interactive. Additional comments: Patient has got weakness of left leg. Anesthesia Plan ASA 2 My patient is approved for the Anesthesia Controlled Medication protocol when under care of a SCRAP SHEAR OPERATOR Planned anesthesia: General Team communication plan: oral ET tube, mask and LMA Induction: Induction: intravenous. Postoperative Plan: Postoperative administration opioids intended. No postoperative mechanical ventilation intended. Informed Consent: Discussed plan with SCRAP SHEAR OPERATOR. Anesthesia plan and risks discussed with patient. Plan and Consent Comments: Explained the risks including but not limited to sore throat, PONV, damage to the lips & teeth and chest infection. Patient fully understands the risks. I answered further questions asked by the patient. Patient is happy with the explanation and happy to proceed. Consent and Attending signature: I and/or my [...] Procedure Name Priority Date/Time Associated Diagnosis Comments AK AN PROCEDURE PLACEHOLDER Routine 11/24/2019 5:14 PM CDT AK AN ELECTIVE SUPRAGLOTTIC AIRWAY Routine 11/24/2019 5:14 PM CDT documented in this encounter Results * AK AN ELECTIVE SUPRAGLOTTIC AIRWAY, AK AN PROCEDURE PLACEHOLDER (11/24/2019 5:14 PM CDT) Narrative Francine Goode CRNA - 11/24/2019 5:14 PM CDT Francine Goode CRNA ? 11/24/2019 ??5:15 PM Airway Patient location: OR Urgency: elective Date/time: 11/24/2019 5:07 PM Indications for airway management: anesthesia and airway protection Difficult airway: no Staff: Supervising provider: Rodger Purvis MD Placed by: SCRAP SHEAR OPERATOR: Katya Bryant CRNA Emergent airway documentation: Risks and benefits discussed: yes Consent obtained: yes Consent given by: patient Airway prep: Preoxygenated: yes Patient position: sniffing Mask difficulty assessment: 0 - not attempted Spontaneous ventilation during airway: absent Sedation level during airway: GA Final airway details: Final airway type: supraglottic airway Final supraglottic airway: IGel SGA size: 4 Number of attempts: 1 us Rodger Purvis MD ANESTHESIA ORDERABLES Cecilia l Result documented in this encounter Visit Diagnoses Not on filedocumented in this encounter Administered Medications Inactive Administered Medications - up to 3 most recent administrations Medication Order MAR Action Action Date Dose Rate Site ceFAZolin (ANCEF) injection Administer over 3 Minutes, As needed, Starting on 11/24/19 at 1706, Anesthesia Intra-op Given 11/24/2019 5:06 PM CDT 2,000 mg dexAMETHasone (DECADRON) 4 mg/mL injection Administer over 2 Minutes, As needed, Starting on Sun11/24/19 at 1711, Anesthesia Intra-op Given 11/24/2019 5:11 PM CDT 8 mg famotidine (PEPCID) injection Administer over 2 Minutes, As needed, Starting on Sun11/24/19 at 1710, Anesthesia Intra-op Given 11/24/2019 5:10 PM CDT 20 mg fentaNYL (SUBLIMAZE) preservative free injection intravenous, As needed, Starting on Sun11/24/19 at 1706, Anesthesia Intra-op Given 11/24/2019 5:06 PM CDT 100 mcg lidocaine PF (XYLOCAINE) 10 mg/mL (1 %) preservative free injection As needed, Starting on Sun11/24/19 at 1706, Anesthesia Intra-op Given 11/24/2019 5:06 PM CDT 100 mg midazolam (VERSED) preservative free injection intravenous, Administer over 2 Minutes, As needed, Starting on Sun11/24/19 at 1700, Anesthesia Intra-op Given 11/24/2019 5:00 PM CDT 2 mg ondansetron (ZOFRAN) injection intravenous, Administer over 2 Minutes, As needed, Starting on Sun11/24/19 at 1710, Anesthesia Intra-op Given 11/24/2019 5:10 PM CDT 4 mg propofoL (DIPRIVAN) IV intravenous, As needed, Starting on Sun11/24/19 at 1706, Anesthesia Intra-op Given 11/24/2019 5:06 PM CDT 200 mg documented in this encounter Care Teams Jammer Operator Relationship Specialty Start Date End Date Mick Flowers MD PCP - General 05/14/17 documented as of this encounter
--- OUTSIDE RECORDS SUMMARY | 2024-06-29 00:31 | XMS_ITS | Encounter Summary ---
Author Organization [facility] Address [address] [place] [address] Phone Care Team Providers Care Ear Nose Throat Physician Name Role Phone Mick Flowers MD Primary Care Provider [phone] Encounter Details Date Type Department Care Team (Late st Contact Info) Description 01/05/2020 Telephone [facility] Multiple Sclerosis [address] [place] [phone] ChairNasir ledezma, PARKING ENFORCEMENT MANAGER Social History Tobacco Use Types Packs/Day Years Used Date Smoking Tobacco: Never Smokeless Tobacco: Never Alcohol Use Standard Drinks/Week Comments Yes 21 (1 standard drink = 0.6 oz pu re alcohol) Sex and Gender Information Value Date Recorded Sex Assigned at Not on file 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 Minor sent him a portal message. He stated he's not sure how to view MyChart and he will have his assist him. I read the message that was sent to him. Pt voiced understanding. He agreed to rescheduling appt and was transferred to the schedulers. Nasir ----- Message from Cherry Minor MD sent at 01/04/2020 9:29 PM CDT ----- Regarding: RE: MRIs Hermelindo Love, I wrote him back about this on the portal. For now, I have not ordered the imaging, but I may in the future based on what the research/study MRIs show. Thanks Cherry ----- Message ----- From: PROSPER Ceja Sent: 01/01/2020 9:46 AM CDT To: Cherry Minor MD Subject: MRIs Doc Milner would like to know if he needs to schedule an appt to have MRI performed? Also, he never heard anything regarding his study MRIs. Below is the plan from his last office visit from 09/2018. I'd like to do standard clinical MRIs again, especially spinal cord. I will delay this until we decide about whether you should try OCREVUS, or not. (after we check on the study MRIs and how that data over time looked. Nasir documented in this encounter Plan of Treatment Not on file documented as of this encounter Visit Diagnoses Not on filedocumented in this encounter Care Teams Ear Nose Throat Physician Relationship Specialty Start Date End Date Mick Flowers MD PCP - General 05/14/17 documented as of this encounter
--- OUTSIDE RECORDS SUMMARY | 2024-06-29 00:31 | XMS_ITS | Encounter Summary ---
Author Organization [facility] Address [address] [place] [address] Care Team Providers Care Evp Sales Name Role Phone Mick Flowers MD Primary Care Provider [phone] Encounter Details Date Type Department Care Team (Late st Contact Info) Description 05/26/2020 Orders Only [facility] Testing Site - [place], [place] [address] [place] [id number] Marquis Lopez MD [address] [facility] [address] [place] [address] Pre-procedure lab exam (Primary Dx) Social History Tobacco Use Types Packs/Day Years Used Date Smoking Tobacco: Never Smokeless Tobacco: Never Alcohol Use Standard Drinks/Week Comments Yes 0 (1 standard drink = 0.6 oz pur e alcohol) SOCIAL Sex and Gender Information Value Date Recorded Sex Assigned at Not on file Legal Sex Male 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 Date of Px/chemo/treatment/placement/transfer 05/31/2020 ?? Testing site patient will be sent to: [place], [place] ?? Date testing requested: 05/28/2020 ?? Testing: COVID-RNA ?? Does the patient currently work in a healthcare facility with direct patient contact? No ?? Is the patient a resident of a congregate care or living setting? No ?? Is the patient ? No ?? Please select the performing region: [facility] MS ADJUDICATOR documented in this encounter Miscellaneous Notes * Addendum Note - Evy Tomlin - 05/26/2020 4:01 PM CSTAddended by: EVY TOMLIN on: 05/28/2020 11:22 AM Modules accepted: Orders MS ADJUDICATOR documented in this encounter Plan of Treatment Not on file documented as of this encounter Results * (ABNORMAL) COVID-19 Coronavirus RNA Nasopharyngeal (05/28/2020 8:40 AM CLAIMS ADJUDICATOR) COVID-19 RNA Detected(A) [facility] Comment: Interpretive Data Testing performed at [facility] Molecular Infectious Disease Laboratory. The 2018-Novel Coronavirus [...] revised on 2019. First COVID-19 test? Unknown [facility] Employeed in healthcare? No [facility] status? No [facility] Group care resident? No [facility] Hospitalized? Unknown [facility] Is patient in ICU? Unknown [facility] Symptomatic as defined by CDC? No [facility] Nasopharyngeal 05/28/2020 8: 40 AM CLAIMS ADJUDICATOR 05/28/2020 12:07 PM CLAIMS ADJUDICATOR Narrative [facility] - 05/29/2020 6:14 AM CLAIMS ADJUDICATOR What is the reason for testing?->Screening prior to scheduled procedure or surgery us Marquis Lopez MD LAB MICROBIOLOGY - GENERAL ORD ERABLES Final Result [facility] One [facility] Department [place] [address] documented in this encounter Visit Diagnoses Diagnosis Pre-procedure lab exam- Primary Pre-procedural laboratory examination Pre-procedure lab exam Pre-procedural laboratory examination documented in this encounter Care Teams Evp Sales Relationship Specialty Start Date End Date Mick Flowers MD PCP - General 05/14/17 documented as of this encounter
--- OUTSIDE RECORDS SUMMARY | 2024-06-29 00:31 | XMS_ITS | Encounter Summary ---
Author Organization [facility] Address [address] [place] [address] Phone Care Team Providers Care Front Desk Admin Name Role Phone Mick Flowers MD Primary Care Provider Encounter Details Date Type Department Care Team (Late st Contact Info) Description 04/26/2020 Telephone [facility] [address] [place] [address] Walter Slaughter MD [address] [facility] [address] [place], [place] [id number] Social History Tobacco Use Types Packs/Day Years Used Date Smoking Tobacco: Never Smokeless Tobacco: Never Alcohol Use Standard Drinks/Week Comments Yes 21 (1 standard drink = 0.6 oz pu re alcohol) Sex and Gender Information Value Date Recorded Sex Assigned at Not on file Legal Sex Male 3:12 AM CARE PROVIDER Gender Identity Not on file Sexual Orientation Not on file 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 - 04/26/2020 12:36 PM CARE PROVIDER Wilma with radiology [facility] was asked to schedule pt for INJ with before 05/05, but states there are no openings and is not able to create a new opening for Dr. Slaughter. States earliest available is 05/07. PROVIDER documented in this encounter Plan of Treatment Not on file documented as of this encounter Visit Diagnoses Not on filedocumented in this encounter Care Teams Front Desk Admin Relationship Specialty Start Date End Date Mick Flowers MD PCP - General 05/14/17 documented as of this encounter
--- OUTSIDE RECORDS SUMMARY | 2024-06-29 00:31 | XMS_ITS | Encounter Summary ---
Author Organization [facility] Address [address] [facility] [address] [place] [address] Phone Care Team Providers Care Loom Fixer Helper Name Role Phone Mick Flowers MD Primary Care Provider [phone] Reason for Visit * Reason Onset Date Comments Telehealth 02/12/2020 Encounter Details Date Type Department Care Team (Late st Contact Info) Description 02/12/2020 Telephone [facility] Multiple Sclerosis [address] [place] [phone] Lupe Jurado MA Telehealth Social History Tobacco Use Types Packs/Day Years Used Date Smoking Tobacco: Never Smokeless Tobacco: Never Alcohol Use Standard Drinks/Week Comments Yes 21 (1 standard drink = 0.6 oz pu re alcohol) Sex and Gender Information Value Date Recorded Sex Assigned at Not on file Legal Sex Male 3:[address] 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 Pt has knowledge of using zoom. Pt informed to have questions for provider at the time of appointment. Pt instructed to updated all information via MyChart-insurance, med/allergy list and pharmacy. Zoom invite sent. [place] 02/12/20@11:57AM documented in this encounter Plan of Treatment Not on file documented as of this encounter Visit Diagnoses Not on filedocumented in this encounter Care Teams Loom Fixer Helper Relationship Specialty Start Date End Date Mick Flowers MD PCP - General 05/14/17 documented as of this encounter
--- OUTSIDE RECORDS SUMMARY | 2024-06-29 00:31 | XMS_ITS | Encounter Summary ---
Author Organization [facility] Address [address] [place] [address] Phone Care Team Providers Care Continuing Education Specialist Name Role Phone Mick Flowers MD Primary Care Provider [phone] Encounter Details Date Type Department Care Team (Late st Contact Info) Description 03/02/[address] [facility] Scheduling [address] [id number] Priscila Boo MA Social History Tobacco Use Types Packs/Day Years Used Date Smoking Tobacco: Never Smokeless Tobacco: Never Alcohol Use Standard Drinks/Week Comments Yes 21 (1 standard drink = 0.6 oz pu re alcohol) Sex and Gender Information Value Date Recorded Sex Assigned at Not on file Legal 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 documented in this encounter Plan of Treatment Not on file documented as of this encounter Visit Diagnoses Not on filedocumented in this encounter Care Teams Continuing Education Specialist Relationship Specialty Start Date End Date Mick Flowers MD PCP - General 05/14/17 documented as of this encounter
--- OUTSIDE RECORDS SUMMARY | 2024-06-29 00:31 | XMS_ITS | Encounter Summary ---
Author Organization [facility] Healthcare Address [address] [place] [address] Care Team Providers Care Parcel Post Weigher Name Role Phone Mick Flowers MD Primary Care Provider [phone] Encounter Details Date Type Department Care Team (Late st Contact Info) Description 11/21/2019 1:50 PM CDT Lab [address] [address] Pre-op testing Social History Tobacco Use Types Packs/Day Years Used Date Smoking Tobacco: Never Smokeless Tobacco: Never Alcohol Use Standard Drinks/Week Comments Yes 21 (1 standard drink = 0.6 oz pu re alcohol) Sex and Gender Information Value Date Recorded Sex Assigned at Not on file Legal Sex Male 3:12 AM TANKMAN Gender Identity Not on file Sexual Orientation Not on file 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 The 2018-Novel Coronavirus [...] AM CDT 11/21/2019 2:25 PM CDT Narrative [facility] - 11/21/2019 10:58 PM CDT Is the patient experiencing any symptoms consistent with COVID (eg. Fever, cough, shortness of breath)?->No What is the reason for testing?->Screening prior to scheduled (>24 hr) surgery or procedure Marquis Lopez MD LAB MICROBIOLOGY - GENERAL ORD ERABLES Final Result [facility] One [facility] Department [place] [address] documented in this encounter Visit Diagnoses Diagnosis Pre-op testing Unspecified pre-operative examination documented in this encounter Care Teams Parcel Post Weigher Relationship Specialty Start Date End Date Mick Flowers MD PCP - General 05/14/17 documented as of this encounter
--- OUTSIDE RECORDS SUMMARY | 2024-06-29 00:31 | XMS_ITS | Encounter Summary ---
Author Organization [facility] Address [address] [place] [address] Phone Care Team Providers Care Account Development Manager Name Role Phone Mick Flowers MD Primary Care Provider [phone] Encounter Details Date Type Department Care Team (Late st Contact Info) Description 04/26/2020 Orders Only [facility] Orthopaedic Surgery [address] [facility] 2nd Floor [address] [place] [address] Glory Sandhu RMA Social History Tobacco Use Types Packs/Day Years Used Date Smoking Tobacco: Never Smokeless Tobacco: Never Alcohol Use Standard Drinks/Week Comments Yes 21 (1 standard drink = 0.6 oz pu re alcohol) Sex and Gender Information Value Date Recorded Sex Assigned at Not on file 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
--- OUTSIDE RECORDS SUMMARY | 2024-06-29 00:32 | XMS_ITS | Encounter Summary ---
Author Organization [facility] Address [address] [place] [address] Phone Care Team Providers Care Rock Breaker Name Role Phone Mick Flowers MD Primary Care Provider [phone] Encounter Details Date Type Department Care Team (Late st Contact Info) Description 07/07/2019 Telephone [facility] Orthopaedic Surgery [address] [facility] Advanced Medicine 6th [place] [address] [place] [address] Aranza Silverman PA [address] [place] [address] Social History Tobacco Use Types Packs/Day Years Used Date Smoking Tobacco: Never Smokeless Tobacco: Never Alcohol Use Standard Drinks/Week Comments Yes 21 (1 standard drink = 0.6 oz pu re alcohol) Sex and Gender Information Value Date Recorded Sex Assigned at Not on file Legal Sex Male 3:12 AM INTERNATIONAL MARKETING EXECUTIVE Gender Identity Not on file Sexual Orientation Not on file 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 I also reminded him to get the images on a disc with the report andsend to our office. RNATIONAL MARKETING EXECUTIVE * Telephone Encounter - Usman Juan - 07/09/2019 3:26 PM CST Pt called about scheduling MRI's, told pt Marcelo is working on orders and will call when they are [facility]. Pt is at [phone]. RNATIONAL MARKETING EXECUTIVE * Telephone Encounter - Aranza Silverman PA - 07/08/2019 1:01 PM INTERNATIONAL MARKETING EXECUTIVE I discussed the results of the Xray with the patient and I advised that he have an MRI of the thoracic and lumbar spine to evaluate the compression fracture and level of OA/plan for injection in the lower back Please call pt to schedule the MRI's, he wants to have them done at [facility] in [place]. I advised that he will have to bring the disc and report to us Clientele for results RNATIONAL MARKETING EXECUTIVE * Telephone Encounter - Marcelo Colin CMA - 07/08/2019 9:03 AM CST Please review. RNATIONAL MARKETING EXECUTIVE * Telephone Encounter - Sandra Amezcua CPhT - 07/07/2019 3:16 PM INTERNATIONAL MARKETING EXECUTIVE Pt was at PT when [facility] called. Pt states from question from Aranza the never has had a inj thathe knows of. Pt did have his 1st PT appt. Pt states the Therapist thinks the Pt needs a inj. Pt is requesting a return call. RNATIONAL MARKETING EXECUTIVE * Telephone Encounter - Aranza Silverman PA - 07/07/2019 1:57 PM INTERNATIONAL MARKETING EXECUTIVE I called pt because Xray report came back today and the read stated that in the Tspine there was anage-indeterminate compression deformity at T11, I wanted to know if this was an old injury. I had to leave a voicemail for him to call back. RNATIONAL MARKETING EXECUTIVE documented in this encounter Plan of Treatment Not on file documented as of this encounter Visit Diagnoses Not on filedocumented in this encounter Care Teams Rock Breaker Relationship Specialty Start Date End Date Mick Flowers MD PCP - General 05/14/17 documented as of this encounter
--- OUTSIDE RECORDS SUMMARY | 2024-06-29 00:32 | XMS_ITS | Encounter Summary ---
Author Organization [facility] Address [address] [place] [address] Phone Care Team Providers Care Investigative Shopper Name Role Phone Mick Flowers MD Primary Care Provider [phone] Encounter Details Date Type Department Care Team (Late st Contact Info) Description 07/21/2019 Telephone [facility] Russell Mcgill CPhT Social History Tobacco Use Types Packs/Day Years Used Date Smoking Tobacco: Never Smokeless Tobacco: Never Alcohol Use Standard Drinks/Week Comments Yes 21 (1 standard drink = 0.6 oz pu re alcohol) Sex and Gender Information Value Date Recorded Sex Assigned at Not on file Legal 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 CPT J0585 Pre-Certification required submit to [facility] . Call ref# [id number]. S/W Scott Hernandez @ [facility] CPT J0585 available for buy/bill. S/W Tang @ [facility] Pre- Cert Pre-Determination initiated for CPT 54335. Clinicals submitted to [facility] fax. Pending ref# [id number]. Call ref# [id number]. S/W Fely CamposChristy @ [facility] Pre-Cert for CPT J0585 initiated/clinicals faxed to . Pending ref# [id number]. JL 07/21/2019 Received call S/W Sofie Camargo Nurse @ [facility] pending case [id number] for CPT 53273 cancelled. Procedure does not require clinical review. Call ref: Sofie Camargo 07/21/2019 [facility] . JL 07/21/2019 *Secondary Insurance* S/W Jennifer Tucker @ [facility] member active effective 06/25/2019 ID# [id number] 150.00 Deductible (0.00 applied) 3000.00 Out of Pocket (0.00 applied) 45.00 Co-Pay. Per rep [facility] [employer] member - no Pre-Cert required - service covered through primary insurance. Callref# Jennifer Tucker 07/21/2019 Fax received from [facility]. Pre-Cert CPT J0585 Botox approved effective 07/21/2019 - 07/20/2020. [id number] units (300 units/4 visits). Authorization# [id number]. Procedure to be performed at outpatient hospital [facility]. Insurance letter scanned into [employer]. [facility] . CPT 67000 no review required. JL 07/24/2019 FLOOR INSTALLER FLOOR INSTALLER FLOOR INSTALLER documented in this encounter Plan of Treatment Not on file documented as of this encounter Visit Diagnoses Not on filedocumented in this encounter Care Teams Investigative Shopper Relationship Specialty Start Date End Date Mick Flowers MD PCP - General 05/14/17 documented as of this encounter
--- OUTSIDE RECORDS SUMMARY | 2024-06-29 00:32 | XMS_ITS | Encounter Summary ---
Author Organization [facility] Address [address] [place] [address] Phone Care Team Providers Care Natural Gas Inspector Name Role Phone Mick Flowers MD Primary Care Provider [phone] Encounter Details Date Type Department Care Team (Late st Contact Info) Description 07/28/2019 Orders Only [facility] Surgery [address] [facility] [address] [place] [address] Marquis Lopez MD [address] [facility] [address] [place], [place] [id number] Neurogenic bladder (Primary Dx); Urinary tract infection without hematuria, site unspecified Social History Tobacco Use Types Packs/Day Years Used Date Smoking Tobacco: Never Smokeless Tobacco: Never Alcohol Use Standard Drinks/Week Comments Yes 21 (1 standard drink = 0.6 oz pu re alcohol) Sex and Gender Information Value Date Recorded Sex Assigned at Not on file Legal Sex Male 3: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 Gender Identity Not on file Sexual Orientation Not on file 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 on file Not on file documented as of this encounter Plan of Treatment Scheduled Orders Name Type Priority Associated Diagnoses Orde r Schedule Urine culture Urine, bladder Microbiology Routine Neurogenic bladder Urinary tract infection without hematuria, site unspecified Expected: 10/13/2019, Expires: 07/28/2020 documented as of this encounter Visit Diagnoses Diagnosis Neurogenic bladder- Primary Neurogenic bladder, NOS Urinary tract infection without hematuria, site unspecified documented in this encounter Care Teams Natural Gas Inspector Relationship Specialty Start Date End Date Mick Flowers MD PCP - General 05/14/17 documented as of this encounter
--- OUTSIDE RECORDS SUMMARY | 2024-06-29 00:32 | XMS_ITS | Encounter Summary ---
Author Organization [facility] Address [address] [place] [address] Phone Care Team Providers Care Claims Agent Right Of Way Name Role Phone Mick Flowers MD Primary Care Provider [phone] Encounter Details Date Type Department Care Team (Late st Contact Info) Description 11/12/2019 Orders Only [facility] Urology [address] [facility] [address] [place] [address] Marquis Lopez MD [address] [facility] [address] [place], [place] [id number] Neurogenic bladder (Primary Dx); Urinary tract infection without hematuria, site unspecified Social History Tobacco Use Types Packs/Day Years Used Date Smoking Tobacco: Never Smokeless Tobacco: Never Alcohol Use Standard Drinks/Week Comments Yes 21 (1 standard drink = 0.6 oz pu re alcohol) Sex and Gender Information Value Date Recorded Sex Assigned at Not on file Legal Sex Male 3:12 AM SENIOR NET DEVELOPER ARCHITECT Gender Identity Not on file Sexual Orientation Not on file 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 Final ??Specimen Source: ?? URINE ??Specimen Quality: ??Adequate ??Result: ?Multiple organisms present, each less than 10,000 ? CFU/mL. These organisms, commonly found on ? external and internal genitalia, are considered ? to be colonizers. No further testing performed. Urine, clean voided 11/14/2019 9:01 AM CDT 11/14/2019 9:01 AM CDT Narrative [facility] - 11/15/2019 3:38 PM CDT AN UPDATE OR CORRECTION HAS BEEN MADE TO NAME us Marquis Lopez MD LAB MICROBIOLOGY - GENERAL ORD ERABLES Final Result [facility] [address] [place] [address] documented in this encounter Visit Diagnoses Diagnosis Neurogenic bladder- Primary Neurogenic bladder, NOS Urinary tract infection without hematuria, site unspecified documented in this encounter Care Teams Claims Agent Right Of Way Relationship Specialty Start Date End Date Mick Flowers MD PCP - General 05/14/17 documented as of this encounter
--- OUTSIDE RECORDS SUMMARY | 2024-06-29 00:32 | XMS_ITS | Encounter Summary ---
Author Organization [facility] Address [address] [place] [address] Phone Care Team Providers Care Precinct Commanding Officer Name Role Phone Mick Floewrs MD Primary Care Provider [phone] Encounter Details Date Type Department Care Team (Late st Contact Info) Description 11/19/2019 Orders Only [facility] Urology [address] [facility] Medical Office [address] [place] [address] Marquis Lopez MD [address] [facility] [address] [place], [place] [id number] Urinary tract infection without hematuria, site unspecified (Primary Dx) Social History Tobacco Use Types Packs/Day Years Used Date Smoking Tobacco: Never Smokeless Tobacco: Never Alcohol Use Standard Drinks/Week Comments Yes 21 (1 standard drink = 0.6 oz pu re alcohol) Sex and Gender Information Value Date Recorded Sex Assigned at Not on file Legal Sex Male 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 Dr. Lopez would like you to start on Bactrim DS 3 days prior to your procedure. I have sent that to [facility] on [address] documented in this encounter Plan of Treatment Not on file documented as of this encounter Visit Diagnoses Diagnosis Urinary tract infection without hematuria, site unspecified- Primary documented in this encounter Care Teams Precinct Commanding Officer Relationship Specialty Start Date End Date Mick Flowers MD PCP - General 05/14/17 documented as of this encounter
--- OUTSIDE RECORDS SUMMARY | 2024-06-29 00:32 | XMS_ITS | Encounter Summary ---
Author Organization [facility] Address [address] [place] [address] Phone Care Team Providers Care Photographs Curator Name Role Phone Mick Flowers MD Primary Care Provider [phone] Encounter Details Date Type Department Care Team (Late st Contact Info) Description 09/03/2019 Orders Only [facility] Orthopaedic Surgery [address] [facility] 2nd Floor [address] [place] [address] Aranza Silverman PA [address] [place] [address] Social History Tobacco Use Types Packs/Day Years Used Date Smoking Tobacco: Never Smokeless Tobacco: Never Alcohol Use Standard Drinks/Week Comments Yes 21 (1 standard drink = 0.6 oz pu re alcohol) Sex and Gender Information Value Date Recorded Sex Assigned at Not on file Legal Sex Male 3:12 AM 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
--- OUTSIDE RECORDS SUMMARY | 2024-06-29 00:32 | XMS_ITS | Encounter Summary ---
Author Organization [facility] Address [address] [place] [address] [place] [address] Phone Care Team Providers Care Company Marker Name Role Phone Mick Flowers MD Primary Care Provider [phone] Encounter Details Date Type Department Care Team (Late st Contact Info) Description 09/12/2019 Documentation [facility] Multiple Sclerosis [address] [place] [address] Marcia Duran, RN Social History Tobacco Use Types Packs/Day Years Used Date Smoking Tobacco: Never Smokeless Tobacco: Never Alcohol Use Standard Drinks/Week Comments Yes 21 (1 standard drink = 0.6 oz pu re alcohol) Sex and Gender Information Value Date Recorded Sex Assigned at Not on file Legal Sex Male 3:12 AM CLIN ASST Gender Identity Not on file Sexual Orientation Not on file 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
--- OUTSIDE RECORDS SUMMARY | 2024-06-29 00:32 | XMS_ITS | Encounter Summary ---
Author Organization [facility] Address [address] [place] [address] Phone Care Team Providers Care Kiln Worker Name Role Phone Mick Flowers MD Primary Care Provider [phone] Reason for Referral * Diagnostic Imaging (Routine) - Closed Specialty Diagnoses / Procedures Referred By Contac t Referred To Contact Radiology Diagnoses Chronic left-sided low back pain without sciatica Facet arthropathy Procedures IR Facet Block Lumbar Sacral First Level Left Aranza Silverman PA Phone: tel: fax: [address] [address] Referral ID Status Reason Start Date Expiration Date Visits Re quested Visits Authorized [id number] Closed 09/12/2019 09/25/2019 1 1 Encounter Details Date Type Department Care Team (Late st Contact Info) Description 09/01/2019 Orders Only [facility] Orthopaedic Surgery [address] [facility] Advanced Medicine 6th [place] [address] [place] [address] Aranza Silverman PA [address] [facility] [address] [place] [address] Chronic left-sided low back pain without sciatica (Primary Dx); Facet arthropathy Social History Tobacco Use Types Packs/Day Years Used Date Smoking Tobacco: Never Smokeless Tobacco: Never Alcohol Use Standard Drinks/Week Comments Yes 21 (1 standard drink = 0.6 oz pu re alcohol) Sex and Gender Information Value Date Recorded Sex Assigned at Not on file Legal Sex Male 3:12 AM SUPERVISOR FITTING Gender Identity Not on file Sexual Orientation Not on file 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 ??Please refer to the physician's procedure / OR operative note. Aranza POTTER IMG IR PROCEDURES Final Result Performing Organization Address City/State/[facility] Co md Phone Number [email or web address] documented in this encounter Visit Diagnoses Diagnosis Chronic left-sided low back pain without sciatica- Primary Facet arthropathy Spondylosis of unspecified site without mention of myelopathy Chronic left-sided low back pain without sciatica Facet arthropathy Spondylosis of unspecified site without mention of myelopathy documented in this encounter Care Teams Kiln Worker Relationship Specialty Start Date End Date Mick Flowers MD PCP - General 05/14/17 documented as of this encounter
--- OUTSIDE RECORDS SUMMARY | 2024-06-29 00:32 | XMS_ITS | Encounter Summary ---
Author Organization [facility] Address [address] [place] [address] Phone Care Team Providers Care Clutch Operator Name Role Phone Mick Flowers MD Primary Care Provider [phone] Encounter Details Date Type Department Care Team (Late st Contact Info) Description 08/29/2019 Telephone [facility] Orthopaedic Surgery [address] [place] [address] Aranza Silverman PA [address] [place] [address] Social History Tobacco Use Types Packs/Day Years Used Date Smoking Tobacco: Never Smokeless Tobacco: Never Alcohol Use Standard Drinks/Week Comments Yes 21 (1 standard drink = 0.6 oz pu re alcohol) Sex and Gender Information Value Date Recorded Sex Assigned at Not on file Legal Sex Male 3:12 AM CABLE DRILLER Gender Identity Not on file Sexual Orientation Not on file 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 * Telephone Encounter - Marcelo Colin CMA - 09/10/2019 3:51 PM CDT I spoke with Doc and confirmed that his injection is approved. He stated that [facility] and he has received a bill. Please assist. * Telephone Encounter - Isaac Ortega B.A. - 09/10/2019 10:14 AM CDT Pt requesting to talk to Marcelo. Pt calling about INJ scheduled for 09/11. Asking if is approved by insurance. Also calling about previous note regarding billing. Expressed understanding Marcelo was working with Shin regarding it. Pt is at [phone] * Telephone Encounter - Marcelo Colin CMA - 09/08/2019 4:04 PM CDT Please assist with this patient. * Telephone Encounter - Sandra Amezcua CPhT - 09/08/2019 3:42 PM CDT Pt requesting a return call today. Pt just rec'd a bill for the MRI. * Telephone Encounter - Marcelo Colin CMA - 09/05/2019 10:42 AM CDT I spoke with Doc and let him know that his MRI is approved and that the injection is still pending. * Telephone Encounter - Sandra Amezcua CPhT - 09/05/2019 9:51 AM CDT Pt calling to FU to if both procedures have be appoved. Pt is requesting a call back today. * Telephone Encounter - Marcelo Colin CMA - 09/01/2019 3:03 PM CDT I placed the order for Doc and he is going to schedule the injection. * Telephone Encounter - Isaac Ortega B.A. - 08/29/2019 11:39 AM CABLE DRILLER Pt LM stating wanted to give number for [facility] for approval for INJ. [phone]. Pt is at [phone] E DRILLER documented in this encounter Plan of Treatment Not on file documented as of this encounter Visit Diagnoses Not on filedocumented in this encounter Care Teams Clutch Operator Relationship Specialty Start Date End Date Mick Flowers MD PCP - General 05/14/17 documented as of this encounter
--- OUTSIDE RECORDS SUMMARY | 2024-06-29 00:32 | XMS_ITS | Encounter Summary ---
Author Organization [facility] Address [address] [place] [address] Phone Care Team Providers Care Bumper Machine Operator Name Role Phone Mick Flowers MD Primary Care Provider [phone] Encounter Details Date Type Department Care Team (Late st Contact Info) Description 08/06/2019 Telephone [facility] Orthopaedic Surgery [address] [facility] 2nd [address] [place] [address] Aranza Silverman PA [address] [place] [address] Social History Tobacco Use Types Packs/Day Years Used Date Smoking Tobacco: Never Smokeless Tobacco: Never Alcohol Use Standard Drinks/Week Comments Yes 21 (1 standard drink = 0.6 oz pu re alcohol) Sex and Gender Information Value Date Recorded Sex Assigned at Not on file Legal Sex Male 3:12 AM MARBLE CUTTER 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 Gender Identity Not on file Sexual Orientation Not on file 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 on file Not on file documented as of this encounter Miscellaneous Notes * Telephone Encounter - Aranza Silverman PA - 08/06/2019 10:32 AM MARBLE CUTTER OPERATOR I called and spoke to the patient regarding his Tspine MRI results, no fracture; recommend continued PT and he will return to clinic on 08/29/19 LE CUTTER OPERATOR documented in this encounter Plan of Treatment Not on file documented as of this encounter Visit Diagnoses Not on filedocumented in this encounter Care Teams Bumper Machine Operator Relationship Specialty Start Date End Date Mick Flowers MD PCP - General 05/14/17 documented as of this encounter
--- OUTSIDE RECORDS SUMMARY | 2024-06-29 00:32 | XMS_ITS | Encounter Summary ---
Author Organization [facility] Healthcare Address [address] [place] [address] Care Team Providers Care Tile Classifier Name Role Phone Mick Flowers MD Primary Care Provider [phone] Encounter Details Date Type Department Care Team (Late st Contact Info) Description 05/12/2019 12:40 PM ATM MECHANIC - 05/12/2019 2:00 PM [facility] Surgery [facility] Operating Room [address] [place] [address] Marquis Lopez MD [address] [facility] [address] [place] [address] INJECTION BOTOX 300 UNITS INTO BLADDER Surgery Details Date/Time Status Location OR Service Patient Class Case Cl ass Case Type Trauma Case? 05/12/2019 12:[address] [facility] OR POD 1 324 Urology Outpatient Elective Panel 1 Procedure LRB Anes Op Region Wound Class Comments INJECTION BOTOX 300 UNITS INTO BLADDER N/A General Face Class I - Clean CYSTOSCOPY N/A General Urethra Class II - [place] an Contaminated Surgeon Surgeon Role Service Panel Marquis Lopez MD Primary Urology 1 Lauren Coleman MD Resident - Assisting Boaz r Procedures 1 Special Needs 200 units of Botox to be mixed with 20 cc normal saline in OR; Wilver needle for injection documented in this encounter Social History Tobacco Use Types Packs/Day Years Used Date Smoking Tobacco: Never Smokeless Tobacco: Never Alcohol Use Standard Drinks/Week Comments Yes 21 (1 standard drink = 0.6 oz pu re alcohol) Sex and Gender Information Value Date Recorded Sex Assigned at Not on file Legal Sex Male 3:12 AM ATM MECHANIC Gender Identity Not on file Sexual Orientation Not on file documented as of this encounter Last Filed Vital Signs Vital Sign Reading Time Taken Comments Blood Pressure 144/86 05/12/2019 1:40 PM ATM MECHANIC Pulse 62 05/12/2019 1:40 PM ATM MECHANIC Temperature 36.3 ??C (97.3 ??F) 05/12/2019 12:[address] Respiratory Rate 13 05/12/2019 1:40 PM ATM MECHANIC Oxygen Saturation 98% 05/12/2019 1:40 PM ATM MECHANIC Inhaled Oxygen Concentration - - Weight 83.5 kg (184 lb) 05/12/2019 12:25 PM ATM MECHANIC Height 177.8 cm (5' 10 ) 05/12/2019 12:25 PM ATM MECHANIC Body Mass Index 26.4 05/12/2019 12:25 PM ATM MECHANIC documented in this encounter Discharge Instructions * Discharge Instructions* Lauren Coleman MD - 05/12/2019 1:33 PM ATM MECHANIC Discharge Instructions Diagnosis: Overactive Bladder Surgery performed: [...] urine. Activity: Activity as tolerated. Follow up: Call to schedule an appointment as needed. [phone] Future Appointments Date Time Provider Department Center 05/29/2019 8:30 AM TARIQ Angelo [facility] 6A OS Contact your doctor if: - Fever over 100.8F - Pain uncontrolled by prescribed medications - Nausea/vomiting - Persistent pain greater than 2 weeks - Unable to urinate Sunday through Sunday, 8 AM to 4:30 PM, call [phone] and ask for a member of your doctor's team. For urgent matters after 6:00 PM during the week, on weekends and holidays, call [phone] and ask to have the Urology In Flight Refueling Operator Physician paged for you. MECHANIC * Attachments The following attachments cannot be sent through Care Everywhere. * [facility] PATHWAY TO EXCELLENT CARE AFTER SURGERY [...] a day for 7 days 14 tablet 05/05/2019 05/12/2019 ALPRAZolam (XANAX) 0.25 mg tabletIndications :anxiety Take 1 tablet (0.25 mg total) by mouth nightly as needed for sleep 1 06/27/2018 09/12/2022 atorvastatin (LIPITOR) 20 mg tabletIndications :hyperlipidemia Take 20 mg by mouth every morning 2021 losartan (COZAAR) 100 mg tabletIndications :hypertension Take 1 tablet (100 mg total) by mouth every morning 11/14/2022 POTASSIUM CHLORIDE ER 20 mEq CR tabletIndications :supplement Take 1 tablet (20 mEq total) by mouth every morning 5 04/23/2018 03/19/2024 documented as of this encounter Discharge Disposition Disposition Code Departure Means Destination Discharge to home or self care documented in this encounter H&P Notes * Marquis Lopez MD - 05/12/2019 11:56 AM CST General H&P Subjective Patient is a 53 y.o. male with chief complaint of neurogenic bladder and urinary urge incontinence from neurogenic bladder. HPI: 53-year-old man with neurogenic bladder, and recurrent urinary urge incontinence from neurogenic bladder, he is here for his 300 units Botox injections into his bladder, effects on his last Botox injections has worn out. Past Medical History: Diagnosis Date ??? Hypertension Hypertension ??? Multiple sclerosis (CMS/HCC) Multiple Sclerosis Past Surgical History: Procedure Laterality Date ??? CYSTOSCOPY with botox injection; receives every 6 months Medications Prior to Admission Medication Sig Dispense Refill Last Dose ??? ALPRAZolam (XANAX) 0.25 mg tablet TK 2 TS PO QPM FOR SLEEP 1 11/03/2018 at Unknown time ??? atorvastatin (LIPITOR) 20 mg tablet Take 20 mg by mouth every morning 11/03/2018 at Unknown time ??? felodipine (PLENDIL) 5 mg 24 hr tablet Take 5 mg by mouth every morning 11/03/2018 at Unknown time ??? hydroCHLOROthiazide (HYDRODIURIL) 25 mg tablet Take 25 mg by mouth daily 11/04/2018 at 0445 ??? losartan (COZAAR) 100 mg tablet Take 100 mg by mouth every morning 11/04/2018 at 0445 ??? POTASSIUM CHLORIDE ER 20 mEq CR tablet TAKE 1 T PO DAILY - morning 5 11/04/2018 at 0445 ??? sulfamethoxazole-trimethoprim (BACTRIM DS) 800-160 mg per tablet Take 1 tablet by mouth 2 (two)times a day for 7 days 14 tablet 0 No Known Allergies Social History Tobacco Use ??? Smoking status: Never Smoker ??? Smokeless tobacco: Never Used Substance Use Topics ??? Alcohol use: Yes Alcohol/week: 21.0 standard drinks Types: 21 Glasses of wine per week Family History Problem Relation Age of Onset ??? Multiple sclerosis Other Family history of Multiple sclerosis; ??? Hypertension Other Family history of Hypertension; ??? Melanoma Mother Family history of malignant melanoma - (Added by TW Conv) ??? Anesthesia problems Neg Hx Review of Systems Objective Vitals: Arrival Vitals Temp Pulse Resp BP SpO2 Temp src Heart Rate Source Patient Position BP Location FiO2 (%) 24hr Min/Max: No data recorded Most Recent : There were no vitals filed for this visit. No intake/output data recorded. No intake/output data recorded. Physical Exam Physical examination: GENERAL: Patient is a healthy [...] Normal affect and mood, oriented x 3. Lab/Radiology/Diagnostic Review: No recent results to review His most recent urinary tract infection was treated with appropriate culture sensitive antibiotics Assessment Principal Problem: Neurogenic bladder Urinary urge incontinence from neurogenic bladder Plan Botox: Patient has elected to proceed with injection of Botox for treatment of neurogenic bladder, and urgency urinary incontinence from neurogenic bladder.' Discussed with patient in detail all risks, benefits [...] repeated injection is necessary to maintainefficacy. Patient would like to proceed with injection of 300 units of Botox in the Or MECHANIC documented in this encounter Miscellaneous Notes * Op Note - Marquis Lopez MD - 05/12/2019 12:40 PM CST Date of Surgery: May 12, 2019 Preoperative diagnosis: Neurogenic bladder, detrusor overactivity and urge urinary incontinence from neurogenic bladder Post-operative diagnosis: Neurogenic bladder, detrusor overactivity and urge urinary incontinence from neurogenic bladder Procedure: Cystoscopy, injection of 300 units of onabotulinumtoxinA (Botox) into the bladder Surgeon: Marquis Lopez MD Airline Customer Service Agent: Lauren Coleman MD Anesthesia: General Complications: None Estimated blood loss: None Specimen: None Indication for surgery: Patient has neurogenic bladder, and detrusor overactivity and urge urinary incontinence from neurogenic bladder. Pt is here for Botox injection into the [...] CIC/medel. Patient is also aware that Botox maynot completely make patient completely dry and may [...] Marquis Lopez, was present throughout the surgery. MECHANIC * Brief Op Note - Marquis Lopez MD - 05/12/2019 12:40 PM CST Operative Progress Note Surgical Team: Surgeon(s) and Role: * Marquis Lopez MD - Primary * Lauren Coleman MD - Resident - Assisting Anesthesiologist: Fili Ceja MD MEDICAL SCREENER: Ezequiel Cox CRNA; Alesha Bagley CRNA Banjo Repairer: Beth Romero RN Scrub: Daylin Goodwin RN; Taya Peterson RN DATE OF SURGERY : 05/12/2019 Preoperative Diagnosis: Pre-op Diagnosis * Neurogenic bladder [N31.9] Postoperative Diagnosis: Post-op Diagnosis * Neurogenic bladder [N31.9] Procedure(s): Procedure(s) (LRB): INJECTION BOTOX 300 UNITS INTO BLADDER (N/A) CYSTOSCOPY (N/A) Operative Findings: Normal bladder mucosa and urethra and prostate. Estimated Blood Loss: No blood loss documented. Intraoperative Fluids: See Anesthesia record for mls Specimens: No specimen collected in procedure Implants: Nothing was implanted during the procedure Blood/Blood Products Transfused: 0 mls Complications: None Condition on Discharge from the operating room was jefry Lopez MD Date: 05/12/2019 Time: 2:10 PM TEACHING ATTESTATION : I was present and directly participated in the entire procedure (including opening and closing). MECHANIC documented in this encounter Plan of Treatment Not on file documented as of this encounter Procedures Procedure Name Priority Date/Time Associated Diagnosis Comments CYSTOSCOPY 05/12/2019 1:45 PM ATM MECHANIC Neurogenic bladder Special Needs 200 units of Botox to be mixed with 20 cc normal saline in OR; Wilver needle for injection INJECTION BOTOX 05/12/2019 1:45 PM ATM MECHANIC Neurogenic bladder Special Needs 200 units of Botox to be mixed with 20 cc normal saline in OR; Wilver needle for injection documented in this encounter Visit Diagnoses Diagnosis [...] infusion 30 mL/hr, intravenous, Continuous, Starting on Sun05/12/19 at 1245, Pre-Op New Bag 05/12/2019 12:39 PM ATM MECHANIC 30 mL/hr 30 mL /hr onabotulinumtoxin A (botulinum toxin type A, BOTOX) 200 unit/20 mL in sodium chloride 0.9% As needed, Starting on Sun05/12/19 at 1407, Intra-Op Given 05/12/2019 2:07 PM ATM MECHANIC 30 mL sodium chloride 0.9 % irrigation As needed, Starting on Sun05/12/19 at 1406, Intra-Op Given 05/12/2019 2:06 PM ATM MECHANIC 1,000 mL documented in this encounter Active and Recently Administered Medications Times are shown in ATM MECHANIC. Scheduled Medication Order 05/10/2019 05/11/2019 05/12/2019 acetaminophen (TYLENOL) tablet 500 mg 500 mg, oral, Once, On Sun05/12/19 at 1500, For 1 dose, Phase I, When able to tolerate PO., Indications: Pain 1500 (Due) ceFAZolin (ANCEF) 2,000 mg/20 mL in sterile water (premix) 2,000 mg (COMPLETED) 2,000 mg, intravenous, at 400 mL/hr, Administer over 3 Minutes, Once, On Sun05/12/19 at 1245, For 1 dose, Pre-Op, Administer within 60 minutes of incision., Indications: Prophylaxis, Surgical 1357 (Given - Provid er: Alesha Bagley CRNA) Continuous Medication Order 05/10/2019 05/11/2019 05/12/2019 Lactated Ringer's (LR) infusion 30 mL/hr, intravenous, Continuous, Starting on Sun05/12/19 at 1245, Pre-Op 1239 (New Bag - Prov ider: Breanne Kaur RN)1422 (Stopped - Provider: Alesha Bagley CRNA) PRN Medication Order 05/10/2019 05/11/2019 05/12/2019 HYDROmorphone (DILAUDID) injection 0.2 mg 0.2 mg, intravenous, Administer over 2 Minutes, Every 10 min PRN, 1st line for pain, Starting on Sun05/12/19 at 1421, Phase I, Switch to 2nd line analgesic order if pain is uncontrolled or increasing after 2 doses. Notify Anesthesiologist if total PACU dose reaches 2 mg and pain score 5/10 or more., Indications: Pain HYDROmorphone (DILAUDID) injection 0.4 mg 0.4 mg, intravenous, Administer over 2 Minutes, Every 10 min PRN, 2nd line for pain, Starting on Sun05/12/19 at 1421, Phase I, May administer 10 mintes after [...] needed, other, excessive sedation/respiratory depression, Starting on Sun05/12/19 at 1421, For 1 dose, Phase I, Dilute 0.4 [...] chloride 0.9% (CANCELED) As needed, Starting on Sun05/12/19 at 1407, Intra-Op 1407 (Given - Provid er: Marquis Lopez MD - Comment: 300 units given total) ondansetron (ZOFRAN) injection 4 mg 4 mg, intravenous, Administer over 2 Minutes, Once as needed, nausea, vomiting, Starting on Sun05/12/19 at 1421, For 1 dose, Phase I oxyCODONE (ROXICODONE) tablet 10 mg 10 mg, oral, Once as needed, 1st line for pain, Starting on Sun05/12/19 at 1421, For 1 dose, Phase I, When able to tolerate PO., Indications: Pain sodium chloride 0.9 % irrigation (CANCELED) As needed, Starting on Sun05/12/19 at 1406, Intra-Op 1406 (Given - Provid er: Marquis Lopez MD) sodium chloride 0.9% flush 0.5-20 mL 0.5-20 mL, intra-catheter, As needed, line care, Starting on Sun05/12/19 at 1203, Pre-Op, Flush volume based on line type and size. Flush before and after each use. , Indications: Flushing documented in this encounter Orders Medications Ordered That Julio Cesar ht Not Have Been Administered Count Last Ordered Date First Ordered Date acetaminophen (TYLENOL) tablet 500 mg 1 ceFAZolin (ANCEF) 2,000 mg/2 0 mL in sterile water (premix) 2,000 mg 1 05/12/2019 HYDROmorphone (DILAUDID) injection 0.2 mg 1 05/12/2019 HYDROmorphone (DILAUDID) injection 0.4 mg 1 05/12/2019 naloxone (NARCAN) 0.4 mg/mL injection 0.04-0.4 mg 1 05/12/2019 ondansetron (ZOFRAN) injection 4 mg 1 05/12 oxyCODONE (ROXICODONE) tablet 10 mg 1 05/12 sodium chloride 0.9% flush 0.5-20 mL 1 04/25 documented in this encounter Care Teams Tile Classifier Relationship Specialty Start Date End Date Mick Flowers MD PCP - General 05/14/17 documented as of this encounter
--- OUTSIDE RECORDS SUMMARY | 2024-06-29 00:32 | XMS_ITS | Encounter Summary ---
Author Organization [facility] Healthcare Address [address] [place] [address] Care Team Providers Care Kettle Hand Name Role Phone Mick Flowers MD Primary Care Provider [phone] Reason for Referral * Diagnostic Imaging (Routine) - Closed Specialty Diagnoses / Procedures Referred By Christy t Referred To Contact Radiology Diagnoses Chronic left-sided low back pain without sciatica Facet arthropathy Procedures IR Facet Block Lumbar Sacral First Level Left Aranza Silverman PA Phone: tel: fax: [address] [address] Referral ID Status Reason Start Date Expiration Date Visits Re quested Visits Authorized [id number] Closed 09/12/2019 09/25/2019 1 1 Reason for Visit * Diagnostic Imaging (Routine) - Closed Specialty Diagnoses / Procedures Referred By Contac t Referred To Contact Radiology Diagnoses Chronic left-sided low back pain without sciatica Facet arthropathy Procedures IR Facet Block Lumbar Sacral First Level Left Aranza Silverman PA Phone: tel: fax: [address] [address] Referral ID Status Reason Start Date Expiration Date Visits Re quested Visits Authorized [id number] Closed 09/12/2019 09/25/2019 1 1 Encounter Details Date Type Department Care Team (Latest Contact Info) Description 09/12/2019 12:27 PM CDT - 09/12/2019 11:59 PM CDT Hospital Encounter [facility] [address] [place] [address] Walter Rojas MD [address] [facility] [address] [place] [address] Chronic left-sided low back pain without sciatica; Facet arthropathy Discharge Disposition: Discharge to home or self care Social History Tobacco Use Types Packs/Day Years Used Date Smoking Tobacco: Never Smokeless Tobacco: Never Alcohol Use Standard Drinks/Week Comments Yes 21 (1 standard drink = 0.6 oz pu re alcohol) Sex and Gender Information Value Date Recorded Sex Assigned at Not on file Legal Sex 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 Gender Identity Not on file Sexual Orientation Not on file 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 documented in this encounter Medications at Time [...] Progress Notes * Walter Dockery MD - 09/12/2019 1:00 PM CDT Left L4-5 Facet Joint Injection [facility] Department of Orthopedic Surgery Division of Physical Medicine and Rehabilitation Patient name: Doc Emery Date of : 1965 Date of service: 09/12/2019 Doc Emery presents to the fluoroscopy suite [...] for the procedure above. Walter Rojas MD documented in this encounter Plan of Treatment Not on file documented as of this encounter Procedures Procedure Name Priority Date/Time Associated Diagnosis Comments FACET BLOCK LUMBAR/SACRAL 1 LEVEL LEFT Schedule Routine, Read Routine (OP Routine) 09/12/2019 1:22 PM CDT Chronic left-sided low back pain without sciatica Facet arthropathy documented in this encounter Results * IR Facet Block Lumbar Sacral First Level Left (09/12/2019 1:22 PM CDT) Narrative [facility] - 09/12/2019 1:24 PM CDT The images from this study are not interpreted by Radiology. ??Please refer to the physician's procedure / OR operative note. Aranza CHOWDHURY IR PROCEDURES Final Result [facility] documented in this encounter Visit Diagnoses Diagnosis Chronic left-sided low back pain without sciatica Facet arthropathy Spondylosis of unspecified site without mention of myelopathy documented in this encounter Administered Medications Inactive Administered Medications - up to 3 most recent administrations Medication Order MAR Action Action Date Dose Rate Site iohexoL (OMNIPAQUE) 300 mg iodine/mL injection solution Code/trauma/sedation medication, Starting on Sun09/12/19 at 1323 Given 09/12/2019 1:23 PM CDT 0.5 mL lidocaine PF (XYLOCAINE) 10 mg/mL (1 %) preservative free injection Code/trauma/sedation medication, Starting on Sun09/12/19 at 1322, Intra-Procedure (IR), Indications: Administration of Local AnesthesiaIndications:Administrati on of Local Anesthesia Given 09/12/2019 1:22 PM CDT 0.5 mL triamcinolone (KENALOG) 40 mg/mL injection Code/trauma/sedation medication, Starting on Sun09/12/19 at 1323 Given 09/12/2019 1:23 PM CDT 40 mg documented in this encounter Care Teams Kettle Hand Relationship Specialty Start Date End Date Mick Flowers MD PCP - General 05/14/17 documented as of this encounter
--- OUTSIDE RECORDS SUMMARY | 2024-06-29 00:32 | XMS_ITS | Encounter Summary ---
Author Organization [facility] Healthcare Address [address] [place] [address] Care Team Providers Care Geodetic Engineer Name Role Phone Mick Flwoers MD Primary Care Provider [phone] Encounter Details Date Type Department Care Team (Late st Contact Info) Description 05/12/2019 1:46 PM CLIMATOLOGIST Anesthesia Event [facility] Operating Room [address] [place] [address] Fili Ceja MD [address] [facility] [address] [place] [address] Anesthesia Record Procedure Summary Procedure Name Responsible Anesthesiologist Anesthesia Start Time Anesthesia Stop Time INJECTION BOTOX 300 UNITS INTO BLADDER (Face) Fili Ceja MD 05/12/19 1346 05/12/19 1423 Events Date Time Event Comment 05/12/2019 1233 1345 In Room 1346 An Start 1346 An Start Data 1351 An Induction The patient was reevaluated immediately before moderate or deep sedation use and before anesthesia induction. 1353 An LMA 1359 Proc Start 1416 Proc Fin 1417 Airway Removed 1417 an stop data 1419 Out of Room 1423 Handoff to RN I completed my handoff [...] disposition at the time of handoff: PACU 1423 An Stop 1457 Release from care Meds Name Total midazolam PF 2 mg lidocaine 1 % PF 60 mg fentaNYL 50 mcg propofol 200 mg ondansetron PF (ZOFRAN) 2 mg/mL injectio n 4 mg ceFAZolin (ANCEF) 2,000 mg/20 mL in ster ile water (premix) 2,000 mg 2,000 mg famotidine PF 20 mg Lactated Ringer's (LR) infusion 500 [...] Zaragoza 07/04/22 1357 by Inga Mcgill RN Peripheral IV Placement Date: 05/12/19; Placement Time: 1236; Catheter Size: 20 G; Orientation: Left; Location: Hand; Site Prep: Chlorhexidine; Insertion Attempts: 1; Patient Tolerance: Tolerated well; Removal Date: 05/12/19; Removal Time: 1529; Removal Reason: Discharge 05/12/19 1236 by Breanne Kaur RN 05/12/19 1529 by Eulogio Johansen RN RETIRED Wound 05/12/19; 1358; Othe r (Comment); Penis; 07/04/22; 1356; Removal date unknown/not present on admission 05/12/19 1358 by Beth Romero RN 07/04/22 1356 by Inga Mcgill RN Supraglottic Airway Placement Date: 05/12/19; Placement Time: 1403 (created via procedure documentation); Mask Ventilation: 1; Size: 5; Insertion Attempts: 1; Removal Date: 05/12/19; Removal Time: 1417 05/12/19 1403 by lAesha Bagley CRNA 05/12/19 1417 by Alesha Bagley CRNA documented in this encounter Social History Tobacco Use Types Packs/Day Years Used Date Smoking Tobacco: Never Smokeless Tobacco: Never Alcohol Use Standard Drinks/Week Comments Yes 21 (1 standard drink = 0.6 oz pu re alcohol) Sex and Gender Information Value Date Recorded Sex Assigned at Not on file Legal Sex Male 3:12 AM CLIMATOLOGIST Gender Identity Not on file Sexual Orientation Not on file documented as of this encounter OR Notes * Anesthesia Postprocedure Evaluation - Fili Ceja MD - 05/12/2019 2:56 PM CST Patient: Doc Emery Procedure Summary Date: 05/12/19 Room / Location: [facility] OR POD 1 ROOM 324 / [facility] OR POD 1 Anesthesia Start: 1346 Anesthesia Stop: 1423 Procedures: INJECTION BOTOX 300 UNITS INTO BLADDER (N/A Face) CYSTOSCOPY (N/A Urethra) Diagnosis: Neurogenic bladder (Neurogenic bladder [N31.9]) Surgeon: Marquis Lopez MD Responsible Provider: Fili Ceja MD Anesthesia Type: general ASA Status: 3 Anesthesia Type: general Last vitals BP 125/89 Pulse 59 Temp 36 ??C (96.8 ??F) (Temporal) Resp 13 SpO2 99% Anesthesia Post Evaluation Patient location during evaluation: PACU Patient participation: complete - patient participated Level of consciousness: fully awake Pain score: 0 Pain management: adequate Airway patency: adequate Evidence of recall: no Anesthetic complications: no Cardiovascular status: acceptable Respiratory status: acceptable Hydration status: acceptable Pt is: normothermic Nausea/Vomiting status: none Comments: To home ATOLOGIST * Anesthesia Procedure Notes - Alesha Bagley CRNA - 05/12/2019 2:05 PM CSTAssociated Order(s): Airway Airway Patient location: OR Urgency: elective Date/time: 05/12/2019 2:03 PM Indications for airway management: anesthesia Difficult airway: no Staff: Supervising provider: Fili Ceja MD Placed by: MANAGER FIELD SERVICE: Ezequiel Cox CRNA Emergent airway documentation: Risks and benefits discussed: yes Consent obtained: yes Consent given by: patient Airway prep: Preoxygenated: yes Patient position: sniffing Mask difficulty assessment: 1 - vent by mask Spontaneous ventilation during airway: absent Sedation level during airway: GA Final airway details: Final airway type: supraglottic airway Final supraglottic airway: IGel SGA size: 5 Number of attempts: 1 ATOLOGIST * Anesthesia Preprocedure Evaluation - Fili Ceja MD - 05/12/2019 12:31 PM CST Images from the original note were not included. Anesthesia Evaluation Doc Emery is a 53 y.o. male Procedure(s): INJECTION BOTOX 300 UNITS INTO BLADDER CYSTOSCOPY Pre-Op Diagnosis Codes: * Neurogenic bladder [N31.9] Patient Active Problem List Diagnosis ??? Neurogenic [...] with botox injection; receives every 6 months No Known Allergies Taking? Last Dose Start Date End Date Provider ALPRAZolam (XANAX) 0.25 mg tablet 05/11/2019 06/27/18 -- Historical Provider, atorvastatin (LIPITOR) 20 mg tablet 05/12/2019 -- -- Historical Provider, felodipine (PLENDIL) 5 mg 24 hr tablet 05/11/2019 07/19/07 -- Historical Provider, hydroCHLOROthiazide (HYDRODIURIL) 25 mg tablet 05/12/2019 -- -- Historical Provider, losartan (COZAAR) 100 mg tablet 05/12/2019 -- -- Historical Provider, POTASSIUM CHLORIDE ER 20 mEq CR tablet 05/12/2019 04/23/18 -- Historical Provider, sulfamethoxazole-trimethoprim (BACTRIM DS) 800-160 mg per tablet 05/12/2019 05/05/19 05/12/19 Marquis Lopez MD Take 1 tablet by mouth 2 (two) times a day for 7 days Current Facility-Administered Medications: ??? ceFAZolin (ANCEF) 2,000 mg/20 mL in sterile water (premix) 2,000 mg, 2,000 mg, intravenous, Once ??? Lactated Ringer's (LR) infusion, 30 mL/hr, intravenous, Continuous ??? sodium chloride 0.9% flush 0.5-20 mL, 0.5-20 mL, intra-catheter, PRN Social History Tobacco Use Smoking Status Never [...] TW Conv) ??? Anesthesia problems Neg Hx Vitals: 05/12/19 1225 BP: 140/96 Pulse: 52 Resp: 14 Temp: 36.3 ??C (97.3 ??F) SpO2: 99% PT: No results found for requested labs [...] and allergies reviewed. Attestation: This PAT evaluation 05/12/2019. Airway Exam: Mallampati: II Cervical ROM: FROM Cardiovascular Exam: Rate: regular Rhythm: regular Pulmonary Exam: LCTA, bilat EENT Exam: trachea midline Dental Exam: Appears intact Current state: Patient's current state is cooperative and interactive. Anesthesia Plan ASA 3 My patient is approved for the Anesthesia Controlled Medication protocol when under care of a MANAGER FIELD SERVICE Planned anesthesia: General Team communication plan: LMA Induction: Induction: intravenous. Postoperative Plan: No plan for postoperative opioid use. No postoperative mechanical ventilation intended. Patient's planned disposition post procedure is Outpatient. Informed Consent: Discussed plan with MANAGER FIELD SERVICE. Anesthesia plan and risks discussed with patient and spouse. Consent and Attending signature: I and/or my designee have discussed the anesthesia plan, benefits, possible alternatives, parental presence at time of induction (if indicated), and clinically relevant risks that may include dental injury, unintentional awareness, and/or other complications. The patient and/or parent/legal guardian understand, and agree to proceed. All questions answered. ATOLOGIST documented in this encounter Plan of Treatment Not on file documented as of this encounter Procedures Procedure Name Priority Date/Time Associated Diagnosis Comments [place] AN PROCEDURE PLACEHOLDER Routine 05/12/2019 2:05 PM CLIMATOLOGIST [place] AN ELECTIVE SUPRAGLOTTIC AIRWAY Routine 05/12/2019 2:05 PM CLIMATOLOGIST documented in this encounter Results * [place] AN ELECTIVE SUPRAGLOTTIC AIRWAY, [place] AN PROCEDURE PLACEHOLDER (05/12/2019 2:05 PM CLIMATOLOGIST) Narrative Alesha Bagley CRNA - 05/12/2019 2:05 PM CLIMATOLOGIST Alesha Bagley CRNA ? 05/12/2019 ??2:06 PM Airway Patient location: OR Urgency: elective Date/time: 05/12/2019 2:03 PM Indications for airway management: anesthesia Difficult airway: no Staff: Supervising provider: Fili Ceja MD Placed by: MANAGER FIELD SERVICE: Ezequiel Cox CRNA Emergent airway documentation: Risks and benefits discussed: yes Consent obtained: yes Consent given by: patient Airway prep: Preoxygenated: yes Patient position: sniffing Mask difficulty assessment: 1 - vent by mask Spontaneous ventilation during airway: absent Sedation level during airway: GA Final airway details: Final airway type: supraglottic airway Final supraglottic airway: IGel SGA size: 5 Number of attempts: 1 us Fili Ceja MD ANESTHESIA ORDERABLES Final Result documented in [...] of incision., Indications: Prophylaxis, SurgicalIndications:Prophylaxis, Surgical Given 05/12/2019 1:57 PM CLIMATOLOGIST 2,000 mg famotidine (PEPCID) injection Administer over 2 Minutes, As needed, Starting on Sun05/12/19 at 1408, Anesthesia Intra-op Given 05/12/2019 2:08 PM CLIMATOLOGIST 20 mg fentaNYL (SUBLIMAZE) preservative free injection intravenous, As needed, Starting on Sun05/12/19 at 1356, Anesthesia Intra-op Given 05/12/2019 1:58 PM CLIMATOLOGIST 25 mcg Given 05/12/2019 1:56 PM CLIMATOLOGIST 25 mcg lidocaine PF (XYLOCAINE) 10 mg/mL (1 %) preservative free injection As needed, Starting on Sun05/12/19 at 1351, Anesthesia Intra-op Given 05/12/2019 1:51 PM CLIMATOLOGIST 60 mg midazolam (VERSED) preservative free injection intravenous, Administer over 2 Minutes, As needed, Starting on Sun05/12/19 at 1343, Anesthesia Intra-op Given 05/12/2019 1:43 PM CLIMATOLOGIST 2 mg ondansetron (ZOFRAN) injection intravenous, Administer over 2 Minutes, As needed, Starting on Sun05/12/19 at 1408, Anesthesia Intra-op Given 05/12/2019 2:08 PM CLIMATOLOGIST 4 mg propofol (DIPRIVAN) IV intravenous, As needed, Starting on Sun05/12/19 at 1351, Anesthesia Intra-op Given 05/12/2019 1:51 PM CLIMATOLOGIST 200 mg documented in this encounter Care Teams Geodetic Engineer Relationship Specialty Start Date End Date Mick Flowers MD PCP - General 05/14/17 documented as of this encounter
--- OUTSIDE RECORDS SUMMARY | 2024-06-29 00:32 | XMS_ITS | Encounter Summary ---
Author Organization [facility] Address [address] [place] [address] Phone Care Team Providers Care J2Ee Consultant Name Role Phone Mick Flowers MD Primary Care Provider [phone] Encounter Details Date Type Department Care Team (Late st Contact Info) Description 08/04/2019 Orders Only [facility] Orthopaedic Surgery [address] [place] [address] Aranza Silverman PA [address] [place] [address] Chronic left-sided low back pain without sciatica; Chronic thoracic back pain, unspecified back pain laterality Social History Tobacco Use Types Packs/Day Years Used Date Smoking Tobacco: Never Smokeless Tobacco: Never Alcohol Use Standard Drinks/Week Comments Yes 21 (1 standard drink = 0.6 oz pu re alcohol) Sex and Gender Information Value Date Recorded Sex Assigned at Not on file Legal Sex Male 3:12 AM NETWORK DIRECTOR Gender Identity Not on file Sexual Orientation Not on file 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 on file Not on file documented as of this encounter Plan of Treatment Not on file documented as of this encounter Procedures Procedure Name Priority Date/Time Associated Diagnosis Comments MRI THORACIC SPINE WO CONTRAST Schedule Routine, Read Routine (OP Routine) 08/04/2019 2:36 PM NETWORK DIRECTOR Chronic thoracic back pain, unspecified back pain laterality documented in this encounter Results * MRI Thoracic Spine WO Contrast (08/04/2019 2:36 PM NETWORK DIRECTOR) Anatomical Region Laterality Modality Spine N/A Magnetic Resonan ce Aranza POTTER IM MRI PROCEDURES Final Result documented in this encounter Visit Diagnoses Diagnosis Chronic left-sided low back pain without sciatica Chronic thoracic back pain, unspecified back pain laterality documented in this encounter Care Teams J2Ee Consultant Relationship Specialty Start Date End Date Mick Flowers MD PCP - General 05/14/17 documented as of this encounter
--- OUTSIDE RECORDS SUMMARY | 2024-06-29 00:32 | XMS_ITS | Encounter Summary ---
Author Organization [facility] Address [address] [place] [address] Phone Care Team Providers Care Purchasing Contracting Clerk Name Role Phone Mick Flowers MD Primary Care Provider [phone] Encounter Details Date Type Department Care Team (Late st Contact Info) Description 07/28/2019 Orders Only [facility] Orthopaedic Surgery [address] [place] [address] [place] [address] Aranza Silverman PA [address] [place] [address] Social History Tobacco Use Types Packs/Day Years Used Date Smoking Tobacco: Never Smokeless Tobacco: Never Alcohol Use Standard Drinks/Week Comments Yes 21 (1 standard drink = 0.6 oz pu re alcohol) Sex and Gender Information Value Date Recorded Sex Assigned at Not on file Legal Sex Male 3:12 AM FOOT TENDER Gender Identity Not on file Sexual Orientation Not on file 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
--- OUTSIDE RECORDS SUMMARY | 2024-06-29 00:32 | XMS_ITS | Encounter Summary ---
Author Organization [facility] Address [address] [place] [address] Phone Care Team Providers Care Loss Prevention Consultant Name Role Phone Mick Flowers MD Primary Care Provider [phone] Reason for Referral * Diagnostic Imaging (Routine) - Canceled Specialty Diagnoses / Procedures Referred By Contac t Referred To Contact Diagnoses Chronic left-sided low back pain without sciatica Procedures MRI Lumbar Spine WO Contrast Aranza Silverman PA Phone: tel: fax: External Order Referral ID Status Reason Start Date Expiration Date V isits Requested Visits Authorized [id number] Canceled 07/08/2019 01/16/2021 1 1 ERCIAL PILOT * Diagnostic Imaging (Routine) - Closed Specialty Diagnoses / Procedures Referred By Contac t Referred To Contact Diagnoses Chronic thoracic back pain, unspecified back pain laterality Procedures MRI Thoracic Spine WO Contrast Aranza Silverman PA Phone: tel: fax: External Order Referral ID Status Reason Start Date Expiration Date Visits Re quested Visits Authorized [id number] Closed 07/08/2019 01/16/2021 1 1 ERCIAL PILOT Encounter Details Date Type Department Care Team (Late st Contact Info) Description 07/08/2019 Orders Only [facility] Orthopaedic Surgery [address] [place] [address] [place] [address] Aranza Silverman PA [address] [facility] [address] [place] [address] Chronic left-sided low back pain without sciatica (Primary Dx); Chronic thoracic back pain, unspecified back pain laterality Social History Tobacco Use Types Packs/Day Years Used Date Smoking Tobacco: Never Smokeless Tobacco: Never Alcohol Use Standard Drinks/Week Comments Yes 21 (1 standard drink = 0.6 oz pu re alcohol) Sex and Gender Information Value Date Recorded Sex Assigned at Not on file Legal Sex Male 3:12 AM COMMERCIAL PILOT Gender Identity Not on file Sexual Orientation Not on file 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 on file Not on file documented as of this encounter Plan of Treatment Not on file documented as of this encounter Results * MRI Thoracic Spine WO Contrast (08/04/2019 2:36 PM COMMERCIAL PILOT) Anatomical Region Laterality Modality Spine N/A Magnetic Resonan ce Aranza POTTER IMG MRI PROCEDURES Final Result documented in this encounter Visit Diagnoses Diagnosis Chronic left-sided low back pain without sciatica- Primary Chronic thoracic back pain, unspecified back pain laterality documented in this encounter Orders Imaging Orders Without Results Count Last Order ed Date First Ordered Date MRI LUMBAR SPINE WO CONTRAST 1 07/08/2019 documented in this encounter Care Teams Loss Prevention Consultant Relationship Specialty Start Date End Date Mick Flowers MD PCP - General 05/14/17 documented as of this encounter
--- OUTSIDE RECORDS SUMMARY | 2024-06-29 00:32 | XMS_ITS | Encounter Summary ---
Author Organization [facility] Address [address] [place] [address] Phone Care Team Providers Care Advertising Sales Agent Name Role Phone Mick Flowers MD Primary Care Provider [phone] Encounter Details Date Type Department Care Team (Late st Contact Info) Description 07/28/2019 Telephone [facility] Surgery [address] [place] [address] Terri Nicholas LPN Social History Tobacco Use Types Packs/Day Years Used Date Smoking Tobacco: Never Smokeless Tobacco: Never Alcohol Use Standard Drinks/Week Comments Yes 21 (1 standard drink = 0.6 oz pu re alcohol) Sex and Gender Information Value Date Recorded Sex Assigned at Not on file Legal Sex Male 3:12 AM ASPHALT SCREED OPERATOR Gender Identity Not on file Sexual Orientation Not on file 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 ALT SCREED OPERATOR * Telephone Encounter - Terri Nicholas LPN - 07/28/2019 12:28 PM ASPHALT SCREED OPERATOR ----- Message from Russell Mcgill CPhT sent at 07/24/2019 8:22 AM ASPHALT SCREED OPERATOR ----- Regarding: RE: APPROVAL Note below in Epic. Pre-Cert for Botox has been approved @[facility]. Thanks. #Primary Insurance# S/W Ceferino Layton @ [facility] member active effective 05/25/19 ID# [id number] 1500.00 Deductible (209.74 applied) 3000.00 Out of Pocket (209.74 applied) 80/20 Co-Insurance.DX R31.9. CPT J0585 Pre-Certification required submit to [facility] . Call ref# [id number]. S/W Scott Hernandez @ [facility] CPT J0585 available for buy/bill. S/W Tang @ [facility] Pre- Cert Pre-Determination initiated for CPT 91117. Clinicals submitted to [facility] fax. Pending ref# [id number]. Call ref# [id number]. #Secondary Insurance# S/W Jennifer Tucker @ [facility] member active effective 06/25/2019 ID# [id number] 150.00 Deductible (0.00 applied) 3000.00 Out of Pocket (0.00 applied) 45.00 Co-Pay. Per rep [facility] [employer] member - no Pre-Cert required if service covered through primary insurance. Call ref# Jennifer Tucker 07/21/2019 Fax received from [facility]. Pre-Cert CPT J0585 Botox approved effective 07/21/2019 - 07/20/2020. [id number] units (300 units/4 visits). Authorization# [id number]. Procedure to be performed at outpatient hospital [facility]. Insurance letter scanned into [facility]. [facility] . CPT 97312 no review required. 07/24/2019 ----- Message ----- From: Terri Nicholas LPN Sent: 07/15/2019 8:07 AM ASPHALT SCREED OPERATOR To: Kennedy Lozano Pre-Determination Pool Subject: APPROVAL Can he get approval for Botox 300 Units in the OR Dx: Neurogenic Bladder ALT SCREED OPERATOR documented in this encounter Plan of Treatment Not on file documented as of this encounter Visit Diagnoses Not on filedocumented in this encounter Care Teams Advertising Sales Agent Relationship Specialty Start Date End Date Mick Flowers MD PCP - General 05/14/17 documented as of this encounter
--- OUTSIDE RECORDS SUMMARY | 2024-06-29 00:32 | XMS_ITS | Encounter Summary ---
Author Organization [facility] Address [address] [place] [address] Phone Care Team Providers Care Athletic Director Name Role Phone Mick Flowers MD Primary Care Provider [phone] Encounter Details Date Type Department Care Team (Late st Contact Info) Description 09/26/2019 Telephone [facility] Urology [address] [place] [address] Terri Nicholas LPN Social History Tobacco Use Types Packs/Day Years Used Date Smoking Tobacco: Never Smokeless Tobacco: Never Alcohol Use Standard Drinks/Week Comments Yes 21 (1 standard drink = 0.6 oz pu re alcohol) Sex and Gender Information Value Date Recorded Sex Assigned at Not on file Legal Sex Male 3:12 AM TURNER AND FORMER AUTOMATIC Gender Identity Not on file Sexual Orientation Not on file 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 Patient in agreement. documented in this encounter Plan of Treatment Not on file documented as of this encounter Visit Diagnoses Not on filedocumented in this encounter Care Teams Athletic Director Relationship Specialty Start Date End Date Mick Flowers MD PCP - General 05/14/17 documented as of this encounter
--- OUTSIDE RECORDS SUMMARY | 2024-06-29 00:32 | XMS_ITS | Encounter Summary ---
Author Organization [facility] Address [address] [place] [address] Phone Care Team Providers Care Acetylene Torch Operator Name Role Phone Mick Flowers MD Primary Care Provider [phone] Reason for Visit * Reason Onset Date Comments MRI T-Spine Report 07/28/2019 Encounter Details Date Type Department Care Team (Late st Contact Info) Description 07/28/2019 Telephone [facility] Orthopaedic Surgery 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 TURNER * Telephone Encounter - Lanie Robin - 08/04/2019 2:20 PM CST MRI Thoracic Spine report received from [facility] and sent to STAT scanning. TURNER * Telephone Encounter - Marcelo Colin CMA - 07/28/2019 3:58 PM CST I refaxed the order for T-spine MRI to [facility] with the approval number [id number] and Doc will schedule his appointment at his convenience. TURNER * Telephone Encounter - Aranza Silverman PA - 07/28/2019 2:29 PM SOCK TURNER P2P completed for the MRIs of the Tspine and Lspine Tspine MRI approved Lspine MRI denied--pt has to have 6 visits of PT plus a return office visit documenting his response to PT I recommend he have the Tspine MRI to determine age of compression fracture; once we r/o acute fracture (I doubt it's acute), then he can return to PT and keep his RPV with me on 08/29/19 Please relay info to the patient, thanks TURNER documented in this encounter Plan of Treatment Not on file documented as of this encounter Visit Diagnoses Not on filedocumented in this encounter Care Teams Acetylene Torch Operator Relationship Specialty Start Date End Date Mick Flowers MD PCP - General 05/14/17 documented as of this encounter
--- OUTSIDE RECORDS SUMMARY | 2024-06-29 00:32 | XMS_ITS | Encounter Summary ---
Author Organization [facility] Address [address] [place] [address] Care Team Providers Care Corrections Lieutenant Name Role Phone Mick Flowers MD Primary Care Provider [phone] Reason for Referral * Diagnostic Imaging (Routine) - Closed Specialty Diagnoses / Procedures Referred By Contac t Referred To Contact Diagnoses Chronic left-sided low back pain without sciatica Procedures X-ray lumbar spine complete 4+ views Aranza Silverman PA Phone: tel: fax: [address] [address] Referral ID Status Reason Start Date Expiration Date Visits Re quested Visits Authorized [id number] Closed 07/04/2019 01/12/2021 1 1 DUST SPRAYER Reason for Visit * Diagnostic Imaging (Routine) - Closed Specialty Diagnoses / Procedures Referred By Contac t Referred To Contact Diagnoses Chronic left-sided low back pain without sciatica Procedures X-ray lumbar spine complete 4+ views Aranza Silverman PA Phone: tel: fax: [address] [address] Referral ID Status Reason Start Date Expiration Date Visits Re quested Visits Authorized [id number] Closed 07/04/2019 01/12/2021 1 1 Encounter Details Date Type Department Care Team (Latest Contact Info) Description 07/04/2019 8:49 AM ROCK DUST SPRAYER - 07/04/2019 11:59 PM ROCK DUST SPRAYER Hospital Encounter [facility] [address] [place] [address] Aranza Silverman PA [address] [place] [address] Chronic low back pain, unspecified back pain [...] on file Legal Sex Male 3:12 AM ROCK DUST SPRAYER Gender Identity Not on file Sexual Orientation [...] 20 mg by mouth every morning 2 EDEX 20 [...] VIEWS Schedule Routine, Read Routine (OP Routine) 07/04/2019 9:00 AM ROCK DUST SPRAYER Chronic low back pain, unspecified back pain laterality, unspecified whether sciatica present documented in this encounter Results * X-ray lumbar spine complete 4+ views (07/04/2019 9:00 AM ROCK DUST SPRAYER) Anatomical Region Laterality Modality Spine N/A Computed Radiogr aphy 07/04/2019 10:0 7 AM ROCK DUST SPRAYER Impressions 07/04/2019 5:47 PM ROCK DUST SPRAYER 1. ??Rotary dextroscoliosis of lumbar spine with likely trace retrolisthesis of L2 on L3 and L3 on L4. 2. ??Age-indeterminate compression deformity of T11. 3. ??Mild multilevel degenerative disc disease from L4 to S1. Dictated by: Aga Salazar M.D. The radiology attending physician has personally reviewed this study, and had reviewed and/or edited this written report and agrees with it. Electronically signed by: Rosario Dobbs MD Narrative 07/04/2019 5:47 PM ROCK DUST SPRAYER EXAMINATION: XR SPINE LUMBAR 4 OR MORE VIEWS HISTORY: Lumbar spondylosis FINDINGS: A 4 view examination of the lumbar spine including flexion and extension views was performed without prior studies available for comparison. Patient is mildly rotated on the lateral view. ??There is likely trace retrolisthesis of L2 on L3 and L3 on L4. ??There is no change with flexion or extension. ??There is rotary dextroscoliosis of the lumbar spine, apex at L3. There is an age-indeterminate compression deformity of vertebral body T11 with mild height loss. There is mild multilevel degenerative disc disease from L4 to S1. Procedure Note Sneha Dobbs MD - 07/04/2019 EXAMINATION: XR SPINE LUMBAR 4 OR MORE VIEWS HISTORY: Lumbar spondylosis FINDINGS: A 4 view examination of the lumbar spine including flexion and extension views was performed without prior studies available for comparison. Patient is mildly rotated on the lateral view. There is likely trace retrolisthesis of L2 on L3 and L3 on L4. There is no change with flexion or extension. There is rotary dextroscoliosis of the lumbar spine, apex at L3. There is an age-indeterminate compression deformity of vertebral body T11 with mild height loss. There is mild multilevel degenerative disc disease from L4 to S1. IMPRESSION: 1. Rotary dextroscoliosis of lumbar spine with likely trace retrolisthesis of L2 on L3 and L3 on L4. 2. Age-indeterminate compression deformity of T11. 3. Mild multilevel degenerative disc disease from L4 to S1. Dictated by: Aga Salazar M.D. The radiology attending physician has personally reviewed this study, and had reviewed and/or edited this written report and agrees with it. Electronically signed by: Rosario Dobbs MD Aranza P[facility] IM[facility] XR PROCEDURES Final Result documented in this encounter Visit Diagnoses Diagnosis Chronic low back pain, unspecified back pain laterality, unspecified whether sciatica present documented in this encounter Care Teams Corrections Lieutenant Relationship Specialty Start Date End Date Mick Flowers MD PCP - General 05/14/17 documented as of this encounter
--- OUTSIDE RECORDS SUMMARY | 2024-06-29 00:32 | XMS_ITS | Encounter Summary ---
Author Organization [facility] Address [address] [place] [address] Phone Care Team Providers Care Elementary School Tutor Name Role Phone Mick Flowers MD Primary Care Provider [phone] Encounter Details Date Type Department Care Team (Late st Contact Info) Description 09/09/2019 Telephone [facility] Orthopaedic Surgery [address] [facility] Advanced Medicine 12th [place] [address] [place] [address] Aranza Silverman PA [address] [place], [place] [id number] Social History Tobacco Use Types Packs/Day Years Used Date Smoking Tobacco: Never Smokeless Tobacco: Never Alcohol Use Standard Drinks/Week Comments Yes 21 (1 standard drink = 0.6 oz pu re alcohol) Sex and Gender Information Value Date Recorded Sex Assigned at Not on file Legal Sex Male 3:12 AM LAW REPORTER Gender Identity Not on file Sexual Orientation Not on file 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 Slaughter on 09/12/2019. L4-L5: There is a mild disc bulge. There is moderate facet arthropathy. There is no neuroforaminal stenosis. There is no spinal canal stenosis documented in this encounter Plan of Treatment Not on file documented as of this encounter Visit Diagnoses Not on filedocumented in this encounter Care Teams Elementary School Tutor Relationship Specialty Start Date End Date Mick Flowers MD PCP - General 05/14/17 documented as of this encounter
--- OUTSIDE RECORDS SUMMARY | 2024-06-29 00:32 | XMS_ITS | Encounter Summary ---
Author Organization [facility] Address [address] [place] [address] Phone Care Team Providers Care Chocolate Finisher Name Role Phone Mick Flowers MD Primary Care Provider Reason for Referral * Diagnostic Imaging (Routine) - Closed Specialty Diagnoses / Procedures Referred By Contac t Referred To Contact Radiology Diagnoses Chronic left-sided low back pain without sciatica Procedures MRI Lumbar Spine WO Contrast Aranza Silverman PA Phone: tel: fax: [facility] [address] [place] [address] Referral ID Status Reason Start Date Expiration Date Visits Re quested Visits Authorized [id number] Closed 08/29/2019 03/09/2021 1 1 OL POLICE SERGEANT Reason for Visit * Reason Comments Pain Encounter Details Date Type Department Care Team (Late st Contact Info) Description 08/29/2019 9:00 AM PATROL POLICE SERGEANT Office Visit [facility] Orthopaedic Surgery [address] [facility] Advanced Medicine [address]th [place] [address] [place] [address] Aranza Silverman PA [address] [place] [address] Chronic left-sided low back pain without sciatica (Primary Dx) Social History Tobacco Use Types Packs/Day Years Used Date Smoking Tobacco: Never Smokeless Tobacco: Never Alcohol Use Standard Drinks/Week Comments Yes 21 (1 standard drink = 0.6 oz pu re alcohol) Sex and Gender Information Value Date Recorded Sex Assigned at Not on file Legal Sex Male 3:12 AM PATROL POLICE SERGEANT Gender Identity Not on file Sexual Orientation Not on file 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 If so, we can schedule you with our group for the injection. If not, then we will proceed with the planned referral to pain management for consultation regarding procedure lumbar facet joint medial branch blocks and radiofrequency ablation. Thank you. OL POLICE SERGEANT documented in this encounter Progress Notes * Aranza Silverman PA - 08/29/2019 9:00 AM CST ESTABLISHED PATIENT VISIT Subjective/Objective Patient ID: Doc Emery is a 53 y.o. male. CHIEF COMPLAINT Left-sided lower back pain HISTORY OF PRESENT ILLNESS: Patient is a 53-year-old male with a history of multiple sclerosis who presents for return evaluation of pain in the lower back on the left side. He was seen 8 weeks ago and was sent for PT. He was able to see the PT and go through home exercise program. His pain is unchanged and remains on the left side of the lower back. Pain does not radiate into the buttock or the leg. It is a constant achingand tightness. Symptoms are worse with rotation of the lumbar spine as well as prolonged standing. He has found relief of pain with nothing although rest sometimes does alleviate the symptoms. Patient has tried ibuprofen, aleve, and tylenol without relief of pain. Due to his multiple sclerosis, he has chronic urinary incontinence and retention issues. He has Botox injections into the bladder routinely and this has helped tremendously. He does still self catheterize because of urinary retention.He denies bowel incontinence. ?? MEDICAL/SURGICAL/FAMILY/SOCIAL HISTORY-reviewed in chart REVIEW OF SYSTEMS - Constitutional: negative for fever, chills, night sweats; GI: negative for bowel incontinence PHYSICAL EXAM: Alert, oriented and cooperative. Mood and affect appropriate. Gait without deviation. Skin warm and dry. Standing posture erect without forward leaning or hyperlordosis. Respirations even unlabored. No cyanosis, clubbing or edema. Lumbar range of motion with painful extension and left lateral rotation/flexion, forward flexion and right lateral movment. Sit slump negative bilateral.Reflexes 2+ bilateral patella and 2+ Achilles. Manual muscle testing to bilateral hip flexors, kneeextension/flexion, ankle dorsiflexion and EHL is 5/5. Active straight leg raise without difficulty bilaterally. Palpation to the lumbar spinous processes are tender on the left in the lower lumbar spine and paraspinal muscles are nontender. PSIS palpation reveals no tenderness. Hip range of motion within normal range and nonpainful bilaterally. Negative bilateral log roll. Negative bilateral Nelida's testing. Negative left Posterior thigh thrust, negative left Gaenslen's testing. Sensation to light touch grossly normal to the lower extremities. Negative clonus. IMAGING: No new films today. ASSESSMENT: Axial low back pain, left-sided and facet-mediated TREATMENT PLAN: Patient is a 53-year-old male with a history of multiple sclerosis who presents for return evaluation of pain in the lower back on the left side. History and physical remain consistent with axial lowback pain that is facet-mediated on the left side. Patient would benefit from injection into the left L4-5 facet joints. He needs an MRI of the lumbar spine first and this was scheduled. Results willbe reviewed via Client[facility]. His insurance plan most likely would not cover steroid injection into the facet joint, so we will need to proceed with pain management referral for LMBB/RFA consultation. Once his treatment course is complete with pain management, he will contact the clinic with an updateon symptoms. Findings and plan reviewed, questions answered, and the patient is in agreement. FOLLOW UP: via Clientele after MRI, over the phone after pain management treatment course ISABELL Westfall PA-C [facility] Orthopedics Collaborative practice with Dr. Usman Almanzar and Dr. Carol Cifuentes OL POLICE SERGEANT documented in this encounter Plan of Treatment Not on file documented as of this encounter Results * MRI Lumbar Spine WO Contrast (09/09/2019 9:50 AM CDT) Anatomical Region Laterality Modality Spine N/A Magnetic Resonan ce 09/09/2019 11:2 3 AM CDT Impressions 09/09/2019 11:30 AM CDT Mild degenerative changes of the lumbar spine as described in detail above. Dictated by: Gerardo Prather M.D. The radiology attending physician has personally reviewed this study, and had reviewed and/or edited this written report and agrees with it. Electronically signed by: Daphne Garcia M.D. Narrative 09/09/2019 11:30 AM CDT EXAMINATION: Magnetic resonance imaging (MRI) of the lumber spine without contrast. HISTORY: Low back pain. TECHNIQUE: Multiplanar multi-weighted MRI of the lumbar spine was performed without ??intravenous contrast using the standard lumbar spine protocol. [...] There is no spinal canal stenosis. L2-L3: ??The disc is normal in configuration. There is mild facet arthropathy. There is no neuroforaminal stenosis. There is no spinal canal stenosis L3-L4: ??The disc is normal in configuration. There is mild facet arthropathy. There is no neuroforaminal stenosis. There is no spinal canal stenosis L4-L5: ??There is a mild disc bulge. There is moderate facet arthropathy. There is no neuroforaminal stenosis. There is no spinal canal stenosis L5-S1: ??There is a small disc bulge. There is mild facet arthropathy. There is no neuroforaminal stenosis. There is no spinal canal stenosis Procedure Note Daphne Delong MD - 09/09/2019 EXAMINATION: Magnetic resonance imaging (MRI) of the [...] stenosis. There is no spinal canal stenosis IMPRESSION: Mild degenerative changes of the lumbar spine as described in detail above. Dictated by: Gerardo Prather M.D. The radiology attending physician has personally reviewed this study, and had reviewed and/or edited this written report and agrees with it. Electronically signed by: Daphne Garcia M.D. Aranza [facility] [place] PROCEDURES Final Result documented in this encounter Visit Diagnoses Diagnosis Chronic left-sided low back pain without sciatica- Primary Chronic left-sided low back pain without sciatica documented in this encounter Care Teams Chocolate Finisher Relationship Specialty Start Date End Date Mick Flowers MD PCP - General 05/14/17 documented as of this encounter
--- OUTSIDE RECORDS SUMMARY | 2024-06-29 00:32 | XMS_ITS | Encounter Summary ---
Author Organization [facility] Address [address] [place] [address] Care Team Providers Care Information Assistant Name Role Phone Mick Flowers MD Primary Care Provider [phone] Reason for Referral * Diagnostic Imaging (Routine) - Closed Specialty Diagnoses / Procedures Referred By Contac t Referred To Contact Radiology Diagnoses Chronic left-sided low back pain without sciatica Procedures MRI Lumbar Spine WO Contrast Aranza Silverman PA Phone: tel: fax: [address] [address] Referral ID Status Reason Start Date Expiration Date Visits Re quested Visits Authorized [id number] Closed 08/29/2019 03/09/2021 1 1 Reason for Visit * Diagnostic Imaging (Routine) - Closed Specialty Diagnoses / Procedures Referred By Contac t Referred To Contact Radiology Diagnoses Chronic left-sided low back pain without sciatica Procedures MRI Lumbar Spine WO Contrast Aranza Silverman PA Phone: tel: fax: [address] [address] Referral ID Status Reason Start Date Expiration Date Visits Re quested Visits Authorized [id number] Closed 08/29/2019 03/09/2021 1 1 Encounter Details Date Type Department Care Team (Latest Contact Info) Description 09/09/2019 8:52 AM CDT - 09/09/2019 11:59 PM CDT Hospital Encounter [facility] [place] [facility] [address] [place] [address] Carol Cifuentes MD [address] [facility] [address] [place] [address] Aranza Silverman PA [address] [place] [address] Chronic left-sided low back pain without sciatica Discharge Disposition: Discharge to home or self care Social History Tobacco Use Types Packs/Day Years Used Date Smoking Tobacco: Never Smokeless Tobacco: Never Alcohol Use Standard Drinks/Week Comments Yes 21 (1 standard drink = 0.6 oz pu re alcohol) Sex and Gender Information Value Date Recorded Sex Assigned at Not on file Legal Sex Male 3:12 AM MATERIAL DISPATCHER Gender Identity Not on file Sexual Orientation [...] CONTRAST Schedule Routine, Read Routine (OP Routine) 09/09/2019 9:50 AM CDT Chronic left-sided low back pain without sciatica documented in this encounter Results * MRI [...] signed by: Daphne Garcia M.D. Aranza [facility] IM MRI PROCEDURES Final Result documented in this encounter Visit Diagnoses Diagnosis Chronic left-sided low back pain without sciatica documented in this encounter Care Teams Information Assistant Relationship Specialty Start Date End Date Mick Flowers MD PCP - General 05/14/17 documented as of this encounter
--- OUTSIDE RECORDS SUMMARY | 2024-06-29 00:32 | XMS_ITS | Encounter Summary ---
Author Organization [facility] Care Team Providers Care Olap Developer Name Role Phone Mick Flowers MD Primary Care Provider [phone] Encounter Details Date Type Department Care Team (Latest Contact Info) Description 05/12/2019 Travel Social History Tobacco Use Types Packs/Day Years Used Date Smoking Tobacco: Never Smokeless Tobacco: Never Alcohol Use Standard Drinks/Week Comments Yes 21 (1 standard drink = 0.6 oz pu re alcohol) Sex and Gender Information Value Date Recorded Sex Assigned at Not on file Legal Sex Male 3:12 AM PUFFER TENDER Gender Identity Not on file Sexual Orientation Not on file documented as of this encounter Plan of Treatment Not on file documented as of this encounter Visit Diagnoses Not on filedocumented in this encounter Care Teams Olap Developer Relationship Specialty Start Date End Date Mick Flowers MD PCP - General 05/14/17 documented as of this encounter
--- OUTSIDE RECORDS SUMMARY | 2024-06-29 00:32 | XMS_ITS | Encounter Summary ---
Author Organization [facility] Address [address] [place] [address] Phone Care Team Providers Care Gem Setter Name Role Phone Mick Flowers MD Primary Care Provider [phone] Encounter Details Date Type Department Care Team (Late st Contact Info) Description 07/28/2019 Orders Only [facility] Orthopaedic Surgery [address] [facility] Advanced Medicine 6th [place] [address] [place] [id number] Aranza Silverman PA [address] [place] [address] Social History Tobacco Use Types Packs/Day Years Used Date Smoking Tobacco: Never Smokeless Tobacco: Never Alcohol Use Standard Drinks/Week Comments Yes 21 (1 standard drink = 0.6 oz pu re alcohol) Sex and Gender Information Value Date Recorded Sex Assigned at Not on file Legal Sex Male 3:12 AM DISTRICT SALES MANAGER Gender Identity Not on file Sexual Orientation Not on file 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
--- OUTSIDE RECORDS SUMMARY | 2024-06-29 00:32 | XMS_ITS | Encounter Summary ---
Author Organization [facility] Address [address] [place] [address] Phone Care Team Providers Care Temperature Logging Operator Name Role Phone Mick Flowers MD Primary Care Provider [phone] Encounter Details Date Type Department Care Team (Late st Contact Info) Description 08/18/2019 Orders Only [facility] Surgery [address] [place] [id number] Marquis Lopez MD [address] [place], [place] [id number] Urinary tract infection without hematuria, site unspecified (Primary Dx) Social History Tobacco Use Types Packs/Day Years Used Date Smoking Tobacco: Never Smokeless Tobacco: Never Alcohol Use Standard Drinks/Week Comments Yes 21 (1 standard drink = 0.6 oz pu re alcohol) Sex and Gender Information Value Date Recorded Sex Assigned at Not on file Legal Sex Male 3:12 AM REHEATER Gender Identity Not on file Sexual Orientation Not on file 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 Final ??Specimen Source: ?? URINE ??Specimen Quality: ??Adequate ??Result: ?No Growth Urine, bladder 08/19/2019 3: 14 PM REHEATER 08/19/2019 3:16 PM REHEATER Narrative Resulting Agency Comment Performing Organization Information: ?Site ID: ?Name[facility] ?Address: [facility] [place] [address] ?Director: Vianney Arciniega Marquis Lopez MD LAB MICROBIOLOGY - GENERAL ORD ERABLES Final Result [facility] [place], [place] documented in this encounter Visit Diagnoses Diagnosis Urinary tract infection without hematuria, site unspecified- Primary documented in this encounter Care Teams Temperature Logging Operator Relationship Specialty Start Date End Date Mick Flowers MD PCP - General 05/14/17 documented as of this encounter
--- OUTSIDE RECORDS SUMMARY | 2024-06-29 00:32 | XMS_ITS | Encounter Summary ---
Author Organization [facility] Facility Care Team Providers Care Program Rep Name Role Phone Mick Flowers MD Primary Care Provider [phone] Encounter Details Date Type Department Care Team (Latest Contact Info) Description 08/29/2019 Travel Social History Tobacco Use Types Packs/Day Years Used Date Smoking Tobacco: Never Smokeless Tobacco: Never Alcohol Use Standard Drinks/Week Comments Yes 21 (1 standard drink = 0.6 oz pu re alcohol) Sex and Gender Information Value Date Recorded Sex Assigned at Not on file Legal Sex Male 3:12 AM CUSTOMER RELATIONS ASSISTANT Gender Identity Not on file Sexual Orientation Not on file 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
--- OUTSIDE RECORDS SUMMARY | 2024-06-29 00:32 | XMS_ITS | Encounter Summary ---
Author Organization [facility] Address [address] [place] [address] Phone Care Team Providers Care Language Arts Teacher Name Role Phone Mick Flowers MD Primary Care Provider [phone] Encounter Details Date Type Department Care Team (Late st Contact Info) Description 08/18/2019 Telephone 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
--- OUTSIDE RECORDS SUMMARY | 2024-06-29 00:32 | XMS_ITS | Encounter Summary ---
Author Organization [facility] Address [address] [place] [address] Phone Care Team Providers Care Forensic Document Examiner Name Role Phone Mick Flowers MD Primary Care Provider [phone] Reason for Referral * Diagnostic Imaging (Routine) - Closed Specialty Diagnoses / Procedures Referred By Contac t Referred To Contact Diagnoses Chronic left-sided low back pain without sciatica Procedures X-ray lumbar spine complete 4+ views Aranza Silverman PA Phone: tel: fax: [facility] [address] [place] [address] Referral ID Status Reason Start Date Expiration Date Visits Re quested Visits Authorized [id number] Closed 07/04/2019 01/12/2021 1 1 OR OF AUDIOLOGY Reason for Visit * Reason Comments Pain Encounter Details Date Type Department Care Team (Late st Contact Info) Description 07/04/2019 8:00 AM DOCTOR OF AUDIOLOGY Office Visit [facility] Orthopaedic Surgery [address] [place] [address] [place] [address] Aranza Silverman PA [address] [place] [address] Chronic left-sided low back pain without sciatica (Primary Dx) Social History Tobacco Use Types Packs/Day Years Used Date Smoking Tobacco: Never Smokeless Tobacco: Never Alcohol Use Standard Drinks/Week Comments Yes 21 (1 standard drink = 0.6 oz pu re alcohol) Sex and Gender Information Value Date Recorded Sex Assigned at Not on file Legal Sex Male 3:12 AM DOCTOR OF AUDIOLOGY Gender Identity Not on file Sexual Orientation [...] - Inhaled Oxygen Concentration - - Weight 83.5 kg (184 lb) 07/04/2019 7:59 AM DOCTOR OF AUDIOLOGY Height 177.8 cm (5' 10 ) 07/04/2019 7:59 AM DOCTOR OF AUDIOLOGY Body Mass Index 26.4 07/04/2019 7:59 AM DOCTOR OF AUDIOLOGY documented in this encounter Progress Notes * Aranza Silverman PA - 07/04/2019 8:00 AM CST NEW PATIENT VISIT Subjective/Objective Patient ID: Doc Emery is a 53 y.o. male. CHIEF COMPLAINT Lower back pain HISTORY OF PRESENT ILLNESS Patient is a 53-year-old male with a history of multiple sclerosis who presents for initial evaluation of pain in the lower back on the left side. Pain does not radiate into the buttock or the leg. It is a constant aching and tightness. Symptoms are worse with rotation of the lumbar spine as well as prolonged standing. He has found relief of pain with nothing although rest sometimes does alleviate the symptoms. He has been to a chiropractor without relief. He went to physical therapy about a year ago for 2-3 visits it. He states that he felt the exercises could be done easily at home the which is the reason why he elected not to return for continued visits. He felt that this did not bring relief of pain. He exercises 3 days per week and is very active. Due to his multiple sclerosis, he has chronic urinary incontinence and retention issues. He has Botox injections into the bladder routinely and this has helped tremendously. He does still self catheterize because of urinary retention. He denies bowel incontinence. PMH He has a past medical history of Coronary artery disease, Hypertension, and Multiple sclerosis ([facility]). He also has no past medical history of Acute respiratory failure requiring reintubation ([facility]), Asthma, Atrial fibrillation ([facility]/HCC), Awareness under anesthesia, CHF (congestive heart failur e) ([facility]), Chronic bronchitis ([facility]/HCC), COPD (chronic obstructive pulmonary disease) ([facility]),Delayed emergence from general anesthesia, GERD (gastroesophageal reflux disease), Hard to intubate, Hyperthyroidism, Hypothyroidism, Malignant hyperthermia, Motion sickness, PONV (postoperative nausea and vomiting), Postoperative delirium, Pseudocholinesterase deficiency, Seizures ([facility]), Sleepapnea, Stroke ([facility]), or Type 2 diabetes mellitus ([facility]). PSH He Past Surgical History: Procedure Laterality Date ??? CYSTOSCOPY with botox injection; receives every 6 months FAMILY HISTORY He family history includes Alcohol abuse in his father; Cancer in his father and mother; Hypertension in his father and another family member; Melanoma in his mother; Multiple sclerosis in an other family member. ALLERGIES He has No Known Allergies. MEDICATIONS He Current Outpatient Medications: ??? ALPRAZolam (XANAX) 0.25 mg tablet, TK 2 TS PO QPM FOR SLEEP, Disp: , Rfl: 1 ??? atorvastatin (LIPITOR) 20 mg tablet, Take 20 mg by mouth every morning , Disp: , Rfl: ??? EDEX 20 mcg injection, , Disp: , Rfl: ??? felodipine (PLENDIL) 5 mg 24 hr tablet, Take 5 mg by mouth every morning , Disp: , Rfl: ??? hydroCHLOROthiazide (HYDRODIURIL) 25 mg tablet, Take 25 mg by mouth daily, Disp: , Rfl: ??? losartan (COZAAR) 100 mg tablet, Take 100 mg by mouth every morning , Disp: , Rfl: ??? POTASSIUM CHLORIDE ER 20 mEq CR tablet, TAKE 1 T PO DAILY - morning, Disp: , Rfl: 5 SOCIAL HISTORY He reports that he has never smoked. He has never used smokeless tobacco. He reports current alcohol use of about 21.0 standard drinks of alcohol per week. He reports that he does not use drugs. REVIEW OF SYSTEMS: 12 systems review negative. PHYSICAL EXAM: Alert, oriented and cooperative. Mood [...] left Posterior thigh thrust, negative left Gaenslen's testing, negative SIJ compression test, negative bilateral Dubuque's test. Sensation to light touch grossly normal to the lower extremities. Negative clonus. IMAGING: Imaging of lumbar spine ordered today and reviewed by me revealing dextroscoliosis, mild facet OA and DDD throughout the lumbar spine. ASSESSMENT: Left-sided axial lower back pain TREATMENT PLAN: Patient is a 53-year-old male with a history of multiple sclerosis who presents for initial evaluation of pain in the lower back on the left side. History and physical are consistent with axial and facet-mediated lumbar spine pain. Patient has not had much in the way of directed physical therapy and I advised that he start a formal course of physical therapy for at least 6 visits. He was given orders to be seen at the [facility] PT clinic in [place], [place]. He will return to our clinic in 8 weeks for reassessment. Should his pain persist, we may then consider obtaining lumbar spine MRI and plan for facet joint injection. Findings and plan reviewed, questions answered, and the patient is in agreement. FOLLOW UP: 8 weeks ISABELL Westfall [facility] Collaborative practice with Dr. Usman Almanzar and Dr. Carol Cifuentes OR OF AUDIOLOGY documented in this encounter Plan of Treatment Not on file documented as of this encounter Results * X-ray lumbar spine complete 4+ views (07/04/2019 9:00 AM DOCTOR OF AUDIOLOGY) Anatomical Region Laterality Modality Spine N/A Computed Radiogr aphy 07/04/2019 10:0 7 AM DOCTOR OF AUDIOLOGY Impressions 07/04/2019 5:47 PM DOCTOR OF AUDIOLOGY 1. ??Rotary dextroscoliosis of lumbar spine with [...] it. Electronically signed by: Rosario Dobbs MD [facility] 07/04/2019 5:47 PM DOCTOR OF AUDIOLOGY EXAMINATION: XR SPINE LUMBAR 4 OR MORE [...] low back pain without sciatica- Primary Chronic low back pain, unspecified back pain laterality, unspecified whether sciatica present documented in this encounter Historical Medications * This list may reflect changes made after this encounter. EDEX 20 mcg injection 20 mcg by intracavity route as needed for erectile dysfunction 06/11/2019 3 added in this encounter Care Teams Forensic Document Examiner Relationship Specialty Start Date End Date Mick Flowers MD PCP - General 05/14/17 documented as of this encounter
--- OUTSIDE RECORDS SUMMARY | 2024-06-29 00:33 | XMS_ITS | Encounter Summary ---
Author Organization [facility] Address [address] [place] [address] Care Team Providers Care Obstetrician/Gynecologist Name Role Phone Mick Flowers MD Primary Care Provider [phone] Encounter Details Date Type Department Care Team (Late st Contact Info) Description 05/12/2019 9:40 AM SENIOR LINUX UNIX ADMINISTRATOR - 05/12/2019 3:32 PM SENIOR LINUX UNIX ADMINISTRATOR Hospital Encounter [facility] Operating Room [address] [place] [address] Marquis Lopez MD [address] [facility] [place] [address] Discharge Disposition: Discharge to home or self care Social History Tobacco Use Types Packs/Day Years Used Date Smoking Tobacco: Never Smokeless Tobacco: Never Alcohol Use Standard Drinks/Week Comments Yes 21 (1 standard drink = 0.6 oz pu re alcohol) Sex and Gender Information Value Date Recorded Sex Assigned at Not on file Legal Sex Male 3:12 AM SENIOR LINUX UNIX ADMINISTRATOR Gender Identity Not on file Sexual Orientation Not on file documented as of this encounter Last Filed Vital Signs Vital Sign Reading Time Taken Comments Blood Pressure 109/71 05/12/2019 3:10 PM SENIOR LINUX UNIX ADMINISTRATOR Pulse 54 05/12/2019 3:10 PM SENIOR LINUX UNIX ADMINISTRATOR Temperature 36 ??C (96.8 ??F) 05/12/2019 2:20 PM SENIOR LINUX UNIX ADMINISTRATOR Respiratory Rate 13 05/12/2019 3:10 PM SENIOR LINUX UNIX ADMINISTRATOR Oxygen Saturation 94% 05/12/2019 3:10 PM SENIOR LINUX UNIX ADMINISTRATOR Inhaled Oxygen Concentration - - Weight 83.5 kg (184 lb) 05/12/2019 12:25 PM SENIOR LINUX UNIX ADMINISTRATOR Height 177.8 cm (5' 10 ) 05/12/2019 12:25 PM SENIOR LINUX UNIX ADMINISTRATOR Body Mass Index 26.4 05/12/2019 12:25 PM SENIOR LINUX UNIX ADMINISTRATOR documented in this encounter Discharge Diagnoses Diagnosis Neuromuscular dysfunction of bladder, unspecified - NEUROMUSCULAR DYSFUNCTION OF BLADDER, UNSPECIFIED Urge incontinence - URGE INCONTINENCE Essential (primary) hypertension - ESSENTIAL (PRIMARY) HYPERTENSION Unspecified essential hypertension Multiple sclerosis (HCC) - MULTIPLE SCLEROSIS Multiple sclerosis Other prison (current) drug therapy - OTHER GAMING CAGE WORKER (CURRENT) DRUG THERAPY documented in this encounter Discharge Instructions * Discharge Instructions* Lauren Coleman MD - 05/12/2019 1:33 PM SENIOR LINUX UNIX ADMINISTRATOR Discharge Instructions Diagnosis: Overactive Bladder Surgery performed: [...] Call to schedule an appointment as needed. [phone] Future Appointments Date Time Provider Department Center 05/29/2019 8:30 AM TARIQ Angelo [facility] Contact your doctor if: - Fever over 100.8F - Pain uncontrolled by prescribed medications - Nausea/vomiting - Persistent pain greater than 2 weeks - Unable to urinate Sunday through Sunday, 8 AM to 4:30 PM, call [phone] and ask for a member of your doctor's team. For urgent matters after 6:00 PM during the week, on weekends and holidays, call [phone] and ask to have the Urology Rn Palliative Physician paged for you. OR LINUX UNIX ADMINISTRATOR * Attachments The following attachments cannot be sent through Care Everywhere. * [facility] PATHWAY TO EXCELLENT CARE AFTER SURGERY [...] 300 units of Botox in the Or OR LINUX UNIX ADMINISTRATOR documented in this encounter Miscellaneous Notes * [...] into the bladder Surgeon: Marquis Lopez MD Hull Line Crew Member: Lauren Coleman MD Anesthesia: General Complications: None [...] Lopez, was present throughout the surgery. OR LINUX UNIX ADMINISTRATOR * Brief Op Note - Marquis Lopez MD - 05/12/2019 12:40 PM CST Operative Progress Note Surgical Team: Surgeon(s) and Role: * Marquis Lopez MD - Primary * Lauren Coleman MD - Resident - Assisting Anesthesiologist: Fili Ceja MD RETAIL PRODUCT DEMO SPECIALIST: Ezequiel Cox CRNA; Alesha Bagley CRNA Communication Instructor: Beth Romero RN Scrub: Daylin Goodwin RN; [...] room was stable Juice Lopez MD Date: 05/12/2019 Time: 2:10 PM TEACHING ATTESTATION : I was present and directly participated in the entire procedure (including opening and closing). OR LINUX UNIX ADMINISTRATOR documented in this encounter Plan of Treatment Not on file documented as of this encounter Procedures Procedure Name Priority Date/Time Associated Diagnosis Comments CYSTOSCOPY 05/12/2019 1:45 PM SENIOR LINUX UNIX ADMINISTRATOR Neurogenic bladder Special Needs 200 units of Botox to be mixed with 20 cc normal saline in OR; Wilver needle for injection INJECTION BOTOX 05/12/2019 1:45 PM SENIOR LINUX UNIX ADMINISTRATOR Neurogenic bladder Special Needs 200 units of [...] 1245, Pre-Op New Bag 05/12/2019 12:39 PM SENIOR LINUX UNIX ADMINISTRATOR 30 mL/hr 30 mL /hr documented in this encounter Active and Recently Administered Medications Times are shown in SENIOR LINUX UNIX ADMINISTRATOR. Scheduled Medication Order 05/10/2019 05/11/2019 05/12/2019 acetaminophen [...] intra-catheter, As needed, line care, Starting on 05/12/19 at 1203, Pre-Op, Flush volume based on [...] 0.4 mg/mL injection 0.04-0.4 mg 1 05/12/2019 onabotulinumtoxin A (botulin um toxin type A, BOTOX) 200 unit/20 mL in sodium chloride 0.9% 1 05/12/2019 ondansetron (ZOFRAN) injection 4 mg 1 05/12 oxyCODONE (ROXICODONE) tablet 10 mg 1 05/12 sodium chloride 0.9 % irrigation 1 05/12/20 19 sodium chloride 0.9% flush 0.5-20 mL 1 04/25 documented in this encounter Care Teams Obstetrician/Gynecologist Relationship Specialty Start Date End Date Mick Flowers MD PCP - General 05/14/17 documented as of this encounter
--- OUTSIDE RECORDS SUMMARY | 2024-06-29 00:33 | XMS_ITS | Encounter Summary ---
Author Organization [facility] Facility Care Team Providers Care Relationship Mgr Name Role Phone Mick Flowers MD Primary Care Provider [phone] Encounter Details Date Type Department Care Team (Late st Contact Info) Description 11/30/2014 5:49 AM CDT - 11/30/2014 4:00 PM T Hospital Encounter [facility] Papo Dhillon Multiple sclerosis (HCC); Neurogenic bladder; Urethral stricture; Encounter for long-term (current) use of other medications Social History Tobacco Use Types Packs/Day Years Used Date Smoking Tobacco: Never Assessed Sex and Gender Information Value Date Recorded Sex Assigned at Not on file Legal Sex Male 3:12 AM ENGINE BUILDUP MECHANIC Gender Identity Not on file Sexual Orientation Not on file documented as of this encounter Medications at Time of Discharge felodipine (PLENDIL) 5 mg 24 hr tabletIndications :hypertension Take 1 tablet (5 mg total) by mouth 2 (two) times a day 07/19/2007 documented as of this encounter Miscellaneous Notes * Op Note - Provider, MD Bettie - 11/30/2014 12:00 AM CDT Patient: Doc Emery Reg No: [id number] H #: [id number] Admit Dt.: 11/30/2014 : 1965 Pt Type: 200 Room No: [facility] Attending: Papo Ellsworth M.D. Surgeon: Papo Ellsworth M.D. Dictating: Papo Ellsworth M.D. Service Dt: 11/30/2014 OPERATIVE REPORT FIRST FERTILIZER APPLICATOR: Dr. Meek Myers. SECOND/THIRD FERTILIZER APPLICATOR: Dr. Nelson Romero. ANESTHESIA: General. PREOPERATIVE DIAGNOSIS (ES): Neurogenic bladder from multiple sclerosis. Membranous and urethral stricture and meatal stenosis. POSTOPERATIVE DIAGNOSIS (ES): Neurogenic bladder from multiple sclerosis. Membranous and urethral stricture and meatal stenosis. NAME OF OPERATION: Urethral dilation. Meatal dilation. Botox injections of the bladder. OPERATIVE FINDINGS: Urethral stricture was dilated with some difficulty. There was a false passage at the mid-prostatic urethra so we will need to leave the Pérez catheter in for at least a week and perhaps have him use a Coud catheter secondary to the false passage, for a few weeks. DESCRIPTION OF PROCEDURE: The patient received preoperative cefoxitin intravenous antibiotics and sequential TEDs within an hour of surgery. He was prepped and draped in the usual sterile fashion in the lithotomy position. He underwent meatal dilation with [place] sounds, initially to 24 Nepalese. A rigid cystoscope was placed and the SEAT 4a guidewire was placed across into the bladder. We then used a urethral dilator to dilate the urethra to 24 Nepalese. There was a false passage of dilation just proximal the veru causing a ledge secondary to the false passage. The meatus had dilated up nicely, as well as the membranous urethra. However, because of the false passage I think having the Pérez catheter in for a week, during flexible cystoscopy, for our next office visit would be garza and perhaps during the using of a Coud catheter. SPECIMENS REMOVED: None. ESTIMATED BLOOD LOSS: Less than 20 mL. Drains: 16 Nepalese hoonah tipped Pérez catheter times one. INTRAOPERATIVE FLUIDS: Crystalloid. SPONGE/INSTRUMENT/NEEDLE COUNTS: Sponge and instrument counts were correct. CONDITION ON DISCHARGE FROM OPERATING ROOM: Disposition: The patient tolerated the procedure well and was transferred to the recovery room in stable condition. ATTESTATION OF PRESENCE: I was physically present for this procedure, except for initial draping and prepping, initial cystoscopy, and transfer to the recovery room. Dr. Nelson Romero was present during that time. Electronically Signed By Papo Ellsworth M.D. 12/24/2014 03:53 P Papo Ellsworth M.D. SBJr/boris #[id number] Editing MT: TD: 11/30/2014 08:31:00 cc: Papo Ellsworth M.D. * Op Note - Provider, MD Bettie - 11/30/2014 12:00 AM CDT Patient: Doc Emery Reg No: [id number] [facility] #: [id number] Admit Dt.: 11/30/2014 : 1965 Pt Type: 200 Room No: [facility] Attending: Papo Ellsworth M.D. Surgeon: Papo Ellsworth M.D. Dictating: Papo Ellsworth M.D. Service Dt: 11/30/2014 OPERATIVE REPORT DESCRIPTION OF PROCEDURE: After undergoing urethral dilation and meatal dilation, 300 units of Botox were injected into the bladder in a standard fashion with the use of a Momo's needle. Botox was missed with 30 milliliters of saline an methylene blue in order to inject the Botox in 1 milliliter Aliquots in 30 sites throughout the bladder, but not involving the trigone. After doing so, coud catheter was placed and the patient was transferred to the recovery room in stable condition. Electronically Signed By Papo Ellsworth M.D. 03/11/2015 04:17 P Flex Grayson/milla #[id number] Editing MT: TD: 02/15/2015 17:35:00 cc: Papo Ellsworth M.D. documented in this encounter Plan of Treatment Not on file documented as of this encounter Visit Diagnoses Diagnosis Multiple sclerosis (HCC) Multiple sclerosis Neurogenic bladder Neurogenic bladder, NOS Urethral stricture Encounter for long-term (current) use of other medications documented in this encounter Care Teams Relationship Mgr Relationship Specialty Start Date End Date Mick Flowers MD PCP - General 09/19/13 10/31/15 documented as of this encounter
--- OUTSIDE RECORDS SUMMARY | 2024-06-29 00:33 | XMS_ITS | Encounter Summary ---
Author Organization [facility] Healthcare Address [address] [place] [address] Care Team Providers Care Earring Maker Name Role Phone Mick Flowers MD Primary Care Provider [phone] Encounter Details Date Type Department Care Team (Late st Contact Info) Description 05/06/2018 7:30 AM PRIMARY COUNSELOR - 05/06/2018 8:45 AM [facility] Surgery [facility] Operating Room [address] [place] [address] Marquis Lopez MD [address] [facility] [address] [place] [address] INJECTION BOTOX 300 UNITS INTO BLADDER PLESE MAKE THIS 300 UNITS Surgery Details Date/Time Status Location OR Service Patient Class Case Cl ass Case Type Trauma Case? 05/06/2018 7:30 AM Posted [facility] OR POD 1 323 Urology Outpatient Elective Panel 1 Procedure LRB Anes Op Region Wound Class Comments INJECTION BOTOX 300 UNITS INTO BLADDER PLESE MAKE THIS 300 UNITS N/A General Face Class II - Clean Contaminated CYSTOSCOPY N/A General Urethra Class II - [place] an Contaminated Surgeon Surgeon Role Service Panel Marquis Lopez MD Primary Urology 1 Esperanza Snider MD Resident - Assisting Minor Proc edures 1 Special Needs 300 units of Botox to be mixed with 30 cc normal saline in OR; Wilevr needle for injection documented in this encounter Social History Tobacco Use Types Packs/Day Years Used Date Smoking Tobacco: Never Smokeless Tobacco: Never Alcohol Use Standard Drinks/Week Comments Yes 21 (1 standard drink = 0.6 oz pu re alcohol) Sex and Gender Information Value Date Recorded Sex Assigned at Not on file Legal Sex Male 3:12 AM PRIMARY COUNSELOR Gender Identity Not on file Sexual Orientation Not on file documented as of this encounter Last Filed Vital Signs Vital Sign Reading Time Taken Comments Blood Pressure 140/106 05/06/2018 8:30 AM PRIMARY COUNSELOR Pulse 74 05/06/2018 8:30 AM PRIMARY COUNSELOR Temperature 36 ??C (96.8 ??F) 05/06/2018 8:09 AM PRIMARY COUNSELOR Respiratory Rate 16 05/06/2018 8:30 AM PRIMARY COUNSELOR Oxygen Saturation 98% 05/06/2018 8:30 AM PRIMARY COUNSELOR Inhaled Oxygen Concentration - - Weight 79.4 kg (175 lb) 05/06/2018 6:13 AM PRIMARY COUNSELOR Height 177.8 cm (5' 10 ) 05/06/2018 6:13 AM PRIMARY COUNSELOR Body Mass Index 25.11 05/06/2018 6:13 AM PRIMARY COUNSELOR documented in this encounter Discharge Instructions * Discharge Instructions* Tonya Bobby RN - 05/06/2018 8:25 AM PRIMARY COUNSELOR Cystoscopy WHAT YOU NEED TO KNOW: A cystoscopy is a procedure to look inside of your urethra and bladder using a cystoscope. A cystoscope is a small tube with a light and magnifying camera on the end. The procedure is used to diagnose and treat conditions of the bladder, urethra, and prostate. The procedure is also done to remove stones or blood clots from the urethra or bladder. Your healthcare provider may do other tests, such as ureteroscopy, during a cystoscopy. DISCHARGE INSTRUCTIONS: Call 911 if: ?? You suddenly have chest pain or trouble breathing. Seek care immediately if: ?? Your urine turns from pink to red, or you have clots in your urine. ?? You cannot urinate and your bladder feels full. ?? Your pain or burning becomes worse or lasts longer than 2 days. Contact your healthcare provider or urologist if: ?? Your urine stays pink for longer than 3 days. ?? You urinate less than normal, or still feel like you have to urinate after you use the bathroom. ?? Your skin is itchy, swollen, or has a new rash. ?? You have a fever and chills. ?? You have questions or concerns about your condition or care. Medicines: You may be given any of the following: ?? Antibiotics help treat or prevent a bacterial infection. ?? Acetaminophen decreases pain and fever. It is available without a doctor's order. Ask how much to take and how often to take it. Follow directions. Read the labels of all other medicines you are using to see if they also contain acetaminophen, or ask your doctor or pharmacist. Acetaminophen can cause liver damage if not taken correctly. Do not use more than 4 grams (4,000 milligrams) total of acetaminophen in one day. ?? Take your medicine as directed. Contact your healthcare provider if you think your medicine is not helping or if you have side effects. Tell him or her if you are allergic to any medicine. Keep a list of the medicines, vitamins, and herbs you take. Include the amounts, and when and why you take them. Bring the list or the pill bottles to follow-up visits. Carry your medicine list with you in case of an emergency. Follow up with your healthcare provider as directed: You may need to have another cystoscopy. [place] your questions so you remember to ask them during your visits. Self-care: ?? Drink at least 3 to 4 glasses of water daily for 2 days after your procedure. Do not drink acidic juices such as orange juice and lemonade. Drink water to help prevent blood clots from forming. Itcan also help decrease the amount of acid in your urine. Acid in your urine may increase the burning feeling when you urinate. ?? Sit in a warm tub of water. Warm water may relieve pain and bladder spasms. ?? Do not have sex until your healthcare provider tells you it is okay. Sex may increase your risk for a urinary tract infection. ?? 2016 [employer]. Information is for End User's use only and may not be sold, redistributed or otherwise used for commercial purposes. All illustrations and images included in CareNotes?? are the copyrighted property of [employer] or [employer]. The above information is an braided rug maker only. It is not intended as medical advice for individual conditions or treatments. Talk to your doctor, nurse or pharmacist before following any medical regimen to see if it is safe and effective for you. ARY COUNSELOR documented in this encounter Medications at Time of Discharge felodipine (PLENDIL) 5 mg 24 hr tabletIndications :hypertension Take 1 tablet (5 mg total) by mouth 2 (two) times a day 07/19/2007 ALPRAZolam (XANAX) 0.5 mg tablet TK 1 T PO TID PRN 0 04/23/2018 10/21/2018 AMPYRA 10 mg tablet extended release 12 hr TAKE 1 TABLET BY MOUTH TWICE A DAY 60 tablet 4 01/04/2018 05/20/2018 atorvastatin (LIPITOR) 20 mg tabletIndications :hyperlipidemia Take 20 mg by mouth every morning 2021 furosemide (LASIX) 20 mg tablet TK 1 T PO QAM-htn 0 04/23/2018 11/04/2018 losartan (COZAAR) 100 mg tabletIndications :hypertension Take 1 tablet (100 mg total) by mouth every morning 11/14/2022 POTASSIUM CHLORIDE ER 20 mEq CR tabletIndications :supplement Take 1 tablet (20 mEq total) by mouth every morning 5 04/23/2018 03/19/2024 documented as of this encounter Discharge Disposition Disposition Code Departure Means Destination Discharge to home or self care documented in this encounter H&P Notes * Nikky Macias RN - 05/06/2018 7:11 AM CST General H&P Subjective Patient is a 52 y.o. male with chief complaint of urinary incontinence. HPI:52 y.o. M with neurogenic bladder, urgency incontinence from neurogenic origin, DO, responded well to botox 300 units in the past, last injection in November, recurrence of incontinence 1-2 months ago, wants to discuss re-injection of botox into bladder. Past Medical History: Diagnosis Date ??? Hypertension Hypertension ??? Multiple sclerosis (CMS/HCC) Multiple Sclerosis History reviewed. No pertinent surgical history. Prescriptions Prior to Admission Medication Sig Dispense Refill Last Dose ??? ALPRAZolam (XANAX) 0.5 mg tablet TK 1 T PO TID PRN 0 05/05/2018 at 2300 ??? AMPYRA 10 mg tablet extended release 12 hr TAKE 1 TABLET BY MOUTH TWICE A DAY 60 tablet 4 05/06/2018 at 0430 ??? atorvastatin (LIPITOR) 20 mg tablet Take 20 mg by mouth daily. 05/06/2018 at 0430 ??? felodipine (PLENDIL) 5 mg 24 hr tablet daily. 05/05/2018 at 1300 ??? furosemide (LASIX) 20 mg tablet TK 1 T PO QAM 0 05/06/2018 at 0430 ??? losartan (COZAAR) 100 mg tablet 05/06/2018 at 0430 ??? POTASSIUM CHLORIDE ER 20 mEq CR tablet TK 1 T PO D 5 05/06/2018 at 0430 ??? [] sulfamethoxazole-trimethoprim (BACTRIM,SEPTRA) 400-80 mg per tablet Take 1 tablet by mouth 2 (two) times a day for 3 days. 6 tablet 0 No Known Allergies Social History Substance Use Topics ??? Smoking status: Never Smoker ??? Smokeless tobacco: Never Used ??? Alcohol use 12.6 oz/week 21 Glasses of wine per week Family History Problem Relation Age of Onset ??? Multiple sclerosis Other Family history of Multiple sclerosis; ??? Hypertension Other Family history of Hypertension; ??? Melanoma Mother Family history of malignant melanoma - (Added by TW Conv) Review of Systems Objective Vitals: Arrival Vitals [05/06/18612] Temp 36.4 ??C (97.5 ??F) Pulse 64 Resp 19 BP 137/97 SpO2 97 % Temp src Temporal Heart Rate Source Monitor Patient Position BP Location FiO2 (%) 24hr Min/Max: Temp Min: 36.4 ??C (97.5 ??F) Max: 36.4 ??C (97.5 ??F) Pulse Min: 64 Max: 64 BP Min: 137/97 Max: 137/97 Resp Min: 19 Max: 19 SpO2 Min: 97 % Max: 97 % Most Recent : Vitals: 05/06/18612 BP: 137/97 Pulse: 64 Resp: 19 Temp: 36.4 ??C (97.5 ??F) SpO2: 97% No intake/output data recorded. No intake/output data recorded. Physical Exam Lab/Radiology/Diagnostic Review: Laboratory review: reviewed the laboratory result(s) positive urine culture. Finished Bactrim that was prescribed. Assessment Principal Problem: Neurogenic bladder Plan Cystoscopy with botox injection. Cosigned by Marquis Lopez MD at 05/06/2018 8:12 AM PRIMARY COUNSELOR ARY COUNSELOR ARY COUNSELOR Associated attestation - Marquis Lopez MD - 05/06/2018 8:12 AM PRIMARY COUNSELOR I have seen and examined the patient on 05/06/18. I agree with the findings and plan of care as documented in the resident's/fellow's note. documented in this encounter Miscellaneous Notes * Op Note - Marquis Lopez MD - 05/06/2018 7:30 AM CST Date of Surgery: May 06, 2018 Preoperative diagnosis: Neurogenic bladder, neurogenic urinary urge incontinence Post-operative diagnosis: Neurogenic bladder, neurogenic urinary urge incontinence Procedure: Cystoscopy, injection of 300 units of onabotulinumtoxinA (Botox) into the bladder Surgeon: Marquis Lopez MD Stem Maker: Chloé Snider MD Anesthesia: General Complications: None Estimated blood loss: None Specimen: None Indication for surgery: Patient has neurogenic bladder, and neurogenic urinary urge incontinence, and is here for 300 units Botox injection into the bladder to treat urinary incontinence. I have discussed with patient in detail all risks, benefits and alternatives to the procedure. All questions were answered. The patient wishes to proceed with the procedure as planned. Risks discussed and included, but were not limited to, bleeding, urinary tract infection, incomplete bladder emptying, urinaryretention, and need for CIC/medel. Patient is also aware that Botox may not completely make patientcompletely dry and may fail in some patients. Also repeated injection is necessary to maintain efficacy. Patient consented to proceed with injection of the Botox. Surgery in details: Patient was identified in preop area and given IV antibiotics. Bilateral SCDs placed for DVT prophylaxis. Patient was placed in the lithotomy position. He was then prepped and draped in a standard surgical fashion. The rigid scope was advanced into the bladder. The urethra and the bladder mucosa looks normal. Next we diluted with 300 units of Botox in 30 cc of injectable normal saline, and we injected the Botox into the into the detrusor and submucosal area of the bladder in0.5-1 cc aliquots. Botox was injected into the posterior bladder wall, the left and the right lateral bladder wall as well as the trigone of the bladder sparing the ureteral orifices bilaterally. Allthe Botox was injected inside the bladder. At the conclusion of the case there was no bleeding inside the bladder. The bladder was then empty out. Counts at the conclusion of the case: Correct Presence Statement: I, Dr. Marquis Lopez, was present throughout the surgery. ARY COUNSELOR * Brief Op Note - Marquis Lopez MD - 05/06/2018 7:30 AM CST Operative Progress Note Attending Surgeon: Marquis Lopez MD Surgical Team: Analysis Reporting Developer: Taya Peterson RN Scrub: [facility] [place] DATE OF SURGERY : 05/06/2018 Preoperative Diagnosis: Pre-op Diagnosis * Neurogenic bladder [N31.9] Postoperative Diagnosis: Post-op Diagnosis * Neurogenic bladder [N31.9] Procedure: Procedure(s): INJECTION BOTOX 300 UNITS INTO BLADDER PLESE MAKE THIS 300 UNITS CYSTOSCOPY Operative Findings: Normal bladder mucosa Estimated Blood Loss: No blood loss documented. Intraoperative Fluids: Seven hundred mls Specimens: No specimen collected in procedure Implants: Nothing was implanted during the procedure Blood/Blood Products Transfused: 0 mls Complications: None Condition on Discharge from the operating room was stable Juice Lopez MD Date: 05/06/2018 Time: 7:52 AM TEACHING ATTESTATION : I was present and directly participated in the entire procedure (including opening and closing). ARY COUNSELOR documented in this encounter Plan of Treatment Not on file documented as of this encounter Procedures Procedure Name Priority Date/Time Associated Diagnosis Comments CYSTOSCOPY 05/06/2018 7:28 AM PRIMARY COUNSELOR Neurogenic bladder Special Needs 300 units of Botox to be mixed with 30 cc normal saline in OR; Wilver needle for injection INJECTION BOTOX 05/06/2018 7:28 AM PRIMARY COUNSELOR Neurogenic bladder Special Needs 300 units of Botox to be mixed with 30 cc normal saline in OR; Wilver needle [...] A (BOTOX) injection As needed, Starting on Sun05/06/18 at 0752, Intra-Op Given 05/06/2018 7:52 AM PRIMARY COUNSELOR 300 Units sodium chloride 0.9 % irrigation As needed, Starting on Sun05/06/18 at 0750, Intra-Op Given 05/06/2018 7:52 AM PRIMARY COUNSELOR 3,000 mL Other (Comment) Given 05/06/2018 7:50 AM PRIMARY COUNSELOR 1,000 mL Lozano rgical Site sodium chloride 0.9% flush 0.5-20 mL 0.5-20 mL, intra-catheter, As needed, line care, Starting on Sun05/06/18 at 0547, For 365 days, Pre-Op, Flush volume based on line type and size. Flush before and after each use. , Indications: FlushingIndications:Flushing documented in this encounter Discontinued Medications Medication Sig Discontinue Reason Start Date End Da te methylPREDNISolone (MEDROL, DIAMANTE,) 4 mg tablet take by Oral route as directed on box Patient no longer under prescriber care 11/01/2015 05/06/2018 sulfamethoxazole-trime thoprim (BACTRIM,SEPTRA) 400-80 mg per tabletIndications:Urin seble tract infection without hematuria, site unspecified Take 1 tablet by mouth 2 (two) times a day for 3 days. Stop Taking at Discharge 05/02/2018 05/06/2018 documented as of this encounter Historical Medications * This list may reflect changes made after this encounter. felodipine (PLENDIL) 5 mg 24 hr tabletIndications :hypertension Take 1 tablet (5 mg total) by mouth 2 (two) times a day 07/19/2007 atorvastatin (LIPITOR) 20 mg tabletIndications :hyperlipidemia Take 20 mg by mouth every morning 2021 ALPRAZolam (XANAX) 0.5 mg tablet TK 1 T PO TID PRN 0 04/23/2018 10/21/2018 POTASSIUM CHLORIDE ER 20 mEq CR tabletIndications :supplement Take 1 tablet (20 mEq total) by mouth every morning 5 04/23/2018 03/19/2024 losartan (COZAAR) 100 mg tabletIndications :hypertension Take 1 tablet (100 mg total) by mouth every morning 11/14/2022 furosemide (LASIX) 20 mg tablet TK 1 T PO QAM-htn 0 04/23/2018 11/04/2018 added in this encounter Active and Recently Administered Medications Times are shown in PRIMARY COUNSELOR. Scheduled Medication Order 05/04/2018 05/05/2018 05/06/2018 ceFAZolin (ANCEF) 2000 mg in 20 mL sterile water (premix) 2,000 mg, intravenous, at 400 mL/hr, Administer over 3 Minutes, Once, On Sun05/06/18 at 0800, For 1 dose, Pre-Op, Administer within 60 minutes of incision., Indications: Prophylaxis, Surgical 0800 (Due) PRN Medication Order 05/04/2018 05/05/2018 05/06/2018 onabotulinumtoxin A (BOTOX) injection (CANCELED) As needed, Starting on Sun05/06/18 at 0752, Intra-Op 0752 (Given - Provid er: Esperanza Snider MD - Comment: given into bladder) sodium chloride 0.9 % irrigation (CANCELED) As needed, Starting on Sun05/06/18 at 0750, Intra-Op 0750 (Given - Provid er: Esperanza Snider MD)0752 (Given - Provider: Esperanza Snider MD - Comment: Endoscopy) sodium chloride 0.9% flush 0.5-20 mL 0.5-20 mL, intra-catheter, As needed, line care, Starting on Sun05/06/18 at 0547, For 365 days, Pre-Op, Flush volume based on line type and size. Flush before and after each use. , Indications: Flushing documented in this encounter Orders Medications Ordered That Julio Cesar ht Not Have Been Administered Count Last Ordered Date First Ordered Date ceFAZolin (ANCEF) 2000 mg in 20 mL sterile water (premix) 1 05/06/2018 sodium chloride 0.9% flush 0.5-20 mL 1 04/25 Diet Count Last Ordered Date First Orde red Date ADULT DISCHARGE DIET 1 05/06/2018 Nursing Count Last Ordered Date First Orde red Date DISCHARGE ACTIVITY 1 05/06/2018 DISCHARGE CALL PROVIDER 9 05/06/2018 DISCHARGE DRESSING 1 05/06/2018 OTHER FOLLOW UP 05/06/2018 documented in this encounter Care Teams Earring Maker Relationship Specialty Start Date End Date Mick Flowers MD PCP - General 05/14/17 documented as of this encounter
--- OUTSIDE RECORDS SUMMARY | 2024-06-29 00:33 | XMS_ITS | Encounter Summary ---
Author Organization [facility] Facility Care Team Providers Care Green Marketing Specialist Name Role Phone Mick Flowers MD Primary Care Provider [phone] Encounter Details Date Type Department Care Team (Late st Contact Info) Description 05/29/2016 11:46 AM DISPATCHER RELAY - 05/29/2016 4:00 PM DISPATCHER RELAY Hospital Encounter [facility] Marquis Gonzales MD [address] [facility] [address] [place] [address] Neuromuscular dysfunction of bladder; Urge incontinence; Multiple sclerosis ([facility]) Social History Tobacco Use Types Packs/Day Years Used Date Smoking Tobacco: Never Assessed Sex and Gender Information Value Date Recorded Sex Assigned at Not on file Legal Sex Male 3:12 AM DISPATCHER RELAY Gender Identity Not on file Sexual Orientation Not on file documented as of this encounter Medications at Time of Discharge felodipine (PLENDIL) 5 mg 24 hr tabletIndication s:hypertension Take 1 tablet (5 mg total) by mouth 2 (two) times a day 07/19/2007 methylPREDNISolo ne (MEDROL, DIAMANTE,) 4 mg tablet take by Oral route as directed on box 1 0 11/01/2015 05/06/2018 documented as of this encounter Miscellaneous Notes * Op Note - Provider, MD Bettie - 05/29/2016 12:00 AM CST Patient: MARITA EMERY Reg No: [id number] U H #: [id number] Admit Dt.: 05/29/2016 : 1965 Pt Type: SDS Room No: Attending: Marquis Lopez M.D. Surgeon: Marquis Lopez M.D. Dictating: Marquis Lopez M.D. Service Dt: 05/29/2016 OPERATIVE REPORT FACILITY ID: [facility] SURGEON Marquis Lopez MD FIRST ROLL EDGE MACHINE OPERATOR Anne Chen MD PREOPERATIVE DIAGNOSES Neurogenic bladder, neurogenic urinary urge incontinence. POSTOPERATIVE DIAGNOSES Neurogenic bladder, neurogenic urinary urge incontinence. PROCEDURES Cystoscopy, injection of 300 units of Botox into the bladder. ANESTHESIA General anesthesia. COMPLICATIONS None. SPECIMEN None. ESTIMATED BLOOD LOSS None. DETAILS OF SURGERY Mr. Emery is a gentleman with neurogenic bladder, urinary urge incontinence. He has been receiving Botox injections into the bladder every couple of months and he has gotten relief of his urge incontinence for neurogenic causes. He is here for repeat injections. The risks and benefits have been discussed with the patient. He consented to proceed. The Botox has worn out. He has recurrent stress urge incontinence from a neurogenic cause. Patient identified in the preoperative area. He was put in low lithotomy position. Bilateral SCDs were placed for DVT prophylaxis. A rigid scope was advanced to his bladder. His bladder mucosa looks normal. Next we divided 300 units of Botox into injectable normal saline. From a Wilver needle we injected the Botox into the bladder. This was done on the right lateral wall of the posterior wall of the bladder and also the trigone of the bladder. Each injection was approximately 1 mL. We injected the full 300 units of Botox into the bladder. There was no bleeding inside the bladder. At the end of the case, we emptied his bladder out. He was awakened and sent to recovery room in stable condition. All counts correct at the conclusion of the case. PRESENCE STATEMENT Dr. Marquis Lopez was present for the procedure. Electronically Authenticated and Edited by: Alpesh Lopez MD On 06/13/2016 09:53 AM DISPATCHER RELAY Flex Eric:[email or web address] #[id number] Editing MT: TD: 06/01/2016 03:23 PM cc: Marquis Lopez M.D. documented in this encounter Plan of Treatment Not on file documented as of this encounter Visit Diagnoses Diagnosis Neuromuscular dysfunction of bladder Urge incontinence Multiple sclerosis (HCC) Multiple sclerosis documented in this encounter Care Teams Green Marketing Specialist Relationship Specialty Start Date End Date Mick Flowers MD PCP - General 11/01/15 10/30/16 documented as of this encounter
--- OUTSIDE RECORDS SUMMARY | 2024-06-29 00:33 | XMS_ITS | Encounter Summary ---
Author Organization [facility] Address [address] [place] [address] Phone Care Team Providers Care Mass Communications Instructor Name Role Phone Mick Flowers MD Primary Care Provider [phone] Encounter Details Date Type Department Care Team (Late st Contact Info) Description 04/25/2018 Orders Only [facility] Surgery [address] [facility] [address] [place] [id number] Marquis Lopez MD [address] [facility] [address] [place] [address] Social History Tobacco Use Types Packs/Day Years Used Date Smoking Tobacco: Never Assessed Sex and Gender Information Value Date Recorded Sex Assigned at Not on file Legal Sex Male 3:12 AM PHYSICAL THERAPY COORDINATOR Gender Identity Not on file Sexual Orientation Not on file documented as of this encounter Plan of Treatment Not on file documented as of this encounter Procedures Procedure Name Priority Date/Time Associated Diagnosis Comments URINE CULTURE Routine 04/25/2018 11:31 AM CDT documented in this encounter Results * Urine culture (04/25/2018 11:31 AM CDT) Urine culture SEE NOTE [facility] Comment: ??CULTURE, URINE, ROUTINE ?MICRO NUMBER: ?[id number] ??TEST STATUS: ? FINAL ??SPECIMEN SOURCE: ?? URINE, CLEAN CATCH ??SPECIMEN QUALITY: ??ADEQUATE ??RESULT: ?Three or more organisms present, each greater ? than 10,000 cu/mL. May represent normal padmini ? contamination from external genitalia. No further ? testing is required. ? Your request to have a duplicate copy faxed has been acknowledged. ?Queued to: ??[id number] 04/25/2018 11:3 1 AM CDT 04/25/2018 11:32 AM CDT Narrative [facility] - 04/26/2018 9:08 PM CDT FASTING:NO FASTING: NO Resulting Agency Comment Performing Organization Information: ?Site ID: ?Name: [facility] ?Address: [address] [place] [address] ?Director: Vianney Arciniega us Marquis Lopez MD LAB MICROBIOLOGY - GENERAL ORD ERABLES Final Result [facility] [place], [place] documented in this encounter Visit Diagnoses Not on filedocumented in this encounter Care Teams Mass Communications Instructor Relationship Specialty Start Date End Date Mick Flowers MD PCP - General 05/14/17 documented as of this encounter
--- OUTSIDE RECORDS SUMMARY | 2024-06-29 00:33 | XMS_ITS | Encounter Summary ---
Author Organization [facility] Healthcare Address [address] [place] [address] Care Team Providers Care Civil Division Commander Deputy Sheriff Name Role Phone Mick Flowers MD Primary Care Provider [phone] Encounter Details Date Type Department Care Team (Late st Contact Info) Description 05/06/2018 5:23 AM RETAIL ACCOUNT SPECIALIST - 05/06/2018 8:53 AM RETAIL ACCOUNT SPECIALIST Hospital Encounter [facility] Operating Room [address] [place] [address] Marquis Lopez MD [address] [facility] [address] [place] [address] Discharge Disposition: Discharge to home or self care Social History Tobacco Use Types Packs/Day Years Used Date Smoking Tobacco: Never Smokeless Tobacco: Never Alcohol Use Standard Drinks/Week Comments Yes 21 (1 standard drink = 0.6 oz pu re alcohol) Sex and Gender Information Value Date Recorded Sex Assigned at Not on file Legal Sex Male 3:12 AM RETAIL ACCOUNT SPECIALIST Gender Identity Not on file Sexual Orientation Not on file documented as of this encounter Last Filed Vital Signs Vital Sign Reading Time Taken Comments Blood Pressure 140/106 05/06/2018 8:30 AM RETAIL ACCOUNT SPECIALIST Pulse 74 05/06/2018 8:30 AM RETAIL ACCOUNT SPECIALIST Temperature 36 ??C (96.8 ??F) 05/06/2018 8:09 AM RETAIL ACCOUNT SPECIALIST Respiratory Rate 16 05/06/2018 8:30 AM RETAIL ACCOUNT SPECIALIST Oxygen Saturation 98% 05/06/2018 8:30 AM RETAIL ACCOUNT SPECIALIST Inhaled Oxygen Concentration - - Weight 79.4 kg (175 lb) 05/06/2018 6:13 AM RETAIL ACCOUNT SPECIALIST Height 177.8 cm (5' 10 ) 05/06/2018 6:13 AM RETAIL ACCOUNT SPECIALIST Body Mass Index 25.11 05/06/2018 6:13 AM RETAIL ACCOUNT SPECIALIST documented in this encounter Discharge Instructions * Discharge Instructions* Tonya Bobby RN - 05/06/2018 8:25 AM RETAIL ACCOUNT SPECIALIST Cystoscopy WHAT YOU NEED TO KNOW: A [...] for a urinary tract infection. ?? 2016 [employer]. Information is for End User's use only and may not be sold, redistributed or otherwise used for commercial purposes. All illustrations and images included in CareNotes?? are the copyrighted property of [employer]. or [employer]. The above information is an mental retardation aide only. It is not intended as medical advice for individual conditions or treatments. Talk to your doctor, nurse or pharmacist before following any medical regimen to see if it is safe and effective for you. [place] ACCOUNT SPECIALIST documented in this encounter Medications at [...] Review of Systems Objective Vitals: Arrival Vitals [05/06/18 06] Temp 36.4 ??C (97.5 ??F) Pulse 64 [...] Marquis Lopez MD at 05/06/2018 8:12 AM RETAIL ACCOUNT SPECIALIST [place] ACCOUNT SPECIALIST [place] ACCOUNT SPECIALIST Associated attestation - Marquis Lopez MD - 05/06/2018 8:12 AM RETAIL ACCOUNT SPECIALIST I have seen and examined the patient [...] into the bladder Surgeon: Marquis Lopez MD Cascade Operator: Chloé Snider MD Anesthesia: General Complications: None [...] Marquis Lopez, was present throughout the surgery. [place] ACCOUNT SPECIALIST * Brief Op Note - Marquis Lopez MD - 05/06/2018 7:30 AM CST Operative Progress Note Attending Surgeon: Marquis Lopez MD Surgical Team: Rack Puller: Taya Peterson RN Scrub: ST Francisco DATE [...] the entire procedure (including opening and closing). [place] ACCOUNT SPECIALIST documented in this encounter Plan of Treatment Not on file documented as of this encounter Procedures Procedure Name Priority Date/Time Associated Diagnosis Comments CYSTOSCOPY 05/06/2018 7:28 AM RETAIL ACCOUNT SPECIALIST Neurogenic bladder Special Needs 300 units of Botox to be mixed with 30 cc normal saline in OR; Wilver needle for injection INJECTION BOTOX 05/06/2018 7:28 AM RETAIL ACCOUNT SPECIALIST Neurogenic bladder Special Needs 300 units of [...] Date Dose Rate Site sodium chloride 0.9% flush 0.5-20 mL 0.5-20 mL, intra-catheter, As needed, line care, Starting on 05/06/18 at 0547, For 365 days, Pre-Op, Flush [...] Recently Administered Medications Times are shown in RETAIL ACCOUNT SPECIALIST. Scheduled Medication Order 05/04/2018 05/05/2018 05/06/2018 ceFAZolin [...] 0750 (Given - Provid er: Esperanza Snider MD)2259 (Given - Provider: Esperanza Snider MD - Comment: Endoscopy) sodium chloride 0.9% flush 0.5-20 mL 0.5-20 mL, intra-catheter, As needed, line care, Starting on 05/06/18 at 0547, For 365 days, Pre-Op, Flush volume based on line type and size. Flush before and after each use. , Indications: Flushing documented in this encounter Orders Medications Ordered That Julio Cesar ht Not Have Been Administered Count Last Ordered Date First Ordered Date ceFAZolin (ANCEF) 2000 mg in 20 mL sterile water (premix) 1 05/06/2018 onabotulinumtoxin A (BOTOX) injection 1 05/2018 sodium chloride 0.9 % irrigation 1 05/06/20 18 sodium chloride 0.9% flush 0.5-20 mL 1 04/25 Diet Count Last Ordered Date First Orde red Date ADULT DISCHARGE DIET 1 05/06/2018 Nursing Count Last Ordered Date First Orde red Date DISCHARGE ACTIVITY 1 05/06/2018 DISCHARGE CALL PROVIDER 9 05/06/2018 DISCHARGE DRESSING 1 05/06/2018 OTHER FOLLOW UP 1 05/06/2018 documented in this encounter Care Teams Civil Division Commander Deputy Sheriff Relationship Specialty Start Date End Date Mick Flowers MD PCP - General 05/14/17 documented as of this encounter
--- OUTSIDE RECORDS SUMMARY | 2024-06-29 00:33 | XMS_ITS | Encounter Summary ---
Author Organization [facility] Facility Care Team Providers Care Gradall Operator Name Role Phone Mick Flowers MD Primary Care Provider [phone] Encounter Details Date Type Department Care Team (Latest Contact Info) Description 06/11/2015 - 06/11/2015 11:59 PM PROCESS WORKER Hospital Encounter [facility] Neuromuscular dysfunction of bladder; Systemic involvement of connective tissue (CMS/HCC); Liver disease Social History Tobacco Use Types Packs/Day Years Used Date Smoking Tobacco: Never Assessed Sex and Gender Information Value Date Recorded Sex Assigned at Not on file Legal Sex Male 3:12 AM PROCESS WORKER Gender Identity Not on file Sexual Orientation Not on file documented as of this encounter Medications at Time of Discharge felodipine (PLENDIL) 5 mg 24 hr tabletIndications :hypertension Take 1 tablet (5 mg total) by mouth 2 (two) times a day 07/19/2007 documented as of this encounter Plan of Treatment Not on file documented as of this encounter Procedures Procedure Name Priority Date/Time Associated Diagnosis Comments US RETROPERITONEAL COMPLETE Routine 06/11/2015 11:29 AM PROCESS WORKER US ABDOMEN COMPLETE Routine 06/11/2015 1 1:29 AM PROCESS WORKER documented in this encounter Results * US Abdomen Complete (06/11/2015 11:29 AM PROCESS WORKER) Anatomical Region Laterality Modality Abdomen N/A Ultrasound 06/11/2015 11:2 9 AM PROCESS WORKER Narrative 06/11/2015 2:28 PM PROCESS WORKER RAHEEL DAVE M.D. JAMEY NUNEZ M.D. FINAL REPORT The radiology attending physician has personally reviewed this study, and has reviewed and/or edited this written report and agrees with it. ACC# ??Date Time ??Exam [id number] Jun 11, 2015 11:29:00 [id number] Jamie Allen Complt [id number] Jun 11, 2015 11:29:00 [id number] US Retroper cmp EXAMINATION: ?? COMPLETE ABDOMINAL SONOGRAM AND ??COMPLETE RENAL SONOGRAM DATE: ??06/11/2015 HISTORY: ??49-year-old male with multiple sclerosis and neurogenic bladder. He is also on hepatic toxic medications. The gallbladder is normal. There are no stones or wall abnormalities. ?? The liver is normal in size, echotexture, ??and echogenicity. There is a 1.0 ??x 1.0 x 1.1 cm homogenous hyperechoic nodule within hepatic segment 7. There is no surface nodularity. ??The common duct is normal and measures 2 mm, 3 mm, and 2 mm in the proximal, mid and distal aspects respectively. The visualized portions of the head of the pancreas are normal. The spleen is normal in size. The proximal IVC and aorta are normal. The echogenicity of both kidneys is normal. ??There is no hydronephrosis in either kidney. ??There are no renal calculi visualized. The right kidney measures 10.9 cm in length, and the left, 11.0 cm in length. ??The bladder is normal. ??The prevoid volume is 71 mL. There is no post void residual. IMPRESSION: ?? 1. 1 cm hyperechoic nodules in hepatic segment 7 which is most consistent with a hemangioma. 2. Normal kidneys. 3. No hydronephrosis or urinary retention. Requested By: TOMMY RUIZ M.D. Dictated By: ?? JAMEY NUNEZ M.D. ??on Jun 11 2015 11:37A This document has been electronically signed by: RAHEEL DAVE M.D. on Jun 11 2015 ??2:28P Procedure Note Provider, MD Bettie - 10/15/2016 RAHEEL DAVE M.D. JAMEY NUNEZ M.D. FINAL REPORT The radiology attending physician has personally reviewed this study, and has reviewed and/or edited this written report and agrees with it. ACC# Date Time Exam [id number] Jun 11, 2015 11:29:00 [id number] Sono Abd Complt [id number] Jun 11, 2015 11:29:00 75530 US Retroper cmp EXAMINATION: COMPLETE ABDOMINAL SONOGRAM AND COMPLETE RENAL SONOGRAM DATE: 06/11/2015 HISTORY: 49-year-old male with multiple sclerosis and neurogenic bladder. He is also on hepatic toxic medications. The gallbladder is normal. There are no stones or wall abnormalities. The liver is normal in size, echotexture, and echogenicity. There is a 1.0 x 1.0 x 1.1 cm homogenous hyperechoic nodule within hepatic segment 7. There is no surface nodularity. The common duct is normal and measures 2 mm, 3 mm, and 2 mm in the proximal, mid and distal aspects respectively. The visualized portions of the head of the pancreas are normal. The spleen is normal in size. The proximal IVC and aorta are normal. The echogenicity of both kidneys is normal. There is no hydronephrosis in either kidney. There are no renal calculi visualized. The right kidney measures 10.9 cm in length, and the left, 11.0 cm in length. The bladder is normal. The prevoid volume is 71 mL. There is no post void residual. IMPRESSION: 1. 1 cm hyperechoic nodules in hepatic segment 7 which is most consistent with a hemangioma. 2. Normal kidneys. 3. No hydronephrosis or urinary retention. Requested By: TOMMY RUIZ M.D. Dictated By: JAMEY NUNEZ M.D. on Jun 11 2015 11:37A This document has been electronically signed by: RAHEEL DAVE M.D. on Jun 11 2015 2:28P us Historical Provider MD CHOWDHURY US PROCEDURES Final R esult * US Retroperitoneal Complete (06/11/2015 11:29 AM PROCESS WORKER) Anatomical Region Laterality Modality Abdomen N/A Ultrasound 06/11/2015 11:2 9 AM PROCESS WORKER Narrative 06/11/2015 2:28 PM PROCESS WORKER Flex ZULETA M.D. FINAL REPORT The radiology attending physician has personally reviewed this study, and has reviewed and/or edited this written report and agrees with it. ACC# ??Date Time ??Exam [id number] Jun 11, 2015 11:29:00 [id number] Sono Abd Complt [id number] Jun 11, 2015 11:29:00 [id number] US Retroper cmp EXAMINATION: ?? COMPLETE ABDOMINAL SONOGRAM AND ??COMPLETE RENAL SONOGRAM DATE: ??06/11/2015 HISTORY: ??49-year-old male with multiple sclerosis and neurogenic bladder. He is also on hepatic toxic medications. The gallbladder is normal. There are no stones or wall abnormalities. ?? The liver is normal in size, echotexture, ??and echogenicity. There is a 1.0 ??x 1.0 x 1.1 cm homogenous hyperechoic nodule within hepatic segment 7. There is no surface nodularity. ??The common duct is normal and measures 2 mm, 3 mm, and 2 mm in the proximal, mid and distal aspects respectively. The visualized portions of the head of the pancreas are normal. The spleen is normal in size. The proximal IVC and aorta are normal. The echogenicity of both kidneys is normal. ??There is no hydronephrosis in either kidney. ??There are no renal calculi visualized. The right kidney measures 10.9 cm in length, and the left, 11.0 cm in length. ??The bladder is normal. ??The prevoid volume is 71 mL. There is no post void residual. IMPRESSION: ?? 1. 1 cm hyperechoic nodules in hepatic segment 7 which is most consistent with a hemangioma. 2. Normal kidneys. 3. No hydronephrosis or urinary retention. Requested By: TOMMY RUIZ M.D. Dictated By: ?? JAMEY NUNEZ M.D. ??on Jun 11 2015 11:37A This document has been electronically signed by: RAHEEL DAVE M.D. on Jun 11 2015 ??2:28P Procedure Note Provider, MD Bettie - 10/15/2016 RAHEEL DAVE M.D. JAMEY NUNEZ M.D. FINAL REPORT The radiology attending physician has personally reviewed this study, and has reviewed and/or edited this written report and agrees with it. ACC# Date Time Exam [id number] Jun 11, 2015 11:29:00 [id number] Sono Abd Complt [id number] Jun 11, 2015 11:29:00 [id number] US Retroper cmp EXAMINATION: COMPLETE ABDOMINAL SONOGRAM AND COMPLETE RENAL SONOGRAM DATE: 06/11/2015 HISTORY: 49-year-old male with multiple sclerosis and neurogenic bladder. He is also on hepatic toxic medications. The gallbladder is normal. There are no stones or wall abnormalities. The liver is normal in size, echotexture, and echogenicity. There is a 1.0 x 1.0 x 1.1 cm homogenous hyperechoic nodule within hepatic segment 7. There is no surface nodularity. The common duct is normal and measures 2 mm, 3 mm, and 2 mm in the proximal, mid and distal aspects respectively. The visualized portions of the head of the pancreas are normal. The spleen is normal in size. The proximal IVC and aorta are normal. The echogenicity of both kidneys is normal. There is no hydronephrosis in either kidney. There are no renal calculi visualized. The right kidney measures 10.9 cm in length, and the left, 11.0 cm in length. The bladder is normal. The prevoid volume is 71 mL. There is no post void residual. IMPRESSION: 1. 1 cm hyperechoic nodules in hepatic segment 7 which is most consistent with a hemangioma. 2. Normal kidneys. 3. No hydronephrosis or urinary retention. Requested By: TOMMY RUIZ M.D. Dictated By: JAMEY NUNEZ M.D. on Jun 11 2015 11:37A This document has been electronically signed by: RAHEEL DAVE M.D. on Jun 11 2015 2:28P us Historical Provider MD CHOWDHURY US PROCEDURES Final R esult documented in this encounter Visit Diagnoses Diagnosis Neuromuscular dysfunction of bladder Systemic involvement of connective tissue (CMS/HCC) (HCC) Liver disease Unspecified disorder of liver documented in this encounter Care Teams Gradall Operator Relationship Specialty Start Date End Date Mick Flowers MD PCP - General 09/19/13 10/31/15 documented as of this encounter
--- OUTSIDE RECORDS SUMMARY | 2024-06-29 00:33 | XMS_ITS | Encounter Summary ---
Author Organization [facility] Facility Care Team Providers Care Heel Seat Fitter Machine Name Role Phone Mick Flowers MD Primary Care Provider [phone] Encounter Details Date Type Department Care Team (Late st Contact Info) Description 04/11/2016 9:00 AM CDT - 04/11/2016 11:59 PM T Hospital [facility] [address] [facility] [address] [place] [address] Social History Tobacco Use Types Packs/Day Years Used Date Smoking Tobacco: Never Assessed Sex and Gender Information Value Date Recorded Sex Assigned at Not on file Legal Sex Male 3:12 AM FAMILY PARTNER Gender Identity Not on file Sexual Orientation [...] 11/01/2015 05/06/2018 documented as of this encounter Plan of Treatment Not on file documented as of this encounter Visit Diagnoses Not on filedocumented in this encounter Care Teams Heel Seat Fitter Machine Relationship Specialty Start Date End Date Mick Flowers MD PCP - General 11/01/15 10/30/16 documented as of this encounter
--- OUTSIDE RECORDS SUMMARY | 2024-06-29 00:33 | XMS_ITS | Encounter Summary ---
Author Organization [facility] Address [address] [place] [address] Care Team Providers Care Jewelry Estimator Name Role Phone Mick Flowers MD Primary Care Provider [phone] Encounter Details Date Type Department Care Team (Latest Contact Info) Description 06/12/2016 10:12 AM RING STRIKER Hospital Encounter [facility] Oscar Cabezas MD [address] [address] Pain in right elbow Social History Tobacco Use Types Packs/Day Years Used Date Smoking Tobacco: Never Assessed Sex and Gender Information Value Date Recorded Sex Assigned at Not on file Legal Sex Male 3:12 AM RING STRIKER Gender Identity Not on file Sexual Orientation [...] Name Priority Date/Time Associated Diagnosis Comments XR ELBOW RIGHT 3 OR MORE VIEWS Routine 06/12/2016 10:14 AM RING STRIKER documented in this encounter Results * XR Elbow Right 3 or More Views (06/12/2016 10:14 AM RING STRIKER) Anatomical Region Laterality Modality Upper Extremities, Elbow Right Radiogr aphic Imaging 06/12/2016 10:1 4 AM RING STRIKER Impressions 06/16/2016 7:53 AM RING STRIKER ??Normal right elbow x-rays THIS IS AN ELECTRONICALLY VERIFIED REPORT 06/16/2016 7:50 AM: ??Oscar Reich M.D. ?? Oscar Reich M.D. TL:jim 07:50 AM 07:50 AM BM [EOD] Narrative 06/16/2016 7:53 AM RING STRIKER EXAMINATION: ??3 views right elbow REASON FOR EXAM: ??Right elbow pain COMPARISON: ??None FINDINGS: ??AP lateral and oblique right elbow show no obvious pathology Procedure Note Provider, MD Bettie - 11/09/2020 EXAMINATION: 3 views right elbow REASON FOR EXAM: Right elbow pain COMPARISON: None FINDINGS: AP lateral and oblique right elbow show no obvious pathology IMPRESSION: Normal right elbow x-rays THIS IS AN ELECTRONICALLY VERIFIED REPORT 06/16/2016 7:50 AM: Oscar Reich M.D. Oscar Reich M.D. TL:jim 07:50 AM 07:50 AM [facility] [EOD] us Oscar Reich MD IMG XR PROCEDURES Final Result documented in this encounter Visit Diagnoses Diagnosis Pain in right elbow Pain in joint, upper arm documented in this encounter Care Teams Jewelry Estimator Relationship Specialty Start Date End Date Mick Flowers MD PCP - General 11/01/15 10/30/16 documented as of this encounter
--- OUTSIDE RECORDS SUMMARY | 2024-06-29 00:33 | XMS_ITS | Encounter Summary ---
Author Organization [facility] Address [address] [place] [address] Phone Care Team Providers Care Flower Planter Name Role Phone Mick Flowers MD Primary Care Provider [phone] Encounter Details Date Type Department Care Team (Late st Contact Info) Description 05/21/2018 Orders Only [facility] Multiple Sclerosis [address] [place] [phone] Marlene Jones LPN Social History Tobacco Use Types Packs/Day Years Used Date Smoking Tobacco: Never Smokeless Tobacco: Never Alcohol Use Standard Drinks/Week Comments Yes 21 (1 standard drink = 0.6 oz pu re alcohol) Sex and Gender Information Value Date Recorded Sex Assigned at Not on file Legal Sex Male 3:12 AM PRESSURE SUPERVISOR Gender Identity Not on file Sexual Orientation Not on file documented as of this encounter Ordered Prescriptions Prescription Sig Dispense Quantity Refills Last Filled Start Date End Date dalfampridine (AMPYRA) 10 mg tablet extended release 12 hr Take 1 tablet (10 mg total) by mouth 2 (two) times a day. 60 tablet 4 05/21/2018 09/04/2018 documented in this encounter Plan of Treatment Not on file documented as of this encounter Visit Diagnoses Not on filedocumented in this encounter Discontinued Medications Medication Sig Discontinue Reason Start Date End Da te dalfampridine (AMPYRA) 10 mg tablet extended release 12 hr Take 1 tablet (10 mg total) by mouth 2 (two) times a day. Reorder 05/20/2018 05/21/2018 documented as of this encounter Care Teams Flower Planter Relationship Specialty Start Date End Date Mick Flowers MD PCP - General 05/14/17 documented as of this encounter
--- OUTSIDE RECORDS SUMMARY | 2024-06-29 00:33 | XMS_ITS | Encounter Summary ---
Author Organization [facility] Address [address] [place] [address] Phone Care Team Providers Care Manager Core Name Role Phone Mick Flowers MD Primary Care Provider [phone] Encounter Details Date Type Department Care Team (Late st Contact Info) Description 02/05/2019 Orders Only [facility] Surgery [address] [place] [phone] Marquis Lopez MD [address] [facility] [address] [place], [place] [id number] Neurogenic bladder (Primary Dx); Urinary tract infection without hematuria, site unspecified Social History Tobacco Use Types Packs/Day Years Used Date Smoking Tobacco: Never Smokeless Tobacco: Never Alcohol Use Standard Drinks/Week Comments Yes 21 (1 standard drink = 0.6 oz pu re alcohol) Sex and Gender Information Value Date Recorded Sex Assigned at Not on file Legal Sex Male 3:12 AM METAL ANNEALER Gender Identity Not on file Sexual Orientation Not on file documented as of this encounter Plan of Treatment Scheduled Orders Name Type Priority Associated Diagnoses Orde r Schedule Urine culture Urine, bladder Microbiology Routine Neurogenic bladder Urinary tract infection without hematuria, site unspecified Expected: 04/28/2019, Expires: 02/06/2020 documented as of this encounter Visit Diagnoses Diagnosis Neurogenic bladder- Primary Neurogenic bladder, NOS Urinary tract infection without hematuria, site unspecified documented in this encounter Care Teams Manager Core Relationship Specialty Start Date End Date Mick Flowers MD PCP - General 05/14/17 documented as of this encounter
--- OUTSIDE RECORDS SUMMARY | 2024-06-29 00:33 | XMS_ITS | Encounter Summary ---
Author Organization [facility] Address [address] [facility] [address] [place] [address] Care Team Providers Care Technician Name Role Phone Mick Flowers MD Primary Care Provider [phone] Reason for Visit * Diagnostic Imaging (Routine) - Closed Specialty Diagnoses / Procedures Referred By Christy elizabeth Referred To Contact Diagnoses Right elbow pain Procedures XR Elbow Right 3+ View Sandhya Boyle MD Phone: tel: fax: Referral ID Status Reason Start Date Expiration Date Visits Re quested Visits Authorized [id number] Closed 07/01/2018 01/10/2020 1 1 Encounter Details Date Type Department Care Team (Latest Contact Info) Description 07/01/2018 9:35 AM OVEREDGER - 07/01/2018 11:59 PM OVEREDGER Hospital Encounter [facility] Orthopedics and Sports Medicine [address] [place] [phone] Discharge Disposition: Discharge to home or self care Social History Tobacco Use Types Packs/Day Years Used Date Smoking Tobacco: Never Smokeless Tobacco: Never Alcohol Use Standard Drinks/Week Comments Yes 21 (1 standard drink = 0.6 oz pu re alcohol) Sex and Gender Information Value Date Recorded Sex Assigned at Not on file Legal Sex Male 3:12 AM OVEREDGER Gender Identity Not on file Sexual Orientation Not on file documented as of this encounter Medications at Time of Discharge felodipine (PLENDIL) 5 mg 24 hr tabletIndications :hypertension Take 1 tablet (5 mg total) by mouth 2 (two) times a day 07/19/2007 ALPRAZolam (XANAX) 0.25 mg tabletIndications :anxiety Take 1 tablet (0.25 mg total) by mouth nightly as needed for sleep 1 06/27/2018 09/12/2022 ALPRAZolam (XANAX) 0.5 mg tablet TK 1 T PO TID PRN 0 04/23/2018 10/21/2018 atorvastatin (LIPITOR) 20 mg tabletIndications :hyperlipidemia Take 20 mg by mouth every morning 2021 dalfampridine (AMPYRA) 10 mg tablet extended release 12 hr Take 1 tablet (10 mg total) by mouth 2 (two) times a day. 60 tablet 4 05/21/2018 09/04/2018 furosemide (LASIX) 20 mg tablet TK 1 [...] XR ELBOW RIGHT 3 OR MORE VIEWS Schedule Routine, Read Routine (OP Routine) 07/01/2018 9:53 AM OVEREDGER Olecranon bursitis of right elbow documented in this encounter Results * XR Elbow Right 3+ View (07/01/2018 9:53 AM OVEREDGER) Anatomical Region Laterality Modality Upper Extremities, Elbow Right Radiogr aphic Imaging Narrative 07/01/2018 10:39 AM OVEREDGER Upon my review of the images, negative for fracture or dislocation. us Sandhya Boyle MD IMG XR PROCEDURES Cecilia l Result documented in this encounter Visit Diagnoses Not on filedocumented in this encounter Care Teams Technician Relationship Specialty Start Date End Date Mick Flowers MD PCP - General 05/14/17 documented as of this encounter
--- OUTSIDE RECORDS SUMMARY | 2024-06-29 00:33 | XMS_ITS | Encounter Summary ---
Author Organization [facility] Facility Care Team Providers Care Continuous Improvement Director Name Role Phone Mick Flowers MD Primary Care Provider [phone] Encounter Details Date Type Department Care Team (Late st Contact Info) Description 05/15/2016 9:00 AM RESTAURANT COOK - 05/15/2016 11:59 PM [facility] Hospital Encounter [facility] Marquis Gonzales MD [address] [facility] [address] [place] [address] Social History Tobacco Use Types Packs/Day Years Used Date Smoking Tobacco: Never Assessed Sex and Gender Information Value Date Recorded Sex Assigned at Not on file Legal Sex Male 3:12 AM RESTAURANT COOK Gender Identity Not on file Sexual [...] on filedocumented in this encounter Care Teams Continuous Improvement Director Relationship Specialty Start Date End Date Mick Flowers MD PCP - General 11/01/15 10/30/16 documented as of this encounter
--- OUTSIDE RECORDS SUMMARY | 2024-06-29 00:33 | XMS_ITS | Encounter Summary ---
Author Organization [facility] Facility Care Team Providers Care Electrician Supervisor Substation Name Role Phone Mick Flowers MD Primary Care Provider [phone] Encounter Details Date Type Department Care Team (Late st Contact Info) Description 07/01/2015 - 07/01/2015 11:59 PM HAND BOX FOLDER Hospital Encounter [facility] Marquis Gonzales MD [address] [facility] [address] [place] [address] Neuromuscular dysfunction of bladder Social History Tobacco Use Types Packs/Day Years Used Date Smoking Tobacco: Never Assessed Sex and Gender Information Value Date Recorded Sex Assigned at Not on file Legal Sex Male 3:12 AM HAND BOX FOLDER Gender Identity Not on file Sexual Orientation [...] Name Priority Date/Time Associated Diagnosis Comments URINE (AEROBIC) CULTURE, CDR Routine 07/01/2015 10:26 AM HAND BOX FOLDER DISCHARGE LABORATORY CUMULATIVE REPORT 07/01/2015 documented in this encounter Results * Urine (aerobic) culture (07/01/2015 10:26 AM HAND BOX FOLDER) Urine, catheterized (Unknown) 07/01/2015 10:26 AM HAND BOX FOLDER 07/01/2015 11:07 AM HAND BOX FOLDER Narrative HISTORICAL RESULTS - 07/02/2015 2:59 PM HAND BOX FOLDER Growth indicative of contamination with periurethral padmini. Please submit a new specimen with special attention given to the collection process and to prompt transport to the laboratory. Historical Provider LAB MICROBIOLOGY - GENERA L ORDERABLES Final Result HISTORICAL RESULTS * DISCHARGE LABORATORY CUMULATIVE REPORT (07/01/2015) Narrative 07/01/2015 Ordered by an unspecified provider. us Historical Provider LAB BLOOD ORDERABLES Cecilia l Result documented in this encounter Visit Diagnoses Diagnosis Neuromuscular dysfunction of bladder documented in this encounter Care Teams Electrician Supervisor Substation Relationship Specialty Start Date End Date Mick Flowers MD PCP - General 09/19/13 10/31/15 documented as of this encounter
--- OUTSIDE RECORDS SUMMARY | 2024-06-29 00:33 | XMS_ITS | Encounter Summary ---
Author Organization [facility] Address [address] [place] [address] Phone Care Team Providers Care Golf Cart Maker Name Role Phone Mick Flowers MD Primary Care Provider [phone] Encounter Details Date Type Department Care Team (Late st Contact Info) Description 02/13/2018 Telephone [facility] ([facility] - [facility] Urology [address] [facility] [address] [place] [address] [place] [address] Fely Back Social History Tobacco Use Types Packs/Day Years Used Date Smoking Tobacco: Never Assessed Sex and Gender Information Value Date Recorded Sex Assigned at Not on file Legal Sex Male 3:12 AM MINK FARMER Gender Identity Not on file Sexual Orientation Not on file documented as of this encounter Miscellaneous Notes * Telephone Encounter - Fely Back - 02/13/2018 8:34 AM CDT Pt. Is calling to schedule for Botox injection please cb documented in this encounter Plan of Treatment Not on file documented as of this encounter Visit Diagnoses Not on filedocumented in this encounter Care Teams Golf Cart Maker Relationship Specialty Start Date End Date Mick Flowers MD PCP - General 05/14/17 documented as of this encounter
--- OUTSIDE RECORDS SUMMARY | 2024-06-29 00:33 | XMS_ITS | Encounter Summary ---
Author Organization [facility] Address [address] [place] [address] Phone Care Team Providers Care Automation Controls Engineer Name Role Phone Mick Flowers MD Primary Care Provider [phone] Encounter Details Date Type Department Care Team (Late st Contact Info) Description 07/31/2018 Telephone [facility] Surgery [address] [facility] [address] [place] [phone] Marquis Lopez MD [address] [facility] [address] [place], [place] [id number] Social History Tobacco Use Types Packs/Day Years Used Date Smoking Tobacco: Never Smokeless Tobacco: Never Alcohol Use Standard Drinks/Week Comments Yes 21 (1 standard drink = 0.6 oz pu re alcohol) Sex and Gender Information Value Date Recorded Sex Assigned at Not on file Legal Sex Male 3:12 AM TOOL AND EQUIPMENT RENTAL CLERK Gender Identity Not on file Sexual Orientation Not on file documented as of this encounter Miscellaneous Notes * Telephone Encounter - Terri Nicholas LPN - 07/31/2018 2:22 PM TOOL AND EQUIPMENT RENTAL CLERK Phoned patient L/M I have the approval for his Botox in the OR, please call to schedule. AND EQUIPMENT RENTAL CLERK * Telephone Encounter - Terri Nicholas LPN - 07/31/2018 2:22 PM TOOL AND EQUIPMENT RENTAL CLERK ----- Message from Beverley Israel sent at 07/30/2018 8:22 AM TOOL AND EQUIPMENT RENTAL CLERK ----- Regarding: RE: Approval Terri, you can schedule him & had the approval start today ThanksBeverley Pre-D [facility] @ [phone] per Diallo [id number] 300 units 3 times a year @ [place] Approved [place] [id number]. Auth # [id number]. Dates 07/30/18-07/[id number]- LKN 07/30/18 ----- Message ----- From: Terri Nicholas LPN Sent: 07/24/2018 2:23 PM To: Beverley Israel Subject: RE: Approval No he is not scheduled yet. Do I need to wait till after 08/16/18 to schedule him? ----- Message ----- From: Beverley Israel Sent: 07/24/2018 10:10 AM To: Terri Nicholas LPN Subject: RE: Approval Terri, is he scheduled? I can not auth until 08/16/18 Thanksbeverley ----- Message ----- From: Terri Nicholas LPN Sent: 07/19/2018 4:36 PM To: Beverley Israel Subject: RE: Approval Yes he had a treatment on 05/06/2018 for 300 units of Botox ----- Message ----- From: Beverley Israel Sent: 07/03/2018 10:03 AM To: Terri Nicholas LPN Subject: RE: Approval Terri, did he not go in April? He has a current Auth for one more treatment or is this for another date? Pre-D per Fabienne @ [facility] @ [phone] patient has an auth # [id number]. Dates 09/03/17-08/16/18. 4 times a year. The patient is good for the 05/06/18 surgery. He will need a new Auth after this treatment- KIESHA 03/29/18 ----- Message ----- From: Terri Nicholas LPN Sent: 07/03/2018 9:30 AM To: Kennedy Lozano Pre-Determination Pool Subject: Approval Can he get approval for Botox 300 units in the OR Dx: Neurogenic Bladder and Overactive Bladder. Thanks, AND EQUIPMENT RENTAL CLERK documented in this encounter Plan of Treatment Not on file documented as of this encounter Visit Diagnoses Not on filedocumented in this encounter Care Teams Automation Controls Engineer Relationship Specialty Start Date End Date Mick Flowers MD PCP - General 05/14/17 documented as of this encounter
--- OUTSIDE RECORDS SUMMARY | 2024-06-29 00:33 | XMS_ITS | Encounter Summary ---
Author Organization [facility] Address [address] [place] [address] Care Team Providers Care Cotton Program Technician Name Role Phone Mick Flowers MD Primary Care Provider [phone] Encounter Details Date Type Department Care Team (Late st Contact Info) Description 05/14/2017 8:29 AM RESEARCH CHEMICAL ENGINEER - 05/14/2017 12:45 PM RESEARCH CHEMICAL ENGINEER Hospital Encounter [facility] OP INTERIM [phone] Marquis Lopez MD [address] [facility] [address] [place] [address] Discharge Disposition: Discharge to home or self care Social History Tobacco Use Types Packs/Day Years Used Date Smoking Tobacco: Never Assessed Sex and Gender Information Value Date Recorded Sex Assigned at Not on file Legal Sex Male 3:12 AM RESEARCH CHEMICAL ENGINEER Gender Identity Not on file Sexual [...] 11/01/2015 05/06/2018 documented as of this encounter Discharge Disposition Disposition Code Departure Means Destination Discharge to home or self care documented in this encounter Miscellaneous Notes * Op Note - ProviderBettie MD - 05/14/2017 12:00 AM CST Patient: MARITA EMERY Reg No: [id number] U H #: [id number] Admit Dt.: 05/14/2017 : 1965 Pt Type: SDS Room No: Attending: Marquis Lopez M.D. Surgeon: Marquis Lopez M.D. Dictating: Marquis Lopez M.D. Service Dt: 05/14/2017 OPERATIVE REPORT FACILITY ID: [facility] SURGEON Marquis Lopez MD FIRST HOCKEY PLAYER Eleazar Bae MD PREOPERATIVE DIAGNOSIS Neurogenic bladder, refractory urinary urge incontinence from neurogenic bladder. POSTOPERATIVE DIAGNOSIS Neurogenic bladder, refractory urinary urge incontinence from neurogenic bladder. PROCEDURES Cystoscopy, injection of 300 units of Botox inside the bladder. ANESTHESIA General anesthesia. COMPLICATION None. SPECIMEN None. ESTIMATED BLOOD LOSS None. INDICATIONS FOR SURGERY Marita is a gentleman who has a neurogenic bladder with urinary urge incontinence. He responded well with Botox injections in the past. His Botox is wearing out. He has recurrent urinary urge incontinence of neurogenic bladder. He is here for Botox injections into the bladder. Of note, he does self catheterization to empty his bladder. There was no difficulty doing self-catheterization. DETAILS OF SURGERY Patient identified in the preop area. He was started on IV antibiotics. He was then put in low lithotomy position. Bilateral SCDs were placed for DVT prophylaxis. Prepped and draped in standard surgical fashion. A rigid scope was advanced into his bladder. There is no urethral stricture or difficulty passing the scope. Once inside the bladder the bladder mucosa looks normal. Next 300 units of Botox into 30 cc of injectable normal saline. Through a Wilver needle we injected the Botox into the detrusor area. We injected a total of both 400 units in 1 mL aliquot covering the posterior bladder wall, the left and the right lateral bladder wall, as well as the trigone of the bladder sparing the ureteral orifice and the dome of the bladder. At the end of the case fulguration is not necessary. His bladder was then emptied. All counts were correct at the conclusion of the case. He was awakened and sent to recovery room in stable condition. Electronically Authenticated and Edited by: Alpesh Lopez MD On 06/01/2017 02:51 PM RESEARCH CHEMICAL ENGINEER Marquis Lopez M.D. [facility] #[id number] Editing MT: TD: 05/16/2017 06:31 PM cc: Marquis Lopez M.D. * Op Note - Provider, MD Bettie - 05/14/2017 12:00 AM CST Patient: MARITA EMERY Reg No: [id number] U H #: [id number] Admit Dt.: 05/14/2017 : 1965 Pt Type: SDS Room No: Attending: Marquis Lopez M.D. Surgeon: Marquis Lopez M.D. Dictating: Marquis Lopez M.D. Service Dt: 05/14/2017 OPERATIVE REPORT FACILITY ID: [facility] SURGEON Marquis Lopez MD ADDENDUM On prior operating report job #[id number], date of surgery 05/14/2017, the addendum reads as following: PRESENCE STATEMENT I, Dr. Marquis Lopez, was present for the surgical procedure. Electronically Authenticated by: Alpesh Lopez MD On 06/01/2017 02:53 PM RESEARCH CHEMICAL ENGINEER Marquis Lopez M.D. [facility] #[id number] Editing MT: TD: 05/23/2017 02:45 PM cc: Marquis Lopez M.D. documented in this encounter Plan of Treatment Not on file documented as of this encounter Visit Diagnoses Not on filedocumented in this encounter Care Teams Cotton Program Technician Relationship Specialty Start Date End Date Mick Flowers MD PCP - General 05/14/17 documented as of this encounter
--- OUTSIDE RECORDS SUMMARY | 2024-06-29 00:33 | XMS_ITS | Encounter Summary ---
Author Organization [facility] Facility Care Team Providers Care Hourly Associate Name Role Phone Mick Flowers MD Primary Care Provider [phone] Encounter Details Date Type Department Care Team (Latest Contact Info) Description 07/30/2015 7:27 AM HOSPICE CLINICAL SUPERVISOR - 07/30/2015 4:00 PM HOSPICE CLINICAL SUPERVISOR Hospital Encounter [facility] Marquis Gonzales MD [address] [address] Neuromuscular dysfunction of bladder; Urge incontinence; Overactive bladder; Male erectile disorder (CODE); Other abnormalities of gait and mobility; Other parts counterman (current) drug therapy; Multiple sclerosis (CMS/HCC); Pure hypercholesterolemia Social History Tobacco Use Types Packs/Day Years Used Date Smoking Tobacco: Never Assessed Sex and Gender Information Value Date Recorded Sex Assigned at Not on file Legal Sex Male 3:12 AM HOSPICE CLINICAL SUPERVISOR Gender Identity Not on file Sexual Orientation Not on file documented as of this encounter Medications at Time of Discharge felodipine (PLENDIL) 5 mg 24 hr tabletIndications :hypertension Take 1 tablet (5 mg total) by mouth 2 (two) times a day 07/19/2007 documented as of this encounter Miscellaneous Notes * Op Note - ProviderBettie MD - 07/30/2015 12:00 AM CST Patient: MARITA EMERY. Reg No: [id number] U H #: [id number] Admit Dt.: 07/30/2015 : 1965 Pt Type: OPS Room No: OPSC- Attending: Marquis Lopez M.D. Surgeon: Marquis Lopez M.D. Dictating: Marquis Lopez M.D. Service Dt: 07/30/2015 OPERATIVE REPORT ANESTHESIA: General anesthesia. PREOPERATIVE DIAGNOSIS (ES): Neurogenic bladder, neurogenic urge incontinence that is refractory to anticholinergic treatment. POSTOPERATIVE DIAGNOSIS (ES): Neurogenic bladder, neurogenic urge incontinence that is refractory to anticholinergic treatment. NAME OF OPERATION: Cystoscopy, injection of 300 units of Botox into the bladder through cystoscope. INDICATIONS FOR PROCEDURE: This is a gentleman with neurogenic bladder, with neurogenic urinary urge incontinence with detrusor overactivity. He was previously had failed anticholinergic treatment. He has a good response to Botox injections in the past. He is here coming back for repeat Botox injections. The effects of his Botox appears to be wearing out. We discussed the different treatment options including the risks and benefits, complications, or expectation of the Botox injections. He has consented to proceed. He wants to do 300 units of Botox. He is doing 300 units of Botox injections in the past. He previously had a good response to that dose of Botox. DESCRIPTION OF PROCEDURE: The patient was identified in the Preoperative Area, started on intravenous antibiotics. He was then prepped and draped in the standard surgical fashion. Rigid cystoscope was advanced into his bladder. We then diluted 300 units of Botox into 30 cubic centimeters of residual pre-injectable normal saline, at 4 we did not see that we injected the Botox into the bladder. We injected each injection site and receive approximately 0.5 to 1 cubic centimeters of Botox solutions. We injected into the submucosa as well as the detrusor into muscle. We started in the posterior bladder wall and then advanced it to laterally to the left lateral wall and the right lateral wall. We also injected 2 cubic centimeters of Botox into the trigone of the bladder. We spared the ureteral orifice bilaterally with just the Botox injections. At the conclusion of the case, there is no bleeding. Totaling 300 units of Botox was injected. At this time, we emptied bladder out. There was no clot. He was awakened and sent to Recovery Room in stable condition. ATTESTATION OF PRESENCE: Dr. Marquis Lopez was present for the procedure. SPECIMENS REMOVED: None. COMPLICATIONS: None. Electronically Authenticated by: Alpesh Lopez MD On 08/16/2015 08:06 AM HOSPICE CLINICAL SUPERVISOR Flex EricL:tomi #[id number] Editing MT: [email or web address] TD: 08/07/2015 06:53 AM cc: Marquis Lopez M.D. documented in this encounter Plan of Treatment Not on file documented as of this encounter Visit Diagnoses Diagnosis Neuromuscular dysfunction of bladder Urge incontinence Overactive bladder Hypertonicity of bladder Male erectile disorder (CODE) Other abnormalities of gait and mobility Other parts counterman (current) drug therapy Multiple sclerosis (HCC) Multiple sclerosis Pure hypercholesterolemia documented in this encounter Care Teams Hourly Associate Relationship Specialty Start Date End Date Mick Flowers MD PCP - General 09/19/13 10/31/15 documented as of this encounter
--- OUTSIDE RECORDS SUMMARY | 2024-06-29 00:33 | XMS_ITS | Encounter Summary ---
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 Anesthesia Event [facility] [address] [place] [address] Simeon Crews MD [address] [place] [address] Carito Stuart CRNA [address] [place] [address] Anesthesia Record Procedure Summary Procedure Name Responsible Anesthesiologist Anesthesia Start Time Anesthesia Stop Time INJECTION BOTOX 300 UNITS INTO BLADDER PLESE MAKE THIS 300 UNITS (Face) Simeon Crews MD 05/06/18 0726 05/06/18 0803 Events Date Time Event Comment 05/06/2018 0722 0726 An Start 0726 An Start Data 0728 In Room 0733 An Induction The patient was reevaluated immediately before moderate or deep sedation use and before anesthesia induction. 0735 An LMA 0735 Anesthesia Ready 0743 Proc Start 0753 Proc Fin 0758 Airway Removed 0758 an stop data 0759 Out of Room 0803 Handoff to RN I completed my handoff [...] disposition at the time of handoff: PACU 0803 An Stop Meds Name Total lidocaine 1 % PF 80 mg fentaNYL 100 mcg propofol 200 mg phenylephrine 100 mcg/mL 350 mcg ondansetron PF (ZOFRAN) 2 mg/mL injectio n 4 mg famotidine PF 20 mg ceFAZolin 2,000 mg glycopyrrolate 0.4 mg LR 600 mL * Agents Name O2% N2O O2 Sevoflurane Inspired Sevoflurane * Blood No blood administrations on file. Lines, Drains, and Airways Type Details Placement Removal Peripheral IV Placement Date: 05/06/18; Placement Time: 0614; Catheter Size: 18 G; Orientation: Left; Location: Forearm; Site Prep: Alcohol; Technique: Anatomical landmarks; Insertion Attempts: 1; Patient Tolerance: Tolerated well; Removal Date: 05/06/18; Removal Time: 0845 05/06/18 0614 by Raven Elias RN 05/06/18 0845 by Becky Teran RN Supraglottic Airway Placement Date: 05/06/18; Placement Time: 0742 (created via procedure documentation); Mask Ventilation: 1; Size: 5; Insertion Attempts: 1; Removal Date: 05/06/18; Removal Time: 0758 05/06/18 0742 by Carito Stuart CRNA 05/06/18 0758 by Carito Stuart, NAOMI RETIRED Surgical Site 05/06/18; 0753; Perineum; 07/04/22; 1357; Removal date unknown/not present on admission 05/06/18 0753 by Taya Peterson RN 07/04/22 1357 by Inga Mcgill, RN documented in this encounter Social History Tobacco Use Types Packs/Day Years Used Date Smoking Tobacco: Never Smokeless Tobacco: Never Alcohol Use Standard Drinks/Week Comments Yes 21 (1 standard drink = 0.6 oz pu re alcohol) Sex and Gender Information Value Date Recorded Sex Assigned at Not on file Legal Sex Male 3:12 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 Gender Identity Not on file Sexual Orientation Not on file documented as of this encounter OR Notes * Anesthesia Postprocedure Evaluation - Alanoglu, Zekeriyya, MD - 05/06/2018 8:14 AM CST Patient: Doc Emery Procedure Summary Date: 05/06/18 Room / Location: [facility] OR POD 1 ROOM 323 / [facility] OR POD 1 Anesthesia Start: 725 Anesthesia Stop: 802 Procedures: INJECTION BOTOX 300 UNITS INTO BLADDER PLESE MAKE THIS 300 UNITS (N/A Face) CYSTOSCOPY (N/A Urethra) Diagnosis: Neurogenic bladder (Neurogenic bladder [N31.9]) Surgeon: Marquis Lopez MD Responsible Provider: Simeon Crews MD Anesthesia Type: general ASA Status: 2 Anesthesia Type: general Last vitals BP 123/86 (BP Location: Right arm, Patient Position: Lying) Pulse 76 Temp 36 ??C (96.8 ??F) (Temporal) Resp (!) 7 SpO2 96% Anesthesia Post Evaluation Patient location during evaluation: PACU Patient participation: complete - patient participated Level of consciousness: fully awake Pain score: 1 Pain management: adequate Airway patency: adequate Evidence of recall: no Anesthetic complications: no Cardiovascular status: acceptable Respiratory status: acceptable Hydration status: acceptable Pt is: normothermic Nausea/Vomiting status: none L [employer]TERS AND MACHINISTS * Anesthesia Procedure Notes - Carito Stuart CRNA - 05/06/2018 7:42 AM CSTAssociated Order(s): ANESTHESIA INTUBATION Airway Patient location: OR Urgency: elective Indications for airway management: anesthesia Difficult airway: no Staff: Placed by: ONLINE MARKETING COORDINATOR: CARITO STUART Emergent airway documentation: Risks and benefits discussed: yes Consent obtained: yes Consent given by: patient Airway prep: Preoxygenated: yes Patient position: sniffing Mask difficulty assessment: 1 - vent by mask Spontaneous ventilation during airway: absent Sedation level during airway: GA Final airway details: Final airway type: supraglottic airway Final supraglottic airway: IGel SGA size: 5 Number of attempts: 1 L [employer]S AND MACHINISTS * Anesthesia Preprocedure Evaluation - Simeon Crews MD - 05/06/2018 7:20 AM CST Anesthesia Evaluation Doc Emery is a 52 y.o. male Procedure(s): INJECTION BOTOX 300 UNITS INTO BLADDER PLESE MAKE THIS 300 UNITS CYSTOSCOPY Patient Active Problem List Diagnosis ??? Neurogenic bladder Past Medical History: Diagnosis Date ??? Hypertension Hypertension ??? Multiple sclerosis (CMS/HCC) Multiple Sclerosis History reviewed. No pertinent surgical history. No Known Allergies HOME MEDICATIONS : ALPRAZolam (XANAX) 0.5 mg tablet AMPYRA 10 mg tablet extended release 12 hr atorvastatin (LIPITOR) 20 mg tablet felodipine (PLENDIL) 5 mg 24 hr tablet furosemide (LASIX) 20 mg tablet losartan (COZAAR) 100 mg tablet POTASSIUM CHLORIDE ER 20 mEq CR tablet sulfamethoxazole-trimethoprim (BACTRIM,SEPTRA) 400-80 mg per tablet methylPREDNISolone (MEDROL, DIAMANTE,) 4 mg tablet Current Facility-Administered Medications: ??? ceFAZolin (ANCEF) 2000 mg in 20 mL sterile water (premix), 2,000 mg, intravenous, Once ??? sodium chloride 0.9% flush 0.5-20 mL, 0.5-20 mL, intra-catheter, PRN Social History Smoking Status ??? Never Smoker Smokeless Tobacco ??? Never Used Alcohol Use ??? 12.6 oz/week ??? 21 Glasses of wine per week Drug Use No Family History Problem Relation Age of Onset ??? Multiple sclerosis Other Family history of Multiple sclerosis; ??? Hypertension Other Family history of Hypertension; ??? Melanoma Mother Family history of malignant melanoma - (Added by TW Conv) PAT Physical Exam Airway Exam: Mallampati: II Cervical ROM: FROM TM distance: 3.5 Cardiovascular Exam: Rate: regular Rhythm: regular Pulmonary Exam: LCTA, bilat EENT Exam: trachea midline Dental Exam: Appears intact Abdominal exam: Abdomen is soft. Current state: Patient's current state is cooperative and interactive. Vitals: 05/06/18 0613 BP: 137/97 Pulse: 64 Resp: 19 Temp: 36.4 ??C (97.5 ??F) SpO2: 97% PT: No results found for requested labs [...] findings of the anesthesia pre-evaluation assessment dated: 05/06/2018. Airway Exam: Mallampati: II Cervical ROM: FROM TM distance: 3 Cardiovascular Exam: Rate: regular Rhythm: regular Pulmonary Exam: LCTA, bilat EENT Exam: trachea midline Dental Exam: Appears intact Abdominal Exam: Abdomen is soft. Current state: Patient's current state is cooperative and interactive. Anesthesia Plan ASA 2 Planned anesthesia: General Team communication plan: LMA Induction: Induction: intravenous. Postoperative Plan: Postoperative administration opioids intended. No postoperative mechanical ventilation intended. Patient's planned disposition post procedure is Outpatient. Informed Consent: Discussed plan with ONLINE MARKETING COORDINATOR. Anesthesia plan and risks discussed with patient and spouse. Consent and Attending signature: I and/or my designee have discussed the anesthesia plan, benefits, possible alternatives, parental presence at time of induction (if indicated), and clinically relevant risks that may include dental injury, unintentional awareness, and/or other complications. The patient and/or parent/legal guardian understand, and agree to proceed. All questions answered. L [employer]S [employer] MACHINISTS documented in this encounter Plan of Treatment Not on file documented as of this encounter Procedures Procedure Name Priority Date/Time Associated Diagnosis Comments PA AN PROCEDURE PLACEHOLDER Routine 05/06/2018 7:42 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 Procedure Note - Carito Stuart CRNA - 05/06/2018 7:42 AM CSTThis note is in progress. Airway Patient location: OR Urgency: elective Indications for airway management: anesthesia Difficult airway: no Staff: Placed by: NAOMI: CARITO STUART Emergent airway documentation: Risks and benefits discussed: yes Consent obtained: yes Consent given by: patient Airway prep: Preoxygenated: yes Patient position: sniffing Mask difficulty assessment: 1 - vent by mask Spontaneous ventilation during airway: absent Sedation level during airway: GA Final airway details: Final airway type: supraglottic airway Final supraglottic airway: IGel SGA size: 5 Number of attempts: 1 PA AN ELECTIVE SUPRAGLOTTIC AIRWAY Routine 05/06/2018 7:42 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 Procedure Note - Carito Stuart CRNA - 05/06/2018 7:42 AM CSTThis note is in progress. Airway Patient location: OR Urgency: elective Indications for airway management: anesthesia Difficult airway: no Staff: Placed by: ONLINE MARKETING COORDINATOR: CARITO STUART Emergent airway documentation: Risks and benefits discussed: yes Consent obtained: yes Consent given by: patient Airway prep: Preoxygenated: yes Patient position: sniffing Mask difficulty assessment: 1 - vent by mask Spontaneous ventilation during airway: absent Sedation level during airway: GA Final airway details: Final airway type: supraglottic airway Final supraglottic airway: IGel SGA size: 5 Number of attempts: 1 documented in this encounter Visit Diagnoses Not on filedocumented in this encounter Administered Medications Inactive Administered Medications - up to 3 most recent administrations Medication Order MAR Action Action Date Dose Rate Site ceFAZolin (ANCEF) injection intravenous, As needed, Starting on 05/06/18 at 0736, Anesthesia Intra-op Given 05/06/2018 7:36 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 2,000 mg famotidine (PEPCID) injection Administer over 2 Minutes, As needed, heartburn, Starting on Sun05/06/18 at 0726, Anesthesia Intra-op Given 05/06/2018 7:26 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 20 mg fentaNYL (SUBLIMAZE) preservative free injection intravenous, As needed, Starting on Sun05/06/18 at 0726, Anesthesia Intra-op Given 05/06/2018 7:26 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 100 mcg glycopyrrolate (ROBINUL) injection As needed, Starting on Sun05/06/18 at 0744, Anesthesia Intra-op Given 05/06/2018 7:47 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 0.2 mg Given 05/06/2018 7:44 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 0.2 mg Lactated Ringer's (LR) infusion Continuous PRN, Starting on Sun05/06/18 at 0726, Anesthesia Intra-op New Bag 05/06/2018 7:26 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 lidocaine PF (XYLOCAINE) 10 mg/mL (1 %) preservative free injection As needed, Starting on Sun05/06/18 at 0733, Anesthesia Intra-op Given 05/06/2018 7:33 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 80 mg ondansetron (ZOFRAN) injection intravenous, As needed, nausea, vomiting, Starting on Sun05/06/18 at 0726, Anesthesia Intra-op Given 05/06/2018 7:26 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 4 mg phenylephrine (HOWIE-SYNEPHRINE) 0.5 mg/5 mL (100 mcg/mL) premix syringe in 0.9% sodium chloride intravenous, As needed, Starting on Sun05/06/18 at 0737, Anesthesia Intra-op Given 05/06/2018 7:51 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 100 mc g Given 05/06/2018 7:50 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 100 mcg Given 05/06/2018 7:47 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 50 mcg propofol (DIPRIVAN) IV intravenous, As needed, Starting on Sun05/06/18 at 0733, Anesthesia Intra-op Given 05/06/2018 7:33 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 200 mg documented in this encounter Orders Procedures Count Last Ordered Date First Orde red Date ANESTHESIA INTUBATION 1 05/06/2018 documented in this encounter Care Teams Transportation Security Screener Relationship Specialty Start Date End Date Mick Flowers MD PCP - General 05/14/17 documented as of this encounter
--- OUTSIDE RECORDS SUMMARY | 2024-06-29 00:33 | XMS_ITS | Encounter Summary ---
Author Organization 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
--- OUTSIDE RECORDS SUMMARY | 2024-06-29 00:33 | XMS_ITS | Encounter Summary ---
Author Organization [facility] Healthcare Address [address] [place] [address] Care Team Providers Care Dewaterer Operator Name Role Phone Mick Flowers MD Primary Care Provider [phone] Encounter Details Date Type Department Care Team (Late st Contact Info) Description 11/13/2016 7:42 AM CDT - 11/13/2016 11:03 AM CDT Hospital Encounter [facility] OP INTERIM [phone] Marquis Lopez MD [address] [facility] [address] [place] [address] Discharge Disposition: Discharge to home or self care Social History Tobacco Use Types Packs/Day Years Used Date Smoking Tobacco: Never Assessed Sex and Gender Information Value Date Recorded Sex Assigned at Not on file 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 Surgeon: Marquis Lopez M.D. Dictating: Marquis Lopez M.D. Service Dt: 11/13/2016 OPERATIVE REPORT FACILITY ID: [facility] SURGEON Marquis Lopez MD FIRST BARREL LEVELER Liban Garcia MD SECOND MOBILE APPLICATION ARCHITECT Leila Dockery M.D. PREOP DIAGNOSES Neurogenic bladder, neurogenic urinary urge incontinence. POSTOP DIAGNOSES Neurogenic bladder, neurogenic urinary urge incontinence. PROCEDURES Cystoscopy, injection of 300 units of Botox into the bladder. ANESTHESIA General anesthesia. COMPLICATION None. SPECIMEN None. ESTIMATED BLOOD LOSS None. INDICATIONS FOR SURGERY Marita is a gentleman with neurogenic bladder, history of meatal stenosis, he has urinary urge incontinence, he is here for Botox injections into the bladder. He responded well to 300 units of Botox in the past that lasted him many months. He has recurrent neurogenic urge incontinence, here for Botox injection. The risks and benefits have been discussed with the patient. He consented to proceed. DETAILS OF SURGERY Patient identified in the preop area. Started on IV antibiotics, then prepped and draped in standard surgical fashion. Bilateral SCDs placed for DVT prophylaxis. A rigid scope was advanced into the bladder. He has no meatal stenosis, and no urethral stricture. It went to the bladder without difficulties. Next, we diluted 300 units of Botox with 30 mL of injectable normal saline, and through a Wilver needle we injected the Botox into the detrusor muscle and submucosal area throughout the bladder. We injected approximately 1 cm apart in the posterior, left posterior bladder wall, the left and the right lateral bladder wall, as well as the trigone of the bladder. There was excellent hemostasis at the end of the case. Fulguration was not necessary. His bladder was then emptied out. He was then awakened and sent to recovery room in stable condition. PRESENCE STATEMENT Dr. Cho was present for the procedure. Electronically Authenticated and Edited by: Alpesh Lopez MD On 12/05/2016 09:49 AM CDT Marquis Lopez M.D. HHL:[facility] #[id number] Editing MT: TD: 11/22/2016 03:08 PM cc: Marquis Lopez M.D. documented in this encounter Plan of Treatment Not on file documented as of this encounter Visit Diagnoses Not on filedocumented in this encounter Care Teams Dewaterer Operator Relationship Specialty Start Date End Date Mick Flowers MD PCP - General 11/13/16 04/08/17 documented as of this encounter
--- OUTSIDE RECORDS SUMMARY | 2024-06-29 00:33 | XMS_ITS | Encounter Summary ---
Author Organization [facility] Address [address] [place] [address] Phone Care Team Providers Care Engineer Soils Name Role Phone Mick Flowers MD Primary Care Provider [phone] Encounter Details Date Type Department Care Team (Late st Contact Info) Description 07/30/2018 Telephone [facility] Beverley Israel Social History Tobacco Use Types Packs/Day Years Used Date Smoking Tobacco: Never Smokeless Tobacco: Never Alcohol Use Standard Drinks/Week Comments Yes 21 (1 standard drink = 0.6 oz pu re alcohol) Sex and Gender Information Value Date Recorded Sex Assigned at Not on file Legal Sex Male 3:12 AM X RAY TECH Gender Identity Not on file Sexual Orientation Not on file documented as of this encounter Miscellaneous Notes * Telephone Encounter - Beverley Israel - 07/30/2018 8:20 AM CST Pre-D [facility] @ [phone] per [place] [id number] 300 units 3 times a year @ [place] Approved via [id number]. Auth # [id number]. Dates 07/30/18-- [place] :On:03/29/2018 6:21:43 PM COMMUNICATION TO PROVIDER THIS PATIENT HAS OTHER HEALTH INSURANCE THAT IS PRIMARY TO NO AUTHORIZATION NEEDED-KIESHA 07/30/18 X RAY TECH documented in this encounter Plan of Treatment Not on file documented as of this encounter Visit Diagnoses Not on filedocumented in this encounter Care Teams Engineer Soils Relationship Specialty Start Date End Date Mick Flowers MD PCP - General 05/14/17 documented as of this encounter
--- OUTSIDE RECORDS SUMMARY | 2024-06-29 00:33 | XMS_ITS | Encounter Summary ---
Author Organization [facility] Address [address] [place] [address] Phone Care Team Providers Care Solution Advisor Name Role Phone Mick Flowers MD Primary Care Provider [phone] Encounter Details Date Type Department Care Team (Late st Contact Info) Description 09/04/2018 Orders Only [facility] Multiple Sclerosis [address] [place] [address] [place] [phone] Cherry Minor MD [address] [place] [address] Social History Tobacco Use Types Packs/Day Years Used Date Smoking Tobacco: Never Smokeless Tobacco: Never Alcohol Use Standard Drinks/Week Comments Yes 21 (1 standard drink = 0.6 oz pu re alcohol) Sex and Gender Information Value Date Recorded Sex Assigned at Not on file Legal Sex Male 3:12 AM 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 DIRECTOR Gender Identity Not on file Sexual Orientation Not on file documented as of this encounter Ordered Prescriptions Prescription Sig Dispense Quantity Refills Last Filled Start Date End Date dalfampridine (AMPYRA) 10 mg tablet extended release 12 hr Take 1 tablet (10 mg total) by mouth 2 (two) times a day 60 tablet 1 09/04/2018 10/08/2018 documented in this encounter Plan of Treatment Not on file documented as of this encounter Visit Diagnoses Not on filedocumented in this encounter Discontinued Medications Medication Sig Discontinue Reason Start Date End Da te dalfampridine (AMPYRA) 10 mg tablet extended release 12 hr Take 1 tablet (10 mg total) by mouth 2 (two) times a day. Reorder 05/21/2018 09/04/2018 documented as of this encounter Care Teams Solution Advisor Relationship Specialty Start Date End Date Mick Flowers MD PCP - General 05/14/17 documented as of this encounter
--- OUTSIDE RECORDS SUMMARY | 2024-06-29 00:33 | XMS_ITS | Encounter Summary ---
Author Organization [facility] Address [address] [place] [address] Care Team Providers Care It Administrative Assistant Name Role Phone Mick Flowers MD Primary Care Provider [phone] Reason for Referral * Diagnostic Imaging (Routine) - Closed Specialty Diagnoses / Procedures Referred By Christy elizabeth Referred To Contact Diagnoses Right elbow pain Procedures XR Elbow Right 3+ View Sandhya Boyle MD Phone: tel: fax: Referral ID Status Reason Start Date Expiration Date Visits Re quested Visits Authorized [id number] Closed 07/01/2018 01/10/2020 1 1 ENTICESHIP CONSULTANT Reason for Visit * Reason Comments Follow-up Encounter Details Date Type Department Care Team (Latest Contact Info) Description 07/01/2018 9:30 AM APPRENTICESHIP CONSULTANT Office Visit [facility] Orthopedics and Sports Medicine [address] [place] [phone] Sandhya Boyle MD [address] [place] [address] Olecranon bursitis of right elbow (Primary Dx); Medial epicondylitis, left Social History Tobacco Use Types Packs/Day Years Used Date Smoking Tobacco: Never Smokeless Tobacco: Never Alcohol Use Standard Drinks/Week Comments Yes 21 (1 standard drink = 0.6 oz pu re alcohol) Sex and Gender Information Value Date Recorded Sex Assigned at Not on file Legal Sex Male 3:12 AM APPRENTICESHIP CONSULTANT Gender Identity Not on file Sexual Orientation Not on file documented as of this encounter Last Filed Vital Signs Vital Sign Reading Time Taken Comments Blood Pressure 164/119 07/01/2018 10:01 AM APPRENTICESHIP CONSULTANT Pulse 72 07/01/2018 10:01 AM APPRENTICESHIP CONSULTANT Temperature - - Respiratory Rate - - Oxygen Saturation - - Inhaled Oxygen Concentration - - Weight 81.2 kg (179 lb) 07/01/2018 10:01 AM APPRENTICESHIP CONSULTANT Height 177.8 cm (5' 10 ) 07/01/2018 10:01 AM APPRENTICESHIP CONSULTANT Body Mass Index 25.68 07/01/2018 10:01 AM APPRENTICESHIP CONSULTANT documented in this encounter Progress Notes * Sandhya Boyle MD - 07/01/2018 9:30 AM CST FOLLOW UP VISIT Subjective CHIEF COMPLAINT He had concerns including Follow-up of the Right Elbow. HISTORY OF PRESENT ILLNESS Mr. Emery presents today with complaints of bilateral elbow pain, right elbow pain for 2 weeks, left elbow pain for 1 year. He denies any particular injury. The pain is sharp, moderate, activity related. Not exercising makes the pain better. He is not taking any medications for the pain nor has she tried any other treatments for the pain. He states he only came because his made him come. [place] have mild swelling on the point of his right elbow. He denies numbness or tingling. He is right-hand dominant. Pain Assessment Pain Assessment: 0-10 Pain Score: 7 Pain Location: Elbow Pain Orientation: Left MEDICATIONS He has a current medication list which includes the following prescription(s): alprazolam, alprazolam, atorvastatin, dalfampridine, felodipine, furosemide, losartan, and potassium chloride er. REVIEW OF SYSTEMS Review of Systems Constitutional: Negative. Negative for activity change, appetite change, chills and fever. HENT: Negative. Negative for congestion, dental problem, ear pain, hearing loss and voice change. Eyes: Negative. Negative for pain and visual disturbance. Respiratory: Negative. Negative for apnea, cough, chest tightness and shortness of breath. Cardiovascular: Negative. Negative for chest pain, palpitations and leg swelling. Gastrointestinal: Negative. Negative for blood in stool, constipation, diarrhea, nausea and vomiting. Endocrine: Negative for cold intolerance and heat intolerance. Genitourinary: Negative. Negative for difficulty urinating and hematuria. Musculoskeletal: Negative. Skin: Negative. Negative for color change, rash and wound. Allergic/Immunologic: Negative for environmental allergies. Neurological: Negative. Negative for dizziness, syncope, numbness and headaches. Hematological: Negative for adenopathy. Does not bruise/bleed easily. Psychiatric/Behavioral: Negative. Negative for confusion. The patient is not nervous/anxious and isnot hyperactive. All other systems reviewed and are negative. Objective PHYSICAL EXAM BP (!) 164/119 Pulse 72 Ht 177.8 cm (5' 10 ) Wt 81.2 kg (179 lb) BMI 25.68 kg/m?? C Spine C spine exam is normal. Inspection normal inspection Palpation The patient has normal palpation. Range of motion The patient has normal range of motion. Right strength The patient has 5/5 strength throughout. Left strength The patient has 5/5 strength throughout. Right neurovascular Patient has normal light touch sensation. The patient has normal right sided vascular. Left neurovascular The patient has normal left sided vascular. The patient has normal light touch sensation. Right reflexes The patient has normal reflexes on the right side of their body. Left reflexes The patient has normal reflexes on the left side of their body. Right side Spurling's: negative Left side Spurling's: spurling's Right shoulder The patient has normal inspection, palpation, range of motion, strength, and stability of the rightshoulder. Inspection The patient has normal inspection of the right shoulder. Palpation Tenderness is present. The patient has tenderness in the posterior shoulder area(s). Range of motion The patient has normal range of motion of the right shoulder. Strength The patient has 5/5 strength throughout the right shoulder. Neurovascular The patient has normal vascular on the right side of his body. He has normal sensation on the right side of his body. Tests Cross arm: negative Drop arm: negartive Hawkin's test: negative Impingement signs:negative Lluvia's: negative Neer's: negative Day's: negative Speed's: negative Spurling's: negative Left shoulder The patient has normal inspection, palpation, range of motion, strength, and stability of the left shoulder. Inspection The patient has normal inspection of the left shoulder. Palpation The patient has normal palpation of the left shoulder. Range of motion The patient has normal range of motion of the left shoulder. Strength The patient has 5/5 strength throughout. Neurovascular The patient has normal vascular on the left side of their body. The patient has normal sensation on the left side of their body. Tests Cross am: negative Drop arm: negative Impingement signs:negative Lluvia's: lluvia's Neer's: negative Day's: negative Speed's: negative Spurling's: negative Right elbow Inspection Olecranon bursa swelling: present Palpation Tenderness: present. The patient has tenderness in the olecranon bursa area(s). Range of motion The patient has normal range of motion of the right elbow. Stability The patient has normal stability of the right elbow. Strength The patient has 5/5 strength throughout. Neurovascular The patient has normal vascular on the right side of their body. The patient has normal sensation. Left elbow Inspection The patient has normal inspection of the left elbow. Palpation Tenderness: present. The tenderness is location in the medial epicondyle area(s). Range of motion The patient has normal range of motion of the left elbow. Stability The patient has normal stability of the left elbow. Strength The patient has 5/5 strength throughout. Neurovascular The patient has normal vascular on the left side of their body. The patient has normal sensation on the left side of their body. REVIEW OF X-RAYS/STUDIES/LABS XR Elbow Right 3+ View Upon my review of the images, negative for fracture or dislocation. Assessment/Plan Doc was seen today for follow-up. Diagnoses and all orders for this visit: Olecranon bursitis of right elbow - XR Elbow Right 3+ View Medial epicondylitis, left Procedures PLAN Reviewed x-ray images with Mr. Emery, he is currently asymptomatic, he is not looking for any further treatments. Explained that if the swelling over the right elbow gets worse, I can aspirate and inject the bursa. Can also inject steroid over the medial epicondyle as well if the pain gets worse. Recommend he start with [id number] medication, if this does not control his symptoms then consider steroid injection. If he is doing well I will see him back as needed, if his symptoms persist or get worse he should return to clinic for repeat evaluation. He is in full understanding and in agreement with the plan, and all of his questions were answered. Avoid exacerbating activities, ice for20 min as needed for pain and swelling. SHRUTI Buitrago MD ENTICESHIP CONSULTANT documented in this encounter Plan of Treatment Not on file documented as of this encounter Procedures Procedure Name Priority Date/Time Associated Diagnosis Comments XR ELBOW RIGHT 3 OR MORE VIEWS Schedule Routine, Read Routine (OP Routine) 07/01/2018 9:53 AM APPRENTICESHIP CONSULTANT Olecranon bursitis of right elbow documented in this encounter Results * XR Elbow Right 3+ View (07/01/2018 9:53 AM APPRENTICESHIP CONSULTANT) Anatomical Region Laterality Modality Upper Extremities, Elbow Right Radiogr aphic Imaging Narrative 07/01/2018 10:39 AM APPRENTICESHIP CONSULTANT Upon my review of the images, negative for fracture or dislocation. us Sandhya Boyle MD IMG XR PROCEDURES Cecilia l Result documented in this encounter Visit Diagnoses Diagnosis Olecranon bursitis of right elbow- Primary Medial epicondylitis, left documented in this encounter Historical Medications * This list may reflect changes made after this encounter. ALPRAZolam (XANAX) 0.25 mg tabletIndications :anxiety Take 1 tablet (0.25 mg total) by mouth nightly as needed for sleep 1 06/27/2018 09/12/2022 added in this encounter Care Teams It Administrative Assistant Relationship Specialty Start Date End Date Mick Flowers MD PCP - General 05/14/17 documented as of this encounter
--- OUTSIDE RECORDS SUMMARY | 2024-06-29 00:33 | XMS_ITS | Encounter Summary ---
Author Organization [facility] Address [address] [place] [address] Care Team Providers Care Tilting Saw Operator Name Role Phone Mick Flowers MD Primary Care Provider [phone] Encounter Details Date Type Department Care Team (Latest Contact Info) Description 11/05/2018 Telephone Urology Nikky Macias RN Social History Tobacco Use Types Packs/Day Years Used Date Smoking Tobacco: Never Smokeless Tobacco: Never Alcohol Use Standard Drinks/Week Comments Yes 21 (1 standard drink = 0.6 oz pu re alcohol) Sex and Gender Information Value Date Recorded Sex Assigned at Not on file Legal Sex Male 3:12 AM INSPECTION SUPERVISOR Gender Identity Not on file Sexual Orientation Not on file documented as of this encounter Miscellaneous Notes * Telephone Encounter - Nikky Macias RN - 11/05/2018 9:47 AM CDT Follow-up call outpatient procedure with Dr Lopez on 11/04/18. I spoke to pt. He is feeling great. No issues overnight. Minimal blood in the urine. No fevers or N/V. Advised pt to call back if any issues arises. Pt verbalized understanding. JSheets RN, BSN documented in this encounter Plan of Treatment Not on file documented as of this encounter Visit Diagnoses Not on filedocumented in this encounter Care Teams Tilting Saw Operator Relationship Specialty Start Date End Date Mick Flowers MD PCP - General 05/14/17 documented as of this encounter
--- OUTSIDE RECORDS SUMMARY | 2024-06-29 00:33 | XMS_ITS | Encounter Summary ---
Author Organization [facility] Address [address] [place] [address] Phone Care Team Providers Care Clinique Counter Manager Name Role Phone Mick Flowers MD Primary Care Provider [phone] Encounter Details Date Type Department Care Team (Late st Contact Info) Description 03/29/2018 Telephone [facility] Beverley Israel Social History Tobacco Use Types Packs/Day Years Used Date Smoking Tobacco: Never Assessed Sex and Gender Information Value Date Recorded Sex Assigned at Not on file Legal Sex Male 3:12 AM V BELT SKIVER Gender Identity Not on file Sexual Orientation Not on file documented as of this encounter Miscellaneous Notes * Telephone Encounter - Beverley Israel - 03/29/2018 4:48 PM CDT Pre-D per Fabienne @ [facility] @ [phone] patient has an auth # [id number]. Dates 09/03/17-08/16/18. 4 times a year. The patient is good for the 05/06/18 surgery. He will need a new Auth after this treatment- LKN 03/29/18 documented in this encounter Plan of Treatment Not on file documented as of this encounter Visit Diagnoses Not on filedocumented in this encounter Care Teams Clinique Counter Manager Relationship Specialty Start Date End Date Mick Flowers MD PCP - General 05/14/17 documented as of this encounter
--- OUTSIDE RECORDS SUMMARY | 2024-06-29 00:33 | XMS_ITS | Encounter Summary ---
Author Organization [facility] Address [address] [place] [address] Phone Care Team Providers Care Drilling Engineer Name Role Phone Mick Flowers MD Primary Care Provider [phone] Reason for Visit * Neurology (Routine) - Closed Specialty Diagnoses / Procedures Referred By Contac t Referred To Contact Neurology Diagnoses follow up Procedures RETURN Mick Flowers MD Phone: tel: fax: Cherry Minor MD [address] [place] [address] Phone: tel: fax: Referral ID Status Reason Start Date Expiration Date Visits Re quested Visits Authorized [id number] Closed 10/08/2018 04/18/2020 1 1 Encounter Details Date Type Department Care Team (Late st Contact Info) Description 10/08/2018 9:00 AM CDT Office Visit [facility] Multiple Sclerosis [address] [place] [phone] Cherry Minor MD [address] [place] [address] Multiple sclerosis (CMS/HCC) (Primary Dx); Neurogenic bladder; Abnormal gait Social History Tobacco Use Types Packs/Day Years Used Date Smoking Tobacco: Never Smokeless Tobacco: Never Alcohol Use Standard Drinks/Week Comments Yes 21 (1 standard drink = 0.6 oz pu re alcohol) Sex and Gender Information Value Date Recorded Sex Assigned at Not on file 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 Gender Identity Not on file Sexual Orientation Not on file documented as of this encounter Last Filed Vital Signs Vital Sign Reading Time Taken Comments Blood Pressure 140/88 10/08/2018 8:23 AM CDT Pulse 81 10/08/2018 8:23 AM CDT Temperature - - Respiratory Rate - - Oxygen Saturation - - Inhaled Oxygen Concentration - - Weight 82.3 kg (181 lb 6.4 oz) 10/08/2018 8:23 A M CDT Height 177.8 cm (5' 10 ) 10/08/2018 8:23 AM CDT Body Mass Index 26.03 10/08/2018 8:23 AM CDT documented in this encounter Patient Instructions * Patient Instructions* Cherry Minor MD - 10/08/2018 9:00 AM CDT Nice to see you. Your neuro exam today was STABLE! I do not see any huge differences. We might try some of the following as trials: Trial of baclofen at 5-20mg after work. Ttry first in evening due to the fact that it can be sedating. It lasts about 8 hrs. If it helps call back and ask for more. If this doesn't help we could alsotry tizanidine. Try (at a different time) stopping the AMpyra to see if you miss it. Leave a week between each medication change, so that you can tell which medication change is causing symptom changes. We briefly discussed today OCREVUS, which is currently the only FDA-approved medication that changes the course of Primary progressive MS for the better. Disease-modifying therapies Please email me in ~ 1 week, if you don't hear from me about study MRIs. I'd like to do standard clinical MRIs again, especially spinal cord. I will delay this until we decide about whether you should try OCREVUS, or not. (after we check on the study MRIs and how that data over time looked.) Please come back in 6months documented in this encounter Progress Notes * Cherry Minor MD - 10/08/2018 9:00 AM CDT Patient Name: MARITA EMERY Medical Record Number (MRN): [id number] Date of (): 1965 Encounter Date: 10/08/2018 Chief Complaint Marita Emery is a 53 y.o. male seen today for MS follow up. Pt was last seen on 04-02-2017 in the [facility] project, representing the PPMS group. Pt is on no DMT. The last time I saw him, in the study, the patient had no neurologist. Pt feels he is mostly stable. 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 Does BOTOX every [address] Keyla Lopez. Likes this a lot, although a pain to do the procedure - he must spend 1/2 day. He is not sure if the Ampyra generic he takes is helping. I suggested that he stop it for about a week to see how he does on that. He feels like his walking is worse. No falls. Can do power walking. Right calf raises are weaker than left. Works out 3-4 days/ week. Plan was: Continue in the [facility] longitudinal study. 1. I asked that he add OTC vitamin D to his med regimen, at approximately 2,000 - 3,000 IU/day as this may be beneficial to his MS. 2. He is on no disease-modifying therapy for MS at this point. There is only one FDA-approved DMT for PPMS, which is ocrelizumab - a B lymphocyte depleting monoclonal antibody. He woudl be a candidate for this, although the data in my view was not overly spectacular. We only discussed this in passing today. I will see him again in ~ 9 months in this study, and we may re-visit this option. 3. RTC 9 months [facility] - he is on the PORTAL and I asked that he communicate with me via this to let me know what happens with the Ampyra hiatus. 3. Will ask my racing secretary and handicapper to contact his PMD, Dr. Flowers's office re: any recent lab work. Results: Last Labs: Not sure if he had Vit D done recently. Will get recent labwork from his PCP (have askedNett to obtain) Last MRI: NO recent lcinical MRIs at all. HPI Mr. Emery is a former [place] worker in [employer] and has lived in [place], [place]. He is now 53yo, and is Rt handed. 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 He is on Ampyra 10 mg BID for gait; but no disease- modifying therapy. Has had MS since 1989 (age 24). First symptom was bladder related. No Family History of MS (3 children - college age). Took 6 months to figure out the diagnosis. Diagnosis: LP (abnormal), MRI. Diagnosis made when in [employer]. 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 MS for >25 years. In fact, pt states his first MS doctor was Dr Usman Rosenbaum. He was a former patient of Dr. Betzaida Warren. Pt reports only a slowly downhill course. He has had some slow downhill progression of worsening vision OD. Has not ever taken baclofen or tizanidine. Leg dragging got better since on Ampyra. He is in an MRI study; had an MRI done in 2014 and is scheduled for the next MRI 09/02/2015. The brain MRIs are done w/o contrast. He doesn't report any new findings. He now is on bladder botox, and does ISC multiple (~ 15x) X/day. No bowel issues. Does have sexual dysfunction and uses EDEX for this. Followed by Dr. Juice Lopez for these issues (bladder & sexual dysfunction). No depression and denies cognitive problems or fatigue No Known Allergies Current Outpatient Medications: ??? ALPRAZolam (XANAX) 0.25 mg tablet, TK 2 TS PO QPM FOR SLEEP, Disp: , Rfl: 1 ??? atorvastatin (LIPITOR) 20 mg tablet, Take 20 mg by mouth daily., Disp: , Rfl: ??? furosemide (LASIX) 20 mg tablet, TK 1 T PO QAM, Disp: , Rfl: 0 ??? losartan (COZAAR) 100 mg tablet, , Disp: , Rfl: ??? POTASSIUM CHLORIDE ER 20 mEq CR tablet, TK 1 T PO D, Disp: , Rfl: 5 ??? ALPRAZolam (XANAX) 0.5 mg tablet, TK 1 T PO TID PRN, Disp: , Rfl: 0 ??? baclofen (LIORESAL) 10 mg tablet, 1-2 tablets a day, Disp: 120 tablet, Rfl: 0 ??? dalfampridine (AMPYRA) 10 mg tablet extended release 12 hr, Take 1 tablet (10 mg total) by mouth 2 (two) times a day, Disp: 60 tablet, Rfl: 4 ??? felodipine (PLENDIL) 5 mg 24 hr tablet, daily., Disp: , Rfl: Patient Active Problem List Diagnosis ??? Neurogenic bladder ??? Abnormal gait ??? High risk medication use ??? Hypercholesterolemia ??? Primary insomnia ??? Multiple sclerosis (CMS/HCC) ??? Penile discharge ??? Urethral stricture ??? Urinary tract infection ??? OAB (overactive bladder) Past Medical History: Diagnosis Date ??? Hypertension Hypertension ??? Multiple sclerosis (CMS/HCC) Multiple Sclerosis No past surgical history on file. Family History Problem Relation Age of Onset ??? Multiple sclerosis Other Family history of Multiple sclerosis; ??? Hypertension Other Family history of Hypertension; ??? Melanoma Mother Family history of malignant melanoma - (Added by TW Conv) Social History Tobacco Use ??? Smoking status: Never Smoker ??? Smokeless tobacco: Never Used Substance Use Topics ??? Alcohol use: Yes Alcohol/week: 12.6 oz Types: 21 Glasses of wine per week ??? Drug use: No Vital Signs (in Jun, his BP was quite high) BP 140/88 (BP Location: Right arm, Patient Position: Sitting) Pulse 81 Ht 177.8 cm (5' 10 ) Wt 82.3 kg (181 lb 6.4 oz) BMI 26.03 kg/m?? Review of Systems A 12 point review of systems has been performed by the patient and has been reviewed with me duringthis visit. See scanned sheet. Exam Neurologic Exam Aid: none General: MARITA EMERY is a [...] Motor Examination: In UEs, tone is normal bilaterally. In LEs, tone is not normal. Has [...] is normal. Rapid alternating movements are normal. [id number] is normal. Rhythmic toe tapping - normal. Ambulation: The patient is able to walk on his heels. The patient is able to walk on his toes. Tandem gait is normal; 10 steps. Hops 10 times on right foot. Hops 10 times on left foot. Has more difficulty per his report hopping on [...] 3.98 sec (no assist). So, no worsening. OCT - mild temporal thinning OD - had this last time, a bit worse today compared with 2017. Very minimal change, however. EDSS: 4.0 based on bladder Counseling and Education We discussed the pros/cons of the B-cell depleting monoclonal antibodies (Abs), including ocrelizumab (Ocrevus). These are IV infusions performed every 6 months at a certified infusion center. These monoclonal antibodies are very similar; ocrelizumab is fully humanized monoclonal Ab. Ocrelizumab has been approved for [...] they develop any unusual or prolonged infections. We will not continue to prescribe these drugs for patients who are not compliant with required monitoring. Assessment/Plan Diagnosis Plan 1. Multiple sclerosis (CMS/HCC) 2. Neurogenic bladder 3. Abnormal gait Assessment PPMS. On no DMT currently My neuro Exam is stable. Unclear if stable, or slightly worse in terms of optic nerve (RNFL on OCT, see above) Also would be helpful to find out how his data is from the [facility] study was over time. I will check Plan *see instructions to Mr. Emery below Patient Instructions Nice to see you. Your neuro exam today was STABLE! I do not see any huge differences. We might try some of the following as trials: Trial of baclofen at 5-20mg after work. Ttry first in evening due to the fact that it can be sedating. It lasts about 8 hrs. If it helps call back and ask for more. If this doesn't help we could alsotry tizanidine. Try (at a different time) stopping the AMpyra to see if you miss it. Leave a week between each medication change, so that you can tell which medication change is causing symptom changes. We briefly discussed today OCREVUS, which is currently the only FDA-approved medication that changes the course of Primary progressive MS for the better. Disease-modifying therapies Please email me in ~ 1 week, if you don't hear from me about study MRIs. I'd like to do standard clinical MRIs again, especially spinal cord. I will delay this until we decide about whether you should try OCREVUS, or not. (after we check on the study MRIs and how that data over time looked.) Please come back in 6months Some portions of this note were copied forward from our previous note dated 04-02-17, confirmed today at this visit and revised as appropriate. 10/08/2018 . MS Attending note: Attending was with patient from 9:20m to 10:30am (minus 20 minutes seen a patient with Dr Hernández). >50% of the time was spent counseling and/or coordinating care as per above note. Discussion and decision making was of high-complexity due to the patient's high risk condition, multiple co-morbidities, neuropsychological co-morbidities, cognitive problems, and/or multiple sites of involved disability. The recommended medications are potentially of high risk consequence in theirside effects. Cherry Minor MD Professor of Neurology [facility] ; documented in this encounter Plan of Treatment Not on file documented as of this encounter Visit Diagnoses Diagnosis Multiple sclerosis (HCC)- Primary Multiple sclerosis Neurogenic bladder Neurogenic bladder, NOS Abnormal gait Abnormality of gait documented in this encounter Care Teams Drilling Engineer Relationship Specialty Start Date End Date Mick Flowers MD PCP - General 05/14/17 documented as of this encounter
--- OUTSIDE RECORDS SUMMARY | 2024-06-29 00:33 | XMS_ITS | Encounter Summary ---
Author Organization [facility] Address [address] [place] [address] Phone Care Team Providers Care Data Entry Operator Name Role Phone Mick Flowers MD Primary Care Provider [phone] Encounter Details Date Type Department Care Team (Late st Contact Info) Description 05/20/2018 Orders Only [facility] Multiple Sclerosis [address] [place] [address] [place] [id number] Cherry Minor MD [address] [place] [address] Social History Tobacco Use Types Packs/Day Years Used Date Smoking Tobacco: Never Smokeless Tobacco: Never Alcohol Use Standard Drinks/Week Comments Yes 21 (1 standard drink = 0.6 oz pu re alcohol) Sex and Gender Information Value Date Recorded Sex Assigned at Not on file 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 60 tablet 4 05/20/2018 05/21/2018 documented in this encounter Plan of Treatment Not on file documented as of this encounter Visit Diagnoses Not on filedocumented in this encounter Discontinued Medications Medication Sig Discontinue Reason Start Date End Da te AMPYRA 10 mg tablet extended release 12 hr TAKE 1 TABLET BY MOUTH TWICE A DAY Reorder 01/04/2018 05/20/2018 documented as of this encounter Care Teams Data Entry Operator Relationship Specialty Start Date End Date Mick Flowers MD PCP - General 05/14/17 documented as of this encounter
--- OUTSIDE RECORDS SUMMARY | 2024-06-29 00:33 | XMS_ITS | Encounter Summary ---
Author Organization [facility] Healthcare Address [address] [place] [address] Care Team Providers Care Morning Caregiver Name Role Phone Mick Flowers MD Primary Care Provider [phone] Encounter Details Date Type Department Care Team (Late st Contact Info) Description 11/04/2018 5:28 AM CDT - 11/04/2018 9:15 AM CDT Hospital Encounter [facility] Operating Room [address] [place] [id number] Marquis Lopez MD [address] [facility] [address] [place] [address] Discharge Disposition: Discharge to home or self care Social History Tobacco Use Types Packs/Day Years Used Date Smoking Tobacco: Never Smokeless Tobacco: Never Alcohol Use Standard Drinks/Week Comments Yes 21 (1 standard drink = 0.6 oz pu re alcohol) Sex and Gender Information Value Date Recorded Sex Assigned at Not on file Legal Sex Male 3:12 AM [employer] Gender Identity Not on file Sexual Orientation Not on file documented as of this encounter Last Filed Vital Signs Vital Sign Reading Time Taken Comments Blood Pressure 105/79 11/04/2018 8:50 AM CDT Pulse 75 11/04/2018 9:00 AM CDT Temperature 36.2 ??C (97.2 ??F) 11/04/2018 8:50 AM CD T Respiratory Rate 14 11/04/2018 9:00 AM CDT Oxygen Saturation 98% 11/04/2018 9:00 AM CDT Inhaled Oxygen Concentration - - Weight - - Height - - Body Mass Index - - documented in this encounter Discharge Instructions * Attachments The following attachments cannot be sent through Care Everywhere. * Cystoscopy (Discharge Care) ([place]) * General Anesthesia (Discharge Care) ([place]) * [facility] PATHWAY TO EXCELLENT CARE AFTER SURGERY documented in this encounter Medications at Time of Discharge felodipine (PLENDIL) 5 mg 24 hr tabletIndications :hypertension Take 1 tablet (5 mg total) by mouth 2 (two) times a day 07/19/2007 hydroCHLOROthiazi de (HYDRODIURIL) 25 mg tabletIndications :hypertension Take 1 tablet (25 mg total) by mouth every morning ALPRAZolam (XANAX) 0.25 mg tabletIndications :anxiety Take [...] documented in this encounter H&P Notes * Usman Gamez MD - 11/04/2018 7:01 AM CDT I have reviewed the H&P, examined the patient, and endorse the findings as written. Plan of Care : Based on the above findings, I consider Doc Emery to be an acceptable risk for : Procedure(s): INJECTION BOTOX 300 UNITS INTO BLADDER CYSTOSCOPY Cosigned by Marquis Lopez MD at 11/13/2018 9:46 AM CDT Source Note - Belle Fournier MD - 10/21/2018 9:32 AM CDT Anesthesia Evaluation Doc Emery is a 53 y.o. male Procedure(s): INJECTION BOTOX 300 UNITS INTO BLADDER CYSTOSCOPY Patient Active Problem List Diagnosis ??? [...] receives every 6 months No Known Allergies HOME MEDICATIONS : ALPRAZolam (XANAX) 0.25 mg tablet atorvastatin (LIPITOR) 20 mg tablet felodipine (PLENDIL) 5 mg 24 hr tablet hydroCHLOROthiazide (HYDRODIURIL) 25 mg tablet losartan (COZAAR) 100 mg tablet POTASSIUM CHLORIDE ER 20 mEq CR tablet furosemide (LASIX) 20 mg tablet No current facility-administered medications for this visit. No current outpatient medications on file. Facility-Administered Medications Ordered in Other Visits: ??? ceFAZolin (ANCEF) 2,000 mg/20 mL in sterile water (premix) 2,000 mg, 2,000 mg, intravenous, Once ??? Lactated Ringer's (LR) infusion, 30 mL/hr, intravenous, Continuous, Last Rate: 30 mL/hr at 11/04/18 0617, 30 mL/hr at 11/04/18 0617 ??? sodium chloride 0.9% flush 0.5-20 mL, 0.5-20 mL, intra-catheter, PRN Social History Tobacco Use Smoking Status Never Smoker Smokeless Tobacco Never Used Substance and Sexual Activity Alcohol Use Yes ??? Alcohol/week: 12.6 oz ??? Types: 21 Glasses of wine per week Substance and Sexual Activity Drug Use No Family History Problem Relation Age of Onset ??? Multiple sclerosis Other Family history of Multiple sclerosis; ??? Hypertension Other Family history of Hypertension; ??? Melanoma Mother Family history of malignant melanoma - (Added by TW Conv) ??? Anesthesia problems Neg Hx PAT Physical Exam Airway Exam: Mallampati: II Cervical ROM: FROM TM distance: 3.5 Cardiovascular Exam: Rate: regular Rhythm: regular Pulmonary Exam: LCTA, bilat EENT Exam: trachea midline Dental Exam: Appears intact Abdominal exam: Abdomen is soft. Current state: Patient's current state is cooperative and interactive. There were no vitals filed for this [...] labs within last 720 hours. BMP Glucose: 10/21/2018: 92 mg/dL Calcium: 10/21/2018: 10.6 mg/dL* Sodium: 10/21/2018: 140 mmol/L Potassium: 10/21/2018: 4.3 mmol/L CO2: 10/21/2018: 28 mmol/L Chloride: 10/21/2018: 101 mmol/L BUN: 10/21/2018: 12 mg/dL Creatinine: 10/21/2018: 0.87 mg/dL DOS Physical Exam Medical history, medications, and [...] is Outpatient. Informed Consent: Discussed plan with FIRST AID TEACHER. Anesthesia plan and risks discussed with patient and spouse. Consent and Attending signature: I and/or my designee have discussed the anesthesia plan, benefits, possible alternatives, parental presence at time of induction (if indicated), and clinically relevant risks that may include dental injury, unintentional awareness, and/or other complications. The patient and/or parent/legal guardian understand, and agree to proceed. All questions answered. Center for Preoperative Assessment and Planning Preoperative Evaluation Record [facility] at [facility] ([facility]) Date: 10/21/18 Anesthesia Evaluation Doc Emery is a 53 y.o. male Procedure(s): INJECTION BOTOX 300 UNITS INTO BLADDER CYSTOSCOPY Pre-Op Diagnosis Codes: * Neurogenic bladder [N31.9] * OAB (overactive bladder) [N32.81] HISTORY HPI Doc Emery is a 53 y.o. male who is being evaluated prior to undergoing INJECTION BOTOX 300 UNITS INTO BLADDER CYSTOSCOPY for overactive bladder. Past Medical History Information obtained from: patient and chart. Neurological + Psychiatric history - anxiety + Neuromuscular disease (overactive bladder) - multiple sclerosis. Pertinent negatives: seizures; CVA/stroke; TIA; CEA; ICA stenosis; dementia/mild cognitive impairment and carotid artery stent Cardiovascular + Hypertension + Hyperlipidemia Pertinent negatives: CAD ; HI ; CABG ; systolic/diastolic dysfunction w/o CHF ; valvular heart disease; valve replacement; atrial fibrillation; arrhythmia; pacemaker/ICD; PVD; DVT/PE; negative for CHF; drug-eluting stent(s); bare metal stent(s); unknown stent(s) type and coronary angioplasty Respiratory Pertinent negatives: COPD; asthma; sleep apnea (ROSALINDA); pulmonary hypertension; no O2 use outside thehospital and non-smoker Hepatic / Heme Pertinent negatives: liver disease; history of anemia; history of thrombocytopenia and history of Lexy positive Gastrointestinal Pertinent negatives: GERD and hiatal hernia Renal / Pertinent negatives: renal disease; dialysis and nephrolithiasis Musculoskeletal/Pain Pertinent negatives: chronic pain; chronic opioid use; previous treatment for opioid use disorder; osteoarthritis and headaches Endocrine / Other + Infectious disease (in past) - UTI. Pertinent negatives: diabetes mellitus; thyroid disease; obesity (BMI >30); cancer history; rheumatological disease; transplanted organ; eye disorder and pancreatitis Functional Capacity Functional capacity: 6-10 METs Comments: Works out 5 days/week for 1 hour. Patient would be able to climb 2 flights of stairs at moderate pace without SOB or CP. Review of Systems + vision loss (wears corrective lenses) Pertinent negatives: productive cough; wheezing; SOB; recent cold/flu; fever; chest pain; palpitations; orthopnea; pedal edema; PND; Sickle Cell disease/trait; previous transfusion; transfusion reaction; melena/hematochezia; easy bruising; bleeding problems; syncope; dizziness; muscle weakness; chronic pain; numbness/tingling; hard of hearing; heartburn; nausea; dysphagia; diarrhea; dentures/partials; chipped/loose teeth; abdominal pain; diaphoresis and no unexpected weight change PAT Summary and Plans Additional comments: Doc Emery is a 53 y.o. male who is being evaluated prior to undergoing a low cardiac risk surgery. Revised Cardiac Risk Index factors are (none) for a total RCRI of 0 out of6. Functional capacity is 6-10 METs. Obstructive sleep apnea (ROSALINDA) screening status is STOP-Bang=3 suggesting moderate risk for ROSALINDA, bicarbonate value pending.The patient is at elevated risk for obstructive sleep apnea (ROSALINDA) per STOP-BANG screening questionnaire results. Patient informed of the possibility that they have undiagnosed ROSALINDA, which may increase their risk for perioperative respiratory events. Patient also informed of thepossible long-term health problems associated with ROSALINDA. Because we do not feel that preoperative ROSALINDA testing is likely to outweigh the downsides of delaying surgery, we have recommended that the patient talk to their primary doctor or other clinician after surgery about getting tested for ROSALINDA. Blood bank needs for day of procedure: No type and screen needed Pending labs/tests include: BMP Urine culture Preoperative evaluation performed by Janay Rajput NP on 10/21/18 at 10:07 AM. . Follow up note Labs reviewed and are significant for a total CO2 of 28 . With a STOP-Bang score of 3-4, this qualifies the patient as high risk for severe ROSALINDA. ROSALINDA order set initiated. Otherwise WNL. Urine culture is pending. Follow-up completed by: Aranza Brennan NP on 10/22/18 at 10:37 AM Follow up note Urine culture negative. CPAP assessment complete. Follow-up completed by: Lorena Navarrete NP on 10/23/18 at 9:57 AM Patient Active Problem List Diagnosis ??? Neurogenic [...] Known Allergies HOME MEDICATIONS : ALPRAZolam (XANAX) 0.25 mg tablet atorvastatin (LIPITOR) 20 mg tablet felodipine (PLENDIL) 5 mg 24 hr tablet furosemide (LASIX) 20 mg tablet losartan (COZAAR) 100 mg tablet POTASSIUM CHLORIDE ER 20 mEq CR tablet ALPRAZolam (XANAX) 0.5 mg tablet baclofen (LIORESAL) 10 mg tablet dalfampridine (AMPYRA) 10 mg tablet extended release 12 hr Current Outpatient Medications: ??? ALPRAZolam (XANAX) 0.25 mg tablet ??? atorvastatin (LIPITOR) 20 mg tablet ??? felodipine (PLENDIL) 5 mg 24 hr tablet ??? furosemide (LASIX) 20 mg tablet ??? losartan (COZAAR) 100 mg tablet ??? POTASSIUM CHLORIDE ER 20 mEq CR tablet Social History Tobacco Use Smoking Status Never Smoker Smokeless Tobacco Never Used Substance and Sexual Activity Alcohol Use Yes ??? Alcohol/week: 12.6 oz ??? Types: 21 Glasses of wine per week Substance and Sexual Activity Drug Use No Family History Problem Relation Age of Onset ??? Multiple sclerosis Other Family history of Multiple sclerosis; ??? Hypertension Other Family history of Hypertension; ??? Melanoma Mother Family history of malignant melanoma - (Added by TW Conv) PAT Physical Exam Airway Exam: Mallampati: I Cervical ROM: FROM TM distance: 3 Cardiovascular Exam: Rate: regular Rhythm: regular Negative for Murmur No extra heart sounds appreciated Negative for peripheral edema Pulmonary Exam: LCTA, bilat EENT Exam: trachea midline Dental Exam: Appears intact Skin Exam: Skin is warm and dry. Abdominal exam: Abdomen is soft. Bowel sounds are present. Current state: Patient's current state is cooperative and interactive. Vitals: 10/21/18 0915 10/21/18 0920 BP: 135/95 123/78 Pulse: 104 SpO2: 96% PT: No results found for requested labs [...] for requested labs within last 720 hours. STOP-Bang Total Score: 3 Romain index score: 100 DOS Physical Exam Medical history, medications, and allergies reviewed. Attestation: I endorse the findings of the anesthesia pre-evaluation assessment dated: 10/21/2018. Airway Exam: Mallampati: II Cervical ROM: FROM TM distance: 3 Cardiovascular Exam: Rate: regular Rhythm: regular Pulmonary Exam: LCTA, bilat EENT Exam: trachea midline Dental Exam: Appears intact Skin Exam: Skin is warm. Turgor is normal. Abdominal Exam: Abdomen is soft. Current state: Patient's current state is cooperative. Anesthesia Plan ASA 2 My patient is approved for the Anesthesia Controlled Medication protocol when under care of a FIRST AID TEACHER Planned anesthesia: MAC and general Team communication plan: LMA Induction: Induction: intravenous. Postoperative Plan: Postoperative administration opioids intended. No postoperative mechanical ventilation intended. Patient's planned disposition post procedure is Outpatient. Planned trial extubation. Informed Consent: Discussed plan with FIRST AID TEACHER. Anesthesia plan and risks discussed with patient [...] Op Note - Marquis Lopez MD - 11/04/2018 7:30 AM CDT Date of Surgery: November 04, 2018 Preoperative diagnosis: Neurogenic bladder, urinary urge incontinence from neurogenic bladder Post-operative diagnosis: Neurogenic bladder, urinary urge incontinence from neurogenic bladder Procedure: Cystoscopy, injection of 300 units of onabotulinumtoxinA (Botox) into the bladder Surgeon: Marquis Lopez MD Patrol Judge: Usman Gamez MD Anesthesia: General Complications: None Estimated blood loss: None Specimen: None Indication for surgery: Patient has neurogenic bladder, and urinary incontinence from neurogenic bladder, and is here for Botox injection into the bladder to treat urinary incontinence. I have discussed with patient in detail all risks, benefits and alternatives to the procedure. All questions wereanswered. The patient wishes to proceed with the [...] Op Note - Marquis Lopez MD - 11/04/2018 7:30 AM CDT Operative Progress Note Surgical Team: Surgeon(s) and Role: * Marquis Lopez MD - Primary * Usman Gamez MD - Resident - Assisting Anesthesiologist: Belle Fournier MD FIRST AID TEACHER: Brenda Dumont CRNA Employee Communications Specialist: Anjana Zaragoza RN Scrub: Taya Peterson RN DATE OF SURGERY : 11/04/2018 Preoperative Diagnosis: Pre-op Diagnosis * Neurogenic bladder [N31.9] * OAB (overactive bladder) [N32.81] Postoperative Diagnosis: Post-op Diagnosis * Neurogenic bladder [N31.9] * OAB (overactive bladder) [N32.81] Procedure(s): Procedure(s) (LRB): INJECTION BOTOX 300 UNITS INTO BLADDER (N/A) CYSTOSCOPY (N/A) Operative Findings: Abdominal bladder mucosa Estimated Blood Loss: No blood loss documented. Intraoperative Fluids: See anesthesia for mls Specimens: No specimen collected in procedure Implants: Nothing was implanted during the procedure Blood/Blood Products Transfused: 0 mls Complications: None Condition on Discharge from the operating room was stable Juice Lopez MD Date: 11/05/2018 Time: 7:57 PM TEACHING ATTESTATION : I was present and directly participated in the entire procedure (including opening and closing). documented in this encounter Plan of Treatment Not on file documented as of this encounter Procedures Procedure Name Priority Date/Time Associated Diagnosis Comments CYSTOSCOPY 11/04/2018 7:28 AM CDT Neurogenic bladder OAB (overactive bladder) Case Notes WAITING ON AUTH INFORMATION. 10/29/2018 AUTH INFO ENTERED INTO SOARIAN 10/29/2018 Special Needs 300 units of Botox to be mixed with 30 cc normal saline in OR; Wilver needle for injection INJECTION BOTOX 11/04/2018 7:28 AM CDT Neurogenic bladder OAB (overactive bladder) Case Notes WAITING ON AUTH INFORMATION. 10/29/2018 AUTH INFO ENTERED INTO SOARIAN 10/29/2018 Special Needs 300 units of Botox to [...] infusion 30 mL/hr, intravenous, Continuous, Starting on Sun11/04/18 at 0630, Pre-Op New Bag 11/04/2018 6:17 AM CDT 30 mL/hr 30 mL/h r sodium chloride 0.9% flush 0.5-20 mL 0.5-20 mL, intra-catheter, As needed, line care, Starting on Sun11/04/18 at 0545, Pre-Op, Flush volume based on line type and size. Flush before and after each use. documented in this encounter Discontinued Medications Medication Sig Discontinue Reason Start Date End Da te furosemide (LASIX) 20 mg tablet TK 1 T PO QAM-htn 04/23/2018 11/04/2018 documented as of this encounter Historical Medications * This list may reflect changes made after this encounter. hydroCHLOROthiazi de (HYDRODIURIL) 25 mg tabletIndications :hypertension Take 1 tablet (25 mg total) by mouth every morning added in this encounter Active and Recently Administered Medications Times are shown in CDT. Scheduled Medication Order 11/02/2018 11/03/2018 11/04/2018 ceFAZolin (ANCEF) 2,000 mg/20 mL in sterile water (premix) 2,000 mg (COMPLETED) 2,000 mg, intravenous, at 400 mL/hr, Administer over 3 Minutes, Once, On Sun11/04/18 at 0630, For 1 dose, Pre-Op, Administer within 60 minutes of incision., Indications: Prophylaxis, Surgical 0742 (Given - Provid er: Brenda Dumont CRNA) sodium chloride 0.9% flush 0.5-20 mL 0.5-20 mL, intra-catheter, Every 8 hours scheduled, First dose on Sun11/04/18 at 0845, Pre-Op, Flush volume based on line type and size. 0845 (Due) Continuous Medication Order 11/02/2018 11/03/2018 11/04/2018 Lactated Ringer's (LR) infusion (CANCELED) 30 mL/hr, intravenous, Continuous, Starting on Sun11/04/18 at 0630, Pre-Op 0617 (New Bag - Prov ider: Georgia Ram RN) Lactated Ringer's (LR) infusion 30 mL/hr, intravenous, Continuous, Starting on Sun11/04/18 at 0845, Pre-Op 0845 (Due) PRN Medication Order 11/02/2018 11/03/2018 11/04/2018 diphenhydrAMINE (BENADRYL) injection 12.5 mg 12.5 mg, intravenous, Administer over 2 Minutes, Every 15 min PRN, itching, Starting on Sun11/04/18 at 0806, For 2 doses, Phase I, Max cumulative dose 50 mg., Indications: Itching fentaNYL (SUBLIMAZE) preservative free injection 50 mcg 50 mcg, intravenous, Once as needed, breakthrough pain, Starting on Sun11/04/18 at 0806, For 1 dose, Phase I, Administer for uncontrolled or increasing pain while in PACU only. Then proceed to PACU 1st line analgesic., Indications: Pain haloperidol (HALDOL) injection 1 mg 1 mg, intravenous, Administer over 5 Minutes, Once as needed, nausea, vomiting, Starting on Sun11/04/18 at 0806, For 1 dose, Phase I, If nausea/vomiting not relieved by ondansetron within 30 minutes or if ondansetron has been given within the last 6 hours. HYDROmorphone (DILAUDID) injection 0.2 mg 0.2 mg, intravenous, Administer over 2 Minutes, Every 10 min PRN, 1st line for pain, Starting on Sun11/04/18 at 0806, Phase I, Switch to 2nd line analgesic order if pain is uncontrolled or increasing after 2 doses. Notify Anesthesiologist if total PACU dose reaches 2 mg and pain score 5/10 or more., Indications: Pain HYDROmorphone (DILAUDID) injection 0.4 mg 0.4 mg, intravenous, Administer over 2 Minutes, Every 10 min PRN, 2nd line for pain, Starting on Sun11/04/18 at 0806, Phase I, May administer 10 mintes after 2nd dose of 1st line analgesic agent for uncontrolled or increasing pain. Revert to 1st line dose if POSS of 3. Notify Anesthesiologist if total PACU dose reaches 2 mg and pain score 5/10 or more., Indications: Pain meperidine (DEMEROL) preservative free injection 12.5 mg 12.5 mg, intravenous, Every 10 min PRN, shivering, Starting on Sun11/04/18 at 0806, For 2 doses, Phase I, Max cumulative dose 25 mg., Indications: Shivering naloxone (NARCAN) 0.4 mg/mL injection 0.04-0.4 mg 0.04-0.4 mg, intravenous, Once as needed, other, excessive sedation/respiratory depression, Starting on Sun11/04/18 at 0806, For 1 dose, Phase I, Dilute 0.4 [...] chloride 0.9% (CANCELED) As needed, Starting on Sun11/04/18 at 0753, Intra-Op 0753 (Canceled Entry - Provider: Usman Gamez MD)0801 (Given - Provider: Usman Gamez MD - Comment: 300 units with 30mL 0.9% NaCl) ondansetron (ZOFRAN) injection 4 mg 4 mg, intravenous, Administer over 2 Minutes, Once as needed, nausea, vomiting, Starting on Sun11/04/18 at 0806, For 1 dose, Phase I, Proceed to haloperidol if ondansetron has been given within the last 6 hours. sodium chloride 0.9 % irrigation (CANCELED) As needed, Starting on Sun11/04/18 at 0754, Intra-Op 0754 (Given - Provid er: Usman Gamez MD) sodium chloride 0.9% flush 0.5-20 mL 0.5-20 mL, intra-catheter, As needed, line care, Starting on Sun11/04/18 at 0545, Pre-Op, Flush volume based on line type and size. Flush before and after each use. sodium chloride 0.9% flush 0.5-20 mL 0.5-20 mL, intra-catheter, As needed, line care, Starting on Sun11/04/18 at 0806, Pre-Op, Flush volume based on line type and size. Flush before and after each use. documented in this encounter Orders Medications Ordered That Julio Cesar ht Not Have Been Administered Count Last Ordered Date First Ordered Date ceFAZolin (ANCEF) 2,000 mg/2 0 mL in sterile water (premix) 2,000 mg 1 11/04/2018 diphenhydrAMINE (BENADRYL) i njection 12.5 mg 1 11/04/2018 fentaNYL (SUBLIMAZE) preserv ative free injection 50 mcg 1 11/04/2018 haloperidol (HALDOL) injection 1 mg 1 11/04 HYDROmorphone (DILAUDID) injection 0.2 mg 1 11/04/2018 HYDROmorphone (DILAUDID) injection 0.4 mg 1 11/04/2018 Lactated Ringer's (LR) infusion 2 9 meperidine (DEMEROL) preserv ative free injection 12.5 mg 1 11/04/2018 naloxone (NARCAN) 0.4 mg/mL injection 0.04-0.4 mg 1 11/04/2018 onabotulinumtoxin A (botulin um toxin type A, BOTOX) 200 unit/20 mL in sodium chloride 0.9% 1 11/04/2018 ondansetron (ZOFRAN) injection 4 mg 1 11/04 sodium chloride 0.9 % irrigation 1 11/05/19 19 sodium chloride 0.9% flush 0.5-20 mL 3 10/23 Diet Count Last Ordered Date First Orde red Date ADULT DISCHARGE DIET 1 11/04/2018 Nursing Count Last Ordered Date First Orde red Date DISCHARGE ACTIVITY 1 11/04/2018 DISCHARGE CALL PROVIDER 9 11/04/2018 FOLLOW UP WITH PROVIDER 1 11/04/2018 documented in this encounter Care Teams Morning Caregiver Relationship Specialty Start Date End Date Mick Flowers MD PCP - General 05/14/17 documented as of this encounter
--- OUTSIDE RECORDS SUMMARY | 2024-06-29 00:33 | XMS_ITS | Encounter Summary ---
Author Organization [facility] Address [address] [place] [address] Phone Care Team Providers Care Personal Lines Sales Rep Name Role Phone Mick Flowers MD Primary Care Provider [phone] Encounter Details Date Type Department Care Team (Late st Contact Info) Description 04/29/2019 Orders Only [facility] Surgery [address] [place] [id number] Marquis Lopez MD [address] [facility] [address] [place] [address] Social History Tobacco Use Types Packs/Day Years Used Date Smoking Tobacco: Never Smokeless Tobacco: Never Alcohol Use Standard Drinks/Week Comments Yes 21 (1 standard drink = 0.6 oz pu re alcohol) Sex and Gender Information Value Date Recorded Sex Assigned at Not on file Legal Sex Male 3:12 AM GRADING MACHINE OPERATOR Gender Identity Not on file Sexual Orientation Not on file documented as of this encounter Plan of Treatment Not on file documented as of this encounter Procedures Procedure Name Priority Date/Time Associated Diagnosis Comments URINE CULTURE Routine 04/29/2019 10:13 AM GRADING MACHINE OPERATOR documented in this encounter Results * (ABNORMAL) Urine culture (04/29/2019 10:13 AM GRADING MACHINE OPERATOR) Urine culture SEE NOTE(A) [facility] Comment: ??CULTURE, URINE, ROUTINE ?MICRO NUMBER: ?[id number] ??TEST STATUS: ? FINAL ??SPECIMEN SOURCE: ?? URINE, CLEAN CATCH ??SPECIMEN QUALITY: ??ADEQUATE ??Result: ?50,000-100,000 CFU/mL of Acinetobacter junii ?A.junii ?INT ?? RAFFY ?? AMP/SULBACTAM ?S ? <=2 ?? CEFEPIME ? S ? <=1 ?? CEFTAZIDIME ?S ? 8 ?? CIPROFLOXACIN ?S ? 0.5 ?? GENTAMICIN ? S ? 2 ?? IMIPENEM ? S ? <=0.25 ?? LEVOFLOXACIN ? S ? 1 ?? PIP/TAZOBACTAM ? S ? <=4 ?? TOBRAMYCIN ? S ? 4 ?? TRIMETHOPRIM/SULFA ? S ? <=20 S=Susceptible ??I=Intermediate ??R=Resistant ??* = Not Tested NR = Not Reported ??NN = See Therapy Comments ? Your request to have a duplicate copy faxed has been acknowledged. ?Queued to: ??[id number] 04/29/2019 10:1 3 AM GRADING MACHINE OPERATOR 04/29/2019 10:14 AM GRADING MACHINE OPERATOR Narrative Resulting Agency Comment Performing Organization Information: ?Site ID: ?Name: Float: [facility] ?Address: [address] [id number] ?Director: Vianney Arciniega Marquis Lopez MD LAB MICROBIOLOGY - GENERAL ORD ERABLES Final Result [facility] [place] documented in this encounter Visit Diagnoses Not on filedocumented in this encounter Care Teams Personal Lines Sales Rep Relationship Specialty Start Date End Date Mick Flowers MD PCP - General 05/14/17 documented as of this encounter
--- OUTSIDE RECORDS SUMMARY | 2024-06-29 00:33 | XMS_ITS | Encounter Summary ---
Author Organization [facility] Healthcare Address [address] [place] [address] Care Team Providers Care Recovery Operator Name Role Phone Mick Flowers MD Primary Care Provider [phone] Encounter Details Date Type Department Care Team (Late st Contact Info) Description 11/04/2018 7:30 AM CDT - 11/04/2018 8:40 AM CDT Surgery [facility] [address] [place] [id number] Marquis Lopez MD [address] [facility] [address] [place] [address] INJECTION BOTOX 300 UNITS INTO BLADDER Surgery Details Date/Time Status Location OR Service Patient Class Case Cl ass Case Type Trauma Case? 11/04/2018 7:30 AM Posted [facility] OR POD 1 324 Urology Outpatient Elective Panel 1 Procedure LRB Anes Op Region Wound Class Comments INJECTION BOTOX 300 UNITS INTO BLADDER N/A General Face Class I - Clean CYSTOSCOPY N/A General Urethra Class II - [place] an Contaminated Surgeon Surgeon Role Service Panel Marquis Lopez MD Primary Urology 1 Usman Gamez MD Resident - Assisting Minor Pr ocedures 1 Case Notes WAITING ON AUTH INFORMATION. 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 * Cystoscopy (Discharge Care) (Albanian) * General Anesthesia (Discharge Care) (Albanian) * [facility] PATHWAY TO EXCELLENT CARE AFTER SURGERY documented [...] intravenous, Continuous, Last Rate: 30 mL/hr at 11/04/18616, 30 mL/hr at 11/04/18616 ??? sodium chloride 0.9% flush 0.5-20 mL, [...] is Outpatient. Informed Consent: Discussed plan with EDGE BURNISHER. Anesthesia plan and risks discussed with patient [...] Planning Preoperative Evaluation Record CPAP Clinic at [facility] ([facility]) Date: 10/21/18 Anesthesia Evaluation Doc Emery is [...] Hypertension + Hyperlipidemia Pertinent negatives: CAD ; AR ; CABG ; systolic/diastolic dysfunction w/o CHF [...] Medication protocol when under care of a EDGE BURNISHER Planned anesthesia: MAC and general Team communication plan: LMA Induction: Induction: intravenous. Postoperative Plan: Postoperative administration opioids intended. No postoperative mechanical ventilation intended. Patient's planned disposition post procedure is Outpatient. Planned trial extubation. Informed Consent: Discussed plan with EDGE BURNISHER. Anesthesia plan and risks discussed with patient [...] into the bladder Surgeon: Marquis Lopez MD Machine Baster: Usman Gamez MD Anesthesia: General Complications: None [...] Resident - Assisting Anesthesiologist: Belle Fournier MD EDGE BURNISHER: Brenda Dumont CRNA Scientific Software Engineer: Anjana Zaragoza RN Scrub: Taya Peterson RN [...] bladder Neurogenic bladder, NOS OAB (overactive bladder) Neurogenic [...] AM CDT 30 mL/hr 30 mL/h r onabotulinumtoxin A (botulinum toxin type A, BOTOX) 200 unit/20 mL in sodium chloride 0.9% As needed, Starting on Sun11/04/18 at 0753, Intra-Op Given 11/04/2018 8:01 AM CDT sodium chloride 0.9 % irrigation As needed, Starting on Sun11/04/18 at 0754, Intra-Op Given 11/04/2018 7:54 AM CDT 3,000 mL sodium chloride 0.9% flush 0.5-20 mL [...] 0.4 mg/mL injection 0.04-0.4 mg 1 11/04/2018 ondansetron (ZOFRAN) injection 4 mg 1 11/04 sodium chloride 0.9% flush 0.5-20 mL 3 10/23 Diet Count Last Ordered Date First Orde red Date ADULT DISCHARGE DIET 1 11/04/2018 Nursing Count Last Ordered Date First Orde red Date DISCHARGE ACTIVITY 1 11/04/2018 DISCHARGE CALL PROVIDER 9 11/04/2018 FOLLOW UP WITH PROVIDER 1 11/04/2018 documented in this encounter Care Teams Recovery Operator Relationship Specialty Start Date End Date Mick Floewrs MD PCP - General 05/14/17 documented as of this encounter
--- OUTSIDE RECORDS SUMMARY | 2024-06-29 00:33 | XMS_ITS | Encounter Summary ---
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
--- OUTSIDE RECORDS SUMMARY | 2024-06-29 00:33 | XMS_ITS | Encounter Summary ---
Author Organization [facility] Facility Care Team Providers Care Business Services Clerk Name Role Phone Mick Flowers MD Primary Care Provider [phone] Encounter Details Date Type Department Care Team (Late st Contact Info) Description 04/24/2016 4:30 PM CDT - 04/24/2016 11:59 PM T Hospital [facility] [address] [facility] [address] [place] [address] Social History Tobacco Use Types Packs/Day Years Used Date Smoking Tobacco: Never Assessed Sex and Gender Information Value Date Recorded Sex Assigned at Not on file 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
--- OUTSIDE RECORDS SUMMARY | 2024-06-29 00:33 | XMS_ITS | Encounter Summary ---
Author Organization [facility] Address [address] [place] [address] Phone Care Team Providers Care Coroner Name Role Phone Mick Flowers MD Primary Care Provider [phone] Encounter Details Date Type Department Care Team (Late st Contact Info) Description 05/02/2018 Telephone [facility] Surgery [address] [facility] [place] [id number] Marquis Lopez MD [address] [facility] [address] [place], [place] [id number] Social History Tobacco Use Types Packs/Day Years Used Date Smoking Tobacco: Never Assessed Sex and Gender Information Value Date Recorded Sex Assigned at Not on file Legal Sex Male 3:12 AM THRILL PERFORMER Gender Identity Not on file Sexual Orientation Not on file documented as of this encounter Miscellaneous Notes * Telephone Encounter - Terri Nicholas LPN - 05/02/2018 10:39 AM THRILL PERFORMER Phoned patient, L/M that an antibiotic has been sent to his pharmacy. He needs to start 3 days prior to his procedure. LL PERFORMER documented in this encounter Plan of Treatment Not on file documented as of this encounter Visit Diagnoses Not on filedocumented in this encounter Care Teams Coroner Relationship Specialty Start Date End Date Mick Flowers MD PCP - General 05/14/17 documented as of this encounter
--- OUTSIDE RECORDS SUMMARY | 2024-06-29 00:33 | XMS_ITS | Encounter Summary ---
Author Organization [facility] Address [address] [place] [address] Phone Care Team Providers Care Health Analytics Consultant Name Role Phone Mick Flowers MD Primary Care Provider [phone] Encounter Details Date Type Department Care Team (Late st Contact Info) Description 10/08/2018 Orders Only [facility] Multiple Sclerosis [address] [place] [address] [place] [address] Cherry Minor MD [address] [place] [address] Social History Tobacco Use Types Packs/Day Years Used Date Smoking Tobacco: Never Smokeless Tobacco: Never Alcohol Use Standard Drinks/Week Comments Yes 21 (1 standard drink = 0.6 oz pu re alcohol) Sex and Gender Information Value Date Recorded Sex Assigned at Not on file 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 Gender Identity Not on file Sexual Orientation Not on file documented as of this encounter Ordered Prescriptions Prescription Sig Dispense Quantity Refills Last Filled Start Date End Date dalfampridine (AMPYRA) 10 mg tablet extended release 12 hr Take 1 tablet (10 mg total) by mouth 2 (two) times a day 60 tablet 4 10/08/2018 9 baclofen (LIORESAL) 10 mg tablet 1-2 tablets a day 120 tablet 10/08/2018 9 documented in this encounter Plan of Treatment Not on file documented as of this encounter Visit Diagnoses Not on filedocumented in this encounter Discontinued Medications Medication Sig Discontinue Reason Start Date End Da te dalfampridine (AMPYRA) 10 mg tablet extended release 12 hr Take 1 tablet (10 mg total) by mouth 2 (two) times a day Reorder 09/04/2018 10/08/2018 documented as of this encounter Care Teams Health Analytics Consultant Relationship Specialty Start Date End Date Mick Flowers MD PCP - General 05/14/17 documented as of this encounter
--- OUTSIDE RECORDS SUMMARY | 2024-06-29 00:33 | XMS_ITS | Encounter Summary ---
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 Male 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 Gender Identity Not on file Sexual Orientation Not on file documented as of this encounter Miscellaneous Notes * Telephone Encounter - Beverley Israel - 02/13/2018 5:34 PM CDT Pre-D patient has a current auth for [id number] as out patient, Auth # Auth/order #[id number], requested additional units of 300 to be done- LKN 02/13/18 documented in this encounter Plan of Treatment Not on file documented as of this encounter Visit Diagnoses Not on filedocumented in this encounter Care Teams Production Engineer Relationship Specialty Start Date End Date Mick Flowers MD PCP - General 05/14/17 documented as of this encounter
--- OUTSIDE RECORDS SUMMARY | 2024-06-29 00:33 | XMS_ITS | Encounter Summary ---
Author Organization [facility] Healthcare Address [address] [place] [address] Care Team Providers Care Professor Sculpture Name Role Phone Mick Flowers MD Primary Care Provider [phone] Encounter Details Date Type Department Care Team (Late st Contact Info) Description 11/05/2017 6:53 AM CDT - 11/05/2017 10:30 AM CDT Hospital Encounter [facility] OP INTERIM [phone] Marquis Lopez MD [address] 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 Surgeon: Marquis Lopez M.D. Dictating: Marquis Lopez M.D. Service Dt: 11/05/2017 OPERATIVE REPORT FACILITY ID: [facility] Marquis Lopez MD SALES AND SERVICE CHANGE LEADER Liban Webb MD SECOND MEAT COUNTER WORKER Lauren Coleman M.D. PREOPERATIVE DIAGNOSIS Neurogenic bladder, neurogenic urinary urge incontinence. POSTOPERATIVE DIAGNOSIS Neurogenic bladder, neurogenic urinary urge incontinence. PROCEDURE Cystoscopy, injection of 300 units of Botox into the bladder through the cystoscope. ANESTHESIA General anesthesia. COMPLICATION None. SPECIMEN None. ESTIMATED BLOOD LOSS None. INDICATIONS FOR SURGERY Marita is a gentleman with neurogenic bladder, neurogenic urinary urge incontinence. Every 6 months he receives 300 units of Botox injections into his bladder to control his urge incontinence. He also does intermittent catheterization. He reported that lately he has no difficulty passing his catheter. The risks and benefits of Botox injections have been discussed with the patient. He consented to proceed. The risks include but not limited to bleeding, infection, ureteral injury, hematuria, urinary tract infection, etc. DETAILS OF SURGERY Patient identified in the preop area. Started on IV antibiotics. He was then prepped and draped in standard surgical fashion. Bilateral SCDs were placed for DVT prophylaxis. The procedure was done in low lithotomy position. A rigid scope was advanced to his bladder. We used a 19-Swedish cystoscope and there was no difficulty passing the scope inside the bladder. The prostate and urethra looks normal. There is no stricture. The bladder mucosa looks normal. There was some trabeculation inside the bladder but no masses or lesions or stones. Next, we diluted 300 units of Botox into 30 mL injectable normal saline into a Wilevr needle. We injected the Botox into the detrusor and submucosal area inside the bladder. We injected in the posterior bladder wall, the left and the right lateral bladder wall, as well as the trigone of the bladder sparing the ureteral orifices. At the end of the injection, there was a tiny little bleeding spot in the right trigone area away from the ureteral orifice for which we very gently used the Bugbee to Bovie that area without getting anywhere close to the ureteral orifice. The bleeding stopped. The urine is clear. There is no clots inside the bladder. His bladder was subsequently emptied. He was then awakened and sent to recovery room in stable condition. PRESENCE STATEMENT Dr. Marquis Lopez was present for the procedure. Electronically Authenticated by: Alpesh Lopez MD On 11/21/2017 03:10 PM CDT Marquis Lopez M.D. [facility] #[id number] Editing MT: TD: 11/06/2017 02:08 PM cc: Marquis Lopez M.D. documented in this encounter Plan of Treatment Not on file documented as of this encounter Visit Diagnoses Not on filedocumented in this encounter Care Teams Professor Sculpture Relationship Specialty Start Date End Date Mick Flowers MD PCP - General 05/14/17 documented as of this encounter
--- OUTSIDE RECORDS SUMMARY | 2024-06-29 00:33 | XMS_ITS | Encounter Summary ---
Author Organization [facility] Healthcare Address [address] [place] [address] Care Team Providers Care Trauma Manager Name Role Phone Mick Flowers MD Primary Care Provider [phone] Encounter Details Date Type Department Care Team (Late st Contact Info) Description 11/04/2018 7:23 AM CDT Anesthesia Event [facility] Operating Room [address] [place] [address] Belle Fournier MD [address] [place] [address] Brenda Dumont CRNA [address] [place] [address] Anesthesia Record Procedure Summary Procedure Name Responsible Anesthesiologist Anesthesia Start Time Anesthesia Stop Time INJECTION BOTOX 300 UNITS INTO BLADDER (Face) Belle Fournier MD 11/04/18 0723 11/04/18 0816 Events Date Time Event Comment 11/04/2018 0723 An Start 0728 In Room 0728 An Start Data 0737 An Induction The patient was reevaluated immediately before moderate or deep sedation use and before anesthesia induction. 0739 An LMA 0740 Anesthesia Ready 0748 Proc Start 0759 Proc Fin 0801 Airway Removed 0806 an stop data 0807 Out of Room 0815 Handoff to RN I completed my handoff [...] disposition at the time of handoff: PACU 0816 An Stop 0841 Release from care Meds Name Total midazolam PF 2 mg lidocaine 1 % PF 60 mg fentaNYL 50 mcg propofol 200 mg ondansetron PF (ZOFRAN) 2 mg/mL injectio n 4 mg famotidine PF 20 mg ceFAZolin (ANCEF) 2,000 mg/20 mL in ster ile water (premix) 2,000 mg 2,000 mg dexamethasone 4 mg/mL 4 mg glycopyrrolate 0.4 mg ketorolac 30 mg Lactated Ringer's (LR) infusion 0 mL * Agents Name O2% N2O O2 Air Sevoflurane Inspired Sevoflurane * Blood No blood administrations on file. Lines, Drains, and Airways Type Details Placement Removal RETIRED Surgical Site 05/06/18; 075; Perineum; 07/04/22; 1357; Removal date unknown/not present on admission 05/06/18 0753 by Taya Peterson RN 07/04/22 1357 by Inga Mcgill, LILIA Peripheral IV Placement Date: 11/04/18; Placement Time: 0616; Catheter Size: 20 G; Orientation: Right; Location: Hand; Inserted by: Sylvie; Insertion Attempts: 1; Patient Tolerance: Tolerated well; Removal Date: 11/04/18; Removal Time: 0910 11/04/18 0616 by Georgia Ram RN 11/04/18 0910 by Amber Gallagher RN Supraglottic Airway Placement Date: 11/04/18; Placement Time: 0739 (created via procedure documentation); Mask Ventilation: 0; Size: 5; Insertion Attempts: 1; Removal Date: 11/04/18; Removal Time: 0801 11/04/18 0739 by Brenda Dumont CRNA 11/04/18 0801 by Brenda Dumont CRNA RETIRED Surgical Site 11/04/18; 0757; Pe nis; 07/04/22; 1357; Removal date unknown/not present on admission 11/04/18 0757 by Anjana Zaragoza 07/04/22 1357 by Inga Mcgill, LILIA documented in this encounter Social History Tobacco Use Types Packs/Day Years Used Date Smoking Tobacco: Never Smokeless Tobacco: Never Alcohol Use Standard Drinks/Week Comments Yes 21 (1 standard drink = 0.6 oz pu re alcohol) Sex and Gender Information Value Date Recorded Sex Assigned at Not on file 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 Gender Identity Not on file Sexual Orientation Not on file documented as of this encounter OR Notes * Anesthesia Postprocedure Evaluation - Belle Fournier MD - 11/04/2018 8:40 AM CDT Patient: Doc Emery Procedure Summary Date: 11/04/18 Room / Location: [facility] OR POD 1 ROOM 324 / [facility] OR POD 1 Anesthesia Start: 722 Anesthesia Stop: 815 Procedures: INJECTION BOTOX 300 UNITS INTO BLADDER (N/A Face) CYSTOSCOPY (N/A Urethra) Diagnosis: Neurogenic bladder OAB (overactive bladder) (Neurogenic bladder [N31.9]) (OAB (overactive bladder) [N32.81]) Surgeon: Marquis Lopez MD Responsible Provider: Belle Fournier MD Anesthesia Type: general ASA Status: 2 Anesthesia Type: general Last vitals BP 96/73 Pulse 71 Temp 36.1 ??C (97 ??F) (Temporal) Resp 10 SpO2 94% Anesthesia Post Evaluation Patient location during evaluation: PACU Patient participation: complete - patient participated Level of consciousness: fully awake Pain score: 0 Pain management: satisfactory to patient Airway patency: adequate Evidence of recall: no Anesthetic complications: no Cardiovascular status: hemodynamically stable Respiratory status: acceptable Hydration status: euvolemic Pt is: normothermic Nausea/Vomiting status: none * Anesthesia Procedure Notes - Brenda Dumont CRNA - 11/04/2018 7:46 AM CDT Associated Order(s): Airway Airway Patient location: OR Urgency: elective Date/time: 11/04/2018 7:39 AM Indications for airway management: anesthesia Difficult airway: no Staff: Supervising provider: Belle Fournier MD Placed by: BRIM STITCHER: Brenda Dumont CRNA Emergent airway documentation: Risks and benefits discussed: yes Consent obtained: yes Consent given by: patient Airway prep: Preoxygenated: yes Patient position: sniffing Mask difficulty assessment: 0 - not attempted Spontaneous ventilation during airway: present Sedation level during airway: deep Final airway details: Final airway type: supraglottic airway Final supraglottic airway: IGel SGA size: 5 Number of attempts: 1 * Anesthesia Preprocedure Evaluation - Belle Fournier MD - 10/21/2018 9:32 [...] is Outpatient. Informed Consent: Discussed plan with BRIM STITCHER. Anesthesia plan and risks discussed with patient [...] Planning Preoperative Evaluation Record CPAP Clinic at [facility] ([facility]) Date: 10/21/18 Anesthesia Evaluation Doc [...] Hypertension + Hyperlipidemia Pertinent negatives: CAD ; [place] ; CABG ; systolic/diastolic dysfunction w/o [...] Medication protocol when under care of a BRIM STITCHER Planned anesthesia: MAC and general Team communication plan: LMA Induction: Induction: intravenous. Postoperative Plan: Postoperative administration opioids intended. No postoperative mechanical ventilation intended. Patient's planned disposition post procedure is Outpatient. Planned trial extubation. Informed Consent: Discussed plan with BRIM STITCHER. Anesthesia plan and risks discussed with patient [...] Procedure Name Priority Date/Time Associated Diagnosis Comments UT AN PROCEDURE PLACEHOLDER Routine 11/04/2018 7:46 AM CDT Procedure Note - Brenda Dumont CRNA - 11/04/2018 7:46 AM CDTThis note is in progress. Airway Patient location: OR Urgency: elective Date/time: 11/04/2018 7:39 AM Indications for airway management: anesthesia Difficult airway: no Staff: Supervising provider: Belle Fournier MD Placed by: BRIM STITCHER: Brenda Dumont CRNA Emergent airway documentation: Risks and benefits discussed: yes Consent obtained: yes Consent given by: patient Airway prep: Preoxygenated: yes Patient position: sniffing Mask difficulty assessment: 0 - not attempted Spontaneous ventilation during airway: present Sedation level during airway: deep Final airway details: Final airway type: supraglottic airway Final supraglottic airway: IGel SGA size: 5 Number of attempts: 1 UT AN ELECTIVE SUPRAGLOTTIC AIRWAY Routine 11/04/2018 7:46 AM CDT Procedure Note - Brenda Dumont CRNA - 11/04/2018 7:46 AM CDTThis note is in progress. Airway Patient location: OR Urgency: elective Date/time: 11/04/2018 7:39 AM Indications for airway management: anesthesia Difficult airway: no Staff: Supervising provider: Belle Fournier MD Placed by: BRIM STITCHER: Brenda Dumont CRNA Emergent airway documentation: Risks and benefits discussed: yes Consent obtained: yes Consent given by: patient Airway prep: Preoxygenated: yes Patient position: sniffing Mask difficulty assessment: 0 - not attempted Spontaneous ventilation during airway: present Sedation level during airway: deep Final airway details: Final airway type: supraglottic [...] of incision., Indications: Prophylaxis, SurgicalIndications:Prophylaxis, Surgical Given 11/04/2018 7:42 AM CDT 2,000 mg dexamethasone (DECADRON) 4 mg/mL injection Administer over 2 Minutes, As needed, Starting on Sun11/04/18 at 0749, Anesthesia Intra-op Given 11/04/2018 7:49 AM CDT 4 mg famotidine (PEPCID) injection Administer over 2 Minutes, As needed, Starting on Sun11/04/18 at 0725, Anesthesia Intra-op Given 11/04/2018 7:25 AM CDT 20 mg fentaNYL (SUBLIMAZE) preservative free injection intravenous, As needed, Starting on Sun11/04/18 at 0751, Anesthesia Intra-op Given 11/04/2018 7:51 AM CDT 50 mcg glycopyrrolate (ROBINUL) injection Administer over 1 Minutes, As needed, Starting on Sun11/04/18 at 0755, Anesthesia Intra-op Given 11/04/2018 7:55 AM CDT 0.4 mg ketorolac (TORADOL) injection As needed, Starting on Sun11/04/18 at 0800, Anesthesia Intra-op Given 11/04/2018 8:00 AM CDT 30 mg lidocaine PF (XYLOCAINE) 10 mg/mL (1 %) preservative free injection As needed, Starting on Sun11/04/18 at 0737, Anesthesia Intra-op Given 11/04/2018 7:37 AM CDT 60 mg midazolam (VERSED) preservative free injection intravenous, Administer over 2 Minutes, As needed, Starting on Sun11/04/18 at 0725, Anesthesia Intra-op Given 11/04/2018 7:25 AM CDT 2 mg ondansetron (ZOFRAN) injection intravenous, Administer over 2 Minutes, As needed, Starting on Sun11/04/18 at 0800, Anesthesia Intra-op Given 11/04/2018 8:00 AM CDT 4 mg propofol (DIPRIVAN) IV intravenous, As needed, Starting on Sun11/04/18 at 0737, Anesthesia Intra-op Given 11/04/2018 7:37 AM CDT 200 mg documented in this encounter Orders Procedures Count Last Ordered Date First Orde red Date Airway 1 11/04/2018 documented in this encounter Care Teams Trauma Manager Relationship Specialty Start Date End Date Mick Flowers MD PCP - General 05/14/17 documented as of this encounter
--- OUTSIDE RECORDS SUMMARY | 2024-06-29 00:34 | XMS_ITS | Encounter Summary ---
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 (CMS/HCC) (HCC) Social History Tobacco Use Types Packs/Day Years Used Date Smoking Tobacco: Never Assessed Sex and Gender Information Value Date Recorded Sex Assigned at Not on file 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
--- OUTSIDE RECORDS SUMMARY | 2024-06-29 00:34 | XMS_ITS | Encounter Summary ---
Author Organization [facility] Facility Care Team Providers Care Paintless Dent Repair Technician Name Role Phone Mick Flowers MD Primary Care Provider [phone] Encounter Details Date Type Department Care Team (Late st Contact Info) Description 02/04/2014 - 02/04/2014 11:59 PM CDT Hospital Encounter [facility] Papo Dhillon Urethral stricture; Neurogenic bladder; Hypertrophy of prostate without urinary obstruction and other lower urinary tract symptoms (LUTS) Social History Tobacco Use Types Packs/Day Years Used Date Smoking Tobacco: Never Assessed Sex and Gender Information Value Date Recorded Sex Assigned at Not on file 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 REGINO HURTADO M.D. FINAL REPORT The radiology attending physician has personally reviewed this study, and has reviewed and/or edited this written report and agrees with it. ACC# ??Date Time ??Exam [id number] Feb 04, 2014 08:42:00 [id number] Retro Ureth,S&I [id number] Feb 04, 2014 08:42:00 31750 Inj Retro Ureth [id number] Feb 04, 2014 08:42:00 68683 Voiding Urethro [id number] Feb 04, 2014 08:42:00 71586 Inj Cystography EXAMINATION: ?? Retrograde Urethrogram and Voiding Cystourethrogram HISTORY: 48-year-old male with neurogenic bladder requiring self-catheterization with urethral strictures seen on the recent cystourethroscopic evaluation TECHNIQUE: A pre press operator radiograph of the pelvis was obtained. ??Using sterile technique, the urethral meatus was then cannulated with a Pérez catheter and the balloon inflated in the fossa navicularis.. ??Conray 60 was then instilled into the urethra in a retrograde fashion and multiple fluoroscopic images obtained. ??The bladder was allowed to fill, and the catheter removed. ??The patient was then instructed to void, and multiple fluoroscopic images obtained. The patient tolerated the procedure well without complication. Dr. Clair Abdi, the attending radiologist, was present from the beginning to the end of the procedure. FINDINGS: Urethra: There is diffuse narrowing of the prostatic urethra. The membranous urethra is normal. There are multiple mild ringlike strictures in the bulbous and pendulous urethra. There is opacification of the cowper gland duct, a normal finding. Bladder: The prostate is enlarged causing indentation on the base of the urinary bladder. The urinary bladder appears normal. The patient voids incompletely using manual bladder compression. The urinary bladder emptied completely post self catheterization. IMPRESSION: ?? 1. Enlarged prostate with diffuse narrowing of the prostatic urethra. Normal membranous urethra. 2. Multiple mild ringlike strictures in the bulbous and pendulous urethra. Requested By: DRAKE DACOSTA ??Romeo. Dictated By: ?? REGINO HUTRADO M.D. ??on Feb 04 2014 ??9:33A This document has been electronically signed by: CLAIR ABDI M.D. on Feb 04 2014 11:27A Procedure Note Provider, MD Bettie - 10/15/2016 CLAIR ABDI M.D. REGINO HURTADO M.D. FINAL REPORT The radiology attending physician has personally reviewed this study, and has reviewed and/or edited this written report and agrees with it. ACC# Date Time Exam [id number] Feb 04, 2014 08:42:00 [id number] Retro Ureth,S&I [id number] Feb 04, 2014 08:42:00 60016 Inj Retro Ureth [id number] Feb 04, 2014 08:42:00 12559 Voiding Urethro [id number] Feb 04, 2014 08:42:00 16518 Inj Cystography EXAMINATION: Retrograde Urethrogram and Voiding Cystourethrogram HISTORY: 48-year-old male with neurogenic bladder requiring self-catheterization with urethral strictures seen on the recent cystourethroscopic evaluation TECHNIQUE: A pre press operator radiograph of the pelvis was obtained. Using sterile technique, the urethral meatus was then cannulated with a Pérez catheter and the balloon inflated in the fossa navicularis.. Conray 60 was then instilled into the urethra in a retrograde fashion and multiple fluoroscopic images obtained. The bladder was allowed to fill, and the catheter removed. The patient was then instructed to void, and multiple fluoroscopic images obtained. The patient tolerated the procedure well without complication. Dr. Clair Abdi, the attending radiologist, was present from the beginning to the end of the procedure. FINDINGS: Urethra: There is diffuse narrowing of the prostatic urethra. The membranous urethra is normal. There are multiple mild ringlike strictures in the bulbous and pendulous urethra. There is opacification of the cowper gland duct, a normal finding. Bladder: The prostate is enlarged causing indentation on the base of the urinary bladder. The urinary bladder appears normal. The patient voids incompletely using manual bladder compression. The urinary bladder emptied completely post self catheterization. IMPRESSION: 1. Enlarged prostate with diffuse narrowing of the prostatic urethra. Normal membranous urethra. 2. Multiple mild ringlike strictures in the bulbous and pendulousurethra. Requested By: DRAKE DACOSTA M.D. Dictated By: REGINO HURTADO M.D. on Feb 04 2014 9:33A This document has been electronically signed by: CLAIR ABDI M.D. on Feb 04 2014 11:27A us Historical Provider IMDelroy XR PROCEDURES Final R esult * Voiding Urethrocystogram (02/04/2014 8:42 AM CDT) Anatomical Region Laterality Modality Body, Pelvis N/A Radiographic Carla ging 02/04/2014 8:42 AM CDT Narrative 02/04/2014 11:27 AM CDT Flex HORN M.D. FINAL REPORT The radiology attending physician has personally reviewed this study, and has reviewed and/or edited this written report and agrees with it. ACC# ??Date Time ??Exam [id number] Feb 04, 2014 08:42:00 81500 Retro Ureth,S&I [id number] Feb 04, 2014 08:42:00 27972 Inj Retro Ureth [id number] Feb 04, 2014 08:42:00 81663 Voiding Urethro [id number] Feb 04, 2014 08:42:00 58793 Inj Cystography EXAMINATION: ?? Retrograde Urethrogram and Voiding Cystourethrogram HISTORY: 48-year-old male with neurogenic bladder requiring self-catheterization with urethral strictures seen on the recent cystourethroscopic evaluation TECHNIQUE: A pre press operator radiograph of the pelvis was obtained. ??Using sterile technique, the urethral meatus was then cannulated with a Pérez catheter and the balloon inflated in the fossa navicularis.. ??Conray 60 was then instilled into the urethra in a retrograde fashion and multiple fluoroscopic images obtained. ??The bladder was allowed to fill, and the catheter removed. ??The patient was then instructed to void, and multiple fluoroscopic images obtained. The patient tolerated the procedure well without complication. Dr. Clair Abdi, the attending radiologist, was present from the beginning to the end of the procedure. FINDINGS: Urethra: There is diffuse narrowing of the prostatic urethra. The membranous urethra is normal. There are multiple mild ringlike strictures in the bulbous and pendulous urethra. There is opacification of the cowper gland duct, a normal finding. Bladder: The prostate is enlarged causing indentation on the base of the urinary bladder. The urinary bladder appears normal. The patient voids incompletely using manual bladder compression. The urinary bladder emptied completely post self catheterization. IMPRESSION: ?? 1. Enlarged prostate with diffuse narrowing of the prostatic urethra. Normal membranous urethra. 2. Multiple mild ringlike strictures in the bulbous and pendulous urethra. Requested By: DRAKE DACOSTA ??M.D. Dictated By: ?? REGINO HURTADO M.D. ??on Feb 04 2014 ??9:33A This document has been electronically signed by: CLAIR ABDI M.D. on Feb 04 2014 11:27A Procedure Note Provider, MD Bettie - 10/15/2016 CLAIR ABDI M.D. REGINO HURTADO M.D. FINAL REPORT The radiology attending physician has personally reviewed this study, and has reviewed and/or edited this written report and agrees with it. ACC# Date Time Exam [id number] Feb 04, 2014 08:42:00 [id number] Retro Ureth,S&I [id number] Feb 04, 2014 08:42:00 84931 Inj Retro Ureth [id number] Feb 04, 2014 08:42:00 74635 Voiding Urethro [id number] Feb 04, 2014 08:42:00 48129 Inj Cystography EXAMINATION: Retrograde Urethrogram and Voiding Cystourethrogram HISTORY: 48-year-old male with neurogenic bladder requiring self-catheterization with urethral strictures seen on the recent cystourethroscopic evaluation TECHNIQUE: A pre press operator radiograph of the pelvis was obtained. Using sterile technique, the urethral meatus was then cannulated with a Pérez catheter and the balloon inflated in the fossa navicularis.. Conray 60 was then instilled into the urethra in a retrograde fashion and multiple fluoroscopic images obtained. The bladder was allowed to fill, and the catheter removed. The patient was then instructed to void, and multiple fluoroscopic images obtained. The patient tolerated the procedure well without complication. Dr. Clair Abdi, the attending radiologist, was present from the beginning to the end of the procedure. FINDINGS: Urethra: There is diffuse narrowing of the prostatic urethra. The membranous urethra is normal. There are multiple mild ringlike strictures in the bulbous and pendulous urethra. There is opacification of the cowper gland duct, a normal finding. Bladder: The prostate is enlarged causing indentation on the base of the urinary bladder. The urinary bladder appears normal. The patient voids incompletely using manual bladder compression. The urinary bladder emptied completely post self catheterization. IMPRESSION: 1. Enlarged prostate with diffuse narrowing of the prostatic urethra. Normal membranous urethra. 2. Multiple mild ringlike strictures in the bulbous and pendulousurethra. Requested By: DRAKE DACOSTA M.D. Dictated By: REGINO HURTADO M.D. on Feb 04 2014 9:33A This document has been electronically signed by: CLAIR ABDI M.D. on Feb 04 2014 11:27A Historical Provider MD CHOWDHURY FLUOROSCOPY PROCEDURE S Final Result * Retrograde Urethrogram (02/04/2014 8:42 AM CDT) Anatomical Region Laterality Modality Body N/A Radiographic Carla ging 02/04/2014 8:42 AM CDT Narrative 02/04/2014 11:27 AM CDT Flex HORN M.D. FINAL REPORT The radiology attending physician has personally reviewed this study, and has reviewed and/or edited this written report and agrees with it. ACC# ??Date Time ??Exam [id number] Feb 04, 2014 08:42:00 [id number] Retro Ureth,S&I [id number] Feb 04, 2014 08:42:00 08447 Inj Retro Ureth [id number] Feb 04, 2014 08:42:00 72296 Voiding Urethro [id number] Feb 04, 2014 08:42:00 63019 Inj Cystography EXAMINATION: ?? Retrograde Urethrogram and Voiding Cystourethrogram HISTORY: 48-year-old male with neurogenic bladder requiring self-catheterization with urethral strictures seen on the recent cystourethroscopic evaluation TECHNIQUE: A pre press operator radiograph of the pelvis was obtained. ??Using sterile technique, the urethral meatus was then cannulated with a Pérez catheter and the balloon inflated in the fossa navicularis.. ??Conray 60 was then instilled into the urethra in a retrograde fashion and multiple fluoroscopic images obtained. ??The bladder was allowed to fill, and the catheter removed. ??The patient was then instructed to void, and multiple fluoroscopic images obtained. The patient tolerated the procedure well without complication. Dr. Clair Abdi, the attending radiologist, was present from the beginning to the end of the procedure. FINDINGS: Urethra: There is diffuse narrowing of the prostatic urethra. The membranous urethra is normal. There are multiple mild ringlike strictures in the bulbous and pendulous urethra. There is opacification of the cowper gland duct, a normal finding. Bladder: The prostate is enlarged causing indentation on the base of the urinary bladder. The urinary bladder appears normal. The patient voids incompletely using manual bladder compression. The urinary bladder emptied completely post self catheterization. IMPRESSION: ?? 1. Enlarged prostate with diffuse narrowing of the prostatic urethra. Normal membranous urethra. 2. Multiple mild ringlike strictures in the bulbous and pendulous urethra. Requested By: DRAKE DACOSTA ??M.D. Dictated By: ?? REGINO HURTADO M.D. ??on Feb 04 2014 ??9:33A This document has been electronically signed by: CLAIR ABDI M.D. on Feb 04 2014 11:27A Procedure Note Provider, MD Bettie - 10/15/2016 CLAIR ABDI M.D. REGINO HURTADO M.D. FINAL REPORT The radiology attending physician has personally reviewed this study, and has reviewed and/or edited this written report and agrees with it. ACC# Date Time Exam [id number] Feb 04, 2014 08:42:00 [id number] Retro Ureth,S&I [id number] Feb 04, 2014 08:42:00 68651 Inj Retro Ureth [id number] Feb 04, 2014 08:42:00 33468 Voiding Urethro [id number] Feb 04, 2014 08:42:00 48870 Inj Cystography EXAMINATION: Retrograde Urethrogram and Voiding Cystourethrogram HISTORY: 48-year-old male with neurogenic bladder requiring self-catheterization with urethral strictures seen on the recent cystourethroscopic evaluation TECHNIQUE: A pre press operator radiograph of the pelvis was obtained. Using sterile technique, the urethral meatus was then cannulated with a Pérez catheter and the balloon inflated in the fossa navicularis.. Conray 60 was then instilled into the urethra in a retrograde fashion and multiple fluoroscopic images obtained. The bladder was allowed to fill, and the catheter removed. The patient was then instructed to void, and multiple fluoroscopic images obtained. The patient tolerated the procedure well without complication. Dr. Clair Abdi, the attending radiologist, was present from the beginning to the end of the procedure. FINDINGS: Urethra: There is diffuse narrowing of the prostatic urethra. The membranous urethra is normal. There are multiple mild ringlike strictures in the bulbous and pendulous urethra. There is opacification of the cowper gland duct, a normal finding. Bladder: The prostate is enlarged causing indentation on the base of the urinary bladder. The urinary bladder appears normal. The patient voids incompletely using manual bladder compression. The urinary bladder emptied completely post self catheterization. IMPRESSION: 1. Enlarged prostate with diffuse narrowing of the prostatic urethra. Normal membranous urethra. 2. Multiple mild ringlike strictures in the bulbous and pendulousurethra. Requested By: DRAKE DACOSTA M.D. Dictated By: REGINO HURTADO M.D. on Feb 04 2014 9:33A This document has been electronically signed by: CLAIR ABDI M.D. on Feb 04 2014 11:27A Historical Provider MD CHOWDHURY FLUOROSCOPY PROCEDURE S Final Result * Retrograde Urethrogram (02/04/2014 8:42 AM CDT) Anatomical Region Laterality Modality Body N/A Radiographic Carla ging 02/04/2014 8:42 AM CDT Narrative 02/04/2014 11:27 AM CDT Flex HORN M.D. FINAL REPORT The radiology attending physician has personally reviewed this study, and has reviewed and/or edited this written report and agrees with it. ACC# ??Date Time ??Exam [id number] Feb 04, 2014 08:42:00 [id number] Retro Ureth,S&I [id number] Feb 04, 2014 08:42:00 60006 Inj Retro Ureth [id number] Feb 04, 2014 08:42:00 78901 Voiding Urethro [id number] Feb 04, 2014 08:42:00 15839 Inj Cystography EXAMINATION: ?? Retrograde Urethrogram and Voiding Cystourethrogram HISTORY: 48-year-old male with neurogenic bladder requiring self-catheterization with urethral strictures seen on the recent cystourethroscopic evaluation TECHNIQUE: A pre press operator radiograph of the pelvis was obtained. ??Using sterile technique, the urethral meatus was then cannulated with a Pérez catheter and the balloon inflated in the fossa navicularis.. ??Conray 60 was then instilled into the urethra in a retrograde fashion and multiple fluoroscopic images obtained. ??The bladder was allowed to fill, and the catheter removed. ??The patient was then instructed to void, and multiple fluoroscopic images obtained. The patient tolerated the procedure well without complication. Dr. Clair Abdi, the attending radiologist, was present from the beginning to the end of the procedure. FINDINGS: Urethra: There is diffuse narrowing of the prostatic urethra. The membranous urethra is normal. There are multiple mild ringlike strictures in the bulbous and pendulous urethra. There is opacification of the cowper gland duct, a normal finding. Bladder: The prostate is enlarged causing indentation on the base of the urinary bladder. The urinary bladder appears normal. The patient voids incompletely using manual bladder compression. The urinary bladder emptied completely post self catheterization. IMPRESSION: ?? 1. Enlarged prostate with diffuse narrowing of the prostatic urethra. Normal membranous urethra. 2. Multiple mild ringlike strictures in the bulbous and pendulous urethra. Requested By: DRAKE DACOSTA ??Flex Dictated By: ?? REGINO HURTADO M.D. ??on Feb 04 2014 ??9:33A This document has been electronically signed by: CLAIR ABDI M.D. on Feb 04 2014 11:27A Procedure Note Provider, MD Bettie - 10/15/2016 CLAIR ABDI M.D. RANA FATTAHI, M.D. FINAL REPORT The radiology attending physician has personally reviewed this study, and has reviewed and/or edited this written report and agrees with it. ACC# Date Time Exam [id number] Feb 04, 2014 08:42:00 [id number] Retro Ureth,S&I [id number] Feb 04, 2014 08:42:00 50159 Inj Retro Ureth [id number] Feb 04, 2014 08:42:00 54944 Voiding Urethro [id number] Feb 04, 2014 08:42:00 39870 Inj Cystography EXAMINATION: Retrograde Urethrogram and Voiding Cystourethrogram HISTORY: 48-year-old male with neurogenic bladder requiring self-catheterization with urethral strictures seen on the recent cystourethroscopic evaluation TECHNIQUE: A pre press operator radiograph of the pelvis was obtained. Using sterile technique, the urethral meatus was then cannulated with a Pérez catheter and the balloon inflated in the fossa navicularis.. Conray 60 was then instilled into the urethra in a retrograde fashion and multiple fluoroscopic images obtained. The bladder was allowed to fill, and the catheter removed. The patient was then instructed to void, and multiple fluoroscopic images obtained. The patient tolerated the procedure well without complication. Dr. Clair Abdi, the attending radiologist, was present from the beginning to the end of the procedure. FINDINGS: Urethra: There is diffuse narrowing of the prostatic urethra. The membranous urethra is normal. There are multiple mild ringlike strictures in the bulbous and pendulous urethra. There is opacification of the cowper gland duct, a normal finding. Bladder: The prostate is enlarged causing indentation on the base of the urinary bladder. The urinary bladder appears normal. The patient voids incompletely using manual bladder compression. The urinary bladder emptied completely post self catheterization. IMPRESSION: 1. Enlarged prostate with diffuse narrowing of the prostatic urethra. Normal membranous urethra. 2. Multiple mild ringlike strictures in the bulbous and pendulousurethra. Requested By: DRAKE DACOSTA M.D. Dictated By: REGINO HURTADO M.D. on Feb 04 2014 9:33A This document has been electronically signed by: CLAIR ABDI M.D. on Feb 04 2014 11:27A us Historical Provider MD CHOWDHURY FLUOROSCOPY PROCEDURE S Final Result documented in this encounter Visit Diagnoses Diagnosis Urethral stricture Neurogenic bladder Neurogenic bladder, NOS Hypertrophy of prostate without urinary obstruction and other lower urinary tract symptoms (LUTS) documented in this encounter Care Teams Paintless Dent Repair Technician Relationship Specialty Start Date End Date Mick Flowers MD PCP - General 09/19/13 10/31/15 documented as of this encounter
--- OUTSIDE RECORDS SUMMARY | 2024-06-29 00:34 | XMS_ITS | Encounter Summary ---
Author Organization [facility] Facility Care Team Providers Care Solar Photovoltaic Designer Name Role Phone Mick Flowers MD Primary Care Provider [phone] Encounter Details Date Type Department Care Team (Late st Contact Info) Description 03/24/2014 5:54 AM CDT - 03/24/2014 4:00 PM T Hospital Encounter [facility] Papo Dhillon Urethral stricture; Multiple sclerosis (HCC); Neurogenic bladder; Pure hypercholesterolemia ; Encounter for long-term (current) use of other medications Social History Tobacco Use Types Packs/Day Years Used Date Smoking Tobacco: Never Assessed Sex and Gender Information Value Date Recorded Sex Assigned at Not on file 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 Surgeon: Papo Ellsworth M.D. Dictating: Papo Ellsworth M.D. Service Dt: 03/24/2014 OPERATIVE REPORT FIRST APPEALS EXAMINER: Usman Paulson M.D. ANESTHESIA: General. PREOPERATIVE DIAGNOSIS (ES): 1. Meatal and fossa urethral stricture. 2. Membranous urethral stricture. 3. Neurogenic bladder. POSTOPERATIVE DIAGNOSIS (ES): 1. Meatal and fossa urethral stricture. 2. Membranous urethral stricture. 3. Neurogenic bladder. NAME OF OPERATION: 1. Direct visual internal urethrotomy and steroid injection. 2. Meatotomy. 3. Intravesical Botox injections. DESCRIPTION OF PROCEDURE: The patient was well identified on the operating room table. The patient was prepped and draped in the usual sterile fashion in the lithotomy position. He received preoperative Ancef IV antibiotics and sequential TEDs within an hour of surgery. He initially underwent placement of an [place] urethrotome dilated to 30 Burundian and incised the fossa navicularis and the meatus at the 12 o'clock position. We then performed rigid cystoscopy and he was noted to have a mild narrowing stricture the penile-scrotal junction incised at the 12 o'clock position. It opened up nicely and then we incised the membranous urethral stricture at the 3, 6, 9, and 12 o'clock position. This opened up nicely. We then injected 400 mg of Triamcinolone into the urethral stricture. We then injected 300 mg of Botox in 30 injection sites throughout the bladder without incident. We then placed an 18 Burundian Pérez catheter compressive Coban dressing, and the patient was then subsequently transferred to the recovery room in stable condition. SPECIMENS REMOVED: None. ESTIMATED BLOOD LOSS: Minimal. INTRAOPERATIVE FLUIDS: Crystalloid. Drains - Pérez catheter times one. CONDITION ON DISCHARGE FROM OPERATING ROOM: Disposition - The patient tolerated the procedure well and was transferred to the recovery room in stable condition. PRESENCE STATEMENT: I was physically present for the entire procedure except for initial prepping and draping and transfer to the recovery room. Dr. Nelson Romero was present during those times. Electronically Signed By Papo Ellsworth M.D. 03/25/2014 08:25 P Flex Grayson/claudio #[id number] Editing MT: TD: 03/25/2014 14:02:00 cc: Papo Ellsworth M.D. documented in this encounter Plan of Treatment Not on file documented as of this encounter Visit Diagnoses Diagnosis Urethral stricture Multiple sclerosis (HCC) Multiple sclerosis Neurogenic bladder Neurogenic bladder, NOS Pure hypercholesterolemia Encounter for long-term (current) use of other medications documented in this encounter Care Teams Solar Photovoltaic Designer Relationship Specialty Start Date End Date Mick Flowers MD PCP - General 09/19/13 10/31/15 documented as of this encounter
--- OUTSIDE RECORDS SUMMARY | 2024-06-29 00:34 | XMS_ITS | Encounter Summary ---
Author Organization [facility] Facility Care Team Providers Care Nitrogen Operator Name Role Phone Mick Flowers MD Primary Care Provider [phone] Encounter Details Date Type Department Care Team (Late st Contact Info) Description 11/26/2013 - 11/26/2013 11:59 PM CDT Hospital Encounter [facility] Wally Barlow MD [address] [facility] [id number] [place] [address] Neurogenic bladder Social History Tobacco Use Types Packs/Day Years Used Date Smoking Tobacco: Never Assessed Sex and Gender Information Value Date Recorded Sex Assigned at Not on file 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 [facility] ? Department of Laboratories ?[place] [address] ?[facility] ??Division ??Urologic ?Surgery ?[address] [place] [address] Patient Name: ? MARITA EMERY MAJO Med Rec Number: ?? [id number] Date of : ?1965 Gender/Age: ? Male 48 years Doctor: ? Wally Barlow M.D. Report Date/Time: 11/27/2013 17:20 ?* Abnormal ??C Critical ??f Footnote ??^ Corrected ??L Low ??H High ?i Interp Data ??@ Reference Lab ?Chart Type: Cumulative ? MICROBIOLOGY ? PROCEDURE: Urine Culture ?SOURCE: Urine, catheterized COLLECTED: 11/26/13 ??1112 ? BODY SITE: STARTED: 11/26/13 ??1208 FREE TEXT SOURCE: FINAL REPORT REPORTED: 11/27/13 1341 No growth Historical Provider LAB BLOOD ORDERABLES Cecilia l Result Performing Organization Address [facility] de Phone Number HISTORICAL RESULTS * Urine (aerobic) culture (11/26/2013 11:12 AM CDT) Urine, catheterized (Unknown) 11/26/2013 11:12 AM CDT 11/26/2013 12:08 PM CDT Narrative HISTORICAL RESULTS - 11/27/2013 1:41 PM CDT No growth Historical Provider LAB MICROBIOLOGY - GENERA L ORDERABLES Final Result Performing Organization Address [facility] de Phone Number HISTORICAL RESULTS * Cytology (11/26/2013) Narrative 11/26/2013 Ordered by an unspecified provider. Historical Provider MD NOEL CYTOLOGY ORDERABLES F inal Result * All Microbiology Report Section (11/26/2013 12:00 AM CDT) 11/26/2013 Narrative HISTORICAL RESULTS - 11/27/2013 3:57 PM CDT ? [facility] ?[facility] [facility] [address] ? Patient Name: ??MARITA EMERY ? Med Rec Number: [id number] ? Fin Number: ?[id number] ? Date: ?1965 ? Sex/Age: ? Male 48 years ? Admit Date: ?11/26/2013 ? Discharge Date: 11/26/2013 ? Doctor: ?Wally Barlow ? Facility: ?[facility] Div Urologic Surgery ? Location: ?[facility] ?* Abnormal ??A Alert ??f Footnote ??^ Corrected ??L Low ??H High ?i Interp Data ??@ Ref Lab ? Chart Type:Cumulative ?* * * * MICROBIOLOGY - URINE * * * * ?PROCEDURE: Urine Culture ? SOURCE: Urine, catheterized ? COLLECTED: 11/26/13 ??1112 ?BODY SITE: ? STARTED: 11/26/13 ??1208 ? FREE TEXT SOURCE: ? FINAL REPORT ? REPORTED: 11/27/13 1341 ? No growth us Historical Provider LAB MICROBIOLOGY - GENERA L ORDERABLES Final Result HISTORICAL RESULTS documented in this encounter Visit Diagnoses Diagnosis Neurogenic bladder Neurogenic bladder, NOS documented in this encounter Care Teams Nitrogen Operator Relationship Specialty Start Date End Date Mick Flowers MD PCP - General 09/19/13 10/31/15 documented as of this encounter
--- OUTSIDE RECORDS SUMMARY | 2024-06-29 00:34 | XMS_ITS | Encounter Summary ---
Author Organization [facility] Facility Care Team Providers Care Health Director Name Role Phone Mick Flowers MD Primary Care Provider [phone] Encounter Details Date Type Department Care Team (Late st Contact Info) Description 01/26/2014 5:45 AM CDT - 01/26/2014 2:18 PM CDT Hospital Encounter [facility] Drake Barlow MD [address] [facility] [id number] [place] [address] Neurogenic bladder; Urethral stricture; Essential hypertension; Other and unspecified hyperlipidemia; Multiple sclerosis (HCC) Social History Tobacco Use Types Packs/Day Years Used Date Smoking Tobacco: Never Assessed Sex and Gender Information Value Date Recorded Sex Assigned at Not on file 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 Date: 01/26/2014 Surgeon: DRAKE BARLOW MD Admit Date: 01/26/2014 Disch. Date: 01/26/2014 Patient Type: S PREOPERATIVE DIAGNOSIS: Neurogenic bladder with urethral stricture disease. POSTOPERATIVE DIAGNOSIS: Neurogenic bladder with urethral stricture disease. NAME OF PROCEDURE: Distal urethral dilation, flexible cystoscopy and biopsy of bulbar urethral stricture. SURGEON: Drake Barlow MD DRAWING HAND: Javi Hopkins MD ANESTHESIA: Laryngeal mask general anesthesia. BRIEF CLINICAL HISTORY: Mr. Emery is a 48-year-old male who has a neurogenic bladder. He does intermittent self-catheterization daily. He has had increasing difficulty with catheterizations. Cystoscopy in the office revealed diffuse stricture disease, some area of abnormal-appearing tissue in the bulbar and membranous urethra. The patient is here for cystoscopy and biopsy of the urethral stricture area. DESCRIPTION OF OPERATIVE PROCEDURE: The patient was given intravenous antibiotic prophylaxis with 2 grams of Ancef about an hour before coming back to the operating room. This will be the only dose of antibiotics that we plan to give him during the hospital stay. Sequential compression devices were placed for DVT prophylaxis. He was brought back to the operating room, given laryngeal mask general anesthetic and placed in the dorsal lithotomy position. The genitalia prepped and draped in the usual sterile fashion. We attempted to pass a 23-Jamaican rigid scope. This did not go. We dilated the urethra with [place] sounds, but even with this, we were able to dilate up to 22 Jamaican, but really could not get the distal urethra to dilate any further and we could not get the rigid scope down the urethra, so we passed a flexible cystoscope. We were able to navigate through the distal urethral strictures which were diffuse and moderately narrowing. In the bulbar urethra again, thickened and white appearing mucosa, but we were able to advance the scope beyond this area and into the bladder. We inspected the bladder. There were no papillary lesions, no mucosal defects in the bladder. The bladder was small capacity and some moderate trabeculations in the bladder. Retroflex view of the scope showed no real significant prostatic urethral growth. We backed the scope out to the area of the bulbomembranous urethra and took several cold cup biopsies in this area. There was really fairly minimal bleeding. When this was finished, we then passed a Sensor guidewire and advanced this into the bladder. We backed the scope out and attempted to pass a 14-Jamaican Tetlin-tip catheter. This catheter would not go over the wire getting hung up in the bulbomembranous urethra. We backed this out. We were able to pass a 14-Jamaican regular catheter alongside the guidewire. This went into the bladder. We removed the guidewire, left the Pérez catheter to gravity drainage and my plan will be to have him remove the Pérez catheter later this week after about 3-4 days and then I will have him followup with partner, Dr. Ellsworth with a retrograde urethrogram to discuss more definitive management for the long-term for his urethral stricture disease. I was present for the entire procedure. MD WAYLON CORDOVA/ TD: 01/27/2014 07:26 Authenticated and Edited by Drake Barlow MD On 01/28/14 11:40:06 AM * Op Note - Provider, MD Bettie - 01/26/2014 12:00 AM CDT Patient: MARITA EMERY Account: [id number] Room No: : 1965 Proc. Date: 01/26/2014 Surgeon: DRAKE BARLOW MD Admit Date: 01/26/2014 Disch. Date: 01/26/2014 Patient Type: S ADDENDUM 01/28/2014 DATE OF SURGERY: January 26, 2014. Apparently I forgot to state my presence during the case. The addendum is to state that I was present for the entire procedure. A/pc 01/28/2014 9:34 DRAKE BARLOW MD RSF/pc TD: 01/28/2014 15:24 Authenticated by Drake Barlow MD On 01/29/2014 11:32:12 AM documented in this encounter Plan of Treatment Not on file documented as of this encounter Procedures Procedure Name Priority Date/Time Associated Diagnosis Comments SURGICAL PATHOLOGY 01/26/2014 documented in this encounter Results * Surgical pathology (01/26/2014) Narrative 01/26/2014 Ordered by an unspecified provider. us [facility] Provider LAB PATHOLOGY ORDERABLES Final Result documented in this encounter Visit Diagnoses Diagnosis Neurogenic bladder Neurogenic bladder, NOS Urethral stricture Essential hypertension Unspecified essential hypertension Other and unspecified hyperlipidemia Multiple sclerosis (HCC) Multiple sclerosis documented in this encounter Care Teams Health Director Relationship Specialty Start Date End Date Mick Flowers MD PCP - General 09/19/13 10/31/15 documented as of this encounter
--- OUTSIDE RECORDS SUMMARY | 2024-06-29 00:34 | XMS_ITS | Encounter Summary ---
Author Organization [facility] Facility Care Team Providers Care Maintainer Operator Name Role Phone Unavailable Primary Care Provider Unavailabl e Encounter Details Date Type Department Care Team (Latest Contact Info) Description 08/09/2007 - 08/09/2007 11:59 PM TILE BURNER Hospital Encounter [facility] Betzaida Leahy MD [address] [facility] [address] [place] [address] Multiple sclerosis (HCC); Degeneration of intervertebral disc Social History Tobacco Use Types Packs/Day Years Used Date Smoking Tobacco: Never Assessed Sex and Gender Information Value Date Recorded Sex Assigned at Not on file 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
--- OUTSIDE RECORDS SUMMARY | 2024-06-29 00:34 | XMS_ITS | Encounter Summary ---
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 GONORRHOEAE, CHLAMYDIA TRACHOMATIS AMPLIFICATION TEST, CDR Routine 03/11/2014 10:24 AM CDT ALL MICROBIOLOGY REPORT SECTION Routine 03/11/2014 12:00 AM CDT ALL MICROBIOLOGY REPORT SECTION Routine 03/11/2014 12:00 AM CDT documented in this encounter Results * Discharge Laboratory Cumulative Report (03/14/2014 5:08 PM CDT) 03/14/2014 5:08 PM CDT Narrative HISTORICAL RESULTS - 03/14/2014 5:08 PM CDT ? [facility] ? Department of Laboratories ? [facility] ? [place] ?[facility] [address] ?[facility]Division ??Urologic ?Surgery ? [facility] 11-C Patient Name: ? MARITA EMERY Med Rec Number: ?? [id number] Date of : ?1965 Gender/Age: ? Male 48 years Doctor: ? Papo Ellsworth M.D. Report Date/Time: 03/14/2014 17:08 ?* Abnormal ??C Critical ??f Footnote ??^ Corrected ??L Low ??H High ?i Interp Data ??@ Reference Lab ?Chart Type: Cumulative ? MICROBIOLOGY ? PROCEDURE: Aerobic Culture, Genital and Gram Stain ?SOURCE: Penile COLLECTED: 03/11/14 ??1024 ? BODY SITE: STARTED: 03/11/14 ??1321 FREE TEXT SOURCE: DIRECT SPECIMEN EXAMINATION Stain REPORTED: 03/11/14 1452 Abundant polymorphonuclear leukocytes seen. Few Gram Positive Cocci FINAL REPORT REPORTED: 03/14/14 1457 Moderate Mixed microorganisms. Includes the following: Moderate Staphylococcus aureus Methicillin susceptible (MSSA) by penicillin binding protein 2a (PBP2a) testing. This isolate is presumed to be resistant to clindamycin based on detection of inducible clindamycin resistance. Clindamycin may still be effective in some patients. SUSCEPTIBILITY RESULTS Staphylococcus aureus ? SUSCEPTIBLE: Vancomycin, ?Trimethoprim with Sulfamethoxazole, ?Linezolid,Doxycycline,Oxacillin, ?Cefazolin,Ceftriaxone ? RESISTANT: Clindamycin,Erythromycin ? MICROBIOLOGY ? PROCEDURE: N. gonorrhoeae/C. trachomatis Amplification Test ?SOURCE: Urethral COLLECTED: 03/11/14 ??1024 ? BODY SITE: STARTED: 03/11/14 ??1322 FREE TEXT SOURCE: FINAL REPORT REPORTED: 03/13/14 1338 Negative for: ??Chlamydia trachomatis rRNA Negative for: Neisseria gonorrhoeae rRNA * * * ??Interpretive Results ??* * * (1)Testing performed by the [employer] APTIMA Combo 2 Assay. This nucleic acid amplification test (NAAT) detects ribosomal RNA (rRNA) from Chlamydia trachomatis and Neisseria gonorrhoeae using target capture, and Procedure Writer-Mediated Amplification (TMA). ??This test is approved by the [place] Food and Drug Administration for endocervical, vaginal, and male urethral swab specimens, in addition to male and female urine specimens. ??The performance characteristics for these specimen types have been verified by the [facility]. The performance characteristics of this test have not been evaluated in women or individuals less than 16 years of age.Current interpretive data was last revised on 2013. us Historical Provider LAB BLOOD ORDERABLES Cecilia holcomb Result HISTORICAL RESULTS * Aerobic culture and Gram stain (03/11/2014 10:24 AM CDT) Organism [id number] HISTORICAL RESULTS Penile (Unknown) 03/11/2014 10:24 AM CDT 03/11/2014 1:21 PM CDT Narrative HISTORICAL RESULTS - 03/14/2014 2:57 PM CDT Moderate Mixed microorganisms. Includes the following: Moderate Staphylococcus aureus Methicillin susceptible (MSSA) by penicillin binding protein 2a (PBP2a) testing. This isolate is presumed to be resistant to clindamycin based on detection of inducible clindamycin resistance. Clindamycin may still be effective in some patients. Abundant polymorphonuclear leukocytes seen. Few Gram Positive Cocci Organism Antibiotic Method Susceptibility Staphylococcus aureus Vancomycin Susceptible Staphylococcus aureus Trimethoprim with Sulfamethoxazo le Susceptible Staphylococcus aureus Linezolid Susceptible Staphylococcus aureus Doxycycline Susceptible Staphylococcus aureus Clindamycin Resistant Staphylococcus aureus Erythromycin Resistant Staphylococcus aureus Oxacillin Susceptible Staphylococcus aureus Cefazolin Susceptible Staphylococcus aureus Ceftriaxone Susceptible Historical Provider MD LAB MICROBIOLOGY - GENERA L ORDERABLES Final Result HISTORICAL RESULTS * Neisseria gonorrhoeae, Chlamydia trachomatis amplification test (03/11/2014 10:24 AM CDT) Urethral (Unknown) 03/11/2014 10:24 AM CDT 03/11/2014 1:22 PM CDT Impressions HISTORICAL RESULTS - 03/13/2014 1:38 PM CDT Testing performed by the [employer] APTIMA Combo 2 Assay. ??This nucleic acid amplification test (NAAT) detects ribosomal RNA (rRNA) from Chlamydia trachomatis and Neisseria gonorrhoeae using target capture, and Procedure Writer-Mediated Amplification (TMA). ??This test is approved by the [place] Food and Drug Administration for endocervical, vaginal, and male urethral swab specimens, in addition to male and female urine specimens. ??The performance characteristics for these specimen types have been verified by the [facility]. ??The performance characteristics of this test have not been evaluated in women or individuals less than 16 years of age. Current interpretive data was last revised on 2013. Narrative HISTORICAL RESULTS - 03/13/2014 1:38 PM CDT Negative for: ??Chlamydia trachomatis rRNA Negative for: ??Neisseria gonorrhoeae rRNA Historical Provider MD LAB MICROBIOLOGY - GENERA L ORDERABLES Final Result HISTORICAL RESULTS * All Microbiology Report Section (03/11/2014 12:00 AM CDT) 03/11/2014 Narrative HISTORICAL RESULTS - 03/14/2014 12:46 PM CDT ? [facility] ?[facility] [place] ?[place] [address] ? Patient Name: ??MARITA EMERY ? Med Rec Number: [id number] ? Fin Number: ?[id number] ? Date: ?1965 ? Sex/Age: ? Male 48 years ? Admit Date: ?03/11/2014 ? Discharge Date: 03/11/2014 ? Doctor: ?Papo Ellsworth ? Facility: ?[facility] Urologic Surgery ? Location: ?[facility] ?* Abnormal ??A Alert ??f Footnote ??^ Corrected ??L Low ??H High ?i Interp Data ??@ Ref Lab ? Chart Type:Cumulative ?* * * * MICROBIOLOGY - GENITAL * * * * ?PROCEDURE: N. gonorrhoeae/C. trachomatis Amplification Test ? SOURCE: Urethral ? COLLECTED: 03/11/14 ??1024 ?BODY SITE: ? STARTED: 03/11/14 ??1322 ? FREE TEXT SOURCE: ? FINAL REPORT ? REPORTED: 03/13/14 1338 ? Negative for: ??Chlamydia trachomatis rRNA Negative for: ? Neisseria gonorrhoeae rRNA ?* * * ??Interpretive Results ??* * * ? (1)Testing performed by the [employer] APTIMA Combo 2 Assay. ? This nucleic acid amplification test (NAAT) detects ribosomal ? RNA (rRNA) from Chlamydia trachomatis and Neisseria gonorrhoeae ? using target capture, and Procedure Writer-Mediated Amplification ? (TMA). ??This test is approved by the [place] Food and Drug ? Administration for endocervical, vaginal, and male urethral swab ? specimens, in addition to male and female urine specimens. ??The ? performance characteristics for these specimen types have been ? verified by the [facility]. ? The performance characteristics of this test have not been ? evaluated in women or individuals less than 16 years of ? age.Current interpretive data was last revised on 2013. ? us Historical Provider MD LAB MICROBIOLOGY - GENERA L ORDERABLES Final Result HISTORICAL RESULTS * All Microbiology Report Section (03/11/2014 12:00 AM CDT) 03/11/2014 Narrative HISTORICAL RESULTS - 03/14/2014 3:51 PM CDT ? [facility] ?[facility] [place] ?[place], [place] [address] ? Patient Name: ??MARITA EMERY ? Med Rec Number: [id number] ? Fin Number: ?[id number] ? Date: ?1965 ? Sex/Age: ? Male 48 years ? Admit Date: ?03/11/2014 ? Discharge Date: 03/11/2014 ? Doctor: ?Papo Ellsworth ? Facility: ?[facility] ? Location: ?[facility] ?* Abnormal ??A Alert ??f Footnote ??^ Corrected ??L Low ??H High ?i Interp Data ??@ Ref Lab ? Chart Type:Cumulative ?* * * * MICROBIOLOGY - GENITAL * * * * ?PROCEDURE: Aerobic Culture, Genital and Gram Stain ? SOURCE: Penile ? COLLECTED: 03/11/14 ??1024 ?BODY SITE: ? STARTED: 03/11/14 ??1321 ? FREE TEXT SOURCE: ? DIRECT SPECIMEN EXAMINATION ? Stain ? REPORTED: 03/11/14 1452 ? Abundant polymorphonuclear leukocytes seen. ? Few Gram Positive Cocci ? FINAL REPORT ? REPORTED: 03/14/14 1457 ? Moderate Mixed microorganisms. Includes the following: Moderate ? Staphylococcus aureus Methicillin susceptible (MSSA) by ? penicillin binding protein 2a (PBP2a) testing. This isolate is ? presumed to be resistant to clindamycin based on detection of ? inducible clindamycin resistance. Clindamycin may still be ? effective in some patients. ? SUSCEPTIBILITY RESULTS ? Staphylococcus aureus ?SUSCEPTIBLE: Vancomycin, ? Trimethoprim with Sulfamethoxazole, ? Linezolid,Doxycycline,Oxacillin, ? Cefazolin,Ceftriaxone ?RESISTANT: Clindamycin,Erythromycin ? us Historical Provider MD LAB MICROBIOLOGY - GENERA L ORDERABLES Final Result HISTORICAL RESULTS documented in this encounter Visit Diagnoses Diagnosis Urethral discharge documented in this encounter Care Teams [employer] Manager Relationship Specialty Start Date End Date Mick Flowers MD PCP - General 09/19/13 10/31/15 documented as of this encounter
== END 2024-06-22 01:06 | disposition home or self-care (01) ==
PROVIDERS: Emergency Provider Physician Assistant; PCP Internal Medicine
DX: S01.112A Laceration without foreign body of left eyelid and periocular area, initial encounter (principal); G35 Multiple sclerosis; W01.0XXA Fall on same level from slipping, tripping and stumbling without subsequent striking against object, initial encounter
CPT/HCPCS: 12011; 99282